=== PATIENT | female | born 1950 | race Caucasian/White ===

== ENCOUNTER 2018-08-03 08:50 | Emergency (ER) | payer MEDICARE, BC, SELFPAY ==
[2018-08-03 08:54] VITALS: BP 116/44; PULSE 84; RESP 18; TEMP 36.5; O2SAT 90
--- NOTE | 2018-08-03 09:29 | DI.RAD_ITS ---
SYMPTOM/DIAGNOSIS: COUGH, SOB, ? PNEUMONIA CHEST: Comparison is made with 03/11/18. The heart size and pulmonary vasculature are within normal limits. Increased lung markings are present in the right base. This may represent atelectasis or developing pneumonia. The lungs are otherwise clear. The lungs are hyperinflated consistent with underlying COPD. No effusions or pneumothoraces are identified. The bones are intact. IMPRESSION: Question of a new right basilar infiltrate.
--- NOTE | 2018-08-03 09:30 | W.ED.GENAD ---
Discharge Plan Disposition Patient Disposition: HOME Condition: Improving Discharge Details Chief Complaint: RespSymp Clinical Impression: Pneumonia Primary Care Provider: María Mendoza ED Provider: Roxana Whittington Home Meds and New Rx's Prescriptions: New prednisone 50 mg tablet 50 mg PO DAILY 2 Days Qty: 2 RF: 0 levofloxacin [Levaquin] 750 mg tablet 750 mg PO DAILY 4 Days Qty: 4 RF: 0 Continue cetirizine 10 mg tablet 10 mg PO DAILY Qty: 90 RF: 3 methylprednisolone [Medrol (José)] 4 mg tablets,dose pack See Label Instructions .Route .COMPLEX Qty: 21 RF: 0 cyclobenzaprine 5 mg tablet 5 mg PO TID PRN (Reason: muscle spasm) Qty: 20 RF: 0 Oxygen EACH NS At Night Qty: 2 RF: 0 multivitamin [Daily Multi-Vitamin] 1 EACH tablet 1 ea PO DAILY RF: 0 lidocaine [LC-5] 45 GM cream 1 film Topical 2-4 times daily PRN Qty: 1 RF: 3 albuterol sulfate [ProAir HFA] 8.5 GM HFA aerosol inhaler 1 puff Inhalation Q4H PRN Qty: 2 RF: 3 Lactobac #2-Bifido #1-S. therm [VSL#3] 1 EACH capsule 2 packet PO DAILY Qty: 60 RF: 0 hydrochlorothiazide 50 MG tablet 50 mg PO QAM Qty: 90 RF: 3 lancets [Sure Comfort Lancets] 1 EACH misc 1 ea Miscellaneous DAILY Qty: 1 RF: 3 acetaminophen 500 MG tablet 1,000 mg PO TID PRNQty: 90 RF: 0 budesonide-formoterol [Symbicort] 10.2 GM HFA aerosol inhaler 2 puff Inhalation BID Qty: 3 RF: 3 zinc oxide 28 GM ointment 28 gm Topical QID Qty: 1 RF: 1 empagliflozin [Jardiance] 10 MG tablet 10 mg PO DAILY Qty: 90 RF: 3 calcium carbonate-vitamin D3 1 EACH tablet 2 tab-cap PO DAILY Qty: 180 RF: 3 magnesium oxide 400 MG tablet 800 mg PO BID Qty: 360 RF: 3 montelukast [Singulair] 10 MG tablet 10 mg PO DAILY Qty: 90 RF: 3 Varicella-Zoster Ge/As01b/Pf [Shingrix Vial Kit] 50 MCG INJ 50 mcg IM ONCE Qty: 1 RF: 1 umeclidinium [Incruse Ellipta] 62.5 MCG blister with device 62.5 mcg Inhalation DAILY Qty: 3 RF: 3 irbesartan 300 MG tablet 300 mg PO DAILY Qty: 90 RF: 3 blood sugar diagnostic [FreeStyle Lite Strips] 1 EACH strip 1 ea Miscellaneous BID Qty: 180 RF: 3 cyanocobalamin (vitamin B-12) 1,000 mcg tablet 1,000 mcg PO DAILY Qty: 90 RF: 3 ferrous sulfate 325 mg (65 mg iron) tablet See Label Instructions PO .COMPLEX Qty: 270 RF: 3 rosuvastatin [Crestor] 20 mg tablet 20 mg PO DAILY Qty: 90 RF: 0 atenolol 100 mg tablet 100 mg PO DAILY Qty: 30 RF: 11 glipizide 10 mg tablet 10 mg PO AC MDD 15 mg Qty: 90 RF: 3 glipizide 5 mg tablet 5 mg PO AC MDD 15 mg Qty: 90 RF: 3 ipratropium-albuterol [Combivent Respimat] 20-100 mcg/actuation mist 1 - 2 puff Inhalation .Q4-6H PRN (Reason: shortness of breath or wheezing) Qty: 1 RF: 3 metformin 1,000 mg tablet 1,000 mg PO BID Qty: 180 RF: 3 omeprazole 20 mg capsule,delayed release(DR/EC) 20 mg PO DAILY Qty: 90 RF: 3 aspirin [Aspir-81] 81 MG tablet,delayed release (DR/EC) 81 mg PO DAILY Qty: 90 RF: 3 Discharge Instructions Instructions: Pneumonia (ED) Additional Instructions: Take the antibiotics and steroids until finished. Drink plenty of fluids and get plenty of rest. Use your inhalers that you have at home as needed and directed for any shortness of breath. Follow-up with your primary care doctor in 3 days for reevaluation. Return immediately to the emergency department any worsening or new concerning symptoms. Discharge Data Discharge Date/Time-TO BE ENTERED AT DEPARTURE: 08/03/18 10:54 Discharge Physician: Roxana Whittington Medical Decision Making 67-year-old female with a history of COPD on 3 L nasal cannula at night with a baseline oxygen saturation of 88-90% on room air presents for cough and body aches for the past week. Also admits to occasional shortness of breath. Denies any known fever or chest pain. No other DVT/PE risk factors. Admits to sick contacts with grandkids recently. Oxygen saturation 90-93% on room air. Scattered rhonchi throughout. No wheezing. Patient is nontoxic and in no acute respiratory distress but is noted to be coughing frequently. Will give a DuoNeb, p.o. prednisone, and send for chest x-ray. 1040 -- Pt feels much better and is requesting to go home. Lung sounds improved after DuoNeb. Oxygen saturation 88-90% which is patient's baseline on room air. Chest x-ray notes a right basilar bronchopneumonia. Patient is allergic to Zithromax. Due to comorbidities of COPD and diabetes, will treat with Levaquin. Patient was informed of the possible adverse side effects of Levaquin including tendon rupture and tendinopathy and is agreeable with plan for Levaquin at this time. Dose of Levaquin given here and prescription for home. Patient was also given 2 days more of prednisone. She was instructed to watch her sugar due to side effects of hyperglycemia with steroids. Patient is instructed to call her primary care doctor tomorrow to schedule follow-up appointment for reevaluation and to return here for worsening symptoms. Imaging Data Radiologic Study: Imaging: X-Ray Radiologist's impression: XR Chest, 2 Views EXAM DATE/TIME: 08/03/2018 9:31 AM CLINICAL HISTORY: 67 years old, female; Signs and symptoms; Other: Cough, SOB, R/O pneumonia TECHNIQUE: XR of the chest, 2 views. COMPARISON: CR CHEST 2 VIEWS PA,LAT 03/11/2018 2:58 PM FINDINGS: Lungs: Stable mild to moderate COPD . Mild right basilar bronchopneumonia which is new. Pleural space: Unremarkable. No pleural effusion. No pneumothorax. Heart/Mediastinum: Unremarkable. No cardiomegaly. Vasculature: Calcification of the thoracic aorta and/or great vessels consistent with atherosclerotic vessel disease. Bones/joints: Dextroscoliosis. IMPRESSION: 1. Stable mild to moderate COPD . 2. Mild right basilar bronchopneumonia which is new. HPI General Mode of arrival: ambulatory. Date/Time Provider Initiated Documentation: 08/03/18 09:18. Limitations to Documentation: no limitations. Information obtained by: patient. HPI Narrative: Patient is a 67-year-old female with a history of COPD on 3 L nasal cannula at nighttime with a baseline oxygen saturation of 88-90% on room air who presents for cough body aches for the past week. Patient states the cough started out dry and is now productive of green sputum. Patient states the cough is a symptom bothering her the most. She has been taking Tylenol and Robitussin. Patient admits to relief of body aches with the Tylenol. She denies any known fevers but states she has been hot and cold. She states she has been eating and drinking well. She denies any recent hospital admission, recent antibiotics, recent steroids, leg pain or swelling, recent surgery, or recent travel. She states she was exposed to her sick grandchildren at [facility] 10 days ago. Related Data Home Medications Medication Instructions Recorded Confirmed aspirin [Aspir-81] 81 mg PO DAILY #90 03/30/13 08/03/18 multivitamin [Daily Multi-Vitamin] 1 ea PO DAILY 03/19/17 08/03/18 lidocaine [LC-5] 1 film TOPICAL 2-4 times daily PRN 03/22/17 08/03/18 #1 tube albuterol sulfate [ProAir HFA] 1 puff INHALATION Q4H PRN #2 04/02/17 08/03/18 inhaler Lactobac #2-Bifido #1-S. therm 2 packet PO DAILY #60 packet 05/01/17 08/03/18 [VSL#3] hydrochlorothiazide 50 mg PO QAM #90 tab 06/12/17 08/03/18 lancets [Sure Comfort Lancets] #1 box 06/24/17 07/14/18 acetaminophen 1,000 mg PO TID PRN #90 tab-cap 12/16/17 08/03/18 budesonide-formoterol [Symbicort] 2 puff INHALATION BID #3 inhaler 12/16/17 08/03/18 zinc oxide 28 gm TOPICAL QID #1 tube 12/27/17 08/03/18 empagliflozin [Jardiance] 10 mg PO DAILY #90 tab-cap 02/19/18 08/03/18 calcium carbonate-vitamin D3 2 tab-cap PO DAILY #180 tab-cap 03/31/18 08/03/18 magnesium oxide 800 mg PO BID #360 tab-cap 03/31/18 08/03/18 montelukast [Singulair] 10 mg PO DAILY #90 tab-cap 03/31/18 08/03/18 umeclidinium [Incruse Ellipta] 62.5 mcg INHALATION DAILY #3 disk 04/02/18 08/03/18 irbesartan 300 mg PO DAILY #90 tab-cap 04/03/18 08/03/18 blood sugar diagnostic [FreeStyle #180 strip 04/24/18 07/14/18 Lite Strips] cyanocobalamin (vit B-12) 1,000 1,000 mcg PO DAILY #90 tab-cap 05/07/18 08/03/18 mcg tablet ferrous sulfate 325 mg (65 mg See Label Instructions PO .COMPLEX 05/08/18 08/03/18 iron) tablet #270 tab-cap rosuvastatin 20 mg tablet 20 mg PO DAILY #90 tab-cap 05/14/18 08/03/18 atenolol 100 mg tablet 100 mg PO DAILY #30 tab-cap 06/09/18 08/03/18 glipizide 10 mg tablet 10 mg PO AC #90 tab-cap MDD 15 mg 06/13/18 08/03/18 glipizide 5 mg tablet 5 mg PO AC #90 tab-cap MDD 15 mg 06/13/18 08/03/18 ipratropium 20 mcg-albuterol 100 1 - 2 puff INHALATION .Q4-6H PRN 06/19/18 08/03/18 mcg/actuation mist for inhalation #1 device cetirizine 10 mg tablet 10 mg PO DAILY #90 tab-cap 06/30/18 08/03/18 cyclobenzaprine 5 mg tablet 5 mg PO TID PRN #20 tab 07/14/18 07/14/18 methylprednisolone 4 mg tablets in See Label Instructions .ROUTE 07/14/18 08/03/18 a dose pack .COMPLEX #21 dose pk metformin 1,000 mg tablet 1,000 mg PO BID #180 tab-cap 07/21/18 08/03/18 omeprazole 20 mg capsule,delayed 20 mg PO DAILY #90 tab-cap 07/28/18 08/03/18 release levofloxacin [Levaquin] 750 mg PO DAILY 4 Days #4 tab 12/02/18 prednisone 50 mg PO DAILY 2 Days #2 tab 08/03/18 Previous Rx's Medication Instructions Recorded hydrochlorothiazide 50 mg PO QAM #90 tab 06/12/17 lancets [Sure Comfort Lancets] #1 box 06/24/17 budesonide-formoterol [Symbicort] 2 puff INHALATION BID #3 inhaler 12/16/17 zinc oxide 28 gm TOPICAL QID #1 tube 12/27/17 empagliflozin [Jardiance] 10 mg PO DAILY #90 tab-cap 02/19/18 calcium carbonate-vitamin D3 2 tab-cap PO DAILY #180 tab-cap 03/31/18 magnesium oxide 800 mg PO BID #360 tab-cap 03/31/18 montelukast [Singulair] 10 mg PO DAILY #90 tab-cap 03/31/18 umeclidinium [Incruse Ellipta] 62.5 mcg INHALATION DAILY #3 disk 04/02/18 irbesartan 300 mg PO DAILY #90 tab-cap 04/03/18 blood sugar diagnostic [FreeStyle #180 strip 04/24/18 Lite Strips] cyanocobalamin (vit B-12) 1,000 1,000 mcg PO DAILY #90 tab-cap 05/07/18 mcg tablet ferrous sulfate 325 mg (65 mg See Label Instructions PO .COMPLEX 05/08/18 iron) tablet #270 tab-cap rosuvastatin 20 mg tablet 20 mg PO DAILY #90 tab-cap 05/14/18 atenolol 100 mg tablet 100 mg PO DAILY #30 tab-cap 06/09/18 glipizide 10 mg tablet 10 mg PO AC #90 tab-cap MDD 15 mg 06/13/18 glipizide 5 mg tablet 5 mg PO AC #90 tab-cap MDD 15 mg 06/13/18 ipratropium 20 mcg-albuterol 100 1 - 2 puff INHALATION .Q4-6H PRN 06/19/18 mcg/actuation mist for inhalation #1 device cetirizine 10 mg tablet 10 mg PO DAILY #90 tab-cap 06/30/18 cyclobenzaprine 5 mg tablet 5 mg PO TID PRN #20 tab 07/14/18 methylprednisolone 4 mg tablets in See Label Instructions .ROUTE 07/14/18 a dose pack .COMPLEX #21 dose pk metformin 1,000 mg tablet 1,000 mg PO BID #180 tab-cap 07/21/18 omeprazole 20 mg capsule,delayed 20 mg PO DAILY #90 tab-cap 07/28/18 release levofloxacin [Levaquin] 750 mg PO DAILY 4 Days #4 tab 08/03/18 prednisone 50 mg PO DAILY 2 Days #2 tab 08/03/18 Allergies Allergy/AdvReac Type Severity Reaction Status Date / Time propylene glycol Allergy Severe Rash Verified 08/03/18 08:59 alendronate sodium Allergy Unknown Hives Verified 08/03/18 08:59 adhesive tape Allergy Skin Rash Verified 08/03/18 08:59 azithromycin AdvReac Intermediate dry heaves Verified 08/03/18 08:59 and diarrhea hydrocodone bitartrate AdvReac Intermediate Nausea Verified 08/03/18 08:59 [From Vicodin] oxycodone HCl [From Percocet] AdvReac Unknown NAUSEA/VOMI Verified 08/03/18 08:59 TING LANDON Inhibitors AdvReac COUGH,DYSPN Verified 08/03/18 08:59 EA fragranced creams Allergy Intermediate Skin Rash Uncoded 08/03/18 08:59 parabin wax Allergy Intermediate Skin Rash Uncoded 08/03/18 08:59 General Stated Complaint: RespSymp BRUNA: 3 Review of Systems Review of Systems All systems reviewed & are unremarkable except as noted in HPI and below Constitutional Reports body ache(s), Denies chills, Denies excessive sweating, Denies fatigue, Denies fever(s), Denies weakness and Denies weight loss Eyes Reports system reviewed and no additional complaints, except as docu and Denies blurry vision ENT Denies vertigo, Denies dizziness, Denies otalgia, Denies nasal congestion, Denies sore throat and Denies throat swelling Cardiovascular Denies chest pain, Denies syncope, Denies rapid heart rate and Reports dyspnea Respiratory Reports cough, Reports excessive phlegm production and Reports dyspnea Gastrointestinal Denies abdominal pain, Denies diarrhea and Denies vomiting Genitourinary Denies hematuria, Denies dysuria and Denies flank pain Musculoskeletal Denies back pain and Denies joint swelling Integumentary/Breasts Denies lesions and Denies rash Neurologic Denies behavioral changes, Denies confusion, Denies vertigo, Denies dizziness, Denies syncope and Denies weakness Psychiatric Denies behavioral changes, Denies confusion and Denies depression Endocrine Denies excessive sweating and Denies fatigue Hematologic/Lymphatic Denies easy bruising and Denies lymphadenopathy Allergic/Immunologic Denies throat swelling PFSH H/O laminectomy (Resolved) Allergic rhinitis Anemia Breast CA COPD (chronic obstructive pulmonary disease) HLD (hyperlipidemia) HTN (hypertension) Family History Sister Breast cancer Mother Alzheimer's dementia Father Alcohol abuse Cirrhosis Sister Neoplasm Sister Heart disease Brother Heart disease H/O laminectomy (Acute ~10/06/12) Biopsy, Lymph Node (~2003) Breast, Lumpectomy (~2003) Extraction of cataract Oophrectomy, Right (~2007) Tooth Extractions Family History Sister Breast cancer Mother Alzheimer's dementia Father Alcohol abuse Cirrhosis Sister Neoplasm Sister Heart disease Brother Heart disease Medical History H/O laminectomy (Resolved) Allergic rhinitis Anemia Breast CA COPD (chronic obstructive pulmonary disease) HLD (hyperlipidemia) HTN (hypertension) Social History adopted: No foster care: No household members: spouse number of children: 4 current occupational status: retired pets and animals: No frequency: 3-4 times per week duration: < 15 minutes/day Smoking/Tobacco Use Status: Former Tobacco Use quit date: 09/02/00 pack-years: 37 alcohol intake: former details: none substance use type: does not use jon/yazidism: Advent seatbelt use: always 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 working smoke detector in home: Yes fire extinguisher in home: Yes carbon monox detector in home: Yes Surgical History H/O laminectomy (Acute ~10/06/12) Biopsy, Lymph Node (~2003) Breast, Lumpectomy (~2003) Extraction of cataract Oophrectomy, Right (~2007) Tooth Extractions Social History adopted: No foster care: No household members: spouse number of children: 4 current occupational status: retired pets and animals: No frequency: 3-4 times per week duration: < 15 minutes/day Smoking/Tobacco Use Status: Former Tobacco Use quit date: 09/02/00 pack-years: 37 alcohol intake: former details: none substance use type: does not use jon/yazidism: Advent seatbelt use: always 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 working smoke detector in home: Yes fire extinguisher in home: Yes carbon monox detector in home: Yes Exam Const General: cooperative and healthy appearing Orientation: alert and awake HENMT Head: normal to inspection Ears: hearing grossly normal bilaterally, external ears normal and TM's normal bilaterally General nose exam: nasal discharge clear (some white) bilaterally Face and sinus: normal facial exam Mouth: oral mucosae normal Teeth and gingiva: dentition normal Throat: posterior oropharynx normal Eyes General: appearance normal, both eyes and all related structures Eyelids: eyelids normal EOM: EOM intact bilaterally Neck Neck: normal visual inspection Lymphatic: no lymphadenopathy noted Chest Chest: normal inspection of the chest Resp Effort & Inspection: normal respiratory effort and able to speak in complete sentences Auscultation: rhonchi upper bilaterally and lower bilaterally and no wheezes Cardio Rate: regular rate Rhythm: regular rhythm GI Inspection: normal to inspection Skin General skin exam: no rashes or lesions noted Neuro General: alert and awake Cognition: normal cognition Speech: speech normal Gait: normal gait Motor: muscle tone normal throughout Sensory Exam: no sensory deficits noted Extrem General: normal to inspection and full ROM Psych Appearance: grossly normal Mental Status: mental status grossly normal Speech and Movement: speech and movement normal Affect: normal affect Thought Process: normal Course Vital Signs Temperature 97.7 F 08/03/18 08:54 Pulse 84 08/03/18 08:54 Respiratory Rate 18 08/03/18 08:54 Blood Pressure 116/44 L 08/03/18 08:54 Pulse Oximetry 90 L 08/03/18 08:54 Temperature 97.7 F 08/03/18 08:54 Temperature Source Temporal Artery Scan 08/03/18 08:54 Pulse 84 08/03/18 08:54 Respiratory Rate 18 08/03/18 08:54 Respiratory Effort Non-Labored 08/03/18 09:23 Respiratory Depth Normal 08/03/18 09:23 Blood Pressure 116/44 L 08/03/18 08:54 Blood Pressure Position Sitting 08/03/18 08:54 Pulse Oximetry 90 L 08/03/18 08:54 Oxygen Delivery Method Room Air 08/03/18 08:54 Oxygen Flow Rate 0 08/03/18 08:54 Pain Level 0 08/03/18 08:54
[2018-08-03] MEDS: Albuterol/Ipratropium 3 ML UPD VIAL UPD (09:35)
[2018-08-03] MEDS: predniSONE 20 MG TAB 60 MG PO (09:36)
[2018-08-03 10:05] VITALS: RESP 1
--- NOTE | 2018-08-03 10:19 | DI.VRAD_ITS ---
EXAM: XR Chest, 2 Views EXAM DATE/TIME: 08/03/2018 9:31 AM CLINICAL HISTORY: 67 years old, female; Signs and symptoms; Other: Cough, SOB, R/O pneumonia TECHNIQUE: XR of the chest, 2 views. COMPARISON: CR CHEST 2 VIEWS PA,LAT 03/11/2018 2:58 PM FINDINGS: Lungs: Stable mild to moderate COPD . Mild right basilar bronchopneumonia which is new. Pleural space: Unremarkable. No pleural effusion. No pneumothorax. Heart/Mediastinum: Unremarkable. No cardiomegaly. Vasculature: Calcification of the thoracic aorta and/or great vessels consistent with atherosclerotic vessel disease. Bones/joints: Dextroscoliosis. IMPRESSION: 1. Stable mild to moderate COPD . 2. Mild right basilar bronchopneumonia which is new. Dictated and Authenticated by: Greyson Roland MD. Ordering:ZENAIDA OPE MD
[2018-08-03 10:33] VITALS: PULSE 94; O2SAT 88
[2018-08-03] MEDS: LEVOFLOXACIN 500 MG, LEVOFLOXACIN 250 MG 750 MG PO (10:43)
[2018-08-03 10:46] VITALS: BP 108/48
== END 2018-08-03 10:54 | disposition home or self-care (01) ==
LOC: ER 10:58
PROVIDERS: Emergency Provider Physician Assistant; PCP Nurse Practitioner Family
DX: J18.9 Pneumonia, unspecified organism (principal); J44.9 Chronic obstructive pulmonary disease, unspecified; Z87.891 Personal history of nicotine dependence; E11.9 Type 2 diabetes mellitus without complications; Z79.84 Long term (current) use of oral hypoglycemic drugs; I10 Essential (primary) hypertension
CPT/HCPCS: 94640; 99283; 71046; J7512; J7620

== ENCOUNTER 2018-09-29 00:27 | Outpatient (CLI) | payer MEDICARE, BC, SELFPAY ==
--- NOTE | 2018-09-29 07:51 | DI.RAD_ITS ---
SYMPTOM/DIAGNOSIS: 8 WEEK F/U RT BASILAR PNA, PNEUMONIA J18.9 PA AND LATERAL CHEST: The heart size is normal. The lungs appear clear. No infiltrate or effusion is seen. There is an old fracture in the upper lumbar spine. IMPRESSION: Clearing of previously noted infiltrate.
[2018-09-29 09:10] LABS: Absolute Basophil Count 0.01 k/cumm (0.0-0.2); Absolute Eosinophil Count 0.14 k/cumm (0.0-0.7); Absolute Lymphocyte Count 0.75 k/cumm (1.2-3.4); Absolute Monocyte Count 0.31 k/cumm (0.11-0.7); Absolute Neutrophil Count 2.67 k/cumm (1.2-6.7); Basophils % 0.3; Eosinophils % 3.6; HCT 39.1 % (36.0-46.0); HGB 11.9 g/dL (12.0-15.5); Lymphocytes % 19.3; Mean Corp. HGB Concentration 30.4 g/dL (32.0-36.0); Mean Corpuscular Hemoglobin 29.1 pg (27.0-33.0); Mean Corpuscular Volume 95.6 fL (80-95); Mean Platelet Volume 8.6 fL (8.0-11.0); Neutrophils % 68.8; Platelet Count 297 x1000/uL (130-400); RBC 4.09 m/cumm (4.00-5.20); RBC Distribution Width 15.2 % (11.7-14.6); White Blood Cell Count 3.88 k/cumm (4.4-10.8)
[2018-09-29 09:44] LABS: Hemoglobin A1C 7.5 % (4.5-6.2)
[2018-09-29 09:52] LABS: COMMENT (LAB VIEW ONLY) 75.98 mg/dL; Microalb ug/mg Crea 31.7 ug/mg Cr
[2018-09-29 10:09] LABS: ALT 26 U/L (12-78); AST 18 U/L (15-37); Albumin 3.5 g/dL (3.4-5.0); Alkaline Phosphatase 58 U/L (46-116); BUN 20 mg/dL (7-18); Bilirubin, Total 0.4 mg/dL (0.2-1.0); Calcium 9.5 mg/dL (8.5-10.1); Chloride 100 mmol/L (98-107); Cholesterol 122 mg/dL (50-200); Estimated GFR 49.25 (mL/min/1.73m2); Glucose 132 mg/dL (70-100); HDL Cholesterol 64 mg/dL (40-60); LDL CHOLESTEROL 40 mg/dL (<100); Potassium 4.4 mmol/L (3.5-5.1); Sodium 139 mmol/L (136-145); Total Protein 7.1 g/dL (6.4-8.2); Triglyceride 171 mg/dL (30-150)
== END 2018-09-29 00:47 ==
PROVIDERS: PCP Nurse Practitioner Family; Visit Provider Nurse Practitioner Family
DX: D50.9 Iron deficiency anemia, unspecified (principal); E11.22 Type 2 diabetes mellitus with diabetic chronic kidney disease; E78.5 Hyperlipidemia, unspecified; J18.9 Pneumonia, unspecified organism
CPT/HCPCS: 36415; 80053; 80061; 83721; 71046; 82043; 82570; 83036; 85025

== ENCOUNTER 2018-10-01 09:28 | Outpatient (CLI) | payer MEDICARE, BC, SELFPAY ==
[2018-10-01 18:37] LABS: Vitamin B12 431 pg/mL (193-986)
[2018-10-02 10:10] LABS: Folate >24.0 ng/ml
[2018-10-04 16:18] LABS: Erythropoietin 63.5 mIU/mL (2.6 - 18.5)
== END 2018-10-01 09:48 ==
PROVIDERS: PCP Nurse Practitioner Family; Visit Provider Nurse Practitioner Family
DX: D53.9 Nutritional anemia, unspecified (principal); D50.9 Iron deficiency anemia, unspecified
CPT/HCPCS: 36415; 82668; 82607; 82746

== ENCOUNTER 2018-10-13 00:59 | Outpatient (CLI) | payer MEDICARE, BC, SELFPAY ==
--- NOTE | 2018-10-13 11:00 | DI.MAMMO_ITS ---
SYMPTOM/DIAGNOSIS: SCREENING, Z12.31, PERSONAL H/O BREAST CA Z85.3 MAMMOGRAMS: Comparison with prior examinations. Mammograms were interpreted according to the usual protocol including computer analysis with CAD system, tomosynthesis and C view imaging. Breast density B, no suspicious masses or microcalcifications are seen. There has been no significant change when compared to the prior examination. The patient is status post bilateral breast cancer. IMPRESSION: No evidence for malignancy. Yearly mammography is recommended. Category 2-B. MQSA ASSESSMENT OF FINDINGS: Negative with benign findings. Category 2. Patient will receive a letter notifying them of these results. BI-RADS category B. There are scattered areas of fibroglandular density.
== END 2018-10-13 01:19 ==
PROVIDERS: PCP Nurse Practitioner Family; Visit Provider Nurse Practitioner Family
DX: Z12.31 Encounter for screening mammogram for malignant neoplasm of breast (principal); Z85.3 Personal history of malignant neoplasm of breast
CPT/HCPCS: 77063; 77067

== ENCOUNTER 2019-01-19 13:55 | Outpatient (CLI) | payer MEDICARE, BC, SELFPAY ==
[2019-01-19 14:20] LABS: Absolute Basophil Count 0.03 k/cumm (0.0-0.2); Absolute Lymphocyte Count 1.13 k/cumm (1.2-3.4); Absolute Monocyte Count 0.39 k/cumm (0.11-0.7); Absolute Neutrophil Count 2.58 k/cumm (1.2-6.7); Basophils % 0.7; Eosinophils % 4.6; HCT 35.3 % (36.0-46.0); HGB 11.3 g/dL (12.0-15.5); Lymphocytes % 26.1; Mean Corpuscular Hemoglobin 30.6 pg (27.0-33.0); Mean Corpuscular Volume 95.7 fL (80-95); Mean Platelet Volume 8.2 fL (8.0-11.0); Neutrophils % 59.6; Platelet Count 281 x1000/uL (130-400); RBC 3.69 m/cumm (4.00-5.20); RBC Distribution Width 15.3 % (11.7-14.6); Reticulocyte 1.9 % (0.5-2.4); White Blood Cell Count 4.33 k/cumm (4.4-10.8)
== END 2019-01-19 14:15 ==
PROVIDERS: PCP Nurse Practitioner Family; Visit Provider Nurse Practitioner Family
DX: D64.9 Anemia, unspecified (principal); D50.9 Iron deficiency anemia, unspecified
CPT/HCPCS: 85025; 85045

== ENCOUNTER 2019-02-15 09:06 | Emergency (ER) | payer MEDICARE, BC, SELFPAY ==
--- NOTE | 2019-02-15 09:12 | W.ED.GENAD ---
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 Clinical Impression: Vulvovaginitis Primary Care Provider: María Mendoza ED Provider: Debi Sylvester Home Meds and New Rx's Prescriptions: New fluconazole 150 mg tablet 150 mg PO ONCE Qty: 2 RF: 0 Continued Incruse Ellipta 62.5 mcg/actuation blister with device 62.5 mcg Inhalation DAILY Qty: 3 RF: 3 rosuvastatin [Crestor] 20 mg tablet 20 mg PO DAILY Qty: 90 RF: 3 cetirizine 10 mg tablet 10 mg PO DAILY Qty: 90 RF: 3 ferrous sulfate 325 mg (65 mg iron) tablet See Rx Instructions PO .COMPLEX Qty: 270 RF: 3 cyclobenzaprine 5 mg tablet 5 mg PO TID PRN (Reason: muscle spasm) Qty: 20 RF: 0 nebulizer and compressor device .ROUTE .MEDSUPPLY Qty: 1 RF: 0 albuterol sulfate 2.5 mg /3 mL (0.083 %) solution for nebulization 2.5 mg IH QID PRN (Reason: bronchospasm) Qty: 180 RF: 6 Jardiance 25 mg tablet 25 mg PO DAILY AM Qty: 90 RF: 3 betamethasone dipropionate 0.05 % ointment 1 applic TP BID PRN (Reason: rash) Qty: 45 RF: 1 Oxygen EACH NS At Night Qty: 2 RF: 0 multivitamin [Daily Multi-Vitamin] 1 EACH tablet 1 ea PO DAILY RF: 0 lidocaine [LC-5] 45 GM cream 1 film Topical 2-4 times daily PRN Qty: 1 RF: 3 albuterol sulfate [ProAir HFA] 8.5 GM HFA aerosol inhaler 1 puff Inhalation Q4H PRN Qty: 2 RF: 3 VSL#3 1 EACH capsule 2 packet PO DAILY Qty: 60 RF: 0 lancets [Sure Comfort Lancets] 1 EACH misc 1 ea Miscellaneous DAILY Qty: 1 RF: 3 acetaminophen 500 MG tablet 1,000 mg PO TID PRNQty: 90 RF: 0 zinc oxide 28 GM ointment 28 gm Topical QID Qty: 1 RF: 1 calcium carbonate-vitamin D3 1 EACH tablet 2 tab-cap PO DAILY Qty: 180 RF: 3 magnesium oxide 400 MG tablet 800 mg PO BID Qty: 360 RF: 3 montelukast [Singulair] 10 MG tablet 10 mg PO DAILY Qty: 90 RF: 3 Varicella-Zoster Ge/As01b/Pf [Shingrix Vial Kit] 50 MCG INJ 50 mcg IM ONCE Qty: 1 RF: 1 FreeStyle Lite Strips 1 EACH strip 1 ea Miscellaneous BID Qty: 180 RF: 3 cyanocobalamin (vitamin B-12) 1,000 mcg tablet 1,000 mcg PO DAILY Qty: 90 RF: 3 atenolol 100 mg tablet 100 mg PO DAILY Qty: 30 RF: 11 metformin 1,000 mg tablet 1,000 mg PO BID Qty: 180 RF: 3 omeprazole 20 mg capsule,delayed release(DR/EC) 20 mg PO DAILY Qty: 90 RF: 3 hydrochlorothiazide 50 mg tablet 50 mg PO QAM Qty: 90 RF: 3 Symbicort 160-4.5 mcg/actuation HFA aerosol inhaler 2 puff Inhalation BID Qty: 3 RF: 3 Combivent Respimat 20-100 mcg/actuation mist 1 - 2 puff Inhalation .Q4-6H PRN (Reason: shortness of breath or wheezing) Qty: 3 RF: 3 glipizide 10 mg tablet See Rx Instructions PO AC MDD 25 mg Qty: 180 RF: 3 fluocinonide 0.05 % solution 1 applic TP BID Qty: 20 RF: 0 glipizide 5 mg tablet 5 mg PO QAM Qty: 90 RF: 3 valsartan 320 mg tablet 320 mg PO DAILY Qty: 90 RF: 3 aspirin [Aspir-81] 81 MG tablet,delayed release (DR/EC) 81 mg PO DAILY Qty: 90 RF: 3 Discharge Instructions Instructions: Vaginitis (ED) Additional Instructions: Encourage hydration. Please avoid irritants to the external genitalia, you may use barrier cream if you find this helpful but please use non-fragrance creams, read the ingredients carefully regarding your allergies. Please take fluconazole as prescribed. Please follow-up with primary care at the end of the week for reevaluation. If you develop fever/chills, abdominal pain or other new/worsening symptoms please seek care urgently once again Referrals: María Mendoza NP [Primary Care Provider] - Discharge Data Discharge Date/Time-TO BE ENTERED AT DEPARTURE: 02/15/19 10:01 Medical Decision Making Patient is a 68-year-old female presenting today with chief complaint of vulvovaginitis. Reports that she is had a multitude of yeast infections in the past, last of which question 1 year ago. Reports she is tried [id number] treatment thus far has been unsuccessful. States that she has been allergic to some of their components and is felt that these have made her symptoms worse. States she has had some white discharge but is also been using a thick white-cream externally and is concerned that she may not be visualized this appropriately. Denies any abdominal pain. No fevers or chills. No dysuria. No change in urinary or bowel habits. States that she has failed topical therapy historically and has had to go to oral therapy. Feels that this feels the same as previous yeast infections but has less discharge. Will preform exam. VS 36.4*C, 89%RA (baseline for patient secondary to COPD), 66P, 144/55. Abdomen is benign she appears nontoxic. External labia is quite inflamed. It is tender to palpation, she cannot tolerate intravaginal exam. There is a scant amount of white discharge at the vaginal opening. This was swabbed and sent for vaginal pack screening. I did discuss with the patient that she may be a good candidate for topical estrogen therapy. She will follow-up with her primary care at the end of the week for reevaluation and discuss this further. Patient will be placed on oral fluconazole. She prefers empiric treatment at this time over staying for pathology results. Encourage hydration. She was given strict return precautions. Advised to follow-up with primary care this week if not improving. All other questions and concerns were addressed and she is in agreement this plan. Patient does have multiple allergies, particularly topical substances, advised that this also may be playing part in her external irritation and advised that she try something more benign should she feel that she needs a cream externally HPI General Mode of arrival: ambulatory. Date/Time Provider Initiated Documentation: 02/15/19 09:11. Limitations to Documentation: no limitations. Information obtained by: patient and RN notes reviewed. History of Present Illness 68 year old F presents to the emergency department with the chief complaint of vulvovaginitis, described as moderate (denies pain, endorses itching and irritation), and is localized to the genitals. Patient reports no radiation. Patient started experiencing this day(s) (4) and it has been constant. No relieving factors improve symptom(s), No exacerbating factors reported . Patient notes rash (has noted erythema); denies chest pain, cough, fever/chills, loss of appetite, nausea/vomiting, shortness of breath and weakness. Patient did receive the following treatments prior to arrival, other (OTC intravaginal treatment) Related Data Home Medications Medication Instructions Recorded Confirmed aspirin [Aspir-81] 81 mg PO DAILY #90 03/30/13 01/05/19 multivitamin [Daily Multi-Vitamin] 1 ea PO DAILY 03/19/17 01/05/19 lidocaine [LC-5] 1 film TOPICAL 2-4 times daily PRN 03/22/17 01/05/19 #1 tube albuterol sulfate [ProAir HFA] 1 puff INHALATION Q4H PRN #2 04/02/17 01/05/19 inhaler VSL#3 2 packet PO DAILY #60 packet 05/01/17 01/05/19 lancets [Sure Comfort Lancets] #1 box 06/24/17 01/05/19 acetaminophen 1,000 mg PO TID PRN #90 tab-cap 12/16/17 01/05/19 zinc oxide 28 gm TOPICAL QID #1 tube 12/27/17 01/05/19 calcium carbonate-vitamin D3 2 tab-cap PO DAILY #180 tab-cap 03/31/18 01/05/19 magnesium oxide 800 mg PO BID #360 tab-cap 03/31/18 01/05/19 montelukast [Singulair] 10 mg PO DAILY #90 tab-cap 03/31/18 01/05/19 FreeStyle Lite Strips #180 strip 04/24/18 01/05/19 cyanocobalamin (vit B-12) 1,000 1,000 mcg PO DAILY #90 tab-cap 05/07/18 01/05/19 mcg tablet atenolol 100 mg tablet 100 mg PO DAILY #30 tab-cap 06/09/18 01/05/19 cetirizine 10 mg tablet 10 mg PO DAILY #90 tab-cap 06/30/18 01/05/19 cyclobenzaprine 5 mg tablet 5 mg PO TID PRN #20 tab 07/14/18 01/05/19 metformin 1,000 mg tablet 1,000 mg PO BID #180 tab-cap 07/21/18 01/05/19 omeprazole 20 mg capsule,delayed 20 mg PO DAILY #90 tab-cap 07/28/18 01/05/19 release hydrochlorothiazide 50 mg tablet 50 mg PO QAM #90 tab 08/11/18 01/05/19 albuterol sulfate 2.5 mg/3 mL 2.5 mg IH QID PRN #180 ml 08/21/18 01/05/19 (0.083 %) solution for nebulization nebulizer and compressor #1 each 08/21/18 01/05/19 ferrous sulfate 325 mg (65 mg See Rx Instructions PO .COMPLEX 10/01/18 01/05/19 iron) tablet #270 tab-cap budesonide-formoterol HFA 160 2 puff INHALATION BID #3 inhaler 10/15/18 01/05/19 mcg-4.5 mcg/actuation aerosol inhaler ipratropium 20 mcg-albuterol 100 1 - 2 puff INHALATION .Q4-6H PRN 10/17/18 01/05/19 mcg/actuation mist for inhalation #3 device glipizide 10 mg tablet See Rx Instructions PO AC #180 10/27/18 01/05/19 tab-cap MDD 25 mg betamethasone dipropionate 0.05 % 1 applic TP BID PRN #45 gm 11/26/18 01/05/19 topical ointment fluocinonide 0.05 % topical 1 applic TP BID #20 ml 12/01/18 01/05/19 solution empagliflozin 25 mg tablet 25 mg PO DAILY AM #90 tab-cap 01/05/19 01/05/19 glipizide 5 mg tablet 5 mg PO QAM #90 tab 01/09/19 rosuvastatin 20 mg tablet 20 mg PO DAILY #90 tab-cap 01/19/19 01/19/19 umeclidinium 62.5 mcg/actuation 62.5 mcg INHALATION DAILY #3 disk 01/19/19 01/19/19 blister powder for inhalation valsartan 320 mg tablet 320 mg PO DAILY #90 tab-cap 01/29/19 fluconazole 150 mg PO ONCE #2 tab 02/15/19 Previous Rx's Medication Instructions Recorded lancets [Sure Comfort Lancets] #1 box 06/24/17 zinc oxide 28 gm TOPICAL QID #1 tube 12/27/17 calcium carbonate-vitamin D3 2 tab-cap PO DAILY #180 tab-cap 03/31/18 magnesium oxide 800 mg PO BID #360 tab-cap 03/31/18 montelukast [Singulair] 10 mg PO DAILY #90 tab-cap 03/31/18 FreeStyle Lite Strips #180 strip 04/24/18 cyanocobalamin (vit B-12) 1,000 1,000 mcg PO DAILY #90 tab-cap 05/07/18 mcg tablet atenolol 100 mg tablet 100 mg PO DAILY #30 tab-cap 06/09/18 cetirizine 10 mg tablet 10 mg PO DAILY #90 tab-cap 06/30/18 cyclobenzaprine 5 mg tablet 5 mg PO TID PRN #20 tab 07/14/18 metformin 1,000 mg tablet 1,000 mg PO BID #180 tab-cap 07/21/18 omeprazole 20 mg capsule,delayed 20 mg PO DAILY #90 tab-cap 07/28/18 release hydrochlorothiazide 50 mg tablet 50 mg PO QAM #90 tab 08/11/18 albuterol sulfate 2.5 mg/3 mL 2.5 mg IH QID PRN #180 ml 08/21/18 (0.083 %) solution for nebulization nebulizer and compressor #1 each 08/21/18 ferrous sulfate 325 mg (65 mg See Rx Instructions PO .COMPLEX 10/01/18 iron) tablet #270 tab-cap budesonide-formoterol HFA 160 2 puff INHALATION BID #3 inhaler 10/15/18 mcg-4.5 mcg/actuation aerosol inhaler ipratropium 20 mcg-albuterol 100 1 - 2 puff INHALATION .Q4-6H PRN 10/17/18 mcg/actuation mist for inhalation #3 device glipizide 10 mg tablet See Rx Instructions PO AC #180 10/27/18 tab-cap MDD 25 mg betamethasone dipropionate 0.05 % 1 applic TP BID PRN #45 gm 11/26/18 topical ointment fluocinonide 0.05 % topical 1 applic TP BID #20 ml 12/01/18 solution empagliflozin 25 mg tablet 25 mg PO DAILY AM #90 tab-cap 01/05/19 glipizide 5 mg tablet 5 mg PO QAM #90 tab 01/09/19 rosuvastatin 20 mg tablet 20 mg PO DAILY #90 tab-cap 01/19/19 umeclidinium 62.5 mcg/actuation 62.5 mcg INHALATION DAILY #3 disk 01/19/19 blister powder for inhalation valsartan 320 mg tablet 320 mg PO DAILY #90 tab-cap 01/29/19 fluconazole 150 mg PO ONCE #2 tab 02/15/19 Allergies Allergy/AdvReac Type Severity Reaction Status Date / Time propylene glycol Allergy Severe Rash Verified 11/26/18 10:01 adhesive tape Allergy Unknown Skin Rash Verified 11/26/18 10:01 alendronate sodium Allergy Unknown Hives Verified 11/26/18 10:01 azithromycin AdvReac Intermediate dry heaves Verified 11/26/18 10:01 and diarrhea hydrocodone bitartrate AdvReac Intermediate Nausea Verified 11/26/18 10:01 [From Vicodin] LANDON Inhibitors AdvReac Unknown COUGH,DYSPN Verified 11/26/18 10:01 EA oxycodone HCl [From Percocet] AdvReac Unknown NAUSEA/VOMI Verified 11/26/18 10:01 TING fragranced creams Allergy Intermediate Skin Rash Uncoded 11/26/18 10:01 parabin wax Allergy Intermediate Skin Rash Uncoded 11/26/18 10:01 General BRUNA: 3 Review of Systems Constitutional Reports as per HPI, Denies chills, Denies fatigue, Denies fever(s) and Denies headache(s) ENT Denies headache(s) Cardiovascular Reports as per HPI, Denies chest pain and Denies dyspnea Respiratory Reports as per HPI, Denies cough and Denies dyspnea Gastrointestinal Reports as per HPI, Denies abdominal pain, Denies change in stool character, Denies nausea and Denies vomiting Musculoskeletal Reports as per HPI and Denies back pain Integumentary/Breasts Reports as per HPI, Reports pruritus (vaginal), Reports erythema (external genitalia) and Denies rash Neurologic Reports as per HPI and Denies headache(s) Endocrine Denies fatigue [facility] Medical History Family history of breast cancer (Acute 11/14/15) Microalbuminuria due to type 2 diabetes mellitus (Chronic) Breast cancer (Resolved) Spinal stenosis (Chronic 02/04/14) Obstructive sleep apnea (Chronic 03/02/14) Reflux esophagitis (Chronic 07/16/12) Osteopenia (Chronic 02/14/16) Leg cramps (Chronic 04/01/14) Left renal artery stenosis (Chronic 08/30/16) Iron deficiency anemia (Chronic 01/02/17) Intraabdominal calcification (Chronic 11/14/15) Hypomagnesemia (Chronic 03/04/17) Hyperlipidemia (Chronic 03/18/07) Hiatal hernia (Chronic 02/11/14) Heart murmur (Chronic) Essential hypertension (Chronic 05/16/04) Diabetes mellitus (Chronic 11/27/04) DJD (degenerative joint disease) (Chronic 02/04/14) Coronary artery disease (Chronic 11/14/15) Chronic obstructive airway disease (Chronic 06/04/12) Chronic kidney disease (CKD) (Chronic) 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) Atherosclerosis of both carotid arteries (Chronic 11/12/16) Anemia (Chronic 02/11/14) Allergic rhinitis (Chronic) Headache (Chronic) Chronic GI bleeding (Chronic) Superior mesenteric artery stenosis (Chronic) Compression fracture of lumbar vertebra (Resolved 03/14/17) Depression (Resolved 11/30/02) H/O laminectomy (Resolved) Herniated lumbar intervertebral disc (Resolved 02/04/14) Pneumonia (Resolved) Solitary pulmonary nodule (Resolved 12/22/15) Breast CA Surgical History H/O laminectomy (Acute ~10/06/12) Biopsy, Lymph Node (Resolved ~2003) Breast, Lumpectomy (Resolved ~2003) Extraction of cataract (Resolved) Oophrectomy, Right (Resolved ~2007) Tooth Extractions (Resolved) Social History Smoking/Tobacco Use Status: Former Tobacco Use Quit Date: 09/02/00 Pack-years: 37 Tobacco: How many years used: 25 Alcohol Intake: former Details: none Drug use: Never Substance use type: does not use Adopted: No Caregiver/Support person: No Foster care: No Household members: spouse Number of Children: 4 Communication Needs: None Pets and animals: No Current gender identity: female What type of physical activity do you participate in: regular exercise Duration: < 15 minutes/day Frequency: 3-4 times per week Mell/Sabianist: Sikhism Seatbelt use: always Drive intox or ride w/intox commercial collections driver: No Working smoke detector in home: Yes Fire extinguisher in home: Yes Carbon monox detector in home: Yes Do you feel safe at home: Yes Do you feel safe in your relationship?: Yes Exam Const General: cooperative, healthy appearing, comfortable, no acute distress and well developed Nutritional Appearance: average body habitus and well nourished Orientation: alert and awake [facility] Head: normal to inspection Mouth: moist mucous membranes Resp Effort & Inspection: normal respiratory effort, able to speak in complete sentences and no respiratory distress Auscultation: clear to auscultation bilaterally, no rales, no rhonchi and no wheezes Cardio Rate: regular rate Rhythm: regular rhythm Heart Sounds: S1 normal and S2 normal GI Inspection: normal to inspection and non-distended Palpation: soft, no hepatosplenomegaly, no guarding, not rigid and nontender Percussion: normal to percussion Auscultation: normal bowel sounds External Female Exam: normal appearance of the urethra, erythema, externally tender bilaterally (diffuse tenderness, consistent with vulvovaginitis), external swelling, no lesions, no lacerations, no ecchymosis, No urethral discharge and No bartholin cyst Speculum Exam - Vagina: abnormal appearance of the vagina (patient unable to tolerate), No vaginal bleeding and other (patient has small amount of white fluid in vaginal opening) OB/External & Speculum: No vaginal bleeding Back/Spine/Pelvis Back: no CVA tenderness Skin General skin exam: no rashes or lesions noted Trauma: no lacerations or abrasions Neuro General: alert and awake Cognition: normal cognition Speech: speech normal Gait: normal gait Psych Appearance: grossly normal and well kempt Mental Status: mental status grossly normal Speech and Movement: speech and movement normal
--- NOTE | 2019-02-15 09:27 | ED.GENADUL_ITS ---
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 Clinical Impression: Vulvovaginitis Primary Care Provider: María Mendoza ED Provider: Debi Sylvester Home Meds and New Rx's Prescriptions: New fluconazole 150 mg tablet 150 mg PO ONCE Qty: 2 RF: 0 Continued Incruse Ellipta 62.5 mcg/actuation blister with device 62.5 mcg Inhalation DAILY Qty: 3 RF: 3 rosuvastatin [Crestor] 20 mg tablet 20 mg PO DAILY Qty: 90 RF: 3 cetirizine 10 mg tablet 10 mg PO DAILY Qty: 90 RF: 3 ferrous sulfate 325 mg (65 mg iron) tablet See Rx Instructions PO .COMPLEX Qty: 270 RF: 3 cyclobenzaprine 5 mg tablet 5 mg PO TID PRN (Reason: muscle spasm) Qty: 20 RF: 0 nebulizer and compressor device .ROUTE .MEDSUPPLY Qty: 1 RF: 0 albuterol sulfate 2.5 mg /3 mL (0.083 %) solution for nebulization 2.5 mg IH QID PRN (Reason: bronchospasm) Qty: 180 RF: 6 Jardiance 25 mg tablet 25 mg PO DAILY AM Qty: 90 RF: 3 betamethasone dipropionate 0.05 % ointment 1 applic TP BID PRN (Reason: rash) Qty: 45 RF: 1 Oxygen EACH NS At Night Qty: 2 RF: 0 multivitamin [Daily Multi-Vitamin] 1 EACH tablet 1 ea PO DAILY RF: 0 lidocaine [LC-5] 45 GM cream 1 film Topical 2-4 times daily PRN Qty: 1 RF: 3 albuterol sulfate [ProAir HFA] 8.5 GM HFA aerosol inhaler 1 puff Inhalation Q4H PRN Qty: 2 RF: 3 VSL#3 1 EACH capsule 2 packet PO DAILY Qty: 60 RF: 0 lancets [Sure Comfort Lancets] 1 EACH misc 1 ea Miscellaneous DAILY Qty: 1 RF: 3 acetaminophen 500 MG tablet 1,000 mg PO TID PRNQty: 90 RF: 0 zinc oxide 28 GM ointment 28 gm Topical QID Qty: 1 RF: 1 calcium carbonate-vitamin D3 1 EACH tablet 2 tab-cap PO DAILY Qty: 180 RF: 3 magnesium oxide 400 MG tablet 800 mg PO BID Qty: 360 RF: 3 montelukast [Singulair] 10 MG tablet 10 mg PO DAILY Qty: 90 RF: 3 Varicella-Zoster Ge/As01b/Pf [Shingrix Vial Kit] 50 MCG INJ 50 mcg IM ONCE Qty: 1 RF: 1 FreeStyle Lite Strips 1 EACH strip 1 ea Miscellaneous BID Qty: 180 RF: 3 cyanocobalamin (vitamin B-12) 1,000 mcg tablet 1,000 mcg PO DAILY Qty: 90 RF: 3 atenolol 100 mg tablet 100 mg PO DAILY Qty: 30 RF: 11 metformin 1,000 mg tablet 1,000 mg PO BID Qty: 180 RF: 3 omeprazole 20 mg capsule,delayed release(DR/EC) 20 mg PO DAILY Qty: 90 RF: 3 hydrochlorothiazide 50 mg tablet 50 mg PO QAM Qty: 90 RF: 3 Symbicort 160-4.5 mcg/actuation HFA aerosol inhaler 2 puff Inhalation BID Qty: 3 RF: 3 Combivent Respimat 20-100 mcg/actuation mist 1 - 2 puff Inhalation .Q4-6H PRN (Reason: shortness of breath or wheezing) Qty: 3 RF: 3 glipizide 10 mg tablet See Rx Instructions PO AC MDD 25 mg Qty: 180 RF: 3 fluocinonide 0.05 % solution 1 applic TP BID Qty: 20 RF: 0 glipizide 5 mg tablet 5 mg PO QAM Qty: 90 RF: 3 valsartan 320 mg tablet 320 mg PO DAILY Qty: 90 RF: 3 aspirin [Aspir-81] 81 MG tablet,delayed release (DR/EC) 81 mg PO DAILY Qty: 90 RF: 3 Discharge Instructions Instructions: Vaginitis (ED) Additional Instructions: Encourage hydration. Please avoid irritants to the external genitalia, you may use barrier cream if you find this helpful but please use non-fragrance creams, read the ingredients carefully regarding your allergies. Please take fluconazole as prescribed. Please follow-up with primary care at the end of the week for reevaluation. If you develop fever/chills, abdominal pain or other new/worsening symptoms please seek care urgently once again Referrals: María Mendoza NP [Primary Care Provider] - Discharge Data Discharge Date/Time-TO BE ENTERED AT DEPARTURE: 02/15/19 10:01 Medical Decision Making Patient is a 68-year-old female presenting today with chief complaint of vulvovaginitis. Reports that she is had a multitude of yeast infections in the past, last of which question 1 year ago. Reports she is tried [id number] treatment thus far has been unsuccessful. States that she has been allergic to some of their components and is felt that these have made her symptoms worse. States she has had some white discharge but is also been using a thick white- cream externally and is concerned that she may not be visualized this appropriately. Denies any abdominal pain. No fevers or chills. No dysuria. No change in urinary or bowel habits. States that she has failed topical therapy historically and has had to go to oral therapy. Feels that this feels the same as previous yeast infections but has less discharge. Will preform exam. VS 36.4*C, 89%RA (baseline for patient secondary to COPD), 66P, 144/55. Abdomen is benign she appears nontoxic. External labia is quite inflamed. It is tender to palpation, she cannot tolerate intravaginal exam. There is a scant amount of white discharge at the vaginal opening. This was swabbed and sent for vaginal pack screening. I did discuss with the patient that she may be a good candidate for topical estrogen therapy. She will follow-up with her primary care at the end of the week for reevaluation and discuss this further. Patient will be placed on oral fluconazole. She prefers empiric treatment at this time over staying for pathology results. Encourage hydration. She was given strict return precautions. Advised to follow-up with primary care this week if not improving. All other questions and concerns were addressed and she is in agreement this plan. Patient does have multiple allergies, particularly topical substances, advised that this also may be playing part in her external irritation and advised that she try something more benign should she feel that she needs a cream externally HPI General Mode of arrival: ambulatory . Date/Time Provider Initiated Documentation: 02/15/19 09:11 . Limitations to Documentation: no limitations . Information obtained by: patient and RN notes reviewed . History of Present Illness 68 year old F presents to the emergency department with the chief complaint of vulvovaginitis, described as moderate (denies pain, endorses itc farhat and irritation), and is localized to the genitals. Patient reports no radiation. Patient started experiencing this day(s) (4) and it has been constant. No relieving factors improve symptom(s), No exacerbating factors reported . Patient notes rash (has noted erythema); denies chest pain, cough, fever/chills, loss of appetite, nausea/vomiting, shortness of breath and weakness. Patient did receive the following treatments prior to arrival, other (OTC intravaginal treatment) Related Data Home Medications Medication Instructions Recorded Confirmed aspirin [Aspir-81] 81 mg PO DAILY #90 03/30/13 01/05/19 multivitamin [Daily Multi-Vitamin] 1 ea PO DAILY 03/19/17 01/05/19 lidocaine [LC-5] 1 film TOPICAL 2-4 times daily PRN 03/22/17 01/05/19 #1 tube albuterol sulfate [ProAir HFA] 1 puff INHALATION Q4H PRN #2 04/02/17 01/05/19 inhaler VSL#3 2 packet PO DAILY #60 packet 05/01/17 01/05/19 lancets [Sure Comfort Lancets] #1 box 06/24/17 01/05/19 acetaminophen 1,000 mg PO TID PRN #90 tab-cap 12/16/17 01/05/19 zinc oxide 28 gm TOPICAL QID #1 tube 12/27/17 01/05/19 calcium carbonate-vitamin D3 2 tab-cap PO DAILY #180 tab-cap 03/31/18 01/05/19 magnesium oxide 800 mg PO BID #360 tab-cap 03/31/18 01/05/19 montelukast [Singulair] 10 mg PO DAILY #90 tab-cap 03/31/18 01/05/19 FreeStyle Lite Strips #180 strip 04/24/18 01/05/19 cyanocobalamin (vit B-12) 1,000 1,000 mcg PO DAILY #90 tab-cap 05/07/18 01/05/19 mcg tablet atenolol 100 mg tablet 100 mg PO DAILY #30 tab-cap 06/09/18 01/05/19 cetirizine 10 mg tablet 10 mg PO DAILY #90 tab-cap 06/30/18 01/05/19 cyclobenzaprine 5 mg tablet 5 mg PO TID PRN #20 tab 07/14/18 01/05/19 metformin 1,000 mg tablet 1,000 mg PO BID #180 tab-cap 07/21/18 01/05/19 omeprazole 20 mg capsule,delayed 20 mg PO DAILY #90 tab-cap 07/28/18 01/05/19 release hydrochlorothiazide 50 mg tablet 50 mg PO QAM #90 tab 08/11/18 01/05/19 albuterol sulfate 2.5 mg/3 mL 2.5 mg IH QID PRN #180 ml 08/21/18 01/05/19 (0.083 %) solution for nebulization nebulizer and compressor #1 each 08/21/18 01/05/19 ferrous sulfate 325 mg (65 mg See Rx Instructions PO .COMPLEX 10/01/18 01/05/19 iron) tablet #270 tab-cap budesonide-formoterol HFA 160 2 puff INHALATION BID #3 inhaler 10/15/18 01/05/19 mcg-4.5 mcg/actuation aerosol inhaler ipratropium 20 mcg-albuterol 100 1 - 2 puff INHALATION .Q4-6H PRN 10/17/18 01/05/19 mcg/actuation mist for inhalation #3 device glipizide 10 mg tablet See Rx Instructions PO AC #180 10/27/18 01/05/19 tab-cap MDD 25 mg betamethasone dipropionate 0.05 % 1 applic TP BID PRN #45 gm 11/26/18 01/05/19 topical ointment fluocinonide 0.05 % topical 1 applic TP BID #20 ml 12/01/18 01/05/19 solution empagliflozin 25 mg tablet 25 mg PO DAILY AM #90 tab-cap 01/05/19 01/05/19 glipizide 5 mg tablet 5 mg PO QAM #90 tab 01/09/19 rosuvastatin 20 mg tablet 20 mg PO DAILY #90 tab-cap 01/19/19 01/19/19 umeclidinium 62.5 mcg/actuation 62.5 mcg INHALATION DAILY #3 disk 01/19/19 01/19/19 blister powder for inhalation valsartan 320 mg tablet 320 mg PO DAILY #90 tab-cap 01/29/19 fluconazole 150 mg PO ONCE #2 tab 02/15/19 Previous Rx's Medication Instructions Recorded lancets [Sure Comfort Lancets] #1 box 06/24/17 zinc oxide 28 gm TOPICAL QID #1 tube 12/27/17 calcium carbonate-vitamin D3 2 tab-cap PO DAILY #180 tab-cap 03/31/18 magnesium oxide 800 mg PO BID #360 tab-cap 03/31/18 montelukast [Singulair] 10 mg PO DAILY #90 tab-cap 03/31/18 FreeStyle Lite Strips #180 strip 04/24/18 cyanocobalamin (vit B-12) 1,000 1,000 mcg PO DAILY #90 tab-cap 05/07/18 mcg tablet atenolol 100 mg tablet 100 mg PO DAILY #30 tab-cap 06/09/18 cetirizine 10 mg tablet 10 mg PO DAILY #90 tab-cap 06/30/18 cyclobenzaprine 5 mg tablet 5 mg PO TID PRN #20 tab 07/14/18 metformin 1,000 mg tablet 1,000 mg PO BID #180 tab-cap 07/21/18 omeprazole 20 mg capsule,delayed 20 mg PO DAILY #90 tab-cap 07/28/18 release hydrochlorothiazide 50 mg tablet 50 mg PO QAM #90 tab 08/11/18 albuterol sulfate 2.5 mg/3 mL 2.5 mg IH QID PRN #180 ml 08/21/18 (0.083 %) solution for nebulization nebulizer and compressor #1 each 08/21/18 ferrous sulfate 325 mg (65 mg See Rx Instructions PO .COMPLEX 10/01/18 iron) tablet #270 tab-cap budesonide-formoterol HFA 160 2 puff INHALATION BID #3 inhaler 10/15/18 mcg-4.5 mcg/actuation aerosol inhaler ipratropium 20 mcg-albuterol 100 1 - 2 puff INHALATION .Q4-6H PRN 10/17/18 mcg/actuation mist for inhalation #3 device glipizide 10 mg tablet See Rx Instructions PO AC #180 10/27/18 tab-cap MDD 25 mg betamethasone dipropionate 0.05 % 1 applic TP BID PRN #45 gm 11/26/18 topical ointment fluocinonide 0.05 % topical 1 applic TP BID #20 ml 12/01/18 solution empagliflozin 25 mg tablet 25 mg PO DAILY AM #90 tab-cap 01/05/19 glipizide 5 mg tablet 5 mg PO QAM #90 tab 01/09/19 rosuvastatin 20 mg tablet 20 mg PO DAILY #90 tab-cap 01/19/19 umeclidinium 62.5 mcg/actuation 62.5 mcg INHALATION DAILY #3 disk 01/19/19 blister powder for inhalation valsartan 320 mg tablet 320 mg PO DAILY #90 tab-cap 01/29/19 fluconazole 150 mg PO ONCE #2 tab 02/15/19 Allergies Allergy/AdvReac Type Severity Reaction Status Date / Time propylene glycol Allergy Severe Rash Verified 11/26/18 10:01 adhesive tape Allergy Unknown Skin Rash Verified 11/26/18 10:01 alendronate sodium Allergy Unknown Hives Verified 11/26/18 10:01 azithromycin AdvReac Intermediate dry heaves Verified 11/26/18 10:01 and diarrhea hydrocodone bitartrate AdvReac Intermediate Nausea Verified 11/26/18 10:01 [From Vicodin] LANDON Inhibitors AdvReac Unknown COUGH,DYSPN Verified 11/26/18 10:01 EA oxycodone HCl [From Percocet] AdvReac Unknown NAUSEA/VOMI Verified 11/26/18 10:01 TING fragranced creams Allergy Intermediate Skin Rash Uncoded 11/26/18 10:01 parabin wax Allergy Intermediate Skin Rash Uncoded 11/26/18 10:01 General BRUNA: 3 Review of Systems Constitutional Reports as per HPI, Denies chills, Denies fatigue, Denies fever(s) and Denies headache(s) ENT Denies headache(s) Cardiovascular Reports as per HPI, Denies chest pain and Denies dyspnea Respiratory Reports as per HPI, Denies cough and Denies dyspnea Gastrointestinal Reports as per HPI, Denies abdominal pain, Denies change in stool character, Denies nausea and Denies vomiting Musculoskeletal Reports as per HPI and Denies back pain Integumentary/Breasts Reports as per HPI, Reports pruritus (vaginal), Reports erythema (external genitalia) and Denies rash Neurologic Reports as per HPI and Denies headache(s) Endocrine Denies fatigue [facility] Medical History Family history of breast cancer (Acute 11/14/15) Microalbuminuria due to type 2 diabetes mellitus (Chronic) Breast cancer (Resolved) Spinal stenosis (Chronic 02/04/14) Obstructive sleep apnea (Chronic 03/02/14) Reflux esophagitis (Chronic 07/16/12) Osteopenia (Chronic 02/14/16) Leg cramps (Chronic 04/01/14) Left renal artery stenosis (Chronic 08/30/16) Iron deficiency anemia (Chronic 01/02/17) Intraabdominal calcification (Chronic 11/14/15) Hypomagnesemia (Chronic 03/04/17) Hyperlipidemia (Chronic 03/18/07) Hiatal hernia (Chronic 02/11/14) Heart murmur (Chronic) Essential hypertension (Chronic 05/16/04) Diabetes mellitus (Chronic 11/27/04) DJD (degenerative joint disease) (Chronic 02/04/14) Coronary artery disease (Chronic 11/14/15) Chronic obstructive airway disease (Chronic 06/04/12) Chronic kidney disease (CKD) (Chronic) 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) Atherosclerosis of both carotid arteries (Chronic 11/12/16) Anemia (Chronic 02/11/14) Allergic rhinitis (Chronic) Headache (Chronic) Chronic GI bleeding (Chronic) Superior mesenteric artery stenosis (Chronic) Compression fracture of lumbar vertebra (Resolved 03/14/17) Depression (Resolved 11/30/02) H/O laminectomy (Resolved) Herniated lumbar intervertebral disc (Resolved 02/04/14) Pneumonia (Resolved) Solitary pulmonary nodule (Resolved 12/22/15) Breast CA Surgical History H/O laminectomy (Acute ~10/06/12) Biopsy, Lymph Node (Resolved ~2003) Breast, Lumpectomy (Resolved ~2003) Extraction of cataract (Resolved) Oophrectomy, Right (Resolved ~2007) Tooth Extractions (Resolved) Social History Smoking/Tobacco Use Status: Former Tobacco Use Quit Date: 09/02/00 Pack-years: 37 Tobacco: How many years used: 25 Alcohol Intake: former Details: none Drug use: Never Substance use type: does not use Adopted: No Caregiver/Support person: No Foster care: No Household members: spouse Number of Children: 4 Communication Needs: None Pets and animals: No Current gender identity: female What type of physical activity do you participate in: regular exercise Duration: < 15 minutes/day Frequency: 3-4 times per week Mell/Nondenominational: Buddhism Seatbelt use: always Drive intox or ride w/intox special events driver: No Working smoke detector in home: Yes Fire extinguisher in home: Yes Carbon monox detector in home: Yes Do you feel safe at home: Yes Do you feel safe in your relationship?: Yes Exam Const General: cooperative, healthy appearing, comfortable, no acute distress and well developed Nutritional Appearance: average body habitus and well nourished Orientation: alert and awake [facility] Head: normal to inspection Mouth: moist mucous membranes Resp Effort & Inspection: normal respiratory effort, able to speak in complete sentences and no respiratory distress Auscultation: clear to auscultation bilaterally, no rales, no rhonchi and no wheezes Cardio Rate: regular rate Rhythm: regular rhythm Heart Sounds: S1 normal and S2 normal GI Inspection: normal to inspection and non-distended Palpation: soft, no hepatosplenomegaly, no guarding, not rigid and nontender Percussion: normal to percussion Auscultation: normal bowel sounds External Female Exam: normal appearance of the urethra, erythema, externally tender bilaterally (diffuse tenderness, consistent with vulvovaginitis), external swelling, no lesions, no lacerations, no ecchymosis, No urethral discharge and No bartholin cyst Speculum Exam - Vagina: abnormal appearance of the vagina (patient unable to tolerate), No vaginal bleeding and other (patient has small amount of white fluid in vaginal opening) OB/External & Speculum: No vaginal bleeding Back/Spine/Pelvis Back: no CVA tenderness Skin General skin exam: no rashes or lesions noted Trauma: no lacerations or abrasions Neuro General: alert and awake Cognition: normal cognition Speech: speech normal Gait: normal gait Psych Appearance: grossly normal and well kempt Mental Status: mental status grossly normal Speech and Movement: speech and movement normal
[2019-02-15 09:51] VITALS: BP 144/55; PULSE 66; RESP 16; TEMP 36.4
[2019-02-15 09:52] VITALS: BP 124/60; PULSE 63; RESP 14; TEMP 36.4
== END 2019-02-15 10:01 | disposition home or self-care (01) ==
PROVIDERS: Emergency Provider Physician Assistant; PCP Nurse Practitioner Family
DX: N76.89 Other specified inflammation of vagina and vulva (principal); J44.9 Chronic obstructive pulmonary disease, unspecified; Z87.891 Personal history of nicotine dependence; E11.9 Type 2 diabetes mellitus without complications; Z79.84 Long term (current) use of oral hypoglycemic drugs
CPT/HCPCS: 99283; 87480; 87510; 87660

== ENCOUNTER 2019-06-04 06:52 | Inpatient (IN) | payer MEDICARE, BC, SELFPAY ==
[2019-06-04] VITALS (33 sets, daily range): BP systolic 99–158; BP diastolic 40–68; PULSE 67–84; RESP 8–32; TEMP 36.3–38.5; O2SAT 84–99
--- NOTE | 2019-06-04 07:07 | ED.GENADUL_ITS ---
Discharge Plan Disposition Patient Disposition: [facility] IN[facility]IENT Condition: Fair Discharge Details Chief Complaint: SOB Clinical Impression: CAP (community acquired pneumonia) Admit Date/Time: 06/04/19 08:32 Admit Provider: Quinton Aquino Attending Provider: Quinton Aquino Primary Care Provider: María Mendoza ED Provider: Johnny Silva Discharge Data Discharge Date/Time-TO BE ENTERED AT DEPARTURE: 06/04/19 09:13 Medical Decision Making <Michael Mueller MD - Last Filed: 06/04/19 20:46> Patient presents with 3-day history of not feeling well. Has worsening left scapular pain and cough the last 24 hours. Shortness of breath this morning. She is afebrile here. She is not tachycardic or hypotensive. She has a lung sounds suggesting pneumonia in the left base. Will place IV and get laboratory studies. Will start fluids. We will give a DuoNeb and Zofran. EKG is unremarkable. Chest x-ray has been ordered. Patient's laboratory studies unremarkable. White count is normal. Little bit of renal insufficiency. Lactic acid is 2. Saturations are 95% on a couple liters of oxygen. Chest x-ray per my review suggest increased markings in the left base and probably even in the right base. Radiology read pending. Troponin pending. Blood cultures and antibiotics ordered. Patient with a pneumonia severity index of 99 which gives her class IV. Case will be signed over to Dr. Silva who will wait for radiology read and troponin to come back and then call hospitalist for admission. Medical Records Medical records reviewed: Yes I reviewed the patient's medical records. ECG Data Attestation: I personally reviewed and interpreted this ECG (s) as follows: Prior ECG tracings: not available for review Interpretation: Normal sinus rhythm at 74. Normal axis and intervals. No acute ST changes. <Johnny Silva MD - Last Filed: 06/04/19 08:18> Patient with multi-focal patchy pneumonia per Dr. Merino. She remains pleasant but with a mild oxygen requirement. Blood cultures have been obtained, parenteral antibiotics administered. Will discuss admission with the admitting team. HPI <Michael Mueller MD - Last Filed: 06/04/19 20:46> General Mode of arrival: ambulatory . Date/Time Provider Initiated Documentation: 06/04/19 07:05 . Limitations to Documentation: no limitations . Information obtained by: patient, RN notes reviewed and old records reviewed . HPI Narrative: Patient presents to ED for evaluation of shortness of breath and left scapular pain. She has not felt well for 3 days. She reports headache, body ache, cough which is now productive of thick sputum. She has developed left scapular pain worse with cough and breathing. Cough worse over the last 24 hours. Pain worse this morning. Shortness of breath this morning more so with ambulation. She has nausea but no vomiting. She has had decreased oral intake due to not feeling well. She denies leg pain or leg swelling. She has no previous history of blood clots or cardiac disease. She does have a history of COPD as well as pneumonia in the past. She has felt hot and cold on and off but has not had a fever that she is aware of. Related Data Home Medications Medication Instructions Recorded Confirmed aspirin [Aspir-81] 81 mg PO DAILY #90 03/30/13 06/04/19 multivitamin [Daily Multi-Vitamin] 1 ea PO DAILY 03/19/17 06/04/19 albuterol sulfate [ProAir HFA] 1 puff INHALATION Q4H PRN #2 04/02/17 06/04/19 inhaler VSL#3 2 packet PO DAILY #60 packet 05/01/17 06/04/19 lancets [Sure Comfort Lancets] #1 box 06/24/17 06/04/19 acetaminophen 1,000 mg PO TID PRN #90 tab-cap 12/16/17 06/04/19 montelukast [Singulair] 10 mg PO DAILY #90 tab-cap 03/31/18 06/04/19 cyanocobalamin (vitamin B-12) 1,000 mcg PO DAILY #90 tab-cap 05/07/18 06/04/19 1,000 mcg tablet atenolol 100 mg tablet 100 mg PO DAILY #30 tab-cap 06/09/18 06/04/19 cetirizine 10 mg tablet 10 mg PO DAILY #90 tab-cap 06/30/18 06/04/19 metformin 1,000 mg tablet 1,000 mg PO BID #180 tab-cap 07/21/18 06/04/19 omeprazole 20 mg capsule,delayed 20 mg PO DAILY #90 tab-cap 07/28/18 06/04/19 release hydrochlorothiazide 50 mg tablet 50 mg PO QAM #90 tab 08/11/18 06/04/19 albuterol sulfate 2.5 mg IH QID PRN #180 ml 08/21/18 06/04/19 nebulizer and compressor #1 each 08/21/18 06/04/19 ferrous sulfate 325 mg (65 mg See Rx Instructions PO .COMPLEX 10/01/18 06/04/19 iron) tablet #270 tab-cap budesonide-formoterol HFA 160 2 puff INHALATION BID #3 inhaler 10/15/18 06/04/19 mcg-4.5 mcg/actuation aerosol inhaler ipratropium 20 mcg-albuterol 100 1 - 2 puff INHALATION .Q4-6H PRN 10/17/18 06/04/19 mcg/actuation mist for inhalation #3 device betamethasone dipropionate 0.05 % 1 applic TP BID PRN #45 gm 11/26/18 06/04/19 topical ointment empagliflozin 25 mg tablet 25 mg PO DAILY AM #90 tab-cap 01/05/19 06/04/19 rosuvastatin 20 mg tablet 20 mg PO DAILY #90 tab-cap 01/19/19 06/04/19 umeclidinium 62.5 mcg/actuation 62.5 mcg INHALATION DAILY #3 disk 01/19/19 06/04/19 blister powder for inhalation valsartan 320 mg tablet 320 mg PO DAILY #90 tab-cap 01/29/19 06/04/19 blood sugar diagnostic #180 strip 02/25/19 06/04/19 calcium carbonate-vitamin D3 600 2 tab PO DAILY #180 tab-cap 04/06/19 06/04/19 mg (1,500 mg)-800 unit tablet glipizide 10 mg tablet 10 mg PO BID #180 tab-cap 04/06/19 06/04/19 magnesium oxide 400 mg (241.3 mg 800 mg PO BID #360 tab-cap 04/06/19 06/04/19 magnesium) tablet Previous Rx's Medication Instructions Recorded lancets [Sure Comfort Lancets] #1 box 06/24/17 montelukast [Singulair] 10 mg PO DAILY #90 tab-cap 03/31/18 cyanocobalamin (vitamin B-12) 1,000 mcg PO DAILY #90 tab-cap 05/07/18 1,000 mcg tablet atenolol 100 mg tablet 100 mg PO DAILY #30 tab-cap 06/09/18 cetirizine 10 mg tablet 10 mg PO DAILY #90 tab-cap 06/30/18 metformin 1,000 mg tablet 1,000 mg PO BID #180 tab-cap 07/21/18 omeprazole 20 mg capsule,delayed 20 mg PO DAILY #90 tab-cap 07/28/18 release hydrochlorothiazide 50 mg tablet 50 mg PO QAM #90 tab 08/11/18 albuterol sulfate 2.5 mg IH QID PRN #180 ml 08/21/18 nebulizer and compressor #1 each 08/21/18 ferrous sulfate 325 mg (65 mg See Rx Instructions PO .COMPLEX 10/01/18 iron) tablet #270 tab-cap budesonide-formoterol HFA 160 2 puff INHALATION BID #3 inhaler 10/15/18 mcg-4.5 mcg/actuation aerosol inhaler ipratropium 20 mcg-albuterol 100 1 - 2 puff INHALATION .Q4-6H PRN 10/17/18 mcg/actuation mist for inhalation #3 device betamethasone dipropionate 0.05 % 1 applic TP BID PRN #45 gm 11/26/18 topical ointment empagliflozin 25 mg tablet 25 mg PO DAILY AM #90 tab-cap 01/05/19 rosuvastatin 20 mg tablet 20 mg PO DAILY #90 tab-cap 01/19/19 umeclidinium 62.5 mcg/actuation 62.5 mcg INHALATION DAILY #3 disk 01/19/19 blister powder for inhalation valsartan 320 mg tablet 320 mg PO DAILY #90 tab-cap 01/29/19 blood sugar diagnostic #180 strip 02/25/19 calcium carbonate-vitamin D3 600 2 tab PO DAILY #180 tab-cap 04/06/19 mg (1,500 mg)-800 unit tablet glipizide 10 mg tablet 10 mg PO BID #180 tab-cap 04/06/19 magnesium oxide 400 mg (241.3 mg 800 mg PO BID #360 tab-cap 04/06/19 magnesium) tablet Allergies Allergy/AdvReac Type Severity Reaction Status Date / Time propylene glycol Allergy Severe Rash Verified 04/06/19 08:39 adhesive tape Allergy Unknown Skin Rash Verified 04/06/19 08:39 alendronate sodium Allergy Unknown Hives Verified 04/06/19 08:39 azithromycin AdvReac Intermediate dry heaves Verified 04/06/19 08:39 and diarrhea hydrocodone bitartrate AdvReac Intermediate Nausea Verified 04/06/19 08:39 [From Vicodin] LANDON Inhibitors AdvReac Unknown COUGH,DYSPN Verified 04/06/19 08:39 EA oxycodone HCl [From Percocet] AdvReac Unknown NAUSEA/VOMI Verified 04/06/19 08:39 TING fragranced creams Allergy Intermediate Skin Rash Uncoded 04/06/19 08:39 parabin wax Allergy Intermediate Skin Rash Uncoded 04/06/19 08:39 General Stated Complaint: SOB BRUNA: 3 Review of Systems <Michael Mueller MD - Last Filed: 06/04/19 20:46> Review of Systems Narrative: 06/15 Review of Systems completed and is negative except as stated above in HPI (Systems reviewed: Const, Eyes, ENT, Resp, CV, GI, , MSK, Skin, Neuro) PFSH <Michael Mueller MD - Last Filed: 06/04/19 20:46> Medical History Allergic rhinitis (Chronic) Anemia (Chronic 02/11/14) Suspect chronic dz/bone marrow suppression s/p breast CA tx (radiation); s/p GI workup (possible AVMs?), NL B12/folate, elevated Epo, NL retic count; chronic iron supplementation Atherosclerosis of both carotid arteries (Chronic 11/12/16) 10/2016 [facility] [place] Vascular Consult: carotid US showing 16-49% stenosis both internal carotids Recommend annual carotid US Breast CA R 2001, L2003 s/p bilateral lumpectomy. S/P XRT and Tamoxifen. Chronic GI bleeding (Chronic) Chronic kidney disease (CKD) (Chronic) Chronic obstructive airway disease (Chronic 06/04/12) [facility] [place] Pulmonology (Dr. 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 Smith Essential hypertension (Chronic 05/16/04) H/O laminectomy (Resolved) L5S1 Heart murmur (Chronic) 07/11/2016 echo: mild-moderate mitral regurgitation Hiatal hernia (Chronic 02/11/14) Smaller portions Endoscopy 10/04 anemia (nothing found), [facility] Hyperlipidemia (Chronic 03/18/07) Pt on high intensity statin therapy Hypomagnesemia (Chronic 03/04/17) Intraabdominal calcification (Chronic 11/14/15) Incidental finding on CT 2 mm between bladder and uterus, no further eval required, AOC Iron deficiency anemia (Chronic 01/02/17) S/p colo & EGD 05/2015, then capsule endoscopy & push enteroscopy with no definitive etiology identified 11/14/2017: repeat colonoscopy (due to return of anemia) showing a colonic angioectasia, which may have been source of bleeding & anemia (though no overt bleeding found) Fe supplementation & monitor Left renal artery stenosis (Chronic 08/30/16) 08/21/16 [facility] [place] Vascular Surgery consult: moderate-severe stenosis; given well- controlled HTN & normal kidney function, renal artery intervention not indicated at this t 10/2016: 3 mo f/u renal duplex US showing >60% stenosis with decent blood flow to L kidney Consider stent placement if BP becomes poorly controlled or renal function begins to deteriorate Leg cramps (Chronic 04/01/14) Low Mg+ --> supplementation helped, but caused diarrhea; handout on dietary Mg+ given Microalbuminuria due to type 2 diabetes mellitus (Chronic) Obstructive sleep apnea (Chronic 03/02/14) CPAP Osteopenia (Chronic 02/14/16) DEXA 02/14/16: Fem neck t-score -1.2 --> WHO FRAX major osteoporotic 13% & hip fx 1.3% risk --> does not qualify for bisphosphonates --> Ca & vit D 03/2017 L3 compression fx --> re-calc WHO FRAX major osteoporotic 21% & hip fx 2.3% risk --> now qualifies for bisphosphonate tx, started 03/2017 Probable allergic rxn to Alendronate (1st pill Wed, Hiv Th and stayed thru today (but no worsening), 07/05. Agree to STOP for now. 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 Dr Agee H/O laminectomy (Acute ~10/06/12) L5S1 Huyen Frazier, Dr. Garay Oophrectomy, Right (Resolved ~2007) For unknown reason Tooth Extractions (Resolved) Multiple Social History Smoking/Tobacco Use Status: Former Tobacco Use Quit Date: 09/02/00 Pack-years: 37 Tobacco: How many years used: 25 Alcohol Intake: former Details: none Drug use: Never Substance use type: does not use Adopted: No Caregiver/Support person: No Foster care: No Household members: spouse Number of Children: 4 Communication Needs: None Pets and animals: No Current gender identity: female What type of physical activity do you participate in: regular exercise Duration: < 15 minutes/day Frequency: 3-4 times per week Mell/Shinto: Yazidism Seatbelt use: always Drive intox or ride w/intox courtesy van driver: No Working smoke detector in home: Yes Fire extinguisher in home: Yes Carbon monox detector in home: Yes Do you feel safe at home: Yes Do you feel safe in your relationship?: Yes Exam <Michael Mueller MD - Last Filed: 06/04/19 20:46> Narrative Exam Narrative: Vitals: Afebrile here. Blood pressure a little elevated. Heart rate normal. Room air pulse ox 90-91 with history of COPD. Const: WDWN elderly female in NAD. HEENT: NC/AT. Normal facial exam. Eyes: Normal conjunctiva and sclera. Neck: Supple. Trachea midline. Lungs: Normal respiratory effort. Lungs with rhonchi/rales in left base. No wheezing. Cor: RRR without murmur/gallop. Good radial pulses. GI: Soft. NT/ND. No guarding or rebound. Neuro: A+O x 3. CN grossly in tact. Good strength and no focal deficit. Ext: No C/C/E. No calf tenderness. Skin: Warm and dry without rash. Course <Michael Mueller MD - Last Filed: 06/04/19 20:46> Vital Signs Vital signs: Vital Signs Temperature 98.1 F 06/04/19 06:54 Pulse 77 06/04/19 06:54 Respiratory Rate 32 H 06/04/19 06:54 Blood Pressure 158/43 H 06/04/19 06:54 Pulse Oximetry 91 L 06/04/19 06:54 Temperature 98.1 F 06/04/19 06:54 Temperature Source Temporal Artery Scan 06/04/19 06:54 Pulse 77 06/04/19 06:54 Respiratory Rate 21 06/04/19 06:58 Respiratory Effort Non-Labored 06/04/19 06:58 Respiratory Depth Normal 06/04/19 06:58 Respiratory Pattern Normal 06/04/19 06:58 Blood Pressure 158/43 H 06/04/19 06:54 Blood Pressure Position Supine 06/04/19 06:54 Pulse Oximetry 91 L 06/04/19 06:54 Oxygen Delivery Method Room Air 06/04/19 06:54 Oxygen Flow Rate 0 06/04/19 06:54 Sign Out <Michael Mueller MD - Last Filed: 06/04/19 20:46> Sign Out Data: Sign Out Comment: Pending troponin and radiology read and call to hospitalist for admission. Last updated by Michael Mueller MD at 06/04/19 08:05
[2019-06-04] MEDS: Albuterol/Ipratropium 3 ML UPD VIAL UPD (07:25)
[2019-06-04] MEDS: Ondansetron 4 MG/2 ML VIAL IVP ×2 (07:26→19:44)
[2019-06-04 07:27] LABS: Abs Immature Grans 0.02 k/cumm (0.0-0.09); Absolute Basophil Count 0.02 k/cumm (0.0-0.2); Absolute Eosinophil Count 0.12 k/cumm (0.0-0.7); Absolute Monocyte Count 0.79 k/cumm (0.11-0.7); Absolute Neutrophil Count 6.18 k/cumm (1.2-6.7); Basophils % 0.2; Eosinophils % 1.5; HCT 41.2 % (36.0-46.0); Immature Grans % 0.2; Lymphocytes % 12.3; Mean Corp. HGB Concentration 31.6 g/dL (32.0-36.0); Mean Corpuscular Hemoglobin 30.3 pg (27.0-33.0); Mean Platelet Volume 8.6 fL (8.0-11.0); Monocytes % 9.7; Neutrophils % 76.1; Platelet Count 320 x1000/uL (130-400); RBC 4.29 m/cumm (4.00-5.20); RBC Distribution Width 14.5 % (11.7-14.6); White Blood Cell Count 8.13 k/cumm (4.4-10.8)
[2019-06-04] MEDS: Lactated Ringers 1,000 ML 125 ML IV (07:30)
--- NOTE | 2019-06-04 07:44 | DI.RAD_ITS ---
EXAM: XR CHEST 2V PA LATERAL INDICATION: SOB. COMPARISON: XR CHEST 2V PA LATERAL from 09/29/2018 TECHNIQUE: 2D digital imaging was performed. FINDINGS: The heart is not enlarged. There are patchy bilateral multifocal areas of faint pulmonary consolidat ion which were not present on previous chest film of September 29. No pleural effusion seen. . IMPRESSION: Conclusion findings consistent with acute patchy multifocal pneumonia. Appropriate follow-up studies requested
[2019-06-04 07:47] LABS: ALT 23 U/L (14-59); AST 15 U/L (15-37); Albumin 3.3 g/dL (3.4-5.0); Alkaline Phosphatase 69 U/L (46-116); Anion Gap 8.7 mmol/L (3-11); BUN 23 mg/dL (7-18); Bilirubin, Total 0.3 mg/dL (0.2-1.0); CO2 31.3 mmol/L (21.0-32.0); CREATININE 1.34 mg/dL (0.55-1.02); Chloride 94 mmol/L (98-107); Estimated GFR 39.22 (mL/min/1.73m2); Glucose 189 mg/dL (70-100); Magnesium 2.4 mg/dL (1.8-2.4); Potassium 4.4 mmol/L (3.5-5.1); Sodium 134 mmol/L (136-145)
[2019-06-04 08:09] LABS: Troponin I < 0.05 ng/mL (0.00-0.06)
[2019-06-04] MEDS: cefTRIAXone 2 GM/50 ML BAG IVPB (08:17)
[2019-06-04] MEDS: DOXYCYCLINE 100 MG in Normal Saline 100 ML IVPB ×2 (08:50→19:35)
[2019-06-04] MEDS: Heparin 5,000 UNITS/ML VIAL 5000 UNITS SC ×2 (10:24→19:08)
[2019-06-04] MEDS: ROSUVASTATIN 20 MG TAB PO (10:24)
[2019-06-04] MEDS: predniSONE 20 MG TAB 40 MG PO ×2 (10:24→19:36)
[2019-06-04] MEDS: Acetaminophen 325 MG TAB PO (10:24)
[2019-06-04] MEDS: Cetirizine 10 MG TAB PO (10:25)
[2019-06-04] MEDS: Aspirin E.C. 81 MG TABEC PO (10:25)
[2019-06-04] MEDS: Multivitamin TAB 1 TAB PO (10:25)
[2019-06-04] MEDS: Calcium 600mg/Vit D 200U TAB 2 TAB PO (10:25)
[2019-06-04] MEDS: Montelukast 10 MG TAB PO (10:25)
[2019-06-04] MEDS: Ferrous Sulfate 325 MG TAB PO ×3 (10:25→19:36)
[2019-06-04] MEDS: Cyanocobalamin 500 MCG TAB 1000 MCG PO (10:25)
[2019-06-04] MEDS: Omeprazole 20 MG CAPCR PO (10:28)
[2019-06-04] MEDS: Normal Saline 1,000 ML 100 ML IV ×2 (10:32→19:35)
[2019-06-04] MEDS: Budesonide/Formoterol 160/4.5 6 GM 60 PUFF INH IH ×2 (10:48→19:36)
[2019-06-04] MEDS: Umeclidinium 7 CAP INHALER IH (10:49)
[2019-06-04] MEDS: Insulin Aspart 300 UNITS/3 ML PEN SC ×2 (12:35→16:46)
--- NOTE | 2019-06-04 13:08 | W.PM.HP.N ---
Date of service: 06/04/19 Time of Service: 13:08 Assessment and Plan Assessment and plan (1) Fever: Status: Acute Assessment and plan: Evidence of Pneumonia by imaging, along with subjective fevers, fatigue, and cough. - Initiate antibiotic therapy with combination Ceftriaxone, Doxycycline. - Check Blood and Sputum Cultures. - Given concurrent COPD with mild exacerbation, may benefit from steroids and prn nebs. - Continue IVFs and monitor clinically. (2) Pneumonia: Status: Acute Assessment and plan: Treatment as above. (3) Obstructive sleep apnea: Status: Chronic Assessment and plan: Continue BiPAP therapy. (4) Hyperlipidemia: Status: Chronic Assessment and plan: Continue statin therapy. Qualifiers: Hyperlipidemia type: unspecified Qualified Code(s): E78.5 - Hyperlipidemia, unspecified (5) Diabetes mellitus: Status: Chronic Assessment and plan: Continue Sulfonylurea, Jardiance. Hold Metformin as inpatient, initiate on sliding scale coverage, and ensure ADA diet. Qualifiers: Diabetes mellitus type: type 2 Diabetes mellitus long term care phlebotomist insulin use: without long term care phlebotomist use Diabetes mellitus complication status: with kidney complications Diabetes mellitus complication detail: with chronic kidney disease Chronic kidney disease stage: unspecified stage Qualified Code(s): E11.22 - Type 2 diabetes mellitus with diabetic chronic kidney disease (6) Essential hypertension: Status: Chronic Assessment and plan: Hold HCTZ and ARB in setting of both hypotension and BRITTNEY. Continue BB therapy. (7) Chronic obstructive airway disease: Status: Chronic (8) BRITTNEY (acute kidney injury): Status: Acute Assessment and plan: In setting of illness and dehydration. Continue IVFs, hold thiazide and ARB, renally dose medications, and avoid nephrotoxins. (9) DVT prophylaxis: Status: Acute Assessment and plan: SC Heparin. (10) Advance directive discussed with patient: Status: Acute Assessment and plan: Full Code. History of Present Illness History of Present Illness Chief Complaint: Fever, Fatigue Narrative: Very pleasant 68 year old woman with a prior history of COPD, being admitted from [facility] Emergency Department on 06/04 with a diagnosis of Pneumonia. Mrs. Marquez has a past Medical History significant for COPD and prior tobacco use, DM, NIKKI, GERD with reflux Esophagitis, HTN, dyslipidemia, DJD, and prior hx Breast Ca. She also has mention of Left sided KALPANA and SMA stenosis by review of her past problem list. The patient presented to the ED with complaints of a 3-4 day history of severe fatigue, having spent the last 3 days in bed, with developing fevers, cough for the last day, left sided scapular pain overnight. She also awoke slightly dyspneic this morning. Work-up in the ED was significant for an essentially normal CBC, evidence of BRITTNEY with a mildly elevated creatinine with concurrently elevated BUN and Hypochloremia/Hyponatremia, and a slight elevation in Lactate. CXR showed findings consistent with acute patchy multifocal Pneumonia. She was also found to be febrile, mildly hypotensive, and hypoxic. She was referred for admission for further evaluation and treatment. Review of Systems Review of Systems ROS Unobtainable: All systems reviewed & are unremarkable except as noted in HPI and below [facility] Medical History Allergic rhinitis (Chronic) Anemia (Chronic 02/11/14) Suspect chronic dz/bone marrow suppression s/p breast CA tx (radiation); s/p GI workup (possible AVMs?), NL B12/folate, elevated Epo, NL retic count; chronic iron supplementation Atherosclerosis of both carotid arteries (Chronic 11/12/16) [place] [facility] [place]: carotid US showing 16-49% stenosis both internal carotids Recommend annual carotid US Breast CA R 2001, L2003 s/p bilateral lumpectomy. S/P XRT and Tamoxifen. Chronic GI bleeding (Chronic) Chronic kidney disease (CKD) (Chronic) Chronic obstructive airway disease (Chronic 06/04/12) [facility] [place]. [place]) Moderate-very severe Last OV & PFTs 08/21/16 [facility] [place] Per pulmonolgy() Severe-very severe KONRAD 10/31/16 Compression fracture of lumbar vertebra (Resolved 03/14/17) Coronary artery disease (Chronic 11/14/15) Depression (Resolved 11/30/02) s/p of brother (on SSRI for short time) Diabetes mellitus (Chronic 11/27/04) Dx'ed early Goal A1C <7.5% DJD (degenerative joint disease) (Chronic 02/04/14) Lumbar spine--multiple level on MRI Surgery 10/2011, [facility] Dr. Smith Essential hypertension (Chronic 05/16/04) H/O laminectomy (Resolved) L5S1 Heart murmur (Chronic) 07/11/2016 echo: mild-moderate mitral regurgitation Hiatal hernia (Chronic 02/11/14) Smaller portions Endoscopy 10/04 anemia (nothing found), [facility] [place] Hyperlipidemia (Chronic 03/18/07) Pt on high intensity statin therapy Hypomagnesemia (Chronic 03/04/17) Intraabdominal calcification (Chronic 11/14/15) Incidental finding on CT 2 mm between bladder and uterus, no further eval required, [facility] Iron deficiency anemia (Chronic 01/02/17) S/p colo & EGD 05/2015, then capsule endoscopy & push enteroscopy with no definitive etiology identified 11/14/2017: repeat colonoscopy (due to return of anemia) showing a colonic angioectasia, which may have been source of bleeding & anemia (though no overt bleeding found) Fe supplementation & monitor Left renal artery stenosis (Chronic 08/30/16) 08/21/16 [facility] [place] consult: moderate-severe stenosis; given well-controlled HTN & normal kidney function, renal artery intervention not indicated at this t 10/2016: 3 mo f/u renal duplex US showing >60% stenosis with decent blood flow to L kidney Consider stent placement if BP becomes poorly controlled or renal function begins to deteriorate Leg cramps (Chronic 04/01/14) Low Mg+ --> supplementation helped, but caused diarrhea; handout on dietary Mg+ given Microalbuminuria due to type 2 diabetes mellitus (Chronic) Obstructive sleep apnea (Chronic 03/02/14) CPAP Osteopenia (Chronic 02/14/16) DEXA 02/14/16: Fem neck t-score -1.2 --> WHO FRAX major osteoporotic 13% & hip fx 1.3% risk --> does not qualify for bisphosphonates --> Ca & vit D 03/2017 L3 compression fx --> re-calc WHO FRAX major osteoporotic 21% & hip fx 2.3% risk --> now qualifies for bisphosphonate tx, started 03/2017 Probable allergic rxn to Alendronate (1st pill Sat, and stayed thru today (but no worsening), 07/05. Agree to STOP for now. 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 Dr Agee H/O laminectomy (Acute ~10/06/12) L5S1 Huyen Frazier, Dr. Garay Oophrectomy, Right (Resolved ~2007) For unknown reason Tooth Extractions (Resolved) Multiple Social History Smoking/Tobacco Use Status: Former Tobacco Use Quit Date: 09/02/00 Pack-years: 37 Tobacco: How many years used: 25 Alcohol Intake: former Details: none Drug use: Never Substance use type: does not use Adopted: No Caregiver/Support person: No Foster care: No Household members: spouse Number of Children: 4 Communication Needs: None Pets and animals: No Current gender identity: female What type of physical activity do you participate in: regular exercise Duration: < 15 minutes/day Frequency: 3-4 times per week Mell/Yazidi: Bahai Seatbelt use: always Drive intox or ride w/intox city bus driver: No Working smoke detector in home: Yes Fire extinguisher in home: Yes Carbon monox detector in home: Yes Do you feel safe at home: Yes Do you feel safe in your relationship?: Yes Meds Home Medications and Allergies Home Medications Medication Instructions Recorded Confirmed Type aspirin [Aspir-81] 81 mg PO DAILY #90 03/30/13 06/04/19 History Oxygen l NS At Night #2 04/19/16 02/19/19 Clinic multivitamin [Daily Multi-Vitamin] 1 ea PO DAILY 03/19/17 06/04/19 History albuterol sulfate [ProAir HFA] 1 puff INHALATION Q4H PRN #2 04/02/17 06/04/19 History inhaler VSL#3 2 packet PO DAILY #60 packet 05/01/17 06/04/19 History lancets [Sure Comfort Lancets] #1 box 06/24/17 06/04/19 Rx acetaminophen 1,000 mg PO TID PRN #90 tab-cap 12/16/17 06/04/19 History Varicella-Zoster Ge/As01b/Pf 50 mcg IM ONCE #1 kit 03/31/18 02/19/19 Clinic [Shingrix Vial Kit] montelukast [Singulair] 10 mg PO DAILY #90 tab-cap 03/31/18 06/04/19 Rx cyanocobalamin (vitamin B-12) 1,000 mcg PO DAILY #90 tab-cap 05/07/18 06/04/19 Rx 1,000 mcg tablet atenolol 100 mg tablet 100 mg PO DAILY #30 tab-cap 06/09/18 06/04/19 Rx cetirizine 10 mg tablet 10 mg PO DAILY #90 tab-cap 06/30/18 06/04/19 Rx metformin 1,000 mg tablet 1,000 mg PO BID #180 tab-cap 07/21/18 06/04/19 Rx omeprazole 20 mg capsule,delayed 20 mg PO DAILY #90 tab-cap 07/28/18 06/04/19 Rx release hydrochlorothiazide 50 mg tablet 50 mg PO QAM #90 tab 08/11/18 06/04/19 Rx albuterol sulfate 2.5 mg IH QID PRN #180 ml 08/21/18 06/04/19 Rx nebulizer and compressor #1 each 08/21/18 06/04/19 Rx ferrous sulfate 325 mg (65 mg See Rx Instructions PO .COMPLEX 10/01/18 06/04/19 Rx iron) tablet #270 tab-cap budesonide-formoterol HFA 160 2 puff INHALATION BID #3 inhaler 10/15/18 06/04/19 Rx mcg-4.5 mcg/actuation aerosol inhaler ipratropium 20 mcg-albuterol 100 1 - 2 puff INHALATION .Q4-6H PRN 10/17/18 06/04/19 Rx mcg/actuation mist for inhalation #3 device betamethasone dipropionate 0.05 % 1 applic TP BID PRN #45 gm 11/26/18 06/04/19 Rx topical ointment empagliflozin 25 mg tablet 25 mg PO DAILY AM #90 tab-cap 01/05/19 06/04/19 Rx rosuvastatin 20 mg tablet 20 mg PO DAILY #90 tab-cap 01/19/19 06/04/19 Rx umeclidinium 62.5 mcg/actuation 62.5 mcg INHALATION DAILY #3 disk 01/19/19 06/04/19 Rx blister powder for inhalation valsartan 320 mg tablet 320 mg PO DAILY #90 tab-cap 01/29/19 06/04/19 Rx blood sugar diagnostic #180 strip 02/25/19 06/04/19 Rx calcium carbonate-vitamin D3 600 2 tab PO DAILY #180 tab-cap 04/06/19 06/04/19 Rx mg (1,500 mg)-800 unit tablet glipizide 10 mg tablet 10 mg PO BID #180 tab-cap 04/06/19 06/04/19 Rx magnesium oxide 400 mg (241.3 mg 800 mg PO BID #360 tab-cap 04/06/19 06/04/19 Rx magnesium) tablet Allergies Allergy/AdvReac Type Severity Reaction Status Date / Time propylene glycol Allergy Severe Rash Verified 04/06/19 08:39 adhesive tape Allergy Unknown Skin Rash Verified 04/06/19 08:39 alendronate sodium Allergy Unknown Hives Verified 04/06/19 08:39 azithromycin AdvReac Intermediate dry heaves Verified 04/06/19 08:39 and diarrhea hydrocodone bitartrate AdvReac Intermediate Nausea Verified 04/06/19 08:39 [From Vicodin] LANDON Inhibitors AdvReac Unknown COUGH,DYSPN Verified 04/06/19 08:39 EA oxycodone HCl [From Percocet] AdvReac Unknown NAUSEA/VOMI Verified 04/06/19 08:39 TING fragranced creams Allergy Intermediate Skin Rash Uncoded 04/06/19 08:39 parabin wax Allergy Intermediate Skin Rash Uncoded 04/06/19 08:39 Exam Narrative Exam Narrative: General: Patient appears comfortable, AAOX3, NAD Neck: Supple CV: Regular, nontachycardic, S1S2, 3/6 LLSB murmur. Pulmonary: Decreaed breath sounds left lateral and right upper lung areas. Abdomen: + Bowel Sounds, soft, nontender, nondistended Vascular: No lower extremity edema Neurologic: CN II-XII grossly intact. No focal deficits. Psych: Normal mood and affect. Results Labs Result diagrams: 06/04/19 07:03 06/04/19 07:03 Labs: Laboratory Results - last 24 hr 06/04/19 06/04/19 06/04/19 07:03 07:03 07:03 WBC 8.13 RBC 4.29 Hgb 13.0 Hct 41.2 MCV 96.0 H MCH 30.3 MCHC 31.6 L RDW 14.5 Plt Count 320 MPV 8.6 Immature Gran % 0.2 Neutrophils % 76.1 Lymphocytes % 12.3 Monocytes % 9.7 Eosinophils % 1.5 Basophils % 0.2 Absolute Neutrophils 6.18 Absolute Lymphocytes 1.00 L Absolute Monocytes 0.79 H Absolute Eosinophils 0.12 Absolute Basophils 0.02 Sodium 134 L Potassium 4.4 Chloride 94 L Carbon Dioxide 31.3 Anion Gap 8.7 BUN 23 H Creatinine 1.34 H Estimated GFR/1.73 m2 39.22 Glucose 189 H Lactate 2.0 H Calcium 9.0 Magnesium 2.4 Total Bilirubin 0.3 AST 15 ALT 23 Alkaline Phosphatase 69 Troponin I < 0.05 Total Protein 9.0 H Albumin 3.3 L Last Vital Signs Temp 38.5 C H 06/04/19 10:42 Pulse 84 06/04/19 10:42 Resp 24 06/04/19 10:42 BP 133/66 06/04/19 10:42 Pulse Ox 94 L 06/04/19 10:42
--- NOTE | 2019-06-04 13:53 | PHARADMIT ---
Admission Pharmacy Clinical Review pneumonia Code Status Full Code Current Weight 65.771 kg Renally Cleared and Narrow Therapeutic Index Meds Crcl ~33.5 mL/min using adjusted bodyweight -atenolol: max dose 50 mg/day for Crcl 15-35 mL/min -empaglifozin: drafter landscape recommends discontinuing med if eGFR is persistently less than 45 mL/min; use contraindicated eGFR less than 30 QTc Value / Action Taken QTc 424 BP Control, Fever BP 102/62 Tmax 38.5 Electrolytes reviewed Na 134 Cl 94 DVT Prophylaxis heparin Opiate Usage / Scheduled Bowel Regimen Ordered no/prn Plt/SCr for Heparin / Enoxaparin plt 320 SCr 1.34 INR for Warfarin n/a H/H stable, WBC/Bands h/h 13.0/41.2 WBC 8.13 Antibiotic appropriateness ceftriaxone and doxycycline Cultures and Sensitivities blood cultures pending rapid flu negative Surgical ABX d/c within 24 hr n/a DM control / Insulin Dosing BG 189 sliding scale insulin, some po meds ordered Heart Failure (Check EF%) (LANDON's, B-Block, Diuretics) atenolol IV to PO Switch n/a Home Meds Reviewed -multiple anticholinergic meds: cetirizine, ipratropium, umeclidinium -separate admin of ferrous sulfate from calcium/vit D and magnesium -empagliflozin may enhance the hypoglycemic of glipizide; watch when starting/stopping either med Home Meds Not Ordered hydrochlorothiazide, irbsartan, topical lido, metformin, valsartan, zinc oxide Comments sent message to about atenolol dosing and empagliflozin, have not gotten response yet
[2019-06-04 14:18] LABS: Lactate 1.8 mmol/L (0.6-1.4)
[2019-06-04] MEDS: glipiZIDE 10 MG TAB PO (16:44)
[2019-06-04] MEDS: Magnesium Oxide 400 MG TAB 800 MG PO (22:41)
[2019-06-05] MEDS: Heparin 5,000 UNITS/ML VIAL 5000 UNITS SC ×2 (02:36→10:06)
[2019-06-05] MEDS: Normal Saline 1,000 ML 100 ML IV (06:20)
[2019-06-05 07:18] LABS: Abs Immature Grans 0.01 k/cumm (0.0-0.09); Absolute Monocyte Count 0.12 k/cumm (0.11-0.7); Absolute Neutrophil Count 3.69 k/cumm (1.2-6.7); HCT 34.5 % (36.0-46.0); HGB 10.9 g/dL (12.0-15.5); Immature Grans % 0.2; Lymphocytes % 11.6; Mean Corp. HGB Concentration 31.6 g/dL (32.0-36.0); Mean Corpuscular Hemoglobin 30.4 pg (27.0-33.0); Mean Corpuscular Volume 96.1 fL (80-95); Mean Platelet Volume 9.1 fL (8.0-11.0); Monocytes % 2.8; Neutrophils % 85.4; Platelet Count 288 x1000/uL (130-400); RBC 3.59 m/cumm (4.00-5.20); RBC Distribution Width 14.1 % (11.7-14.6); White Blood Cell Count 4.32 k/cumm (4.4-10.8)
[2019-06-05 07:20] LABS: Anion Gap 9.5 mmol/L (3-11); BUN 24 mg/dL (7-18); CO2 27.5 mmol/L (21.0-32.0); CREATININE 1.05 mg/dL (0.55-1.02); Calcium 8.6 mg/dL (8.5-10.1); Chloride 103 mmol/L (98-107); Estimated GFR 51.96 (mL/min/1.73m2); Glucose 235 mg/dL (70-100); Magnesium 2.5 mg/dL (1.8-2.4); Potassium 4.4 mmol/L (3.5-5.1); Sodium 140 mmol/L (136-145)
[2019-06-05 07:46] VITALS: BP 148/72; PULSE 72; RESP 19; TEMP 36.2; O2SAT 92
[2019-06-05] MEDS: glipiZIDE 10 MG TAB PO (07:46)
[2019-06-05] MEDS: cefTRIAXone 2 GM/50 ML BAG IVPB (07:46)
[2019-06-05] MEDS: Omeprazole 20 MG CAPCR PO (07:46)
[2019-06-05] MEDS: Normal Saline Flush 10 ML SYR IVP (07:47)
[2019-06-05] MEDS: Budesonide/Formoterol 160/4.5 6 GM 60 PUFF INH IH (08:02)
[2019-06-05] MEDS: Umeclidinium 7 CAP INHALER IH (08:02)
[2019-06-05 08:04] VITALS: O2SAT 88
[2019-06-05] MEDS: Cetirizine 10 MG TAB PO (08:18)
[2019-06-05] MEDS: Cyanocobalamin 500 MCG TAB 1000 MCG PO (08:18)
[2019-06-05] MEDS: ROSUVASTATIN 20 MG TAB PO (08:18)
[2019-06-05] MEDS: Atenolol 50 MG TAB 100 MG PO (08:18)
[2019-06-05] MEDS: Ferrous Sulfate 325 MG TAB PO (08:18)
[2019-06-05] MEDS: Multivitamin TAB 1 TAB PO (08:18)
[2019-06-05] MEDS: Aspirin E.C. 81 MG TABEC PO (08:18)
[2019-06-05] MEDS: Insulin Aspart 300 UNITS/3 ML PEN SC ×2 (08:19→11:54)
[2019-06-05] MEDS: predniSONE 20 MG TAB 40 MG PO (08:19)
[2019-06-05] MEDS: Montelukast 10 MG TAB PO (08:19)
[2019-06-05 08:23] VITALS: O2SAT 88
[2019-06-05] MEDS: DOXYCYCLINE 100 MG in Normal Saline 100 ML IVPB (09:02)
[2019-06-05] MEDS: Magnesium Oxide 400 MG TAB 800 MG PO (10:05)
[2019-06-05] MEDS: Calcium 600mg/Vit D 200U TAB 2 TAB PO (10:05)
--- NOTE | 2019-06-05 10:30 | W.PM.DS.N ---
Date of service: 06/05/19 Time of Service: 10:31 DS: Diagnosis Discharge Diagnosis (1) Fever: Status: Acute (2) Pneumonia: Status: Acute (3) Obstructive sleep apnea: Status: Chronic (4) Hyperlipidemia: Status: Chronic (5) Diabetes mellitus: Status: Chronic (6) Essential hypertension: Status: Chronic (7) Chronic obstructive airway disease: Status: Chronic (8) BRITTNEY (acute kidney injury): Status: Acute Discharge Plan Disposition Patient Disposition: HOME Condition: Stable Discharge Details Chief Complaint: SOB Clinical Impression: CAP (community acquired pneumonia) Reason For Visit: PNEUMONIA Admit Date/Time: 06/04/19 08:32 Admit Provider: Quinton Aquino Attending Provider: Quinton Aquino Primary Care Provider: María Mendoza ED Provider: Johnny Silva Hospital Course Hospital Course: Chief Complaint: Fever, cough, malaise HPI: Very pleasant 68 year old woman with a prior history of COPD, admitted from [facility] Emergency Department on 06/04 with a diagnosis of Pneumonia. Mrs. Marquez has a past Medical History significant for COPD and prior tobacco use, DM, NIKKI, GERD with Reflux Esophagitis, HTN, dyslipidemia, DJD, and prior hx of Breast Ca. She also has mention of Left sided KALPANA and SMA stenosis by review of her past problem list. The patient presented to the ED with complaints of a 3-4 day history of severe fatigue, having spent the last 3 days in bed, with developing fevers, cough for the last day, and left sided scapular pain overnight. She also awoke slightly dyspneic on the morning of admission. Work-up in the ED was significant for an essentially normal CBC, evidence of BRITTNEY with a mildly elevated creatinine with concurrently elevated BUN and Hypochloremia/Hyponatremia, and a slight elevation in Lactate. CXR showed findings consistent with acute patchy multifocal Pneumonia. She was also found to be febrile, mildly hypotensive, and hypoxic. She was referred for admission for further evaluation and treatment. Hospital Course: (1) Fever: Evidence of Pneumonia by imaging, along with subjective fevers, fatigue, and cough. - Has defervesced, with vast improvement in symptoms with IVFs and combination Ceftriaxone, Doxycycline. Plan for a 7 day course of oral Cefpodoxime and Doxy. - Blood Cultures with no growth X24 hours, and Sputum Cultures with few GPC. - Patient also had mild concurrent COPD exacerbation - will benefit from a fast steroids taper and liberal use of home nebulizer. - Initial mild hypoxia - patient ambulated today with Pulse Ox remaining at or above 88%. She utilizes nocturnal O2 with her NIPPV, and may in the future require daytime oxygen as well, but currently without supplemental O2 need. (2) Pneumonia: Treatment as above. (3) Obstructive sleep apnea: Continue BiPAP therapy. (4) Hyperlipidemia: Continue statin therapy. (5) Diabetes mellitus: Continue Sulfonylurea, Jardiance. Restart Metformin as outpatient, held while hospitalized. Patient was maintained on sliding scale insulin and ADA diet while hospitalized. (6) Essential hypertension: HCTZ and ARB were held in setting of both hypotension and BRITTNEY. Will ask patient to resume these tomorrow morning to allow for an additional day of renal perfusion given BRITTNEY, which appears to be resolving well. Continue BB therapy. (7) Chronic obstructive airway disease: Steroids and nebs as above. (8) BRITTNEY (acute kidney injury): Improved with IVFs and holding of thiazide and ARB - will resume as above. (9) DVT prophylaxis: Patient was maintained on SC Heparin. (10) Advance directive discussed with patient: Full Code confirmed at time of admission. (11) Disposition: Patient had a faster than expected recovery from her symptoms. As she has remained afebrile for over 24 hours, has no oxygen requirement even with ambulation, and feels vastly improved, will discharge home today. Home Meds and New Rx's Prescriptions: New dextromethorphan-guaifenesin 10-100 mg/5 mL Syrup 10 ml PO Q4H PRN PRN (Reason: cough) Qty: 3840 RF: 0 prednisone 10 mg tablet 10 mg PO DAILY Qty: 28 RF: 0 cefpodoxime 200 mg tablet 200 mg PO BID Qty: 14 RF: 0 doxycycline hyclate 100 mg capsule 100 mg PO BID Qty: 14 RF: 0 Continued Incruse Ellipta 62.5 mcg/actuation blister with device 62.5 mcg Inhalation DAILY Qty: 3 RF: 3 rosuvastatin [Crestor] 20 mg tablet 20 mg PO DAILY Qty: 90 RF: 3 glipizide 10 mg tablet 10 mg PO BID Qty: 180 RF: 3 calcium carbonate-vitamin D3 600 mg(1,500mg) -800 unit tablet 2 tab PO DAILY Qty: 180 RF: 3 magnesium oxide 400 mg (241.3 mg magnesium) tablet 800 mg PO BID Qty: 360 RF: 3 cetirizine 10 mg tablet 10 mg PO DAILY Qty: 90 RF: 3 ferrous sulfate 325 mg (65 mg iron) tablet See Rx Instructions PO .COMPLEX Qty: 270 RF: 3 (DME) nebulizer and compressor device See Dose Instructions .ROUTE .MEDSUPPLY Qty: 1 RF: 0 albuterol sulfate 2.5 mg /3 mL (0.083 %) solution for nebulization 2.5 mg IH QID PRN (Reason: bronchospasm) Qty: 180 RF: 6 Jardiance 25 mg tablet 25 mg PO DAILY AM Qty: 90 RF: 3 betamethasone dipropionate 0.05 % ointment 1 applic TP BID PRN (Reason: rash) Qty: 45 RF: 1 Oxygen EACH NS At Night Qty: 2 RF: 0 multivitamin [Daily Multi-Vitamin] 1 EACH tablet 1 ea PO DAILY RF: 0 albuterol sulfate [ProAir HFA] 8.5 GM HFA aerosol inhaler 1 puff Inhalation Q4H PRN Qty: 2 RF: 3 VSL#3 1 EACH capsule 2 packet PO DAILY Qty: 60 RF: 0 (DME) lancets [Sure Comfort Lancets] 1 EACH misc 1 ea Miscellaneous DAILY Qty: 1 RF: 3 acetaminophen 500 MG tablet 1,000 mg PO TID PRNQty: 90 RF: 0 montelukast [Singulair] 10 MG tablet 10 mg PO DAILY Qty: 90 RF: 3 Varicella-Zoster Ge/As01b/Pf [Shingrix Vial Kit] 50 MCG INJ 50 mcg IM ONCE Qty: 1 RF: 1 cyanocobalamin (vitamin B-12) 1,000 mcg tablet 1,000 mcg PO DAILY Qty: 90 RF: 3 atenolol 100 mg tablet 100 mg PO DAILY Qty: 30 RF: 11 metformin 1,000 mg tablet 1,000 mg PO BID Qty: 180 RF: 3 omeprazole 20 mg capsule,delayed release(DR/EC) 20 mg PO DAILY Qty: 90 RF: 3 hydrochlorothiazide 50 mg tablet 50 mg PO QAM Qty: 90 RF: 3 Symbicort 160-4.5 mcg/actuation HFA aerosol inhaler 2 puff Inhalation BID Qty: 3 RF: 3 Combivent Respimat 20-100 mcg/actuation mist 1 - 2 puff Inhalation .Q4-6H PRN (Reason: shortness of breath or wheezing) Qty: 3 RF: 3 valsartan 320 mg tablet 320 mg PO DAILY Qty: 90 RF: 3 (DME) FreeStyle Lite Strips strip 1 ea Miscellaneous BID Qty: 180 RF: 3 aspirin [Aspir-81] 81 MG tablet,delayed release (DR/EC) 81 mg PO DAILY Qty: 90 RF: 3 Discharge Instructions Stand Alone Forms: Nursing Discharge Form Referrals: María Mendoza NP [Primary Care Provider] - 06/12/19 11:00 am Activity:: No Strenuous Activity Equipment/Supplies:: No Equipment Needed Diet:: Carb Counting Discharge Orders Discharge Orders: Discharge Order (Routine); Ordered 06/05/19 Ordered By: Quinton Aquino DS: Summary Status at Discharge Functional status at discharge: independent ambulation Overall status at discharge: patient is back to baseline Mental Status: mental status grossly normal Speech and Movement: speech and movement normal Mood: congruent mood Affect: normal affect Exam Narrative Exam Narrative: General: Patient appears comfortable, AAOX3, NAD Neck: Supple CV: Regular, nontachycardic, S1S2, 3/6 LLSB murmur. Pulmonary: Decreaed breath sounds mildly and diffusely, overall improved. No wheezing. Abdomen: + Bowel Sounds, soft, nontender, nondistended Vascular: No lower extremity edema Psych: Normal mood and affect. Psych Mental Status: mental status grossly normal Speech and Movement: speech and movement normal Mood: congruent mood Affect: normal affect DS: Data Vitals/I&O Vitals and I&O: Vital Signs Temperature 36.2 C L 06/05/19 07:46 Temperature Source Temporal Artery Scan 06/05/19 07:46 Pulse 72 06/05/19 07:46 Pulse Rhythm Regular 06/05/19 07:35 Pulse 80 06/04/19 09:00 Respiratory Rate 19 06/05/19 07:46 Respiratory Effort 06/05/19 07:35 Respiratory Depth Normal 06/05/19 07:35 Respiratory Pattern Normal 06/05/19 07:35 Blood Pressure 148/72 H 06/05/19 07:46 Blood Pressure Mean 57 06/04/19 09:00 Blood Pressure Position Supine 06/04/19 06:54 Pulse Oximetry 88 L 06/05/19 08:23 Oxygen Delivery Method Room Air 06/05/19 08:23 Oxygen Flow Rate 0 06/05/19 08:23 Pain Level 0 06/05/19 07:46 Comment 06/04/19 11:35 Intake & Output 06/04/19 06/04/19 06/05/19 11:59 23:59 11:59 Intake Total 139.167 / 2654.167 2515 / 2654.167 1625 / 1625 Output Total 800 / 800 1300 / 1300 Balance 139.167 / 0571.190 7721 / 1854.167 325 / 325 Weight 65.771 kg Intake: IV 139.167 / 7326.803 0384 / 1254.167 975 / 975 Oral 1400 / 1400 650 / 650 Output: Urine 800 / 800 1300 / 1300 Other: Urine Color Yellow Yellow Urine Appearance Clear Clear Urine Odor Normal Comment VOIDING INDEPENDENTLY. Voiding Methods Toilet Data Completed and Pending Completed studies during hospitalization [Text1]: Exam(s) a RAD:XR chest 2V PA & lateral EXAM: XR CHEST 2V PA LATERAL INDICATION: SOB. COMPARISON: XR CHEST 2V PA LATERAL from 09/29/2018 TECHNIQUE: 2D digital imaging was performed. FINDINGS: The heart is not enlarged. There are patchy bilateral multifocal areas of faint pulmonary consolidation which were not present on previous chest film of September 29. No pleural effusion seen. . IMPRESSION: Conclusion findings consistent with acute patchy multifocal pneumonia. Appropriate follow-up studies requested Labs on day of discharge: Labs from last 24 hours 06/05/19 06/05/19 06/04/19 06:10 06:10 14:10 WBC 4.32 L D RBC 3.59 L Hgb 10.9 L D Hct 34.5 L MCV 96.1 H MCH 30.4 MCHC 31.6 L RDW 14.1 Plt Count 288 MPV 9.1 Immature Gran % 0.2 Neutrophils % 85.4 Lymphocytes % 11.6 Monocytes % 2.8 Eosinophils % 0.0 Basophils % 0.0 Absolute Neutrophils 3.69 Absolute Lymphocytes 0.50 L Absolute Monocytes 0.12 Absolute Eosinophils 0.00 Absolute Basophils 0.00 Sodium 140 Potassium 4.4 Chloride 103 Carbon Dioxide 27.5 Anion Gap 9.5 BUN 24 H Creatinine 1.05 H Estimated GFR/1.73 m2 51.96 Glucose 235 H Lactate 1.8 H Calcium 8.6 Magnesium 2.5 H 06/04/19 16:30 Sputum Sputum Culture - Pending 06/04/19 08:20 Blood Blood Culture - Pending 06/04/19 08:30 Blood Blood Culture - Pending Preliminary micro results at discharge 06/04/19 16:30 Sputum Culture - Pending Sputum 06/04/19 08:20 Blood Culture - Pending Blood 06/04/19 08:30 Blood Culture - Pending Blood [facility] Medical History Allergic rhinitis (Chronic) Anemia (Chronic 02/11/14) Suspect chronic dz/bone marrow suppression s/p breast CA tx (radiation); s/p GI workup (possible AVMs?), NL B12/folate, elevated Epo, NL retic count; chronic iron supplementation Atherosclerosis of both carotid arteries (Chronic 11/12/16) 10/2016 [facility] Vascular Consult: carotid US showing 16-49% stenosis both internal carotids Recommend annual carotid US Breast CA R 2001, L2003 s/p bilateral lumpectomy. S/P XRT and Tamoxifen. Chronic GI bleeding (Chronic) Chronic kidney disease (CKD) (Chronic) Chronic obstructive airway disease (Chronic 06/04/12) [facility] Pulmonology (Dr. 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 Smith Essential hypertension (Chronic 05/16/04) H/O laminectomy (Resolved) L5S1 Heart murmur (Chronic) 07/11/2016 echo: mild-moderate mitral regurgitation Hiatal hernia (Chronic 02/11/14) Smaller portions Endoscopy 10/04 anemia (nothing found), [facility] Hyperlipidemia (Chronic 03/18/07) Pt on high intensity statin therapy Hypomagnesemia (Chronic 03/04/17) Intraabdominal calcification (Chronic 11/14/15) Incidental finding on CT 2 mm between bladder and uterus, no further eval required, [facility] Iron deficiency anemia (Chronic 01/02/17) S/p colo & EGD 05/2015, then capsule endoscopy & push enteroscopy with no definitive etiology identified 11/14/2017: repeat colonoscopy (due to return of anemia) showing a colonic angioectasia, which may have been source of bleeding & anemia (though no overt bleeding found) Fe supplementation & monitor Left renal artery stenosis (Chronic 08/30/16) 08/21/16 [facility] Vascular Surgery consult: moderate-severe stenosis; given well-controlled HTN & normal kidney function, renal artery intervention not indicated at this t 10/2016: 3 mo f/u renal duplex US showing >60% stenosis with decent blood flow to L kidney Consider stent placement if BP becomes poorly controlled or renal function begins to deteriorate Leg cramps (Chronic 04/01/14) Low Mg+ --> supplementation helped, but caused diarrhea; handout on dietary Mg+ given Microalbuminuria due to type 2 diabetes mellitus (Chronic) Obstructive sleep apnea (Chronic 03/02/14) CPAP Osteopenia (Chronic 02/14/16) DEXA 02/14/16: Fem neck t-score -1.2 --> WHO FRAX major osteoporotic 13% & hip fx 1.3% risk --> does not qualify for bisphosphonates --> Ca & vit D 03/2017 L3 compression fx --> re-calc WHO FRAX major osteoporotic 21% & hip fx 2.3% risk --> now qualifies for bisphosphonate tx, started 03/2017 Probable allergic rxn to Alendronate (1st pill Sat, and stayed thru today (but no worsening), 07/05. Agree to STOP for now. 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 Dr Agee H/O laminectomy (Acute ~10/06/12) L5S1 Huyen Frazier, Dr. Garay Oophrectomy, Right (Resolved ~2007) For unknown reason Tooth Extractions (Resolved) Multiple Family History Sister Breast cancer Mother , 89 Alzheimer's dementia Breast cancer Father , AGE 75 Alcohol abuse Cirrhosis Sister Neoplasm uterine CA Sister Heart disease Brother Heart disease Niece Breast cancer Social History Smoking/Tobacco Use Status: Former Tobacco Use Quit Date: 09/02/00 Pack-years: 37 Tobacco: How many years used: 25 Alcohol Intake: former Details: none Drug use: Never Substance use type: does not use Adopted: No Caregiver/Support person: No Foster care: No Household members: spouse Number of Children: 4 Communication Needs: None Pets and animals: No Current gender identity: female What type of physical activity do you participate in: regular exercise Duration: < 15 minutes/day Frequency: 3-4 times per week Mell/Episcopal: Buddhism Seatbelt use: always Drive intox or ride w/intox automobile drivers: No Working smoke detector in home: Yes Fire extinguisher in home: Yes Carbon monox detector in home: Yes Do you feel safe at home: Yes Do you feel safe in your relationship?: Yes
--- NOTE | 2019-06-05 11:04 | W.INDIABCONS ---
Date of service: 06/05/19 Time of Service: 11:04 Diabetes Inpatient Consult DESCRIPTION/ASSESSMENT: Appreciate diabetes consult for Nahed Marquez who is hospitalized for Pneumonia. Nahed is well known to outpatient diabetes self management. BMI 28 A1c 8.2 Nahde is currently taking 40mg Prednisone twice daily. BLood sugars 191-337, this AM 232mg/dl taking sensitive insulin correction. Her supper contained 31grams carbohydrate. Nahed states her current medication at home is Metformin and Januvia, and she is not eating any bread products. She feels blood sugars are better since this change. INTERVENTION: Nahed implements diabetes self management at home and is conscientious of her food, monitoring, stress management and physical activity. She may benefit form NPH dosed for steroid use if prolonged use is likely. Nahed does understand the cause of her hyperglycemia at this time. PLAN: Will follow blood sugars Time Spent in Nutritional Counseling and Treatment: 10 minutes face to face
--- NOTE | 2019-06-05 18:16 | PDOC.CMIN ---
- If Service Date Differs Date of service: 06/05/19 Time of Service: 18:16 Care Management Initial Assess REASON FOR HOSPITALIZATION:: Pneumonia PAST MEDICAL HISTORY/PAST SURGICAL HISTORY:: Medical History. Allergic rhinitis (Chronic). Anemia (Chronic 02/11/14). Suspect chronic dz/bone marrow suppression s/p breast CA tx (radiation); s/p GI workup (possible AVMs?), NL B12/folate, elevated Epo, NL retic count; chronic iron supplementation. Atherosclerosis of both carotid arteries (Chronic 11/12/16). 10/2016 [facility] [place] Vascular Consult: carotid US showing 16-49% stenosis both internal carotids. Recommend annual carotid US. Breast CA. R 2001, L2003 s/p bilateral lumpectomy. S/P XRT and Tamoxifen. Chronic GI bleeding (Chronic). Chronic kidney disease (CKD) (Chronic). Chronic obstructive airway disease (Chronic 06/04/12). [facility] Pulmonology (Dr. Cruz). Moderate-very severe. Last OV & PFTs 08/21/16 [facility]. Night-time Oxygen. Per pulmonolgy(). Severe-very severe. KONRAD 10/31/16. Compression fracture of lumbar vertebra (Resolved 03/14/17). Coronary artery disease (Chronic 11/14/15). Depression (Resolved 11/30/02). s/p of brother (on SSRI for short time). Diabetes mellitus (Chronic 11/27/04). Dx'ed early . Goal A1C <7.5%. DJD (degenerative joint disease) (Chronic 02/04/14). Lumbar spine--multiple level on MRI. Surgery 10/2011, [facility] Dr. Smith. Essential hypertension (Chronic 05/16/04). H/O laminectomy (Resolved). L5S1. Heart murmur (Chronic). 07/11/2016 echo: mild-moderate mitral regurgitation. Hiatal hernia (Chronic 02/11/14). Smaller portions. Endoscopy 10/04 anemia (nothing found), [facility]. Hyperlipidemia (Chronic 03/18/07). Pt on high intensity statin therapy. Hypomagnesemia (Chronic 03/04/17). Intraabdominal calcification (Chronic 11/14/15). Incidental finding on CT. 2 mm between bladder and uterus, no further eval required, [facility]. Iron deficiency anemia (Chronic 01/02/17). S/p colo & EGD 05/2015, then capsule endoscopy & push enteroscopy with no definitive etiology identified. 11/14/2017: repeat colonoscopy (due to return of anemia) showing a colonic angioectasia, which may have been source of bleeding & anemia (though no overt bleeding found). Fe supplementation & monitor. Left renal artery stenosis (Chronic 08/30/16). 08/21/16 [facility] Vascular Surgery consult: moderate-severe stenosis; given well-controlled HTN & normal kidney function, renal artery intervention not indicated at this t. 10/2016: 3 mo f/u renal duplex US showing >60% stenosis with decent blood flow to L kidney. Consider stent placement if BP becomes poorly controlled or renal function begins to deteriorate. Leg cramps (Chronic 04/01/14). Low Mg+ --> supplementation helped, but caused diarrhea; handout on dietary Mg+ given. Microalbuminuria due to type 2 diabetes mellitus (Chronic). Obstructive sleep apnea (Chronic 03/02/14). CPAP. Osteopenia (Chronic 02/14/16). DEXA 02/14/16: Fem neck t-score -1.2 --> WHO FRAX major osteoporotic 13% & hip fx 1.3% risk --> does not qualify for bisphosphonates --> Ca & vit D. 03/2017 L3 compression fx --> re-calc WHO FRAX major osteoporotic 21% & hip fx 2.3% risk --> now qualifies for bisphosphonate tx, started 03/2017. Probable allergic rxn to Alendronate (1st pill Sat, and stayed thru today (but no worsening), 07/05. Agree to STOP for now. Pneumonia (Resolved). Reflux esophagitis (Chronic 07/16/12). LA GRADE B , EGD W/ BX 05/04/15. Solitary pulmonary nodule (Resolved 12/22/15). Incidental finding of 6 mm pulm nodule RLL on 11/07/[address] with 6 month f/u chest CT recommended; 04/2016 6-month f/u chest CT: resolution of nodule. 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 08/21/16 [facility] Vascular Surgery consult: moderate stenosis, not source of clinical pathology, & no intervention or further evaluation indicated. Superior mesenteric artery stenosis (Chronic). Tobacco use disorder (Resolved). 30-50 PY, QUIT 1999. Surgical History. Biopsy, Lymph Node (Resolved ~2003). (L) axilla for breast CA. Breast, Lumpectomy (Resolved ~2003). B/L for breast CA. Extraction of cataract (Resolved). left eye surgical removal with intraocular lens implant. Dr Agee. H/O laminectomy (Acute ~10/06/12). L5S1 Dr. Jarrod Ballard. Oophrectomy, Right (Resolved ~2007). For unknown reason. Tooth Extractions (Resolved). Multiple PREVIOUS FUNCTIONAL STATUS/SOCIAL/FAMILY SUPPORTS:: Nahed lives with her , Isaac in [place]. They have four adult children and many grandchildren. She uses oxygen in a CPAP machine at night, but is otherwise independent with her ADL's. CURRENT FUNCTIONAL STATUS:: Nahed was sitting up in her bed when CM met with her. Her , Isaac, daughter, Maria Del Carmen and two of her granddaughters were in the room with her. She was pleasant and engaged in conversation. She reported that the MD had seen her and told her that he would be discharging her home. She is agreeable to the plan. CM will follow. ADVANCE DIRECTIVES:: On file, Maria Del Carmen Venegas is listed as agent. Has patient been provided with information about the portal?: Yes Did the patient sign up for the portal?: Yes (already signed up) CODE STATUS:: Full Code INSURANCE COVERAGE / FINANCIAL ISSUES:: MCR, GLADYS/BS CURRENT HOME/COMMUNITY SERVICES/EQUIPMENT:: Nahed currently uses a CPAP machine at night. PRIMARY CARE PHYSICIAN:: María Mendoza POTENTIAL DISCHARGE NEEDS:: Evaluations for further needs, follow up appointments PATIENT/FAMILY EDUCATION NEEDS:: Review of discharge instructions, discussion of self care needs including Ask Me Three ANTICIPATED BARRIERS TO DISCHARGE:: None identified at this time. TRANSPORTATION:: Her , Isaac will drive her home via private vehicle. PLAN:: Anticipate Nahed will discharge home with no additional services when medically cleared. Isaac will drive her home when ready. Follow up appointments as recommended. CM will continue to follow.
--- NOTE | 2019-06-05 18:28 | PDOC.CMDIS ---
- If Service Date Differs Date of service: 06/05/19 Time of Service: 18:28 LACE Index Scoring Tool - Questions: Length of Stay (in days): 2 Acuity (Admit via E.D.?): Yes Comorbidities: Diabetes w/o Complication, Chronic Pulmonary Disease E.D. Visits: 3 - Answers: Total Score: 11 Risk of Readmission: High Risk Care Management Discharge Reason for Hospitalization: Pneumonia Discharge Plan: Nahed will discharge home with no additional services. , Isaac will drive her home when ready. Follow up appointments as recommended. Patient/Family Education Needs: Review discharge instructions, discussion of self care needs including Ask Me Three
== END 2019-06-05 13:00 | disposition home or self-care (01) | DRG 194 ==
LOC: ER 08:56 → MS 11:18
PROVIDERS: Emergency Medicine; Admitting Provider Internal Medicine; Emergency Provider Emergency Medicine; PCP Nurse Practitioner Family; Visit Provider Internal Medicine
DX: J18.9 Pneumonia, unspecified organism (principal); J44.0 Chronic obstructive pulmonary disease with (acute) lower respiratory infection; N17.9 Acute kidney failure, unspecified; J44.1 Chronic obstructive pulmonary disease with (acute) exacerbation; E87.1 Hypo-osmolality and hyponatremia; Z87.891 Personal history of nicotine dependence; E87.8 Other disorders of electrolyte and fluid balance, not elsewhere classified; E11.9 Type 2 diabetes mellitus without complications; G47.33 Obstructive sleep apnea (adult) (pediatric); K21.0 Gastro-esophageal reflux disease with esophagitis; I10 Essential (primary) hypertension; E78.5 Hyperlipidemia, unspecified; Z79.84 Long term (current) use of oral hypoglycemic drugs
CPT/HCPCS: 36410; 36415; 80048; 80053; 87040; 87449; 93005; 94618; 94640; 96361; 96365; 99222; 99238; 99285; 71046; 83605; 83735; 84484; 85025; 87070; 87205; 93010; 99284; G0237; J1644; J2405; J7512; J7620

== ENCOUNTER 2019-07-20 01:41 | Outpatient (CLI) | payer MEDICARE, BC, SELFPAY ==
--- NOTE | 2019-07-20 10:50 | DI.RAD_ITS ---
EXAM: XR CHEST 2V PA LATERAL INDICATION: f/u to ensure resolution of PNA. COMPARISON: CHEST 2 VIEWS PA,LAT from 01/17/2018 CHEST 2 VIEWS PA,LAT from 03/11/2018 TECHNIQUE: 2D digital imaging was performed. FINDINGS: The heart size is normal. Linear densities are seen in the lower lung cole consistent with mild ar eas of scarring. No infiltrates are identified. There is no evidence of pleural effusion. IMPRESSION: Clearing of previously noted infiltrates.
== END 2019-07-20 02:01 ==
PROVIDERS: PCP Nurse Practitioner Family; Visit Provider Nurse Practitioner Family
DX: J18.9 Pneumonia, unspecified organism (principal); J98.4 Other disorders of lung
CPT/HCPCS: 71046

== ENCOUNTER 2019-08-05 03:33 | Emergency (ER) | payer MEDICARE, BC, SELFPAY ==
[2019-08-05 03:38] VITALS: BP 128/59; PULSE 90; RESP 18; TEMP 36.6; O2SAT 94
--- NOTE | 2019-08-05 03:48 | ED.GENADUL_ITS ---
Discharge Plan Disposition Patient Disposition: HOME Condition: Good Discharge Details Chief Complaint: Nk/Back Pain Clinical Impression: Neck pain on right side, Diarrhea Primary Care Provider: María Mendoza ED Provider: Michael Mueller [place] Meds and New Rx's Prescriptions: Continued Incruse Ellipta 62.5 mcg/actuation blister with device 62.5 mcg Inhalation DAILY Qty: 3 RF: 3 rosuvastatin [Crestor] 20 mg tablet 20 mg PO DAILY Qty: 90 RF: 3 glipizide 10 mg tablet 10 mg PO BID Qty: 180 RF: 3 calcium carbonate-vitamin D3 600 mg(1,500mg) -800 unit tablet 2 tab PO DAILY Qty: 180 RF: 3 magnesium oxide 400 mg (241.3 mg magnesium) tablet 800 mg PO BID Qty: 360 RF: 3 Victoza 3-José 0.6 mg/0.1 mL (18 mg/3 mL) pen injector 1.2 mg SC DAILY Qty: 9 RF: 3 metformin 1,000 mg tablet 1,000 mg PO BID Qty: 180 RF: 3 omeprazole 20 mg capsule,delayed release(DR/EC) 20 mg PO DAILY Qty: 90 RF: 3 montelukast [Singulair] 10 mg tablet 10 mg PO DAILY Qty: 90 RF: 3 cetirizine 10 mg tablet 10 mg PO DAILY Qty: 90 RF: 3 ferrous sulfate 325 mg (65 mg iron) tablet See Rx Instructions PO .COMPLEX Qty: 270 RF: 3 (DME) nebulizer and compressor device See Dose Instructions .ROUTE .MEDSUPPLY Qty: 1 RF: 0 albuterol sulfate 2.5 mg /3 mL (0.083 %) solution for nebulization 2.5 mg IH QID PRN (Reason: bronchospasm) Qty: 180 RF: 6 Jardiance 25 mg tablet 25 mg PO DAILY AM Qty: 90 RF: 3 betamethasone dipropionate 0.05 % ointment 1 applic TP BID PRN (Reason: rash) Qty: 45 RF: 1 Oxygen EACH NS At Night Qty: 2 RF: 0 multivitamin [Daily Multi-Vitamin] 1 EACH tablet 1 ea PO DAILY RF: 0 albuterol sulfate [ProAir HFA] 8.5 GM HFA aerosol inhaler 1 puff Inhalation Q4H PRN Qty: 2 RF: 3 VSL#3 1 EACH capsule 2 packet PO DAILY Qty: 60 RF: 0 (DME) lancets [Sure Comfort Lancets] 1 EACH misc 1 ea Miscellaneous DAILY Qty: 1 RF: 3 acetaminophen 500 MG tablet 1,000 mg PO TID PRNQty: 90 RF: 0 cyanocobalamin (vitamin B-12) 1,000 mcg tablet 1,000 mcg PO DAILY Qty: 90 RF: 3 hydrochlorothiazide 50 mg tablet 50 mg PO QAM Qty: 90 RF: 3 Symbicort 160-4.5 mcg/actuation HFA aerosol inhaler 2 puff Inhalation BID Qty: 3 RF: 3 Combivent Respimat 20-100 mcg/actuation mist 1 - 2 puff Inhalation .Q4-6H PRN (Reason: shortness of breath or wheezing) Qty: 3 RF: 3 valsartan 320 mg tablet 320 mg PO DAILY Qty: 90 RF: 3 (DME) FreeStyle Lite Strips strip 1 ea Miscellaneous BID Qty: 180 RF: 3 atenolol 100 mg tablet 100 mg PO DAILY Qty: 30 RF: 11 (DME) pen needle, diabetic [Pen Needle] 31 gauge x 5/16 needle See Rx Instructions .ROUTE .MEDSUPPLY Qty: 100 RF: 3 aspirin [Aspir-81] 81 MG tablet,delayed release (DR/EC) 81 mg PO DAILY Qty: 90 RF: 3 Victoza 2-José 0.6 mg/0.1 mL (18 mg/3 mL) Pen Injector 1.2 mg SUBCUT DAILY RF: 0 Discharge Instructions Additional Instructions: Your neck pain seems to be related to musculoskeletal pain. Try heat or cold therapy whichever feels better as well as ibuprofen for the next couple of days. Please bring stool sample back to lab for testing. Contact primary care for follow-up. If negative for infectious causes consider holding Victoza for a week or so to see if GI symptoms clear up. Discussed this with primary care before doing so. Return to ED for fever, persistent vomiting, abdominal pain, bloody diarrhea, other concerns or problems. Referrals: Maíra Mendoza NP [Primary Care Provider] - Medical Decision Making Patient's acute complaint of right lateral neck pain appears to be musculoskeletal with origin at the insertion of the sternocleidomastoid muscle on the right mastoid. There is no fluctuance, mass, erythema. Recommend nonsteroidals and either heat or cold therapy depending on which makes it feel better. There is no specific injury. In regards to the diarrhea for 1 month, it is possible the GI symptoms are related to the Victoza. She is not having any significant pain. It is possible C. difficile may be etiology given hospitalization and antibiotics in the month prior to onset of diarrhea. There is been no travel. Doubt bacterial or Giardia but will give lab slip to bring back stool sample for testing of infect ious etiology. Otherwise follow-up with primary care next week. If negative stool studies consider holding Victoza for a week or so to see if symptoms resolve. If not will need continued work-up for GI symptoms. Return to ED if fever, abdominal pain, persistent vomiting, bloody diarrhea, other concerns or problems. Medical Records Medical records reviewed: Yes I reviewed the patient's medical records. HPI General Mode of arrival: ambulatory . Date/Time Provider Initiated Documentation: 08/05/19 03:43 . Limitations to Documentation: no limitations . Information obtained by: patient, RN notes reviewed and old records reviewed . HPI Narrative: Patient presents to ED with 2 complaints, one acute and one subacute. Patient reports waking up this morning with severe right lateral neck pain that is worse with turning her head to the right. There is no discrete injury. Pain is just behind the right ear and down the neck a little bit. There is no posterior neck pain. There is no anterior neck pain. There is no fever or URI symptoms. There is no chest pain or shortness of breath. Patient also complains of nausea, bloating, intermittent vomiting, persistent watery diarrhea for a months now. She has loss of appetite and weight loss. She attributes it to the start of Victoza. However, patient was in the hospital and on antibiotics in June for pneumonia. She denies fever or bloody diarrhea. She denies abdominal pain other than some occasional cramps. Related Data Home Medications Medication Instructions Recorded Confirmed aspirin [Aspir-81] 81 mg PO DAILY #90 03/30/13 06/09/19 multivitamin [Daily Multi-Vitamin] 1 ea PO DAILY 03/19/17 06/09/19 albuterol sulfate [ProAir HFA] 1 puff INHALATION Q4H PRN #2 04/02/17 06/09/19 inhaler VSL#3 2 packet PO DAILY #60 packet 05/01/17 06/09/19 lancets [Sure Comfort Lancets] #1 box 06/24/17 06/09/19 acetaminophen 1,000 mg PO TID PRN #90 tab-cap 12/16/17 06/09/19 cyanocobalamin (vitamin B-12) 1,000 mcg PO DAILY #90 tab-cap 05/07/18 06/09/19 1,000 mcg tablet hydrochlorothiazide 50 mg tablet 50 mg PO QAM #90 tab 08/11/18 06/09/19 albuterol sulfate 2.5 mg IH QID PRN #180 ml 08/21/18 06/09/19 nebulizer and compressor #1 each 08/21/18 06/09/19 ferrous sulfate 325 mg (65 mg See Rx Instructions PO .COMPLEX 10/01/18 06/09/19 iron) tablet #270 tab-cap budesonide-formoterol HFA 160 2 puff INHALATION BID #3 inhaler 10/15/18 06/09/19 mcg-4.5 mcg/actuation aerosol inhaler ipratropium 20 mcg-albuterol 100 1 - 2 puff INHALATION .Q4-6H PRN 10/17/18 06/09/19 mcg/actuation mist for inhalation #3 device betamethasone dipropionate 0.05 % 1 applic TP BID PRN #45 gm 11/26/18 06/09/19 topical ointment empagliflozin 25 mg tablet 25 mg PO DAILY AM #90 tab-cap 01/05/19 06/09/19 rosuvastatin 20 mg tablet 20 mg PO DAILY #90 tab-cap 01/19/19 06/09/19 umeclidinium 62.5 mcg/actuation 62.5 mcg INHALATION DAILY #3 disk 01/19/19 06/09/19 blister powder for inhalation valsartan 320 mg tablet 320 mg PO DAILY #90 tab-cap 01/29/19 06/09/19 blood sugar diagnostic #180 strip 02/25/19 06/09/19 calcium carbonate-vitamin D3 600 2 tab PO DAILY #180 tab-cap 04/06/19 06/09/19 mg (1,500 mg)-800 unit tablet glipizide 10 mg tablet 10 mg PO BID #180 tab-cap 04/06/19 06/09/19 magnesium oxide 400 mg (241.3 mg 800 mg PO BID #360 tab-cap 04/06/19 06/09/19 magnesium) tablet atenolol 100 mg tablet 100 mg PO DAILY #30 tab-cap 06/10/19 cetirizine 10 mg tablet 10 mg PO DAILY #90 tab-cap 07/06/19 07/06/19 liraglutide 0.6 mg/0.1 mL (18 mg/3 1.2 mg SC DAILY #9 ml 07/06/19 07/06/19 mL) subcutaneous pen injector metformin 1,000 mg tablet 1,000 mg PO BID #180 tab-cap 07/06/19 07/06/19 montelukast 10 mg tablet 10 mg PO DAILY #90 tab-cap 07/06/19 07/06/19 omeprazole 20 mg capsule,delayed 20 mg PO DAILY #90 tab-cap 07/06/19 07/06/19 release pen needle, diabetic 31 gauge x #100 each 07/15/1901/15 Victoza 2-José 1.2 mg SUBCUT DAILY 08/05/19 08/05/19 Previous Rx's Medication Instructions Recorded lancets [Sure Comfort Lancets] #1 box 06/24/17 cyanocobalamin (vitamin B-12) 1,000 mcg PO DAILY #90 tab-cap 05/07/18 1,000 mcg tablet hydrochlorothiazide 50 mg tablet 50 mg PO QAM #90 tab 08/11/18 albuterol sulfate 2.5 mg IH QID PRN #180 ml 08/21/18 nebulizer and compressor #1 each 08/21/18 ferrous sulfate 325 mg (65 mg See Rx Instructions PO .COMPLEX 10/01/18 iron) tablet #270 tab-cap budesonide-formoterol HFA 160 2 puff INHALATION BID #3 inhaler 10/15/18 mcg-4.5 mcg/actuation aerosol inhaler ipratropium 20 mcg-albuterol 100 1 - 2 puff INHALATION .Q4-6H PRN 10/17/18 mcg/actuation mist for inhalation #3 device betamethasone dipropionate 0.05 % 1 applic TP BID PRN #45 gm 11/26/18 topical ointment empagliflozin 25 mg tablet 25 mg PO DAILY AM #90 tab-cap 01/05/19 rosuvastatin 20 mg tablet 20 mg PO DAILY #90 tab-cap 01/19/19 umeclidinium 62.5 mcg/actuation 62.5 mcg INHALATION DAILY #3 disk 01/19/19 blister powder for inhalation valsartan 320 mg tablet 320 mg PO DAILY #90 tab-cap 01/29/19 blood sugar diagnostic #180 strip 02/25/19 calcium carbonate-vitamin D3 600 2 tab PO DAILY #180 tab-cap 04/06/19 mg (1,500 mg)-800 unit tablet glipizide 10 mg tablet 10 mg PO BID #180 tab-cap 04/06/19 magnesium oxide 400 mg (241.3 mg 800 mg PO BID #360 tab-cap 04/06/19 magnesium) tablet atenolol 100 mg tablet 100 mg PO DAILY #30 tab-cap 06/10/19 cetirizine 10 mg tablet 10 mg PO DAILY #90 tab-cap 07/06/19 liraglutide 0.6 mg/0.1 mL (18 mg/3 1.2 mg SC DAILY #9 ml 07/06/19 mL) subcutaneous pen injector metformin 1,000 mg tablet 1,000 mg PO BID #180 tab-cap 07/06/19 montelukast 10 mg tablet 10 mg PO DAILY #90 tab-cap 07/06/19 omeprazole 20 mg capsule,delayed 20 mg PO DAILY #90 tab-cap 07/06/19 release pen needle, diabetic 31 gauge x #100 each 07/15/1901/15 Allergies Allergy/AdvReac Type Severity Reaction Status Date / Time propylene glycol Allergy Severe Rash Verified 08/05/19 03:42 adhesive tape Allergy Unknown Skin Rash Verified 08/05/19 03:42 alendronate sodium Allergy Unknown Hives Verified 08/05/19 03:42 azithromycin AdvReac Intermediate dry heaves Verified 08/05/19 03:42 and diarrhea hydrocodone bitartrate AdvReac Intermediate Nausea Verified 08/05/19 03:42 [From Vicodin] LANDON Inhibitors AdvReac Unknown COUGH,DYSPN Verified 08/05/19 03:42 EA oxycodone HCl [From Percocet] AdvReac Unknown NAUSEA/VOMI Verified 08/05/19 03:42 TING fragranced creams Allergy Intermediate Skin Rash Uncoded 08/05/19 03:42 parabin wax Allergy Intermediate Skin Rash Uncoded 08/05/19 03:42 General Stated Complaint: Nk/Back Pain BRUNA: 3 Review of Systems Narrative: As documented in HPI otherwise negative as below. Const: no fever, chills, weakness Resp: no cough, SOB, pleuritic pain CV: no CP, diaphoresis, edema, syncope GI: abdominal cramps, nausea, vomiting, diarrhea Neuro: no headache, numbness, focal weakness, confusion [facility] Medical History Allergic rhinitis (Chronic) Anemia (Chronic 02/11/14) Suspect chronic dz/bone marrow suppression s/p breast CA tx (radiation); s/p GI workup (possible AVMs?), NL B12/folate, elevated Epo, NL retic count; chronic iron supplementation Atherosclerosis of both carotid arteries (Chronic 11/12/16) 10/2016 [facility] Vascular Consult: carotid US showing 16-49% stenosis both internal carotids Recommend annual carotid US Breast CA R 2001, L2003 s/p bilateral lumpectomy. S/P XRT and Tamoxifen. Chronic GI bleeding (Chronic) Chronic kidney disease (CKD) (Chronic) Chronic obstructive airway disease (Chronic 06/04/12) [facility] Pulmonology (Dr. Cruz) Moderate-very severe Last OV & PFTs 08/21/16 [facility] Night-time Oxygen Per pulmonolgy() Severe-very severe KONRAD 10/31/16 Compression fracture of lumbar vertebra (Resolved 03/14/17) Coronary artery disease (Chronic 11/14/15) Depression (Resolved 11/30/02) s/p of brother (on SSRI for short time) Diabetes mellitus (Chronic 11/27/04) Dx'ed early Goal A1C <7.5% DJD (degenerative joint disease) (Chronic 02/04/14) Lumbar spine--multiple level on MRI Surgery 10/2011, [facility] Dr. Smith Essential hypertension (Chronic 05/16/04) H/O laminectomy (Resolved) L5S1 Heart murmur (Chronic) 07/11/2016 echo: mild-moderate mitral regurgitation Hiatal hernia (Chronic 02/11/14) Smaller portions Endoscopy 2011 2/2 anemia (nothing found), [facility] Hyperlipidemia (Chronic 07/17/07) Pt on high intensity statin therapy Hypomagnesemia (Chronic 03/04/17) Intraabdominal calcification (Chronic 11/14/15) Incidental finding on CT 2 mm between bladder and uterus, no further eval required, AOC Iron deficiency anemia (Chronic 01/02/17) S/p colo & EGD 05/2015, then capsule endoscopy & push enteroscopy with no definitive etiology identified 11/14/2017: repeat colonoscopy (due to return of anemia) showing a colonic angioectasia, which may have been source of bleeding & anemia (though no overt bleeding found) Fe supplementation & monitor Left renal artery stenosis (Chronic 08/30/16) 08/21/16 [facility] Vascular Surgery consult: moderate-severe stenosis; given well- controlled HTN & normal kidney function, renal artery intervention not indicated at this t 10/2016: 3 mo f/u renal duplex US showing >60% stenosis with decent blood flow to L kidney Consider stent placement if BP becomes poorly controlled or renal function begins to deteriorate Leg cramps (Chronic 04/01/14) Low Mg+ --> supplementation helped, but caused diarrhea; handout on dietary Mg+ given Microalbuminuria due to type 2 diabetes mellitus (Chronic) Obstructive sleep apnea (Chronic 03/02/14) CPAP Osteopenia (Chronic 02/14/16) DEXA 02/14/16: Fem neck t-score -1.2 --> WHO FRAX major osteoporotic 13% & hip fx 1.3% risk --> does not qualify for bisphosphonates --> Ca & vit D 03/2017 L3 compression fx --> re-calc WHO FRAX major osteoporotic 21% & hip fx 2.3% risk --> now qualifies for bisphosphonate tx, started 03/2017 Probable allergic rxn to Alendronate (1st pill Sat, and stayed thru today (but no worsening), 07/05. Agree to STOP for now. 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 Dr Agee H/O laminectomy (Acute ~10/06/12) L5S1 Huyen Rodrigues Day, Dr. Garay Oophrectomy, Right (Resolved ~2007) For unknown reason Tooth Extractions (Resolved) Multiple Social History Smoking/Tobacco Use Status: Former Tobacco Use Quit Date: 09/02/00 Pack-years: 37 Tobacco: How many years used: 25 Alcohol Intake: former Details: none Drug use: Never Substance use type: does not use Adopted: No Caregiver/Support person: No Foster care: No Household members: spouse Number of Children: 4 Communication Needs: None Pets and animals: No Current gender identity: female What type of physical activity do you participate in: regular exercise Duration: < 15 minutes/day Frequency: 3-4 times per week Mell/Christian: Confucianist Seatbelt use: always Drive intox or ride w/intox [employer] aut[employer] 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 Heart rate and blood pressure are normal. Room air O2 saturation mid 90s and patient with history of COPD and former smoker. Const: WDWN elderly female in NAD. HEENT: NC/AT. Normal facial exam. Ears/TMs normal. Eyes: Normal conjunctiva and sclera. Neck: Supple but pain when turning head to right. Trachea midline. Tender at the insertion of the SCM on the right mastoid area. No mass/fluctuance. Lungs: Normal respiratory effort. Lungs with some scattered wheeze. Cor: RRR without murmur/gallop. GI: Soft. NT/ND. No guarding or rebound. Neuro: A+O x 3. CN grossly in tact. Good strength and sensation. Ext: No C/C/E. Skin: Warm and dry without rash. Course Vital Signs Vital signs: Vital Signs Temperature 97.9 F 08/05/19 03:38 Pulse 90 08/05/19 03:38 Respiratory Rate 18 08/05/19 03:38 Blood Pressure 128/59 L 08/05/19 03:38 Pulse Oximetry 94 L 08/05/19 03:38 Temperature 97.9 F 08/05/19 03:38 Temperature Source Skin 08/05/19 03:38 Pulse 90 08/05/19 03:38 Respiratory Rate 18 08/05/19 03:38 Respiratory Effort Non-Labored 08/05/19 03:46 Blood Pressure 128/59 L 08/05/19 03:38 Pulse Oximetry 94 L 08/05/19 03:38 Pain Level 8 08/05/19 03:38
== END 2019-08-05 04:22 | disposition home or self-care (01) ==
PROVIDERS: Emergency Provider Emergency Medicine; PCP Nurse Practitioner Family
DX: M54.2 Cervicalgia (principal); R19.7 Diarrhea, unspecified; E11.22 Type 2 diabetes mellitus with diabetic chronic kidney disease; Z79.4 Long term (current) use of insulin; I12.9 Hypertensive chronic kidney disease with stage 1 through stage 4 chronic kidney disease, or unspecified chronic kidney disease; N18.9 Chronic kidney disease, unspecified; J44.9 Chronic obstructive pulmonary disease, unspecified; Z87.891 Personal history of nicotine dependence
CPT/HCPCS: 99282

== ENCOUNTER 2019-08-07 07:46 | Outpatient (REF) | payer MEDICARE, BC, SELFPAY ==
[2019-08-08 11:55] LABS: Campylobacter PCR Negative (Negative); Salmonella PCR Negative (Negative); Shiga Toxin PCR Negative (Negative); Shigella/Enteroinvasive Ecoli Negative (Negative)
== END 2019-08-07 08:06 ==
LOC: LBN 07:46
PROVIDERS: PCP Nurse Practitioner Family; Visit Provider Emergency Medicine
DX: R19.7 Diarrhea, unspecified (principal)
CPT/HCPCS: 87329; 87505; 87324

== ENCOUNTER 2019-10-20 10:55 | Outpatient (CLI) | payer MEDICARE, BC, SELFPAY ==
--- NOTE | 2019-10-20 13:40 | DI.RAD_ITS ---
EXAM: XR CHEST 2V PA AND LATERAL INDICATION: RASPY COUGH, R/O PNEUMONIA, R05 COUGH. COMPARISON: XR CHEST 2V PA LATERAL from 07/20/2019 TECHNIQUE: 2D digital imaging was performed. FINDINGS: The heart size and pulmonary vasculature are stable. No infiltrates are seen. There are no pleural effusions or pneumothoraces. There are degenerative changes in the spine. IMPRESSION: No acute pulmonary process.
== END 2019-10-20 11:15 ==
PROVIDERS: PCP Nurse Practitioner Family; Visit Provider Family Medicine
DX: R05 Cough (principal)
CPT/HCPCS: 71046

== ENCOUNTER 2019-11-12 10:41 | Outpatient (CLI) | payer MEDICARE, BC, SELFPAY ==
[2019-11-12 11:28] LABS: Abs Immature Grans 0.01 k/cumm (0.0-0.09); Absolute Basophil Count 0.01 k/cumm (0.0-0.2); Absolute Eosinophil Count 0.09 k/cumm (0.0-0.7); Absolute Lymphocyte Count 1.09 k/cumm (1.2-3.4); Absolute Monocyte Count 0.33 k/cumm (0.11-0.7); Basophils % 0.2; Eosinophils % 2.2; HCT 38.1 % (36.0-46.0); HGB 12.1 g/dL (12.0-15.5); Immature Grans % 0.2 %; Lymphocytes % 27.1; Mean Corp. HGB Concentration 31.8 g/dL (32.0-36.0); Mean Corpuscular Volume 91.4 fL (80-95); Mean Platelet Volume 8.2 fL (8.0-11.0); Monocytes % 8.2; Neutrophils % 62.1; Platelet Count 368 x1000/uL (130-400); RBC 4.17 m/cumm (4.00-5.20); White Blood Cell Count 4.02 k/cumm (4.4-10.8)
[2019-11-12 12:12] LABS: ALT 31 U/L (14-59); AST 21 U/L (15-37); Albumin 3.6 g/dL (3.4-5.0); Alkaline Phosphatase 57 U/L (46-116); Anion Gap 7.9 mmol/L (3-11); BUN 29 mg/dL (7-18); Bilirubin, Total 0.3 mg/dL (0.2-1.0); CO2 33.1 mmol/L (21.0-32.0); Calcium 9.3 mg/dL (8.5-10.1); Calculated LDL 39 mg/dL (<100); Chloride 99 mmol/L (98-107); Cholesterol 138 mg/dL (<200); Glucose 124 mg/dL (74-106); HDL Cholesterol 66 mg/dL (40-60); Magnesium 1.6 mg/dL (1.8-2.4); Potassium 4.8 mmol/L (3.5-5.1); Sodium 140 mmol/L (136-145); Total Protein 7.8 g/dL (6.4-8.2); Triglyceride 169 mg/dL (<150)
[2019-11-12 12:14] LABS: COMMENT (LAB VIEW ONLY) 94.32 mg/dL; Microalb ug/mg Crea 32.8 ug/mg Cr
== END 2019-11-12 11:01 ==
PROVIDERS: PCP Nurse Practitioner Family; Visit Provider Nurse Practitioner Family
DX: E83.42 Hypomagnesemia; Z85.3 Personal history of malignant neoplasm of breast; E78.5 Hyperlipidemia, unspecified; E11.22 Type 2 diabetes mellitus with diabetic chronic kidney disease
CPT/HCPCS: 36415; 80053; 80061; 82043; 82570; 83735; 85025

== ENCOUNTER 2020-01-29 20:03 | Emergency (ER) | payer MEDICARE, BC, SELFPAY ==
[2020-01-29 20:07] VITALS: BP 119/66; PULSE 84; RESP 18; TEMP 36.7; O2SAT 93
--- NOTE | 2020-01-29 20:30 | ED.GENADUL_ITS ---
Discharge Plan Disposition Patient Disposition: HOME Discharge Details Chief Complaint: RashLesion Clinical Impression: Contact dermatitis, Cellulitis Primary Care Provider: María Mendoza ED Provider: Shahnaz Fraire Home Meds and New Rx's Prescriptions: New cephalexin 500 mg capsule 500 mg PO BID 7 Days Qty: 14 RF: 0 prednisone 20 mg tablet 60 mg PO DAILY 5 Days Qty: 15 RF: 0 hydroxyzine HCl 25 mg tablet 25 mg PO BID PRN (Reason: itching) Qty: 10 RF: 0 Continued Incruse Ellipta 62.5 mcg/actuation blister with device 62.5 mcg Inhalation DAILY Qty: 3 RF: 3 glipizide 10 mg tablet 10 mg PO BID Qty: 180 RF: 3 calcium carbonate-vitamin D3 600 mg(1,500mg) -800 unit tablet 2 tab PO DAILY Qty: 180 RF: 3 magnesium oxide 400 mg (241.3 mg magnesium) tablet 800 mg PO BID Qty: 360 RF: 3 metformin 1,000 mg tablet 1,000 mg PO BID Qty: 180 RF: 3 omeprazole 20 mg capsule,delayed release(DR/EC) 20 mg PO DAILY Qty: 90 RF: 3 montelukast [Singulair] 10 mg tablet 10 mg PO DAILY Qty: 90 RF: 3 cetirizine 10 mg tablet 10 mg PO DAILY Qty: 90 RF: 3 Lantus Solostar U-100 Insulin 100 unit/mL (3 mL) insulin pen 10 unit SC HS Qty: 3 RF: 3 clotrimazole 1 % ointment 1 applic TP BID 14 Days Qty: 56.7 RF: 1 Lac-Hydrin Five 5 % lotion 1 applic TP BID PRN (Reason: dry, cracked hands) Qty: 226 RF: 0 (DME) nebulizer and compressor device See Dose Instructions .ROUTE .MEDSUPPLY Qty: 1 RF: 0 albuterol sulfate 2.5 mg /3 mL (0.083 %) solution for nebulization 2.5 mg IH QID PRN (Reason: bronchospasm) Qty: 180 RF: 6 Jardiance 25 mg tablet 25 mg PO DAILY AM Qty: 90 RF: 3 betamethasone dipropionate 0.05 % ointment 1 applic TP BID PRN (Reason: rash) Qty: 45 RF: 1 Oxygen EACH NS At Night Qty: 2 RF: 0 multivitamin [Daily Multi-Vitamin] 1 EACH tablet 1 ea PO DAILY RF: 0 albuterol sulfate [ProAir HFA] 8.5 GM HFA aerosol inhaler 1 puff Inhalation Q4H PRN Qty: 2 RF: 3 (DME) lancets [Sure Comfort Lancets] 1 EACH misc 1 ea Miscellaneous DAILY Qty: 1 RF: 3 acetaminophen 500 MG tablet 1,000 mg PO TID PRNQty: 90 RF: 0 cyanocobalamin (vitamin B-12) 1,000 mcg tablet 1,000 mcg PO DAILY Qty: 90 RF: 3 budesonide-formoterol [Symbicort] 160-4.5 mcg/actuation HFA aerosol inhaler 2 puff Inhalation BID Qty: 3 RF: 3 Combivent Respimat 20-100 mcg/actuation mist 1 - 2 puff Inhalation .Q4-6H PRN (Reason: shortness of breath or wheezing) Qty: 3 RF: 3 valsartan 320 mg tablet 320 mg PO DAILY Qty: 90 RF: 3 (DME) blood sugar diagnostic [FreeStyle Lite Strips] strip 1 ea Miscellaneous BID Qty: 180 RF: 3 atenolol 100 mg tablet 100 mg PO DAILY Qty: 30 RF: 11 (DME) pen needle, diabetic [Pen Needle] 31 gauge x 5/16 needle See Rx Instructions .ROUTE .MEDSUPPLY Qty: 100 RF: 3 hydrochlorothiazide 50 mg tablet 50 mg PO QAM Qty: 90 RF: 2 ferrous sulfate 325 mg (65 mg iron) tablet See Rx Instructions PO .COMPLEX Qty: 270 RF: 3 triamcinolone acetonide 0.1 % ointment 1 applic TP BID RF: 0 rosuvastatin [Crestor] 20 mg tablet 20 mg PO DAILY Qty: 90 RF: 3 aspirin [Aspir-81] 81 MG tablet,delayed release (DR/EC) 81 mg PO DAILY Qty: 90 RF: 3 Discharge Instructions Instructions: Cellulitis (ED), Dermatitis (ED) Additional Instructions: Follow up with primary care provider in 3-5 days. Return to ED sooner if any worsening or concerns. Increase oral fluids. Take medications as directed. Stop anything that seems to be exacerbating the rash. Follow-up with Dr. Moreno in the next 3 to 5 days. Return to the ED if any worsening, fever or concerns. Referrals: María Mendoza, MARU [Primary Care Provider] - Medical Decision Making 69-year-old female presents with rash to her upper and lower extremities x6 days. Patient has been seen recently by appeals board referee Dr. Moreno and was given a cream to apply topically she states since then it has gotten worse. Positive pruritus and warmth. There are demarcated areas of erythema to her upper extremities with vesicles. No rash noted to her abdomen or back. It appears to be distributed in areas that are exposed to sun. She does have multiple allergies to petroleum, adhesive tape propylene glycol and others including fragrance creams. She denies any other symptoms no fever chills. She does have a past medical history of iron deficiency anemia, diabetes, hyperlipidemia, CAD, hypertension chronic kidney disease. CBC is largely within normal limits, CMP shows BUN and creatinine elevated at 42 and 1.61, glucose is 159. She does have a history of chronic kidney disease. Discussed this with patient this could be due to dehydration. She verbalized un derstanding. 2118: Upon patient reevaluation she reports that pruritus has improved. Rash is still at baseline from when she came in still red, warm I suspect this is a contact dermatitis with an overlying cellulitis due to itching. I discussed not using the lotion if it is making things worse. I will put her on 5 days of prednisone, hydroxyzine, and an oral antibiotic. For possible cellulitis. Patient remained hemodynamically stable throughout stay. This text was generated using [employer] dictation system, please disregard any oddities of phrase or misspellings. Differential diagnoses include but not limited to contact dermatitis, atopic dermatitis, poison rose or oak dermatitis, cellulitis, impetigo. Medical Records Medical records reviewed: Yes I reviewed the patient's medical records. Lab Data Lab results reviewed: Yes I reviewed the patient's lab results. HPI General Mode of arrival: ambulatory . Date/Time Provider Initiated Documentation: 01/29/20 20:09 . Limitations to Documentation: no limitations . Information obtained by: patient . HPI Narrative: 69-year-old female presents with rash to her upper and lower extremities x6 days. Patient has been seen recently by appeals board referee Dr. Moreno and was given a cream to apply topically she states since then it has gotten worse. Positive pruritus and warmth. There are demarcated areas of erythema to her upper extremities with vesicles. No rash noted to her abdomen or back. It appears to be distributed in areas that are exposed to sun. She does have multiple allergies to petroleum, adhesive tape propylene glycol and others including fragrance creams. She denies any other symptoms no fever chills. She does have a past medical history of iron deficiency anemia, diabetes, hyperlipidemia, CAD, hypertension chronic kidney disease. Related Data Home Medications Medication Instructions Recorded Confirmed aspirin [Aspir-81] 81 mg PO DAILY #90 03/30/13 01/29/20 multivitamin [Daily Multi-Vitamin] 1 ea PO DAILY 03/19/17 01/29/20 albuterol sulfate [ProAir HFA] 1 puff INHALATION Q4H PRN #2 04/02/17 01/29/20 inhaler lancets [Sure Comfort Lancets] #1 box 06/24/17 11/12/19 acetaminophen 1,000 mg PO TID PRN #90 tab-cap 12/16/17 01/29/20 cyanocobalamin (vitamin B-12) 1,000 mcg PO DAILY #90 tab-cap 05/07/18 01/29/20 1,000 mcg tablet albuterol sulfate 2.5 mg IH QID PRN #180 ml 08/21/18 01/29/20 nebulizer and compressor #1 each 08/21/18 11/12/19 budesonide-formoterol HFA 160 2 puff INHALATION BID #3 inhaler 10/15/18 01/29/20 mcg-4.5 mcg/actuation aerosol inhaler ipratropium 20 mcg-albuterol 100 1 - 2 puff INHALATION .Q4-6H PRN 10/17/18 01/29/20 mcg/actuation mist for inhalation #3 device betamethasone dipropionate 0.05 % 1 applic TP BID PRN #45 gm 11/26/18 01/29/20 topical ointment empagliflozin 25 mg tablet 25 mg PO DAILY AM #90 tab-cap 01/05/19 01/29/20 umeclidinium 62.5 mcg/actuation 62.5 mcg INHALATION DAILY #3 disk 01/19/19 01/29/20 blister powder for inhalation valsartan 320 mg tablet 320 mg PO DAILY #90 tab-cap 01/29/19 01/29/20 blood sugar diagnostic #180 strip 02/25/19 11/12/19 calcium carbonate-vitamin D3 600 2 tab PO DAILY #180 tab-cap 04/06/19 01/29/20 mg (1,500 mg)-800 unit tablet glipizide 10 mg tablet 10 mg PO BID #180 tab-cap 04/06/19 01/29/20 magnesium oxide 400 mg (241.3 mg 800 mg PO BID #360 tab-cap 04/06/19 01/29/20 magnesium) tablet atenolol 100 mg tablet 100 mg PO DAILY #30 tab-cap 06/10/19 01/29/20 cetirizine 10 mg tablet 10 mg PO DAILY #90 tab-cap 07/06/19 01/29/20 metformin 1,000 mg tablet 1,000 mg PO BID #180 tab-cap 07/06/19 01/29/20 montelukast 10 mg tablet 10 mg PO DAILY #90 tab-cap 07/06/19 01/29/20 omeprazole 20 mg capsule,delayed 20 mg PO DAILY #90 tab-cap 07/06/19 01/29/20 release pen needle, diabetic 31 gauge x #100 each 07/15/19 11/12/1901/15 hydrochlorothiazide 50 mg tablet 50 mg PO QAM #90 tab 09/23/19 01/29/20 insulin glargine 100 unit/mL (3 10 unit SC HS #3 syringe 11/12/19 01/29/20 mL) subcutaneous pen ferrous sulfate 325 mg (65 mg See Rx Instructions PO .COMPLEX 12/03/19 01/29/20 iron) tablet #270 tab-cap clotrimazole 1 % topical ointment 1 applic TP BID 14 Days #56.7 gm 12/11/19 01/29/20 ammonium lactate 5 % lotion 1 applic TP BID PRN #226 gm 12/21/19 01/29/20 triamcinolone acetonide 0.1 % 1 applic TP BID 12/23/19 01/29/20 topical ointment rosuvastatin 20 mg tablet 20 mg PO DAILY #90 tab-cap 01/28/20 01/29/20 cephalexin 500 mg PO BID 7 Days #14 cap 01/29/20 hydroxyzine HCl 25 mg PO BID PRN #10 tab 01/29/20 prednisone 60 mg PO DAILY 5 Days #15 tab 01/29/20 Previous Rx's Medication Instructions Recorded lancets [Sure Comfort Lancets] #1 box 06/24/17 cyanocobalamin (vitamin B-12) 1,000 mcg PO DAILY #90 tab-cap 05/07/18 1,000 mcg tablet albuterol sulfate 2.5 mg IH QID PRN #180 ml 08/21/18 nebulizer and compressor #1 each 08/21/18 budesonide-formoterol HFA 160 2 puff INHALATION BID #3 inhaler 10/15/18 mcg-4.5 mcg/actuation aerosol inhaler ipratropium 20 mcg-albuterol 100 1 - 2 puff INHALATION .Q4-6H PRN 10/17/18 mcg/actuation mist for inhalation #3 device betamethasone dipropionate 0.05 % 1 applic TP BID PRN #45 gm 11/26/18 topical ointment empagliflozin 25 mg tablet 25 mg PO DAILY AM #90 tab-cap 01/05/19 umeclidinium 62.5 mcg/actuation 62.5 mcg INHALATION DAILY #3 disk 01/19/19 blister powder for inhalation valsartan 320 mg tablet 320 mg PO DAILY #90 tab-cap 01/29/19 blood sugar diagnostic #180 strip 02/25/19 calcium carbonate-vitamin D3 600 2 tab PO DAILY #180 tab-cap 04/06/19 mg (1,500 mg)-800 unit tablet glipizide 10 mg tablet 10 mg PO BID #180 tab-cap 04/06/19 magnesium oxide 400 mg (241.3 mg 800 mg PO BID #360 tab-cap 04/06/19 magnesium) tablet atenolol 100 mg tablet 100 mg PO DAILY #30 tab-cap 06/10/19 cetirizine 10 mg tablet 10 mg PO DAILY #90 tab-cap 07/06/19 metformin 1,000 mg tablet 1,000 mg PO BID #180 tab-cap 07/06/19 montelukast 10 mg tablet 10 mg PO DAILY #90 tab-cap 07/06/19 omeprazole 20 mg capsule,delayed 20 mg PO DAILY #90 tab-cap 07/06/19 release pen needle, diabetic 31 gauge x #100 each 11/13/19 5/16 hydrochlorothiazide 50 mg tablet 50 mg PO QAM #90 tab 09/23/19 insulin glargine 100 unit/mL (3 10 unit SC HS #3 syringe 11/12/19 mL) subcutaneous pen ferrous sulfate 325 mg (65 mg See Rx Instructions PO .COMPLEX 12/03/19 iron) tablet #270 tab-cap clotrimazole 1 % topical ointment 1 applic TP BID 14 Days #56.7 gm 12/11/19 ammonium lactate 5 % lotion 1 applic TP BID PRN #226 gm 12/21/19 rosuvastatin 20 mg tablet 20 mg PO DAILY #90 tab-cap 01/28/20 cephalexin 500 mg PO BID 7 Days #14 cap 01/29/20 hydroxyzine HCl 25 mg PO BID PRN #10 tab 01/29/20 prednisone 60 mg PO DAILY 5 Days #15 tab 01/29/20 Allergies Allergy/AdvReac Type Severity Reaction Status Date / Time propylene glycol Allergy Severe Rash Verified 01/29/20 20:17 petrolatum,white Allergy Intermediate rash Verified 01/29/20 20:17 [From Petroleum Jelly] adhesive tape Allergy Unknown Skin Rash Verified 01/29/20 20:17 alendronate sodium Allergy Unknown Hives Verified 01/29/20 20:17 azithromycin AdvReac Intermediate dry heaves Verified 01/29/20 20:17 and diarrhea hydrocodone bitartrate AdvReac Intermediate Nausea Verified 01/29/20 20:17 [From Vicodin] liraglutide [From Victoza] AdvReac Intermediate diarhhea Verified 01/29/20 20:17 paraben AdvReac Intermediate Skin Rash Unverified 01/29/20 20:19 quaternium 15 AdvReac Intermediate generalized Unverified 01/29/20 20:19 rash LANDON Inhibitors AdvReac Unknown COUGH,DYSPN Verified 01/29/20 20:17 EA oxycodone HCl [From Percocet] AdvReac Unknown NAUSEA/VOMI Verified 01/29/20 20:17 TING fragranced creams Allergy Intermediate Skin Rash Uncoded 01/29/20 20:17 parabin wax Allergy Intermediate Skin Rash Uncoded 01/29/20 20:17 diogolidinyl AdvReac Severe Skin Rash Uncoded 01/29/20 20:20 bisphenal AdvReac Intermediate Skin Rash Uncoded 01/29/20 20:20 General Stated Complaint: RashLesion BRUNA: 4 Review of Systems Narrative: Constitutional: Negative for weight loss, alert and oriented, well groomed, normal body habitus, appears uncomfortable. HEENT: Denies trauma, headaches, blurry vision, nasal discharge, sore throat, trouble swallowing. Chest: Denies chest pain, palpitations, irregular rhythm, hypertension. Respiratory: Denies Shortness of breath, cough, hemoptysis. GI: Denies abdominal pain, nausea, vomiting, diarrhea, constipation. : Denies dysuria, hematuria, flank pain, rectal bleeding. Skin: Rash noted to her upper extremities and lower extremities positive itching. Neuro: Denies dizziness, blurry vision, weakness, syncope, headache or facial numbness. Hematologic: Denies easy bruising, intolerance to heat or cold, hair loss. [facility] Medical History Allergic rhinitis (Chronic) Anemia (Chronic 02/11/14) Suspect chronic dz/bone marrow suppression s/p breast CA tx (radiation); s/p GI workup (possible AVMs?), NL B12/folate, elevated Epo, NL retic count; chronic iron supplementation Atherosclerosis of both carotid arteries (Chronic 11/12/16) 10/2016 [facility] [place] Consult: carotid US showing 16-49% stenosis both internal carotids Recommend annual carotid US Breast CA (Resolved) R 2002, L2003 s/p bilateral lumpectomy. S/P XRT and Tamoxifen. Chronic GI bleeding (Chronic) Chronic kidney disease (CKD) (Chronic) Chronic obstructive airway disease (Chronic 06/04/12) [facility] [place] (Dr. Cruz) Moderate-very severe Last OV & PFTs 08/21/16 [facility] [place] Night-time Oxygen Per pulmonolgy() Severe-very severe KONRAD 10/31/16 Compression fracture of lumbar vertebra (Resolved 03/14/17) Coronary artery disease (Chronic 11/14/15) Depression (Resolved 11/30/02) s/p of brother (on SSRI for short time) Diabetes mellitus (Chronic 11/27/04) Dx'ed early Goal A1C <7.5% DJD (degenerative joint disease) (Chronic 02/04/14) Lumbar spine--multiple level on MRI Surgery 10/2011, [facility] Dr. Smith Essential hypertension (Chronic 05/16/04) H/O laminectomy (Resolved) L5S1 Heart murmur (Chronic) 07/11/2016 echo: mild-moderate mitral regurgitation Hiatal hernia (Chronic 02/11/14) Smaller portions Endoscopy 10/04 anemia (nothing found), [facility] [place] Hyperlipidemia (Chronic 03/18/07) Pt on high intensity statin therapy Hypomagnesemia (Chronic 03/04/17) Intraabdominal calcification (Chronic 11/14/15) Incidental finding on CT 2 mm between bladder and uterus, no further eval required, [facility] Iron deficiency anemia (Chronic 01/02/17) S/p colo & EGD 05/2015, then capsule endoscopy & push enteroscopy with no definitive etiology identified 11/14/2017: repeat colonoscopy (due to return of anemia) showing a colonic angioectasia, which may have been source of bleeding & anemia (though no overt bleeding found) Fe supplementation & monitor Left renal artery stenosis (Chronic 08/30/16) 08/21/16 [facility] [place] Surgery consult: moderate-severe stenosis; given well- controlled HTN & normal kidney function, renal artery intervention not indicated at this t 10/2016: 3 mo f/u renal duplex US showing >60% stenosis with decent blood flow to L kidney Consider stent placement if BP becomes poorly controlled or renal function begins to deteriorate Leg cramps (Chronic 04/01/14) Low Mg+ --> supplementation helped, but caused diarrhea; handout on dietary Mg+ given Microalbuminuria due to type 2 diabetes mellitus (Chronic) Obstructive sleep apnea (Chronic 03/02/14) Bipap w/ 2L 02 09/06/2019 Osteopenia (Chronic 02/14/16) DEXA 02/14/16: Fem neck t-score -1.2 --> WHO FRAX major osteoporotic 13% & hip fx 1.3% risk --> does not qualify for bisphosphonates --> Ca & vit D 03/2017 L3 compression fx --> re-calc WHO FRAX major osteoporotic 21% & hip fx 2.3% risk --> now qualifies for bisphosphonate tx, started 03/2017 Probable allergic rxn to Alendronate (1st pill Sat, and stayed thru today (but no worsening), 07/05. Agree to STOP for now. 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 Dr Agee H/O laminectomy (Acute ~10/06/12) L5S1 Huyen Frazier, Dr. Garay Oophrectomy, Right (Resolved ~2007) For unknown reason Tooth Extractions (Resolved) Multiple Family History Sister Breast cancer Mother , 89 Alzheimer's dementia Breast cancer Father , AGE 75 Alcohol abuse Cirrhosis Sister Neoplasm uterine CA Sister Heart disease Brother Heart disease Niece Breast cancer Social History Smoking/Tobacco Use Status: Former Tobacco Use Quit Date: 09/02/00 Pack-years: 37 Tobacco: How many years used: 25 Alcohol Intake: former Details: none Drug use: Never Substance use type: does not use Adopted: No Caregiver/Support person: No Foster care: No Household members: spouse Number of Children: 4 Communication Needs: None Pets and animals: No Current gender identity: female What type of physical activity do you participate in: regular exercise Duration: < 15 minutes/day Frequency: 3-4 times per week Mell/Hinduism: Sabianism Seatbelt use: always Drive intox or ride w/intox marine engine driver: No Working smoke detector in home: Yes Fire extinguisher in home: Yes Carbon monox detector in home: Yes Do you feel safe at home: Yes Do you feel safe in your relationship?: Yes Exam Narrative Exam Narrative: Constitutional: Alert and oriented x3. Appears stated age. Normal body habitus. Head: Normocephalic, no trauma. Eyes: Pupils PERRLA, Red reflex noted, EOM's intact. Eyelids symmetrical without lesions, discharge, or swelling. ENT: Bilateral TM's WNL, External ear normal to inspection, no mastoid TTP, swelling, or erythema, Nasal turbinates WNL, no nasal discharge. Normal dentition, Posterior pharynx WNL, no exudate. Chest: RRR, Normal S1, S2, distal pulses intact. Resp: Lungs clear to auscultation bilaterally, no wheezes, rales, or rhonchi. Musculoskeletal: Normal gait, 5/5 strength to all four extremities. Skin: Has a demarcated area of erythema, raised papules with vesicles to her bilateral upper extremities. Also has a papule type rash noted to her anterior shins. Warm to touch, positive pruritus. Appears to be consistent with contact dermatitis with possible overlying cellulitis. Capillary refill less than 2 sec. Neurologic: Cranial nerves II-XII intact. Alert and oriented x 3. DTR's intact. Hematologic/Lymphatic: No ecchymosis, no lymphadenopathy. Course Vital Signs Vital signs: Vital Signs Temperature 36.7 C 01/29/20 20:07 Pulse 84 01/29/20 20:07 Respiratory Rate 18 01/29/20 20:07 Blood Pressure 119/66 01/29/20 20:07 Pulse Oximetry 93 L 01/29/20 20:07 Temperature 36.7 C 01/29/20 20:07 Temperature Source Skin 01/29/20 20:07 Pulse 84 01/29/20 20:07 Respiratory Rate 18 01/29/20 20:07 Respiratory Effort 01/29/20 20:25 Blood Pressure 119/66 01/29/20 20:07 Pulse Oximetry 93 L 01/29/20 20:07 Oxygen Delivery Method Room Air 01/29/20 20:07 Oxygen Flow Rate 0 01/29/20 20:07 Pain Level 6 01/29/20 20:07 Comment uses oxygen at night 01/29/20 20:07
[2020-01-29] MEDS: hydrOXYzine HCL 25 MG TAB PO (20:40)
[2020-01-29] MEDS: Normal Saline Flush 10 ML SYR IVP (20:47)
[2020-01-29] MEDS: methylPREDNISolone SUCC 125 MG VIAL 60 MG IVP (20:47)
[2020-01-29 20:52] LABS: Abs Immature Grans 0.02 k/cumm (0.0-0.09); Absolute Basophil Count 0.01 k/cumm (0.0-0.2); Absolute Eosinophil Count 0.21 k/cumm (0.0-0.7); Absolute Lymphocyte Count 0.89 k/cumm (1.2-3.4); Absolute Monocyte Count 0.47 k/cumm (0.11-0.7); Absolute Neutrophil Count 3.57 k/cumm (1.2-6.7); Basophils % 0.2; Eosinophils % 4.1; HCT 39.4 % (36.0-46.0); HGB 12.6 g/dL (12.0-15.5); Immature Grans % 0.4 %; Lymphocytes % 17.2; Mean Corpuscular Hemoglobin 29.9 pg (27.0-33.0); Mean Corpuscular Volume 93.6 fL (80-95); Mean Platelet Volume 8.3 fL (8.0-11.0); Monocytes % 9.1; Platelet Count 259 x1000/uL (130-400); RBC 4.21 m/cumm (4.00-5.20); White Blood Cell Count 5.17 k/cumm (4.4-10.8)
[2020-01-29 21:07] LABS: ALT 51 U/L (14-59); AST 27 U/L (15-37); Albumin 3.9 g/dL (3.4-5.0); Alkaline Phosphatase 43 U/L (46-116); Anion Gap 7.3 mmol/L (3-11); BUN 42 mg/dL (7-18); Bilirubin, Total 0.3 mg/dL (0.2-1.0); CO2 27.7 mmol/L (21.0-32.0); CREATININE 1.61 mg/dL (0.55-1.02); Calcium 8.6 mg/dL (8.5-10.1); Chloride 99 mmol/L (98-107); Estimated GFR 31.64 (mL/min/1.73m2); Glucose 159 mg/dL (74-106); Potassium 4.4 mmol/L (3.5-5.1); Sodium 134 mmol/L (136-145); Total Protein 7.9 g/dL (6.4-8.2)
[2020-01-29 21:31] VITALS: BP 105/67; PULSE 73; RESP 16; O2SAT 90
== END 2020-01-29 21:30 | disposition home or self-care (01) ==
LOC: ER 21:32
PROVIDERS: Emergency Provider Registered Nurse Emergency; PCP Nurse Practitioner Family
DX: L03.113 Cellulitis of right upper limb (principal); L03.114 Cellulitis of left upper limb; L03.115 Cellulitis of right lower limb; L03.116 Cellulitis of left lower limb; L25.9 Unspecified contact dermatitis, unspecified cause; I12.9 Hypertensive chronic kidney disease with stage 1 through stage 4 chronic kidney disease, or unspecified chronic kidney disease; N18.9 Chronic kidney disease, unspecified; E11.22 Type 2 diabetes mellitus with diabetic chronic kidney disease; Z79.84 Long term (current) use of oral hypoglycemic drugs; J44.9 Chronic obstructive pulmonary disease, unspecified; Z87.891 Personal history of nicotine dependence
CPT/HCPCS: 36415; 80053; 96374; 99284; 85025; 99283; J2930

== ENCOUNTER 2020-02-04 02:44 | Outpatient (CLI) | payer MEDICARE, BC, SELFPAY ==
--- NOTE | 2020-02-04 09:20 | DI.MAMMO_ITS ---
EXAM: MG MAMMO SCREENING 60 MIN DUR CLINICAL HISTORY: breast cancer screening,PERSONAL H/O BREAST CA,Z85.3,Z12.39 TECHNIQUE: Mammograms were interpreted according to the usual protocol including computer analysis w [employer] CAD system, tomosynthesis and C-view imaging. COMPARISON: FINDINGS: Patient has reportedly had prior bilateral lumpectomies for breast carcinoma. There are vascular calcifications, macrocalcifications, and nonspecific scattered and loosely grouped microcalcifications in both breasts, left greater than right. These appear stable in comparison wit h prior examinations including April 21 19 October 2018. No new suspicious clumped microcalcificat ion seen. No new mass identified. IMPRESSION: No specific evidence of malignancy at this time. Routine screening examinations are suggested at yea rly intervals due to the patient's history of breast carcinoma. Category: BI-RADS Cat 2 - Benign Findings Breast Density - Category B - Scattered areas of fibroglandular density:
== END 2020-02-04 03:04 ==
PROVIDERS: PCP Nurse Practitioner Family; Visit Provider Nurse Practitioner Family
DX: Z12.31 Encounter for screening mammogram for malignant neoplasm of breast (principal); Z85.3 Personal history of malignant neoplasm of breast; R92.0 Mammographic microcalcification found on diagnostic imaging of breast; R92.1 Mammographic calcification found on diagnostic imaging of breast
CPT/HCPCS: 77063; 77067

== ENCOUNTER 2020-02-28 14:17 | Emergency (ER) | payer MEDICARE, BC, SELFPAY ==
--- NOTE | 2020-02-28 14:24 | ED.GENADUL_ITS ---
Discharge Plan Disposition Patient Disposition: HOME Condition: Improving Discharge Details Chief Complaint: FlankPain Clinical Impression: Low back pain, Hyperglycemia Primary Care Provider: María Mendoza ED Provider: Roxana Whittington Home Meds and New Rx's Prescriptions: New methocarbamol 500 mg tablet 500 mg PO Q6H PRN (Reason: muscle spasm) Qty: 14 RF: 0 tramadol 50 mg tablet 50 mg PO TID PRN (Reason: pain) Qty: 10 RF: 0 Continued Incruse Ellipta 62.5 mcg/actuation blister with device 62.5 mcg Inhalation DAILY Qty: 3 RF: 3 glipizide 10 mg tablet 10 mg PO BID Qty: 180 RF: 3 calcium carbonate-vitamin D3 600 mg(1,500mg) -800 unit tablet 2 tab PO DAILY Qty: 180 RF: 3 magnesium oxide 400 mg (241.3 mg magnesium) tablet 800 mg PO BID Qty: 360 RF: 3 metformin 1,000 mg tablet 1,000 mg PO BID Qty: 180 RF: 3 montelukast [Singulair] 10 mg tablet 10 mg PO DAILY Qty: 90 RF: 3 cetirizine 10 mg tablet 10 mg PO DAILY Qty: 90 RF: 3 clotrimazole 1 % ointment 1 applic TP BID 14 Days Qty: 56.7 RF: 1 Lac-Hydrin Five 5 % lotion 1 applic TP BID PRN (Reason: dry, cracked hands) Qty: 226 RF: 0 (DME) nebulizer and compressor device See Dose Instructions .ROUTE .MEDSUPPLY Qty: 1 RF: 0 albuterol sulfate 2.5 mg /3 mL (0.083 %) solution for nebulization 2.5 mg IH QID PRN (Reason: bronchospasm) Qty: 180 RF: 6 betamethasone dipropionate 0.05 % ointment 1 applic TP BID PRN (Reason: rash) Qty: 45 RF: 1 Oxygen EACH NS At Night Qty: 2 RF: 0 multivitamin [Daily Multi-Vitamin] 1 EACH tablet 1 ea PO DAILY RF: 0 albuterol sulfate [ProAir HFA] 8.5 GM HFA aerosol inhaler 1 puff Inhalation Q4H PRN Qty: 2 RF: 3 (DME) lancets [Sure Comfort Lancets] 1 EACH misc 1 ea Miscellaneous DAILY Qty: 1 RF: 3 acetaminophen 500 MG tablet 1,000 mg PO TID PRNQty: 90 RF: 0 cyanocobalamin (vitamin B-12) 1,000 mcg tablet 1,000 mcg PO DAILY Qty: 90 RF: 3 budesonide-formoterol [Symbicort] 160-4.5 mcg/actuation HFA aerosol inhaler 2 puff Inhalation BID Qty: 3 RF: 3 Combivent Respimat 20-100 mcg/actuation mist 1 - 2 puff Inhalation .Q4-6H PRN (Reason: shortness of breath or wheezing) Qty: 3 RF: 3 (DME) blood sugar diagnostic [FreeStyle Lite Strips] strip 1 ea Miscellaneous BID Qty: 180 RF: 3 atenolol 100 mg tablet 100 mg PO DAILY Qty: 30 RF: 11 (DME) pen needle, diabetic [Pen Needle] 31 gauge x 5/16 needle See Rx Instructions .ROUTE .MEDSUPPLY Qty: 100 RF: 3 hydrochlorothiazide 50 mg tablet 50 mg PO QAM Qty: 90 RF: 2 ferrous sulfate 325 mg (65 mg iron) tablet See Rx Instructions PO .COMPLEX Qty: 270 RF: 3 rosuvastatin [Crestor] 20 mg tablet 20 mg PO DAILY Qty: 90 RF: 3 Jardiance 25 mg tablet 25 mg PO DAILY AM Qty: 90 RF: 3 Lantus Solostar U-100 Insulin 100 unit/mL (3 mL) insulin pen 10 unit SC HS Qty: 4 RF: 3 valsartan 320 mg tablet 320 mg PO DAILY Qty: 90 RF: 3 aspirin [Aspir-81] 81 MG tablet,delayed release (DR/EC) 81 mg PO DAILY Qty: 90 RF: 3 Lantus Solostar U-100 Insulin 100 unit/mL (3 mL) insulin pen SUBCUT RF: 0 hydroxyzine HCl 25 mg tablet 25 mg PO BID PRN (Reason: itching) Qty: 10 RF: 0 Discharge Instructions Instructions: Low Back Strain (ED), Diabetic Hyperglycemia (ED) Additional Instructions: Take Tylenol as needed and directed for pain. Take the tramadol and methocarbamol for pain not relieved with Tylenol. Drink plenty of fluids. Check your sugar regularly. Take your regular diabetes medications as directed. Follow-up with your primary care doctor in 1 week. Return to the emergency department with any worsening or new concerning symptoms. Discharge Data Discharge Date/Time-TO BE ENTERED AT DEPARTURE: 02/28/20 17:34 Discharge Physician: Roxana Whittington Medical Decision Making 1430 --6-year-old female with a history of diabetes, hypertension, hyperlipi demia, GERD, COPD and morbid obesity who presents for low back pain for the past 6 days. Also admits to blood sugars as high as 180. No cauda equina or urinary symptoms. No fever or injury. Urinalysis obtained on arrival and negative. As her pain is worse with movement and upon standing and walking, appears most likely musculoskeletal. She has tenderness to palpation of her midline and bilateral paraspinal lumbar region. Neurovascular intact. No focal deficits. Abdomen soft and nontender. History and presentation not consistent with cauda equina syndrome, kidney stone, pyelonephritis, epidural abscess. Will check screening labs, CT lumbar spine and give a dose of IV Tylenol, Valium p.o. and tramadol p.o. She cannot take most narcotics or Lidoderm patch due to allergies. 1730 --labs and imaging reviewed. Blood cell count 3.86 which is consistent with previous results. Glucose 249 but with normal bicarb and anion gap. Lipase within normal limits. CT notes stable T12-L1 disc herniation with L1 impingement. This was discussed with [facility] radiologist who stated this was seen in previous imaging 2016 and unchanged. Patient reassessed -she was able to ambulate and feels much better. Patient is requesting to go home. She was advised to increase her fluid intake and take her diabetes medications as directed, limiting sugar and carbohydrate intake. We will send home with a prescription for methocarbamol and tramadol. Advised to follow up with the primary care doctor for re-evaluation. Usual and customary return precautions given prior to discharge. Medical Records Medical records reviewed: Yes I reviewed the patient's medical records. Imaging Data Radiologic Study: Radiologist's impression: CT Lumbar Spine Without Contrast Exam date and time: 02/28/2020 3:02 PM Age: 69 years old Clinical indication: Midline bilateral paraspinal back pain; Prior surgery; date: 6+ months; Herniated disc surgery 7+ yrs prior TECHNIQUE: Imaging protocol: Computed tomography images of the lumbar spine without contrast. Radiation optimization: All CT scans at this facility use at least one of these dose optimization techniques: automated exposure control; mA and/or kV adjustment per patient size (includes targeted exams where dose is matched to clinical indication); or iterative reconstruction. COMPARISON: CT LUMBAR SPINE WITHOUT CONTRAST 03/15/2017 12:30 AM FINDINGS: Vertebrae: Old moderate compression fracture of L3. Normal alignment. T12-L1: Compared to the prior examination dated 03/15/2017, persistent left-sided disc herniation at T12-L1 within pins min on the left L1 nerve root. L1-L2: No significant disc protrusion. No severe spinal canal stenosis. No significant neural foraminal narrowing. L2-L3: No significant disc protrusion. No spinal canal stenosis. No neural foraminal narrowing. Old moderate compression fracture of L3. L3-L4: No significant disc protrusion. Mild central disc bulge. No severe spinal canal stenosis. No significant neural foraminal narrowing. Old moderate compression fracture of L3. L4-L5: No significant disc protrusion. Mild central disc bulge. No severe spinal canal stenosis. No significant neural foraminal narrowing. L5-S1: No significant disc protrusion. Mild central disc bulge. No severe spinal canal stenosis. No significant neural foraminal narrowing. Soft tissues: Unremarkable. IMPRESSION: 1. Old moderate compression fracture of L3. 2. Compared to the prior examination dated 03/15/2017, persistent left-sided disc herniation at T12-L1 within impingement on the left L1 nerve root. Lab Data Lab results reviewed: Yes I reviewed the patient's lab results. Labs: Laboratory Tests Range/Units 02/28/20 02/28/20 02/28/20 14:27 15:00 15:00 WBC (4.4-10.8) k/cumm 3.86 L RBC (4.00-5.20) m/cumm 4.07 Hgb (12.0-15.5) g/dL 12.6 Hct (36.0-46.0) % 38.8 MCV (80-95) fL 95.3 H MCH (27.0-33.0) pg 31.0 MCHC (32.0-36.0) g/dL 32.5 RDW (11.7-14.6) % 15.5 H Plt Count (130-400) x1000/uL 272 MPV (8.0-11.0) fL 8.8 Immature Gran % % 0.3 Neutrophils % 55.2 Lymphocytes % 32.6 Monocytes % 8.0 Eosinophils % 3.6 Basophils % 0.3 Absolute Neutrophils (1.2-6.7) k/cumm 2.13 Absolute Lymphocytes (1.2-3.4) k/cumm 1.26 Absolute Monocytes (0.11-0.7) k/cumm 0.31 Absolute Eosinophils (0.0-0.7) k/cumm 0.14 Absolute Basophils (0.0-0.2) k/cumm 0.01 Sodium (136-145) mmol/L 135 L Potassium (3.5-5.1) mmol/L 4.3 Chloride (98-107) mmol/L 98 Carbon Dioxide (21.0-32.0) mmol/L 27.6 Anion Gap (3-11) mmol/L 9.4 BUN (7-18) mg/dL 25 H Creatinine (0.55-1.02) mg/dL 1.42 H Estimated GFR/1.73 m2 (mL/min/1.73m2) 36.57 Glucose (74-106) mg/dL 249 H Calcium (8.5-10.1) mg/dL 8.8 Total Bilirubin (0.2-1.0) mg/dL 0.4 AST (15-37) U/L 28 ALT (14-59) U/L 59 Alkaline Phosphatase (46-116) U/L 38 L Total Protein (6.4-8.2) g/dL 7.6 Albumin (3.4-5.0) g/dL 3.9 Lipase (73-393) U/L 164 Urine Color (Yellow) Yellow Urine Clarity (Clear) Clear Urine pH (5-8) 6.0 Ur Specific [place] (1.005-1.025) 1.010 Urine Protein (Negative) mg/dL Negative Urine Ketones (Negative) mg/dL Negative Urine Blood (Negative) Negative Urine Nitrite (Negative) Negative Urine Bilirubin (Negative) Negative Urine Urobilinogen (Up TO 0.2) EU/dL 0.2 Ur Leukocyte Esterase (Negative) Negative Urine Glucose (Negative) mg/dL >=1000 H HPI General Mode of arrival: ambulatory . Date/Time Provider Initiated Documentation: 02/28/20 14:17 . Limitations to Documentation: no limitations . Information obtained by: patient . HPI Narrative: Pt is a 69yo F who presents to the ED w/ a c/o lower back pain for the past 6 days. She states the pain is worse with walking and standing and most movements. She states her legs feel weak at times when she is standing but denies any numbness or tingling. She denies fever, nausea, vomiting, urinary symptoms, bowel or bladder incontinence, saddle anesthesia, abdominal pain, injury, recent travel. She states her blood sugar is usually around 130 and has been running higher than usual, around 150- 180. She has taken tylenol for pain without relief. Related Data Home Medications Medication Instructions Recorded Confirmed aspirin [Aspir-81] 81 mg PO DAILY #90 03/30/13 02/28/20 multivitamin [Daily Multi-Vitamin] 1 ea PO DAILY 03/19/17 02/08/20 albuterol sulfate [ProAir HFA] 1 puff INHALATION Q4H PRN #2 04/02/17 02/28/20 inhaler lancets [Sure Comfort Lancets] #1 box 06/24/17 02/08/20 acetaminophen 1,000 mg PO TID PRN #90 tab-cap 12/16/17 02/08/20 cyanocobalamin (vitamin B-12) 1,000 mcg PO DAILY #90 tab-cap 05/07/18 02/08/20 1,000 mcg tablet albuterol sulfate 2.5 mg IH QID PRN #180 ml 08/21/18 02/08/20 nebulizer and compressor #1 each 08/21/18 02/08/20 budesonide-formoterol HFA 160 2 puff INHALATION BID #3 inhaler 10/15/18 02/28/20 mcg-4.5 mcg/actuation aerosol inhaler ipratropium 20 mcg-albuterol 100 1 - 2 puff INHALATION .Q4-6H PRN 10/17/18 02/28/20 mcg/actuation mist for inhalation #3 device betamethasone dipropionate 0.05 % 1 applic TP BID PRN #45 gm 11/26/18 02/28/20 topical ointment umeclidinium 62.5 mcg/actuation 62.5 mcg INHALATION DAILY #3 disk 01/19/19 02/08/20 blister powder for inhalation blood sugar diagnostic #180 strip 02/25/19 02/08/20 calcium carbonate-vitamin D3 600 2 tab PO DAILY #180 tab-cap 04/06/19 02/28/20 mg (1,500 mg)-800 unit tablet glipizide 10 mg tablet 10 mg PO BID #180 tab-cap 04/06/19 02/28/20 magnesium oxide 400 mg (241.3 mg 800 mg PO BID #360 tab-cap 04/06/19 02/28/20 magnesium) tablet atenolol 100 mg tablet 100 mg PO DAILY #30 tab-cap 06/10/19 02/28/20 cetirizine 10 mg tablet 10 mg PO DAILY #90 tab-cap 07/06/19 02/28/20 metformin 1,000 mg tablet 1,000 mg PO BID #180 tab-cap 07/06/19 02/28/20 montelukast 10 mg tablet 10 mg PO DAILY #90 tab-cap 07/06/19 02/28/20 pen needle, diabetic 31 gauge x #100 each 07/15/19 02/08/2001/15 hydrochlorothiazide 50 mg tablet 50 mg PO QAM #90 tab 09/23/19 02/28/20 ferrous sulfate 325 mg (65 mg See Rx Instructions PO .COMPLEX 12/03/19 02/08/20 iron) tablet #270 tab-cap clotrimazole 1 % topical ointment 1 applic TP BID 14 Days #56.7 gm 12/11/19 02/08/20 ammonium lactate 5 % lotion 1 applic TP BID PRN #226 gm 12/21/19 02/08/20 rosuvastatin 20 mg tablet 20 mg PO DAILY #90 tab-cap 01/28/20 02/28/20 hydroxyzine HCl 25 mg PO BID PRN #10 tab 01/29/20 02/28/20 empagliflozin 25 mg tablet 25 mg PO DAILY AM #90 tab-cap 02/09/20 02/28/20 insulin glargine 100 unit/mL (3 10 unit SC HS #4 syringe 02/24/20 02/28/20 mL) subcutaneous pen valsartan 320 mg tablet 320 mg PO DAILY #90 tab-cap 02/24/20 02/28/20 Lantus Solostar U-100 Insulin unit SUBCUT 06/28/20 methocarbamol 500 mg PO Q6H PRN #14 tab 02/28/20 tramadol 50 mg PO TID PRN #10 tab 02/28/20 Previous Rx's Medication Instructions Recorded lancets [Sure Comfort Lancets] #1 box 06/24/17 cyanocobalamin (vitamin B-12) 1,000 mcg PO DAILY #90 tab-cap 05/07/18 1,000 mcg tablet albuterol sulfate 2.5 mg IH QID PRN #180 ml 08/21/18 nebulizer and compressor #1 each 08/21/18 budesonide-formoterol HFA 160 2 puff INHALATION BID #3 inhaler 10/15/18 mcg-4.5 mcg/actuation aerosol inhaler ipratropium 20 mcg-albuterol 100 1 - 2 puff INHALATION .Q4-6H PRN 10/17/18 mcg/actuation mist for inhalation #3 device betamethasone dipropionate 0.05 % 1 applic TP BID PRN #45 gm 11/26/18 topical ointment umeclidinium 62.5 mcg/actuation 62.5 mcg INHALATION DAILY #3 disk 01/19/19 blister powder for inhalation blood sugar diagnostic #180 strip 02/25/19 calcium carbonate-vitamin D3 600 2 tab PO DAILY #180 tab-cap 04/06/19 mg (1,500 mg)-800 unit tablet glipizide 10 mg tablet 10 mg PO BID #180 tab-cap 04/06/19 magnesium oxide 400 mg (241.3 mg 800 mg PO BID #360 tab-cap 04/06/19 magnesium) tablet atenolol 100 mg tablet 100 mg PO DAILY #30 tab-cap 06/10/19 cetirizine 10 mg tablet 10 mg PO DAILY #90 tab-cap 07/06/19 metformin 1,000 mg tablet 1,000 mg PO BID #180 tab-cap 07/06/19 montelukast 10 mg tablet 10 mg PO DAILY #90 tab-cap 07/06/19 pen needle, diabetic 31 gauge x #100 each 07/15/1901/15 hydrochlorothiazide 50 mg tablet 50 mg PO QAM #90 tab 09/23/19 ferrous sulfate 325 mg (65 mg See Rx Instructions PO .COMPLEX 12/03/19 iron) tablet #270 tab-cap clotrimazole 1 % topical ointment 1 applic TP BID 14 Days #56.7 gm 12/11/19 ammonium lactate 5 % lotion 1 applic TP BID PRN #226 gm 12/21/19 rosuvastatin 20 mg tablet 20 mg PO DAILY #90 tab-cap 01/28/20 hydroxyzine HCl 25 mg PO BID PRN #10 tab 01/29/20 empagliflozin 25 mg tablet 25 mg PO DAILY AM #90 tab-cap 02/09/20 insulin glargine 100 unit/mL (3 10 unit SC HS #4 syringe 02/24/20 mL) subcutaneous pen valsartan 320 mg tablet 320 mg PO DAILY #90 tab-cap 02/24/20 methocarbamol 500 mg PO Q6H PRN #14 tab 02/28/20 tramadol 50 mg PO TID PRN #10 tab 02/28/20 Allergies Allergy/AdvReac Type Severity Reaction Status Date / Time propylene glycol Allergy Severe Rash Verified 02/28/20 14:33 petrolatum,white Allergy Intermediate rash Verified 02/28/20 14:33 [From Petroleum Jelly] adhesive tape Allergy Unknown Skin Rash Verified 02/28/20 14:33 alendronate sodium Allergy Unknown Hives Verified 02/28/20 14:33 azithromycin AdvReac Intermediate dry heaves Verified 02/28/20 14:33 and diarrhea hydrocodone bitartrate AdvReac Intermediate Nausea Verified 02/28/20 14:33 [From Vicodin] liraglutide [From Victoza] AdvReac Intermediate diarhhea Verified 02/28/20 14:33 paraben AdvReac Intermediate Skin Rash Unverified 02/28/20 14:33 quaternium 15 AdvReac Intermediate generalized Unverified 02/28/20 14:33 rash LANDON Inhibitors AdvReac Unknown COUGH,DYSPN Verified 02/28/20 14:33 EA oxycodone HCl [From Percocet] AdvReac Unknown NAUSEA/VOMI Verified 02/28/20 14:33 TING fragranced creams Allergy Intermediate Skin Rash Uncoded 02/28/20 14:33 parabin wax Allergy Intermediate Skin Rash Uncoded 02/28/20 14:33 diogolidinyl AdvReac Severe Skin Rash Uncoded 02/28/20 14:33 bisphenal AdvReac Intermediate Skin Rash Uncoded 02/28/20 14:33 General BRUNA: 4 Review of Systems All systems reviewed & are unremarkable except as noted in HPI and below Constitutional Constitutional: Reports as per HPI, Denies chills and Denies fever(s) Eyes Eyes: Denies blurry vision ENT Ears, Nose, Mouth, and Throat: Denies dizziness, Denies sore throat and Denies throat swelling Cardiovascular Cardiovascular: Denies chest pain and Denies dyspnea Respiratory Respiratory: Denies cough and Denies dyspnea Gastrointestinal Gastrointestinal: Denies abdominal pain, Denies diarrhea and Denies vomiting Genitourinary Genitourinary: Denies hematuria and Denies dysuria Musculoskeletal Musculoskeletal: Reports back pain and Denies numbness Integumentary/Breasts Skin/Breast: Denies lesions and Denies rash Neurologic Neurologic: Denies dizziness, Denies localized weakness and Denies numbness Allergic/Immunologic Allergic/Immunologic: Denies throat swelling [facility] Social History Smoking/Tobacco Use Status: Former Tobacco Use Quit Date: 09/02/00 Pack-years: 37 Tobacco: How many years used: 25 Alcohol Intake: former Details: none Drug use: Never Substance use type: does not use Adopted: No Caregiver/Support person: No Foster care: No Household members: spouse Number of Children: 4 Communication Needs: None Pets and animals: No Current gender identity: female What type of physical activity do you participate in: regular exercise Duration: < 15 minutes/day Frequency: 3-4 times per week Mell/Yazdanism: Taoist Seatbelt use: always 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 Working smoke detector in home: Yes Fire extinguisher in home: Yes Carbon monox detector in home: Yes Do you feel safe at home: Yes Do you feel safe in your relationship?: Yes Exam Const General: cooperative, healthy appearing and no acute distress HENMT Head: normal to inspection Face and sinus: normal facial exam Eyes General: appearance normal, both eyes and all related structures Pupils: PERRL EOM: EOM intact bilaterally Neck Neck: normal visual inspection and No submandibular swelling Lymphatic: no lymphadenopathy noted Chest Chest: normal inspection of the chest and no tenderness Resp Effort & Inspection: normal respiratory effort and able to speak in complete sentences Auscultation: clear to auscultation bilaterally Cardio Rate: regular rate Rhythm: regular rhythm GI Inspection: normal to inspection Palpation: soft, not firm, not rigid and nontender Auscultation: normal bowel sounds Back/Spine/Pelvis Thoracic/Lumbar Spine: straight leg raise negative bilaterally, paraspinal tenderness (b/l lumbar) and lumbar spinal tenderness Skin General skin exam: no rashes or lesions noted Neuro General: patient alert, patient awake and patient oriented x3 Cognition: normal cognition Speech: speech normal Motor: muscle tone normal throughout Sensory Exam: no sensory deficits noted Extrem General: normal to inspection, full ROM, capillary refill normal, no calf tenderness bilaterally and no edema Other: B/L DP/PT pulses intact Psych Appearance: grossly normal Mental Status: mental status grossly normal Speech and Movement: speech and movement normal Affect: normal affect
[2020-02-28 14:27] VITALS: BP 99/70; PULSE 73; RESP 18; TEMP 36.3; O2SAT 94
[2020-02-28 14:31] LABS: Bilirubin Negative (Negative); Blood Negative (Negative); Clarity Clear (Clear); Glucose >=1000 mg/dL (Negative); Ketones Negative (Negative); Leukocyte Esterase Negative (Negative); Nitrite Negative (Negative); Urobilinogen 0.2 EU/dL (Up TO 0.2)
--- NOTE | 2020-02-28 15:00 | DI.CT_ITS ---
EXAM: CT LUMBAR SPINE WO CLINICAL HISTORY: midline/b/l paraspinal back pain. TECHNIQUE: Imaging Protocol: Axial computed tomography images with coronal and sagittal reformatted images were created and reviewed COMPARISON: CT LUMBAR SPINE WITHOUT CONTRAST from 03/15/2017 CT ABD PELVIS WO CONTRAST from 09/02/2017 FINDINGS: Bones: The last intervertebral disc space is designated the L5/S1 level for the numbering purpose of this examination. There is a stable L3 compression fracture deformity. This is unchanged compared t o the CT scan of the abdomen and pelvis from 09/02/2017. Alignment is satisfactory. No acute fracture i s identified. T12-L1: There is an unchanged left-sided disc herniation. There does appear to be impingement on th e exiting left nerve root. L1-2: No disc herniations or bulges are present. No central spinal canal or neural foraminal stenosi s. L2-3: No disc herniations or bulges are present. No central spinal canal or neural foraminal stenosi s. L3-4: There is a mild diffuse disc bulge. No significant central spinal canal or neural foraminal s tenosis. L4-5: There is a mild diffuse disc bulge. No significant central spinal canal or neural foraminal s tenosis. L5-S1: There is a mild central disc bulge. No significant central spinal canal or neural foraminal stenosis. Soft Tissues: The visualized SI joints and sacrum are will maintained. The paraspinal soft tissues a re unremarkable. IMPRESSION: 1. Stable L3 compression fracture deformity since 2018. 2. No acute fracture or subluxation. 3. Stable degenerative changes in the lumbar spine. Please see the above discussion for complete det ails. RADIATION DOSE DELIVERED: Total DLP Total DLP DATA REPOSITORY: All CT scans at this facility are submitted to the National Radiology Data Registry (NRDR) Dose Index Registry (DIR) with the [employer] (A[employer]). RADIATION OPTIMIZATION: All CT scans at this facility use at least one of these dose optimization te chniques: automated exposure control; mA and/or kV adjustment per patient size (includes targeted exa ms where dose is matched to clinical indication); or iterative reconstruction.
[2020-02-28 15:10] LABS: Abs Immature Grans 0.01 k/cumm (0.0-0.09); Absolute Basophil Count 0.01 k/cumm (0.0-0.2); Absolute Eosinophil Count 0.14 k/cumm (0.0-0.7); Absolute Lymphocyte Count 1.26 k/cumm (1.2-3.4); Absolute Monocyte Count 0.31 k/cumm (0.11-0.7); Absolute Neutrophil Count 2.13 k/cumm (1.2-6.7); Basophils % 0.3; Eosinophils % 3.6; HCT 38.8 % (36.0-46.0); HGB 12.6 g/dL (12.0-15.5); Immature Grans % 0.3 %; Lymphocytes % 32.6; Mean Corp. HGB Concentration 32.5 g/dL (32.0-36.0); Mean Corpuscular Volume 95.3 fL (80-95); Mean Platelet Volume 8.8 fL (8.0-11.0); Neutrophils % 55.2; Platelet Count 272 x1000/uL (130-400); RBC 4.07 m/cumm (4.00-5.20); RBC Distribution Width 15.5 % (11.7-14.6); White Blood Cell Count 3.86 k/cumm (4.4-10.8)
[2020-02-28] MEDS: diazePAM 5 MG TAB PO (15:20)
[2020-02-28] MEDS: ACETAMINOPHEN 1,000 MG/100 ML BTL 400 MG IVPB (15:20)
[2020-02-28] MEDS: traMADol 50 MG TAB PO (15:20)
[2020-02-28 15:28] LABS: ALT 59 U/L (14-59); AST 28 U/L (15-37); Albumin 3.9 g/dL (3.4-5.0); Alkaline Phosphatase 38 U/L (46-116); Anion Gap 9.4 mmol/L (3-11); BUN 25 mg/dL (7-18); Bilirubin, Total 0.4 mg/dL (0.2-1.0); CO2 27.6 mmol/L (21.0-32.0); CREATININE 1.42 mg/dL (0.55-1.02); Calcium 8.8 mg/dL (8.5-10.1); Chloride 98 mmol/L (98-107); Estimated GFR 36.57 (mL/min/1.73m2); Glucose 249 mg/dL (74-106); Lipase 164 U/L (73-393); Potassium 4.3 mmol/L (3.5-5.1); Sodium 135 mmol/L (136-145); Total Protein 7.6 g/dL (6.4-8.2)
[2020-02-28] MEDS: Normal Saline 500 ML IV (15:29)
--- NOTE | 2020-02-28 16:17 | DI.VRAD_ITS ---
Addendum created by Shashi Adhikari MD on 02/28/2020 4:53:18 PM EDT Examination results of the patient were discussed with trevin ceballos on 02/28/2020 at 4:53 PM EDT LIVING COACH. Initial report created on 02/28/2020 4:16:40 PM EDT PROCEDURE INFORMATION: Exam: CT Lumbar Spine Without Contrast Exam date and time: 02/28/2020 3:02 PM Age: 69 years old Clinical indication: Midline bilateral paraspinal back pain; Prior surgery; date: 6+ months; Herniated disc surgery 7+ yrs prior TECHNIQUE: Imaging protocol: Computed tomography images of the lumbar spine without contrast. Radiation optimization: All CT scans at this facility use at least one of these dose optimization techniques: automated exposure control; mA and/or kV adjustment per patient size (includes targeted exams where dose is matched to clinical indication); or iterative reconstruction. COMPARISON: CT LUMBAR SPINE WITHOUT CONTRAST 03/15/2017 12:30 AM FINDINGS: Vertebrae: Old moderate compression fracture of L3. Normal alignment. T12-L1: Compared to the prior examination dated 03/15/2017, persistent left-sided disc herniation at T12-L1 within pins min on the left L1 nerve root. L1-L2: No significant disc protrusion. No severe spinal canal stenosis. No significant neural foraminal narrowing. L2-L3: No significant disc protrusion. No spinal canal stenosis. No neural foraminal narrowing. Old moderate compression fracture of L3. L3-L4: No significant disc protrusion. Mild central disc bulge. No severe spinal canal stenosis. No significant neural foraminal narrowing. Old moderate compression fracture of L3. L4-L5: No significant disc protrusion. Mild central disc bulge. No severe spinal canal stenosis. No significant neural foraminal narrowing. L5-S1: No significant disc protrusion. Mild central disc bulge. No severe spinal canal stenosis. No significant neural foraminal narrowing. Soft tissues: Unremarkable. IMPRESSION: 1. Old moderate compression fracture of L3. 2. Compared to the prior examination dated 03/15/2017, persistent left-sided disc herniation at T12-L1 within impingement on the left L1 nerve root. Dictated and Authenticated by: Shashi Adhikari MD. Ordering:ZENAIDA Schmidt MD
[2020-02-28 17:35] VITALS: BP 141/48; PULSE 65; RESP 16; TEMP 36.3; O2SAT 93
== END 2020-02-28 17:34 | disposition home or self-care (01) ==
PROVIDERS: Emergency Provider Physician Assistant; PCP Nurse Practitioner Family
DX: M54.5 Low back pain (principal); E11.65 Type 2 diabetes mellitus with hyperglycemia; Z79.4 Long term (current) use of insulin; I10 Essential (primary) hypertension; J44.9 Chronic obstructive pulmonary disease, unspecified; Z87.891 Personal history of nicotine dependence
CPT/HCPCS: 36415; 36416; 80053; 82962; 83690; 96361; 96365; 99284; 72131; 81003; 85025; 99285; J0131

== ENCOUNTER 2020-05-14 14:13 | Inpatient (IN) | payer MEDICARE, BC, SELFPAY ==
[2020-05-14] VITALS (54 sets, daily range): BP systolic 99–161; BP diastolic 33–95; PULSE 60–90; RESP 8–35; TEMP 36.5–36.7; O2SAT 76–93
--- NOTE | 2020-05-14 14:15 | RT.EKG_ITS ---
APPROVED REPORT Exam: Resting ECG Patient Location: E HR:68 bpm ECG Measurements Heart Rate 68 AXIS TN 172 P 81 QRSd 85 QRS 69 QT 410 T 57 QTc 437 Conclusion EKG 14: 24 Rate 68, sinus rhythm, intervals normal, no significant ST elevation or depression, no evidence of ST ATIYA, no other significant abnormalities.
--- NOTE | 2020-05-14 14:15 | DI.RAD_ITS ---
EXAM: XR PORTABLE CHEST AP CLINICAL HISTORY: SOB. TECHNIQUE: 2D digital imaging was performed. COMPARISON: CR XR CHEST 2V PA LATERAL from 10/20/[address] CHEST PE CTA from 05/14/2020 FINDINGS: LUNGS: Clear. No pleural abnormality seen. HEART: Normal. MEDIASTINUM: Normal. OTHER FINDINGS: None. IMPRESSION: No acute pulmonary findings. DATA REPOSITORY: RADIATION DOSE DELIVERED: Total DLP
--- NOTE | 2020-05-14 14:19 | W.ED.GENAD ---
Discharge Plan Disposition Patient Disposition: OTHER Condition: Serious Discharge Details Clinical Impression: Dyspnea on exertion Primary Care Provider: María Mendoza ED Provider: Manuel Del Valle Home Meds and New Rx's Prescriptions: No Action calcium carbonate-vitamin D3 600 mg(1,500mg) -800 unit tablet 2 tab PO DAILY Qty: 180 RF: 3 magnesium oxide 400 mg (241.3 mg magnesium) tablet 800 mg PO BID Qty: 360 RF: 3 metformin 1,000 mg tablet 1,000 mg PO BID Qty: 180 RF: 3 montelukast [Singulair] 10 mg tablet 10 mg PO DAILY Qty: 90 RF: 3 clotrimazole 1 % ointment 1 applic TP BID 14 Days Qty: 56.7 RF: 1 (DME) nebulizer and compressor device See Dose Instructions .ROUTE .MEDSUPPLY Qty: 1 RF: 0 albuterol sulfate 2.5 mg /3 mL (0.083 %) solution for nebulization 2.5 mg IH QID PRN (Reason: bronchospasm) Qty: 180 RF: 6 betamethasone dipropionate 0.05 % ointment 1 applic TP BID PRN (Reason: rash) Qty: 45 RF: 1 Lantus Solostar U-100 Insulin 100 unit/mL (3 mL) insulin pen 14 unit SC HS Qty: 4 RF: 3 (DME) Blood Glucose Test Strip See Rx Instructions .ROUTE .MEDSUPPLY Qty: 200 RF: 3 cetirizine 10 mg tablet 10 mg PO DAILY Qty: 90 RF: 3 hydrochlorothiazide 50 mg tablet 50 mg PO QAM Qty: 90 RF: 3 glipizide 10 mg tablet 10 mg PO BID Qty: 180 RF: 3 Oxygen EACH NS At Night Qty: 2 RF: 0 multivitamin [Daily Multi-Vitamin] 1 EACH tablet 1 ea PO DAILY RF: 0 albuterol sulfate [ProAir HFA] 8.5 GM HFA aerosol inhaler 1 puff Inhalation Q4H PRN Qty: 2 RF: 3 (DME) lancets [Sure Comfort Lancets] 1 EACH misc 1 ea Miscellaneous DAILY Qty: 1 RF: 3 acetaminophen 500 MG tablet 1,000 mg PO TID PRNQty: 90 RF: 0 cyanocobalamin (vitamin B-12) 1,000 mcg tablet 1,000 mcg PO DAILY Qty: 90 RF: 3 Combivent Respimat 20-100 mcg/actuation mist 1 - 2 puff Inhalation .Q4-6H PRN (Reason: shortness of breath or wheezing) Qty: 3 RF: 3 atenolol 100 mg tablet 100 mg PO DAILY Qty: 30 RF: 11 (DME) pen needle, diabetic [Pen Needle] 31 gauge x 5/16 needle See Rx Instructions .ROUTE .MEDSUPPLY Qty: 100 RF: 3 rosuvastatin [Crestor] 20 mg tablet 20 mg PO DAILY Qty: 90 RF: 3 Jardiance 25 mg tablet 25 mg PO DAILY AM Qty: 90 RF: 3 valsartan 320 mg tablet 320 mg PO DAILY Qty: 90 RF: 3 budesonide-formoterol [Symbicort] 160-4.5 mcg/actuation HFA aerosol inhaler 2 puff Inhalation BID Qty: 3 RF: 3 Incruse Ellipta 62.5 mcg/actuation blister with device 62.5 mcg Inhalation DAILY Qty: 3 RF: 3 aspirin [Aspir-81] 81 MG tablet,delayed release (DR/EC) 81 mg PO DAILY Qty: 90 RF: 3 omeprazole 20 mg capsule,delayed release(DR/EC) 20 mg PO DAILY RF: 0 ferrous sulfate 325 mg (65 mg iron) tablet 650 mg PO DAILY RF: 0 Medical Decision Making <JONO Pascal - Last Filed: 05/14/20 19:56> Patient is a pleasant 69-year-old female presented with chief complaint of shortness of breath. She reports that for the past week she has been having intermittent shortness of breath. She does not believe that this is routinely exertionally based. past medical history is concerning for NIKKI, hypertension, diabetes, CAD, COPD, CKD, GI bleed. Patient states that she does use 2 L nasal cannula O2 at night. States that prior to coming in her oxygen was 80% on room air which is very unusual for her. She reports that typically she is 88% on room air. She denies any recent travel. Does endorse a dry cough, denies any chest pain or pleuritic discomfort. Exam: She does not comfortably. Initially, patient sat down her O2 is 88%. However, due to the recent deep breaths this did go up to 93% on room air. She is speaking in full sentences and does not appear to be in any respiratory distress. Normal cardiac exam. No lower extremity edema or calf tenderness. She denies any history of DVT, coagulopathy, PE. States that this has felt like pneumonia in the past but not appreciate any crackles. Patient is slightly diminished on exam otherwise clear and moving air. She states that she has been using her nebulizer as prescribed and that this does provide temporary relief. She has not had COPD exacerbation historically, August the last and she was on any steroids. EKG was reviewed by Dr. Zayas. Patient is in a normal sinus rhythm without acute ischemic findings. Labs reviewed. WBC is 3.63 which is baseline for the patient. D-dimer 400. Creatinine is 1.35 Which is baseline for the patient. Glucose is 253 which is also baseline for the patient. Troponin is less than 0.05. BNP 162. COVID-19 testing pending. FINDINGS: Lungs: Linear atelectasis versus scarring at the left base. Pleural space: Unremarkable. No pleural effusion. No pneumothorax. Heart/Mediastinum: Unremarkable. No cardiomegaly. Vasculature: Atherosclerosis. Bones/joints: Unremarkable. IMPRESSION: Linear atelectasis versus scarring at the left base. Patient was ambulated by respiratory therapy and dropped to 76% on room air. Typically she is ambulatory without oxygen during the course of the day. Even with her typical 2 L of O2, patient remained 84% with any type of ambulation. Patient reports that this does not feel like when she is had pneumonia in the past. States is more atypical than COPD she is experienced historically. I Too remain concerned regarding her hypoxia that seems to be relatively unexplained. To simply treat this patient is a COPD exacerbation as her glucose is so poorly controlled, I am concerned that unaided steroids may worsen the patient's diabetic state. In order to further evaluate this potential atelectasis noted on chest x-ray, will obtain a CT. I discussed this with the patient is in agreement. I also discussed admission with the patient for her hypoxia which she agrees to. At the end of my shift, care transition Brodie Del Valle PA-C with imaging pending. <JONO Mendoza - Last Filed: 05/14/20 19:53> I assumed care of this 69-year-old female from my colleague JONO Sylvester at shift change. Please see her HPI and examination for initial presentation. She is complaining of dyspnea with exertion worsening over the past week or so, unlike anything she has ever experienced. She denies any pain. She does wear CPAP at night and has an O2 sat probe at home, reports that she typically is between 88 and 91%. Work-up in the ER thus far has been fairly unremarkable but with exertion her sats dropped down to 76%. Given this at time of signout CTA to rule out PE is pending. Upon evaluation this is a pleasant, nontoxic-appearing 69-year-old female able to speak in full sentences. Her head is normocephalic, moist mucous membranes, lungs clear to auscultation, heart regular rate and rhythm. No pedal edema. She has not been given any steroids or breathing treatments as her lungs are clear to auscultation. Patient attempted to stand and pivot at bedside and her sats dropped into the 70s once again. Sats are fairly concerning with such minimal exertion. It was brought to my attention that the patient did prefer to go home and they attempted to find an oxygen concentrator however were unsuccessful over the weekend. CTA read by virtual radiology was negative for PE. I contacted our hospitalist team, Dr. Salmeron, who recommended obtaining an ABG, giving a DuoNeb, and 80 IV Solu-Medrol. He will come to the ER to personally evaluate the patient is agreeable to admission Medical Records Medical records reviewed: Yes I reviewed the patient's medical records. HPI <JONO Pascal - Last Filed: 05/14/20 19:56> General Mode of arrival: ambulatory. Date/Time Provider Initiated Documentation: 05/14/20 14:16. Limitations to Documentation: no limitations. Information obtained by: patient and RN notes reviewed. History of Present Illness 69 year old F presents to the emergency department with the chief complaint of shortness of breath, described as moderate, Patient reports no radiation. Patient started experiencing this week(s) (1) and it has been intermittent. No relieving factors improve symptom(s), No exacerbating factors reported . Patient notes cough, nausea/vomiting (reports nausea, no vomiting) and shortness of breath; denies chest pain, fever/chills, rash, syncope and weakness. Patient did receive the following treatments prior to arrival, other (using nebulizer PRN) Related Data Home Medications Medication Instructions Recorded Confirmed aspirin [Aspir-81] 81 mg PO DAILY #90 03/30/13 05/14/20 multivitamin [Daily Multi-Vitamin] 1 ea PO DAILY 03/19/17 05/14/20 albuterol sulfate [ProAir HFA] 1 puff INHALATION Q4H PRN #2 04/02/17 05/14/20 inhaler lancets [Sure Comfort Lancets] #1 box 06/24/17 04/28/20 acetaminophen 1,000 mg PO TID PRN #90 tab-cap 12/16/17 05/14/20 cyanocobalamin (vitamin B-12) 1,000 mcg PO DAILY #90 tab-cap 05/07/18 05/14/20 1,000 mcg tablet albuterol sulfate 2.5 mg IH QID PRN #180 ml 08/21/18 05/14/20 nebulizer and compressor #1 each 08/21/18 04/28/20 ipratropium 20 mcg-albuterol 100 1 - 2 puff INHALATION .Q4-6H PRN 10/17/18 05/14/20 mcg/actuation mist for inhalation #3 device betamethasone dipropionate 0.05 % 1 applic TP BID PRN #45 gm 11/26/18 05/14/20 topical ointment calcium carbonate-vitamin D3 600 2 tab PO DAILY #180 tab-cap 04/06/19 05/14/20 mg (1,500 mg)-800 unit tablet magnesium oxide 400 mg (241.3 mg 800 mg PO BID #360 tab-cap 04/06/19 05/14/20 magnesium) tablet atenolol 100 mg tablet 100 mg PO DAILY #30 tab-cap 06/10/19 05/14/20 metformin 1,000 mg tablet 1,000 mg PO BID #180 tab-cap 07/06/19 05/14/20 montelukast 10 mg tablet 10 mg PO DAILY #90 tab-cap 07/06/19 05/14/20 pen needle, diabetic 31 gauge x #100 each 07/15/19 04/28/2001/15 clotrimazole 1 % topical ointment 1 applic TP BID 14 Days #56.7 gm 12/11/19 05/14/20 rosuvastatin 20 mg tablet 20 mg PO DAILY #90 tab-cap 01/28/20 05/14/20 empagliflozin 25 mg tablet 25 mg PO DAILY AM #90 tab-cap 02/09/20 05/14/20 valsartan 320 mg tablet 320 mg PO DAILY #90 tab-cap 02/24/20 05/14/20 budesonide-formoterol HFA 160 2 puff INHALATION BID #3 inhaler 03/11/20 05/14/20 mcg-4.5 mcg/actuation aerosol inhaler umeclidinium 62.5 mcg/actuation 62.5 mcg INHALATION DAILY #3 disk 03/11/20 05/14/20 blister powder for inhalation blood sugar diagnostic #200 each 03/18/20 04/28/20 cetirizine 10 mg tablet 10 mg PO DAILY #90 tab-cap 03/18/20 05/14/20 insulin glargine 100 unit/mL (3 14 unit SC HS #4 syringe 03/18/20 05/14/20 mL) subcutaneous pen glipizide 10 mg tablet 10 mg PO BID #180 tab-cap 04/25/20 05/14/20 hydrochlorothiazide 50 mg tablet 50 mg PO QAM #90 tab 04/25/20 05/14/20 ferrous sulfate 650 mg PO DAILY 05/14/20 05/14/20 omeprazole 20 mg PO DAILY 05/14/20 05/14/20 Previous Rx's Medication Instructions Recorded lancets [Sure Comfort Lancets] #1 box 06/24/17 cyanocobalamin (vitamin B-12) 1,000 mcg PO DAILY #90 tab-cap 05/07/18 1,000 mcg tablet albuterol sulfate 2.5 mg IH QID PRN #180 ml 08/21/18 nebulizer and compressor #1 each 08/21/18 ipratropium 20 mcg-albuterol 100 1 - 2 puff INHALATION .Q4-6H PRN 10/17/18 mcg/actuation mist for inhalation #3 device betamethasone dipropionate 0.05 % 1 applic TP BID PRN #45 gm 11/26/18 topical ointment calcium carbonate-vitamin D3 600 2 tab PO DAILY #180 tab-cap 04/06/19 mg (1,500 mg)-800 unit tablet magnesium oxide 400 mg (241.3 mg 800 mg PO BID #360 tab-cap 04/06/19 magnesium) tablet atenolol 100 mg tablet 100 mg PO DAILY #30 tab-cap 06/10/19 metformin 1,000 mg tablet 1,000 mg PO BID #180 tab-cap 07/06/19 montelukast 10 mg tablet 10 mg PO DAILY #90 tab-cap 07/06/19 pen needle, diabetic 31 gauge x #100 each 07/15/1901/15 clotrimazole 1 % topical ointment 1 applic TP BID 14 Days #56.7 gm 12/11/19 rosuvastatin 20 mg tablet 20 mg PO DAILY #90 tab-cap 01/28/20 empagliflozin 25 mg tablet 25 mg PO DAILY AM #90 tab-cap 02/09/20 valsartan 320 mg tablet 320 mg PO DAILY #90 tab-cap 02/24/20 budesonide-formoterol HFA 160 2 puff INHALATION BID #3 inhaler 03/11/20 mcg-4.5 mcg/actuation aerosol inhaler umeclidinium 62.5 mcg/actuation 62.5 mcg INHALATION DAILY #3 disk 03/11/20 blister powder for inhalation blood sugar diagnostic #200 each 03/18/20 cetirizine 10 mg tablet 10 mg PO DAILY #90 tab-cap 03/18/20 insulin glargine 100 unit/mL (3 14 unit SC HS #4 syringe 03/18/20 mL) subcutaneous pen glipizide 10 mg tablet 10 mg PO BID #180 tab-cap 04/25/20 hydrochlorothiazide 50 mg tablet 50 mg PO QAM #90 tab 04/25/20 Allergies Allergy/AdvReac Type Severity Reaction Status Date / Time propylene glycol Allergy Severe Rash Verified 05/14/20 14:23 petrolatum,white Allergy Intermediate rash Verified 05/14/20 14:23 [From Petroleum Jelly] adhesive tape Allergy Unknown Skin Rash Verified 05/14/20 14:23 alendronate sodium Allergy Unknown Hives Verified 05/14/20 14:23 azithromycin AdvReac Intermediate dry heaves Verified 05/14/20 14:23 and diarrhea hydrocodone bitartrate AdvReac Intermediate Nausea Verified 05/14/20 14:23 [From Vicodin] liraglutide [From Victoza] AdvReac Intermediate diarhhea Verified 05/14/20 14:23 paraben AdvReac Intermediate Skin Rash Verified 05/14/20 14:23 quaternium 15 AdvReac Intermediate generalized Verified 05/14/20 14:23 rash LANDON Inhibitors AdvReac Unknown COUGH,DYSPN Verified 05/14/20 14:23 EA oxycodone HCl [From Percocet] AdvReac Unknown NAUSEA/VOMI Verified 05/14/20 14:23 TING fragranced creams Allergy Intermediate Skin Rash Uncoded 05/14/20 14:23 parabin wax Allergy Intermediate Skin Rash Uncoded 05/14/20 14:23 diogolidinyl AdvReac Severe Skin Rash Uncoded 05/14/20 14:23 bisphenal AdvReac Intermediate Skin Rash Uncoded 05/14/20 14:23 General BRUNA: 3 Review of Systems <JONO Pascal - Last Filed: 05/14/20 19:56> Constitutional Constitutional: Reports as per HPI, Denies chills, Denies fever(s), Denies headache(s), Denies lethargy and Denies poor appetite Eyes Eyes: Denies change in vision ENT Ears, Nose, Mouth, and Throat: Denies dizziness and Denies headache(s) Cardiovascular Cardiovascular: Reports as per HPI, Reports dyspnea (intermittent with drop in sat to 80%) and Denies dyspnea on exertion (SOB not reliably with exertion) Respiratory Respiratory: Reports as per HPI, Denies change in phlegm color, Denies chest congestion, Reports cough (dry), Denies hemoptysis, Denies pain on inspiration, Denies pain with cough, Reports dyspnea (intermittent with drop in sat to 80%), Denies dyspnea on exertion (SOB not reliably with exertion) and Denies wheezing Gastrointestinal Gastrointestinal: Reports as per HPI, Denies abdominal pain, Denies diarrhea, Denies nausea and Denies vomiting Musculoskeletal Musculoskeletal: Reports as per HPI and Denies back pain Integumentary/Breasts Skin/Breast: Reports as per HPI and Denies rash Neurologic Neurologic: Reports as per HPI, Denies dizziness and Denies headache(s) Allergic/Immunologic Allergic/Immunologic: Denies wheezing PFSH <JONO Pascal - Last Filed: 05/14/20 19:56> Medical History (Updated 05/14/20 @ 19:53 by JONO Mendoza) Allergic rhinitis Anemia (02/11/14) Suspect chronic dz/bone marrow suppression s/p breast CA tx (radiation); s/p GI workup (possible AVMs?), NL B12/folate, elevated Epo, NL retic count; chronic iron supplementation Atherosclerosis of both carotid arteries (11/12/16) 10/2016 [facility] [place] Consult: carotid US showing 16-49% stenosis both internal carotids Recommend annual carotid US Breast CA R 2002, L2003 s/p bilateral lumpectomy. S/P XRT and Tamoxifen. Chronic GI bleeding Chronic kidney disease (CKD) Chronic obstructive airway disease (06/04/12) [facility] [place]mon[place] (Dr. Cruz) Moderate-very severe Last OV & PFTs 08/21/16 [facility] [place] Night-time Oxygen Per pulmonolgy() Severe-very severe KONRAD 10/31/16 Compression fracture of lumbar vertebra (03/14/17) Coronary artery disease (11/14/15) Depression (11/30/02) s/p of brother (on SSRI for short time) Diabetes mellitus (11/27/04) Dx'ed early Goal A1C <7.5% DJD (degenerative joint disease) (02/04/14) Lumbar spine--multiple level on MRI Surgery 10/2011, [facility] Dr. Smith Essential hypertension (05/16/04) H/O laminectomy L5S1 Heart murmur 07/11/2016 echo: mild-moderate mitral regurgitation Hiatal hernia (02/11/14) Smaller portions Endoscopy 10/04 anemia (nothing found), [facility] [place] Hyperlipidemia (03/18/07) Pt on high intensity statin therapy Hypomagnesemia (03/04/17) Intraabdominal calcification (11/14/15) Incidental finding on CT 2 mm between bladder and uterus, no further eval required, [facility] Iron deficiency anemia (01/02/17) S/p colo & EGD 05/2015, then capsule endoscopy & push enteroscopy with no definitive etiology identified 11/14/2017: repeat colonoscopy (due to return of anemia) showing a colonic angioectasia, which may have been source of bleeding & anemia (though no overt bleeding found) Fe supplementation & monitor Left renal artery stenosis (08/30/16) 08/21/16 [facility] [place] Vascular Surgery consult: moderate-severe stenosis; given well-controlled HTN & normal kidney function, renal artery intervention not indicated at this t 10/2016: 3 mo f/u renal duplex US showing >60% stenosis with decent blood flow to L kidney Consider stent placement if BP becomes poorly controlled or renal function begins to deteriorate Leg cramps (04/01/14) Low Mg+ --> supplementation helped, but caused diarrhea; handout on dietary Mg+ given Microalbuminuria due to type 2 diabetes mellitus Obstructive sleep apnea (03/02/14) Bipap w/ 2L 02 09/06/2019 Osteopenia (02/14/16) DEXA 02/14/16: Fem neck t-score -1.2 --> WHO FRAX major osteoporotic 13% & hip fx 1.3% risk --> does not qualify for bisphosphonates --> Ca & vit D 03/2017 L3 compression fx --> re-calc WHO FRAX major osteoporotic 21% & hip fx 2.3% risk --> now qualifies for bisphosphonate tx, started 03/2017 Probable allergic rxn to Alendronate (1st pill Sat, and stayed thru today (but no worsening), 07/05. Agree to STOP for now. 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 Dr Agee H/O laminectomy (~10/06/12) L5S1 Huyen Frazier, Dr. Garay Oophrectomy, Right (~2007) For unknown reason Tooth Extractions Multiple Family History Sister Breast cancer Mother , 89 Alzheimer's dementia Breast cancer Father , AGE 75 Alcohol abuse Cirrhosis Sister Neoplasm uterine CA Sister Heart disease Brother Heart disease Niece Breast cancer Social History Smoking/Tobacco Use Status: Former Tobacco Use Quit Date: 09/02/00 Pack-years: 37 Tobacco: How many years used: 25 Alcohol Intake: former Details: none Drug use: Never Substance use type: does not use Adopted: No Caregiver/Support person: No Foster care: No Household members: spouse Number of Children: 4 Communication Needs: None Pets and animals: No Current gender identity: female What type of physical activity do you participate in: regular exercise Duration: < 15 minutes/day Frequency: 3-4 times per week Mell/Gnosticist: Rastafarian Seatbelt use: always Drive intox or ride w/intox bus driver: No Working smoke detector in home: Yes Fire extinguisher in home: Yes Carbon monox detector in home: Yes Do you feel safe at home: Yes Do you feel safe in your relationship?: Yes Exam <JONO Pascal - Last Filed: 05/14/20 19:56> Const General: cooperative, healthy appearing, comfortable, no acute distress and well developed Nutritional Appearance: average body habitus and well nourished Orientation: alert, awake and oriented x3 HENMT Head: normal to inspection Ears: hearing grossly normal bilaterally Mouth: moist mucous membranes Chest Chest: normal inspection of the chest, normal palpation of entire chest wall and no crepitus Resp Effort & Inspection: normal respiratory effort, able to speak in complete sentences and no respiratory distress Auscultation: clear to auscultation bilaterally, diminished lung sounds bilaterally in the upper lung cole, no rales, no rhonchi and no wheezes Cardio Rate: regular rate Rhythm: regular rhythm Heart Sounds: S1 normal and S2 normal GI Inspection: normal to inspection, no edema and non-distended Palpation: soft, no hepatosplenomegaly, not firm, no guarding, not rigid and nontender Auscultation: normal bowel sounds Back/Spine/Pelvis Thoracic/Lumbar Spine: thoracic and lumbar spine normal to inspection Skin General skin exam: no rashes or lesions noted Trauma: no lacerations or abrasions Neuro General: patient alert, patient awake and patient oriented x3 Cognition: normal cognition Speech: speech normal Gait: normal gait Extrem General: normal to inspection, capillary refill normal, no pedal edema, no calf tenderness and normal gait Psych Appearance: grossly normal and well kempt Mental Status: mental status grossly normal Speech and Movement: speech and movement normal Sign Out <JONO Pascal - Last Filed: 05/14/20 19:56> Sign Out Data: Sign Out Comment: Care transition to Brodie Del Valle PA-C with imaging pending. Patient is hypoxic at 76% on room air with ambulation. Has been intermittently short of breath x1 week. Chest x-ray shows linear atelectasis. However, with the unexplained hypoxia decision was made for CT of her chest. Plan for likely admission given her hypoxia and no concentrator at home to allow for ambulatory O2. Last updated by Debi Sylvester PA at 05/14/20 16:43
[2020-05-14 15:14] LABS: Abs Immature Grans 0.01 10^3/uL (0.0-0.06); Absolute Basophil Count 0.02 10^3/uL (0.0-0.2); Absolute Eosinophil Count 0.12 10^3/uL (0.0-0.7); Absolute Lymphocyte Count 1.02 10^3/uL (1.2-3.4); Absolute Monocyte Count 0.34 10^3/uL (0.1-0.8); Absolute Neutrophil Count 2.12 10^3/uL (1.2-6.7); Basophils % 0.6; Eosinophils % 3.3; HGB 12.8 g/dL (11.2-15.7); Immature Grans % 0.3; Lymphocytes % 28.1; MCH 30.5 pg (27.0-33.0); MCHC 30.5 % (32.0-36.0); MPV 8.9 fL (8.0-11.0); Monocytes % 9.4; Neutrophils % 58.3; Nucleated RBC 0 %; Platelet Count 326 10^3/uL (130-400); RDW 14.2 % (11.7-14.6); RDW-SD 51.6 fL; WBC 3.63 10^3/uL (4.4-10.8)
[2020-05-14] MEDS: Normal Saline Flush 10 ML SYR IVP (15:25)
[2020-05-14 15:36] LABS: ALT 67 U/L (14-59); AST 37 U/L (15-37); Alkaline Phosphatase 48 U/L (46-116); Anion Gap 7.6 mmol/L (3-11); BUN 33 mg/dL (7-18); Bilirubin, Total 0.2 mg/dL (0.2-1.0); CO2 31.4 mmol/L (21.0-32.0); CREATININE 1.35 mg/dL (0.55-1.02); Calcium 9.2 mg/dL (8.5-10.1); Chloride 99 mmol/L (98-107); Estimated GFR 38.77 (mL/min/1.73m2); Glucose 252 mg/dL (74-106); Potassium 4.1 mmol/L (3.5-5.1); Sodium 138 mmol/L (136-145); Total Protein 8.1 g/dL (6.4-8.2)
[2020-05-14 15:39] LABS: Magnesium 3.1 mg/dL (1.8-2.4); NT-proBNP 162 pg/mL (<300)
[2020-05-14 15:40] LABS: Troponin I < 0.05 ng/mL (<0.06)
[2020-05-14 15:54] LABS: D-Dimer 407 ng/mlFEU (<500)
--- NOTE | 2020-05-14 16:13 | DI.VRAD_ITS ---
PROCEDURE INFORMATION: Exam: XR Chest, 1 View Exam date and time: 05/14/2020 3:35 PM Age: 69 years old Clinical indication: Other: SOB TECHNIQUE: Imaging protocol: XR of the chest Views: 1 view. COMPARISON: CR XR CHEST 2V PA LATERAL 10/20/2019 1:46 PM FINDINGS: Lungs: Linear atelectasis versus scarring at the left base. Pleural space: Unremarkable. No pleural effusion. No pneumothorax. Heart/Mediastinum: Unremarkable. No cardiomegaly. Vasculature: Atherosclerosis. Bones/joints: Unremarkable. IMPRESSION: Linear atelectasis versus scarring at the left base. Dictated and Authenticated by: Mae Pacheco MD. Ordering:TE Carrera MD
--- NOTE | 2020-05-14 16:39 | DI.CT_ITS ---
EXAM: CT CHEST PE CTA CLINICAL HISTORY: SOB, hypoxia TECHNIQUE: COMPARISON: CT CHEST FOR PULMONARY EMBOLUS from 06/19/2017 CT ABD PELVIS WO CONTRAST from 09/02/2017 FINDINGS: CT angiography of the chest was performed bolus infusion of 64 cc of Omnipaque 350. There is severe diffuse central lobular emphysema. There are areas of apparent linear scarring particularly in the r ight lung apex. Tracheobronchial tree appears intact. No pleural effusion. No evidence of pulmonar y embolic disease. Thoracic aorta is of normal diameter. No mediastinal or hilar adenopathy. Images obtained through the upper abdomen show unremarkable appearance of visualized portions of live r, spleen, pancreas, adrenals, and kidneys. IMPRESSION: Severe central lobular emphysema and pulmonary scarring. No evidence pulmonary embolic disease. RADIATION DOSE DELIVERED: Total DLP
[2020-05-14] MEDS: Omnipaque 350 MG/ML 100 ML BTL IJ (17:32)
[2020-05-14] MEDS: Normal Saline - Diluent 50 ML VIAL IV (17:33)
[2020-05-14 17:46] LABS: TSH (W/Ref FT4) 1.93 uIU/mL (0.36-3.74)
--- NOTE | 2020-05-14 18:21 | DI.VRAD_ITS ---
PROCEDURE INFORMATION: Exam: CT Angiography Chest With Contrast Exam date and time: 05/14/2020 5:32 PM Age: 69 years old Clinical indication: Shortness of breath and other: Hypoxia TECHNIQUE: Imaging protocol: Computed tomographic angiography of the chest with intravenous contrast. 3D rendering (Not supervised by radiologist): MIP and/or 3D reconstructed images were created by the technologist. COMPARISON: CT CHEST FOR PULMONARY EMBOLUS 06/19/2017 5:53 PM FINDINGS: Pulmonary arteries: Normal. No pulmonary emboli. Aorta: Unremarkable. No aortic aneurysm. No aortic dissection. Lungs: Scarring in the right apex. No infiltrates. Pleural space: Unremarkable. No pneumothorax. No pleural effusion. Heart: Unremarkable. No cardiomegaly. No pericardial effusion. Lymph nodes: Unremarkable. No enlarged lymph nodes. Bones/joints: Unremarkable. No acute fracture. Soft tissues: Unremarkable. IMPRESSION: No pulmonary embolism Dictated and Authenticated by: aMe Pacheco MD. Ordering:TE Carrera MD
[2020-05-14 19:05] LABS: BE 4 mmol/L (-2-3); HCO3 29 mmol/L (22-26); pCO2 52 mmHg (35-45); pH 7.36 (7.35-7.45); pO2 55 mmHg (80-105); sO2 86 % (95-98); tCO2 27 mmol/L (23-27)
[2020-05-14 19:06] LABS: FIO2 21 %; Site Right Radial
--- NOTE | 2020-05-14 19:21 | HPE_ITS ---
Date of service: 05/14/20 Time of Service: 19:21 Assessment and Plan Assessment and plan (1) Dyspnea on exertion: Status: Acute Assessment and plan: MARTIN. No specific findings as of yet. As above awaitin g response to empiric steroids and updrafts. If no obvious response would consider anginal equivalent and plan on stress testing, after R/O. History of Present Illness History of Present Illness Chief Complaint: SOB Narrative: 69 female with COPD reports one week of exertional dyspnea (at first descrbes this a a pressure in her chest, when re-queried again as SOB). Mini,mal cough just today, rarely. No fever. In ER w/u of note for neg trop, nl EKG, neg d-Dimer, neg CXR and CTA. Of concern was exercise desat to 70s, with resting sats 90+/- (baseline per patient). ER unable to arrfange home O2. Admitted for further evaluation. At my being notified of case I requested ABG and empiric steroids and updraft -- all pending. Review of Systems All systems reviewed & are unremarkable except as noted in HPI and below [facility] Medical History (Updated 05/14/20 @ 19:28 by Brady Salmeron MD) Allergic rhinitis Anemia (02/11/14) Suspect chronic dz/bone marrow suppression s/p breast CA tx (radiation); s/p GI workup (possible AVMs?), NL B12/folate, elevated Epo, NL retic count; chronic iron supplementation Atherosclerosis of both carotid arteries (11/12/16) 10/2016 [facility] Vascular Consult: carotid US showing 16-49% stenosis both internal carotids Recommend annual carotid US Breast CA R 2001, L2003 s/p bilateral lumpectomy. S/P XRT and Tamoxifen. Chronic GI bleeding Chronic kidney disease (CKD) Chronic obstructive airway disease (06/04/12) [facility] Pulmonology (Dr. Cruz) Moderate-very severe Last OV & PFTs 08/21/16 [facility] Night-time Oxygen Per pulmonolgy() Severe-very severe KONRAD 10/31/16 Compression fracture of lumbar vertebra (03/14/17) Coronary artery disease (11/14/15) Depression (11/30/02) s/p of brother (on SSRI for short time) Diabetes mellitus (11/27/04) Dx'ed early Goal A1C <7.5% DJD (degenerative joint disease) (02/04/14) Lumbar spine--multiple level on MRI Surgery 10/2011, [facility] Dr. Smith Essential hypertension (05/16/04) H/O laminectomy L5S1 Heart murmur 07/11/2016 echo: mild-moderate mitral regurgitation Hiatal hernia (02/11/14) Smaller portions Endoscopy 10/04 anemia (nothing found), [facility] Hyperlipidemia (03/18/07) Pt on high intensity statin therapy Hypomagnesemia (03/04/17) Intraabdominal calcification (11/14/15) Incidental finding on CT 2 mm between bladder and uterus, no further eval required, AOC Iron deficiency anemia (01/02/17) S/p colo & EGD 05/2015, then capsule endoscopy & push enteroscopy with no definitive etiology identified 11/14/2017: repeat colonoscopy (due to return of anemia) showing a colonic angioectasia, which may have been source of bleeding & anemia (though no overt bleeding found) Fe supplementation & monitor Left renal artery stenosis (08/30/16) 08/21/16 [facility] Vascular Surgery consult: moderate-severe stenosis; given well-controlled HTN & normal kidney function, renal artery intervention not indicated at this t 10/2016: 3 mo f/u renal duplex US showing >60% stenosis with decent blood flow to L kidney Consider stent placement if BP becomes poorly controlled or renal function begins to deteriorate Leg cramps (04/01/14) Low Mg+ --> supplementation helped, but caused diarrhea; handout on dietary Mg+ given Microalbuminuria due to type 2 diabetes mellitus Obstructive sleep apnea (03/02/14) Bipap w/ 2L 02 09/06/2019 Osteopenia (02/14/16) DEXA 02/14/16: Fem neck t-score -1.2 --> WHO FRAX major osteoporotic 13% & hip fx 1.3% risk --> does not qualify for bisphosphonates --> Ca & vit D 03/2017 L3 compression fx --> re-calc WHO FRAX major osteoporotic 21% & hip fx 2.3% risk --> now qualifies for bisphosphonate tx, started 03/2017 Probable allergic rxn to Alendronate (1st pill Sat, Hives Th and stayed thru today (but no worsening), 07/05. Agree to STOP for now. 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 Vascular Surgery consult: moderate stenosis, not source of clinical pathology, & no intervention or further evaluation indicated Superior mesenteric artery stenosis Tobacco use disorder 30-50 PY, QUIT 1999 Surgical History Biopsy, Lymph Node (~2003) (L) axilla for breast CA Breast, Lumpectomy (~2003) B/L for breast CA Extraction of cataract left eye surgical removal with intraocular lens implant. Dr Agee H/O laminectomy (~10/06/12) L5S1 Huyen Frazier, Dr. Garay Oophrectomy, Right (~2007) For unknown reason Tooth Extractions Multiple Family History Sister Breast cancer Mother , 89 Alzheimer's dementia Breast cancer Father , AGE 75 Alcohol abuse Cirrhosis Sister Neoplasm uterine CA Sister Heart disease Brother Heart disease Niece Breast cancer Social History Smoking/Tobacco Use Status: Former Tobacco Use Quit Date: 09/02/00 Pack-years: 37 Tobacco: How many years used: 25 Alcohol Intake: former Details: none Drug use: Never Substance use type: does not use Adopted: No Caregiver/Support person: No Foster care: No Household members: spouse Number of Children: 4 Communication Needs: None Pets and animals: No Current gender identity: female What type of physical activity do you participate in: regular exercise Duration: < 15 minutes/day Frequency: 3-4 times per week Mell/Druze: Roman Catholic Seatbelt use: always Drive intox or ride w/intox transfer driver: No Working smoke detector in home: Yes Fire extinguisher in home: Yes Carbon monox detector in home: Yes Do you feel safe at home: Yes Do you feel safe in your relationship?: Yes Meds Home Medications and Allergies Home Medications Medication Instructions Recorded Confirmed Type aspirin [Aspir-81] 81 mg PO DAILY #90 03/30/13 05/14/20 History Oxygen l NS At Night #2 04/19/16 02/19/19 Clinic multivitamin [Daily Multi-Vitamin] 1 ea PO DAILY 03/19/17 05/14/20 History albuterol sulfate [ProAir HFA] 1 puff INHALATION Q4H PRN #2 04/02/17 05/14/20 History inhaler lancets [Sure Comfort Lancets] #1 box 06/24/17 04/28/20 Rx acetaminophen 1,000 mg PO TID PRN #90 tab-cap 12/16/17 05/14/20 History cyanocobalamin (vitamin B-12) 1,000 mcg PO DAILY #90 tab-cap 05/07/18 05/14/20 Rx 1,000 mcg tablet albuterol sulfate 2.5 mg IH QID PRN #180 ml 08/21/18 05/14/20 Rx nebulizer and compressor #1 each 08/21/18 04/28/20 Rx ipratropium 20 mcg-albuterol 100 1 - 2 puff INHALATION .Q4-6H PRN 10/17/18 05/14/20 Rx mcg/actuation mist for inhalation #3 device betamethasone dipropionate 0.05 % 1 applic TP BID PRN #45 gm 11/26/18 05/14/20 Rx topical ointment calcium carbonate-vitamin D3 600 2 tab PO DAILY #180 tab-cap 04/06/19 05/14/20 Rx mg (1,500 mg)-800 unit tablet magnesium oxide 400 mg (241.3 mg 800 mg PO BID #360 tab-cap 04/06/19 05/14/20 Rx magnesium) tablet atenolol 100 mg tablet 100 mg PO DAILY #30 tab-cap 06/10/19 05/14/20 Rx metformin 1,000 mg tablet 1,000 mg PO BID #180 tab-cap 07/06/19 05/14/20 Rx montelukast 10 mg tablet 10 mg PO DAILY #90 tab-cap 07/06/19 05/14/20 Rx pen needle, diabetic 31 gauge x #100 each 07/15/19 04/28/20 Rx 5/16 clotrimazole 1 % topical ointment 1 applic TP BID 14 Days #56.7 gm 12/11/19 05/14/20 Rx rosuvastatin 20 mg tablet 20 mg PO DAILY #90 tab-cap 01/28/20 05/14/20 Rx empagliflozin 25 mg tablet 25 mg PO DAILY AM #90 tab-cap 02/09/20 05/14/20 Rx valsartan 320 mg tablet 320 mg PO DAILY #90 tab-cap 02/24/20 05/14/20 Rx budesonide-formoterol HFA 160 2 puff INHALATION BID #3 inhaler 03/11/20 05/14/20 Rx mcg-4.5 mcg/actuation aerosol inhaler umeclidinium 62.5 mcg/actuation 62.5 mcg INHALATION DAILY #3 disk 03/11/20 05/14/20 Rx blister powder for inhalation blood sugar diagnostic #200 each 03/18/20 04/28/20 Rx cetirizine 10 mg tablet 10 mg PO DAILY #90 tab-cap 03/18/20 05/14/20 Rx insulin glargine 100 unit/mL (3 14 unit SC HS #4 syringe 03/18/20 05/14/20 Rx mL) subcutaneous pen glipizide 10 mg tablet 10 mg PO BID #180 tab-cap 04/25/20 05/14/20 Rx hydrochlorothiazide 50 mg tablet 50 mg PO QAM #90 tab 04/25/20 05/14/20 Rx ferrous sulfate 650 mg PO DAILY 05/14/20 05/14/20 History omeprazole 20 mg PO DAILY 05/14/20 05/14/20 History Allergies Allergy/AdvReac Type Severity Reaction Status Date / Time propylene glycol Allergy Severe Rash Verified 05/14/20 14:23 petrolatum,white Allergy Intermediate rash Verified 05/14/20 14:23 [From Petroleum Jelly] adhesive tape Allergy Unknown Skin Rash Verified 05/14/20 14:23 alendronate sodium Allergy Unknown Hives Verified 05/14/20 14:23 azithromycin AdvReac Intermediate dry heaves Verified 05/14/20 14:23 and diarrhea hydrocodone bitartrate AdvReac Intermediate Nausea Verified 05/14/20 14:23 [From Vicodin] liraglutide [From Victoza] AdvReac Intermediate diarhhea Verified 05/14/20 14:23 paraben AdvReac Intermediate Skin Rash Verified 05/14/20 14:23 quaternium 15 AdvReac Intermediate generalized Verified 05/14/20 14:23 rash LANDON Inhibitors AdvReac Unknown COUGH,DYSPN Verified 05/14/20 14:23 EA oxycodone HCl [From Percocet] AdvReac Unknown NAUSEA/VOMI Verified 05/14/20 14:23 TING fragranced creams Allergy Intermediate Skin Rash Uncoded 05/14/20 14:23 parabin wax Allergy Intermediate Skin Rash Uncoded 05/14/20 14:23 diogolidinyl AdvReac Severe Skin Rash Uncoded 05/14/20 14:23 bisphenal AdvReac Intermediate Skin Rash Uncoded 05/14/20 14:23 Exam Narrative Exam Narrative: 123/95, 68, 36.7, 20, 88-93% RA. HEENT atraumatic; neck supple; lungs diminished, heart RRR w/o MRG; abdomen sot and NT; extremities w/o edema; neuro Ox3, nonfocal Results Labs Result diagrams: 05/14/20 14:34 05/14/20 14:34 Labs: Laboratory Results - last 24 hr 05/14/20 05/14/20 05/14/20 14:34 14:34 14:34 WBC 3.63 L RBC 4.20 Hgb 12.8 Hct 42.0 MCV 100.0 H MCH 30.5 MCHC 30.5 L RDW 14.2 Plt Count 326 MPV 8.9 Immature Gran % 0.3 Neutrophils % 58.3 Lymphocytes % 28.1 Monocytes % 9.4 Eosinophils % 3.3 Basophils % 0.6 Nucleated RBC % 0 Absolute Neutrophils 2.12 Absolute Lymphocytes 1.02 L Absolute Monocytes 0.34 Absolute Eosinophils 0.12 Absolute Basophils 0.02 D-Dimer ABG Sample Site ABG pH ABG pCO2 ABG pO2 ABG HCO3 ABG Total CO2 ABG O2 Saturation ABG Base Excess FiO2 Sodium 138 Potassium 4.1 Chloride 99 Carbon Dioxide 31.4 Anion Gap 7.6 BUN 33 H Creatinine 1.35 H Estimated GFR/1.73 m2 38.77 Glucose 252 H Calcium 9.2 Magnesium 3.1 H Total Bilirubin 0.2 AST 37 ALT 67 H Alkaline Phosphatase 48 Troponin I < 0.05 NT-Pro-B Natriuret Pep 162 Total Protein 8.1 Albumin 4.0 TSH COVID-19 PCR Nasopharyn COVID-19 PCR Ref Test Perform Site 05/14/20 05/14/20 05/14/20 14:34 14:34 14:37 WBC RBC Hgb Hct MCV MCH MCHC RDW Plt Count MPV Immature Gran % Neutrophils % Lymphocytes % Monocytes % Eosinophils % Basophils % Nucleated RBC % Absolute Neutrophils Absolute Lymphocytes Absolute Monocytes Absolute Eosinophils Absolute Basophils D-Dimer 407 ABG Sample Site ABG pH ABG pCO2 ABG pO2 ABG HCO3 ABG Total CO2 ABG O2 Saturation ABG Base Excess FiO2 Sodium Potassium Chloride Carbon Dioxide Anion Gap BUN Creatinine Estimated GFR/1.73 m2 Glucose Calcium Magnesium Total Bilirubin AST ALT Alkaline Phosphatase Troponin I NT-Pro-B Natriuret Pep Total Protein Albumin TSH 1.93 COVID-19 PCR Cancelled Nasopharyn COVID-19 PCR Cancelled Ref Test Perform Site Cancelled 05/14/20 19:00 WBC RBC Hgb Hct MCV MCH MCHC RDW Plt Count MPV Immature Gran % Neutrophils % Lymphocytes % Monocytes % Eosinophils % Basophils % Nucleated RBC % Absolute Neutrophils Absolute Lymphocytes Absolute Monocytes Absolute Eosinophils Absolute Basophils D-Dimer ABG Sample Site Right radial ABG pH 7.36 ABG pCO2 52 H ABG pO2 55 L ABG HCO3 29 H ABG Total CO2 27 ABG O2 Saturation 86 L ABG Base Excess 4 H FiO2 21 Sodium Potassium Chloride Carbon Dioxide Anion Gap BUN Creatinine Estimated GFR/1.73 m2 Glucose Calcium Magnesium Total Bilirubin AST ALT Alkaline Phosphatase Troponin I NT-Pro-B Natriuret Pep Total Protein Albumin TSH COVID-19 PCR Nasopharyn COVID-19 PCR Ref Test Perform Site Last Vital Signs Temp 36.7 C 05/14/20 14:20 Pulse 63 05/14/20 17:01 Resp 20 05/14/20 17:20 BP 123/95 H 05/14/20 17:01 Pulse Ox 89 L 05/14/20 17:20 COVID-19 Screening Have you,or household,traveled outside [place] in last 14 days?: No Had IN PERSON contact w/suspected or confirmed C-19 person: No
[2020-05-14] MEDS: methylPREDNISolone SUCC 125 MG VIAL 80 MG IVP (20:01)
[2020-05-14] MEDS: Albuterol/Ipratropium 3 ML UPD VIAL UPD (20:45)
[2020-05-14 21:30] LABS: Troponin I < 0.05 ng/mL (<0.06)
[2020-05-14] MEDS: Insulin Glargine 300 UNITS/3 ML PEN 14 UNITS SC (22:23)
[2020-05-15 01:59] VITALS: BP 133/54; PULSE 73; RESP 20; TEMP 36.7; O2SAT 94
[2020-05-15 07:49] LABS: Troponin I < 0.05 ng/mL (<0.06)
[2020-05-15] MEDS: Budesonide/Formoterol 160/4.5 6 GM 60 PUFF INH IH ×2 (08:05→20:17)
[2020-05-15 08:08] LABS: Anion Gap 9.4 mmol/L (3-11); BUN 35 mg/dL (7-18); CO2 26.6 mmol/L (21.0-32.0); CREATININE 1.41 mg/dL (0.55-1.02); Calcium 9.7 mg/dL (8.5-10.1); Chloride 102 mmol/L (98-107); Estimated GFR 36.87 (mL/min/1.73m2); Glucose 263 mg/dL (74-106); Magnesium 2.9 mg/dL (1.8-2.4); Potassium 4.7 mmol/L (3.5-5.1); Sodium 138 mmol/L (136-145)
[2020-05-15 08:10] LABS: Abs Immature Grans 0.02 10^3/uL (0.0-0.06); Absolute Monocyte Count 0.06 10^3/uL (0.1-0.8); Absolute Neutrophil Count 3.71 10^3/uL (1.2-6.7); HCT 41.7 % (36.0-46.0); HGB 13.4 g/dL (11.2-15.7); Immature Grans % 0.5; Lymphocytes % 9.5; MCH 30.9 pg (27.0-33.0); MCHC 32.1 % (32.0-36.0); MCV 96.3 fL (80-95); MPV 8.8 fL (8.0-11.0); Monocytes % 1.4; Neutrophils % 88.6; Nucleated RBC 0 %; Platelet Count 312 10^3/uL (130-400); RBC 4.33 10^6/uL (3.93-5.22); RDW 14.1 % (11.7-14.6); RDW-SD 49.2 fL; WBC 4.19 10^3/uL (4.4-10.8)
[2020-05-15] MEDS: hydroCHLOROthiazide 25 MG TAB 50 MG PO (08:14)
[2020-05-15] MEDS: predniSONE 20 MG TAB 60 MG PO ×2 (08:14→20:15)
[2020-05-15] MEDS: Aspirin E.C. 81 MG TABEC PO (08:14)
[2020-05-15] MEDS: Valsartan 80 MG TAB 320 MG PO (08:14)
[2020-05-15] MEDS: glipiZIDE 10 MG TAB PO ×2 (08:14→16:51)
[2020-05-15] MEDS: Atenolol 50 MG TAB 100 MG PO (08:14)
[2020-05-15] MEDS: Omeprazole 20 MG CAPCR PO (08:15)
[2020-05-15] MEDS: metFORMIN 500 MG TAB 1000 MG PO ×2 (08:15→16:51)
[2020-05-15] MEDS: Insulin Aspart 300 UNITS/3 ML PEN SC ×3 (08:17→16:51)
[2020-05-15] MEDS: Acetaminophen 500 MG TAB 1000 MG PO ×2 (08:32→22:18)
--- NOTE | 2020-05-15 09:02 | INITIAL_ITS ---
- If Service Date Differs Date of service: 05/15/20 Time of Service: 15:12 Care Management Initial Assess REASON FOR HOSPITALIZATION:: SOB PAST MEDICAL HISTORY/PAST SURGICAL HISTORY:: Allergic rhinitis, anemia, atherosclerosis of both carotid arteries, breast CA, chronic GI bleeding, CKD, chronic obstructive airway disease, compression fracture of lumbar vertebra, depression, DM, DJD, hypertension, laminectomy, heart murmur, hiatal hernia, hyperlipidemia, hypomagnesemia, intraabdominal calcification, left renal artery stenosis, leg cramps, microalbulminuria, NIKKI, osteopenia, pnemonia, reflux esophagitis, solitary pulmonary nodule, stenosis of celiac artery, superior mesenteric artery stenosis, tobacco use disorder, biopsy lymph node, breast lumpectomy, cataract extraction, laminectomy, oophrectomy, tooth extractions PREVIOUS FUNCTIONAL STATUS/SOCIAL/FAMILY SUPPORTS:: Nahed lives with her , Isaac in [place]. They have four adult children and many grandchildren. She uses oxygen in a CPAP machine at night, but is otherwise independent with her ADL's. CURRENT FUNCTIONAL STATUS:: Nahed is currently in respiratory isolation awaiting covid test results. CM continues to follow. ADVANCE DIRECTIVES:: On file, Maria Del Carmen Venegas is listed as agent. Has patient been provided with info about the portal/API?: Yes Did the patient sign up for the portal?: Yes (Previously) CODE STATUS:: Full Code INSURANCE COVERAGE / FINANCIAL ISSUES:: [employer], GL[employer]YS/BS CURRENT HOME/COMMUNITY SERVICES/EQUIPMENT:: Nahed currently uses a CPAP machine at night. PRIMARY CARE PHYSICIAN:: María Mendoza POTENTIAL DISCHARGE NEEDS:: Evaluations for further needs, follow up appointments PATIENT/FAMILY EDUCATION NEEDS:: Review of discharge instructions, discussion of self care needs including Ask Me Three ANTICIPATED BARRIERS TO DISCHARGE:: None identified at this time. TRANSPORTATION:: Her , Isaac will drive her home via private vehicle. PLAN:: Anticipate Nahed will discharge home with no additional services when medically cleared. Isaac will drive her home when ready. Follow up appointments as recommended. CM will continue to follow.
[2020-05-15] MEDS: Ipratropium/Albuterol 4 GM 120 PUFF INH IH ×2 (10:35→20:17)
[2020-05-15] MEDS: INCRUSE ELLIPTA 62.5MCG IH (10:36)
[2020-05-15 11:12] VITALS: PULSE 61; PULSE 62; PULSE 70; PULSE 74; RESP 16; RESP 20; O2SAT 80; O2SAT 88; O2SAT 90; O2SAT 91
[2020-05-15 11:14] VITALS: RESP 15
[2020-05-15 11:36] VITALS: BP 115/47; PULSE 60; RESP 17; TEMP 36.6; O2SAT 98
[2020-05-15] MEDS: Doxycycline Hyclate 100 MG CAP PO ×2 (11:41→20:16)
--- NOTE | 2020-05-15 13:05 | PHA.REVIEW ---
Pharmacy Admission Review - Admission Clinical Review (Last Reviewed 05/14/20 @ 19:25 by Brady Salmeron MD) Dyspnea on exertion (Acute) Dyspnea on exertion (Acute) propylene glycol Allergy (Severe, Verified 05/14/20 14:23) Rash petrolatum,white [From Petroleum Jelly] Allergy (Intermediate, Verified 05/14/20 14:23) rash adhesive tape Allergy (Unknown, Verified 05/14/20 14:23) Skin Rash alendronate sodium Allergy (Unknown, Verified 05/14/20 14:23) Hives azithromycin Adverse Reaction (Intermediate, Verified 05/14/20 14:23) dry heaves and diarrhea hydrocodone bitartrate [From Vicodin] Adverse Reaction (Intermediate, Verified 05/14/20 14:23) Nausea liraglutide [From Victoza] Adverse Reaction (Intermediate, Verified 05/14/20 14:23) diarhhea paraben Adverse Reaction (Intermediate, Verified 05/14/20 14:23) Skin Rash quaternium 15 Adverse Reaction (Intermediate, Verified 05/14/20 14:23) generalized rash LANDON Inhibitors Adverse Reaction (Unknown, Verified 05/14/20 14:23) COUGH,DYSPNEA oxycodone HCl [From Percocet] Adverse Reaction (Unknown, Verified 05/14/20 14:23) NAUSEA/VOMITING fragranced creams Allergy (Intermediate, Uncoded 05/14/20 14:23) Skin Rash parabin wax Allergy (Intermediate, Uncoded 05/14/20 14:23) Skin Rash diogolidinyl Adverse Reaction (Severe, Uncoded 05/14/20 14:23) Skin Rash bisphenal Adverse Reaction (Intermediate, Uncoded 05/14/20 14:23) Skin Rash Height 5 ft Weight 69.853 kg - Renal Dosing Renal Dosing: BUN 35 mg/dL (7-18) H 05/15/20 07:05 Creatinine 1.41 mg/dL (0.55-1.02) H 05/15/20 07:05 Medications needing adjustments: Reviewed (per global RPh CRCL ~32ML/MIN) List of meds needing interventions: pt eGFR~37. per uptodate: metformin: eGFR 30 to 45 mL/minute/1.73 m2: Continuation of existing therapy: May continue at a reduced dose up to a maximum of 500 mg twice daily with close monitoring of kidney function. Jardiance: eGFR 30 to <45 mL/minute/1.73 m2: The advisory services associate recommends to not initiate therapy, or to discontinue therapy in patients already taking empagliflozin, when eGFR is persistently <45 mL/minute/1.73 m2. - Anticoagulation Anticoagulation: Hgb 13.4 g/dL (11.2-15.7) 05/15/20 07:05 Hct 41.7 % (36.0-46.0) 05/15/20 07:05 Plt Count 312 10^3/uL (130-400) 05/15/20 07:05 Creatinine 1.41 mg/dL (0.55-1.02) H 05/15/20 07:05 DVT Prohphylaxis: Reviewed (not at this time ? due to h/o anemia) - Relevant Labs Sodium 138 mmol/L (136-145) 05/15/20 07:05 Potassium 4.7 mmol/L (3.5-5.1) 05/15/20 07:05 Chloride 102 mmol/L (98-107) 05/15/20 07:05 Magnesium 2.9 mg/dL (1.8-2.4) H 05/15/20 07:05 Electrolytes, C-Reactive P, ESR: Reviewed - DM Control DM Control: Glucose 263 mg/dL (74-106) H 05/15/20 07:05 Finger Stick Blood Glucose 306 Finger Stick Blood Glucose 306 Finger Stick Blood Glucose 273 Finger Stick Blood Glucose 273 Insulin Dosing: Reviewed (on insulin aspart, glargine, metformin, glipizide and pt own med jardiance) - Heart Failure/CO Heart Failure/CO: Troponin I < 0.05 ng/mL (<0.06) 05/15/20 07:05 NT-Pro-B Natriuret Pep 162 pg/mL (<300) 05/14/20 14:34 - BP Control BP Control: Blood Pressure 115/47 Blood Pressure 133/54 If elevated: N/A - Home Meds Home Med List reviewed: Reviewed (combivent from amb list doesn't match ordered med or summary page dosing. printed sheet for RT to show provider) - Current meds Current Medication Order Review: Reviewed (ABX: PO DOXY) - Comments Comments/Follow Ups: watch renal function for changes and any new meds may need adjustment
--- NOTE | 2020-05-15 14:25 | W.PM.PROGNOT ---
Date of Service Date of service: 05/15/20 Time of Service: 14:25 Assessment and Plan Assessment and plan (1) Acute bacterial bronchitis: Start date: 05/15/20 Start time: 14:46 Status: Acute Assessment and plan: CXR clear, however does have cough with yellow sputum, History of COPD, started on doxy for acute bronchitis with acute COPD exacerbation Prednisone PO 60 mg BID. Patient is feeling better today. ICS/acapella Mucinex (2) Dyspnea on exertion: Start date: 05/15/20 Start time: 14:47 Status: Acute Assessment and plan: secondary to above with acute COPD exacerbation Oxygen level resting on RA 93% with ambulation is 80% on RA and with 2 Liters oxygen, Will treat as above and repeat exercise oximetery on day of discharge (3) COPD exacerbation: Start date: 05/15/20 Start time: 14:49 Status: Acute Assessment and plan: In setting of acute bronchitis, contributing to MARTIN. As above Will use Bipap at hs. Requiring oxygen at this time. (4) Obstructive sleep apnea: Start date: 05/15/20 Start time: 14:49 Status: Chronic Assessment and plan: Bipap at hs above case discussed with Dr. Locke who is in agreement. Subjective Subjective Patient reports: feels better Interval history since last seen: Feels better, MARTIN improving. No CP, SOB, N/v/D Exam Narrative Exam Narrative: Elderly female that appears to be in no distress, AAOx 3 pleasant. Sitting up in bed on 2 liter oxygen HEENT atraumatic; neck supple; lungs diminished, heart RRR w/o MRG; abdomen sot and NT; extremities w/o edema; neuro Ox3, nonfocal Objective Objective Clinical Data: Abnormal lab results 05/14/20 05/14/20 05/14/20 Range/Units 14:34 14:34 14:34 WBC 3.63 L (4.4-10.8) 10^3/uL MCV 100.0 H (80-95) fL MCHC 30.5 L (32.0-36.0) % Absolute Lymphocytes 1.02 L (1.2-3.4) 10^3/uL Absolute Monocytes (0.1-0.8) 10^3/uL ABG pCO2 (35-45) mmHg ABG pO2 (80-105) mmHg ABG HCO3 (22-26) mmol/L ABG O2 Saturation (95-98) % ABG Base Excess (-2-3) mmol/L BUN 33 H (7-18) mg/dL Creatinine 1.35 H (0.55-1.02) mg/dL Glucose 252 H (74-106) mg/dL Magnesium 3.1 H (1.8-2.4) mg/dL ALT 67 H (14-59) U/L 05/14/20 05/15/20 05/15/20 Range/Units 19:00 07:05 07:05 WBC 4.19 L (4.4-10.8) 10^3/uL MCV 96.3 H D (80-95) fL MCHC (32.0-36.0) % Absolute Lymphocytes 0.40 L (1.2-3.4) 10^3/uL Absolute Monocytes 0.06 L (0.1-0.8) 10^3/uL ABG pCO2 52 H (35-45) mmHg ABG pO2 55 L (80-105) mmHg ABG HCO3 29 H (22-26) mmol/L ABG O2 Saturation 86 L (95-98) % ABG Base Excess 4 H (-2-3) mmol/L BUN 35 H (7-18) mg/dL Creatinine 1.41 H (0.55-1.02) mg/dL Glucose 263 H (74-106) mg/dL Magnesium 2.9 H (1.8-2.4) mg/dL ALT (14-59) U/L Vital Signs Temperature 36.6 C 05/15/20 11:36 Temperature Source Skin 05/15/20 11:36 Pulse 60 05/15/20 11:36 Pulse Rhythm Regular 05/15/20 08:11 Pulse 68 05/14/20 19:31 Respiratory Rate 17 05/15/20 11:36 Respiratory Effort Non-Labored 05/15/20 08:11 Respiratory Depth Normal 05/15/20 08:11 Respiratory Pattern Normal 05/15/20 08:11 Blood Pressure 115/47 L 05/15/20 11:36 Blood Pressure Mean 82 05/14/20 20:01 Blood Pressure Position Sitting 05/14/20 14:20 Pulse Oximetry 98 05/15/20 11:36 Oxygen Delivery Method Nasal Cannula 05/15/20 11:36 Oxygen Flow Rate 2 05/15/20 11:36 Pain Level 0 05/15/20 11:36 Comment 05/15/20 11:36 Intake & Output 05/14/20 05/15/20 05/15/20 23:59 11:59 23:59 Intake Total 360 / 1320 960 / 1320 Output Total 500 / 500 1700 / 1800 100 / 1800 Balance -490 / -490 -1340 / -480 860 / -480 Weight 69.853 kg Intake: IV Oral 360 / 1320 960 / 1320 Output: Urine 500 / 500 1700 / 1800 100 / 1800 Other: Urine Color Yellow Yellow Yellow Urine Appearance Clear Clear Clear Urine Odor None Normal Normal Comment Void x1 in the toilet. Void x1 in the toilet. Stool Size Moderate Stool Characteristics Soft Formed Brown Voiding Methods Toilet Toilet Toilet Laboratory Results WBC 4.19 10^3/uL (4.4-10.8) L 05/15/20 07:05 RBC 4.33 10^6/uL (3.93-5.22) 05/15/20 07:05 Hgb 13.4 g/dL (11.2-15.7) 05/15/20 07:05 Hct 41.7 % (36.0-46.0) 05/15/20 07:05 MCV 96.3 fL (80-95) H D 05/15/20 07:05 MCH 30.9 pg (27.0-33.0) 05/15/20 07:05 MCHC 32.1 % (32.0-36.0) 05/15/20 07:05 RDW 14.1 % (11.7-14.6) 05/15/20 07:05 Plt Count 312 10^3/uL (130-400) 05/15/20 07:05 MPV 8.8 fL (8.0-11.0) 05/15/20 07:05 Immature Gran % 0.5 05/15/20 07:05 Neutrophils % 88.6 05/15/20 07:05 Lymphocytes % 9.5 05/15/20 07:05 Monocytes % 1.4 05/15/20 07:05 Eosinophils % 0.0 05/15/20 07:05 Basophils % 0.0 05/15/20 07:05 Nucleated RBC % 0 % 05/15/20 07:05 Absolute Neutrophils 3.71 10^3/uL (1.2-6.7) 05/15/20 07:05 Absolute Lymphocytes 0.40 10^3/uL (1.2-3.4) L 05/15/20 07:05 Absolute Monocytes 0.06 10^3/uL (0.1-0.8) L 05/15/20 07:05 Absolute Eosinophils 0.00 10^3/uL (0.0-0.7) 05/15/20 07:05 Absolute Basophils 0.00 10^3/uL (0.0-0.2) 05/15/20 07:05 D-Dimer 407 ng/mlFEU (<500) 05/14/20 14:34 ABG Sample Site Right radial 05/14/20 19:00 ABG pH 7.36 (7.35-7.45) 05/14/20 19:00 ABG pCO2 52 mmHg (35-45) H 05/14/20 19:00 ABG pO2 55 mmHg (80-105) L 05/14/20 19:00 ABG HCO3 29 mmol/L (22-26) H 05/14/20 19:00 ABG Total CO2 27 mmol/L (23-27) 05/14/20 19:00 ABG O2 Saturation 86 % (95-98) L 05/14/20 19:00 ABG Base Excess 4 mmol/L (-2-3) H 05/14/20 19:00 FiO2 21 % 05/14/20 19:00 Sodium 138 mmol/L (136-145) 05/15/20 07:05 Potassium 4.7 mmol/L (3.5-5.1) 05/15/20 07:05 Chloride 102 mmol/L (98-107) 05/15/20 07:05 Carbon Dioxide 26.6 mmol/L (21.0-32.0) 05/15/20 07:05 Anion Gap 9.4 mmol/L (3-11) 05/15/20 07:05 BUN 35 mg/dL (7-18) H 05/15/20 07:05 Creatinine 1.41 mg/dL (0.55-1.02) H 05/15/20 07:05 Estimated GFR/1.73 m2 36.87 (mL/min/1.73m2) 05/15/20 07:05 Glucose 263 mg/dL (74-106) H 05/15/20 07:05 Calcium 9.7 mg/dL (8.5-10.1) 05/15/20 07:05 Magnesium 2.9 mg/dL (1.8-2.4) H 05/15/20 07:05 Total Bilirubin 0.2 mg/dL (0.2-1.0) 05/14/20 14:34 AST 37 U/L (15-37) 05/14/20 14:34 ALT 67 U/L (14-59) H 05/14/20 14:34 Alkaline Phosphatase 48 U/L (46-116) 05/14/20 14:34 Troponin I < 0.05 ng/mL (<0.06) 05/15/20 07:05 NT-Pro-B Natriuret Pep 162 pg/mL (<300) 05/14/20 14:34 Total Protein 8.1 g/dL (6.4-8.2) 05/14/20 14:34 Albumin 4.0 g/dL (3.4-5.0) 05/14/20 14:34 TSH 1.93 uIU/mL (0.36-3.74) 05/14/20 14:34 COVID-19 PCR Cancelled 05/14/20 14:37 Nasopharyn COVID-19 PCR Cancelled 05/14/20 14:37 Ref Test Perform Site Cancelled 05/14/20 14:37
[2020-05-15 14:31] VITALS: BP 114/48; PULSE 64; RESP 16; TEMP 36.7; O2SAT 95
[2020-05-15 20:00] VITALS: BP 135/65; PULSE 66; RESP 18; TEMP 36.7; O2SAT 96
[2020-05-15] MEDS: guaiFENesin 600 MG TABCR PO (20:15)
[2020-05-15] MEDS: ROSUVASTATIN 20 MG TAB PO (20:16)
[2020-05-15] MEDS: Montelukast 10 MG TAB PO (22:11)
[2020-05-15] MEDS: Insulin Glargine 300 UNITS/3 ML PEN 14 UNITS SC (22:13)
[2020-05-16] VITALS (9 sets, daily range): BP systolic 119–156; BP diastolic 50–76; PULSE 59–73; RESP 15–20; TEMP 36.3–36.8; O2SAT 83–98
[2020-05-16 07:23] LABS: Abs Immature Grans 0.06 10^3/uL (0.0-0.06); Absolute Lymphocyte Count 0.44 10^3/uL (1.2-3.4); Absolute Monocyte Count 0.13 10^3/uL (0.1-0.8); Absolute Neutrophil Count 5.78 10^3/uL (1.2-6.7); HCT 37.5 % (36.0-46.0); HGB 11.7 g/dL (11.2-15.7); Immature Grans % 0.9; Lymphocytes % 6.9; MCH 30.5 pg (27.0-33.0); MCHC 31.2 % (32.0-36.0); MCV 97.7 fL (80-95); Neutrophils % 90.2; Nucleated RBC 0 %; Platelet Count 295 10^3/uL (130-400); RBC 3.84 10^6/uL (3.93-5.22); RDW 14.4 % (11.7-14.6); WBC 6.41 10^3/uL (4.4-10.8)
[2020-05-16 07:40] LABS: Magnesium 2.5 mg/dL (1.8-2.4)
[2020-05-16] MEDS: Ipratropium/Albuterol 4 GM 120 PUFF INH IH ×2 (07:54→19:40)
[2020-05-16] MEDS: INCRUSE ELLIPTA 62.5MCG IH (07:57)
[2020-05-16] MEDS: Budesonide/Formoterol 160/4.5 6 GM 60 PUFF INH IH ×2 (08:08→19:40)
[2020-05-16] MEDS: guaiFENesin 600 MG TABCR PO ×2 (08:21→19:40)
[2020-05-16] MEDS: Atenolol 50 MG TAB 100 MG PO (08:21)
[2020-05-16] MEDS: Doxycycline Hyclate 100 MG CAP PO ×2 (08:21→19:39)
[2020-05-16] MEDS: glipiZIDE 10 MG TAB PO ×2 (08:21→17:13)
[2020-05-16] MEDS: Valsartan 80 MG TAB 320 MG PO (08:21)
[2020-05-16] MEDS: Aspirin E.C. 81 MG TABEC PO (08:22)
[2020-05-16] MEDS: predniSONE 20 MG TAB 60 MG PO ×2 (08:22→19:40)
[2020-05-16] MEDS: Omeprazole 20 MG CAPCR PO (08:22)
[2020-05-16] MEDS: metFORMIN 500 MG TAB 1000 MG PO ×2 (08:22→17:13)
[2020-05-16] MEDS: Acetaminophen 500 MG TAB 1000 MG PO (08:22)
[2020-05-16] MEDS: hydroCHLOROthiazide 25 MG TAB 50 MG PO (08:22)
[2020-05-16] MEDS: Insulin Aspart 300 UNITS/3 ML PEN SC ×3 (08:22→17:13)
[2020-05-16] MEDS: Normal Saline Flush 10 ML SYR IVP (08:23)
[2020-05-16 08:30] LABS: COVID-19 RT-PCR UVMMC Result Negative (Negative)
--- NOTE | 2020-05-16 09:35 | W.PM.PROGNOT ---
Date of Service Date of service: 05/16/20 Time of Service: 09:36 Assessment and Plan Assessment and plan (1) Acute bacterial bronchitis: Start date: 05/16/20 Start time: 09:39 Status: Acute Assessment and plan: CXR clear, however does have cough with yellow sputum, History of COPD, started on doxy for acute bronchitis with acute COPD exacerbation Prednisone PO 60 mg BID. Patient is feeling better today. Wants to go home Unable to maintain saturation above 83% will give patient one more day on steroids and antibotics, exercise oximetry in am if unable to maintain saturation above 88% will be discharged home on 2 liters. ICS/acapella Mucinex Echo to r/o pulm htn she does have sleep apnea, uses bipap (2) Dyspnea on exertion: Start date: 05/16/20 Start time: 09:41 Status: Acute Assessment and plan: secondary to above with acute COPD exacerbation Oxygen level resting on RA 93% with ambulation is 80% on RA and with 2 Liters oxygen, Will treat as above and repeat exercise oximetery on day of discharge (3) COPD exacerbation: Start date: 05/16/20 Start time: 09:41 Status: Acute Assessment and plan: In setting of acute bronchitis, contributing to MARTIN. As above Will use Bipap at hs. Requiring oxygen at this time. (4) Obstructive sleep apnea: Start date: 05/16/20 Start time: 09:41 Status: Chronic Assessment and plan: Bipap at hs above case discussed with Dr. Locke who is in agreement. Subjective Subjective Patient reports: no new complaints and feels better Interval history since last seen: Feels better, unable to maintain saturation above 83% on RA. Requiring oxygen, does not feel SOB, echo this afternoon r/o pulm HTN. Does not need stress at this time. Denies CP, SOB minimal with excertion. Exam Narrative Exam Narrative: Elderly female that appears to be in no distress, AAOx 3 pleasant. Sitting up in bed on 2 liter oxygen HEENT atraumatic; neck supple; lungs diminished, heart RRR w/o MRG; abdomen sot and NT; extremities w/o edema; neuro Ox3, nonfocal Objective Last Vital Signs Temp 36.8 C 05/16/20 08:20 Pulse 63 05/16/20 08:20 Resp 16 05/16/20 08:20 BP 119/50 L 05/16/20 08:20 Pulse Ox 95 05/16/20 08:20 Laboratory Results - last 24 hr 05/14/20 05/16/20 05/16/20 14:34 06:45 06:45 WBC 6.41 D RBC 3.84 L Hgb 11.7 Hct 37.5 MCV 97.7 H MCH 30.5 MCHC 31.2 L RDW 14.4 Plt Count 295 MPV 9.0 Immature Gran % 0.9 Neutrophils % 90.2 Lymphocytes % 6.9 Monocytes % 2.0 Eosinophils % 0.0 Basophils % 0.0 Nucleated RBC % 0 Absolute Neutrophils 5.78 Absolute Lymphocytes 0.44 L Absolute Monocytes 0.13 Absolute Eosinophils 0.00 Absolute Basophils 0.00 Magnesium 2.5 H COVID-19 PCR Negative Nasopharyn COVID-19 PCR Not Applicable Ref Test Perform Site [facility] lab
--- NOTE | 2020-05-16 12:01 | CMPROGNOTE_ITS ---
- If Service Date Differs Date of service: 05/16/20 Time of Service: 12:01 Care Management Progress Note S/O: Nahed was sitting up on the side of her bed when CM met with her. She reported that she was feeling good, but her O2 was still below 88%, which she stated is her baseline. She reported that she only has the Bipap at night currently, no O2 during the day. She stated that when she gets sick her O2 requirements go up, but they generally will go back to baseline after a few days. Per report, she will remain at [facility] overnight and will have an exercise oximetry walk tomorrow morning to re check her O2 saturation. Nahed is agreeable to the plan. CM will continue to follow. A: Nahed is a 69 year old female admitted to [facility] on 05/14/20 with SOB. P: Anticipate Nahed will return home when medically cleared. She may require new O2, services to be determined. She will be driven home by family via private vehicle. She will follow up with her PCP and discharge plan of care. CM will continue to follow and support discharge planning considerations.
[2020-05-16] MEDS: Bacitracin 30 GM TUBE TP (17:48)
[2020-05-16] MEDS: ROSUVASTATIN 20 MG TAB PO (19:40)
[2020-05-16] MEDS: Montelukast 10 MG TAB PO (21:16)
[2020-05-16] MEDS: Insulin Glargine 300 UNITS/3 ML PEN 14 UNITS SC (21:16)
[2020-05-17] VITALS (7 sets, daily range): BP systolic 135–150; BP diastolic 60–62; PULSE 65–74; RESP 12–20; TEMP 36.3–36.5; O2SAT 91–97
--- NOTE | 2020-05-17 | DI.US_ITS ---
APPROVED REPORT EXAM: Comprehensive 2D, Doppler, and color-flow Echocardiogram Patient Location: In-Patient Room/Bed: [address] Inside Barrel Lathe Operator: Celeste Ashraf RDCS (AE) Indications: SOB Other Information Study Quality: Adequate Conclusion Left Ventricle : The left ventricle is normal size. The left ventricular systolic function is normal. The left ventricular ejection fraction is within the normal range. There is normal left ventricular wall thickness. There is normal LV segmental wall motion. The left ventricular diastolic function is normal. LVEF is 55-60%. Right Ventricle : The right ventricle is normal size. The right ventricular systolic function is norm al. The RVSP is 34.3 mmHg. Atria : The left atrium size is normal. The right atrium size is normal. Valves: There are no hemodynamically significant valvular lesions. Great Vessels : The aortic root is normal in size. The ascending aorta is normal in size. Aortic arch is not well visualized. IVC is normal in size and collapses >50% with inspiration. Compared to echocardiogram from 07/11/2016, there is no significant change. Wall motion Left Ventricle The left ventricle is normal size. The left ventricular systolic function is normal. The left ventric ular ejection fraction is within the normal range. There is normal left ventricular wall thickness. T here is normal LV segmental wall motion. The left ventricular diastolic function is normal. There is no ventricular septal defect visualized. LVEF is 55-60%. Right Ventricle The right ventricle is normal size. The right ventricular systolic function is normal. The RVSP is 34 .3 mmHg. Atria The left atrium size is normal. The right atrium size is normal. The interatrial septum is intact wit h no evidence for an atrial septal defect. Aortic Valve The Aortic valve is sclerotic. Aortic valve is trileaflet. No hemodynamically significant valvular ao rtic stenosis. No aortic regurgitation is present. Mitral Valve Mild to moderate mitral annular calcification. No evidence of mitral valve stenosis. Mild mitral regu rgitation. Tricuspid Valve The tricuspid valve is normal in structure. There is no tricuspid valve stenosis. Trace tricuspid reg urgitation. Pulmonic Valve The pulmonary valve is normal in structure. There is no pulmonic valvular stenosis. Trace pulmonic re gurgitation. Great Vessels The aortic root is normal in size. The ascending aorta is normal in size. Aortic arch is not well vis ualized. IVC is normal in size and collapses >50% with inspiration. Pericardium There is no pericardial effusion. 2D Dimensions IVSD d PLAX 0.85 cm F: 0.6-1.0 LV Vol A2C d MOD 59.6 mL LVPW d PLAX 0.87 cm F: 0.6 - 1.0 LV Vol A4C d MOD 60.9 mL LVID d PLAX 4.40 cm F: 3.8 - 5.2 LA vol/ BSA A2C s A-L 30.5 mL/m2 LVDs 2.95 cm F: 2.2 - 3.5 LA vol/ BSA A4C s A-L 26.1 mL/m2 Ao Root d 2.37 cm F: 2.7 - 3.3 LA Vol/ BSA Biplane s A-L 28.9 mL/m2 RA Area A4C 14.59 cm2 LA Area A4C s MOD 16.67 cm2 RA Vol/ BSA A4C s A-L 23.3 mL/m2 LA Area A2C s MOD 17.60 cm2 Ao Asc Diam d 2.89 cm F: 2.3 - 3.1 LV EF A4C MOD 55.3 % LV EF Teichholz 61.4 % LV EF A2C MOD 58.5 % LVEF ([employer]) 56.44 % F: 54 - 74 LV EF Biplane MOD 56.4 % LV Volume 50.22 mL F: 46 - 106 SV 35.42 mL LV Volume Index 30.25 mL/m2 F: 29 - 61 SV Index 21.27 mL/m2 LV Vol Biplane MOD 62.8 mL FS 32.70 % M-Mode TAPSE 2.49 cm (M/F) >1.7 LV Diastology MV E' medial 0.074 (>0.07 m/s) E/A Ratio 1.0 LV E/e MED 16.00 (<14) MV E Vmax 1.19 (0.4-1.3 m/s) MV E' lateral 0.100 (>0.1 m/s) MV A Vmax 1.25 (0.4-1.3 m/s) LV E/e LAT 11.90 (<14) MV E/A Ratio 0.94 MV E/E' medial 16.03 MV E/E' lateral 11.92 Aortic Valve LVOT Area 2.70 cm2 AoV Area Vmax 2.04 cm2 LVOT Vmax 1.58 m/s AoV Area/ BSA (Vmax) 1.23 cm2/m2 LVOT Mean Andrea. 1.07 m/s LANDON Mean Andrea. 2.14 cm2 LVOT Peak Grad 10.0 mmHg LANDON Mean Andrea. Index 1.28 cm2/m2 LVOT Mean Grad 5.3 mmHg LVOT VTI 0.405 m LVOT Diam s 1.85 cm AoV Vmax 2.10 m/s Velocity Ratio 0.75 AoV Mean Andrea. 1.35 m/s AoV Peak Grad 17.6 mmHg LVOT SV 109.54 mL AoV Mean Grad 8.4 mmHg AoV VTI 0.454 m AoV Area VTI 2.41 cm2 AoV Area/ BSA (VTI) 1.45 cm/m2 Mitral Valve MV DT 298 (160-240 msec) MV PHT 87 msec MV Area PHT 2.54 cm2 Pulmonary Valve PV Vmax 1.31 (0.5-1.5 m/s) RVOT Peak Gr. 3.43 mmHg PV Peak Grad 6.9 mmHg RVOT Mean Gr. 1.90 mmHg PV Mean Grad 3.6 mmHg RVOT VTI 0.253 m PV VTI 0.344 m RVOT Vmax 0.93 m/s Tricuspid Valve TR Peak Grad 31.3 mmHg TR Vmax 2.80 m/s RA Pressure 3.00 mmHg RVSP (TR) 34.3 mmHg
[2020-05-17] MEDS: INCRUSE ELLIPTA 62.5MCG IH (07:58)
[2020-05-17] MEDS: Ipratropium/Albuterol 4 GM 120 PUFF INH IH (07:59)
[2020-05-17] MEDS: Insulin Aspart 300 UNITS/3 ML PEN SC ×2 (08:24→12:15)
[2020-05-17] MEDS: Doxycycline Hyclate 100 MG CAP PO (08:24)
[2020-05-17] MEDS: Valsartan 80 MG TAB 320 MG PO (08:25)
[2020-05-17] MEDS: predniSONE 20 MG TAB 60 MG PO (08:25)
[2020-05-17] MEDS: glipiZIDE 10 MG TAB PO (08:25)
[2020-05-17] MEDS: guaiFENesin 600 MG TABCR PO (08:25)
[2020-05-17] MEDS: metFORMIN 500 MG TAB 1000 MG PO (08:26)
[2020-05-17] MEDS: Aspirin E.C. 81 MG TABEC PO (08:26)
[2020-05-17] MEDS: hydroCHLOROthiazide 25 MG TAB 50 MG PO (08:26)
[2020-05-17] MEDS: Omeprazole 20 MG CAPCR PO (08:26)
[2020-05-17] MEDS: Atenolol 50 MG TAB 100 MG PO (08:26)
[2020-05-17] MEDS: Bacitracin 30 GM TUBE TP (08:27)
[2020-05-17] MEDS: Budesonide/Formoterol 160/4.5 6 GM 60 PUFF INH IH (10:22)
--- NOTE | 2020-05-17 11:58 | W.PM.DS.N ---
Date of service: 05/17/20 Time of Service: 11:58 DS: Diagnosis Discharge Diagnosis (1) Acute bacterial bronchitis: Status: Acute (2) Dyspnea on exertion: Status: Acute (3) COPD exacerbation: Status: Acute (4) Obstructive sleep apnea: Status: Chronic Discharge Plan Disposition Patient Disposition: HOME Condition: Improving Discharge Details Reason For Visit: SOB Admit Date/Time: 05/16/20 09:53 Admit Provider: Brady Salmeron Attending Provider: Brady Salmeron Primary Care Provider: María Mendoza Hospital Course Hospital Course: this is a 69 year old female patient with history of copd, tony with sleep apnea at night, who presents to the ED with a one week history of shortness of breath, MARTIN, cough, no fever. work up consistent with copd exacerbation. her EKG and troponin where unremarkable. she was admitted to medical surgical unit for further management and evaluation. she remained afebrile and hemodynamically stable. she was weaned off oxygen and passed an ambulatory pulse oximetry test with lowest sat of 92% on room air. she will be discharged home to complete the 7 day course of doxycycline that was started on admission and will complete a steroid burst. she has been eating and drinking and is voicing no c/o. discharge plan discussed with Dr Locke who is in agreement. Home Meds and New Rx's Prescriptions: New doxycycline hyclate 100 mg Capsule 100 mg PO BID Qty: 9 RF: 0 prednisone 20 mg Tablet 60 mg PO DAILY Qty: 13 RF: 0 guaifenesin [Mucinex] 600 mg Tablet Extended Release 12hr 600 mg PO BID Qty: 14 RF: 0 Continued calcium carbonate-vitamin D3 600 mg(1,500mg) -800 unit tablet 2 tab PO DAILY Qty: 180 RF: 3 magnesium oxide 400 mg (241.3 mg magnesium) tablet 800 mg PO BID Qty: 360 RF: 3 metformin 1,000 mg tablet 1,000 mg PO BID Qty: 180 RF: 3 montelukast [Singulair] 10 mg tablet 10 mg PO DAILY Qty: 90 RF: 3 clotrimazole 1 % ointment 1 applic TP BID 14 Days Qty: 56.7 RF: 1 (DME) nebulizer and compressor device See Dose Instructions .ROUTE .MEDSUPPLY Qty: 1 RF: 0 albuterol sulfate 2.5 mg /3 mL (0.083 %) solution for nebulization 2.5 mg IH QID PRN (Reason: bronchospasm) Qty: 180 RF: 6 betamethasone dipropionate 0.05 % ointment 1 applic TP BID PRN (Reason: rash) Qty: 45 RF: 1 Lanmarcia Solostar U-100 Insulin 100 unit/mL (3 mL) insulin pen 14 unit SC HS Qty: 4 RF: 3 (DME) Blood Glucose Test Strip See Rx Instructions .ROUTE .MEDSUPPLY Qty: 200 RF: 3 cetirizine 10 mg tablet 10 mg PO DAILY Qty: 90 RF: 3 hydrochlorothiazide 50 mg tablet 50 mg PO QAM Qty: 90 RF: 3 glipizide 10 mg tablet 10 mg PO BID Qty: 180 RF: 3 Oxygen EACH NS At Night Qty: 2 RF: 0 multivitamin [Daily Multi-Vitamin] 1 EACH tablet 1 ea PO DAILY RF: 0 albuterol sulfate [ProAir HFA] 8.5 GM HFA aerosol inhaler 1 puff Inhalation Q4H PRN Qty: 2 RF: 3 (DME) lancets [Sure Comfort Lancets] 1 EACH misc 1 ea Miscellaneous DAILY Qty: 1 RF: 3 acetaminophen 500 MG tablet 1,000 mg PO TID PRNQty: 90 RF: 0 cyanocobalamin (vitamin B-12) 1,000 mcg tablet 1,000 mcg PO DAILY Qty: 90 RF: 3 Combivent Respimat 20-100 mcg/actuation mist 1 - 2 puff Inhalation .Q4-6H PRN (Reason: shortness of breath or wheezing) Qty: 3 RF: 3 atenolol 100 mg tablet 100 mg PO DAILY Qty: 30 RF: 11 (DME) pen needle, diabetic [Pen Needle] 31 gauge x 5/16 needle See Rx Instructions .ROUTE .MEDSUPPLY Qty: 100 RF: 3 rosuvastatin [Crestor] 20 mg tablet 20 mg PO DAILY Qty: 90 RF: 3 Jardiance 25 mg tablet 25 mg PO DAILY AM Qty: 90 RF: 3 valsartan 320 mg tablet 320 mg PO DAILY Qty: 90 RF: 3 budesonide-formoterol [Symbicort] 160-4.5 mcg/actuation HFA aerosol inhaler 2 puff Inhalation BID Qty: 3 RF: 3 Incruse Ellipta 62.5 mcg/actuation blister with device 62.5 mcg Inhalation DAILY Qty: 3 RF: 3 aspirin [Aspir-81] 81 MG tablet,delayed release (DR/EC) 81 mg PO DAILY Qty: 90 RF: 3 omeprazole 20 mg capsule,delayed release(DR/EC) 20 mg PO DAILY RF: 0 ferrous sulfate 325 mg (65 mg iron) tablet 650 mg PO DAILY RF: 0 Discharge Instructions Instructions: COPD (Chronic Obstructive Pulmonary Disease) (DC) Additional Instructions: take prednisone 60 mg tomorrow, then complete 40 mg daily for 4 days to complete a burst. please continue doxycycline twice daily for 4 more days to complete a 7 day course. please take a dose tonight. continue usual medications as previously directed. Referrals: María Mendoza NP [Primary Care Provider] - Activity:: Activity as Tolerated Equipment/Supplies:: No Equipment Needed Diet:: As Tolerated Discharge Orders Discharge Orders: Discharge Order (Routine); Ordered 05/17/20 Ordered By: Msisy Gregory DS: Summary Status at Discharge Functional status at discharge: independent ambulation Overall status at discharge: patient is progressing back to baseline Mental Status: mental status grossly normal Speech and Movement: speech and movement normal Mood: congruent mood Affect: normal affect Exam Const General: cooperative, healthy appearing, comfortable and no acute distress Nutritional Appearance: overweight Orientation: alert, awake and oriented x3 HENMT Head: normal to inspection, normocephalic and atraumatic Mouth: oral mucosae normal Resp Effort & Inspection: normal respiratory effort Auscultation: clear to auscultation bilaterally, no rales, no rhonchi and no wheezes Cardio Rate: regular rate Rhythm: regular rhythm GI Inspection: normal to inspection Palpation: soft Auscultation: normal bowel sounds Skin General skin exam: no rashes or lesions noted Neuro General: patient alert, patient awake and patient oriented x3 Cranial Nerves: CN's II-XI intact bilaterally Extrem General: normal to inspection and full ROM Psych Mental Status: mental status grossly normal Speech and Movement: speech and movement normal Mood: congruent mood Affect: normal affect DS: Data Vitals/I&O Vitals and I&O: Vital Signs Temperature 36.3 C L 05/17/20 08:04 Temperature Source Tympanic 05/17/20 08:04 Pulse 65 05/17/20 08:04 Pulse Rhythm Regular 05/17/20 08:15 Pulse 68 05/14/20 19:31 Respiratory Rate 20 05/17/20 08:04 Respiratory Effort 05/17/20 08:15 Respiratory Depth Shallow 05/17/20 08:15 Respiratory Pattern Normal 05/17/20 08:15 Blood Pressure 150/62 H 05/17/20 08:04 Blood Pressure Mean 82 05/14/20 20:01 Blood Pressure Position Sitting 05/14/20 14:20 Pulse Oximetry 94 05/17/20 08:33 Oxygen Delivery Method Room Air 05/17/20 08:33 Oxygen Flow Rate 0 05/17/20 08:33 Pain Level 0 05/17/20 08:04 Comment 05/17/20 08:04 Intake & Output 05/16/20 05/16/20 05/17/20 11:59 23:59 11:59 Intake Total 970 / 1450 480 / 1450 Output Total 1500 / 1800 300 / 1800 Balance -530 / -350 180 / -350 Intake: IV Oral 960 / 1440 480 / 1440 Output: Urine 1500 / 1800 300 / 1800 Other: Urine Color Yellow Yellow Yellow Urine Appearance Clear Clear Clear Urine Odor Normal Normal Comment Void x1 in the toilet. Per pt. report, void x1 in the toilet. voids independently Stool Size Moderate Moderate Stool Characteristics Soft Soft Formed Formed Brown Brown Voiding Methods Toilet Toilet Toilet [facility] Medical History (Updated 05/15/20 @ 14:46 by Mel Ambrose NP) Allergic rhinitis Anemia (02/11/14) Suspect chronic dz/bone marrow suppression s/p breast CA tx (radiation); s/p GI workup (possible AVMs?), NL B12/folate, elevated Epo, NL retic count; chronic iron supplementation Atherosclerosis of both carotid arteries (11/12/16) [place] [facility] [place]: carotid US showing 16-49% stenosis both internal carotids Recommend annual carotid US Breast CA R 2001, L2003 s/p bilateral lumpectomy. S/P XRT and Tamoxifen. Chronic GI bleeding Chronic kidney disease (CKD) Chronic obstructive airway disease (06/04/12) [facility] [place]. [place]) Moderate-very severe Last OV & PFTs 08/21/16 [facility] [place] O[place] Per pulmonolgy() Severe-very severe KONRAD 10/31/16 Compression fracture of lumbar vertebra (03/14/17) Depression (11/30/02) s/p of brother (on SSRI for short time) Diabetes mellitus (11/27/04) Dx'ed early Goal A1C <7.5% DJD (degenerative joint disease) (02/04/14) Lumbar spine--multiple level on MRI Surgery 10/2011, [facility] Dr. Smith Essential hypertension (05/16/04) H/O laminectomy L5S1 Headache Heart murmur 07/11/2016 echo: mild-moderate mitral regurgitation Hiatal hernia (02/11/14) Smaller portions Endoscopy 10/04 anemia (nothing found), [facility] [place] Hyperlipidemia (03/18/07) Pt on high intensity statin therapy Hypomagnesemia (03/04/17) Intraabdominal calcification (11/14/15) Incidental finding on CT 2 mm between bladder and uterus, no further eval required, AO Iron deficiency anemia (01/02/17) S/p colo & EGD 05/2015, then capsule endoscopy & push enteroscopy with no definitive etiology identified 11/14/2017: repeat colonoscopy (due to return of anemia) showing a colonic angioectasia, which may have been source of bleeding & anemia (though no overt bleeding found) Fe supplementation & monitor Left renal artery stenosis (08/30/16) 08[place]21/[place] [facility] [place] consult: moderate-severe stenosis; given well-controlled HTN & normal kidney function, renal artery intervention not indicated at this t 10/2016: 3 mo f/u renal duplex US showing >60% stenosis with decent blood flow to L kidney Consider stent placement if BP becomes poorly controlled or renal function begins to deteriorate Leg cramps (04/01/14) Low Mg+ --> supplementation helped, but caused diarrhea; handout on dietary Mg+ given Microalbuminuria due to type 2 diabetes mellitus Obstructive sleep apnea (03/02/14) Bipap w/ 2L 02 09/06/2019 Osteopenia (02/14/16) DEXA 02/14/16: Fem neck t-score -1.2 --> WHO FRAX major osteoporotic 13% & hip fx 1.3% risk --> does not qualify for bisphosphonates --> Ca & vit D 03/2017 L3 compression fx --> re-calc WHO FRAX major osteoporotic 21% & hip fx 2.3% risk --> now qualifies for bisphosphonate tx, started 03/2017 Probable allergic rxn to Alendronate (1st pill Wed, Hives Th and stayed thru today (but no worsening), 07/05. Agree to STOP for now. 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 Dr Agee H/O laminectomy (~10/06/12) L5S1 Huyen Frazier, Dr. Garay Oophrectomy, Right (~2007) For unknown reason Tooth Extractions Multiple Family History Sister Breast cancer Mother , 89 Alzheimer's dementia Breast cancer Father , AGE 75 Alcohol abuse Cirrhosis Sister Neoplasm uterine CA Sister Heart disease Brother Heart disease Niece Breast cancer Social History Smoking/Tobacco Use Status: Former Tobacco Use Quit Date: 09/02/00 Pack-years: 37 Tobacco: How many years used: 25 Alcohol Intake: former Details: none Drug use: Never Substance use type: does not use Adopted: No Caregiver/Support person: No Foster care: No Household members: spouse Number of Children: 4 Communication Needs: None Pets and animals: No Current gender identity: female What type of physical activity do you participate in: regular exercise Duration: < 15 minutes/day Frequency: 3-4 times per week Mell/Voodoo: Druze Seatbelt use: always Drive intox or ride w/intox motorcoach driver: No Working smoke detector in home: Yes Fire extinguisher in home: Yes Carbon monox detector in home: Yes Do you feel safe at home: Yes Do you feel safe in your relationship?: Yes
--- NOTE | 2020-05-17 14:53 | CHAPLAIN ---
I visited Nahed shortly before s he was discharged She asked me to pray with her and we did.
--- NOTE | 2020-05-17 17:20 | PDOC.CMDIS ---
- If Service Date Differs Date of service: 05/17/20 Time of Service: 17:20 LACE Index Scoring Tool - Questions: Length of Stay (in days): 2 Acuity (Admit via E.D.?): Yes Comorbidities: Diabetes w/o Complication, Chronic Pulmonary Disease E.D. Visits: 5 - Answers: Total Score: 12 Risk of Readmission: High Risk Care Management Discharge Reason for Hospitalization: SOB Discharge Plan: Nahed will return home with no additional services at this time. She will be driven home via private vehicle by her . She will follow up with her PCP and discharge plan of care. She is happy to be going home. Patient/Family Education Needs: Review discharge instructions regarding activity levels and medications, discussion of self care needs and goals of care.
== END 2020-05-17 14:12 | disposition home or self-care (01) | DRG 191 ==
LOC: ER 19:53 → MS 20:12
PROVIDERS: Nurse Practitioner Family; Physician Assistant; Admitting Provider General Practice; Emergency Provider Physician Assistant; PCP Nurse Practitioner Family; Visit Provider General Practice
DX: J44.0 Chronic obstructive pulmonary disease with (acute) lower respiratory infection (principal); I77.4 Celiac artery compression syndrome; K55.1 Chronic vascular disorders of intestine; J44.1 Chronic obstructive pulmonary disease with (acute) exacerbation; J20.8 Acute bronchitis due to other specified organisms; G47.33 Obstructive sleep apnea (adult) (pediatric); Z85.3 Personal history of malignant neoplasm of breast; N18.9 Chronic kidney disease, unspecified; I25.10 Atherosclerotic heart disease of native coronary artery without angina pectoris; F32.9 Major depressive disorder, single episode, unspecified; E11.22 Type 2 diabetes mellitus with diabetic chronic kidney disease; M47.816 Spondylosis without myelopathy or radiculopathy, lumbar region; I12.9 Hypertensive chronic kidney disease with stage 1 through stage 4 chronic kidney disease, or unspecified chronic kidney disease; I34.0 Nonrheumatic mitral (valve) insufficiency; K44.9 Diaphragmatic hernia without obstruction or gangrene; E78.5 Hyperlipidemia, unspecified; D50.9 Iron deficiency anemia, unspecified; I70.1 Atherosclerosis of renal artery
CPT/HCPCS: 36415; 71275; 80048; 80053; 82805; 90686; 93005; 93306; 94618; 94640; 96374; 99222; 99226; 99239; 99285; U0003; 36600; 71045; 83735; 83880; 84443; 84484; 85025; 85379; 93010; 94667; 99218; 99233; G0378; J2930; J3490; J7512; J7620

== ENCOUNTER 2020-05-31 07:14 | Outpatient (CLI) | payer MEDICARE, BC, SELFPAY ==
[2020-06-03 00:08] LABS: Patient Race White; SARS-CoV-2 RNA Undetected (Undetected); SARS-CoV-2 Specimen Source Nasopharynx
== END 2020-05-31 07:34 ==
PROVIDERS: PCP Nurse Practitioner Family; Visit Provider Nurse Practitioner Family
DX: J06.9 Acute upper respiratory infection, unspecified (principal)
CPT/HCPCS: U0003

== ENCOUNTER 2020-11-15 02:48 | Outpatient (CLI) | payer MEDICARE, BC, SELFPAY ==
[2020-11-15 13:03] LABS: Anion Gap 5.4 mmol/L (3-11); BUN 41 mg/dL (7-18); CO2 32.6 mmol/L (21.0-32.0); CREATININE 1.2 mg/dL (0.55-1.02); Calcium 9.3 mg/dL (8.5-10.1); Chloride 101 mmol/L (98-107); Estimated GFR 44.29 (mL/min/1.73m2); Glucose 128 mg/dL (74-106); Magnesium 2.7 mg/dL (1.8-2.4); Potassium 5.1 mmol/L (3.5-5.1); Sodium 139 mmol/L (136-145)
== END 2020-11-15 02:49 | disposition home or self-care (01) ==
LOC: LBO 02:48
PROVIDERS: PCP Nurse Practitioner Family; Visit Provider Nurse Practitioner Family
DX: E83.42 Hypomagnesemia (principal); N18.32 Chronic kidney disease, stage 3b
CPT/HCPCS: 36415; 80048; 83735

== ENCOUNTER 2020-12-05 07:22 | Emergency (ER) | payer MEDICARE, BC, SELFPAY ==
[2020-12-05 07:28] VITALS: BP 156/70; PULSE 68; RESP 18; TEMP 36.9; O2SAT 90
[2020-12-05 08:07] LABS: Bilirubin Negative (Negative); Blood Negative (Negative); Clarity Clear (Clear); Glucose 500 mg/dL (Negative); Ketones Negative (Negative); Leukocyte Esterase Trace (Negative); Nitrite Negative (Negative); Urobilinogen 0.2 EU/dL (Up TO 0.2)
--- NOTE | 2020-12-05 08:11 | ED.GENADUL_ITS ---
Discharge Plan Disposition Patient Disposition: HOME Condition: Stable Discharge Details Clinical Impression: Vaginitis and vulvovaginitis, unspecified Primary Care Provider: María Mendoza ED Provider: Dia Acosta Home Meds and New Rx's Prescriptions: Continued benzonatate 100 mg capsule 100 mg PO TID PRN (Reason: cough) Qty: 30 RF: 0 (DME) FreeStyle Basia 2 Raymond Misc See Rx Instructions .ROUTE .MEDSUPPLY Qty: 1 RF: 0 (DME) FreeStyle Basia 2 Sensor Kit See Rx Instructions .ROUTE .MEDSUPPLY Qty: 6 RF: 3 (DME) nebulizer and compressor device See Dose Instructions .ROUTE .MEDSUPPLY Qty: 1 RF: 0 albuterol sulfate 2.5 mg /3 mL (0.083 %) solution for nebulization 2.5 mg IH QID PRN (Reason: bronchospasm) Qty: 180 RF: 6 cetirizine 10 mg tablet 10 mg PO DAILY Qty: 90 RF: 3 hydrochlorothiazide 50 mg tablet 50 mg PO QAM Qty: 90 RF: 3 atenolol 100 mg tablet 100 mg PO DAILY Qty: 90 RF: 3 Glucagon Emergency Kit (human) 1 mg recon soln 1 mg subcut ONCE Qty: 1 RF: 0 Oxygen EACH NS At Night Qty: 2 RF: 0 multivitamin [Daily Multi-Vitamin] 1 EACH tablet 1 ea PO DAILY RF: 0 albuterol sulfate [ProAir HFA] 8.5 GM HFA aerosol inhaler 1 puff Inhalation Q4H PRN Qty: 2 RF: 3 (DME) lancets [Sure Comfort Lancets] 1 EACH misc 1 ea Miscellaneous DAILY Qty: 1 RF: 3 acetaminophen 500 MG tablet 1,000 mg PO TID PRNQty: 90 RF: 0 cyanocobalamin (vitamin B-12) 1,000 mcg tablet 1,000 mcg PO DAILY Qty: 90 RF: 3 Combivent Respimat 20-100 mcg/actuation mist 1 - 2 puff Inhalation .Q4-6H PRN (Reason: shortness of breath or wheezing) Qty: 3 RF: 3 Jardiance 25 mg tablet 25 mg PO DAILY AM Qty: 90 RF: 3 valsartan 320 mg tablet 320 mg PO DAILY Qty: 90 RF: 3 budesonide-formoterol [Symbicort] 160-4.5 mcg/actuation HFA aerosol inhaler 2 puff Inhalation BID Qty: 3 RF: 3 Incruse Ellipta 62.5 mcg/actuation blister with device 62.5 mcg Inhalation DAILY Qty: 3 RF: 3 omeprazole 20 mg capsule,delayed release(DR/EC) 20 mg PO DAILY Qty: 90 RF: 3 calcium carbonate-vitamin D3 600 mg(1,500mg) -800 unit tablet 2 tab PO DAILY Qty: 180 RF: 3 (DME) Blood Glucose Test Strip See Rx Instructions .ROUTE .MEDSUPPLY Qty: 400 RF: 0 metformin 500 mg tablet 500 mg PO BID MDD 1000 mg Qty: 180 RF: 3 montelukast [Singulair] 10 mg tablet 10 mg PO DAILY Qty: 90 RF: 3 (DME) pen needle, diabetic [Lite Touch Insulin Pen [place]] 31 gauge x 3/16 needle See Rx Instructions .ROUTE .MEDSUPPLY Qty: 400 RF: 3 insulin lispro [Humalog KwikPen Insulin] 100 unit/mL insulin pen 4 unit subcut QAC Qty: 15 RF: 3 rosuvastatin [Crestor] 20 mg tablet 20 mg PO DAILY Qty: 90 RF: 3 magnesium oxide 400 mg (241.3 mg magnesium) tablet See Rx Instructions PO .COMPLEX Qty: 270 RF: 3 aspirin [Aspir-81] 81 MG tablet,delayed release (DR/EC) 81 mg PO DAILY Qty: 90 RF: 3 ferrous sulfate 325 mg (65 mg iron) tablet 650 mg PO DAILY RF: 0 Discontinued clotrimazole 1 % ointment 1 applic TP BID 14 Days Qty: 56.7 RF: 1 No Action clotrimazole-betamethasone 1-0.05 % cream 1 applic topical BID 10 Days Qty: 45 RF: 0 Lantus Solostar U-100 Insulin 100 unit/mL (3 mL) insulin pen 30 unit SC BID Qty: 18 RF: 3 Discharge Instructions Instructions: Acute Rash (ED) Additional Instructions: Please return immediately to the emergency department if you develop any new or worsening symptoms, if your condition does not improve as expected, or if you become otherwise concerned. It is extremely important that you call soon as possible to make an appointment to be seen in follow-up for this visit by your primary care doctor and a budget engineer as we discussed. Referrals: María Mendoza NP [Primary Care Provider] - Lesley Blair MD [ [facility] STAFF PHYSICIAN] - Discharge Data Discharge Date/Time-TO BE ENTERED AT DEPARTURE: 12/05/20 11:04 Medical Decision Making Nahed Marquez is a 70-year-old woman with a history of diabetes, chronic kidney disease, hypertension, hyperlipidemia, COPD who presented to the emergency department with 5 days of vaginal itching and now copious clear discharge since last night. On exam Pt with erythematous and excoriated external genitalia, moderate amount of clear d/c on speculum exam. Possible external yeast infection, no evidence of vaginal yeast infection. Vag path sent and negative. Exam/hx not c/w fourniers gangrene, abscess, PID, sepsis. Given h/o DM, recurrent infections and significant amount of new discharge, discussed Pt presentation with Dr. Mohan of translator and interpreter, who recommends hold treatment for yeast at this time, start PO metronidazole and f/u outpt with translator and interpreter 24-48 hours. Pt reporting sensitivity to extensive list of ingredients common in topical preparations, including parafin wax, parabens, petrolatum. Pt has lotion at home that she was given with previous symptoms that did cause irritation. Plan to continue with this, start metronidazole, and f/u outpt. I had a lengthy discussion with Patient regarding return to emergency department precautions, home care, and importance of outpatient follow-up. Pt verbalizes understanding of the plan and is amenable. Patient discharged to home with clear plan for outpatient follow-up. All questions were answered. Disposition decision was made weighing the risks and benefits of hospitalization versus outpatient treatment, the risk for further decompensation, and the patient's wishes. Medical Records Medical records reviewed: Yes I reviewed the patient's medical records. Lab Data Lab results reviewed: Yes I reviewed the patient's lab results. Labs: 12/05/20 08:50 Vaginal Vaginitis Screen - Final Laboratory Tests Range/Units 12/05/20 12/05/20 07:42 08:50 Urine Color (Yellow) Yellow Urine Clarity (Clear) Clear Urine pH (5-8) 5.0 Ur Specific [place] (1.005-1.025) 1.020 Urine Protein (Negative) mg/dL Negative Urine Ketones (Negative) mg/dL Negative Urine Blood (Negative) Negative Urine Nitrite (Negative) Negative Urine Bilirubin (Negative) Negative Urine Urobilinogen (Up TO 0.2) EU/dL 0.2 Ur Leukocyte Esterase (Negative) Trace H Urine RBC (0-2) HPF 0-2 Urine WBC (0-5) HPF 5-10 Ur Epithelial Cells (Negative) HPF Moderate Urine Crystals (Negative) HPF Negative Urine Bacteria (Negative) HPF Few Urine Casts (Negative) LPF Negative Urine Mucus (Negative) Trace Ur Culture Indicated? No/sq. contamination Urine Glucose (Negative) mg/dL 500 H Chlamydia DNA Probe (Negative) Negative Chlamydia/GC DNA Source Not Applicable N.gonorrhoeae DNA Probe (Negative) Negative HPI General Mode of arrival: ambulatory . Date/Time Provider Initiated Documentation: 12/05/20 07:41 . Limitations to Documentation: no limitations . Information obtained by: patient, RN notes reviewed and old records reviewed . HPI Narrative: Nahed Marquez is a 70-year-old woman with a history of chronic kidney disease, diabetes, hyperlipidemia, hypertension, COPD presenting to emergency department with vaginal itching and discharge. Patient reports that approximate 5 days ago she noticed vaginal itching which has become gradually more severe. Patient reports that in addition to having severe itching yesterday, she started to develop discharge. Patient reports that discharge is clear but shaky. Patient reports that discharge is increased substantially since last night. Patient reports that she feels otherwise well and in her usual state of health. Patient denies any pain, fever, vomiting, diarrhea, other rash, numbness, weakness, shortness of breath, cough. Patient reports that she has a significant amount of burning and pain with urination since onset of itching but did not have pain with urination prior to the onset of itching. Patient reports that she was concerned that she might of had a yeast infection but has not used any stdl-xnk-dshnpal treatments as she is allergic to polyethylene glycol which is found in Monistat. Patient reports that she has not had a yeast infection in many years. Patient reports that she has not been sexually active for 20 years. She denies any trauma to the area, any new exposure. Related Data Home Medications Medication Instructions Recorded Confirmed aspirin [Aspir-81] 81 mg PO DAILY #90 03/30/13 12/05/20 multivitamin [Daily Multi-Vitamin] 1 ea PO DAILY 03/19/17 12/05/20 albuterol sulfate [ProAir HFA] 1 puff INHALATION Q4H PRN #2 04/02/17 12/05/20 inhaler lancets [Sure Comfort Lancets] #1 box 06/24/17 11/11/20 acetaminophen 1,000 mg PO TID PRN #90 tab-cap 12/16/17 12/05/20 cyanocobalamin (vitamin B-12) 1,000 mcg PO DAILY #90 tab-cap 05/07/18 12/05/20 1,000 mcg tablet albuterol sulfate 2.5 mg IH QID PRN #180 ml 08/21/18 12/05/20 nebulizer and compressor #1 each 08/21/18 11/11/20 ipratropium 20 mcg-albuterol 100 1 - 2 puff INHALATION .Q4-6H PRN 10/17/1811/11 mcg/actuation mist for inhalation #3 device empagliflozin 25 mg tablet 25 mg PO DAILY AM #90 tab-cap 02/09/20 12/05/20 valsartan 320 mg tablet 320 mg PO DAILY #90 tab-cap 02/24/20 11/11/20 budesonide-formoterol HFA 160 2 puff INHALATION BID #3 inhaler 03/11/20 12/05/20 mcg-4.5 mcg/actuation aerosol inhaler umeclidinium 62.5 mcg/actuation 62.5 mcg INHALATION DAILY #3 disk 03/11/20 12/05/20 blister powder for inhalation cetirizine 10 mg tablet 10 mg PO DAILY #90 tab-cap 03/18/20 12/05/20 hydrochlorothiazide 50 mg tablet 50 mg PO QAM #90 tab 04/25/20 12/05/20 ferrous sulfate 650 mg PO DAILY 05/14/20 12/05/20 benzonatate 100 mg capsule 100 mg PO TID PRN #30 tab-cap 06/03/20 11/11/20 atenolol 100 mg tablet 100 mg PO DAILY #90 tab-cap 06/27/20 12/05/20 omeprazole 20 mg capsule,delayed 20 mg PO DAILY #90 cap 07/15/20 12/05/20 release calcium carbonate-vitamin D3 600 2 tab PO DAILY #180 tab-cap 12/09/20 04/05/21 mg (1,500 mg)-800 unit tablet blood sugar diagnostic #400 ea 08/29/20 11/11/20 flash glucose scanning reader #1 ea 09/09/20 11/11/20 flash glucose sensor #6 ea 09/09/20 11/11/20 metformin 500 mg tablet 500 mg PO BID #180 tab MDD 1000 mg 09/23/20 12/05/20 montelukast 10 mg tablet 10 mg PO DAILY #90 tab-cap 09/23/20 12/05/20 pen needle, diabetic 31 gauge x #400 ea 10/12/20 11/11/2011/15 Humalog KwikPen Insulin 100 4 unit SUBCUT QAC #15 syrg NS 11/02/20 12/05/20 unit/mL subcutaneous glucagon (human recombinant) 1 mg 1 mg SUBCUT ONCE #1 ea 11/11/20 11/11/20 solution for injection magnesium oxide 400 mg (241.3 mg See Rx Instructions PO .COMPLEX 11/16/20 12/05/20 magnesium) tablet #270 tab-cap rosuvastatin 20 mg tablet 20 mg PO DAILY #90 tab-cap 11/16/20 12/05/20 clotrimazole-betamethasone 1 1 applic TOPICAL BID 10 Days #45 g 12/06/20 12/06/20 %-0.05 % topical cream insulin glargine 100 unit/mL (3 30 unit SC BID #18 syrg 12/12/20 12/12/20 mL) subcutaneous pen Previous Rx's Medication Instructions Recorded lancets [Sure Comfort Lancets] #1 box 06/24/17 cyanocobalamin (vitamin B-12) 1,000 mcg PO DAILY #90 tab-cap 05/07/18 1,000 mcg tablet albuterol sulfate 2.5 mg IH QID PRN #180 ml 08/21/18 nebulizer and compressor #1 each 08/21/18 ipratropium 20 mcg-albuterol 100 1 - 2 puff INHALATION .Q4-6H PRN 10/17/18 mcg/actuation mist for inhalation #3 device empagliflozin 25 mg tablet 25 mg PO DAILY AM #90 tab-cap 02/09/20 valsartan 320 mg tablet 320 mg PO DAILY #90 tab-cap 02/24/20 budesonide-formoterol HFA 160 2 puff INHALATION BID #3 inhaler 03/11/20 mcg-4.5 mcg/actuation aerosol inhaler umeclidinium 62.5 mcg/actuation 62.5 mcg INHALATION DAILY #3 disk 03/11/20 blister powder for inhalation cetirizine 10 mg tablet 10 mg PO DAILY #90 tab-cap 03/18/20 hydrochlorothiazide 50 mg tablet 50 mg PO QAM #90 tab 04/25/20 benzonatate 100 mg capsule 100 mg PO TID PRN #30 tab-cap 06/03/20 atenolol 100 mg tablet 100 mg PO DAILY #90 tab-cap 06/27/20 omeprazole 20 mg capsule,delayed 20 mg PO DAILY #90 cap 07/15/20 release calcium carbonate-vitamin D3 600 2 tab PO DAILY #180 tab-cap 08/10/20 mg (1,500 mg)-800 unit tablet blood sugar diagnostic #400 ea 08/29/20 flash glucose scanning reader #1 ea 09/09/20 flash glucose sensor #6 ea 09/09/20 metformin 500 mg tablet 500 mg PO BID #180 tab MDD 1000 mg 09/23/20 montelukast 10 mg tablet 10 mg PO DAILY #90 tab-cap 09/23/20 pen needle, diabetic 31 gauge x #400 ea 10/12/2011/15 Humalog KwikPen Insulin 100 4 unit SUBCUT QAC #15 syrg NS 11/02/20 unit/mL subcutaneous glucagon (human recombinant) 1 mg 1 mg SUBCUT ONCE #1 ea 11/11/20 solution for injection magnesium oxide 400 mg (241.3 mg See Rx Instructions PO .COMPLEX 11/16/20 magnesium) tablet #270 tab-cap rosuvastatin 20 mg tablet 20 mg PO DAILY #90 tab-cap 11/16/20 clotrimazole-betamethasone 1 1 applic TOPICAL BID 10 Days #45 g 12/06/20 %-0.05 % topical cream insulin glargine 100 unit/mL (3 30 unit SC BID #18 syrg 12/12/20 mL) subcutaneous pen Allergies Allergy/AdvReac Type Severity Reaction Status Date / Time propylene glycol Allergy Severe Rash Verified 12/13/20 09:49 petrolatum,white Allergy Intermediate rash Verified 12/13/20 09:49 [From Petroleum Jelly] adhesive tape Allergy Unknown Skin Rash Verified 12/13/20 09:49 alendronate sodium Allergy Unknown Hives Verified 12/13/20 09:49 azithromycin AdvReac Intermediate dry heaves Verified 12/13/20 09:49 and diarrhea hydrocodone bitartrate AdvReac Intermediate Nausea Verified 12/13/20 09:49 [From Vicodin] liraglutide [From Victoza] AdvReac Intermediate diarhhea Verified 12/13/20 09:49 paraben AdvReac Intermediate Skin Rash Verified 12/13/20 09:49 quaternium 15 AdvReac Intermediate generalized Verified 12/13/20 09:49 rash LANDON Inhibitors AdvReac Unknown COUGH,DYSPN Verified 12/13/20 09:49 EA oxycodone HCl [From Percocet] AdvReac Unknown NAUSEA/VOMI Verified 12/13/20 09:49 TING fragranced creams Allergy Intermediate Skin Rash Uncoded 12/13/20 09:49 parabin wax Allergy Intermediate Skin Rash Uncoded 12/13/20 09:49 diogolidinyl AdvReac Severe Skin Rash Uncoded 12/13/20 09:49 bisphenal AdvReac Intermediate Skin Rash Uncoded 12/13/20 09:49 General Stated 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: 3 Review of Systems Narrative: Constitutional: denies fevers Eyes: denies eye pain ENT: denies ear pain, dental pain, sore throat Cardiovascular: denies chest pain Respiratory: denies SOB, cough GI: denies abdominal pain, vomiting, diarrhea : denies flank pain, reports external burning with urination, clear vaginal discharge MSK: denies back pain, neck pain, arthralgias, myalgias Skin: denies rash Neuro: denies headaches, numbness, weakness [facility] Medical History Allergic rhinitis Anemia (02/11/14) Suspect chronic dz/bone marrow suppression s/p breast CA tx (radiation); s/p GI workup (possible AVMs?), NL B12/folate, elevated Epo, NL retic count; chronic iron supplementation Atherosclerosis of both carotid arteries (11/12/16) 10/2016 [facility] Vascular Consult: carotid US showing 16-49% stenosis both internal carotids Recommend annual carotid US Breast CA R 2002, L2003 s/p bilateral lumpectomy. S/P XRT and Tamoxifen. Chronic GI bleeding Chronic obstructive airway disease (06/04/12) [facility] Pulmonology (Dr. Cruz) Moderate-very severe Last OV & PFTs 08/21/16 [facility] Night-time Oxygen Per pulmonolgy() Severe-very severe KONRAD 10/31/16 CKD (chronic kidney disease) Compression fracture of lumbar vertebra (03/14/17) Depression (11/30/02) s/p of brother (on SSRI for short time) Diabetes mellitus (11/27/04) Dx'ed early Goal A1C <7.5% DJD (degenerative joint disease) (02/04/14) Lumbar spine--multiple level on MRI Surgery 10/2011, [facility] Dr. Smith Essential hypertension (05/16/04) H/O laminectomy L5S1 Headache Heart murmur 07/11/2016 echo: mild-moderate mitral regurgitation Hiatal hernia (02/11/14) Smaller portions Endoscopy 10/04 anemia (nothing found), [facility] Hyperlipidemia (03/18/07) Pt on high intensity statin therapy Hypomagnesemia (03/04/17) Intraabdominal calcification (11/14/15) Incidental finding on CT 2 mm between bladder and uterus, no further eval required, AO Iron deficiency anemia (01/02/17) S/p colo & EGD 05/2015, then capsule endoscopy & push enteroscopy with no definitive etiology identified; 11/14/2017: repeat colonoscopy (due to return of anemia) showing a colonic angioectasia, which may have been source of bleeding & anemia (no overt bleeding found). Fe supplementation & monitor Left renal artery stenosis (08/30/16) 08/21/16 [facility] Vascular Surgery consult: moderate-severe stenosis; given well- controlled HTN & normal kidney function, renal artery intervention not indicated at this t 10/2016: 3 mo f/u renal duplex US showing >60% stenosis with decent blood flow to L kidney Consider stent placement if BP becomes poorly controlled or renal function begins to deteriorate Leg cramps (04/01/14) Low Mg+ --> supplementation helped, but caused diarrhea; handout on dietary Mg+ given Microalbuminuria due to type 2 diabetes mellitus Obstructive sleep apnea (03/02/14) Bipap w/ 2L 02 09/06/2019 Osteopenia (02/14/16) DEXA 02/14/16: Fem neck t-score -1.2 --> WHO FRAX major osteoporotic 13% & hip fx 1.3% risk --> does not qualify for bisphosphonates --> Ca & vit D 03/2017 L3 compression fx --> re-calc WHO FRAX major osteoporotic 21% & hip fx 2.3% risk --> now qualifies for bisphosphonate tx, started 03/2017 Probable allergic rxn to Alendronate (1st pill Wed, Th and stayed thru today (but no worsening), 07/05. Agree to STOP for now. 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 Dr Agee H/O laminectomy (~10/06/12) L5S1 Dr. Jarrod Ballard Oophrectomy, Right (~2007) For unknown reason Tooth Extractions Multiple Family History Sister Breast cancer Mother , 89 Alzheimer's dementia Breast cancer Father , AGE 75 Alcohol abuse Cirrhosis Sister Neoplasm uterine CA Sister Heart disease Brother Heart disease Niece Breast cancer Social History Smoking/Tobacco Use Status: Former Tobacco Use Quit Date: 09/02/00 Pack-years: 37 Tobacco: How many years used: 25 Smoking risk assessment performed?: Yes Alcohol Intake: former Details: none Drug use: Never Substance use type: does not use Adopted: No Caregiver/Support person: No Foster care: No Household members: spouse Number of Children: 4 Communication Needs: None Pets and animals: No Current gender identity: female What type of physical activity do you participate in: regular exercise Duration: < 15 minutes/day Frequency: 3-4 times per week Mell/Latter-Day: Faith Seatbelt use: always Drive intox or ride w/intox dinkey driver: No Working smoke detector in home: Yes Fire extinguisher in home: Yes Carbon monox detector in home: Yes Do you feel safe at home: Yes Do you feel safe in your relationship?: Yes Exam Narrative Exam Narrative: Constitutional: well and [id number], pleasant, conversing normally HENT: head atraumatic/normocephalic/normal inspection, mucous membranes moist Eyes: conjunctiva normal, sclera normal, pupils 3mm b/l Neck: no stridor, normal ROM, trachea midline Chest: normal inspection Resp: normal work of breathing, speaking in full sentences Cardio: normal rate, normal rhythm GI: abdomen soft, non-tender, non-distended : external genitalia erythematous and excoriated. speculum exam reveals moderate amount of thin clear discharge, otherwise normal cervix Back: normal inspection, no rash Skin: warm, dry, normal color, no rash Neuro: alert, not altered, grossly non-focal, normal tone Ext:moving all extremities equally Psych: normal mood, normal affect, normal behavior Course Vital Signs Vital signs: Vital Signs Temperature 36.9 C 12/05/20 07:28 Pulse 68 12/05/20 07:28 Respiratory Rate 18 12/05/20 07:28 Blood Pressure 156/70 H 12/05/20 07:28 Pulse Oximetry 90 L 12/05/20 07:28 Temperature 36.9 C 12/05/20 07:28 Temperature Source Oral 12/05/20 07:28 Pulse 68 12/05/20 07:28 Respiratory Rate 18 12/05/20 07:28 Respiratory Effort Non-Labored 12/05/20 07:33 Blood Pressure 156/70 H 12/05/20 07:28 Blood Pressure Position Sitting 12/05/20 07:28 Pulse Oximetry 90 L 12/05/20 07:28 Oxygen Delivery Method Room Air 12/05/20 07:28 Oxygen Flow Rate 0 12/05/20 07:28 Pain Level 9 12/05/20 07:33
[2020-12-05 08:21] LABS: Epithelial Cells Moderate HPF (Negative); RBC 0-2 HPF (0-2)
[2020-12-05 08:22] LABS: Bacteria Few HPF (Negative); C & S Indicated? No/Sq. Contamination; Casts Negative LPF (Negative); Crystals Negative HPF (Negative); Mucus Trace (Negative)
[2020-12-05] MEDS: Lidocaine 2% Viscous 15 ML CUP (09:01)
[2020-12-05 10:26] VITALS: BP 123/68; PULSE 68; RESP 20; O2SAT 88
[2020-12-05] MEDS: metroNIDAZOLE 500 MG TAB PO (10:41)
[2020-12-05] MEDS: Lidocaine 2% Jelly 6 ML SYR TP (10:48)
--- NOTE | 2020-12-05 11:15 | NUR.NOTE ---
Nursing Note: [facility] for vaginal yeast? [phone],MG
[2020-12-07 09:57] LABS: Chlamydia Result Negative (Negative); GC Result Negative (Negative)
== END 2020-12-05 11:04 | disposition home or self-care (01) ==
PROVIDERS: Emergency Provider Student in an Organized Health Care Education/Training Program; PCP Nurse Practitioner Family
DX: N76.0 Acute vaginitis (principal)
CPT/HCPCS: 87491; 87591; 99283; 81003; 81015; 87480; 87510; 87660

== ENCOUNTER 2021-01-03 18:30 | Outpatient (REF) | payer MEDICARE, BC, SELFPAY ==
[2021-01-03 20:50] LABS: Abs Immature Grans 0.06 10^3/uL (0.0-0.06); Absolute Basophil Count 0.03 10^3/uL (0.0-0.2); Absolute Eosinophil Count 0.32 10^3/uL (0.0-0.7); Absolute Lymphocyte Count 0.81 10^3/uL (1.2-3.4); Absolute Neutrophil Count 1.99 10^3/uL (1.2-6.7); Basophils % 0.8; Eosinophils % 8.6; HCT 40.3 % (36.0-46.0); HGB 12.7 g/dL (11.2-15.7); Immature Grans % 1.6; Lymphocytes % 21.8; MCH 29.6 pg (27.0-33.0); MCHC 31.5 % (32.0-36.0); MCV 93.9 fL (80-95); MPV 8.8 fL (8.0-11.0); Monocytes % 13.5; Neutrophils % 53.7; Nucleated RBC 0 %; Platelet Count 298 10^3/uL (130-400); RBC 4.29 10^6/uL (3.93-5.22); RDW-SD 47.8 fL; WBC 3.71 10^3/uL (4.4-10.8)
[2021-01-03 21:01] LABS: Anion Gap 5.4 mmol/L (3-11); BUN 30 mg/dL (7-18); CO2 32.6 mmol/L (21.0-32.0); CREATININE 1.3 mg/dL (0.55-1.02); Chloride 101 mmol/L (98-107); Estimated GFR 40.38 (mL/min/1.73m2); Glucose 274 mg/dL (74-106); NT-proBNP 276 pg/mL (<300); Potassium 4.7 mmol/L (3.5-5.1); Sodium 139 mmol/L (136-145)
[2021-01-05 11:50] LABS: COVID-19 RT-PCR UVMMC Result Negative (Negative)
== END 2021-01-03 18:31 | disposition home or self-care (01) ==
LOC: LBN 18:30
PROVIDERS: PCP Nurse Practitioner Family; Visit Provider Family Medicine
DX: R06.02 Shortness of breath (principal); J06.9 Acute upper respiratory infection, unspecified; Z20.822 Contact with and (suspected) exposure to COVID-19
CPT/HCPCS: 80048; U0003; U0005; 83880; 85025

== ENCOUNTER 2021-01-04 22:12 | Outpatient (CLI) | payer MEDICARE, BC, SELFPAY ==
--- NOTE | 2021-01-04 | DI.RAD_ITS ---
Exam(s) XR CHEST 2V PA LATERAL EXAM: XR CHEST 2V PA LATERAL CLINICAL HISTORY: ACUTE SOB WITH BASILAR RALES, R06.02, H/O COPD TECHNIQUE: 2D digital imaging was performed. COMPARISON: CR XR CHEST 2V PA LATERAL from 10/20/[address] CHEST PE CTA from 05/14/2020 FINDINGS: MEDIASTINUM: Normal. HEART: Normal. PULMONARY VASCULATURE: Normal. Atherosclerosis. LUNGS: No focal consolidating infiltrates. The lungs are hyperinflated with flattened diaphragms con sistent with underlying COPD. PLEURAL SPACE: No pleural effusion or pneumothorax. BONE:Within normal limits for the patient's age. OTHER FINDINGS:Normal. IMPRESSION: 1. No acute pulmonary findings. 2. COPD. DATA REPOSITORY: RADIATION DOSE DELIVERED:
== END 2021-01-04 22:32 ==
PROVIDERS: PCP Nurse Practitioner Family; Visit Provider Family Medicine
DX: R06.02 Shortness of breath (principal); J44.9 Chronic obstructive pulmonary disease, unspecified; R09.89 Other specified symptoms and signs involving the circulatory and respiratory systems
CPT/HCPCS: 71046

== ENCOUNTER 2021-01-26 14:06 | Inpatient (IN) | payer MEDICARE, BC, SELFPAY ==
[2021-01-26] VITALS (51 sets, daily range): BP systolic 108–185; BP diastolic 49–78; PULSE 76–117; RESP 16–27; TEMP 35.6–36.8; O2SAT 86–98
--- NOTE | 2021-01-26 14:00 | DI.RAD_ITS ---
Exam(s) XR CHEST 2V PA LATERAL EXAM: XR CHEST 2V PA LATERAL CLINICAL HISTORY: Chest Pain, Hx COPD. TECHNIQUE: 2D digital imaging was performed. COMPARISON: CR XR CHEST 2V PA LATERAL from 01/04/2021 FINDINGS: Heart size is normal. The mediastinum is not widened. Lungs are clear. No infiltrates nor pleural effusions. There is slightly increased markings in the left lower lobe but these appear to be vascular more so t edward infiltrate. These are also unchanged from the prior study IMPRESSION: No acute pulmonary findings. No significant change from 01/05/2020 DATA REPOSITORY: RADIATION DOSE DELIVERED:
--- NOTE | 2021-01-26 14:00 | RT.EKG_ITS ---
APPROVED REPORT Exam: Resting ECG Reason for Exam: Chest pain Patient Location: E HR:98 bpm ECG Measurements Heart Rate 98 AXIS IN 158 P 79 QRSd 74 QRS 49 QT 353 T 95 QTc 451 Conclusion Sinus rhythm.. Probable left atrial enlargement. AnteriorQ waves Lateral T wave inversioins/Depressions -new vs 05/14/20
--- NOTE | 2021-01-26 14:41 | W.ED.GENAD ---
Discharge Plan Disposition Patient Disposition: [facility] INPATIENT Condition: Serious Discharge Details Clinical Impression: Non-ST elevation (NSTEMI) myocardial infarction Admit Date/Time: 01/26/21 17:58 Admit Provider: Jonny Frost Attending Provider: Jonny Frost Primary Care Provider: María Mendoza ED Provider: Manuel Del Valle Discharge Data Discharge Date/Time-TO BE ENTERED AT DEPARTURE: 01/26/21 21:06 Medical Decision Making <Shahnaz Fraire - Last Filed: 01/27/21 08:22> 70-year-old female presents to the ER with chief complaint of intermittent midsternal chest pressure, Like someone is sitting there and pain for the last 1-1/2 to 2 weeks. Patient was sent over here by primary care provider. She reports chest pain previously at rest. She denies having any chest pressure or discomfort in her chest upon initial exam. She does take 181 mg aspirin daily. She denies any nausea vomiting diaphoresis. She denies that this pain has woken her up out of sleep she denies any radiation of the pain. She does have a past medical history of COPD, hyperlipidemia, hypertension, diabetes, iron deficiency anemia, obstructive sleep apnea, CKD. She is a former smoker. EKG was reviewed by Roxana Whittington DO ER attending, please see her official report and read, EKG changes noted ST depression in leads II, III, V4 V5 V6. Patient was hypoxic at 89% RA during RN initial Assessment with a Pain rating of 9/10. Patient states that the chest pain was alleviated completely upon initial exam with oxygen. 1518: Patient reevaluation continues to be chest pain-free at this time. Patient up to the bedside commode. 1537: Call made to [facility] transfer center for possible transfer and cardiology consult they are currently listing beds for tomorrow., 1538: Call also made to [facility] transfer center for cardiology consult. They state they are also tight on beds. 1600: Spoke with Dr. Gordy POOL with cardiology at [facility] discussed patient case and details with him he is excepting patient as a non-urgent transfer pending worsening troponin, worsening patient condition or EKG changes. They are listing for tomorrow. 1605: Spoke with Tete nurse practitioner with cardiology at [facility] discussed patient case in detail she does patient for transfer they are listing for tomorrow at this time. Dr. Thompson would be the accepting physician at [facility], and she would be in ICCU status. She recommends nitro glycerin as needed chest pain, stop the atenolol and give metoprolol 12.5 mg every 6 hours as tolerated. She is in agreement with the Plavix and heparin drip at this time. After discussing the plan of care for transfer and or admission with patient she would prefer to be transferred to [facility] but is willing to go to whatever facility is best. 1610: Spoke with Dr. Laureano who is on for hospitalist regarding patient he would request to wait for the second troponin, and EKG before Accepting for admission. 1624: Patient is now complaining of chest pain 7 or 8 out of 10. Nitropaste ordered metoprolol 12.5 mg as discussed with space officer. At this time care is to be handed off to oncoming provider JONO Pedro pending serial troponin which is due at approximately 1700. I did discuss with him if worsening patient condition and/or EKG changes patient should be transferred more urgently versus possible admission here to the ICU. I spent greater than 35 minutes addressing this patient's acute life threatening illness. This time was spent engaged in actions directly related to the patient's care. Failure ti initiate these interventions would have likely resulted in clinically significant or life threatening deterioration in the patients condition. <JONO Mendoza - Last Filed: 01/26/21 19:16> Patient CARE signed out to me by my colleague MARU Fraire at shift change. Please see her initial HPI and examination. In short patient with chest pain and pressure for a little over a week, today has elevated troponin, diagnosed with NSTEMI. Has already received aspirin, heparin, Plavix, metoprolol. Cardiology both at [facility] and [facility] contacted, excepting physicians at both but currently no beds. Recommendation was to hold here in our hospital and transfer likely to occur tomorrow. Our hospitalist team was contacted and we are awaiting repeat troponin and EKG. Patient subsequently developed chest pressure, given nitro paste and once again is asymptomatic. Upon my evaluation patient is resting comfortably, is currently asymptomatic, and hemodynamically stable. Awaiting repeat troponin and EKG Repeat EKG performed at 1713, please see official report by Dr. Silva. Sinus tachycardia, ventricular rate of 100. Nonspecific T wave abnormalities. No dynamic changes when compared to previous EKG Patient remains pain-free with Nitropaste. Repeat troponin with slight trend upward of 0.29. Again patient remains asymptomatic. We will place a call to our hospitalist team to discuss admission. Case discussed with Dr. Frost, he is agreeable to admission, I will write holding orders. Transfer from the ER to the ICU was delayed because at the time of admission ICU was full, a discharge needed to occur before the patient could be transferred to the ICU. Medical Records Medical records reviewed: Yes I reviewed the patient's medical records. HPI <Shahnazjud Fraire - Last Filed: 01/27/21 08:22> General Mode of arrival: ambulatory. Date/Time Provider Initiated Documentation: 01/26/21 14:07. Limitations to Documentation: no limitations. Information obtained by: patient. HPI Narrative: 70-year-old female presents to the ER with chief complaint of intermittent midsternal chest pressure, Like someone is sitting there and pain for the last 1-1/2 to 2 weeks. Patient was sent over here by primary care provider. She reports chest pain previously at rest. She denies having any chest pressure or discomfort in her chest upon initial exam. She does take 181 mg aspirin daily. She denies any nausea vomiting diaphoresis. She denies that this pain has woken her up out of sleep she denies any radiation of the pain. She does have a past medical history of COPD, hyperlipidemia, hypertension, diabetes, iron deficiency anemia, obstructive sleep apnea, CKD. She is a former smoker. Related Data Home Medications Medication Instructions Recorded Confirmed aspirin [Aspir-81] 81 mg PO DAILY #90 03/30/13 01/26/21 multivitamin [Daily Multi-Vitamin] 1 ea PO DAILY 03/19/17 01/26/21 albuterol sulfate [ProAir HFA] 1 puff INHALATION Q4H PRN #2 04/02/17 01/12/21 inhaler lancets [Sure Comfort Lancets] #1 box 06/24/17 01/12/21 acetaminophen 1,000 mg PO TID PRN #90 tab-cap 12/16/17 01/12/21 cyanocobalamin (vitamin B-12) 1,000 mcg PO DAILY #90 tab-cap 05/07/18 01/12/21 1,000 mcg tablet nebulizer and compressor #1 each 08/21/18 01/12/21 ipratropium 20 mcg-albuterol 100 1 - 2 puff INHALATION .Q4-6H PRN 10/17/18 01/26/21 mcg/actuation mist for inhalation #3 device valsartan 320 mg tablet 320 mg PO DAILY #90 tab-cap 02/24/20 01/12/21 budesonide-formoterol HFA 160 2 puff INHALATION BID #3 inhaler 03/11/20 01/12/21 mcg-4.5 mcg/actuation aerosol inhaler umeclidinium 62.5 mcg/actuation 62.5 mcg INHALATION DAILY #3 disk 03/11/20 01/26/21 blister powder for inhalation cetirizine 10 mg tablet 10 mg PO DAILY #90 tab-cap 03/18/20 01/26/21 hydrochlorothiazide 50 mg tablet 50 mg PO QAM #90 tab 04/25/20 01/26/21 ferrous sulfate 650 mg PO TID 05/14/20 01/26/21 benzonatate 100 mg capsule 100 mg PO TID PRN #30 tab-cap 06/03/20 01/12/21 atenolol 100 mg tablet 100 mg PO DAILY #90 tab-cap 06/27/20 01/26/21 omeprazole 20 mg capsule,delayed 20 mg PO DAILY #90 cap 07/15/20 01/26/21 release calcium carbonate-vitamin D3 600 2 tab PO DAILY #180 tab-cap 08/10/20 01/26/21 mg (1,500 mg)-800 unit tablet blood sugar diagnostic #400 ea 08/29/20 01/12/21 flash glucose scanning reader #1 ea 09/09/20 01/12/21 flash glucose sensor #6 ea 09/09/20 01/12/21 metformin 500 mg tablet 500 mg PO BID #180 tab MDD 1000 mg 09/23/20 01/26/21 montelukast 10 mg tablet 10 mg PO DAILY #90 tab-cap 09/23/20 01/26/21 pen needle, diabetic 31 gauge x #400 ea 10/12/20 01/12/2111/15 Humalog KwikPen Insulin 100 4 unit SUBCUT QAC #15 syrg NS 11/02/20 01/26/21 unit/mL subcutaneous glucagon (human recombinant) 1 mg 1 mg SUBCUT ONCE #1 ea 11/11/20 01/12/21 solution for injection magnesium oxide 400 mg (241.3 mg See Rx Instructions PO .COMPLEX 11/16/20 01/26/21 magnesium) tablet #270 tab-cap rosuvastatin 20 mg tablet 20 mg PO DAILY #90 tab-cap 11/16/20 01/26/21 insulin glargine 100 unit/mL (3 30 unit SC BID #18 syrg 12/12/20 01/26/21 mL) subcutaneous pen empagliflozin 25 mg tablet 25 mg PO DAILY AM #90 tab-cap 01/02/21 01/26/21 albuterol sulfate 2.5 mg IH QID PRN #180 ml 01/04/21 01/26/21 Previous Rx's Medication Instructions Recorded lancets [Sure Comfort Lancets] #1 box 06/24/17 cyanocobalamin (vitamin B-12) 1,000 mcg PO DAILY #90 tab-cap 05/07/18 1,000 mcg tablet nebulizer and compressor #1 each 08/21/18 ipratropium 20 mcg-albuterol 100 1 - 2 puff INHALATION .Q4-6H PRN 10/17/18 mcg/actuation mist for inhalation #3 device valsartan 320 mg tablet 320 mg PO DAILY #90 tab-cap 02/24/20 budesonide-formoterol HFA 160 2 puff INHALATION BID #3 inhaler 03/11/20 mcg-4.5 mcg/actuation aerosol inhaler umeclidinium 62.5 mcg/actuation 62.5 mcg INHALATION DAILY #3 disk 03/11/20 blister powder for inhalation cetirizine 10 mg tablet 10 mg PO DAILY #90 tab-cap 03/18/20 hydrochlorothiazide 50 mg tablet 50 mg PO QAM #90 tab 04/25/20 benzonatate 100 mg capsule 100 mg PO TID PRN #30 tab-cap 06/03/20 atenolol 100 mg tablet 100 mg PO DAILY #90 tab-cap 06/27/20 omeprazole 20 mg capsule,delayed 20 mg PO DAILY #90 cap 07/15/20 release calcium carbonate-vitamin D3 600 2 tab PO DAILY #180 tab-cap 08/10/20 mg (1,500 mg)-800 unit tablet blood sugar diagnostic #400 ea 08/29/20 flash glucose scanning reader #1 ea 09/09/20 flash glucose sensor #6 ea 09/09/20 metformin 500 mg tablet 500 mg PO BID #180 tab MDD 1000 mg 09/23/20 montelukast 10 mg tablet 10 mg PO DAILY #90 tab-cap 09/23/20 pen needle, diabetic 31 gauge x #400 ea 10/12/2011/15 Humalog KwikPen Insulin 100 4 unit SUBCUT QAC #15 syrg NS 11/02/20 unit/mL subcutaneous glucagon (human recombinant) 1 mg 1 mg SUBCUT ONCE #1 ea 11/11/20 solution for injection magnesium oxide 400 mg (241.3 mg See Rx Instructions PO .COMPLEX 11/16/20 magnesium) tablet #270 tab-cap rosuvastatin 20 mg tablet 20 mg PO DAILY #90 tab-cap 11/16/20 insulin glargine 100 unit/mL (3 30 unit SC BID #18 syrg 12/12/20 mL) subcutaneous pen empagliflozin 25 mg tablet 25 mg PO DAILY AM #90 tab-cap 01/02/21 albuterol sulfate 2.5 mg IH QID PRN #180 ml 01/04/21 Allergies Allergy/AdvReac Type Severity Reaction Status Date / Time propylene glycol Allergy Severe Rash Verified 01/26/21 14:17 petrolatum,white Allergy Intermediate rash Verified 01/26/21 14:17 [From Petroleum Jelly] adhesive tape Allergy Unknown Skin Rash Verified 01/26/21 14:17 alendronate sodium Allergy Unknown Hives Verified 01/26/21 14:17 azithromycin AdvReac Intermediate dry heaves Verified 01/26/21 14:17 and diarrhea hydrocodone bitartrate AdvReac Intermediate Nausea Verified 01/26/21 14:17 [From Vicodin] liraglutide [From Victoza] AdvReac Intermediate diarhhea Verified 01/26/21 14:17 paraben AdvReac Intermediate Skin Rash Verified 01/26/21 14:17 quaternium 15 AdvReac Intermediate generalized Verified 01/26/21 14:17 rash LANDON Inhibitors AdvReac Unknown COUGH,DYSPN Verified 01/26/21 14:17 EA oxycodone HCl [From Percocet] AdvReac Unknown NAUSEA/VOMI Verified 01/26/21 14:17 TING fragranced creams Allergy Intermediate Skin Rash Uncoded 01/26/21 14:17 parabin wax Allergy Intermediate Skin Rash Uncoded 01/26/21 14:17 diogolidinyl AdvReac Severe Skin Rash Uncoded 01/26/21 14:17 bisphenal AdvReac Intermediate Skin Rash Uncoded 01/26/21 14:17 General Stated Complaint: Chest Pain BRUNA: 3 Review of Systems <Shahnaz Fraire - Last Filed: 01/27/21 08:22> Narrative: Constitutional: Negative for weight loss, alert and oriented, well groomed, well-nourished body habitus, appears comfortable. HEENT: Denies trauma, headaches, blurry vision, nasal discharge, sore throat, trouble swallowing. Chest: Denies palpitations, irregular rhythm, positive chest pressure, chest heaviness, describes as sitting on chest. Respiratory: Denies Shortness of breath, cough, hemoptysis. GI: Denies abdominal pain, nausea, vomiting, diarrhea, constipation. : Denies dysuria, hematuria, flank pain, rectal bleeding. Neuro: Denies dizziness, blurry vision, weakness, syncope, headache or facial numbness. Hematologic: Denies easy bruising, intolerance to heat or cold, hair loss. All systems reviewed & are unremarkable except as noted in HPI and below Cardiovascular Cardiovascular: Reports other PFSH <Shahnaz Fraire Last Filed: 01/27/21 08:22> Medical History Allergic rhinitis Anemia (02/11/14) Suspect chronic dz/bone marrow suppression s/p breast CA tx (radiation); s/p GI workup (possible AVMs?), NL B12/folate, elevated Epo, NL retic count; chronic iron supplementation Atherosclerosis of both carotid arteries (11/12/16) 10/2016 [facility] Vascular Consult: carotid US showing 16-49% stenosis both internal carotids Recommend annual carotid US Breast CA R 2001, L2003 s/p bilateral lumpectomy. S/P XRT and Tamoxifen. Chronic GI bleeding Chronic obstructive airway disease (06/04/12) [facility] Pulmonology (Dr. Cruz) Moderate-very severe Last OV & PFTs 08/21/16 [facility] Night-time Oxygen Per pulmonolgy() Severe-very severe KONRAD 10/31/16 CKD (chronic kidney disease) Compression fracture of lumbar vertebra (03/14/17) Depression (11/30/02) s/p of brother (on SSRI for short time) Diabetes mellitus (11/27/04) Dx'ed early Goal A1C <7.5% DJD (degenerative joint disease) (02/04/14) Lumbar spine--multiple level on MRI Surgery 10/2011, [facility] Dr. Smith Essential hypertension (05/16/04) H/O laminectomy L5S1 Headache Heart murmur 07/11/2016 echo: mild-moderate mitral regurgitation Hiatal hernia (02/11/14) Smaller portions Endoscopy 10/04 anemia (nothing found), [facility] Hyperlipidemia (03/18/07) Pt on high intensity statin therapy Hypomagnesemia (03/04/17) Intraabdominal calcification (11/14/15) Incidental finding on CT 2 mm between bladder and uterus, no further eval required, AOC Iron deficiency anemia (01/02/17) S/p colo & EGD 05/2015, then capsule endoscopy & push enteroscopy with no definitive etiology identified; 11/14/2017: repeat colonoscopy (due to return of anemia) showing a colonic angioectasia, which may have been source of bleeding & anemia (no overt bleeding found). Fe supplementation & monitor Left renal artery stenosis (08/30/16) 08/21/16 [facility] Vascular Surgery consult: moderate-severe stenosis; given well-controlled HTN & normal kidney function, renal artery intervention not indicated at this t 10/2016: 3 mo f/u renal duplex US showing >60% stenosis with decent blood flow to L kidney Consider stent placement if BP becomes poorly controlled or renal function begins to deteriorate Leg cramps (04/01/14) Low Mg+ --> supplementation helped, but caused diarrhea; handout on dietary Mg+ given Microalbuminuria due to type 2 diabetes mellitus Obstructive sleep apnea (03/02/14) Bipap w/ 2L 02 09/06/2019 Osteopenia (02/14/16) DEXA 02/14/16: Fem neck t-score -1.2 --> WHO FRAX major osteoporotic 13% & hip fx 1.3% risk --> does not qualify for bisphosphonates --> Ca & vit D 03/2017 L3 compression fx --> re-calc WHO FRAX major osteoporotic 21% & hip fx 2.3% risk --> now qualifies for bisphosphonate tx, started 03/2017 Probable allergic rxn to Alendronate (1st pill Wed, Hives Th and stayed thru today (but no worsening), 07/05. Agree to STOP for now. 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 Dr Agee H/O laminectomy (~10/06/12) L5S1 Dr. Jarrod Ballard Oophrectomy, Right (~2007) For unknown reason Tooth Extractions Multiple Family History Sister Breast cancer Mother , 89 Alzheimer's dementia Breast cancer Father , AGE 75 Alcohol abuse Cirrhosis Sister Neoplasm uterine CA Sister Heart disease Brother Heart disease Niece Breast cancer Social History (Updated 01/26/21 @ 21:33 by Jonny Frost) Smoking/Tobacco Use Status: Former Tobacco Use Quit Date: 09/02/00 Pack-years: 37 Tobacco: How many years used: 25 Smoking risk assessment performed?: Yes Alcohol Intake: former Details: none Drug use: Never Substance use type: does not use Adopted: No Caregiver/Support person: No Foster care: No Household members: spouse Number of Children: 4 Communication Needs: None Pets and animals: No Current gender identity: female What type of physical activity do you participate in: regular exercise Duration: < 15 minutes/day Frequency: 3-4 times per week Mell/Yarsani: Adventism Seatbelt use: always Drive intox or ride w/intox regional o[employer] company driver: No Working smoke detector in home: Yes Fire extinguisher in home: Yes Carbon monox detector in home: Yes Do you feel safe at home: Yes Do you feel safe in your relationship?: Yes Additional Social history: Lives with in [place]. 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 She has 11 grandkids who all live close. Exam <Shahnaz Fraire - Last Filed: 01/27/21 08:22> Narrative Exam Narrative: Constitutional: Alert and oriented x3. Appears stated age. Normal body habitus. Head: Normocephalic, no trauma. Eyes: Pupils PERRLA, Red reflex noted, EOM's intact. Eyelids symmetrical without lesions, discharge, or swelling. ENT: Bilateral TM's WNL, External ear normal to inspection, no mastoid TTP, swelling, or erythema, Nasal turbinates WNL, no nasal discharge. Normal dentition, Posterior pharynx WNL, no exudate. Chest: Tachycardic at 10 1-109, normal S1, S2, distal pulses intact. Resp: Lungs clear to auscultation bilaterally, no wheezes, rales, or rhonchi. Musculoskeletal: Normal gait, 5/5 strength to all four extremities. Skin: No suspicious rashes or lesions. Capillary refill less than 2 sec. Neurologic: Cranial nerves II-XII intact. Alert and oriented x 3. DTR's intact. Hematologic/Lymphatic: No ecchymosis, no lymphadenopathy. Course <Shahnaz Fraire - Last Filed: 01/27/21 08:22> Vital Signs Vital signs: Vital Signs Temperature 36.8 C 01/26/21 14:11 Pulse 106 H 01/26/21 14:11 Respiratory Rate 18 01/26/21 14:11 Blood Pressure 180/73 H 01/26/21 14:11 Pulse Oximetry 90 L 01/26/21 14:11 Temperature 36.8 C 01/26/21 14:11 Temperature Source Temporal Artery Scan 01/26/21 14:11 Pulse 106 H 01/26/21 14:11 Respiratory Rate 18 01/26/21 14:17 Respiratory Effort 01/26/21 14:17 Respiratory Depth Normal 01/26/21 14:17 Respiratory Pattern Normal 01/26/21 14:17 Blood Pressure 180/73 H 01/26/21 14:11 Blood Pressure Position Sitting 01/26/21 14:11 Pulse Oximetry 90 L 01/26/21 14:11 Oxygen Delivery Method Room Air 01/26/21 14:11 Oxygen Flow Rate 0 01/26/21 14:11 Pain Level 9 01/26/21 14:11 <JONO Mendoza - Last Filed: 01/26/21 19:16> Critical Care Time Critical Care Time: Yes Total Critical Care Time: 40 Attestation: Upon my evaluation, this patient had a high probability of clinically significant, life-threatening deterioration due to their current medical conditions, which required my direct attention, intervention, and personal management. I have personally provided greater than 30 minutes of critical care time exclusive of the time spend on separately billable procedures. Time includes obtaining a history, examining the patient, pulse oximetry, review of laboratory data, radiology results, discussion with consultants, arranging urgent treatment with development of a management plan, evaluation of patient's response to treatment, and monitoring for potential decompensation. Interventions were performed as documented above. Sign Out <Shahnaz Fraire - Last Filed: 01/27/21 08:22> Sign Out Data: Sign Out Comment: Pending Serial Troponin at 1700, Repeat EKG, Transfer to [facility] (patient preference), accepting Donna-listing for tomorrow versus, [facility] accepting Dr. Kaminski also listing for tomorrow, versus Admission here. Last updated by Shahnaz Fraire at 01/26/21 16:48
[2021-01-26 14:46] LABS: Abs Immature Grans 0.06 10^3/uL (0.0-0.06); Absolute Basophil Count 0.02 10^3/uL (0.0-0.2); Absolute Eosinophil Count 0.17 10^3/uL (0.0-0.7); Absolute Lymphocyte Count 1.05 10^3/uL (1.2-3.4); Absolute Monocyte Count 0.45 10^3/uL (0.1-0.8); Absolute Neutrophil Count 2.28 10^3/uL (1.2-6.7); Basophils % 0.5; Eosinophils % 4.2; HCT 40.2 % (36.0-46.0); HGB 12.8 g/dL (11.2-15.7); Immature Grans % 1.5; Lymphocytes % 26.1; MCH 30.5 pg (27.0-33.0); MCHC 31.8 % (32.0-36.0); MCV 95.7 fL (80-95); MPV 8.6 fL (8.0-11.0); Monocytes % 11.2; Neutrophils % 56.5; Nucleated RBC 0 %; Platelet Count 210 10^3/uL (130-400); RDW 15.6 % (11.7-14.6); RDW-SD 53.6 fL; WBC 4.03 10^3/uL (4.4-10.8)
[2021-01-26] MEDS: Aspirin 81 MG CHEW 243 MG CH (14:54)
--- NOTE | 2021-01-26 15:15 | RT.EKG_ITS ---
APPROVED REPORT Exam: Resting ECG Reason for Exam: CAD Patient Location: E HR:97 bpm ECG Measurements Heart Rate 97 AXIS PA 162 P 77 QRSd 72 QRS 58 QT 349 T 138 QTc 443 Conclusion Sinus rhythm...normal P axis, V-rate 60- 99 Probable left atrial enlargement...P >50mS, <-0.10mV V1 Probable anterior infarct, age indeterminate...Q >35mS, T neg, V2-V5 Abnormal T, consider ischemia, lateral leads...T <-0.20mV, I aVL V5 V6 2mm ST depressions/T wave inversions in V4-6. 1mm ST depressions/T wave inversions in I and aVL. Reciprocal change in aVR
[2021-01-26 15:19] LABS: ALT 32 U/L (14-59); AST 22 U/L (15-37); Albumin 3.7 g/dL (3.4-5.0); Alkaline Phosphatase 53 U/L (46-116); Anion Gap 8.3 mmol/L (3-11); BUN 34 mg/dL (7-18); Bilirubin, Total 0.3 mg/dL (0.2-1.0); CO2 29.7 mmol/L (21.0-32.0); CREATININE 1.5 mg/dL (0.55-1.02); Calcium 9.6 mg/dL (8.5-10.1); Chloride 101 mmol/L (98-107); Estimated GFR 34.23 (mL/min/1.73m2); Glucose 185 mg/dL (74-106); Magnesium 1.9 mg/dL (1.8-2.4); Potassium 4.7 mmol/L (3.5-5.1); Sodium 139 mmol/L (136-145); Total Protein 7.7 g/dL (6.4-8.2)
[2021-01-26 15:24] LABS: Troponin I 0.11 ng/mL (<0.06)
[2021-01-26 15:25] LABS: NT-proBNP 711 pg/mL (<300)
[2021-01-26 15:48] LABS: Source Nasal/Nares
[2021-01-26] MEDS: Clopidogrel 300 MG TAB PO (15:51)
[2021-01-26] MEDS: Metoprolol 25 MG TAB (16:30)
[2021-01-26] MEDS: nitroGLYcerin 2% 1 INCH/1 GM PKT TP (16:30)
--- NOTE | 2021-01-26 17:00 | RT.EKG_ITS ---
APPROVED REPORT Exam: Resting ECG Reason for Exam: chest pain Patient Location: E HR:100 bpm ECG Measurements Heart Rate 100 AXIS IN 159 P 80 QRSd 74 QRS 53 QT 348 T 122 QTc 449 Conclusion Sinus tachycardia...rate> 99 Probable left atrial enlargement...P >50mS, <-0.10mV V1 Probable anterior infarct, age indeterminate...Q >35mS, T neg, V2-V5 Abnormal T, consider ischemia, lateral leads...T <-0.20mV, I aVL V5 V6
[2021-01-26 17:49] LABS: Troponin I 0.29 ng/mL (<0.06)
[2021-01-26 18:14] LABS: PTT Activated 55.2 sec (21.0-27.5); Prothrombin Time 10.1 sec (9.3-11.0)
--- NOTE | 2021-01-26 18:18 | HPE_ITS ---
Date of service: 01/26/21 Time of Service: 20:45 Assessment and Plan Assessment and plan (1) Non-ST elevation (NSTEMI) myocardial infarction: Status: Acute Assessment and plan: Presentation, EKG, and increasing troponins c/w NSTEMI. Now pain free after NTG paste. She has been loaded with 324mg ASA, clopidogrel, and heparin ggt. She was already on high intensity statin but I will max out the dose with 40mg rosuvistatin. She has tolerated 25mg metoprolol. She takes atenolol chronically, but tra nsition to metoprolol succinate may be associated with improved CV outcomes. Will give metoprolol tartrate q 6 hr and titrate as tolerated. Case has been reviewed with Cardiology and she has been accepted for transfer tomorrow to [facility] or [facility], non emergent given no ST elevation. (2) CKD (chronic kidney disease): Status: Chronic Assessment and plan: GFR near her baseline stage 3 CKD, follow. She is on full dose ARB. SGLT-2 also improves prognosis, though it likely isn't doing much for her blood sugar with her GFR. Qualifiers: Chronic kidney disease stage: stage 3 (moderate) Chronic kidney disease stage 3 subtype: stage 3b (GFR 30-44) Qualified Code(s): N18.32 - Chronic kidney disease, stage 3b (3) Diabetes mellitus: Status: Chronic Assessment and plan: Has been controlled on basal/bolus insulin, metformin, and SGLT-2. Did not tolerate GLP-1 liraglutide which would have been indicated in setting of CAD. Add sliding scale while inpatient. Hold metformin given pending contrast dye with possible cardiac catheterization. Qualifiers: Chronic kidney disease stage: unspecified stage Diabetes mellitus complication detail: with chronic kidney disease Diabetes mellitus complication status: with kidney complications Diabetes mellitus terminal manager insulin use: with care home use Diabetes mellitus type: type 2 Qualified Code(s): E11.22 - Type 2 diabetes mellitus with diabetic chronic kidney disease; Z79.4 - [facility] (current) use of insulin (4) Chronic obstructive airway disease: Status: Chronic Assessment and plan: Stable, no active exacerbation, continue outpatient controller inhalers. Qualifiers: COPD type: unspecified COPD Qualified Code(s): J44.9 - Chronic obstructive pulmonary disease, unspecified (5) Essential hypertension: Status: Chronic Assessment and plan: Has been controlled. She may benefit changing atenolol to metoprolol as above. Also, with her CKD her HCTZ may not be very effective, and high dose may just be stressing kidney. Defer to PCP, but consider change as outpatient. (6) Reflux esophagitis: Status: Chronic Assessment and plan: We are using clopidogrel, so changing PPI to pantoprazole to avoid omeprazole interaction. (7) Obstructive sleep apnea: Status: Chronic Assessment and plan: Her will bring home CPAP, states she is adherent (8) Vaginal bleeding, abnormal: Status: Acute Assessment and plan: this is a new issue, given she is post menopausal and high risk she should have this assessed even though she is s/p hysterectomy. Plan as outpatient. (9) DVT prophylaxis: Status: Acute Assessment and plan: she is getting full dose heparin. H/o chronic GI bleed so monitor. (10) Discharge planning issues: Status: Acute Assessment and plan: I confirmed she wants to be full code. Admitted overnight for medical management pending [facility] transfer for cardiac services 01/27/21 History of Present Illness History of Present Illness Chief Complaint: chest pain Narrative: 70 yo F with history of DM with A1c 8.1%, hypertension, hyperlipidemia, remote breast cancer s/p stephan mastectomy, and GERD who presents after worsening chest pain that had been present for about a week. She states onset was gradual. She describes an aching constant pressure in substernal chest that started mild but became more severe today. [place] like food would get stuck there and there was nothing she could do. Tried Tums but it didn't help. Associated with shortness of breath and some nausea, but no dizziness, palpitations, or diaphoresis. Pain did become more intense with routine activity like walking. Today, she started feeling some numbness in her right hand as well, but otherwise no radiation. She never had this pain before. At first she thought it was heartburn but wasn 't going away. She states she has been taking all her medication regularly. Her pain subsided in the emergency room, then returned. It resolved the second time after NTG paste. She is currently chest pain free. Review of Systems Constitutional Constitutional: Denies anorexia, Denies chills, Denies fever(s), Reports headache(s) (only after NTG), Denies weakness and Denies weight gain Eyes Eyes: Denies change in vision, Denies diplopia and Denies irritation ENT Ears, Nose, Mouth, and Throat: Denies dizziness, Denies mouth lesions, Reports nasal congestion (has allergies), Denies nasal discharge, Reports post nasal drip and Denies sore throat Cardiovascular Cardiovascular: Denies rapid heart rate, Denies irregular heart rhythm, Denies lightheadedness, Denies palpitations, Reports dyspnea and Denies orthopnea Respiratory Respiratory: Reports cough (not new, attributes to allergies), Denies excessive phlegm production, Reports dyspnea and Denies wheezing Gastrointestinal Gastrointestinal: Denies abdominal pain, Denies hematochezia, Denies change in stool character and Denies vomiting Genitourinary Genitourinary: Reports abnormal vaginal bleeding (new spotting on past month), Denies hematuria, Denies dysuria and Denies urinary incontinence Musculoskeletal Musculoskeletal: Denies arthralgias and Denies joint swelling Integumentary/Breasts Skin/Breast: Denies rash and Denies skin ulcer Neurologic Neurologic: Denies dizziness, Denies sensory deficit and Denies weakness Psychiatric Psychiatric: Denies mood swings and Denies panic attacks Endocrine Endocrine: Denies palpitations Hematologic/Lymphatic Hematologic/Lymphatic: Denies easy bleeding Allergic/Immunologic Allergic/Immunologic: Denies wheezing [facility] Medical History Allergic rhinitis Anemia (02/11/14) Suspect chronic dz/bone marrow suppression s/p breast CA tx (radiation); s/p GI workup (possible AVMs?), NL B12/folate, elevated Epo, NL retic count; chronic iron supplementation Atherosclerosis of both carotid arteries (11/12/16) 10/2016 [facility] Vascular Consult: carotid US showing 16-49% stenosis both internal carotids Recommend annual carotid US Breast CA R 2001, L2003 s/p bilateral lumpectomy. S/P XRT and Tamoxifen. Chronic GI bleeding Chronic obstructive airway disease (06/04/12) [facility] Pulmonology (Dr. Cruz) Moderate-very severe Last OV & PFTs 08/21/16 [facility] Night-time Oxygen Per pulmonolgy() Severe-very severe KONRAD 10/31/16 CKD (chronic kidney disease) Compression fracture of lumbar vertebra (03/14/17) Depression (11/30/02) s/p of brother (on SSRI for short time) Diabetes mellitus (11/27/04) Dx'ed early Goal A1C <7.5% DJD (degenerative joint disease) (02/04/14) Lumbar spine--multiple level on MRI Surgery 10/2011, [facility] Dr. Smith Essential hypertension (05/16/04) H/O laminectomy L5S1 Headache Heart murmur 07/11/2016 echo: mild-moderate mitral regurgitation Hiatal hernia (02/11/14) Smaller portions Endoscopy 10/04 anemia (nothing found), [facility] Hyperlipidemia (03/18/07) Pt on high intensity statin therapy Hypomagnesemia (03/04/17) Intraabdominal calcification (11/14/15) Incidental finding on CT 2 mm between bladder and uterus, no further eval required, [facility] Iron deficiency anemia (01/02/17) S/p colo & EGD 05/2015, then capsule endoscopy & push enteroscopy with no definitive etiology identified; 11/14/2017: repeat colonoscopy (due to return of anemia) showing a colonic angioectasia, which may have been source of bleeding & anemia (no overt bleeding found). Fe supplementation & monitor Left renal artery stenosis (08/30/16) 08/21/16 [facility] Vascular Surgery consult: moderate-severe stenosis; given well-controlled HTN & normal kidney function, renal artery intervention not indicated at this t 10/2016: 3 mo f/u renal duplex US showing >60% stenosis with decent blood flow to L kidney Consider stent placement if BP becomes poorly controlled or renal function begins to deteriorate Leg cramps (04/01/14) Low Mg+ --> supplementation helped, but caused diarrhea; handout on dietary Mg+ given Microalbuminuria due to type 2 diabetes mellitus Obstructive sleep apnea (03/02/14) Bipap w/ 2L 02 09/06/2019 Osteopenia (02/14/16) DEXA 02/14/16: Fem neck t-score -1.2 --> WHO FRAX major osteoporotic 13% & hip fx 1.3% risk --> does not qualify for bisphosphonates --> Ca & vit D 03/2017 L3 compression fx --> re-calc WHO FRAX major osteoporotic 21% & hip fx 2.3% risk --> now qualifies for bisphosphonate tx, started 03/2017 Probable allergic rxn to Alendronate (1st pill Wed, Hives Th and stayed thru today (but no worsening), 07/05. Agree to STOP for now. 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 Vascular Surgery consult: moderate stenosis, not source of clinical pathology, & no intervention or further evaluation indicated Superior mesenteric artery stenosis Tobacco use disorder 30-50 PY, QUIT 1999 Surgical History Biopsy, Lymph Node (~2003) (L) axilla for breast CA Breast, Lumpectomy (~2003) B/L for breast CA Extraction of cataract left eye surgical removal with intraocular lens implant. Dr Agee H/O laminectomy (~10/06/12) L5S1 Huyen Frazier, Dr. Garay Oophrectomy, Right (~2007) For unknown reason Tooth Extractions Multiple Family History Sister Breast cancer Mother , 89 Alzheimer's dementia Breast cancer Father , AGE 75 Alcohol abuse Cirrhosis Sister Neoplasm uterine CA Sister Heart disease Brother Heart disease Niece Breast cancer Social History (Updated 01/26/21 @ 21:33 by Jonny Frost) Smoking/Tobacco Use Status: Former Tobacco Use Quit Date: 09/02/00 Pack-years: 37 Tobacco: How many years used: 25 Smoking risk assessment performed?: Yes Alcohol Intake: former Details: none Drug use: Never Substance use type: does not use Adopted: No Caregiver/Support person: No Foster care: No Household members: spouse Number of Children: 4 Communication Needs: None Pets and animals: No Current gender identity: female What type of physical activity do you participate in: regular exercise Duration: < 15 minutes/day Frequency: 3-4 times per week Mell/Sikh: Jainism Seatbelt use: always Drive intox or ride w/intox hazmat cdl a driver: No Working smoke detector in home: Yes Fire extinguisher in home: Yes Carbon monox detector in home: Yes Do you feel safe at home: Yes Do you feel safe in your relationship?: Yes Additional Social history: Lives with in [place]. 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 She has 11 grandkids who all live close. Meds Allergies and Home Medications Allergies Allergy/AdvReac Type Severity Reaction Status Date / Time propylene glycol Allergy Severe Rash Verified 01/26/21 14:17 petrolatum,white Allergy Intermediate rash Verified 01/26/21 14:17 [From Petroleum Jelly] adhesive tape Allergy Unknown Skin Rash Verified 01/26/21 14:17 alendronate sodium Allergy Unknown Hives Verified 01/26/21 14:17 azithromycin AdvReac Intermediate dry heaves Verified 01/26/21 14:17 and diarrhea hydrocodone bitartrate AdvReac Intermediate Nausea Verified 01/26/21 14:17 [From Vicodin] liraglutide [From Victoza] AdvReac Intermediate diarhhea Verified 01/26/21 14:17 paraben AdvReac Intermediate Skin Rash Verified 01/26/21 14:17 quaternium 15 AdvReac Intermediate generalized Verified 01/26/21 14:17 rash LANDON Inhibitors AdvReac Unknown COUGH,DYSPN Verified 01/26/21 14:17 EA oxycodone HCl [From Percocet] AdvReac Unknown NAUSEA/VOMI Verified 01/26/21 14:17 TING fragranced creams Allergy Intermediate Skin Rash Uncoded 01/26/21 14:17 parabin wax Allergy Intermediate Skin Rash Uncoded 01/26/21 14:17 diogolidinyl AdvReac Severe Skin Rash Uncoded 01/26/21 14:17 bisphenal AdvReac Intermediate Skin Rash Uncoded 01/26/21 14:17 Home Medications Medication Instructions Recorded Confirmed Type aspirin [Aspir-81] 81 mg PO DAILY #90 03/30/13 01/26/21 History Oxygen l NS At Night #2 04/19/16 02/19/19 Clinic multivitamin [Daily Multi-Vitamin] 1 ea PO DAILY 03/19/17 01/26/21 History albuterol sulfate [ProAir HFA] 1 puff INHALATION Q4H PRN #2 04/02/17 01/12/21 Hi story inhaler lancets [Sure Comfort Lancets] #1 box 06/24/17 01/12/21 Rx acetaminophen 1,000 mg PO TID PRN #90 tab-cap 12/16/17 01/12/21 History cyanocobalamin (vitamin B-12) 1,000 mcg PO DAILY #90 tab-cap 05/07/18 01/12/21 Rx 1,000 mcg tablet nebulizer and compressor #1 each 08/21/18 01/12/21 Rx ipratropium 20 mcg-albuterol 100 1 - 2 puff INHALATION .Q4-6H PRN 10/17/18 01/26/21 Rx mcg/actuation mist for inhalation #3 device valsartan 320 mg tablet 320 mg PO DAILY #90 tab-cap 02/24/20 01/12/21 Rx budesonide-formoterol HFA 160 2 puff INHALATION BID #3 inhaler 03/11/20 01/12/21 Rx mcg-4.5 mcg/actuation aerosol inhaler umeclidinium 62.5 mcg/actuation 62.5 mcg INHALATION DAILY #3 disk 03/11/20 01/26/21 Rx blister powder for inhalation cetirizine 10 mg tablet 10 mg PO DAILY #90 tab-cap 03/18/20 01/26/21 Rx hydrochlorothiazide 50 mg tablet 50 mg PO QAM #90 tab 04/25/20 01/26/21 Rx ferrous sulfate 650 mg PO TID 05/14/20 01/26/21 History benzonatate 100 mg capsule 100 mg PO TID PRN #30 tab-cap 06/03/20 01/12/21 Rx atenolol 100 mg tablet 100 mg PO DAILY #90 tab-cap 06/27/20 01/26/21 Rx omeprazole 20 mg capsule,delayed 20 mg PO DAILY #90 cap 07/15/20 01/26/21 Rx release calcium carbonate-vitamin D3 600 2 tab PO DAILY #180 tab-cap 08/10/20 01/26/21 Rx mg (1,500 mg)-800 unit tablet blood sugar diagnostic #400 ea 08/29/20 01/12/21 Rx flash glucose scanning reader #1 ea 09/09/20 01/12/21 Rx flash glucose sensor #6 ea 09/09/20 01/12/21 Rx metformin 500 mg tablet 500 mg PO BID #180 tab MDD 1000 mg 09/23/20 01/26/21 Rx montelukast 10 mg tablet 10 mg PO DAILY #90 tab-cap 09/23/20 01/26/21 Rx pen needle, diabetic 31 gauge x #400 ea 10/12/20 01/12/21 Rx 11/15 Humalog KwikPen Insulin 100 4 unit SUBCUT [facility] #15 syrg NS 11/02/20 01/26/21 Rx unit/mL subcutaneous glucagon (human recombinant) 1 mg 1 mg SUBCUT ONCE #1 ea 11/11/20 01/12/21 Rx solution for injection magnesium oxide 400 mg (241.3 mg See Rx Instructions PO .COMPLEX 11/16/20 01/26/21 Rx magnesium) tablet #270 tab-cap rosuvastatin 20 mg tablet 20 mg PO DAILY #90 tab-cap 11/16/20 01/26/21 Rx insulin glargine 100 unit/mL (3 30 unit SC BID #18 syrg 12/12/20 01/26/21 Rx mL) subcutaneous pen empagliflozin 25 mg tablet 25 mg PO DAILY AM #90 tab-cap 01/02/21 01/26/21 Rx albuterol sulfate 2.5 mg IH QID PRN #180 ml 01/04/21 01/26/21 Rx Exam Narrative Exam Narrative: GEN: Alert and oriented, pleasent and cooperative, gives linear history. No acute distress at rest. HEENT: Head atraumatic. Conjunctiva clear, no icterus. PEERL, EOMI. no rhinorrhea. MMM, OP benign. Neck is supple with no masses or lymphadenopathy, trachea midline LUNGS: Diffusely deminished but CTAB with normal effort CV: RRR with no murmurs, gallops, or rubs. ABD: +BS, soft, NT/ND EXT: no cyanosis, clubbing, or edema MSK: No joint redness or swelling NEURO: CN 2-12 grossly intact. Normal movement of 4 extremities. Normal speech and coordination SKIN: No rashs or open wounds. PSYCH: normal mood and affect Results Imaging EKG: image reviewed (ST depression/T inversion leads 1, V4-6 c/w lateral ischemia) Labs Result diagrams: 01/26/21 14:30 01/26/21 14:30 Labs: Laboratory Results - last 24 hr 01/26/21 01/26/21 01/26/21 14:11 14:30 14:30 WBC 4.03 L RBC 4.20 Hgb 12.8 Hct 40.2 MCV 95.7 H MCH 30.5 MCHC 31.8 L RDW 15.6 H Plt Count 210 MPV 8.6 Immature Gran % 1.5 Neutrophils % 56.5 Lymphocytes % 26.1 Monocytes % 11.2 Eosinophils % 4.2 Basophils % 0.5 Nucleated RBC % 0 Absolute Neutrophils 2.28 Absolute Lymphocytes 1.05 L Absolute Monocytes 0.45 Absolute Eosinophils 0.17 Absolute Basophils 0.02 PT INR APTT Sodium 139 Potassium 4.7 Chloride 101 Carbon Dioxide 29.7 Anion Gap 8.3 BUN 34 H Creatinine 1.5 H Estimated GFR/1.73 m2 34.23 Glucose 185 H Calcium 9.6 Magnesium 1.9 Total Bilirubin 0.3 AST 22 ALT 32 Alkaline Phosphatase 53 Troponin I 0.11 H* NT-Pro-B Natriuret Pep 711 H Total Protein 7.7 Albumin 3.7 COVID-19 Source 01/26/21 01/26/21 01/26/21 15:40 16:13 17:18 WBC RBC Hgb Hct MCV MCH MCHC RDW Plt Count MPV Immature Gran % Neutrophils % Lymphocytes % Monocytes % Eosinophils % Basophils % Nucleated RBC % Absolute Neutrophils Absolute Lymphocytes Absolute Monocytes Absolute Eosinophils Absolute Basophils PT Cancelled INR Cancelled APTT Cancelled Sodium Potassium Chloride Carbon Dioxide Anion Gap BUN Creatinine Estimated GFR/1.73 m2 Glucose Calcium Magnesium Total Bilirubin AST ALT Alkaline Phosphatase Troponin I 0.29 H* NT-Pro-B Natriuret Pep Total Protein Albumin COVID-19 Source Nasal/nares Last Vital Signs Temp 36.8 C 01/26/21 14:11 Pulse 98 H 01/26/21 17:16 Resp 21 01/26/21 18:00 BP 128/53 L 01/26/21 17:16 Pulse Ox 94 01/26/21 18:00 COVID-19 Screening Have you, or household traveled for leisure in last 14 days?: No Had IN PERSON contact w/suspected or confirmed C-19 person: No
[2021-01-26 21:01] LABS: COVID-19 PCR Negative (Negative)
[2021-01-26] MEDS: Insulin Glargine 300 UNITS/3 ML PEN 30 UNITS SC (21:56)
[2021-01-26] MEDS: Rosuvastatin 10 MG TAB 40 MG PO (21:58)
[2021-01-26] MEDS: Magnesium Oxide 400 MG TAB PO (21:58)
[2021-01-26] MEDS: Montelukast 10 MG TAB PO (22:00)
[2021-01-26 22:26] LABS: PTT Activated 37.6 sec (21.0-27.5)
[2021-01-27] VITALS (15 sets, daily range): BP systolic 104–118; BP diastolic 35–46; PULSE 72–93; RESP 15–28; TEMP 36.1; O2SAT 85–98
--- NOTE | 2021-01-27 04:27 | W.PM.DS.N ---
Date of service: 01/27/21 Time of Service: 04:27 DS: Diagnosis Discharge Diagnosis (1) Non-ST elevation (NSTEMI) myocardial infarction: Status: Acute (2) CKD (chronic kidney disease): Status: Chronic (3) Diabetes mellitus: Status: Chronic (4) Chronic obstructive airway disease: Status: Chronic (5) Essential hypertension: Status: Chronic (6) Reflux esophagitis: Status: Chronic (7) Obstructive sleep apnea: Status: Chronic (8) Vaginal bleeding, abnormal: Status: Acute (9) DVT prophylaxis: Status: Acute (10) Discharge planning issues: Status: Acute Discharge Plan Disposition Patient Disposition: [facility] Condition: Serious Discharge Details Reason For Visit: nstemi Admit Date/Time: 01/26/21 17:58 Admit Provider: Jonny Frost Attending Provider: Jonny Frost Primary Care Provider: [facility] Course Hospital Course: 70 yo F with history of DM with A1c 8.1%, hypertension, hyperlipidemia, COPD, remote breast cancer s/p stephan mastectomy, and GERD who presents after worsening chest pain that had been present for about a week but worsening on day of admission. EKG showed lateral ST depression and T inversions, troponin initially 0.11 trending up to 0.29. She was given 324mg of aspirin, 300mg clopidogrel, and started on heparin drip. Her chest pain returned in the emergency room, but resolved after NTG paste, and she was chest pain free during her brief admission. She was given metoprolol in the emergency room, and the decision was made to continue this at 25mg q 6 hours rather than go back to her outpatient atenolol. The plan was for her to end up on metoprolol succinate. Her statin was doubled to full dose rosuvastatin. Her iron dose was decreased from outpatient TID as her anemia had resolved. Pantoprazole replaced her omeprazole given clopidogrel interaction. Otherwise her medications were not changed from outpatient. Home Meds and New Rx's Prescriptions: No Action benzonatate 100 mg capsule 100 mg PO TID PRN (Reason: cough) Qty: 30 RF: 0 (DME) FreeStyle Basia 2 Perry Misc See Rx Instructions .ROUTE .MEDSUPPLY Qty: 1 RF: 0 (DME) FreeStyle Basia 2 Sensor Kit See Rx Instructions .ROUTE .MEDSUPPLY Qty: 6 RF: 3 (DME) nebulizer and compressor device See Dose Instructions .ROUTE .MEDSUPPLY Qty: 1 RF: 0 cetirizine 10 mg tablet 10 mg PO DAILY Qty: 90 RF: 3 hydrochlorothiazide 50 mg tablet 50 mg PO QAM Qty: 90 RF: 3 atenolol 100 mg tablet 100 mg PO DAILY Qty: 90 RF: 3 Glucagon Emergency Kit (human) 1 mg recon soln 1 mg subcut ONCE Qty: 1 RF: 0 Lantus Solostar U-100 Insulin 100 unit/mL (3 mL) insulin pen 30 unit SC BID Qty: 18 RF: 3 Oxygen EACH NS At Night Qty: 2 RF: 0 multivitamin [Daily Multi-Vitamin] 1 EACH tablet 1 ea PO DAILY RF: 0 albuterol sulfate [ProAir HFA] 8.5 GM HFA aerosol inhaler 1 puff Inhalation Q4H PRN Qty: 2 RF: 3 (DME) lancets [Sure Comfort Lancets] 1 EACH misc 1 ea Miscellaneous DAILY Qty: 1 RF: 3 acetaminophen 500 MG tablet 1,000 mg PO TID PRNQty: 90 RF: 0 cyanocobalamin (vitamin B-12) 1,000 mcg tablet 1,000 mcg PO DAILY Qty: 90 RF: 3 Combivent Respimat 20-100 mcg/actuation mist 1 - 2 puff Inhalation .Q4-6H PRN (Reason: shortness of breath or wheezing) Qty: 3 RF: 3 valsartan 320 mg tablet 320 mg PO DAILY Qty: 90 RF: 3 budesonide-formoterol [Symbicort] 160-4.5 mcg/actuation HFA aerosol inhaler 2 puff Inhalation BID Qty: 3 RF: 3 Incruse Ellipta 62.5 mcg/actuation blister with device 62.5 mcg Inhalation DAILY Qty: 3 RF: 3 omeprazole 20 mg capsule,delayed release(DR/EC) 20 mg PO DAILY Qty: 90 RF: 3 calcium carbonate-vitamin D3 600 mg(1,500mg) -800 unit tablet 2 tab PO DAILY Qty: 180 RF: 3 (DME) Blood Glucose Test Strip See Rx Instructions .ROUTE .MEDSUPPLY Qty: 400 RF: 0 metformin 500 mg tablet 500 mg PO BID MDD 1000 mg Qty: 180 RF: 3 montelukast [Singulair] 10 mg tablet 10 mg PO DAILY Qty: 90 RF: 3 (DME) pen needle, diabetic [Lite Touch Insulin Pen Temple] 31 gauge x 3/16 needle See Rx Instructions .ROUTE .MEDSUPPLY Qty: 400 RF: 3 insulin lispro [Humalog KwikPen Insulin] 100 unit/mL insulin pen 4 unit subcut QAC Qty: 15 RF: 3 rosuvastatin [Crestor] 20 mg tablet 20 mg PO DAILY Qty: 90 RF: 3 magnesium oxide 400 mg (241.3 mg magnesium) tablet See Rx Instructions PO .COMPLEX Qty: 270 RF: 3 Jardiance 25 mg tablet 25 mg PO DAILY AM Qty: 90 RF: 3 albuterol sulfate 2.5 mg /3 mL (0.083 %) solution for nebulization 2.5 mg IH QID PRN (Reason: bronchospasm) Qty: 180 RF: 6 aspirin [Aspir-81] 81 MG tablet,delayed release (DR/EC) 81 mg PO DAILY Qty: 90 RF: 3 ferrous sulfate 325 mg (65 mg iron) tablet 650 mg PO TID RF: 0 Discharge Instructions Activity:: bed rest Diet:: NPO pending cardiac cath Discharge Orders Discharge Orders: Discharge Order (Routine); Ordered 01/27/21 Ordered By: Jonny Frost DS: Summary Time Spent with Patient providing and/or coordinating discharge services: Less than 30 minutes Status at Discharge Functional status at discharge: independent ambulation Overall status at discharge: patient is not back to baseline Mental Status: mental status grossly normal Speech and Movement: speech and movement normal Mood: congruent mood Affect: normal affect Exam Narrative Exam Narrative: GEN: Alert and oriented, pleasent and cooperative. No acute distress at rest. LUNGS: CTAB, though breath sound diffusely deminished. normal effort CV: RRR with no murmurs, gallops, or rubs. ABD: +BS, soft, NT/ND EXT: no cyanosis, clubbing, or edema PSYCH: normal mood and affect Psych Mental Status: mental status grossly normal Speech and Movement: speech and movement normal Mood: congruent mood Affect: normal affect DS: Data Vitals/I&O Vitals and I&O: Vital Signs Temperature 36.1 C L 01/27/21 03:36 Temperature Source Temporal Artery Scan 01/27/21 03:36 Pulse 82 01/27/21 04:01 Pulse 93 H 01/27/21 04:01 Respiratory Rate 28 H 01/27/21 04:01 Respiratory Effort 01/27/21 03:36 Respiratory Depth Normal 01/27/21 03:36 Respiratory Pattern Normal 01/27/21 03:36 Blood Pressure 110/35 L 01/27/21 04:01 Blood Pressure Mean 53 01/27/21 04:01 Blood Pressure Position Sitting 01/26/21 14:11 Pulse Oximetry 95 01/27/21 04:01 Oxygen Delivery Method Cpap 01/27/21 03:57 Oxygen Flow Rate 5 01/27/21 03:57 Pain Level 0 01/27/21 03:36 Intake & Output 01/26/21 01/26/21 01/27/21 11:59 23:59 11:59 Intake Total 462.533 / 462.533 Output Total 325 / 325 350 / 350 Balance 137.533 / 137.533 -350 / -350 Weight 68.5 kg Intake: IV 62.533 / 62.533 Oral 400 / 400 Output: Urine 325 / 325 350 / 350 Other: Urine Color Yellow Yellow Urine Appearance Clear Clear Urine Odor Normal Normal Voiding Methods Bedside Commode Bedside Commode Data Completed and Pending Labs on day of discharge: Labs from last 24 hours 01/27/21 01/27/21 01/26/21 05:35 04:25 22:08 WBC RBC Hgb Hct MCV MCH MCHC RDW Plt Count MPV Immature Gran % Neutrophils % Lymphocytes % Monocytes % Eosinophils % Basophils % Nucleated RBC % Absolute Neutrophils Absolute Lymphocytes Absolute Monocytes Absolute Eosinophils Absolute Basophils PT INR APTT Pending 37.6 H D Sodium Pending Potassium Pending Chloride Pending Carbon Dioxide Pending Anion Gap Pending BUN Pending Creatinine Pending Estimated GFR/1.73 m2 Pending Glucose Pending Calcium Pending Magnesium Total Bilirubin AST ALT Alkaline Phosphatase Troponin I Pending NT-Pro-B Natriuret Pep Total Protein Albumin COVID-19 Source SARS-CoV-2 (PCR) 01/26/21 01/26/21 01/26/21 17:54 17:18 16:13 WBC RBC Hgb Hct MCV MCH MCHC RDW Plt Count MPV Immature Gran % Neutrophils % Lymphocytes % Monocytes % Eosinophils % Basophils % Nucleated RBC % Absolute Neutrophils Absolute Lymphocytes Absolute Monocytes Absolute Eosinophils Absolute Basophils PT 10.1 Cancelled INR 1.0 Cancelled APTT 55.2 H Cancelled Sodium Potassium Chloride Carbon Dioxide Anion Gap BUN Creatinine Estimated GFR/1.73 m2 Glucose Calcium Magnesium Total Bilirubin AST ALT Alkaline Phosphatase Troponin I 0.29 H* NT-Pro-B Natriuret Pep Total Protein Albumin COVID-19 Source SARS-CoV-2 (PCR) 01/26/21 01/26/21 01/26/21 15:40 14:30 14:30 WBC 4.03 L RBC 4.20 Hgb 12.8 Hct 40.2 MCV 95.7 H MCH 30.5 MCHC 31.8 L RDW 15.6 H Plt Count 210 MPV 8.6 Immature Gran % 1.5 Neutrophils % 56.5 Lymphocytes % 26.1 Monocytes % 11.2 Eosinophils % 4.2 Basophils % 0.5 Nucleated RBC % 0 Absolute Neutrophils 2.28 Absolute Lymphocytes 1.05 L Absolute Monocytes 0.45 Absolute Eosinophils 0.17 Absolute Basophils 0.02 PT INR APTT Sodium 139 Potassium 4.7 Chloride 101 Carbon Dioxide 29.7 Anion Gap 8.3 BUN 34 H Creatinine 1.5 H Estimated GFR/1.73 m2 34.23 Glucose 185 H Calcium 9.6 Magnesium 1.9 Total Bilirubin 0.3 AST 22 ALT 32 Alkaline Phosphatase 53 Troponin I 0.11 H* NT-Pro-B Natriuret Pep Total Protein 7.7 Albumin 3.7 COVID-19 Source Nasal/nares SARS-CoV-2 (PCR) Negative 01/26/21 14:11 WBC RBC Hgb Hct MCV MCH MCHC RDW Plt Count MPV Immature Gran % Neutrophils % Lymphocytes % Monocytes % Eosinophils % Basophils % Nucleated RBC % Absolute Neutrophils Absolute Lymphocytes Absolute Monocytes Absolute Eosinophils Absolute Basophils PT INR APTT Sodium Potassium Chloride Carbon Dioxide Anion Gap BUN Creatinine Estimated GFR/1.73 m2 Glucose Calcium Magnesium Total Bilirubin AST ALT Alkaline Phosphatase Troponin I NT-Pro-B Natriuret Pep 711 H Total Protein Albumin COVID-19 Source SARS-CoV-2 (PCR) [facility] Medical History Allergic rhinitis Anemia (02/11/14) Suspect chronic dz/bone marrow suppression s/p breast CA tx (radiation); s/p GI workup (possible AVMs?), NL B12/folate, elevated Epo, NL retic count; chronic iron supplementation Atherosclerosis of both carotid arteries (11/12/16) 10/2016 [facility] [place] [facility] [place] Consult: carotid US showing 16-49% stenosis both internal carotids Recommend annual carotid US Breast CA R 2002, L2003 s/p bilateral lumpectomy. S/P XRT and Tamoxifen. Chronic GI bleeding Chronic obstructive airway disease (06/04/12) [facility] [place] [facility] [place] (Dr. Cruz) Moderate-very severe Last OV & PFTs 08/21/16 [facility] [place] Night-time Oxygen Per pulmonolgy() Severe-very severe KONRAD 10/31/16 CKD (chronic kidney disease) Compression fracture of lumbar vertebra (03/14/17) Depression (11/30/02) s/p of brother (on SSRI for short time) Diabetes mellitus (11/27/04) Dx'ed early Goal A1C <7.5% DJD (degenerative joint disease) (02/04/14) Lumbar spine--multiple level on MRI Surgery 10/2011, [facility] Dr. Smith Essential hypertension (05/16/04) H/O laminectomy L5S1 Headache Heart murmur 07/11/2016 echo: mild-moderate mitral regurgitation Hiatal hernia (02/11/14) Smaller portions Endoscopy 10/04 anemia (nothing found), [facility] [place] [facility] [place] Hyperlipidemia (03/18/07) Pt on high intensity statin therapy Hypomagnesemia (03/04/17) Intraabdominal calcification (11/14/15) Incidental finding on CT 2 mm between bladder and uterus, no further eval required, AOC Iron deficiency anemia (01/02/17) S/p colo & EGD 05/2015, then capsule endoscopy & push enteroscopy with no definitive etiology identified; 11/14/2017: repeat colonoscopy (due to return of anemia) showing a colonic angioectasia, which may have been source of bleeding & anemia (no overt bleeding found). Fe supplementation & monitor Left renal artery stenosis (08/30/16) 08/21/16 [facility] [place] [facility] [place] Vascular Surgery consult: moderate-severe stenosis; given well-controlled HTN & normal kidney function, renal artery intervention not indicated at this t 10/2016: 3 mo f/u renal duplex US showing >60% stenosis with decent blood flow to L kidney Consider stent placement if BP becomes poorly controlled or renal function begins to deteriorate Leg cramps (04/01/14) Low Mg+ --> supplementation helped, but caused diarrhea; handout on dietary Mg+ given Microalbuminuria due to type 2 diabetes mellitus Obstructive sleep apnea (03/02/14) Bipap w/ 2L 02 09/06/2019 Osteopenia (02/14/16) DEXA 02/14/16: Fem neck t-score -1.2 --> WHO FRAX major osteoporotic 13% & hip fx 1.3% risk --> does not qualify for bisphosphonates --> Ca & vit D 03/2017 L3 compression fx --> re-calc WHO FRAX major osteoporotic 21% & hip fx 2.3% risk --> now qualifies for bisphosphonate tx, started 03/2017 Probable allergic rxn to Alendronate (1st pill Sat, and stayed thru today (but no worsening), 07/05. Agree to STOP for now. 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 Dr Agee H/O laminectomy (~10/06/12) L5S1 Huyen Frazier, Dr. Garay Oophrectomy, Right (~2007) For unknown reason Tooth Extractions Multiple Family History Sister Breast cancer Mother , 89 Alzheimer's dementia Breast cancer Father , AGE 75 Alcohol abuse Cirrhosis Sister Neoplasm uterine CA Sister Heart disease Brother Heart disease Niece Breast cancer Social History (Updated 01/26/21 @ 21:33 by Jonny Jaffe Smoking/Tobacco Use Status: Former Tobacco Use Quit Date: 09/02/00 Pack-years: 37 Tobacco: How many years used: 25 Smoking risk assessment performed?: Yes Alcohol Intake: former Details: none Drug use: Never Substance use type: does not use Adopted: No Caregiver/Support person: No Foster care: No Household members: spouse Number of Children: 4 Communication Needs: None Pets and animals: No Current gender identity: female What type of physical activity do you participate in: regular exercise Duration: < 15 minutes/day Frequency: 3-4 times per week Mell/Gnosticism: Presybeterian Seatbelt use: always Drive intox or ride w/intox local 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 She has 11 grandkids who all live close.
[2021-01-27 04:47] LABS: PTT Activated 50.7 sec (21.0-27.5)
[2021-01-27 07:43] LABS: Anion Gap 4.8 mmol/L (3-11); BUN 31 mg/dL (7-18); CO2 32.2 mmol/L (21.0-32.0); CREATININE 1.2 mg/dL (0.55-1.02); Calcium 9.7 mg/dL (8.5-10.1); Chloride 104 mmol/L (98-107); Estimated GFR 44.29 (mL/min/1.73m2); Glucose 152 mg/dL (74-106); Potassium 4.6 mmol/L (3.5-5.1); Sodium 141 mmol/L (136-145)
[2021-01-27 07:44] LABS: Troponin I 0.94 ng/mL (<0.06)
== END 2021-01-27 07:00 | disposition short-term general hospital (02) | DRG 281 ==
LOC: ER 20:40 → ICU 21:07
PROVIDERS: Registered Nurse Emergency; Admitting Provider Family Medicine; Emergency Provider Physician Assistant; PCP Nurse Practitioner Family; Visit Provider Family Medicine
DX: I21.4 Non-ST elevation (NSTEMI) myocardial infarction (principal); K55.1 Chronic vascular disorders of intestine; N18.32 Chronic kidney disease, stage 3b; E11.22 Type 2 diabetes mellitus with diabetic chronic kidney disease; J44.9 Chronic obstructive pulmonary disease, unspecified; K21.00 Gastro-esophageal reflux disease with esophagitis, without bleeding; G47.33 Obstructive sleep apnea (adult) (pediatric); N95.0 Postmenopausal bleeding; I12.9 Hypertensive chronic kidney disease with stage 1 through stage 4 chronic kidney disease, or unspecified chronic kidney disease; E78.5 Hyperlipidemia, unspecified; Z85.3 Personal history of malignant neoplasm of breast; F32.9 Major depressive disorder, single episode, unspecified; D50.9 Iron deficiency anemia, unspecified; F17.210 Nicotine dependence, cigarettes, uncomplicated; Z20.822 Contact with and (suspected) exposure to COVID-19
CPT/HCPCS: 36415; 80048; 80053; 87635; 93005; 96365; 96366; 96376; 99285; 71046; 83735; 83880; 84484; 85025; 85610; 85730; 93010

== ENCOUNTER 2021-02-04 17:30 | Emergency (ER) | payer MEDICARE, BC, SELFPAY ==
[2021-02-04] VITALS (85 sets, daily range): BP systolic 117–181; BP diastolic 40–80; PULSE 61–74; RESP 14–29; TEMP 37; O2SAT 85–97
--- NOTE | 2021-02-04 17:30 | RT.EKG_ITS ---
APPROVED REPORT Exam: Resting ECG Reason for Exam: sob Patient Location: E HR:78 bpm ECG Measurements Heart Rate 78 AXIS WI 161 P 81 QRSd 78 QRS 20 QT 405 T 31 QTc 462 Conclusion Sinus rhythm...normal P axis, V-rate 60- 99 Probable left atrial enlargement...P >50mS, <-0.10mV V1. Peaked T waves in anterior leads. No STEMI. I have reviewed and interpreted ECG and agree with software generated interpretation.
--- NOTE | 2021-02-04 17:48 | ED.GENADUL_ITS ---
Discharge Plan Discharge Details Primary Care Provider: María Mendoza ED Provider: Roxana Whittington Home Meds and New Rx's Prescriptions: No Action (DME) FreeStyle Basia 2 [place] Misc See Rx Instructions .ROUTE .MEDSUPPLY Qty: 1 RF: 0 (DME) FreeStyle Basia 2 Sensor Kit See Rx Instructions .ROUTE .MEDSUPPLY Qty: 6 RF: 3 (DME) nebulizer and compressor device See Dose Instructions .ROUTE .MEDSUPPLY Qty: 1 RF: 0 Glucagon Emergency Kit (human) 1 mg recon soln 1 mg subcut ONCE Qty: 1 RF: 0 Lantus Solostar U-100 Insulin 100 unit/mL (3 mL) insulin pen 30 unit SC BID Qty: 18 RF: 3 Oxygen EACH NS At Night Qty: 2 RF: 0 multivitamin [Daily Multi-Vitamin] 1 EACH tablet 1 ea PO DAILY RF: 0 albuterol sulfate [ProAir HFA] 8.5 GM HFA aerosol inhaler 1 puff Inhalation Q4H PRN Qty: 2 RF: 3 (DME) lancets [Sure Comfort Lancets] 1 EACH misc 1 ea Miscellaneous DAILY Qty: 1 RF: 3 acetaminophen 500 MG tablet 1,000 mg PO TID PRNQty: 90 RF: 0 cyanocobalamin (vitamin B-12) 1,000 mcg tablet 1,000 mcg PO DAILY Qty: 90 RF: 3 Combivent Respimat 20-100 mcg/actuation mist 1 - 2 puff Inhalation .Q4-6H PRN (Reason: shortness of breath or wheezing) Qty: 3 RF: 3 budesonide-formoterol [Symbicort] 160-4.5 mcg/actuation HFA aerosol inhaler 2 puff Inhalation BID Qty: 3 RF: 3 Incruse Ellipta 62.5 mcg/actuation blister with device 62.5 mcg Inhalation DAILY Qty: 3 RF: 3 omeprazole 20 mg capsule,delayed release(DR/EC) 20 mg PO DAILY Qty: 90 RF: 3 calcium carbonate-vitamin D3 600 mg(1,500mg) -800 unit tablet 2 tab PO DAILY Qty: 180 RF: 3 (DME) Blood Glucose Test Strip See Rx Instructions .ROUTE .MEDSUPPLY Qty: 400 RF: 0 metformin 500 mg tablet 500 mg PO BID MDD 1000 mg Qty: 180 RF: 3 montelukast [Singulair] 10 mg tablet 10 mg PO DAILY Qty: 90 RF: 3 (DME) pen needle, diabetic [Lite Touch Insulin Pen [place]] 31 gauge x 11/15 needle See Rx Instructions .ROUTE .MEDSUPPLY Qty: 400 RF: 3 insulin lispro [Humalog KwikPen Insulin] 100 unit/mL insulin pen 4 unit subcut QAC Qty: 15 RF: 3 magnesium oxide 400 mg (241.3 mg magnesium) tablet See Rx Instructions PO .COMPLEX Qty: 270 RF: 3 Jardiance 25 mg tablet 25 mg PO DAILY AM Qty: 90 RF: 3 albuterol sulfate 2.5 mg /3 mL (0.083 %) solution for nebulization 2.5 mg IH QID PRN (Reason: bronchospasm) Qty: 180 RF: 6 clopidogrel 75 mg tablet 75 mg PO DAILY RF: 0 metoprolol succinate 50 mg tablet extended release 24 hr 50 mg PO DAILY RF: 0 nitroglycerin 0.4 mg tablet, sublingual 0.4 mg sublingual Q5M PRNRF: 0 hydrochlorothiazide 50 mg tablet 25 mg PO DAILY RF: 0 rosuvastatin [Crestor] 20 mg tablet 40 mg PO DAILY RF: 0 valsartan 80 mg tablet 80 mg PO DAILY RF: 0 aspirin [Aspir-81] 81 MG tablet,delayed release (DR/EC) 81 mg PO DAILY Qty: 90 RF: 3 ferrous sulfate 325 mg (65 mg iron) tablet 650 mg PO TID RF: 0 HPI General Date/Time Provider Initiated Documentation: 02/04/21 17:34 . Related Data Home Medications Medication Instructions Recorded Confirmed aspirin [Aspir-81] 81 mg PO DAILY #90 03/30/13 01/26/21 multivitamin [Daily Multi-Vitamin] 1 ea PO DAILY 03/19/17 01/26/21 albuterol sulfate [ProAir HFA] 1 puff INHALATION Q4H PRN #2 04/02/17 01/12/21 inhaler lancets [Sure Comfort Lancets] #1 box 06/24/17 01/12/21 acetaminophen 1,000 mg PO TID PRN #90 tab-cap 12/16/17 01/12/21 cyanocobalamin (vitamin B-12) 1,000 mcg PO DAILY #90 tab-cap 05/07/18 01/12/21 1,000 mcg tablet nebulizer and compressor #1 each 08/21/18 01/12/21 ipratropium 20 mcg-albuterol 100 1 - 2 puff INHALATION .Q4-6H PRN 10/17/18 01/26/21 mcg/actuation mist for inhalation #3 device budesonide-formoterol HFA 160 2 puff INHALATION BID #3 inhaler 03/11/20 01/12/21 mcg-4.5 mcg/actuation aerosol inhaler umeclidinium 62.5 mcg/actuation 62.5 mcg INHALATION DAILY #3 disk 03/11/20 01/26/21 blister powder for inhalation ferrous sulfate 650 mg PO TID 05/14/20 01/26/21 omeprazole 20 mg capsule,delayed 20 mg PO DAILY #90 cap 07/15/20 01/26/21 release calcium carbonate-vitamin D3 600 2 tab PO DAILY #180 tab-cap 08/10/20 01/26/21 mg (1,500 mg)-800 unit tablet blood sugar diagnostic #400 ea 08/29/20 01/12/21 flash glucose scanning reader #1 ea 09/09/20 01/12/21 flash glucose sensor #6 ea 09/09/20 01/12/21 metformin 500 mg tablet 500 mg PO BID #180 tab MDD 1000 mg 09/23/20 01/26/21 montelukast 10 mg tablet 10 mg PO DAILY #90 tab-cap 09/23/20 01/26/21 pen needle, diabetic 31 gauge x #400 ea 10/12/20 01/12/2111/15 Humalog KwikPen Insulin 100 4 unit SUBCUT QAC #15 syrg NS 11/02/20 01/26/21 unit/mL subcutaneous glucagon (human recombinant) 1 mg 1 mg SUBCUT ONCE #1 ea 11/11/20 01/12/21 solution for injection magnesium oxide 400 mg (241.3 mg See Rx Instructions PO .COMPLEX 11/16/20 01/26/21 magnesium) tablet #270 tab-cap insulin glargine 100 unit/mL (3 30 unit SC BID #18 syrg 12/12/20 01/26/21 mL) subcutaneous pen empagliflozin 25 mg tablet 25 mg PO DAILY AM #90 tab-cap 01/02/21 01/26/21 albuterol sulfate 2.5 mg IH QID PRN #180 ml 01/04/21 01/26/21 clopidogrel 75 mg tablet 75 mg PO DAILY 02/01/21 hydrochlorothiazide 50 mg tablet 25 mg PO DAILY tab 02/01/21 metoprolol succinate 50 mg 50 mg PO DAILY 02/01/21 tablet,extended release 24 hr nitroglycerin 0.4 mg sublingual 0.4 mg SUBLINGUAL Q5M PRN 02/01/21 tablet rosuvastatin 20 mg tablet 40 mg PO DAILY tab 02/01/21 valsartan 80 mg tablet 80 mg PO DAILY 02/01/21 Previous Rx's Medication Instructions Recorded lancets [Sure Comfort Lancets] #1 box 06/24/17 cyanocobalamin (vitamin B-12) 1,000 mcg PO DAILY #90 tab-cap 05/07/18 1,000 mcg tablet nebulizer and compressor #1 each 08/21/18 ipratropium 20 mcg-albuterol 100 1 - 2 puff INHALATION .Q4-6H PRN 10/17/18 mcg/actuation mist for inhalation #3 device budesonide-formoterol HFA 160 2 puff INHALATION BID #3 inhaler 03/11/20 mcg-4.5 mcg/actuation aerosol inhaler umeclidinium 62.5 mcg/actuation 62.5 mcg INHALATION DAILY #3 disk 03/11/20 blister powder for inhalation omeprazole 20 mg capsule,delayed 20 mg PO DAILY #90 cap 07/15/20 release calcium carbonate-vitamin D3 600 2 tab PO DAILY #180 tab-cap 08/10/20 mg (1,500 mg)-800 unit tablet blood sugar diagnostic #400 ea 08/29/20 flash glucose scanning reader #1 ea 09/09/20 flash glucose sensor #6 ea 09/09/20 metformin 500 mg tablet 500 mg PO BID #180 tab MDD 1000 mg 09/23/20 montelukast 10 mg tablet 10 mg PO DAILY #90 tab-cap 09/23/20 pen needle, diabetic 31 gauge x #400 ea 10/12/20/16 Humalog KwikPen Insulin 100 4 unit SUBCUT QAC #15 syrg NS 11/02/20 unit/mL subcutaneous glucagon (human recombinant) 1 mg 1 mg SUBCUT ONCE #1 ea 11/11/20 solution for injection magnesium oxide 400 mg (241.3 mg See Rx Instructions PO .COMPLEX 11/16/20 magnesium) tablet #270 tab-cap insulin glargine 100 unit/mL (3 30 unit SC BID #18 syrg 12/12/20 mL) subcutaneous pen empagliflozin 25 mg tablet 25 mg PO DAILY AM #90 tab-cap 01/02/21 albuterol sulfate 2.5 mg IH QID PRN #180 ml 01/04/21 Allergies Allergy/AdvReac Type Severity Reaction Status Date / Time propylene glycol Allergy Severe Rash Verified 01/26/21 14:17 petrolatum,white Allergy Intermediate rash Verified 01/26/21 14:17 [From Petroleum Jelly] adhesive tape Allergy Unknown Skin Rash Verified 01/26/21 14:17 alendronate sodium Allergy Unknown Hives Verified 01/26/21 14:17 azithromycin AdvReac Intermediate dry heaves Verified 01/26/21 14:17 and diarrhea hydrocodone bitartrate AdvReac Intermediate Nausea Verified 01/26/21 14:17 [From Vicodin] liraglutide [From Victoza] AdvReac Intermediate diarhhea Verified 01/26/21 14:17 paraben AdvReac Intermediate Skin Rash Verified 01/26/21 14:17 quaternium 15 AdvReac Intermediate generalized Verified 01/26/21 14:17 rash LANDON Inhibitors AdvReac Unknown COUGH,DYSPN Verified 01/26/21 14:17 EA oxycodone HCl [From Percocet] AdvReac Unknown NAUSEA/VOMI Verified 01/26/21 14:17 TING fragranced creams Allergy Intermediate Skin Rash Uncoded 01/26/21 14:17 parabin wax Allergy Intermediate Skin Rash Uncoded 01/26/21 14:17 diogolidinyl AdvReac Severe Skin Rash Uncoded 01/26/21 14:17 bisphenal AdvReac Intermediate Skin Rash Uncoded 01/26/21 14:17 General BRUNA: 3 [facility] Medical History Allergic rhinitis Anemia (02/11/14) Suspect chronic dz/bone marrow suppression s/p breast CA tx (radiation); s/p GI workup (possible AVMs?), NL B12/folate, elevated Epo, NL retic count; chronic iron supplementation Atherosclerosis of both carotid arteries (11/12/16) 10/2016 [facility] [place] Consult: carotid US showing 16-49% stenosis both internal carotids Recommend annual carotid US Breast CA R 2002, L2003 s/p bilateral lumpectomy. S/P XRT and Tamoxifen. Chronic GI bleeding Chronic obstructive airway disease (06/04/12) [facility] [place] Pulmonology (Dr. Cruz) Moderate-very severe Last OV & PFTs 08/21/16 [facility] [place] Night-time Oxygen Per pulmonolgy() Severe-very severe KONRAD 10/31/16 CKD (chronic kidney disease) Compression fracture of lumbar vertebra (03/14/17) Depression (11/30/02) s/p of brother (on SSRI for short time) Diabetes mellitus (11/27/04) Dx'ed early Goal A1C <7.5% DJD (degenerative joint disease) (02/04/14) Lumbar spine--multiple level on MRI Surgery 10/2011, [facility] Dr. Smith Essential hypertension (05/16/04) H/O laminectomy L5S1 Headache Heart murmur 07/11/2016 echo: mild-moderate mitral regurgitation Hiatal hernia (02/11/14) Smaller portions Endoscopy 10/04 anemia (nothing found), [facility] [place] Hyperlipidemia (03/18/07) Pt on high intensity statin therapy Hypomagnesemia (03/04/17) Intraabdominal calcification (11/14/15) Incidental finding on CT 2 mm between bladder and uterus, no further eval required, AOC Iron deficiency anemia (01/02/17) S/p colo & EGD 05/2015, then capsule endoscopy & push enteroscopy with no definitive etiology identified; 11/14/2017: repeat colonoscopy (due to return of anemia) showing a colonic angioectasia, which may have been source of bleeding & anemia (no overt bleeding found). Fe supplementation & monitor Left renal artery stenosis (08/30/16) 08/21/16 [facility] [place] Vascular Surgery consult: moderate-severe stenosis; given well- controlled HTN & normal kidney function, renal artery intervention not indicated at this t 10/2016: 3 mo f/u renal duplex US showing >60% stenosis with decent blood flow to L kidney Consider stent placement if BP becomes poorly controlled or renal function begins to deteriorate Leg cramps (04/01/14) Low Mg+ --> supplementation helped, but caused diarrhea; handout on dietary Mg+ given Microalbuminuria due to type 2 diabetes mellitus Obstructive sleep apnea (03/02/14) Bipap w/ 2L 02 09/06/2019 Osteopenia (02/14/16) DEXA 02/14/16: Fem neck t-score -1.2 --> WHO FRAX major osteoporotic 13% & hip fx 1.3% risk --> does not qualify for bisphosphonates --> Ca & vit D 03/2017 L3 compression fx --> re-calc WHO FRAX major osteoporotic 21% & hip fx 2.3% risk --> now qualifies for bisphosphonate tx, started 03/2017 Probable allergic rxn to Alendronate (1st pill Sat, and stayed thru today (but no worsening), 07/05. Agree to STOP for now. 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 Dr Agee H/O laminectomy (~10/06/12) L5S1 Huyen Frazier, Dr. Garay Oophrectomy, Right (~2007) For unknown reason Tooth Extractions Multiple Family History Sister Breast cancer Mother , 89 Alzheimer's dementia Breast cancer Father , AGE 75 Alcohol abuse Cirrhosis Sister Neoplasm uterine CA Sister Heart disease Brother Heart disease Niece Breast cancer Social History (Updated 01/26/21 @ 21:33 by Jonny Frost) Smoking/Tobacco Use Status: Former Tobacco Use Quit Date: 09/02/00 Pack-years: 37 Tobacco: How many years used: 25 Smoking risk assessment performed?: Yes Alcohol Intake: former Details: none Drug use: Never Substance use type: does not use Adopted: No Caregiver/Support person: No Foster care: No Household members: spouse Number of Children: 4 Communication Needs: None Pets and animals: No Current gender identity: female What type of physical activity do you participate in: regular exercise Duration: < 15 minutes/day Frequency: 3-4 times per week Mell/Caodaism: Scientologist Seatbelt use: always Drive intox or ride w/intox lifter driver: No Working smoke detector in home: Yes Fire extinguisher in home: Yes Carbon monox detector in home: Yes Do you feel safe at home: Yes Do you feel safe in your relationship?: Yes Additional Social history: Lives with in [place]. 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 She has 11 grandkids who all live close.
--- NOTE | 2021-02-04 18:00 | DI.CT_ITS ---
Exam(s) CT CHEST PE CTA EXAM: CT CHEST PE CTA CLINICAL HISTORY: hypoxia post cardiac catheterization. TECHNIQUE: Imaging Protocol: Axial CT angiography was performed with multi-slice acquisition and mu lti-planar and/or 3D reconstructions. CONTRAST MATERIAL: Intravenous: Omnipaque 350 Contrast volume:structured data in ml COMPARISON: CT CT CHEST PE CTA from 05/14/2020 FINDINGS: CT angiography of the chest was performed with intravenous infusion of 65 cc of Omnipaque 350. The lungs are predominantly clear with moderate central lobular emphysema. No pleural effusion. Trac heobronchial tree appears intact. No evidence of pulmonary embolic disease. Thoracic aorta is of normal diameter, no thoracic aortic an eurysm or dissection, major branch vessels appear intact. No mediastinal or hilar adenopathy. Images obtained through the upper abdomen show unremarkable appearance of the visualized portions of the liver, spleen, pancreas, adrenals, and kidneys. Note is made of apparent wall thickening of the distal esophagus, endoscopic correlation may be obtai joseph if clinically appropriate. IMPRESSION: Negative CT angiogram of the chest. No evidence of pulmonary embolic disease. Incidental finding of wall thickening of the distal esophagus, inflammatory or neoplastic disease not excluded, endoscopic correlation may be obtained if clinically appropriate. RADIATION DOSE DELIVERED: 400.67mGy.cm Total DLP 400.67mGy.cm Total DLP DATA REPOSITORY: All CT scans at this facility are submitted to the National Radiology Data Registry (NRDR) Dose Index Registry (DIR) with the [employer] (ACR). RADIATION OPTIMIZATION: All CT scans at this facility use at least one of these dose optimization te chniques: automated exposure control; mA and/or kV adjustment per patient size (includes targeted exa ms where dose is matched to clinical indication); or iterative reconstruction.
[2021-02-04 18:06] LABS: Abs Immature Grans 0.34 10^3/uL (0.0-0.06); Absolute Basophil Count 0.02 10^3/uL (0.0-0.2); Absolute Eosinophil Count 0.13 10^3/uL (0.0-0.7); Absolute Lymphocyte Count 1.09 10^3/uL (1.2-3.4); Absolute Neutrophil Count 1.62 10^3/uL (1.2-6.7); Basophils % 0.6; Eosinophils % 3.6; HCT 37.3 % (36.0-46.0); HGB 11.7 g/dL (11.2-15.7); Immature Grans % 9.4; Lymphocytes % 30.3; MCH 30.9 pg (27.0-33.0); MCHC 31.4 % (32.0-36.0); MCV 98.4 fL (80-95); MPV 8.7 fL (8.0-11.0); Monocytes % 11.1; Nucleated RBC 0 %; Platelet Count 256 10^3/uL (130-400); RBC 3.79 10^6/uL (3.93-5.22); RDW 16.1 % (11.7-14.6); RDW-SD 57.1 fL
[2021-02-04 18:29] LABS: ALT 28 U/L (14-59); AST 17 U/L (15-37); Albumin 3.7 g/dL (3.4-5.0); Alkaline Phosphatase 56 U/L (46-116); Anion Gap 5.4 mmol/L (3-11); BUN 31 mg/dL (7-18); Bilirubin, Total 0.2 mg/dL (0.2-1.0); CO2 31.6 mmol/L (21.0-32.0); CREATININE 1.2 mg/dL (0.55-1.02); Chloride 104 mmol/L (98-107); Estimated GFR 44.29 (mL/min/1.73m2); Glucose 293 mg/dL (74-106); Magnesium 2.2 mg/dL (1.8-2.4); Potassium 4.3 mmol/L (3.5-5.1); Sodium 141 mmol/L (136-145); Total Protein 7.6 g/dL (6.4-8.2)
[2021-02-04 18:33] LABS: NT-proBNP 1101 pg/mL (<300)
[2021-02-04 18:37] LABS: Troponin I < 0.05 ng/mL (<0.06)
[2021-02-04 18:41] LABS: Source Nasal/Nares
--- NOTE | 2021-02-04 18:43 | W.ED.GENAD ---
Discharge Plan Disposition Patient Disposition: [facility] Condition: Critical Discharge Details Clinical Impression: ACS (acute coronary syndrome) Primary Care Provider: María Mendoza ED Provider: Kelli Patel Home Meds and New Rx's Prescriptions: No Action (DME) FreeStyle Basia 2 Dodson Misc See Rx Instructions .ROUTE .MEDSUPPLY Qty: 1 RF: 0 (DME) FreeStyle Basia 2 Sensor Kit See Rx Instructions .ROUTE .MEDSUPPLY Qty: 6 RF: 3 (DME) nebulizer and compressor device See Dose Instructions .ROUTE .MEDSUPPLY Qty: 1 RF: 0 Glucagon Emergency Kit (human) 1 mg recon soln 1 mg subcut ONCE Qty: 1 RF: 0 Lantus Solostar U-100 Insulin 100 unit/mL (3 mL) insulin pen 30 unit SC BID Qty: 18 RF: 3 Oxygen EACH NS At Night Qty: 2 RF: 0 multivitamin [Daily Multi-Vitamin] 1 EACH tablet 1 ea PO DAILY RF: 0 albuterol sulfate [ProAir HFA] 8.5 GM HFA aerosol inhaler 1 puff Inhalation Q4H PRN Qty: 2 RF: 3 (DME) lancets [Sure Comfort Lancets] 1 EACH misc 1 ea Miscellaneous DAILY Qty: 1 RF: 3 acetaminophen 500 MG tablet 1,000 mg PO TID PRNQty: 90 RF: 0 cyanocobalamin (vitamin B-12) 1,000 mcg tablet 1,000 mcg PO DAILY Qty: 90 RF: 3 Combivent Respimat 20-100 mcg/actuation mist 1 - 2 puff Inhalation .Q4-6H PRN (Reason: shortness of breath or wheezing) Qty: 3 RF: 3 budesonide-formoterol [Symbicort] 160-4.5 mcg/actuation HFA aerosol inhaler 2 puff Inhalation BID Qty: 3 RF: 3 Incruse Ellipta 62.5 mcg/actuation blister with device 62.5 mcg Inhalation DAILY Qty: 3 RF: 3 omeprazole 20 mg capsule,delayed release(DR/EC) 20 mg PO DAILY Qty: 90 RF: 3 calcium carbonate-vitamin D3 600 mg(1,500mg) -800 unit tablet 2 tab PO DAILY Qty: 180 RF: 3 (DME) Blood Glucose Test Strip See Rx Instructions .ROUTE .MEDSUPPLY Qty: 400 RF: 0 metformin 500 mg tablet 500 mg PO BID MDD 1000 mg Qty: 180 RF: 3 montelukast [Singulair] 10 mg tablet 10 mg PO DAILY Qty: 90 RF: 3 (DME) pen needle, diabetic [Lite Touch Insulin Pen Celina] 31 gauge x 3/16 needle See Rx Instructions .ROUTE .MEDSUPPLY Qty: 400 RF: 3 insulin lispro [Humalog KwikPen Insulin] 100 unit/mL insulin pen 4 unit subcut QAC Qty: 15 RF: 3 magnesium oxide 400 mg (241.3 mg magnesium) tablet See Rx Instructions PO .COMPLEX Qty: 270 RF: 3 Jardiance 25 mg tablet 25 mg PO DAILY AM Qty: 90 RF: 3 albuterol sulfate 2.5 mg /3 mL (0.083 %) solution for nebulization 2.5 mg IH QID PRN (Reason: bronchospasm) Qty: 180 RF: 6 clopidogrel 75 mg tablet 75 mg PO DAILY RF: 0 metoprolol succinate 50 mg tablet extended release 24 hr 50 mg PO DAILY RF: 0 nitroglycerin 0.4 mg tablet, sublingual 0.4 mg sublingual Q5M PRNRF: 0 hydrochlorothiazide 50 mg tablet 25 mg PO DAILY RF: 0 rosuvastatin [Crestor] 20 mg tablet 40 mg PO DAILY RF: 0 valsartan 80 mg tablet 80 mg PO DAILY RF: 0 aspirin [Aspir-81] 81 MG tablet,delayed release (DR/EC) 81 mg PO DAILY Qty: 90 RF: 3 ferrous sulfate 325 mg (65 mg iron) tablet 650 mg PO TID RF: 0 Jardiance 25 mg tablet 25 mg PO DAILY RF: 0 hydrochlorothiazide 50 mg tablet 50 mg PO DAILY RF: 0 Discharge Data Discharge Date/Time-TO BE ENTERED AT DEPARTURE: 02/04/21 23:50 Medical Decision Making Patient is asymptomatic at rest aside from hypoxia, she has 86% on room air, she does not typically use oxygen during the day but it is 88% of her norm Patient placed on oxygen, 2 L, 91%, asymptomatic at rest, initial EKG without evidence of acute ST elevation AR Negative troponin, no current chest pain or shortness of breath Repeat EKG peaked T waves in V4 V5, change from ago she of your place prior EKG, mild flattening in 2, 3, aVF, please see EKG interpretation in system [facility] cardiology was consulted, Dr. Mejia returned phone call at 10:45 PM and reviewed the EKG findings and diagnostic blood work and request that we start heparin bolus and drip Patient was reevaluated and currently asymptomatic, resting comfortably in room, she is aware that we will likely be transferring her to [facility] Blood pressure is 130/55 at time of reevaluation and patient is alert and oriented We are repeat blood glucose at 9:00, 180 Case discussed again with Dr. Ribeiro, cardiology at [facility] and Dr. Condon, ER physician at [facility], they have accepted the patient in transport Patient has remained stable, she is chest pain-free She is receiving bolus and infusion of IV heparin, recheck blood glucose at 1130 120 Repeat EKG shows mild improvement of hyperacute T wave in V4 and V5, persistent change in V3, faxed to [facility] to transport at 2345 patient stable at time of reevaluation Differential Diagnosis Differential Diagnosis: Elevation AR, angina, pulmonary embolism, CHF HPI General Mode of arrival: ambulatory. Date/Time Provider Initiated Documentation: 02/04/21 17:34. Limitations to Documentation: no limitations. Information obtained by: patient. HPI Narrative: This 70-year-old female with history of non-ST elevation AR, hypertension, hyperlipidemia, insulin-dependent diabetes with recent stent placement on 27 January presents with shortness of breath. She states she had a cough since she was discharged from [facility] on the . She states that the cough has been persistent, mostly during the day however her shortness of breath has been gradually worsening since her initial discharge. She states today she was very dyspneic with ambulation and her oxygen was 77% on room air which is unusual for her. She does use 2 L of oxygen at night. Her baseline oxygenation status with her history of COPD is 88% and this was reportedly normal for her. She denies any calf pain or swelling. She denies any orthopnea or weight gain. She denies any fever or chills. She denies known contacts. She states she actually felt great test on time. She was placed on Plavix and her simvastatin dose was increased reportedly. Denies any additional complaints at this time. Denies hemoptysis. Denies history of DVT or PE. Related Data Home Medications Medication Instructions Recorded Confirmed aspirin [Aspir-81] 81 mg PO DAILY #90 03/30/13 01/26/21 multivitamin [Daily Multi-Vitamin] 1 ea PO DAILY 03/19/17 02/04/21 albuterol sulfate [ProAir HFA] 1 puff INHALATION Q4H PRN #2 04/02/17 01/12/21 inhaler lancets [Sure Comfort Lancets] #1 box 06/24/17 01/12/21 acetaminophen 1,000 mg PO TID PRN #90 tab-cap 12/16/17 01/12/21 cyanocobalamin (vitamin B-12) 1,000 mcg PO DAILY #90 tab-cap 05/07/18 02/04/21 1,000 mcg tablet nebulizer and compressor #1 each 08/21/18 01/12/21 ipratropium 20 mcg-albuterol 100 1 - 2 puff INHALATION .Q4-6H PRN 10/17/18 02/04/21 mcg/actuation mist for inhalation #3 device budesonide-formoterol HFA 160 2 puff INHALATION BID #3 inhaler 03/11/20 02/04/21 mcg-4.5 mcg/actuation aerosol inhaler umeclidinium 62.5 mcg/actuation 62.5 mcg INHALATION DAILY #3 disk 03/11/20 01/26/21 blister powder for inhalation ferrous sulfate 650 mg PO TID 05/14/20 02/04/21 omeprazole 20 mg capsule,delayed 20 mg PO DAILY #90 cap 07/15/20 02/04/21 release calcium carbonate-vitamin D3 600 2 tab PO DAILY #180 tab-cap 08/10/20 01/26/21 mg (1,500 mg)-800 unit tablet blood sugar diagnostic #400 ea 08/29/20 01/12/21 flash glucose scanning reader #1 ea 09/09/20 01/12/21 flash glucose sensor #6 ea 09/09/20 01/12/21 metformin 500 mg tablet 500 mg PO BID #180 tab MDD 1000 mg 09/23/20 02/04/21 montelukast 10 mg tablet 10 mg PO DAILY #90 tab-cap 09/23/20 02/04/21 pen needle, diabetic 31 gauge x #400 ea 10/12/20 01/12/21/ Humalog KwikPen Insulin 100 4 unit SUBCUT QAC #15 syrg NS 11/02/20 01/26/21 unit/mL subcutaneous glucagon (human recombinant) 1 mg 1 mg SUBCUT ONCE #1 ea 11/11/20 02/04/21 solution for injection magnesium oxide 400 mg (241.3 mg See Rx Instructions PO .COMPLEX 11/16/20 02/04/21 magnesium) tablet #270 tab-cap insulin glargine 100 unit/mL (3 30 unit SC BID #18 syrg 12/12/20 02/04/21 mL) subcutaneous pen empagliflozin 25 mg tablet 25 mg PO DAILY AM #90 tab-cap 01/02/21 02/04/21 albuterol sulfate 2.5 mg IH QID PRN #180 ml 01/04/21 01/26/21 clopidogrel 75 mg tablet 75 mg PO DAILY 02/01/21 02/04/21 hydrochlorothiazide 50 mg tablet 25 mg PO DAILY tab 02/01/21 02/04/21 metoprolol succinate 50 mg 50 mg PO DAILY 02/01/21 02/04/21 tablet,extended release 24 hr nitroglycerin 0.4 mg sublingual 0.4 mg SUBLINGUAL Q5M PRN 02/01/21 02/04/21 tablet rosuvastatin 20 mg tablet 40 mg PO DAILY tab 02/01/21 02/04/21 valsartan 80 mg tablet 80 mg PO DAILY 02/01/21 02/04/21 empagliflozin [Jardiance] 25 mg PO DAILY 02/04/21 02/04/21 hydrochlorothiazide 50 mg PO DAILY 02/04/21 02/04/21 Previous Rx's Medication Instructions Recorded lancets [Sure Comfort Lancets] #1 box 06/24/17 cyanocobalamin (vitamin B-12) 1,000 mcg PO DAILY #90 tab-cap 05/07/18 1,000 mcg tablet nebulizer and compressor #1 each 08/21/18 ipratropium 20 mcg-albuterol 100 1 - 2 puff INHALATION .Q4-6H PRN 10/17/18 mcg/actuation mist for inhalation #3 device budesonide-formoterol HFA 160 2 puff INHALATION BID #3 inhaler 03/11/20 mcg-4.5 mcg/actuation aerosol inhaler umeclidinium 62.5 mcg/actuation 62.5 mcg INHALATION DAILY #3 disk 03/11/20 blister powder for inhalation omeprazole 20 mg capsule,delayed 20 mg PO DAILY #90 cap 07/15/20 release calcium carbonate-vitamin D3 600 2 tab PO DAILY #180 tab-cap 08/10/20 mg (1,500 mg)-800 unit tablet blood sugar diagnostic #400 ea 08/29/20 flash glucose scanning reader #1 ea 09/09/20 flash glucose sensor #6 ea 09/09/20 metformin 500 mg tablet 500 mg PO BID #180 tab MDD 1000 mg 09/23/20 montelukast 10 mg tablet 10 mg PO DAILY #90 tab-cap 09/23/20 pen needle, diabetic 31 gauge x #400 ea 10/12/2011/15 Humalog KwikPen Insulin 100 4 unit SUBCUT QAC #15 syrg NS 11/02/20 unit/mL subcutaneous glucagon (human recombinant) 1 mg 1 mg SUBCUT ONCE #1 ea 11/11/20 solution for injection magnesium oxide 400 mg (241.3 mg See Rx Instructions PO .COMPLEX 11/16/20 magnesium) tablet #270 tab-cap insulin glargine 100 unit/mL (3 30 unit SC BID #18 syrg 12/12/20 mL) subcutaneous pen empagliflozin 25 mg tablet 25 mg PO DAILY AM #90 tab-cap 01/02/21 albuterol sulfate 2.5 mg IH QID PRN #180 ml 01/04/21 Allergies Allergy/AdvReac Type Severity Reaction Status Date / Time propylene glycol Allergy Severe Rash Verified 01/26/21 14:17 petrolatum,white Allergy Intermediate rash Verified 01/26/21 14:17 [From Petroleum Jelly] adhesive tape Allergy Unknown Skin Rash Verified 01/26/21 14:17 alendronate sodium Allergy Unknown Hives Verified 01/26/21 14:17 azithromycin AdvReac Intermediate dry heaves Verified 01/26/21 14:17 and diarrhea hydrocodone bitartrate AdvReac Intermediate Nausea Verified 01/26/21 14:17 [From Vicodin] liraglutide [From Victoza] AdvReac Intermediate diarhhea Verified 01/26/21 14:17 paraben AdvReac Intermediate Skin Rash Verified 01/26/21 14:17 quaternium 15 AdvReac Intermediate generalized Verified 01/26/21 14:17 rash LANDON Inhibitors AdvReac Unknown COUGH,DYSPN Verified 01/26/21 14:17 EA oxycodone HCl [From Percocet] AdvReac Unknown NAUSEA/VOMI Verified 01/26/21 14:17 TING fragranced creams Allergy Intermediate Skin Rash Uncoded 01/26/21 14:17 parabin wax Allergy Intermediate Skin Rash Uncoded 01/26/21 14:17 diogolidinyl AdvReac Severe Skin Rash Uncoded 01/26/21 14:17 bisphenal AdvReac Intermediate Skin Rash Uncoded 01/26/21 14:17 General Stated Complaint: SOB BRUNA: 2 Review of Systems Narrative: Review of systems obtained x7 aside from where indicated in HPI [facility] Medical History Allergic rhinitis Anemia (02/11/14) Suspect chronic dz/bone marrow suppression s/p breast CA tx (radiation); s/p GI workup (possible AVMs?), NL B12/folate, elevated Epo, NL retic count; chronic iron supplementation Atherosclerosis of both carotid arteries (11/12/16) 10/2016 [facility] Vascular Consult: carotid US showing 16-49% stenosis both internal carotids Recommend annual carotid US Breast CA R 2001, L2003 s/p bilateral lumpectomy. S/P XRT and Tamoxifen. Chronic GI bleeding Chronic obstructive airway disease (06/04/12) [facility] Pulmonology (Dr. Cruz) Moderate-very severe Last OV & PFTs 08/21/16 [facility] Night-time Oxygen Per pulmonolgy() Severe-very severe KONRAD 10/31/16 CKD (chronic kidney disease) Compression fracture of lumbar vertebra (03/14/17) Depression (11/30/02) s/p of brother (on SSRI for short time) Diabetes mellitus (11/27/04) Dx'ed early Goal A1C <7.5% DJD (degenerative joint disease) (02/04/14) Lumbar spine--multiple level on MRI Surgery 10/2011, [facility] Dr. Smith Essential hypertension (05/16/04) H/O laminectomy L5S1 Headache Heart murmur 07/11/2016 echo: mild-moderate mitral regurgitation Hiatal hernia (02/11/14) Smaller portions Endoscopy 10/04 anemia (nothing found), [facility] Hyperlipidemia (03/18/07) Pt on high intensity statin therapy Hypomagnesemia (03/04/17) Intraabdominal calcification (11/14/15) Incidental finding on CT 2 mm between bladder and uterus, no further eval required, [facility] Iron deficiency anemia (01/02/17) S/p colo & EGD 05/2015, then capsule endoscopy & push enteroscopy with no definitive etiology identified; 11/14/2017: repeat colonoscopy (due to return of anemia) showing a colonic angioectasia, which may have been source of bleeding & anemia (no overt bleeding found). Fe supplementation & monitor Left renal artery stenosis (08/30/16) 08/21/16 [facility] Vascular Surgery consult: moderate-severe stenosis; given well-controlled HTN & normal kidney function, renal artery intervention not indicated at this t 10/2016: 3 mo f/u renal duplex US showing >60% stenosis with decent blood flow to L kidney Consider stent placement if BP becomes poorly controlled or renal function begins to deteriorate Leg cramps (04/01/14) Low Mg+ --> supplementation helped, but caused diarrhea; handout on dietary Mg+ given Microalbuminuria due to type 2 diabetes mellitus Obstructive sleep apnea (03/02/14) Bipap w/ 2L 02 09/06/2019 Osteopenia (02/14/16) DEXA 02/14/16: Fem neck t-score -1.2 --> WHO FRAX major osteoporotic 13% & hip fx 1.3% risk --> does not qualify for bisphosphonates --> Ca & vit D 03/2017 L3 compression fx --> re-calc WHO FRAX major osteoporotic 21% & hip fx 2.3% risk --> now qualifies for bisphosphonate tx, started 03/2017 Probable allergic rxn to Alendronate (1st pill Sat, and stayed thru today (but no worsening), 07/05. Agree to STOP for now. 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 Dr Agee H/O laminectomy (~10/06/12) L5S1 Huyen Frazier, Dr. Garay Oophrectomy, Right (~2007) For unknown reason Tooth Extractions Multiple Family History Sister Breast cancer Mother , 89 Alzheimer's dementia Breast cancer Father , AGE 75 Alcohol abuse Cirrhosis Sister Neoplasm uterine CA Sister Heart disease Brother Heart disease Niece Breast cancer Social History (Updated 01/26/21 @ 21:33 by Jonny Frost) Smoking/Tobacco Use Status: Former Tobacco Use Quit Date: 09/02/00 Pack-years: 37 Tobacco: How many years used: 25 Smoking risk assessment performed?: Yes Alcohol Intake: former Details: none Drug use: Never Substance use type: does not use Adopted: No Caregiver/Support person: No Foster care: No Household members: spouse Number of Children: 4 Communication Needs: None Pets and animals: No Current gender identity: female What type of physical activity do you participate in: regular exercise Duration: < 15 minutes/day Frequency: 3-4 times per week Mell/Moravian: Hindu Seatbelt use: always Drive intox or ride w/intox fast food delivery driver: No Working smoke detector in home: Yes Fire extinguisher in home: Yes Carbon monox detector in home: Yes Do you feel safe at home: Yes Do you feel safe in your relationship?: Yes Additional Social history: Lives with in [place]. 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 She has 11 grandkids who all live close. Exam Const General: cooperative and no acute distress Neck Neck: no JVD Chest Chest: normal inspection of the chest Resp Effort & Inspection: normal respiratory effort Auscultation: clear to auscultation bilaterally Cardio Rate: regular rate Rhythm: regular rhythm GI Inspection: normal to inspection Other: No edema Skin General skin exam: no rashes or lesions noted Neuro General: patient alert and patient oriented x3 Extrem Other: No calf swelling or tenderness appreciated she Distal pulses intact Course Vital Signs Vital signs: Vital Signs Temperature 37.0 C 02/04/21 17:45 Pulse 72 02/04/21 17:45 Blood Pressure 170/44 H 02/04/21 17:45 Pulse Oximetry 93 02/04/21 17:45 Temperature 37.0 C 02/04/21 17:45 Temperature Source Temporal Artery Scan 02/04/21 17:45 Pulse 72 02/04/21 17:45 Blood Pressure 170/44 H 02/04/21 17:45 Blood Pressure Position Sitting 02/04/21 17:45 Pulse Oximetry 93 02/04/21 17:45 Oxygen Delivery Method Nasal Cannula 02/04/21 17:45 Oxygen Flow Rate 0 02/04/21 17:45 Pain Level 0 02/04/21 17:45 Lab/Test Results Lab/Test Results: Laboratory Tests Range/Units 02/04/21 02/04/21 02/04/21 17:55 17:55 18:10 WBC (4.4-10.8) 10^3/uL 3.60 L RBC (3.93-5.22) 10^6/uL 3.79 L Hgb (11.2-15.7) g/dL 11.7 Hct (36.0-46.0) % 37.3 MCV (80-95) fL 98.4 H MCH (27.0-33.0) pg 30.9 MCHC (32.0-36.0) % 31.4 L RDW (11.7-14.6) % 16.1 H Plt Count (130-400) 10^3/uL 256 MPV (8.0-11.0) fL 8.7 Sodium (136-145) mmol/L 141 Potassium (3.5-5.1) mmol/L 4.3 Chloride (98-107) mmol/L 104 Carbon Dioxide (21.0-32.0) mmol/L 31.6 Anion Gap (3-11) mmol/L 5.4 BUN (7-18) mg/dL 31 H Creatinine (0.55-1.02) mg/dL 1.2 H Estimated GFR/1.73 m2 (mL/min/1.73m2) 44.29 Glucose (74-106) mg/dL 293 H Calcium (8.5-10.1) mg/dL 9.0 Magnesium (1.8-2.4) mg/dL 2.2 Total Bilirubin (0.2-1.0) mg/dL 0.2 AST (15-37) U/L 17 ALT (14-59) U/L 28 Alkaline Phosphatase (46-116) U/L 56 Troponin I (<0.06) ng/mL < 0.05 NT-Pro-B Natriuret Pep (<300) pg/mL 1101 H Total Protein (6.4-8.2) g/dL 7.6 Albumin (3.4-5.0) g/dL 3.7 COVID-19 Source Range/Units 02/04/21 18:30 WBC (4.4-10.8) 10^3/uL RBC (3.93-5.22) 10^6/uL Hgb (11.2-15.7) g/dL Hct (36.0-46.0) % MCV (80-95) fL MCH (27.0-33.0) pg MCHC (32.0-36.0) % RDW (11.7-14.6) % Plt Count (130-400) 10^3/uL MPV (8.0-11.0) fL Sodium (136-145) mmol/L Potassium (3.5-5.1) mmol/L Chloride (98-107) mmol/L Carbon Dioxide (21.0-32.0) mmol/L Anion Gap (3-11) mmol/L BUN (7-18) mg/dL Creatinine (0.55-1.02) mg/dL Estimated GFR/1.73 m2 (mL/min/1.73m2) Glucose (74-106) mg/dL Calcium (8.5-10.1) mg/dL Magnesium (1.8-2.4) mg/dL Total Bilirubin (0.2-1.0) mg/dL AST (15-37) U/L ALT (14-59) U/L Alkaline Phosphatase (46-116) U/L Troponin I (<0.06) ng/mL NT-Pro-B Natriuret Pep (<300) pg/mL Total Protein (6.4-8.2) g/dL Albumin (3.4-5.0) g/dL COVID-19 Source Nasal/nares Critical Care Time Critical Care Time Critical Care Time: Yes Total Critical Care Time: 35 Attestation: Telemetry monitoring, cardiology consultation, heparin bolus and drip, repeat EKG and troponin level, transfer likely to higher level of care
[2021-02-04 18:49] LABS: PTT Activated 22.9 sec (21.0-27.5); Prothrombin Time 9.6 sec (9.3-11.0)
[2021-02-04 19:20] LABS: Diff Comment Diff Reviewed
[2021-02-04] MEDS: Omnipaque 350 MG/ML 100 ML BTL IJ (19:39)
[2021-02-04] MEDS: Normal Saline - Diluent 50 ML VIAL IV (19:40)
--- NOTE | 2021-02-04 20:15 | RT.EKG_ITS ---
APPROVED REPORT Exam: Resting ECG Reason for Exam: shortness of breath Patient Location: E HR:68 bpm ECG Measurements Heart Rate 68 AXIS NC 174 P 71 QRSd 86 QRS 39 QT 417 T 20 QTc 446 Conclusion Sinus rhythm...normal P axis, V-rate 60- 99 Physician: 2mm J point elevation in V4, 1mm non-tombstoning elevation in V2,3,5. inverted t wave in l ead 3. No recip depressions. Previous ekg from today does show j point elevation in V2-5, but not to the degree of this ekg. Does not currently meet STEMI criterion
[2021-02-04 20:31] LABS: COVID-19 PCR Negative (Negative)
--- NOTE | 2021-02-04 20:39 | DI.VRAD_ITS ---
PROCEDURE INFORMATION: Exam: CTA Chest With Contrast Exam date and time: 02/04/2021 6:12 PM Age: 70 years old Clinical indication: Other: Hypoxia post cardiac catheterization TECHNIQUE: Imaging protocol: Computed tomographic angiography of the chest with contrast. 3D rendering (Not supervised by radiologist): MIP and/or 3D reconstructed images were created by the technologist. COMPARISON: CT CHEST PE CTA 05/14/2020 5:31 PM FINDINGS: Pulmonary arteries: Normal. No pulmonary emboli. Aorta: Aortic and coronary atherosclerosis. Lungs: Unremarkable. No consolidation. No masses. Pleural spaces: Unremarkable. No pneumothorax. No pleural effusion. Heart: Unremarkable. No cardiomegaly. No pericardial effusion. Mediastinal space: Mild wall thickening in the distal esophagus up to 1 cm. Correlate with endoscopy if clinically relevant. . Lymph nodes: Unremarkable. No enlarged lymph nodes. Bones/joints: Unremarkable. No acute fracture. Soft tissues: Unremarkable. IMPRESSION: 1. No pulmonary embolism 2. Mild wall thickening in the distal esophagus up to 1 cm. Correlate with endoscopy if clinically relevant. . Dictated and Authenticated by: Mae Pacheco MD. Ordering:SAGAR Pereira MD
[2021-02-04 21:30] LABS: Troponin I < 0.05 ng/mL (<0.06)
--- NOTE | 2021-02-04 23:00 | RT.EKG_ITS ---
APPROVED REPORT Exam: Resting ECG Reason for Exam: dyspnea, acs Patient Location: E HR:64 bpm ECG Measurements Heart Rate 64 AXIS NH 173 P 77 QRSd 109 QRS 39 QT 425 T 19 QTc 437 Conclusion Sinus rhythm...normal P axis, V-rate 60- 99 Physician: Persistant ST elevation in V2-4, slightly improved from prior ekg. no other significant ch rissa, no stemi
[2021-02-04] MEDS: Heparin 5,000 UNITS/ML VIAL 4300 UNITS IV (23:11)
== END 2021-02-04 23:50 | disposition short-term general hospital (02) ==
PROVIDERS: Physician Assistant; Emergency Provider Physician Assistant; PCP Nurse Practitioner Family
DX: R06.02 Shortness of breath (principal); I24.8 Other forms of acute ischemic heart disease; R09.02 Hypoxemia; R94.31 Abnormal electrocardiogram [ECG] [EKG]; J44.9 Chronic obstructive pulmonary disease, unspecified; Z03.818 Encounter for observation for suspected exposure to other biological agents ruled out
CPT/HCPCS: 36415; 36416; 71275; 80053; 82962; 87635; 93005; 96365; 96376; 99291; 83735; 83880; 84484; 85025; 85610; 85730; 93010; J1644; J3490

== ENCOUNTER 2021-03-01 10:00 | Outpatient (RCR) | payer MEDICARE, BC, SELFPAY | END 2021-03-01 23:59 | disposition home or self-care (01) | LOC: CR 10:00 | PROVIDERS: PCP Nurse Practitioner Family; Visit Provider Family Medicine | DX: Z51.89 Encounter for other specified aftercare (principal); I25.2 Old myocardial infarction; Z95.5 Presence of coronary angioplasty implant and graft | CPT/HCPCS: S9472 ==

== ENCOUNTER 2021-03-07 18:48 | Inpatient (IN) | payer MEDICARE, BC, SELFPAY ==
[2021-03-07] VITALS (38 sets, daily range): BP systolic 119–179; BP diastolic 38–68; PULSE 68–88; RESP 2–24; TEMP 36.4–36.7; O2SAT 76–99
--- NOTE | 2021-03-07 18:45 | RT.EKG_ITS ---
APPROVED REPORT Exam: Resting ECG Reason for Exam: sob Patient Location: E HR:76 bpm ECG Measurements Heart Rate 76 AXIS FL 167 P 75 QRSd 78 QRS 39 QT 394 T 40 QTc 445 Conclusion Sinus rhythm...normal P axis, V-rate 60- 99. Peaked T waves in anterior leads, seen in previous EKG. No STEMI.
[2021-03-07 19:13] LABS: Abs Immature Grans 0.01 10^3/uL (0.0-0.06); Absolute Basophil Count 0.02 10^3/uL (0.0-0.2); Absolute Eosinophil Count 0.09 10^3/uL (0.0-0.7); Absolute Lymphocyte Count 0.79 10^3/uL (1.2-3.4); Absolute Monocyte Count 0.33 10^3/uL (0.1-0.8); Absolute Neutrophil Count 1.12 10^3/uL (1.2-6.7); Basophils % 0.8; Eosinophils % 3.8; HCT 37.6 % (36.0-46.0); HGB 11.9 g/dL (11.2-15.7); Immature Grans % 0.4; Lymphocytes % 33.5; MCH 31.5 pg (27.0-33.0); MCHC 31.6 % (32.0-36.0); MCV 99.5 fL (80-95); MPV 8.9 fL (8.0-11.0); Neutrophils % 47.5; Nucleated RBC 0 %; Platelet Count 264 10^3/uL (130-400); RBC 3.78 10^6/uL (3.93-5.22); RDW 17.2 % (11.7-14.6); RDW-SD 62.7 fL; WBC 2.36 10^3/uL (4.4-10.8)
--- NOTE | 2021-03-07 19:14 | DI.CT_ITS ---
Exam(s) CT CHEST PE ABD PELVIS W EXAM: CT CHEST PE ABD PELVIS W CLINICAL HISTORY: hypoxia, diminished. TECHNIQUE: Imaging Protocol: Axial CT angiography was performed with multi-slice acquisition and mu lti-planar and/or 3D reconstructions. CONTRAST MATERIAL: Intravenous: Omnipaque 350 Contrast volume:100 mL COMPARISON: CT CT LUMBAR SPINE WO from 02/28/[address] LUMBAR SPINE WO from 02/28/[address] CHEST PE CTA from 05/14/[address] CHEST PE CTA from 05/14/[address] CHEST PE CTA from 02/04/2021 FINDINGS: CHEST: Pulmonary Arteries: No evidence of filling defect to suggest pulmonary emboli. Tracheobronchial tree: Patent where visualized. Mediastinum and Anjana: No dominant adenopathy or fluid collection. Mild thickening of the esophagus di stally. Pulmonary parenchyma: No consolidation or dominant measurable mass. Moderate centrilobular emphysemat ous changes. Pleura: No effusion or pneumothorax. Heart: The heart is not dilated. Moderate coronary artery calcification. No pericardial effusion. Aorta: Thoracic aorta non-dilated. Atherosclerosis. No evidence of dissection. Bones: Within normal limits for the patient's age. ABDOMEN: Liver: Normal density. No measurable mass. Portal, Superior Mesenteric, and Splenic Veins: Unremarkable. Gallbladder and Biliary Tract: No radiodense calculus or dilation. Pancreas: Normal density, no abnormal calcifications or inflammatory process. Spleen: Normal. Adrenals: There is a stable small less than 1 cm right adrenal nodule. No follow-up is recommended. T he left adrenal gland is unremarkable. Kidneys: Normal size, contour and axis. No radiodense stones or obstructive uropathy. No masses seen. Abdominal Aorta: Abdominal portion non-dilated. Moderate atherosclerosis. Bowel: No obstruction or bowel wall thickening. No evidence of appendicitis. Peritoneal Cavity: No ascites, collection or mesenteric inflammatory response. Lymph Nodes: Within normal limits. Bones: There is a stable L3 compression deformity. Degenerative changes are seen in the spine. Soft Tissues: Unremarkable. PELVIS: Bladder: Symmetric distention, no gross wall thickening. Reproductive Organs: Unremarkable as visualized. Lymph Nodes: Within normal limits. Bones: Within normal limits. IMPRESSION: 1. No evidence of pulmonary embolism, thoracic aortic dissection or aneurysm. 2. Mild thickening of the wall of the distal esophagus. This may represent esophagitis. 3. No acute abdominal or pelvic process. RADIATION DOSE DELIVERED: 1,173.26mGy.cm Total DLP DATA REPOSITORY: All CT scans at this facility are submitted to the National Radiology Data Registry (NRDR) Dose Index Registry (DIR) with the [employer] (ACR). RADIATION OPTIMIZATION: All CT scans at this facility use at least one of these dose optimization te chniques: automated exposure control; mA and/or kV adjustment per patient size (includes targeted exa ms where dose is matched to clinical indication); or iterative reconstruction.
[2021-03-07 19:26] LABS: Source Nasal/Nares
[2021-03-07 19:30] LABS: ALT 36 U/L (14-59); AST 21 U/L (15-37); Alkaline Phosphatase 40 U/L (46-116); Anion Gap 7.7 mmol/L (3-11); BUN 29 mg/dL (7-18); Bilirubin, Total 0.3 mg/dL (0.2-1.0); CO2 33.3 mmol/L (21.0-32.0); CREATININE 1.3 mg/dL (0.55-1.02); Calcium 9.3 mg/dL (8.5-10.1); Chloride 99 mmol/L (98-107); Estimated GFR 40.38 (mL/min/1.73m2); Glucose 253 mg/dL (74-106); NT-proBNP 849 pg/mL (<300); Potassium 3.7 mmol/L (3.5-5.1); Sodium 140 mmol/L (136-145); Total Protein 7.8 g/dL (6.4-8.2)
[2021-03-07 19:31] LABS: ESR 17 mm/hr (0-30)
[2021-03-07 19:38] LABS: Troponin I < 0.05 ng/mL (<0.06)
[2021-03-07 19:49] LABS: C-Reactive Protein 0.13 mg/dL (0.0-0.3)
[2021-03-07] MEDS: Omnipaque 350 MG/ML 100 ML BTL IJ (20:05)
--- NOTE | 2021-03-07 20:05 | ED.GENADUL_ITS ---
Discharge Plan Disposition Condition: Improving Discharge Details Chief Complaint: SOB Admit Date/Time: 03/07/21 22:16 Admit Provider: Jonny Saini Attending Provider: Jonny Saini Primary Care Provider: María Mendoza ED Provider: Kelli Patel Discharge Instructions Activity:: Activity as Tolerated Equipment/Supplies:: No Equipment Needed Diet:: carb consistent heart healthy Discharge Orders Discharge Orders: Discharge Order (Routine); Ordered 03/09/21 Ordered By: Rosie Taylor Discharge Data Discharge Date/Time-TO BE ENTERED AT DEPARTURE: 03/07/21 22:52 Medical Decision Making Patient hypoxic despite being on oxygen, 82% despite 2 L she has been using at home Oxygenation 68% and dyspnea with any sort of exertion which is new for patient No evidence of PE or obvious volume overload on CT scan, BNP improved from prior Patient is feeling symptomatic improvement after 2 DuoNeb quite dyspneic and symptomatic with exertion She also received IV Solu-Medrol She is an insulin-dependent diabetic, we will recheck her blood sugar before she is discharged upstairs pt was accepted for admission by Dr Saini no evidence of bacterial source at time of of my evaluation, therefore no antibiotics were initiated HPI General Mode of arrival: ambulatory . Date/Time Provider Initiated Documentation: 03/07/21 18:49 . Limitations to Documentation: no limitations . Information obtained by: patient . HPI Narrative: This 70-year-old female with recent cardiac catheterization, diabetes, hypertension COPD, presents with report of increasing shortness of breath with hypoxia at home. States that since she was discharged from [facility] a month ago she has not been on oxygen as needed. She states typically on room air she is 88%. Now her oxygenation has been approximately 79% with any sort of exertion. She is been wearing her oxygen continuously secondary to some shortness of breath. She denies any weight gain in fact she is had weight loss. She does not feel as though she is retaining fluid in her abdomen but denies any peripheral edema. She denies history of pulmonary embolism. She denies any fever or chills. She denies any cough. She is fully Covid vaccinated. She denies any additional complaints at this time. Patient did note to triage nurse that she had some right lower quadrant pain, however after my initial evaluation. Patient states that she has persistent right lower quadrant pain for the past several months. She is also s ome intermittent spotting. She denies any exacerbating or alleviating factors. She states exertion states her shortness of breath worse. She denies any chest pain. Related Data Home Medications Medication Instructions Recorded Confirmed aspirin [Aspir-81] 81 mg PO DAILY #90 03/30/13 03/07/21 multivitamin [Daily Multi-Vitamin] 1 ea PO DAILY 03/19/17 03/07/21 albuterol sulfate [ProAir HFA] 1 puff INHALATION Q4H PRN #2 04/02/17 03/07/21 inhaler lancets [Sure Comfort Lancets] #1 box 06/24/17 02/16/21 acetaminophen 1,000 mg PO TID PRN #90 tab-cap 12/16/17 03/07/21 cyanocobalamin (vitamin B-12) 1,000 mcg PO DAILY #90 tab-cap 05/07/18 03/07/21 1,000 mcg tablet nebulizer and compressor #1 each 08/21/18 02/16/21 ipratropium 20 mcg-albuterol 100 1 - 2 puff INHALATION .Q4-6H PRN 10/17/18 03/07/21 mcg/actuation mist for inhalation #3 device umeclidinium 62.5 mcg/actuation 62.5 mcg INHALATION DAILY #3 disk 03/11/20 03/07/21 blister powder for inhalation ferrous sulfate 650 mg PO TID 05/14/20 03/07/21 calcium carbonate-vitamin D3 600 2 tab PO DAILY #180 tab-cap 08/10/20 03/07/21 mg (1,500 mg)-800 unit tablet blood sugar diagnostic #400 ea 08/29/20 02/16/21 flash glucose scanning reader #1 ea 09/09/20 02/16/21 flash glucose sensor #6 ea 09/09/20 02/16/21 metformin 500 mg tablet 500 mg PO BID #180 tab MDD 1000 mg 09/23/20 03/07/21 montelukast 10 mg tablet 10 mg PO DAILY #90 tab-cap 09/23/20 03/07/21 pen needle, diabetic 31 gauge x #400 ea 10/12/20 02/16/2111/15 glucagon (human recombinant) 1 mg 1 mg SUBCUT ONCE #1 ea 11/11/20 03/07/21 solution for injection magnesium oxide 400 mg (241.3 mg See Rx Instructions PO .COMPLEX 11/16/20 03/07/21 magnesium) tablet #270 tab-cap empagliflozin 25 mg tablet 25 mg PO DAILY AM #90 tab-cap 01/02/21 03/07/21 clopidogrel 75 mg tablet 75 mg PO DAILY 02/01/21 03/07/21 nitroglycerin 0.4 mg sublingual 0.4 mg SUBLINGUAL Q5M PRN 02/01/21 03/07/21 tablet rosuvastatin 20 mg tablet 40 mg PO DAILY tab 02/01/21 03/07/21 colchicine 0.6 mg tablet 0.6 mg PO DAILY 02/09/21 03/07/21 hydrochlorothiazide 25 mg tablet 25 mg PO DAILY AM #90 tab-cap 02/16/21 03/07/21 pantoprazole 20 mg tablet,delayed 20 mg PO DAILY #90 tab-cap 02/16/21 03/07/21 release cetirizine 10 mg tablet 10 mg PO DAILY #90 tab 03/01/21 03/07/21 metoprolol succinate 50 mg 50 mg PO DAILY #90 tab 03/01/21 03/07/21 tablet,extended release 24 hr valsartan 80 mg tablet 80 mg PO DAILY #90 tab 03/01/21 03/07/21 budesonide-formoterol HFA 160 2 puff INHALATION BID #3 inhaler 03/07/21 03/07/21 mcg-4.5 mcg/actuation aerosol inhaler Lantus Solostar U-100 Insulin See Rx Instructions .ROUTE 03/09/21 03/07/21 .COMPLEX #18 syrg albuterol sulfate 2.5 mg IH Q4H PRN PRN #180 ml 03/09/21 guaifenesin [Mucinex] 600 mg PO BID PRN PRN #30 tab 03/09/21 insulin lispro [Humalog KwikPen See Rx Instructions .ROUTE 03/09/21 03/09/21 Insulin] .COMPLEX #0 ml ipratropium-albuterol 3 ml UPD Q6H #90 ml 03/09/21 prednisone See Rx Instructions .ROUTE 03/09/21 .COMPLEX #20 tab Previous Rx's Medication Instructions Recorded lancets [Sure Comfort Lancets] #1 box 06/24/17 cyanocobalamin (vitamin B-12) 1,000 mcg PO DAILY #90 tab-cap 05/07/18 1,000 mcg tablet nebulizer and compressor #1 each 08/21/18 ipratropium 20 mcg-albuterol 100 1 - 2 puff INHALATION .Q4-6H PRN 10/17/18 mcg/actuation mist for inhalation #3 device umeclidinium 62.5 mcg/actuation 62.5 mcg INHALATION DAILY #3 disk 03/11/20 blister powder for inhalation calcium carbonate-vitamin D3 600 2 tab PO DAILY #180 tab-cap 08/10/20 mg (1,500 mg)-800 unit tablet blood sugar diagnostic #400 ea 08/29/20 flash glucose scanning reader #1 ea 09/09/20 flash glucose sensor #6 ea 09/09/20 metformin 500 mg tablet 500 mg PO BID #180 tab MDD 1000 mg 09/23/20 montelukast 10 mg tablet 10 mg PO DAILY #90 tab-cap 09/23/20 pen needle, diabetic 31 gauge x #400 ea 10/12/2011/15 glucagon (human recombinant) 1 mg 1 mg SUBCUT ONCE #1 ea 11/11/20 solution for injection magnesium oxide 400 mg (241.3 mg See Rx Instructions PO .COMPLEX 11/16/20 magnesium) tablet #270 tab-cap empagliflozin 25 mg tablet 25 mg PO DAILY AM #90 tab-cap 01/02/21 hydrochlorothiazide 25 mg tablet 25 mg PO DAILY AM #90 tab-cap 02/16/21 pantoprazole 20 mg tablet,delayed 20 mg PO DAILY #90 tab-cap 02/16/21 release cetirizine 10 mg tablet 10 mg PO DAILY #90 tab 03/01/21 metoprolol succinate 50 mg 50 mg PO DAILY #90 tab 03/01/21 tablet,extended release 24 hr valsartan 80 mg tablet 80 mg PO DAILY #90 tab 03/01/21 budesonide-formoterol HFA 160 2 puff INHALATION BID #3 inhaler 03/07/21 mcg-4.5 mcg/actuation aerosol inhaler Lantus Solostar U-100 Insulin See Rx Instructions .ROUTE 03/09/21 .COMPLEX #18 syrg albuterol sulfate 2.5 mg IH Q4H PRN PRN #180 ml 03/09/21 guaifenesin [Mucinex] 600 mg PO BID PRN PRN #30 tab 03/09/21 insulin lispro [Humalog KwikPen See Rx Instructions .ROUTE 03/09/21 Insulin] .COMPLEX #0 ml ipratropium-albuterol 3 ml UPD Q6H #90 ml 03/09/21 prednisone See Rx Instructions .ROUTE 03/09/21 .COMPLEX #20 tab Allergies Allergy/AdvReac Type Severity Reaction Status Date / Time propylene glycol Allergy Severe Rash Verified 03/07/21 19:04 petrolatum,white Allergy Intermediate rash Verified 03/07/21 19:04 [From Petroleum Jelly] adhesive tape Allergy Unknown Skin Rash Verified 03/07/21 19:04 alendronate sodium Allergy Unknown Hives Verified 03/07/21 19:04 azithromycin AdvReac Intermediate dry heaves Verified 03/07/21 19:04 and diarrhea hydrocodone bitartrate AdvReac Intermediate Nausea Verified 03/07/21 19:04 [From Vicodin] liraglutide [From Victoza] AdvReac Intermediate diarhhea Verified 03/07/21 19:04 paraben AdvReac Intermediate Skin Rash Verified 03/07/21 19:04 quaternium 15 AdvReac Intermediate generalized Verified 03/07/21 19:04 rash ALNDON Inhibitors AdvReac Unknown COUGH,DYSPN Verified 03/07/21 19:04 EA oxycodone HCl [From Percocet] AdvReac Unknown NAUSEA/VOMI Verified 03/07/21 19:04 TING fragranced creams Allergy Intermediate Skin Rash Uncoded 03/07/21 19:04 parabin wax Allergy Intermediate Skin Rash Uncoded 03/07/21 19:04 diogolidinyl AdvReac Severe Skin Rash Uncoded 03/07/21 19:04 bisphenal AdvReac Intermediate Skin Rash Uncoded 03/07/21 19:04 General Stated Complaint: SOB BRUNA: 2 Review of Systems All systems reviewed & are unremarkable except as noted in HPI and below PFSH Medical History (Updated 03/09/21 @ 15:30 by Rosie Taylor MD) Allergic rhinitis Anemia (02/11/14) Suspect chronic dz/bone marrow suppression s/p breast CA tx (radiation); s/p GI workup (possible AVMs?), NL B12/folate, elevated Epo, NL retic count; chronic iron supplementation ASCVD (arteriosclerotic cardiovascular disease) Atherosclerosis of both carotid arteries (11/12/16) 10/2016 [facility] [place]: carotid US showing 16-49% stenosis both internal carotids Recommend annual carotid US Breast CA R 2002, L2003 s/p bilateral lumpectomy. S/P XRT and Tamoxifen. Chronic GI bleeding Chronic obstructive airway disease (06/04/12) [facility] [place] (Dr. Cruz) Moderate-very severe Last OV & PFTs 08/21/16 [facility] [place] O[place] Per pulmonolgy() Severe-very severe KONRAD 10/31/16 CKD (chronic kidney disease) Compression fracture of lumbar vertebra (03/14/17) Depression (11/30/02) s/p of brother (on SSRI for short time) Diabetes mellitus (11/27/04) Dx'ed early Goal A1C <7.5% DJD (degenerative joint disease) (02/04/14) Lumbar spine--multiple level on MRI Surgery 10/2011, [facility] Dr. Smith Essential hypertension (05/16/04) H/O laminectomy L5S1 Headache Heart murmur 07/11/2016 echo: mild-moderate mitral regurgitation Hiatal hernia (02/11/14) Smaller portions Endoscopy 20112 anemia (nothing found), [facility] [place] Hyperlipidemia (03/18/07) Pt on high intensity statin therapy Hypomagnesemia (03/04/17) Intraabdominal calcification (11/14/15) Incidental finding on CT 2 mm between bladder and uterus, no further eval required, AO Iron deficiency anemia (01/02/17) S/p colo & EGD 05/2015, then capsule endoscopy & push enteroscopy with no definitive etiology identified; 11/14/2017: repeat colonoscopy (due to return of anemia) showing a colonic angioectasia, which may have been source of bleeding & anemia (no overt bleeding found). Fe supplementation & monitor Left renal artery stenosis (08/30/16) 08/21/16 [facility] [place] Surgery consult: moderate-severe stenosis; given well- controlled HTN & normal kidney function, renal artery intervention not indicated at this t 10/2016: 3 mo f/u renal duplex US showing >60% stenosis with decent blood flow to L kidney Consider stent placement if BP becomes poorly controlled or renal function begins to deteriorate Leg cramps (04/01/14) Low Mg+ --> supplementation helped, but caused diarrhea; handout on dietary Mg+ given Microalbuminuria due to type 2 diabetes mellitus Non-ST elevation (NSTEMI) myocardial infarction (~12/2020) S/p proximal LCX stent placement Obstructive sleep apnea (03/02/14) Bipap w/ 2L 02 09/06/2019 Osteopenia (02/14/16) DEXA 02/14/16: Fem neck t-score -1.2 --> WHO FRAX major osteoporotic 13% & hip fx 1.3% risk --> does not qualify for bisphosphonates --> Ca & vit D 03/2017 L3 compression fx --> re-calc WHO FRAX major osteoporotic 21% & hip fx 2.3% risk --> now qualifies for bisphosphonate tx, started 03/2017 Probable allergic rxn to Alendronate (1st pill Sat, and stayed thru today (but no worsening), 07/05. Agree to STOP for now. 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 Dr Agee H/O laminectomy (~10/06/12) L5S1 Dr. Jarrod Ballard Oophrectomy, Right (~2007) For unknown reason Status post coronary artery stent placement (~01/27/21) Tooth Extractions Multiple Family History Sister Breast cancer Mother , 89 Alzheimer's dementia Breast cancer Father , AGE 75 Alcohol abuse Cirrhosis Sister Neoplasm uterine CA Sister Heart disease Brother Heart disease Niece Breast cancer Social History Smoking/Tobacco Use Status: Former Tobacco Use Quit Date: 09/02/00 Pack-years: 37 Tobacco: How many years used: 25 Smoking risk assessment performed?: Yes Alcohol Intake: former Details: none Drug use: Never Substance use type: does not use Adopted: No Caregiver/Support person: No Foster care: No Household members: spouse Number of Children: 4 Communication Needs: None Pets and animals: No Current gender identity: female What type of physical activity do you participate in: regular exercise Duration: < 15 minutes/day Frequency: 3-4 times per week Mell/Pentecostal: Yazidi Seatbelt use: always Drive intox or ride w/intox grab driver: No Working smoke detector in home: Yes Fire extinguisher in home: Yes Carbon monox detector in home: Yes Do you feel safe at home: Yes Do you feel safe in your relationship?: Yes Additional Social history: Lives with in [place]. 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 She has 11 grandkids who all live close. Exam Const General: cooperative and no acute distress Eyes Pupils: PERRL Neck Neck: no JVD Chest Chest: normal inspection of the chest Resp Effort & Inspection: tachypneic Auscultation: crackles and diminished lung sounds Cardio Rate: regular rate Rhythm: regular rhythm Heart Sounds: no murmurs GI Other: RLQ tenderness, no cva tenderness not, no abdominal tenderness Skin General skin exam: no rashes or lesions noted Neuro General: patient alert and patient oriented x3 Extrem Other: no peripheral edema or calf tenderness Course Vital Signs Vital signs: Vital Signs Temperature 36.4 C L 03/07/21 18:58 Pulse 74 03/07/21 18:58 Respiratory Rate 21 03/07/21 18:58 Blood Pressure 152/55 H 03/07/21 18:58 Pulse Oximetry 96 03/07/21 18:58 Temperature 36.4 C L 03/07/21 18:58 Temperature Source Skin 03/07/21 18:58 Pulse 74 07/06/21 18:58 Respiratory Rate 18 03/07/21 19:10 Respiratory Effort Non-Labored 03/07/21 19:10 Respiratory Depth Normal 03/07/21 19:10 Respiratory Pattern Normal 03/07/21 19:10 Blood Pressure 152/55 H 03/07/21 18:58 Blood Pressure Position Supine 03/07/21 18:58 Pulse Oximetry 96 03/07/21 18:58 Oxygen Delivery Method Room Air 03/07/21 18:58 Oxygen Flow Rate 0 03/07/21 18:58 Pain Level 6 03/07/21 19:10 Lab/Test Results Lab/Test Results: Laboratory Tests Range/Units 03/07/21 03/07/21 03/07/21 19:00 19:00 19:00 WBC (4.4-10.8) 10^3/uL 2.36 L RBC (3.93-5.22) 10^6/uL 3.78 L Hgb (11.2-15.7) g/dL 11.9 Hct (36.0-46.0) % 37.6 MCV (80-95) fL 99.5 H MCH (27.0-33.0) pg 31.5 MCHC (32.0-36.0) % 31.6 L RDW (11.7-14.6) % 17.2 H Plt Count (130-400) 10^3/uL 264 MPV (8.0-11.0) fL 8.9 Immature Gran % 0.4 Neutrophils % 47.5 Lymphocytes % 33.5 Monocytes % 14.0 Eosinophils % 3.8 Basophils % 0.8 Nucleated RBC % % 0 Absolute Neutrophils (1.2-6.7) 10^3/uL 1.12 L Absolute Lymphocytes (1.2-3.4) 10^3/uL 0.79 L Absolute Monocytes (0.1-0.8) 10^3/uL 0.33 Absolute Eosinophils (0.0-0.7) 10^3/uL 0.09 Absolute Basophils (0.0-0.2) 10^3/uL 0.02 ESR (0-30) mm/hr D-Dimer Cancelled Sodium (136-145) mmol/L 140 Potassium (3.5-5.1) mmol/L 3.7 Chloride (98-107) mmol/L 99 Carbon Dioxide (21.0-32.0) mmol/L 33.3 H Anion Gap (3-11) mmol/L 7.7 BUN (7-18) mg/dL 29 H Creatinine (0.55-1.02) mg/dL 1.3 H Estimated GFR/1.73 m2 (mL/min/1.73m2) 40.38 Glucose (74-106) mg/dL 253 H Calcium (8.5-10.1) mg/dL 9.3 Total Bilirubin (0.2-1.0) mg/dL 0.3 AST (15-37) U/L 21 ALT (14-59) U/L 36 Alkaline Phosphatase (46-116) U/L 40 L Troponin I (<0.06) ng/mL < 0.05 C-Reactive Protein (0.0-0.3) mg/dL NT-Pro-B Natriuret Pep (<300) pg/mL 849 H Total Protein (6.4-8.2) g/dL 7.8 Albumin (3.4-5.0) g/dL 4.0 COVID-19 Source Range/Units 03/07/21 03/07/21 03/07/21 19:00 19:00 19:20 WBC (4.4-10.8) 10^3/uL RBC (3.93-5.22) 10^6/uL Hgb (11.2-15.7) g/dL Hct (36.0-46.0) % MCV (80-95) fL MCH (27.0-33.0) pg MCHC (32.0-36.0) % RDW (11.7-14.6) % Plt Count (130-400) 10^3/uL MPV (8.0-11.0) fL Immature Gran % Neutrophils % Lymphocytes % Monocytes % Eosinophils % Basophils % Nucleated RBC % % Absolute Neutrophils (1.2-6.7) 10^3/uL Absolute Lymphocytes (1.2-3.4) 10^3/uL Absolute Monocytes (0.1-0.8) 10^3/uL Absolute Eosinophils (0.0-0.7) 10^3/uL Absolute Basophils (0.0-0.2) 10^3/uL ESR (0-30) mm/hr 17 D-Dimer Sodium (136-145) mmol/L Potassium (3.5-5.1) mmol/L Chloride (98-107) mmol/L Carbon Dioxide (21.0-32.0) mmol/L Anion Gap (3-11) mmol/L BUN (7-18) mg/dL Creatinine (0.55-1.02) mg/dL Estimated GFR/1.73 m2 (mL/min/1.73m2) Glucose (74-106) mg/dL Calcium (8.5-10.1) mg/dL Total Bilirubin (0.2-1.0) mg/dL AST (15-37) U/L ALT (14-59) U/L Alkaline Phosphatase (46-116) U/L Troponin I (<0.06) ng/mL C-Reactive Protein (0.0-0.3) mg/dL 0.13 NT-Pro-B Natriuret Pep (<300) pg/mL Total Protein (6.4-8.2) g/dL Albumin (3.4-5.0) g/dL COVID-19 Source Nasal/Nares Critical Care Time Critical Care Time Critical Care Time: Yes Total Critical Care Time: 35 Attestation: Patient is hypoxic in need of supplemental oxygen, DuoNeb x2, Solu- Medrol, telemetry monitoring, IV admission
[2021-03-07] MEDS: Normal Saline Flush 10 ML SYR IVP (20:29)
[2021-03-07 20:33] LABS: COVID-19 PCR Negative (Negative)
[2021-03-07] MEDS: Albuterol/Ipratropium 3 ML UPD VIAL UPD ×3 (20:45→23:36)
--- NOTE | 2021-03-07 21:12 | DI.VRAD_ITS ---
PROCEDURE INFORMATION: Exam: CTA Chest With Contrast Exam date and time: 03/07/2021 8:11 PM Age: 70 years old Clinical indication: Bloating; Abdominal pain; Localized; Left lower quadrant (llq); Prior surgery; Surgery date: 6+ months; Surgery type: Stents; Patient HX: Hypoxia, diminished, rlq pain TECHNIQUE: Imaging protocol: Computed tomographic angiography of the chest with contrast. 3D rendering (Not supervised by radiologist): MIP and/or 3D reconstructed images were created by the technologist. Radiation optimization: All CT scans at this facility use at least one of these dose optimization techniques: automated exposure control; mA and/or kV adjustment per patient size (includes targeted exams where dose is matched to clinical indication); or iterative reconstruction. Contrast material: OMNIPAQUE 350; Contrast volume: 100 ml; Contrast route: INTRAVENOUS (IV); COMPARISON: CT CHEST PE CTA 02/04/2021 7:48 PM FINDINGS: Pulmonary arteries: Normal. No pulmonary emboli. Aorta: Moderate atherosclerotic change present in the vasculature. Lungs: Unremarkable. No consolidation. No masses. Pleural spaces: Unremarkable. No pneumothorax. No pleural effusion. Heart: Coronary artery calcifications/stents noted. Mediastinal space: There may be some mild esophageal wall thickening involving the distal esophagus. Lymph nodes: Unremarkable. No enlarged lymph nodes. Bones/joints: Unremarkable. No acute fracture. Soft tissues: Unremarkable. IMPRESSION: 1. Possible mild distal esophagitis. 2. No evidence for pulmonary embolus. PROCEDURE INFORMATION: Exam: CT Angiography Abdomen With Contrast Exam date and time: 03/07/2021 8:11 PM Age: 70 years old Clinical indication: Bloating; Abdominal pain; Localized; Left lower quadrant (llq); Prior surgery; Surgery date: 6+ months; Surgery type: Stents; Patient HX: Hypoxia, diminished, rlq pain TECHNIQUE: Imaging protocol: Computed tomographic angiography images of the abdomen with intravenous contrast material. Radiation optimization: All CT scans at this facility use at least one of these dose optimization techniques: automated exposure control; mA and/or kV adjustment per patient size (includes targeted exams where dose is matched to clinical indication); or iterative reconstruction. Contrast material: OMNIPAQUE 350; Contrast volume: 100 ml; Contrast route: INTRAVENOUS (IV); COMPARISON: CT CHEST PE CTA 02/04/2021 7:48 PM FINDINGS: Aorta: Severe atherosclerotic change present in the vasculature. Celiac trunk and mesenteric arteries: No occlusion or significant stenosis. Renal arteries: No occlusion or significant stenosis. Liver: Mild fatty liver. Gallbladder and bile ducts: Normal. No calcified stones. No ductal dilation. Pancreas: Normal. No ductal dilation. Spleen: Normal. No splenomegaly. Adrenals: Small low-density right adrenal nodule, 1 cm. Kidneys and ureters: Normal. No hydronephrosis. Stomach and bowel: Unremarkable. No obstruction. No mucosal thickening. Appendix: The appendix is well seen, within normal limits. Lymph nodes: There are some scattered calcified mesenteric lymph nodes. Intraperitoneal space: Unremarkable. No free air. No significant fluid collection. Bones/joints: L3 chronic compression deformity noted. Soft tissues: Unremarkable. IMPRESSION: No acute abnormality seen to account for symptoms. Dictated and Authenticated by: Yvonne Amaya MD. Ordering:SAGAR Pereira MD
[2021-03-08] VITALS (12 sets, daily range): BP systolic 132–154; BP diastolic 64–69; PULSE 78–96; RESP 1–20; TEMP 36.4–37.3; O2SAT 85–95
[2021-03-08] MEDS: Albuterol/Ipratropium 3 ML UPD VIAL UPD ×4 (05:32→22:08)
--- NOTE | 2021-03-08 08:12 | HPE_ITS ---
Date of service: 03/08/21 Time of Service: 08:13 Assessment and Plan Assessment and plan (1) COPD, very severe: Status: Acute Assessment and plan: I suspect her COPD is due to her history of tobacco use in the past however a bit unclear why she has had a recent worsening of her hypoxia. We will check pulmonary functions. We will continue inhaled albuterol and ipratropium. We will give intravenous steroids. (2) Diabetes mellitus: Status: Chronic Assessment and plan: We will continue her insulin therapy. Qualifiers: Diabetes mellitus type: type 2 Diabetes mellitus correction insulin use: with correction use Diabetes mellitus complication status: with kidney complications Diabetes mellitus complication detail: with chronic kidney disease Chronic kidney disease stage: unspecified stage Qualified Code(s): E11.22 - Type 2 diabetes mellitus with diabetic chronic kidney disease; Z79.4 - correctional guard (current) use of insulin History of Present Illness History of Present Illness Chief Complaint: Hypoxia Narrative: This 70-year-old female because of low oxygen levels and shortness of breath. She does have a history of chronic obstructive lung disease. She has not smoked cigarettes for 35 years. She states she was hospitalized in December for coronary artery disease and had 2 stents placed at [facility]. She was discharged following day but did not feel well a couple days later and was diagnosed with pericarditis. She was treated department for 4 days and sent home on oxygen. She does not know if she saw a user support analyst supervisor while she was there. When she was sent home she was told to use her oxygen at night. She has felt increasingly short of breath over the last 2 weeks. Her oxygen levels at home have been as low as 78 to 79% and she started using oxygen more often. She was having some trouble with her oxygen supply at home and contacted her oxygen vendor but they were not very helpful to her. She said she needed to go up to [place] to get oxygen supplies yesterday. Because of her increased oxygen requirement and shortness of breath she came to the hospital yesterday. She has had some cough that has not changed. She has not been around anyone else been ill. She has not had a fever and she lives with her . She has had both of her coronavirus vaccines. She presented to the emergency department and while there her oxygen level got as low as 68% on room air with ambulation. Admission was recommended. Review of Systems Constitutional Constitutional: Denies body ache(s), Denies chills, Denies fever(s) and Denies weight loss Cardiovascular Cardiovascular: Denies chest pain, Denies leg edema, Denies palpitations, Reports dyspnea and Reports dyspnea on exertion Respiratory Respiratory: Reports cough, Denies excessive phlegm production, Reports dyspnea and Reports dyspnea on exertion Gastrointestinal Gastrointestinal: Denies change in bowel habits, Denies constipation, Reports nausea and Denies vomiting Genitourinary Genitourinary: Denies difficulty voiding, Denies urinary incontinence and Denies urinary urgency Endocrine Endocrine: Denies palpitations [facility] Medical History (Updated 03/01/21 @ 12:12 by Sahra Madsen RN) Allergic rhinitis Anemia (02/11/14) Suspect chronic dz/bone marrow suppression s/p breast CA tx (radiation); s/p GI workup (possible AVMs?), NL B12/folate, elevated Epo, NL retic count; chronic iron supplementation ASCVD (arteriosclerotic cardiovascular disease) Atherosclerosis of both carotid arteries (11/12/16) 10/2016 [facility] Vascular Consult: carotid US showing 16-49% stenosis both internal carotids Recommend annual carotid US Breast CA R 2002, L2003 s/p bilateral lumpectomy. S/P XRT and Tamoxifen. Chronic GI bleeding Chronic obstructive airway disease (06/04/12) [facility] Pulmonology (Dr. Cruz) Moderate-very severe Last OV & PFTs 08/21/16 [facility] Night-time Oxygen Per pulmonolgy() Severe-very severe KONRAD 10/31/16 CKD (chronic kidney disease) Compression fracture of lumbar vertebra (03/14/17) Depression (11/30/02) s/p of brother (on SSRI for short time) Diabetes mellitus (11/27/04) Dx'ed early Goal A1C <7.5% DJD (degenerative joint disease) (02/04/14) Lumbar spine--multiple level on MRI Surgery 10/2011, [facility] Dr. Smith Essential hypertension (05/16/04) H/O laminectomy L5S1 Headache Heart murmur 07/11/2016 echo: mild-moderate mitral regurgitation Hiatal hernia (02/11/14) Smaller portions Endoscopy 2011 2/2 anemia (nothing found), [facility] Hyperlipidemia (03/18/07) Pt on high intensity statin therapy Hypomagnesemia (03/04/17) Intraabdominal calcification (11/14/15) Incidental finding on CT 2 mm between bladder and uterus, no further eval required, AOC Iron deficiency anemia (01/02/17) S/p colo & EGD 05/2015, then capsule endoscopy & push enteroscopy with no definitive etiology identified; 11/14/2017: repeat colonoscopy (due to return of anemia) showing a colonic angioectasia, which may have been source of bleeding & anemia (no overt bleeding found). Fe supplementation & monitor Left renal artery stenosis (08/30/16) 08/21/16 [facility] Vascular Surgery consult: moderate-severe stenosis; given well- controlled HTN & normal kidney function, renal artery intervention not indicated at this t 10/2016: 3 mo f/u renal duplex US showing >60% stenosis with decent blood flow to L kidney Consider stent placement if BP becomes poorly controlled or renal function begins to deteriorate Leg cramps (04/01/14) Low Mg+ --> supplementation helped, but caused diarrhea; handout on dietary Mg+ given Microalbuminuria due to type 2 diabetes mellitus Non-ST elevation (NSTEMI) myocardial infarction (~12/2020) S/p proximal LCX stent placement Obstructive sleep apnea (03/02/14) Bipap w/ 2L 02 09/06/2019 Osteopenia (02/14/16) DEXA 02/14/16: Fem neck t-score -1.2 --> WHO FRAX major osteoporotic 13% & hip fx 1.3% risk --> does not qualify for bisphosphonates --> Ca & vit D 03/2017 L3 compression fx --> re-calc WHO FRAX major osteoporotic 21% & hip fx 2.3% risk --> now qualifies for bisphosphonate tx, started 03/2017 Probable allergic rxn to Alendronate (1st pill Sat, Hiv Th and stayed thru today (but no worsening), 07/05. Agree to STOP for now. 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 Vascular Surgery consult: moderate stenosis, not source of clinical pathology, & no intervention or further evaluation indicated Superior mesenteric artery stenosis Tobacco use disorder 30-50 PY, QUIT 1999 Surgical History Biopsy, Lymph Node (~2003) (L) axilla for breast CA Breast, Lumpectomy (~2003) B/L for breast CA Extraction of cataract left eye surgical removal with intraocular lens implant. Dr Agee H/O laminectomy (~10/06/12) L5S1 Huyen Frazier, Dr. Garay Oophrectomy, Right (~2007) For unknown reason Status post coronary artery stent placement (~01/27/21) Tooth Extractions Multiple Family History Sister Breast cancer Mother , 89 Alzheimer's dementia Breast cancer Father , AGE 75 Alcohol abuse Cirrhosis Sister Neoplasm uterine CA Sister Heart disease Brother Heart disease Niece Breast cancer Social History Smoking/Tobacco Use Status: Former Tobacco Use Quit Date: 09/02/00 Pack-years: 37 Tobacco: How many years used: 25 Smoking risk assessment performed?: Yes Alcohol Intake: former Details: none Drug use: Never Substance use type: does not use Adopted: No Caregiver/Support person: No Foster care: No Household members: spouse Number of Children: 4 Communication Needs: None Pets and animals: No Current gender identity: female What type of physical activity do you participate in: regular exercise Duration: < 15 minutes/day Frequency: 3-4 times per week Mell/Roman Catholic: Cheondoism Seatbelt use: always Drive intox or ride w/intox local company tanker driver: No Working smoke detector in home: Yes Fire extinguisher in home: Yes Carbon monox detector in home: Yes Do you feel safe at home: Yes Do you feel safe in your relationship?: Yes Additional Social history: Lives with in [place]. 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 She has 11 grandkids who all live close. Meds Allergies and Home Medications Allergies Allergy/AdvReac Type Severity Reaction Status Date / Time propylene glycol Allergy Severe Rash Verified 03/07/21 19:04 petrolatum,white Allergy Intermediate rash Verified 03/07/21 19:04 [From Petroleum Jelly] adhesive tape Allergy Unknown Skin Rash Verified 03/07/21 19:04 alendronate sodium Allergy Unknown Hives Verified 03/07/21 19:04 azithromycin AdvReac Intermediate dry heaves Verified 03/07/21 19:04 and diarrhea hydrocodone bitartrate AdvReac Intermediate Nausea Verified 03/07/21 19:04 [From Vicodin] liraglutide [From Victoza] AdvReac Intermediate diarhhea Verified 03/07/21 19:04 paraben AdvReac Intermediate Skin Rash Verified 03/07/21 19:04 quaternium 15 AdvReac Intermediate generalized Verified 03/07/21 19:04 rash LANDON Inhibitors AdvReac Unknown COUGH,DYSPN Verified 03/07/21 19:04 EA oxycodone HCl [From Percocet] AdvReac Unknown NAUSEA/VOMI Verified 03/07/21 19:04 TING fragranced creams Allergy Intermediate Skin Rash Uncoded 03/07/21 19:04 parabin wax Allergy Intermediate Skin Rash Uncoded 03/07/21 19:04 diogolidinyl AdvReac Severe Skin Rash Uncoded 03/07/21 19:04 bisphenal AdvReac Intermediate Skin Rash Uncoded 03/07/21 19:04 Home Medications Medication Instructions Recorded Confirmed Type aspirin [Aspir-81] 81 mg PO DAILY #90 03/30/13 03/07/21 History Oxygen l NS At Night #2 04/19/16 02/19/19 Clinic multivitamin [Daily Multi-Vitamin] 1 ea PO DAILY 03/19/17 03/07/21 History albuterol sulfate [ProAir HFA] 1 puff INHALATION Q4H PRN #2 04/02/17 03/07/21 History inhaler lancets [Sure Comfort Lancets] #1 box 06/24/17 02/16/21 Rx acetaminophen 1,000 mg PO TID PRN #90 tab-cap 12/16/17 03/07/21 History cyanocobalamin (vitamin B-12) 1,000 mcg PO DAILY #90 tab-cap 05/07/18 03/07/21 Rx 1,000 mcg tablet nebulizer and compressor #1 each 08/21/18 02/16/21 Rx ipratropium 20 mcg-albuterol 100 1 - 2 puff INHALATION .Q4-6H PRN 10/17/18 03/07/21 Rx mcg/actuation mist for inhalation #3 device umeclidinium 62.5 mcg/actuation 62.5 mcg INHALATION DAILY #3 disk 03/11/20 03/07/21 Rx blister powder for inhalation ferrous sulfate 650 mg PO TID 05/14/20 03/07/21 History calcium carbonate-vitamin D3 600 2 tab PO DAILY #180 tab-cap 08/10/20 03/07/21 Rx mg (1,500 mg)-800 unit tablet blood sugar diagnostic #400 ea 08/29/20 02/16/21 Rx flash glucose scanning reader #1 ea 09/09/20 02/16/21 Rx flash glucose sensor #6 ea 09/09/20 02/16/21 Rx metformin 500 mg tablet 500 mg PO BID #180 tab MDD 1000 mg 09/23/20 03/07/21 Rx montelukast 10 mg tablet 10 mg PO DAILY #90 tab-cap 09/23/20 03/07/21 Rx pen needle, diabetic 31 gauge x #400 ea 10/12/20 02/16/21 Rx 11/15 glucagon (human recombinant) 1 mg 1 mg SUBCUT ONCE #1 ea 11/11/20 03/07/21 Rx solution for injection magnesium oxide 400 mg (241.3 mg See Rx Instructions PO .COMPLEX 11/16/20 03/07/21 Rx magnesium) tablet #270 tab-cap insulin glargine 100 unit/mL (3 30 unit SC BID #18 syrg 12/12/20 03/07/21 Rx mL) subcutaneous pen empagliflozin 25 mg tablet 25 mg PO DAILY AM #90 tab-cap 01/02/21 03/07/21 Rx albuterol sulfate 2.5 mg IH QID PRN #180 ml 01/04/21 03/07/21 Rx clopidogrel 75 mg tablet 75 mg PO DAILY 02/01/21 03/07/21 History nitroglycerin 0.4 mg sublingual 0.4 mg SUBLINGUAL Q5M PRN 02/01/21 03/07/21 History tablet rosuvastatin 20 mg tablet 40 mg PO DAILY tab 02/01/21 03/07/21 History colchicine 0.6 mg tablet 0.6 mg PO DAILY 02/09/21 03/07/21 History hydrochlorothiazide 25 mg tablet 25 mg PO DAILY AM #90 tab-cap 02/16/21 03/07/21 Rx pantoprazole 20 mg tablet,delayed 20 mg PO DAILY #90 tab-cap 02/16/21 03/07/21 Rx release cetirizine 10 mg tablet 10 mg PO DAILY #90 tab 03/01/21 03/07/21 Rx metoprolol succinate 50 mg 50 mg PO DAILY #90 tab 03/01/21 03/07/21 Rx tablet,extended release 24 hr prednisone 20 mg tablet 40 mg PO DAILY tab 03/01/21 03/07/21 History valsartan 80 mg tablet 80 mg PO DAILY #90 tab 03/01/21 03/07/21 Rx budesonide-formoterol HFA 160 2 puff INHALATION BID #3 inhaler 03/07/21 03/07/21 Rx mcg-4.5 mcg/actuation aerosol inhaler Exam Const General: cooperative, well developed and well groomed Nutritional Appearance: overweight Orientation: alert, awake and oriented x3 Neck Neck: normal visual inspection and no lymphadenopathy Thyroid: thyroid normal Resp Effort & Inspection: normal respiratory effort, able to speak in complete sentences and not tachypneic Auscultation: no rales, no rhonchi and no wheezes Cardio Rate: regular rate Rhythm: regular rhythm Heart Sounds: S1 normal, S2 normal and murmur (1/6 SHY) GI Inspection: normal to inspection and non-distended Palpation: soft, no hepatosplenomegaly and nontender Neuro General: patient alert, patient awake and patient oriented x3 Extrem General: normal to inspection, no cyanosis and no edema Results Labs Result diagrams: 03/07/21 19:00 03/07/21 19:00 Labs: Laboratory Results - last 24 hr 03/07/21 03/07/21 03/07/21 19:00 19:00 19:00 WBC 2.36 L RBC 3.78 L Hgb 11.9 Hct 37.6 MCV 99.5 H MCH 31.5 MCHC 31.6 L RDW 17.2 H Plt Count 264 MPV 8.9 Immature Gran % 0.4 Neutrophils % 47.5 Lymphocytes % 33.5 Monocytes % 14.0 Eosinophils % 3.8 Basophils % 0.8 Nucleated RBC % 0 Absolute Neutrophils 1.12 L Absolute Lymphocytes 0.79 L Absolute Monocytes 0.33 Absolute Eosinophils 0.09 Absolute Basophils 0.02 ESR D-Dimer Cancelled Sodium 140 Potassium 3.7 Chloride 99 Carbon Dioxide 33.3 H Anion Gap 7.7 BUN 29 H Creatinine 1.3 H Estimated GFR/1.73 m2 40.38 Glucose 253 H Calcium 9.3 Total Bilirubin 0.3 AST 21 ALT 36 Alkaline Phosphatase 40 L Troponin I < 0.05 C-Reactive Protein NT-Pro-B Natriuret Pep 849 H Total Protein 7.8 Albumin 4.0 COVID-19 Source SARS-CoV-2 (PCR) 03/07/21 03/07/21 03/07/21 19:00 19:00 19:20 WBC RBC Hgb Hct MCV MCH MCHC RDW Plt Count MPV Immature Gran % Neutrophils % Lymphocytes % Monocytes % Eosinophils % Basophils % Nucleated RBC % Absolute Neutrophils Absolute Lymphocytes Absolute Monocytes Absolute Eosinophils Absolute Basophils ESR 17 D-Dimer Sodium Potassium Chloride Carbon Dioxide Anion Gap BUN Creatinine Estimated GFR/1.73 m2 Glucose Calcium Total Bilirubin AST ALT Alkaline Phosphatase Troponin I C-Reactive Protein 0.13 NT-Pro-B Natriuret Pep Total Protein Albumin COVID-19 Source Nasal/Nares SARS-CoV-2 (PCR) Negative Last Vital Signs Temp 36.7 C 03/07/21 23:24 Pulse 82 03/07/21 23:41 Resp 18 03/07/21 23:24 BP 139/68 03/07/21 23:24 Pulse Ox 92 03/08/21 05:39
[2021-03-08] MEDS: Pantoprazole 20 MG TABCR PO (08:41)
[2021-03-08] MEDS: Clopidogrel 75 MG TAB PO (08:41)
[2021-03-08] MEDS: Cetirizine 10 MG TAB PO (08:42)
[2021-03-08] MEDS: Aspirin E.C. 81 MG TABEC PO (08:42)
[2021-03-08] MEDS: Insulin Glargine 300 UNITS/3 ML PEN 20 UNITS SC ×2 (08:42→22:08)
[2021-03-08] MEDS: hydroCHLOROthiazide 25 MG TAB PO (08:42)
[2021-03-08] MEDS: Ferrous Sulfate 325 MG TAB 650 MG PO ×3 (08:42→19:45)
[2021-03-08] MEDS: Metoprolol CR 50 MG TABCR PO (08:42)
[2021-03-08] MEDS: metFORMIN 500 MG TAB PO ×2 (08:42→17:06)
[2021-03-08] MEDS: Cyanocobalamin 500 MCG TAB 1000 MCG PO (08:42)
[2021-03-08] MEDS: Normal Saline Flush 10 ML SYR IVP ×2 (08:43→19:48)
[2021-03-08] MEDS: Colchicine 0.6 MG TAB PO (09:16)
[2021-03-08] MEDS: Calcium 600mg/Vit D 200U TAB 2 TAB PO (09:16)
[2021-03-08] MEDS: Magnesium Oxide 400 MG TAB 800 MG PO (09:16)
[2021-03-08] MEDS: Valsartan 80 MG TAB PO (09:16)
[2021-03-08] MEDS: Budesonide/Formoterol 160/4.5 6 GM 60 PUFF INH IH ×2 (09:25→19:45)
[2021-03-08 11:17] LABS: Procalcitonin < 0.1 ng/mL
--- NOTE | 2021-03-08 11:56 | CHAPLAIN ---
Nahed asked for prayers for herself. She said she was in [facility] recently and is dealing with respiratory issues. If she takes her oxygen off, she said her levels sink immediately. She is seeing the new ticketer today at 5 p.m. and hoping to get some answers because no one can tell me what's going on. Nahed's sister, Venus recently retired from [employer], and her other sister is an [employer] in Day Surgery, so she said she feels well supported.
[2021-03-08] MEDS: Insulin Aspart 300 UNITS/3 ML PEN SC ×3 (11:59→22:09)
--- NOTE | 2021-03-08 15:08 | CHAPLAIN ---
in addition to my last note - Nahed also talked about recent stressors and said she'd had a heart attack recently. When I asked what she does to relax or how she deals with stress, she mentioned that she used to knit and found that relaxing and would consider doing that again. Mostly she believed that after meeting with the pulmanologist and having and explanation for her decrease in oxygen levels, would help her reduce her stress.
--- NOTE | 2021-03-08 16:00 | W.PM.PROGNOT ---
Date of Service Date of service: 03/08/21 Time of Service: 16:00 Subjective Subjective Interval history since last seen: Feels better. Breathing is better. Cough is productive of clear sputum. Inquiring whether some of the home medications could be contributing to her breathing. Currently on room air - not dyspneic/cyanotic. Using IS. On exam, breath sounds are diminished with crackles at L base. Procalcitonin negative - no role for abx. Add prednisone, mucinex. Will need exercise oximetry prior to discharge. Objective Last Vital Signs Temp 37.3 C 03/08/21 15:33 Pulse 83 03/08/21 15:33 Resp 17 03/08/21 15:33 BP 132/67 03/08/21 15:33 Pulse Ox 89 L 03/08/21 15:33 Laboratory Results - last 24 hr 03/07/21 03/07/21 03/07/21 19:00 19:00 19:00 WBC 2.36 L RBC 3.78 L Hgb 11.9 Hct 37.6 MCV 99.5 H MCH 31.5 MCHC 31.6 L RDW 17.2 H Plt Count 264 MPV 8.9 Immature Gran % 0.4 Neutrophils % 47.5 Lymphocytes % 33.5 Monocytes % 14.0 Eosinophils % 3.8 Basophils % 0.8 Nucleated RBC % 0 Absolute Neutrophils 1.12 L Absolute Lymphocytes 0.79 L Absolute Monocytes 0.33 Absolute Eosinophils 0.09 Absolute Basophils 0.02 ESR D-Dimer Cancelled Sodium 140 Potassium 3.7 Chloride 99 Carbon Dioxide 33.3 H Anion Gap 7.7 BUN 29 H Creatinine 1.3 H Estimated GFR/1.73 m2 40.38 Glucose 253 H Calcium 9.3 Total Bilirubin 0.3 AST 21 ALT 36 Alkaline Phosphatase 40 L Troponin I < 0.05 C-Reactive Protein NT-Pro-B Natriuret Pep 849 H Total Protein 7.8 Albumin 4.0 Procalcitonin COVID-19 Source SARS-CoV-2 (PCR) 03/07/21 03/07/21 03/07/21 19:00 19:00 19:00 WBC RBC Hgb Hct MCV MCH MCHC RDW Plt Count MPV Immature Gran % Neutrophils % Lymphocytes % Monocytes % Eosinophils % Basophils % Nucleated RBC % Absolute Neutrophils Absolute Lymphocytes Absolute Monocytes Absolute Eosinophils Absolute Basophils ESR 17 D-Dimer Sodium Potassium Chloride Carbon Dioxide Anion Gap BUN Creatinine Estimated GFR/1.73 m2 Glucose Calcium Total Bilirubin AST ALT Alkaline Phosphatase Troponin I C-Reactive Protein 0.13 NT-Pro-B Natriuret Pep Total Protein Albumin Procalcitonin < 0.1 COVID-19 Source SARS-CoV-2 (PCR) 03/07/21 19:20 WBC RBC Hgb Hct MCV MCH MCHC RDW Plt Count MPV Immature Gran % Neutrophils % Lymphocytes % Monocytes % Eosinophils % Basophils % Nucleated RBC % Absolute Neutrophils Absolute Lymphocytes Absolute Monocytes Absolute Eosinophils Absolute Basophils ESR D-Dimer Sodium Potassium Chloride Carbon Dioxide Anion Gap BUN Creatinine Estimated GFR/1.73 m2 Glucose Calcium Total Bilirubin AST ALT Alkaline Phosphatase Troponin I C-Reactive Protein NT-Pro-B Natriuret Pep Total Protein Albumin Procalcitonin COVID-19 Source Nasal/Nares SARS-CoV-2 (PCR) Negative
[2021-03-08] MEDS: Magnesium Oxide 400 MG TAB PO (17:07)
--- NOTE | 2021-03-08 19:27 | INITIAL_ITS ---
- If Service Date Differs Date of service: 03/08/21 Time of Service: 19:27 Care Management Initial Assess REASON FOR HOSPITALIZATION:: COPD exacerbation PAST MEDICAL HISTORY/PAST SURGICAL HISTORY:: Medical History. Allergic rhinitis. Anemia (02/11/14). Suspect chronic dz/bone marrow suppression s/p breast CA tx (radiation); s/p GI workup (possible AVMs?), NL B12/folate, elevated Epo, NL retic count; chronic iron supplementation. ASCVD (arteriosclerotic cardiovascular disease). Atherosclerosis of both carotid arteries (11/12/16). 10/2016 [facility] [place] Vascular Consult: carotid US showing 16-49% stenosis both internal carotids. Recommend annual carotid US. Breast CA. R 2001, L2003 s/p bilateral lumpectomy. S/P XRT and Tamoxifen. Chronic GI bleeding. Chronic obstructive airway disease (06/04/12). [facility] [place] Pulmonology (Dr. Cruz). Moderate-very severe. Last OV & PFTs 08/21/16 [facility] [place]. Night-time Oxygen. Per pulmonolgy(). Severe-very severe. KONRAD 10/31/16. CKD (chronic kidney disease). Compression fracture of lumbar vertebra (03/14/17). Depression (11/30/02). s/p of brother (on SSRI for short time). Diabetes mellitus (11/27/04). Dx'ed early . Goal A1C <7.5%. DJD (degenerative joint disease) (02/04/14). Lumbar spine--multiple level on MRI. Surgery 10/2011, [facility] Dr. Smith. Essential hypertension (05/16/04). H/O laminectomy. L5S1. Headache. Heart murmur. 07/11/2016 echo: mild-moderate mitral regurgitation. Hiatal hernia (02/11/14). Smaller portions. Endoscopy 20112 anemia (nothing found), [facility] [place]. Hyperlipidemia (03/18/07). Pt on high intensity statin therapy. Hypomagnesemia (03/04/17). Intraabdominal calcification (11/14/15). Incidental finding on CT. 2 mm between bladder and uterus, no further eval required, AOC. Iron deficiency anemia (01/02/17). S/p colo & EGD 05/2015, then capsule endoscopy & push enteroscopy with no definitive etiology identified; 11/14/2017: repeat colonoscopy (due to return of anemia) showing a colonic angioectasia, which may have been source of bleeding & anemia (no overt bleeding found). Fe supplementation & monitor. Left renal artery stenosis (08/30/16). 08/21/16 [facility] [place] Vascular Surgery consult: moderate-severe stenosis; given well-controlled HTN & normal kidney function, renal artery intervention not indicated at this t. 10/2016: 3 mo f/u renal duplex US showing >60% stenosis with decent blood flow to L kidney. Consider stent placement if BP becomes poorly controlled or renal function begins to deteriorate. Leg cramps (04/01/14). Low Mg+ --> supplementation helped, but caused diarrhea; handout on dietary Mg+ given. Microalbuminuria due to type 2 diabetes mellitus. Non-ST elevation (NSTEMI) myocardial infarction (~12/2020). S/p proximal LCX stent placement. Obstructive sleep apnea (03/02/14). Bipap w/ 2L 02 09/06/2019. Osteopenia (02/14/16). DEXA 02/14/16: Fem neck t-score -1.2 --> WHO FRAX major osteoporotic 13% & hip fx 1.3% risk --> does not qualify for bisphosphonates --> Ca & vit D. 03/2017 L3 compression fx --> re-calc WHO FRAX major osteoporotic 21% & hip fx 2.3% risk --> now qualifies for bisphosphonate tx, started 03/2017. Probable allergic rxn to Alendronate (1st pill Sat, and stayed thru today (but no worsening), 07/05. Agree to STOP for now. Pericarditis (~12/2020). S/p OK. Pneumonia. Reflux esophagitis (07/16/12). LA GRADE B , EGD W/ BX 05/04/15. Solitary pulmonary nodule (12/22/15). Incidental finding of 6 mm pulm nodule RLL on 11/07/[address] with 6 month f/u chest CT recommended; 04/2016 6- month f/u chest CT: resolution of nodule. 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 08/21/16 [facility] [place] Vascular Surgery consult: moderate stenosis, not source of clinical pathology, & no intervention or further evaluation indicated. Superior mesenteric artery stenosis. Tobacco use disorder. 30-50 PY, QUIT 1999. Surgical History. Biopsy, Lymph Node (~2003). (L) axilla for breast CA. Breast, Lumpectomy (~2003). B/L for breast CA. Extraction of cataract. left eye surgical removal with intraocular lens implant. Dr Agee. H/O laminectomy (~10/06/12). L5S1 Dr. Jarrod Ballard. Oophrectomy, Right (~2007). For unknown reason. Status post coronary artery stent placement (~01/27/21). Tooth Extractions. Multiple PREVIOUS FUNCTIONAL STATUS/SOCIAL/FAMILY SUPPORTS:: Nahed lives with her , Isaac in [place]. They have four adult children and many grandchildren. 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 She is not currently working, due to limitations and health concerns. She uses oxygen and a CPAP machine at night, but is otherwise independent with her ADL's. CURRENT FUNCTIONAL STATUS:: Nahed was sitting up in bed when CM met with her. She reported that she feels that she has had one thing after another, with regard to her health concerns. She stated that she is grateful for her supportive family, including her children and sister. She continues to work with RT, and is currently on room air. Per report, she will need an exercise oximetry prior to discharge. CM will continue to follow. ADVANCE DIRECTIVES:: On file, Marilia (daughter) listed as agent. Has patient been provided with info about the portal/API?: Yes Did the patient sign up for the portal?: Yes (active) CODE STATUS:: Full Code INSURANCE COVERAGE / FINANCIAL ISSUES:: [facility]/ [employer] CURRENT HOME/COMMUNITY SERVICES/EQUIPMENT:: Home O2 and CPAP from [place]. PRIMARY CARE PHYSICIAN:: María Mendoza POTENTIAL DISCHARGE NEEDS:: Evaluations for further needs, follow up appointments PATIENT/FAMILY EDUCATION NEEDS:: Review of discharge instructions, discussion of self care needs including Ask Me Three ANTICIPATED BARRIERS TO DISCHARGE:: None identified at this time. TRANSPORTATION:: Her , Isaac will drive her home via private vehicle. PLAN:: Anticipate Nahed will discharge home with no additional services when medically cleared. Isaac will drive her home when ready. Follow up appointments as recommended. CM will continue to follow.
[2021-03-08] MEDS: Rosuvastatin 10 MG TAB 40 MG PO (19:45)
[2021-03-08] MEDS: guaiFENesin 600 MG TABCR PO (19:45)
[2021-03-08] MEDS: predniSONE 20 MG TAB 60 MG PO (19:45)
[2021-03-08] MEDS: Montelukast 10 MG TAB PO (22:08)
[2021-03-09] VITALS (7 sets, daily range): BP systolic 132–157; BP diastolic 67–71; PULSE 73–90; RESP 1–22; TEMP 36.3–37; O2SAT 91–93
--- NOTE | 2021-03-09 | DI.RAD_ITS ---
Exam(s) XR ABDOMEN FLAT PLATE EXAM: 2D digital imaging was performed. CLINICAL HISTORY: abdominal pain, h/o prior abdominal surgery. COMPARISON: CT CT CHEST PE ABD PELVIS W from 03/07/2021 TECHNIQUE: Supine views of the abdomen performed. FINDINGS: BOWEL GAS PATTERN: Nondistended. Normal quantity of stool. CALCIFICATIONS: No radiopaque calcifications. OSSEOUS STRUCTURES: Normal for age. OTHER FINDINGS: Visualized lung cole are clear. Heart size normal. Coronary artery stent. IMPRESSION: 1. Nonobstructive bowel gas pattern. 2. No radiopaque calculi. DATA REPOSITORY: RADIATION DOSE DELIVERED:
[2021-03-09] MEDS: Albuterol/Ipratropium 3 ML UPD VIAL UPD ×3 (05:20→17:14)
[2021-03-09 07:01] LABS: Abs Immature Grans 0.09 10^3/uL (0.0-0.06); Absolute Lymphocyte Count 0.32 10^3/uL (1.2-3.4); Absolute Monocyte Count 0.07 10^3/uL (0.1-0.8); Absolute Neutrophil Count 3.13 10^3/uL (1.2-6.7); HCT 35.1 % (36.0-46.0); Immature Grans % 2.5; Lymphocytes % 8.9; MCH 31.8 pg (27.0-33.0); MCHC 31.3 % (32.0-36.0); MCV 101.4 fL (80-95); MPV 9.3 fL (8.0-11.0); Monocytes % 1.9; Neutrophils % 86.7; Nucleated RBC 0 %; Platelet Count 236 10^3/uL (130-400); RBC 3.46 10^6/uL (3.93-5.22); RDW 17.2 % (11.7-14.6); RDW-SD 64.3 fL; WBC 3.61 10^3/uL (4.4-10.8)
[2021-03-09 07:05] LABS: BUN 38 mg/dL (7-18); CREATININE 1.3 mg/dL (0.55-1.02); Chloride 99 mmol/L (98-107); Estimated GFR 40.38 (mL/min/1.73m2); Glucose 315 mg/dL (74-106); Magnesium 2.1 mg/dL (1.8-2.4); Potassium 4.9 mmol/L (3.5-5.1); Sodium 137 mmol/L (136-145)
[2021-03-09 07:11] LABS: Calcium 10.3 mg/dL (8.5-10.1)
[2021-03-09] MEDS: guaiFENesin 600 MG TABCR PO (07:43)
[2021-03-09] MEDS: Clopidogrel 75 MG TAB PO (07:43)
[2021-03-09] MEDS: Pantoprazole 20 MG TABCR 40 MG PO (07:43)
[2021-03-09] MEDS: Normal Saline Flush 10 ML SYR IVP (07:43)
[2021-03-09] MEDS: predniSONE 20 MG TAB 60 MG PO (07:43)
[2021-03-09] MEDS: Colchicine 0.6 MG TAB PO (07:43)
[2021-03-09] MEDS: Metoprolol CR 50 MG TABCR PO (07:43)
[2021-03-09] MEDS: Valsartan 80 MG TAB PO (07:43)
[2021-03-09] MEDS: Cyanocobalamin 500 MCG TAB 1000 MCG PO (07:43)
[2021-03-09] MEDS: Ferrous Sulfate 325 MG TAB 650 MG PO ×2 (07:43→14:51)
[2021-03-09] MEDS: hydroCHLOROthiazide 25 MG TAB PO (07:43)
[2021-03-09] MEDS: Aspirin E.C. 81 MG TABEC PO (07:43)
[2021-03-09] MEDS: Cetirizine 10 MG TAB PO (07:43)
[2021-03-09] MEDS: Insulin Aspart 300 UNITS/3 ML PEN SC ×3 (07:44→16:55)
[2021-03-09] MEDS: Insulin Glargine 300 UNITS/3 ML PEN 20 UNITS SC (07:44)
[2021-03-09] MEDS: Budesonide/Formoterol 160/4.5 6 GM 60 PUFF INH IH (08:00)
[2021-03-09] MEDS: metFORMIN 500 MG TAB PO (09:40)
[2021-03-09] MEDS: Magnesium Oxide 400 MG TAB 800 MG PO (09:41)
[2021-03-09] MEDS: Insulin Glargine 300 UNITS/3 ML PEN 10 UNITS SC (12:24)
[2021-03-09] MEDS: Normal Saline 250 ML IV (12:25)
[2021-03-09 12:34] LABS: Glucose 434 mg/dL (74-106)
[2021-03-09] MEDS: Insulin Aspart 300 UNITS/3 ML PEN 10 UNITS SC ×2 (12:50→16:55)
--- NOTE | 2021-03-09 13:45 | W.INDIABCONS ---
Date of service: 03/09/21 Time of Service: 13:46 Diabetes Inpatient Consult DESCRIPTION/ASSESSMENT: 70 year old female admitted with SOB with long standing hx of COPD, DM, CKD. Most recent A1C: 6.8% indicating good glycemic control. Home DM meds include metformin 500 mg BID, empagliflozin 25 mg, lantus 20 u Am and PM. Current DM home meds providing excellent glycemic control. Reviewed basic diabetes and diet principles and provided my business card for follow up in outpatient setting as needed. INTERVENTION: Provided basic diabetic education and encouraged life style modifications for optimal glycemic control PLAN: follow up as need in outpateint setting Time Spent in Nutritional Counseling and Treatment: 10
--- NOTE | 2021-03-09 15:08 | CHAPLAIN ---
I checked in with Nahed today. She said she didn't have the appointment with the grease cup filler last evening that she was anticipating, so she is not sure exactly when that will happen. Her sisters have been in to visit and are supportive.
--- NOTE | 2021-03-09 15:23 | W.PM.DS.N ---
Date of service: 03/09/21 Time of Service: 15:23 DS: Diagnosis Discharge Diagnosis (1) Acute exacerbation of chronic obstructive pulmonary disease (COPD): Status: Acute (2) Steroid-induced hyperglycemia: Status: Acute (3) Abdominal pain: Status: Resolved Asessment and Plan: due to flatus (4) Diabetes mellitus: Status: Chronic (5) Obstructive sleep apnea: Status: Chronic (6) ASCVD (arteriosclerotic cardiovascular disease): Status: Chronic (7) CKD (chronic kidney disease): Status: Chronic (8) Hypercalcemia: Status: Acute (9) COVID-19 ruled out by laboratory testing: Status: Ruled-out Discharge Plan Disposition Patient Disposition: HOME Condition: Improving Discharge Details Reason For Visit: COPD Exacerbat Admit Date/Time: 03/07/21 22:16 Admit Provider: Jonny Saini Attending Provider: Jonny Saini Primary Care Provider: [facility] Hospital Course: Ms Marquez is a 70 year old female with PMHx of O2-dependent COPD (normally on 2L of O2), as well as h/o CAD s/p recent PA, IDDM2, hypertension, who was a patient on [facility] hospitalist service from 03/07/21 until 03/09/21 for acute exacerbation of COPD. COVID-19 and bacterial pulmonary processes were ruled out. The patient was treated with scheduled and prn nebulizer treatments, continuned on symbicort, and prescribed a steroid taper. With this her respiratory symptoms improved greatly, but her blood sugars did go up. The patient is being discharged home with instructions on how to taper her steroids and a temporary insulin regimen. The patient did well on her exercise oximetry while on her home O2 at 2L. The patient reported a lower abdominal pain on the day of discharge which resolved on its own. Her KUB showed non-obstructive gas pattern, and it is likely that her pain was due to flatus. No further workup is indicated for this pain at this time, and the patient is stable for discharge home today. Care for patient as well as completion of her discharge summary on day of discharge took 45 minutes. Home Meds and New Rx's Prescriptions: New ipratropium-albuterol 0.5 mg-3 mg(2.5 mg base)/3 mL Solution For Nebulization 3 ml UPD Q6H Qty: 90 RF: 0 guaifenesin [Mucinex] 600 mg Tablet Extended Release 12hr 600 mg PO BID PRN PRN (Reason: cough) Qty: 30 RF: 0 Continued (DME) FreeStyle Basia 2 [place] Misc See Rx Instructions .ROUTE .MEDSUPPLY Qty: 1 RF: 0 (DME) FreeStyle Basia 2 Sensor Kit See Rx Instructions .ROUTE .MEDSUPPLY Qty: 6 RF: 3 pantoprazole 20 mg tablet,delayed release (DR/EC) 20 mg PO DAILY Qty: 90 RF: 3 hydrochlorothiazide 25 mg tablet 25 mg PO DAILY AM Qty: 90 RF: 3 (DME) nebulizer and compressor device See Dose Instructions .ROUTE .MEDSUPPLY Qty: 1 RF: 0 Glucagon Emergency Kit (human) 1 mg recon soln 1 mg subcut ONCE Qty: 1 RF: 0 Oxygen EACH NS At Night Qty: 2 RF: 0 multivitamin [Daily Multi-Vitamin] 1 EACH tablet 1 ea PO DAILY RF: 0 albuterol sulfate [ProAir HFA] 8.5 GM HFA aerosol inhaler 1 puff Inhalation Q4H PRN Qty: 2 RF: 3 (DME) lancets [Sure Comfort Lancets] 1 EACH misc 1 ea Miscellaneous DAILY Qty: 1 RF: 3 acetaminophen 500 MG tablet 1,000 mg PO TID PRNQty: 90 RF: 0 cyanocobalamin (vitamin B-12) 1,000 mcg tablet 1,000 mcg PO DAILY Qty: 90 RF: 3 Combivent Respimat 20-100 mcg/actuation mist 1 - 2 puff Inhalation .Q4-6H PRN (Reason: shortness of breath or wheezing) Qty: 3 RF: 3 Incruse Ellipta 62.5 mcg/actuation blister with device 62.5 mcg Inhalation DAILY Qty: 3 RF: 3 calcium carbonate-vitamin D3 600 mg(1,500mg) -800 unit tablet 2 tab PO DAILY Qty: 180 RF: 3 (DME) Blood Glucose Test Strip See Rx Instructions .ROUTE .MEDSUPPLY Qty: 400 RF: 0 metformin 500 mg tablet 500 mg PO BID MDD 1000 mg Qty: 180 RF: 3 montelukast [Singulair] 10 mg tablet 10 mg PO DAILY Qty: 90 RF: 3 (DME) pen needle, diabetic [Lite Touch Insulin Pen [place]] 31 gauge x 3/16 needle See Rx Instructions .ROUTE .MEDSUPPLY Qty: 400 RF: 3 magnesium oxide 400 mg (241.3 mg magnesium) tablet See Rx Instructions PO .COMPLEX Qty: 270 RF: 3 Jardiance 25 mg tablet 25 mg PO DAILY AM Qty: 90 RF: 3 clopidogrel 75 mg tablet 75 mg PO DAILY RF: 0 nitroglycerin 0.4 mg tablet, sublingual 0.4 mg sublingual Q5M PRNRF: 0 rosuvastatin [Crestor] 20 mg tablet 40 mg PO DAILY RF: 0 colchicine 0.6 mg tablet 0.6 mg PO DAILY RF: 0 cetirizine 10 mg tablet 10 mg PO DAILY Qty: 90 RF: 3 metoprolol succinate 50 mg tablet extended release 24 hr 50 mg PO DAILY Qty: 90 RF: 0 valsartan 80 mg tablet 80 mg PO DAILY Qty: 90 RF: 0 budesonide-formoterol [Symbicort] 160-4.5 mcg/actuation HFA aerosol inhaler 2 puff Inhalation BID Qty: 3 RF: 3 aspirin [Aspir-81] 81 MG tablet,delayed release (DR/EC) 81 mg PO DAILY Qty: 90 RF: 3 ferrous sulfate 325 mg (65 mg iron) tablet 650 mg PO TID RF: 0 Changed albuterol sulfate 2.5 mg /3 mL (0.083 %) solution for nebulization 2.5 mg IH Q4H PRN PRN (Reason: bronchospasm) Qty: 180 RF: 6 Lantus Solostar U-100 Insulin 100 unit/mL (3 mL) insulin pen See Rx Instructions .ROUTE .COMPLEX Qty: 18 RF: 3 prednisone 20 mg tablet See Rx Instructions .ROUTE .COMPLEX Qty: 20 RF: 0 insulin lispro [Humalog KwikPen Insulin] 100 unit/mL insulin pen See Rx Instructions .ROUTE .COMPLEX Qty: 0 RF: 0 Discharge Instructions Instructions: Prednisone (By mouth), COPD (Chronic Obstructive Pulmonary Disease) (DC) Additional Instructions: Follow prednisone taper instructions as above: 60 mg tonight, then 40 mg twice daily x 2 days, then 20 mg twice daily x 2 days, then 20 mg daily x 2 days, then stop. Your lantus doses for the next 3 days: 30 units twice daily x 2 doses, then 25 units twice daily x 2 doses, then 20 units twice daily as before admission. Your Humalog doses for the next 3 days: 10 units with every meal (do not do carb counting ratio) + 3 units for every 50 points that your blood sugar is over 150, i.e. 150-200: take 3 extra units in addition to the 10 units. 201-250: take 6 extra units 251-300: take 9 extra units 301-350: take 12 extra units 351-400: take 15 extra units 401 and higher: call your PCP. After the first 3 days, you can go back to your carb counting ratio and decrease the sliding scale to 2 units for every 50 points that the blood sugar is over 150. You can stop your sliding scale (additional insulin) when done with prednisone. Return to the hospital with any fever, bleeding, chest pain, or worsening sshortness of breath. Follow up with your PCP as scheduled below. Referrals: María Mendoza NP [Primary Care Provider] - 03/17/21 3:00 pm Laury Ruvalcaba [REFRIGERATING ENGINEER HEAD] - Activity:: Activity as Tolerated Equipment/Supplies:: No Equipment Needed Diet:: carb consistent heart healthy Discharge Orders Discharge Orders: Discharge Order (Routine); Ordered 03/09/21 Ordered By: Rosie Taylor DS: Summary Time Spent with Patient providing and/or coordinating discharge services: Greater than 30 minutes Status at Discharge Functional status at discharge: independent ambulation Overall status at discharge: patient is progressing back to baseline Mental Status: mental status grossly normal Speech and Movement: speech and movement normal Mood: congruent mood Affect: normal affect Exam Narrative Exam Narrative: General: Very pleasant female, A&Ox3, sitting up comfortably in bed HEENT: EOMI, MMM Heart: RRR Lungs: slight rhonchi on expiration B Abdomen: soft, nontender, nondistended Extremities: no edema BLE's Psych Mental Status: mental status grossly normal Speech and Movement: speech and movement normal Mood: congruent mood Affect: normal affect DS: Data Vitals/I&O Vitals and I&O: Vital Signs Temperature 37 C 03/09/21 11:54 Temperature Source Tympanic 03/09/21 11:54 Pulse 79 03/09/21 11:54 Pulse Rhythm Regular 03/09/21 07:40 Pulse 87 03/07/21 22:01 Respiratory Rate 22 03/09/21 11:54 Respiratory Effort Non-Labored 03/09/21 07:40 Respiratory Depth Normal 03/09/21 07:40 Respiratory Pattern Normal 03/09/21 07:40 Blood Pressure 157/71 H 03/09/21 11:54 Blood Pressure Mean 85 03/07/21 22:01 Blood Pressure Position Supine 03/07/21 18:58 Pulse Oximetry 92 03/09/21 11:54 Oxygen Delivery Method Nasal Cannula 03/09/21 11:54 Oxygen Flow Rate 2 03/09/21 11:54 Pain Level 7 03/09/21 11:54 Intake & Output 03/08/21 03/09/21 03/09/21 23:59 11:59 23:59 Intake Total 730 / 980 210 / 460 250 / 460 Output Total 500 / 500 Balance 230 / 480 210 / 460 250 / 460 Intake: IV 10 / 260 250 / 260 Oral 730 / 970 200 / 200 Output: Urine 500 / 500 Other: Urine Color Yellow Urine Appearance Clear Clear Urine Odor Normal Comment Patient reports normal urination in toilet, uses bathroom independently. Stool Size Moderate Stool Characteristics Formed Voiding Methods Toilet Data Completed and Pending Completed studies during hospitalization [Text1]: 03/08/21 CT chest/abdomen/pelvis: 1. No evidence of pulmonary embolism, thoracic aortic dissection or aneurysm. 2. Mild thickening of the wall of the distal esophagus. This may represent esophagitis. 3. No acute abdominal or pelvic process. 03/09/21 XR abdomen: 1. Nonobstructive bowel gas pattern. 2. No radiopaque calculi. Labs on day of discharge: Labs from last 24 hours 03/09/21 03/09/21 03/09/21 12:19 06:20 06:20 WBC 3.61 L RBC 3.46 L Hgb 11.0 L Hct 35.1 L MCV 101.4 H MCH 31.8 MCHC 31.3 L RDW 17.2 H Plt Count 236 MPV 9.3 Immature Gran % 2.5 Neutrophils % 86.7 Lymphocytes % 8.9 Monocytes % 1.9 Eosinophils % 0.0 Basophils % 0.0 Nucleated RBC % 0 Absolute Neutrophils 3.13 Absolute Lymphocytes 0.32 L Absolute Monocytes 0.07 L Absolute Eosinophils 0.00 Absolute Basophils 0.00 Sodium 137 Potassium 4.9 D Chloride 99 Carbon Dioxide 29.0 Anion Gap 9.0 BUN 38 H D Creatinine 1.3 H Estimated GFR/1.73 m2 40.38 Glucose 434 H D 315 H Calcium 10.3 H Magnesium 2.1 PFSH Medical History (Updated 03/09/21 @ 15:30 by Rosie aTylor MD) Allergic rhinitis Anemia (02/11/14) Suspect chronic dz/bone marrow suppression s/p breast CA tx (radiation); s/p GI workup (possible AVMs?), NL B12/folate, elevated Epo, NL retic count; chronic iron supplementation ASCVD (arteriosclerotic cardiovascular disease) Atherosclerosis of both carotid arteries (11/12/16) [place] [facility] [place] Consult: carotid US showing 16-49% stenosis both internal carotids Recommend annual carotid US Breast CA R 2001, L2003 s/p bilateral lumpectomy. S/P XRT and Tamoxifen. Chronic GI bleeding Chronic obstructive airway disease (06/04/12) [facility] [place] (Dr. Cruz) Moderate-very severe Last OV & PFTs 08/21/16 [facility] [place]-time Oxygen Per pulmonolgy() Severe-very severe KONRAD 10/31/16 CKD (chronic kidney disease) Compression fracture of lumbar vertebra (03/14/17) Depression (11/30/02) s/p of brother (on SSRI for short time) Diabetes mellitus (11/27/04) Dx'ed early Goal A1C <7.5% DJD (degenerative joint disease) (02/04/14) Lumbar spine--multiple level on MRI Surgery 10/2011, [facility] Dr. Smith Essential hypertension (05/16/04) H/O laminectomy L5S1 Headache Heart murmur 07/11/2016 echo: mild-moderate mitral regurgitation Hiatal hernia (02/11/14) Smaller portions Endoscopy 10/04 anemia (nothing found), [facility] [place] Hyperlipidemia (03/18/07) Pt on high intensity statin therapy Hypomagnesemia (03/04/17) Intraabdominal calcification (11/14/15) Incidental finding on CT 2 mm between bladder and uterus, no further eval required, AOC Iron deficiency anemia (01/02/17) S/p colo & EGD 05/2015, then capsule endoscopy & push enteroscopy with no definitive etiology identified; 11/14/2017: repeat colonoscopy (due to return of anemia) showing a colonic angioectasia, which may have been source of bleeding & anemia (no overt bleeding found). Fe supplementation & monitor Left renal artery stenosis (08/30/16) 08/21/[place] [facility] [place] Surgery consult: moderate-severe stenosis; given well-controlled HTN & normal kidney function, renal artery intervention not indicated at this t 10/2016: 3 mo f/u renal duplex US showing >60% stenosis with decent blood flow to L kidney Consider stent placement if BP becomes poorly controlled or renal function begins to deteriorate Leg cramps (04/01/14) Low Mg+ --> supplementation helped, but caused diarrhea; handout on dietary Mg+ given Microalbuminuria due to type 2 diabetes mellitus Non-ST elevation (NSTEMI) myocardial infarction (~12/2020) S/p proximal LCX stent placement Obstructive sleep apnea (03/02/14) Bipap w/ 2L 02 09/06/2019 Osteopenia (02/14/16) DEXA 02/14/16: Fem neck t-score -1.2 --> WHO FRAX major osteoporotic 13% & hip fx 1.3% risk --> does not qualify for bisphosphonates --> Ca & vit D 03/2017 L3 compression fx --> re-calc WHO FRAX major osteoporotic 21% & hip fx 2.3% risk --> now qualifies for bisphosphonate tx, started 03/2017 Probable allergic rxn to Alendronate (1st pill Wed, Hiv Th and stayed thru today (but no worsening), 07/05. Agree to STOP for now. 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 Dr Agee H/O laminectomy (~10/06/12) L5S1 Huyen Frazier, Dr. Garay Oophrectomy, Right (~2007) For unknown reason Status post coronary artery stent placement (~01/27/21) Tooth Extractions Multiple Family History Sister Breast cancer Mother , 89 Alzheimer's dementia Breast cancer Father , AGE 75 Alcohol abuse Cirrhosis Sister Neoplasm uterine CA Sister Heart disease Brother Heart disease Niece Breast cancer Social History Smoking/Tobacco Use Status: Former Tobacco Use Quit Date: 09/02/00 Pack-years: 37 Tobacco: How many years used: 25 Smoking risk assessment performed?: Yes Alcohol Intake: former Details: none Drug use: Never Substance use type: does not use Adopted: No Caregiver/Support person: No Foster care: No Household members: spouse Number of Children: 4 Communication Needs: None Pets and animals: No Current gender identity: female What type of physical activity do you participate in: regular exercise Duration: < 15 minutes/day Frequency: 3-4 times per week Mell/Restorationist: Restorationist Seatbelt use: always Drive intox or ride w/intox steam train driver: No Working smoke detector in home: Yes Fire extinguisher in home: Yes Carbon monox detector in home: Yes Do you feel safe at home: Yes Do you feel safe in your relationship?: Yes Additional Social history: Lives with in [place]. 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 She has 11 grandkids who all live close.
--- NOTE | 2021-03-09 16:21 | PDOC.CMDIS ---
- If Service Date Differs Date of service: 03/09/21 Time of Service: 16:21 LACE Index Scoring Tool - Questions: Length of Stay (in days): 2 Acuity (Admit via E.D.?): Yes Comorbidities: Previous M.I., Diabetes w/o Complication, Chronic Pulmonary Disease, Liver or Renal Disease E.D. Visits: 5 - Answers: Total Score: 14 Risk of Readmission: High Risk Care Management Discharge Reason for Hospitalization: COPD exacerbation Discharge Plan: Nahed will return home today with no additional services. Her , Isaac, will drive her home via private vehicle. Nahed did not feel that she required additional support in the home at this time. She will follow up with her PCP and discharge plan of care. She is happy to be going home. Patient/Family Education Needs: Review discharge instructions, discussion of self care needs including ask me three.
== END 2021-03-09 17:44 | disposition home or self-care (01) | DRG 191 ==
LOC: ER 22:28 → MS 22:58
PROVIDERS: Internal Medicine; Admitting Provider Family Medicine; Emergency Provider Physician Assistant; PCP Nurse Practitioner Family; Visit Provider Family Medicine
DX: J44.1 Chronic obstructive pulmonary disease with (acute) exacerbation (principal); K55.1 Chronic vascular disorders of intestine; E11.22 Type 2 diabetes mellitus with diabetic chronic kidney disease; Z79.4 Long term (current) use of insulin; E11.65 Type 2 diabetes mellitus with hyperglycemia; G47.33 Obstructive sleep apnea (adult) (pediatric); T38.0X5A Adverse effect of glucocorticoids and synthetic analogues, initial encounter; I25.10 Atherosclerotic heart disease of native coronary artery without angina pectoris; Z20.822 Contact with and (suspected) exposure to COVID-19; E83.52 Hypercalcemia; Z99.81 Dependence on supplemental oxygen; I25.2 Old myocardial infarction; I12.9 Hypertensive chronic kidney disease with stage 1 through stage 4 chronic kidney disease, or unspecified chronic kidney disease; Z85.3 Personal history of malignant neoplasm of breast; F32.9 Major depressive disorder, single episode, unspecified; I34.0 Nonrheumatic mitral (valve) insufficiency; K44.9 Diaphragmatic hernia without obstruction or gangrene; D50.9 Iron deficiency anemia, unspecified; K21.00 Gastro-esophageal reflux disease with esophagitis, without bleeding; F17.210 Nicotine dependence, cigarettes, uncomplicated; N18.9 Chronic kidney disease, unspecified
CPT/HCPCS: 36415; 36416; 71275; 74177; 80048; 80053; 82947; 82962; 84145; 85652; 87635; 93005; 94640; 99291; 74018; 83735; 83880; 84484; 85025; 85379; 86140; 93010; 99222; 99239; J3490; J7512; J7620

== ENCOUNTER 2021-03-22 03:14 | Outpatient (CLI) | payer MEDICARE, BC, SELFPAY ==
[2021-03-22 11:30] LABS: Abs Immature Grans 0.03 10^3/uL (0.0-0.06); Absolute Basophil Count 0.03 10^3/uL (0.0-0.2); Absolute Eosinophil Count 0.13 10^3/uL (0.0-0.7); Absolute Lymphocyte Count 0.96 10^3/uL (1.2-3.4); Absolute Monocyte Count 1.26 10^3/uL (0.1-0.8); Basophils % 0.5; Eosinophils % 2.2; HCT 38.8 % (36.0-46.0); HGB 12.3 g/dL (11.2-15.7); Immature Grans % 0.5; Lymphocytes % 16.5; MCH 31.1 pg (27.0-33.0); MCHC 31.7 % (32.0-36.0); MCV 98.2 fL (80-95); Monocytes % 21.7; Neutrophils % 58.6; Nucleated RBC 0 %; Platelet Count 221 10^3/uL (130-400); RBC 3.95 10^6/uL (3.93-5.22); RDW 14.9 % (11.7-14.6); RDW-SD 53.7 fL; WBC 5.81 10^3/uL (4.4-10.8)
[2021-03-22 13:29] LABS: ALT 35 U/L (14-59); AST 17 U/L (15-37); Albumin 3.6 g/dL (3.4-5.0); Alkaline Phosphatase 40 U/L (46-116); Anion Gap 10.8 mmol/L (3-11); BUN 31 mg/dL (7-18); Bilirubin, Total 0.4 mg/dL (0.2-1.0); CO2 28.2 mmol/L (21.0-32.0); CREATININE 1.3 mg/dL (0.55-1.02); Calcium 9.5 mg/dL (8.5-10.1); Chloride 101 mmol/L (98-107); Estimated GFR 40.38 (mL/min/1.73m2); Glucose 135 mg/dL (74-106); Potassium 4.5 mmol/L (3.5-5.1); Sodium 140 mmol/L (136-145); Total Protein 6.9 g/dL (6.4-8.2)
== END 2021-03-22 03:15 | disposition home or self-care (01) ==
LOC: LBO 03:15
PROVIDERS: PCP Nurse Practitioner Family; Visit Provider Nurse Practitioner Family
DX: E83.52 Hypercalcemia (principal); I10 Essential (primary) hypertension; D50.9 Iron deficiency anemia, unspecified
CPT/HCPCS: 36415; 80053; 85025

== ENCOUNTER 2021-03-24 10:00 | Outpatient (RCR) | payer MEDICARE, BC, SELFPAY | END 2021-04-01 23:59 | disposition home or self-care (01) | LOC: CR 10:00 | PROVIDERS: PCP Nurse Practitioner Family; Visit Provider Family Medicine | DX: Z51.89 Encounter for other specified aftercare (principal); I25.2 Old myocardial infarction; Z95.5 Presence of coronary angioplasty implant and graft | CPT/HCPCS: S9472 ==

== ENCOUNTER 2021-03-29 04:04 | Emergency (ER) | payer MEDICARE, BC, SELFPAY ==
[2021-03-29] VITALS (33 sets, daily range): BP systolic 128–215; BP diastolic 45–77; PULSE 69–82; RESP 8–26; TEMP 36.6; O2SAT 88–99
--- NOTE | 2021-03-29 04:00 | RT.EKG_ITS ---
APPROVED REPORT Exam: Resting ECG Reason for Exam: short of breath Patient Location: E HR:75 bpm ECG Measurements Heart Rate 75 AXIS TN 171 P 80 QRSd 84 QRS 51 QT 401 T 49 QTc 447 Conclusion Sinus rhythm...normal P axis, V-rate 60- 99 Probable left atrial enlargement...P >50mS, <-0.10mV V1 Consider anterior infarct...Q >30mS in V2-V5 I have reviewed and interpreted ECG and agree with software generated interpretation. There are no significant changes compared to prior EKG performed on 03/07/2021 at 18:59. No STEMI
--- NOTE | 2021-03-29 04:07 | ED.GENADUL_ITS ---
Discharge Plan Disposition Patient Disposition: HOME Condition: Stable Discharge Details Clinical Impression: Dyspnea, COPD, very severe Primary Care Provider: María Mendoza ED Provider: Michael Mueller Meds and New Rx's Prescriptions: Continued (DME) FreeStyle Basia 2 [place] Misc See Rx Instructions .ROUTE .MEDSUPPLY Qty: 1 RF: 0 (DME) FreeStyle Basia 2 Sensor Kit See Rx Instructions .ROUTE .MEDSUPPLY Qty: 6 RF: 3 pantoprazole 20 mg tablet,delayed release (DR/EC) 20 mg PO DAILY Qty: 90 RF: 3 hydrochlorothiazide 25 mg tablet 25 mg PO DAILY AM Qty: 90 RF: 3 Glucagon Emergency Kit (human) 1 mg recon soln 1 mg subcut ONCE Qty: 1 RF: 0 Lantus Solostar U-100 Insulin 100 unit/mL (3 mL) insulin pen 20 unit subcut BID RF: 0 triamcinolone acetonide 0.1 % cream 1 applic topical BID Qty: 15 RF: 1 Oxygen EACH NS At Night Qty: 2 RF: 0 multivitamin [Daily Multi-Vitamin] 1 EACH tablet 1 ea PO DAILY RF: 0 albuterol sulfate [ProAir HFA] 8.5 GM HFA aerosol inhaler 1 puff Inhalation Q4H PRN Qty: 2 RF: 3 (DME) lancets [Sure Comfort Lancets] 1 EACH misc 1 ea Miscellaneous DAILY Qty: 1 RF: 3 acetaminophen 500 MG tablet 1,000 mg PO TID PRNQty: 90 RF: 0 cyanocobalamin (vitamin B-12) 1,000 mcg tablet 1,000 mcg PO DAILY Qty: 90 RF: 3 Combivent Respimat 20-100 mcg/actuation mist 1 - 2 puff Inhalation .Q4-6H PRN (Reason: shortness of breath or wheezing) Qty: 3 RF: 3 calcium carbonate-vitamin D3 600 mg(1,500mg) -800 unit tablet 2 tab PO DAILY Qty: 180 RF: 3 (DME) Blood Glucose Test Strip See Rx Instructions .ROUTE .MEDSUPPLY Qty: 400 RF: 0 metformin 500 mg tablet 500 mg PO BID MDD 1000 mg Qty: 180 RF: 3 montelukast [Singulair] 10 mg tablet 10 mg PO DAILY Qty: 90 RF: 3 (DME) pen needle, diabetic [Lite Touch Insulin Pen [place]] 31 gauge x 3/16 needle See Rx Instructions .ROUTE .MEDSUPPLY Qty: 400 RF: 3 magnesium oxide 400 mg (241.3 mg magnesium) tablet See Rx Instructions PO .COMPLEX Qty: 270 RF: 3 Jardiance 25 mg tablet 25 mg PO DAILY AM Qty: 90 RF: 3 clopidogrel 75 mg tablet 75 mg PO DAILY RF: 0 nitroglycerin 0.4 mg tablet, sublingual 0.4 mg sublingual Q5M PRNRF: 0 rosuvastatin [Crestor] 20 mg tablet 40 mg PO DAILY RF: 0 colchicine 0.6 mg tablet 0.6 mg PO DAILY RF: 0 cetirizine 10 mg tablet 10 mg PO DAILY Qty: 90 RF: 3 metoprolol succinate 50 mg tablet extended release 24 hr 50 mg PO DAILY Qty: 90 RF: 0 valsartan 80 mg tablet 80 mg PO DAILY Qty: 90 RF: 0 budesonide-formoterol [Symbicort] 160-4.5 mcg/actuation HFA aerosol inhaler 2 puff Inhalation BID Qty: 3 RF: 3 Incruse Ellipta 62.5 mcg/actuation blister with device 62.5 mcg Inhalation DAILY Qty: 3 RF: 3 aspirin [Aspir-81] 81 MG tablet,delayed release (DR/EC) 81 mg PO DAILY Qty: 90 RF: 3 ferrous sulfate 325 mg (65 mg iron) tablet 650 mg PO TID RF: 0 albuterol sulfate 2.5 mg /3 mL (0.083 %) solution for nebulization 2.5 mg IH Q4H PRN PRN (Reason: bronchospasm) Qty: 180 RF: 6 Discharge Instructions Instructions: COPD (Chronic Obstructive Pulmonary Disease) (ED), Dyspnea (ED) Additional Instructions: Continue current medications but increase albuterol use from twice a day to 4 times a day. We will help facilitate making appointment with a new banquet set up person here at the hospital. Follow-up with primary care in the meantime. Return to ED for fever, cough, chest pain, increasing shortness of breath, other concerns. Referrals: Beatriz Harper MD [ [facility] STAFF PHYSICIAN] - María Mendoza NP [Primary Care Provider] - Medical Decision Making Patient presenting to ED with increasing shortness of breath that she has in reality noticed since her SC this spring. However, the last few days she has noticed problems with breathing and saturations even at rest. Tonight she had woke up a couple times with a feeling of shortness of breath and has been having difficulty lying down. She has not had any type of chest pain or pressure. She denies fever or cough. She has no leg pain or leg swelling. She does seem to be quite diminished posteriorly and has some crackles anteriorly. Current vital signs show elevated blood pressure but normal heart rate. Oxygen saturations are good on 4 L oxygen. EKG shows no acute changes and no significant change from earlier this month. Plan to obtain labs including BNP and D-dimer as well as chest x-ray and reevaluate. Patient's laboratory studies unremarkable. She has not been. Troponin is negative. BNP is normal. D-dimer is negative taking into account age adjustment. Chest x-ray looks okay to my review, pending radiology read. Consider whether an air quality interfering with her breathing as it has been significantly worse over the last couple of days. We will try DuoNeb here and wait for radiology read Radiology concurs no acute findings on x-ray. Patient feels breathing is improved after DuoNeb but still has RA oxygen levels in the mid 80s. She is feeling better. We will have her go home and continue current medications. Have her use albuterol 4 times a day as opposed to times a day given the weather and the air quality condition. She would like to start seeing the banquet set up person here as opposed to going down to [facility]. We will help make arrangements for this. Otherwise follow-up with primary care. Return to ED for fever, cough, chest pain, increasing shortness of breath, other concerns. Medical Records Medical records reviewed: Yes I reviewed the patient's medical records. Lab Data Lab results reviewed: Yes I reviewed the patient's lab results. ECG Data Attestation: I personally reviewed and interpreted this ECG (s) as follows: Prior ECG tracings: available for review Interpretation: see EKG HPI General Mode of arrival: EMS . Date/Time Provider Initiated Documentation: 03/29/21 04:05 . Limitations to Documentation: no limitations . Information obtained by: patient, EMS, RN notes reviewed and old records reviewed . HPI Narrative: Patient presents to the ED with complaint of shortness of breath. Patient has significant COPD for which she is pretty much oxygen dependent. Any type of activity or sleeping requires her to use oxygen. She is status post SC in December of this year. She has been doing cardiac rehab. She notes that she desaturates with activity more so than she did before. In the last few days she has noticed desaturations without activity. She denies having fever or cough. She is COVID vaccinated. She is not having any chest pain or pressure. She denies any leg pain or leg swelling. She takes her medications and inhalers as instructed. She does have a rescue inhaler which she uses frequently. Tonight she has woke a couple of times feeling short of breath. Last episode she also had pretty significant headache which is since resolved. No neurologic changes. No GI symptoms. Currently not feeling any more short of breath. Related Data Home Medications Medication Instructions Recorded Confirmed aspirin [Aspir-81] 81 mg PO DAILY #90 03/30/13 03/17/21 multivitamin [Daily Multi-Vitamin] 1 ea PO DAILY 03/19/17 03/17/21 albuterol sulfate [ProAir HFA] 1 puff INHALATION Q4H PRN #2 04/02/17 03/17/21 inhaler lancets [Sure Comfort Lancets] #1 box 06/24/17 03/17/21 acetaminophen 1,000 mg PO TID PRN #90 tab-cap 12/16/17 03/17/21 cyanocobalamin (vitamin B-12) 1,000 mcg PO DAILY #90 tab-cap 05/07/18 03/17/21 1,000 mcg tablet ipratropium 20 mcg-albuterol 100 1 - 2 puff INHALATION .Q4-6H PRN 10/17/18 03/17/21 mcg/actuation mist for inhalation #3 device ferrous sulfate 650 mg PO TID 05/14/20 03/17/21 calcium carbonate-vitamin D3 600 2 tab PO DAILY #180 tab-cap 08/10/20 03/17/21 mg (1,500 mg)-800 unit tablet blood sugar diagnostic #400 ea 08/29/20 03/17/21 flash glucose scanning reader #1 ea 09/09/20 03/17/21 flash glucose sensor #6 ea 09/09/20 03/17/21 metformin 500 mg tablet 500 mg PO BID #180 tab MDD 1000 mg 09/23/20 03/17/21 montelukast 10 mg tablet 10 mg PO DAILY #90 tab-cap 09/23/20 03/17/21 pen needle, diabetic 31 gauge x #400 ea 10/12/20 03/17/2111/15 glucagon (human recombinant) 1 mg 1 mg SUBCUT ONCE #1 ea 11/11/20 03/17/21 solution for injection magnesium oxide 400 mg (241.3 mg See Rx Instructions PO .COMPLEX 11/16/20 03/17/21 magnesium) tablet #270 tab-cap empagliflozin 25 mg tablet 25 mg PO DAILY AM #90 tab-cap 01/02/21 03/17/21 clopidogrel 75 mg tablet 75 mg PO DAILY 02/01/21 03/17/21 nitroglycerin 0.4 mg sublingual 0.4 mg SUBLINGUAL Q5M PRN 02/01/21 03/17/21 tablet rosuvastatin 20 mg tablet 40 mg PO DAILY tab 02/01/21 03/17/21 colchicine 0.6 mg tablet 0.6 mg PO DAILY 02/09/21 03/17/21 hydrochlorothiazide 25 mg tablet 25 mg PO DAILY AM #90 tab-cap 02/16/21 03/17/21 pantoprazole 20 mg tablet,delayed 20 mg PO DAILY #90 tab-cap 02/16/21 03/17/21 release cetirizine 10 mg tablet 10 mg PO DAILY #90 tab 03/01/21 03/17/21 metoprolol succinate 50 mg 50 mg PO DAILY #90 tab 03/01/21 03/17/21 tablet,extended release 24 hr valsartan 80 mg tablet 80 mg PO DAILY #90 tab 03/01/21 03/17/21 budesonide-formoterol HFA 160 2 puff INHALATION BID #3 inhaler 03/07/21 03/17/21 mcg-4.5 mcg/actuation aerosol inhaler albuterol sulfate 2.5 mg IH Q4H PRN PRN #180 ml 03/09/21 03/20/21 umeclidinium 62.5 mcg/actuation 62.5 mcg INHALATION DAILY #3 disk 03/14/21 03/17/21 blister powder for inhalation insulin glargine 100 unit/mL (3 20 unit SUBCUT BID syrg 03/20/21 03/20/21 mL) subcutaneous pen triamcinolone acetonide 0.1 % 1 applic TOPICAL BID #15 g 03/27/21 03/27/21 topical cream Previous Rx's Medication Instructions Recorded lancets [Sure Comfort Lancets] #1 box 06/24/17 cyanocobalamin (vitamin B-12) 1,000 mcg PO DAILY #90 tab-cap 05/07/18 1,000 mcg tablet ipratropium 20 mcg-albuterol 100 1 - 2 puff INHALATION .Q4-6H PRN 10/17/18 mcg/actuation mist for inhalation #3 device calcium carbonate-vitamin D3 600 2 tab PO DAILY #180 tab-cap 08/10/20 mg (1,500 mg)-800 unit tablet blood sugar diagnostic #400 ea 08/29/20 flash glucose scanning reader #1 ea 09/09/20 flash glucose sensor #6 ea 09/09/20 metformin 500 mg tablet 500 mg PO BID #180 tab MDD 1000 mg 09/23/20 montelukast 10 mg tablet 10 mg PO DAILY #90 tab-cap 09/23/20 pen needle, diabetic 31 gauge x #400 ea 10/12/2011/15 glucagon (human recombinant) 1 mg 1 mg SUBCUT ONCE #1 ea 11/11/20 solution for injection magnesium oxide 400 mg (241.3 mg See Rx Instructions PO .COMPLEX 11/16/20 magnesium) tablet #270 tab-cap empagliflozin 25 mg tablet 25 mg PO DAILY AM #90 tab-cap 01/02/21 hydrochlorothiazide 25 mg tablet 25 mg PO DAILY AM #90 tab-cap 02/16/21 pantoprazole 20 mg tablet,delayed 20 mg PO DAILY #90 tab-cap 02/16/21 release cetirizine 10 mg tablet 10 mg PO DAILY #90 tab 03/01/21 metoprolol succinate 50 mg 50 mg PO DAILY #90 tab 03/01/21 tablet,extended release 24 hr valsartan 80 mg tablet 80 mg PO DAILY #90 tab 03/01/21 budesonide-formoterol HFA 160 2 puff INHALATION BID #3 inhaler 03/07/21 mcg-4.5 mcg/actuation aerosol inhaler albuterol sulfate 2.5 mg IH Q4H PRN PRN #180 ml 03/09/21 umeclidinium 62.5 mcg/actuation 62.5 mcg INHALATION DAILY #3 disk 03/14/21 blister powder for inhalation triamcinolone acetonide 0.1 % 1 applic TOPICAL BID #15 g 03/27/21 topical cream Allergies Allergy/AdvReac Type Severity Reaction Status Date / Time propylene glycol Allergy Severe Rash Verified 03/29/21 04:07 petrolatum,white Allergy Intermediate rash Verified 03/29/21 04:07 [From Petroleum Jelly] adhesive tape Allergy Unknown Skin Rash Verified 03/29/21 04:07 alendronate sodium Allergy Unknown Hives Verified 03/29/21 04:07 azithromycin AdvReac Intermediate dry heaves Verified 03/29/21 04:07 and diarrhea hydrocodone bitartrate AdvReac Intermediate Nausea Verified 03/29/21 04:07 [From Vicodin] liraglutide [From Victoza] AdvReac Intermediate diarhhea Verified 03/29/21 04:07 paraben AdvReac Intermediate Skin Rash Verified 03/29/21 04:07 quaternium 15 AdvReac Intermediate generalized Verified 03/29/21 04:07 rash LANDON Inhibitors AdvReac Unknown COUGH,DYSPN Verified 03/29/21 04:07 EA oxycodone HCl [From Percocet] AdvReac Unknown NAUSEA/VOMI Verified 03/29/21 04:07 TING fragranced creams Allergy Intermediate Skin Rash Uncoded 03/29/21 04:07 parabin wax Allergy Intermediate Skin Rash Uncoded 03/29/21 04:07 diogolidinyl AdvReac Severe Skin Rash Uncoded 03/29/21 04:07 bisphenal AdvReac Intermediate Skin Rash Uncoded 03/29/21 04:07 General Stated Complaint: SOB BRUNA: 2 Review of Systems Narrative: As documented in HPI otherwise negative as below. Const: no fever, chills, weakness Resp: no cough, pleuritic pain CV: no CP, diaphoresis, edema, syncope GI: no abdominal pain, nausea, vomiting, diarrhea Neuro: no numbness, focal weakness, confusion [facility] History Allergic rhinitis Anemia (02/11/14) Suspect chronic dz/bone marrow suppression s/p breast CA tx (radiation); s/p GI workup (possible AVMs?), NL B12/folate, elevated Epo, NL retic count; chronic iron supplementation ASCVD (arteriosclerotic cardiovascular disease) Atherosclerosis of both carotid arteries (11/12/16) 10/2016 [facility] Vascular Consult: carotid US showing 16-49% stenosis both internal carotids Recommend annual carotid US Breast CA R 2002, L2003 s/p bilateral lumpectomy. S/P XRT and Tamoxifen. Chronic GI bleeding CKD (chronic kidney disease) Compression fracture of lumbar vertebra (03/14/17) COPD, very severe [facility] Pulmonology (Dr. Cruz) Depression (11/30/02) s/p of brother (on SSRI for short time) Diabetes mellitus (11/27/04) Dx'ed early Goal A1C <7.5% DJD (degenerative joint disease) (02/04/14) Lumbar spine--multiple level on MRI Surgery 10/2011, [facility] Dr. Smith Essential hypertension (05/16/04) H/O laminectomy L5S1 Headache Heart murmur 07/11/2016 echo: mild-moderate mitral regurgitation Hiatal hernia (02/11/14) Smaller portions Endoscopy 10/04 anemia (nothing found), [facility] Hyperlipidemia (03/18/07) Pt on high intensity statin therapy Hypomagnesemia (03/04/17) Intraabdominal calcification (11/14/15) Incidental finding on CT 2 mm between bladder and uterus, no further eval required, [facility] Iron deficiency anemia (01/02/17) S/p colo & EGD 05/2015, then capsule endoscopy & push enteroscopy with no defi nitive etiology identified; 11/14/2017: repeat colonoscopy (due to return of anemia) showing a colonic angioectasia, which may have been source of bleeding & anemia (no overt bleeding found). Fe supplementation & monitor Left renal artery stenosis (08/30/16) 08/21/16 [facility] Vascular Surgery consult: moderate-severe stenosis; given well- controlled HTN & normal kidney function, renal artery intervention not indicated at this t 10/2016: 3 mo f/u renal duplex US showing >60% stenosis with decent blood flow to L kidney Consider stent placement if BP becomes poorly controlled or renal function begins to deteriorate Leg cramps (04/01/14) Low Mg+ --> supplementation helped, but caused diarrhea; handout on dietary Mg+ given Microalbuminuria due to type 2 diabetes mellitus Non-ST elevation (NSTEMI) myocardial infarction (~12/2020) S/p proximal LCX stent placement Obstructive sleep apnea (03/02/14) Bipap w/ 2L 02 09/06/2019 Osteopenia (02/14/16) DEXA 02/14/16: Fem neck t-score -1.2 --> WHO FRAX major osteoporotic 13% & hip fx 1.3% risk --> does not qualify for bisphosphonates --> Ca & vit D 03/2017 L3 compression fx --> re-calc WHO FRAX major osteoporotic 21% & hip fx 2.3% risk --> now qualifies for bisphosphonate tx, started 03/2017 Probable allergic rxn to Alendronate (1st pill Sat, and stayed thru today (but no worsening), 07/05. Agree to STOP for now. 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 Dr Agee H/O laminectomy (~10/06/12) L5S1 Huyen Frazier, Dr. Garay Oophrectomy, Right (~2007) For unknown reason Status post coronary artery stent placement (~01/27/21) Tooth Extractions Multiple Family History Sister Breast cancer Mother , 89 Alzheimer's dementia Breast cancer Father , AGE 75 Alcohol abuse Cirrhosis Sister Neoplasm uterine CA Sister Heart disease Brother Heart disease Niece Breast cancer Social History Smoking/Tobacco Use Status: Former Tobacco Use Quit Date: 09/02/00 Pack-years: 37 Tobacco: How many years used: 25 Smoking risk assessment performed?: Yes Alcohol Intake: former Details: none Drug use: Never Substance use type: does not use Adopted: No Caregiver/Support person: No Foster care: No Household members: spouse Number of Children: 4 Communication Needs: None Pets and animals: No Current gender identity: female What type of physical activity do you participate in: regular exercise Duration: < 15 minutes/day Frequency: 3-4 times per week Mell/Yazidi: Congregational Seatbelt use: always Drive intox or ride w/intox transit bus driver: No Working smoke detector in home: Yes Fire extinguisher in home: Yes Carbon monox detector in home: Yes Do you feel safe at home: Yes Do you feel safe in your relationship?: Yes Additional Social history: Lives with in [place]. 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 She has 11 grandkids who all live close. Exam Narrative Exam Narrative: Const: WDWN elderly female in [facility]. HEENT: NC/AT. Normal facial exam. Eyes: Normal conjunctiva and sclera. Neck: Supple. Trachea midline. Lungs: Normal respiratory effort. Lungs are markedly diminished posteriorly with crackles heard anteriorly. Cor: RRR without murmur/gallop. Good radial pulses. GI: Soft. NT/ND. No guarding or rebound Neuro: A+O x 3. Normal speech, mentation, gait. Cranial nerves II - XII grossly intact. No gross motor or sensory deficit. Ext: No C/C/E. No calf tenderness Skin: Warm and dry without rash. Course Vital Signs Vital signs: Vital Signs Temperature 97.8 F 03/29/21 03:58 Pulse 82 03/29/21 03:58 Respiratory Rate 24 03/29/21 03:58 Blood Pressure 171/67 H 03/29/21 03:58 Pulse Oximetry 96 03/29/21 03:58 Temperature 97.8 F 03/29/21 03:58 Temperature Source Oral 03/29/21 03:58 Pulse 82 03/29/21 03:58 Respiratory Rate 24 03/29/21 03:58 Blood Pressure 171/67 H 03/29/21 03:58 Blood Pressure Position Supine 03/29/21 03:58 Pulse Oximetry 96 03/29/21 03:58 Oxygen Delivery Method Nasal Cannula 03/29/21 03:58 Oxygen Flow Rate 2 03/29/21 03:58 Pain Level 0 03/29/21 03:58
--- NOTE | 2021-03-29 04:15 | DI.RAD_ITS ---
Exam(s) XR CHEST 2V PA LATERAL EXAM: XR CHEST 2V PA LATERAL CLINICAL HISTORY: SOB. TECHNIQUE: 2D digital imaging was performed. COMPARISON: CR XR CHEST 2V PA LATERAL from 01/26/2021 FINDINGS: Heart size is normal. The mediastinum is not widened. Lungs are clear. No infiltrates nor pleural effusions. Chest leads in place. IMPRESSION: No acute pulmonary findings. DATA REPOSITORY: RADIATION DOSE DELIVERED:
[2021-03-29 04:29] LABS: Abs Immature Grans 0.04 10^3/uL (0.0-0.06); Absolute Basophil Count 0.02 10^3/uL (0.0-0.2); Absolute Eosinophil Count 0.19 10^3/uL (0.0-0.7); Absolute Lymphocyte Count 0.72 10^3/uL (1.2-3.4); Absolute Monocyte Count 0.59 10^3/uL (0.1-0.8); Absolute Neutrophil Count 1.85 10^3/uL (1.2-6.7); Basophils % 0.6; Eosinophils % 5.6; HCT 36.6 % (36.0-46.0); HGB 11.9 g/dL (11.2-15.7); Immature Grans % 1.2; Lymphocytes % 21.1; MCH 31.9 pg (27.0-33.0); MCHC 32.5 % (32.0-36.0); MCV 98.1 fL (80-95); MPV 9.1 fL (8.0-11.0); Monocytes % 17.3; Neutrophils % 54.2; Nucleated RBC 0 %; Platelet Count 179 10^3/uL (130-400); RBC 3.73 10^6/uL (3.93-5.22); RDW 14.7 % (11.7-14.6); WBC 3.41 10^3/uL (4.4-10.8)
[2021-03-29 04:51] LABS: ALT 35 U/L (14-59); AST 21 U/L (15-37); Albumin 3.5 g/dL (3.4-5.0); Alkaline Phosphatase 39 U/L (46-116); Anion Gap 6.5 mmol/L (3-11); BUN 22 mg/dL (7-18); Bilirubin, Total 0.3 mg/dL (0.2-1.0); CO2 31.5 mmol/L (21.0-32.0); CREATININE 1.1 mg/dL (0.55-1.02); Calcium 9.6 mg/dL (8.5-10.1); Chloride 101 mmol/L (98-107); Estimated GFR 48.96 (mL/min/1.73m2); Glucose 133 mg/dL (74-106); Magnesium 2.3 mg/dL (1.8-2.4); NT-proBNP 290 pg/mL (<300); Potassium 4.1 mmol/L (3.5-5.1); Sodium 139 mmol/L (136-145); Total Protein 7.4 g/dL (6.4-8.2)
[2021-03-29 04:52] LABS: Troponin I < 0.05 ng/mL (<0.06)
[2021-03-29 05:13] LABS: D-Dimer 630 ng/mlFEU (<500)
--- NOTE | 2021-03-29 05:26 | NUR.NOTE ---
Nursing Note: Dr Mueller at bedside to speak with patient.
[2021-03-29] MEDS: Albuterol/Ipratropium 3 ML UPD VIAL UPD (05:36)
--- NOTE | 2021-03-29 06:20 | NUR.NOTE ---
Nursing Note: Patient trial off of oxygen, O2 sats dropped to 84% on room air, Dr. Mueller made aware. Patient placed back on oxygen at 2L/min via NC.
--- NOTE | 2021-03-29 06:32 | DI.VRAD_ITS ---
PROCEDURE INFORMATION: Exam: XR Chest Exam date and time: 03/29/2021 4:19 AM Age: 70 years old Clinical indication: Other: SOB TECHNIQUE: Imaging protocol: XR of the chest. Views: 2 views. COMPARISON: CR XR CHEST 2V PA LATERAL 01/26/2021 3:28 PM FINDINGS: Lungs: No airspace consolidations to suggest pneumonia. Pleural spaces: Mild biapical pleural thickening. No pneumothorax. Heart/Mediastinum: Coronary stent noted. No evidence of cardiomegaly. Vasculature: Atherosclerotic calcifications at the aortic arch. Bones/joints: Mild levoscoliosis of the lower thoracic/upper lumbar spine. IMPRESSION: No acute findings. Dictated and Authenticated by: Robbi Godoy MD. Ordering:ARIADNA Rodriguez MD
--- NOTE | 2021-03-29 08:08 | NUR.NOTE ---
Nursing Note: Referral to [facility] Pulmonology, for COPD/shortness of breath, ROULA, Anisa Good
== END 2021-03-29 07:25 | disposition home or self-care (01) ==
LOC: ER 07:02
PROVIDERS: Emergency Provider Emergency Medicine; PCP Nurse Practitioner Family
DX: R06.00 Dyspnea, unspecified (principal); J44.9 Chronic obstructive pulmonary disease, unspecified; Z87.891 Personal history of nicotine dependence
CPT/HCPCS: 80053; 93005; 94640; 99284; 71046; 83735; 83880; 84484; 85025; 85379; 93010; 99283; J7620

== ENCOUNTER 2021-04-17 03:42 | Outpatient (CLI) | payer MEDICARE, BC, SELFPAY ==
[2021-04-17] MEDS: Inhaler, Assist Device 1 EACH MC (08:36)
[2021-04-17] MEDS: Albuterol HFA 18 GM 200 PUFF INH IH (08:36)
--- NOTE | 2021-04-17 12:50 | W.PFT ---
Date of service: 04/17/21 Time of Service: 08:00 Pulmonary Function Test Result Requesting Provider Meredith Interpretation Spirometry: There is very severe airflow limitation. There is no significant bronchodilator response. The flow volume loop and the volume-time curve are consistent with very severe obstructive lung disease. Lung Volumes: There is no hyperinflation but there is some evidence of air trapping. Diffusion Capacity: Diffusion is severely decreased. Airway Pressure: There is significant increases in airways resistance. Impression Pulmonary function testing consistent with very severe obstructive lung disease without a bronchodilator response. Note: As compared to 04/04/2019 her FEV1 and FVC have decreased significantly. Clinical Correlation therefore is recommended.
== END 2021-04-17 03:43 ==
LOC: RT 03:43
PROVIDERS: PCP Nurse Practitioner Family; Visit Provider Student in an Organized Health Care Education/Training Program
DX: J44.9 Chronic obstructive pulmonary disease, unspecified (principal)
CPT/HCPCS: 94060; 94726; 94729

== ENCOUNTER 2021-05-01 01:29 | Outpatient (CLI) | payer MEDICARE, BC, SELFPAY ==
--- NOTE | 2021-05-01 | DI.US_ITS ---
Exam(s) US BREAST LT LIMITED MG MAMMO SCREENING 60 MIN DUR EXAM: MG MAMMO SCREENING 60 MIN DUR and U/S breast LT limited CLINICAL HISTORY: breast cancer screening,PERSONAL H/O BREAST CA,Z12.39. TECHNIQUE: Craniocaudal and mediolateral oblique Full Field Digital Mammography views with Computer Aided Diagnosis followed by Tomosynthesis and left breast ultrasound. COMPARISON: Priors available for comparison. FINDINGS: Mammography/Tomosynthesis: Masses/Architectural Distortion: Bilateral lumpectomies. There is a new 0.8 cm focal asymmetry in th e upper-outer quadrant of the left breast. There do appear to be associated microcalcifications. Microcalcifictions: Please see the above discussion. Skin Thickening/Nipple Retraction: Postsurgical changes in the skin and axilla. Left breast US: Echotexture: Normal appearance of the glandular tissue. Shadowing: No suspicious foci. Cyst: None. Solid lesions: There is a 0.8 x 0.6 x 0.5 cm hypoechoic irregular vascular lesion at the 2 o'clock po sition of the left breast 3 cm from the nipple. This corresponds to the mammographic abnormality. M ild vascularity is noted internally. There are few echogenic foci seen internally which may represen t calcifications. Ductal dilation: None. IMPRESSION: 1. New 0.8 cm hypoechoic mass at the 2 o'clock position of the left breast 3 cm from the nipple. 2. Findings are highly suspicious. 3. The findings were discussed with the patient and their PCP, Laura Calvin on the date of the exami nation. BI-RADS Category 5 - Highly Suggestive of Malignancy: Biopsy recommended Breast Density - Category B - Scattered areas of fibroglandular density Breast density Category C or D implies that the patient has dense breast tissue. Dense breast tissue can make it harder to find cancer on a mammogram. Dense breast tissue is also associated with an incr eased risk of breast cancer. This information about the result of the mammogram report was provided to the patient to raise their awareness. Use this report when you speak with the patient about their risks for breast cancer, which includes their family history. At that time, you may recommend additional screening tests (Ultrasoun d or MRI) as these tests may add significant information. A negative radiographic report should not delay biopsy if a dominant or clinically suspicious mass is present. Up to ten percent of cancers are not identified on mammography. A negative report may reinforce clinical impression. Adenosis and dense breasts may obscure an underlying neoplasm. False positive reports average 6 to 10%. Patient will receive a letter notifying them of these results.
== END 2021-05-01 01:49 ==
PROVIDERS: PCP Nurse Practitioner Family; Visit Provider Nurse Practitioner Family
DX: Z12.39 Encounter for other screening for malignant neoplasm of breast (principal); R92.8 Other abnormal and inconclusive findings on diagnostic imaging of breast; Z85.3 Personal history of malignant neoplasm of breast; N63.21 Unspecified lump in the left breast, upper outer quadrant
CPT/HCPCS: 76642; 77063; 77067

== ENCOUNTER 2021-05-01 10:00 | Outpatient (RCR) | payer MEDICARE, BC, SELFPAY | END 2021-05-02 23:59 | disposition home or self-care (01) | LOC: CR 10:00 | PROVIDERS: PCP Nurse Practitioner Family; Visit Provider Family Medicine | DX: Z51.89 Encounter for other specified aftercare (principal); I25.2 Old myocardial infarction; Z95.5 Presence of coronary angioplasty implant and graft | CPT/HCPCS: S9472 ==

== ENCOUNTER 2021-05-05 08:37 | Emergency (ER) | payer MEDICARE, BC, SELFPAY ==
[2021-05-05 08:42] VITALS: BP 144/50; PULSE 88; RESP 16; TEMP 36.7; O2SAT 96
--- NOTE | 2021-05-05 09:00 | DI.CT_ITS ---
Exam(s) CT LUMBAR SPINE RECONS CT ABDOMEN PELVIS W EXAM: CT ABDOMEN PELVIS W INDICATION: flank and pelvic pain. COMPARISON: CT CT CHEST PE ABD PELVIS W from 03/07/[address] CHEST PE ABD PELVIS W from 03/07/[address] LUMBAR SPINE RECONS from 05/05/2021 TECHNIQUE: FINDINGS: CT examination of the abdomen and pelvis was performed with a bolus infusion of 100 cc of Omnipaque 3 50. Images obtained through the lung bases are unremarkable. Lumbar spine reconstructions were also obtained. The liver is unremarkable in appearance. Gallbladder and bile ducts are CT normal. Pancreas appears normal. Spleen is unremarkable in appearance. Adrenals appear normal. The kidneys are unremarkable with no evidence of hydronephrosis, nephrolithiasis, or renal mass.. Ur inary bladder unremarkable. Abdominal aorta is of normal diameter. There is marked calcific atheromatous plaque of aorta and bra nch vessels. There is a probable high-grade stenosis of the proximal left renal artery. No abdominal wall hernia. No abdominal or pelvic adenopathy. DEVELOPER ARCHITECT structures appear unremarkable for age. Appendix is normal. No evidence of diverticulitis or bowel obstruction. Previously noted L3 vertebral body compression fracture seen on prior CT of March 07 is again noted u nchanged IMPRESSION: No evidence of acute intra-abdominal process. Stable L3 vertebral body compression fracture, no evidence of spinal canal involvement. Marked atheromatous disease of abdominal aorta and major visceral branches, suspect high-grade stenos is of the origin of left renal artery. RADIATION DOSE DELIVERED: Total DLP Total DLP CTDIvol RADIATION OPTIMIZATION: All CT scans at this facility use at least one of these dose optimization te chniques: automated exposure control; mA and/or kV adjustment per patient size (includes targeted exa ms where dose is matched to clinical indication); or iterative reconstruction.
--- NOTE | 2021-05-05 09:03 | W.ED.GENAD ---
Discharge Plan Disposition Patient Disposition: HOME Condition: Stable Discharge Details Clinical Impression: Back pain Primary Care Provider: María Mendoza ED Provider: Kelli Patel Home Meds and New Rx's Prescriptions: Continued pantoprazole 20 mg tablet,delayed release (DR/EC) 20 mg PO DAILY Qty: 90 RF: 3 hydrochlorothiazide 25 mg tablet 25 mg PO DAILY AM Qty: 90 RF: 3 albuterol sulfate [ProAir HFA] 90 mcg/actuation HFA aerosol inhaler 1 - 2 puff Inhalation Q4H PRN Qty: 8.5 RF: 1 Glucagon Emergency Kit (human) 1 mg recon soln 1 mg subcut ONCE Qty: 1 RF: 0 triamcinolone acetonide 0.1 % cream 1 applic topical BID Qty: 15 RF: 1 Trelegy Ellipta 100-62.5-25 mcg blister with device 1 inh inhalation DAILY Qty: 60 RF: 8 roflumilast 250 mcg tablet 250 mcg PO DAILY 28 Days Qty: 28 RF: 0 loperamide [Anti-Diarrheal (loperamide)] 2 mg tablet 2 mg PO Q6H PRNRF: 0 Oxygen EACH NS At Night Qty: 2 RF: 0 multivitamin [Daily Multi-Vitamin] 1 EACH tablet 1 ea PO DAILY RF: 0 (DME) lancets [Sure Comfort Lancets] 1 EACH misc 1 ea Miscellaneous DAILY Qty: 1 RF: 3 acetaminophen 500 MG tablet 1,000 mg PO TID PRNQty: 90 RF: 0 cyanocobalamin (vitamin B-12) 1,000 mcg tablet 1,000 mcg PO DAILY Qty: 90 RF: 3 calcium carbonate-vitamin D3 600 mg(1,500mg) -800 unit tablet 2 tab PO DAILY Qty: 180 RF: 3 (DME) Blood Glucose Test Strip See Rx Instructions .ROUTE .MEDSUPPLY Qty: 400 RF: 0 metformin 500 mg tablet 500 mg PO BID MDD 1000 mg Qty: 180 RF: 3 montelukast [Singulair] 10 mg tablet 10 mg PO DAILY Qty: 90 RF: 3 (DME) pen needle, diabetic [Lite Touch Insulin Pen Mckenzie] 31 gauge x 3/16 needle See Rx Instructions .ROUTE .MEDSUPPLY Qty: 400 RF: 3 magnesium oxide 400 mg (241.3 mg magnesium) tablet See Rx Instructions PO .COMPLEX Qty: 270 RF: 3 Jardiance 25 mg tablet 25 mg PO DAILY AM Qty: 90 RF: 3 nitroglycerin 0.4 mg tablet, sublingual 0.4 mg sublingual Q5M PRNRF: 0 rosuvastatin [Crestor] 20 mg tablet 40 mg PO DAILY RF: 0 colchicine 0.6 mg tablet 0.6 mg PO DAILY RF: 0 cetirizine 10 mg tablet 10 mg PO DAILY Qty: 90 RF: 3 metoprolol succinate 50 mg tablet extended release 24 hr 50 mg PO DAILY Qty: 90 RF: 0 valsartan 80 mg tablet 80 mg PO DAILY Qty: 90 RF: 0 budesonide-formoterol [Symbicort] 160-4.5 mcg/actuation HFA aerosol inhaler 2 puff Inhalation BID Qty: 3 RF: 3 Incruse Ellipta 62.5 mcg/actuation blister with device 62.5 mcg Inhalation DAILY Qty: 3 RF: 3 clopidogrel 75 mg tablet 75 mg PO DAILY Qty: 90 RF: 3 rosuvastatin 40 mg tablet 40 mg PO DAILY Qty: 90 RF: 3 albuterol sulfate 2.5 mg /3 mL (0.083 %) solution for nebulization 2.5 mg IH Q4H PRN (Reason: bronchospasm) Qty: 180 RF: 6 Lantus Solostar U-100 Insulin 100 unit/mL (3 mL) insulin pen See Rx Instructions subcut BID Qty: 13 RF: 3 insulin lispro [Humalog KwikPen Insulin] 100 unit/mL insulin pen 4 - 6 unit subcut TID PRN (Reason: high blood sugar) Qty: 6 RF: 3 (DME) FreeStyle Basia 2 [facility] Misc See Rx Instructions .ROUTE .MEDSUPPLY Qty: 1 RF: 0 (DME) FreeStyle Basia 2 Sensor Kit See Rx Instructions .ROUTE .MEDSUPPLY Qty: 6 RF: 3 aspirin [Aspir-81] 81 MG tablet,delayed release (DR/EC) 81 mg PO DAILY Qty: 90 RF: 3 ferrous sulfate 325 mg (65 mg iron) tablet 650 mg PO TID RF: 0 Discharge Instructions Instructions: Back Pain (ED) Additional Instructions: Please follow-up with your primary care physician and your vascular surgeon, I have placed a call for follow-up No heavy lifting or repetitive motion You may take Tylenol 650 mg to 1 g every 6 hours as needed for pain You may use [id number] diclofenac gel for discomfort You have an area of stenosis or narrowing in your renal artery, please follow-up with your vascular doctor regarding this, I have placed follow-up for you but if you do not hear from them I recommend calling your doctor to establish follow-up Please return earlier should you have new or worsening complaints including difficulty with urinating, fever, chills, or any additional complaints at this time Discharge Data Discharge Date/Time-TO BE ENTERED AT DEPARTURE: 05/05/21 12:50 Medical Decision Making Patient appears well, her CT scan does not show acute abnormality, she does appear to be a vasculopath and has connected to her renal artery per radiology interpretation, I discussed with Dr. East these results She is referred to her vascular surgeon at [facility] and will need follow-up next week This is an incidental finding and not likely contributing to her current symptoms She is resting comfortably in room, she is ambulatory with steady gait, she has been otherwise nonfocal exam and diagnostic labs are reassuring Diagnostic labs are stable for patient wound compared to prior including reevaluation of hemoglobin and hematocrit Given a threshold to return with new or worsening complaints Medical Records Medical records reviewed: Yes I reviewed the patient's medical records. Lab Data Lab results reviewed: Yes I reviewed the patient's lab results. HPI General Date/Time Provider Initiated Documentation: 05/05/21 08:39. Limitations to Documentation: no limitations. Information obtained by: patient. HPI Narrative: This chronically unwell 70-year-old female with history of coronary artery disease, diabetes, hypertension, hyperlipidemia, COPD, oxygen dependency presents with report of flank pain which started 3 days ago. She states that this pain wakes her from sleep. She states she does have a history of back pain but this is slightly different. She is concerned for kidney stones although she does state the pain radiates across the entirety of her lower back. She denies any groin numbness, strength or sensation change to her right lower extremity she does have some intermittent paresthesias to her left lower extremity but denies any associated weakness. She denies any fever or chills. Her blood sugars have reportedly been within normal limits. She denies known exacerbating or alleviating factors. She has been doing her cardiac rehab without incident. She denies any hematuria, dysuria, frequency. Related Data Home Medications Medication Instructions Recorded Confirmed aspirin [Aspir-81] 81 mg PO DAILY #90 03/30/13 05/05/21 multivitamin [Daily Multi-Vitamin] 1 ea PO DAILY 03/19/17 05/05/21 lancets [Sure Comfort Lancets] #1 box 06/24/17 05/05/21 acetaminophen 1,000 mg PO TID PRN #90 tab-cap 12/16/17 05/05/21 cyanocobalamin (vitamin B-12) 1,000 mcg PO DAILY #90 tab-cap 05/07/18 05/05/21 1,000 mcg tablet ferrous sulfate 650 mg PO TID 05/14/20 05/05/21 calcium carbonate-vitamin D3 600 2 tab PO DAILY #180 tab-cap 08/10/20 05/05/21 mg (1,500 mg)-800 unit tablet blood sugar diagnostic #400 ea 08/29/20 05/05/21 metformin 500 mg tablet 500 mg PO BID #180 tab MDD 1000 mg 09/23/20 05/05/21 montelukast 10 mg tablet 10 mg PO DAILY #90 tab-cap 09/23/20 05/05/21 pen needle, diabetic 31 gauge x #400 ea 10/12/20 05/05/2111/15 glucagon (human recombinant) 1 mg 1 mg SUBCUT ONCE #1 ea 11/11/20 05/05/21 solution for injection magnesium oxide 400 mg (241.3 mg See Rx Instructions PO .COMPLEX 11/16/20 05/05/21 magnesium) tablet #270 tab-cap empagliflozin 25 mg tablet 25 mg PO DAILY AM #90 tab-cap 01/02/21 05/05/21 nitroglycerin 0.4 mg sublingual 0.4 mg SUBLINGUAL Q5M PRN 02/01/21 05/05/21 tablet rosuvastatin 20 mg tablet 40 mg PO DAILY tab 02/01/21 05/05/21 colchicine 0.6 mg tablet 0.6 mg PO DAILY 02/09/21 05/05/21 hydrochlorothiazide 25 mg tablet 25 mg PO DAILY AM #90 tab-cap 02/16/21 05/05/21 pantoprazole 20 mg tablet,delayed 20 mg PO DAILY #90 tab-cap 02/16/21 05/05/21 release cetirizine 10 mg tablet 10 mg PO DAILY #90 tab 03/01/21 05/05/21 metoprolol succinate 50 mg 50 mg PO DAILY #90 tab 03/01/21 05/05/21 tablet,extended release 24 hr valsartan 80 mg tablet 80 mg PO DAILY #90 tab 03/01/21 05/05/21 budesonide-formoterol HFA 160 2 puff INHALATION BID #3 inhaler 03/07/21 05/05/21 mcg-4.5 mcg/actuation aerosol inhaler umeclidinium 62.5 mcg/actuation 62.5 mcg INHALATION DAILY #3 disk 03/14/21 05/05/21 blister powder for inhalation triamcinolone acetonide 0.1 % 1 applic TOPICAL BID #15 g 03/27/21 05/05/21 topical cream loperamide 2 mg tablet 2 mg PO Q6H PRN 04/06/21 05/05/21 albuterol sulfate 90 mcg/actuation 1 - 2 puff INHALATION Q4H PRN #8.5 04/10/21 05/05/21 aerosol inhaler g fluticasone fur. 100 mcg-umeclid 1 inh INHALATION DAILY #60 ea 04/12/21 05/05/21 62.5 mcg-vilant 25 mcg inhalat.powder roflumilast 250 mcg tablet 250 mcg PO DAILY 28 Days #28 tab 04/12/21 05/05/21 clopidogrel 75 mg tablet 75 mg PO DAILY #90 tab 04/26/21 05/05/21 rosuvastatin 40 mg tablet 40 mg PO DAILY #90 tab 04/26/21 05/05/21 albuterol sulfate 2.5 mg IH Q4H PRN #180 ml 05/03/21 05/05/21 insulin glargine 100 unit/mL (3 See Rx Instructions SUBCUT BID #13 05/03/21 05/05/21 mL) subcutaneous pen syrg flash glucose scanning reader #1 ea 05/04/21 05/05/21 flash glucose sensor #6 ea 05/04/21 05/05/21 insulin lispro 100 unit/mL 4 - 6 unit SUBCUT TID PRN #6 syrg 05/04/21 05/05/21 subcutaneous pen Previous Rx's Medication Instructions Recorded lancets [Sure Comfort Lancets] #1 box 06/24/17 cyanocobalamin (vitamin B-12) 1,000 mcg PO DAILY #90 tab-cap 05/07/18 1,000 mcg tablet calcium carbonate-vitamin D3 600 2 tab PO DAILY #180 tab-cap 08/10/20 mg (1,500 mg)-800 unit tablet blood sugar diagnostic #400 ea 08/29/20 metformin 500 mg tablet 500 mg PO BID #180 tab MDD 1000 mg 09/23/20 montelukast 10 mg tablet 10 mg PO DAILY #90 tab-cap 09/23/20 pen needle, diabetic 31 gauge x #400 ea 10/12/2011/15 glucagon (human recombinant) 1 mg 1 mg SUBCUT ONCE #1 ea 11/11/20 solution for injection magnesium oxide 400 mg (241.3 mg See Rx Instructions PO .COMPLEX 11/16/20 magnesium) tablet #270 tab-cap empagliflozin 25 mg tablet 25 mg PO DAILY AM #90 tab-cap 01/02/21 hydrochlorothiazide 25 mg tablet 25 mg PO DAILY AM #90 tab-cap 02/16/21 pantoprazole 20 mg tablet,delayed 20 mg PO DAILY #90 tab-cap 02/16/21 release cetirizine 10 mg tablet 10 mg PO DAILY #90 tab 03/01/21 metoprolol succinate 50 mg 50 mg PO DAILY #90 tab 03/01/21 tablet,extended release 24 hr valsartan 80 mg tablet 80 mg PO DAILY #90 tab 03/01/21 budesonide-formoterol HFA 160 2 puff INHALATION BID #3 inhaler 03/07/21 mcg-4.5 mcg/actuation aerosol inhaler umeclidinium 62.5 mcg/actuation 62.5 mcg INHALATION DAILY #3 disk 03/14/21 blister powder for inhalation triamcinolone acetonide 0.1 % 1 applic TOPICAL BID #15 g 03/27/21 topical cream albuterol sulfate 90 mcg/actuation 1 - 2 puff INHALATION Q4H PRN #8.5 04/10/21 aerosol inhaler g fluticasone fur. 100 mcg-umeclid 1 inh INHALATION DAILY #60 ea 04/12/21 62.5 mcg-vilant 25 mcg inhalat.powder roflumilast 250 mcg tablet 250 mcg PO DAILY 28 Days #28 tab 04/12/21 clopidogrel 75 mg tablet 75 mg PO DAILY #90 tab 04/26/21 rosuvastatin 40 mg tablet 40 mg PO DAILY #90 tab 04/26/21 albuterol sulfate 2.5 mg IH Q4H PRN #180 ml 05/03/21 insulin glargine 100 unit/mL (3 See Rx Instructions SUBCUT BID #13 05/03/21 mL) subcutaneous pen syrg flash glucose scanning reader #1 ea 05/04/21 flash glucose sensor #6 ea 05/04/21 insulin lispro 100 unit/mL 4 - 6 unit SUBCUT TID PRN #6 syrg 05/04/21 subcutaneous pen Allergies Allergy/AdvReac Type Severity Reaction Status Date / Time propylene glycol Allergy Severe Rash Verified 05/05/21 08:51 petrolatum,white Allergy Intermediate rash Verified 05/05/21 08:51 [From Petroleum Jelly] adhesive tape Allergy Unknown Skin Rash Verified 05/05/21 08:51 alendronate sodium Allergy Unknown Hives Verified 05/05/21 08:51 azithromycin AdvReac Intermediate dry heaves Verified 05/05/21 08:51 and diarrhea hydrocodone bitartrate AdvReac Intermediate Nausea Verified 05/05/21 08:51 [From Vicodin] liraglutide [From Victoza] AdvReac Intermediate diarhhea Verified 05/05/21 08:51 paraben AdvReac Intermediate Skin Rash Verified 05/05/21 08:51 quaternium 15 AdvReac Intermediate generalized Verified 05/05/21 08:51 rash LANDON Inhibitors AdvReac Unknown COUGH,DYSPN Verified 05/05/21 08:51 EA oxycodone HCl [From Percocet] AdvReac Unknown NAUSEA/VOMI Verified 05/05/21 08:51 TING fragranced creams Allergy Intermediate Skin Rash Uncoded 05/05/21 08:51 parabin wax Allergy Intermediate Skin Rash Uncoded 05/05/21 08:51 diogolidinyl AdvReac Severe Skin Rash Uncoded 05/05/21 08:51 bisphenal AdvReac Intermediate Skin Rash Uncoded 05/05/21 08:51 General Stated Complaint: FlankPain BRUNA: 3 Review of Systems All systems reviewed & are unremarkable except as noted in HPI and below [facility] Medical History (Updated 05/05/21 @ 12:27 by JONO Castillo) Allergic rhinitis Anemia (02/11/14) Suspect chronic dz/bone marrow suppression s/p breast CA tx (radiation); s/p GI workup (possible AVMs?), NL B12/folate, elevated Epo, NL retic count; chronic iron supplementation ASCVD (arteriosclerotic cardiovascular disease) Atherosclerosis of both carotid arteries (11/12/16) [place] [facility] [place]: carotid US showing 16-49% stenosis both internal carotids Recommend annual carotid US Breast CA R 2002, L2003 s/p bilateral lumpectomy. S/P XRT and Tamoxifen. Chronic GI bleeding CKD (chronic kidney disease) Compression fracture of lumbar vertebra (03/14/17) COPD, very severe [facility] [place]. Cruz) Depression (11/30/02) s/p of brother (on SSRI for short time) Diabetes mellitus (11/27/04) Dx'ed early Goal A1C <7.5% DJD (degenerative joint disease) (02/04/14) Lumbar spine--multiple level on MRI Surgery 10/2011, [facility] Dr. Smith Essential hypertension (05/16/04) H/O laminectomy L5S1 Headache Heart murmur 07/11/2016 echo: mild-moderate mitral regurgitation Hiatal hernia (02/11/14) Smaller portions Endoscopy 10/04 anemia (nothing found), [facility] [place] Hyperlipidemia (03/18/07) Pt on high intensity statin therapy Hypomagnesemia (03/04/17) Intraabdominal calcification (11/14/15) Incidental finding on CT 2 mm between bladder and uterus, no further eval required, AOC Iron deficiency anemia (01/02/17) S/p colo & EGD 05/2015, then capsule endoscopy & push enteroscopy with no definitive etiology identified; 11/14/2017: repeat colonoscopy (due to return of anemia) showing a colonic angioectasia, which may have been source of bleeding & anemia (no overt bleeding found). Fe supplementation & monitor Left renal artery stenosis (08/30/16) 08/21/16 [facility] [place] consult: moderate-severe stenosis; given well-controlled HTN & normal kidney function, renal artery intervention not indicated at this t 10/2016: 3 mo f/u renal duplex US showing >60% stenosis with decent blood flow to L kidney Consider stent placement if BP becomes poorly controlled or renal function begins to deteriorate Leg cramps (04/01/14) Low Mg+ --> supplementation helped, but caused diarrhea; handout on dietary Mg+ given Microalbuminuria due to type 2 diabetes mellitus Non-ST elevation (NSTEMI) myocardial infarction (~12/2020) S/p proximal LCX stent placement Obstructive sleep apnea (03/02/14) Bipap w/ 2L 02 09/06/2019 Osteopenia (02/14/16) DEXA 02/14/16: Fem neck t-score -1.2 --> WHO FRAX major osteoporotic 13% & hip fx 1.3% risk --> does not qualify for bisphosphonates --> Ca & vit D 03/2017 L3 compression fx --> re-calc WHO FRAX major osteoporotic 21% & hip fx 2.3% risk --> now qualifies for bisphosphonate tx, started 03/2017 Probable allergic rxn to Alendronate (1st pill Sat, and stayed thru today (but no worsening), 07/05. Agree to STOP for now. 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 Dr Agee H/O laminectomy (~10/06/12) L5S1 Huyen Frazier, Dr. Garay History of hysterectomy, supracervical Oophrectomy, Right (~2007) For unknown reason Status post coronary artery stent placement (~01/27/21) Tooth Extractions Multiple Family History Sister Breast cancer Mother , 89 Alzheimer's dementia Breast cancer Father , AGE 75 Alcohol abuse Cirrhosis Sister Neoplasm uterine CA Sister Heart disease Brother Heart disease Niece Breast cancer Social History Smoking/Tobacco Use Status: Former Tobacco Use tobacco type: cigarettes Quit Date: 09/02/95 Tobacco: How many years used: 25 Smoking risk assessment performed?: Yes Alcohol Intake: former Details: none Drug use: Never Substance use type: does not use Adopted: No Caregiver/Support person: No Foster care: No Household members: spouse Number of Children: 4 Communication Needs: None Pets and animals: No Current gender identity: female What type of physical activity do you participate in: regular exercise Duration: < 15 minutes/day Frequency: 3-4 times per week Mell/Scientology: Evangelical Seatbelt use: always Drive intox or ride w/intox van driver helper: No Working smoke detector in home: Yes Fire extinguisher in home: Yes Carbon monox detector in home: Yes Do you feel safe at home: Yes Do you feel safe in your relationship?: Yes Additional Social history: Lives with in [place]. 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 She has 11 grandkids who all live close. Exam Const General: cooperative and no acute distress Eyes Sclera: sclerae normal Neck Other: No midline tenderness Chest Chest: normal inspection of the chest Resp Effort & Inspection: normal respiratory effort Cardio Rate: regular rate Rhythm: regular rhythm Other: Distal pulses intact GI Other: No abdominal bruit or pulsatile mass, no anterior abdominal tenderness, no CVA tenderness Back/Spine/Pelvis Other: Paraspinal muscle tenderness to lumbar spine Skin General skin exam: no rashes or lesions noted Neuro General: patient alert and patient oriented x3 Extrem General: normal to inspection and capillary refill normal Course Vital Signs Vital signs: Vital Signs Temperature 36.7 C 05/05/21 08:42 Pulse 88 05/05/21 08:42 Respiratory Rate 16 05/05/21 08:42 Blood Pressure 144/50 H 05/05/21 08:42 Pulse Oximetry 96 05/05/21 08:42 Temperature 36.7 C 05/05/21 08:42 Temperature Source Skin 05/05/21 08:42 Pulse 88 05/05/21 08:42 Respiratory Rate 16 05/05/21 08:42 Respiratory Effort Non-Labored 05/05/21 08:42 Blood Pressure 144/50 H 05/05/21 08:42 Blood Pressure Position Sitting 05/05/21 08:42 Pulse Oximetry 96 05/05/21 08:42 Oxygen Delivery Method Nasal Cannula 05/05/21 08:42 Oxygen Flow Rate 2 05/05/21 08:42 Pain Level 8 05/05/21 08:42
[2021-05-05] MEDS: Orphenadrine 60 MG/2 ML VIAL 30 MG IVP (09:44)
[2021-05-05 09:50] LABS: Abs Immature Grans 0.05 10^3/uL (0.0-0.06); Absolute Basophil Count 0.01 10^3/uL (0.0-0.2); Absolute Lymphocyte Count 0.63 10^3/uL (1.2-3.4); Absolute Monocyte Count 0.31 10^3/uL (0.1-0.8); Basophils % 0.3; Eosinophils % 6.1; HCT 34.3 % (36.0-46.0); HGB 10.8 g/dL (11.2-15.7); Immature Grans % 1.5; Lymphocytes % 19.1; MCHC 31.5 % (32.0-36.0); MCV 98.6 fL (80-95); MPV 8.7 fL (8.0-11.0); Monocytes % 9.4; Neutrophils % 63.6; Nucleated RBC 0 %; Platelet Count 220 10^3/uL (130-400); RBC 3.48 10^6/uL (3.93-5.22); RDW 14.7 % (11.7-14.6); RDW-SD 52.9 fL
[2021-05-05 10:21] LABS: Bilirubin Negative (Negative); Blood Negative (Negative); Clarity Clear (Clear); Glucose >=1000 mg/dL (Negative); Ketones Negative (Negative); Leukocyte Esterase Negative (Negative); Nitrite Negative (Negative); Urobilinogen 0.2 EU/dL (Up TO 0.2); pH 5.5 (5-8)
[2021-05-05 10:33] VITALS: BP 109/57; PULSE 72; RESP 16; TEMP 36; O2SAT 100
[2021-05-05 11:12] LABS: ALT 40 U/L (14-59); AST 20 U/L (15-37); Albumin 3.8 g/dL (3.4-5.0); Alkaline Phosphatase 47 U/L (46-116); Anion Gap 5.3 mmol/L (3-11); BUN 23 mg/dL (7-18); Bilirubin, Total 0.2 mg/dL (0.2-1.0); CO2 33.7 mmol/L (21.0-32.0); CREATININE 1.3 mg/dL (0.55-1.02); Calcium 9.7 mg/dL (8.5-10.1); Chloride 101 mmol/L (98-107); Estimated GFR 40.38 (mL/min/1.73m2); Glucose 128 mg/dL (74-106); Potassium 4.6 mmol/L (3.5-5.1); Sodium 140 mmol/L (136-145); Total Protein 7.6 g/dL (6.4-8.2)
[2021-05-05] MEDS: Omnipaque 350 MG/ML 100 ML BTL IJ (11:27)
[2021-05-05 11:33] VITALS: BP 114/36; PULSE 69; RESP 16; TEMP 36.5; O2SAT 99
[2021-05-05 12:31] VITALS: BP 113/49; PULSE 70; RESP 14; TEMP 36.5; O2SAT 97
[2021-05-05 12:44] VITALS: BP 99/67; PULSE 66; RESP 16; TEMP 36.2; O2SAT 100
--- NOTE | 2021-05-05 15:14 | CMPROGNOTE_ITS ---
- If Service Date Differs Date of service: 05/05/21 Time of Service: 15:14 Care Management Progress Note Nahed is seen in the ED for flank pain. At the request of ED provider, CM coordinates a referral to [facility] [place] to assist Nahed in obtaining a follow up appointment.
--- NOTE | 2021-05-05 17:41 | NUR.NOTE ---
Nursing Note: Referral given to Care management for vascular follow up with [facility] [place] - libfide 05/05/21
== END 2021-05-05 12:50 | disposition home or self-care (01) ==
PROVIDERS: Emergency Provider Physician Assistant; PCP Nurse Practitioner Family
DX: M54.5 Low back pain (principal); R10.9 Unspecified abdominal pain
CPT/HCPCS: 36415; 80053; 96374; 96375; 99284; J2360; 74177; 81003; 85025; J0131; J3490

== ENCOUNTER 2021-05-08 20:44 | Outpatient (CLI) | payer MEDICARE, BC, SELFPAY | END 2021-05-08 20:45 | disposition home or self-care (01) | LOC: RT 05-13 20:45 | PROVIDERS: PCP Nurse Practitioner Family; Visit Provider Student in an Organized Health Care Education/Training Program | DX: J96.11 Chronic respiratory failure with hypoxia (principal); J44.9 Chronic obstructive pulmonary disease, unspecified | CPT/HCPCS: 94618 ==

== ENCOUNTER 2021-05-17 01:31 | Outpatient (CLI) | payer MEDICARE, BC, SELFPAY ==
--- NOTE | 2021-05-17 08:00 | DI.US_ITS ---
Exam(s) US PELVIS TRANSVAGINAL EXAM: US PELVIS TRANSVAGINAL CLINICAL HISTORY: Check ovary, pelvic pain. Cervix in situ, postmenopausal bleeding. TECHNIQUE: Transabdominal and transvaginal pelvic ultrasound was performed using standard protocol. COMPARISON: No exams were available for comparison FINDINGS: KIDNEYS: Kidneys are symmetric in size. No evidence of renal calculi. No evidence of hydronephrosis. No renal mass or cyst identified. UTERUS: Status post hysterectomy. OVARIES: Status post right nephrectomy. Left: The left ovary was not visualized transabdominally or transvaginally. No left adnexal masses i dentified. CUL-DE-SAC: Free fluid: None. Other: None. IMPRESSION: 1. Normal sonographic appearance of the kidneys. 2. Status post hysterectomy and right oophorectomy. 3. The left ovary was not visualized on this examination. No left adnexal mass is seen sonographical ly. DATA REPOSITORY:
== END 2021-05-17 01:51 ==
PROVIDERS: PCP Nurse Practitioner Family; Visit Provider Obstetrics & Gynecology
DX: N95.0 Postmenopausal bleeding (principal); R10.2 Pelvic and perineal pain; Z90.710 Acquired absence of both cervix and uterus
CPT/HCPCS: 76830; 76856

== ENCOUNTER 2021-05-18 13:53 | Emergency (ER) | payer MEDICARE, BC, SELFPAY ==
[2021-05-18] VITALS (11 sets, daily range): BP systolic 106–107; BP diastolic 33–48; PULSE 67–81; RESP 16–25; TEMP 36.4; O2SAT 96–100
--- NOTE | 2021-05-18 13:45 | RT.EKG_ITS ---
APPROVED REPORT Exam: Resting ECG Reason for Exam: [id number] Patient Location: E HR:75 bpm ECG Measurements Heart Rate 75 AXIS NH 169 P 78 QRSd 84 QRS 41 QT 373 T 32 QTc 417 Conclusion Sinus rhythm...normal P axis, V-rate 60- 99 Probable left atrial enlargement...P >50mS, <-0.10mV V1 Borderline ST elevation, anterolateral leads...ST >0.06mV, I aVL V2-V6
--- NOTE | 2021-05-18 14:14 | W.ED.GENAD ---
Discharge Plan Disposition Patient Disposition: HOME Condition: Stable Discharge Details Clinical Impression: Shortness of breath, Abdominal pain, Enteritis, Episodic lightheadedness Primary Care Provider: María Mendoza ED Provider: Greyson Shah Home Meds and New Rx's Prescriptions: Continued pantoprazole 20 mg tablet,delayed release (DR/EC) 20 mg PO DAILY Qty: 90 RF: 3 hydrochlorothiazide 25 mg tablet 25 mg PO DAILY AM Qty: 90 RF: 3 albuterol sulfate [ProAir HFA] 90 mcg/actuation HFA aerosol inhaler 1 - 2 puff Inhalation Q4H PRN Qty: 8.5 RF: 1 Glucagon Emergency Kit (human) 1 mg recon soln 1 mg subcut ONCE Qty: 1 RF: 0 triamcinolone acetonide 0.1 % cream 1 applic topical BID Qty: 15 RF: 1 Trelegy Ellipta 100-62.5-25 mcg blister with device 1 inh inhalation DAILY Qty: 60 RF: 8 loperamide [Anti-Diarrheal (loperamide)] 2 mg tablet 2 mg PO Q6H PRNRF: 0 Oxygen EACH NS At Night Qty: 2 RF: 0 multivitamin [Daily Multi-Vitamin] 1 EACH tablet 1 ea PO DAILY RF: 0 (DME) lancets [Sure Comfort Lancets] 1 EACH misc 1 ea Miscellaneous DAILY Qty: 1 RF: 3 acetaminophen 500 MG tablet 1,000 mg PO TID PRNQty: 90 RF: 0 cyanocobalamin (vitamin B-12) 1,000 mcg tablet 1,000 mcg PO DAILY Qty: 90 RF: 3 calcium carbonate-vitamin D3 600 mg(1,500mg) -800 unit tablet 2 tab PO DAILY Qty: 180 RF: 3 (DME) Blood Glucose Test Strip See Rx Instructions .ROUTE .MEDSUPPLY Qty: 400 RF: 0 metformin 500 mg tablet 500 mg PO BID MDD 1000 mg Qty: 180 RF: 3 montelukast [Singulair] 10 mg tablet 10 mg PO DAILY Qty: 90 RF: 3 (DME) pen needle, diabetic [Lite Touch Insulin Pen [place]] 31 gauge x 3/16 needle See Rx Instructions .ROUTE .MEDSUPPLY Qty: 400 RF: 3 magnesium oxide 400 mg (241.3 mg magnesium) tablet See Rx Instructions PO .COMPLEX Qty: 270 RF: 3 Jardiance 25 mg tablet 25 mg PO DAILY AM Qty: 90 RF: 3 nitroglycerin 0.4 mg tablet, sublingual 0.4 mg sublingual Q5M PRNRF: 0 rosuvastatin [Crestor] 20 mg tablet 40 mg PO DAILY RF: 0 colchicine 0.6 mg tablet 0.6 mg PO DAILY RF: 0 cetirizine 10 mg tablet 10 mg PO DAILY Qty: 90 RF: 3 metoprolol succinate 50 mg tablet extended release 24 hr 50 mg PO DAILY Qty: 90 RF: 0 valsartan 80 mg tablet 80 mg PO DAILY Qty: 90 RF: 0 budesonide-formoterol [Symbicort] 160-4.5 mcg/actuation HFA aerosol inhaler 2 puff Inhalation BID Qty: 3 RF: 3 Incruse Ellipta 62.5 mcg/actuation blister with device 62.5 mcg Inhalation DAILY Qty: 3 RF: 3 clopidogrel 75 mg tablet 75 mg PO DAILY Qty: 90 RF: 3 rosuvastatin 40 mg tablet 40 mg PO DAILY Qty: 90 RF: 3 albuterol sulfate 2.5 mg /3 mL (0.083 %) solution for nebulization 2.5 mg IH Q4H PRN (Reason: bronchospasm) Qty: 180 RF: 6 Lantus Solostar U-100 Insulin 100 unit/mL (3 mL) insulin pen See Rx Instructions subcut BID Qty: 13 RF: 3 insulin lispro [Humalog KwikPen Insulin] 100 unit/mL insulin pen 4 - 6 unit subcut TID PRN (Reason: high blood sugar) Qty: 6 RF: 3 (DME) FreeStyle Basia 2 [place] Misc See Rx Instructions .ROUTE .MEDSUPPLY Qty: 1 RF: 0 (DME) FreeStyle Basia 2 Sensor Kit See Rx Instructions .ROUTE .MEDSUPPLY Qty: 6 RF: 3 roflumilast 500 mcg tablet 500 mcg PO DAILY 30 Days Qty: 30 RF: 8 aspirin [Aspir-81] 81 MG tablet,delayed release (DR/EC) 81 mg PO DAILY Qty: 90 RF: 3 ferrous sulfate 325 mg (65 mg iron) tablet 650 mg PO TID RF: 0 Discharge Instructions Additional Instructions: Your blood work showed mild anemia otherwise no significant changes from baseline your cat scan showed mild inflammation of your colon otherwise no concerning findings follow up with your primary care provider within 1 week if you feel more ill, have worsening symptoms or severe worsening pain return to the emergency department Medical Decision Making 70 year old female with hx of O2-dependent COPD (normally on 2L of O2), CAD, IDDM2, hypertension, recent diagnosis of breast cancer per patient and hasn't started therapy, who comes in with several days of multiple complaints including feeling lightheaded as though she may pass out, as well as general weakness and nausea. She denies any falls or loc. SHe denies any chest pain or pressure but has noted intermittent dyspnea. She denies fevers or chills. She is in no distress on exam speaking in full sentences. She has no leg swelling or calf tenderness. She has no focal motor or sensation deficits, clear speech, CN II-XII. She has clear lungs, and is tender to palpation to the right upper and epigastric area. Given her lightheadedness and dyspnea along with recent diagnosis of breast cancer will obtain cta to evaluate for PE and given her nausea and tenderness on exam will also obtain ct to evaluate for possible choelcystitis and pancreatitis. labs unremarkable, hemoglobin 9.8 and has iron deficiency anemia, has no black stools per report and guiac negative. She feels better and requests discharge which I feel is reasonable, imaging only shows possible enteritis no other acute findings. Discussed results with pt and she will f/u with pcp, return precautions given Differential Diagnosis Differential Diagnosis: anemia, pe, electrolyte abnormality Medical Records Medical records reviewed: Yes I reviewed the patient's medical records. Imaging Data Radiologic Study: Attestation: I personally reviewed and interpreted this imaging study as follows: Imaging: CT Scan Radiologist's impression: IMPRESSION: 1. No evidence of a pulmonary embolus, thoracic aortic dissection or aneurysm. 2. No acute pulmonary process. 3. Mild wall thickening of several small bowel loops in the left abdomen suspicious for an infectious/inflammatory enteritis. 4. Results of this exam have been verbally communicated with provider. Lab Data Lab results reviewed: Yes I reviewed the patient's lab results. ECG Data Attestation: I personally reviewed and interpreted this ECG (s) as follows: Prior ECG tracings: available for review HPI General Mode of arrival: ambulatory. Date/Time Provider Initiated Documentation: 05/18/21 13:57. Limitations to Documentation: no limitations. Information obtained by: patient. History of Present Illness 70 year old F presents to the emergency department with the chief complaint of lightheaded, nausea, described as moderate, Patient reports no radiation. Patient started experiencing this day(s) (3) and it has been constant. No relieving factors improve symptom(s), No exacerbating factors reported . Patient notes denies chest pain. Patient did receive the following treatments prior to arrival, none Related Data Home Medications Medication Instructions Recorded Confirmed aspirin [Aspir-81] 81 mg PO DAILY #90 03/30/13 05/18/21 multivitamin [Daily Multi-Vitamin] 1 ea PO DAILY 03/19/17 05/18/21 lancets [Sure Comfort Lancets] #1 box 06/24/17 05/05/21 acetaminophen 1,000 mg PO TID PRN #90 tab-cap 12/16/17 05/18/21 cyanocobalamin (vitamin B-12) 1,000 mcg PO DAILY #90 tab-cap 05/07/18 05/18/21 1,000 mcg tablet ferrous sulfate 650 mg PO TID 05/14/20 05/18/21 calcium carbonate-vitamin D3 600 2 tab PO DAILY #180 tab-cap 08/10/20 05/18/21 mg (1,500 mg)-800 unit tablet blood sugar diagnostic #400 ea 08/29/20 05/05/21 metformin 500 mg tablet 500 mg PO BID #180 tab MDD 1000 mg 09/23/20 05/18/21 montelukast 10 mg tablet 10 mg PO DAILY #90 tab-cap 09/23/20 05/18/21 pen needle, diabetic 31 gauge x #400 ea 10/12/20 05/05/2111/15 glucagon (human recombinant) 1 mg 1 mg SUBCUT ONCE #1 ea 11/11/20 05/18/21 solution for injection magnesium oxide 400 mg (241.3 mg See Rx Instructions PO .COMPLEX 11/16/20 05/18/21 magnesium) tablet #270 tab-cap empagliflozin 25 mg tablet 25 mg PO DAILY AM #90 tab-cap 01/02/21 05/18/21 nitroglycerin 0.4 mg sublingual 0.4 mg SUBLINGUAL Q5M PRN 02/01/21 05/18/21 tablet rosuvastatin 20 mg tablet 40 mg PO DAILY tab 02/01/21 05/05/21 colchicine 0.6 mg tablet 0.6 mg PO DAILY 02/09/21 05/18/21 hydrochlorothiazide 25 mg tablet 25 mg PO DAILY AM #90 tab-cap 02/16/21 05/18/21 pantoprazole 20 mg tablet,delayed 20 mg PO DAILY #90 tab-cap 02/16/21 05/18/21 release cetirizine 10 mg tablet 10 mg PO DAILY #90 tab 03/01/21 05/18/21 metoprolol succinate 50 mg 50 mg PO DAILY #90 tab 03/01/21 05/18/21 tablet,extended release 24 hr valsartan 80 mg tablet 80 mg PO DAILY #90 tab 03/01/21 05/18/21 budesonide-formoterol HFA 160 2 puff INHALATION BID #3 inhaler 03/07/21 05/18/21 mcg-4.5 mcg/actuation aerosol inhaler umeclidinium 62.5 mcg/actuation 62.5 mcg INHALATION DAILY #3 disk 03/14/21 05/18/21 blister powder for inhalation triamcinolone acetonide 0.1 % 1 applic TOPICAL BID #15 g 03/27/21 05/18/21 topical cream loperamide 2 mg tablet 2 mg PO Q6H PRN 04/06/21 05/18/21 albuterol sulfate 90 mcg/actuation 1 - 2 puff INHALATION Q4H PRN #8.5 04/10/21 05/18/21 aerosol inhaler g fluticasone fur. 100 mcg-umeclid 1 inh INHALATION DAILY #60 ea 04/12/21 05/18/21 62.5 mcg-vilant 25 mcg inhalat.powder clopidogrel 75 mg tablet 75 mg PO DAILY #90 tab 04/26/21 05/18/21 rosuvastatin 40 mg tablet 40 mg PO DAILY #90 tab 04/26/21 05/18/21 albuterol sulfate 2.5 mg IH Q4H PRN #180 ml 05/03/21 05/05/21 insulin glargine 100 unit/mL (3 See Rx Instructions SUBCUT BID #13 05/03/21 05/18/21 mL) subcutaneous pen syrg flash glucose scanning reader #1 ea 05/04/21 05/05/21 flash glucose sensor #6 ea 05/04/21 05/05/21 insulin lispro 100 unit/mL 4 - 6 unit SUBCUT TID PRN #6 syrg 05/04/21 05/18/21 subcutaneous pen roflumilast 500 mcg tablet 500 mcg PO DAILY 30 Days #30 tab 05/11/21 05/18/21 Previous Rx's Medication Instructions Recorded lancets [Sure Comfort Lancets] #1 box 06/24/17 cyanocobalamin (vitamin B-12) 1,000 mcg PO DAILY #90 tab-cap 05/07/18 1,000 mcg tablet calcium carbonate-vitamin D3 600 2 tab PO DAILY #180 tab-cap 08/10/20 mg (1,500 mg)-800 unit tablet blood sugar diagnostic #400 ea 08/29/20 metformin 500 mg tablet 500 mg PO BID #180 tab MDD 1000 mg 09/23/20 montelukast 10 mg tablet 10 mg PO DAILY #90 tab-cap 09/23/20 pen needle, diabetic 31 gauge x #400 ea 10/12/2011/15 glucagon (human recombinant) 1 mg 1 mg SUBCUT ONCE #1 ea 11/11/20 solution for injection magnesium oxide 400 mg (241.3 mg See Rx Instructions PO .COMPLEX 11/16/20 magnesium) tablet #270 tab-cap empagliflozin 25 mg tablet 25 mg PO DAILY AM #90 tab-cap 01/02/21 hydrochlorothiazide 25 mg tablet 25 mg PO DAILY AM #90 tab-cap 02/16/21 pantoprazole 20 mg tablet,delayed 20 mg PO DAILY #90 tab-cap 02/16/21 release cetirizine 10 mg tablet 10 mg PO DAILY #90 tab 03/01/21 metoprolol succinate 50 mg 50 mg PO DAILY #90 tab 03/01/21 tablet,extended release 24 hr valsartan 80 mg tablet 80 mg PO DAILY #90 tab 03/01/21 budesonide-formoterol HFA 160 2 puff INHALATION BID #3 inhaler 03/07/21 mcg-4.5 mcg/actuation aerosol inhaler umeclidinium 62.5 mcg/actuation 62.5 mcg INHALATION DAILY #3 disk 03/14/21 blister powder for inhalation triamcinolone acetonide 0.1 % 1 applic TOPICAL BID #15 g 03/27/21 topical cream albuterol sulfate 90 mcg/actuation 1 - 2 puff INHALATION Q4H PRN #8.5 04/10/21 aerosol inhaler g fluticasone fur. 100 mcg-umeclid 1 inh INHALATION DAILY #60 ea 04/12/21 62.5 mcg-vilant 25 mcg inhalat.powder clopidogrel 75 mg tablet 75 mg PO DAILY #90 tab 04/26/21 rosuvastatin 40 mg tablet 40 mg PO DAILY #90 tab 04/26/21 albuterol sulfate 2.5 mg IH Q4H PRN #180 ml 05/03/21 insulin glargine 100 unit/mL (3 See Rx Instructions SUBCUT BID #13 05/03/21 mL) subcutaneous pen syrg flash glucose scanning reader #1 ea 05/04/21 flash glucose sensor #6 ea 05/04/21 insulin lispro 100 unit/mL 4 - 6 unit SUBCUT TID PRN #6 syrg 05/04/21 subcutaneous pen roflumilast 500 mcg tablet 500 mcg PO DAILY 30 Days #30 tab 05/11/21 Allergies Allergy/AdvReac Type Severity Reaction Status Date / Time propylene glycol Allergy Severe Rash Verified 05/18/21 14:05 petrolatum,white Allergy Intermediate rash Verified 05/18/21 14:05 [From Petroleum Jelly] adhesive tape Allergy Unknown Skin Rash Verified 05/18/21 14:05 alendronate sodium Allergy Unknown Hives Verified 05/18/21 14:05 azithromycin AdvReac Intermediate dry heaves Verified 05/18/21 14:05 and diarrhea hydrocodone bitartrate AdvReac Intermediate Nausea Verified 05/18/21 14:05 [From Vicodin] liraglutide [From Victoza] AdvReac Intermediate diarhhea Verified 05/18/21 14:05 paraben AdvReac Intermediate Skin Rash Verified 05/18/21 14:05 quaternium 15 AdvReac Intermediate generalized Verified 05/18/21 14:05 rash LANDON Inhibitors AdvReac Unknown COUGH,DYSPN Verified 05/18/21 14:05 EA oxycodone HCl [From Percocet] AdvReac Unknown NAUSEA/VOMI Verified 05/18/21 14:05 TING fragranced creams Allergy Intermediate Skin Rash Uncoded 05/18/21 14:05 parabin wax Allergy Intermediate Skin Rash Uncoded 09/16/21 14:05 diogolidinyl AdvReac Severe Skin Rash Uncoded 05/18/21 14:05 bisphenal AdvReac Intermediate Skin Rash Uncoded 05/18/21 14:05 General Stated Complaint: Dizzy/Sync BRUNA: 3 Review of Systems All systems reviewed & are unremarkable except as noted in HPI and below Constitutional Constitutional: Denies chills and Denies fever(s) Cardiovascular Cardiovascular: Denies chest pain Respiratory Respiratory: Denies cough Gastrointestinal Gastrointestinal: Denies abdominal pain and Denies vomiting Genitourinary Genitourinary: Denies dysuria Integumentary/Breasts Skin/Breast: Denies rash [facility] Medical History (Updated 05/18/21 @ 16:31 by Greyson Shah MD) Allergic rhinitis Anemia (02/11/14) Suspect chronic dz/bone marrow suppression s/p breast CA tx (radiation); s/p GI workup (possible AVMs?), NL B12/folate, elevated Epo, NL retic count; chronic iron supplementation ASCVD (arteriosclerotic cardiovascular disease) Atherosclerosis of both carotid arteries (11/12/16) 10/2016 [facility] [place] Vascular Consult: carotid US showing 16-49% stenosis both internal carotids Recommend annual carotid US Breast CA R 2002, L2003 s/p bilateral lumpectomy. S/P XRT and Tamoxifen. Chronic GI bleeding CKD (chronic kidney disease) Compression fracture of lumbar vertebra (03/14/17) COPD, very severe [facility] [place] Pulmonology (Dr. Cruz) Depression (11/30/02) s/p of brother (on SSRI for short time) Diabetes mellitus (11/27/04) Dx'ed early Goal A1C <7.5% DJD (degenerative joint disease) (02/04/14) Lumbar spine--multiple level on MRI Surgery 10/2011, [facility] Dr. Smith Essential hypertension (05/16/04) Headache Heart murmur 07/11/2016 echo: mild-moderate mitral regurgitation Hiatal hernia (02/11/14) Smaller portions Endoscopy 2011 2/2 anemia (nothing found), [facility] [place] Hyperlipidemia (03/18/07) Pt on high intensity statin therapy Hypomagnesemia (03/04/17) Intraabdominal calcification (11/14/15) Incidental finding on CT 2 mm between bladder and uterus, no further eval required, [facility] Iron deficiency anemia (01/02/17) S/p colo & EGD 05/2015, then capsule endoscopy & push enteroscopy with no definitive etiology identified; 11/14/2017: repeat colonoscopy (due to return of anemia) showing a colonic angioectasia, which may have been source of bleeding & anemia (no overt bleeding found). Fe supplementation & monitor Left renal artery stenosis (08/30/16) 08/21/16 [facility] [place] Vascular Surgery consult: moderate-severe stenosis; given well-controlled HTN & normal kidney function, renal artery intervention not indicated at this t 10/2016: 3 mo f/u renal duplex US showing >60% stenosis with decent blood flow to L kidney Consider stent placement if BP becomes poorly controlled or renal function begins to deteriorate Leg cramps (04/01/14) Low Mg+ --> supplementation helped, but caused diarrhea; handout on dietary Mg+ given Microalbuminuria due to type 2 diabetes mellitus Non-ST elevation (NSTEMI) myocardial infarction (~12/2020) S/p proximal LCX stent placement Obstructive sleep apnea (03/02/14) Bipap w/ 2L 02 09/06/2019 Osteopenia (02/14/16) DEXA 02/14/16: Fem neck t-score -1.2 --> WHO FRAX major osteoporotic 13% & hip fx 1.3% risk --> does not qualify for bisphosphonates --> Ca & vit D 03/2017 L3 compression fx --> re-calc WHO FRAX major osteoporotic 21% & hip fx 2.3% risk --> now qualifies for bisphosphonate tx, started 03/2017 Probable allergic rxn to Alendronate (1st pill Sat, Hiv and stayed thru today (but no worsening), 07/05. Agree to STOP for now. 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 Dr Agee H/O laminectomy L5S1 H/O laminectomy (~10/06/12) L5S1 Dr. Jarrod Ballard History of hysterectomy, supracervical Oophrectomy, Right (~2007) For unknown reason S/P breast biopsy, left (05/09/21) u/s guided Core Bx Status post coronary artery stent placement (~01/27/21) Tooth Extractions Multiple Family History Sister Breast cancer Mother , 89 Alzheimer's dementia Breast cancer Father , AGE 75 Alcohol abuse Cirrhosis Sister Neoplasm uterine CA Sister Heart disease Brother Heart disease Niece Breast cancer Social History Smoking/Tobacco Use Status: Former Tobacco Use tobacco type: cigarettes Quit Date: 09/02/95 Tobacco: How many years used: 25 Smoking risk assessment performed?: Yes Alcohol Intake: former Details: none Drug use: Never Substance use type: does not use Adopted: No Caregiver/Support person: No Foster care: No Household members: spouse Number of Children: 4 Communication Needs: None Pets and animals: No Current gender identity: female What type of physical activity do you participate in: regular exercise Duration: < 15 minutes/day Frequency: 3-4 times per week Mell/Scientologist: Jehovah'S Witness Seatbelt use: always 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 She has 11 grandkids who all live close. Exam Const General: no acute distress Orientation: alert HENMT Head: normal to inspection Ears: external ears normal General nose exam: external nose normal Mouth: moist mucous membranes Eyes General: appearance normal, both eyes and all related structures Neck Neck: normal visual inspection Resp Effort & Inspection: normal respiratory effort and able to speak in complete sentences Cardio Rate: regular rate GI Palpation: soft Skin General skin exam: no rashes or lesions noted Neuro General: patient alert and patient oriented x3 Extrem General: normal to inspection Psych Mental Status: mental status grossly normal Course Vital Signs Vital signs: Vital Signs Temperature 36.4 C L 05/18/21 14:00 Pulse 81 05/18/21 14:00 Respiratory Rate 16 05/18/21 14:00 Pulse Oximetry 99 05/18/21 14:00 Temperature 36.4 C L 05/18/21 14:00 Temperature Source Temporal Artery Scan 05/18/21 14:00 Pulse 81 05/18/21 14:00 Respiratory Rate 16 05/18/21 14:00 Blood Pressure Position Sitting 05/18/21 14:00 Pulse Oximetry 99 05/18/21 14:00 Oxygen Delivery Method Room Air 05/18/21 14:00 Oxygen Flow Rate 0 05/18/21 14:00
--- NOTE | 2021-05-18 14:15 | DI.CT_ITS ---
Exam(s) CT CHEST PE ABD PELVIS W EXAM: CT CHEST PE ABD PELVIS W CLINICAL HISTORY: dyspnea, pain, recent diagnosis breast cancer. TECHNIQUE: Imaging Protocol: Axial CT angiography was performed with multi-slice acquisition and mu lti-planar and/or 3D reconstructions. CONTRAST MATERIAL: Intravenous: Omnipaque 350 Contrast volume:80 mL COMPARISON: CT CT ABDOMEN PELVIS W from 05/05/[address] LUMBAR SPINE RECONS from 05/05/2021 FINDINGS: CHEST: Pulmonary Arteries: No evidence of filling defect to suggest pulmonary emboli. Tracheobronchial tree: Patent where visualized. Mediastinum and Anjana: No dominant adenopathy or fluid collection. Pulmonary parenchyma: No consolidation or dominant measurable mass. Moderate centrilobular pulmonary emphysema. Pleura: No effusion or pneumothorax. Heart: The heart is not dilated. Coronary artery calcifications. No pericardial effusion. Aorta: Thoracic aorta non-dilated. Atherosclerosis. No evidence of dissection. Bones: Degenerative changes in the thoracic spine. ABDOMEN: Liver: Normal density. No measurable mass. Portal, Superior Mesenteric, and Splenic Veins: Unremarkable. Gallbladder and Biliary Tract: No radiodense calculus or dilation. Pancreas: Normal density, no abnormal calcifications or inflammatory process. Spleen: Normal. Adrenals: No masses seen. Kidneys: Normal size, contour and axis. No radiodense stones or obstructive uropathy. No masses seen. Abdominal Aorta: Abdominal portion non-dilated. Atherosclerosis. Bowel: No obstruction. Mild thickening of the wall of several loops of bowel small bowel in the left abdomen suspicious for an inflammatory infectious enteritis. No appendicitis. Peritoneal Cavity: No ascites, collection or mesenteric inflammatory response. No free air. Lymph Nodes: Within normal limits. Bones: There is a stable old L3 compression deformity. Soft Tissues: Unremarkable. PELVIS: Bladder: Symmetric distention, no gross wall thickening. Reproductive Organs: Unremarkable as visualized. Lymph Nodes: Within normal limits. Bones: Within normal limits. IMPRESSION: 1. No evidence of a pulmonary embolus, thoracic aortic dissection or aneurysm. 2. No acute pulmonary process. 3. Mild wall thickening of several small bowel loops in the left abdomen suspicious for an infectious /inflammatory enteritis. 4. Results of this exam have been verbally communicated with provider. RADIATION DOSE DELIVERED: 1,180.01mGy.cm Total DLP DATA REPOSITORY: All CT scans at this facility are submitted to the National Radiology Data Registry (NRDR) Dose Index Registry (DIR) with the [employer] (A[employer]). RADIATION OPTIMIZATION: All CT scans at this facility use at least one of these dose optimization te chniques: automated exposure control; mA and/or kV adjustment per patient size (includes targeted exa ms where dose is matched to clinical indication); or iterative reconstruction.
[2021-05-18 14:30] LABS: Abs Immature Grans 0.04 10^3/uL (0.0-0.06); Absolute Basophil Count 0.02 10^3/uL (0.0-0.2); Absolute Eosinophil Count 0.14 10^3/uL (0.0-0.7); Absolute Lymphocyte Count 1.07 10^3/uL (1.2-3.4); Absolute Monocyte Count 0.34 10^3/uL (0.1-0.8); Absolute Neutrophil Count 1.86 10^3/uL (1.2-6.7); Basophils % 0.6; HCT 31.9 % (36.0-46.0); HGB 9.8 g/dL (11.2-15.7); Immature Grans % 1.2; Lymphocytes % 30.8; MCH 30.1 pg (27.0-33.0); MCHC 30.7 % (32.0-36.0); MCV 97.9 fL (80-95); MPV 8.7 fL (8.0-11.0); Monocytes % 9.8; Neutrophils % 53.6; Nucleated RBC 0 %; Platelet Count 253 10^3/uL (130-400); RBC 3.26 10^6/uL (3.93-5.22); RDW 13.5 % (11.7-14.6); RDW-SD 48.1 fL; WBC 3.47 10^3/uL (4.4-10.8)
[2021-05-18 14:35] LABS: Magnesium 2.3 mg/dL (1.8-2.4)
[2021-05-18 14:37] LABS: Lipase 187 U/L (73-393)
[2021-05-18 14:41] LABS: Source Nasal/Nares
[2021-05-18 14:49] LABS: ALT 34 U/L (14-59); AST 33 U/L (15-37); Albumin 3.5 g/dL (3.4-5.0); Alkaline Phosphatase 45 U/L (46-116); BUN 29 mg/dL (7-18); Bilirubin, Total 0.3 mg/dL (0.2-1.0); CREATININE 1.4 mg/dL (0.55-1.02); Chloride 102 mmol/L (98-107); Estimated GFR 37.07 (mL/min/1.73m2); Glucose 90 mg/dL (74-106); NT-proBNP 424 pg/mL (<300); Potassium 4.7 mmol/L (3.5-5.1); Sodium 141 mmol/L (136-145)
[2021-05-18 14:50] LABS: Troponin I < 0.05 ng/mL (<0.06)
[2021-05-18 14:54] LABS: PTT Activated 22.1 sec (21.0-27.5); Prothrombin Time 10.4 sec (9.3-11.0)
[2021-05-18] MEDS: Omnipaque 350 MG/ML 100 ML BTL IJ (15:28)
[2021-05-18 15:42] LABS: COVID-19 PCR Negative (Negative)
== END 2021-05-18 17:05 | disposition home or self-care (01) ==
PROVIDERS: Emergency Provider Emergency Medicine; PCP Nurse Practitioner Family
DX: R06.02 Shortness of breath (principal); R42 Dizziness and giddiness; R10.9 Unspecified abdominal pain; K52.9 Noninfective gastroenteritis and colitis, unspecified
CPT/HCPCS: 36415; 71275; 74177; 80053; 83690; 87635; 93005; 99285; 83735; 83880; 84484; 85025; 85610; 85730; 93010; 99284; J3490

== ENCOUNTER 2021-05-25 11:38 | Outpatient (REF) | payer MEDICARE, BC, SELFPAY ==
[2021-05-25 14:28] LABS: Microalb ug/mg Crea 38.7 ug/mg Cr
== END 2021-05-25 11:39 | disposition home or self-care (01) ==
LOC: LBN 11:38
PROVIDERS: PCP Nurse Practitioner Family; Visit Provider Nurse Practitioner Family
DX: E11.22 Type 2 diabetes mellitus with diabetic chronic kidney disease (principal)
CPT/HCPCS: 82043; 82570

== ENCOUNTER 2021-05-26 02:55 | Outpatient (CLI) | payer MEDICARE, BC, SELFPAY ==
[2021-05-26 13:57] LABS: Reticulocyte 4.6 % (0.5-2.4)
[2021-05-26 14:29] LABS: COMMENT (LAB VIEW ONLY) 116.08 mg/dL; Iron 92 ug/dL (50-170); Microalb ug/mg Crea 16.8 ug/mg Cr; Total Iron Binding Capacity 384 ug/dL (250-450); Transferrin Sat 24 % (15-50)
[2021-05-26 14:58] LABS: Ferritin 21 ng/mL (8-252); Vitamin B12 698 pg/mL (193-986)
[2021-05-26 15:08] LABS: Folate > 20.0 ng/mL (8.6-20.0)
[2021-05-26 15:19] LABS: LDH 157 U/L (81-234)
[2021-05-29 12:14] LABS: Erythropoietin 191 mIU/mL (2.6 - 18.5)
== END 2021-05-26 02:56 | disposition home or self-care (01) ==
LOC: LBO 02:55
PROVIDERS: PCP Nurse Practitioner Family; Visit Provider Nurse Practitioner Family
DX: N18.32 Chronic kidney disease, stage 3b; D64.9 Anemia, unspecified; E11.22 Type 2 diabetes mellitus with diabetic chronic kidney disease
CPT/HCPCS: 36415; 82668; 82043; 82570; 82607; 82728; 82746; 83540; 83550; 83615; 85045

== ENCOUNTER 2021-05-29 10:00 | Outpatient (RCR) | payer MEDICARE, BC, SELFPAY | END 2021-06-01 23:59 | disposition home or self-care (01) | LOC: CR 10:00 | PROVIDERS: PCP Nurse Practitioner Family; Visit Provider Family Medicine | DX: Z51.89 Encounter for other specified aftercare (principal); I25.2 Old myocardial infarction; Z95.5 Presence of coronary angioplasty implant and graft | CPT/HCPCS: S9472 ==

== ENCOUNTER 2021-06-02 12:32 | Outpatient (CLI) | payer MEDICARE, BC, SELFPAY ==
[2021-06-02 12:17] LABS: HCT 32.9 % (36.0-46.0); HGB 10.3 g/dL (11.2-15.7); MCH 31.5 pg (27.0-33.0); MCHC 31.3 % (32.0-36.0); MCV 100.6 fL (80-95); MPV 8.3 fL (8.0-11.0); Nucleated RBC 0 %; Platelet Count 220 10^3/uL (130-400); RBC 3.27 10^6/uL (3.93-5.22); RDW 15.9 % (11.7-14.6); RDW-SD 58.3 fL
[2021-06-02 12:26] LABS: ALT 29 U/L (14-59); AST 20 U/L (15-37); Albumin 3.7 g/dL (3.4-5.0); Alkaline Phosphatase 41 U/L (46-116); Anion Gap 4.6 mmol/L (3-11); BUN 25 mg/dL (7-18); Bilirubin, Total 0.2 mg/dL (0.2-1.0); CO2 33.4 mmol/L (21.0-32.0); CREATININE 1.1 mg/dL (0.55-1.02); Calcium 9.4 mg/dL (8.5-10.1); Chloride 102 mmol/L (98-107); Estimated GFR 48.96 (mL/min/1.73m2); Glucose 145 mg/dL (74-106); Potassium 4.3 mmol/L (3.5-5.1); Sodium 140 mmol/L (136-145); Total Protein 7.8 g/dL (6.4-8.2)
[2021-06-02 13:28] LABS: Absolute Monocyte Count 0.29 10^3/uL (0.1-0.8)
[2021-06-02 13:29] LABS: Absolute Basophil Count 0.03 10^3/uL (0.0-0.2); Absolute Eosinophil Count 0.03 10^3/uL (0.0-0.7); Absolute Lymphocyte Count 1.15 10^3/uL (1.2-3.4); Atypical Lymphocytes % 6; Diff Comment Manual Differential
== END 2021-06-02 12:33 | disposition home or self-care (01) ==
LOC: LBO 12:35
PROVIDERS: PCP Nurse Practitioner Family; Visit Provider Surgery
DX: D05.12 Intraductal carcinoma in situ of left breast (principal)
CPT/HCPCS: 36415; 80053; 85025

== ENCOUNTER 2021-06-05 14:46 | Outpatient (REF) | payer MEDICARE, BC, SELFPAY ==
--- NOTE | 2021-06-05 10:30 | PAPFT_PTH ---
PATIENT: Nahed Marquez LOC: [facility] U#:[id number] AGE/SX: 70/F ROOM: RE06/05/[address]: KAROLINE Yost : 1950 BED: DIS: 06/05/2021 SPEC #: [id number] RECD: 06/05/21 18:13 STATUS: ARIEL REQ #: [id number] BOY: 06/05/21 10:[address]: Laura Calvin DEPT: [facility] Cytology RECD BY: Kelli Badillo ENTERED: 06/05/21 18:14 SP TYPE: PAPFT OTHR DR: María Mendoza APRN Tissues: 1 - CX/ENDOCX FOR PAP SMEARS Procedures: PAP THIN PREP/[facility] Screening HPV DNA PROBE Comments: [id number]
== END 2021-06-05 14:47 | disposition home or self-care (01) ==
LOC: LBN 14:46
PROVIDERS: PCP Nurse Practitioner Family; Visit Provider Nurse Practitioner Family
DX: Z12.4 Encounter for screening for malignant neoplasm of cervix (principal); Z11.51 Encounter for screening for human papillomavirus (HPV); Z01.419 Encounter for gynecological examination (general) (routine) without abnormal findings
CPT/HCPCS: 88142; 87624

== ENCOUNTER 2021-06-14 15:51 | Outpatient (REF) | payer MEDICARE, BC, SELFPAY | END 2021-06-14 15:52 | disposition home or self-care (01) | LOC: LBN 15:51 | PROVIDERS: PCP Nurse Practitioner Family; Visit Provider Obstetrics & Gynecology | DX: R35.0 Frequency of micturition (principal) | CPT/HCPCS: 87077; 87086; 87186 ==

== ENCOUNTER 2021-06-21 10:00 | Outpatient (RCR) | payer MEDICARE, BC, SELFPAY | END 2021-07-02 23:59 | disposition home or self-care (01) | LOC: CR 10:00 | PROVIDERS: PCP Nurse Practitioner Family; Visit Provider Family Medicine | DX: Z51.89 Encounter for other specified aftercare (principal); I25.2 Old myocardial infarction; Z95.5 Presence of coronary angioplasty implant and graft | CPT/HCPCS: S9472 ==

== ENCOUNTER → 2021-06-30 14:47 | Outpatient (BNVA) | payer MEDICARE, BC, SELFPAY | PROVIDERS: PCP Nurse Practitioner Family; Referring Provider Nurse Practitioner Family; Visit Provider Urology | DX: R31.0 Gross hematuria (principal); N39.0 Urinary tract infection, site not specified | CPT/HCPCS: 81003; 99214 ==

== ENCOUNTER 2021-07-05 00:54 | Outpatient (CLI) | payer MEDICARE, BC, SELFPAY ==
--- NOTE | 2021-07-05 11:00 | DI.DEXA_ITS ---
Exam(s) XR DEXA BONE DENSITY W/WO JUAN EXAM: XR DEXA BONE DENSITY W/WO JUAN CLINICAL HISTORY: BREAST CANCER C50.912 Z17.0 ABLE SEAMAN USE AROMATASE INHIBITOR Z79.811 TECHNIQUE: Routine DEXA evaluation of the lumbar spine, hip, or forearm. COMPARISON: Prior DEXA scan February 2016 was reviewed FINDINGS: Performed on a [employer] unit. Lateral image: No compression fracture evident. Lumbar Spine total T-score: 0.0. Prior 2016 reading was -0.8 Hip total T-score:0.0. Prior 2016 reading was 0.3 Independent reading at the level of the femoral neck yields at T-score of -1.6. Forearm total T-score: -1.1 IMPRESSION: Bone mineral density measures in the osteopenia range. Fracture risk is moderate. Note: Any spine fracture indicates 5x risk for subsequent spine fracture and 2x risk for subsequent h ip fracture. World Health Organization criteria for BMD interpretation classify patients: Normal...... T- Score at or above -1.0 Osteopenic... T- Score between -1.0 and -2.5 Osteoporosis... T-Score at or below -2.5
== END 2021-07-05 01:14 ==
PROVIDERS: PCP Nurse Practitioner Family; Visit Provider Internal Medicine Medical Oncology
DX: Z13.820 Encounter for screening for osteoporosis (principal); Z79.811 Long term (current) use of aromatase inhibitors; C50.912 Malignant neoplasm of unspecified site of left female breast
CPT/HCPCS: 77080

== ENCOUNTER 2021-08-11 18:55 | Outpatient (REF) | payer MEDICARE, BC, SELFPAY | END 2021-08-11 18:56 | disposition home or self-care (01) | LOC: LBN 18:55 | PROVIDERS: PCP Nurse Practitioner Family; Visit Provider Nurse Practitioner Family | DX: L03.114 Cellulitis of left upper limb (principal) | CPT/HCPCS: 87077; 87070; 87186; 87205 ==

== ENCOUNTER 2021-08-17 10:56 | Outpatient (CLI) | payer MEDICARE, BC, SELFPAY ==
--- NOTE | 2021-08-17 11:00 | RT.EKG_ITS ---
APPROVED REPORT Exam: Resting ECG Reason for Exam: CAD Patient Location: O HR:73 bpm ECG Measurements Heart Rate 73 AXIS HI 185 P 83 QRSd 88 QRS 59 QT 383 T 51 QTc 422 Conclusion Sinus rhythm...normal P axis, V-rate 50- 99 Probable left atrial enlargement...P >50mS, <-0.10mV V1 Poor R wave progression Baseline wander in lead(s) V6
== END 2021-08-17 10:57 | disposition home or self-care (01) ==
LOC: DI.CARD 11:11
PROVIDERS: PCP Nurse Practitioner Family; Referring Provider Nurse Practitioner Family; Visit Provider Internal Medicine Cardiovascular Disease
DX: I21.4 Non-ST elevation (NSTEMI) myocardial infarction (principal); I25.10 Atherosclerotic heart disease of native coronary artery without angina pectoris
CPT/HCPCS: 93010

== ENCOUNTER → 2021-08-17 10:56 | Outpatient (BNVA) | payer MEDICARE, BC, SELFPAY | PROVIDERS: PCP Nurse Practitioner Family; Referring Provider Nurse Practitioner Family; Visit Provider Internal Medicine Cardiovascular Disease | DX: I25.10 Atherosclerotic heart disease of native coronary artery without angina pectoris (principal); I25.2 Old myocardial infarction; I10 Essential (primary) hypertension; C50.912 Malignant neoplasm of unspecified site of left female breast; Z17.0 Estrogen receptor positive status [ER+]; J44.9 Chronic obstructive pulmonary disease, unspecified; Z99.81 Dependence on supplemental oxygen; Z95.818 Presence of other cardiac implants and grafts | CPT/HCPCS: 93005; 99203; 99214 ==

== ENCOUNTER 2021-09-05 03:25 | Outpatient (CLI) | payer MEDICARE, BC, SELFPAY ==
[2021-09-05 13:39] LABS: Abs Immature Grans 0.17 10^3/uL (0.0-0.06); Absolute Basophil Count 0.02 10^3/uL (0.0-0.2); Absolute Eosinophil Count 0.07 10^3/uL (0.0-0.7); Absolute Lymphocyte Count 1.01 10^3/uL (1.2-3.4); Absolute Monocyte Count 0.42 10^3/uL (0.1-0.8); Absolute Neutrophil Count 1.89 10^3/uL (1.2-6.7); Basophils % 0.6; HCT 36.7 % (36.0-46.0); HGB 11.4 g/dL (11.2-15.7); Immature Grans % 4.7; Lymphocytes % 28.2; MCH 31.1 pg (27.0-33.0); MCHC 31.1 % (32.0-36.0); MCV 100.3 fL (80-95); MPV 8.6 fL (8.0-11.0); Monocytes % 11.7; Neutrophils % 52.8; Nucleated RBC 0 %; Platelet Count 225 10^3/uL (130-400); RBC 3.66 10^6/uL (3.93-5.22); RDW 13.5 % (11.7-14.6); RDW-SD 49.4 fL; WBC 3.58 10^3/uL (4.4-10.8)
[2021-09-05 15:13] LABS: Iron 313 ug/dL (50-170); Total Iron Binding Capacity 423 ug/dL (250-450); Transferrin Sat 74 % (15-50)
[2021-09-05 15:20] LABS: Ferritin 18 ng/mL (8-252)
--- NOTE | 2021-09-07 11:40 | W.DIABETESNO ---
Date of service: 09/07/21 Time of Service: 11:40 Diabetes Note NOTE: Spoke to Ike on phone today. She reports being unable to use CGM due to hypersensitivity to adhesives. Most recent A1C (08/21/21): 6.9%, DM meds: 500 mg metformin BID, 25 mg jardiance daily. Diet: well balanced. At this time DM2 very well controlled with medications/diet. Recommend d/c CGM and go back to finger sticks - daily fasting, occasional post prandial during week, check A1C q 6 months. Available prn. Time Spent in Nutritional Counseling and Treatment: 10
== END 2021-09-05 03:26 | disposition home or self-care (01) ==
LOC: LBO 03:26
PROVIDERS: PCP Nurse Practitioner Family; Visit Provider Nurse Practitioner Family
DX: D64.9 Anemia, unspecified (principal)
CPT/HCPCS: 36415; 82728; 83540; 83550; 85025

== ENCOUNTER 2021-09-22 01:45 | Outpatient (CLI) | payer MEDICARE, BC, SELFPAY ==
[2021-09-22 13:21] LABS: ALT 32 U/L (14-59); AST 16 U/L (15-37); Albumin 3.7 g/dL (3.4-5.0); Alkaline Phosphatase 44 U/L (46-116); Anion Gap 7.3 mmol/L (3-11); BUN 31 mg/dL (7-18); Bilirubin, Total 0.2 mg/dL (0.2-1.0); CO2 31.7 mmol/L (21.0-32.0); CREATININE 1.1 mg/dL (0.55-1.02); Chloride 101 mmol/L (98-107); Estimated GFR 48.82 (mL/min/1.73m2); Glucose 112 mg/dL (74-106); Potassium 3.9 mmol/L (3.5-5.1); Sodium 140 mmol/L (136-145); Total Protein 7.3 g/dL (6.4-8.2)
== END 2021-09-22 01:46 | disposition home or self-care (01) ==
LOC: LBO 01:45
PROVIDERS: PCP Nurse Practitioner Family; Visit Provider Internal Medicine Hematology & Oncology
DX: C50.912 Malignant neoplasm of unspecified site of left female breast (principal)
CPT/HCPCS: 36415; 80053

== ENCOUNTER 2021-10-06 15:36 | Outpatient (REF) | payer MEDICARE, BC, SELFPAY ==
[2021-10-07 12:35] LABS: COVID-19 RT-PCR UVMMC Result Negative (Negative)
== END 2021-10-06 15:37 | disposition home or self-care (01) ==
LOC: LBN 15:36
PROVIDERS: PCP Nurse Practitioner Family; Visit Provider Nurse Practitioner Family
DX: Z20.822 Contact with and (suspected) exposure to COVID-19 (principal)
CPT/HCPCS: U0003; U0005

== ENCOUNTER 2021-10-06 18:47 | Outpatient (CLI) | payer MEDICARE, BC, SELFPAY ==
--- NOTE | 2021-10-06 11:15 | DI.RAD_ITS ---
Exam(s) XR CHEST 2V PA LATERAL EXAM: XR CHEST 2V PA LATERAL CLINICAL HISTORY: r/o pneumonia,cough, r05.9 TECHNIQUE: 2D digital imaging was performed of the chest. Two images were obtained. PA and lateral views were obtained. COMPARISON: CR XR CHEST 2V PA LATERAL from 01/26/2021 CR,XR XR CHEST 2V PA LATERAL from 03/29/2021 FINDINGS: MEDIASTINUM: Normal. HEART: Normal. PULMONARY VASCULATURE: Normal. LUNGS: There are increased lung markings in the left base. A developing pneumonia cannot be excluded . The lungs are otherwise clear. The lungs are hyperinflated with flattened diaphragms suggesting u nderlying COPD. PLEURAL SPACE: No pleural effusion or pneumothorax. BONE:Within normal limits for the patient's age. OTHER FINDINGS:Normal. IMPRESSION: Increased lung markings in the left base suspicious for developing pneumonia. Please correlate clini erlinda. DATA REPOSITORY: RADIATION DOSE DELIVERED:
== END 2021-10-06 19:07 ==
PROVIDERS: PCP Nurse Practitioner Family; Visit Provider Nurse Practitioner Family
DX: R05.8 Other specified cough (principal); J44.9 Chronic obstructive pulmonary disease, unspecified; J98.4 Other disorders of lung
CPT/HCPCS: 71046

== ENCOUNTER 2021-11-19 14:44 | Emergency (ER) | payer MEDICARE, BC, SELFPAY ==
[2021-11-19] VITALS (14 sets, daily range): BP systolic 94–97; BP diastolic 52–68; PULSE 70–85; RESP 16–18; TEMP 36.4–36.5; O2SAT 88–100
[2021-11-19] MEDS: Silver Nitrate Stick 1 EACH TP (15:05)
--- NOTE | 2021-11-19 15:30 | ED.GENADUL_ITS ---
Discharge Plan Disposition Patient Disposition: HOME Condition: Stable Discharge Details Clinical Impression: Acute anterior epistaxis, Chronic anemia Primary Care Provider: María Mendoza ED Provider: Harry Acosta Home Meds and New Rx's Prescriptions: Continued pantoprazole 20 mg tablet,delayed release (DR/EC) 20 mg PO DAILY Qty: 90 3RF Rx Instructions: Take 20 mg daily once daily in the morning at least 30-60 minutes before first meal of the day hydrochlorothiazide 25 mg tablet 25 mg PO DAILY AM Qty: 90 3RF albuterol sulfate [ProAir HFA] 90 mcg/actuation HFA aerosol inhaler 1 - 2 puff Inhalation Q4H PRN Qty: 8.5 1RF clotrimazole-betamethasone 1-0.05 % cream 1 applic topical BID 10 Days Qty: 15 2RF cetirizine 10 mg tablet 10 mg PO DAILY PRN (Reason: allergy symptoms) Qty: 30 0RF Glucagon Emergency Kit (human) 1 mg recon soln 1 mg subcut ONCE Qty: 1 0RF Rx Instructions: 1 mg SQ ONCE; may repeat in 15 minutes as needed Trelegy Ellipta 100-62.5-25 mcg blister with device 1 inh inhalation DAILY Qty: 60 8RF (DME) pen needle, diabetic [Lite Touch Insulin Pen [place]] 31 gauge x 3/16 needle See Rx Instructions .ROUTE .MEDSUPPLY Qty: 400 3RF Rx Instructions: To administer Insulin 4 times a day. Dispense covered brand. For E11.9 to maintain A1C<7. Oxygen EACH NS At Night Qty: 2 0RF Label Comments: 2 L at night and CPAP- patient states she wore these 11/10/17 multivitamin [Daily Multi-Vitamin] 1 EACH tablet 1 ea PO DAILY 0RF Label Comments: patient states she took this roughly one week ago (DME) lancets [Sure Comfort Lancets] 1 EACH misc 1 ea Miscellaneous DAILY Qty: 1 3RF Rx Instructions: Dx: E11.9 to maintain HbA1C less than 7% acetaminophen 500 MG tablet 1,000 mg PO TID PRNQty: 90 0RF cyanocobalamin (vitamin B-12) 1,000 mcg tablet 1,000 mcg PO DAILY Qty: 90 3RF metformin 500 mg tablet 500 mg PO BID MDD 1000 mg Qty: 180 3RF Rx Instructions: DOSED FOR RENAL FUNCTION magnesium oxide 400 mg (241.3 mg magnesium) tablet See Rx Instructions PO .COMPLEX Qty: 270 3RF Rx Instructions: 800 mg AM & 400 mg PM PO Jardiance 25 mg tablet 25 mg PO DAILY AM Qty: 90 3RF Rx Instructions: Administer once daily in the morning, with or without food nitroglycerin 0.4 mg tablet, sublingual 0.4 mg sublingual Q5M PRN0RF Rx Instructions: do not exceed 3 doses per episode cetirizine 10 mg tablet 10 mg PO DAILY Qty: 90 3RF clopidogrel 75 mg tablet 75 mg PO DAILY Qty: 90 3RF rosuvastatin 40 mg tablet 40 mg PO DAILY Qty: 90 3RF albuterol sulfate 2.5 mg /3 mL (0.083 %) solution for nebulization 2.5 mg IH Q4H PRN (Reason: bronchospasm) Qty: 180 6RF Lantus Solostar U-100 Insulin 100 unit/mL (3 mL) insulin pen See Rx Instructions subcut BID Qty: 13 3RF Rx Instructions: 20 units AM and 21 units PM subcut twice a day; insulin lispro [Humalog KwikPen Insulin] 100 unit/mL insulin pen 4 - 6 unit subcut TID PRN (Reason: high blood sugar) Qty: 6 3RF Label Comments: INJECT 4 UNITS UNDER THE SKIN BEFORE MEALS DIRECTED (DME) FreeStyle Basia 2 [place] Misc See Rx Instructions .ROUTE .MEDSUPPLY Qty: 1 0RF Rx Instructions: As directed (DME) FreeStyle Basia 2 Sensor Kit See Rx Instructions .ROUTE .MEDSUPPLY Qty: 6 3RF Rx Instructions: As directed metoprolol succinate 50 mg tablet extended release 24 hr 50 mg PO DAILY Qty: 90 3RF valsartan 80 mg tablet 80 mg PO DAILY Qty: 90 3RF ferrous sulfate 325 mg (65 mg iron) tablet 325 mg PO TID Qty: 270 3RF (DME) Blood Glucose Test Strip See Rx Instructions .ROUTE .MEDSUPPLY Qty: 400 3RF Rx Instructions: As directed to check blood glucose four times daily. On insulin. Dispense covered brand. Prolia 60 mg/mL syringe 60 mg subcut [id number] 0RF letrozole 2.5 mg tablet 2.5 mg PO DAILY PRN0RF Rx Instructions: 09/22/21 Hem/Onc prescribes. calcium carbonate-vitamin D3 600 mg-20 mcg (800 unit) tablet 2 tab PO DAILY Qty: 180 3RF Rx Instructions: Take 2 pills daily triamcinolone acetonide 0.1 % ointment 1 applic topical BID 0RF Rx Instructions: 10/10/21 Derm montelukast [Singulair] 10 mg tablet 10 mg PO DAILY Qty: 90 3RF aspirin [Aspir-81] 81 MG tablet,delayed release (DR/EC) 81 mg PO DAILY Qty: 90 3RF Discharge Instructions Additional Instructions: Please do not blow your nose or insert anything into your nostril. Allow your nasal injury to heal. Avoid nasal cannula oxygen if possible to allow healing. Use mask oxygen. Please contact your primary care physician to arrange follow-up. Your blood pressure was low today. Please review this with your primary care physician as adjustments may need to be made to your antihypertensive medication. Return to the ER immediately for any worsening or new concerning symptoms. Referrals: María Mendoza NP [Primary Care Provider] - Medical Decision Making 1600 -- 71-year-old female on aspirin and Plavix as well as chronic nasal cannula oxygen, here with epistaxis that started last night after ear nose. Epistaxis is localized to left nare. Clot was removed from the nare and visualized anterior source. Silver nitrate was utilized to cauterize source superficial mucosal layer. Patient was noted to have low normal blood pressure with systolic in the 90s. Consider acute blood loss anemia. Will check labs. --Labs reviewed and chronic unchanged anemia noted. Patient reassessed and blood pressure remains low normal. This was discussed with the patient who notes she has been taking her antihypertensives at [facility]. Patient is asymptomatic. She ambulated around the emergency department without any difficulty. Plan for discharge with outpatient follow-up. Usual usual customary discharge instructions reviewed with the patient. HPI General Mode of arrival: ambulatory . Date/Time Provider Initiated Documentation: 11/19/21 14:51 . Limitations to Documentation: no limitations . Information obtained by: patient . HPI Narrative: 71-year-old female on chronic nasal cannula oxygen, presents with chief complaint of epistaxis. Patient notes yesterday evening she picked her nose and then her nose started bleeding. She had bleeding from her left nare since last night. Bleeding has persisted. Bleeding described as oozing. She is concerned that she has a clot in her left nostril. Patient denies that she had a dizziness. Related Data Home Medications Medication Instructions Recorded Confirmed aspirin 81 mg tablet,delayed 81 mg PO DAILY #90 03/30/13 11/19/21 release (Aspir-) multivitamin (Daily Multi-Vitamin) 1 ea PO DAILY 03/19/17 11/19/21 lancets 28 gauge (Sure Comfort #1 box 06/24/17 11/19/21 Lancets) acetaminophen 500 mg tablet 1,000 mg PO TID PRN #90 tab-cap 12/16/17 11/19/21 cyanocobalamin (vitamin B-12) 1,000 mcg PO DAILY #90 tab-cap 05/07/18 11/19/21 1,000 mcg tablet metformin 500 mg tablet 500 mg PO BID #180 tab MDD 1000 mg 09/23/20 11/19/21 glucagon (human recombinant) 1 mg 1 mg SUBCUT ONCE #1 ea 11/11/20 11/19/21 solution for injection (Glucagon Emergency Kit) magnesium oxide 400 mg (241.3 mg See Rx Instructions PO .COMPLEX 11/16/20 11/19/21 magnesium) tablet #270 tab-cap empagliflozin 25 mg tablet 25 mg PO DAILY AM #90 tab-cap 01/02/21 11/19/21 (Jardiance) nitroglycerin 0.4 mg sublingual 0.4 mg SUBLINGUAL Q5M PRN 02/01/21 11/19/21 tablet hydrochlorothiazide 25 mg tablet 25 mg PO DAILY AM #90 tab-cap 02/16/21 11/19/21 pantoprazole 20 mg tablet,delayed 20 mg PO DAILY #90 tab-cap 02/16/21 11/19/21 release cetirizine 10 mg tablet 10 mg PO DAILY #90 tab 03/01/21 11/19/21 albuterol sulfate 90 mcg/actuation 1 - 2 puff INHALATION Q4H PRN #8.5 04/10/21 11/19/21 aerosol inhaler (ProAir HFA) g fluticasone fur. 100 mcg-umeclid 1 inh INHALATION DAILY #60 ea 04/12/21 11/19/21 62.5 mcg-vilant 25 mcg inhalat.powder (Trelegy Ellipta) clopidogrel 75 mg tablet 75 mg PO DAILY #90 tab 04/26/21 11/19/21 rosuvastatin 40 mg tablet 40 mg PO DAILY #90 tab 04/26/21 11/19/21 albuterol sulfate 2.5 mg (3 mL) IH Q4H PRN #180 ml 05/03/21 11/19/21 insulin glargine 100 unit/mL (3 See Rx Instructions SUBCUT BID #13 05/03/21 11/19/21 mL) subcutaneous pen (Lantus syrg Solostar U-100 Insulin) flash glucose scanning reader #1 ea 05/04/21 11/19/21 (FreeStyle Basia 2 [place]) flash glucose sensor (FreeStyle #6 ea 05/04/21 11/19/21 Basia 2 Sensor) insulin lispro 100 unit/mL 4 - 6 unit (0.04 - 0.06 mL) SUBCUT 05/04/21 11/19/21 subcutaneous pen (Humalog KwikPen TID PRN #6 syrg (U-100) Insulin) metoprolol succinate 50 mg 50 mg PO DAILY #90 tab 05/31/21 11/19/21 tablet,extended release 24 hr valsartan 80 mg tablet 80 mg PO DAILY #90 tab 05/31/21 11/19/21 clotrimazole-betamethasone 1 1 applic TOPICAL BID 10 Days #15 g 06/05/21 11/19/21 %-0.05 % topical cream ferrous sulfate 325 mg (65 mg 325 mg PO TID #270 tab 07/31/21 11/19/21 iron) tablet blood sugar diagnostic (Blood #400 ea 09/07/21 11/19/21 Glucose Test) cetirizine 10 mg tablet 10 mg PO DAILY PRN #30 tab 09/11/21 11/19/21 denosumab 60 mg/mL subcutaneous 60 mg SUBCUT [id number] 09/25/21 11/19/21 syringe (Prolia) letrozole 2.5 mg tablet 2.5 mg PO DAILY PRN 09/25/21 11/19/21 calcium carbonate 600 mg-vitamin 2 tab PO DAILY #180 tab-cap 10/09/21 11/19/21 D3 20 mcg (800 unit) tablet triamcinolone acetonide 0.1 % 1 applic TOPICAL BID 10/10/21 11/19/21 topical ointment pen needle, diabetic 31 gauge x #400 ea 10/19/21 11/19/21/16 (Lite Touch Insulin Pen [place]) montelukast 10 mg tablet 10 mg PO DAILY #90 tab-cap 11/15/21 11/19/21 (Singulair) Previous Rx's Medication Instructions Recorded lancets 28 gauge (Sure Comfort #1 box 06/24/17 Lancets) cyanocobalamin (vitamin B-12) 1,000 mcg PO DAILY #90 tab-cap 05/07/18 1,000 mcg tablet metformin 500 mg tablet 500 mg PO BID #180 tab MDD 1000 mg 09/23/20 glucagon (human recombinant) 1 mg 1 mg SUBCUT ONCE #1 ea 11/11/20 solution for injection (Glucagon Emergency Kit) magnesium oxide 400 mg (241.3 mg See Rx Instructions PO .COMPLEX 11/16/20 magnesium) tablet #270 tab-cap empagliflozin 25 mg tablet 25 mg PO DAILY AM #90 tab-cap 01/02/21 (Jardiance) hydrochlorothiazide 25 mg tablet 25 mg PO DAILY AM #90 tab-cap 02/16/21 pantoprazole 20 mg tablet,delayed 20 mg PO DAILY #90 tab-cap 02/16/21 release cetirizine 10 mg tablet 10 mg PO DAILY #90 tab 03/01/21 albuterol sulfate 90 mcg/actuation 1 - 2 puff INHALATION Q4H PRN #8.5 04/10/21 aerosol inhaler (ProAir HFA) g fluticasone fur. 100 mcg-umeclid 1 inh INHALATION DAILY #60 ea 04/12/21 62.5 mcg-vilant 25 mcg inhalat.powder (Trelegy Ellipta) clopidogrel 75 mg tablet 75 mg PO DAILY #90 tab 04/26/21 rosuvastatin 40 mg tablet 40 mg PO DAILY #90 tab 04/26/21 albuterol sulfate 2.5 mg (3 mL) IH Q4H PRN #180 ml 05/03/21 insulin glargine 100 unit/mL (3 See Rx Instructions SUBCUT BID #13 05/03/21 mL) subcutaneous pen (Lantus syrg Solostar U-100 Insulin) flash glucose scanning reader #1 ea 05/04/21 (FreeStyle Basia 2 [place]) flash glucose sensor (FreeStyle #6 ea 05/04/21 Basia 2 Sensor) insulin lispro 100 unit/mL 4 - 6 unit (0.04 - 0.06 mL) SUBCUT 05/04/21 subcutaneous pen (Humalog KwikPen TID PRN #6 syrg (U-100) Insulin) metoprolol succinate 50 mg 50 mg PO DAILY #90 tab 05/31/21 tablet,extended release 24 hr valsartan 80 mg tablet 80 mg PO DAILY #90 tab 05/31/21 clotrimazole-betamethasone 1 1 applic TOPICAL BID 10 Days #15 g 06/05/21 %-0.05 % topical cream ferrous sulfate 325 mg (65 mg 325 mg PO TID #270 tab 07/31/21 iron) tablet blood sugar diagnostic (Blood #400 ea 09/07/21 Glucose Test) cetirizine 10 mg tablet 10 mg PO DAILY PRN #30 tab 09/11/21 calcium carbonate 600 mg-vitamin 2 tab PO DAILY #180 tab-cap 10/09/21 D3 20 mcg (800 unit) tablet pen needle, diabetic 31 gauge x #400 ea 10/19/21/ (Lite Touch Insulin Pen [place]) montelukast 10 mg tablet 10 mg PO DAILY #90 tab-cap 11/15/21 (Singulair) Allergies Allergy/AdvReac Type Severity Reaction Status Date / Time propylene glycol Allergy Severe Rash Verified 11/19/21 14:59 petrolatum,white Allergy Intermediate rash Verified 11/19/21 14:59 [From Petroleum Jelly] adhesive tape Allergy Unknown Skin Rash Verified 11/19/21 14:59 alendronate sodium Allergy Unknown Hives Verified 11/19/21 14:59 azithromycin AdvReac Intermediate dry heaves Verified 11/19/21 14:59 and diarrhea hydrocodone bitartrate AdvReac Intermediate Nausea Verified 11/19/21 14:59 [From Vicodin] liraglutide [From Victoza] AdvReac Intermediate diarhhea Verified 11/19/21 14:59 paraben AdvReac Intermediate Skin Rash Verified 11/19/21 14:59 quaternium 15 AdvReac Intermediate generalized Verified 11/19/21 14:59 rash roflumilast AdvReac Intermediate Diarrhea Verified 11/19/21 14:59 LANDON Inhibitors AdvReac Unknown COUGH,DYSPN Verified 11/19/21 14:59 EA oxycodone HCl [From Percocet] AdvReac Unknown NAUSEA/VOMI Verified 11/19/21 14:59 TING fragranced creams Allergy Intermediate Skin Rash Uncoded 11/19/21 14:59 parabin wax Allergy Intermediate Skin Rash Uncoded 11/19/21 14:59 diogolidinyl AdvReac Severe Skin Rash Uncoded 11/19/21 14:59 bisphenal AdvReac Intermediate Skin Rash Uncoded 11/19/21 14:59 General Stated Complaint: Epistaxis BRUNA: 3 Review of Systems All systems reviewed & are unremarkable except as noted in HPI and below Constitutional Constitutional: Denies fever(s) ENT Ears, Nose, Mouth, and Throat: Reports as per HPI PFSH All Active Problems (Updated 11/19/21 @ 17:09 by Harry Acosta MD) Acute anterior epistaxis (Acute) Chronic anemia (Acute) Pneumonia (Acute) Renal artery stenosis, [place], bilateral (Chronic) [facility] [place]; most recent OV 06/01/21 Atherosclerosis of both carotid arteries (Chronic 11/12/16) [facility]; most recent OV 06/01/21; Recommend annual carotid US Breast cancer in female (Chronic) R 2002, L 2004 s/p B/L partial mastectomy, XRT, & tamoxifen. 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 Cruz) ASCVD (arteriosclerotic cardiovascular disease) (Chronic) [facility] 06/01/21 Vascular note: Asymptomatic bilateral carotid artery stenosis Non-ST elevation (NSTEMI) myocardial infarction (Acute ~12/2020) S/p proximal LCX stent placement 01/27/21 [facility] [place] Allergic rhinitis (Chronic) Vaginitis and vulvovaginitis, unspecified (Acute) CKD (chronic kidney disease) (Chronic) Microalbuminuria due to type 2 diabetes mellitus (Chronic) Spinal stenosis (Chronic 02/04/14) Multi level on MRI Obstructive sleep apnea (Chronic 03/02/14) Bipap w/ 2L 02 09/06/2019 Reflux esophagitis (Chronic 07/16/12) LA GRADE B , EGD W/ BX 05/04/15 Osteopenia (Chronic 02/14/16) DEXA 02/14/16: Fem neck t-score -1.2 --> WHO FRAX major osteoporotic 13% & hip fx 1.3% risk --> does not qualify for bisphosphonates --> Ca & vit D 03/2017 L3 compression fx --> re-calc WHO FRAX major osteoporotic 21% & hip fx 2.3% risk --> now qualifies for bisphosphonate tx, started 03/2017 Probable allergic rxn to Alendronate (1st pill Wed, Hiv Th and stayed thru today (but no worsening), 07/05. Agree to STOP for now. Intraabdominal calcification (Chronic 11/14/15) Incidental finding on CT 2 mm between bladder and uterus, no further eval required, AOC Hyperlipidemia (Chronic 03/18/07) Essential hypertension (Chronic 05/16/04) DJD (degenerative joint disease) (Chronic 02/04/14) Lumbar spine--multiple level on MRI Surgery 10/2011, [facility] Dr. Smith Medical History Anemia (02/11/14) Suspect chronic dz/bone marrow suppression s/p breast CA tx (radiation); s/p GI workup (possible AVMs?), NL B12/folate, elevated Epo, NL retic count; chronic iron supplementation Chronic GI bleeding Compression fracture of lumbar vertebra (03/14/17) Depression (11/30/02) s/p of brother (on SSRI for short time) Headache Heart murmur 07/11/2016 echo: mild-moderate mitral regurgitation Hiatal hernia (02/11/14) Smaller portions Endoscopy 10/04 anemia (nothing found), [facility] Hypomagnesemia (03/04/17) Leg cramps (04/01/14) Low Mg+ --> supplementation helped, but caused diarrhea; handout on dietary Mg+ given Pericarditis (~12/2020) S/p IL Solitary pulmonary nodule (12/22/15) Incidental finding of 6 mm pulm nodule RLL on 11/07/[address] with 6 month f/u chest CT recommended; 04/2016 6-month f/u chest CT: resolution of nodule 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 Dr Agee H/O laminectomy L5S1 H/O laminectomy (~10/06/12) L5S1 Dr. Jarrod Ballard H/O partial mastectomy (~10/26/21) Left breast History of hysterectomy, supracervical Oophrectomy, Right (~2007) For unknown reason S/P breast biopsy, left (05/09/21) u/s guided Core Bx Status post coronary artery stent placement (~01/27/21) Tooth Extractions Multiple Family History Sister Breast cancer Mother , 89 Alzheimer's dementia Breast cancer Father , AGE 75 Alcohol abuse Cirrhosis Sister Neoplasm uterine CA Sister Heart disease Brother Heart disease Niece Breast cancer Social History Smoking/Tobacco Use Status: Former Tobacco Use tobacco type: cigarettes Quit Date: 09/02/95 Tobacco: How many years used: 25 Smoking risk assessment performed?: Yes Alcohol Intake: former Details: none Drug use: Never Substance use type: does not use Adopted: No Caregiver/Support person: No Foster care: No Household members: spouse Number of Children: 4 Communication Needs: None Pets and animals: No Current gender identity: female What type of physical activity do you participate in: regular exercise Duration: < 15 minutes/day Frequency: 3-4 times per week Mell/Roman Catholic: Mormonism Seatbelt use: always Drive intox or ride w/intox dinkey driver: No Working smoke detector in home: Yes Fire extinguisher in home: Yes Carbon monox detector in home: Yes Do you feel safe at home: Yes Do you feel safe in your relationship?: Yes Additional Social history: Lives with in [place]. 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 She has 11 grandkids who all live close. History History Para Hx # Term Pregnancies Multiple births Hx # Pregnancies Ectopic pregnancies AB induced Hx Number of Living Children 4 AB spontaneous Exam Const General: cooperative and no acute distress HENMT Head: normocephalic and atraumatic General nose exam: epistaxis on the left anterior source and active bleeding (ooze) Mouth: moist mucous membranes Eyes Conjunctivae: normal conjunctivae Sclera: normal sclerae Neck Neck: trachea midline and supple Resp Auscultation: clear to auscultation bilaterally, no rales, no rhonchi and no wheezes Cardio Rate: regular rate and not tachycardic Rhythm: regular rhythm Neuro General: patient alert, patient awake and tone normal Psych Appearance: grossly normal Mental Status: mental status grossly normal Speech and Movement: speech and movement normal Course Vital Signs Vital signs: Vital Signs Temperature 36.4 C L 11/19/21 14:48 Pulse 85 11/19/21 14:48 Respiratory Rate 18 11/19/21 14:48 Blood Pressure 97/68 L 11/19/21 14:48 Pulse Oximetry 88 L 11/19/21 14:48 Temperature 36.4 C L 11/19/21 14:48 Temperature Source Skin 11/19/21 14:48 Pulse 85 11/19/21 14:48 Respiratory Rate 18 11/19/21 14:48 Respiratory Effort 11/19/21 14:54 Blood Pressure 97/68 L 11/19/21 14:48 Pulse Oximetry 98 11/19/21 15:03 Oxygen Delivery Method Nasal Cannula 11/19/21 15:03 Oxygen Flow Rate 1 11/19/21 15:03 Pain Level 0 11/19/21 14:48 Comment unable to apply due to episaxis 11/19/21 14:48 Procedures Epistaxis Control Time Out Performed: Yes Nostril: left Direct Inspection: yes Clots Removed by: blowing nose and manually Cautery Used: silver nitrate Patient Tolerated Procedure: well and no complications
[2021-11-19 15:54] LABS: HCT 32.2 % (36.0-46.0); HGB 10.2 g/dL (11.2-15.7); MCH 32.2 pg (27.0-33.0); MCHC 31.7 % (32.0-36.0); MCV 101.6 fL (80-95); MPV 8.6 fL (8.0-11.0); Platelet Count 224 10^3/uL (130-400); RBC 3.17 10^6/uL (3.93-5.22); RDW-SD 55.5 fL; WBC 3.34 10^3/uL (4.4-10.8)
[2021-11-19 16:05] LABS: ALT 29 U/L (14-59); AST 18 U/L (15-37); Albumin 3.9 g/dL (3.4-5.0); Alkaline Phosphatase 50 U/L (46-116); Anion Gap 6.9 mmol/L (3-11); BUN 28 mg/dL (7-18); Bilirubin, Total 0.3 mg/dL (0.2-1.0); CO2 30.1 mmol/L (21.0-32.0); CREATININE 1.4 mg/dL (0.55-1.02); Calcium 9.3 mg/dL (8.5-10.1); Chloride 104 mmol/L (98-107); Estimated GFR 36.96 (mL/min/1.73m2); Glucose 149 mg/dL (74-106); Potassium 4.1 mmol/L (3.5-5.1); Sodium 141 mmol/L (136-145); Total Protein 7.5 g/dL (6.4-8.2)
== END 2021-11-19 17:20 | disposition home or self-care (01) ==
PROVIDERS: Emergency Provider Student in an Organized Health Care Education/Training Program; PCP Nurse Practitioner Family
DX: R04.0 Epistaxis (principal); D53.9 Nutritional anemia, unspecified
CPT/HCPCS: 30901; 80053; 85027; 86850; 86900; 86901

== ENCOUNTER 2021-12-04 17:58 | Emergency (ER) | payer MEDICARE, BC, SELFPAY ==
[2021-12-04] VITALS (59 sets, daily range): BP systolic 102–165; BP diastolic 46–80; PULSE 64–84; RESP 16–29; TEMP 36.7; O2SAT 96–100
--- NOTE | 2021-12-04 18:15 | RT.EKG_ITS ---
APPROVED REPORT Exam: Resting ECG Reason for Exam: SYLVIE CABEZAS Patient Location: E HR:67 bpm ECG Measurements Heart Rate 67 AXIS OH 173 P 73 QRSd 84 QRS 36 QT 421 T 32 QTc 445 Conclusion Sinus rhythm...normal P axis, V-rate 60- 99
--- NOTE | 2021-12-04 18:15 | DI.RAD_ITS ---
Exam(s) XR PORTABLE CHEST AP EXAM: XR PORTABLE CHEST AP CLINICAL HISTORY: CP, SOB, PUI TECHNIQUE: 2D digital imaging was performed of the chest. One image was obtained. An AP view was ob tained. COMPARISON: CR,XR XR PORTABLE CHEST AP from 05/14/2020 FINDINGS: MEDIASTINUM: Normal. HEART: Normal. PULMONARY VASCULATURE: Normal. LUNGS: Clear. PLEURAL SPACE: No pleural effusion or pneumothorax. BONE:Within normal limits for the patient's age. OTHER FINDINGS:Normal. IMPRESSION: No acute pulmonary findings. DATA REPOSITORY: RADIATION DOSE DELIVERED:
--- NOTE | 2021-12-04 18:37 | W.ED.GENAD ---
Discharge Plan Disposition Patient Disposition: HOME Condition: Stable Discharge Details Clinical Impression: Abscess or cellulitis of chest wall, Anemia Primary Care Provider: María Mendoza ED Provider: Shahnaz Fraire Home Meds and New Rx's Prescriptions: New cephalexin 500 mg tablet 500 mg PO BID 5 Days Qty: 10 0RF sulfamethoxazole-trimethoprim [Bactrim DS] 800-160 mg tablet 1 tab PO BID 5 Days Qty: 10 0RF Rx Instructions: Take with Food and full glass of water No Action pantoprazole 20 mg tablet,delayed release (DR/EC) 20 mg PO DAILY Qty: 90 3RF Rx Instructions: Take 20 mg daily once daily in the morning at least 30-60 minutes before first meal of the day hydrochlorothiazide 25 mg tablet 25 mg PO DAILY AM Qty: 90 3RF albuterol sulfate [ProAir HFA] 90 mcg/actuation HFA aerosol inhaler 1 - 2 puff Inhalation Q4H PRN Qty: 8.5 1RF clotrimazole-betamethasone 1-0.05 % cream 1 applic topical BID 10 Days Qty: 15 2RF cetirizine 10 mg tablet 10 mg PO DAILY PRN (Reason: allergy symptoms) Qty: 30 0RF Glucagon Emergency Kit (human) 1 mg recon soln 1 mg subcut ONCE Qty: 1 0RF Rx Instructions: 1 mg SQ ONCE; may repeat in 15 minutes as needed Trelegy Ellipta 100-62.5-25 mcg blister with device 1 inh inhalation DAILY Qty: 60 8RF (DME) pen needle, diabetic [Lite Touch Insulin Pen [place]] 31 gauge x 3/16 needle See Rx Instructions .ROUTE .MEDSUPPLY Qty: 400 3RF Rx Instructions: To administer Insulin 4 times a day. Dispense covered brand. For E11.9 to maintain A1C<7. Oxygen EACH NS At Night Qty: 2 0RF Label Comments: 2 L at night and CPAP- patient states she wore these 11/10/17 multivitamin [Daily Multi-Vitamin] 1 EACH tablet 1 ea PO DAILY 0RF Label Comments: patient states she took this roughly one week ago (DME) lancets [Sure Comfort Lancets] 1 EACH misc 1 ea Miscellaneous DAILY Qty: 1 3RF Rx Instructions: Dx: E11.9 to maintain HbA1C less than 7% acetaminophen 500 MG tablet 1,000 mg PO TID PRNQty: 90 0RF cyanocobalamin (vitamin B-12) 1,000 mcg tablet 1,000 mcg PO DAILY Qty: 90 3RF metformin 500 mg tablet 500 mg PO BID MDD 1000 mg Qty: 180 3RF Rx Instructions: DOSED FOR RENAL FUNCTION magnesium oxide 400 mg (241.3 mg magnesium) tablet See Rx Instructions PO .COMPLEX Qty: 270 3RF Rx Instructions: 800 mg AM & 400 mg PM PO Jardiance 25 mg tablet 25 mg PO DAILY AM Qty: 90 3RF Rx Instructions: Administer once daily in the morning, with or without food nitroglycerin 0.4 mg tablet, sublingual 0.4 mg sublingual Q5M PRN0RF Rx Instructions: do not exceed 3 doses per episode cetirizine 10 mg tablet 10 mg PO DAILY Qty: 90 3RF clopidogrel 75 mg tablet 75 mg PO DAILY Qty: 90 3RF rosuvastatin 40 mg tablet 40 mg PO DAILY Qty: 90 3RF albuterol sulfate 2.5 mg /3 mL (0.083 %) solution for nebulization 2.5 mg IH Q4H PRN (Reason: bronchospasm) Qty: 180 6RF Lantus Solostar U-100 Insulin 100 unit/mL (3 mL) insulin pen See Rx Instructions subcut BID Qty: 13 3RF Rx Instructions: 20 units AM and 21 units PM subcut twice a day; insulin lispro [Humalog KwikPen Insulin] 100 unit/mL insulin pen 4 - 6 unit subcut TID PRN (Reason: high blood sugar) Qty: 6 3RF Label Comments: INJECT 4 UNITS UNDER THE SKIN BEFORE MEALS DIRECTED (DME) FreeStyle Basia 2 [place] Misc See Rx Instructions .ROUTE .MEDSUPPLY Qty: 1 0RF Rx Instructions: As directed (DME) FreeStyle Basia 2 Sensor Kit See Rx Instructions .ROUTE .MEDSUPPLY Qty: 6 3RF Rx Instructions: As directed metoprolol succinate 50 mg tablet extended release 24 hr 50 mg PO DAILY Qty: 90 3RF valsartan 80 mg tablet 80 mg PO DAILY Qty: 90 3RF ferrous sulfate 325 mg (65 mg iron) tablet 325 mg PO TID Qty: 270 3RF (DME) Blood Glucose Test Strip See Rx Instructions .ROUTE .MEDSUPPLY Qty: 400 3RF Rx Instructions: As directed to check blood glucose four times daily. On insulin. Dispense covered brand. Prolia 60 mg/mL syringe 60 mg subcut [id number] 0RF letrozole 2.5 mg tablet 2.5 mg PO DAILY PRN0RF Rx Instructions: 09/22/21 Hem/Onc prescribes. calcium carbonate-vitamin D3 600 mg-20 mcg (800 unit) tablet 2 tab PO DAILY Qty: 180 3RF Rx Instructions: Take 2 pills daily triamcinolone acetonide 0.1 % ointment 1 applic topical BID 0RF Rx Instructions: 10/10/21 Derm montelukast [Singulair] 10 mg tablet 10 mg PO DAILY Qty: 90 3RF loperamide [Imodium A-D] 2 mg capsule 2 mg PO Q6H PRN0RF Label Comments: 11/06/21 aspirin [Aspir-81] 81 MG tablet,delayed release (DR/EC) 81 mg PO DAILY Qty: 90 3RF Discharge Instructions Instructions: Cellulitis (ED), Anemia (ED) Additional Instructions: I did speak with Dr. Leonid Pretty [facility] regarding your symptoms he does recommend follow-up within the next week. Either care management or their office should call you for an appointment if you do not hear from them please call and make an appointment. Please take the 2 antibiotic as directed. 5 more days of the cephalexin and 5 days of Bactrim. You are also more anemic on your lab work please discuss this with your PCP or cancer doctors. Follow up with primary care provider in 3-5 days. Return to ED sooner if any worsening or concerns. Increase oral fluids. Referrals: María Mendoza NP [Primary Care Provider] - 3 days Nii Webster [ [facility] STAFF PHYSICIAN] - 1 week Discharge Data Discharge Date/Time-TO BE ENTERED AT DEPARTURE: 12/04/21 22:30 Medical Decision Making 71-year-old female presents to the ER with chief complaint of continued erythema to the incision area on her left breast. She also endorses shortness of breath today and mildly productive cough with yellow-white sputum which began yesterday. She also reports that she was having increased activity today. She has been on cephalexin 500 mg 4 times a day for the last 5 days. She finished the antibiotic yesterday. She is vaccinated for COVID.?Alert. She is recently postop of a partial mastectomy on October [address] Conrad at [facility] cancer center. Past medical history includes breast cancer, chronic anemia, type 2 diabetes mellitus, COPD, NSTEMI, ASCVD chronic kidney disease, osteopenia, iron deficiency anemia, hypertension, degenerative joint disease. She is normally on 2 L of oxygen On initial exam she does have a small area approximately 5 cm in length by 3 cm in width of erythema and swelling. She does report some induration noted to her left breast, no erythema noted to that area. She is afebrile alert and oriented speaking in full sentences upon initial exam. Cardiac work-up ordered including serial troponins, chest x-ray, EKG, Covid. Differential diagnosis includes postop abscess, cellulitis, COPD exacerbation, coronary artery disease, [place]., Covid. CBC shows white blood cell count 3.58, RBC 3.85, hemoglobin 8.9, hematocrit 29.0, absolute lymphs besides 0.91, absolute neutrophils 2.13. BUN 33, creatinine 1.3, GFR 40.6, magnesium 2.6, AST 14 Covid is negative Imaging protocol: XR of the chest. Views: 1 view. COMPARISON: CR XR CHEST 2V PA LATERAL 10/06/2021 11:55 AM FINDINGS: Lungs: No significant consolidation. Pleural spaces: No pleural effusion. No pneumothorax. Heart/Mediastinum: No cardiomegaly. Bones/joints: Unremarkable. IMPRESSION: No acute findings. Thank you for allowing us to participate in the care of your patient. Dictated and Authenticated by: Paulette Shrestha MD Ultrasound at bedside by [place] [facility] provider JONO to evaluate fluid. There is fluid collection does not appear typical for abscess approximately 2 [address] in depth[address] Will place patient on cephalexin, pending repeat troponin and will consult with her surgeon at [facility]. 2133: [facility] called to consult with Surgery, repeat troponin within normal limits. Spoke with Dr. Webster regarding patient case and details who recommends longer course of antibiotics and re-evaluation in 1 week. He will have [place] marshal call patient. Home care and strict return instructions discussed with patient. I will give her 5 more days of cephalexin and 5 days of Bactrim. HPI General Mode of arrival: ambulatory. Date/Time Provider Initiated Documentation: 12/04/21 17:59. Limitations to Documentation: no limitations. Information obtained by: patient, RN/MD ([facility] RN called prior to arrival), RN notes reviewed and old records reviewed. HPI Narrative: 71-year-old female presents to the ER with chief complaint of continued erythema to the incision area on her left breast. She also endorses shortness of breath today and mildly productive cough with yellow-white sputum which began yesterday. She also reports that she was having increased activity today. She has been on cephalexin 500 mg 4 times a day for the last 5 days. She finished the antibiotic yesterday. She is vaccinated for COVID.?Alert. She is recently postop of a partial mastectomy on October [address] Conrad at [facility] cancer center. Past medical history includes breast cancer, chronic anemia, type 2 diabetes mellitus, COPD, NSTEMI, ASCVD chronic kidney disease, osteopenia, iron deficiency anemia, hypertension, degenerative joint disease. She is normally on 2 L of oxygen On initial exam she does have a small area approximately 5 cm in length by 3 cm in width of erythema and swelling. She does report some induration noted to her left breast, no erythema noted to that area. She is afebrile alert and oriented speaking in full sentences upon initial exam. Related Data Home Medications Medication Instructions Recorded Confirmed aspirin 81 mg tablet,delayed 81 mg PO DAILY #90 03/30/13 11/19/21 release (Aspir-) multivitamin (Daily Multi-Vitamin) 1 ea PO DAILY 03/19/17 11/19/21 lancets 28 gauge (Sure Comfort #1 box 06/24/17 11/19/21 Lancets) acetaminophen 500 mg tablet 1,000 mg PO TID PRN #90 tab-cap 12/16/17 11/19/21 cyanocobalamin (vitamin B-12) 1,000 mcg PO DAILY #90 tab-cap 05/07/18 11/19/21 1,000 mcg tablet metformin 500 mg tablet 500 mg PO BID #180 tab MDD 1000 mg 09/23/20 11/19/21 glucagon (human recombinant) 1 mg 1 mg SUBCUT ONCE #1 ea 11/11/20 11/19/21 solution for injection (Glucagon Emergency Kit) magnesium oxide 400 mg (241.3 mg See Rx Instructions PO .COMPLEX 11/16/20 11/19/21 magnesium) tablet #270 tab-cap empagliflozin 25 mg tablet 25 mg PO DAILY AM #90 tab-cap 01/02/21 11/19/21 (Jardiance) nitroglycerin 0.4 mg sublingual 0.4 mg SUBLINGUAL Q5M PRN 02/01/21 11/19/21 tablet hydrochlorothiazide 25 mg tablet 25 mg PO DAILY AM #90 tab-cap 02/16/21 11/19/21 pantoprazole 20 mg tablet,delayed 20 mg PO DAILY #90 tab-cap 02/16/21 11/19/21 release cetirizine 10 mg tablet 10 mg PO DAILY #90 tab 03/01/21 11/19/21 albuterol sulfate 90 mcg/actuation 1 - 2 puff INHALATION Q4H PRN #8.5 04/10/21 11/19/21 aerosol inhaler (ProAir HFA) g fluticasone fur. 100 mcg-umeclid 1 inh INHALATION DAILY #60 ea 04/12/21 11/19/21 62.5 mcg-vilant 25 mcg inhalat.powder (Trelegy Ellipta) clopidogrel 75 mg tablet 75 mg PO DAILY #90 tab 04/26/21 11/19/21 rosuvastatin 40 mg tablet 40 mg PO DAILY #90 tab 04/26/21 11/19/21 albuterol sulfate 2.5 mg (3 mL) IH Q4H PRN #180 ml 05/03/21 11/19/21 insulin glargine 100 unit/mL (3 See Rx Instructions SUBCUT BID #13 05/03/21 11/19/21 mL) subcutaneous pen (Lantus syrg Solostar U-100 Insulin) flash glucose scanning reader #1 ea 05/04/21 11/19/21 (FreeStyle Basia 2 [place]) flash glucose sensor (FreeStyle #6 ea 05/04/21 11/19/21 Basia 2 Sensor) insulin lispro 100 unit/mL 4 - 6 unit (0.04 - 0.06 mL) SUBCUT 05/04/21 11/19/21 subcutaneous pen (Humalog KwikPen TID PRN #6 syrg (U-100) Insulin) metoprolol succinate 50 mg 50 mg PO DAILY #90 tab 05/31/21 11/19/21 tablet,extended release 24 hr valsartan 80 mg tablet 80 mg PO DAILY #90 tab 05/31/21 11/19/21 clotrimazole-betamethasone 1 1 applic TOPICAL BID 10 Days #15 g 06/05/21 11/19/21 %-0.05 % topical cream ferrous sulfate 325 mg (65 mg 325 mg PO TID #270 tab 07/31/21 11/19/21 iron) tablet blood sugar diagnostic (Blood #400 ea 09/07/21 11/19/21 Glucose Test) cetirizine 10 mg tablet 10 mg PO DAILY PRN #30 tab 09/11/21 11/19/21 denosumab 60 mg/mL subcutaneous 60 mg SUBCUT [id number] 09/25/21 11/19/21 syringe (Prolia) letrozole 2.5 mg tablet 2.5 mg PO DAILY PRN 09/25/21 11/19/21 calcium carbonate 600 mg-vitamin 2 tab PO DAILY #180 tab-cap 10/09/21 11/19/21 D3 20 mcg (800 unit) tablet triamcinolone acetonide 0.1 % 1 applic TOPICAL BID 10/10/21 11/19/21 topical ointment pen needle, diabetic 31 gauge x #400 ea 10/19/21 11/19/2111/15 (Lite Touch Insulin Pen [place]) montelukast 10 mg tablet 10 mg PO DAILY #90 tab-cap 11/15/21 11/19/21 (Singulair) loperamide 2 mg capsule (Imodium 2 mg PO Q6H PRN 11/27/21 A-D) cephalexin 500 mg tablet 500 mg PO BID 5 Days #10 tab 12/04/21 sulfamethoxazole 800 1 tab PO BID 5 Days #10 tab 12/04/21 mg-trimethoprim 160 mg tablet (Bactrim DS) Previous Rx's Medication Instructions Recorded lancets 28 gauge (Sure Comfort #1 box 06/24/17 Lancets) cyanocobalamin (vitamin B-12) 1,000 mcg PO DAILY #90 tab-cap 05/07/18 1,000 mcg tablet metformin 500 mg tablet 500 mg PO BID #180 tab MDD 1000 mg 09/23/20 glucagon (human recombinant) 1 mg 1 mg SUBCUT ONCE #1 ea 11/11/20 solution for injection (Glucagon Emergency Kit) magnesium oxide 400 mg (241.3 mg See Rx Instructions PO .COMPLEX 11/16/20 magnesium) tablet #270 tab-cap empagliflozin 25 mg tablet 25 mg PO DAILY AM #90 tab-cap 01/02/21 (Jardiance) hydrochlorothiazide 25 mg tablet 25 mg PO DAILY AM #90 tab-cap 02/16/21 pantoprazole 20 mg tablet,delayed 20 mg PO DAILY #90 tab-cap 02/16/21 release cetirizine 10 mg tablet 10 mg PO DAILY #90 tab 03/01/21 albuterol sulfate 90 mcg/actuation 1 - 2 puff INHALATION Q4H PRN #8.5 04/10/21 aerosol inhaler (ProAir HFA) g fluticasone fur. 100 mcg-umeclid 1 inh INHALATION DAILY #60 ea 04/12/21 62.5 mcg-vilant 25 mcg inhalat.powder (Trelegy Ellipta) clopidogrel 75 mg tablet 75 mg PO DAILY #90 tab 04/26/21 rosuvastatin 40 mg tablet 40 mg PO DAILY #90 tab 04/26/21 albuterol sulfate 2.5 mg (3 mL) IH Q4H PRN #180 ml 05/03/21 insulin glargine 100 unit/mL (3 See Rx Instructions SUBCUT BID #13 05/03/21 mL) subcutaneous pen (Lantus syrg Solostar U-100 Insulin) flash glucose scanning reader #1 ea 05/04/21 (FreeStyle Basia 2 [place]) flash glucose sensor (FreeStyle #6 ea 05/04/21 Basia 2 Sensor) insulin lispro 100 unit/mL 4 - 6 unit (0.04 - 0.06 mL) SUBCUT 05/04/21 subcutaneous pen (Humalog KwikPen TID PRN #6 syrg (U-100) Insulin) metoprolol succinate 50 mg 50 mg PO DAILY #90 tab 05/31/21 tablet,extended release 24 hr valsartan 80 mg tablet 80 mg PO DAILY #90 tab 05/31/21 clotrimazole-betamethasone 1 1 applic TOPICAL BID 10 Days #15 g 06/05/21 %-0.05 % topical cream ferrous sulfate 325 mg (65 mg 325 mg PO TID #270 tab 07/31/21 iron) tablet blood sugar diagnostic (Blood #400 ea 09/07/21 Glucose Test) cetirizine 10 mg tablet 10 mg PO DAILY PRN #30 tab 09/11/21 calcium carbonate 600 mg-vitamin 2 tab PO DAILY #180 tab-cap 10/09/21 D3 20 mcg (800 unit) tablet pen needle, diabetic 31 gauge x #400 ea 10/19/2111/15 (Lite Touch Insulin Pen [place]) montelukast 10 mg tablet 10 mg PO DAILY #90 tab-cap 11/15/21 (Singulair) cephalexin 500 mg tablet 500 mg PO BID 5 Days #10 tab 12/04/21 sulfamethoxazole 800 1 tab PO BID 5 Days #10 tab 12/04/21 mg-trimethoprim 160 mg tablet (Bactrim DS) Allergies Allergy/AdvReac Type Severity Reaction Status Date / Time propylene glycol Allergy Severe Rash Verified 11/19/21 14:59 petrolatum,white Allergy Intermediate rash Verified 11/19/21 14:59 [From Petroleum Jelly] adhesive tape Allergy Unknown Skin Rash Verified 11/19/21 14:59 alendronate sodium Allergy Unknown Hives Verified 11/19/21 14:59 azithromycin AdvReac Intermediate dry heaves Verified 11/19/21 14:59 and diarrhea hydrocodone bitartrate AdvReac Intermediate Nausea Verified 11/19/21 14:59 [From Vicodin] liraglutide [From Victoza] AdvReac Intermediate diarhhea Verified 11/19/21 14:59 paraben AdvReac Intermediate Skin Rash Verified 11/19/21 14:59 quaternium 15 AdvReac Intermediate generalized Verified 11/19/21 14:59 rash roflumilast AdvReac Intermediate Diarrhea Verified 11/19/21 14:59 LANDON Inhibitors AdvReac Unknown COUGH,DYSPN Verified 11/19/21 14:59 EA oxycodone HCl [From Percocet] AdvReac Unknown NAUSEA/VOMI Verified 11/19/21 14:59 TING fragranced creams Allergy Intermediate Skin Rash Uncoded 11/19/21 14:59 parabin wax Allergy Intermediate Skin Rash Uncoded 11/19/21 14:59 diogolidinyl AdvReac Severe Skin Rash Uncoded 11/19/21 14:59 bisphenal AdvReac Intermediate Skin Rash Uncoded 11/19/21 14:59 General Stated Complaint: GenMedical BRUNA: 3 Review of Systems All systems reviewed & are unremarkable except as noted in HPI and below Cardiovascular Cardiovascular: Reports dyspnea Respiratory Respiratory: Reports dyspnea Integumentary/Breasts Skin/Breast: Reports as per HPI, Reports breast swelling, Reports breast pain and Reports change in pigmentation (Erythema) PFSH All Active Problems (Updated 12/04/21 @ 22:18 by Shahnaz Fraire) Abscess or cellulitis of chest wall (Acute) Anemia (Chronic) Malignant neoplasm of unspecified site of left female breast (Acute ~10/2021) 11/06/21 Dr Mcgill ([facility] Rad/Onc Office); Radiation Therapy planned Acute anterior epistaxis (Acute) Chronic anemia (Acute) Pneumonia (Acute) Renal artery stenosis, morongo, bilateral (Chronic) [facility] Vascular Surgery; most recent OV 06/01/21 Atherosclerosis of both carotid arteries (Chronic 11/12/16) [facility] Vascular Surgery; most recent OV 06/01/21; Recommend annual carotid US Breast cancer in female (Chronic) R 2002, L 2003 s/p B/L partial mastectomy, XRT, & tamoxifen. 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 Cruz) ASCVD (arteriosclerotic cardiovascular disease) (Chronic) [facility] 06/01/21 Vascular note: Asymptomatic bilateral carotid artery stenosis Non-ST elevation (NSTEMI) myocardial infarction (Acute ~12/2020) S/p proximal LCX stent placement 01/27/21 [facility] Allergic rhinitis (Chronic) Vaginitis and vulvovaginitis, unspecified (Acute) CKD (chronic kidney disease) (Chronic) Microalbuminuria due to type 2 diabetes mellitus (Chronic) Spinal stenosis (Chronic 02/04/14) Multi level on MRI Obstructive sleep apnea (Chronic 03/02/14) Bipap w/ 2L 02 09/06/2019 Reflux esophagitis (Chronic 07/16/12) LA GRADE B , EGD W/ BX 05/04/15 Osteopenia (Chronic 02/14/16) DEXA 02/14/16: Fem neck t-score -1.2 --> WHO FRAX major osteoporotic 13% & hip fx 1.3% risk --> does not qualify for bisphosphonates --> Ca & vit D 03/2017 L3 compression fx --> re-calc WHO FRAX major osteoporotic 21% & hip fx 2.3% risk --> now qualifies for bisphosphonate tx, started 03/2017 Probable allergic rxn to Alendronate (1st pill Wed, Hives Th and stayed thru today (but no worsening), 07/05. Agree to STOP for now. Intraabdominal calcification (Chronic 11/14/15) Incidental finding on CT 2 mm between bladder and uterus, no further eval required, AOC Hyperlipidemia (Chronic 03/18/07) Essential hypertension (Chronic 05/16/04) DJD (degenerative joint disease) (Chronic 02/04/14) Lumbar spine--multiple level on MRI Surgery 10/2011, [facility] Dr. Smith Medical History Anemia (02/11/14) Suspect chronic dz/bone marrow suppression s/p breast CA tx (radiation); s/p GI workup (possible AVMs?), NL B12/folate, elevated Epo, NL retic count; chronic iron supplementation Chronic GI bleeding Compression fracture of lumbar vertebra (03/14/17) Depression (11/30/02) s/p of brother (on SSRI for short time) Headache Heart murmur 07/11/2016 echo: mild-moderate mitral regurgitation Hiatal hernia (02/11/14) Smaller portions Endoscopy 10/04 anemia (nothing found), [facility] Hypomagnesemia (03/04/17) Leg cramps (04/01/14) Low Mg+ --> supplementation helped, but caused diarrhea; handout on dietary Mg+ given Pericarditis (~12/2020) S/p KS Solitary pulmonary nodule (12/22/15) Incidental finding of 6 mm pulm nodule RLL on 11/07/[address] with 6 month f/u chest CT recommended; 04/2016 6-month f/u chest CT: resolution of nodule 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 Dr Agee H/O laminectomy L5S1 H/O laminectomy (~10/06/12) L5S1 Dr. Jarrod Ballard H/O partial mastectomy (~10/26/21) Left breast History of hysterectomy, supracervical Oophrectomy, Right (~2007) For unknown reason S/P breast biopsy, left (05/09/21) u/s guided Core Bx Status post coronary artery stent placement (~01/27/21) Tooth Extractions Multiple Family History Sister Breast cancer Mother , 89 Alzheimer's dementia Breast cancer Father , AGE 75 Alcohol abuse Cirrhosis Sister Neoplasm uterine CA Sister Heart disease Brother Heart disease Niece Breast cancer Social History Smoking/Tobacco Use Status: Former Tobacco Use tobacco type: cigarettes Quit Date: 09/02/95 Tobacco: How many years used: 25 Smoking risk assessment performed?: Yes Alcohol Intake: former Details: none Drug use: Never Substance use type: does not use Adopted: No Caregiver/Support person: No Foster care: No Household members: spouse Number of Children: 4 Communication Needs: None Pets and animals: No Current gender identity: female What type of physical activity do you participate in: regular exercise Duration: < 15 minutes/day Frequency: 3-4 times per week Mell/Mu-Ism: Mu-Ism Seatbelt use: always Drive intox or ride w/intox lyft driver: No Working smoke detector in home: Yes Fire extinguisher in home: Yes Carbon monox detector in home: Yes Do you feel safe at home: Yes Do you feel safe in your relationship?: Yes Additional Social history: Lives with in [place]. 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 She has 11 grandkids who all live close. History History Para Hx # Term Pregnancies Multiple births Hx # Pregnancies Ectopic pregnancies AB induced Hx Number of Living Children 4 AB spontaneous Exam Narrative Exam Narrative: Constitutional: Alert and oriented x3. Appears stated age. Normal body habitus. Head: Normocephalic, no trauma. Eyes: Pupils PERRL, Red reflex noted, EOM's intact. Eyelids symmetrical without lesions, discharge, or swelling. Chest: RRR, Normal S1, S2, distal pulses intact. Resp: Lungs clear to auscultation bilaterally, no wheezes, rales, or rhonchi. Abdomen: Soft, non-distended, Normoactive bowel sounds all 4 quads. Musculoskeletal: Normal gait, 5/5 strength to all four extremities. Skin: Capillary refill less than 2 sec. see chest exam below Neurologic: Cranial nerves II-XII intact. Alert and oriented x 3. Motor: No deficits noted. Sensory: Intact bilaterally all 4 extremities. Reflexes: DTR's intact bilaterally.. Hematologic/Lymphatic: No ecchymosis, no lymphadenopathy. Chest Chest: abnormal inspection of the chest erythema and other (Healed surgical scar noted to left breast area of erythema noted to left axillary region) and tenderness Breast inspection: abnormal inspection of the breast Breast palpation: abnormal palpation of the axilla Chest/axillae images: 1. Approximately 3 cm x 5 cm area of erythema and tenderness 2. Some warmth and induration Course Vital Signs Vital signs: Vital Signs Temperature 36.7 C 12/04/21 18:36 Pulse 68 12/04/21 18:36 Respiratory Rate 19 12/04/21 18:36 Blood Pressure 129/46 L 12/04/21 18:36 Pulse Oximetry 98 12/04/21 18:36 Temperature 36.7 C 12/04/21 18:36 Temperature Source Temporal Artery Scan 12/04/21 18:36 Pulse 68 12/04/21 18:36 Respiratory Rate 19 12/04/21 18:36 Blood Pressure 129/46 L 12/04/21 18:36 Pulse Oximetry 98 12/04/21 18:36 Oxygen Delivery Method Room Air 12/04/21 18:36 Oxygen Flow Rate 0 12/04/21 18:36 Pain Level 0 12/04/21 18:36
[2021-12-04 18:54] LABS: Abs Immature Grans 0.06 10^3/uL (0.0-0.06); Absolute Basophil Count 0.02 10^3/uL (0.0-0.2); Absolute Eosinophil Count 0.07 10^3/uL (0.0-0.7); Absolute Lymphocyte Count 0.91 10^3/uL (1.2-3.4); Absolute Monocyte Count 0.39 10^3/uL (0.1-0.8); Absolute Neutrophil Count 2.13 10^3/uL (1.2-6.7); Basophils % 0.6; HGB 8.9 g/dL (11.2-15.7); Immature Grans % 1.7; Lymphocytes % 25.4; MCH 31.3 pg (27.0-33.0); MCHC 30.7 % (32.0-36.0); MCV 102.1 fL (80-95); MPV 8.7 fL (8.0-11.0); Monocytes % 10.9; Neutrophils % 59.4; Nucleated RBC 0 %; Platelet Count 267 10^3/uL (130-400); RBC 2.84 10^6/uL (3.93-5.22); RDW 14.8 % (11.7-14.6); RDW-SD 55.2 fL; WBC 3.58 10^3/uL (4.4-10.8)
[2021-12-04 18:55] LABS: Source Nasal/Nares
[2021-12-04 19:09] LABS: ALT 22 U/L (14-59); AST 14 U/L (15-37); Albumin 3.7 g/dL (3.4-5.0); Alkaline Phosphatase 52 U/L (46-116); BUN 33 mg/dL (7-18); Bilirubin, Total 0.2 mg/dL (0.2-1.0); CREATININE 1.3 mg/dL (0.55-1.02); Calcium 8.8 mg/dL (8.5-10.1); Chloride 102 mmol/L (98-107); Estimated GFR 40.26 (mL/min/1.73m2); Glucose 107 mg/dL (74-106); Magnesium 2.6 mg/dL (1.8-2.4); Potassium 3.8 mmol/L (3.5-5.1); Sodium 140 mmol/L (136-145); Total Protein 7.5 g/dL (6.4-8.2); Troponin I < 50 ng/L (<or=60)
[2021-12-04 19:10] LABS: PTT Activated 21.6 sec (21.0-27.5)
--- NOTE | 2021-12-04 19:51 | DI.VRAD_ITS ---
PROCEDURE INFORMATION: Exam: XR Chest Exam date and time: 12/04/2021 6:56 PM Age: 71 years old Clinical indication: Other: SOB; Patient HX: Shortness of breath, cp, known breast cancer TECHNIQUE: Imaging protocol: XR of the chest. Views: 1 view. COMPARISON: CR XR CHEST 2V PA LATERAL 10/06/2021 11:55 AM FINDINGS: Lungs: No significant consolidation. Pleural spaces: No pleural effusion. No pneumothorax. Heart/Mediastinum: No cardiomegaly. Bones/joints: Unremarkable. IMPRESSION: No acute findings. Dictated and Authenticated by: Paulette Graham MD. Ordering:SARAH Christie MD
[2021-12-04 19:57] LABS: COVID-19 PCR Negative (Negative)
[2021-12-04 21:28] LABS: Troponin I < 50 ng/L (<or=60)
[2021-12-04] MEDS: Cephalexin 500 MG CAP PO (21:31)
== END 2021-12-04 22:30 | disposition home or self-care (01) ==
PROVIDERS: Emergency Provider Registered Nurse Emergency; PCP Nurse Practitioner Family
DX: T81.41XA Infection following a procedure, superficial incisional surgical site, initial encounter (principal); D64.9 Anemia, unspecified; R06.02 Shortness of breath; C50.912 Malignant neoplasm of unspecified site of left female breast
CPT/HCPCS: 36415; 80053; 87635; 93005; 99284; 71045; 83735; 84484; 85025; 85610; 85730; 93010

== ENCOUNTER 2022-01-03 01:32 | Outpatient (CLI) | payer MEDICARE, BC, SELFPAY ==
[2022-01-03 11:18] LABS: Abs Immature Grans 0.08 10^3/uL (0.0-0.06); Absolute Basophil Count 0.01 10^3/uL (0.0-0.2); Absolute Eosinophil Count 0.07 10^3/uL (0.0-0.7); Absolute Lymphocyte Count 0.58 10^3/uL (1.2-3.4); Absolute Monocyte Count 0.44 10^3/uL (0.1-0.8); Absolute Neutrophil Count 1.92 10^3/uL (1.2-6.7); Basophils % 0.3; Eosinophils % 2.3; HCT 31.8 % (36.0-46.0); HGB 9.6 g/dL (11.2-15.7); Immature Grans % 2.6; Lymphocytes % 18.7; MCH 31.8 pg (27.0-33.0); MCHC 30.2 % (32.0-36.0); MCV 105 fL (80-95); MPV 8.9 fL (8.0-11.0); Monocytes % 14.2; Neutrophils % 61.9; Platelet Count 230 10^3/uL (130-400); RBC 3.02 10^6/uL (3.93-5.22); RDW 16.1 % (11.7-14.6); RDW-SD 62.1 fL
[2022-01-03 11:31] LABS: ALT 27 U/L (14-59); AST 20 U/L (15-37); Albumin 3.7 g/dL (3.4-5.0); Alkaline Phosphatase 55 U/L (46-116); Anion Gap 6.6 mmol/L (3-11); BUN 23 mg/dL (7-18); Bilirubin, Total 0.2 mg/dL (0.2-1.0); CO2 33.4 mmol/L (21.0-32.0); CREATININE 1.2 mg/dL (0.55-1.02); Calcium 9.2 mg/dL (8.5-10.1); Chloride 98 mmol/L (98-107); Estimated GFR 44.16 (mL/min/1.73m2); Glucose 299 mg/dL (74-106); Potassium 4.2 mmol/L (3.5-5.1); Sodium 138 mmol/L (136-145); Total Protein 7.4 g/dL (6.4-8.2)
[2022-01-03 11:38] LABS: Diff Comment Diff Reviewed; Macrocytosis 2+; Poikilocytes 2+; Polychromasia Present
[2022-01-03 12:12] LABS: Iron 50 ug/dL (50-170); Total Iron Binding Capacity 422 ug/dL (250-450); Transferrin Sat 12 % (15-50)
[2022-01-03 12:25] LABS: Calculated LDL 8 mg/dL (<100); Cholesterol 158 mg/dL (<200); Ferritin 20 ng/mL (8-252); HDL Cholesterol 73 mg/dL (40-60); Triglyceride 385 mg/dL (<150)
[2022-01-04 01:52] LABS: Vitamin D 25 Total 58.4 ng/mL (30-100)
== END 2022-01-03 01:33 | disposition home or self-care (01) ==
LOC: LBO 01:32
PROVIDERS: Internal Medicine Hematology & Oncology; PCP Nurse Practitioner Family; Visit Provider Nurse Practitioner Family
DX: D64.9 Anemia, unspecified (principal); E78.5 Hyperlipidemia, unspecified; E55.9 Vitamin D deficiency, unspecified
CPT/HCPCS: 36415; 80053; 80061; 82306; 82728; 83540; 83550; 85025

== ENCOUNTER 2022-01-07 18:07 | Emergency (ER) | payer MEDICARE, BC, SELFPAY ==
[2022-01-07 18:11] VITALS: BP 180/58; PULSE 88; RESP 18; TEMP 36.1; O2SAT 92
--- NOTE | 2022-01-07 19:00 | DI.RAD_ITS ---
Exam(s) XR WRIST RT COMPLETE EXAM: XR WRIST RT COMPLETE CLINICAL HISTORY: sliver of wood R wrist, assess for foreign body. TECHNIQUE: 2D digital imaging was performed. Three views. COMPARISON: No exams were available for comparison FINDINGS: BONES: No acute fracture is present. No bony destructive lesion is seen. JOINTS: The carpal bones are normally aligned. Degenerative changes carpal region. SOFT TISSUE: Normal. No foreign body. IMPRESSION: Unremarkable radiographs of the right wrist. DATA REPOSITORY: RADIATION DOSE DELIVERED:
--- NOTE | 2022-01-07 19:17 | W.ED.GENAD ---
Discharge Plan Disposition Patient Disposition: HOME Condition: Stable Discharge Details Clinical Impression: Foreign body of wrist, Cellulitis of right wrist Primary Care Provider: María Mendoza ED Provider: Roxana Whittington Home Meds and New Rx's Prescriptions: New cephalexin 500 mg capsule 500 mg PO QID 7 Days Qty: 28 0RF Continued pantoprazole 20 mg tablet,delayed release (DR/EC) 20 mg PO DAILY Qty: 90 3RF Rx Instructions: Take 20 mg daily once daily in the morning at least 30-60 minutes before first meal of the day clotrimazole-betamethasone 1-0.05 % cream 1 applic topical BID 10 Days Qty: 15 2RF prednisone 20 mg tablet 40 mg PO DAILY Qty: 10 0RF Trelegy Ellipta 100-62.5-25 mcg blister with device 1 inh inhalation DAILY Qty: 60 8RF albuterol sulfate [ProAir HFA] 90 mcg/actuation HFA aerosol inhaler 1 - 2 puff Inhalation Q4H PRN Qty: 8.5 8RF albuterol sulfate 2.5 mg /3 mL (0.083 %) solution for nebulization 2.5 mg IH Q4H PRN (Reason: bronchospasm) Qty: 180 6RF montelukast [Singulair] 10 mg tablet 10 mg PO DAILY Qty: 90 3RF cetirizine 10 mg tablet 10 mg PO DAILY Qty: 90 3RF hydrochlorothiazide 25 mg tablet 25 mg PO DAILY AM Qty: 90 3RF Glucagon Emergency Kit (human) 1 mg recon soln 1 mg subcut ONCE Qty: 1 0RF Rx Instructions: 1 mg SQ ONCE; may repeat in 15 minutes as needed (DME) pen needle, diabetic [Lite Touch Insulin Pen [place]] 31 gauge x 3/16 needle See Rx Instructions .ROUTE .MEDSUPPLY Qty: 400 3RF Rx Instructions: To administer Insulin 4 times a day. Dispense covered brand. For E11.9 to maintain A1C<7. Oxygen EACH NS At Night Qty: 2 0RF Label Comments: 2 L at night and CPAP- patient states she wore these 11/10/17 multivitamin [Daily Multi-Vitamin] 1 EACH tablet 1 ea PO DAILY 0RF Label Comments: patient states she took this roughly one week ago (DME) lancets [Sure Comfort Lancets] 1 EACH misc 1 ea Miscellaneous DAILY Qty: 1 3RF Rx Instructions: Dx: E11.9 to maintain HbA1C less than 7% acetaminophen 500 MG tablet 1,000 mg PO TID PRNQty: 90 0RF cyanocobalamin (vitamin B-12) 1,000 mcg tablet 1,000 mcg PO DAILY Qty: 90 3RF Jardiance 25 mg tablet 25 mg PO DAILY AM Qty: 90 3RF Rx Instructions: Administer once daily in the morning, with or without food nitroglycerin 0.4 mg tablet, sublingual 0.4 mg sublingual Q5M PRN0RF Rx Instructions: do not exceed 3 doses per episode clopidogrel 75 mg tablet 75 mg PO DAILY Qty: 90 3RF rosuvastatin 40 mg tablet 40 mg PO DAILY Qty: 90 3RF Lantus Solostar U-100 Insulin 100 unit/mL (3 mL) insulin pen See Rx Instructions subcut BID Qty: 13 3RF Rx Instructions: 20 units AM and 21 units PM subcut twice a day; (DME) [place]Style [place] [address] [place] [facility] [place] Rx Instructions .ROUTE .MEDSUPPLY Qty: 1 0RF Rx Instructions: As directed (DME) FreeStyle Basia 2 Sensor Kit See Rx Instructions .ROUTE .MEDSUPPLY Qty: 6 3RF Rx Instructions: As directed metoprolol succinate 50 mg tablet extended release 24 hr 50 mg PO DAILY Qty: 90 3RF valsartan 80 mg tablet 80 mg PO DAILY Qty: 90 3RF ferrous sulfate 325 mg (65 mg iron) tablet 325 mg PO TID Qty: 270 3RF (DME) Blood Glucose Test Strip See Rx Instructions .ROUTE .MEDSUPPLY Qty: 400 3RF Rx Instructions: As directed to check blood glucose four times daily. On insulin. Dispense covered brand. Prolia 60 mg/mL syringe 60 mg subcut [id number] 0RF letrozole 2.5 mg tablet 2.5 mg PO DAILY PRN0RF Rx Instructions: 09/22/21 Hem/Onc prescribes. calcium carbonate-vitamin D3 600 mg-20 mcg (800 unit) tablet 2 tab PO DAILY Qty: 180 3RF Rx Instructions: Take 2 pills daily triamcinolone acetonide 0.1 % ointment 1 applic topical BID 0RF Rx Instructions: 10/10/21 Derm loperamide [Imodium A-D] 2 mg capsule 2 mg PO Q6H PRN0RF Label Comments: 11/06/21 magnesium oxide 400 mg (241.3 mg magnesium) tablet See Rx Instructions PO .COMPLEX Qty: 180 3RF Rx Instructions: 400 mg AM and PM as per María Mendoza metformin 500 mg tablet 500 mg PO BID MDD 1000 mg Qty: 180 3RF Rx Instructions: DOSED FOR RENAL FUNCTION insulin lispro [Humalog KwikPen Insulin] 100 unit/mL insulin pen 20 unit subcut TID PRN (Reason: high blood sugar) Qty: 6 0RF Label Comments: INJECT 4 UNITS UNDER THE SKIN BEFORE MEALS DIRECTED aspirin [Aspir-81] 81 MG tablet,delayed release (DR/EC) 81 mg PO DAILY Qty: 90 3RF Discharge Instructions Instructions: Soft Tissue Foreign Body (ED), Cellulitis (ED) Additional Instructions: Your x-ray was negative today for any evidence of a foreign body. It can be sometimes difficult to see wood under the skin so this does not mean that there is not a possible embedded foreign body within your wrist. Due to the delicate location of the possible foreign body which is near nerves and blood vessels, it is not recommended by general surgery to have exploration of this area to remove a possible foreign body. General surgery recommends warm soaks twice daily and treating with oral antibiotics. A prescription for antibiotics has been sent electronically to your pharmacy. Follow-up with general surgery this week for reevaluation. Return immediately to the emergency department if you develop any worsening or new concerning symptoms such as fever, increased pain, redness or swelling. Referrals: Leeann Irby MD [ [facility] STAFF PHYSICIAN] - Discharge Data Discharge Physician: Roxana Whittington Medical Decision Making 71-year-old female presents with concern for possible embedded wooden foreign body within the volar aspect of her left wrist sustained today when reaching into a cabinet. The volar aspect of her right wrist notes an area of 1 x 1 cm erythema, tenderness and edema with an abrasion on the distal aspect. Unclear if a foreign body is palpable but she is tender in this area. Patient referred for x-ray and no obvious acute findings noted. Case discussed and imaging obtained with patient's consent and reviewed with surgery who agrees due to neurovascular contents within this location, would not be safe for exploration in the emergency department or in the operating room. Recommend warm soaks and coverage with Keflex. Patient was given Keflex here, bottle to go in addition to a prescription sent electronically to her pharmacy. Patient placed on surgery follow-up list for reevaluation this week. Usual and customary return precautions given prior to discharge. Medical Records Medical records reviewed: Yes I reviewed the patient's medical records. Imaging Data Radiologic Study: Radiologist's impression: XR Right Wrist Exam date and time: 01/07/2022 19:11 Age: 71 years old Clinical indication: Pain; Right; Patient HX: Sliver of wood R wrist, assess for foreign body TECHNIQUE: Imaging protocol: XR Right wrist. Views: 3 or more views. COMPARISON: No relevant prior studies available. FINDINGS: Bones/joints: Degenerative changes are most pronounced in the radial aspect of the wrist. No acute fracture or subluxation. Soft tissues: No radiopaque foreign body is seen. IMPRESSION: No radiopaque foreign body is seen. HPI General Mode of arrival: ambulatory. Date/Time Provider Initiated Documentation: 01/07/22 18:09. Limitations to Documentation: no limitations. Information obtained by: patient. HPI Narrative: Patient is a 71-year-old female who presents with concern for foreign body within her right wrist sustained earlier today while reaching in a cabinet. She states she feels there is a sliver of wood within the volar aspect of her right wrist. Tetanus up-to-date 2018. Related Data Home Medications Medication Instructions Recorded Confirmed aspirin 81 mg tablet,delayed 81 mg PO DAILY #90 03/30/13 12/15/21 release (Aspir-) multivitamin (Daily Multi-Vitamin) 1 ea PO DAILY 03/19/17 01/07/22 lancets 28 gauge (Sure Comfort #1 box 06/24/17 12/15/21 Lancets) acetaminophen 500 mg tablet 1,000 mg PO TID PRN #90 tab-cap 12/16/17 01/07/22 cyanocobalamin (vitamin B-12) 1,000 mcg PO DAILY #90 tab-cap 05/07/18 01/07/22 1,000 mcg tablet glucagon (human recombinant) 1 mg 1 mg SUBCUT ONCE #1 ea 11/11/20 01/07/22 solution for injection (Glucagon Emergency Kit) empagliflozin 25 mg tablet 25 mg PO DAILY AM #90 tab-cap 01/02/21 01/07/22 (Jardiance) nitroglycerin 0.4 mg sublingual 0.4 mg SUBLINGUAL Q5M PRN 02/01/21 01/07/22 tablet pantoprazole 20 mg tablet,delayed 20 mg PO DAILY #90 tab-cap 02/16/21 01/07/22 release clopidogrel 75 mg tablet 75 mg PO DAILY #90 tab 04/26/21 01/07/22 rosuvastatin 40 mg tablet 40 mg PO DAILY #90 tab 04/26/21 01/07/22 insulin glargine 100 unit/mL (3 See Rx Instructions SUBCUT BID #13 05/03/21 01/07/22 mL) subcutaneous pen (Lantus syrg Solostar U-100 Insulin) flash glucose scanning reader #1 ea 05/04/21 12/15/21 (FreeStyle Basia 2 [place]) flash glucose sensor (FreeStyle #6 ea 05/04/21 12/15/21 Basia 2 Sensor) metoprolol succinate 50 mg 50 mg PO DAILY #90 tab 05/31/21 01/07/22 tablet,extended release 24 hr valsartan 80 mg tablet 80 mg PO DAILY #90 tab 05/31/21 01/07/22 clotrimazole-betamethasone 1 1 applic TOPICAL BID 10 Days #15 g 06/05/21 01/07/22 %-0.05 % topical cream ferrous sulfate 325 mg (65 mg 325 mg PO TID #270 tab 07/31/21 01/07/22 iron) tablet blood sugar diagnostic (Blood #400 ea 09/07/21 12/15/21 Glucose Test) denosumab 60 mg/mL subcutaneous 60 mg SUBCUT [id number] 09/25/21 01/07/22 syringe (Prolia) letrozole 2.5 mg tablet 2.5 mg PO DAILY PRN 09/25/21 01/07/22 calcium carbonate 600 mg-vitamin 2 tab PO DAILY #180 tab-cap 10/09/21 01/07/22 D3 20 mcg (800 unit) tablet triamcinolone acetonide 0.1 % 1 applic TOPICAL BID 10/10/21 01/07/22 topical ointment pen needle, diabetic 31 gauge x #400 ea 10/19/21 12/15/21/16 (Lite Touch Insulin Pen [place]) loperamide 2 mg capsule (Imodium 2 mg PO Q6H PRN 11/27/21 01/07/22 A-D) albuterol sulfate 2.5 mg (3 mL) IH Q4H PRN #180 ml 12/06/21 01/07/22 albuterol sulfate 90 mcg/actuation 1 - 2 puff INHALATION Q4H PRN #8.5 12/06/21 01/07/22 aerosol inhaler (ProAir HFA) g fluticasone fur. 100 mcg-umeclid 1 inh INHALATION DAILY #60 ea 12/06/21 01/07/22 62.5 mcg-vilant 25 mcg inhalat.powder (Trelegy Ellipta) montelukast 10 mg tablet 10 mg PO DAILY #90 tab-cap 12/06/21 01/07/22 (Singulair) prednisone 20 mg tablet 40 mg PO DAILY #10 tab 12/06/21 01/07/22 cetirizine 10 mg tablet 10 mg PO DAILY #90 tab 12/14/21 01/07/22 hydrochlorothiazide 25 mg tablet 25 mg PO DAILY AM #90 tab-cap 12/14/21 01/07/22 magnesium oxide 400 mg (241.3 mg See Rx Instructions PO .COMPLEX 12/15/21 01/07/22 magnesium) tablet #180 tab-cap metformin 500 mg tablet 500 mg PO BID #180 tab MDD 1000 mg 12/27/21 01/07/22 insulin lispro 100 unit/mL 20 unit (0.2 mL) SUBCUT TID PRN #6 01/01/22 01/07/22 subcutaneous pen (Humalog KwikPen syrg (U-100) Insulin) cephalexin 500 mg capsule 500 mg PO QID 7 Days #28 cap 01/07/22 Previous Rx's Medication Instructions Recorded lancets 28 gauge (Sure Comfort #1 box 06/24/17 Lancets) cyanocobalamin (vitamin B-12) 1,000 mcg PO DAILY #90 tab-cap 05/07/18 1,000 mcg tablet glucagon (human recombinant) 1 mg 1 mg SUBCUT ONCE #1 ea 11/11/20 solution for injection (Glucagon Emergency Kit) empagliflozin 25 mg tablet 25 mg PO DAILY AM #90 tab-cap 01/02/21 (Jardiance) pantoprazole 20 mg tablet,delayed 20 mg PO DAILY #90 tab-cap 02/16/21 release clopidogrel 75 mg tablet 75 mg PO DAILY #90 tab 04/26/21 rosuvastatin 40 mg tablet 40 mg PO DAILY #90 tab 04/26/21 insulin glargine 100 unit/mL (3 See Rx Instructions SUBCUT BID #13 05/03/21 mL) subcutaneous pen (Lantus syrg Solostar U-100 Insulin) flash glucose scanning reader #1 ea 05/04/21 (FreeStyle Basia 2 [place]) flash glucose sensor (FreeStyle #6 ea 05/04/21 Basia 2 Sensor) metoprolol succinate 50 mg 50 mg PO DAILY #90 tab 05/31/21 tablet,extended release 24 hr valsartan 80 mg tablet 80 mg PO DAILY #90 tab 05/31/21 clotrimazole-betamethasone 1 1 applic TOPICAL BID 10 Days #15 g 06/05/21 %-0.05 % topical cream ferrous sulfate 325 mg (65 mg 325 mg PO TID #270 tab 07/31/21 iron) tablet blood sugar diagnostic (Blood #400 ea 09/07/21 Glucose Test) calcium carbonate 600 mg-vitamin 2 tab PO DAILY #180 tab-cap 10/09/21 D3 20 mcg (800 unit) tablet pen needle, diabetic 31 gauge x #400 ea 10/19/2111/15 (Lite Touch Insulin Pen [place]) albuterol sulfate 2.5 mg (3 mL) IH Q4H PRN #180 ml 12/06/21 albuterol sulfate 90 mcg/actuation 1 - 2 puff INHALATION Q4H PRN #8.5 12/06/21 aerosol inhaler (ProAir HFA) g fluticasone fur. 100 mcg-umeclid 1 inh INHALATION DAILY #60 ea 12/06/21 62.5 mcg-vilant 25 mcg inhalat.powder (Trelegy Ellipta) montelukast 10 mg tablet 10 mg PO DAILY #90 tab-cap 12/06/21 (Singulair) prednisone 20 mg tablet 40 mg PO DAILY #10 tab 12/06/21 cetirizine 10 mg tablet 10 mg PO DAILY #90 tab 12/14/21 hydrochlorothiazide 25 mg tablet 25 mg PO DAILY AM #90 tab-cap 12/14/21 magnesium oxide 400 mg (241.3 mg See Rx Instructions PO .COMPLEX 12/15/21 magnesium) tablet #180 tab-cap metformin 500 mg tablet 500 mg PO BID #180 tab MDD 1000 mg 12/27/21 insulin lispro 100 unit/mL 20 unit (0.2 mL) SUBCUT TID PRN #6 01/01/22 subcutaneous pen (Humalog KwikPen syrg (U-100) Insulin) cephalexin 500 mg capsule 500 mg PO QID 7 Days #28 cap 01/07/22 Allergies Allergy/AdvReac Type Severity Reaction Status Date / Time propylene glycol Allergy Severe Rash Verified 01/07/22 18:14 petrolatum,white Allergy Intermediate rash Verified 01/07/22 18:14 [From Petroleum Jelly] adhesive tape Allergy Unknown Skin Rash Verified 01/07/22 18:14 alendronate sodium Allergy Unknown Hives Verified 01/07/22 18:14 azithromycin AdvReac Intermediate dry heaves Verified 01/07/22 18:14 and diarrhea hydrocodone bitartrate AdvReac Intermediate Nausea Verified 01/07/22 18:14 [From Vicodin] liraglutide [From Victoza] AdvReac Intermediate diarhhea Verified 01/07/22 18:14 paraben AdvReac Intermediate Skin Rash Verified 01/07/22 18:14 quaternium 15 AdvReac Intermediate generalized Verified 01/07/22 18:14 rash roflumilast AdvReac Intermediate Diarrhea Verified 01/07/22 18:14 LANDON Inhibitors AdvReac Unknown COUGH,DYSPN Verified 01/07/22 18:14 EA oxycodone HCl [From Percocet] AdvReac Unknown NAUSEA/VOMI Verified 01/07/22 18:14 TING fragranced creams Allergy Intermediate Skin Rash Uncoded 01/07/22 18:14 parabin wax Allergy Intermediate Skin Rash Uncoded 01/07/22 18:14 diogolidinyl AdvReac Severe Skin Rash Uncoded 01/07/22 18:14 bisphenal AdvReac Intermediate Skin Rash Uncoded 01/07/22 18:14 General Stated Complaint: RashLesion BRUNA: 4 Review of Systems All systems reviewed & are unremarkable except as noted in HPI and below Constitutional Constitutional: Reports as per HPI, Denies chills and Denies fever(s) Eyes Eyes: Denies blurry vision ENT Ears, Nose, Mouth, and Throat: Denies dizziness, Denies sore throat and Denies throat swelling Cardiovascular Cardiovascular: Denies chest pain and Denies dyspnea Respiratory Respiratory: Denies cough and Denies dyspnea Gastrointestinal Gastrointestinal: Denies abdominal pain, Denies diarrhea and Denies vomiting Genitourinary Genitourinary: Denies hematuria and Denies dysuria Musculoskeletal Musculoskeletal: Denies back pain and Denies numbness Integumentary/Breasts Skin/Breast: Reports lesions and Denies rash Neurologic Neurologic: Denies dizziness, Denies localized weakness and Denies numbness Allergic/Immunologic Allergic/Immunologic: Denies throat swelling PFSH All Active Problems (Updated 01/07/22 @ 20:10 by Roxana Whittington DO) Foreign body of wrist (Acute) Cellulitis of right wrist (Acute) Malignant neoplasm of unspecified site of left female breast (Acute ~10/2021) 11/06/21 Dr Mcgill ([facility]); Radiation Therapy planned 12/21/21-hormone receptor positive Pneumonia (Acute) Renal artery stenosis, [place]aimute, bilateral (Chronic) [facility] [place]; most recent OV 06/01/21 Atherosclerosis of both carotid arteries (Chronic 11/12/16) [facility] [place]; most recent OV 06/01/21; Recommend annual carotid US Breast cancer in female (Chronic) R 2002, L 2003 s/p B/L partial mastectomy, XRT, & tamoxifen. 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 [place]) ASCVD (arteriosclerotic cardiovascular disease) (Chronic) [facility] [place]ascular note: Asymptomatic bilateral carotid artery stenosis Non-ST elevation (NSTEMI) myocardial infarction (Acute ~12/2020) S/p proximal LCX stent placement 01/27/21 [facility] [place] Allergic rhinitis (Chronic) Vaginitis and vulvovaginitis, unspecified (Acute) CKD (chronic kidney disease) (Chronic) Microalbuminuria due to type 2 diabetes mellitus (Chronic) Spinal stenosis (Chronic 02/04/14) Multi level on MRI Obstructive sleep apnea (Chronic 03/02/14) Bipap w/ 2L 02 09/06/2019 Reflux esophagitis (Chronic 07/16/12) LA GRADE B , EGD W/ BX 05/04/15 Osteopenia (Chronic 02/14/16) DEXA 02/14/16: Fem neck t-score -1.2 --> WHO FRAX major osteoporotic 13% & hip fx 1.3% risk --> does not qualify for bisphosphonates --> Ca & vit D 03/2017 L3 compression fx --> re-calc WHO FRAX major osteoporotic 21% & hip fx 2.3% risk --> now qualifies for bisphosphonate tx, started 03/2017 Probable allergic rxn to Alendronate (1st pill Sat, Hiv and stayed thru today (but no worsening), 07/05. Agree to STOP for now. Intraabdominal calcification (Chronic 11/14/15) Incidental finding on CT 2 mm between bladder and uterus, no further eval required, AOC Hyperlipidemia (Chronic 03/18/07) Essential hypertension (Chronic 05/16/04) DJD (degenerative joint disease) (Chronic 02/04/14) Lumbar spine--multiple level on MRI Surgery 10/2011, [facility] Dr. Smith Medical History Anemia (02/11/14) Suspect chronic dz/bone marrow suppression s/p breast CA tx (radiation); s/p GI workup (possible AVMs?), NL B12/folate, elevated Epo, NL retic count; chronic iron supplementation Chronic GI bleeding Compression fracture of lumbar vertebra (03/14/17) Depression (11/30/02) s/p of brother (on SSRI for short time) Headache Heart murmur 07/11/2016 echo: mild-moderate mitral regurgitation Hiatal hernia (02/11/14) Smaller portions Endoscopy 10/04 anemia (nothing found), [facility] [place] Hypomagnesemia (03/04/17) Leg cramps (04/01/14) Low Mg+ --> supplementation helped, but caused diarrhea; handout on dietary Mg+ given Pericarditis (~12/2020) S/p ME Solitary pulmonary nodule (12/22/15) Incidental finding of 6 mm pulm nodule RLL on 11/07/[address] with 6 month f/u chest CT recommended; 04/2016 6-month f/u chest CT: resolution of nodule 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 Dr Agee H/O laminectomy L5S1 H/O laminectomy (~10/06/12) L5S1 Dr. Jarrod Ballard H/O partial mastectomy (~10/26/21) Left breast History of hysterectomy, supracervical Oophrectomy, Right (~2007) For unknown reason S/P breast biopsy, left (05/09/21) u/s guided Core Bx Status post coronary artery stent placement (~01/27/21) Tooth Extractions Multiple Family History Sister Breast cancer Mother , 89 Alzheimer's dementia Breast cancer Father , AGE 75 Alcohol abuse Cirrhosis Sister Neoplasm uterine CA Sister Heart disease Brother Heart disease Niece Breast cancer Social History Smoking/Tobacco Use Status: Former Tobacco Use tobacco type: cigarettes Quit Date: 09/02/95 Tobacco: How many years used: 25 Smoking risk assessment performed?: Yes Alcohol Intake: former Details: none Drug use: Never Substance use type: does not use Adopted: No Caregiver/Support person: No Foster care: No Household members: spouse Number of Children: 4 Communication Needs: None Pets and animals: No Current gender identity: female What type of physical activity do you participate in: regular exercise Duration: < 15 minutes/day Frequency: 3-4 times per week Mell/Druze: Mandaen Seatbelt use: always Drive intox or ride w/intox truck driver's offsider: No Working smoke detector in home: Yes Fire extinguisher in home: Yes Carbon monox detector in home: Yes Do you feel safe at home: Yes Do you feel safe in your relationship?: Yes Additional Social history: Lives with in [place]. 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 She has 11 grandkids who all live close. History History Para Hx # Term Pregnancies Multiple births Hx # Pregnancies Ectopic pregnancies AB induced Hx Number of Living Children 4 AB spontaneous Exam Const General: cooperative, healthy appearing and no acute distress Orientation: alert, awake and oriented x3 HENMT Head: normal to inspection Mouth: oral mucosae normal Eyes General: appearance normal, both eyes and all related structures Neck Neck: normal visual inspection Resp Effort & Inspection: normal respiratory effort and able to speak in complete sentences Cardio Rate: regular rate Skin General skin exam: no rashes or lesions noted Neuro General: patient alert, patient awake and patient oriented x3 Motor: muscle tone normal throughout Extrem Elbow/forearm/wrist images: 1. 1 x 1 cm area of tender raised erythema with a 2 x 2 millimeter abrasion on distal aspect. No drainage or active bleeding. Psych Appearance: grossly normal Affect: normal affect Course Vital Signs Vital signs: Vital Signs Temperature 97 F L 01/07/22 18:11 Pulse 88 01/07/22 18:11 Respiratory Rate 18 01/07/22 18:11 Blood Pressure 180/58 H 01/07/22 18:11 Pulse Oximetry 92 01/07/22 18:11 Temperature 97 F L 01/07/22 18:11 Temperature Source Temporal Artery Scan 01/07/22 18:11 Pulse 88 01/07/22 18:11 Respiratory Rate 18 01/07/22 18:11 Respiratory Effort Non-Labored 01/07/22 18:15 Blood Pressure 180/58 H 01/07/22 18:11 Blood Pressure Position Sitting 01/07/22 18:11 Pulse Oximetry 92 01/07/22 18:11 Oxygen Delivery Method Room Air 01/07/22 18:11 Oxygen Flow Rate 0 01/07/22 18:11
--- NOTE | 2022-01-07 19:28 | DI.VRAD_ITS ---
PROCEDURE INFORMATION: Exam: XR Right Wrist Exam date and time: 01/07/2022 19:11 Age: 71 years old Clinical indication: Pain; Right; Patient HX: Sliver of wood R wrist, assess for foreign body TECHNIQUE: Imaging protocol: XR Right wrist. Views: 3 or more views. COMPARISON: No relevant prior studies available. FINDINGS: Bones/joints: Degenerative changes are most pronounced in the radial aspect of the wrist. No acute fracture or subluxation. Soft tissues: No radiopaque foreign body is seen. IMPRESSION: No radiopaque foreign body is seen. Dictated and Authenticated by: Noemy Landeros MD. Ordering:ZENAIDA Schmidt MD
[2022-01-07] MEDS: Cephalexin 500 MG CAP, 4 CAPS/BTL PO (20:22)
[2022-01-07] MEDS: Cephalexin 500 MG CAP PO (20:22)
[2022-01-07 20:23] VITALS: BP 145/51; PULSE 78; RESP 18; O2SAT 91
--- NOTE | 2022-01-07 21:36 | NUR.NOTE ---
Referral [facility] f/u this week fro possible f.b. in right wrist. Put on antibiotic and advised warm soaks.Nursing Note:
== END 2022-01-07 20:30 | disposition home or self-care (01) ==
PROVIDERS: Emergency Provider Physician Assistant; PCP Nurse Practitioner Family
DX: S60.851A Superficial foreign body of right wrist, initial encounter (principal); L03.113 Cellulitis of right upper limb; W45.8XXA Other foreign body or object entering through skin, initial encounter
CPT/HCPCS: 99283; 73110

== ENCOUNTER 2022-01-10 10:32 | Outpatient (REF) | payer MEDICARE, BC, SELFPAY ==
[2022-01-11 15:04] LABS: COVID-19 RT-PCR UVMMC Result Positive (Negative)
== END 2022-01-10 10:33 | disposition home or self-care (01) ==
LOC: LBN 10:32
PROVIDERS: PCP Nurse Practitioner Family; Visit Provider Nurse Practitioner
DX: Z20.822 Contact with and (suspected) exposure to COVID-19 (principal); R09.89 Other specified symptoms and signs involving the circulatory and respiratory systems; R05.8 Other specified cough
CPT/HCPCS: 87631; U0003; U0005

== ENCOUNTER → 2022-01-25 14:56 | Outpatient (CLI) | payer MEDICARE, BC, SELFPAY ==
--- NOTE | 2022-01-25 11:00 | DI.RAD_ITS ---
Exam(s) XR CHEST 2V PA LATERAL EXAM: XR CHEST 2V PA LATERAL CLINICAL HISTORY: cough, post covid r/o pneumonia, R05.9 TECHNIQUE: 2D digital imaging was performed of the chest. Two images were obtained. PA and lateral views were obtained. COMPARISON: CR XR CHEST 2V PA LATERAL from 10/06/2021 CR,XR XR PORTABLE CHEST AP from 12/04/2021 FINDINGS: MEDIASTINUM: Normal. HEART: Normal. PULMONARY VASCULATURE: Normal. LUNGS: No focal consolidating infiltrates are present. The lungs are hyperinflated suggesting underl baljit COPD. PLEURAL SPACE: No pleural effusion or pneumothorax. BONE:Within normal limits for the patient's age. OTHER FINDINGS:Surgical clips are seen in the left soft tissues. IMPRESSION: No acute pulmonary findings. DATA REPOSITORY: RADIATION DOSE DELIVERED:
== END ==
PROVIDERS: PCP Nurse Practitioner Adult Health; Visit Provider Physician Assistant
DX: R05.8 Other specified cough (principal); J44.9 Chronic obstructive pulmonary disease, unspecified; Z86.16 Personal history of COVID-19
CPT/HCPCS: 71046

== ENCOUNTER → 2022-01-26 09:21 | Outpatient (BNVA) | payer MEDICARE, BC, SELFPAY | PROVIDERS: PCP Nurse Practitioner Adult Health; Referring Provider Nurse Practitioner Family; Visit Provider Surgery | DX: S60.851A Superficial foreign body of right wrist, initial encounter (principal); W45.8XXA Other foreign body or object entering through skin, initial encounter | CPT/HCPCS: 99202; 99212 ==

== ENCOUNTER → 2022-02-01 18:53 | Outpatient (CLI) | payer MEDICARE, BC, SELFPAY ==
--- NOTE | 2022-02-01 14:45 | DI.RAD_ITS ---
Exam(s) XR CHEST 2V PA LATERAL EXAM: XR CHEST 2V PA LATERAL CLINICAL HISTORY: r/o pna/copd exaceration-J44.9 -- Cough-R05.9. TECHNIQUE: 2D digital imaging was performed. COMPARISON: CR XR CHEST 2V PA LATERAL from 10/06/2021 CR,XR XR PORTABLE CHEST AP from 12/04/2021 CR XR CHEST 2V PA LATERAL from 01/25/2022 FINDINGS: 2 views: Heart size is normal. The mediastinum is not widened. There has been some improvement in the right lung base infiltrate although this is not completely. N o pleural effusions. Left lower lobe infiltrate seen on 10/06/2021 has also not completely resolved. There are no obvious pleural effusions. No pulmonary edema. No pneumothorax. IMPRESSION: Improving bilateral lung base infiltrates. There are no pleural effusions. DATA REPOSITORY: RADIATION DOSE DELIVERED:
== END ==
PROVIDERS: PCP Nurse Practitioner Adult Health; Visit Provider Nurse Practitioner Family
DX: J44.9 Chronic obstructive pulmonary disease, unspecified (principal); R05.8 Other specified cough; R91.8 Other nonspecific abnormal finding of lung field
CPT/HCPCS: 71046

== ENCOUNTER → 2022-02-15 10:34 | Outpatient (BNVA) | payer MEDICARE, BC, SELFPAY | PROVIDERS: PCP Nurse Practitioner Adult Health; Referring Provider Nurse Practitioner Family; Visit Provider Internal Medicine Cardiovascular Disease | DX: I25.2 Old myocardial infarction (principal); J44.9 Chronic obstructive pulmonary disease, unspecified; Z95.5 Presence of coronary angioplasty implant and graft | CPT/HCPCS: 99213 ==

== ENCOUNTER → 2022-02-16 19:24 | Outpatient (CLI) | payer MEDICARE, BC, SELFPAY ==
--- NOTE | 2022-02-16 19:30 | DI.RAD_ITS ---
Exam(s) XR LUMBAR SPINE COMPLETE EXAM: XR LUMBAR SPINE COMPLETE CLINICAL HISTORY: back pain. TECHNIQUE: 2D digital imaging was performed. Five views. COMPARISON: CR XR CHEST 2V PA LATERAL from 02/01/2022 FINDINGS: BONES: Stable compression fracture of L3. No acute fracture or destructive lesion. Endplate osteophy nya are noted. facet hypertrophy identified at multiple levels.. DISKS: Mild disc space narrowing at L2-3. The remaining intervertebral disc spaces are maintained. ALIGNMENT: Lumbar spinal alignment is within normal limits. SOFT TISSUE: Atherosclerotic calcificatio n of the aorta. Normal diameter. Visualized portions of lungs clear. Bowel gas pattern unremarkabl e. IMPRESSION: Stable old L3 compression fracture. Stable degenerative changes of the facet joints and mild degener ative disc changes.. DATA REPOSITORY: RADIATION DOSE DELIVERED:
--- NOTE | 2022-02-16 20:35 | DI.VRAD_ITS ---
PROCEDURE INFORMATION: Exam: XR Lumbosacral Spine Exam date and time: 02/16/2022 19:53 Age: 71 years old Clinical indication: Low back pain; Patient HX: Pain for 2 days, no known trauma TECHNIQUE: Imaging protocol: Radiologic exam of the lumbosacral spine. Views: 4 or 5 views. COMPARISON: CT LUMBAR SPINE RECONS 05/05/2021 11:29 FINDINGS: Bones/joints: No acute fracture or subluxation. Moderate chronic compression deformity L3 is stable. Mild distal lumbar predominant degenerative changes. Soft tissues: Unremarkable. Vasculature: Atherosclerosis with minor dilation of the infrarenal aorta similar to prior. IMPRESSION: 1. No acute bony pathology. 2. Moderate chronic compression deformity L3 is stable. Dictated and Authenticated by: Noemy Landeros MD. Ordering:ЕЛЕНА Vidal MD
== END ==
PROVIDERS: PCP Nurse Practitioner Adult Health; Visit Provider Physician Assistant
DX: M43.8X6 Other specified deforming dorsopathies, lumbar region; M47.816 Spondylosis without myelopathy or radiculopathy, lumbar region; Z87.311 Personal history of (healed) other pathological fracture
CPT/HCPCS: 72110

== ENCOUNTER 2022-02-16 20:11 | Outpatient (REF) | payer MEDICARE, BC, SELFPAY | END 2022-02-16 20:12 | disposition home or self-care (01) | LOC: LBN 20:11 | PROVIDERS: PCP Nurse Practitioner Adult Health; Visit Provider Physician Assistant | DX: R31.9 Hematuria, unspecified (principal) | CPT/HCPCS: 87086 ==

== ENCOUNTER 2022-03-09 02:18 | Outpatient (CLI) | payer MEDICARE, BC, SELFPAY ==
[2022-03-09 13:13] LABS: Absolute Basophil Count 0.02 10^3/uL (0.0-0.2); Absolute Eosinophil Count 0.06 10^3/uL (0.0-0.7); Absolute Lymphocyte Count 0.74 10^3/uL (1.2-3.4); Absolute Monocyte Count 0.39 10^3/uL (0.1-0.8); Absolute Neutrophil Count 1.89 10^3/uL (1.2-6.7); Basophils % 0.6; Eosinophils % 1.9; HCT 33.9 % (36.0-46.0); HGB 10.7 g/dL (11.2-15.7); Immature Grans % 3.1; Lymphocytes % 23.1; MCH 33.2 pg (27.0-33.0); MCHC 31.6 % (32.0-36.0); MCV 105 fL (80-95); MPV 8.4 fL (8.0-11.0); Monocytes % 12.2; Neutrophils % 59.1; Platelet Count 200 10^3/uL (130-400); RBC 3.22 10^6/uL (3.93-5.22); RDW 15.9 % (11.7-14.6); RDW-SD 61.9 fL
[2022-03-09 13:28] LABS: Diff Comment RBC Morph Reviewed; Macrocytosis 2+
[2022-03-09 13:40] LABS: ALT 28 U/L (14-59); AST 23 U/L (15-37); Albumin 4.1 g/dL (3.4-5.0); Alkaline Phosphatase 41 U/L (46-116); Anion Gap 10.6 mmol/L (3-11); BUN 37 mg/dL (7-18); Bilirubin, Total 0.3 mg/dL (0.2-1.0); CO2 31.4 mmol/L (21.0-32.0); CREATININE 1.3 mg/dL (0.55-1.02); Calcium 9.9 mg/dL (8.5-10.1); Chloride 98 mmol/L (98-107); Estimated GFR 40.26 (mL/min/1.73m2); Ferritin 24 ng/mL (8-252); Glucose 181 mg/dL (74-106); Potassium 4.2 mmol/L (3.5-5.1); Sodium 140 mmol/L (136-145); Total Protein 7.5 g/dL (6.4-8.2)
[2022-03-09 14:12] LABS: Iron 62 ug/dL (50-170); Total Iron Binding Capacity 465 ug/dL (250-450); Transferrin Sat 13 % (15-50)
== END 2022-03-09 02:19 | disposition home or self-care (01) ==
LOC: LBO 02:18
PROVIDERS: PCP Nurse Practitioner Adult Health; Visit Provider Internal Medicine Hematology & Oncology
DX: D50.0 Iron deficiency anemia secondary to blood loss (chronic) (principal)
CPT/HCPCS: 36415; 80053; 82728; 83540; 83550; 85025

== ENCOUNTER 2022-03-27 10:05 | Emergency (ER) | payer MEDICARE, BC, SELFPAY ==
[2022-03-27 10:10] VITALS: BP 159/49; PULSE 75; RESP 18; TEMP 36.8; O2SAT 94
--- NOTE | 2022-03-27 10:23 | W.ED.GENAD ---
Discharge Plan Disposition Patient Disposition: HOME Condition: Stable Discharge Details Clinical Impression: Low back pain, GERD (gastroesophageal reflux disease) Primary Care Provider: Mel Do ED Provider: Franck Erwin Home Meds and New Rx's Prescriptions: No Action Yfnlesadie Ellipta 100-62.5-25 mcg blister with device 1 inh inhalation DAILY Qty: 60 8RF albuterol sulfate [ProAir HFA] 90 mcg/actuation HFA aerosol inhaler 1 - 2 puff Inhalation Q4H PRN Qty: 8.5 8RF albuterol sulfate 2.5 mg /3 mL (0.083 %) solution for nebulization 2.5 mg IH Q4H PRN (Reason: bronchospasm) Qty: 180 6RF montelukast [Singulair] 10 mg tablet 10 mg PO DAILY Qty: 90 3RF cetirizine 10 mg tablet 10 mg PO DAILY Qty: 90 3RF hydrochlorothiazide 25 mg tablet 25 mg PO DAILY AM Qty: 90 3RF fluticasone propionate 50 mcg/actuation spray,suspension 2 spray intranasal DAILY Qty: 16 5RF Rx Instructions: administer into each nostril valsartan 160 mg tablet 160 mg PO DAILY Qty: 90 3RF Rx Instructions: Dose increase 03/12/2022 insulin glargine [Lantus Solostar U-100 Insulin] 100 unit/mL (3 mL) insulin pen See Rx Instructions subcut BID MDD 80 units/24h Qty: 60 3RF Rx Instructions: 30 units AM and 31 units PM subcut; insulin lispro [Humalog KwikPen Insulin] 100 unit/mL insulin pen 22 unit subcut TID PRN (Reason: high blood sugar) Qty: 60 3RF Label Comments: INJECT 4 UNITS UNDER THE SKIN BEFORE MEALS DIRECTED Glucagon Emergency Kit (human) 1 mg recon soln 1 mg subcut ONCE Qty: 1 0RF Rx Instructions: 1 mg SQ ONCE; may repeat in 15 minutes as needed (DME) pen needle, diabetic [Lite Touch Insulin Pen [place]] 31 gauge x 3/16 needle See Rx Instructions .ROUTE .MEDSUPPLY Qty: 400 3RF Rx Instructions: To administer Insulin 4 times a day. Dispense covered brand. For E11.9 to maintain A1C<7. Oxygen EACH NS At Night Qty: 2 0RF Label Comments: 2 L at night and CPAP- patient states she wore these 11/10/17 multivitamin [Daily Multi-Vitamin] 1 EACH tablet 1 ea PO DAILY Label Comments: patient states she took this roughly one week ago (DME) lancets [Sure Comfort Lancets] 1 EACH misc 1 ea Miscellaneous DAILY Qty: 1 3RF Rx Instructions: Dx: E11.9 to maintain HbA1C less than 7% acetaminophen 500 MG tablet 1,000 mg PO TID PRNQty: 90 cyanocobalamin (vitamin B-12) 1,000 mcg tablet 1,000 mcg PO DAILY Qty: 90 3RF rosuvastatin 40 mg tablet 40 mg PO DAILY Qty: 90 3RF Hold Instructions: Home Medication placed on hold at Doctor's office (DME) FreeStyle [place] 2 [place] [facility] Rx Instructions .ROUTE .MEDSUPPLY Qty: 1 0RF Rx Instructions: As directed (DME) FreeStyle Basia 2 Sensor Kit See Rx Instructions .ROUTE .MEDSUPPLY Qty: 6 3RF Rx Instructions: As directed metoprolol succinate 50 mg tablet extended release 24 hr 50 mg PO DAILY Qty: 90 3RF valsartan 80 mg tablet 80 mg PO DAILY Qty: 90 3RF ferrous sulfate 325 mg (65 mg iron) tablet 325 mg PO TID Qty: 270 3RF (DME) Blood Glucose Test Strip See Rx Instructions .ROUTE .MEDSUPPLY Qty: 400 3RF Rx Instructions: As directed to check blood glucose four times daily. On insulin. Dispense covered brand. Prolia 60 mg/mL syringe 60 mg subcut [id number] letrozole 2.5 mg tablet 2.5 mg PO DAILY PRN Rx Instructions: 09/22/21 Hem/Onc prescribes. calcium carbonate-vitamin D3 600 mg-20 mcg (800 unit) tablet 2 tab PO DAILY Qty: 180 3RF Rx Instructions: Take 2 pills daily triamcinolone acetonide 0.1 % ointment 1 applic topical BID Rx Instructions: 10/10/21 Derm magnesium oxide 400 mg (241.3 mg magnesium) tablet See Rx Instructions PO .COMPLEX Qty: 180 3RF Rx Instructions: 400 mg AM and PM as per María Mendoza metformin 500 mg tablet 500 mg PO BID MDD 1000 mg Qty: 180 3RF Rx Instructions: DOSED FOR RENAL FUNCTION Jardiance 25 mg tablet 25 mg PO DAILY AM Qty: 90 3RF Rx Instructions: Administer once daily in the morning, with or without food pantoprazole 20 mg tablet,delayed release (DR/EC) 20 mg PO DAILY Qty: 90 3RF Rx Instructions: Take 20 mg daily once daily in the morning at least 30-60 minutes before first meal of the day aspirin [Aspir-81] 81 MG tablet,delayed release (DR/EC) 81 mg PO DAILY Qty: 90 Discharge Instructions Instructions: Low Back Strain (ED), GERD (Gastroesophageal Reflux Disease) (ED) Additional Instructions: Please continue to take your medications as prescribed. For your back pain continue to take acetaminophen and perform activities as tolerated by discomfort. For your gastritis continue to take your prescribed Protonix(pantoprazole) but you may also use [id number] Pepcid as directed on packaging. If you have any significant new or worsening symptoms return to emergency department for reassessment otherwise follow-up with your primary care provider if not improving in the next week. Referrals: Mel Do NP [Primary Care Provider] - 1 week (If not improving) Discharge Data Discharge Date/Time-TO BE ENTERED AT DEPARTURE: 03/27/22 15:04 Medical Decision Making Patient presenting to the emergency department for chief complaint of low back pain that radiates into her pelvis and legs. Patient denies any injury or trauma but does state that discomfort seem to happen when she was riding in the car. Denies any urinary symptoms but does state some heartburn bloating and nausea which she has a history of GERD. Patient does have significant past medical history of COPD that is oxygen dependent, type 2 diabetes, chronic kidney disease and hypertension. Patient also does have history of compression fracture of the lumbar spine. Physical exam shows tenderness to bilateral SI joint with reproducible pain and discomfort. No CVA tenderness, exam is otherwise unremarkable. High suspicion of lumbar back pain due to her car ride but given patient having multiple review of systems positive that I do not feel are associated with her back pain we will still plan on performing labs and urinalysis. We will treat patient's discomfort with acetaminophen and will give some Pepcid pending results. Reassessed patient and patient continuing to complain of abdominal pain and low back pain. Due to no improvement of symptoms we will plan on performing CT imaging of the abdomen and pelvis with contrast due to arterial stenosis of the abdomen. Review of labs show unremarkable baseline CBC along with CMP that is nondiagnostic. Reviewed CT imaging that shows chronic findings consistent with gastritis otherwise no acute surgical findings noted. Patient reassessed and states improvement of symptoms. I recommended [id number] Pepcid given that patient reported improvement of symptoms after having p.o. Pepcid here in the emergency department. Otherwise discussed standard of care for low back pain along with return and follow-up precautions. After discussion of diagnosis and plan of care patient has no further needs, questions, or concerns and states clear understanding to return to the emergency department for any worsening symptoms. This documentation was generated using [employer] system, please disregard any oddities of phrase or misspellings. Imaging Data Radiologic Study: Attestation: I personally reviewed and interpreted this imaging study as follows: Imaging: CT Scan Radiologist's impression: FINDINGS: ABDOMEN: Lung Bases: No acute infiltrates. Coronary artery calcifications are present. There is calcification of the mitral valve. Liver: Normal density. No measurable mass. Portal, Superior Mesenteric, and Splenic Veins: Unremarkable. Gallbladder and Biliary Tract: No radiodense calculus or dilation. Pancreas: Normal density, no abnormal calcifications or inflammatory process. Spleen: Normal. Adrenals: There is a stable right adrenal nodule. No follow-up is recommended. The left adrenal gland is unremarkable. Kidneys: Normal size, contour and axis. No radiodense stones or obstructive uropathy. No masses seen. Abdominal Aorta: No aneurysmal dilatation. Moderately severe atherosclerosis. Bowel: No evidence of bowel obstruction. There is concentric thickening of the antrum of the stomach. No evidence of appendicitis. Peritoneal Cavity: No ascites, collection or mesenteric inflammatory response. No free air. Lymph Nodes: Within normal limits. Bones: Within normal limits for the patient's age. There is an old L3 compression fracture deformity. Soft Tissues: The small nodules in the subcutaneous tissues in the anterior abdominal wall are unchanged. PELVIS: Bladder: Symmetric distention, no gross wall thickening. Reproductive Organs: Unremarkable as visualized. Lymph Nodes: Within normal limits. Bones: Within normal limits for the patient's age. IMPRESSION: 1. Concentric thickening of the wall of the antrum of the stomach. This may be due to underdistention. Possibility of an infectious/inflammatory gastritis or ulcer disease should be considered. Neoplasm cannot be entirely excluded. 2. No other acute abdominal pelvic process is present. 3. Results of this exam have been verbally communicated with provider. Lab Data Lab results reviewed: Yes I reviewed the patient's lab results. HPI General Mode of arrival: ambulatory. Date/Time Provider Initiated Documentation: 03/27/22 10:06. Limitations to Documentation: no limitations. Information obtained by: patient, family, RN notes reviewed and old records reviewed. History of Present Illness 71 year old F presents to the emergency department with the chief complaint of low back pain, described as moderate, with intensity rated at 8. Quality is described as aching and sharp, and is localized to the back. Patient extremity. Patient started experiencing this day(s) (5) and it has been constant. Rest improves symptom(s), Movement worsens symptoms . Patient notes nausea/vomiting (Only nausea). Patient did receive the following treatments prior to arrival, other (Acetaminophen but none today) Related Data Home Medications Medication Instructions Recorded Confirmed aspirin 81 mg tablet,delayed 81 mg PO DAILY ##90 03/30/13 03/27/22 release (Aspir-) multivitamin (Daily Multi-Vitamin 1 ea PO DAILY 03/19/17 03/27/22 tablet) lancets 28 gauge (Sure Comfort ##1 06/24/17 03/27/22 Lancets) acetaminophen 500 mg tablet 1,000 mg PO TID PRN #90 tab-caps 12/16/17 03/27/22 cyanocobalamin (vitamin B-12) 1,000 mcg PO DAILY #90 tab-caps 05/07/18 03/27/22 1,000 mcg tablet glucagon (human recombinant) 1 mg 1 mg subcut ONCE #1 ea 11/11/20 03/27/22 solution for injection (Glucagon Emergency Kit) rosuvastatin 40 mg tablet 40 mg PO DAILY #90 tabs 04/26/21 03/27/22 flash glucose scanning reader #1 ea 05/04/21 03/27/22 (FreeStyle Basia 2 [place]) flash glucose sensor (FreeStyle #6 ea 05/04/21 03/27/22 Basia 2 Sensor kit) metoprolol succinate 50 mg 50 mg PO DAILY #90 tabs 05/31/21 03/27/22 tablet,extended release 24 hr valsartan 80 mg tablet 80 mg PO DAILY #90 tabs 05/31/21 03/27/22 ferrous sulfate 325 mg (65 mg 325 mg PO TID #270 tabs 07/31/21 03/27/22 iron) tablet blood sugar diagnostic (Blood #400 ea 09/07/21 03/27/22 Glucose Test strips) denosumab 60 mg/mL subcutaneous 60 mg subcut [id number] 09/25/21 03/27/22 syringe (Prolia) letrozole 2.5 mg tablet 2.5 mg PO DAILY PRN 09/25/21 03/27/22 calcium carbonate 600 mg-vitamin 2 tab PO DAILY #180 tab-caps 10/09/21 03/27/22 D3 20 mcg (800 unit) tablet triamcinolone acetonide 0.1 % 1 applic topical BID 10/10/21 03/27/22 topical ointment pen needle, diabetic 31 gauge x #400 ea 10/19/21 03/27/2211/15 (Lite Touch Insulin Pen [place]) albuterol sulfate 2.5 mg/3 mL 2.5 mg (3 mL) inhalation Q4H PRN 12/06/21 03/27/22 (0.083 %) solution for nebulization bronchospasm #180 mL albuterol sulfate 90 mcg/actuation 1 - 2 puff inhalation Q4H PRN #8.5 12/06/21 03/27/22 aerosol inhaler (ProAir HFA) grams fluticasone fur. 100 mcg-umeclid 1 inh inhalation DAILY COPD #60 ea 12/06/21 03/27/22 62.5 mcg-vilant 25 mcg inhalat.powder (Trelegy Ellipta) montelukast 10 mg tablet 10 mg PO DAILY #90 tab-caps 12/06/21 03/27/22 (Singulair) cetirizine 10 mg tablet 10 mg PO DAILY #90 tabs 12/14/21 03/27/22 hydrochlorothiazide 25 mg tablet 25 mg PO DAILY AM #90 tab-caps 12/14/21 03/27/22 magnesium oxide 400 mg (241.3 mg See Rx Instructions PO .COMPLEX 12/15/21 03/27/22 magnesium) tablet low magnesium level #180 tab-caps metformin 500 mg tablet 500 mg PO BID #180 tabs 12/27/21 03/27/22 fluticasone propionate 50 2 spray intranasal DAILY #16 grams 01/10/22 03/27/22 mcg/actuation nasal spray,suspension empagliflozin 25 mg tablet 25 mg PO DAILY AM #90 tab-caps 01/26/22 03/27/22 (Jardiance) pantoprazole 20 mg tablet,delayed 20 mg PO DAILY #90 tab-caps 03/01/22 03/27/22 release valsartan 160 mg tablet 160 mg PO DAILY #90 tabs 03/12/22 03/27/22 insulin glargine 100 unit/mL (3 See Rx Instructions subcut BID Dx: 03/28/22 03/28/22 mL) subcutaneous pen (Lantus E11.9 to maintain HbA1c less than Solostar U-100 Insulin) 7% #60 mL insulin lispro 100 unit/mL 22 unit (0.22 mL) subcut TID PRN 03/28/22 03/28/22 subcutaneous pen (Humalog KwikPen high blood sugar #60 mL (U-100) Insulin) Previous Rx's Medication Instructions Recorded lancets 28 gauge (Sure Comfort ##1 06/24/17 Lancets) cyanocobalamin (vitamin B-12) 1,000 mcg PO DAILY #90 tab-caps 05/07/18 1,000 mcg tablet glucagon (human recombinant) 1 mg 1 mg subcut ONCE #1 ea 11/11/20 solution for injection (Glucagon Emergency Kit) rosuvastatin 40 mg tablet 40 mg PO DAILY #90 tabs 04/26/21 flash glucose scanning reader #1 ea 05/04/21 (FreeStyle Basia 2 [place]) flash glucose sensor (FreeStyle #6 ea 05/04/21 Basia 2 Sensor kit) metoprolol succinate 50 mg 50 mg PO DAILY #90 tabs 05/31/21 tablet,extended release 24 hr valsartan 80 mg tablet 80 mg PO DAILY #90 tabs 05/31/21 ferrous sulfate 325 mg (65 mg 325 mg PO TID #270 tabs 07/31/21 iron) tablet blood sugar diagnostic (Blood #400 ea 09/07/21 Glucose Test strips) calcium carbonate 600 mg-vitamin 2 tab PO DAILY #180 tab-caps 10/09/21 D3 20 mcg (800 unit) tablet pen needle, diabetic 31 gauge x #400 ea 10/19/2111/15 (Lite Touch Insulin Pen [place]) albuterol sulfate 2.5 mg/3 mL 2.5 mg (3 mL) inhalation Q4H PRN 12/06/21 (0.083 %) solution for nebulization bronchospasm #180 mL albuterol sulfate 90 mcg/actuation 1 - 2 puff inhalation Q4H PRN #8.5 12/06/21 aerosol inhaler (ProAir HFA) grams fluticasone fur. 100 mcg-umeclid 1 inh inhalation DAILY COPD #60 ea 12/06/21 62.5 mcg-vilant 25 mcg inhalat.powder (Trelegy Ellipta) montelukast 10 mg tablet 10 mg PO DAILY #90 tab-caps 12/06/21 (Singulair) cetirizine 10 mg tablet 10 mg PO DAILY #90 tabs 12/14/21 hydrochlorothiazide 25 mg tablet 25 mg PO DAILY AM #90 tab-caps 12/14/21 magnesium oxide 400 mg (241.3 mg See Rx Instructions PO .COMPLEX 12/15/21 magnesium) tablet low magnesium level #180 tab-caps metformin 500 mg tablet 500 mg PO BID #180 tabs 12/27/21 fluticasone propionate 50 2 spray intranasal DAILY #16 grams 01/10/22 mcg/actuation nasal spray,suspension empagliflozin 25 mg tablet 25 mg PO DAILY AM #90 tab-caps 01/26/22 (Jardiance) pantoprazole 20 mg tablet,delayed 20 mg PO DAILY #90 tab-caps 03/01/22 release valsartan 160 mg tablet 160 mg PO DAILY #90 tabs 03/12/22 insulin glargine 100 unit/mL (3 See Rx Instructions subcut BID Dx: 03/28/22 mL) subcutaneous pen (Lantus E11.9 to maintain HbA1c less than Solostar U-100 Insulin) 7% #60 mL insulin lispro 100 unit/mL 22 unit (0.22 mL) subcut TID PRN 03/28/22 subcutaneous pen (Humalog KwikPen high blood sugar #60 mL (U-100) Insulin) Allergies Allergy/AdvReac Type Severity Reaction Status Date / Time propylene glycol Allergy Severe Rash Verified 03/27/22 10:20 petrolatum,white Allergy Intermediate rash Verified 03/27/22 10:20 [From Petroleum Jelly] adhesive tape Allergy Unknown Skin Rash Verified 03/27/22 10:20 alendronate sodium Allergy Unknown Hives Verified 03/27/22 10:20 azithromycin AdvReac Intermediate dry heaves Verified 03/27/22 10:20 and diarrhea hydrocodone bitartrate AdvReac Intermediate Nausea Verified 03/27/22 10:20 [From Vicodin] liraglutide [From Victoza] AdvReac Intermediate diarhhea Verified 03/27/22 10:20 paraben AdvReac Intermediate Skin Rash Verified 03/27/22 10:20 quaternium 15 AdvReac Intermediate generalized Verified 03/27/22 10:20 rash roflumilast AdvReac Intermediate Diarrhea Verified 03/27/22 10:20 LANDON Inhibitors AdvReac Unknown COUGH,DYSPN Verified 03/27/22 10:20 EA oxycodone HCl [From Percocet] AdvReac Unknown NAUSEA/VOMI Verified 03/27/22 10:20 TING fragranced creams Allergy Intermediate Skin Rash Uncoded 03/27/22 10:20 parabin wax Allergy Intermediate Skin Rash Uncoded 03/27/22 10:20 diogolidinyl AdvReac Severe Skin Rash Uncoded 03/27/22 10:20 bisphenal AdvReac Intermediate Skin Rash Uncoded 03/27/22 10:20 General Stated Complaint: Nk/Back Pain BRUNA: 3 Review of Systems Constitutional Constitutional: Denies chills, Denies fever(s), Denies headache(s) and Denies malaise ENT Ears, Nose, Mouth, and Throat: Denies headache(s) Cardiovascular Cardiovascular: Denies chest pain and Denies dyspnea Respiratory Respiratory: Denies cough and Denies dyspnea Gastrointestinal Gastrointestinal: Reports bloating, Reports heartburn, Denies diarrhea, Reports nausea and Denies vomiting Genitourinary Genitourinary: Denies hematuria, Denies dysuria, Denies urinary incontinence, Denies urinary hesitancy and Denies urinary urgency Musculoskeletal Musculoskeletal: Reports as per HPI, Reports back pain, Denies numbness, Reports radiating pain into limb and Denies tingling Integumentary/Breasts Skin/Breast: Denies rash Neurologic Neurologic: Denies headache(s), Denies numbness and Denies tingling PFSH All Active Problems (Updated 03/27/22 @ 13:58 by Franck Erwin NP) Low back pain (Acute) GERD (gastroesophageal reflux disease) (Chronic) Essential hypertension (Acute 05/16/04) Microalbuminuria due to type 2 diabetes mellitus (Acute) Hyperlipidemia (Acute 03/18/07) Type 2 diabetes mellitus, with long-term current use of insulin (Acute ~1999) Renal artery stenosis, stebbins, bilateral (Chronic) [facility] [place] Vascular Surgery; most recent OV 06/01/21 Atherosclerosis of both carotid arteries (Chronic 11/12/16) [facility] [place] Vascular Surgery; most recent OV 06/01/21; Recommend annual carotid US COPD, very severe (Chronic) [facility] Pulm O2 dependent ASCVD (arteriosclerotic cardiovascular disease) (Chronic) [facility] 06/01/21 Vascular note: Asymptomatic bilateral carotid artery stenosis Non-ST elevation (NSTEMI) myocardial infarction (Acute ~12/2020) S/p proximal LCX stent placement 01/27/21 [facility] CKD (chronic kidney disease) (Chronic) Obstructive sleep apnea (Chronic 03/02/14) Bipap w/ 2L 02 09/06/2019 Medical History Allergic rhinitis Anemia (02/11/14) Suspect chronic dz/bone marrow suppression s/p breast CA tx (radiation); s/p GI workup (possible AVMs?), NL B12/folate, elevated Epo, NL retic count; chronic iron supplementation Back pain Breast cancer in female (~05/2021) R 2002, L 2003 s/p B/L partial mastectomy, XRT, & tamoxifen. 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 Smith Enteritis Headache Heart murmur 07/11/2016 echo: mild-moderate mitral regurgitation Hiatal hernia (02/11/14) Smaller portions Endoscopy 20112 anemia (nothing found), [facility] Hypomagnesemia (03/04/17) Intraabdominal calcification (11/14/15) Incidental finding on CT 2 mm between bladder and uterus, no further eval required, [facility]OC Iron deficiency anemia (01/02/17) S/p colo & EGD 05/2015, then capsule endoscopy & push enteroscopy with no definitive etiology identified; 11/14/2017: repeat colonoscopy (due to return of anemia) showing a colonic angioectasia, which may have been source of bleeding & anemia (no overt bleeding found). Fe supplementation & monitor Leg cramps (04/01/14) Low Mg+ --> supplementation helped, but caused diarrhea; handout on dietary Mg+ given Malignant neoplasm of unspecified site of left female breast (~10/2021) 11/06/21 Dr Mcgill ([facility] Rad[facility]Onc [facility]); Radiation Therapy planned 12/21/21-hormone receptor positive Osteopenia (02/14/16) DEXA 02/14/16: Fem neck t-score -1.2 --> WHO FRAX major osteoporotic 13% & hip fx 1.3% risk --> does not qualify for bisphosphonates --> Ca & vit D 03/2017 L3 compression fx --> re-calc WHO FRAX major osteoporotic 21% & hip fx 2.3% risk --> now qualifies for bisphosphonate tx, started 03/2017 Probable allergic rxn to Alendronate (1st pill Sat, and stayed thru today (but no worsening), 07/05. Agree to STOP for now. 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 Dr Agee H/O laminectomy L5S1 H/O laminectomy (~10/06/12) L5S1 Dr. Jarrod Ballard H/O partial mastectomy (~10/26/21) Left breast History of hysterectomy, supracervical Oophrectomy, Right (~2007) For unknown reason S/P breast biopsy, left (05/09/21) u/s guided Core Bx Status post coronary artery stent placement (~01/27/21) Tooth Extractions Multiple Family History Sister Breast cancer Mother , 89 Alzheimer's dementia Breast cancer Father , AGE 75 Alcohol abuse Cirrhosis Sister Neoplasm uterine CA Sister Heart disease Brother Heart disease Niece Breast cancer Social History Smoking/Tobacco Use Status: Former Tobacco Use tobacco type: cigarettes Quit Date: 09/02/95 Tobacco: How many years used: 25 Smoking risk assessment performed?: Yes Alcohol Intake: former Details: none Drug use: Never Substance use type: does not use Adopted: No Caregiver/Support person: No Foster care: No Household members: spouse Number of Children: 4 Communication Needs: None Pets and animals: No Current gender identity: female What type of physical activity do you participate in: regular exercise Duration: < 15 minutes/day Frequency: 3-4 times per week Mell/Presybeterian: Zoroastrianism Seatbelt use: always Drive intox or ride w/intox feedmobile driver: No Working smoke detector in home: Yes Fire extinguisher in home: Yes Carbon monox detector in home: Yes Do you feel safe at home: Yes Do you feel safe in your relationship?: Yes Additional Social history: Lives with in [place]. 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 She has 11 grandkids who all live close. History History Para Hx # Term Pregnancies Multiple births Hx # Pregnancies Ectopic pregnancies AB induced Hx Number of Living Children 4 AB spontaneous Exam Const General: cooperative and no acute distress Orientation: alert, awake and oriented x3 Neck Neck: normal visual inspection, full ROM and no meningeal signs Resp Effort & Inspection: normal respiratory effort Auscultation: clear to auscultation bilaterally Cardio Rate: regular rate Rhythm: regular rhythm Heart Sounds: S1 normal and S2 normal GI Palpation: no hepatosplenomegaly, no aortic enlargement, no masses and no pulsatile masses Back/Spine/Pelvis Back: no CVA tenderness Thoracic/Lumbar Spine: pain with thoraco-lumbar ROM, paraspinal tenderness, thoraco-lumbar ROM limited, No thoracic spinal tenderness and No lumbar spinal tenderness Pelvis: no pain with anterior-posterior compression and no pain with lateral compression Sacroiliac joints: bilaterally tender to palpation Neuro General: patient alert, patient awake and patient oriented x3 DTR's: Rt Patellar: 2+ and Lt Patellar: 2+ Course Vital Signs Vital signs: Vital Signs Temperature 36.8 C 03/27/22 10:10 Pulse 75 03/27/22 10:10 Respiratory Rate 18 03/27/22 10:10 Blood Pressure 159/49 H 03/27/22 10:10 Pulse Oximetry 94 03/27/22 10:10 Temperature 36.8 C 03/27/22 10:10 Temperature Source Temporal Artery Scan 03/27/22 10:10 Pulse 75 03/27/22 10:10 Respiratory Rate 18 03/27/22 10:10 Respiratory Effort Non-Labored 03/27/22 10:19 Blood Pressure 159/49 H 03/27/22 10:10 Blood Pressure Position Sitting 03/27/22 10:10 Pulse Oximetry 94 03/27/22 10:10 Oxygen Delivery Method Nasal Cannula 03/27/22 10:10 Oxygen Flow Rate 2 03/27/22 10:10 Pain Level 6 03/27/22 10:19 Comment 03/27/22 10:10
[2022-03-27 10:33] LABS: Bilirubin Negative (Negative); Blood Negative (Negative); Clarity Clear (Clear); Glucose >=1000 mg/dL (Negative); Ketones Negative (Negative); Leukocyte Esterase Negative (Negative); Nitrite Negative (Negative); Urobilinogen 0.2 EU/dL (Up TO 0.2)
[2022-03-27] MEDS: Ondansetron O.D.T. 4 MG TABEF PO (10:33)
[2022-03-27 10:44] LABS: Abs Immature Grans 0.23 10^3/uL (0.0-0.06); Absolute Basophil Count 0.02 10^3/uL (0.0-0.2); Absolute Eosinophil Count 0.06 10^3/uL (0.0-0.7); Absolute Lymphocyte Count 0.57 10^3/uL (1.2-3.4); Absolute Monocyte Count 0.31 10^3/uL (0.1-0.8); Absolute Neutrophil Count 1.91 10^3/uL (1.2-6.7); Basophils % 0.6; Eosinophils % 1.9; HCT 36.8 % (36.0-46.0); HGB 11.7 g/dL (11.2-15.7); Immature Grans % 7.4; Lymphocytes % 18.4; MCH 32.9 pg (27.0-33.0); MCHC 31.8 % (32.0-36.0); MCV 103 fL (80-95); MPV 8.6 fL (8.0-11.0); Neutrophils % 61.7; Platelet Count 207 10^3/uL (130-400); RBC 3.56 10^6/uL (3.93-5.22); RDW 14.2 % (11.7-14.6); RDW-SD 53.8 fL
[2022-03-27] MEDS: Famotidine 20 MG TAB PO (10:45)
[2022-03-27] MEDS: Normal Saline Flush 10 ML SYR IVP ×2 (10:51→13:09)
[2022-03-27 11:09] LABS: Diff Comment Agrees w/ Instrument; RBC Morphology Normal
[2022-03-27 11:12] LABS: ALT 42 U/L (14-59); AST 24 U/L (15-37); Albumin 4.2 g/dL (3.4-5.0); Alkaline Phosphatase 41 U/L (46-116); Anion Gap 6.9 mmol/L (3-11); BUN 30 mg/dL (7-18); Bilirubin, Total 0.3 mg/dL (0.2-1.0); CO2 33.1 mmol/L (21.0-32.0); CREATININE 1.2 mg/dL (0.55-1.02); Chloride 99 mmol/L (98-107); Estimated GFR 44.16 (mL/min/1.73m2); Glucose 199 mg/dL (74-106); Lipase 94 U/L (73-393); Potassium 3.9 mmol/L (3.5-5.1); Sodium 139 mmol/L (136-145)
--- NOTE | 2022-03-27 12:15 | DI.CT_ITS ---
Exam(s) CT ABDOMEN PELVIS W EXAM: CT ABDOMEN PELVIS W CLINICAL HISTORY: Abdominal pain, back pain TECHNIQUE: Imaging Protocol: Axial computed tomography images with coronal and sagittal reformatted images were created and reviewed CONTRAST MATERIAL: Intravenous: Omnipaque 350 Contrast volume:100 mL Oral: No COMPARISON: CT CTA ABDOMEN PELVIS from 07/08/[address] CHEST PE ABD PELVIS W from 05/18/2021 FINDINGS: ABDOMEN: Lung Bases: No acute infiltrates. Coronary artery calcifications are present. There is calcificatio n of the mitral valve. Liver: Normal density. No measurable mass. Portal, Superior Mesenteric, and Splenic Veins: Unremarkable. Gallbladder and Biliary Tract: No radiodense calculus or dilation. Pancreas: Normal density, no abnormal calcifications or inflammatory process. Spleen: Normal. Adrenals: There is a stable right adrenal nodule. No follow-up is recommended. The left adrenal gla nd is unremarkable. Kidneys: Normal size, contour and axis. No radiodense stones or obstructive uropathy. No masses seen. Abdominal Aorta: No aneurysmal dilatation. Moderately severe atherosclerosis. Bowel: No evidence of bowel obstruction. There is concentric thickening of the antrum of the stomach . No evidence of appendicitis. Peritoneal Cavity: No ascites, collection or mesenteric inflammatory response. No free air. Lymph Nodes: Within normal limits. Bones: Within normal limits for the patient's age. There is an old L3 compression fracture deformity . Soft Tissues: The small nodules in the subcutaneous tissues in the anterior abdominal wall are unchan ged. PELVIS: Bladder: Symmetric distention, no gross wall thickening. Reproductive Organs: Unremarkable as visualized. Lymph Nodes: Within normal limits. Bones: Within normal limits for the patient's age. IMPRESSION: 1. Concentric thickening of the wall of the antrum of the stomach. This may be due to underdistentio n. Possibility of an infectious/inflammatory gastritis or ulcer disease should be considered. Neopl asm cannot be entirely excluded. 2. No other acute abdominal pelvic process is present. 3. Results of this exam have been verbally communicated with provider. RADIATION DOSE DELIVERED: 829.2mGy.cm Total DLP DATA REPOSITORY: All CT scans at this facility are submitted to the National Radiology Data Registry (NRDR) Dose Index Registry (DIR) with the [employer] (A[employer]). RADIATION OPTIMIZATION: All CT scans at this facility use at least one of these dose optimization te chniques: automated exposure control; mA and/or kV adjustment per patient size (includes targeted exa ms where dose is matched to clinical indication); or iterative reconstruction.
[2022-03-27] MEDS: Omnipaque 350 MG/ML 100 ML BTL IJ (13:07)
[2022-03-27] MEDS: Normal Saline 500 ML IV (13:51)
[2022-03-27 15:03] VITALS: BP 146/76; PULSE 72; RESP 16; TEMP 36.8; O2SAT 96
== END 2022-03-27 15:04 | disposition home or self-care (01) ==
PROVIDERS: Emergency Provider Nurse Practitioner Family; PCP Nurse Practitioner Adult Health
DX: M54.50 Low back pain, unspecified (principal); K21.9 Gastro-esophageal reflux disease without esophagitis; E11.22 Type 2 diabetes mellitus with diabetic chronic kidney disease; I12.9 Hypertensive chronic kidney disease with stage 1 through stage 4 chronic kidney disease, or unspecified chronic kidney disease; N18.9 Chronic kidney disease, unspecified; J44.9 Chronic obstructive pulmonary disease, unspecified; Z99.81 Dependence on supplemental oxygen; Z79.4 Long term (current) use of insulin; Z79.51 Long term (current) use of inhaled steroids; Z87.891 Personal history of nicotine dependence
CPT/HCPCS: 36415; 80053; 83690; 96361; 96374; 99285; 74177; 81003; 85025; 99284; J0131; J3490

== ENCOUNTER → 2022-04-09 16:04 | Outpatient (CLI) | payer MEDICARE, BC, SELFPAY ==
--- NOTE | 2022-04-09 | DI.RAD_ITS ---
Exam(s) XR LUMBAR SPINE COMPLETE EXAM: XR LUMBAR SPINE COMPLETE CLINICAL HISTORY: S/P Radiotherapy-Z92.3. TECHNIQUE: 2D digital imaging was performed. COMPARISON: CR,XR XR LUMBAR SPINE COMPLETE from 02/16/2022 FINDINGS: Five views There is stable compression fracture of L3. Moderate disc space narrowing at L2-3 level. Mild degen erative anterolisthesis L4 upon L5 with normal disc height this level. There is a transitional lumbosacral vertebra here. IMPRESSION: DATA REPOSITORY: RADIATION DOSE DELIVERED:
== END ==
PROVIDERS: PCP Nurse Practitioner; Visit Provider Radiology Radiation Oncology
DX: M43.16 Spondylolisthesis, lumbar region (principal)
CPT/HCPCS: 72110

== ENCOUNTER 2022-04-20 12:58 | Outpatient (CLI) | payer MEDICARE, BC, SELFPAY ==
[2022-04-20 13:16] LABS: Abs Immature Grans 0.05 10^3/uL (0.0-0.06); Absolute Basophil Count 0.02 10^3/uL (0.0-0.2); Absolute Eosinophil Count 0.09 10^3/uL (0.0-0.7); Absolute Lymphocyte Count 0.86 10^3/uL (1.2-3.4); Absolute Monocyte Count 0.44 10^3/uL (0.1-0.8); Absolute Neutrophil Count 1.94 10^3/uL (1.2-6.7); Basophils % 0.6; Eosinophils % 2.6; HCT 33.8 % (36.0-46.0); HGB 10.8 g/dL (11.2-15.7); Immature Grans % 1.5; Lymphocytes % 25.3; MCH 32.2 pg (27.0-33.0); MCV 101 fL (80-95); MPV 8.5 fL (8.0-11.0); Monocytes % 12.9; Neutrophils % 57.1; Platelet Count 199 10^3/uL (130-400); RBC 3.35 10^6/uL (3.93-5.22); RDW-SD 48.4 fL
[2022-04-20 13:46] LABS: ALT 41 U/L (14-59); AST 28 U/L (15-37); Alkaline Phosphatase 43 U/L (46-116); Anion Gap 8.4 mmol/L (3-11); BUN 38 mg/dL (7-18); Bilirubin, Total 0.2 mg/dL (0.2-1.0); CO2 32.6 mmol/L (21.0-32.0); CREATININE 1.3 mg/dL (0.55-1.02); Calcium 9.9 mg/dL (8.5-10.1); Chloride 102 mmol/L (98-107); Estimated GFR 40.26 (mL/min/1.73m2); Ferritin 128 ng/mL (8-252); Glucose 70 mg/dL (74-106); Potassium 3.9 mmol/L (3.5-5.1); Sodium 143 mmol/L (136-145)
[2022-04-20 13:57] LABS: Iron 57 ug/dL (50-170); Total Iron Binding Capacity 399 ug/dL (250-450); Transferrin Sat 14 % (15-50)
== END 2022-04-20 12:59 | disposition home or self-care (01) ==
LOC: LBO 12:59
PROVIDERS: PCP Nurse Practitioner; Visit Provider Internal Medicine Hematology & Oncology
DX: D50.9 Iron deficiency anemia, unspecified (principal); C50.912 Malignant neoplasm of unspecified site of left female breast; Z17.0 Estrogen receptor positive status [ER+]
CPT/HCPCS: 36415; 80053; 82728; 83540; 83550; 85025

== ENCOUNTER 2022-05-09 04:18 | Outpatient (CLI) | payer MEDICARE, BC, SELFPAY ==
[2022-05-09 12:43] LABS: Abs Immature Grans 0.04 10^3/uL (0.0-0.06); Absolute Basophil Count 0.01 10^3/uL (0.0-0.2); Absolute Eosinophil Count 0.06 10^3/uL (0.0-0.7); Absolute Lymphocyte Count 0.69 10^3/uL (1.2-3.4); Absolute Monocyte Count 0.43 10^3/uL (0.1-0.8); Absolute Neutrophil Count 2.36 10^3/uL (1.2-6.7); Basophils % 0.3; Eosinophils % 1.7; HGB 11.3 g/dL (11.2-15.7); Immature Grans % 1.1; Lymphocytes % 19.2; MCH 31.9 pg (27.0-33.0); MCHC 32.3 % (32.0-36.0); MCV 99 fL (80-95); MPV 8.7 fL (8.0-11.0); Neutrophils % 65.7; Platelet Count 210 10^3/uL (130-400); RBC 3.54 10^6/uL (3.93-5.22); RDW 13.7 % (11.7-14.6); RDW-SD 49.5 fL; WBC 3.59 10^3/uL (4.4-10.8)
[2022-05-09 13:08] LABS: TSH 2.04 uIU/mL (0.36-3.74); Vitamin B12 1034 pg/mL (193-986)
[2022-05-09 13:09] LABS: Folate > 20.0 ng/mL (8.6-20.0)
[2022-05-09 13:15] LABS: Reticulocyte 2.7 % (0.5-2.4)
[2022-05-10 11:38] LABS: IgA 233 mg/dL (85-499); IgG 897 mg/dL (610-1,616); IgM 36 mg/dL (35-242); Lambda Free Light Chain 2.27 mg/dL (0.57-2.63)
[2022-05-10 12:16] LABS: Erythropoietin 49.7 mIU/mL (2.6 - 18.5)
[2022-05-10 14:55] LABS: Albumin 60.8 % (55.8-66.1); Albumin g/dL 4.6 g/dL (3.6-5.2); Total Protein 7.5 g/dL (6.3-8.2)
== END 2022-05-09 04:19 | disposition home or self-care (01) ==
LOC: LBO 04:18
PROVIDERS: Internal Medicine Hematology & Oncology; PCP Nurse Practitioner; Visit Provider Internal Medicine Hematology & Oncology
DX: D53.9 Nutritional anemia, unspecified (principal)
CPT/HCPCS: 36415; 82668; 82784; 85045; 82607; 82746; 83883; 84165; 84443; 85025

== ENCOUNTER 2022-10-05 01:30 | Outpatient (CLI) | payer MEDICARE, BC, SELFPAY ==
[2022-10-05 13:43] LABS: Magnesium 2.1 mg/dL (1.8-2.4)
[2022-10-05 13:47] LABS: ALT 26 U/L (14-59); AST 20 U/L (15-37); Albumin 3.7 g/dL (3.4-5.0); Alkaline Phosphatase 51 U/L (46-116); Anion Gap 9.7 mmol/L (3-11); BUN 29 mg/dL (7-18); Bilirubin, Total 0.3 mg/dL (0.2-1.0); CO2 28.3 mmol/L (21.0-32.0); CREATININE 1.5 mg/dL (0.55-1.02); Calcium 9.4 mg/dL (8.5-10.1); Chloride 102 mmol/L (98-107); Estimated GFR 36.57 (mL/min/1.73m2); Glucose 203 mg/dL (74-106); Potassium 4.4 mmol/L (3.5-5.1); Sodium 140 mmol/L (136-145); Total Protein 7.4 g/dL (6.4-8.2)
== END 2022-10-05 01:31 | disposition home or self-care (01) ==
LOC: LBO 01:30
PROVIDERS: PCP Nurse Practitioner; Visit Provider Internal Medicine Hematology & Oncology
DX: R79.9 Abnormal finding of blood chemistry, unspecified (principal); C50.912 Malignant neoplasm of unspecified site of left female breast
CPT/HCPCS: 36415; 80053; 83735

== ENCOUNTER 2022-10-15 09:27 | Emergency (ER) | payer MEDICARE, BC, SELFPAY ==
[2022-10-15] VITALS (59 sets, daily range): BP systolic 106–153; BP diastolic 36–117; PULSE 63–83; RESP 12–28; TEMP 36.6–37.3; O2SAT 88–98
--- NOTE | 2022-10-15 09:30 | RT.EKG_ITS ---
APPROVED REPORT Exam: Resting ECG Reason for Exam: dizziness Patient Location: E HR:77 bpm ECG Measurements Heart Rate 77 AXIS AZ 175 P 76 QRSd 76 QRS 38 QT 364 T 68 QTc 412 Conclusion Sinus rhythm...normal P axis, V-rate 60- [address] depression, lateral leads...ST <-0.07mV, I aVL V5 V6 physician: no stemi
--- NOTE | 2022-10-15 09:45 | DI.CT_ITS ---
Exam(s) CT HEAD WO EXAM: CT HEAD WO CLINICAL HISTORY: dizzy, r/o stroke. TECHNIQUE: Imaging Protocol: Axial computed tomography images with coronal and sagittal reformatted images were created and reviewed COMPARISON: CT HEAD WITH/WITHOUT CONTRAST from 07/10/2016 MR MRI - BRAIN W/WO CONTRAST from 08/03/2016 FINDINGS: Ventricles and Extra axial spaces: Normal in size and morphology for the patient's age. Hemorrhage: None. Cerebral parenchyma: Atrophy. Microvascular changes of the white matter. Stable appearance of left occipital calcifications. Midline shift: None. Brainstem/Cerebellum: Normal. Calvarium: Normal. Visualized Paranasal sinuses/Mastoids: Clear. Soft Tissues: Unremarkable. IMPRESSION: No acute intracranial process. RADIATION DOSE DELIVERED: 711.04mGy.cm Total DLP DATA REPOSITORY: All CT scans at this facility are submitted to the National Radiology Data Registry (NRDR) Dose Index Registry (DIR) with the [employer] (ACR). RADIATION OPTIMIZATION: All CT scans at this facility use at least one of these dose optimization te chniques: automated exposure control; mA and/or kV adjustment per patient size (includes targeted exa ms where dose is matched to clinical indication); or iterative reconstruction.
[2022-10-15 10:26] LABS: Abs Immature Grans 0.23 10^3/uL (0.0-0.06); Absolute Basophil Count 0.01 10^3/uL (0.0-0.2); Absolute Eosinophil Count 0.05 10^3/uL (0.0-0.7); Absolute Lymphocyte Count 0.78 10^3/uL (1.2-3.4); Absolute Monocyte Count 0.38 10^3/uL (0.1-0.8); Absolute Neutrophil Count 1.88 10^3/uL (1.2-6.7); Basophils % 0.3; Eosinophils % 1.5; HCT 23.7 % (36.0-46.0); Immature Grans % 6.9; Lymphocytes % 23.4; MCH 24.9 pg (27.0-33.0); MCHC 27.8 % (32.0-36.0); MCV 89 fL (80-95); MPV 9.3 fL (8.0-11.0); Monocytes % 11.4; Neutrophils % 56.5; Platelet Count 188 10^3/uL (130-400); RBC 2.65 10^6/uL (3.93-5.22); RDW 17.1 % (11.7-14.6); RDW-SD 53.7 fL; WBC 3.33 10^3/uL (4.4-10.8)
[2022-10-15] MEDS: Meclizine 25 MG TAB PO (10:27)
[2022-10-15] MEDS: Normal Saline 500 ML IV (10:28)
--- NOTE | 2022-10-15 10:28 | W.ED.GENAD ---
Discharge Plan Disposition Patient Disposition: Home Condition: Good Discharge Details Clinical Impression: Anemia, Weakness Primary Care Provider: Janina Calloway ED Provider: Edmund Zayas Home Meds and New Rx's Prescriptions: New pantoprazole [Protonix] 40 mg tablet,delayed release (DR/EC) 40 mg PO DAILY Qty: 60 0RF famotidine 40 mg tablet 40 mg PO DAILY Qty: 60 0RF Continued Trelegy Ellipta 100-62.5-25 mcg blister with device 1 inh inhalation DAILY Qty: 60 8RF cetirizine 10 mg tablet 10 mg PO DAILY Qty: 90 3RF insulin glargine [Lantus Solostar U-100 Insulin] 100 unit/mL (3 mL) insulin pen See Rx Instructions subcut BID MDD 61 units/24h Qty: 60 3RF Rx Instructions: 35 units AM and 35 units PM subcut; (DME) FreeStyle Basia 2 Sensor Kit See Rx Instructions .ROUTE .MEDSUPPLY Qty: 6 3RF Rx Instructions: As directed Oxygen EACH NS At Night Qty: 2 0RF Patient Comments: 2 L at night and CPAP- patient states she wore these 11/10/17 multivitamin [Daily Multi-Vitamin] 1 EACH tablet 1 ea PO DAILY Patient Comments: patient states she took this roughly one week ago (DME) lancets [Sure Comfort Lancets] 1 EACH misc 1 ea Miscellaneous DAILY Qty: 1 3RF Rx Instructions: Dx: E11.9 to maintain HbA1C less than 7% cyanocobalamin (vitamin B-12) 1,000 mcg tablet 1,000 mcg PO DAILY Qty: 90 3RF (DME) FreeStyle Basia 2 [place] Misc See Rx Instructions .ROUTE .MEDSUPPLY Qty: 1 0RF Rx Instructions: As directed Prolia 60 mg/mL syringe 60 mg subcut [id number] letrozole 2.5 mg tablet 2.5 mg PO DAILY PRN Rx Instructions: 09/22/21 Hem/Onc prescribes. calcium carbonate-vitamin D3 600 mg-20 mcg (800 unit) tablet 2 tab PO DAILY Qty: 180 3RF Rx Instructions: Take 2 pills daily triamcinolone acetonide 0.1 % ointment 1 applic topical BID Rx Instructions: 10/10/21 Derm magnesium oxide 400 mg (241.3 mg magnesium) tablet See Rx Instructions PO .COMPLEX Qty: 180 3RF Rx Instructions: 400 mg AM and PM as per María Mendoza fluocinolone 0.01 % solution 1 applic topical BID (DME) Blood Glucose Test Strip See Rx Instructions .ROUTE .MEDSUPPLY Qty: 250 1RF Rx Instructions: As directed to check blood glucose three times daily. On insulin. Dispense covered brand (Freestyle Lite) Jardiance 25 mg tablet 25 mg PO DAILY AM Qty: 90 3RF Rx Instructions: Administer once daily in the morning, with or without food hydrochlorothiazide 25 mg tablet 25 mg PO DAILY AM Qty: 90 3RF metformin 500 mg tablet 500 mg PO BID MDD 1000 mg Qty: 180 3RF Rx Instructions: DOSED FOR RENAL FUNCTION montelukast [Singulair] 10 mg tablet 10 mg PO DAILY Qty: 90 3RF valsartan 160 mg tablet 160 mg PO DAILY Qty: 90 3RF Rx Instructions: Dose increase 03/12/2022 insulin lispro [Humalog KwikPen Insulin] 100 unit/mL insulin pen 22 unit subcut TID PRN (Reason: high blood sugar) Qty: 60 3RF Patient Comments: INJECT 4 UNITS UNDER THE SKIN BEFORE MEALS DIRECTED fiber supplements PO DAILY rosuvastatin 40 mg tablet 40 mg PO DAILY Qty: 90 3RF Hold Instructions: Home Medication placed on hold at Doctor's office (DME) pen needle, diabetic [BD Ultra-Fine Marina Pen Needle] 32 gauge x 5/32 needle See Rx Instructions .Route Qty: 400 3RF Rx Instructions: Use with insulin QID. Dispense covered brand e11.9 metoprolol succinate 50 mg tablet extended release 24 hr 50 mg PO DAILY Qty: 90 3RF aspirin [Aspir-81] 81 MG tablet,delayed release (DR/EC) 81 mg PO DAILY Qty: 90 Discharge Instructions Instructions: Anemia (ED) Additional Instructions: At this time your work-up has shown that your blood levels were notably low. You have been given 2 units of blood which will bring your blood levels much higher. Unfortunately I suspect you are having a small slow bleed potentially from a small stomach ulcer or lesion in your colon. We have placed a referral with our local surgeons for prompt EGD and colonoscopy. Please avoid any spicy foods, tomato-based products, or carbonated products. Please take the newly prescribed Protonix and famotidine as directed to help reduce any ulcers. Do not take any ibuprofen. Please follow-up as quickly as possible with your oncologist and primary care provider. If you notice any worsening of your symptoms, or any new symptoms such as vomiting, diarrhea, fever, chills, shortness of breath, chest pain, numbness, weakness, or fainting , please return immediately to the emergency department for reevaluation. Please follow up with your primary care provider as soon as possible for reassessment and reevaluation. As always, it was a pleasure participating in your medical care today. Referrals: Janina Calloway NP [Primary Care Provider] - Medical Decision Making 72 year old female with a history of DM2, breast cancer x4, lumbar compression fractures.? COPD, CAD, NSTEMI, CKD, NIKKI, hyperlipidemia, anemia, HTN who presents today for evaluation of 1.5 weeks of mild dizziness and weakness. Patient states that she feels very lightheaded and weak whenever she gets up and walks around or does any activity. She denies any chest pain or shortness of breath though. She denies any room spinning sensation. The dizziness is more of a lightheadedness. She does admit to whole body aches occasionally. She denies any vomiting or diarrhea. She denies any melena. She denies any other complaints. She does state that she did receive a shot while at [facility] 1 to 2 weeks ago at the oncology appointment, however I cannot see what that shot may have been in the records. No other complaints at this time. Patient denies any history of stroke. She has had a heart attack before. Patient denies any vision changes, headache, neck pain, falls. She denies any tinnitus in her ears. Physical exam demonstrates well-appearing female, vital signs are stable. Symptoms appear clinically inconsistent with peripheral vertigo. Cerebellar stroke is unlikely, she has no ataxia or wide-based gait. No deficits otherwise. Concern for dehydration, viral systemic illness, anemia, less likely stroke. We will evaluate for these etiologies, monitor closely and reassess. EKG shows no evidence of STEMI. 2:09 PM Patient's laboratory work-up has returned, patient's hemoglobin is notably low at 6.6, most recent laboratory hemoglobin analysis was back in May of last year, which was 7 months ago, this is a 4-5 point drop since then. Platelets are normal, she does have microcytic component, potentially suggestive of a somewhat longstanding slow bleed. I did review her medications, and she states that she is not taking her famotidine or Protonix. She is not sure why she has not been taking it. COVID flu and RSV are negative, troponin and EKG are benign. Renal function normal. Thyroid function normal. Rectal exam was performed with female nurse at bedside, and although the patient's stool is notably brown, it is also notably Hemoccult positive. I suspect she is having an upper gastric ulcer that is causing her symptoms. She does state that she regularly has colonoscopies and EGDs every year, and her most recent was within the last 6 or 7 months and this was normal. We we will restart the patient on Protonix and famotidine. I did contact [facility] and discussed the case with oncology, they agree with the 2 units of planned blood administration, Dr. Ade Verde states that she will send a message to the patient's specific oncologist. We will also schedule a referral with surgery here for colonoscopy and EGD as the patient specifically requests that she has it done up here because it is much more convenient and easier for her with her family situation. Otherwise the patient is notably stable. She feels well as the blood is currently being administered. No other signs of significant abnormality. CT scan of the head is negative for acute process. 3:31 PM Patient continues to do well. She is symptomatically improved. I do feel that the patient will be an appropriate candidate for discharge with close follow-up with her PCP and oncologist as well as prompt surgical referral for EGD and colonoscopy. I did discuss prolonged admission as we do have no beds currently available here versus discharge with close follow-up and patient prefers discharge. We will prescribe Protonix and famotidine for outpatient antacid management. Recommend avoidance of any ibuprofen. Discussed dietary changes as well. Patient agrees with plan and feels comfortable with plan. We will finish blood product administration, and after this the patient will be reassessed and if still feeling well she will be discharged. I have extensively reviewed the treatment plan and discharge instructions with the patient and their family. I have addressed all patient concerns at this time. The patient and family was made aware of what symptoms to monitor for that would warrant a return to the emergency department. Discussed the plan with the patient and family, they demonstrate verbal understanding and agreement with our assessment and plan at this time. The documentation in this chart was dictated using [employer] dictation software. Please excuse any dictation errors. FINDINGS: Ventricles and Extra axial spaces: Normal in size and morphology for the patient's age. Hemorrhage: None. Cerebral parenchyma: Atrophy. Microvascular changes of the white matter. Stable appearance of left occipital calcifications. Midline shift: None. Brainstem/Cerebellum: Normal. Calvarium: Normal. Visualized Paranasal sinuses/Mastoids: Clear. Soft Tissues: Unremarkable. IMPRESSION: No acute intracranial process. HPI General Date/Time Provider Initiated Documentation: 10/15/22 09:39. HPI Narrative: 72 year old female with a history of DM2, breast cancer x4, lumbar compression fractures.? COPD, CAD, NSTEMI, CKD, NIKKI, hyperlipidemia, anemia, HTN who presents today for evaluation of 1.5 weeks of mild dizziness and weakness. Patient states that she feels very lightheaded and weak whenever she gets up and walks around or does any activity. She denies any chest pain or shortness of breath though. She denies any room spinning sensation. The dizziness is more of a lightheadedness. She does admit to whole body aches occasionally. She denies any vomiting or diarrhea. She denies any melena. She denies any other complaints. She does state that she did receive a shot while at [facility] 1 to 2 weeks ago at the oncology appointment, however I cannot see what that shot may have been in the records. No other complaints at this time. Patient denies any history of stroke. She has had a heart attack before. Patient denies any vision changes, headache, neck pain, falls. She denies any tinnitus in her ears. Related Data Home Medications Medication Instructions Recorded Confirmed aspirin 81 mg tablet,delayed 81 mg PO DAILY ##90 03/30/13 10/15/22 release (Aspir-) multivitamin (Daily Multi-Vitamin 1 ea PO DAILY 03/19/17 10/15/22 tablet) lancets 28 gauge (Sure Comfort ##1 06/24/17 10/15/22 Lancets) cyanocobalamin (vitamin B-12) 1,000 mcg PO DAILY #90 tab-caps 05/07/18 10/15/22 1,000 mcg tablet flash glucose scanning reader #1 ea 05/04/21 10/15/22 (FreeStyle Basia 2 [place]) denosumab 60 mg/mL subcutaneous 60 mg subcut [id number] 09/25/21 10/15/22 syringe (Prolia) letrozole 2.5 mg tablet 2.5 mg PO DAILY PRN 09/25/21 10/15/22 calcium carbonate 600 mg-vitamin 2 tab PO DAILY #180 tab-caps 10/09/21 10/15/22 D3 20 mcg (800 unit) tablet triamcinolone acetonide 0.1 % 1 applic topical BID 10/10/21 10/15/22 topical ointment fluticasone fur. 100 mcg-umeclid 1 inh inhalation DAILY COPD #60 ea 12/06/21 10/15/22 62.5 mcg-vilant 25 mcg inhalat.powder (Trelegy Ellipta) cetirizine 10 mg tablet 10 mg PO DAILY #90 tabs 12/14/21 10/15/22 magnesium oxide 400 mg (241.3 mg See Rx Instructions PO .COMPLEX 12/15/21 10/15/22 magnesium) tablet low magnesium level #180 tab-caps flash glucose sensor (FreeStyle #6 ea 04/02/22 10/15/22 Basia 2 Sensor kit) fluocinolone 0.01 % topical 1 applic topical BID Itchy scalp 04/11/22 10/15/22 solution blood sugar diagnostic (Blood #250 ea 04/12/22 10/15/22 Glucose Test strips) empagliflozin 25 mg tablet 25 mg PO DAILY AM #90 tab-caps 04/17/22 10/15/22 (Jardiance) hydrochlorothiazide 25 mg tablet 25 mg PO DAILY AM #90 tab-caps 04/17/22 10/15/22 metformin 500 mg tablet 500 mg PO BID #180 tabs 04/17/22 10/15/22 montelukast 10 mg tablet 10 mg PO DAILY #90 tab-caps 04/17/22 10/15/22 (Singulair) valsartan 160 mg tablet 160 mg PO DAILY #90 tabs 04/17/22 10/15/22 insulin lispro 100 unit/mL 22 unit (0.22 mL) subcut TID PRN 04/24/22 10/15/22 subcutaneous pen (Humalog KwikPen high blood sugar #60 mL (U-100) Insulin) fiber supplements PO DAILY 05/23/22 07/20/22 insulin glargine 100 unit/mL (3 See Rx Instructions subcut BID Dx: 06/11/22 10/15/22 mL) subcutaneous pen (Lantus E11.9 to maintain HbA1c less than Solostar U-100 Insulin) 7% #60 mL rosuvastatin 40 mg tablet 40 mg PO DAILY #90 tabs 08/13/22 10/15/22 pen needle, diabetic 32 gauge x #400 ea 08/29/22 10/15/22 (BD Ultra-Fine Marina Pen Needle) famotidine 40 mg tablet 40 mg PO DAILY #60 tabs 10/15/22 metoprolol succinate 50 mg 50 mg PO DAILY #90 tabs 10/15/22 10/15/22 tablet,extended release 24 hr pantoprazole 40 mg tablet,delayed 40 mg PO DAILY #60 tabs 10/15/22 release (Protonix) Previous Rx's Medication Instructions Recorded lancets 28 gauge (Sure Comfort ##1 06/24/17 Lancets) cyanocobalamin (vitamin B-12) 1,000 mcg PO DAILY #90 tab-caps 05/07/18 1,000 mcg tablet flash glucose scanning reader #1 ea 05/04/21 (FreeStyle Basia 2 [place]) calcium carbonate 600 mg-vitamin 2 tab PO DAILY #180 tab-caps 10/09/21 D3 20 mcg (800 unit) tablet fluticasone fur. 100 mcg-umeclid 1 inh inhalation DAILY COPD #60 ea 12/06/21 62.5 mcg-vilant 25 mcg inhalat.powder (Trelegy Ellipta) cetirizine 10 mg tablet 10 mg PO DAILY #90 tabs 12/14/21 magnesium oxide 400 mg (241.3 mg See Rx Instructions PO .COMPLEX 12/15/21 magnesium) tablet low magnesium level #180 tab-caps flash glucose sensor (FreeStyle #6 ea 04/02/22 Basia 2 Sensor kit) blood sugar diagnostic (Blood #250 ea 04/12/22 Glucose Test strips) empagliflozin 25 mg tablet 25 mg PO DAILY AM #90 tab-caps 04/17/22 (Jardiance) hydrochlorothiazide 25 mg tablet 25 mg PO DAILY AM #90 tab-caps 04/17/22 metformin 500 mg tablet 500 mg PO BID #180 tabs 04/17/22 montelukast 10 mg tablet 10 mg PO DAILY #90 tab-caps 04/17/22 (Singulair) valsartan 160 mg tablet 160 mg PO DAILY #90 tabs 04/17/22 insulin lispro 100 unit/mL 22 unit (0.22 mL) subcut TID PRN 04/24/22 subcutaneous pen (Humalog KwikPen high blood sugar #60 mL (U-100) Insulin) insulin glargine 100 unit/mL (3 See Rx Instructions subcut BID Dx: 06/11/22 mL) subcutaneous pen (Lantus E11.9 to maintain HbA1c less than Solostar U-100 Insulin) 7% #60 mL rosuvastatin 40 mg tablet 40 mg PO DAILY #90 tabs 08/13/22 pen needle, diabetic 32 gauge x #400 ea 08/29/22 (BD Ultra-Fine Marina Pen Needle) famotidine 40 mg tablet 40 mg PO DAILY #60 tabs 10/15/22 metoprolol succinate 50 mg 50 mg PO DAILY #90 tabs 10/15/22 tablet,extended release 24 hr pantoprazole 40 mg tablet,delayed 40 mg PO DAILY #60 tabs 10/15/22 release (Protonix) Allergies Allergy/AdvReac Type Severity Reaction Status Date / Time propylene glycol Allergy Severe Rash Verified 10/15/22 09:41 anastrozole Allergy Intermediate Verified 10/15/22 09:41 petrolatum,white Allergy Intermediate rash Verified 10/15/22 09:41 [From Petroleum Jelly] adhesive tape Allergy Unknown Skin Rash Verified 10/15/22 09:41 alendronate sodium Allergy Unknown Hives Verified 10/15/22 09:41 azithromycin AdvReac Intermediate dry heaves Verified 10/15/22 09:41 and diarrhea hydrocodone bitartrate AdvReac Intermediate Nausea Verified 10/15/22 09:41 [From Vicodin] liraglutide [From Victoza] AdvReac Intermediate diarhhea Verified 10/15/22 09:41 paraben AdvReac Intermediate Skin Rash Verified 10/15/22 09:41 quaternium 15 AdvReac Intermediate generalized Verified 10/15/22 09:41 rash roflumilast AdvReac Intermediate Diarrhea Verified 10/15/22 09:41 LANDON Inhibitors AdvReac Unknown COUGH,DYSPN Verified 10/15/22 09:41 EA oxycodone HCl [From Percocet] AdvReac Unknown NAUSEA/VOMI Verified 10/15/22 09:41 TING fragranced creams Allergy Intermediate Skin Rash Uncoded 10/15/22 09:41 parabin wax Allergy Intermediate Skin Rash Uncoded 10/15/22 09:41 diogolidinyl AdvReac Severe Skin Rash Uncoded 10/15/22 09:41 bisphenal AdvReac Intermediate Skin Rash Uncoded 10/15/22 09:41 General Stated Complaint: GenMedical BRUNA: 3 Review of Systems All systems reviewed & are unremarkable except as noted in HPI and below PFSH All Active Problems (Updated 10/15/22 @ 15:27 by Edmund Zayas DO) Anemia (Chronic) Weakness (Acute) History of breast cancer (Acute) Dermatitis, seborrheic (Acute) 07/06/22 Dr Moreno Anemia, macrocytic (Acute) 05/03/22 Hem/Onc Note Essential hypertension (Acute 05/16/04) Microalbuminuria due to type 2 diabetes mellitus (Acute) Hyperlipidemia (Acute 03/18/07) Type 2 diabetes mellitus, with long-term current use of insulin (Acute ~1999) Renal artery stenosis, [place], bilateral (Chronic) [facility]; most recent OV 06/01/21 Atherosclerosis of both carotid arteries (Chronic 11/12/16) [facility] [place]; most recent OV 06/01/21; Recommend annual carotid US COPD, very severe (Chronic) [facility] Pulm O2 dependent ASCVD (arteriosclerotic cardiovascular disease) (Chronic) [facility] [place] Vascular note: Asymptomatic bilateral carotid artery stenosis Non-ST elevation (NSTEMI) myocardial infarction (Acute ~12/2020) S/p proximal LCX stent placement 01/27/21 [facility] CKD (chronic kidney disease) (Chronic) Obstructive sleep apnea (Chronic 03/02/14) Bipap w/ 2L 02 09/06/2019 Medical History Allergic contact dermatitis due to other agents Allergic rhinitis Anemia (02/11/14) Suspect chronic dz/bone marrow suppression s/p breast CA tx (radiation); s/p GI workup (possible AVMs?), NL B12/folate, elevated Epo, NL retic count; chronic iron supplementation Back pain Breast cancer in female (~05/2021) R 2002, L 2004 s/p B/L partial mastectomy, XRT, & tamoxifen. 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 Smith Enteritis Headache Heart murmur 07/11/2016 echo: mild-moderate mitral regurgitation Hiatal hernia (02/11/14) Smaller portions Endoscopy 10/04 anemia (nothing found), [facility] Hypomagnesemia (03/04/17) Intraabdominal calcification (11/14/15) Incidental finding on CT 2 mm between bladder and uterus, no further eval required, [facility] Iron deficiency anemia (01/02/17) S/p colo & EGD 05/2015, then capsule endoscopy & push enteroscopy with no definitive etiology identified; 11/14/2017: repeat colonoscopy (due to return of anemia) showing a colonic angioectasia, which may have been source of bleeding & anemia (no overt bleeding found). Fe supplementation & monitor Leg cramps (04/01/14) Low Mg+ --> supplementation helped, but caused diarrhea; handout on dietary Mg+ given Malignant neoplasm of unspecified site of left female breast (~10/2021) 11/06/21 Dr Mcgill ([facility] Rad[facility]); Radiation Therapy planned 12/21/21-hormone receptor positive Osteopenia (02/14/16) DEXA 02/14/16: Fem neck t-score -1.2 --> WHO FRAX major osteoporotic 13% & hip fx 1.3% risk --> does not qualify for bisphosphonates --> Ca & vit D 03/2017 L3 compression fx --> re-calc WHO FRAX major osteoporotic 21% & hip fx 2.3% risk --> now qualifies for bisphosphonate tx, started 03/2017 Probable allergic rxn to Alendronate (1st pill Sat, Hives Th and stayed thru today (but no worsening), 07/05. Agree to STOP for now. 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 Dr Agee H/O endoscopy (~06/21/22) H/O laminectomy L5S1 H/O laminectomy (~10/06/12) L5S1 Dr. Jarrod Ballard H/O partial mastectomy (~10/26/21) Left breast History of hysterectomy, supracervical Oophrectomy, Right (~2007) For unknown reason S/P breast biopsy, left (05/09/21) u/s guided Core Bx Status post coronary artery stent placement (~01/27/21) Tooth Extractions Multiple Family History Sister Breast cancer Mother , 89 Alzheimer's dementia Breast cancer Father , AGE 75 Alcohol abuse Cirrhosis Sister Neoplasm uterine CA Sister Heart disease Brother Heart disease Niece Breast cancer Social History Smoking/Tobacco Use Status: Former Tobacco Use tobacco type: cigarettes Quit Date: 09/02/95 Tobacco: How many years used: 25 Smoking risk assessment performed?: Yes Alcohol Intake: former Details: none Drug use: Never Substance use type: does not use Adopted: No Caregiver/Support person: No Foster care: No Household members: spouse Number of Children: 4 Communication Needs: None Pets and animals: No Current gender identity: female What type of physical activity do you participate in: regular exercise Duration: < 15 minutes/day Frequency: 3-4 times per week Mell/Catholic: Evangelical Seatbelt use: always Drive intox or ride w/intox hearse driver: No Working smoke detector in home: Yes Fire extinguisher in home: Yes Carbon monox detector in home: Yes Do you feel safe at home: Yes Do you feel safe in your relationship?: Yes Additional Social history: Lives with in [place]. 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 She has 11 grandkids who all live close. History History Para Hx # Term Pregnancies Multiple births Hx # Pregnancies Ectopic pregnancies AB induced Hx Number of Living Children 4 AB spontaneous Exam Narrative Exam Narrative: 1.Const: Well-nourished, Well-developed, appearing stated age 2.Eyes: PERRL, no conjunctival injection, and symmetrical lids. 3.ENT: Atraumatic external nose and ears. Dry MM. Neck: Symmetric, trachea midline, No thyromegaly. 4.CVS: +S1/S2, No murmurs or gallops. Peripheral pulses 2+ and equal in all extremities. Brisk capillary refill in all extremities. 5.RESP: Unlabored respiratory effort. Clear to auscultation bilaterally. No wheezes rales or rhonchi 6.GI: Soft, Nontender/Nondistended, No hepatosplenomegaly. No guarding or rebound. 7.MSK: Normocephalic/Atraumatic, Extremities w/o deformity or ttp No cyanosis or clubbing, Normal movement of all extremities 8.Skin: Warm, Dry. No rashes or lesions. 9.Neuro: factory manager II-XII grossly intact. Sensation grossly intact, no focal neurologic deficits. All 6 cardinal planes of vision are fully intact. No evidence of rotatory or vertical nystagmus. Test of skew is negative for any vertical or horizontal correction. The patient demonstrated a normal [id number], good dexterity. There was no evidence of dysdiadochokinesia. Patient was able to ambulate without difficulty. There was no wide-based gait. Romberg testing was normal. [id number]-[id number] testing was normal. Sensation was intact bilaterally as well as muscle strength bilaterally for all extremities. Patient was able to verbalize butter cup with no slurring, or miss pronunciation. 10.Psych: (AAO) x3. Appropriate mood and affect Course Vital Signs Vital signs: Vital Signs Temperature 37.3 C 10/15/22 09:37 Pulse 75 10/15/22 09:37 Respiratory Rate 18 10/15/22 09:37 Blood Pressure 153/66 H 10/15/22 09:37 Pulse Oximetry 95 10/15/22 09:37 Temperature 37.3 C 10/15/22 09:37 Temperature Source Tympanic 10/15/22 09:37 Pulse 75 10/15/22 09:37 Respiratory Rate 18 10/15/22 09:37 Respiratory Effort Normal, Non-Labored 10/15/22 09:42 Blood Pressure 153/66 H 10/15/22 09:37 Blood Pressure Position Sitting 10/15/22 09:37 Pulse Oximetry 95 10/15/22 09:37 Oxygen Delivery Method Room Air 10/15/22 09:37 Oxygen Flow Rate 0 10/15/22 09:37
[2022-10-15 10:32] LABS: HGB 6.6 g/dL (11.2-15.7)
[2022-10-15 10:41] LABS: INR 0.9 (0.9-1.1); PTT Activated 19.9 sec (21.5-31.9); Prothrombin Time 9.4 sec (9.3-11.0)
[2022-10-15 10:47] LABS: Diff Comment Diff Reviewed; Hypochromasia 3+; Poikilocytes 2+; Polychromasia Present
[2022-10-15 10:54] LABS: ALT 22 U/L (14-59); AST 17 U/L (15-37); Albumin 3.9 g/dL (3.4-5.0); Alkaline Phosphatase 42 U/L (46-116); Anion Gap 7.2 mmol/L (3-11); BUN 37 mg/dL (7-18); Bilirubin, Total 0.3 mg/dL (0.2-1.0); CO2 29.8 mmol/L (21.0-32.0); CREATININE 1.7 mg/dL (0.55-1.02); Calcium 10.3 mg/dL (8.5-10.1); Chloride 103 mmol/L (98-107); Estimated GFR 31.47 (mL/min/1.73m2); Glucose 127 mg/dL (74-106); Potassium 4.5 mmol/L (3.5-5.1); Sodium 140 mmol/L (136-145); TSH (W/Ref FT4) 2.08 uIU/mL (0.36-3.74); Total Protein 7.3 g/dL (6.4-8.2); Troponin I < 50 ng/L (<or=60)
[2022-10-15 11:02] LABS: COVID-19 PCR Negative (Negative); Influenza A PCR Negative (Negative); Influenza B PCR Negative (Negative); RSV PCR Negative (Negative)
[2022-10-15 11:03] LABS: Source Nasopharynx
--- NOTE | 2022-10-15 13:44 | NUR.NOTE ---
Nursing Note: Referral faxed to [facility] Surgery for GI bleed, colonoscopy, EGD/ ROULA. Referral given to Care Management to [facility] [place] Oncology specifically Jamilah Montoya/ GI bleed/ ROULA.
[2022-10-15 14:48] LABS: Bilirubin Negative (Negative); Blood Negative (Negative); Clarity Clear (Clear); Glucose 500 mg/dL (Negative); Ketones Negative (Negative); Leukocyte Esterase Negative (Negative); Nitrite Negative (Negative); Urobilinogen 0.2 EU/dL (Up TO 0.2)
[2022-10-15 14:54] LABS: Bacteria Negative HPF (Negative); C & S Indicated? No; Casts 0-2 Hyaline LPF (Negative); Crystals Negative HPF (Negative); Epithelial Cells Few HPF (Negative); Mucus Trace (Negative); RBC Negative HPF (0-2); WBC Negative HPF (0-5)
[2022-10-15] MEDS: Pantoprazole 40 MG VIAL IVP (15:31)
[2022-10-15] MEDS: Famotidine 20 MG/2 ML VIAL IVP (15:31)
--- NOTE | 2022-10-16 15:30 | PDOC.ERCMACT ---
- If Service Date Differs Date of service: 10/16/22 Time of Service: 15:30 Care Management Activity Note Nahed is seen in the ED for anemia and weakness. At the request of ED provider, ANA ROSA coordinates a referral to [facility] [place] Oncology to assist Nahed in obtaining an appointment for further evaluation and treatment. She has Medicare and [place] of [place] for insurance.
== END 2022-10-15 17:35 | disposition home or self-care (01) ==
PROVIDERS: Emergency Provider Student in an Organized Health Care Education/Training Program; PCP Nurse Practitioner
DX: R53.1 Weakness (principal); I12.9 Hypertensive chronic kidney disease with stage 1 through stage 4 chronic kidney disease, or unspecified chronic kidney disease; E11.22 Type 2 diabetes mellitus with diabetic chronic kidney disease; N18.9 Chronic kidney disease, unspecified; D63.1 Anemia in chronic kidney disease; J44.9 Chronic obstructive pulmonary disease, unspecified; I25.10 Atherosclerotic heart disease of native coronary artery without angina pectoris; I25.2 Old myocardial infarction; E78.5 Hyperlipidemia, unspecified; Z79.82 Long term (current) use of aspirin; Z79.51 Long term (current) use of inhaled steroids; Z79.4 Long term (current) use of insulin; Z20.822 Contact with and (suspected) exposure to COVID-19; Z85.3 Personal history of malignant neoplasm of breast
CPT/HCPCS: 36416; 80053; 82962; 86850; 86900; 86901; 86920; 87637; 93005; 96361; 96374; 96375; 99284; 99285; 70450; 81003; 81015; 84443; 84484; 85025; 85610; 85730; 93010; P9016

== ENCOUNTER 2022-11-12 11:55 | Outpatient (CLI) | payer MEDICARE, BC, SELFPAY ==
--- NOTE | 2022-11-12 10:30 | DI.RAD_ITS ---
Exam(s) XR FINGER LT LITTLE EXAM: XR FINGER LT LITTLE EXAM DATE/TIME: CLINICAL HISTORY: left little finger cyst. TECHNIQUE: 2D digital imaging was performed of the left finger. Three views were obtained. PA/AP, oblique, and lateral views were obtained. COMPARISON: None. FINDINGS: BONES: No acute fracture is present. No bony destructive lesion is seen. JOINTS: No dislocation is present. Degenerative changes are seen in the interphalangeal joints with joint space narrowing and periarticular spurring. The findings are most marked at the DIP joint. SOFT TISSUE: Normal. No suspicious soft tissue calcifications are seen. IMPRESSION: Degenerative changes of the finger. DATA REPOSITORY: RADIATION DOSE DELIVERED:
== END 2022-11-12 11:56 | disposition home or self-care (01) ==
LOC: DIORS 11:55
PROVIDERS: PCP Nurse Practitioner; Referring Provider Nurse Practitioner; Visit Provider Student in an Organized Health Care Education/Training Program
DX: M67.442 Ganglion, left hand (principal); M65.332 Trigger finger, left middle finger
CPT/HCPCS: 20550; 73140; J1030

== ENCOUNTER 2022-11-27 01:54 | Outpatient (RCR) | payer MEDICARE, BC, SELFPAY ==
[2022-11-13] MEDS: Normal Saline Flush 10 ML SYR IVP (12:13)
[2022-11-13] MEDS: IRON SUCROSE COMPLEX 200 MG in Normal Saline 100 ML 440 MG IVPB (12:13)
[2022-11-20] MEDS: IRON SUCROSE COMPLEX 200 MG in Normal Saline 100 ML 440 MG IVPB (12:10)
[2022-11-20] MEDS: Normal Saline Flush 10 ML SYR IVP (12:38)
[2022-11-27] MEDS: IRON SUCROSE COMPLEX 200 MG in Normal Saline 100 ML 440 MG IVPB (11:58)
[2022-11-27] MEDS: Normal Saline Flush 10 ML SYR IVP (11:59)
== END 2022-11-30 23:59 | disposition home or self-care (01) ==
LOC: INF 01:54
PROVIDERS: PCP Nurse Practitioner; Visit Provider Nurse Practitioner Family
DX: D50.9 Iron deficiency anemia, unspecified (principal)
CPT/HCPCS: 96365; J1756

== ENCOUNTER 2022-12-04 02:45 | Outpatient (RCR) | payer MEDICARE, BC, SELFPAY ==
[2022-12-04] MEDS: Normal Saline Flush 10 ML SYR IVP (12:03)
[2022-12-04] MEDS: IRON SUCROSE COMPLEX 200 MG in Normal Saline 100 ML 440 MG IVPB (12:04)
== END 2022-12-30 23:59 | disposition home or self-care (01) ==
LOC: INF 02:45
PROVIDERS: PCP Nurse Practitioner; Visit Provider Nurse Practitioner Family
DX: D50.9 Iron deficiency anemia, unspecified (principal)
CPT/HCPCS: 96365; J1756

== ENCOUNTER 2022-12-11 12:24 | Outpatient (REF) | payer MEDICARE, BC, SELFPAY | END 2022-12-11 12:25 | disposition home or self-care (01) | LOC: LBN 12:24 | PROVIDERS: PCP Nurse Practitioner; Visit Provider Nurse Practitioner | DX: R39.89 Other symptoms and signs involving the genitourinary system (principal); R82.998 Other abnormal findings in urine | CPT/HCPCS: 87086 ==

== ENCOUNTER 2022-12-21 11:36 | Outpatient (REF) | payer MEDICARE, BC, SELFPAY ==
[2022-12-21 14:24] LABS: COVID-19 PCR Negative (Negative); Influenza A PCR Negative (Negative); Influenza B PCR Negative (Negative); RSV PCR Negative (Negative)
[2022-12-21 14:25] LABS: Source Nasopharynx
== END 2022-12-21 11:37 | disposition home or self-care (01) ==
LOC: LBN 11:36
PROVIDERS: PCP Nurse Practitioner; Visit Provider Nurse Practitioner Family
DX: R05.8 Other specified cough (principal); R68.83 Chills (without fever); Z20.822 Contact with and (suspected) exposure to COVID-19; J44.1 Chronic obstructive pulmonary disease with (acute) exacerbation
CPT/HCPCS: 87637

== ENCOUNTER 2023-01-07 04:09 | Outpatient (CLI) | payer MEDICARE, BC, SELFPAY ==
--- NOTE | 2023-01-07 15:00 | NS.NUTBLAN_ITS ---
Nahed was referred for diabetes self management education. She would like to lose weight and have more energy. 72 yo female with PMH: Dm2, Brst CA, COPD, CAD, NSTEMI, CKD, HLD and HTN. A1C (12/11/22): 6.6% Dm meds: 25 mg jardiance qd, 500 mg metformin BID, 22u lispro at meals, 63 units (32/) glargine qd. Total Daily Dose of insulin: 129 units. 1.79 units per kg ' 160 lbs BMI 31 typical weight: 145-150 lbs. Has gained 15 lbs in last year Diet Recall: B: yogurt and toast and butter, Lunch: 1/2 sandwich and home made veg soup, Dinner: meat and vegetables. No desserts or sweet beverages. Does have 2-4 cookies per week. Average carb intake per day <100 g carbs. Exercise: walks 1 hour daily CGM down load for last 14 days: average blood sugars: 161 mg/dl. Time in Range 71%, 181-250 mg/dl: 26% of time, >250 mg 2 %. No hypoglycemia. At target. Current A1C much lower than recommended by ADA for advanced age with multiple co morbidities. Total daily dose of insulin above recommendations per kg. Recommend reducing intensity of insulin regime to help with reduce insulin resistance and weight loss and maintain an A1C of <8.5%. In view of current carb intake per meal, recommend reducing glargine to 15 units AM and PM, and meal time insulin to 10 units per meal. Reviewed how to correct elevated blood sugars and how to treat hyperglcyemia and hypoglcyemia. Nahed to call in next couple days if blood sugars regularly go above 200 mg/dl. Goal is for maintaining an A1C of <8.5% and support a 1 lbs weight loss per month to goal weight of 140-150 lbs. Follow up by phone in 1 week and follow up in person for CGM download in next 3 weeks.
== END 2023-01-07 04:10 | disposition home or self-care (01) ==
PROVIDERS: PCP Nurse Practitioner; Visit Provider Dietitian, Registered
DX: E11.9 Type 2 diabetes mellitus without complications (principal); Z79.84 Long term (current) use of oral hypoglycemic drugs; Z79.4 Long term (current) use of insulin; Z71.3 Dietary counseling and surveillance
CPT/HCPCS: 97802

== ENCOUNTER 2023-01-08 06:07 | Day surgery (SDC) | payer MEDICARE, BC, SELFPAY ==
[2023-01-08 06:15] VITALS: BP 140/52; PULSE 73; RESP 16; TEMP 36.2; O2SAT 96
--- NOTE | 2023-01-08 07:18 | W.PM.DSUDISC ---
Date of service: 01/08/23 Time of Service: 07:18 Discharge Plan Disposition Patient Disposition: Home Condition: Good Discharge Details Reason For Visit: LMF Trigger, LLF CYst Attending Provider: Pablo Farr Primary Care Provider: Janina Calloway Home Meds and New Rx's Prescriptions: Continued insulin glargine [Lantus Solostar U-100 Insulin] 100 unit/mL (3 mL) insulin pen See Rx Instructions subcut BID MDD 61 units/24h Qty: 60 3RF Rx Instructions: 35 units AM and 35 units PM subcut; triamcinolone acetonide 0.1 % ointment 1 applic topical BID PRN (Reason: Apply to bilateral arm rash PRN) Qty: 80 1RF (DME) FreeStyle Basia 2 Sensor Kit See Rx Instructions .ROUTE .MEDSUPPLY Qty: 6 3RF Rx Instructions: As directed nitro See Rx Instructions .ROUTE DIRECTED Rx Instructions: as directed; clotrimazole 10 mg jihan 10 mg mucous membrane ONCE Qty: 30 4RF Rx Instructions: Use calcium carbonate 500 mg calcium (1,250 mg) tablet,chewable 500 mg PO PRN sucralfate [Carafate] 1 gram tablet 1 g PO QACHS Qty: 60 0RF Oxygen EACH NS At Night Qty: 2 0RF Patient Comments: 2 L at night and CPAP- patient states she wore these 11/10/17 multivitamin [Daily Multi-Vitamin] 1 EACH tablet 1 ea PO DAILY Patient Comments: patient states she took this roughly one week ago (DME) lancets [Sure Comfort Lancets] 1 EACH misc 1 ea Miscellaneous DAILY Qty: 1 3RF Rx Instructions: Dx: E11.9 to maintain HbA1C less than 7% cyanocobalamin (vitamin B-12) 1,000 mcg tablet 1,000 mcg PO DAILY Qty: 90 3RF (DME) FreeStyle Basia 2 Mifflin Misc See Rx Instructions .ROUTE .MEDSUPPLY Qty: 1 0RF Rx Instructions: As directed Prolia 60 mg/mL syringe 60 mg subcut [id number] letrozole 2.5 mg tablet 2.5 mg PO DAILY PRN Rx Instructions: 09/22/21 Hem/Onc prescribes. fluocinolone 0.01 % solution 1 applic topical BID (DME) Blood Glucose Test Strip See Rx Instructions .ROUTE .MEDSUPPLY Qty: 250 1RF Rx Instructions: As directed to check blood glucose three times daily. On insulin. Dispense covered brand (Freestyle Lite) Jardiance 25 mg tablet 25 mg PO DAILY AM Qty: 90 3RF Rx Instructions: Administer once daily in the morning, with or without food hydrochlorothiazide 25 mg tablet 25 mg PO DAILY AM Qty: 90 3RF montelukast [Singulair] 10 mg tablet 10 mg PO DAILY Qty: 90 3RF valsartan 160 mg tablet 160 mg PO DAILY Qty: 90 3RF Rx Instructions: Dose increase 03/12/2022 insulin lispro [Humalog KwikPen Insulin] 100 unit/mL insulin pen 22 unit subcut TID PRN (Reason: high blood sugar) Qty: 60 3RF Patient Comments: INJECT 4 UNITS UNDER THE SKIN BEFORE MEALS DIRECTED fiber supplements PO DAILY rosuvastatin 40 mg tablet 40 mg PO DAILY Qty: 90 3RF Hold Instructions: Home Medication placed on hold at Doctor's office (DME) pen needle, diabetic [BD Ultra-Fine Marina Pen Needle] 32 gauge x 5/32 needle See Rx Instructions .Route Qty: 400 3RF Rx Instructions: Use with insulin QID. Dispense covered brand e11.9 metoprolol succinate 50 mg tablet extended release 24 hr 50 mg PO DAILY Qty: 90 3RF Trelegy Ellipta 100-62.5-25 mcg blister with device 1 inh inhalation DAILY Qty: 60 8RF calcium carbonate-vitamin D3 600 mg-20 mcg (800 unit) tablet See Rx Instructions .ROUTE .COMPLEX Qty: 180 3RF Dose Instruction: TAKE TWO TABLETS BY MOUTH EVERY DAY Rx Instructions: TAKE TWO TABLETS BY MOUTH EVERY DAY magnesium oxide 400 mg (241.3 mg magnesium) tablet See Rx Instructions PO .COMPLEX Qty: 180 3RF Rx Instructions: 400 mg AM and PM as per María Mendoza cetirizine 10 mg tablet 10 mg PO DAILY Qty: 90 3RF metformin 500 mg tablet 500 mg PO BID MDD 1000 mg Qty: 180 3RF Rx Instructions: DOSED FOR RENAL FUNCTION aspirin [Aspir-81] 81 MG tablet,delayed release (DR/EC) 81 mg PO DAILY Qty: 90 pantoprazole [Protonix] 40 mg tablet,delayed release (DR/EC) 40 mg PO DAILY Qty: 60 0RF famotidine 40 mg tablet 40 mg PO DAILY Qty: 60 0RF Discharge Instructions Additional Instructions: Keep the dressings in place for 2 days. You may then remove the dressings and replace with band-aids. You may get the wounds wet after 2 days. You may work on range of motion as tolerated but do not get too aggressive with activity in the first week. Utilize Ibuprofen (up to 600mg three times a day) and Tylenol (up to 1000mg three times a day) for pain control. YOu may also apply ice. Follow-up in 1 week. Stand Alone Forms: Yordan Reyes Finger Release Referrals: Pablo Farr MD [ [facility] STAFF PHYSICIAN] - Activity:: Elevate Remove Dressings/Wound Care:: 48 hours Shower/Bathe:: 48 hours Diet:: Carb Counting Discharge Orders Discharge Orders: Discharge Order (Routine); Ordered 01/08/23 Ordered By: Pablo Farr
[2023-01-08] MEDS: Lidocaine 1% Multi-Dose W/EPI 1/100,000 50 ML VIAL (07:49)
[2023-01-08 08:00] VITALS: BP 140/47; PULSE 57; RESP 16; TEMP 36.4; O2SAT 94
[2023-01-08] MEDS: Sodium Bicarbonate 50 MEQ/50 ML VIAL (08:11)
--- NOTE | 2023-01-08 09:38 | W.PM.OP ---
Date of service: 01/08/23 Time of Service: 07:50 Operative Note Operative Note DATE OF PROCEDURE: 01/08/23 PRE-OP DIAGNOSIS: Left Middle Finger Trigger Finger Left Little Finger Digital Mucous Cyst POST-OP DIAGNOSIS: same PROCEDURE: Trigger Finger Release - Left Middle Finger Digital Mucous Cyst Excision - Left Little Finger SURGEON: Pablo Farr ANESTHESIA TYPE: Local By Surgeon Refer to Anesthesia Record ESTIMATED BLOOD LOSS: 0 PATHOLOGY: none sent COMPLICATIONS: None Patient was transported to: same day Patient's condition: stable Indications: I have seen Nahed in clinic for symptoms of a trigger finger as well as a digital mucous cyst of the little finger. The catching, clicking, locking, and pain limited function. The diagnosis of trigger finger was evident. The cyst was prominent and caused nicci with pressure or contact. The symptoms had not responded to conservative measures. I discussed trigger finger release along with cyst excision with the patient. I reviewed the risks of the procedure to include, but not limited to, bleeding, infection, pain, stiffness, incomplete release, damage to nerves or vessels, continued catching, recurrence, wound healing difficulties. Despite these risks, the patient elected to proceed. Findings: There was a tightened A1 kristy which was released. The flexor tendons were inspected and the patient was able to move the finger without any catching, clicking, or locking. The cyst was excised without difficulty and an arthrotomy was performed at the DIP joint. Procedure Description: Nahed was greeted in the preoperative holding area where the correct side was identified and marked. The consent was reviewed with the patient and signed. All questions were answered. She was taken back to the operating room. The patient was placed into the supine position on the operating room table with the left arm on an arm board. All bony prominences were well padded. No prophylactic antibiotics were administered since this was a clean, elective hand surgical case. The left arm was then prepped with Chloraprep and draped in a standard fashion with stockinette and extremity drape. A timeout to confirm correct identity, side and site, procedure, allergies, anesthesia, and medical concerns was performed. The trigger finger surgical site was marked as a longitudinal incision directly over the A1 kristy of the middle finger. This was confirmed with palpation during finger flexion. This area, overlying the metacarpal head, was then anesthetized with 1% Lidocaine. Additionally, a digital block was then performed for the little finger by injecting 1% lidocaine at the region of the A1 kristy of the little finger. The patient tolerated this well and once the anesthetic had setup, the procedure began, starting with a trigger finger. A longitudinal incision was made through skin only, approximately 1cm. The deep tissues were dissected bluntly. Once the A1 kristy and flexor tendons were identified the soft tissue including neurovascular structures were retracted medially and laterally. There were no crossing structures over the A1 kristy. The proximal edge of the kristy was identified and the kristy was incised with tenotomy scissors. There was a release of the tendons once this was fully released. The tendons were then removed from the wound and inspected. Excess synovium was resected. The tendons were then returned and the patient was asked to move the finger into deep flexion and back to extension. There was no recreation of the pre-operative symptoms. The hand was then once more inspected for any A0 kristy or area of possible constriction. The wound was then irrigated and the skin was closed with a 4-0 Nylon. Attention was then turned to the little finger. Confirmation was obtained that the anesthesia had set up and she had a complete block of her little finger. Longitudinal incision was then made over the ulnar aspect of the distal little finger. This was taken down sharply the skin. The cyst was identified. It was then removed with tenotomy scissors and traced back to the DIP joint. There is minimal fluid but abundant cystic and scar type tissue. This was removed with a rongeur. An arthrotomy was performed with a tenotomy scissors. Rongeur was once again utilized to remove any excess tissue. The wound was then irrigated. This was closed with a single 4-0 nylon suture. The wounds were dressed with gauze and a Conform dressing. The patient tolerated the procedure well and was returned to the Same Day Surgery area in a stable condition suffering no known complication.
== END 2023-01-08 08:20 | disposition home or self-care (01) ==
PROVIDERS: PCP Nurse Practitioner; Visit Provider Student in an Organized Health Care Education/Training Program
PROC: (CPT 26055; principal; 2023-01-08 07:30)
DX: M65.332 Trigger finger, left middle finger (principal)
CPT/HCPCS: 26055

== ENCOUNTER → 2023-01-17 08:56 | Outpatient (BNVA) | payer MEDICARE, BC, SELFPAY ==
--- NOTE | 2023-01-17 11:45 | TELEFU_ITS ---
Date of service: 01/17/23 Time of Service: 11:45 Nutrition Note NOTE: Spoke to Nahed on phone today. She has adjusted insulin as discussed last week and she remains in target range as recommended. Will follow up with securities underwriter as needed. Time Spent in Nutritional Counseling and Treatment: 10
== END ==
PROVIDERS: PCP Nurse Practitioner; Referring Provider Nurse Practitioner
DX: Z47.89 Encounter for other orthopedic aftercare (principal); M79.645 Pain in left finger(s)

== ENCOUNTER → 2023-02-14 10:40 | Outpatient (BNVA) | payer MEDICARE, BC, SELFPAY | PROVIDERS: PCP Nurse Practitioner; Visit Provider Internal Medicine Cardiovascular Disease | DX: I25.2 Old myocardial infarction (principal); I25.10 Atherosclerotic heart disease of native coronary artery without angina pectoris; Z95.5 Presence of coronary angioplasty implant and graft; I12.9 Hypertensive chronic kidney disease with stage 1 through stage 4 chronic kidney disease, or unspecified chronic kidney disease; E11.22 Type 2 diabetes mellitus with diabetic chronic kidney disease; N18.9 Chronic kidney disease, unspecified; J44.9 Chronic obstructive pulmonary disease, unspecified | CPT/HCPCS: 99213 ==

== ENCOUNTER 2023-03-13 02:56 | Outpatient (CLI) | payer MEDICARE, BC, SELFPAY ==
[2023-03-13 12:11] LABS: Abs Immature Grans 0.07 10^3/uL (0.0-0.06); Absolute Basophil Count 0.02 10^3/uL (0.0-0.2); Absolute Eosinophil Count 0.08 10^3/uL (0.0-0.7); Absolute Lymphocyte Count 0.74 10^3/uL (1.2-3.4); Absolute Monocyte Count 0.38 10^3/uL (0.1-0.8); Absolute Neutrophil Count 2.41 10^3/uL (1.2-6.7); Basophils % 0.5; Eosinophils % 2.2; HCT 30.5 % (36.0-46.0); HGB 9.4 g/dL (11.2-15.7); Immature Grans % 1.9; MCH 31.3 pg (27.0-33.0); MCHC 30.8 % (32.0-36.0); MCV 102 fL (80-95); Monocytes % 10.3; Neutrophils % 65.1; Platelet Count 186 10^3/uL (130-400); RDW 14.7 % (11.7-14.6); RDW-SD 54.7 fL
[2023-03-13 13:06] LABS: Ferritin 44 ng/mL (8-252)
== END 2023-03-13 02:57 | disposition home or self-care (01) ==
PROVIDERS: PCP Nurse Practitioner; Visit Provider Nurse Practitioner Adult Health
DX: D50.9 Iron deficiency anemia, unspecified (principal)
CPT/HCPCS: 36415; 82728; 85025

== ENCOUNTER 2023-03-19 16:09 | Outpatient (CLI) | payer MEDICARE, BC, SELFPAY ==
--- NOTE | 2023-03-19 15:00 | DI.US_ITS ---
Exam(s) US RENAL EXAM: US RENAL CLINICAL HISTORY: evaluate pathology,hematuria, r31.9. TECHNIQUE: Parsons scale, color and spectral Doppler were used. COMPARISON: CT CT ABDOMEN PELVIS W from 03/27/2022 FINDINGS: Renal size in cm: Right: 10.5. Left: 8.7. Echogenicity: Normal. Hydronephrosis: There is mild dilatation of the right renal pelvis. Cyst or mass: No. Nephrolithiasis: No. Other findings: None. Bladder:The urinary bladder is incompletely distended and difficult to visualize due to overlying bow el gas. No gross abnormalities identified on the limited examination of the urinary bladder. Ureteral jets: Right: Was not visualized on this examination. Left: Was not visualized on this examination. Prevoid vol:139 cc Postvoid vol:0 cc Renal color flow: Symmetric and within normal limits. IMPRESSION: 1. Mild prominence of the right renal pelvis which may represent mild hydronephrosis. Extrarenal pel vis cannot be excluded. 2. Limited visualization of the urinary bladder due to overlying bowel gas. DATA REPOSITORY:
== END 2023-03-19 16:29 ==
LOC: DI 16:10
PROVIDERS: PCP Nurse Practitioner; Visit Provider Nurse Practitioner Family
DX: R31.9 Hematuria, unspecified (principal); R93.41 Abnormal radiologic findings on diagnostic imaging of renal pelvis, ureter, or bladder
CPT/HCPCS: 76770

== ENCOUNTER 2023-03-19 16:10 | Outpatient (CLI) | payer MEDICARE, BC, SELFPAY ==
[2023-03-19 16:19] LABS: Abs Immature Grans 0.07 10^3/uL (0.0-0.06); Absolute Basophil Count 0.02 10^3/uL (0.0-0.2); Absolute Eosinophil Count 0.05 10^3/uL (0.0-0.7); Absolute Lymphocyte Count 0.95 10^3/uL (1.2-3.4); Absolute Monocyte Count 0.51 10^3/uL (0.1-0.8); Absolute Neutrophil Count 2.01 10^3/uL (1.2-6.7); Basophils % 0.6; Eosinophils % 1.4; HCT 28.5 % (36.0-46.0); HGB 8.8 g/dL (11.2-15.7); Immature Grans % 1.9; Lymphocytes % 26.3; MCH 31.3 pg (27.0-33.0); MCHC 30.9 % (32.0-36.0); MCV 101 fL (80-95); MPV 9.1 fL (8.0-11.0); Monocytes % 14.1; Neutrophils % 55.7; Platelet Count 188 10^3/uL (130-400); RBC 2.81 10^6/uL (3.93-5.22); RDW 14.2 % (11.7-14.6); RDW-SD 52.9 fL; WBC 3.61 10^3/uL (4.4-10.8)
[2023-03-19 16:29] LABS: Bilirubin Negative (Negative); Blood Small (Negative); Clarity Clear (Clear); Glucose >=1000 mg/dL (Negative); Ketones Negative (Negative); Leukocyte Esterase Trace (Negative); Nitrite Negative (Negative); Specific Gravity 1.015 (1.005-1.025); Urobilinogen 0.2 mg/dL (Up to 0.2); pH 6.5 (5-8)
[2023-03-19 16:46] LABS: Bacteria Rare HPF (Negative); C & S Indicated? Yes; Casts 0-2 Hyaline LPF (Negative); Crystals Negative HPF (Negative); Epithelial Cells Rare HPF (Negative); Mucus Negative (Negative); RBC 0-2 HPF (0-2)
[2023-03-19 17:00] LABS: Anion Gap 7.4 mmol/L (3-11); BUN 46 mg/dL (7-18); CO2 32.6 mmol/L (21.0-32.0); Calcium 9.9 mg/dL (8.5-10.1); Chloride 101 mmol/L (98-107); Estimated GFR 25.89 (mL/min/1.73m2); Glucose 162 mg/dL (74-106); Sodium 141 mmol/L (136-145)
[2023-03-19 18:58] LABS: Diff Comment RBC Morph Reviewed; Macrocytosis 1+; Polychromasia Present
== END 2023-03-19 16:11 | disposition home or self-care (01) ==
LOC: LBO 16:11
PROVIDERS: PCP Nurse Practitioner; Visit Provider Nurse Practitioner Family
DX: E11.65 Type 2 diabetes mellitus with hyperglycemia (principal); Z79.4 Long term (current) use of insulin; R31.9 Hematuria, unspecified; N39.0 Urinary tract infection, site not specified; D64.9 Anemia, unspecified
CPT/HCPCS: 36415; 76770; 80048; 81003; 81015; 85025; 87086

== ENCOUNTER 2023-03-20 05:41 | Emergency (ER) | payer MEDICARE, BC, SELFPAY ==
[2023-03-20 05:44] VITALS: BP 156/51; PULSE 89; RESP 16; TEMP 36.3
--- NOTE | 2023-03-20 05:45 | DI.CT_ITS ---
Exam(s) CT ABDOMEN PELVIS WO EXAM: CT ABDOMEN PELVIS WO CLINICAL HISTORY: flank pain. TECHNIQUE: Imaging Protocol: Axial computed tomography images with coronal and sagittal reformatted images were created and reviewed. Oral: no COMPARISON: CT CT ABDOMEN PELVIS W from 03/27/2022 FINDINGS: ABDOMEN: Lung Bases: Normal where visualized. Distal esophageal wall thickening. Focal mass visible. No fl uid Liver: Normal density. No measurable mass. Gallbladder and biliary tract: No radiodense calculus or dilation. Pancreas: Normal density, no abnormal calcifications or inflammatory process. Spleen: Normal. Kidneys: Normal size, contour and axis. No radiodense stones or obstructive uropathy. No masses seen. Adrenal glands: Stable 1 centimeter right adrenal adenoma. Lymph nodes: Within normal limits. Abdominal Aorta: Severe atherosclerotic changes. Minimal dilatation distally. Iliac arteries heavil y calcified. Atherosclerotic changes. PELVIS: Bladder: Symmetric distention, no gross wall thickening. Bowel: No obstruction or bowel wall thickening. Peritoneal cavity: No ascites, collection or mesenteric inflammatory response. Reproductive organs: Within normal limits. Bones: Stable L3 compression fracture. IMPRESSION: Wall thickening of lower esophagus. Findings could indicate esophagitis. RADIATION DOSE DELIVERED: Total DLP DATA REPOSITORY: All CT scans at this facility are submitted to the National Radiology Data Registry (NRDR) Dose Index Registry (DIR) with the [employer] (ACR). RADIATION OPTIMIZATION: All CT scans at this facility use at least one of these dose optimization te chniques: automated exposure control; mA and/or kV adjustment per patient size (includes targeted exa ms where dose is matched to clinical indication); or iterative reconstruction.
--- NOTE | 2023-03-20 05:53 | ED.GENADUL_ITS ---
Discharge Plan Disposition Patient Disposition: Home Discharge Details Clinical Impression: Back pain Primary Care Provider: Janina Calloway ED Provider: Michael Carson Home Meds and New Rx's Prescriptions: New tramadol 50 mg tablet 50 mg PO TID PRN (Reason: pain) Qty: 12 0RF Continued insulin glargine [Lantus Solostar U-100 Insulin] 100 unit/mL (3 mL) insulin pen See Rx Instructions subcut BID MDD 61 units/24h Qty: 60 3RF Rx Instructions: 35 units AM and 35 units PM subcut; triamcinolone acetonide 0.1 % ointment 1 applic topical BID PRN (Reason: Apply to bilateral arm rash PRN) Qty: 80 1RF nitroglycerin 0.4 mg tablet, sublingual 0.4 mg sublingual Q5M PRN (Reason: chest pain) Qty: 30 6RF Rx Instructions: do not exceed 3 doses per episode (DME) FreeStyle Basia 2 Sensor Kit See Rx Instructions .ROUTE .MEDSUPPLY Qty: 6 3RF Rx Instructions: As directed nitro See Rx Instructions .ROUTE DIRECTED Rx Instructions: as directed; clotrimazole 10 mg jihan 10 mg mucous membrane ONCE Qty: 30 4RF Rx Instructions: Use calcium carbonate 500 mg calcium (1,250 mg) tablet,chewable 500 mg PO PRN nitrofurantoin monohyd/m-cryst [Macrobid] 100 mg capsule 100 mg PO Q12H 5 Days Qty: 10 0RF Rx Instructions: must administer with a meal/food. Take 1 pill every 12 hours x 5 days Oxygen EACH NS At Night Qty: 2 0RF Patient Comments: 2 L at night and CPAP- patient states she wore these 11/10/17 multivitamin [Daily Multi-Vitamin] 1 EACH tablet 1 ea PO DAILY Patient Comments: patient states she took this roughly one week ago (DME) lancets [Sure Comfort Lancets] 1 EACH misc 1 ea Miscellaneous DAILY Qty: 1 3RF Rx Instructions: Dx: E11.9 to maintain HbA1C less than 7% cyanocobalamin (vitamin B-12) 1,000 mcg tablet 1,000 mcg PO DAILY Qty: 90 3RF (DME) FreeStyle Basia 2 [place] Misc See Rx Instructions .ROUTE .MEDSUPPLY Qty: 1 0RF Rx Instructions: As directed Prolia 60 mg/mL syringe 60 mg subcut [id number] letrozole 2.5 mg tablet 2.5 mg PO DAILY PRN Rx Instructions: 09/22/21 Hem/Onc prescribes. fluocinolone 0.01 % solution 1 applic topical BID ([facility] Blood Glucose Test Strip See Rx Instructions .ROUTE .MEDSUPPLY Qty: 250 1RF Rx Instructions: As directed to check blood glucose three times daily. On insulin. Dispense covered brand (Freestyle Lite) hydrochlorothiazide 25 mg tablet 25 mg PO DAILY AM Qty: 90 3RF valsartan 160 mg tablet 160 mg PO DAILY Qty: 90 3RF Rx Instructions: Dose increase 03/12/2022 insulin lispro [Humalog KwikPen Insulin] 100 unit/mL insulin pen 22 unit subcut TID PRN (Reason: high blood sugar) Qty: 60 3RF Patient Comments: INJECT 4 UNITS UNDER THE SKIN BEFORE MEALS DIRECTED fiber supplements PO DAILY rosuvastatin 40 mg tablet 40 mg PO DAILY Qty: 90 3RF Hold Instructions: Home Medication placed on hold at Doctor's office ([facility] pen needle, diabetic [BD Ultra-Fine [place] Pen Needle] 32 gauge x 5/32 needle See Rx Instructions .Route Qty: 400 3RF Rx Instructions: Use with insulin QID. Dispense covered brand e11.9 metoprolol succinate 50 mg tablet extended release 24 hr 50 mg PO DAILY Qty: 90 3RF Trelegy Ellipta 100-62.5-25 mcg blister with device 1 inh inhalation DAILY Qty: 60 8RF calcium carbonate-vitamin D3 600 mg-20 mcg (800 unit) tablet See Rx Instructions .ROUTE .COMPLEX Qty: 180 3RF Dose Instruction: TAKE TWO TABLETS BY MOUTH EVERY DAY Rx Instructions: TAKE TWO TABLETS BY MOUTH EVERY DAY magnesium oxide 400 mg (241.3 mg magnesium) tablet See Rx Instructions PO .COMPLEX Qty: 180 3RF Rx Instructions: 400 mg AM and PM as per María Mendoza cetirizine 10 mg tablet 10 mg PO DAILY Qty: 90 3RF metformin 500 mg tablet 500 mg PO BID MDD 1000 mg Qty: 180 3RF Rx Instructions: DOSED FOR RENAL FUNCTION iron sucrose [Venofer] IV Patient Comments: 01/14/23 visit Rx Instructions: as directed montelukast [Singulair] 10 mg tablet 10 mg PO DAILY Qty: 90 3RF pantoprazole [Protonix] 40 mg tablet,delayed release (DR/EC) 40 mg PO DAILY Qty: 60 3RF Jardiance 25 mg tablet 25 mg PO DAILY AM Qty: 90 3RF Rx Instructions: Administer once daily in the morning, with or without food sucralfate [Carafate] 1 gram tablet 1 g PO QACHS Qty: 60 0RF aspirin [Aspir-81] 81 MG tablet,delayed release (DR/EC) 81 mg PO DAILY Qty: 90 famotidine 40 mg tablet 40 mg PO DAILY Qty: 60 0RF Discharge Instructions Instructions: Back Pain (ED) HPI General Date/Time Provider Initiated Documentation: 03/20/23 05:43 . History of Present Illness described as moderate, Quality is described as other (pain), and is localized to the back and abdomen. Patient started experiencing this week(s) and it has been constant. HPI Narrative: 72 year old female presents to the ED with c/o persistent low back pain and urinary sx's. She says that she has had issues with back pain off and on for 5-6 years, normally related to UTIf, most recently for the past week. She was seen at walk-in clinic yesterday for the same, started on abx presumptively for UTI, and had blood work and renal US done. US noted some mild R hydro, but limited eval of bladder. Pt denies any fever/chills. No trauma. No cp/sob. Pain radiating around to her abd b/l, as well. Related Data Home Medications Medication Instructions Recorded Confirmed aspirin 81 mg tablet,delayed 81 mg PO DAILY ##90 03/30/13 03/20/23 release (Aspir-) multivitamin (Daily Multi-Vitamin 1 ea PO DAILY 03/19/17 03/20/23 tablet) lancets 28 gauge (Sure Comfort ##1 06/24/17 03/19/23 Lancets) cyanocobalamin (vitamin B-12) 1,000 mcg PO DAILY #90 tab-caps 05/07/18 03/19/23 1,000 mcg tablet flash glucose scanning reader #1 ea 05/04/21 03/19/23 ([employer] Basia 2 [place]) denosumab 60 mg/mL subcutaneous 60 mg subcut [id number] 09/25/21 03/19/23 syringe (Prolia) letrozole 2.5 mg tablet 2.5 mg PO DAILY PRN 09/25/21 03/20/23 flash glucose sensor (FreeStyle #6 ea 04/02/22 03/19/23 Basia 2 Sensor kit) fluocinolone 0.01 % topical 1 applic topical BID Itchy scalp 04/11/22 03/19/23 solution blood sugar diagnostic (Blood #250 ea 04/12/22 03/19/23 Glucose Test strips) hydrochlorothiazide 25 mg tablet 25 mg PO DAILY AM #90 tab-caps 04/17/22 03/20/23 valsartan 160 mg tablet 160 mg PO DAILY #90 tabs 04/17/22 03/20/23 insulin lispro 100 unit/mL 22 unit (0.22 mL) subcut TID PRN 04/24/22 03/20/23 subcutaneous pen (Humalog KwikPen high blood sugar #60 mL (U-100) Insulin) fiber supplements PO DAILY 05/23/22 03/19/23 insulin glargine 100 unit/mL (3 See Rx Instructions subcut BID Dx: 06/11/22 03/20/23 mL) subcutaneous pen (Lantus E11.9 to maintain HbA1c less than Solostar U-100 Insulin) 7% #60 mL rosuvastatin 40 mg tablet 40 mg PO DAILY #90 tabs 08/13/22 03/20/23 pen needle, diabetic 32 gauge x #400 ea 08/29/22 03/19/23 (BD Ultra-Fine Marina Pen Needle) famotidine 40 mg tablet 40 mg PO DAILY #60 tabs 10/15/22 03/20/23 metoprolol succinate 50 mg 50 mg PO DAILY #90 tabs 10/15/22 03/20/23 tablet,extended release 24 hr calcium carbonate 500 mg calcium 500 mg PO PRN 10/24/22 03/20/23 (1,250 mg) chewable tablet fluticasone fur. 100 mcg-umeclid 1 inh inhalation DAILY COPD #60 ea 11/05/22 03/20/23 62.5 mcg-vilant 25 mcg inhalat.powder (Trelegy Ellipta) calcium carbonate 600 mg-vitamin See Rx Instructions .Route 11/29/22 03/20/23 D3 20 mcg (800 unit) tablet .COMPLEX #180 tabs clotrimazole 10 mg jihan 10 mg mucous membrane ONCE #30 tabs 12/11/22 03/20/23 nitro See Rx Instructions .Route 12/11/22 03/19/23 DIRECTED triamcinolone acetonide 0.1 % 1 applic topical BID PRN Apply to 12/26/22 03/20/23 topical ointment bilateral arm rash PRN #80 grams cetirizine 10 mg tablet 10 mg PO DAILY #90 tabs 12/31/22 03/20/23 magnesium oxide 400 mg (241.3 mg See Rx Instructions PO .COMPLEX 12/31/22 03/20/23 magnesium) tablet low magnesium level #180 tab-caps metformin 500 mg tablet 500 mg PO BID #180 tabs 12/31/22 03/20/23 iron sucrose [Venofer] IV 01/15/23 03/19/23 montelukast 10 mg tablet 10 mg PO DAILY #90 tab-caps 01/30/23 03/20/23 (Singulair) pantoprazole 40 mg tablet,delayed 40 mg PO DAILY #60 tabs 01/30/23 03/20/23 release (Protonix) empagliflozin 25 mg tablet 25 mg PO DAILY AM #90 tab-caps 02/11/23 03/19/23 (Jardiance) nitroglycerin 0.4 mg sublingual 0.4 mg sublingual Q5M PRN chest 02/14/23 03/20/23 tablet pain #30 tabs sucralfate 1 gram tablet (Carafate) 1 g PO QACHS #60 tabs 02/27/23 03/20/23 nitrofurantoin 100 mg PO Q12H 5 days #10 caps 03/19/23 03/20/23 monohydrate/macrocrystals 100 mg capsule (Macrobid) tramadol 50 mg tablet 50 mg PO TID PRN pain #12 tabs 03/20/23 Previous Rx's Medication Instructions Recorded lancets 28 gauge (Sure Comfort ##1 06/24/17 Lancets) cyanocobalamin (vitamin B-12) 1,000 mcg PO DAILY #90 tab-caps 05/07/18 1,000 mcg tablet flash glucose scanning reader #1 ea 05/04/21 (FreeStyle Basia 2 [place]) flash glucose sensor (FreeStyle #6 ea 04/02/22 Basia 2 Sensor kit) blood sugar diagnostic (Blood #250 ea 04/12/22 Glucose Test strips) hydrochlorothiazide 25 mg tablet 25 mg PO DAILY AM #90 tab-caps 04/17/22 valsartan 160 mg tablet 160 mg PO DAILY #90 tabs 04/17/22 insulin lispro 100 unit/mL 22 unit (0.22 mL) subcut TID PRN 04/24/22 subcutaneous pen (Humalog KwikPen high blood sugar #60 mL (U-100) Insulin) insulin glargine 100 unit/mL (3 See Rx Instructions subcut BID Dx: 06/11/22 mL) subcutaneous pen (Lantus E11.9 to maintain HbA1c less than Solostar U-100 Insulin) 7% #60 mL rosuvastatin 40 mg tablet 40 mg PO DAILY #90 tabs 08/13/22 pen needle, diabetic 32 gauge x #400 ea 08/29/22 (BD Ultra-Fine [place] Pen Needle) famotidine 40 mg tablet 40 mg PO DAILY #60 tabs 10/15/22 metoprolol succinate 50 mg 50 mg PO DAILY #90 tabs 10/15/22 tablet,extended release 24 hr fluticasone fur. 100 mcg-umeclid 1 inh inhalation DAILY COPD #60 ea 11/05/22 62.5 mcg-vilant 25 mcg inhalat.powder (Trelegy Ellipta) calcium carbonate 600 mg-vitamin See Rx Instructions .Route 11/29/22 D3 20 mcg (800 unit) tablet .COMPLEX #180 tabs clotrimazole 10 mg jihan 10 mg mucous membrane ONCE #30 tabs 12/11/22 triamcinolone acetonide 0.1 % 1 applic topical BID PRN Apply to 12/26/22 topical ointment bilateral arm rash PRN #80 grams cetirizine 10 mg tablet 10 mg PO DAILY #90 tabs 12/31/22 magnesium oxide 400 mg (241.3 mg See Rx Instructions PO .COMPLEX 12/31/22 magnesium) tablet low magnesium level #180 tab-caps metformin 500 mg tablet 500 mg PO BID #180 tabs 12/31/22 montelukast 10 mg tablet 10 mg PO DAILY #90 tab-caps 01/30/23 (Singulair) pantoprazole 40 mg tablet,delayed 40 mg PO DAILY #60 tabs 01/30/23 release (Protonix) empagliflozin 25 mg tablet 25 mg PO DAILY AM #90 tab-caps 02/11/23 (Jardiance) nitroglycerin 0.4 mg sublingual 0.4 mg sublingual Q5M PRN chest 02/14/23 tablet pain #30 tabs sucralfate 1 gram tablet (Carafate) 1 g PO QACHS #60 tabs 02/27/23 nitrofurantoin 100 mg PO Q12H 5 days #10 caps 03/19/23 monohydrate/macrocrystals 100 mg capsule (Macrobid) tramadol 50 mg tablet 50 mg PO TID PRN pain #12 tabs 03/20/23 Allergies Allergy/AdvReac Type Severity Reaction Status Date / Time propylene glycol Allergy Severe Rash Verified 03/19/23 14:18 anastrozole Allergy Intermediate Verified 03/19/23 14:18 petrolatum,white Allergy Intermediate rash Verified 03/19/23 14:18 [From Petroleum Jelly] adhesive tape Allergy Unknown Skin Rash Verified 03/19/23 14:18 alendronate sodium Allergy Unknown Hives Verified 03/19/23 14:18 azithromycin AdvReac Intermediate dry heaves Verified 03/19/23 14:18 and diarrhea hydrocodone bitartrate AdvReac Intermediate Nausea Verified 03/19/23 14:18 [From Vicodin] liraglutide [From Victoza] AdvReac Intermediate diarhhea Verified 03/19/23 14:18 paraben AdvReac Intermediate Skin Rash Verified 03/19/23 14:18 quaternium 15 AdvReac Intermediate generalized Verified 03/19/23 14:18 rash roflumilast AdvReac Intermediate Diarrhea Verified 03/19/23 14:18 LANDON Inhibitors AdvReac Unknown COUGH,DYSPN Verified 03/19/23 14:18 EA oxycodone HCl [From Percocet] AdvReac Unknown NAUSEA/VOMI Verified 03/19/23 14:18 TING fragranced creams Allergy Intermediate Skin Rash Uncoded 03/19/23 14:18 parabin wax Allergy Intermediate Skin Rash Uncoded 03/19/23 14:18 diogolidinyl AdvReac Severe Skin Rash Uncoded 03/19/23 14:18 bisphenal AdvReac Intermediate Skin Rash Uncoded 03/19/23 14:18 General Stated Complaint: Nk/Back Pain BRUNA: 3 Review of Systems Narrative: CONST: no fever or chills HEENT: no sore throat SKIN: no rashes PULM: no sob, no cough CARD: no cp, no palpitations ABD: no abd pain EXTR: no swelling NEURO: No focal weakness PFSH All Active Problems (Updated 03/20/23 @ 07:40 by Michael Carson MD) Back pain (Acute) Esophageal thrush (Acute) Mucous cyst of digit of left hand (Acute) s/p excision of mucous cyst DOS: 01/08/23 Trigger finger, left middle finger (Acute) 40 mg Depo-Medrol injection: 11/12/2022 s/p trigger release DOS: 01/08/23 History of breast cancer (Acute) Dermatitis, seborrheic (Acute) 07/06/22 Dr Moreno Anemia, macrocytic (Acute) 05/03/22 Hem/Onc Note Essential hypertension (Acute 05/16/04) Microalbuminuria due to type 2 diabetes mellitus (Acute) Hyperlipidemia (Acute 03/18/07) Type 2 diabetes mellitus, with long-term current use of insulin (Acute ~1999) Renal artery stenosis, [place], bilateral (Chronic) [facility] Vascular Surgery; most recent OV 06/01/21 Atherosclerosis of both carotid arteries (Chronic 11/12/16) [facility] Vascular Surgery; most recent OV 06/01/21; Recommend annual carotid US COPD, very severe (Chronic) [facility] Pulm O2 dependent ASCVD (arteriosclerotic cardiovascular disease) (Chronic) [facility] 06/01/21 Vascular note: Asymptomatic bilateral carotid artery stenosis Non-ST elevation (NSTEMI) myocardial infarction (Acute ~12/2020) S/p proximal LCX stent placement 01/27/21 [facility] CKD (chronic kidney disease) (Chronic) Obstructive sleep apnea (Chronic 03/02/14) Bipap w/ 2L 02 09/06/2019 Medical History Allergic contact dermatitis due to other agents Allergic rhinitis Anemia (02/11/14) Suspect chronic dz/bone marrow suppression s/p breast CA tx (radiation); s/p GI workup (possible AVMs?), NL B12/folate, elevated Epo, NL retic count; chronic iron supplementation Back pain Breast cancer in female (~05/2021) R 2002, L 2004 s/p B/L partial mastectomy, XRT, & tamoxifen. 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 Smith Enteritis Headache Heart murmur 07/11/2016 echo: mild-moderate mitral regurgitation Hiatal hernia (02/11/14) Smaller portions Endoscopy 10/04 anemia (nothing found), [facility] Hypomagnesemia (03/04/17) Intraabdominal calcification (11/14/15) Incidental finding on CT 2 mm between bladder and uterus, no further eval required, [facility] Iron deficiency anemia (01/02/17) S/p colo & EGD 05/2015, then capsule endoscopy & push enteroscopy with no definitive etiology identified; 11/14/2017: repeat colonoscopy (due to return of anemia) showing a colonic angioectasia, which may have been source of bleeding & anemia (no overt bleeding found). Fe supplementation & monitor 10/29/22 Seen by [facility] Hem/Onc Leg cramps (04/01/14) Low Mg+ --> supplementation helped, but caused diarrhea; handout on dietary Mg+ given Malignant neoplasm of unspecified site of left female breast (~10/2021) 11/06/21 Dr Mcgill ([facility] Rad/Onc Office); Radiation Therapy planned 12/21/21-hormone receptor positive Osteopenia (02/14/16) DEXA 02/14/16: Fem neck t-score -1.2 --> WHO FRAX major osteoporotic 13% & hip fx 1.3% risk --> does not qualify for bisphosphonates --> Ca & vit D 03/2017 L3 compression fx --> re-calc WHO FRAX major osteoporotic 21% & hip fx 2.3% risk --> now qualifies for bisphosphonate tx, started 03/2017 Probable allergic rxn to Alendronate (1st pill Wed, Hives Th and stayed thru today (but no worsening), 07/05. Agree to STOP for now. 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 Dr Agee H/O colonoscopy (~11/02/22) 11/02/22 , 1 cecal polyp removed - f/u 10 years H/O endoscopy (~06/21/22) 11/02/22 Upper GI endoscopy H/O laminectomy L5S1 H/O laminectomy (~10/06/12) L5S1 Dr. Jarrod Ballard H/O partial mastectomy (~10/26/21) Left breast History of hysterectomy, supracervical Oophrectomy, Right (~2007) For unknown reason S/P breast biopsy, left (05/09/21) u/s guided Core Bx Status post coronary artery stent placement (~01/27/21) Tooth Extractions Multiple Family History Sister Breast cancer Mother , 89 Alzheimer's dementia Breast cancer Father , AGE 75 Alcohol abuse Cirrhosis Sister Neoplasm uterine CA Sister Heart disease Brother Heart disease Niece Breast cancer Social History Smoking/Tobacco Use Status: Former Tobacco Use tobacco type: cigarettes Quit Date: 09/02/95 Tobacco: How many years used: 25 Smoking risk assessment performed?: Yes Alcohol Intake: former Details: none Drug use: Never Substance use type: does not use Adopted: No Caregiver/Support person: No Foster care: No Household members: spouse Housing: other Number of Children: 4 Communication Needs: None Pets and animals: No Current gender identity: female What type of physical activity do you participate in: regular exercise Duration: < 15 minutes/day Frequency: 3-4 times per week Mell/Zoroastrianism: Zoroastrian Seatbelt use: always Drive intox or ride w/intox flatbed driver: No Working smoke detector in home: Yes Fire extinguisher in home: Yes Carbon monox detector in home: Yes Do you feel safe at home: Yes Do you feel safe in your relationship?: Yes Additional Social history: Lives with in [place]. 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 She has 11 grandkids who all live close. History History Para Hx # Term Pregnancies Multiple births Hx # Pregnancies Ectopic pregnancies AB induced Hx Number of Living Children 4 AB spontaneous Exam Narrative Exam Narrative: Const: well appearing, no acute distress HEENT: normocephalic, atraumatic; MMM Lungs: CTA, no wheezing or rales Heart: RRR Abd: soft, NT/ND Ext: well perfused Neuro: non-focal. Ambulates in ED with steady gait. Skin: no rashes Course Reevaluation(s) Initial Evaluation: 07 - Discussed with pt available test results, nothing acute on labs, and CT showed chronic L3 compression fx, which pt is aware of, but no other acute issues. She says pain is going into the side of her R leg now as well. Sounds radicular given this. She has DM, so will avoid steroids for now, but will give some pain meds, and to call and f/u with pcp. She was started on abx yesterday, can continue those and change as needed with culture results. Vital Signs Vital signs: Vital Signs Temperature 36.3 C L 03/20/23 05:44 Pulse 89 03/20/23 05:44 Respiratory Rate 16 03/20/23 05:44 Blood Pressure 156/51 H 03/20/23 05:44 Temperature 36.3 C L 03/20/23 05:44 Temperature Source Tympanic 03/20/23 05:44 Pulse 89 03/20/23 05:44 Respiratory Rate 16 03/20/23 05:44 Blood Pressure 156/51 H 03/20/23 05:44 Oxygen Delivery Method Room Air 03/20/23 05:44 Oxygen Flow Rate 0 03/20/23 05:44 Pain Level 9 03/20/23 05:44
[2023-03-20 06:01] LABS: Abs Immature Grans 0.11 10^3/uL (0.0-0.06); Absolute Basophil Count 0.02 10^3/uL (0.0-0.2); Absolute Eosinophil Count 0.06 10^3/uL (0.0-0.7); Absolute Lymphocyte Count 0.91 10^3/uL (1.2-3.4); Absolute Monocyte Count 0.51 10^3/uL (0.1-0.8); Basophils % 0.5; Eosinophils % 1.5; HCT 30.5 % (36.0-46.0); HGB 9.2 g/dL (11.2-15.7); Immature Grans % 2.8; Lymphocytes % 23.3; MCH 30.7 pg (27.0-33.0); MCHC 30.2 % (32.0-36.0); MCV 102 fL (80-95); MPV 8.9 fL (8.0-11.0); Neutrophils % 58.9; Platelet Count 207 10^3/uL (130-400); RDW 14.4 % (11.7-14.6); WBC 3.91 10^3/uL (4.4-10.8)
[2023-03-20] MEDS: Normal Saline 1,000 ML 1000 ML IV (06:02)
[2023-03-20] MEDS: Ketorolac 30 MG/ML VIAL 15 MG IVP (06:03)
[2023-03-20 06:26] LABS: Bilirubin Negative (Negative); Blood Small (Negative); Clarity Clear (Clear); Glucose >=1000 mg/dL (Negative); Ketones Negative (Negative); Leukocyte Esterase Trace (Negative); Nitrite Negative (Negative); Specific Gravity 1.015 (1.005-1.025); Urobilinogen 0.2 mg/dL (Up to 0.2)
[2023-03-20 06:26] LABS: ALT 29 U/L (14-59); AST 17 U/L (15-37); Albumin 4.1 g/dL (3.4-5.0); Alkaline Phosphatase 37 U/L (46-116); Anion Gap 10.4 mmol/L (3-11); BUN 44 mg/dL (7-18); Bilirubin, Total 0.3 mg/dL (0.2-1.0); CO2 29.6 mmol/L (21.0-32.0); CREATININE 1.7 mg/dL (0.55-1.02); Chloride 101 mmol/L (98-107); Estimated GFR 31.47 (mL/min/1.73m2); Glucose 202 mg/dL (74-106); Lipase 58 U/L (16-77); Potassium 3.9 mmol/L (3.5-5.1); Sodium 141 mmol/L (136-145); Total Protein 7.6 g/dL (6.4-8.2)
[2023-03-20 06:33] LABS: Epithelial Cells Many HPF (Negative); WBC 20-50 HPF (0-5)
[2023-03-20 06:34] LABS: Bacteria Few HPF (Negative); C & S Indicated? No/Sq. Contamination; Casts Negative LPF (Negative); Crystals Negative HPF (Negative); Mucus Negative (Negative)
[2023-03-20] MEDS: traMADol 50 MG TAB PO (06:56)
--- NOTE | 2023-03-20 07:04 | DI.VRAD_ITS ---
PROCEDURE INFORMATION: Exam: CT Abdomen And Pelvis Without Contrast Exam date and time: 03/20/2023 6:17 AM Age: 72 years old Clinical indication: Abdominal pain and other: Flank pain; Generalized; Prior surgery; Surgery date: 6+ months; Surgery type: Laminectomy l5 s1, hysterectomy; Patient HX: Abd pain and back pain TECHNIQUE: Imaging protocol: Computed tomography of the abdomen and pelvis without contrast. Radiation optimization: All CT scans at this facility use at least one of these dose optimization techniques: automated exposure control; mA and/or kV adjustment per patient size (includes targeted exams where dose is matched to clinical indication); or iterative reconstruction. COMPARISON: CT ABDOMEN PELVIS W 03/27/2022 12:56 PM FINDINGS: Lungs: Bilateral lower lungs are clear. Heart: Heart not enlarged. Mediastinal space: Air-containing, thickened distal esophagus. Liver: No hepatic parenchymal abnormalities noted in the unenhanced liver. Gallbladder and bile ducts: The gallbladder is normal. Pancreas: The pancreatic parenchyma appears homogeneous and unremarkable. Spleen: The spleen is normal. Adrenal glands: 1 cm right adrenal adenoma is stable in size. Left adrenal gland unremarkable. Kidneys and ureters: No renal calculi. No hydronephrosis. No perinephric stranding. No ureterectasis. Stomach and bowel: No evidence of gastric or intestinal viscus perforation or bowel obstruction. Appendix: Right intrapelvic appendix. No evidence of appendicitis. Intraperitoneal space: No free air. No significant ascites. Vasculature: Unremarkable. No abdominal aortic aneurysm. Lymph nodes: Unremarkable. No enlarged lymph nodes. Urinary bladder: Urinary bladder decompressed. Reproductive: Unremarkable as visualized. Bones/joints: Lower lumbar facet osteoarthropathy. Persistent L3 vertebral body anterior wedge compression defect. Soft tissues: Unremarkable. IMPRESSION: Distal esophageal thickening. Consider esophagitis. Dictated and Authenticated by: Perry Stinson MD. Ordering:BLANCA Rodriguez MD
[2023-03-20 07:49] VITALS: BP 128/50; PULSE 69; RESP 16; O2SAT 93
== END 2023-03-20 07:55 | disposition home or self-care (01) ==
PROVIDERS: Emergency Provider Emergency Medicine; PCP Nurse Practitioner
DX: M54.9 Dorsalgia, unspecified (principal); E11.9 Type 2 diabetes mellitus without complications
CPT/HCPCS: 80053; 83690; 96361; 96374; 99284; 74176; 81003; 81015; 85025; J1885

== ENCOUNTER 2023-03-25 10:09 | Emergency (ER) | payer MEDICARE, BC, SELFPAY ==
[2023-03-25] VITALS (28 sets, daily range): BP systolic 110–158; BP diastolic 22–123; PULSE 61–71; RESP 1–24; TEMP 36.5; O2SAT 94–100
--- NOTE | 2023-03-25 10:00 | RT.EKG_ITS ---
APPROVED REPORT Exam: Resting ECG Reason for Exam: sob Patient Location: E HR:62 bpm ECG Measurements Heart Rate 62 AXIS WI 174 P 71 QRSd 82 QRS 21 QT 409 T 46 QTc 416 Conclusion Sinus rhythm...normal P axis, V-rate 60- 99 sinus rhythm, normal axis, normal intervals, non ischemic
--- NOTE | 2023-03-25 10:15 | DI.CT_ITS ---
Exam(s) CT CHEST PE CTA EXAM: CT CHEST PE CTA CLINICAL HISTORY: shortness of breath. TECHNIQUE: Imaging Protocol: Axial CT angiography was performed with multi-slice acquisition and mu lti-planar and/or 3D reconstructions. CONTRAST MATERIAL: Intravenous: Omnipaque 350 contrast volume:70 mL. Contrast was given despite the patient's poor renal function. Concerns were discussed with the ordering physician. COMPARISON: CT CT ABDOMEN PELVIS WO from 03/20/2023 FINDINGS: Tracheobronchial tree: Patent where visualized. Pulmonary parenchyma: No consolidation or dominant measurable mass. Centrilobular emphysematous gentile es are present. Pulmonary Arteries: No evidence of filling defect to suggest pulmonary emboli. Mediastinum and Anjana: No dominant adenopathy or fluid collection is seen. There is mild thickening o f the wall of the distal esophagus. Visualized thyroid gland: Unremarkable. Pleura: No effusion or pneumothorax. Heart: The heart is not dilated. Moderate coronary artery calcification is present. No pericardial e ffusion. Aorta: Thoracic aorta non-dilated. No evidence of dissection. Upper abdomen: Unremarkable. Soft tissues: Unremarkable. Bones: Within normal limits for the patient's age. IMPRESSION: 1. No evidence of pulmonary embolism, thoracic aortic dissection or aneurysm. 2. Mild thickening of the wall of the distal esophagus. Differential considerations include an infec tious or inflammatory esophagitis or neoplasm. Upper GI or upper endoscopy should be considered for further evaluation. Please correlate clinically. 3. Findings were discussed with Dr. Ybarra at 12:30 p.m. on 03/25/2023. RADIATION DOSE DELIVERED: Total DLP DATA REPOSITORY: All CT scans at this facility are submitted to the National Radiology Data Registry (NRDR) Dose Index Registry (DIR) with the [employer] (ACR). RADIATION OPTIMIZATION: All CT scans at this facility use at least one of these dose optimization te chniques: automated exposure control; mA and/or kV adjustment per patient size (includes targeted exa ms where dose is matched to clinical indication); or iterative reconstruction.
--- NOTE | 2023-03-25 10:30 | ED.GENADUL_ITS ---
Discharge Plan Disposition Patient Disposition: Home Condition: Improving Discharge Details Chief Complaint: SOB Clinical Impression: COPD with exacerbation, Esophageal thickening Primary Care Provider: Janina Calloway ED Provider: Kai Ybarra Home Meds and New Rx's Prescriptions: No Action insulin glargine [Lantus Solostar U-100 Insulin] 100 unit/mL (3 mL) insulin pen See Rx Instructions subcut BID MDD 61 units/24h Qty: 60 3RF Rx Instructions: 35 units AM and 35 units PM subcut; triamcinolone acetonide 0.1 % ointment 1 applic topical BID PRN (Reason: Apply to bilateral arm rash PRN) Qty: 80 1RF nitroglycerin 0.4 mg tablet, sublingual 0.4 mg sublingual Q5M PRN (Reason: chest pain) Qty: 30 6RF Rx Instructions: do not exceed 3 doses per episode (DME) FreeStyle Basia 2 Sensor Kit See Rx Instructions .ROUTE .MEDSUPPLY Qty: 6 3RF Rx Instructions: As directed nitro See Rx Instructions .ROUTE DIRECTED Rx Instructions: as directed; clotrimazole 10 mg jihan 10 mg mucous membrane ONCE Qty: 30 4RF Rx Instructions: Use calcium carbonate 500 mg calcium (1,250 mg) tablet,chewable 500 mg PO PRN (DME) lancets [Sure Comfort Lancets] 28 gauge misc 1 ea Miscellaneous DAILY Qty: 100 3RF Rx Instructions: Dx: E11.9 to maintain HbA1C less than 7% Oxygen EACH NS At Night Qty: 2 0RF Patient Comments: 2 L at night and CPAP- patient states she wore these 11/10/17 multivitamin [Daily Multi-Vitamin] 1 EACH tablet 1 ea PO DAILY Patient Comments: patient states she took this roughly one week ago cyanocobalamin (vitamin B-12) 1,000 mcg tablet 1,000 mcg PO DAILY Qty: 90 3RF (DME) FreeStyle Basia 2 [place] Misc See Rx Instructions .ROUTE .MEDSUPPLY Qty: 1 0RF Rx Instructions: As directed Prolia 60 mg/mL syringe 60 mg subcut [id number] letrozole 2.5 mg tablet 2.5 mg PO DAILY PRN Rx Instructions: 09/22/21 Hem/Onc prescribes. fluocinolone 0.01 % solution 1 applic topical BID (DME) Blood Glucose Test Strip See Rx Instructions .ROUTE .MEDSUPPLY Qty: 250 1RF Rx Instructions: As directed to check blood glucose three times daily. On insulin. Dispense covered brand (Freestyle Lite) hydrochlorothiazide 25 mg tablet 25 mg PO DAILY AM Qty: 90 3RF valsartan 160 mg tablet 160 mg PO DAILY Qty: 90 3RF Rx Instructions: Dose increase 03/12/2022 insulin lispro [Humalog KwikPen Insulin] 100 unit/mL insulin pen 22 unit subcut TID PRN (Reason: high blood sugar) Qty: 60 3RF Patient Comments: INJECT 4 UNITS UNDER THE SKIN BEFORE MEALS DIRECTED fiber supplements PO DAILY rosuvastatin 40 mg tablet 40 mg PO DAILY Qty: 90 3RF Hold Instructions: Home Medication placed on hold at Doctor's office ([facility]) pen needle, diabetic [BD Ultra-Fine Marina Pen Needle] 32 gauge x 5/32 needle See Rx Instructions .Route Qty: 400 3RF Rx Instructions: Use with insulin QID. Dispense covered brand e11.9 metoprolol succinate 50 mg tablet extended release 24 hr 50 mg PO DAILY Qty: 90 3RF Trelegy Ellipta 100-62.5-25 mcg blister with device 1 inh inhalation DAILY Qty: 60 8RF calcium carbonate-vitamin D3 600 mg-20 mcg (800 unit) tablet See Rx Instructions .ROUTE .COMPLEX Qty: 180 3RF Dose Instruction: TAKE TWO TABLETS BY MOUTH EVERY DAY Rx Instructions: TAKE TWO TABLETS BY MOUTH EVERY DAY magnesium oxide 400 mg (241.3 mg magnesium) tablet See Rx Instructions PO .COMPLEX Qty: 180 3RF Rx Instructions: 400 mg AM and PM as per María Mendoza cetirizine 10 mg tablet 10 mg PO DAILY Qty: 90 3RF metformin 500 mg tablet 500 mg PO BID MDD 1000 mg Qty: 180 3RF Rx Instructions: DOSED FOR RENAL FUNCTION iron sucrose [Venofer] IV Patient Comments: 01/14/23 visit Rx Instructions: as directed montelukast [Singulair] 10 mg tablet 10 mg PO DAILY Qty: 90 3RF pantoprazole [Protonix] 40 mg tablet,delayed release (DR/EC) 40 mg PO DAILY Qty: 60 3RF Jardiance 25 mg tablet 25 mg PO DAILY AM Qty: 90 3RF Rx Instructions: Administer once daily in the morning, with or without food sucralfate [Carafate] 1 gram tablet 1 g PO QACHS Qty: 60 0RF aspirin [Aspir-81] 81 MG tablet,delayed release (DR/EC) 81 mg PO DAILY Qty: 90 tramadol 50 mg tablet 50 mg PO TID PRN (Reason: pain) Qty: 12 0RF famotidine 40 mg tablet 40 mg PO DAILY Qty: 60 0RF Discharge Instructions Instructions: COPD (Chronic Obstructive Pulmonary Disease) (ED) Additional Instructions: Please follow-up closely with your primary care physician regarding esophageal thickening. You may need to undergo upper endoscopy. Please take medications as prescribed. Return to the emergency department for any worsening symptoms Medical Decision Making 72-year-old female history of COPD presents with worsening shortness of breath, baseline 3 L nasal cannula, lungs clear bilaterally no wheezing speaking full sentences, no peripheral edema, no chest pain, primary care physician was concerned that patient may have pneumonia and/or PE. No exogenous estrogen use no history of trauma no recent travel no leg swelling. EKG normal sinus rhythm nonischemic. Given age and risk factors will obtain basic labs troponin EKG, CT PE, trial of nebs and dexamethasone consider worsening COPD versus pneumonia versus PE versus ACS pathology. 13: 43 patient feeling much better after nebs and steroids. No evidence of PE. No evidence of pneumonia. Evidence of slight esophageal thickening, patient will follow-up with primary care doctor to possibly schedule endoscopy. HPI General Date/Time Provider Initiated Documentation: 03/25/23 10:13 . HPI Narrative: 72-year-old female history of COPD presents with shortness of breath worse than baseline COPD, uses 3 L nasal cannula at home, was using nebs without benefit, primary care physician was concerned about pneumonia and/or PE. Patient does not have any history of thromboembolic disease however does have history of coronary artery disease. No recent travel, no recent injury, no exogenous estrogen use Related Data Home Medications Medication Instructions Recorded Confirmed aspirin 81 mg tablet,delayed 81 mg PO DAILY ##90 03/30/13 03/21/23 release (Aspir-) multivitamin (Daily Multi-Vitamin 1 ea PO DAILY 03/19/17 03/21/23 tablet) cyanocobalamin (vitamin B-12) 1,000 mcg PO DAILY #90 tab-caps 05/07/18 03/21/23 1,000 mcg tablet flash glucose scanning reader #1 ea 05/04/21 03/21/23 (FreeStyle Basia 2 [place]) denosumab 60 mg/mL subcutaneous 60 mg subcut [id number] 09/25/21 03/21/23 syringe (Prolia) letrozole 2.5 mg tablet 2.5 mg PO DAILY PRN 09/25/21 03/21/23 flash glucose sensor (FreeStyle #6 ea 04/02/22 03/21/23 Basia 2 Sensor kit) fluocinolone 0.01 % topical 1 applic topical BID Itchy scalp 04/11/22 03/21/23 solution blood sugar diagnostic (Blood #250 ea 04/12/22 03/21/23 Glucose Test strips) hydrochlorothiazide 25 mg tablet 25 mg PO DAILY AM #90 tab-caps 04/17/22 03/21/23 valsartan 160 mg tablet 160 mg PO DAILY #90 tabs 04/17/22 03/21/23 insulin lispro 100 unit/mL 22 unit (0.22 mL) subcut TID PRN 04/24/22 03/21/23 subcutaneous pen (Humalog KwikPen high blood sugar #60 mL (U-100) Insulin) fiber supplements PO DAILY 05/23/22 03/21/23 insulin glargine 100 unit/mL (3 See Rx Instructions subcut BID Dx: 06/11/22 03/21/23 mL) subcutaneous pen (Lantus E11.9 to maintain HbA1c less than Solostar U-100 Insulin) 7% #60 mL rosuvastatin 40 mg tablet 40 mg PO DAILY #90 tabs 08/13/22 03/21/23 pen needle, diabetic 32 gauge x #400 ea 08/29/22 03/21/23 (BD Ultra-Fine Marina Pen Needle) famotidine 40 mg tablet 40 mg PO DAILY #60 tabs 10/15/22 03/21/23 metoprolol succinate 50 mg 50 mg PO DAILY #90 tabs 10/15/22 03/21/23 tablet,extended release 24 hr calcium carbonate 500 mg calcium 500 mg PO PRN 10/24/22 03/21/23 (1,250 mg) chewable tablet fluticasone fur. 100 mcg-umeclid 1 inh inhalation DAILY COPD #60 ea 11/05/22 03/21/23 62.5 mcg-vilant 25 mcg inhalat.powder (Trelegy Ellipta) calcium carbonate 600 mg-vitamin See Rx Instructions .Route 11/29/22 03/21/23 D3 20 mcg (800 unit) tablet .COMPLEX #180 tabs clotrimazole 10 mg jihan 10 mg mucous membrane ONCE #30 tabs 12/11/22 03/21/23 nitro See Rx Instructions .Route 12/11/22 03/21/23 DIRECTED triamcinolone acetonide 0.1 % 1 applic topical BID PRN Apply to 12/26/22 03/21/23 topical ointment bilateral arm rash PRN #80 grams cetirizine 10 mg tablet 10 mg PO DAILY #90 tabs 12/31/22 03/21/23 magnesium oxide 400 mg (241.3 mg See Rx Instructions PO .COMPLEX 12/31/22 03/21/23 magnesium) tablet low magnesium level #180 tab-caps metformin 500 mg tablet 500 mg PO BID #180 tabs 12/31/22 03/21/23 iron sucrose [Venofer] IV 01/15/23 03/21/23 montelukast 10 mg tablet 10 mg PO DAILY #90 tab-caps 01/30/23 03/21/23 (Singulair) pantoprazole 40 mg tablet,delayed 40 mg PO DAILY #60 tabs 01/30/23 03/21/23 release (Protonix) empagliflozin 25 mg tablet 25 mg PO DAILY AM #90 tab-caps 02/11/23 03/21/23 (Jardiance) nitroglycerin 0.4 mg sublingual 0.4 mg sublingual Q5M PRN chest 02/14/23 03/21/23 tablet pain #30 tabs sucralfate 1 gram tablet (Carafate) 1 g PO QACHS #60 tabs 02/27/23 03/21/23 lancets 28 gauge (Sure Comfort #100 ea 03/20/23 03/20/23 Lancets) tramadol 50 mg tablet 50 mg PO TID PRN pain #12 tabs 03/20/23 03/21/23 Previous Rx's Medication Instructions Recorded cyanocobalamin (vitamin B-12) 1,000 mcg PO DAILY #90 tab-caps 05/07/18 1,000 mcg tablet flash glucose scanning reader #1 ea 05/04/21 (FreeStyle Basia 2 [place]) flash glucose sensor (FreeStyle #6 ea 04/02/22 Basia 2 Sensor kit) blood sugar diagnostic (Blood #250 ea 04/12/22 Glucose Test strips) hydrochlorothiazide 25 mg tablet 25 mg PO DAILY AM #90 tab-caps 04/17/22 valsartan 160 mg tablet 160 mg PO DAILY #90 tabs 04/17/22 insulin lispro 100 unit/mL 22 unit (0.22 mL) subcut TID PRN 04/24/22 subcutaneous pen (Humalog KwikPen high blood sugar #60 mL (U-100) Insulin) insulin glargine 100 unit/mL (3 See Rx Instructions subcut BID Dx: 06/11/22 mL) subcutaneous pen (Lantus E11.9 to maintain HbA1c less than Solostar U-100 Insulin) 7% #60 mL rosuvastatin 40 mg tablet 40 mg PO DAILY #90 tabs 08/13/22 pen needle, diabetic 32 gauge x #400 ea 08/29/22 (BD Ultra-Fine Marina Pen Needle) famotidine 40 mg tablet 40 mg PO DAILY #60 tabs 10/15/22 metoprolol succinate 50 mg 50 mg PO DAILY #90 tabs 10/15/22 tablet,extended release 24 hr fluticasone fur. 100 mcg-umeclid 1 inh inhalation DAILY COPD #60 ea 11/05/22 62.5 mcg-vilant 25 mcg inhalat.powder (Trelegy Ellipta) calcium carbonate 600 mg-vitamin See Rx Instructions .Route 11/29/22 D3 20 mcg (800 unit) tablet .COMPLEX #180 tabs clotrimazole 10 mg jihan 10 mg mucous membrane ONCE #30 tabs 12/11/22 triamcinolone acetonide 0.1 % 1 applic topical BID PRN Apply to 12/26/22 topical ointment bilateral arm rash PRN #80 grams cetirizine 10 mg tablet 10 mg PO DAILY #90 tabs 12/31/22 magnesium oxide 400 mg (241.3 mg See Rx Instructions PO .COMPLEX 12/31/22 magnesium) tablet low magnesium level #180 tab-caps metformin 500 mg tablet 500 mg PO BID #180 tabs 12/31/22 montelukast 10 mg tablet 10 mg PO DAILY #90 tab-caps 01/30/23 (Singulair) pantoprazole 40 mg tablet,delayed 40 mg PO DAILY #60 tabs 01/30/23 release (Protonix) empagliflozin 25 mg tablet 25 mg PO DAILY AM #90 tab-caps 02/11/23 (Jardiance) nitroglycerin 0.4 mg sublingual 0.4 mg sublingual Q5M PRN chest 02/14/23 tablet pain #30 tabs sucralfate 1 gram tablet (Carafate) 1 g PO QACHS #60 tabs 02/27/23 lancets 28 gauge (Sure Comfort #100 ea 03/20/23 Lancets) tramadol 50 mg tablet 50 mg PO TID PRN pain #12 tabs 03/20/23 Allergies Allergy/AdvReac Type Severity Reaction Status Date / Time propylene glycol Allergy Severe Rash Verified 03/20/23 12:54 anastrozole Allergy Intermediate Verified 03/20/23 12:54 petrolatum,white Allergy Intermediate rash Verified 03/20/23 12:54 [From Petroleum Jelly] adhesive tape Allergy Unknown Skin Rash Verified 03/20/23 12:54 alendronate sodium Allergy Unknown Hives Verified 03/20/23 12:54 azithromycin AdvReac Intermediate dry heaves Verified 03/20/23 12:54 and diarrhea hydrocodone bitartrate AdvReac Intermediate Nausea Verified 03/20/23 12:54 [From Vicodin] liraglutide [From Victoza] AdvReac Intermediate diarhhea Verified 03/20/23 12:54 paraben AdvReac Intermediate Skin Rash Verified 03/20/23 12:54 quaternium 15 AdvReac Intermediate generalized Verified 03/20/23 12:54 rash roflumilast AdvReac Intermediate Diarrhea Verified 03/20/23 12:54 LANDON Inhibitors AdvReac Unknown COUGH,DYSPN Verified 03/20/23 12:54 EA oxycodone HCl [From Percocet] AdvReac Unknown NAUSEA/VOMI Verified 03/20/23 12:54 TING fragranced creams Allergy Intermediate Skin Rash Uncoded 03/20/23 12:54 parabin wax Allergy Intermediate Skin Rash Uncoded 03/20/23 12:54 diogolidinyl AdvReac Severe Skin Rash Uncoded 03/20/23 12:54 bisphenal AdvReac Intermediate Skin Rash Uncoded 03/20/23 12:54 General Stated Complaint: SOB BRUNA: 3 Review of Systems Narrative: Review of Systems Constitutional: negative Eyes: negative ENT: negative Cardiovascular: negative Respiratory: Shortness of breath Gastrointestinal: negative : negative Musculoskeletal: negative Skin: negative Neurologic: negative Psych: negative PFSH All Active Problems (Updated 03/25/23 @ 13:44 by Kai Ybarra MD) COPD with exacerbation (Acute) Esophageal thickening (Acute) Esophagitis determined by endoscopy (Acute ~12/2022) Compression fracture of L3 vertebra (Acute ~2021) Esophageal thrush (Acute) Mucous cyst of digit of left hand (Acute ~12/2022) s/p excision of mucous cyst DOS: 01/08/23 Trigger finger, left middle finger (Acute) 40 mg Depo-Medrol injection: 11/12/2022 s/p trigger release DOS: 01/08/23 History of breast cancer (Acute) Dermatitis, seborrheic (Acute) 07/06/22 Dr Moreno Anemia, macrocytic (Acute) 05/03/22 Hem/Onc Note Essential hypertension (Acute 05/16/04) Microalbuminuria due to type 2 diabetes mellitus (Acute) Hyperlipidemia (Acute 03/18/07) Type 2 diabetes mellitus, with long-term current use of insulin (Acute ~1999) Renal artery stenosis, [place], bilateral (Chronic) [facility] Vascular Surgery; most recent OV 06/01/21 Atherosclerosis of both carotid arteries (Chronic 11/12/16) [facility] Vascular Surgery; most recent OV 06/01/21; Recommend annual carotid US COPD, very severe (Chronic) [facility] Pulm O2 dependent ASCVD (arteriosclerotic cardiovascular disease) (Chronic) [facility] 06/01/21 Vascular note: Asymptomatic bilateral carotid artery stenosis Non-ST elevation (NSTEMI) myocardial infarction (Acute ~12/2020) S/p proximal LCX stent placement 01/27/21 [facility] CKD (chronic kidney disease) (Chronic) Obstructive sleep apnea (Chronic 03/02/14) Bipap w/ 2L 02 09/06/2019 Medical History Allergic contact dermatitis due to other agents Allergic rhinitis Anemia (02/11/14) Suspect chronic dz/bone marrow suppression s/p breast CA tx (radiation); s/p GI workup (possible AVMs?), NL B12/folate, elevated Epo, NL retic count; chronic iron supplementation Back pain Breast cancer in female (~05/2021) R 2002, L 2004 s/p B/L partial mastectomy, XRT, & tamoxifen. 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 Smith Enteritis Headache Heart murmur 07/11/2016 echo: mild-moderate mitral regurgitation Hiatal hernia (02/11/14) Smaller portions Endoscopy 10/04 anemia (nothing found), [facility] Hypomagnesemia (03/04/17) Intraabdominal calcification (11/14/15) Incidental finding on CT 2 mm between bladder and uterus, no further eval required, [facility] Iron deficiency anemia (01/02/17) S/p colo & EGD 05/2015, then capsule endoscopy & push enteroscopy with no definitive etiology identified; 11/14/2017: repeat colonoscopy (due to return of anemia) showing a colonic angioectasia, which may have been source of bleeding & anemia (no overt bleeding found). Fe supplementation & monitor 10/29/22 Seen by [facility] Hem/Onc Leg cramps (04/01/14) Low Mg+ --> supplementation helped, but caused diarrhea; handout on dietary Mg+ given Malignant neoplasm of unspecified site of left female breast (~10/2021) 11/06/21 Dr Mcgill ([facility] Rad/Onc Office); Radiation Therapy planned 12/21/21-hormone receptor positive Osteopenia (02/14/16) DEXA 02/14/16: Fem neck t-score -1.2 --> WHO FRAX major osteoporotic 13% & hip fx 1.3% risk --> does not qualify for bisphosphonates --> Ca & vit D 03/2017 L3 compression fx --> re-calc WHO FRAX major osteoporotic 21% & hip fx 2.3% risk --> now qualifies for bisphosphonate tx, started 03/2017 Probable allergic rxn to Alendronate (1st pill Wed, Hives Th and stayed thru today (but no worsening), 07/05. Agree to STOP for now. 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 Dr Agee H/O colonoscopy (~11/02/22) 11/02/22 , 1 cecal polyp removed - f/u 10 years H/O endoscopy (~06/21/22) 11/02/22 Upper GI endoscopy H/O laminectomy L5S1 H/O laminectomy (~10/06/12) L5S1 Dr. Jarrod Ballard H/O partial mastectomy (~10/26/21) Left breast History of hysterectomy, supracervical Oophrectomy, Right (~2007) For unknown reason S/P breast biopsy, left (05/09/21) u/s guided Core Bx Status post coronary artery stent placement (~01/27/21) Tooth Extractions Multiple Family History Sister Breast cancer Mother , 89 Alzheimer's dementia Breast cancer Father , AGE 75 Alcohol abuse Cirrhosis Sister Neoplasm uterine CA Sister Heart disease Brother Heart disease Niece Breast cancer Social History Smoking/Tobacco Use Status: Former Tobacco Use tobacco type: cigarettes Quit Date: 09/02/95 Tobacco: How many years used: 25 Smoking risk assessment performed?: Yes Alcohol Intake: former Details: none Drug use: Never Substance use type: does not use Adopted: No Caregiver/Support person: No Foster care: No Household members: spouse Housing: other Number of Children: 4 Communication Needs: None Pets and animals: No Current gender identity: female What type of physical activity do you participate in: regular exercise Duration: < 15 minutes/day Frequency: 3-4 times per week Mell/Mandaen: Evangelical Seatbelt use: always Drive intox or ride w/intox operator and truck driver: No Working smoke detector in home: Yes Fire extinguisher in home: Yes Carbon monox detector in home: Yes Do you feel safe at home: Yes Do you feel safe in your relationship?: Yes Additional Social history: Lives with in [place]. 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 She has 11 grandkids who all live close. History History Para Hx # Term Pregnancies Multiple births Hx # Pregnancies Ectopic pregnancies AB induced Hx Number of Living Children 4 AB spontaneous Exam Narrative Exam Narrative: Physical Examination General: alert, awake, cooperative, resting comfortably, no acute distress HEENT: normocephalic, atraumatic; PERRL, EOM intact, conjunctiva normal; no nasal discharge; moist mucous membranes, oral and pharyngeal mucosa normal, tolerating secretions Neck: supple, trachea midline; full ROM Chest: normal to inspection Respiratory: normal respiratory effort, speaking in full sentences, clear to auscultation, no wheezing, rales or rhonchi Cardiac: regular rate, regular rhythm, S1S2 intact, no murmurs rubs or gallops GI: abdomen soft, non-tender, non-distended; no palpable mass or hepatosplenomegaly Skin: no lesions, rashes or trauma appreciated Neuro: AAOx3, normal speech, moving all extremities Extremities: No peripheral edema Psych: Appropriate mood and affect Course Vital Signs Vital signs: Vital Signs Temperature 36.5 C 03/25/23 10:16 Pulse 65 03/25/23 10:16 Respiratory Rate 22 03/25/23 10:16 Blood Pressure 150/38 H 03/25/23 10:16 Pulse Oximetry 100 03/25/23 10:16 Temperature 36.5 C 03/25/23 10:16 Temperature Source Temporal Artery Scan 03/25/23 10:16 Pulse 65 03/25/23 10:16 Respiratory Rate 22 03/25/23 10:16 Respiratory Effort Normal 03/25/23 10:22 Respiratory Depth Normal 03/25/23 10:22 Respiratory Pattern Normal 03/25/23 10:22 Blood Pressure 150/38 H 03/25/23 10:16 Blood Pressure Position Sitting 03/25/23 10:16 Pulse Oximetry 100 03/25/23 10:16 Oxygen Delivery Method Nasal Cannula 03/25/23 10:16 Oxygen Flow Rate 3 03/25/23 10:16
[2023-03-25] MEDS: Dexamethasone 10 MG/ML VIAL IVP (10:34)
[2023-03-25] MEDS: Albuterol/Ipratropium 3 ML UPD VIAL UPD (10:34)
[2023-03-25 10:41] LABS: Abs Immature Grans 0.13 10^3/uL (0.0-0.06); Absolute Basophil Count 0.01 10^3/uL (0.0-0.2); Absolute Eosinophil Count 0.07 10^3/uL (0.0-0.7); Absolute Lymphocyte Count 0.71 10^3/uL (1.2-3.4); Absolute Monocyte Count 0.39 10^3/uL (0.1-0.8); Absolute Neutrophil Count 2.06 10^3/uL (1.2-6.7); Basophils % 0.3; Eosinophils % 2.1; HCT 28.4 % (36.0-46.0); HGB 8.7 g/dL (11.2-15.7); Immature Grans % 3.9; Lymphocytes % 21.1; MCH 30.6 pg (27.0-33.0); MCHC 30.6 % (32.0-36.0); MCV 100 fL (80-95); MPV 9.6 fL (8.0-11.0); Monocytes % 11.6; Platelet Count 196 10^3/uL (130-400); RBC 2.84 10^6/uL (3.93-5.22); RDW 14.9 % (11.7-14.6); RDW-SD 54.7 fL; WBC 3.37 10^3/uL (4.4-10.8)
[2023-03-25 10:59] LABS: PTT Activated 21.6 sec (21.5-31.9); Prothrombin Time 9.7 sec (9.3-11.0)
[2023-03-25 11:05] LABS: ALT 27 U/L (14-59); AST 18 U/L (15-37); Albumin 4.2 g/dL (3.4-5.0); Alkaline Phosphatase 37 U/L (46-116); Anion Gap 9.4 mmol/L (3-11); BUN 42 mg/dL (7-18); Bilirubin, Total 0.4 mg/dL (0.2-1.0); CO2 29.6 mmol/L (21.0-32.0); CREATININE 1.8 mg/dL (0.55-1.02); Chloride 102 mmol/L (98-107); Estimated GFR 29.38 (mL/min/1.73m2); Glucose 94 mg/dL (74-106); NT-proBNP 494 pg/mL (<300); Potassium 4.4 mmol/L (3.5-5.1); Sodium 141 mmol/L (136-145); TSH (W/Ref FT4) 1.65 uIU/mL (0.36-3.74); Total Protein 7.8 g/dL (6.4-8.2); Troponin I < 50 ng/L (<or=60)
[2023-03-25] MEDS: Normal Saline - Diluent 50 ML VIAL IJ (12:09)
[2023-03-25] MEDS: Omnipaque 350 MG/ML 500 ML BTL-Imaging package IJ (12:11)
[2023-03-25] MEDS: Normal Saline Flush 10 ML SYR IVP (12:13)
[2023-03-25 14:06] LABS: Troponin I < 50 ng/L (<or=60)
== END 2023-03-25 14:14 | disposition home or self-care (01) ==
PROVIDERS: Emergency Provider Emergency Medicine; PCP Nurse Practitioner
DX: J44.1 Chronic obstructive pulmonary disease with (acute) exacerbation (principal); K22.89 Other specified disease of esophagus; R06.02 Shortness of breath
CPT/HCPCS: 36415; 71275; 80053; 93005; 94640; 96374; 99284; 83880; 84443; 84484; 85025; 85610; 85730; 93010; J1100; J7620

== ENCOUNTER 2023-04-03 03:47 | Outpatient (CLI) | payer MEDICARE, BC, SELFPAY ==
[2023-04-03 08:01] LABS: Abs Immature Grans 0.03 10^3/uL (0.0-0.06); Absolute Basophil Count 0.03 10^3/uL (0.0-0.2); Absolute Eosinophil Count 0.06 10^3/uL (0.0-0.7); Absolute Lymphocyte Count 0.81 10^3/uL (1.2-3.4); Absolute Monocyte Count 0.54 10^3/uL (0.1-0.8); Absolute Neutrophil Count 1.99 10^3/uL (1.2-6.7); Basophils % 0.9; Eosinophils % 1.7; HCT 27.3 % (36.0-46.0); HGB 7.9 g/dL (11.2-15.7); Immature Grans % 0.9; Lymphocytes % 23.4; MCH 28.6 pg (27.0-33.0); MCHC 28.9 % (32.0-36.0); MCV 99 fL (80-95); MPV 8.7 fL (8.0-11.0); Monocytes % 15.6; Neutrophils % 57.5; Platelet Count 192 10^3/uL (130-400); RBC 2.76 10^6/uL (3.93-5.22); RDW 14.6 % (11.7-14.6); RDW-SD 53.3 fL; WBC 3.46 10^3/uL (4.4-10.8)
[2023-04-03 08:28] LABS: Ferritin 16 ng/mL (8-252)
== END 2023-04-03 03:48 | disposition home or self-care (01) ==
PROVIDERS: PCP Nurse Practitioner; Visit Provider Nurse Practitioner Adult Health
DX: D50.9 Iron deficiency anemia, unspecified (principal)
CPT/HCPCS: 36415; 82728; 85025

== ENCOUNTER 2023-04-14 23:42 | Observation (INO) | payer MEDICARE, BC, SELFPAY ==
--- NOTE | 2023-04-14 23:30 | RT.EKG_ITS ---
APPROVED REPORT Exam: Resting ECG Reason for Exam: chest burning sensation w/inhalation Patient Location: I HR:66 bpm ECG Measurements Heart Rate 66 AXIS AZ 179 P 72 QRSd 89 QRS 20 QT 396 T 50 QTc 416 Conclusion Sinus rhythm...normal P axis, V-rate 60- 99 sinus rhtyhm, normal axis, normal intervals, consider lateral st depressions
--- NOTE | 2023-04-14 23:45 | DI.RAD_ITS ---
Exam(s) XR CHEST 2V PA LATERAL EXAM: XR CHEST 2V PA LATERAL CLINICAL HISTORY: chest buring hx of hiatal hernia and COPD. TECHNIQUE: 2D digital imaging was performed. COMPARISON: CR XR CHEST 2V PA LATERAL from 02/01/2022 FINDINGS: 2 views: Heart size is normal. The mediastinum is not widened. Coronary artery stent noted in the left side of the heart. No pulmonary edema evident. There is emphysema-COPD. No confluent infiltrates. No pleural effusion s. IMPRESSION: COPD. No confluent infiltrates. Coronary artery stent. DATA REPOSITORY: RADIATION DOSE DELIVERED:
[2023-04-14 23:46] VITALS: BP 142/60; PULSE 79; O2SAT 89
[2023-04-14 23:51] VITALS: BP 142/60; PULSE 66; RESP 26; TEMP 36.8; O2SAT 96
--- NOTE | 2023-04-14 23:51 | ED.GENADUL_ITS ---
Discharge Plan Disposition Patient Disposition: Admit to [facility] Condition: Stable Discharge Details Chief Complaint: Epigastric Pain/Over45 Clinical Impression: Acute upper GI bleed, Anemia Primary Care Provider: Janina Calloway ED Provider: Kai Ybarra Home Meds and New Rx's Prescriptions: No Action triamcinolone acetonide 0.1 % ointment 1 applic topical BID PRN (Reason: Apply to bilateral arm rash PRN) Qty: 80 1RF nitroglycerin 0.4 mg tablet, sublingual 0.4 mg sublingual Q5M PRN (Reason: chest pain) Qty: 30 6RF Rx Instructions: do not exceed 3 doses per episode nitro See Rx Instructions .ROUTE DIRECTED Rx Instructions: as directed; clotrimazole 10 mg jihan 10 mg mucous membrane ONCE Qty: 30 4RF Rx Instructions: Use calcium carbonate 500 mg calcium (1,250 mg) tablet,chewable 500 mg PO PRN (DME) lancets [Sure Comfort Lancets] 28 gauge misc 1 ea Miscellaneous DAILY Qty: 100 3RF Rx Instructions: Dx: E11.9 to maintain HbA1C less than 7% albuterol 90 mcg/actuation aerosol 90 mcg inhalation Q4H PRN insulin glargine [Lantus Solostar U-100 Insulin] 100 unit/mL (3 mL) insulin pen See Rx Instructions subcut BID Rx Instructions: 15 units AM and 15 units PM subcut; insulin lispro [Humalog KwikPen Insulin] 100 unit/mL insulin pen 11 unit subcut TID Patient Comments: INJECT 11 UNITS UNDER THE SKIN BEFORE MEALS DIRECTED metoclopramide HCl [Reglan] 10 mg tablet 10 mg PO QACHS PRN (Reason: nausea, vomiting, or bloating) Qty: 60 5RF Stiolto Respimat 2.5-2.5 mcg/actuation mist 2 puff inhalation DAILY Qty: 4 12RF Oxygen EACH NS At Night Qty: 2 0RF Patient Comments: 2 L at night and CPAP- patient states she wore these 11/10/17 multivitamin [Daily Multi-Vitamin] 1 EACH tablet 1 ea PO DAILY Patient Comments: patient states she took this roughly one week ago cyanocobalamin (vitamin B-12) 1,000 mcg tablet 1,000 mcg PO DAILY Qty: 90 3RF (DME) FreeStyle Basia 2 [place] Misc See Rx Instructions .ROUTE .MEDSUPPLY Qty: 1 0RF Rx Instructions: As directed Prolia 60 mg/mL syringe 60 mg subcut [id number] letrozole 2.5 mg tablet 2.5 mg PO DAILY PRN Rx Instructions: 09/22/21 Hem/Onc prescribes. fluocinolone 0.01 % solution 1 applic topical BID (DME) Blood Glucose Test Strip See Rx Instructions .ROUTE .MEDSUPPLY Qty: 250 1RF Rx Instructions: As directed to check blood glucose three times daily. On insulin. Dispense covered brand (Freestyle Lite) valsartan 160 mg tablet 160 mg PO DAILY Qty: 90 3RF Rx Instructions: Dose increase 03/12/2022 fiber supplements PO DAILY rosuvastatin 40 mg tablet 40 mg PO DAILY Qty: 90 3RF Hold Instructions: Home Medication placed on hold at Doctor's office ([facility]) pen needle, diabetic [BD Ultra-Fine [place] Pen Needle] 32 gauge x 5/32 needle See Rx Instructions .Route Qty: 400 3RF Rx Instructions: Use with insulin QID. Dispense covered brand e11.9 metoprolol succinate 50 mg tablet extended release 24 hr 50 mg PO DAILY Qty: 90 3RF calcium carbonate-vitamin D3 600 mg-20 mcg (800 unit) tablet See Rx Instructions .ROUTE .COMPLEX Qty: 180 3RF Dose Instruction: TAKE TWO TABLETS BY MOUTH EVERY DAY Rx Instructions: TAKE TWO TABLETS BY MOUTH EVERY DAY magnesium oxide 400 mg (241.3 mg magnesium) tablet See Rx Instructions PO .COMPLEX Qty: 180 3RF Rx Instructions: 400 mg AM and PM as per María Mendoza cetirizine 10 mg tablet 10 mg PO DAILY Qty: 90 3RF metformin 500 mg tablet 500 mg PO BID MDD 1000 mg Qty: 180 3RF Rx Instructions: DOSED FOR RENAL FUNCTION pantoprazole [Protonix] 40 mg tablet,delayed release (DR/EC) 40 mg PO DAILY Qty: 60 3RF Jardiance 25 mg tablet 25 mg PO DAILY AM Qty: 90 3RF Rx Instructions: Administer once daily in the morning, with or without food sucralfate [Carafate] 1 gram tablet 1 g PO QACHS Qty: 60 0RF (DME) FreeStyle Basia 2 Sensor Kit See Rx Instructions .ROUTE .MEDSUPPLY Qty: 6 3RF Rx Instructions: As directed hydrochlorothiazide 25 mg tablet 25 mg PO DAILY AM Qty: 90 3RF aspirin [Aspir-81] 81 MG tablet,delayed release (DR/EC) 81 mg PO DAILY Qty: 90 tramadol 50 mg tablet 50 mg PO TID PRN (Reason: pain) Qty: 12 0RF famotidine 40 mg tablet 40 mg PO DAILY Qty: 60 0RF Medical Decision Making 72-year-old female history of COPD, esophageal thickening, hiatal hernia presents with chest burning over the last day, anterior nature, no definitive shortness of breath lungs clear bilaterally, baseline 2 L nasal cannula, no cough afebrile nontoxic, neurologically intact consider symptomatic hiatal hernia versus esophagitis versus gastric reflux versus must consider atypical ACS lower suspicion for PE or pneumonia lower suspicion for pneumothorax or aortic pathology. Less likely COPD exacerbation however will treat with nebs, GI cocktail, close reassessment after labs and EKG 00: 35 patient resting comfortably hemodynamically stable. Found to have hemoglobin of 6.1, patient does have recurrent chronic anemia has had upper GI bleed in the past with cauterization 2 years ago, guaiac positive stool on examination. Will obtain type and screen PT/INR PTT, will transfuse 2 units here in department will reassess symptomatology. If stable hemodynamically will again place urgent referral to [facility] GI team for upper endoscopy 00: 47 mildly elevated troponin likely demand related in the setting of anemia. Will trend troponin. We will continue with plan for transfusion. We will contact GI team at [facility] to consider transfer given symptomatic anemia in the setting of likely upper GI bleed. 1: 17 patient remains hemodynamically stable resting comfortably. Have spoke with GI team at [facility] given no availability at hospital patient would need to be a there and back upper endoscopy procedure team will not know whether they can accept her until approximately 8 AM this morning. Recommending to continue with PPI. I have also placed a page to our general surgeon to see what our upper endoscopy interventional capabilities are here at this facility. Patient will be admitted for transfusion PPI and close follow-up with GI team. HPI General Date/Time Provider Initiated Documentation: 04/14/23 23:48 . HPI Narrative: 72-year-old female history of COPD, hiatal hernia, esophageal thickening presents with burning in her chest anterior over the last day, no nausea or vomiting, no definitive shortness of breath however is on chronic O2 2 L nasal cannula, no cough no fevers, is working on obtaining appointment for upper endoscopy to better characterize esophageal thickening and hiatal hernia Related Data Home Medications Medication Instructions Recorded Confirmed aspirin 81 mg tablet,delayed 81 mg PO DAILY ##90 03/30/13 04/15/23 release (Aspir-) multivitamin (Daily Multi-Vitamin 1 ea PO DAILY 03/19/17 04/15/23 tablet) cyanocobalamin (vitamin B-12) 1,000 mcg PO DAILY #90 tab-caps 05/07/18 04/15/23 1,000 mcg tablet flash glucose scanning reader #1 ea 05/04/21 04/08/23 ([employer] Basia 2 [place]) denosumab 60 mg/mL subcutaneous 60 mg subcut [id number] 09/25/21 04/15/23 syringe (Prolia) letrozole 2.5 mg tablet 2.5 mg PO DAILY PRN 09/25/21 04/15/23 fluocinolone 0.01 % topical 1 applic topical BID Itchy scalp 04/11/22 04/15/23 solution blood sugar diagnostic (Blood #250 ea 04/12/22 04/08/23 Glucose Test strips) valsartan 160 mg tablet 160 mg PO DAILY #90 tabs 04/17/22 04/15/23 fiber supplements PO DAILY 05/23/22 04/08/23 rosuvastatin 40 mg tablet 40 mg PO DAILY #90 tabs 08/13/22 04/15/23 pen needle, diabetic 32 gauge x #400 ea 08/29/22 04/08/23 (BD Ultra-Fine Marina Pen Needle) famotidine 40 mg tablet 40 mg PO DAILY #60 tabs 10/15/22 04/15/23 metoprolol succinate 50 mg 50 mg PO DAILY #90 tabs 10/15/22 04/15/23 tablet,extended release 24 hr calcium carbonate 500 mg calcium 500 mg PO PRN 10/24/22 04/15/23 (1,250 mg) chewable tablet calcium carbonate 600 mg-vitamin See Rx Instructions .Route 11/29/22 04/15/23 D3 20 mcg (800 unit) tablet .COMPLEX #180 tabs clotrimazole 10 mg jihan 10 mg mucous membrane ONCE #30 tabs 12/11/22 04/15/23 nitro See Rx Instructions .Route 12/11/22 04/08/23 DIRECTED triamcinolone acetonide 0.1 % 1 applic topical BID PRN Apply to 12/26/22 04/15/23 topical ointment bilateral arm rash PRN #80 grams cetirizine 10 mg tablet 10 mg PO DAILY #90 tabs 12/31/22 04/15/23 magnesium oxide 400 mg (241.3 mg See Rx Instructions PO .COMPLEX 12/31/22 04/15/23 magnesium) tablet low magnesium level #180 tab-caps metformin 500 mg tablet 500 mg PO BID #180 tabs 12/31/22 04/15/23 pantoprazole 40 mg tablet,delayed 40 mg PO DAILY #60 tabs 01/30/23 04/15/23 release (Protonix) empagliflozin 25 mg tablet 25 mg PO DAILY AM #90 tab-caps 02/11/23 04/15/23 (Jardiance) nitroglycerin 0.4 mg sublingual 0.4 mg sublingual Q5M PRN chest 02/14/23 04/14/23 tablet pain #30 tabs sucralfate 1 gram tablet (Carafate) 1 g PO QACHS #60 tabs 02/27/23 04/15/23 lancets 28 gauge (Sure Comfort #100 ea 03/20/23 04/08/23 Lancets) tramadol 50 mg tablet 50 mg PO TID PRN pain #12 tabs 03/20/23 04/15/23 flash glucose sensor (FreeStyle #6 ea 03/25/23 04/08/23 Basia 2 Sensor kit) albuterol 90 mcg/actuation aerosol 90 mcg inhalation Q4H PRN 03/27/23 04/15/23 inhaler hydrochlorothiazide 25 mg tablet 25 mg PO DAILY AM #90 tab-caps 03/28/23 04/15/23 insulin glargine 100 unit/mL (3 See Rx Instructions subcut BID Dx: 03/29/23 04/15/23 mL) subcutaneous pen (Lantus E11.9 to maintain HbA1c less than Solostar U-100 Insulin) 7% insulin lispro 100 unit/mL 11 unit subcut TID high blood sugar 03/29/23 04/15/23 subcutaneous pen (Humalog KwikPen (U-100) Insulin) metoclopramide HCl 10 mg tablet 10 mg PO QACHS PRN nausea, 03/29/23 04/15/23 (Reglan) vomiting, or bloating #60 tabs tiotropium 2.5 mcg-olodaterol 2.5 2 puff inhalation DAILY #4 grams 03/29/23 04/15/23 mcg/actuation mist for inhalation (Stiolto Respimat) Previous Rx's Medication Instructions Recorded cyanocobalamin (vitamin B-12) 1,000 mcg PO DAILY #90 tab-caps 05/07/18 1,000 mcg tablet flash glucose scanning reader #1 ea 05/04/21 ([employer] Basia 2 [place]) blood sugar diagnostic (Blood #250 ea 04/12/22 Glucose Test strips) valsartan 160 mg tablet 160 mg PO DAILY #90 tabs 04/17/22 rosuvastatin 40 mg tablet 40 mg PO DAILY #90 tabs 08/13/22 pen needle, diabetic 32 gauge x #400 ea 08/29/22 (BD Ultra-Fine Marina Pen Needle) famotidine 40 mg tablet 40 mg PO DAILY #60 tabs 10/15/22 metoprolol succinate 50 mg 50 mg PO DAILY #90 tabs 10/15/22 tablet,extended release 24 hr calcium carbonate 600 mg-vitamin See Rx Instructions .Route 11/29/22 D3 20 mcg (800 unit) tablet .COMPLEX #180 tabs clotrimazole 10 mg jihan 10 mg mucous membrane ONCE #30 tabs 12/11/22 triamcinolone acetonide 0.1 % 1 applic topical BID PRN Apply to 12/26/22 topical ointment bilateral arm rash PRN #80 grams cetirizine 10 mg tablet 10 mg PO DAILY #90 tabs 12/31/22 magnesium oxide 400 mg (241.3 mg See Rx Instructions PO .COMPLEX 12/31/22 magnesium) tablet low magnesium level #180 tab-caps metformin 500 mg tablet 500 mg PO BID #180 tabs 12/31/22 pantoprazole 40 mg tablet,delayed 40 mg PO DAILY #60 tabs 01/30/23 release (Protonix) empagliflozin 25 mg tablet 25 mg PO DAILY AM #90 tab-caps 02/11/23 (Jardiance) nitroglycerin 0.4 mg sublingual 0.4 mg sublingual Q5M PRN chest 02/14/23 tablet pain #30 tabs sucralfate 1 gram tablet (Carafate) 1 g PO QACHS #60 tabs 02/27/23 lancets 28 gauge (Sure Comfort #100 ea 03/20/23 Lancets) tramadol 50 mg tablet 50 mg PO TID PRN pain #12 tabs 03/20/23 flash glucose sensor (FreeStyle #6 ea 03/25/23 Basia 2 Sensor kit) hydrochlorothiazide 25 mg tablet 25 mg PO DAILY AM #90 tab-caps 03/28/23 metoclopramide HCl 10 mg tablet 10 mg PO QACHS PRN nausea, 03/29/23 (Reglan) vomiting, or bloating #60 tabs tiotropium 2.5 mcg-olodaterol 2.5 2 puff inhalation DAILY #4 grams 03/29/23 mcg/actuation mist for inhalation (Stiolto Respimat) Allergies Allergy/AdvReac Type Severity Reaction Status Date / Time propylene glycol Allergy Severe Rash Verified 04/08/23 11:58 anastrozole Allergy Intermediate Verified 04/08/23 11:58 petrolatum,white Allergy Intermediate rash Verified 04/08/23 11:58 [From Petroleum Jelly] adhesive tape Allergy Unknown Skin Rash Verified 04/08/23 11:58 alendronate sodium Allergy Unknown Hives Verified 04/08/23 11:58 azithromycin AdvReac Intermediate dry heaves Verified 04/08/23 11:58 and diarrhea hydrocodone bitartrate AdvReac Intermediate Nausea Verified 04/08/23 11:58 [From Vicodin] liraglutide [From Victoza] AdvReac Intermediate diarhhea Verified 04/08/23 11:58 paraben AdvReac Intermediate Skin Rash Verified 04/08/23 11:58 quaternium 15 AdvReac Intermediate generalized Verified 04/08/23 11:58 rash roflumilast AdvReac Intermediate Diarrhea Verified 04/08/23 11:58 LANDON Inhibitors AdvReac Unknown COUGH,DYSPN Verified 04/08/23 11:58 EA oxycodone HCl [From Percocet] AdvReac Unknown NAUSEA/VOMI Verified 04/08/23 11:58 TING fragranced creams Allergy Intermediate Skin Rash Uncoded 04/08/23 11:58 parabin wax Allergy Intermediate Skin Rash Uncoded 04/08/23 11:58 diogolidinyl AdvReac Severe Skin Rash Uncoded 04/08/23 11:58 bisphenal AdvReac Intermediate Skin Rash Uncoded 04/08/23 11:58 General BRUNA: 3 Review of Systems Narrative: Review of Systems Constitutional: negative Eyes: negative ENT: negative Cardiovascular: Chest burning Respiratory: negative Gastrointestinal: negative : negative Musculoskeletal: negative Skin: negative Neurologic: negative Psych: negative PFSH All Active Problems (Updated 04/15/23 @ 01:29 by Kai Ybarra MD) Acute upper GI bleed (Acute) Anemia (Chronic) Bloating (Acute) COPD with exacerbation (Acute) Esophageal thickening (Acute) Esophagitis determined by endoscopy (Acute ~12/2022) Compression fracture of L3 vertebra (Acute ~2021) Esophageal thrush (Acute) Mucous cyst of digit of left hand (Acute ~12/2022) s/p excision of mucous cyst DOS: 01/08/23 Trigger finger, left middle finger (Acute) 40 mg Depo-Medrol injection: 11/12/2022 s/p trigger release DOS: 01/08/23 History of breast cancer (Acute) Dermatitis, seborrheic (Acute) 07/06/22 Dr Moreno Anemia, macrocytic (Acute) 05/03/22 Hem/Onc Note Essential hypertension (Acute 05/16/04) Microalbuminuria due to type 2 diabetes mellitus (Acute) Hyperlipidemia (Acute 03/18/07) Type 2 diabetes mellitus, with long-term current use of insulin (Acute ~1999) Renal artery stenosis, [place], bilateral (Chronic) [facility] Vascular Surgery; most recent OV 06/01/21 Atherosclerosis of both carotid arteries (Chronic 11/12/16) [facility] Vascular Surgery; most recent OV 06/01/21; Recommend annual carotid US COPD, very severe (Chronic) [facility] Pulm O2 dependent ASCVD (arteriosclerotic cardiovascular disease) (Chronic) [facility] 06/01/21 Vascular note: Asymptomatic bilateral carotid artery stenosis Non-ST elevation (NSTEMI) myocardial infarction (Acute ~12/2020) S/p proximal LCX stent placement 01/27/21 [facility] CKD (chronic kidney disease) (Chronic) Obstructive sleep apnea (Chronic 03/02/14) Bipap w/ 2L 02 09/06/2019 Medical History Allergic contact dermatitis due to other agents Allergic rhinitis Anemia (02/11/14) Suspect chronic dz/bone marrow suppression s/p breast CA tx (radiation); s/p GI workup (possible AVMs?), NL B12/folate, elevated Epo, NL retic count; chronic iron supplementation Back pain Breast cancer in female (~05/2021) R 2002, L 2004 s/p B/L partial mastectomy, XRT, & tamoxifen. 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 Smith Enteritis Headache Heart murmur 07/11/2016 echo: mild-moderate mitral regurgitation Hiatal hernia (02/11/14) Smaller portions Endoscopy 10/04 anemia (nothing found), [facility] Hypomagnesemia (03/04/17) Intraabdominal calcification (11/14/15) Incidental finding on CT 2 mm between bladder and uterus, no further eval required, [facility] Iron deficiency anemia (01/02/17) S/p colo & EGD 05/2015, then capsule endoscopy & push enteroscopy with no definitive etiology identified; 11/14/2017: repeat colonoscopy (due to return of anemia) showing a colonic angioectasia, which may have been source of bleeding & anemia (no overt bleeding found). Fe supplementation & monitor 10/29/22 Seen by [facility] Hem/Onc Leg cramps (04/01/14) Low Mg+ --> supplementation helped, but caused diarrhea; handout on dietary Mg+ given Malignant neoplasm of unspecified site of left female breast (~10/2021) 11/06/21 Dr Mcgill ([facility] Rad/Onc Office); Radiation Therapy planned 12/21/21-hormone receptor positive Osteopenia (02/14/16) DEXA 02/14/16: Fem neck t-score -1.2 --> WHO FRAX major osteoporotic 13% & hip fx 1.3% risk --> does not qualify for bisphosphonates --> Ca & vit D 03/2017 L3 compression fx --> re-calc WHO FRAX major osteoporotic 21% & hip fx 2.3% risk --> now qualifies for bisphosphonate tx, started 03/2017 Probable allergic rxn to Alendronate (1st pill Wed, Hives Th and stayed thru today (but no worsening), 07/05. Agree to STOP for now. 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 Dr Agee H/O colonoscopy (~11/02/22) 11/02/22 , 1 cecal polyp removed - f/u 10 years H/O endoscopy (~06/21/22) 11/02/22 Upper GI endoscopy H/O laminectomy L5S1 H/O laminectomy (~10/06/12) L5S1 Dr. Jarrod Ballard H/O partial mastectomy (~10/26/21) Left breast History of hysterectomy, supracervical Oophrectomy, Right (~2007) For unknown reason S/P breast biopsy, left (05/09/21) u/s guided Core Bx Status post coronary artery stent placement (~01/27/21) Tooth Extractions Multiple Family History Sister Breast cancer Mother , 89 Alzheimer's dementia Breast cancer Father , AGE 75 Alcohol abuse Cirrhosis Sister Neoplasm uterine CA Sister Heart disease Brother Heart disease Niece Breast cancer Social History Smoking/Tobacco Use Status: Former Tobacco Use tobacco type: cigarettes Quit Date: 09/02/95 Tobacco: How many years used: 25 Smoking risk assessment performed?: Yes Alcohol Intake: former Details: none Drug use: Never Substance use type: does not use Adopted: No Caregiver/Support person: No Foster care: No Household members: spouse Housing: house Number of Children: 4 Communication Needs: None Pets and animals: No Current gender identity: female What type of physical activity do you participate in: regular exercise Duration: < 15 minutes/day Frequency: 3-4 times per week Mell/Sikhism: Protestant Seatbelt use: always Drive intox or ride w/intox driver license reviewing officer: No Working smoke detector in home: Yes Fire extinguisher in home: Yes Carbon monox detector in home: Yes Do you feel safe at home: Yes Do you feel safe in your relationship?: Yes Additional Social history: Lives with in [place]. 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 She has 11 grandkids who all live close. History History Para Hx # Term Pregnancies Multiple births Hx # Pregnancies Ectopic pregnancies AB induced Hx Number of Living Children 4 AB spontaneous Exam Narrative Exam Narrative: Physical Examination General: alert, awake, cooperative, resting comfortably, no acute distress HEENT: normocephalic, atraumatic; PERRL, EOM intact, conjunctiva normal; no nasal discharge; moist mucous membranes, oral and pharyngeal mucosa normal, tolerating secretions Neck: supple, trachea midline; full ROM Chest: normal to inspection Respiratory: normal respiratory effort, speaking in full sentences, clear to auscultation, no wheezing, rales or rhonchi Cardiac: regular rate, regular rhythm, S1S2 intact, no murmurs rubs or gallops GI: abdomen soft, non-tender, non-distended; no palpable mass or hepatosplenomegaly Skin: no lesions, rashes or trauma appreciated Neuro: AAOx3, normal speech, moving all extremities Psych: Appropriate mood and affect
[2023-04-14] MEDS: Ondansetron 4 MG/2 ML VIAL IVP (23:59)
[2023-04-14] MEDS: Famotidine 20 MG/2 ML VIAL IVP (23:59)
[2023-04-14] MEDS: Albuterol/Ipratropium 3 ML UPD VIAL 9 ML UPD (23:59)
[2023-04-15] VITALS (74 sets, daily range): BP systolic 96–157; BP diastolic 26–96; PULSE 66–92; RESP 12–33; TEMP 36.3–36.7; O2SAT 90–100
[2023-04-15] MEDS: Normal Saline 500 ML 1000 ML IV
[2023-04-15] MEDS: Mylanta Suspension 30 ML CUP PO
[2023-04-15 00:19] LABS: Abs Immature Grans 0.05 10^3/uL (0.0-0.06); Absolute Basophil Count 0.01 10^3/uL (0.0-0.2); Absolute Eosinophil Count 0.05 10^3/uL (0.0-0.7); Absolute Lymphocyte Count 0.96 10^3/uL (1.2-3.4); Absolute Monocyte Count 0.62 10^3/uL (0.1-0.8); Basophils % 0.2; Eosinophils % 1.2; HCT 21.1 % (36.0-46.0); Immature Grans % 1.2; Lymphocytes % 23.8; MCH 28.8 pg (27.0-33.0); MCHC 28.9 % (32.0-36.0); MCV 100 fL (80-95); MPV 8.8 fL (8.0-11.0); Monocytes % 15.3; Neutrophils % 58.3; Platelet Count 176 10^3/uL (130-400); RBC 2.12 10^6/uL (3.93-5.22); RDW 16.4 % (11.7-14.6); RDW-SD 59.2 fL; WBC 4.04 10^3/uL (4.4-10.8)
[2023-04-15 00:20] LABS: Absolute Neutrophil Count 2.36 10^3/uL (1.2-6.7)
[2023-04-15 00:23] LABS: HGB 6.1 g/dL (11.2-15.7)
[2023-04-15 00:40] LABS: ALT 29 U/L (14-59); AST 17 U/L (15-37); Albumin 3.6 g/dL (3.4-5.0); Alkaline Phosphatase 34 U/L (46-116); BUN 52 mg/dL (7-18); Bilirubin, Total 0.2 mg/dL (0.2-1.0); CREATININE 2.3 mg/dL (0.55-1.02); Calcium 9.5 mg/dL (8.5-10.1); Chloride 102 mmol/L (98-107); Glucose 165 mg/dL (74-106); Potassium 4.5 mmol/L (3.5-5.1); Sodium 140 mmol/L (136-145); Total Protein 6.8 g/dL (6.4-8.2)
[2023-04-15 00:41] LABS: Troponin I 62 ng/L (<or=60)
[2023-04-15] MEDS: Pantoprazole 40 MG VIAL 80 MG IVP (00:51)
[2023-04-15 01:01] LABS: INR 0.9 (0.9-1.1); PTT Activated 21.4 sec (21.5-31.9); Prothrombin Time 9.6 sec (9.3-11.0)
--- NOTE | 2023-04-15 01:37 | DI.VRAD_ITS ---
PROCEDURE INFORMATION: Exam: XR Chest Exam date and time: 04/15/2023 1:06 AM Age: 72 years old Clinical indication: Other: Chest burning, HX of hiatal hernia \T\ copd TECHNIQUE: Imaging protocol: Radiologic exam of the chest. Views: 2 views. COMPARISON: CT CHEST PE CTA 03/25/2023 12:07 PM FINDINGS: Lungs: Hyperinflation consistent with underlying emphysema/COPD. Mild chronic interstitial lung changes. No acute infiltrates. No edema. Pleural spaces: No pleural effusion. Heart/Mediastinum: Normal heart size. Previous coronary artery stent. Bones/joints: Degenerative thoracic spine skeletal changes. IMPRESSION: 1. No acute infiltrates or edema. 2. Hyperinflation suggesting COPD/emphysema. 3. Coronary artery endovascular stent. 4. Degenerative thoracic spine. Dictated and Authenticated by: Fadi Nieves MD. Ordering:ESTHER Quinn MD
--- NOTE | 2023-04-15 02:00 | W.PM.HP.N ---
Date of service: 04/15/23 Time of Service: 02:01 Assessment and Plan Assessment and plan (1) Acute upper GI bleed: Status: Acute Assessment and plan: UGI bleed. Sounds like slow bleed over past month probably, based on progressive anemia and symptoms, though as mentioned patient has not noted melena. There appears to be as well a distinct coronary syndrome, but this is almost certainly type 2 demand ischemia. 1. UGI bleed: PPI, hold ASA, transfuse 2 units now (will likely need more), NPO for presumed EGD in AM. Have requested second large bore IV from ER. 2. Demand ischemia: trend troponins, follow clinically 3. DM: hold insulin while NPO, monitor on SS 4. HTN: hold ARB and beta aaron until clear that hemodynamics stable. ADs: remains Full Code History of Present Illness History of Present Illness Chief Complaint: chest burning Narrative: 72 female with h/o DM, CAD, breast cancer, and prior UGI bleed of unspecified etiology (except that she states source was in her stomach). She was seen here last month for COPD exacerbation and incidental finding on CT of distal esophageal thickening. Hct at that time was 30 and has been drifting down since. With that much as background, patient comes in tonight reporting one month of a burning feeling her chest, radiating to throat, which is sometimes related to eating, but not always. Additionally she reports a distinct pressure in chest which occurs more with exertion. Beyond this she reports exertional dyspnea, needing to go so far as to use what is usually hs only oxygen during the day as well. Also reports generalized fatigue. All this has been progressive and she came in tonight simply because it all seemed worse. No prolonged episodes of CP though. She denies melena. In ER findings of note for Hct of 21 with melanotic, heme+ stool. Troponin marginally elevated at 62, and EKG shows NSR though with some downsloping of ST segment in lateral leads, though the segment is isoelectric at takeoff. GI consulted at [facility] and advised they would likely be able to take her for down and back EGD in AM but would not know schedule until 8AM, at which time they would contact us. Call placed to surgery, awaiting call back. I was asked to evaluate for admission. At present patient states she feels comfortable, no pressure or burning in chest, no SOB at rest. Just feels fatigued. Review of Systems Narrative: per HPI PFSH All Active Problems Acute upper GI bleed (Acute) Anemia (Chronic) Bloating (Acute) COPD with exacerbation (Acute) Esophageal thickening (Acute) Esophagitis determined by endoscopy (Acute ~12/2022) Compression fracture of L3 vertebra (Acute ~2021) Esophageal thrush (Acute) Mucous cyst of digit of left hand (Acute ~12/2022) s/p excision of mucous cyst DOS: 01/08/23 Trigger finger, left middle finger (Acute) 40 mg Depo-Medrol injection: 11/12/2022 s/p trigger release DOS: 01/08/23 History of breast cancer (Acute) Dermatitis, seborrheic (Acute) 07/06/22 Dr Moreno Anemia, macrocytic (Acute) 05/03/22 Hem/Onc Note Essential hypertension (Acute 05/16/04) Microalbuminuria due to type 2 diabetes mellitus (Acute) Hyperlipidemia (Acute 03/18/07) Type 2 diabetes mellitus, with long-term current use of insulin (Acute ~1999) Renal artery stenosis, [place], bilateral (Chronic) [facility] Vascular Surgery; most recent OV 06/01/21 Atherosclerosis of both carotid arteries (Chronic 11/12/16) [facility] Vascular Surgery; most recent OV 06/01/21; Recommend annual carotid US COPD, very severe (Chronic) [facility] Pulm O2 dependent ASCVD (arteriosclerotic cardiovascular disease) (Chronic) [facility] 06/01/21 Vascular note: Asymptomatic bilateral carotid artery stenosis Non-ST elevation (NSTEMI) myocardial infarction (Acute ~12/2020) S/p proximal LCX stent placement 01/27/21 [facility] CKD (chronic kidney disease) (Chronic) Obstructive sleep apnea (Chronic 03/02/14) Bipap w/ 2L 02 09/06/2019 Medical History Allergic contact dermatitis due to other agents Allergic rhinitis Anemia (02/11/14) Suspect chronic dz/bone marrow suppression s/p breast CA tx (radiation); s/p GI workup (possible AVMs?), NL B12/folate, elevated Epo, NL retic count; chronic iron supplementation Back pain Breast cancer in female (~05/2021) R 2002, L 2003 s/p B/L partial mastectomy, XRT, & tamoxifen. 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 Smith Enteritis Headache Heart murmur 07/11/2016 echo: mild-moderate mitral regurgitation Hiatal hernia (02/11/14) Smaller portions Endoscopy 10/04 anemia (nothing found), [facility] Hypomagnesemia (03/04/17) Intraabdominal calcification (11/14/15) Incidental finding on CT 2 mm between bladder and uterus, no further eval required, [facility] Iron deficiency anemia (01/02/17) S/p colo & EGD 05/2015, then capsule endoscopy & push enteroscopy with no definitive etiology identified; 11/14/2017: repeat colonoscopy (due to return of anemia) showing a colonic angioectasia, which may have been source of bleeding & anemia (no overt bleeding found). Fe supplementation & monitor 10/29/22 Seen by [facility] Hem/Onc Leg cramps (04/01/14) Low Mg+ --> supplementation helped, but caused diarrhea; handout on dietary Mg+ given Malignant neoplasm of unspecified site of left female breast (~10/2021) 11/06/21 Dr Mcgill ([facility] Rad[facility]Onc [facility]); Radiation Therapy planned 12/21/21-hormone receptor positive Osteopenia (02/14/16) DEXA 02/14/16: Fem neck t-score -1.2 --> WHO FRAX major osteoporotic 13% & hip fx 1.3% risk --> does not qualify for bisphosphonates --> Ca & vit D 03/2017 L3 compression fx --> re-calc WHO FRAX major osteoporotic 21% & hip fx 2.3% risk --> now qualifies for bisphosphonate tx, started 03/2017 Probable allergic rxn to Alendronate (1st pill Sat, and stayed thru today (but no worsening), 07/05. Agree to STOP for now. 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 Dr Agee H/O colonoscopy (~11/02/22) 11/02/22 , 1 cecal polyp removed - f/u 10 years H/O endoscopy (~06/21/22) 11/02/22 Upper GI endoscopy H/O laminectomy L5S1 H/O laminectomy (~10/06/12) L5S1 Dr. Jarrod Ballard H/O partial mastectomy (~10/26/21) Left breast History of hysterectomy, supracervical Oophrectomy, Right (~2007) For unknown reason S/P breast biopsy, left (05/09/21) u/s guided Core Bx Status post coronary artery stent placement (~01/27/21) Tooth Extractions Multiple Family History Sister Breast cancer Mother , 89 Alzheimer's dementia Breast cancer Father , AGE 75 Alcohol abuse Cirrhosis Sister Neoplasm uterine CA Sister Heart disease Brother Heart disease Niece Breast cancer Social History Smoking/Tobacco Use Status: Former Tobacco Use tobacco type: cigarettes Quit Date: 09/02/95 Tobacco: How many years used: 25 Smoking risk assessment performed?: Yes Alcohol Intake: former Details: none Drug use: Never Substance use type: does not use Adopted: No Caregiver/Support person: No Foster care: No Household members: spouse Housing: house Number of Children: 4 Communication Needs: None Pets and animals: No Current gender identity: female What type of physical activity do you participate in: regular exercise Duration: < 15 minutes/day Frequency: 3-4 times per week Mell/Jew: Hinduism Seatbelt use: always Drive intox or ride w/intox home delivery driver: No Working smoke detector in home: Yes Fire extinguisher in home: Yes Carbon monox detector in home: Yes Do you feel safe at home: Yes Do you feel safe in your relationship?: Yes Additional Social history: Lives with in [place]. 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 She has 11 grandkids who all live close. History History Para Hx # Term Pregnancies Multiple births Hx # Pregnancies Ectopic pregnancies AB induced Hx Number of Living Children 4 AB spontaneous Meds Allergies and Home Medications Allergies Allergy/AdvReac Type Severity Reaction Status Date / Time propylene glycol Allergy Severe Rash Verified 04/08/23 11:58 anastrozole Allergy Intermediate Verified 04/08/23 11:58 petrolatum,white Allergy Intermediate rash Verified 04/08/23 11:58 [From Petroleum Jelly] adhesive tape Allergy Unknown Skin Rash Verified 04/08/23 11:58 alendronate sodium Allergy Unknown Hives Verified 04/08/23 11:58 azithromycin AdvReac Intermediate dry heaves Verified 04/08/23 11:58 and diarrhea hydrocodone bitartrate AdvReac Intermediate Nausea Verified 04/08/23 11:58 [From Vicodin] liraglutide [From Victoza] AdvReac Intermediate diarhhea Verified 04/08/23 11:58 paraben AdvReac Intermediate Skin Rash Verified 04/08/23 11:58 quaternium 15 AdvReac Intermediate generalized Verified 04/08/23 11:58 rash roflumilast AdvReac Intermediate Diarrhea Verified 04/08/23 11:58 LANDON Inhibitors AdvReac Unknown COUGH,DYSPN Verified 04/08/23 11:58 EA oxycodone HCl [From Percocet] AdvReac Unknown NAUSEA/VOMI Verified 04/08/23 11:58 TING fragranced creams Allergy Intermediate Skin Rash Uncoded 04/08/23 11:58 parabin wax Allergy Intermediate Skin Rash Uncoded 04/08/23 11:58 diogolidinyl AdvReac Severe Skin Rash Uncoded 04/08/23 11:58 bisphenal AdvReac Intermediate Skin Rash Uncoded 04/08/23 11:58 Home Medications Medication Instructions Recorded Confirmed Type aspirin 81 mg tablet,delayed 81 mg PO DAILY ##90 03/30/13 04/15/23 History release (Aspir-) Oxygen l NS At Night ##2 04/19/16 02/19/19 Clinic multivitamin (Daily Multi-Vitamin 1 ea PO DAILY 03/19/17 04/15/23 History tablet) cyanocobalamin (vitamin B-12) 1,000 mcg PO DAILY #90 tab-caps 05/07/18 04/15/23 Rx 1,000 mcg tablet flash glucose scanning reader #1 ea 05/04/21 04/08/23 Rx (SkyeTek Basia 2 [place]) denosumab 60 mg/mL subcutaneous 60 mg subcut [id number] 09/25/21 04/15/23 History syringe (Prolia) letrozole 2.5 mg tablet 2.5 mg PO DAILY PRN 09/25/21 04/15/23 History fluocinolone 0.01 % topical 1 applic topical BID Itchy scalp 04/11/22 04/15/23 History solution blood sugar diagnostic (Blood #250 ea 04/12/22 04/08/23 Rx Glucose Test strips) valsartan 160 mg tablet 160 mg PO DAILY #90 tabs 04/17/22 04/15/23 Rx fiber supplements PO DAILY 05/23/22 04/08/23 History rosuvastatin 40 mg tablet 40 mg PO DAILY #90 tabs 08/13/22 04/15/23 Rx pen needle, diabetic 32 gauge x #400 ea 08/29/22 04/08/23 Rx 5/32 (BD Ultra-Fine Marina Pen Needle) famotidine 40 mg tablet 40 mg PO DAILY #60 tabs 10/15/22 04/15/23 Rx metoprolol succinate 50 mg 50 mg PO DAILY #90 tabs 10/15/22 04/15/23 Rx tablet,extended release 24 hr calcium carbonate 500 mg calcium 500 mg PO PRN 10/24/22 04/15/23 History (1,250 mg) chewable tablet calcium carbonate 600 mg-vitamin See Rx Instructions .Route 11/29/22 04/15/23 Rx D3 20 mcg (800 unit) tablet .COMPLEX #180 tabs clotrimazole 10 mg jihan 10 mg mucous membrane ONCE #30 tabs 12/11/22 04/15/23 Rx nitro See Rx Instructions .Route 12/11/22 04/08/23 History DIRECTED triamcinolone acetonide 0.1 % 1 applic topical BID PRN Apply to 12/26/22 04/15/23 Rx topical ointment bilateral arm rash PRN #80 grams cetirizine 10 mg tablet 10 mg PO DAILY #90 tabs 12/31/22 04/15/23 Rx magnesium oxide 400 mg (241.3 mg See Rx Instructions PO .COMPLEX 12/31/22 04/15/23 Rx magnesium) tablet low magnesium level #180 tab-caps metformin 500 mg tablet 500 mg PO BID #180 tabs 12/31/22 04/15/23 Rx pantoprazole 40 mg tablet,delayed 40 mg PO DAILY #60 tabs 01/30/23 04/15/23 Rx release (Protonix) empagliflozin 25 mg tablet 25 mg PO DAILY AM #90 tab-caps 02/11/23 04/15/23 Rx (Jardiance) nitroglycerin 0.4 mg sublingual 0.4 mg sublingual Q5M PRN chest 02/14/23 04/14/23 Rx tablet pain #30 tabs sucralfate 1 gram tablet (Carafate) 1 g PO QACHS #60 tabs 02/27/23 04/15/23 Rx lancets 28 gauge (Sure Comfort #100 ea 03/20/23 04/08/23 Rx Lancets) tramadol 50 mg tablet 50 mg PO TID PRN pain #12 tabs 03/20/23 04/15/23 Rx flash glucose sensor (FreeStyle #6 ea 03/25/23 04/08/23 Rx Basia 2 Sensor kit) albuterol 90 mcg/actuation aerosol 90 mcg inhalation Q4H PRN 03/27/23 04/15/23 History inhaler hydrochlorothiazide 25 mg tablet 25 mg PO DAILY AM #90 tab-caps 03/28/23 04/15/23 Rx insulin glargine 100 unit/mL (3 See Rx Instructions subcut BID Dx: 03/29/23 04/15/23 History mL) subcutaneous pen (Lantus E11.9 to maintain HbA1c less than Solostar U-100 Insulin) 7% insulin lispro 100 unit/mL 11 unit subcut TID high blood sugar 03/29/23 04/15/23 History subcutaneous pen (Humalog KwikPen (U-100) Insulin) metoclopramide HCl 10 mg tablet 10 mg PO QACHS PRN nausea, 03/29/23 04/15/23 Rx (Reglan) vomiting, or bloating #60 tabs tiotropium 2.5 mcg-olodaterol 2.5 2 puff inhalation DAILY #4 grams 03/29/23 04/15/23 Rx mcg/actuation mist for inhalation (Stiolto Respimat) Exam Narrative Exam Narrative: 122/28, 86, 36.8, 20, 97% RA. Patient appears pale. HEENT atrtaumatic; neck supple; lungs diminished; heart RRRT; abdomen soft and NT; rectal (per ER) melanotic stool, heme+; extremities w/o edema; neuro Ox3, lucid, moves all 4s Results Labs 04/15/23 00:10 04/15/23 00:10 Labs: Laboratory Results - last 24 hr 04/15/23 04/15/23 04/15/23 00:10 00:10 00:10 WBC 4.04 L RBC 2.12 L Hgb 6.1 L* Hct 21.1 L MCV 100 H MCH 28.8 MCHC 28.9 L RDW 16.4 H Plt Count 176 MPV 8.8 Immature Gran % 1.2 Neutrophils % 58.3 Lymphocytes % 23.8 Monocytes % 15.3 Eosinophils % 1.2 Basophils % 0.2 Nucleated RBC % 0.0 Absolute Neutrophils 2.36 Absolute Lymphocytes 0.96 L Absolute Monocytes 0.62 Absolute Eosinophils 0.05 Absolute Basophils 0.01 PT 9.6 INR 0.9 APTT 21.4 L Sodium 140 Potassium 4.5 Chloride 102 Carbon Dioxide 28.0 Anion Gap 10.0 BUN 52 H Creatinine 2.3 H Est GFR (CKD-EPI 2020) 21.90 Glucose 165 H Calcium 9.5 Total Bilirubin 0.2 AST 17 ALT 29 Alkaline Phosphatase 34 L Troponin I 62 H* Total Protein 6.8 Albumin 3.6 Patient ABO/Rh Antibody Screen 04/15/23 00:40 WBC RBC Hgb Hct MCV MCH MCHC RDW Plt Count MPV Immature Gran % Neutrophils % Lymphocytes % Monocytes % Eosinophils % Basophils % Nucleated RBC % Absolute Neutrophils Absolute Lymphocytes Absolute Monocytes Absolute Eosinophils Absolute Basophils PT INR APTT Sodium Potassium Chloride Carbon Dioxide Anion Gap BUN Creatinine Est GFR (CKD-EPI 2020) Glucose Calcium Total Bilirubin AST ALT Alkaline Phosphatase Troponin I Total Protein Albumin Patient ABO/Rh A Positive Antibody Screen NEGATIVE Last Vital Signs Temp 36.8 C 04/14/23 23:51 Pulse 86 04/15/23 01:53 Resp 20 04/15/23 01:53 BP 122/28 L 04/15/23 01:53 Pulse Ox 97 04/15/23 00:50 Time Spent Time spent with Patient: 55-74 minutes Time was spent: preparing to see the patient(eg.review tests), obtaining and/or reviewing separately otained hiistory, ordering medications,tests, procedures, referring, communicating with other health dialysis patient care technician and indepentently interpreting results
[2023-04-15] MEDS: Lactated Ringers 1,000 ML 100 ML IV (02:50)
[2023-04-15 03:07] LABS: Troponin I 53 ng/L (<or=60)
[2023-04-15] MEDS: Normal Saline Flush 10 ML SYR (05:42)
[2023-04-15 06:34] LABS: HCT 24.3 % (36.0-46.0); HGB 7.5 g/dL (11.2-15.7); MCH 30.7 pg (27.0-33.0); MCHC 30.9 % (32.0-36.0); MCV 100 fL (80-95); MPV 9.5 fL (8.0-11.0); Platelet Count 164 10^3/uL (130-400); RBC 2.44 10^6/uL (3.93-5.22); RDW 15.6 % (11.7-14.6); RDW-SD 56.3 fL; WBC 3.58 10^3/uL (4.4-10.8)
--- NOTE | 2023-04-15 07:05 | W.PULMCC ---
General Date of Service Date of service: 04/15/23 Time of Service: 07:06 Reason for Admission to ICU: Upper GIB Assessment and Plan Assessment and plan (1) Acute upper GI bleed: Status: Acute (2) Anemia: Status: Chronic (3) Bloating: Status: Acute (4) COPD (chronic obstructive pulmonary disease): Status: Chronic (5) Esophageal thickening: Status: Acute (6) Esophageal thrush: Status: Acute (7) Demand ischemia: Status: Acute (8) Essential hypertension: Status: Acute (9) Type 2 diabetes mellitus, with long-term current use of insulin: Status: Acute Qualifiers: Diabetes mellitus complication status: with kidney complications Diabetes mellitus complication detail: with chronic kidney disease Chronic kidney disease stage: stage 3 (moderate) Chronic kidney disease stage 3 subtype: stage 3b (GFR 30-44) Qualified Code(s): E11.22 - Type 2 diabetes mellitus with diabetic chronic kidney disease; N18.32 - Chronic kidney disease, stage 3b; Z79.4 - prison (current) use of insulin (10) Chronic respiratory failure with hypoxia: Status: Acute Assessment and plan: This is a 72 yo admitted to the ICU for a presumed upper GI bleed. She follows with GI at [facility] and has been having chronic issues with esophageal alesia and more recently a distal esophageal thickening. It is possible this is the source of the bleeding and hopefully can be biopsied safely. From a COPD standpoint she is stable and on her home O2 settings. I did order a lactate this morning which was below 2. Her vital signs have been stable and she is scheduled for endoscopy at 1pm. She was also only written for Protonix daily so I increased this to bid until she has her scope. Recommendations Pulmonary: COPD - continue Stiolto - prn albuterol Chronic hypoxic respiratory failure - home 2LPM - in crease O2 as needed for sats 88-92% Cardiac: Demand ischemia - troponins have tredned down HTN - hold BP meds for now Renal: No acute concerns Strict I/O's I&O: Intake & Output 04/12/23 04/13/23 04/14/23 04/15/23 23:59 23:59 23:59 23:59 Intake Total 1521.667 / 1521.667 Output Total 375 / 375 Balance 1146.667 / 1146.667 Weight 69.4 kg 221 kg Daily Fluid Goal:: positive 1L GI Nutrition: Upper GIB and esophageal thickening - NPO - Protonix 40mg IV bid - endoscopy today Date of Last Bowel Movement: 04/14/23 Infectious Disease: No acute concerns Hematologic: Anemia - due to blood loss - s/p 2U PRBC - repeat H/H Neurologic: No acute concerns Endocrine: Diabetes - on SSI Lines: PIV Prophylaxis: Protonix No DVT ppx due to bleed Code Status: Resuscitation Status Full Code Subjective Critical and life-threatening events over the past 24 hours: This is a 72 yo whom I see in clinic for COPD. She has had chronic esophageal candidiasis and more recently a thickening of her lower esophagus. She is followed with GI at [facility]. I saw her recently and we switched her ICS inhaler to a non ICS inhaler on the remote chance that the inhaler was contributing to her alesia. She presents with dizziness and weakness found to have anemia and heme positive stool. She received 2 U PRBC and is planned for endoscopy this afternoon. Today she feels well and did have a BM that was formed this morning and was heme negative. Of note the Reglan I prescribed as an outpatient really did not have an effect on her bloating at all but did cause some diarrhea. She otherwise is feeling good. No dyspnea but does have the burning mid epigastric sensation. Exam Narrative Exam Narrative: Gen: NAD, normal respiratory effort, well-nourished HENT: PERRL, moist oral mucosa Chest: No respiratory distress, normal appearance of chest, clear to auscultation bilaterally, no crackles or wheezes, normal inspiratory effort Heart: regular rate and rhythym, no murmurs, rubs or gallops Abdomen: Non-distended, soft, non tender Extremities: No clubbing, edema, cyanosis, rashes Neuro: AAOx3 , non focal Psych: cooperative, appropriate mental affect Most Recent VS/Results Last Vital Signs Temp 36.3 C L 04/15/23 06:52 Pulse 84 04/15/23 06:52 Resp 21 04/15/23 06:52 BP 136/36 L 04/15/23 06:52 Pulse Ox 94 04/15/23 06:52 Laboratory Results - last 24 hr 04/15/23 04/15/23 04/15/23 00:10 00:10 00:10 WBC 4.04 L RBC 2.12 L Hgb 6.1 L* Hct 21.1 L MCV 100 H MCH 28.8 MCHC 28.9 L RDW 16.4 H Plt Count 176 MPV 8.8 Immature Gran % 1.2 Neutrophils % 58.3 Lymphocytes % 23.8 Monocytes % 15.3 Eosinophils % 1.2 Basophils % 0.2 Nucleated RBC % 0.0 Absolute Neutrophils 2.36 Absolute Lymphocytes 0.96 L Absolute Monocytes 0.62 Absolute Eosinophils 0.05 Absolute Basophils 0.01 PT 9.6 INR 0.9 APTT 21.4 L Sodium 140 Potassium 4.5 Chloride 102 Carbon Dioxide 28.0 Anion Gap 10.0 BUN 52 H Creatinine 2.3 H Est GFR (CKD-EPI 2020) 21.90 Glucose 165 H Calcium 9.5 Total Bilirubin 0.2 AST 17 ALT 29 Alkaline Phosphatase 34 L Troponin I 62 H* Total Protein 6.8 Albumin 3.6 Patient ABO/Rh Antibody Screen Crossmatch 04/15/23 04/15/23 04/15/23 00:40 02:43 05:58 WBC 3.58 L RBC 2.44 L Hgb 7.5 L Hct 24.3 L MCV 100 H MCH 30.7 MCHC 30.9 L RDW 15.6 H Plt Count 164 MPV 9.5 Immature Gran % Neutrophils % Lymphocytes % Monocytes % Eosinophils % Basophils % Nucleated RBC % Absolute Neutrophils Absolute Lymphocytes Absolute Monocytes Absolute Eosinophils Absolute Basophils PT INR APTT Sodium Potassium Chloride Carbon Dioxide Anion Gap BUN Creatinine Est GFR (CKD-EPI 2020) Glucose Calcium Total Bilirubin AST ALT Alkaline Phosphatase Troponin I 53 Total Protein Albumin Patient ABO/Rh A Positive Antibody Screen NEGATIVE Crossmatch See Detail Review of Systems All systems reviewed & are unremarkable except as noted in HPI and below Time spent with patient Time spent in Critical Care: 45 Time spent in Critical care included: Coordination of care, Chart review, Documenting critically ill care, Time at immediate bedside and Discussing critically ill care with other medical staff Pocus Exam Limited Cardiac Exam DATE OF EXAM: 04/15/23 TIME OF EXAM: 07:15 PROVIDER THAT PERFORMED THE STUDY: Beatriz Harper IS THIS A REPEAT EXAM DURING THIS ENCOUNTER: no REASON FOR EXAM: Hypovolemic shock VISUALIZED STRUCTURES: four chambers, aortic valve, Interventricular septum and IVC VIEW OBTAINED: Apical 4-Chamber, Parasternal long-axis, Parasternal short-axis and Subxiphoid PERTINENT FINDINGS/IMPRESSION: IVC inspiratory collapsability; No LV dysfunction and No RV dysfunction Exam complete Multi-Disciplinary Checklist Lines/Tubes CENTRAL LINE: no ARTERIAL LINE: no JOSEPH: no ENDOTRACHEAL TUBE: no ICU Maintenance GLUCOSE 140-180mg/dL: yes PRESSURE ULCER: no RESTRAINTS: no ANTIBIOTICS(if yes, consider Stewardship): No Social Issues FAMILY UPDATED: no, Reason/Intervention: patient able PT/OT: no, Reason/Intervention: not needed at this time GOALS/DISPOSITION/REAL ESTATE SERVICES ADMINISTRATOR: yes CODE STATUS: Full Prophylaxis DVT PROPHYLAXIS: no Reason/Intervention: GI bleed GI PROPHYLAXIS: yes, Indication: bid for GI bleed
--- NOTE | 2023-04-15 07:47 | SCONE_ITS ---
Date of service: 04/15/23 Time of Service: 07:05 Assessment and Plan Assessment and plan (1) Chronic anemia: Status: Inactive Assessment and plan: Nahed is a pleasant 72-year-old female who comes in to the emergency department because of increased shortness of breath. She was found to be anemic with a hemoglobin of 6.8. She received a couple of units of blood. She feels better this morning. She did have a EGD colonoscopy back in October at [facility]. The EGD showed some candidiasis in the esophagus but otherwise was normal. 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 Patient denies any melena or hematochezia. Her stool this morning was negative for blood. She has had no abdominal pain. The only complaint is that of bloating. She she is not regularly on antacids. She takes Tums as needed. She was started on Protonix on admission. I discussed with the patient that I was consulted to hopefully do an upper endoscopy to make sure that she does not have any bleeding from there. We reviewed the procedure as well as the risks, benefits and complications. After discussing this with her she had a good understanding of the procedure as well as the complication risk. Risks, benefits and complications have been reviewed. Complications include but are not limited to bleeding, pain, perforation, sore throat, aspiration, and adverse reaction to the medications. Questions were entertained and answered to their satisfaction and they wished to proceed. No guarantees were given or implied. We will plan on EGD under sedation early afternoon today. Patient was discussed with anesthesia. 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 Patient has a history of gastritis with bleeding in the past. She tells me that the last time she had an upper endoscopy done at [facility] they had to cauterize some things. She denies any melena or hematochezia at home. Per nursing staff she has had normal bowel movements this morning. it awas occult blood negative. EGD and Colonoscopy report from [facility] (October 2022) was reviewed. HAd 3 AVMs that were cauterized. EGD showed candidiasis. NO bleeding She denies abdominal pain, nausea or vomiting. She does complain of severe bloating. Her troponin in the ER was slightly elevated which was felt to be demand ischemia by the hospitalist. Second troponin was negative and third troponin this morning is pending at this time. She denies chest pain or palpitations. She does have a history of MIs the last 1 back in 2020. Consults Consult date: 04/15/23 Requesting physician: Brady Salmeron Review of Systems All systems reviewed & are unremarkable except as noted in HPI and below PFSH All Active Problems Acute upper GI bleed (Acute) Anemia (Chronic) Bloating (Acute) COPD with exacerbation (Acute) Esophageal thickening (Acute) Esophagitis determined by endoscopy (Acute ~12/2022) Compression fracture of L3 vertebra (Acute ~2021) Esophageal thrush (Acute) Mucous cyst of digit of left hand (Acute ~12/2022) s/p excision of mucous cyst DOS: 01/08/23 Trigger finger, left middle finger (Acute) 40 mg Depo-Medrol injection: 11/12/2022 s/p trigger release DOS: 01/08/23 History of breast cancer (Acute) Dermatitis, seborrheic (Acute) 07/06/22 Dr Moreno Anemia, macrocytic (Acute) 05/03/22 Hem/Onc Note Essential hypertension (Acute 05/16/04) Microalbuminuria due to type 2 diabetes mellitus (Acute) Hyperlipidemia (Acute 03/18/07) Type 2 diabetes mellitus, with long-term current use of insulin (Acute ~1999) Renal artery stenosis, [place], bilateral (Chronic) [facility] Vascular Surgery; most recent OV 06/01/21 Atherosclerosis of both carotid arteries (Chronic 11/12/16) [facility] Vascular Surgery; most recent OV 06/01/21; Recommend annual carotid US COPD, very severe (Chronic) [facility] Pulm O2 dependent ASCVD (arteriosclerotic cardiovascular disease) (Chronic) [facility] 06/01/21 Vascular note: Asymptomatic bilateral carotid artery stenosis Non-ST elevation (NSTEMI) myocardial infarction (Acute ~12/2020) S/p proximal LCX stent placement 01/27/21 [facility] CKD (chronic kidney disease) (Chronic) Obstructive sleep apnea (Chronic 03/02/14) Bipap w/ 2L 02 09/06/2019 Medical History Allergic contact dermatitis due to other agents Allergic rhinitis Anemia (02/11/14) Suspect chronic dz/bone marrow suppression s/p breast CA tx (radiation); s/p GI workup (possible AVMs?), NL B12/folate, elevated Epo, NL retic count; chronic iron supplementation Back pain Breast cancer in female (~05/2021) R 2002, L 2003 s/p B/L partial mastectomy, XRT, & tamoxifen. 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 Smith Enteritis Headache Heart murmur 07/11/2016 echo: mild-moderate mitral regurgitation Hiatal hernia (02/11/14) Smaller portions Endoscopy 10/04 anemia (nothing found), [facility] Hypomagnesemia (03/04/17) Intraabdominal calcification (11/14/15) Incidental finding on CT 2 mm between bladder and uterus, no further eval required, [facility] Iron deficiency anemia (01/02/17) S/p colo & EGD 05/2015, then capsule endoscopy & push enteroscopy with no definitive etiology identified; 11/14/2017: repeat colonoscopy (due to return of anemia) showing a colonic angioectasia, which may have been source of bleeding & anemia (no overt bleeding found). Fe supplementation & monitor 10/29/22 Seen by [facility] Hem/Onc Leg cramps (04/01/14) Low Mg+ --> supplementation helped, but caused diarrhea; handout on dietary Mg+ given Malignant neoplasm of unspecified site of left female breast (~10/2021) 11/06/21 Dr Mcgill ([facility] Rad/Onc Office); Radiation Therapy planned 12/21/21-hormone receptor positive Osteopenia (02/14/16) DEXA 02/14/16: Fem neck t-score -1.2 --> WHO FRAX major osteoporotic 13% & hip fx 1.3% risk --> does not qualify for bisphosphonates --> Ca & vit D 03/2017 L3 compression fx --> re-calc WHO FRAX major osteoporotic 21% & hip fx 2.3% risk --> now qualifies for bisphosphonate tx, started 03/2017 Probable allergic rxn to Alendronate (1st pill Wed, Hiv Th and stayed thru today (but no worsening), 07/05. Agree to STOP for now. 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 Dr Agee H/O colonoscopy (~11/02/22) 11/02/22 , 1 cecal polyp removed - f/u 10 years H/O endoscopy (~06/21/22) 11/02/22 Upper GI endoscopy H/O laminectomy L5S1 H/O laminectomy (~10/06/12) L5S1 Dr. Jarrod Ballard H/O partial mastectomy (~10/26/21) Left breast History of hysterectomy, supracervical Oophrectomy, Right (~2007) For unknown reason S/P breast biopsy, left (05/09/21) u/s guided Core Bx Status post coronary artery stent placement (~01/27/21) Tooth Extractions Multiple Family History Sister Breast cancer Mother , 89 Alzheimer's dementia Breast cancer Father , AGE 75 Alcohol abuse Cirrhosis Sister Neoplasm uterine CA Sister Heart disease Brother Heart disease Niece Breast cancer Social History Smoking/Tobacco Use Status: Former Tobacco Use tobacco type: cigarettes Quit Date: 09/02/95 Tobacco: How many years used: 25 Smoking risk assessment performed?: Yes Alcohol Intake: former Details: none Drug use: Never Substance use type: does not use Adopted: No Caregiver/Support person: No Foster care: No Household members: spouse Housing: house Number of Children: 4 Communication Needs: None Pets and animals: No Current gender identity: female What type of physical activity do you participate in: regular exercise Duration: < 15 minutes/day Frequency: 3-4 times per week Mell/Episcop[employer]: [employer]regation Seatbelt use: always Drive intox or ride w/intox dray driver: No Working smoke detector in home: Yes Fire extinguisher in home: Yes Carbon monox detector in home: Yes Do you feel safe at home: Yes Do you feel safe in your relationship?: Yes Additional Social history: Lives with in [place]. Retired w [employer]. She has 11 grandkids who all live close. History History Para Hx # Term Pregnancies Multiple births Hx # Pregnancies Ectopic pregnancies AB induced Hx Number of Living Children 4 AB spontaneous Exam Const General: cooperative, comfortable and no acute distress Nutritional Appearance: overweight Orientation: alert and oriented x3 HENMT Head: normocephalic and atraumatic Resp Effort & Inspection: normal respiratory effort Auscultation: clear to auscultation bilaterally Cardio Rate: regular rate Rhythm: regular rhythm Heart Sounds: no gallops, murmur and no rubs GI Inspection: normal to inspection Palpation: soft, no hepatosplenomegaly and nontender Auscultation: normal bowel sounds Results Last Vital Signs Temp 97.3 F L 04/15/23 07:07 Pulse 78 04/15/23 07:07 Resp 22 04/15/23 07:07 BP 139/61 04/15/23 07:07 Pulse Ox 96 04/15/23 07:07 Labs 04/15/23 05:58 04/15/23 00:10 Labs: Laboratory Results - last 24 hr 04/15/23 04/15/23 04/15/23 00:10 00:10 00:10 WBC 4.04 L RBC 2.12 L Hgb 6.1 L* Hct 21.1 L MCV 100 H MCH 28.8 MCHC 28.9 L RDW 16.4 H Plt Count 176 MPV 8.8 Immature Gran % 1.2 Neutrophils % 58.3 Lymphocytes % 23.8 Monocytes % 15.3 Eosinophils % 1.2 Basophils % 0.2 Nucleated RBC % 0.0 Absolute Neutrophils 2.36 Absolute Lymphocytes 0.96 L Absolute Monocytes 0.62 Absolute Eosinophils 0.05 Absolute Basophils 0.01 PT 9.6 INR 0.9 APTT 21.4 L Sodium 140 Potassium 4.5 Chloride 102 Carbon Dioxide 28.0 Anion Gap 10.0 BUN 52 H Creatinine 2.3 H Est GFR (CKD-EPI 2020) 21.90 Glucose 165 H Calcium 9.5 Total Bilirubin 0.2 AST 17 ALT 29 Alkaline Phosphatase 34 L Troponin I 62 H* Total Protein 6.8 Albumin 3.6 Patient ABO/Rh Antibody Screen Crossmatch 04/15/23 04/15/23 04/15/23 00:40 02:43 05:58 WBC 3.58 L RBC 2.44 L Hgb 7.5 L Hct 24.3 L MCV 100 H MCH 30.7 MCHC 30.9 L RDW 15.6 H Plt Count 164 MPV 9.5 Immature Gran % Neutrophils % Lymphocytes % Monocytes % Eosinophils % Basophils % Nucleated RBC % Absolute Neutrophils Absolute Lymphocytes Absolute Monocytes Absolute Eosinophils Absolute Basophils PT INR APTT Sodium Potassium Chloride Carbon Dioxide Anion Gap BUN Creatinine Est GFR (CKD-EPI 2020) Glucose Calcium Total Bilirubin AST ALT Alkaline Phosphatase Troponin I 53 Total Protein Albumin Patient ABO/Rh A Positive Antibody Screen NEGATIVE Crossmatch See Detail
--- NOTE | 2023-04-15 08:11 | RESPIRATORY ---
RT spoke with patient concerning home O2 and if she uses it at all. Patient stated she uses 2L PRN during the day and 2L baseline at night, DME is [facility]. Patient also stated she has a Bipap in which she uses at night but is planning to D/C home today.
--- NOTE | 2023-04-15 08:50 | ANES.PREOP_ITS ---
General Info Date of Service Date Performed: 04/15/23 Height: 5 ft Weight: 221 kg Body Mass Index (BMI): 95.1 Surgical Procedure: Operation Date: 04/15/23 13:05 Proposed Procedure Side Surgeon p Gastroscopy Leeann Irby MD Meds Allergies and Home Medications Allergies Allergy/AdvReac Type Severity Reaction Status Date / Time propylene glycol Allergy Severe Rash Verified 04/08/23 11:58 anastrozole Allergy Intermediate Verified 04/08/23 11:58 petrolatum,white Allergy Intermediate rash Verified 04/08/23 11:58 [From Petroleum Jelly] adhesive tape Allergy Unknown Skin Rash Verified 04/08/23 11:58 alendronate sodium Allergy Unknown Hives Verified 04/08/23 11:58 azithromycin AdvReac Intermediate dry heaves Verified 04/08/23 11:58 and diarrhea hydrocodone bitartrate AdvReac Intermediate Nausea Verified 04/08/23 11:58 [From Vicodin] liraglutide [From Victoza] AdvReac Intermediate diarhhea Verified 04/08/23 11:58 paraben AdvReac Intermediate Skin Rash Verified 04/08/23 11:58 quaternium 15 AdvReac Intermediate generalized Verified 04/08/23 11:58 rash roflumilast AdvReac Intermediate Diarrhea Verified 04/08/23 11:58 LANDON Inhibitors AdvReac Unknown COUGH,DYSPN Verified 04/08/23 11:58 EA oxycodone HCl [From Percocet] AdvReac Unknown NAUSEA/VOMI Verified 04/08/23 11:58 TING fragranced creams Allergy Intermediate Skin Rash Uncoded 04/08/23 11:58 parabin wax Allergy Intermediate Skin Rash Uncoded 04/08/23 11:58 diogolidinyl AdvReac Severe Skin Rash Uncoded 04/08/23 11:58 bisphenal AdvReac Intermediate Skin Rash Uncoded 04/08/23 11:58 Home Medication Medication Instructions Recorded aspirin 81 mg tablet,delayed 81 mg PO DAILY ##90 03/30/13 release (Aspir-) multivitamin (Daily Multi-Vitamin 1 ea PO DAILY 03/19/17 tablet) cyanocobalamin (vitamin B-12) 1,000 mcg PO DAILY #90 tab-caps 05/07/18 1,000 mcg tablet flash glucose scanning reader #1 ea 05/04/21 (FreeStyle Basia 2 [place]) denosumab 60 mg/mL subcutaneous 60 mg subcut [id number] 09/25/21 syringe (Prolia) letrozole 2.5 mg tablet 2.5 mg PO DAILY 09/25/21 fluocinolone 0.01 % topical 1 applic topical BID Itchy scalp 04/11/22 solution blood sugar diagnostic (Blood #250 ea 04/12/22 Glucose Test strips) valsartan 160 mg tablet 160 mg PO DAILY #90 tabs 04/17/22 fiber supplements PO DAILY 05/23/22 rosuvastatin 40 mg tablet 40 mg PO DAILY #90 tabs 08/13/22 pen needle, diabetic 32 gauge x #400 ea 08/29/22 (BD Ultra-Fine [place] Pen Needle) famotidine 40 mg tablet 40 mg PO DAILY #60 tabs 10/15/22 metoprolol succinate 50 mg 50 mg PO DAILY #90 tabs 10/15/22 tablet,extended release 24 hr calcium carbonate 500 mg calcium 500 mg PO PRN 10/24/22 (1,250 mg) chewable tablet calcium carbonate 600 mg-vitamin See Rx Instructions .Route 11/29/22 D3 20 mcg (800 unit) tablet .COMPLEX #180 tabs clotrimazole 10 mg jihan 10 mg mucous membrane ONCE #30 tabs 12/11/22 nitro See Rx Instructions .Route 12/11/22 DIRECTED triamcinolone acetonide 0.1 % 1 applic topical BID PRN Apply to 12/26/22 topical ointment bilateral arm rash PRN #80 grams cetirizine 10 mg tablet 10 mg PO DAILY #90 tabs 12/31/22 magnesium oxide 400 mg (241.3 mg See Rx Instructions PO .COMPLEX 12/31/22 magnesium) tablet low magnesium level #180 tab-caps metformin 500 mg tablet 500 mg PO BID #180 tabs 12/31/22 pantoprazole 40 mg tablet,delayed 40 mg PO DAILY #60 tabs 01/30/23 release (Protonix) empagliflozin 25 mg tablet 25 mg PO DAILY AM #90 tab-caps 02/11/23 (Jardiance) nitroglycerin 0.4 mg sublingual 0.4 mg sublingual Q5M PRN chest 02/14/23 tablet pain #30 tabs sucralfate 1 gram tablet (Carafate) 1 g PO QACHS #60 tabs 02/27/23 lancets 28 gauge (Sure Comfort #100 ea 03/20/23 Lancets) tramadol 50 mg tablet 50 mg PO TID PRN pain #12 tabs 03/20/23 flash glucose sensor (FreeStyle #6 ea 03/25/23 Basia 2 Sensor kit) albuterol 90 mcg/actuation aerosol 90 mcg inhalation Q4H PRN 03/27/23 inhaler hydrochlorothiazide 25 mg tablet 25 mg PO DAILY AM #90 tab-caps 03/28/23 insulin glargine 100 unit/mL (3 See Rx Instructions subcut BID Dx: 03/29/23 mL) subcutaneous pen (Lantus E11.9 to maintain HbA1c less than Solostar U-100 Insulin) 7% insulin lispro 100 unit/mL 11 unit subcut TID high blood sugar 03/29/23 subcutaneous pen (Humalog KwikPen (U-100) Insulin) metoclopramide HCl 10 mg tablet 10 mg PO QACHS PRN nausea, 03/29/23 (Reglan) vomiting, or bloating #60 tabs tiotropium 2.5 mcg-olodaterol 2.5 2 puff inhalation DAILY #4 grams 03/29/23 mcg/actuation mist for inhalation (Stiolto Respimat) Current Visit Medications: Current Medications Generic Name Dose Route Start Last Admin Trade Name Freq PRN Reason Stop Dose Admin Albuterol Sulfate 90 puff 04/15/23 04:31 Albuterol Hfa 8 Gm 60 Puff Inh IH Q4H PRN PRN Cetirizine HCl 10 mg 04/15/23 08:30 Cetirizine 10 Mg Tab PO DAILY KALI Cyanocobalamin 1,000 mcg 04/15/23 08:30 Cyanocobalamin 500 Mcg Tab PO DAILY KALI Device 1 each 04/15/23 03:00 Inhaler, Assist Device MC DIRECTED KALI Dextrose 0 gm 04/15/23 02:30 Glucose Oral Gel 15 Gm/37.5 Gm Tube PO DIRECTED PRN Dextrose/Water 0 gm 04/15/23 02:30 Dextrose 50%-Water 25 Gm/50 Ml Syr IVP DIRECTED PRN Dimethicone/Zinc Oxide 0 gm 04/15/23 02:30 Wilbert Protect Cream 142 Gm Tube TP PRN PRN Ringer's Solution 1,000 mls @ 100 mls/hr 04/15/23 02:30 04/15/23 07:03 IV 0 mls/hr [facility] Infusion Insulin Aspart 0 units 04/15/23 08:00 Insulin Aspart 300 Units/3 Ml Pen SC 0800,1200,1700 [facility] Protocol Letrozole 2.5 mg 04/15/23 08:30 Letrozole 2.5 Mg Tab PO DAILY [facility] Metoprolol Tartrate 5 mg 04/15/23 06:47 Metoprolol 5 Mg/5 Ml Vial IVP Q6H PRN PRN Pantoprazole Sodium 40 mg 04/15/23 08:00 Pantoprazole 40 Mg Vial IVP Q12H [facility] Patient's Own 2 each 04/15/23 08:30 04/15/23 08:01 Medication ( IH 2 each Tiotropium/ DAILY [facility] Administration Olodaterol [Stiolto] Inh) Rosuvastatin Calcium 40 mg 04/15/23 20:00 Rosuvastatin 20 Mg Tab PO QPM [facility] Sodium Chloride 0 ml 04/15/23 05:28 Normal Saline Flush 10 Ml Syr IVP PRN PRN Tramadol HCl 50 mg 04/15/23 02:36 Tramadol 50 Mg Tab PO TID PRN pain PFSH Active Problems Active Problems: Problem Status Onset Code Acute upper GI bleed K92.2 Anemia D64.9 Bloating R14.0 COPD with exacerbation J44.1 Esophageal thickening K22.89 Esophagitis determined by endoscopy ~12/2022 K20.90 Compression fracture of L3 vertebra ~2021 S32.030A Esophageal thrush B37.81 Mucous cyst of digit of left hand ~12/2022 M67.442 Trigger finger, left middle finger M65.332 History of breast cancer Z85.3 Dermatitis, seborrheic L21.9 Anemia, macrocytic D53.9 Essential hypertension 05/16/04 I10 Microalbuminuria due to type 2 diabetes mellitus E11.29, R80.9 Hyperlipidemia 03/18/07 E78.5 Type 2 diabetes mellitus, with long-term current use of insulin ~1999 E11.9, Z79.4 Renal artery stenosis, [place], bilateral I70.1 Atherosclerosis of both carotid arteries 11/12/16 I65.23 COPD, very severe J44.9 ASCVD (arteriosclerotic cardiovascular disease) I25.10 Non-ST elevation (NSTEMI) myocardial infarction ~12/2020 I21.4 CKD (chronic kidney disease) N18.9 Obstructive sleep apnea 03/02/14 G47.33 Medical History Medical History Allergic contact dermatitis due to other agents Allergic rhinitis Anemia (02/11/14) Suspect chronic dz/bone marrow suppression s/p breast CA tx (radiation); s/p GI workup (possible AVMs?), NL B12/folate, elevated Epo, NL retic count; chronic iron supplementation Back pain Breast cancer in female (~05/2021) R 2002, L 2003 s/p B/L partial mastectomy, XRT, & tamoxifen. 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 Smith Enteritis Headache Heart murmur 07/11/2016 echo: mild-moderate mitral regurgitation Hiatal hernia (02/11/14) Smaller portions [place] 10[place]04 [place]nothing found[place] [facility] [place]omagnesemia (03/04/17) Intraabdominal calcification (11/14/15) Incidental finding on CT 2 mm between bladder and uterus, no further eval required, [facility] Iron deficiency anemia (01/02/17) S/p colo & EGD 05/2015, then capsule endoscopy & push enteroscopy with no definitive etiology identified; 11/14/2017: repeat colonoscopy (due to return of anemia) showing a colonic angioectasia, which may have been source of bleeding & anemia (no overt bleeding found). Fe supplementation & monitor 10/29/22 [place] [facility] [place] Leg cramps (04/01/14) Low Mg+ --> supplementation helped, but caused diarrhea; handout on dietary Mg+ given Malignant neoplasm of unspecified site of left female breast (~10/2021) 11/06/21 Dr Mcgill ([facility] Rad[facility]On[facility]); Radiation Therapy planned 12/21/21-hormone receptor positive Osteopenia (02/14/16) DEXA 02/14/16: Fem neck t-score -1.2 --> WHO FRAX major osteoporotic 13% & hip fx 1.3% risk --> does not qualify for bisphosphonates --> Ca & vit D 03/2017 L3 compression fx --> re-calc WHO FRAX major osteoporotic 21% & hip fx 2.3% risk --> now qualifies for bisphosphonate tx, started 03/2017 Probable allergic rxn to Alendronate (1st pill Wed, Hiv Th and stayed thru today (but no worsening), 07/05. Agree to STOP for now. 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 Dr Agee H/O colonoscopy (~11/02/22) 11/02/22 , 1 cecal polyp removed - f/u 10 years H/O endoscopy (~06/21/22) 11/02/22 Upper GI endoscopy H/O laminectomy L5S1 H/O laminectomy (~10/06/12) L5S1 Dr. Jarrod Ballard H/O partial mastectomy (~10/26/21) Left breast History of hysterectomy, supracervical Oophrectomy, Right (~2007) For unknown reason S/P breast biopsy, left (05/09/21) u/s guided Core Bx Status post coronary artery stent placement (~01/27/21) Tooth Extractions Multiple Tobacco Smoking/Tobacco Use Status: Former Tobacco Use Alcohol Alcohol Intake: former Details: none Substance Use Substance use: Never Substance use type: does not use Prental History History Para Hx # Term Pregnancies Multiple births Hx # Pregnancies Ectopic pregnancies AB induced Hx Number of Living Children 4 AB spontaneous Vital Signs and Lab Results Vital Signs Most Recent Vital Signs in EMR: Most Recent Vital Signs Temp Pulse Resp BP Pulse Ox 36.3 C L 80 15 142/52 H 94 04/15/23 07:37 04/15/23 07:37 04/15/23 07:37 04/15/23 07:37 04/15/23 07:37 Point of Care Results Point of Care Results: Finger Stick Blood Glucose 195 04/15/23 04:49 Lab Results 04/15/23 05:58 04/15/23 00:10 Blood Type / Crossmatch: Patient ABO/Rh A Positive 04/15/23 Antibody Screen NEGATIVE 04/15/23 Crossmatch See Detail 04/15/23 Complete Blood Count: White Blood Count 3.58 10^3/uL (4.4-10.8) L 04/15/23 05:58 Red Blood Count 2.44 10^6/uL (3.93-5.22) L 04/15/23 05:58 Hemoglobin 7.5 g/dL (11.2-15.7) L 04/15/23 05:58 Hematocrit 24.3 % (36.0-46.0) L 04/15/23 05:58 Platelet Count 164 10^3/uL (130-400) 04/15/23 05:58 Complete Metabolic Panel: Sodium 140 mmol/L (136-145) 04/15/23 00:10 Potassium 4.5 mmol/L (3.5-5.1) 04/15/23 00:10 Chloride 102 mmol/L (98-107) 04/15/23 00:10 Carbon Dioxide 28.0 mmol/L (21.0-32.0) 04/15/23 00:10 BUN 52 mg/dL (7-18) H 04/15/23 00:10 Creatinine 2.3 mg/dL (0.55-1.02) H 04/15/23 00:10 Est GFR (CKD-EPI 2020) 21.90 (mL/min/1.73m2) 04/15/23 00:10 Calcium 9.5 mg/dL (8.5-10.1) 04/15/23 00:10 Albumin 3.6 g/dL (3.4-5.0) 04/15/23 00:10 Glucose 165 mg/dL (74-106) H 04/15/23 00:10 Hemoglobin A1c 7.6 % (4.5-5.7) H 03/20/23 13:50 Liver Function Panel: Alanine Aminotransferase (ALT/SGPT) 29 U/L (14-59) 04/15/23 00: 10 Aspartate Amino Transf (AST/SGOT) 17 U/L (15-37) 04/15/23 00:10 Coagulation Panel: INR International Normalized Ratio 0.9 (0.9-1.1) 04/15/23 00:1 0 Prothrombin Time 9.6 sec (9.3-11.0) 04/15/23 00:10 Activated Partial Thromboplast Time 21.4 sec (21.5-31.9) L 04/15/23 00:10 Cardiac Panel: Troponin I 53 ng/L (<or=60) 04/15/23 NT-Pro-B Natriuret Pep 494 pg/mL (<300) H 03/25/23 Arterial Blood Gas: No Data to Display Venous Blood Gas: No Data to Display Pancreas Panel: Lipase 58 U/L (16-77) 03/20/23 05:53 Thyroid Panel: Thyroid Stimulating Hormone (TSH) 1.65 uIU/mL (0.36-3.74) 03/25 10:30 Infectious Disease: No Data to Display Blood Cultures: No Data to Display Toxicology Panel: No Data to Display Imaging and Studies Imaging and Studies Study information below may be from another EMR and interpreted by another provider. Please see original notes in EMR for more complete details. EKG Summary: 04/14/23: NSR Echocardiogram Summary: 05/17/2020: Conclusion Left Ventricle : The left ventricle is normal size. The left ventricular systolic function is normal. The left ventricular ejection fraction is within the normal range. There is normal left ventricular wall thickness. There is normal LV segmental wall motion. The left ventricular diastolic function is normal. LVEF is 55-60%. Right Ventricle : The right ventricle is normal size. The right ventricular systolic function is normal. The RVSP is 34.3 mmHg. Atria : The left atrium size is normal. The right atrium size is normal. Valves: There are no hemodynamically significant valvular lesions. Great Vessels : The aortic root is normal in size. The ascending aorta is normal in size. Aortic arch is not well visualized. IVC is normal in size and collapses >50% with inspiration. Compared to echocardiogram from 07/11/2016, there is no significant change. Pulmonary Function Summary: 04/17/2021:
[2023-04-15] MEDS: Pantoprazole 40 MG VIAL IVP (09:09)
[2023-04-15] MEDS: Letrozole 2.5 MG TAB PO (09:10)
[2023-04-15] MEDS: Cetirizine 10 MG TAB PO (09:10)
[2023-04-15] MEDS: Cyanocobalamin 500 MCG TAB 1000 MCG PO (09:10)
[2023-04-15 10:11] LABS: Lactate 1.7 mmol/L (0.6-1.4)
[2023-04-15 10:12] LABS: HCT 31.8 % (36.0-46.0); HGB 9.8 g/dL (11.2-15.7)
--- NOTE | 2023-04-15 10:42 | W.PM.DS.N ---
Date of service: 04/15/23 Time of Service: 10:44 DS: Diagnosis Discharge Diagnosis (1) GI bleed: Status: Chronic Asessment and Plan: Malkaley lower from AVMs. H/O colonic AVMs that were [place] [facility] [place]ing Hgb of 6.1. Received 2 units pRBCs and hgb at time of discharge was 9.8. Stool was heme negative. Likely a more chronic, slow bleed. GI at [facility] [place] arranging an outpt clinic appt. At that time they will discuss scheduling upper and lower endoscopies and future surveillance. Precautions given on when to return for concerning symptoms. (2) Anemia: Status: Chronic Asessment and Plan: As above. Will supplement with po iron. CBC in 1 week. (3) COPD (chronic obstructive pulmonary disease): Status: Chronic (4) Esophageal thickening: Status: Acute Asessment and Plan: Stable w/o exacerbation. Cont home meds and supplemental O2. (5) Esophageal thrush: Status: Acute Asessment and Plan: By history / found on previous upper endoscopy at [facility]. (6) Demand ischemia: Status: Acute Asessment and Plan: Her initial troponin was 62. Second was 53. It then increased to 2854. She had no CP/N/V/palpitations. Her troponin peaked at [address]iscuss[address] with Dr Billingsley, who also analyzed her EKG. Demand ischemia dxd secondary to her anemia in background of significant lung disease/COPD. (7) Essential hypertension: Status: Acute Asessment and Plan: Resume Valsartan and metoprolol. (8) Type 2 diabetes mellitus, with long-term current use of insulin: Status: Acute Asessment and Plan: Resume home regimen of metformin, jardiance and lantus. (9) Chronic respiratory failure with hypoxia: Status: Acute Asessment and Plan: Cont with her usual home supplemental O2. Discharge Plan Disposition Patient Disposition: Home Condition: Stable Discharge Details Reason For Visit: GI bleed, demand ischemia Admit Date/Time: 04/15/23 02:30 Admit Provider: Brady Salmeron Attending Provider: Brady Salmeron Primary Care Provider: Janina Calloway Hospital Course Hospital Course: PCP f/u in 1-2 weeks. [facility] [place] a clinic appt to discuss Upper and lower endoscopy (which will be scheduled with them). Oncology f/u is already scheduled. Home Meds and New Rx's Prescriptions: New ferrous sulfate [iron] 325 mg (65 mg iron) tablet 325 mg PO DAILY Qty: 60 0RF Rx Instructions: Take in the AM at least 1/2 hour before a meal. Take with an OTC Vit C tab or OJ. Continued triamcinolone acetonide 0.1 % ointment 1 applic topical BID PRN (Reason: Apply to bilateral arm rash PRN) Qty: 80 1RF nitroglycerin 0.4 mg tablet, sublingual 0.4 mg sublingual Q5M PRN (Reason: chest pain) Qty: 30 6RF Rx Instructions: do not exceed 3 doses per episode clotrimazole 10 mg jihan 10 mg mucous membrane ONCE Qty: 30 4RF Rx Instructions: Use calcium carbonate 500 mg calcium (1,250 mg) tablet,chewable 500 mg PO PRN (DME) lancets [Sure Comfort Lancets] 28 gauge misc 1 ea Miscellaneous DAILY Qty: 100 3RF Rx Instructions: Dx: E11.9 to maintain HbA1C less than 7% albuterol 90 mcg/actuation aerosol 90 mcg inhalation Q4H PRN insulin glargine [Lantus Solostar U-100 Insulin] 100 unit/mL (3 mL) insulin pen See Rx Instructions subcut BID Rx Instructions: 15 units AM and 15 units PM subcut; insulin lispro [Humalog KwikPen Insulin] 100 unit/mL insulin pen 11 unit subcut TID Patient Comments: INJECT 11 UNITS UNDER THE SKIN BEFORE MEALS DIRECTED metoclopramide HCl [Reglan] 10 mg tablet 10 mg PO QACHS PRN (Reason: nausea, vomiting, or bloating) Qty: 60 5RF Stiolto Respimat 2.5-2.5 mcg/actuation mist 2 puff inhalation DAILY Qty: 4 12RF Oxygen EACH NS At Night Qty: 2 0RF Patient Comments: 2 L at night and CPAP- patient states she wore these 11/10/17 multivitamin [Daily Multi-Vitamin] 1 EACH tablet 1 ea PO DAILY Patient Comments: patient states she took this roughly one week ago cyanocobalamin (vitamin B-12) 1,000 mcg tablet 1,000 mcg PO DAILY Qty: 90 3RF (DME) FreeStyle [place]ia 2 [facility] [place] Rx Instructions .ROUTE .MEDSUPPLY Qty: 1 0RF Rx Instructions: As directed Prolia 60 mg/mL syringe 60 mg subcut [id number] letrozole 2.5 mg tablet 2.5 mg PO DAILY Rx Instructions: 09/22/21 Hem/Onc prescribes. fluocinolone 0.01 % solution 1 applic topical BID (DME) Blood Glucose Test Strip See Rx Instructions .ROUTE .MEDSUPPLY Qty: 250 1RF Rx Instructions: As directed to check blood glucose three times daily. On insulin. Dispense covered brand (Freestyle Lite) valsartan 160 mg tablet 160 mg PO DAILY Qty: 90 3RF Rx Instructions: Dose increase 03/12/2022 fiber supplements PO DAILY rosuvastatin 40 mg tablet 40 mg PO DAILY Qty: 90 3RF Hold Instructions: Home Medication placed on hold at Doctor's office [place] [place] pen needle, diabetic [BD Ultra-Fine Marina Pen Needle] 32 gauge x 5/32 needle See Rx Instructions .Route Qty: 400 3RF Rx Instructions: Use with insulin QID. Dispense covered brand e11.9 metoprolol succinate 50 mg tablet extended release 24 hr 50 mg PO DAILY Qty: 90 3RF calcium carbonate-vitamin D3 600 mg-20 mcg (800 unit) tablet See Rx Instructions .ROUTE .COMPLEX Qty: 180 3RF Dose Instruction: TAKE TWO TABLETS BY MOUTH EVERY DAY Rx Instructions: TAKE TWO TABLETS BY MOUTH EVERY DAY magnesium oxide 400 mg (241.3 mg magnesium) tablet See Rx Instructions PO .COMPLEX Qty: 180 3RF Rx Instructions: 400 mg AM and PM as per María Mendoza cetirizine 10 mg tablet 10 mg PO DAILY Qty: 90 3RF metformin 500 mg tablet 500 mg PO BID MDD 1000 mg Qty: 180 3RF Rx Instructions: DOSED FOR RENAL FUNCTION pantoprazole [Protonix] 40 mg tablet,delayed release (DR/EC) 40 mg PO DAILY Qty: 60 3RF Jardiance 25 mg tablet 25 mg PO DAILY AM Qty: 90 3RF Rx Instructions: Administer once daily in the morning, with or without food sucralfate [Carafate] 1 gram tablet 1 g PO QACHS Qty: 60 0RF (DME) FreeStyle Basia 2 Sensor Kit See Rx Instructions .ROUTE .MEDSUPPLY Qty: 6 3RF Rx Instructions: As directed hydrochlorothiazide 25 mg tablet 25 mg PO DAILY AM Qty: 90 3RF tramadol 50 mg tablet 50 mg PO TID PRN (Reason: pain) Qty: 12 0RF famotidine 40 mg tablet 40 mg PO DAILY Qty: 60 0RF Held aspirin [Aspir-81] 81 MG tablet,delayed release (DR/EC) 81 mg PO DAILY Qty: 90 Hold Instructions: Hold until GI clears to restart Discontinued nitro See Rx Instructions .ROUTE DIRECTED Rx Instructions: as directed; Discharge Instructions Activity:: Activity as Tolerated Equipment/Supplies:: No Equipment Needed Diet:: As Tolerated Discharge Orders Other Ambulatory Orders: Complete Blood Count w/Diff (Routine) Location: None Selected Ordered By: Kai Laureano DS: Summary Time Spent with Patient providing and/or coordinating discharge services: Greater than 30 minutes Status at Discharge Functional status at discharge: independent ambulation Overall status at discharge: patient is progressing back to baseline Mental Status: mental status grossly normal Speech and Movement: speech and movement normal Mood: congruent mood Affect: normal affect Exam Narrative Exam Narrative: Gen: Sitting up in bed. Pleasant and conversational. Appears pale. Neck w/o JVD HEENT: sclera clear. MMM Lungs: diminished throughout. Nonlabored breathing. CV: RRR. Abd: soft, NT, ND Exts: No edema or calf tenderness. Psych: A&Ox3. Affect appropriate Psych Mental Status: mental status grossly normal Speech and Movement: speech and movement normal Mood: congruent mood Affect: normal affect DS: Data Vitals/I&O Vitals and I&O: Vital Signs Temperature 36.6 C 04/15/23 09:39 Temperature Source Temporal Artery Scan 04/15/23 04:46 Pulse 74 04/15/23 09:03 Pulse 81 04/15/23 07:00 Respiratory Rate 14 04/15/23 09:39 Respiratory Effort Non-Labored, Incrsd Work of Breathing 04/15/23 09:39 Respiratory Depth Normal 04/15/23 09:39 Respiratory Pattern Normal 04/15/23 09:39 Blood Pressure 147/81 H 04/15/23 09:39 Blood Pressure Mean 103 04/15/23 09:39 Blood Pressure Position Supine 04/15/23 09:39 Pulse Oximetry 94 04/15/23 09:39 Oxygen Delivery Method Nasal Cannula 04/15/23 09:39 Oxygen Flow Rate 2 04/15/23 09:39 Pain Level 0 04/15/23 09:39 Intake & Output 04/14/23 04/14/23 04/15/23 11:59 23:59 11:59 Intake Total 1921.667 / 1921.667 Output Total 375 / 375 Balance 1546.667 / 1546.667 Weight 69.4 kg 69.938 kg Intake: IV 921.667 / 921.667 Blood Product 900 / 900 Rbc Leuko Reduced Unit 400 / 400 [id number] Rbc Leuko Reduced Unit 500 / 500 [id number] Other 100 / 100 Rbc Leuko Reduced Unit 100 / 100 [id number] Output: Urine 375 / 375 Other: Urine Color Pale Yellow Urine Appearance Clear Urine Odor None Stool Occult Blood Negative Stool Size Large Stool Characteristics Soft Formed Voiding Methods Bedside Commode Data Completed and Pending Labs on day of discharge: Labs from last 24 hours 04/15/23 04/15/23 04/15/23 10:05 10:05 10:05 WBC RBC Hgb 9.8 L D Hct 31.8 L MCV MCH MCHC RDW Plt Count MPV Immature Gran % Neutrophils % Lymphocytes % Monocytes % Eosinophils % Basophils % Nucleated RBC % Absolute Neutrophils Absolute Lymphocytes Absolute Monocytes Absolute Eosinophils Absolute Basophils PT INR APTT VBG Lactate 1.7 H Sodium Potassium Chloride Carbon Dioxide Anion Gap BUN Creatinine Est GFR (CKD-EPI 2020) Glucose Calcium Total Bilirubin AST ALT Alkaline Phosphatase Troponin I Pending Total Protein Albumin Patient ABO/Rh Antibody Screen Crossmatch 04/15/23 04/15/23 04/15/23 05:58 02:43 00:40 WBC 3.58 L RBC 2.44 L Hgb 7.5 L Hct 24.3 L MCV 100 H MCH 30.7 MCHC 30.9 L RDW 15.6 H Plt Count 164 MPV 9.5 Immature Gran % Neutrophils % Lymphocytes % Monocytes % Eosinophils % Basophils % Nucleated RBC % Absolute Neutrophils Absolute Lymphocytes Absolute Monocytes Absolute Eosinophils Absolute Basophils PT INR APTT VBG Lactate Sodium Potassium Chloride Carbon Dioxide Anion Gap BUN Creatinine Est GFR (CKD-EPI 2020) Glucose Calcium Total Bilirubin AST ALT Alkaline Phosphatase Troponin I 53 Total Protein Albumin Patient ABO/Rh A Positive Antibody Screen NEGATIVE Crossmatch See Detail 04/15/23 04/15/2323 00:10 00:10 00:10 WBC 4.04 L RBC 2.12 L Hgb 6.1 L* Hct 21.1 L MCV 100 H MCH 28.8 MCHC 28.9 L RDW 16.4 H Plt Count 176 MPV 8.8 Immature Gran % 1.2 Neutrophils % 58.3 Lymphocytes % 23.8 Monocytes % 15.3 Eosinophils % 1.2 Basophils % 0.2 Nucleated RBC % 0.0 Absolute Neutrophils 2.36 Absolute Lymphocytes 0.96 L Absolute Monocytes 0.62 Absolute Eosinophils 0.05 Absolute Basophils 0.01 PT 9.6 INR 0.9 APTT 21.4 L VBG Lactate Sodium 140 Potassium 4.5 Chloride 102 Carbon Dioxide 28.0 Anion Gap 10.0 BUN 52 H Creatinine 2.3 H Est GFR (CKD-EPI 2020) 21.90 Glucose 165 H Calcium 9.5 Total Bilirubin 0.2 AST 17 ALT 29 Alkaline Phosphatase 34 L Troponin I 62 H* Total Protein 6.8 Albumin 3.6 Patient ABO/Rh Antibody Screen Crossmatch [facility] All Active Problems (Updated 04/15/23 @ 11:00 by Kai Laureano MD) GI bleed (Chronic) Demand ischemia (Acute) Chronic respiratory failure with hypoxia (Acute) COPD (chronic obstructive pulmonary disease) (Chronic) Acute upper GI bleed (Acute) Anemia (Chronic) Bloating (Acute) COPD with exacerbation (Acute) Esophageal thickening (Acute) Esophagitis determined by endoscopy (Acute ~12/2022) Compression fracture of L3 vertebra (Acute ~2021) Esophageal thrush (Acute) Mucous cyst of digit of left hand (Acute ~12/2022) s/p excision of mucous cyst DOS: 01/08/23 Trigger finger, left middle finger (Acute) 40 mg Depo-Medrol injection: 11/12/2022 s/p trigger release DOS: 01/08/23 History of breast cancer (Acute) Dermatitis, seborrheic (Acute) 07/06/22 Dr Moreno Anemia, macrocytic (Acute) 05/03/22 Hem/Onc Note Essential hypertension (Acute 05/16/04) Microalbuminuria due to type 2 diabetes mellitus (Acute) Hyperlipidemia (Acute 03/18/07) Type 2 diabetes mellitus, with long-term current use of insulin (Acute ~1999) Renal artery stenosis, kiana, bilateral (Chronic) [facility] [place]; most recent OV 06/01/21 Atherosclerosis of both carotid arteries (Chronic 11/12/16) [facility] [place]; most recent OV 06/01/21; Recommend annual carotid US COPD, very severe (Chronic) [facility] Pulm O2 dependent ASCVD (arteriosclerotic cardiovascular disease) (Chronic) [facility] 06/01/21 Vascular note: Asymptomatic bilateral carotid artery stenosis Non-ST elevation (NSTEMI) myocardial infarction (Acute ~12/2020) S/p proximal LCX stent placement 01/27/21 [facility] CKD (chronic kidney disease) (Chronic) Obstructive sleep apnea (Chronic 03/02/14) Bipap w/ 2L 02 09/06/2019 Medical History Allergic contact dermatitis due to other agents Allergic rhinitis Anemia (02/11/14) Suspect chronic dz/bone marrow suppression s/p breast CA tx (radiation); s/p GI workup (possible AVMs?), NL B12/folate, elevated Epo, NL retic count; chronic iron supplementation Back pain Breast cancer in female (~05/2021) R 2002, L 2003 s/p B/L partial mastectomy, XRT, & tamoxifen. 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 Smith Enteritis Headache Heart murmur 07/11/2016 echo: mild-moderate mitral regurgitation Hiatal hernia (02/11/14) Smaller portions Endoscopy 10/04 anemia (nothing found), [facility] Hypomagnesemia (03/04/17) Intraabdominal calcification (11/14/15) Incidental finding on CT 2 mm between bladder and uterus, no further eval required, [facility] Iron deficiency anemia (01/02/17) S/p colo & EGD 05/2015, then capsule endoscopy & push enteroscopy with no definitive etiology identified; 11/14/2017: repeat colonoscopy (due to return of anemia) showing a colonic angioectasia, which may have been source of bleeding & anemia (no overt bleeding found). Fe supplementation & monitor 10/29/22 Seen by [facility] Hem/Onc Leg cramps (04/01/14) Low Mg+ --> supplementation helped, but caused diarrhea; handout on dietary Mg+ given Malignant neoplasm of unspecified site of left female breast (~10/2021) 11/06/21 Dr Mcgill ([facility] Rad[facility]Onc [facility]); Radiation Therapy planned 12/21/21-hormone receptor positive Osteopenia (02/14/16) DEXA 02/14/16: Fem neck t-score -1.2 --> WHO FRAX major osteoporotic 13% & hip fx 1.3% risk --> does not qualify for bisphosphonates --> Ca & vit D 03/2017 L3 compression fx --> re-calc WHO FRAX major osteoporotic 21% & hip fx 2.3% risk --> now qualifies for bisphosphonate tx, started 03/2017 Probable allergic rxn to Alendronate (1st pill Sat, Th and stayed thru today (but no worsening), 07/05. Agree to STOP for now. 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 Dr Agee H/O colonoscopy (~11/02/22) 11/02/22 , 1 cecal polyp removed - f/u 10 years H/O endoscopy (~06/21/22) 11/02/22 Upper GI endoscopy H/O laminectomy L5S1 H/O laminectomy (~10/06/12) L5S1 Dr. Jarrod Ballard H/O partial mastectomy (~10/26/21) Left breast History of hysterectomy, supracervical Oophrectomy, Right (~2007) For unknown reason S/P breast biopsy, left (05/09/21) u/s guided Core Bx Status post coronary artery stent placement (~01/27/21) Tooth Extractions Multiple Family History Sister Breast cancer Mother , 89 Alzheimer's dementia Breast cancer Father , AGE 75 Alcohol abuse Cirrhosis Sister Neoplasm uterine CA Sister Heart disease Brother Heart disease Niece Breast cancer Social History Smoking/Tobacco Use Status: Former Tobacco Use tobacco type: cigarettes Quit Date: 09/02/95 Tobacco: How many years used: 25 Smoking risk assessment performed?: Yes Alcohol Intake: former Details: none Drug use: Never Substance use type: does not use Adopted: No Caregiver/Support person: No Foster care: No Household members: spouse Housing: house Number of Children: 4 Communication Needs: None Pets and animals: No Current gender identity: female What type of physical activity do you participate in: regular exercise Duration: < 15 minutes/day Frequency: 3-4 times per week Mell/Adventist: Faith Seatbelt use: always Drive intox or ride w/intox wrecker driver: No Working smoke detector in home: Yes Fire extinguisher in home: Yes Carbon monox detector in home: Yes Do you feel safe at home: Yes Do you feel safe in your relationship?: Yes Additional Social history: Lives with in [place]. 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 She has 11 grandkids who all live close. History History Para Hx # Term Pregnancies Multiple births Hx # Pregnancies Ectopic pregnancies AB induced Hx Number of Living Children 4 AB spontaneous Time Spent with Patient Time Spent with Patient: 45-69 minutes Time was spent: preparing to see the patient(eg.review tests), obtaining and/or reviewing separately otained hiistory, ordering medications,tests, procedures, referring, communicating with other health client care manager, indepentently interpreting results, counseling the patient and care coordination
[2023-04-15 10:58] LABS: Troponin I 2854 ng/L (<or=60)
--- NOTE | 2023-04-15 11:00 | RT.EKG_ITS ---
APPROVED REPORT Exam: Resting ECG Reason for Exam: troponin elevation Patient Location: I HR:75 bpm ECG Measurements Heart Rate 75 AXIS NJ 183 P 69 QRSd 87 QRS 23 QT 390 T 15 QTc 436 Conclusion Sinus rhythm...normal P axis, V-rate 50- [address] depression, lateral leads...ST <-0.04mV, I aVL V5 V6 Minimal ST elevation, anterior leads...ST >0.10mV, V1-V4
--- NOTE | 2023-04-15 12:27 | DI.US_ITS ---
APPROVED REPORT EXAM: Comprehensive 2D, Doppler, and color-flow Echocardiogram Patient Location: In-Patient Room/Bed: 221 Cadmium Burner: Chandra Ryan RDCS Indications: NSTEMI Other Information Study Quality: Fair. Technically limited study due to body habitus. Conclusion Normal left ventricular wall thickness and chamber size. Left ventricular systolic function appears normal without segmental wall motion abnormalities Normal right ventricular size and systolic function Both atria are normal in size Aortic valve is sclerotic and probably trileaflet without stenosis or regurgitation Mildly thickened mitral leaflets, mild mitral annular calcification, mild mitral regurgitation Normal tricuspid valve with trace regurgitation. Right ventricular systolic pressure could not be es timated Wall motion Left Ventricle The left ventricle is normal size. The left ventricular systolic function is normal. The left ventric ular ejection fraction is within the normal range. There is normal left ventricular wall thickness. T here is normal LV segmental wall motion. There is no ventricular septal defect visualized. LVEF is 55 to 60% Right Ventricle The right ventricle is normal size. The right ventricular systolic function is normal. Unable to asse ss PA pressure. Atria The left atrium size is normal. The right atrium size is normal. The interatrial septum is intact wit h no evidence for an atrial septal defect. Aortic Valve The Aortic valve is sclerotic. Aortic valve is probably trileaflet. There is no aortic valvular steno sis. No aortic regurgitation is present. Mitral Valve Mitral valve leaflets are mildly thickened. Mild mitral annular calcification. No evidence of mitral valve stenosis. Mild mitral regurgitation. Tricuspid Valve The tricuspid valve is normal in structure. There is no tricuspid valve stenosis. Trace tricuspid reg urgitation. Pulmonic Valve The pulmonary valve is normal in structure. There is no pulmonic valvular stenosis. There is no pulmo loyda valvular regurgitation. Great Vessels The aortic root is normal in size. The ascending aorta is normal in size. Aortic arch is not well vis ualized. IVC is normal in size and collapses >50% with inspiration. Pericardium There is no pericardial effusion. 2D Dimensions IVSD d PLAX 0.85 cm F: 0.6-1.0 LV Vol A2C d MOD 80.0 mL LVPW d PLAX 0.83 cm F: 0.6 - 1.0 LV Vol A4C d MOD 81.3 mL LVID d PLAX 4.52 cm F: 3.8 - 5.2 LV EF A4C MOD 47.8 % Ao Root d 2.45 cm F: 2.7 - 3.3 LV EF A2C MOD 61.0 % Ao Asc Diam d 2.75 cm F: 2.3 - 3.1 LV EF Biplane MOD 54.1 % LVEF ([employer]) 54.11 % F: 54 - 74 LV Volume 86.86 mL F: 46 - 106 LV Volume Index 52.01 mL/m2 F: 29 - 61 LV Vol Biplane MOD 86.9 mL LV Diastology E/A Ratio 0.9 MV E Vmax 1.18 (0.4-1.3 m/s) MV A Vmax 1.35 (0.4-1.3 m/s) Aortic Valve LVOT Vmax 1.47 m/s LVOT Peak Grad 8.6 mmHg LVOT Mean Grad 4.6 mmHg LVOT Diam s 1.70 cm AoV Peak Grad 14.0 mmHg LVOT SV 81.51 mL AoV Mean Grad 6.5 mmHg AoV Area VTI 2.09 cm2 Mitral Valve MV DT 267 (160-240 msec) Pulmonary Valve PV Mean Grad 4.8 mmHg RVOT Peak Gr. 5.21 mmHg RVOT Mean Gr. 2.40 mmHg RVOT VTI 0.216 m RVOT Vmax 1.14 m/s Tricuspid Valve TR Peak Grad 8.1 mmHg
[2023-04-15] MEDS: LORazepam 2 MG/ML VIAL 0.5 MG IVP (12:45)
[2023-04-15 13:41] LABS: Troponin I 3584 ng/L (<or=60)
[2023-04-15 15:36] LABS: Troponin I 3141 ng/L (<or=60)
--- NOTE | 2023-04-15 17:52 | RESPIRATORY ---
RT spoke with patient concerning her history of NIKKI with BIPAP usage listed in her history. Patient does use a Bipap at night and had someone bring device in as she was going to spend one more night. Patient uses a [employer] Bipap IPAP 20/EPAP 9 PS min 0/max 8 with 2L bled in. Her DME is [employer] and she uses an [employer] FFM size Small
== END 2023-04-15 18:20 | disposition home or self-care (01) ==
LOC: ER 04-15 03:30 → ICU 04-15 04:18
PROVIDERS: Family Medicine; Student in an Organized Health Care Education/Training Program; Admitting Provider General Practice; Emergency Provider Emergency Medicine; PCP Nurse Practitioner; Visit Provider General Practice
DX: K92.2 Gastrointestinal hemorrhage, unspecified (principal); D50.9 Iron deficiency anemia, unspecified; B37.81 Candidal esophagitis; Z95.5 Presence of coronary angioplasty implant and graft; J96.11 Chronic respiratory failure with hypoxia; R07.89 Other chest pain; Z79.4 Long term (current) use of insulin; K44.9 Diaphragmatic hernia without obstruction or gangrene; Z79.82 Long term (current) use of aspirin; R14.0 Abdominal distension (gaseous); K20.90 Esophagitis, unspecified without bleeding; D53.9 Nutritional anemia, unspecified; E78.5 Hyperlipidemia, unspecified; I12.9 Hypertensive chronic kidney disease with stage 1 through stage 4 chronic kidney disease, or unspecified chronic kidney disease; G47.33 Obstructive sleep apnea (adult) (pediatric); I25.2 Old myocardial infarction; J30.9 Allergic rhinitis, unspecified; F32.A Depression, unspecified; Z85.3 Personal history of malignant neoplasm of breast; Z87.891 Personal history of nicotine dependence; I24.8 Other forms of acute ischemic heart disease; E11.22 Type 2 diabetes mellitus with diabetic chronic kidney disease; R19.5 Other fecal abnormalities; N18.32 Chronic kidney disease, stage 3b; Z99.81 Dependence on supplemental oxygen; J44.9 Chronic obstructive pulmonary disease, unspecified; I08.0 Rheumatic disorders of both mitral and aortic valves
CPT/HCPCS: 36415; 36430; 80053; 85027; 86850; 86900; 86901; 86920; 93005; 93306; 94640; 96374; 96375; 99223; 99285; 71046; 83605; 84484; 85014; 85018; 85025; 85610; 85730; 93010; 94664; 99222; G0378; J2060; J2405; J7620; P9016

== ENCOUNTER 2023-04-23 20:15 | Outpatient (REF) | payer MEDICARE, BC, SELFPAY ==
[2023-04-23 20:10] LABS: Anion Gap 8.4 mmol/L (3-11); BUN 55 mg/dL (7-18); CO2 29.6 mmol/L (21.0-32.0); CREATININE 1.7 mg/dL (0.55-1.02); Calcium 10.5 mg/dL (8.5-10.1); Chloride 100 mmol/L (98-107); Estimated GFR 31.47 (mL/min/1.73m2); Glucose 181 mg/dL (74-106); Potassium 4.4 mmol/L (3.5-5.1); Sodium 138 mmol/L (136-145)
== END 2023-04-23 20:16 | disposition home or self-care (01) ==
LOC: LBN 20:15
PROVIDERS: PCP Nurse Practitioner; Visit Provider Nurse Practitioner
DX: R31.9 Hematuria, unspecified (principal); N18.9 Chronic kidney disease, unspecified; I10 Essential (primary) hypertension; D64.9 Anemia, unspecified; E11.9 Type 2 diabetes mellitus without complications
CPT/HCPCS: 80048; 87086

== ENCOUNTER → 2023-04-25 09:24 | Outpatient (BNVA) | payer MEDICARE, BC, SELFPAY | PROVIDERS: PCP Nurse Practitioner; Referring Provider Nurse Practitioner; Visit Provider Urology | DX: R31.0 Gross hematuria (principal); Z87.440 Personal history of urinary (tract) infections; I12.9 Hypertensive chronic kidney disease with stage 1 through stage 4 chronic kidney disease, or unspecified chronic kidney disease; E11.22 Type 2 diabetes mellitus with diabetic chronic kidney disease; N18.9 Chronic kidney disease, unspecified; J44.9 Chronic obstructive pulmonary disease, unspecified; D64.9 Anemia, unspecified; K92.2 Gastrointestinal hemorrhage, unspecified | CPT/HCPCS: 36415; 99214; 85025 ==

== ENCOUNTER 2023-04-25 14:55 | Outpatient (CLI) | payer MEDICARE, BC, SELFPAY ==
[2023-04-25 14:00] LABS: Abs Immature Grans 0.08 10^3/uL (0.0-0.06); Absolute Basophil Count 0.03 10^3/uL (0.0-0.2); Absolute Eosinophil Count 0.05 10^3/uL (0.0-0.7); Absolute Lymphocyte Count 0.94 10^3/uL (1.2-3.4); Absolute Monocyte Count 0.69 10^3/uL (0.1-0.8); Absolute Neutrophil Count 3.07 10^3/uL (1.2-6.7); Basophils % 0.6; HCT 31.8 % (36.0-46.0); HGB 9.6 g/dL (11.2-15.7); Immature Grans % 1.6; Lymphocytes % 19.3; MCH 30.5 pg (27.0-33.0); MCHC 30.2 % (32.0-36.0); MCV 101 fL (80-95); MPV 9.4 fL (8.0-11.0); Monocytes % 14.2; Neutrophils % 63.3; Platelet Count 224 10^3/uL (130-400); RBC 3.15 10^6/uL (3.93-5.22); RDW 15.6 % (11.7-14.6); RDW-SD 55.4 fL; WBC 4.86 10^3/uL (4.4-10.8)
== END 2023-04-25 14:56 | disposition home or self-care (01) ==
LOC: LBO 14:56
PROVIDERS: PCP Nurse Practitioner; Visit Provider Family Medicine
DX: D64.9 Anemia, unspecified (principal); K92.2 Gastrointestinal hemorrhage, unspecified
CPT/HCPCS: 36415; 85025

== ENCOUNTER 2023-05-09 04:19 | Outpatient (CLI) | payer MEDICARE, BC, SELFPAY ==
[2023-05-09 12:48] LABS: Abs Immature Grans 0.11 10^3/uL (0.0-0.06); Absolute Basophil Count 0.01 10^3/uL (0.0-0.2); Absolute Eosinophil Count 0.04 10^3/uL (0.0-0.7); Absolute Lymphocyte Count 0.75 10^3/uL (1.2-3.4); Absolute Monocyte Count 0.41 10^3/uL (0.1-0.8); Absolute Neutrophil Count 1.87 10^3/uL (1.2-6.7); Basophils % 0.3; Eosinophils % 1.3; HCT 35.9 % (36.0-46.0); HGB 10.9 g/dL (11.2-15.7); Immature Grans % 3.4; Lymphocytes % 23.5; MCH 30.9 pg (27.0-33.0); MCHC 30.4 % (32.0-36.0); MCV 102 fL (80-95); MPV 8.7 fL (8.0-11.0); Monocytes % 12.9; Neutrophils % 58.6; Platelet Count 189 10^3/uL (130-400); RBC 3.53 10^6/uL (3.93-5.22); RDW 15.4 % (11.7-14.6); RDW-SD 56.9 fL; WBC 3.19 10^3/uL (4.4-10.8)
[2023-05-09 13:18] LABS: Ferritin 16 ng/mL (8-252)
[2023-05-09 13:36] LABS: Iron 295 ug/dL (50-170); Total Iron Binding Capacity 439 ug/dL (250-450); Transferrin Sat 67 % (15-50)
== END 2023-05-09 04:20 | disposition home or self-care (01) ==
LOC: LBO 04:19
PROVIDERS: PCP Nurse Practitioner; Visit Provider Nurse Practitioner Adult Health
DX: D50.0 Iron deficiency anemia secondary to blood loss (chronic) (principal)
CPT/HCPCS: 36415; 82728; 83540; 83550; 85025

== ENCOUNTER 2023-05-16 02:21 | Outpatient (CLI) | payer MEDICARE, BC, SELFPAY ==
[2023-05-16 13:25] LABS: Abs Immature Grans 0.04 10^3/uL (0.0-0.06); Absolute Basophil Count 0.02 10^3/uL (0.0-0.2); Absolute Eosinophil Count 0.05 10^3/uL (0.0-0.7); Absolute Lymphocyte Count 0.78 10^3/uL (1.2-3.4); Absolute Neutrophil Count 1.99 10^3/uL (1.2-6.7); Basophils % 0.6; Eosinophils % 1.5; HCT 36.6 % (36.0-46.0); HGB 11.3 g/dL (11.2-15.7); Immature Grans % 1.2; Lymphocytes % 23.8; MCH 31.1 pg (27.0-33.0); MCHC 30.9 % (32.0-36.0); MCV 101 fL (80-95); MPV 8.9 fL (8.0-11.0); Monocytes % 12.2; Neutrophils % 60.7; Platelet Count 184 10^3/uL (130-400); RBC 3.63 10^6/uL (3.93-5.22); RDW 14.9 % (11.7-14.6); RDW-SD 54.7 fL; WBC 3.28 10^3/uL (4.4-10.8)
[2023-05-16 13:56] LABS: Iron 89 ug/dL (50-170); Total Iron Binding Capacity 396 ug/dL (250-450); Transferrin Sat 22 % (15-50)
[2023-05-16 13:59] LABS: ALT 32 U/L (14-59); AST 20 U/L (15-37); Albumin 3.9 g/dL (3.4-5.0); Alkaline Phosphatase 46 U/L (46-116); Anion Gap 8.3 mmol/L (3-11); BUN 30 mg/dL (7-18); Bilirubin, Total 0.3 mg/dL (0.2-1.0); CO2 30.7 mmol/L (21.0-32.0); CREATININE 1.6 mg/dL (0.55-1.02); Calcium 9.7 mg/dL (8.5-10.1); Chloride 100 mmol/L (98-107); Estimated GFR 33.84 (mL/min/1.73m2); Ferritin 99 ng/mL (8-252); Glucose 211 mg/dL (74-106); Potassium 4.1 mmol/L (3.5-5.1); Sodium 139 mmol/L (136-145); Total Protein 7.4 g/dL (6.4-8.2)
== END 2023-05-16 02:22 | disposition home or self-care (01) ==
LOC: LBO 02:21
PROVIDERS: Family Medicine; PCP Nurse Practitioner; Visit Provider Nurse Practitioner Adult Health
DX: K92.2 Gastrointestinal hemorrhage, unspecified (principal); D64.9 Anemia, unspecified; C50.912 Malignant neoplasm of unspecified site of left female breast; D50.0 Iron deficiency anemia secondary to blood loss (chronic)
CPT/HCPCS: 36415; 80053; 82728; 83540; 83550; 85025

== ENCOUNTER 2023-05-23 06:07 | Day surgery (SDC) | payer MEDICARE, BC, SELFPAY ==
[2023-05-23] VITALS (7 sets, daily range): BP systolic 95–153; BP diastolic 33–77; PULSE 67–73; RESP 17–24; TEMP 36.5–36.7; O2SAT 92–100; BMI 29.9
--- NOTE | 2023-05-23 06:12 | ANES.PREOP_ITS ---
General Info Date of Service Date Performed: 05/23/23 Height: 5 ft Weight: 69.4 kg Body Mass Index (BMI): 29.9 Surgical Procedure: Operation Date: 05/23/23 07:40 Proposed Procedure Side Surgeon p Cystoscopy/ Bi-Lat Retrograde/ Possible Transurethral Resection Bladder Tumor Romeo Lopez MD Meds Allergies and Home Medications Allergies Allergy/AdvReac Type Severity Reaction Status Date / Time propylene glycol Allergy Severe Rash Verified 05/23/23 06:32 anastrozole Allergy Intermediate unknown Verified 05/23/23 06:32 petrolatum,white Allergy Intermediate rash Verified 05/23/23 06:32 [From Petroleum Jelly] adhesive tape Allergy Unknown Skin Rash Verified 05/23/23 06:32 alendronate sodium Allergy Unknown Hives Verified 05/23/23 06:32 azithromycin AdvReac Intermediate dry heaves Verified 05/23/23 06:32 and diarrhea hydrocodone bitartrate AdvReac Intermediate Nausea Verified 05/23/23 06:32 [From Vicodin] liraglutide [From Victoza] AdvReac Intermediate diarhhea Verified 05/23/23 06:32 lorazepam [From Ativan] AdvReac Intermediate felt Verified 05/23/23 06:32 crazy paraben AdvReac Intermediate Skin Rash Verified 05/23/23 06:32 quaternium 15 AdvReac Intermediate generalized Verified 05/23/23 06:32 rash roflumilast AdvReac Intermediate Diarrhea Verified 05/23/23 06:32 LANDON Inhibitors AdvReac Unknown COUGH,DYSPN Verified 05/23/23 06:32 EA oxycodone HCl [From Percocet] AdvReac Unknown NAUSEA/VOMI Verified 05/23/23 06:32 TING Benzodiazepines AdvReac Visual Verified 05/23/23 06:32 Disturbances fragranced creams Allergy Intermediate Skin Rash Uncoded 05/23/23 06:32 parabin wax Allergy Intermediate Skin Rash Uncoded 05/23/23 06:32 diogolidinyl AdvReac Severe Skin Rash Uncoded 05/23/23 06:32 bisphenal AdvReac Intermediate Skin Rash Uncoded 05/23/23 06:32 Home Medication Medication Instructions Recorded aspirin 81 mg tablet,delayed 81 mg PO DAILY ##90 03/30/13 release (Aspir-) multivitamin (Daily Multi-Vitamin 1 ea PO DAILY 03/19/17 tablet) cyanocobalamin (vitamin B-12) 1,000 mcg PO DAILY #90 tab-caps 05/07/18 1,000 mcg tablet flash glucose scanning reader #1 ea 05/04/21 (FreeStyle Basia 2 [place]) denosumab 60 mg/mL subcutaneous 60 mg subcut [id number] 09/25/21 syringe (Prolia) letrozole 2.5 mg tablet 2.5 mg PO DAILY 09/25/21 fluocinolone 0.01 % topical 1 applic topical BID Itchy scalp 04/11/22 solution blood sugar diagnostic (Blood #250 ea 04/12/22 Glucose Test strips) valsartan 160 mg tablet 160 mg PO DAILY #90 tabs 04/17/22 fiber supplements PO DAILY 05/23/22 rosuvastatin 40 mg tablet 40 mg PO DAILY #90 tabs 08/13/22 pen needle, diabetic 32 gauge x #400 ea 08/29/22 (BD Ultra-Fine [place] Pen Needle) famotidine 40 mg tablet 40 mg PO DAILY #60 tabs 10/15/22 metoprolol succinate 50 mg 50 mg PO DAILY #90 tabs 10/15/22 tablet,extended release 24 hr calcium carbonate 500 mg calcium 500 mg PO PRN 10/24/22 (1,250 mg) chewable tablet calcium carbonate 600 mg-vitamin See Rx Instructions .Route 11/29/22 D3 20 mcg (800 unit) tablet .COMPLEX #180 tabs clotrimazole 10 mg jihan 10 mg mucous membrane ONCE #30 tabs 12/11/22 triamcinolone acetonide 0.1 % 1 applic topical BID PRN Apply to 12/26/22 topical ointment bilateral arm rash PRN #80 grams cetirizine 10 mg tablet 10 mg PO DAILY #90 tabs 12/31/22 magnesium oxide 400 mg (241.3 mg See Rx Instructions PO .COMPLEX 12/31/22 magnesium) tablet low magnesium level #180 tab-caps metformin 500 mg tablet 500 mg PO BID #180 tabs 12/31/22 pantoprazole 40 mg tablet,delayed 40 mg PO DAILY #60 tabs 01/30/23 release (Protonix) empagliflozin 25 mg tablet 25 mg PO DAILY AM #90 tab-caps 02/11/23 (Jardiance) nitroglycerin 0.4 mg sublingual 0.4 mg sublingual Q5M PRN chest 02/14/23 tablet pain #30 tabs sucralfate 1 gram tablet (Carafate) 1 g PO QACHS #60 tabs 02/27/23 lancets 28 gauge (Sure Comfort #100 ea 03/20/23 Lancets) tramadol 50 mg tablet 50 mg PO TID PRN pain #12 tabs 03/20/23 flash glucose sensor (FreeStyle #6 ea 03/25/23 Basia 2 Sensor kit) albuterol 90 mcg/actuation aerosol 90 mcg inhalation Q4H PRN 03/27/23 inhaler hydrochlorothiazide 25 mg tablet 25 mg PO DAILY AM #90 tab-caps 03/28/23 insulin glargine 100 unit/mL (3 See Rx Instructions subcut BID Dx: 03/29/23 mL) subcutaneous pen (Lantus E11.9 to maintain HbA1c less than Solostar U-100 Insulin) 7% insulin lispro 100 unit/mL 11 unit subcut TID high blood sugar 03/29/23 subcutaneous pen (Humalog KwikPen (U-100) Insulin) metoclopramide HCl 10 mg tablet 10 mg PO QACHS PRN nausea, 03/29/23 (Reglan) vomiting, or bloating #60 tabs tiotropium 2.5 mcg-olodaterol 2.5 2 puff inhalation DAILY #4 grams 03/29/23 mcg/actuation mist for inhalation (Stiolto Respimat) ferrous sulfate 325 mg (65 mg 325 mg PO DAILY #60 tabs 04/15/23 iron) tablet (iron) Current Visit Medications: Current Medications Generic Name Dose Route Start Last Admin Trade Name Freq PRN Reason Stop Dose Admin Ringer's Solution 1,000 mls @ 80 mls/hr 05/23/23 06:00 IV 06/21/23 23:59 INFUSION KALI Cefazolin Sodium/Dextrose 2 gm in 50 mls @ 100 mls/hr 05/23/23 06:00 Ancef Duplex IVPB 05/23/23 16:00 PREOP KALI IV Miscellaneous Supplies 1 each 05/23/23 06:00 Iv Access IV 06/21/23 23:59 DIRECTED KALI Sodium Chloride 0 ml 05/23/23 06:00 Normal Saline Flush 10 Ml Syr IV 06/21/23 23:59 PRN PRN Sodium Chloride 0 ml 05/23/23 06:00 Normal Saline 10 Ml Vial IJ 06/21/23 23:59 DIRECTED PRN Sterile Water 0 ml 05/23/23 06:00 Water,Injection,Sterile 10 Ml Vial IJ 06/21/23 23:59 DIRECTED PRN PFSH Active Problems Active Problems: Problem Status Onset Code 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 GI bleed K92.2 Demand ischemia I24.8 Chronic respiratory failure with hypoxia J96.11 Anemia D64.9 Esophagitis determined by endoscopy ~12/2022 K20.90 Compression fracture of L3 vertebra ~2021 S32.030A Mucous cyst of digit of left hand ~12/2022 M67.442 Trigger finger, left middle finger M65.332 History of breast cancer Z85.3 Dermatitis, seborrheic L21.9 Anemia, macrocytic D53.9 Essential hypertension 05/16/04 I10 Microalbuminuria due to type 2 diabetes mellitus E11.29, R80.9 Hyperlipidemia 03/18/07 E78.5 Type 2 diabetes mellitus, with long-term current use of insulin ~1999 E11.9, Z79.4 Renal artery stenosis, [place], bilateral I70.1 Atherosclerosis of both carotid arteries 11/12/16 I65.23 COPD, very severe J44.9 ASCVD (arteriosclerotic cardiovascular disease) I25.10 Non-ST elevation (NSTEMI) myocardial infarction ~12/2020 I21.4 CKD (chronic kidney disease) N18.9 Obstructive sleep apnea 03/02/14 G47.33 Medical History Medical History (Updated 05/23/23 @ 06:50 by Romeo Lopez MD) Allergic contact dermatitis due to other agents Allergic rhinitis Anemia (02/11/14) Suspect chronic dz/bone marrow suppression s/p breast CA tx (radiation); s/p GI workup (possible AVMs?), NL B12/folate, elevated Epo, NL retic count; chronic iron supplementation Back pain Breast cancer in female (~05/2021) R 2002, L 2003 s/p B/L partial mastectomy, XRT, & tamoxifen. 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 Smith Enteritis Esophageal thrush Gross hematuria Headache Heart murmur 07/11/2016 echo: mild-moderate mitral regurgitation Hiatal hernia (02/11/14) Smaller portions [place] 10[place]nothing found[place] [facility] [place]omagnesemia (03/04/17) Intraabdominal calcification (11/14/15) Incidental finding on CT 2 mm between bladder and uterus, no further eval required, [facility] Iron deficiency anemia (01/02/17) S/p colo & EGD 05/2015, then capsule endoscopy & push enteroscopy with no definitive etiology identified; 11/14/2017: repeat colonoscopy (due to return of anemia) showing a colonic angioectasia, which may have been source of bleeding & anemia (no overt bleeding found). Fe supplementation & monitor 10/29/22 [place] [facility] [place] Leg cramps (04/01/14) Low Mg+ --> supplementation helped, but caused diarrhea; handout on dietary Mg+ given Malignant neoplasm of unspecified site of left female breast (~10/2021) 11/06/21 Dr Mcgill ([facility] Rad[facility]On[facility]); Radiation Therapy planned 12/21/21-hormone receptor positive Osteopenia (02/14/16) DEXA 02/14/16: Fem neck t-score -1.2 --> WHO FRAX major osteoporotic 13% & hip fx 1.3% risk --> does not qualify for bisphosphonates --> Ca & vit D 03/2017 L3 compression fx --> re-calc WHO FRAX major osteoporotic 21% & hip fx 2.3% risk --> now qualifies for bisphosphonate tx, started 03/2017 Probable allergic rxn to Alendronate (1st pill Sat, Hiv Th and stayed thru today (but no worsening), 07/05. Agree to STOP for now. 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 Dr Agee H/O colonoscopy (~11/02/22) 11/02/22 , 1 cecal polyp removed - f/u 10 years H/O endoscopy (~06/21/22) 11/02/22 Upper GI endoscopy H/O laminectomy L5S1 H/O laminectomy (~10/06/12) L5S1 Dr. Jarrod Ballard H/O partial mastectomy (~10/26/21) Left breast History of hysterectomy, supracervical Oophrectomy, Right (~2007) For unknown reason S/P breast biopsy, left (05/09/21) u/s guided Core Bx Status post coronary artery stent placement (~01/27/21) Tooth Extractions Multiple Tobacco Smoking/Tobacco Use Status: Former Tobacco Use Alcohol Alcohol Intake: former Details: none Substance Use Substance use: Never Substance use type: does not use Prental History History Para Hx # Term Pregnancies Multiple births Hx # Pregnancies Ectopic pregnancies AB induced Hx Number of Living Children 4 AB spontaneous Vital Signs and Lab Results Vital Signs Most Recent Vital Signs in EMR: Temp Pulse Resp BP Pulse Ox 36.7 C 73 17 153/36 H 96 05/23/23 06:19 05/23/23 06:19 05/23/23 06:19 05/23/23 06:19 05/23/23 06:19 Lab Results Blood Type / Crossmatch: No Data to Display Complete Blood Count: White Blood Count 3.28 10^3/uL (4.4-10.8) L 05/16/23 13:18 Red Blood Count 3.63 10^6/uL (3.93-5.22) L 05/16/23 13:18 Hemoglobin 11.3 g/dL (11.2-15.7) 05/16/23 13:18 Hematocrit 36.6 % (36.0-46.0) 05/16/23 13:18 Platelet Count 184 10^3/uL (130-400) 05/16/23 13:18 Complete Metabolic Panel: Sodium 139 mmol/L (136-145) 05/16/23 13:18 Potassium 4.1 mmol/L (3.5-5.1) 05/16/23 13:18 Chloride 100 mmol/L (98-107) 05/16/23 13:18 Carbon Dioxide 30.7 mmol/L (21.0-32.0) 05/16/23 13:18 BUN 30 mg/dL (7-18) H 05/16/23 13:18 Creatinine 1.6 mg/dL (0.55-1.02) H 05/16/23 13:18 Est GFR (CKD-EPI 2020) 33.84 (mL/min/1.73m2) 05/16/23 13:18 Calcium 9.7 mg/dL (8.5-10.1) 05/16/23 13:18 Albumin 3.9 g/dL (3.4-5.0) 05/16/23 13:18 Glucose 211 mg/dL (74-106) H 05/16/23 13:18 Liver Function Panel: Alanine Aminotransferase (ALT/SGPT) 32 U/L (14-59) 05/16/23 13: 18 Aspartate Amino Transf (AST/SGOT) 20 U/L (15-37) 05/16/23 13:18 Coagulation Panel: No Data to Display Cardiac Panel: No Data to Display Arterial Blood Gas: No Data to Display Venous Blood Gas: No Data to Display Pancreas Panel: No Data to Display Thyroid Panel: No Data to Display Infectious Disease: No Data to Display Blood Cultures: No Data to Display Toxicology Panel: No Data to Display Imaging and Studies Imaging and Studies Study information below may be from another EMR and interpreted by another provider. Please see original notes in EMR for more complete details. EKG Summary: 04/24: sinus rhythm, st minimal depression anterior and lateral leads. Echocardiogram Summary: 04/24: LVEF 55-60%, normal RV size and fxn. AoV sclerosis without stenosis/regurg. mild MR. Trace TR. Carotid Artery Summary:: 12/23: 50-69% stenosis proximal ICA bilaterally. Pulmonary Function Summary: 04/22: severe obstructive lung dz without bronchodila tor response. Anesthesia Assessment and Plan Anesthesia History Personal History: No History of Anesthesia Complications Family History: No Family History of Anesthesia Complications Exercise Tolerance Exercise Tolerance: Metabolic Equivalents>4 Cardiac & Pulmonary Exam Cardiac Exam: Normal S1/S2 Heart Sounds Pulmonary Exam: Clear Bilateral Breath Sounds Implantable Cardiac Device Does patient have a Pacemaker or an ICD?: No Airway Exam Known Difficult Airway: No Mallampati Class: 3 Mouth Opening: Normal (> 3cm) Thyromental Distance: Greater than 3 cm Neck Range of Motion: Full ROM Neck Circumference: Normal Teeth Condition: Removable Dentures/Plates Upper and Removable Dentures/Plates Lower ASA Classification ASA Score: ASA 3 Emergency Case?: No NPO Status NPO Status: NPO Clears >2 hours, Solids >8 hours Anesthesia Plan Resuscitation Status: Full Code Anesthesia Technique: General Anesthesia Airway Planned: LMA Monitors Used: Standard Monitors Preoperative Comments:: 72 yo female with bladder tumor for TURBT. Sig PMHx: NSTEMI/CAD (2 stents in 2020, no chest pain), HTN, celiac/mesenteric stenosis, carotid/renal stenosis, severe COPD (feels great, rarely wheezy/rescue albuterol use, home 02 at night and with exertion), GERD/esophagatis/GI bleeds (denies frequest heartburn/gerd, sleeps with HOB flat, does not wake up hoarse or with acid feeling. states rare GERD symptoms), spinal stenosis, breast CA, CKDIII, DM2, former smoker, Previous Anes: - [facility]/EGD/colo x many, prop, natural airway, no issues. Discussed biggest concern is her lungs and that less is likely more with her.
--- NOTE | 2023-05-23 06:40 | W.PM.HP.N ---
Date of service: 05/23/23 Time of Service: 06:41 Assessment and Plan Assessment and plan (1) Gross hematuria: Assessment and plan: We will complete her hematuria workup with a cystoscopy today History of Present Illness History of Present Illness Chief Complaint: Gross hematuria Narrative: This is a 72-year-old woman who was previously seen with hematuria.? The hematuria only occurred when she had an active urinary tract infection.? Follow-up urine sample showed no blood, so no invasive work-up was accomplished.? About a month ago, she had a single episode of gross, painless hematuria.? The following night, she saw blood on the toilet tissue after wiping.? She had no additional symptoms but did see gross hematuria on one more occasion (last night in fact). She is not on any type of anticoagulant.? She has a very remote history of smoking.? She has a history of breast cancer and was treated with radiation, but the radiation was not in the pelvic region.? She has no history of chemical exposure associated with bladder cancers. Her urinalysis back in March showed the presence of blood but no infection on culture.? Repeat urinalysis a few days ago shows no blood on urinalysis and the culture is still pending. Review of Systems Narrative: No fevers or chills No vision change or dysphasia Hx diabetes. No thyroid dysfunction COPD. No hemoptysis No chest pain or palpitations GI [place] [facility] [place] No nausea, vomiting, hepatitis, ulcers, jaundice No seizures, strokes or peripheral neuropathy Anemia - receiving iron infusions. No bleeding disorder No gout or arthralgia PFSH All Active Problems (Updated 05/23/23 @ 06:50 by Romeo Lopez MD) Iron deficiency anemia secondary to blood loss (chronic) (Acute) 05/01/23 Hem/Onc GI bleed (Chronic) Demand ischemia (Acute) Chronic respiratory failure with hypoxia (Acute) Anemia (Chronic) Esophagitis determined by endoscopy (Acute ~12/2022) Compression fracture of L3 vertebra (Acute ~2021) Mucous cyst of digit of left hand (Acute ~12/2022) s/p excision of mucous cyst DOS: 01/08/23 Trigger finger, left middle finger (Acute) 40 mg Depo-Medrol injection: 11/12/2022 s/p trigger release DOS: 01/08/23 History of breast cancer (Acute) Dermatitis, seborrheic (Acute) 07/06/22 Dr Moreno Anemia, macrocytic (Acute) 05/03/22 Hem/Onc Note Essential hypertension (Acute 05/16/04) Microalbuminuria due to type 2 diabetes mellitus (Acute) Hyperlipidemia (Acute 03/18/07) Type 2 diabetes mellitus, with long-term current use of insulin (Acute ~1999) Renal artery stenosis, [place], bilateral (Chronic) [facility] [place]; most recent OV 06/01/21 Atherosclerosis of both carotid arteries (Chronic 11/12/16) [facility] [place]; most recent OV 06/01/21; Recommend annual carotid US COPD, very severe (Chronic) [facility] Pulm O2 dependent ASCVD (arteriosclerotic cardiovascular disease) (Chronic) [facility] [place] Vascular note: Asymptomatic bilateral carotid artery stenosis Non-ST elevation (NSTEMI) myocardial infarction (Acute ~12/2020) S/p proximal LCX stent placement 01/27/21 [facility] CKD (chronic kidney disease) (Chronic) Obstructive sleep apnea (Chronic 03/02/14) Bipap w/ 2L 02 09/06/2019 Medical History (Updated 05/23/23 @ 06:50 by Romeo Lopez MD) Allergic contact dermatitis due to other agents Allergic rhinitis Anemia (02/11/14) Suspect chronic dz/bone marrow suppression s/p breast CA tx (radiation); s/p GI workup (possible AVMs?), NL B12/folate, elevated Epo, NL retic count; chronic iron supplementation Back pain Breast cancer in female (~05/2021) R 2002, L 2004 s/p B/L partial mastectomy, XRT, & tamoxifen. 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 Smith Enteritis Esophageal thrush Gross hematuria Headache Heart murmur 07/11/2016 echo: mild-moderate mitral regurgitation Hiatal hernia (02/11/14) Smaller portions Endoscopy 2012 2/2 anemia (nothing found), [facility] Hypomagnesemia (03/04/17) Intraabdominal calcification (11/14/15) Incidental finding on CT 2 mm between bladder and uterus, no further eval required, [facility] Iron deficiency anemia (01/02/17) S/p colo & EGD 05/2015, then capsule endoscopy & push enteroscopy with no definitive etiology identified; 11/14/2017: repeat colonoscopy (due to return of anemia) showing a colonic angioectasia, which may have been source of bleeding & anemia (no overt bleeding found). Fe supplementation & monitor 10/29/22 Seen [place] [facility] [place] Leg cramps (04/01/14) Low Mg+ --> supplementation helped, but caused diarrhea; handout on dietary Mg+ given Malignant neoplasm of unspecified site of left female breast (~10/2021) 11/06/21 Dr Mcgill ([facility] Rad[facility]On[facility]); Radiation Therapy planned 12/21/21-hormone receptor positive Osteopenia (02/14/16) DEXA 02/14/16: Fem neck t-score -1.2 --> WHO FRAX major osteoporotic 13% & hip fx 1.3% risk --> does not qualify for bisphosphonates --> Ca & vit D 03/2017 L3 compression fx --> re-calc WHO FRAX major osteoporotic 21% & hip fx 2.3% risk --> now qualifies for bisphosphonate tx, started 03/2017 Probable allergic rxn to Alendronate (1st pill Wed, Hiv Th and stayed thru today (but no worsening), 07/05. Agree to STOP for now. 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 Dr Agee H/O colonoscopy (~11/02/22) 11/02/22 DH, 1 cecal polyp removed - f/u 10 years H/O endoscopy (~06/21/22) DH 11/02/22 DH Upper GI endoscopy H/O laminectomy L5S1 H/O laminectomy (~10/06/12) L5S1 Dr. Jarrod Ballard H/O partial mastectomy (~10/26/21) Left breast History of hysterectomy, supracervical Oophrectomy, Right (~2007) For unknown reason S/P breast biopsy, left (05/09/21) u/s guided Core Bx Status post coronary artery stent placement (~01/27/21) Tooth Extractions Multiple Family History Sister Breast cancer Mother , 89 Alzheimer's dementia Breast cancer Father , AGE 75 Alcohol abuse Cirrhosis Sister Neoplasm uterine CA Sister Heart disease Brother Heart disease Niece Breast cancer Social History Smoking/Tobacco Use Status: Former Tobacco Use tobacco type: cigarettes Quit Date: 09/02/95 Tobacco: How many years used: 25 Smoking risk assessment performed?: Yes Alcohol Intake: former Details: none Drug use: Never Substance use type: does not use Adopted: No Caregiver/Support person: No Foster care: No Household members: spouse Housing: house Number of Children: 4 Communication Needs: None Pets and animals: No Current gender identity: female What type of physical activity do you participate in: regular exercise Duration: < 15 minutes/day Frequency: 3-4 times per week Mell/Confucianist: Anabaptist Seatbelt use: always Drive intox or ride w/intox route relief driver: No Working smoke detector in home: Yes Fire extinguisher in home: Yes Carbon monox detector in home: Yes Do you feel safe at home: Yes Do you feel safe in your relationship?: Yes History History Para Hx # Term Pregnancies Multiple births Hx # Pregnancies Ectopic pregnancies AB induced Hx Number of Living Children 4 AB spontaneous Meds Allergies and Home Medications Allergies Allergy/AdvReac Type Severity Reaction Status Date / Time propylene glycol Allergy Severe Rash Verified 05/23/23 06:32 anastrozole Allergy Intermediate unknown Verified 05/23/23 06:32 petrolatum,white Allergy Intermediate rash Verified 05/23/23 06:32 [From Petroleum Jelly] adhesive tape Allergy Unknown Skin Rash Verified 05/23/23 06:32 alendronate sodium Allergy Unknown Hives Verified 05/23/23 06:32 azithromycin AdvReac Intermediate dry heaves Verified 05/23/23 06:32 and diarrhea hydrocodone bitartrate AdvReac Intermediate Nausea Verified 05/23/23 06:32 [From Vicodin] liraglutide [From Victoza] AdvReac Intermediate diarhhea Verified 05/23/23 06:32 lorazepam [From Ativan] AdvReac Intermediate felt Verified 05/23/23 06:32 crazy paraben AdvReac Intermediate Skin Rash Verified 05/23/23 06:32 quaternium 15 AdvReac Intermediate generalized Verified 05/23/23 06:32 rash roflumilast AdvReac Intermediate Diarrhea Verified 05/23/23 06:32 LANDON Inhibitors AdvReac Unknown COUGH,DYSPN Verified 05/23/23 06:32 EA oxycodone HCl [From Percocet] AdvReac Unknown NAUSEA/VOMI Verified 05/23/23 06:32 TING Benzodiazepines AdvReac Visual Verified 05/23/23 06:32 Disturbances fragranced creams Allergy Intermediate Skin Rash Uncoded 05/23/23 06:32 parabin wax Allergy Intermediate Skin Rash Uncoded 05/23/23 06:32 diogolidinyl AdvReac Severe Skin Rash Uncoded 05/23/23 06:32 bisphenal AdvReac Intermediate Skin Rash Uncoded 05/23/23 06:32 Home Medications Medication Instructions Recorded Confirmed Type aspirin 81 mg tablet,delayed 81 mg PO DAILY ##90 03/30/13 05/23/23 History release (Aspir-) Oxygen l NS At Night ##2 04/19/16 02/19/19 Clinic multivitamin (Daily Multi-Vitamin 1 ea PO DAILY 03/19/17 05/23/23 History tablet) cyanocobalamin (vitamin B-12) 1,000 mcg PO DAILY #90 tab-caps 05/07/18 05/21/23 Rx 1,000 mcg tablet flash glucose scanning reader #1 ea 05/04/21 05/21/23 Rx (FreeStyle Basia 2 [place]) denosumab 60 mg/mL subcutaneous 60 mg subcut [id number] 09/25/21 05/23/23 History syringe (Prolia) letrozole 2.5 mg tablet 2.5 mg PO DAILY 09/25/21 05/21/23 History fluocinolone 0.01 % topical 1 applic topical BID Itchy scalp 04/11/22 05/21/23 History solution blood sugar diagnostic (Blood #250 ea 04/12/22 05/21/23 Rx Glucose Test strips) valsartan 160 mg tablet 160 mg PO DAILY #90 tabs 04/17/22 05/23/23 Rx fiber supplements PO DAILY 05/23/22 04/25/23 History rosuvastatin 40 mg tablet 40 mg PO DAILY #90 tabs 08/13/22 05/23/23 Rx pen needle, diabetic 32 gauge x #400 ea 08/29/22 05/21/23 Rx 5/32 (BD Ultra-Fine [place] Pen Needle) famotidine 40 mg tablet 40 mg PO DAILY #60 tabs 10/15/22 05/23/23 Rx metoprolol succinate 50 mg 50 mg PO DAILY #90 tabs 10/15/22 05/23/23 Rx tablet,extended release 24 hr calcium carbonate 500 mg calcium 500 mg PO PRN 10/24/22 05/21/23 History (1,250 mg) chewable tablet calcium carbonate 600 mg-vitamin See Rx Instructions .Route 11/29/22 05/23/23 Rx D3 20 mcg (800 unit) tablet .COMPLEX #180 tabs clotrimazole 10 mg jihan 10 mg mucous membrane ONCE #30 tabs 12/11/22 05/21/23 Rx triamcinolone acetonide 0.1 % 1 applic topical BID PRN Apply to 12/26/22 05/23/23 Rx topical ointment bilateral arm rash PRN #80 grams cetirizine 10 mg tablet 10 mg PO DAILY #90 tabs 12/31/22 05/21/23 Rx magnesium oxide 400 mg (241.3 mg See Rx Instructions PO .COMPLEX 12/31/22 05/23/23 Rx magnesium) tablet low magnesium level #180 tab-caps metformin 500 mg tablet 500 mg PO BID #180 tabs 12/31/22 05/23/23 Rx pantoprazole 40 mg tablet,delayed 40 mg PO DAILY #60 tabs 01/30/23 05/23/23 Rx release (Protonix) empagliflozin 25 mg tablet 25 mg PO DAILY AM #90 tab-caps 02/11/23 05/23/23 Rx (Jardiance) nitroglycerin 0.4 mg sublingual 0.4 mg sublingual Q5M PRN chest 02/14/23 05/21/23 Rx tablet pain #30 tabs sucralfate 1 gram tablet (Carafate) 1 g PO QACHS #60 tabs 02/27/23 05/23/23 Rx lancets 28 gauge (Sure Comfort #100 ea 03/20/23 05/21/23 Rx Lancets) tramadol 50 mg tablet 50 mg PO TID PRN pain #12 tabs 03/20/23 05/23/23 Rx flash glucose sensor (FreeStyle #6 ea 03/25/23 05/21/23 Rx Basia 2 Sensor kit) albuterol 90 mcg/actuation aerosol 90 mcg inhalation Q4H PRN 03/27/23 05/21/23 History inhaler hydrochlorothiazide 25 mg tablet 25 mg PO DAILY AM #90 tab-caps 03/28/23 05/23/23 Rx insulin glargine 100 unit/mL (3 See Rx Instructions subcut BID Dx: 03/29/23 05/23/23 History mL) subcutaneous pen (Lantus E11.9 to maintain HbA1c less than Solostar U-100 Insulin) 7% insulin lispro 100 unit/mL 11 unit subcut TID high blood sugar 03/29/23 05/23/23 History subcutaneous pen (Humalog KwikPen (U-100) Insulin) metoclopramide HCl 10 mg tablet 10 mg PO QACHS PRN nausea, 03/29/23 05/21/23 Rx (Reglan) vomiting, or bloating #60 tabs tiotropium 2.5 mcg-olodaterol 2.5 2 puff inhalation DAILY #4 grams 03/29/23 05/23/23 Rx mcg/actuation mist for inhalation (Stiolto Respimat) ferrous sulfate 325 mg (65 mg 325 mg PO DAILY #60 tabs 04/15/23 05/23/23 Rx iron) tablet (iron) Exam Const General: cooperative Neck Neck: supple Resp Effort & Inspection: normal respiratory effort Auscultation: clear to auscultation bilaterally Cardio Rate: regular rate Rhythm: regular rhythm GI Palpation: soft and no masses Neuro General: patient alert, patient awake and patient oriented x3 Results Imaging Imaging Studies: She had normal appearing kidneys on a CT abdomen and pelvis with contrast done 03/2023 Last Vital Signs Temp 36.7 C 05/23/23 06:19 Pulse 73 05/23/23 06:19 Resp 17 05/23/23 06:19 BP 153/36 H 05/23/23 06:19 Pulse Ox 96 05/23/23 06:19 Time Spent Time spent with Patient: <40 minutes Time was spent: other
[2023-05-23] MEDS: Lactated Ringers 1,000 ML 80 ML IV (06:51)
[2023-05-23] MEDS: ceFAZolin 2 GM/50 ML BAG IVPB (07:38)
[2023-05-23] MEDS: Lidocaine 2% Jelly 6 ML SYR (07:57)
[2023-05-23] MEDS: Omnipaque 300 MG/ML 50 ML BTL (08:04)
--- NOTE | 2023-05-23 08:08 | PDOC.DSDIS_ITS ---
Date of service: 05/23/23 Time of Service: 08:08 Discharge Plan Disposition Patient Disposition: Home Discharge Details Reason For Visit: cystoscopy Attending Provider: Romeo Lopez Primary Care Provider: Janina Calloway Home Meds and New Rx's Prescriptions: No Action triamcinolone acetonide 0.1 % ointment 1 applic topical BID PRN (Reason: Apply to bilateral arm rash PRN) Qty: 80 1RF nitroglycerin 0.4 mg tablet, sublingual 0.4 mg sublingual Q5M PRN (Reason: chest pain) Qty: 30 6RF Rx Instructions: do not exceed 3 doses per episode clotrimazole 10 mg jihan 10 mg mucous membrane ONCE Qty: 30 4RF Rx Instructions: Use calcium carbonate 500 mg calcium (1,250 mg) tablet,chewable 500 mg PO PRN (DME) lancets [Sure Comfort Lancets] 28 gauge misc 1 ea Miscellaneous DAILY Qty: 100 3RF Rx Instructions: Dx: E11.9 to maintain HbA1C less than 7% albuterol 90 mcg/actuation aerosol 90 mcg inhalation Q4H PRN insulin glargine [Lantus Solostar U-100 Insulin] 100 unit/mL (3 mL) insulin pen See Rx Instructions subcut BID Rx Instructions: 15 units AM and 15 units PM subcut; insulin lispro [Humalog KwikPen Insulin] 100 unit/mL insulin pen 11 unit subcut TID Patient Comments: INJECT 11 UNITS UNDER THE SKIN BEFORE MEALS DIRECTED metoclopramide HCl [Reglan] 10 mg tablet 10 mg PO QACHS PRN (Reason: nausea, vomiting, or bloating) Qty: 60 5RF Stiolto Respimat 2.5-2.5 mcg/actuation mist 2 puff inhalation DAILY Qty: 4 12RF Oxygen EACH NS At Night Qty: 2 0RF Patient Comments: 2 L at night and CPAP- patient states she wore these 11/10/17 multivitamin [Daily Multi-Vitamin] 1 EACH tablet 1 ea PO DAILY Patient Comments: patient states she took this roughly one week ago cyanocobalamin (vitamin B-12) 1,000 mcg tablet 1,000 mcg PO DAILY Qty: 90 3RF (DME) FreeStyle Basia 2 [place] Misc See Rx Instructions .ROUTE .MEDSUPPLY Qty: 1 0RF Rx Instructions: As directed Prolia 60 mg/mL syringe 60 mg subcut [id number] letrozole 2.5 mg tablet 2.5 mg PO DAILY Rx Instructions: 09/22/21 Hem/Onc prescribes. fluocinolone 0.01 % solution 1 applic topical BID (DME) Blood Glucose Test Strip See Rx Instructions .ROUTE .MEDSUPPLY Qty: 250 1RF Rx Instructions: As directed to check blood glucose three times daily. On insulin. Dispense covered brand (Freestyle Lite) valsartan 160 mg tablet 160 mg PO DAILY Qty: 90 3RF Rx Instructions: Dose increase 03/12/2022 fiber supplements PO DAILY rosuvastatin 40 mg tablet 40 mg PO DAILY Qty: 90 3RF Hold Instructions: Home Medication placed on hold at Doctor's office ([facility]) pen needle, diabetic [BD Ultra-Fine [place] Pen Needle] 32 gauge x 5/32 needle See Rx Instructions .Route Qty: 400 3RF Rx Instructions: Use with insulin QID. Dispense covered brand e11.9 metoprolol succinate 50 mg tablet extended release 24 hr 50 mg PO DAILY Qty: 90 3RF calcium carbonate-vitamin D3 600 mg-20 mcg (800 unit) tablet See Rx Instructions .ROUTE .COMPLEX Qty: 180 3RF Dose Instruction: TAKE TWO TABLETS BY MOUTH EVERY DAY Rx Instructions: TAKE TWO TABLETS BY MOUTH EVERY DAY magnesium oxide 400 mg (241.3 mg magnesium) tablet See Rx Instructions PO .COMPLEX Qty: 180 3RF Rx Instructions: 400 mg AM and PM as per María Mendoza cetirizine 10 mg tablet 10 mg PO DAILY Qty: 90 3RF metformin 500 mg tablet 500 mg PO BID MDD 1000 mg Qty: 180 3RF Hold Instructions: Changed by Provider Rx Instructions: DOSED FOR RENAL FUNCTION pantoprazole [Protonix] 40 mg tablet,delayed release (DR/EC) 40 mg PO DAILY Qty: 60 3RF Jardiance 25 mg tablet 25 mg PO DAILY AM Qty: 90 3RF Rx Instructions: Administer once daily in the morning, with or without food sucralfate [Carafate] 1 gram tablet 1 g PO QACHS Qty: 60 0RF (DME) FreeStyle Basia 2 Sensor Kit See Rx Instructions .ROUTE .MEDSUPPLY Qty: 6 3RF Rx Instructions: As directed hydrochlorothiazide 25 mg tablet 25 mg PO DAILY AM Qty: 90 3RF aspirin [Aspir-81] 81 MG tablet,delayed release (DR/EC) 81 mg PO DAILY Qty: 90 Hold Instructions: Hold until GI clears to restart tramadol 50 mg tablet 50 mg PO TID PRN (Reason: pain) Qty: 12 0RF ferrous sulfate [iron] 325 mg (65 mg iron) tablet 325 mg PO DAILY Qty: 60 0RF Rx Instructions: Take in the AM at least 1/2 hour before a meal. Take with an OTC Vit C tab or OJ. famotidine 40 mg tablet 40 mg PO DAILY Qty: 60 0RF Discharge Instructions Additional Instructions: followup yearly for urinalysis Activity:: Activity as Tolerated Shower/Bathe:: 24 hours Diet:: As Tolerated Discharge Orders Discharge Orders: Discharge Order (Routine); Ordered 05/23/23 Ordered By: Romeo Lopez DS: Diagnosis Discharge Diagnosis (1) Gross hematuria:
--- NOTE | 2023-05-23 08:10 | ROE_ITS ---
Date of service: 05/23/23 Time of Service: 08:11 Operative Note Operative Note DATE OF PROCEDURE: 05/23/23 PRE-OP DIAGNOSIS: Gross hematuria POST-OP DIAGNOSIS: same PROCEDURE: cystoscopy with bilateral retrograde pyelograms SURGEON: Romeo Lopez ANESTHESIA TYPE: General:No Airway Refer to Anesthesia Record ESTIMATED BLOOD LOSS: 0 PATHOLOGY: none sent COMPLICATIONS: None Patient was transported to: PACU Patient's condition: stable Implants: none Indications: This is a 72-year-old woman who has a history of gross hematuria. Her initial occurrence occurred while she had a urinary tract infection. Both the gross and microscopic hematuria resolved when her UTI was treated. She is since had several episodes of gross painless hematuria even with negative urine cultures. She has had a CT scan with contrast which showed no renal masses and no hydronephrosis. Prior renal ultrasound showed the possibility of some mild right hydronephrosis. She presents now for cystoscopy with bilateral retrograde pyelogram. Findings: cystocele no bladder lesions Procedure Description: The patient was brought to the operating room on 05/23/2023. She was given preoperative IV antibiotics. After successful induction of general anesthesia without intubation, she was placed in the dorsal lithotomy position. Her genitalia was prepped and draped. 2% Xylocaine jelly was instilled into the urethra to act as a local anesthetic. A 22 [place] rigid cystoscope was passed through the urethra into the bladder. The bladder was inspected using a 30 degree lens. The base of the bladder had descended consistent with a cystocele. Both ureteral orifices appeared normal. No blood was seen coming from either orifice. Each orifice was cannulated using a 5 [place] access catheter and retrograde pyelograms were obtained by injecting Omnipaque through the access catheter under fluoroscopic guidance. The ureters and collecting systems appeared normal bilaterally. Both sides drained promptly on a 5-minute drainage film. The remainder of the bladder was then inspected with a 30 and 70 degree lens. No papillary or nodular lesions were seen throughout the bladder. The bladder was emptied and the cystoscope was withdrawn. The patient tolerated this procedure well with no complications.
--- NOTE | 2023-05-23 08:11 | DI.RAD_ITS ---
Exam(s) XR RETROGRADE IN OR EXAM: XR RETROGRADE IN OR CLINICAL HISTORY: bilat retrograde pyleogram TECHNIQUE: 2D and realtime digital imaging was performed. CONTRAST MATERIAL: Refer to procedure report. COMPARISON: CT CT ABDOMEN PELVIS WO from 03/20/2023 FINDINGS: Fluoroscopy was provided for Dr. Lopez during the performance of a retrograde evaluation of the dae l collecting system. Please refer to the procedure report for complete details. Ka,r=5.5 mGy IMPRESSION: RADIATION DOSE DELIVERED:
--- NOTE | 2023-05-23 08:36 | W.ANESPOSTOP ---
Postoperative Evaluation Date, Time and Location Date Performed: 05/23/23 Time Performed: 08:37 Patient Location: PACU Vital Signs Most Recent Imported Vital Signs: Most Recent Vital Signs Temp Pulse Resp BP Pulse Ox 36.5 C 70 24 114/38 L 97 05/23/23 08:33 05/23/23 08:33 05/23/23 08:33 05/23/23 08:33 05/23/23 08:33 Pain Score Most Recent Pain Score: Most Recent Pain Score Pain Level 0 05/23/23 06:19 Assessment Mental Status: Awake (Alert & Oriented to Patient Baseline) Airway and Respiratory Function: Patent airway with normal (patient baseline) respiratory exam Cardiovascular Function: Hemodynamically Stable Hydration Status: Adequately Hydrated Nausea & Vomiting: No Nausea or Vomiting Pain: Pt. Denies Any Pain Peripheral Nerve Block: Patient did not receive a nerve block
[2023-05-23] MEDS: Phenazopyridine 200 MG TAB PO (08:52)
== END 2023-05-23 10:00 | disposition home or self-care (01) ==
PROVIDERS: PCP Nurse Practitioner; Visit Provider Urology
PROC: 0TBB8ZZ Excision of Bladder, Via Natural or Artificial Opening Endoscopic (ICD-10-PCS; CPT 52005; principal; 2023-05-23 07:30)
DX: R31.0 Gross hematuria (principal); Z85.3 Personal history of malignant neoplasm of breast; Z87.891 Personal history of nicotine dependence; E11.22 Type 2 diabetes mellitus with diabetic chronic kidney disease; N18.9 Chronic kidney disease, unspecified; Z79.4 Long term (current) use of insulin; N81.10 Cystocele, unspecified
CPT/HCPCS: 52005; 74420; J0690; J1100; J2371; J2405; Q9967

== ENCOUNTER 2023-06-05 03:20 | Outpatient (CLI) | payer MEDICARE, BC, SELFPAY ==
[2023-06-05 10:14] LABS: Abs Immature Grans 0.04 10^3/uL (0.0-0.06); Absolute Basophil Count 0.01 10^3/uL (0.0-0.2); Absolute Eosinophil Count 0.04 10^3/uL (0.0-0.7); Absolute Lymphocyte Count 0.75 10^3/uL (1.2-3.4); Absolute Monocyte Count 0.31 10^3/uL (0.1-0.8); Absolute Neutrophil Count 2.01 10^3/uL (1.2-6.7); Basophils % 0.3; Eosinophils % 1.3; HCT 38.8 % (36.0-46.0); HGB 12.3 g/dL (11.2-15.7); Immature Grans % 1.3; Lymphocytes % 23.7; MCH 31.4 pg (27.0-33.0); MCHC 31.7 % (32.0-36.0); MCV 99 fL (80-95); MPV 8.9 fL (8.0-11.0); Monocytes % 9.8; Neutrophils % 63.6; Platelet Count 159 10^3/uL (130-400); RBC 3.92 10^6/uL (3.93-5.22); RDW-SD 50.8 fL; WBC 3.16 10^3/uL (4.4-10.8)
[2023-06-05 10:35] LABS: Iron 86 ug/dL (50-170); Total Iron Binding Capacity 369 ug/dL (250-450); Transferrin Sat 23 % (15-50)
[2023-06-05 10:43] LABS: Ferritin 231 ng/mL (8-252)
== END 2023-06-05 03:21 | disposition home or self-care (01) ==
PROVIDERS: PCP Nurse Practitioner; Visit Provider Nurse Practitioner Adult Health
DX: D50.0 Iron deficiency anemia secondary to blood loss (chronic) (principal)
CPT/HCPCS: 36415; 82728; 83540; 83550; 85025

== ENCOUNTER → 2023-06-18 09:31 | Outpatient (BNVA) | payer MEDICARE, BC, SELFPAY | PROVIDERS: PCP Nurse Practitioner; Referring Provider Nurse Practitioner; Visit Provider Student in an Organized Health Care Education/Training Program | DX: J44.9 Chronic obstructive pulmonary disease, unspecified (principal); J96.11 Chronic respiratory failure with hypoxia; G47.33 Obstructive sleep apnea (adult) (pediatric); Z87.891 Personal history of nicotine dependence | CPT/HCPCS: 99213 ==

== ENCOUNTER → 2023-07-08 10:18 | Outpatient (CLI) | payer MEDICARE, BC, SELFPAY ==
--- NOTE | 2023-07-08 10:37 | DI.RAD_ITS ---
Exam(s) XR CHEST 2V PA LATERAL EXAM: XR CHEST 2V PA LATERAL CLINICAL HISTORY: cough,r05.9 TECHNIQUE: 2D digital imaging was performed of the chest. Two images were obtained. PA and lateral views were obtained. COMPARISON: CR XR CHEST 2V PA LATERAL from 01/04/2021 CR XR CHEST 2V PA LATERAL from 02/01/2022 CR,XR XR CHEST 2V PA LATERAL from 04/15/2023 FINDINGS: MEDIASTINUM: Normal. Stable appearance of the mediastinum. HEART: Normal. PULMONARY VASCULATURE: Normal. LUNGS: Clear. PLEURAL SPACE: No pleural effusion or pneumothorax. BONE:Within normal limits for the patient's age. Degenerative changes are seen in the spine in the s houlders bilaterally. OTHER FINDINGS:Normal. IMPRESSION: No acute pulmonary findings. DATA REPOSITORY: RADIATION DOSE DELIVERED:
== END ==
PROVIDERS: PCP Nurse Practitioner; Visit Provider Physician Assistant
DX: R05.9 Cough, unspecified (principal)
CPT/HCPCS: 71046

== ENCOUNTER → 2023-07-12 02:31 | Outpatient (CLI) | payer MEDICARE, BC, SELFPAY ==
--- NOTE | 2023-07-12 08:56 | DI.DEXA_ITS ---
Exam(s) XR DEXA BONE DENSITY W/WO JUAN EXAM: XR DEXA BONE DENSITY W/WO JUAN CLINICAL HISTORY: SCREENING FOR OSTEOPOROSIS IN POSTMENOPAUSAL WOMAN,Z78.0 TECHNIQUE: Routine DEXA evaluation of the lumbar spine, hip, or forearm. COMPARISON: Prior DEXA scan July 2021 FINDINGS: Performed on a [employer] unit. Lateral image: No compression fracture evident. Lumbar Spine total T-score: 0.0. This is identical reading 04 July 2021. Hip total T-score:-0.2. Prior 2000 reading was 0.0 Independent reading at the level of the femoral neck yields T-score of -1.4 Forearm total T-score: -0.8 IMPRESSION: Bone mineral density measures in the osteopenia range because of the femoral neck reading. Fracture risk is moderate. Note: Any spine fracture indicates 5x risk for subsequent spine fracture and 2x risk for subsequent h ip fracture. World Health Organization criteria for BMD interpretation classify patients: Normal...... T- Score at or above -1.0 Osteopenic... T- Score between -1.0 and -2.5 Osteoporosis... T-Score at or below -2.5
== END ==
PROVIDERS: PCP Nurse Practitioner; Visit Provider Student in an Organized Health Care Education/Training Program
DX: Z78.0 Asymptomatic menopausal state (principal); Z13.820 Encounter for screening for osteoporosis; M81.0 Age-related osteoporosis without current pathological fracture
CPT/HCPCS: 77080

== ENCOUNTER 2023-08-24 09:09 | Emergency (ER) | payer MEDICARE, BC, SELFPAY ==
[2023-08-24 09:14] VITALS: BP 138/75; PULSE 99; RESP 15; TEMP 36.5; O2SAT 88
--- NOTE | 2023-08-24 09:43 | ED.GENADUL_ITS ---
Discharge Plan Disposition Patient Disposition: Home Discharge Details Clinical Impression: Kaylee rash of groin Primary Care Provider: Janina Calloway ED Provider: Franck Erwin Home Meds and New Rx's Prescriptions: New fluconazole 50 mg tablet See Rx Instructions .ROUTE .COMPLEX Qty: 5 0RF Rx Instructions: 150mg on day one and 75mg on day 3 if not improved No Action montelukast 10 mg tablet 10 mg PO DAILY insulin glargine [Lantus Solostar U-100 Insulin] 100 unit/mL (3 mL) insulin pen See Rx Instructions subcut BID Rx Instructions: 20 Units daily--pt instructed to increase by 2 units every 3 days if fasting BG consistently >150. Decrease 2 units if fasting BG consistently <90--[facility] [place]o Note 06/12/23 nitroglycerin 0.4 mg tablet, sublingual 0.4 mg sublingual Q5M PRN (Reason: chest pain) Qty: 30 6RF Rx Instructions: do not exceed 3 doses per episode (DME) lancets [Sure Comfort Lancets] 28 gauge misc 1 ea Miscellaneous DAILY Qty: 100 3RF Rx Instructions: Dx: E11.9 to maintain HbA1C less than 7% albuterol 90 mcg/actuation aerosol 90 mcg inhalation Q4H PRN Stiolto Respimat 2.5-2.5 mcg/actuation mist 2 puff inhalation DAILY Qty: 4 12RF prednisone 20 mg tablet 40 mg PO DAILY Qty: 10 0RF nystatin 100,000 unit/gram ointment 1 applic topical TID Qty: 60 3RF Rx Instructions: Ointment not cream due to propylene glycol allergy. desonide 0.05 % ointment 1 applic topical DAILY Qty: 15 3RF Oxygen EACH NS At Night Qty: 2 0RF Patient Comments: 2 L at night and CPAP- patient states she wore these 11/10/17 multivitamin [Daily Multi-Vitamin] 1 EACH tablet 1 ea PO DAILY Patient Comments: patient states she took this roughly one week ago (DME) FreeStyle Basia 2 [place] Misc See Rx Instructions .ROUTE .MEDSUPPLY Qty: 1 0RF Rx Instructions: As directed Prolia 60 mg/mL syringe 60 mg subcut [id number] letrozole 2.5 mg tablet 2.5 mg PO DAILY Rx Instructions: 09/22/21 Hem/Onc prescribes. fluocinolone 0.01 % solution 1 applic topical BID (DME) Blood Glucose Test Strip See Rx Instructions .ROUTE .MEDSUPPLY Qty: 250 1RF Rx Instructions: As directed to check blood glucose three times daily. On insulin. Dispense covered brand (Freestyle Lite) fiber supplements PO DAILY (DME) pen needle, diabetic [BD Ultra-Fine [place] Pen Needle] 32 gauge x 5/32 needle See Rx Instructions .Route Qty: 400 3RF Rx Instructions: Use with insulin QID. Dispense covered brand e11.9 metoprolol succinate 50 mg tablet extended release 24 hr 50 mg PO DAILY Qty: 90 3RF calcium carbonate-vitamin D3 600 mg-20 mcg (800 unit) tablet See Rx Instructions .ROUTE .COMPLEX Qty: 180 3RF Dose Instruction: TAKE TWO TABLETS BY MOUTH EVERY DAY Rx Instructions: TAKE TWO TABLETS BY MOUTH EVERY DAY magnesium oxide 400 mg (241.3 mg magnesium) tablet See Rx Instructions PO .COMPLEX Qty: 180 3RF Rx Instructions: 400 mg AM and PM as per María Mendoza cetirizine 10 mg tablet 10 mg PO DAILY Qty: 90 3RF metformin 500 mg tablet 500 mg PO BID MDD 1000 mg Qty: 180 3RF Hold Instructions: Changed by Provider Rx Instructions: DOSED FOR RENAL FUNCTION pantoprazole [Protonix] 40 mg tablet,delayed release (DR/EC) 40 mg PO DAILY Qty: 60 3RF Jardiance 25 mg tablet 25 mg PO DAILY AM Qty: 90 3RF Rx Instructions: Administer once daily in the morning, with or without food sucralfate [Carafate] 1 gram tablet 1 g PO QACHS Qty: 60 0RF (DME) FreeStyle Basia 2 Sensor Kit See Rx Instructions .ROUTE .MEDSUPPLY Qty: 6 3RF Rx Instructions: As directed hydrochlorothiazide 25 mg tablet 25 mg PO DAILY AM Qty: 90 3RF ferrous sulfate [iron] 325 mg (65 mg iron) tablet 325 mg PO DAILY Qty: 60 1RF Rx Instructions: Take in the AM at least 1/2 hour before a meal. Take with an OTC Vit C tab o r OJ. clotrimazole 10 mg jihan 10 mg mucous membrane ONCE Qty: 30 4RF Rx Instructions: Use valsartan 160 mg tablet 160 mg PO DAILY Qty: 90 3RF calcium citrate 200 mg (950 mg) tablet 200 mg PO BID Qty: 180 3RF Trulicity 0.75 mg/0.5 mL pen injector 1.5 mg subcut QWEEK Rx Instructions: 0.75mg weekly for 4 weeks--[facility] [place]o Note 06/12/23 increased 1.5mg weekly 07/17/23 [facility] Endo Note insulin lispro [Humalog KwikPen Insulin] 100 unit/mL insulin pen 12 unit subcut TID Patient Comments: 18 Units with meals--[facility] Endo Note 06/12/23 12 Units with meals--[facility] Endo Note 07/17/23 rosuvastatin 40 mg tablet See Rx Instructions .ROUTE .COMPLEX Qty: 90 3RF Hold Instructions: Home Medication placed on hold at Doctor's office Dose Instruction: TAKE ONE TABLET BY MOUTH EVERY DAY Rx Instructions: TAKE ONE TABLET BY MOUTH EVERY DAY aspirin [Aspir-81] 81 MG tablet,delayed release (DR/EC) 81 mg PO DAILY Qty: 90 Hold Instructions: Hold until GI clears to restart tramadol 50 mg tablet 50 mg PO TID PRN (Reason: pain) Qty: 12 0RF famotidine 40 mg tablet 40 mg PO DAILY Qty: 60 0RF Discharge Instructions Instructions: Skin Yeast Infection (ED) Additional Instructions: Please continue to monitor symptoms and return to the emergency department immed iately for any new or significant worsening of your condition. Please use the barrier cream after anytime you use the restroom and keep area as dry as possible. Please take the oral medication as directed and continue all of your other normally prescribed medications. If not improving please follow-up with your primary care provider for reassessment Referrals: Janina Calloway NP [Primary Care Provider] - 5 days (If not improving) Discharge Data Discharge Date/Time-TO BE ENTERED AT DEPARTURE: 08/24/23 09:58 Medical Decision Making Patient presenting the emergency department for chief complaint of yeast infection of her groin. Patient reports that she had been on steroids and antibiotics and shortly after finishing this course she developed a yeast infection. Patient saw her primary care provider 5 days ago and was placed on nystatin which has not helped symptoms at all. Patient denies fever or chills or other systemic symptoms but does state that rash is getting worse and written she wipes from going to the restroom there is small streaks of blood. Patient has significant past medical history of diabetes, COPD, extensive allergies, anemia, degenerative joint disease. Physical exam shows well-appearing stable patient with no signs of obvious distress or severe discomfort, significant excoriation and irritation to the perineal area along with the rectum and lower aspects of the external genitalia. Exam is otherwise noncontributory. Fingerstick glucose was checked and was 119. Given failed topical treatment will place patient on Diflucan, provided patient with barrier cream and barrier wipes to aid in healing, and informed patient to monitor symptoms and return immediately for any new or significant worsening. After discussion of diagnosis and plan of care patient has no further needs, questions, or concerns and states clear understanding to return to the emergency department for any worsening symptoms. This documentation was generated using Genemationation system, please disregard any oddities of phrase or misspellings. HPI General Mode of arrival: ambulatory . Date/Time Provider Initiated Documentation: 08/24/23 09:11 . Limitations to Documentation: no limitations . Information obtained by: patient and RN notes reviewed . History of Present Illness 72 year old F presents to the emergency department with the chief complaint of Groin rash/yeast infection, described as moderate and severe, and is localized to the genitals. Patient started experiencing this week(s) (1) and it has been constant. No relieving factors improve symptom(s), Medication worsens symptoms . Patient notes no other symptoms.. Patient did receive the following treatments prior to arrival, none Related Data Home Medications Medication Instructions Recorded Confirmed aspirin 81 mg tablet,delayed 81 mg PO DAILY ##90 03/30/13 08/24/23 release (Aspir-) multivitamin (Daily Multi-Vitamin 1 ea PO DAILY 03/19/17 08/24/23 tablet) flash glucose scanning reader #1 ea 05/04/21 08/24/23 (FreeStyle Basia 2 [place]) denosumab 60 mg/mL subcutaneous 60 mg subcut [id number] 09/25/21 08/24/23 syringe (Prolia) letrozole 2.5 mg tablet 2.5 mg PO DAILY 09/25/21 08/24/23 fluocinolone 0.01 % topical 1 applic topical BID Itchy scalp 04/11/22 08/24/23 solution blood sugar diagnostic (Blood #250 ea 04/12/22 08/24/23 Glucose Test strips) fiber supplements PO DAILY 05/23/22 07/06/23 pen needle, diabetic 32 gauge x #400 ea 08/29/22 08/24/23 (BD Ultra-Fine [place] Pen Needle) famotidine 40 mg tablet 40 mg PO DAILY #60 tabs 10/15/22 08/24/23 metoprolol succinate 50 mg 50 mg PO DAILY #90 tabs 10/15/22 08/24/23 tablet,extended release 24 hr calcium carbonate 600 mg-vitamin See Rx Instructions .Route 11/29/22 08/24/23 D3 20 mcg (800 unit) tablet .COMPLEX #180 tabs cetirizine 10 mg tablet 10 mg PO DAILY #90 tabs 12/31/22 08/24/23 magnesium oxide 400 mg (241.3 mg See Rx Instructions PO .COMPLEX 12/31/22 08/24/23 magnesium) tablet low magnesium level #180 tab-caps metformin 500 mg tablet 500 mg PO BID #180 tabs 12/31/22 08/24/23 pantoprazole 40 mg tablet,delayed 40 mg PO DAILY #60 tabs 01/30/23 08/24/23 release (Protonix) empagliflozin 25 mg tablet 25 mg PO DAILY AM #90 tab-caps 02/11/23 08/24/23 (Jardiance) nitroglycerin 0.4 mg sublingual 0.4 mg sublingual Q5M PRN chest 02/14/23 08/24/23 tablet pain #30 tabs sucralfate 1 gram tablet (Carafate) 1 g PO QACHS #60 tabs 02/27/23 08/24/23 lancets 28 gauge (Sure Comfort #100 ea 03/20/23 08/24/23 Lancets) tramadol 50 mg tablet 50 mg PO TID PRN pain #12 tabs 03/20/23 08/24/23 flash glucose sensor (FreeStyle #6 ea 03/25/23 08/24/23 Basia 2 Sensor kit) albuterol 90 mcg/actuation aerosol 90 mcg inhalation Q4H PRN 03/27/23 08/24/23 inhaler hydrochlorothiazide 25 mg tablet 25 mg PO DAILY AM #90 tab-caps 03/28/23 08/24/23 tiotropium 2.5 mcg-olodaterol 2.5 2 puff inhalation DAILY #4 grams 03/29/23 08/24/23 mcg/actuation mist for inhalation (Stiolto Respimat) insulin glargine 100 unit/mL (3 See Rx Instructions subcut BID Dx: 06/14/23 08/24/23 mL) subcutaneous pen (Lantus E11.9 to maintain HbA1c less than Solostar U-100 Insulin) 7% ferrous sulfate 325 mg (65 mg 325 mg PO DAILY #60 tabs 06/15/23 08/24/23 iron) tablet (iron) montelukast 10 mg tablet 10 mg PO DAILY 06/18/23 08/24/23 clotrimazole 10 mg jihan 10 mg mucous membrane ONCE #30 tabs 07/08/23 08/24/23 calcium citrate 200 mg (950 mg) 200 mg PO BID #180 tabs 07/15/23 08/24/23 tablet valsartan 160 mg tablet 160 mg PO DAILY #90 tabs 07/15/23 08/24/23 dulaglutide 0.75 mg/0.5 mL 1.5 mg subcut QWEEK 07/18/23 08/24/23 subcutaneous pen injector (Trulicity) insulin lispro 100 unit/mL 12 unit subcut TID high blood sugar 07/18/23 08/24/23 subcutaneous pen (Humalog KwikPen (U-100) Insulin) prednisone 20 mg tablet 40 mg (2 x 20 mg) PO DAILY #10 tabs 07/30/23 08/24/23 rosuvastatin 40 mg tablet See Rx Instructions .Route 08/12/23 08/24/23 .COMPLEX #90 tabs desonide 0.05 % topical ointment 1 applic topical DAILY forehead 08/19/23 08/24/23 daily for up to 5 days #15 grams nystatin 100,000 unit/gram topical 1 applic topical TID perineal rash 08/19/23 08/24/23 ointment #60 grams fluconazole 50 mg tablet See Rx Instructions .Route 08/24/23 .COMPLEX #5 tabs Previous Rx's Medication Instructions Recorded flash glucose scanning reader #1 ea 05/04/21 (FreeStyle Basia 2 [place]) blood sugar diagnostic (Blood #250 ea 04/12/22 Glucose Test strips) pen needle, diabetic 32 gauge x #400 ea 12/28/22 5/32 (BD Ultra-Fine [place] Pen Needle) famotidine 40 mg tablet 40 mg PO DAILY #60 tabs 10/15/22 metoprolol succinate 50 mg 50 mg PO DAILY #90 tabs 10/15/22 tablet,extended release 24 hr calcium carbonate 600 mg-vitamin See Rx Instructions .Route 11/29/22 D3 20 mcg (800 unit) tablet .COMPLEX #180 tabs cetirizine 10 mg tablet 10 mg PO DAILY #90 tabs 12/31/22 magnesium oxide 400 mg (241.3 mg See Rx Instructions PO .COMPLEX 12/31/22 magnesium) tablet low magnesium level #180 tab-caps metformin 500 mg tablet 500 mg PO BID #180 tabs 12/31/22 pantoprazole 40 mg tablet,delayed 40 mg PO DAILY #60 tabs 01/30/23 release (Protonix) empagliflozin 25 mg tablet 25 mg PO DAILY AM #90 tab-caps 02/11/23 (Jardiance) nitroglycerin 0.4 mg sublingual 0.4 mg sublingual Q5M PRN chest 02/14/23 tablet pain #30 tabs sucralfate 1 gram tablet (Carafate) 1 g PO QACHS #60 tabs 02/27/23 lancets 28 gauge (Sure Comfort #100 ea 03/20/23 Lancets) tramadol 50 mg tablet 50 mg PO TID PRN pain #12 tabs 03/20/23 flash glucose sensor (FreeStyle #6 ea 03/25/23 Basia 2 Sensor kit) hydrochlorothiazide 25 mg tablet 25 mg PO DAILY AM #90 tab-caps 03/28/23 tiotropium 2.5 mcg-olodaterol 2.5 2 puff inhalation DAILY #4 grams 03/29/23 mcg/actuation mist for inhalation (Stiolto Respimat) ferrous sulfate 325 mg (65 mg 325 mg PO DAILY #60 tabs 06/15/23 iron) tablet (iron) clotrimazole 10 mg jihan 10 mg mucous membrane ONCE #30 tabs 07/08/23 calcium citrate 200 mg (950 mg) 200 mg PO BID #180 tabs 07/15/23 tablet valsartan 160 mg tablet 160 mg PO DAILY #90 tabs 07/15/23 prednisone 20 mg tablet 40 mg (2 x 20 mg) PO DAILY #10 tabs 07/30/23 rosuvastatin 40 mg tablet See Rx Instructions .Route 08/12/23 .COMPLEX #90 tabs desonide 0.05 % topical ointment 1 applic topical DAILY forehead 08/19/23 daily for up to 5 days #15 grams nystatin 100,000 unit/gram topical 1 applic topical TID perineal rash 08/19/23 ointment #60 grams fluconazole 50 mg tablet See Rx Instructions .Route 08/24/23 .COMPLEX #5 tabs Allergies Allergy/AdvReac Type Severity Reaction Status Date / Time propylene glycol Allergy Severe Rash Verified 08/24/23 09:20 anastrozole Allergy Intermediate unknown Verified 08/24/23 09:20 petrolatum,white Allergy Intermediate rash Verified 08/24/23 09:20 [From Petroleum Jelly] adhesive tape Allergy Unknown Skin Rash Verified 08/24/23 09:20 alendronate sodium Allergy Unknown Hives Verified 08/24/23 09:20 azithromycin AdvReac Intermediate dry heaves Verified 08/24/23 09:20 and diarrhea hydrocodone bitartrate AdvReac Intermediate Nausea Verified 08/24/23 09:20 [From Vicodin] liraglutide [From Victoza] AdvReac Intermediate diarhhea Verified 08/24/23 09:20 lorazepam [From Ativan] AdvReac Intermediate felt Verified 08/24/23 09:20 crazy paraben AdvReac Intermediate Skin Rash Verified 08/24/23 09:20 quaternium 15 AdvReac Intermediate generalized Verified 08/24/23 09:20 rash roflumilast AdvReac Intermediate Diarrhea Verified 08/24/23 09:20 zolpidem [From Ambien] AdvReac Intermediate confusion Verified 08/24/23 09:20 LANDON Inhibitors AdvReac Unknown COUGH,DYSPN Verified 08/24/23 09:20 EA oxycodone HCl [From Percocet] AdvReac Unknown NAUSEA/VOMI Verified 08/24/23 09:20 TING Benzodiazepines AdvReac Visual Verified 08/24/23 09:20 Disturbances fragranced creams Allergy Intermediate Skin Rash Uncoded 08/24/23 09:20 parabin wax Allergy Intermediate Skin Rash Uncoded 08/24/23 09:20 diogolidinyl AdvReac Severe Skin Rash Uncoded 08/24/23 09:20 bisphenal AdvReac Intermediate Skin Rash Uncoded 08/24/23 09:20 General Stated Complaint: RashLesion BRUNA: 4 Review of Systems Constitutional Constitutional: Denies chills and Denies fever(s) Gastrointestinal Gastrointestinal: Denies constipation, Denies fecal incontinence, Denies diarrhea and Denies loose stools Genitourinary Genitourinary: Reports as per HPI, Reports genital pruritis, Denies genital lesions, Denies dysuria, Denies pelvic pain and Reports vaginal pruritus Integumentary/Breasts Skin/Breast: Reports erythema and Reports rash PFSH All Active Problems Kaylee rash of groin (Acute) Arteriovenous malformation (Acute ~06/2023) 06/27/23 Gastro Former smoker (Acute) Asymptomatic menopausal state (Acute) [facility] Endo Note 06/12/23 Type 2 diabetes mellitus with hyperglycemia, with long-term current use of insulin (Acute) [facility] Endo Note 06/12/23 Ductal carcinoma in situ (DCIS) of left breast (Acute) [facility] Hem/Onc note 06/05/23 Iron deficiency anemia secondary to blood loss (chronic) (Acute) 05/01/23 Hem/Onc GI bleed (Chronic) Demand ischemia (Acute) Chronic respiratory failure with hypoxia (Acute) Anemia (Chronic) Esophagitis determined by endoscopy (Acute ~12/2022) Compression fracture of L3 vertebra (Acute ~2021) Mucous cyst of digit of left hand (Acute ~12/2022) s/p excision of mucous cyst DOS: 01/08/23 Trigger finger, left middle finger (Acute) 40 mg Depo-Medrol injection: 11/12/2022 s/p trigger release DOS: 01/08/23 History of breast cancer (Acute) Dermatitis, seborrheic (Acute) 07/06/22 Dr Moreno Anemia, macrocytic (Acute) 05/03/22 Hem/Onc Note Essential hypertension (Acute 05/16/04) Microalbuminuria due to type 2 diabetes mellitus (Acute) Hyperlipidemia (Acute 03/18/07) Type 2 diabetes mellitus, with long-term current use of insulin (Acute ~1999) Renal artery stenosis, [place], bilateral (Chronic) [facility] Vascular Surgery; most recent OV 06/01/21 Atherosclerosis of both carotid arteries (Chronic 11/12/16) [facility] Vascular Surgery; most recent OV 06/01/21; Recommend annual carotid US COPD, very severe (Chronic) [facility] Pulm O2 dependent ASCVD (arteriosclerotic cardiovascular disease) (Chronic) [facility] 06/01/21 Vascular note: Asymptomatic bilateral carotid artery stenosis Non-ST elevation (NSTEMI) myocardial infarction (Acute ~12/2020) S/p proximal LCX stent placement 01/27/21 [facility] CKD (chronic kidney disease) (Chronic) Obstructive sleep apnea (Chronic 03/02/14) Bipap w/ 2L 02 09/06/2019 Medical History Esophageal thrush Allergic contact dermatitis due to other agents Malignant neoplasm of unspecified site of left female breast (~10/2021) 11/06/21 Dr Mcgill ([facility] Rad/Onc Office); Radiation Therapy planned 12/21/21-hormone receptor positive Gross hematuria Vulvar irritation Breast cancer in female (~05/2021) R 2002, L 2003 s/p B/L partial mastectomy, XRT, & tamoxifen. 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) Estrogen receptor positive s/p RXT, surgical removal of tumor Enteritis Back pain Post-menopausal bleeding Pelvic pain Pericarditis (~12/2020) S/p TN Vaginitis and vulvovaginitis, unspecified Tobacco use disorder 30-50 PY, QUIT 1999 Compression fracture of lumbar vertebra (03/14/17) Depression (11/30/02) s/p of brother (on SSRI for short time) Solitary pulmonary nodule (12/22/15) Incidental finding of 6 mm pulm nodule RLL on 11/07/[address] with 6 month f/u chest CT recommended; 04/2016 6-month f/u chest CT: resolution of nodule Pneumonia Spinal stenosis (02/04/14) Multi level on MRI Reflux esophagitis (07/16/12) LA GRADE B , EGD W/ BX 05/04/15 Osteopenia (02/14/16) DEXA 02/14/16: Fem neck t-score -1.2 --> WHO FRAX major osteoporotic 13% & hip fx 1.3% risk --> does not qualify for bisphosphonates --> Ca & vit D 03/2017 L3 compression fx --> re-calc WHO FRAX major osteoporotic 21% & hip fx 2.3% risk --> now qualifies for bisphosphonate tx, started 03/2017 Probable allergic rxn to Alendronate (1st pill Sat, Hiv Th and stayed thru today (but no worsening), 07/05. Agree to STOP for now. Leg cramps (04/01/14) Low Mg+ --> supplementation helped, but caused diarrhea; handout on dietary Mg+ given Iron deficiency anemia (01/02/17) S/p colo & EGD 05/2015, then capsule endoscopy & push enteroscopy with no definitive etiology identified; 11/14/2017: repeat colonoscopy (due to return of anemia) showing a colonic angioectasia, which may have been source of bleeding & anemia (no overt bleeding found). Fe supplementation & monitor 10/29/22 Seen by [facility] Hem/Onc Intraabdominal calcification (11/14/15) Incidental finding on CT 2 mm between bladder and uterus, no further eval required, AOC Hypomagnesemia (03/04/17) Hiatal hernia (02/11/14) Smaller portions Endoscopy 10/04 anemia (nothing found), [facility] Heart murmur 07/11/2016 echo: mild-moderate mitral regurgitation DJD (degenerative joint disease) (02/04/14) Lumbar spine--multiple level on MRI Surgery 10/2011, [facility] Dr. 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/21/16 [facility] Vascular Surgery consult: moderate stenosis, not source of clinical pathology, & no intervention or further evaluation indicated Anemia (02/11/14) Suspect chronic dz/bone marrow suppression s/p breast CA tx (radiation); s/p GI workup (possible AVMs?), NL B12/folate, elevated Epo, NL retic count; chronic iron supplementation Allergic rhinitis Superior mesenteric artery stenosis Chronic GI bleeding Headache Surgical History H/O colonoscopy (~11/02/22) 11/02/22 , 1 cecal polyp removed - f/u 10 years H/O endoscopy (~06/21/22) 11/02/22 Upper GI endoscopy H/O partial mastectomy (~10/26/21) Left breast S/P breast biopsy, left (05/09/21) u/s guided Core Bx History of hysterectomy, supracervical Status post coronary artery stent placement (~01/27/21) H/O laminectomy (~10/06/12) L5S1 Dr. Jarrod Ballard H/O laminectomy L5S1 Tooth Extractions Multiple Oophrectomy, Right (~2007) For unknown reason Extraction of cataract left eye surgical removal with intraocular lens implant. Dr Agee Breast, Lumpectomy (~2003) B/L for breast CA Biopsy, Lymph Node (~2003) (L) axilla for breast CA Family History Sister Breast cancer Mother , 89 Alzheimer's dementia Breast cancer Father , AGE 75 Alcohol abuse Cirrhosis Sister Neoplasm uterine CA Sister Heart disease Brother Heart disease Niece Breast cancer Social History Smoking/Tobacco Use Status: Former Tobacco Use tobacco type: cigarettes Quit Date: 09/02/95 Tobacco: How many years used: 25 Smoking risk assessment performed?: Yes Alcohol Intake: former Details: none Drug use: Never Substance use type: does not use Adopted: No Caregiver/Support person: No Foster care: No Household members: spouse Housing: house Number of Children: 4 Communication Needs: None Pets and animals: No Current gender identity: female What type of physical activity do you participate in: regular exercise Duration: < 15 minutes/day Frequency: 3-4 times per week Mell/Jehovah'S Witness: Taoism Seatbelt use: always Drive 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 or ride w/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 Working smoke detector in home: Yes Fire extinguisher in home: Yes Carbon monox detector in home: Yes Do you feel safe at home: Yes Do you feel safe in your relationship?: Yes History History Para Hx # Term Pregnancies Multiple births Hx # Pregnancies Ectopic pregnancies AB induced Hx Number of Living Children 4 AB spontaneous Exam Const General: cooperative, no acute distress and not ill appearing Orientation: alert, awake and oriented x3 HENMT Mouth: moist mucous membranes Resp Effort & Inspection: normal respiratory effort, able to speak in complete sentences and no respiratory distress GI Rectal Exam - female: tenderness and visual inspection abnormal visual inspection abnormal: excoriations External Female Exam: erythema, externally tender, no external swelling, no lesions and no lacerations Neuro General: patient alert, patient awake, patient oriented x3, moves all extremities and no focal motor deficits Course Vital Signs Vital signs: Vital Signs Temperature 36.5 C 08/24/23 09:14 Pulse 99 H 08/24/23 09:14 Respiratory Rate 15 08/24/23 09:14 Blood Pressure 138/75 08/24/23 09:14 Pulse Oximetry 88 L 08/24/23 09:14 Temperature 36.5 C 08/24/23 09:14 Temperature Source Temporal Artery Scan 08/24/23 09:14 Pulse 99 H 08/24/23 09:14 Respiratory Rate 15 08/24/23 09:14 Respiratory Effort Normal 08/24/23 09:17 Blood Pressure 138/75 08/24/23 09:14 Blood Pressure Position Sitting 08/24/23 09:14 Pulse Oximetry 88 L 08/24/23 09:14 Oxygen Delivery Method Room Air 08/24/23 09:14 Oxygen Flow Rate 0 08/24/23 09:14 Pain Level 1 08/24/23 09:14
== END 2023-08-24 09:58 | disposition home or self-care (01) ==
PROVIDERS: Emergency Provider Nurse Practitioner Family; PCP Nurse Practitioner
DX: B37.49 Other urogenital candidiasis (principal); Z79.82 Long term (current) use of aspirin; Z79.899 Other long term (current) drug therapy; E11.9 Type 2 diabetes mellitus without complications; Z79.4 Long term (current) use of insulin; E78.5 Hyperlipidemia, unspecified; J44.9 Chronic obstructive pulmonary disease, unspecified; C50.912 Malignant neoplasm of unspecified site of left female breast; C50.911 Malignant neoplasm of unspecified site of right female breast; Z17.0 Estrogen receptor positive status [ER+]; Z79.84 Long term (current) use of oral hypoglycemic drugs
CPT/HCPCS: 82962; 99283

== ENCOUNTER 2023-09-18 17:31 | Observation (INO) | payer MEDICARE, BC, SELFPAY ==
[2023-09-18] VITALS (27 sets, daily range): BP systolic 112–168; BP diastolic 38–101; PULSE 104–127; RESP 9–30; TEMP 37.3–38.5; O2SAT 78–97
--- NOTE | 2023-09-18 17:41 | W.ED.GENAD ---
HPI General Date/Time Provider Initiated Documentation: 09/18/23 17:40. HPI Narrative: 73 year-old female presents to ED today by POV/ambulating with her with a chief complaint of cough, fevers, shortness of breath, seen at [facility] and sent to ED- tachycardia, hypoxic- has chronic COPD with onset of a productive cough 2-3 weeks ago that got better but is back again worse. Quality described as cough with dark green sputum, body aches, mild weakness, shortness of breath, no radiation to chest pain, altered mentation, nausea/vomiting, diarrhea, is tolerating PO intake. Severity is described as severe. Palliating factors include at-home nebulizer treatments not helping. Provoking factors include nothing specific. Events leading up to the incident/Associated Symptoms: Patient uses at-home O2 at night 3L through a CPAP machine. Patient not anticoagulated. Related Data Home Medications Medication Instructions Recorded Confirmed multivitamin (Daily Multi-Vitamin 1 ea PO DAILY 03/19/17 09/18/23 tablet) flash glucose scanning reader #1 ea 05/04/21 09/18/23 (Stealth10yle Basia 2 [place]) denosumab 60 mg/mL subcutaneous 60 mg subcut [id number] 09/25/21 09/18/23 syringe (Prolia) letrozole 2.5 mg tablet 2.5 mg PO DAILY 09/25/21 09/18/23 fluocinolone 0.01 % topical 1 applic topical BID Itchy scalp 04/11/22 09/18/23 solution blood sugar diagnostic (Blood #250 ea 04/12/22 09/18/23 Glucose Test strips) fiber supplements 1 tab PO DAILY 05/23/22 09/18/23 famotidine 40 mg tablet 40 mg PO DAILY #60 tabs 10/15/22 09/18/23 metoprolol succinate 50 mg 50 mg PO DAILY #90 tabs 10/15/22 09/18/23 tablet,extended release 24 hr calcium carbonate 600 mg-vitamin See Rx Instructions .Route 11/29/22 09/18/23 D3 20 mcg (800 unit) tablet .COMPLEX #180 tabs cetirizine 10 mg tablet 10 mg PO DAILY #90 tabs 12/31/22 09/18/23 magnesium oxide 400 mg (241.3 mg See Rx Instructions PO .COMPLEX 12/31/22 09/18/23 magnesium) tablet low magnesium level #180 tab-caps metformin 500 mg tablet 500 mg PO BID #180 tabs 12/31/22 09/18/23 pantoprazole 40 mg tablet,delayed 40 mg PO DAILY #60 tabs 01/30/23 09/18/23 release (Protonix) empagliflozin 25 mg tablet 25 mg PO DAILY AM #90 tab-caps 02/11/23 09/18/23 (Jardiance) nitroglycerin 0.4 mg sublingual 0.4 mg sublingual Q5M PRN chest 02/14/23 09/18/23 tablet pain #30 tabs sucralfate 1 gram tablet (Carafate) 1 g PO QACHS #60 tabs 02/27/23 09/18/23 lancets 28 gauge (Sure Comfort #100 ea 03/20/23 09/18/23 Lancets) tramadol 50 mg tablet 50 mg PO TID PRN pain #12 tabs 03/20/23 09/18/23 flash glucose sensor (FreeStyle #6 ea 03/25/23 09/18/23 Basia 2 Sensor kit) albuterol 90 mcg/actuation aerosol 90 mcg inhalation Q4H PRN 03/27/23 09/18/23 inhaler hydrochlorothiazide 25 mg tablet 25 mg PO DAILY AM #90 tab-caps 03/28/23 09/18/23 tiotropium 2.5 mcg-olodaterol 2.5 2 puff inhalation DAILY #4 grams 03/29/23 09/18/23 mcg/actuation mist for inhalation (Stiolto Respimat) insulin glargine 100 unit/mL (3 See Rx Instructions subcut BID Dx: 06/14/23 09/18/23 mL) subcutaneous pen (Lantus E11.9 to maintain HbA1c less than Solostar U-100 Insulin) 7% ferrous sulfate 325 mg (65 mg 325 mg PO DAILY #60 tabs 06/15/23 09/18/23 iron) tablet (iron) montelukast 10 mg tablet 10 mg PO DAILY 06/18/23 09/18/23 clotrimazole 10 mg jihan 10 mg mucous membrane ONCE #30 tabs 07/08/23 09/18/23 calcium citrate 200 mg (950 mg) 200 mg PO BID #180 tabs 07/15/23 09/18/23 tablet valsartan 160 mg tablet 160 mg PO DAILY #90 tabs 07/15/23 09/18/23 dulaglutide 0.75 mg/0.5 mL 1.5 mg subcut QWEEK 07/18/23 09/18/23 subcutaneous pen injector (Trulicity) insulin lispro 100 unit/mL 12 unit subcut TID high blood sugar 07/18/23 09/18/23 subcutaneous pen (Humalog KwikPen (U-100) Insulin) prednisone 20 mg tablet 40 mg (2 x 20 mg) PO DAILY #10 tabs 07/30/23 09/18/23 rosuvastatin 40 mg tablet See Rx Instructions .Route 08/12/23 09/18/23 .COMPLEX #90 tabs desonide 0.05 % topical ointment 1 applic topical DAILY forehead 08/19/23 09/18/23 daily for up to 5 days #15 grams nystatin 100,000 unit/gram topical 1 applic topical TID perineal rash 08/19/23 09/18/23 ointment #60 grams fluconazole 50 mg tablet See Rx Instructions .Route 08/24/23 09/18/23 .COMPLEX #5 tabs pen needle, diabetic 32 gauge x #400 ea 08/28/23 09/18/23 5/32 (BD Marina 2nd Gen Pen Needle) fluticasone propionate 50 2 spray intranasal DAILY #16 grams 08/29/23 09/18/23 mcg/actuation nasal spray,suspension sodium chloride 0.65 % nasal drops 2 drp intranasal Q2H PRN dry nasal 08/29/23 09/18/23 ([place] Saline) passages #50 mL Previous Rx's Medication Instructions Recorded flash glucose scanning reader #1 ea 05/04/21 (FreeStyle Basia 2 [place]) blood sugar diagnostic (Blood #250 ea 04/12/22 Glucose Test strips) famotidine 40 mg tablet 40 mg PO DAILY #60 tabs 10/15/22 metoprolol succinate 50 mg 50 mg PO DAILY #90 tabs 10/15/22 tablet,extended release 24 hr calcium carbonate 600 mg-vitamin See Rx Instructions .Route 11/29/22 D3 20 mcg (800 unit) tablet .COMPLEX #180 tabs cetirizine 10 mg tablet 10 mg PO DAILY #90 tabs 12/31/22 magnesium oxide 400 mg (241.3 mg See Rx Instructions PO .COMPLEX 12/31/22 magnesium) tablet low magnesium level #180 tab-caps metformin 500 mg tablet 500 mg PO BID #180 tabs 12/31/22 pantoprazole 40 mg tablet,delayed 40 mg PO DAILY #60 tabs 01/30/23 release (Protonix) empagliflozin 25 mg tablet 25 mg PO DAILY AM #90 tab-caps 02/11/23 (Jardiance) nitroglycerin 0.4 mg sublingual 0.4 mg sublingual Q5M PRN chest 02/14/23 tablet pain #30 tabs sucralfate 1 gram tablet (Carafate) 1 g PO QACHS #60 tabs 02/27/23 lancets 28 gauge (Sure Comfort #100 ea 03/20/23 Lancets) tramadol 50 mg tablet 50 mg PO TID PRN pain #12 tabs 03/20/23 flash glucose sensor (FreeStyle #6 ea 03/25/23 Basia 2 Sensor kit) hydrochlorothiazide 25 mg tablet 25 mg PO DAILY AM #90 tab-caps 03/28/23 tiotropium 2.5 mcg-olodaterol 2.5 2 puff inhalation DAILY #4 grams 03/29/23 mcg/actuation mist for inhalation (Stiolto Respimat) ferrous sulfate 325 mg (65 mg 325 mg PO DAILY #60 tabs 06/15/23 iron) tablet (iron) clotrimazole 10 mg jihan 10 mg mucous membrane ONCE #30 tabs 07/08/23 calcium citrate 200 mg (950 mg) 200 mg PO BID #180 tabs 07/15/23 tablet valsartan 160 mg tablet 160 mg PO DAILY #90 tabs 07/15/23 prednisone 20 mg tablet 40 mg (2 x 20 mg) PO DAILY #10 tabs 07/30/23 rosuvastatin 40 mg tablet See Rx Instructions .Route 08/12/23 .COMPLEX #90 tabs desonide 0.05 % topical ointment 1 applic topical DAILY forehead 08/19/23 daily for up to 5 days #15 grams nystatin 100,000 unit/gram topical 1 applic topical TID perineal rash 08/19/23 ointment #60 grams fluconazole 50 mg tablet See Rx Instructions .Route 08/24/23 .COMPLEX #5 tabs pen needle, diabetic 32 gauge x #400 ea 08/28/2332 (BD Marina 2nd Gen Pen Needle) fluticasone propionate 50 2 spray intranasal DAILY #16 grams 08/29/23 mcg/actuation nasal spray,suspension sodium chloride 0.65 % nasal drops 2 drp intranasal Q2H PRN dry nasal 08/29/23 (Pear[place] Saline) passages #50 mL Allergies Allergy/AdvReac Type Severity Reaction Status Date / Time propylene glycol Allergy Severe Rash Verified 09/18/23 17:39 anastrozole Allergy Intermediate unknown Verified 09/18/23 17:39 petrolatum,white Allergy Intermediate rash Verified 09/18/23 17:39 [From Petroleum Jelly] adhesive tape Allergy Unknown Skin Rash Verified 09/18/23 17:39 alendronate sodium Allergy Unknown Hives Verified 09/18/23 17:39 azithromycin AdvReac Intermediate dry heaves Verified 09/18/23 17:39 and diarrhea hydrocodone bitartrate AdvReac Intermediate Nausea Verified 09/18/23 17:39 [From Vicodin] liraglutide [From Victoza] AdvReac Intermediate diarhhea Verified 09/18/23 17:39 lorazepam [From Ativan] AdvReac Intermediate felt Verified 09/18/23 17:39 crazy paraben AdvReac Intermediate Skin Rash Verified 09/18/23 17:39 quaternium 15 AdvReac Intermediate generalized Verified 09/18/23 17:39 rash roflumilast AdvReac Intermediate Diarrhea Verified 09/18/23 17:39 zolpidem [From Ambien] AdvReac Intermediate confusion Verified 09/18/23 17:39 LANDON Inhibitors AdvReac Unknown COUGH,DYSPN Verified 09/18/23 17:39 EA oxycodone HCl [From Percocet] AdvReac Unknown NAUSEA/VOMI Verified 09/18/23 17:39 TING Benzodiazepines AdvReac Visual Verified 09/18/23 17:39 Disturbances fragranced creams Allergy Intermediate Skin Rash Uncoded 09/18/23 17:39 parabin wax Allergy Intermediate Skin Rash Uncoded 09/18/23 17:39 diogolidinyl AdvReac Severe Skin Rash Uncoded 09/18/23 17:39 bisphenal AdvReac Intermediate Skin Rash Uncoded 09/18/23 17:39 General Stated Complaint: RespSymp BRUNA: 3 Review of Systems All systems reviewed & are unremarkable except as noted in HPI and below PFSH All Active Problems Sepsis (Acute) Pneumonia (Acute) Acute hypoxemic respiratory failure (Acute) Kaylee rash of groin (Acute) Arteriovenous malformation (Acute ~06/2023) 06/27/23 Gastro Former smoker (Acute) Asymptomatic menopausal state (Acute) [facility] Endo Note 06/12/23 Type 2 diabetes mellitus with hyperglycemia, with long-term current use of insulin (Acute) [facility] Endo Note 06/12/23 Ductal carcinoma in situ (DCIS) of left breast (Acute) [facility] Hem/Onc note 06/05/23 Iron deficiency anemia secondary to blood loss (chronic) (Acute) 05/01/23 Hem/Onc GI bleed (Chronic) Demand ischemia (Acute) Chronic respiratory failure with hypoxia (Acute) Anemia (Chronic) Esophagitis determined by endoscopy (Acute ~12/2022) Compression fracture of L3 vertebra (Acute ~2021) Mucous cyst of digit of left hand (Acute ~12/2022) s/p excision of mucous cyst DOS: 01/08/23 Trigger finger, left middle finger (Acute) 40 mg Depo-Medrol injection: 11/12/2022 s/p trigger release DOS: 01/08/23 History of breast cancer (Acute) Dermatitis, seborrheic (Acute) 07/06/22 Dr Moreno Anemia, macrocytic (Acute) 05/03/22 Hem/Onc Note Essential hypertension (Acute 05/16/04) Microalbuminuria due to type 2 diabetes mellitus (Acute) Hyperlipidemia (Acute 03/18/07) Type 2 diabetes mellitus, with long-term current use of insulin (Acute ~1999) Renal artery stenosis, [place], bilateral (Chronic) [facility] Vascular Surgery; most recent OV 06/01/21 Atherosclerosis of both carotid arteries (Chronic 11/12/16) [facility] Vascular Surgery; most recent OV 06/01/21; Recommend annual carotid US COPD, very severe (Chronic) [facility] Pulm O2 dependent ASCVD (arteriosclerotic cardiovascular disease) (Chronic) [facility] 06/01/21 Vascular note: Asymptomatic bilateral carotid artery stenosis Non-ST elevation (NSTEMI) myocardial infarction (Acute ~12/2020) S/p proximal LCX stent placement 01/27/21 [facility] CKD (chronic kidney disease) (Chronic) Obstructive sleep apnea (Chronic 03/02/14) Bipap w/ 2L 02 09/06/2019 Medical History Esophageal thrush Allergic contact dermatitis due to other agents Malignant neoplasm of unspecified site of left female breast (~10/2021) 11/06/21 Dr Mcgill ([facility] Rad[facility]Onc [facility]); Radiation Therapy planned 12/21/21-hormone receptor positive Gross hematuria Vulvar irritation Breast cancer in female (~05/2021) R 2002, L 2004 s/p B/L partial mastectomy, XRT, & tamoxifen. 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) Estrogen receptor positive s/p RXT, surgical removal of tumor Enteritis Back pain Post-menopausal bleeding Pelvic pain Pericarditis (~12/2020) S/p PA Vaginitis and vulvovaginitis, unspecified Tobacco use disorder 30-50 PY, QUIT 1999 Compression fracture of lumbar vertebra (03/14/17) Depression (11/30/02) s/p of brother (on SSRI for short time) Solitary pulmonary nodule (12/22/15) Incidental finding of 6 mm pulm nodule RLL on 11/07/[address] with 6 month f/u chest CT recommended; 04/2016 6-month f/u chest CT: resolution of nodule Pneumonia Spinal stenosis (02/04/14) Multi level on MRI Reflux esophagitis (07/16/12) LA GRADE B , EGD W/ BX 05/04/15 Osteopenia (02/14/16) DEXA 02/14/16: Fem neck t-score -1.2 --> WHO FRAX major osteoporotic 13% & hip fx 1.3% risk --> does not qualify for bisphosphonates --> Ca & vit D 03/2017 L3 compression fx --> re-calc WHO FRAX major osteoporotic 21% & hip fx 2.3% risk --> now qualifies for bisphosphonate tx, started 03/2017 Probable allergic rxn to Alendronate (1st pill Wed, Hiv Th and stayed thru today (but no worsening), 07/05. Agree to STOP for now. Leg cramps (04/01/14) Low Mg+ --> supplementation helped, but caused diarrhea; handout on dietary Mg+ given Iron deficiency anemia (01/02/17) S/p colo & EGD 05/2015, then capsule endoscopy & push enteroscopy with no definitive etiology identified; 11/14/2017: repeat colonoscopy (due to return of anemia) showing a colonic angioectasia, which may have been source of bleeding & anemia (no overt bleeding found). Fe supplementation & monitor 10/29/22 Seen by [facility] Hem/Onc Intraabdominal calcification (11/14/15) Incidental finding on CT 2 mm between bladder and uterus, no further eval required, AOC Hypomagnesemia (03/04/17) Hiatal hernia (02/11/14) Smaller portions Endoscopy 10/04 anemia (nothing found), [facility] Heart murmur 07/11/2016 echo: mild-moderate mitral regurgitation DJD (degenerative joint disease) (02/04/14) Lumbar spine--multiple level on MRI Surgery 10/2011, [facility] Dr. 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/21/16 [facility] Vascular Surgery consult: moderate stenosis, not source of clinical pathology, & no intervention or further evaluation indicated Anemia (02/11/14) Suspect chronic dz/bone marrow suppression s/p breast CA tx (radiation); s/p GI workup (possible AVMs?), NL B12/folate, elevated Epo, NL retic count; chronic iron supplementation Allergic rhinitis Superior mesenteric artery stenosis Chronic GI bleeding Headache Surgical History H/O colonoscopy (~11/02/22) 11/02/22 , 1 cecal polyp removed - f/u 10 years H/O endoscopy (~06/21/22) 11/02/22 Upper GI endoscopy H/O partial mastectomy (~10/26/21) Left breast S/P breast biopsy, left (05/09/21) u/s guided Core Bx History of hysterectomy, supracervical Status post coronary artery stent placement (~01/27/21) H/O laminectomy (~10/06/12) L5S1 Dr. Jarrod Ballard H/O laminectomy L5S1 Tooth Extractions Multiple Oophrectomy, Right (~2007) For unknown reason Extraction of cataract left eye surgical removal with intraocular lens implant. Dr Agee Breast, Lumpectomy (~2003) B/L for breast CA Biopsy, Lymph Node (~2003) (L) axilla for breast CA Family History Sister Breast cancer Mother , 89 Alzheimer's dementia Breast cancer Father , AGE 75 Alcohol abuse Cirrhosis Sister Neoplasm uterine CA Sister Heart disease Brother Heart disease Niece Breast cancer Social History Smoking/Tobacco Use Status: Former Tobacco Use tobacco type: cigarettes Quit Date: 09/02/95 Tobacco: How many years used: 25 Smoking risk assessment performed?: Yes Alcohol Intake: former Details: none Drug use: Never Substance use type: does not use Adopted: No Caregiver/Support person: No Foster care: No Household members: spouse Housing: house Number of Children: 4 Communication Needs: None Pets and animals: No Current gender identity: female What type of physical activity do you participate in: regular exercise Duration: < 15 minutes/day Frequency: 3-4 times per week Mell/Mosque: Evangelical Seatbelt use: always Drive intox or ride w/intox milk tanker driver: No Working smoke detector in home: Yes Fire extinguisher in home: Yes Carbon monox detector in home: Yes Do you feel safe at home: Yes Do you feel safe in your relationship?: Yes History History Para Hx # Term Pregnancies Multiple births Hx # Pregnancies Ectopic pregnancies AB induced Hx Number of Living Children 4 AB spontaneous Exam Narrative Exam Narrative: GENERAL APPEARANCE: Well-nourished, non-toxic, awake and alert, atraumatic, no acute distress. SKIN: Warm, pink, dry, intact, without rashes/lesions/ulcerations. HEAD: Normocephalic, atraumatic, normal hair distribution for gender/age. EYES: Pupils PERRLA, EOMs intact without nystagmus, normal conjunctiva, no exudates on lids/lashes. ENT: Nares patent, no circumoral cyanosis, no facial swelling NECK: Supple, trachea midline, painless cervical ROM. LUNGS/CHEST: Lungs- no overt wheezing to auscultation, no rales at bases, poor air movement, question mild diminished lung sounds R apex, labored respirations, normal A/P diameter, symmetrical expansion, no chest wall deformity HEART (CV/PV): Regular rate- tachycardic without appreciable murmur to my auscultation, no peripheral edema, no JVD. ABDOMEN: Soft, non-distended, no guarding, nontender. MSK: Normal ROM, no swelling/deformity to bilateral UEs or LEs, moving all extremities without weakness, no cyanosis, spine midline without tenderness, normal curvature. NEURO: Mental Status AAOx4 - alert to person, place, time, events No facial droop, no forehead involvement. Motor: No focal weakness - strength 5/5 in bilateral UEs and LEs, proximal and distal, symmetric. Sensory: sensation intact to light touch globally. Gait normal: patient ambulated without ataxia into ED room. PSYCH: euthymic, cooperative, pleasant, appropriate speech Course Vital Signs Vital signs: Vital Signs Temperature 37.3 C 09/18/23 17:35 Pulse 125 H 09/18/23 17:35 Respiratory Rate 30 H 09/18/23 17:35 Blood Pressure 166/75 H 09/18/23 17:35 Pulse Oximetry 78 L 09/18/23 17:35 Temperature 37.3 C 09/18/23 17:35 Temperature Source Temporal Artery Scan 09/18/23 17:35 Pulse 125 H 09/18/23 17:35 Respiratory Rate 30 H 09/18/23 17:35 Blood Pressure 166/75 H 09/18/23 17:35 Blood Pressure Position Sitting 09/18/23 17:35 Pulse Oximetry 78 L 09/18/23 17:35 Oxygen Delivery Method Room Air 09/18/23 17:35 Oxygen Flow Rate 0 09/18/23 17:35 Pain Level 0 09/18/23 17:35 Medical Decision Making This dictation utilizes [id number] dictation software and may contain unedited grammatical errors. 73 y/o F presents to ED today with a chief complaint of productive cough for weeks, shortness of breath in chronic COPD, body aches, fevers. Patient has been tolerating PO at home without issue, uses 3L O2 in her CPAP machine at night, has at-home nebulizers. Patients' medical history: Type 2 diabetes mellitus, anemia, history of GI bleeding, history of demand ischemia, chronic respiratory failure with hypoxia, history of breast cancer, COPD severe, cardiovascular disease with history of NSTEMI PA, chronic kidney disease, obstructive sleep apnea, history of pericarditis. Surgical history of hysterectomy, coronary stents, laminectomy. Family and social history: lives at home with , does not exercise. Pertinent exam findings / vital signs include LUNGS/CHEST: Lungs- no overt wheezing to auscultation, no rales at bases, poor air movement, question mild diminished lung sounds R apex, labored respirations, normal A/P diameter, symmetrical expansion, no chest wall deformity HEART (CV/PV): Regular rate- tachycardic without appreciable murmur to my auscultation, no peripheral edema, no JVD. ABDOMEN: Soft, non-distended, no guarding, nontender. Differential / pathologies of concern include sepsis, pneumonia, PE, hypoxemic respiratory failure, CAD, CHF. Diagnostic studies of: -CBC, CMP, Trop I, BNP, Lipase, Lactate, CRP/ESR, VBG, D-dimer, Covid/Flu/RSV PCR, Blood Cx's, EKG, CXR. -CBC shows WBCs 12, mild anemia consistent with history- HgB 10.7 -CRP >25, ESR 78 -D-dimer 951, YEARS Criteria negative, PE not most likely diagnosis -VBG pH 7.37, normal values pO2, pCO2, compensated -CMP mild hyponatremia, mild hypo-Cl-, baseline SCr 1.4, glucose 243 -Lipase neg -Procalcitonin 0.2, not indicating severe sepsis -Covid/Flu/RSV PCR negative -Lactate 2.1, giving fluids with repeat q2hr - rising to 3.3 - Sepsis Dx. -Trop elevated to 144, reflexing 3hr value - [ ]. -BNP elevated 818, possible CHF mixed etiology -Initial EKG shows sinus tachycardia, normal axis, P waves with narrow QRS, normal PA interval, QT/QTc wnl, poor R-wave progression, sub-mm ST depression in lead III, avF, V5-6 -CXR shows R sided opacity Interventions of: -IVF initial 1L fluid bolus for sepsis, slowed to 250mL/hr with elevated BNP and only mildly elevated lactate. -IV Ceftriaxone & Doxycycline for CAP coverage around 1910- possible ST depression seen on monitor, repeating EKG -Repeat EKG shows diffuse ST depression in II, III, avF - tachy at 120, narrow complex QRS, likely demand ischemia. Approached Hospitalist Dr. Salmeron for admission for Sepsis, Pneumonia, and Acute Hypoxemic Respiratory Failure. Repeat troponin pending. Admission accepted @ 1999. 2129- repeat trop 500's, repeated EKG at the request of Dr. Salmeron, still suspect demand ischemia, patient not reporting any chest pain. Getting bed upstairs momentarily. Disposition of Pneumonia, Acute Hypoxemic Respiratory Failure, Sepsis. Medical Records Medical records reviewed: Yes I reviewed the patient's medical records. Imaging Data Radiologic Study: Imaging: X-Ray My impression: R lower lobe PNA Radiologist's impression: Exam: XR Chest Exam date and time: 09/18/2023 7:04 PM Age: 73 years old Clinical indication: Cough and other: Hypoxia TECHNIQUE: Imaging protocol: Radiologic exam of the chest. Views: 1 view. COMPARISON: CR XR CHEST 2V PA LATERAL 07/08/2023 10:33 AM FINDINGS: Limitations: Patient positioning is lordotic. Soft tissue overlies and partially obscures the lower lung zones bilaterally. Tubes, catheters and devices: There are surgical clips projecting over the left breast shadow in keeping with prior surgery. Lungs: There is diffuse coarsening of the interstitial pulmonary markings suggesting underlying chronic lung disease such as emphysema. The left lower lung zone is largely obscured by overlying soft tissue. Platelike opacity in the left mid lung zone probably represents platelike atelectasis. There is hazy indistinctness of the right hemidiaphragm. Atelectasis is suspected; however, infection or a small volume of aspiration is not excluded. Pleural spaces: No pleural effusion or pneumothorax demonstrated.. Heart/Mediastinum: The heart is partially obscured but appears grossly normal in size. There is atherosclerotic calcification at the apex of the aortic arch. The main pulmonary artery appears enlarged suggesting pulmonary hypertension. Diaphragm: There is elevation of the right hemidiaphragm. Bones/joints: The visualized bony structures appear grossly intact, as seen. Osteophytes are noted along the thoracic margin. IMPRESSION: 1. Diffuse coarsening of the interstitial pulmonary markings suggesting underlying chronic lung disease such as emphysema. 2. Enlargement of the main pulmonary arteries suggesting probable pulmonary hypertension. 3. Hazy indistinctness of the right hemidiaphragm. Atelectasis is suspected primarily; however, a small volume of aspiration or small region of infection at the lung base could probably mimic this appearance. Dictated and Authenticated by: Harry Meredith MD. Ordering:ASHLEY Shaffer MD Lab Data Lab results reviewed: Yes I reviewed the patient's lab results. Quality:SDOH Health Related Social Needs: No Data to Display Discharge Plan Disposition Patient Disposition: Admit to [facility] Condition: Stable Discharge Details Clinical Impression: Acute hypoxemic respiratory failure, Pneumonia, Sepsis Primary Care Provider: Janina Calloway ED Provider: Edmund Morrow Home Meds and New Rx's Prescriptions: No Action montelukast 10 mg tablet 10 mg PO DAILY insulin glargine [Lantus Solostar U-100 Insulin] 100 unit/mL (3 mL) insulin pen See Rx Instructions subcut BID Rx Instructions: 20 Units daily--pt instructed to increase by 2 units every 3 days if fasting BG consistently >150. Decrease 2 units if fasting BG consistently <90--[facility] Endo Note 06/12/23 fluticasone propionate 50 mcg/actuation spray,suspension 2 spray intranasal DAILY Qty: 16 0RF Rx Instructions: administer into each nostril [place] Saline 0.65 % drops 2 drp intranasal Q2H PRN (Reason: dry nasal passages) Qty: 50 1RF Rx Instructions: Trial through the day with steroid nasal spray nitroglycerin 0.4 mg tablet, sublingual 0.4 mg sublingual Q5M PRN (Reason: chest pain) Qty: 30 6RF Rx Instructions: do not exceed 3 doses per episode (DME) lancets [Sure Comfort Lancets] 28 gauge misc 1 ea Miscellaneous DAILY Qty: 100 3RF Rx Instructions: Dx: E11.9 to maintain HbA1C less than 7% albuterol 90 mcg/actuation aerosol 90 mcg inhalation Q4H PRN Stiolto Respimat 2.5-2.5 mcg/actuation mist 2 puff inhalation DAILY Qty: 4 12RF prednisone 20 mg tablet 40 mg PO DAILY Qty: 10 0RF nystatin 100,000 unit/gram ointment 1 applic topical TID Qty: 60 3RF Rx Instructions: Ointment not cream due to propylene glycol allergy. desonide 0.05 % ointment 1 applic topical DAILY Qty: 15 3RF Oxygen EACH NS At Night Qty: 2 0RF Patient Comments: 2 L at night and CPAP- patient states she wore these 11/10/17 multivitamin [Daily Multi-Vitamin] 1 EACH tablet 1 ea PO DAILY Patient Comments: patient states she took this roughly one week ago (DME) FreeStyle Basia 2 [place] [facility] [place] See Rx Instructions .ROUTE .MEDSUPPLY Qty: 1 0RF Rx Instructions: As directed Prolia 60 mg/mL syringe 60 mg subcut [id number] letrozole 2.5 mg tablet 2.5 mg PO DAILY Rx Instructions: 09/22/21 Hem/Onc prescribes. fluocinolone 0.01 % solution 1 applic topical BID (DME) Blood Glucose Test Strip See Rx Instructions .ROUTE .MEDSUPPLY Qty: 250 1RF Rx Instructions: As directed to check blood glucose three times daily. On insulin. Dispense covered brand (Freestyle Lite) fiber supplements 1 tab PO DAILY metoprolol succinate 50 mg tablet extended release 24 hr 50 mg PO DAILY Qty: 90 3RF calcium carbonate-vitamin D3 600 mg-20 mcg (800 unit) tablet See Rx Instructions .ROUTE .COMPLEX Qty: 180 3RF Dose Instruction: TAKE TWO TABLETS BY MOUTH EVERY DAY Rx Instructions: TAKE TWO TABLETS BY MOUTH EVERY DAY magnesium oxide 400 mg (241.3 mg magnesium) tablet See Rx Instructions PO .COMPLEX Qty: 180 3RF Rx Instructions: 400 mg AM and PM as per María Mendoza cetirizine 10 mg tablet 10 mg PO DAILY Qty: 90 3RF metformin 500 mg tablet 500 mg PO BID MDD 1000 mg Qty: 180 3RF Hold Instructions: Changed by Provider Rx Instructions: DOSED FOR RENAL FUNCTION pantoprazole [Protonix] 40 mg tablet,delayed release (DR/EC) 40 mg PO DAILY Qty: 60 3RF Jardiance 25 mg tablet 25 mg PO DAILY AM Qty: 90 3RF Rx Instructions: Administer once daily in the morning, with or without food sucralfate [Carafate] 1 gram tablet 1 g PO QACHS Qty: 60 0RF (DME) FreeStyle Basia 2 Sensor Kit See Rx Instructions .ROUTE .MEDSUPPLY Qty: 6 3RF Rx Instructions: As directed hydrochlorothiazide 25 mg tablet 25 mg PO DAILY AM Qty: 90 3RF ferrous sulfate [iron] 325 mg (65 mg iron) tablet 325 mg PO DAILY Qty: 60 1RF Rx Instructions: Take in the AM at least 1/2 hour before a meal. Take with an OTC Vit C tab or OJ. clotrimazole 10 mg jihan 10 mg mucous membrane ONCE Qty: 30 4RF Rx Instructions: Use valsartan 160 mg tablet 160 mg PO DAILY Qty: 90 3RF calcium citrate 200 mg (950 mg) tablet 200 mg PO BID Qty: 180 3RF Trulicity 0.75 mg/0.5 mL pen injector 1.5 mg subcut QWEEK Rx Instructions: 0.75mg weekly for 4 weeks[place] [place] 06/12/23 increased 1.5mg weekly 07/17/23 [facility] [place] insulin lispro [Humalog KwikPen Insulin] 100 unit/mL insulin pen 12 unit subcut TID Patient Comments: 18 Units with meals--[facility] [place] 06/12/23 12 Units with meals--[facility] [place] 07/17/23 rosuvastatin 40 mg tablet See Rx Instructions .ROUTE .COMPLEX Qty: 90 3RF Hold Instructions: Home Medication placed on hold at Doctor's office Dose Instruction: TAKE ONE TABLET BY MOUTH EVERY DAY Rx Instructions: TAKE ONE TABLET BY MOUTH EVERY DAY (DME) pen needle, diabetic [BD Marina 2nd Gen Pen Needle] 32 gauge x 5/32 needle See Rx Instructions .ROUTE .COMPLEX Qty: 400 3RF Dose Instruction: USE FOUR TIMES A DAY Rx Instructions: USE FOUR TIMES A DAY tramadol 50 mg tablet 50 mg PO TID PRN (Reason: pain) Qty: 12 0RF fluconazole 50 mg tablet See Rx Instructions .ROUTE .COMPLEX Qty: 5 0RF Rx Instructions: 150mg on day one and 75mg on day 3 if not improved famotidine 40 mg tablet 40 mg PO DAILY Qty: 60 0RF
--- NOTE | 2023-09-18 17:50 | DI.RAD_ITS ---
Exam(s) XR PORTABLE CHEST AP EXAM: XR PORTABLE CHEST AP CLINICAL HISTORY: cough, hypoxia TECHNIQUE: 2D digital imaging was performed. COMPARISON: CR XR CHEST 2V PA LATERAL from 07/08/2023 FINDINGS: Exam is limited by abdominal soft tissues obscuring the left lower lobe and cardiac silhouette. Ther e is also under penetration. LUNGS: Limited evaluation due to poor technique. Basilar infiltrates not excluded. Tiny effusions n ot excluded. Underlying emphysematous and mild fibrotic changes. HEART: Normal size. AORTA: Normal diameter. BONES: Spine mostly obscured. Soft tissues: Unremarkable. IMPRESSION: Limited exam. Basilar infiltrates not excluded. DATA REPOSITORY: RADIATION DOSE DELIVERED:
[2023-09-18 18:01] LABS: BE (Venous) 2 mmol/L (-2-3); HCO3 (Venous) 27 mmol/L (23-28); O2 Sat (Venous) 82 %; TCO2 (Venous) 25 mmol/L (24-29); pCO2 (Venous) 46 mmHg (41-51); pH (Venous) 7.37 (7.31-7.41); pO2 (Venous) 47 mmHg
[2023-09-18 18:03] LABS: Abs Immature Grans 0.24 10^3/uL (0.0-0.06); Absolute Basophil Count 0.01 10^3/uL (0.0-0.2); Absolute Lymphocyte Count 0.33 10^3/uL (1.2-3.4); Absolute Neutrophil Count 10.51 10^3/uL (1.2-6.7); Basophils % 0.1; HGB 10.7 g/dL (11.2-15.7); Immature Grans % 1.9; Lymphocytes % 2.7; MCHC 31.5 % (32.0-36.0); MCV 95 fL (80-95); Monocytes % 10.3; RBC 3.57 10^6/uL (3.93-5.22); RDW 15.1 % (11.7-14.6); RDW-SD 52.7 fL; WBC 12.37 10^3/uL (4.4-10.8)
[2023-09-18 18:05] LABS: ESR 78 mm/hr (0-30)
[2023-09-18 18:08] LABS: Lactate 2.1 mmol/L (0.6-1.4)
--- NOTE | 2023-09-18 18:15 | RT.EKG_ITS ---
APPROVED REPORT Exam: Resting ECG Reason for Exam: tachypnea Patient Location: E HR:107 bpm ECG Measurements Heart Rate 107 AXIS MI 171 P 97 QRSd 72 QRS 51 QT 335 T 47 QTc [address] depressions, no reciprocal change
[2023-09-18 18:22] LABS: Absolute Monocyte Count 1.27 10^3/uL (0.1-0.8); Platelet Count 175 10^3/uL (130-400)
[2023-09-18 18:25] LABS: ALT 20 U/L (14-59); AST 19 U/L (15-37); Albumin 3.4 g/dL (3.4-5.0); Alkaline Phosphatase 45 U/L (46-116); Anion Gap 10.6 mmol/L (3-11); BUN 21 mg/dL (7-18); Bilirubin, Total 0.4 mg/dL (0.2-1.0); CO2 26.4 mmol/L (21.0-32.0); CREATININE 1.4 mg/dL (0.55-1.02); Calcium 9.2 mg/dL (8.5-10.1); Chloride 95 mmol/L (98-107); Estimated GFR 39.48 (mL/min/1.73m2); Glucose 243 mg/dL (74-106); Lipase 27 U/L (16-77); Magnesium 2.2 mg/dL (1.8-2.4); NT-proBNP 818 pg/mL (<300); Potassium 4.3 mmol/L (3.5-5.1); Sodium 132 mmol/L (136-145); Total Protein 8.7 g/dL (6.4-8.2)
[2023-09-18 18:35] LABS: D-Dimer 951 ng/mlFEU (<500)
[2023-09-18] MEDS: cefTRIAXone 2 GM/50 ML BAG IVPB (18:40)
[2023-09-18] MEDS: Albuterol/Ipratropium 3 ML UPD VIAL 9 ML UPD (18:40)
[2023-09-18 18:41] LABS: C-Reactive Protein > 25.00 mg/dL (0.0-0.3)
[2023-09-18] MEDS: Normal Saline 1,000 ML 150 ML IV (18:41)
[2023-09-18 18:45] LABS: Procalcitonin 0.2 ng/mL
[2023-09-18 19:00] LABS: COVID-19 PCR Negative (Negative); Influenza A PCR Negative (Negative); Influenza B PCR Negative (Negative); RSV PCR Negative (Negative); Source NASOPHARYNX
--- NOTE | 2023-09-18 19:00 | RT.EKG_ITS ---
APPROVED REPORT Exam: Resting ECG Reason for Exam: tachy Patient Location: E HR:120 bpm ECG Measurements Heart Rate 120 AXIS GA 180 P 83 QRSd 73 QRS 21 QT 317 T 61 QTc 448 Conclusion Sinus tachycardia other than rate no acute change from prior
[2023-09-18] MEDS: DOXYCYCLINE 100 MG in Normal Saline 100 ML IVPB (19:17)
--- NOTE | 2023-09-18 19:23 | DI.VRAD_ITS ---
PROCEDURE INFORMATION: Exam: XR Chest Exam date and time: 09/18/2023 7:04 PM Age: 73 years old Clinical indication: Cough and other: Hypoxia TECHNIQUE: Imaging protocol: Radiologic exam of the chest. Views: 1 view. COMPARISON: CR XR CHEST 2V PA LATERAL 07/08/2023 10:33 AM FINDINGS: Limitations: Patient positioning is lordotic. Soft tissue overlies and partially obscures the lower lung zones bilaterally. Tubes, catheters and devices: There are surgical clips projecting over the left breast shadow in keeping with prior surgery. Lungs: There is diffuse coarsening of the interstitial pulmonary markings suggesting underlying chronic lung disease such as emphysema. The left lower lung zone is largely obscured by overlying soft tissue. Platelike opacity in the left mid lung zone probably represents platelike atelectasis. There is hazy indistinctness of the right hemidiaphragm. Atelectasis is suspected; however, infection or a small volume of aspiration is not excluded. Pleural spaces: No pleural effusion or pneumothorax demonstrated.. Heart/Mediastinum: The heart is partially obscured but appears grossly normal in size. There is atherosclerotic calcification at the apex of the aortic arch. The main pulmonary artery appears enlarged suggesting pulmonary hypertension. Diaphragm: There is elevation of the right hemidiaphragm. Bones/joints: The visualized bony structures appear grossly intact, as seen. Osteophytes are noted along the thoracic margin. IMPRESSION: 1. Diffuse coarsening of the interstitial pulmonary markings suggesting underlying chronic lung disease such as emphysema. 2. Enlargement of the main pulmonary arteries suggesting probable pulmonary hypertension. 3. Hazy indistinctness of the right hemidiaphragm. Atelectasis is suspected primarily; however, a small volume of aspiration or small region of infection at the lung base could probably mimic this appearance. Dictated and Authenticated by: Harry Meredith MD. Ordering:ASHLEY Shaffer MD
[2023-09-18] MEDS: Metoprolol CR 50 MG TABCR PO (19:38)
[2023-09-18 19:53] LABS: Lactate 3.3 mmol/L (0.6-1.4)
--- NOTE | 2023-09-18 20:00 | HPE_ITS ---
Date of service: 09/18/23 Time of Service: 20:00 Assessment and Plan Assessment and plan (1) Pneumonia: Status: Acute Assessment and plan: Pneumonia/COPD. Clinically improving, will continue antibiotics, nebs and will add steroids. The small rise in troponin is very likely demand ischemia, from both the hypoxia as well as tachycardia; I do not see evidence, by symptoms or EKG, of ACS. Will trend the troponins and has already received her usual dose of beta aaron. The modest rise in lactate is noted, but clinically no signs of tissue hypoperfusion. Will trend out. DM: basal Lantus plus SS coverage: HTN: will temporarily hold meds until certain that hemodynamics have stabilized ADs: reviewed, requests Full Code. History of Present Illness History of Present Illness Chief Complaint: cough, SOB Narrative: 73 female with COPD, former smoker, CAD s/p NSTEMI 2020 with stent to circumflex -- here with 7-10 days of cough productive of green sputum and SOB. Seen urgent Care with sats in 70s and sent here for evaluation. Here in ER w/u of note for initial sats 70s-80s; white count 12; CXR showing probable RLL infiltrate, along with apparent chronic changes consistent with COPD and pulmonary hypertension; lactate 2.1; trop 144 with EKG sinus tach with scattered generally upsloping 0.5-[address] depressions (note that patient missed here usual dose of beta aaron today, denies CP save for 2 seconds earlier this morning). Viral swab negative. Blood cultures obtained. Patient given duonebs, Rocephin, Doxy and 1 L IVF, as well as Metoprolol 50 XL (usual dose). I was asked to evaluate for admission. Patient states she feels much improved, no further SOB. Review of Systems Narrative: per HPI PFSH All Active Problems Sepsis (Acute) Pneumonia (Acute) Acute hypoxemic respiratory failure (Acute) Kaylee rash of groin (Acute) Arteriovenous malformation (Acute ~06/2023) 06/27/23 [facility] Former smoker (Acute) Asymptomatic menopausal state (Acute) [facility]23 Type 2 diabetes mellitus with hyperglycemia, with long-term current use of insulin (Acute) [facility] 06/12/23 Ductal carcinoma in situ (DCIS) of left breast (Acute) [facility]c [place] 06/05/23 Iron deficiency anemia secondary to blood loss (chronic) (Acute) 05/01/23 Hem/Onc GI bleed (Chronic) Demand ischemia (Acute) Chronic respiratory failure with hypoxia (Acute) Anemia (Chronic) Esophagitis determined by endoscopy (Acute ~12/2022) Compression fracture of L3 vertebra (Acute ~2021) Mucous cyst of digit of left hand (Acute ~12/2022) s/p excision of mucous cyst DOS: 01/08/23 Trigger finger, left middle finger (Acute) 40 mg Depo-Medrol injection: 11/12/2022 s/p trigger release DOS: 01/08/23 History of breast cancer (Acute) Dermatitis, seborrheic (Acute) 07/06/22 Dr Moreno Anemia, macrocytic (Acute) 05/03/22 Hem/Onc Note Essential hypertension (Acute 05/16/04) Microalbuminuria due to type 2 diabetes mellitus (Acute) Hyperlipidemia (Acute 03/18/07) Type 2 diabetes mellitus, with long-term current use of insulin (Acute ~1999) Renal artery stenosis, [place], bilateral (Chronic) [facility]; most recent OV 06/01/21 Atherosclerosis of both carotid arteries (Chronic 11/12/16) [facility]; most recent OV 06/01/21; Recommend annual carotid US COPD, very severe (Chronic) [facility] Pulm O2 dependent ASCVD (arteriosclerotic cardiovascular disease) (Chronic) [facility] [place]21 Vascular note: Asymptomatic bilateral carotid artery stenosis Non-ST elevation (NSTEMI) myocardial infarction (Acute ~12/2020) S/p proximal LCX stent placement 01/27/21 [facility] CKD (chronic kidney disease) (Chronic) Obstructive sleep apnea (Chronic 03/02/14) Bipap w/ 2L 02 09/06/2019 Medical History Esophageal thrush Allergic contact dermatitis due to other agents Malignant neoplasm of unspecified site of left female breast (~10/2021) 11/06/21 Dr Mcgill ([facility] Rad[facility]Onc [facility]); Radiation Therapy planned 12/21/21-hormone receptor positive Gross hematuria Vulvar irritation Breast cancer in female (~05/2021) R 2002, L 2003 s/p B/L partial mastectomy, XRT, & tamoxifen. 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) Estrogen receptor positive s/p RXT, surgical removal of tumor Enteritis Back pain Post-menopausal bleeding Pelvic pain Pericarditis (~12/2020) S/p NH Vaginitis and vulvovaginitis, unspecified Tobacco use disorder 30-50 PY, QUIT 2000 Compression fracture of lumbar vertebra (03/14/17) Depression (11/30/02) s/p of brother (on SSRI for short time) Solitary pulmonary nodule (12/22/15) Incidental finding of 6 mm pulm nodule RLL on 11/07/[address] with 6 month f/u chest CT recommended; 04/2016 6-month f/u chest CT: resolution of nodule Pneumonia Spinal stenosis (02/04/14) Multi level on MRI Reflux esophagitis (07/16/12) LA GRADE B , EGD W/ BX 05/04/15 Osteopenia (02/14/16) DEXA 02/14/16: Fem neck t-score -1.2 --> WHO FRAX major osteoporotic 13% & hip fx 1.3% risk --> does not qualify for bisphosphonates --> Ca & vit D 03/2017 L3 compression fx --> re-calc WHO FRAX major osteoporotic 21% & hip fx 2.3% risk --> now qualifies for bisphosphonate tx, started 03/2017 Probable allergic rxn to Alendronate (1st pill Wed, Hiv Th and stayed thru today (but no worsening), 07/05. Agree to STOP for now. Leg cramps (04/01/14) Low Mg+ --> supplementation helped, but caused diarrhea; handout on dietary Mg+ given Iron deficiency anemia (01/02/17) S/p colo & EGD 05/2015, then capsule endoscopy & push enteroscopy with no definitive etiology identified; 11/14/2017: repeat colonoscopy (due to return of anemia) showing a colonic angioectasia, which may have been source of bleeding & anemia (no overt bleeding found). Fe supplementation & monitor 10/29/22 [place] [facility] [place] Intraabdominal calcification (11/14/15) Incidental finding on CT 2 mm between bladder and uterus, no further eval required, AOC Hypomagnesemia (03/04/17) Hiatal hernia (02/11/14) Smaller portions Endoscopy 10/04 anemia (nothing found), [facility] Heart murmur 07/11/2016 echo: mild-moderate mitral regurgitation DJD (degenerative joint disease) (02/04/14) Lumbar spine--multiple level on MRI Surgery 10/2011, [facility] Dr. 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/21/16 [facility] [place] consult: moderate stenosis, not source of clinical pathology, & no intervention or further evaluation indicated Anemia (02/11/14) Suspect chronic dz/bone marrow suppression s/p breast CA tx (radiation); s/p GI workup (possible AVMs?), NL B12/folate, elevated Epo, NL retic count; chronic iron supplementation Allergic rhinitis Superior mesenteric artery stenosis Chronic GI bleeding Headache Surgical History H/O colonoscopy (~11/02/22) 11/02/22 , 1 cecal polyp removed - f/u 10 years H/O endoscopy (~06/21/22) 11/02/22 Upper GI endoscopy H/O partial mastectomy (~10/26/21) Left breast S/P breast biopsy, left (05/09/21) u/s guided Core Bx History of hysterectomy, supracervical Status post coronary artery stent placement (~01/27/21) H/O laminectomy (~10/06/12) L5S1 Dr. Jarrod Ballard H/O laminectomy L5S1 Tooth Extractions Multiple Oophrectomy, Right (~2007) For unknown reason Extraction of cataract left eye surgical removal with intraocular lens implant. Dr Agee Breast, Lumpectomy (~2003) B/L for breast CA Biopsy, Lymph Node (~2003) (L) axilla for breast CA Family History Sister Breast cancer Mother , 89 Alzheimer's dementia Breast cancer Father , AGE 75 Alcohol abuse Cirrhosis Sister Neoplasm uterine CA Sister Heart disease Brother Heart disease Niece Breast cancer Social History Smoking/Tobacco Use Status: Former Tobacco Use tobacco type: cigarettes Quit Date: 09/02/95 Tobacco: How many years used: 25 Smoking risk assessment performed?: Yes Alcohol Intake: former Details: none Drug use: Never Substance use type: does not use Adopted: No Caregiver/Support person: No Foster care: No Household members: spouse Housing: house Number of Children: 4 Communication Needs: None Pets and animals: No Current gender identity: female What type of physical activity do you participate in: regular exercise Duration: < 15 minutes/day Frequency: 3-4 times per week Mell/Lutheran: Mu-Ism Seatbelt use: always Drive intox or ride w/intox 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 Working smoke detector in home: Yes Fire extinguisher in home: Yes Carbon monox detector in home: Yes Do you feel safe at home: Yes Do you feel safe in your relationship?: Yes History History 2 Para Hx # Term Pregnancies Multiple births Hx # Pregnancies Ectopic pregnancies AB induced Hx Number of Living Children 4 AB spontaneous Meds Allergies and Home Medications Allergies Allergy/AdvReac Type Severity Reaction Status Date / Time propylene glycol Allergy Severe Rash Verified 09/18/23 17:39 anastrozole Allergy Intermediate unknown Verified 09/18/23 17:39 petrolatum,white Allergy Intermediate rash Verified 09/18/23 17:39 [From Petroleum Jelly] adhesive tape Allergy Unknown Skin Rash Verified 09/18/23 17:39 alendronate sodium Allergy Unknown Hives Verified 09/18/23 17:39 azithromycin AdvReac Intermediate dry heaves Verified 09/18/23 17:39 and diarrhea hydrocodone bitartrate AdvReac Intermediate Nausea Verified 09/18/23 17:39 [From Vicodin] liraglutide [From Victoza] AdvReac Intermediate diarhhea Verified 09/18/23 17:39 lorazepam [From Ativan] AdvReac Intermediate felt Verified 09/18/23 17:39 crazy paraben AdvReac Intermediate Skin Rash Verified 09/18/23 17:39 quaternium 15 AdvReac Intermediate generalized Verified 09/18/23 17:39 rash roflumilast AdvReac Intermediate Diarrhea Verified 09/18/23 17:39 zolpidem [From Ambien] AdvReac Intermediate confusion Verified 09/18/23 17:39 LANDON Inhibitors AdvReac Unknown COUGH,DYSPN Verified 09/18/23 17:39 EA oxycodone HCl [From Percocet] AdvReac Unknown NAUSEA/VOMI Verified 09/18/23 17:39 TING Benzodiazepines AdvReac Visual Verified 09/18/23 17:39 Disturbances fragranced creams Allergy Intermediate Skin Rash Uncoded 09/18/23 17:39 parabin wax Allergy Intermediate Skin Rash Uncoded 09/18/23 17:39 diogolidinyl AdvReac Severe Skin Rash Uncoded 09/18/23 17:39 bisphenal AdvReac Intermediate Skin Rash Uncoded 09/18/23 17:39 Home Medications Medication Instructions Recorded Confirmed Type Oxygen l NS At Night ##2 04/19/16 02/19/19 Clinic multivitamin (Daily Multi-Vitamin 1 ea PO DAILY 03/19/17 09/18/23 History tablet) flash glucose scanning reader #1 ea 05/04/21 09/18/23 Rx ([place] Basia 2 [place]) denosumab 60 mg/mL subcutaneous 60 mg subcut [id number] 09/25/21 09/18/23 History syringe (Prolia) letrozole 2.5 mg tablet 2.5 mg PO DAILY 09/25/21 09/18/23 History fluocinolone 0.01 % topical 1 applic topical BID Itchy scalp 04/11/22 09/18/23 History solution blood sugar diagnostic (Blood #250 ea 04/12/22 09/18/23 Rx Glucose Test strips) fiber supplements 1 tab PO DAILY 05/23/22 09/18/23 History famotidine 40 mg tablet 40 mg PO DAILY #60 tabs 10/15/22 09/18/23 Rx metoprolol succinate 50 mg 50 mg PO DAILY #90 tabs 10/15/22 09/18/23 Rx tablet,extended release 24 hr calcium carbonate 600 mg-vitamin See Rx Instructions .Route 11/29/22 09/18/23 Rx D3 20 mcg (800 unit) tablet .COMPLEX #180 tabs cetirizine 10 mg tablet 10 mg PO DAILY #90 tabs 12/31/22 09/18/23 Rx magnesium oxide 400 mg (241.3 mg See Rx Instructions PO .COMPLEX 12/31/22 09/18/23 Rx magnesium) tablet low magnesium level #180 tab-caps metformin 500 mg tablet 500 mg PO BID #180 tabs 12/31/22 09/18/23 Rx pantoprazole 40 mg tablet,delayed 40 mg PO DAILY #60 tabs 01/30/23 09/18/23 Rx release (Protonix) empagliflozin 25 mg tablet 25 mg PO DAILY AM #90 tab-caps 02/11/23 09/18/23 Rx (Jardiance) nitroglycerin 0.4 mg sublingual 0.4 mg sublingual Q5M PRN chest 02/14/23 09/18/23 Rx tablet pain #30 tabs sucralfate 1 gram tablet (Carafate) 1 g PO QACHS #60 tabs 02/27/23 09/18/23 Rx lancets 28 gauge (Sure Comfort #100 ea 03/20/23 09/18/23 Rx Lancets) tramadol 50 mg tablet 50 mg PO TID PRN pain #12 tabs 03/20/23 09/18/23 Rx flash glucose sensor (FreeStyle #6 ea 03/25/23 09/18/23 Rx Basia 2 Sensor kit) albuterol 90 mcg/actuation aerosol 90 mcg inhalation Q4H PRN 03/27/23 09/18/23 History inhaler hydrochlorothiazide 25 mg tablet 25 mg PO DAILY AM #90 tab-caps 03/28/23 09/18/23 Rx tiotropium 2.5 mcg-olodaterol 2.5 2 puff inhalation DAILY #4 grams 03/29/23 09/18/23 Rx mcg/actuation mist for inhalation (Stiolto Respimat) insulin glargine 100 unit/mL (3 See Rx Instructions subcut BID Dx: 06/14/23 09/18/23 History mL) subcutaneous pen (Lantus E11.9 to maintain HbA1c less than Solostar U-100 Insulin) 7% ferrous sulfate 325 mg (65 mg 325 mg PO DAILY #60 tabs 06/15/23 09/18/23 Rx iron) tablet (iron) montelukast 10 mg tablet 10 mg PO DAILY 06/18/23 09/18/23 History clotrimazole 10 mg jihan 10 mg mucous membrane ONCE #30 tabs 07/08/23 09/18/23 Rx calcium citrate 200 mg (950 mg) 200 mg PO BID #180 tabs 07/15/23 09/18/23 Rx tablet valsartan 160 mg tablet 160 mg PO DAILY #90 tabs 07/15/23 09/18/23 Rx dulaglutide 0.75 mg/0.5 mL 1.5 mg subcut QWEEK 07/18/23 09/18/23 History subcutaneous pen injector (Trulicity) insulin lispro 100 unit/mL 12 unit subcut TID high blood sugar 07/18/23 09/18/23 History subcutaneous pen (Humalog KwikPen (U-100) Insulin) prednisone 20 mg tablet 40 mg (2 x 20 mg) PO DAILY #10 tabs 07/30/23 09/18/23 Rx rosuvastatin 40 mg tablet See Rx Instructions .Route 08/12/23 09/18/23 Rx .COMPLEX #90 tabs desonide 0.05 % topical ointment 1 applic topical DAILY forehead 08/19/23 09/18/23 Rx daily for up to 5 days #15 grams nystatin 100,000 unit/gram topical 1 applic topical TID perineal rash 08/19/23 09/18/23 Rx ointment #60 grams fluconazole 50 mg tablet See Rx Instructions .Route 08/24/23 09/18/23 Rx .COMPLEX #5 tabs pen needle, diabetic 32 gauge x #400 ea 08/28/23 09/18/23 Rx 5/32 (BD Marina 2nd Gen Pen Needle) fluticasone propionate 50 2 spray intranasal DAILY #16 grams 08/29/23 09/18/23 Rx mcg/actuation nasal spray,suspension sodium chloride 0.65 % nasal drops 2 drp intranasal Q2H PRN dry nasal 08/29/23 09/18/23 Rx ([place] Saline) passages #50 mL Exam Narrative Exam Narrative: 152/47, 116, 37.3, 26, 96% RA. HEENT atraumatic; neck supple; lungs diminished; heart tachy/regular; abdomen soft and NT; extremities w/o edema; neuro Ox3, lucid, moves all 4s Results Labs 09/18/23 17:55 09/18/23 17:55 Labs: Laboratory Results - last 24 hr 09/18/23 09/18/23 09/18/23 17:47 17:55 19:49 WBC 12.37 H RBC 3.57 L Hgb 10.7 L Hct 34.0 L MCV 95 MCH 30.0 MCHC 31.5 L RDW 15.1 H Plt Count 175 MPV Immature Gran % 1.9 Neutrophils % 85.0 Lymphocytes % 2.7 Monocytes % 10.3 Eosinophils % 0.0 Basophils % 0.1 Nucleated RBC % 0.0 Absolute Neutrophils 10.51 H Absolute Lymphocytes 0.33 L Absolute Monocytes 1.27 H Absolute Eosinophils 0.00 Absolute Basophils 0.01 ESR 78 H D-Dimer 951 H VBG pH 7.37 VBG pCO2 46 VBG pO2 47 VBG HCO3 27 VBG Total CO2 25 VBG O2 Saturation 82 VBG Base Excess 2 VBG Lactate 2.1 H 3.3 H* Sodium 132 L Potassium 4.3 Chloride 95 L Carbon Dioxide 26.4 Anion Gap 10.6 BUN 21 H Creatinine 1.4 H Est GFR (CKD-EPI 2020) 39.48 Glucose 243 H Calcium 9.2 Magnesium 2.2 Total Bilirubin 0.4 AST 19 ALT 20 Alkaline Phosphatase 45 L Troponin I 144 H* C-Reactive Protein > 25.00 H NT-Pro-B Natriuret Pep 818 H Total Protein 8.7 H Albumin 3.4 Lipase 27 Procalcitonin 0.2 COVID-19 Source NASOPHARYNX SARS-CoV-2 (PCR) Negative Influenza Type A (PCR) Negative Influenza Type B (PCR) Negative RSV (PCR) Negative Last Vital Signs Temp 37.3 C 09/18/23 18:15 Pulse 116 H 09/18/23 19:00 Resp 26 H 09/18/23 19:01 BP 152/47 H 09/18/23 19:00 Pulse Ox 96 09/18/23 19:01 Time Spent Time spent with Patient: 40-54 minutes Time was spent: preparing to see the patient(eg.review tests), obtaining and/or reviewing separately otained hiistory, ordering medications,tests, procedures, referring, communicating with other health home care attendant and indepentently interpreting results
--- NOTE | 2023-09-18 21:15 | RT.EKG_ITS ---
APPROVED REPORT Exam: Resting ECG Reason for Exam: elevated troponin Patient Location: E HR:102 bpm ECG Measurements Heart Rate 102 AXIS VA 173 P 74 QRSd 76 QRS 34 QT 344 T 41 QTc 449 Conclusion Sinus tachycardia normal axis no change
[2023-09-18 21:19] LABS: Troponin I 526 ng/L (< or =60)
[2023-09-18 22:15] LABS: Troponin I 144 ng/L (< or =60)
[2023-09-19] VITALS (9 sets, daily range): BP systolic 105–128; BP diastolic 51–64; PULSE 84–101; RESP 8–18; TEMP 36.4–38.7; O2SAT 91–96
[2023-09-19] MEDS: Rosuvastatin 20 MG TAB 40 MG PO
[2023-09-19] MEDS: methylPREDNISolone SUCC 40 MG VIAL IVP ×2 (00:30→05:36)
[2023-09-19] MEDS: Acetaminophen 325 MG TAB 650 MG PO (00:58)
[2023-09-19 06:21] LABS: Lactate 0.5 mmol/L (0.6-1.4)
[2023-09-19] MEDS: Albuterol/Ipratropium 3 ML UPD VIAL UPD ×3 (06:23→11:21)
[2023-09-19] MEDS: DOXYCYCLINE 100 MG in Normal Saline 100 ML IVPB (06:24)
[2023-09-19 06:50] LABS: Troponin I 718 ng/L (< or =60)
[2023-09-19] MEDS: Letrozole 2.5 MG TAB PO (08:04)
[2023-09-19] MEDS: Sucralfate 1 GM TAB PO ×3 (08:05→11:39)
[2023-09-19] MEDS: Magnesium Oxide 400 MG TAB PO ×2 (08:05)
[2023-09-19] MEDS: Ferrous Sulfate 325 MG TAB PO (08:06)
[2023-09-19] MEDS: Montelukast 10 MG TAB PO (08:06)
[2023-09-19] MEDS: Pantoprazole 40 MG TABCR PO (08:06)
[2023-09-19] MEDS: Cetirizine 10 MG TAB PO (08:06)
[2023-09-19] MEDS: Metoprolol CR 50 MG TABCR PO (08:06)
[2023-09-19] MEDS: Empaglifozin 25 MG TAB PO (08:06)
[2023-09-19] MEDS: Insulin Aspart 300 UNITS/3 ML PEN SC ×2 (08:07→11:39)
--- NOTE | 2023-09-19 10:51 | DSE_ITS ---
Date of service: 09/19/23 Time of Service: 10:52 DS: Diagnosis Discharge Diagnosis (1) Pneumonia: Status: Acute (2) Severe sepsis: Status: Resolved (3) Acute hypoxemic respiratory failure: Status: Acute (4) Type 2 diabetes mellitus with hyperglycemia, with long-term current use of insulin: Status: Acute (5) Demand ischemia: Status: Acute (6) CKD (chronic kidney disease): Status: Chronic Discharge Plan Disposition Patient Disposition: Home Condition: Improving Discharge Details Reason For Visit: Pneumonia, COPD Admit Date/Time: 09/18/23 20:24 Admit Provider: Brady Salmeron Attending Provider: Brady Salmeron Primary Care Provider: Janina Calloway Hospital Course Hospital Course: This is a 73 year old female who was referred to the ED from urgent care after presenting for cough, fever and shortness of breath She was evaluated in the ED and found to be in severe sepsis with source of pneumonia she was place on broad spectrum antibiotics and steroids and admitted to med/surg under hospitalist services. she remained hemodynamcially stable with IV fluids only, no pressors required. she also was noted to have an elevated troponin, with no acute EKG changes. She was observed overnight and remained stable. In the morning she felt at her baseline and was requesting discharge to home. She has been eating and drinking bowels and bladder functioning. She is stable and appropriate for discharge to home with no new services. Discharge discussed with Dr Papo Hsu Meds and New Rx's Prescriptions: New cefpodoxime 200 mg tablet 200 mg PO BID Qty: 14 0RF Rx Instructions: must administer with a meal/food doxycycline hyclate 100 mg capsule 100 mg PO BID Qty: 10 0RF Continued montelukast 10 mg tablet 10 mg PO DAILY insulin glargine [Lantus Solostar U-100 Insulin] 100 unit/mL (3 mL) insulin pen See Rx Instructions subcut BID Rx Instructions: 20 Units daily--pt instructed to increase by 2 units every 3 days if fasting BG consistently >150. Decrease 2 units if fasting BG consistently <90--[facility] Endo Note 06/12/23 fluticasone propionate 50 mcg/actuation spray,suspension 2 spray intranasal DAILY Qty: 16 0RF Rx Instructions: administer into each nostril Lorena Saline 0.65 % drops 2 drp intranasal Q2H PRN (Reason: dry nasal passages) Qty: 50 1RF Rx Instructions: Trial through the day with steroid nasal spray nitroglycerin 0.4 mg tablet, sublingual 0.4 mg sublingual Q5M PRN (Reason: chest pain) Qty: 30 6RF Rx Instructions: do not exceed 3 doses per episode (DME) lancets [Sure Comfort Lancets] 28 gauge misc 1 ea Miscellaneous DAILY Qty: 100 3RF Rx Instructions: Dx: E11.9 to maintain HbA1C less than 7% albuterol 90 mcg/actuation aerosol 90 mcg inhalation Q4H PRN Stiolto Respimat 2.5-2.5 mcg/actuation mist 2 puff inhalation DAILY Qty: 4 12RF nystatin 100,000 unit/gram ointment 1 applic topical TID Qty: 60 3RF Rx Instructions: Ointment not cream due to propylene glycol allergy. desonide 0.05 % ointment 1 applic topical DAILY Qty: 15 3RF Oxygen EACH NS At Night Qty: 2 0RF Patient Comments: 2 L at night and CPAP- patient states she wore these 11/10/17 multivitamin [Daily Multi-Vitamin] 1 EACH tablet 1 ea PO DAILY Patient Comments: patient states she took this roughly one week ago (DME) FreeStyle Basia 2 [place] Misc See Rx Instructions .ROUTE .MEDSUPPLY Qty: 1 0RF Rx Instructions: As directed Prolia 60 mg/mL syringe 60 mg subcut [id number] letrozole 2.5 mg tablet 2.5 mg PO DAILY Rx Instructions: 09/22/21 Hem/Onc prescribes. fluocinolone 0.01 % solution 1 applic topical BID (DME) Blood Glucose Test Strip See Rx Instructions .ROUTE .MEDSUPPLY Qty: 250 1RF Rx Instructions: As directed to check blood glucose three times daily. On insulin. Dispense covered brand (Freestyle Lite) fiber supplements 1 tab PO DAILY metoprolol succinate 50 mg tablet extended release 24 hr 50 mg PO DAILY Qty: 90 3RF calcium carbonate-vitamin D3 600 mg-20 mcg (800 unit) tablet See Rx Instructions .ROUTE .COMPLEX Qty: 180 3RF Dose Instruction: TAKE TWO TABLETS BY MOUTH EVERY DAY Rx Instructions: TAKE TWO TABLETS BY MOUTH EVERY DAY magnesium oxide 400 mg (241.3 mg magnesium) tablet See Rx Instructions PO .COMPLEX Qty: 180 3RF Rx Instructions: 400 mg AM and PM as per María Mendoza cetirizine 10 mg tablet 10 mg PO DAILY Qty: 90 3RF metformin 500 mg tablet 500 mg PO BID MDD 1000 mg Qty: 180 3RF Hold Instructions: Changed by Provider Rx Instructions: DOSED FOR RENAL FUNCTION pantoprazole [Protonix] 40 mg tablet,delayed release (DR/EC) 40 mg PO DAILY Qty: 60 3RF Jardiance 25 mg tablet 25 mg PO DAILY AM Qty: 90 3RF Rx Instructions: Administer once daily in the morning, with or without food sucralfate [Carafate] 1 gram tablet 1 g PO QACHS Qty: 60 0RF (DME) FreeStyle Basia 2 Sensor Kit See Rx Instructions .ROUTE .MEDSUPPLY Qty: 6 3RF Rx Instructions: As directed hydrochlorothiazide 25 mg tablet 25 mg PO DAILY AM Qty: 90 3RF ferrous sulfate [iron] 325 mg (65 mg iron) tablet 325 mg PO DAILY Qty: 60 1RF Rx Instructions: Take in the AM at least 1/2 hour before a meal. Take with an OTC Vit C tab or OJ. clotrimazole 10 mg jihan 10 mg mucous membrane ONCE Qty: 30 4RF Rx Instructions: Use valsartan 160 mg tablet 160 mg PO DAILY Qty: 90 3RF calcium citrate 200 mg (950 mg) tablet 200 mg PO BID Qty: 180 3RF Trulicity 0.75 mg/0.5 mL pen injector 1.5 mg subcut QWEEK Rx Instructions: 0.75mg weekly for 4 weeks--[facility] Endo Note 06/12/23 increased 1.5mg weekly 07/17/23 [facility] Endo Note insulin lispro [Humalog KwikPen Insulin] 100 unit/mL insulin pen 12 unit subcut TID Patient Comments: 18 Units with meals--[facility] Endo Note 06/12/23 12 Units with meals--[facility] Endo Note 07/17/23 rosuvastatin 40 mg tablet See Rx Instructions .ROUTE .COMPLEX Qty: 90 3RF Hold Instructions: Home Medication placed on hold at Doctor's office Dose Instruction: TAKE ONE TABLET BY MOUTH EVERY DAY Rx Instructions: TAKE ONE TABLET BY MOUTH EVERY DAY (DME) pen needle, diabetic [BD Marina 2nd Gen Pen Needle] 32 gauge x 5/32 needle See Rx Instructions .ROUTE .COMPLEX Qty: 400 3RF Dose Instruction: USE FOUR TIMES A DAY Rx Instructions: USE FOUR TIMES A DAY tramadol 50 mg tablet 50 mg PO TID PRN (Reason: pain) Qty: 12 0RF fluconazole 50 mg tablet See Rx Instructions .ROUTE .COMPLEX Qty: 5 0RF Rx Instructions: 150mg on day one and 75mg on day 3 if not improved prednisone 20 mg tablet 40 mg PO DAILY Qty: 10 0RF Changed famotidine 40 mg tablet 20 mg PO DAILY Qty: 60 0RF No Action albuterol sulfate 2.5 mg /3 mL (0.083 %) solution for nebulization 2.5 mg inhalation Q4H PRN (Reason: shortness of breath or wheezing) Qty: 75 0RF Discharge Instructions Instructions: Acute Kidney Injury (DC), Pneumonia (DC) Additional Instructions: take antibiotics as prescribed even if you feel better drink 6-8 glasses of water daily to stay well hydrated. your famotidine dose was reduced based on your kidney function, please discuss with your doctor after labs rechecked to see if you need further adjustment on the dose. Stand Alone Forms: Nursing Discharge Form Referrals: Janina Calloway NP [Primary Care Provider] - 09/30/23 10:45 am Activity:: Activity as Tolerated Equipment/Supplies:: No Equipment Needed Diet:: Carb Counting Discharge Orders Discharge Orders: Discharge Order (Routine); Ordered 09/19/23 Ordered By: Missy Gregory Discharge Data Discharge Date/Time-TO BE ENTERED AT DEPARTURE: 09/19/23 12:56 DS: Summary Time Spent with Patient providing and/or coordinating discharge services: Greater than 30 minutes Status at Discharge Functional status at discharge: independent ambulation Overall status at discharge: patient is progressing back to baseline Mental Status: mental status grossly normal Speech and Movement: speech and movement normal Mood: congruent mood Affect: normal affect Quality:SDOH Health Related Social Needs: No Data to Display Exam Const General: no acute distress Orientation: alert HENMT Head: normal to inspection Ears: external ears normal General nose exam: external nose normal Mouth: moist mucous membranes Eyes General: appearance normal, both eyes and all related structures Neck Neck: normal visual inspection Resp Effort & Inspection: normal respiratory effort and able to speak in complete sentences Cardio Rate: regular rate GI Palpation: soft Skin General skin exam: no rashes or lesions noted Neuro General: patient alert and patient oriented x3 Extrem General: normal to inspection Psych Mental Status: mental status grossly normal Speech and Movement: speech and movement normal Mood: congruent mood Affect: normal affect DS: Data Vitals/I&O Vitals and I&O: Vital Signs Temperature 36.4 C L 09/19/23 08:00 Temperature Source Tympanic 09/19/23 08:00 Pulse 92 H 09/19/23 08:00 Pulse Rhythm Regular 09/19/23 10:43 Pulse 106 H 09/18/23 20:50 Respiratory Rate 18 09/19/23 08:00 Respiratory Effort Normal, Non-Labored 09/19/23 10:43 Respiratory Depth Normal 09/19/23 10:43 Respiratory Pattern Normal 09/19/23 10:43 Blood Pressure 110/64 09/19/23 08:00 Blood Pressure Mean 78 09/18/23 20:30 Blood Pressure Position Supine 09/18/23 18:15 Pulse Oximetry 92 09/19/23 08:00 Oxygen Delivery Method Nasal Cannula 09/19/23 08:00 Oxygen Flow Rate 3 09/19/23 08:00 Pain Level 0 09/19/23 03:43 Comment Nurse in room when vitals were done. 09/19/23 00:05 Intake & Output 09/18/23 09/18/23 09/19/23 11:59 23:59 11:59 Intake Total 330 / 330 860 / 860 Output Total 150 / 150 Balance 330 / 330 710 / 710 Weight 67.132 kg Intake: IV 330 / 330 860 / 860 Output: Urine 150 / 150 Other: Urine Color Yellow Urine Appearance Clear Comment pt stated she has voided x3 today Voiding Methods Toilet Data Completed and Pending Labs on day of discharge: Labs from last 24 hours 09/19/23 09/18/23 09/18/23 06:16 21:40 20:53 WBC RBC Hgb Hct MCV MCH MCHC RDW Plt Count MPV Immature Gran % Neutrophils % Lymphocytes % Monocytes % Eosinophils % Basophils % Nucleated RBC % Absolute Neutrophils Absolute Lymphocytes Absolute Monocytes Absolute Eosinophils Absolute Basophils ESR D-Dimer VBG pH VBG pCO2 VBG pO2 VBG HCO3 VBG Total CO2 VBG O2 Saturation VBG Base Excess VBG Lactate 0.5 L Sodium Potassium Chloride Carbon Dioxide Anion Gap BUN Creatinine Est GFR (CKD-EPI 2020) Glucose Calcium Magnesium Total Bilirubin AST ALT Alkaline Phosphatase Troponin I 718 H* 526 H* C-Reactive Protein NT-Pro-B Natriuret Pep Total Protein Albumin Lipase Procalcitonin COVID-19 Source SARS-CoV-2 (PCR) Influenza Type A (PCR) Influenza Type B (PCR) Urine Legionella Ag Pending RSV (PCR) 09/18/23 09/18/23 09/18/23 19:49 17:55 17:47 WBC 12.37 H RBC 3.57 L Hgb 10.7 L Hct 34.0 L MCV 95 MCH 30.0 MCHC 31.5 L RDW 15.1 H Plt Count 175 MPV Immature Gran % 1.9 Neutrophils % 85.0 Lymphocytes % 2.7 Monocytes % 10.3 Eosinophils % 0.0 Basophils % 0.1 Nucleated RBC % 0.0 Absolute Neutrophils 10.51 H Absolute Lymphocytes 0.33 L Absolute Monocytes 1.27 H Absolute Eosinophils 0.00 Absolute Basophils 0.01 ESR 78 H D-Dimer 951 H VBG pH 7.37 VBG pCO2 46 VBG pO2 47 VBG HCO3 27 VBG Total CO2 25 VBG O2 Saturation 82 VBG Base Excess 2 VBG Lactate 3.3 H* 2.1 H Sodium 132 L Potassium 4.3 Chloride 95 L Carbon Dioxide 26.4 Anion Gap 10.6 BUN 21 H Creatinine 1.4 H Est GFR (CKD-EPI 2020) 39.48 Glucose 243 H Calcium 9.2 Magnesium 2.2 Total Bilirubin 0.4 AST 19 ALT 20 Alkaline Phosphatase 45 L Troponin I 144 H* C-Reactive Protein > 25.00 H NT-Pro-B Natriuret Pep 818 H Total Protein 8.7 H Albumin 3.4 Lipase 27 Procalcitonin 0.2 COVID-19 Source NASOPHARYNX SARS-CoV-2 (PCR) Negative Influenza Type A (PCR) Negative Influenza Type B (PCR) Negative Urine Legionella Ag RSV (PCR) Negative 09/18/23 18:12 Blood Blood Culture - Pending 09/18/23 18:03 Blood Blood Culture - Pending Preliminary micro results at discharge 09/18/23 18:12 Blood Culture - Pending Blood 09/18/23 18:03 Blood Culture - Pending Blood PFSH All Active Problems (Updated 09/20/23 @ 00:03 by JOSE M ELIZONDO) Sepsis (Acute) Pneumonia (Acute) Acute hypoxemic respiratory failure (Acute) Kaylee rash of groin (Acute) Arteriovenous malformation (Acute ~06/2023) 06/27/23 Gastro Former smoker (Acute) Asymptomatic menopausal state (Acute) [facility] Endo Note 06/12/23 Type 2 diabetes mellitus with hyperglycemia, with long-term current use of insulin (Acute) [facility] Endo Note 06/12/23 Ductal carcinoma in situ (DCIS) of left breast (Acute) [facility] Hem/Onc note 06/05/23 Iron deficiency anemia secondary to blood loss (chronic) (Acute) 05/01/23 Hem/Onc GI bleed (Chronic) Demand ischemia (Acute) Chronic respiratory failure with hypoxia (Acute) Anemia (Chronic) Esophagitis determined by endoscopy (Acute ~12/2022) Compression fracture of L3 vertebra (Acute ~2021) Mucous cyst of digit of left hand (Acute ~12/2022) s/p excision of mucous cyst DOS: 01/08/23 Trigger finger, left middle finger (Acute) 40 mg Depo-Medrol injection: 11/12/2022 s/p trigger release DOS: 01/08/23 History of breast cancer (Acute) Dermatitis, seborrheic (Acute) 07/06/22 Dr Moreno Anemia, macrocytic (Acute) 05/03/22 Hem/Onc Note Essential hypertension (Acute 05/16/04) Microalbuminuria due to type 2 diabetes mellitus (Acute) Hyperlipidemia (Acute 03/18/07) Type 2 diabetes mellitus, with long-term current use of insulin (Acute ~1999) Renal artery stenosis, [place], bilateral (Chronic) [facility] Vascular Surgery; most recent OV 06/01/21 Atherosclerosis of both carotid arteries (Chronic 11/12/16) [facility] Vascular Surgery; most recent OV 06/01/21; Recommend annual carotid US COPD, very severe (Chronic) [facility] Pulm O2 dependent ASCVD (arteriosclerotic cardiovascular disease) (Chronic) [facility] 06/01/21 Vascular note: Asymptomatic bilateral carotid artery stenosis Non-ST elevation (NSTEMI) myocardial infarction (Acute ~12/2020) S/p proximal LCX stent placement 01/27/21 [facility] CKD (chronic kidney disease) (Chronic) Obstructive sleep apnea (Chronic 03/02/14) Bipap w/ 2L 02 09/06/2019 Medical History Esophageal thrush Allergic contact dermatitis due to other agents Malignant neoplasm of unspecified site of left female breast (~10/2021) 11/06/21 Dr Mcgill ([facility] Rad[facility]); Radiation Therapy planned 12/21/21-hormone receptor positive Gross hematuria Vulvar irritation Breast cancer in female (~05/2021) R 2002, L 2004 s/p B/L partial mastectomy, XRT, & tamoxifen. 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) Estrogen receptor positive s/p RXT, surgical removal of tumor Enteritis Back pain Post-menopausal bleeding Pelvic pain Pericarditis (~12/2020) S/p UT Vaginitis and vulvovaginitis, unspecified Tobacco use disorder 30-50 PY, QUIT 1999 Compression fracture of lumbar vertebra (03/14/17) Depression (11/30/02) s/p of brother (on SSRI for short time) Solitary pulmonary nodule (12/22/15) Incidental finding of 6 mm pulm nodule RLL on 11/07/[address] with 6 month f/u chest CT recommended; 04/2016 6-month f/u chest CT: resolution of nodule Pneumonia Spinal stenosis (02/04/14) Multi level on MRI Reflux esophagitis (07/16/12) LA GRADE B , EGD W/ BX 05/04/15 Osteopenia (02/14/16) DEXA 02/14/16: Fem neck t-score -1.2 --> WHO FRAX major osteoporotic 13% & hip fx 1.3% risk --> does not qualify for bisphosphonates --> Ca & vit D 03/2017 L3 compression fx --> re-calc WHO FRAX major osteoporotic 21% & hip fx 2.3% risk --> now qualifies for bisphosphonate tx, started 03/2017 Probable allergic rxn to Alendronate (1st pill Sat, and stayed thru today (but no worsening), 07/05. Agree to STOP for now. Leg cramps (04/01/14) Low Mg+ --> supplementation helped, but caused diarrhea; handout on dietary Mg+ given Iron deficiency anemia (01/02/17) S/p colo & EGD 05/2015, then capsule endoscopy & push enteroscopy with no definitive etiology identified; 11/14/2017: repeat colonoscopy (due to return of anemia) showing a colonic angioectasia, which may have been source of bleeding & anemia (no overt bleeding found). Fe supplementation & monitor 10/29/22 Seen by [facility] Hem/Onc Intraabdominal calcification (11/14/15) Incidental finding on CT 2 mm between bladder and uterus, no further eval required, AOC Hypomagnesemia (03/04/17) Hiatal hernia (02/11/14) Smaller portions Endoscopy 10/04 anemia (nothing found), [facility] Heart murmur 07/11/2016 echo: mild-moderate mitral regurgitation DJD (degenerative joint disease) (02/04/14) Lumbar spine--multiple level on MRI Surgery 10/2011, [facility] Dr. 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/21/16 [facility] Vascular Surgery consult: moderate stenosis, not source of clinical pathology, & no intervention or further evaluation indicated Anemia (02/11/14) Suspect chronic dz/bone marrow suppression s/p breast CA tx (radiation); s/p GI workup (possible AVMs?), NL B12/folate, elevated Epo, NL retic count; chronic iron supplementation Allergic rhinitis Superior mesenteric artery stenosis Chronic GI bleeding Headache Surgical History H/O colonoscopy (~11/02/22) 11/02/22 , 1 cecal polyp removed - f/u 10 years H/O endoscopy (~06/21/22) 11/02/22 Upper GI endoscopy H/O partial mastectomy (~10/26/21) Left breast S/P breast biopsy, left (05/09/21) u/s guided Core Bx History of hysterectomy, supracervical Status post coronary artery stent placement (~01/27/21) H/O laminectomy (~10/06/12) L5S1 Dr. Jarrod Ballard H/O laminectomy L5S1 Tooth Extractions Multiple Oophrectomy, Right (~2007) For unknown reason Extraction of cataract left eye surgical removal with intraocular lens implant. Dr Agee Breast, Lumpectomy (~2003) B/L for breast CA Biopsy, Lymph Node (~2003) (L) axilla for breast CA Family History Sister Breast cancer Mother , 89 Alzheimer's dementia Breast cancer Father , AGE 75 Alcohol abuse Cirrhosis Sister Neoplasm uterine CA Sister Heart disease Brother Heart disease Niece Breast cancer Social History Smoking/Tobacco Use Status: Former Tobacco Use tobacco type: cigarettes Quit Date: 09/02/95 Tobacco: How many years used: 25 Smoking risk assessment performed?: Yes Alcohol Intake: former Details: none Drug use: Never Substance use type: does not use Adopted: No Caregiver/Support person: No Foster care: No Household members: spouse Housing: house Number of Children: 4 Communication Needs: None Pets and animals: No Current gender identity: female What type of physical activity do you participate in: regular exercise Duration: < 15 minutes/day Frequency: 3-4 times per week Mell/Cheondoism: Zoroastrian Seatbelt use: always Drive intox or ride w/intox courtesy car driver: No Working smoke detector in home: Yes Fire extinguisher in home: Yes Carbon monox detector in home: Yes Do you feel safe at home: Yes Do you feel safe in your relationship?: Yes History History Para Hx # Term Pregnancies Multiple births Hx # Pregnancies Ectopic pregnancies AB induced Hx Number of Living Children 4 AB spontaneous Time Spent with Patient Time Spent with Patient: 45-69 minutes Time was spent: preparing to see the patient(eg.review tests), obtaining and/or reviewing separately otained hiistory, ordering medications,tests, procedures, referring, communicating with other health post acute care nurse practitioner and indepentently interpreting results
--- NOTE | 2023-09-19 10:53 | DIABASSESS_ITS ---
Date of service: 09/19/23 Time of Service: 09:30 Diabetes Note Reason for Visit: Routine Consult - Diabetes Education NOTE: Nahed sitting with her brother, ready for discharge upon meeting her. She has been meeting with dietitian for ongoing diabetes education at [facility] [place] [place]. She was interested in meeting with someone closer to home and took my contact information for outpatient referral. Time Spent in Nutritional Counseling and Treatment: 0
[2023-09-19 11:30] LABS: BUN 26 mg/dL (7-18); CREATININE 1.3 mg/dL (0.55-1.02); Calcium 8.2 mg/dL (8.5-10.1); Chloride 97 mmol/L (98-107); Estimated GFR 43.15 (mL/min/1.73m2); Glucose 388 mg/dL (74-106); Potassium 4.5 mmol/L (3.5-5.1); Sodium 131 mmol/L (136-145)
[2023-09-19] MEDS: Famotidine 20 MG TAB PO (11:39)
[2023-09-19 11:40] LABS: Troponin I 693 ng/L (< or =60)
[2023-09-19 23:47] LABS: Legionella Ag Detection Urine Negative (Negative)
== END 2023-09-19 12:56 | disposition home or self-care (01) ==
LOC: ER 21:01 → MS 22:00
PROVIDERS: Nurse Practitioner Acute Care; Admitting Provider General Practice; Emergency Provider Physician Assistant; PCP Nurse Practitioner; Visit Provider General Practice
DX: A41.9 Sepsis, unspecified organism (principal); J18.9 Pneumonia, unspecified organism; R65.20 Severe sepsis without septic shock; J96.01 Acute respiratory failure with hypoxia; I24.89 Other forms of acute ischemic heart disease; J44.0 Chronic obstructive pulmonary disease with (acute) lower respiratory infection; Z87.891 Personal history of nicotine dependence; I25.10 Atherosclerotic heart disease of native coronary artery without angina pectoris; I25.2 Old myocardial infarction; Z95.5 Presence of coronary angioplasty implant and graft; E11.65 Type 2 diabetes mellitus with hyperglycemia; Z79.4 Long term (current) use of insulin; D64.9 Anemia, unspecified; Z85.3 Personal history of malignant neoplasm of breast; D53.8 Other specified nutritional anemias; I12.9 Hypertensive chronic kidney disease with stage 1 through stage 4 chronic kidney disease, or unspecified chronic kidney disease; E78.5 Hyperlipidemia, unspecified; I65.23 Occlusion and stenosis of bilateral carotid arteries; M48.00 Spinal stenosis, site unspecified; J30.9 Allergic rhinitis, unspecified; N18.9 Chronic kidney disease, unspecified
CPT/HCPCS: 00123; 36415; 80048; 80053; 82805; 83690; 84145; 85652; 87040; 87449; 87637; 93005; 94640; 96361; 96365; 96367; 96372; 96375; 99285; 71045; 83605; 83735; 83880; 84484; 85025; 85379; 86140; 93010; 99222; 99239; G0378; J0696; J1815; J2919; J7620

== ENCOUNTER 2023-09-30 11:11 | Outpatient (REF) | payer MEDICARE, BC, SELFPAY ==
[2023-09-30 16:02] LABS: Abs Immature Grans 0.06 10^3/uL (0.0-0.06); Absolute Basophil Count 0.01 10^3/uL (0.0-0.2); Absolute Eosinophil Count 0.05 10^3/uL (0.0-0.7); Absolute Lymphocyte Count 1.05 10^3/uL (1.2-3.4); Absolute Monocyte Count 0.82 10^3/uL (0.1-0.8); Absolute Neutrophil Count 4.41 10^3/uL (1.2-6.7); Basophils % 0.2; Eosinophils % 0.8; HCT 35.2 % (36.0-46.0); HGB 10.9 g/dL (11.2-15.7); Immature Grans % 0.9; Lymphocytes % 16.4; MCH 29.9 pg (27.0-33.0); MCV 96 fL (80-95); MPV 9.5 fL (8.0-11.0); Monocytes % 12.8; Neutrophils % 68.9; Platelet Count 238 10^3/uL (130-400); RBC 3.65 10^6/uL (3.93-5.22); RDW 15.1 % (11.7-14.6)
[2023-09-30 16:36] LABS: Hemoglobin A1C 7.3 % (<5.7)
[2023-09-30 16:45] LABS: Anion Gap 10.3 mmol/L (3-11); BUN 30 mg/dL (7-18); CO2 28.7 mmol/L (21.0-32.0); CREATININE 1.4 mg/dL (0.55-1.02); Calcium 9.9 mg/dL (8.5-10.1); Chloride 102 mmol/L (98-107); Estimated GFR 39.48 (mL/min/1.73m2); Glucose 193 mg/dL (74-106); Potassium 4.7 mmol/L (3.5-5.1); Sodium 141 mmol/L (136-145)
== END 2023-09-30 11:12 | disposition home or self-care (01) ==
LOC: LBN 11:11
PROVIDERS: PCP Nurse Practitioner; Visit Provider Nurse Practitioner
DX: E11.65 Type 2 diabetes mellitus with hyperglycemia (principal); R79.9 Abnormal finding of blood chemistry, unspecified; Z79.4 Long term (current) use of insulin
CPT/HCPCS: 80048; 83036; 85025

== ENCOUNTER 2023-10-15 15:58 | Outpatient (CLI) | payer MEDICARE, BC, SELFPAY ==
--- NOTE | 2023-10-15 13:45 | DI.RAD_ITS ---
Exam(s) XR SHOULDER LT COMPLETE 2+V EXAM: XR SHOULDER LT COMPLETE 2+V CLINICAL HISTORY: LEFT SHOULDER PAIN. TECHNIQUE: 2D digital imaging was performed of the left shoulder. Four images were obtained. Grash ey, Y and axillary views were obtained. COMPARISON: No exams were available for comparison FINDINGS: BONES: No acute fracture is present. No bony destructive lesion is seen. JOINTS: No dislocation present. The glenohumeral joint is well maintained. There are mild degenerati ve changes seen at the acromioclavicular joint. SOFT TISSUE: Normal. IMPRESSION: Mild degenerative changes of the acromioclavicular joint. DATA REPOSITORY: RADIATION DOSE DELIVERED:
== END 2023-10-15 15:59 | disposition home or self-care (01) ==
LOC: DIORS 15:58
PROVIDERS: PCP Nurse Practitioner; Referring Provider Nurse Practitioner; Visit Provider Student in an Organized Health Care Education/Training Program
DX: M25.512 Pain in left shoulder (principal); M75.02 Adhesive capsulitis of left shoulder
CPT/HCPCS: 20610; 73030; J1030

== ENCOUNTER → 2023-10-29 15:17 | Outpatient (CLI) | payer MEDICARE, BC, SELFPAY ==
--- NOTE | 2023-10-29 15:15 | DI.MRI_ITS ---
Exam(s) MR UPPER JOINT LT WO EXAM: MR UPPER JOINT LT WO CLINICAL HISTORY: Adhesive capsulitits of left shoulder M75.02. TECHNIQUE: Multiplanar multisequence MRI was performed. COMPARISON: Plain films October 26 FINDINGS: BONES: There is no fracture or contusion pattern. JOINTS:The acromioclavicular joint is normal. The glenohumeral joint is normal. TENDONS: Supraspinatus: Unremarkable. Infraspinatus: Unremarkable. Subscapularis: Unremarkable. Teres Minor: Unremarkable. Biceps and [place]: Thickening and intermediate signal within the upper long head of the biceps tendon as it passes over the anterior humeral head. MUSCLES: Unremarkable. GLENOID LABRUM: Unremarkable on this noncontrast examination. SOFT TISSUES: Unremarkable. OTHER: Subacromial and subdeltoid bursae foreign shows minimal fluid. On no visible capsular thicke frandy.. IMPRESSION: Tendinosis of the upper long head of the biceps. DATA REPOSITORY:
== END ==
PROVIDERS: PCP Nurse Practitioner; Visit Provider Student in an Organized Health Care Education/Training Program
DX: M75.02 Adhesive capsulitis of left shoulder (principal)
CPT/HCPCS: 73221

== ENCOUNTER → 2023-10-30 13:00 | Outpatient (BNVA) | payer MEDICARE, BC, SELFPAY | PROVIDERS: PCP Nurse Practitioner; Referring Provider Nurse Practitioner; Visit Provider Student in an Organized Health Care Education/Training Program | DX: M75.02 Adhesive capsulitis of left shoulder (principal) | CPT/HCPCS: 99213 ==

== ENCOUNTER 2023-12-09 07:21 | Emergency (ER) | payer MEDICARE, BC, SELFPAY ==
[2023-12-09] VITALS (27 sets, daily range): BP systolic 88–131; BP diastolic 17–87; PULSE 81–92; RESP 12–30; TEMP 36.5–37.2; O2SAT 92–96
--- NOTE | 2023-12-09 07:15 | RT.EKG_ITS ---
APPROVED REPORT Exam: Resting ECG Reason for Exam: dizzy,nausea,vomiting Patient Location: E HR:85 bpm ECG Measurements Heart Rate 85 AXIS SC 174 P 71 QRSd 79 QRS 19 QT 352 T 75 QTc 420 Conclusion Sinus rhythm...normal P axis, V-rate 60- [address] depression, lateral leads...ST <-0.07mV, I aVL V5 V6 no change from prior
--- NOTE | 2023-12-09 07:51 | W.ED.GENAD ---
Discharge Plan Disposition Patient Disposition: Home Condition: Stable Discharge Details Clinical Impression: Pneumonia Primary Care Provider: Janina Calloway ED Provider: Shahnaz Fraire Home Meds and New Rx's Prescriptions: New doxycycline hyclate 100 mg tablet 100 mg PO BID 10 Days Qty: 20 0RF No Action montelukast 10 mg tablet 10 mg PO DAILY insulin glargine [Lantus Solostar U-100 Insulin] 100 unit/mL (3 mL) insulin pen See Rx Instructions subcut BID Rx Instructions: 20 Units daily--pt instructed to increase by 2 units every 3 days if fasting BG consistently >150. Decrease 2 units if fasting BG consistently <90--[facility] [place] 06/12/23 fluticasone propionate 50 mcg/actuation spray,suspension 2 spray intranasal DAILY Qty: 16 0RF Rx Instructions: administer into each nostril [place] Saline 0.65 % drops 2 drp intranasal Q2H PRN (Reason: dry nasal passages) Qty: 50 1RF Rx Instructions: Trial through the day with steroid nasal spray codeine-guaifenesin 10-100 mg/5 mL liquid 5 ml PO Q6H PRN (Reason: cold symptoms) Qty: 120 0RF prednisone 20 mg tablet 40 mg PO DAILY AM Qty: 10 0RF Rx Instructions: COPD exacerbation -- take with food nitroglycerin 0.4 mg tablet, sublingual 0.4 mg sublingual Q5M PRN (Reason: chest pain) Qty: 30 6RF Rx Instructions: do not exceed 3 doses per episode (DME) lancets [Sure Comfort Lancets] 28 gauge misc 1 ea Miscellaneous DAILY Qty: 100 3RF Rx Instructions: Dx: E11.9 to maintain HbA1C less than 7% albuterol 90 mcg/actuation aerosol 90 mcg inhalation Q4H PRN Stiolto Respimat 2.5-2.5 mcg/actuation mist 2 puff inhalation DAILY Qty: 4 12RF nystatin 100,000 unit/gram ointment 1 applic topical TID Qty: 60 3RF Rx Instructions: Ointment not cream due to propylene glycol allergy. desonide 0.05 % ointment 1 applic topical DAILY Qty: 15 3RF citalopram 10 mg tablet 20 mg PO QHS Qty: 60 1RF Rx Instructions: Trial, 10mg daily x 1 week Oxygen EACH NS At Night Qty: 2 0RF Patient Comments: 2 L at night and CPAP- patient states she wore these 11/10/17 multivitamin [Daily Multi-Vitamin] 1 EACH tablet 1 ea PO DAILY Patient Comments: patient states she took this roughly one week ago (DME) FreeStyle Basia 2 [facility] [place] See Rx Instructions .ROUTE .MEDSUPPLY Qty: 1 0RF Rx Instructions: As directed Prolia 60 mg/mL syringe 60 mg subcut [id number] letrozole 2.5 mg tablet 2.5 mg PO DAILY Rx Instructions: 09/22/21 Hem/Onc prescribes. fluocinolone 0.01 % solution 1 applic topical BID (DME) Blood Glucose Test Strip See Rx Instructions .ROUTE .MEDSUPPLY Qty: 250 1RF Rx Instructions: As directed to check blood glucose three times daily. On insulin. Dispense covered brand (Freestyle Lite) fiber supplements 1 tab PO DAILY magnesium oxide 400 mg (241.3 mg magnesium) tablet See Rx Instructions PO .COMPLEX Qty: 180 3RF Rx Instructions: 400 mg AM and PM as per María Mendoza cetirizine 10 mg tablet 10 mg PO DAILY Qty: 90 3RF Jardiance 25 mg tablet 25 mg PO DAILY AM Qty: 90 3RF Rx Instructions: Administer once daily in the morning, with or without food sucralfate [Carafate] 1 gram tablet 1 g PO QACHS Qty: 60 0RF (DME) FreeStyle Basia 2 Sensor Kit See Rx Instructions .ROUTE .MEDSUPPLY Qty: 6 3RF Rx Instructions: As directed hydrochlorothiazide 25 mg tablet 25 mg PO DAILY AM Qty: 90 3RF clotrimazole 10 mg jihan 10 mg mucous membrane ONCE Qty: 30 4RF Rx Instructions: Use valsartan 160 mg tablet 160 mg PO DAILY Qty: 90 3RF calcium citrate 200 mg (950 mg) tablet 200 mg PO BID Qty: 180 3RF Trulicity 0.75 mg/0.5 mL pen injector 1.5 mg subcut QWEEK Rx Instructions: 0.75mg weekly for 4 weeks--[facility] [place] 06/12/23 increased 1.5mg weekly 07/17/23 [facility] [place] insulin lispro [Humalog KwikPen Insulin] 100 unit/mL insulin pen 12 unit subcut TID Patient Comments: 18 Units with meals--[facility] [place] Note 06/12/23 12 Units with meals--[facility] [place] Note 07/17/23 rosuvastatin 40 mg tablet See Rx Instructions .ROUTE .COMPLEX Qty: 90 3RF Hold Instructions: Home Medication placed on hold at Doctor's office Dose Instruction: TAKE ONE TABLET BY MOUTH EVERY DAY Rx Instructions: TAKE ONE TABLET BY MOUTH EVERY DAY (DME) pen needle, diabetic [BD Marina 2nd Gen Pen Needle] 32 gauge x /32 needle See Rx Instructions .ROUTE .COMPLEX Qty: 400 3RF Dose Instruction: USE FOUR TIMES A DAY Rx Instructions: USE FOUR TIMES A DAY albuterol sulfate 2.5 mg /3 mL (0.083 %) solution for nebulization 2.5 mg inhalation Q4H PRN (Reason: shortness of breath or wheezing) Qty: 75 0RF ferrous sulfate [FeroSul] 325 mg (65 mg iron) tablet See Rx Instructions .ROUTE .COMPLEX Qty: 60 1RF Dose Instruction: TAKE ONE TABLET BY MOUTH EVERY DAY AT LEAST 1/2 HOUR BEFORE A MEAL, TAKE WITH VITAMIN C. OR ORANGE JUICE Rx Instructions: TAKE ONE TABLET BY MOUTH EVERY DAY AT LEAST 1/2 HOUR BEFORE A MEAL, TAKE WITH VITAMIN C. OR ORANGE JUICE metoprolol succinate 50 mg tablet extended release 24 hr See Rx Instructions .ROUTE .COMPLEX Qty: 90 3RF Dose Instruction: TAKE ONE TABLET BY MOUTH EVERY DAY Rx Instructions: TAKE ONE TABLET BY MOUTH EVERY DAY pantoprazole 40 mg tablet,delayed release (DR/EC) See Rx Instructions .ROUTE .COMPLEX Qty: 60 3RF Dose Instruction: TAKE ONE TABLET BY MOUTH EVERY DAY Rx Instructions: TAKE ONE TABLET BY MOUTH EVERY DAY metformin 500 mg tablet See Rx Instructions .ROUTE .COMPLEX Qty: 180 3RF Hold Instructions: Changed by Provider Dose Instruction: TAKE ONE TABLET BY MOUTH TWICE A DAY Rx Instructions: TAKE ONE TABLET BY MOUTH TWICE A DAY tramadol 50 mg tablet 50 mg PO TID PRN (Reason: pain) Qty: 12 0RF fluconazole 50 mg tablet See Rx Instructions .ROUTE .COMPLEX Qty: 5 0RF Rx Instructions: 150mg on day one and 75mg on day 3 if not improved aspirin [Adult Aspirin Regimen] 81 mg tablet,delayed release (DR/EC) 81 mg PO DAILY famotidine 40 mg tablet 20 mg PO DAILY Qty: 60 0RF Discharge Instructions Instructions: Pneumonia (ED) Additional Instructions: At this time it appears you have a left lower lobe pneumonia. This can explain many of your symptoms. Please take the antibiotic twice daily for the next 10 days with yogurt or a probiotic as directed. Please follow-up with your primary care provider in the next 14 days. Return to the ER for any worsening confusion, shortness of breath, pain, fever over 100.8 or any concerns. Increase oral fluids. Referrals: Janina Calloway NP [Primary Care Provider] - 2 weeks HPI General Mode of arrival: EMS. Date/Time Provider Initiated Documentation: 12/09/23 07:33. Limitations to Documentation: no limitations. Information obtained by: patient, EMS and old records reviewed. HPI Narrative: 73-year-old female presents to the ER with a chief complaint of nausea for the last 3 to 4 days, fatigue and chills. Has not been feeling well since had a endoscopy and colonoscopy on November 11. She had this done at [facility]. She reports she does have a history of iron deficiency anemia and was recently taken off her iron supplements. She does report some dark stools. Denies any abdominal pain does complain of some right-sided flank pain. She was also recently started on antidepression medications 2 days ago by her PCP. Reports dry heaves no vomiting no diarrhea. She did take Dulcolax was able to have a bowel movement she does have a history of constipation. Other past medical history includes type II insulin-dependent diabetes, hypertension hyperlipidemia, left-sided breast cancer, pericarditis, COPD, AV malformation, CAD. Related Data Home Medications Medication Instructions Recorded Confirmed multivitamin (Daily Multi-Vitamin 1 ea PO DAILY 03/19/17 12/09/23 tablet) flash glucose scanning reader #1 ea 05/04/21 12/06/23 (FreeStyle Basia 2 [facility]) denosumab 60 mg/mL subcutaneous 60 mg subcut [id number] 09/25/21 12/09/23 syringe (Prolia) letrozole 2.5 mg tablet 2.5 mg PO DAILY 09/25/21 12/09/23 fluocinolone 0.01 % topical 1 applic topical BID Itchy scalp 04/11/22 12/09/23 solution blood sugar diagnostic (Blood #250 ea 04/12/22 12/06/23 Glucose Test strips) fiber supplements 1 tab PO DAILY 05/23/22 12/09/23 cetirizine 10 mg tablet 10 mg PO DAILY #90 tabs 12/31/22 12/09/23 magnesium oxide 400 mg (241.3 mg See Rx Instructions PO .COMPLEX 12/31/22 12/09/23 magnesium) tablet low magnesium level #180 tab-caps empagliflozin 25 mg tablet 25 mg PO DAILY AM #90 tab-caps 02/11/23 12/09/23 (Jardiance) nitroglycerin 0.4 mg sublingual 0.4 mg sublingual Q5M PRN chest 02/14/23 12/09/23 tablet pain #30 tabs sucralfate 1 gram tablet (Carafate) 1 g PO QACHS #60 tabs 02/27/23 12/09/23 lancets 28 gauge (Sure Comfort #100 ea 03/20/23 12/06/23 Lancets) tramadol 50 mg tablet 50 mg PO TID PRN pain #12 tabs 03/20/23 12/09/23 flash glucose sensor (FreeStyle #6 ea 03/25/23 12/06/23 Basia 2 Sensor kit) albuterol 90 mcg/actuation aerosol 90 mcg inhalation Q4H PRN 03/27/23 12/09/23 inhaler hydrochlorothiazide 25 mg tablet 25 mg PO DAILY AM #90 tab-caps 03/28/23 12/09/23 tiotropium 2.5 mcg-olodaterol 2.5 2 puff inhalation DAILY #4 grams 03/29/23 12/09/23 mcg/actuation mist for inhalation (Stiolto Respimat) insulin glargine 100 unit/mL (3 See Rx Instructions subcut BID Dx: 06/14/23 12/09/23 mL) subcutaneous pen (Lantus E11.9 to maintain HbA1c less than Solostar U-100 Insulin) 7% montelukast 10 mg tablet 10 mg PO DAILY 06/18/23 12/09/23 clotrimazole 10 mg jihan 10 mg mucous membrane ONCE #30 tabs 07/08/23 12/09/23 calcium citrate 200 mg (950 mg) 200 mg PO BID #180 tabs 07/15/23 12/09/23 tablet valsartan 160 mg tablet 160 mg PO DAILY #90 tabs 07/15/23 12/09/23 dulaglutide 0.75 mg/0.5 mL 1.5 mg subcut QWEEK 07/18/23 12/09/23 subcutaneous pen injector (Trulicity) insulin lispro 100 unit/mL 12 unit subcut TID high blood sugar 07/18/23 12/09/23 subcutaneous pen (Humalog KwikPen (U-100) Insulin) rosuvastatin 40 mg tablet See Rx Instructions .Route 08/12/23 12/09/23 .COMPLEX #90 tabs desonide 0.05 % topical ointment 1 applic topical DAILY forehead 08/19/23 12/09/23 daily for up to 5 days #15 grams nystatin 100,000 unit/gram topical 1 applic topical TID perineal rash 08/19/23 12/09/23 ointment #60 grams fluconazole 50 mg tablet See Rx Instructions .Route 08/24/23 12/09/23 .COMPLEX #5 tabs pen needle, diabetic 32 gauge x #400 ea 08/28/23 12/06/23 5/32 (BD Marina 2nd Gen Pen Needle) fluticasone propionate 50 2 spray intranasal DAILY #16 grams 08/29/23 12/09/23 mcg/actuation nasal spray,suspension sodium chloride 0.65 % nasal drops 2 drp intranasal Q2H PRN dry nasal 08/29/23 12/09/23 ([place] Saline) passages #50 mL famotidine 40 mg tablet 20 mg (1/2 x 40 mg) PO DAILY #60 09/19/23 12/09/23 tabs albuterol sulfate 2.5 mg/3 mL 2.5 mg (3 mL) inhalation Q4H PRN 10/01/23 12/09/23 (0.083 %) solution for nebulization shortness of breath or wheezing #75 mL ferrous sulfate 325 mg (65 mg See Rx Instructions .Route 10/07/23 12/09/23 iron) tablet (FeroSul) .COMPLEX #60 tabs metoprolol succinate 50 mg See Rx Instructions .Route 10/07/23 12/09/23 tablet,extended release 24 hr .COMPLEX #90 tabs pantoprazole 40 mg tablet,delayed See Rx Instructions .Route 10/07/23 12/09/23 release .COMPLEX #60 tabs codeine 10 mg-guaifenesin 100 mg/5 5 ml PO Q6H PRN cold symptoms #120 11/20/23 12/09/23 mL oral liquid mL prednisone 20 mg tablet 40 mg (2 x 20 mg) PO DAILY AM #10 11/20/23 12/09/23 tabs citalopram 10 mg tablet 20 mg (2 x 10 mg) PO QHS #60 tabs 12/06/23 12/09/23 aspirin 81 mg tablet,delayed 81 mg PO DAILY 12/09/23 12/09/23 release (Adult Aspirin Regimen) doxycycline hyclate 100 mg tablet 100 mg PO BID 10 days #20 tabs 12/09/23 metformin 500 mg tablet See Rx Instructions .Route 12/09/23 12/09/23 .COMPLEX #180 tabs Previous Rx's Medication Instructions Recorded flash glucose scanning reader #1 ea 05/04/21 (FreeStyle Basia 2 [facility]) blood sugar diagnostic (Blood #250 ea 04/12/22 Glucose Test strips) cetirizine 10 mg tablet 10 mg PO DAILY #90 tabs 12/31/22 magnesium oxide 400 mg (241.3 mg See Rx Instructions PO .COMPLEX 12/31/22 magnesium) tablet low magnesium level #180 tab-caps empagliflozin 25 mg tablet 25 mg PO DAILY AM #90 tab-caps 02/11/23 (Jardiance) nitroglycerin 0.4 mg sublingual 0.4 mg sublingual Q5M PRN chest 02/14/23 tablet pain #30 tabs sucralfate 1 gram tablet (Carafate) 1 g PO QACHS #60 tabs 02/27/23 lancets 28 gauge (Sure Comfort #100 ea 03/20/23 Lancets) tramadol 50 mg tablet 50 mg PO TID PRN pain #12 tabs 03/20/23 flash glucose sensor (FreeStyle #6 ea 03/25/23 Basia 2 Sensor kit) hydrochlorothiazide 25 mg tablet 25 mg PO DAILY AM #90 tab-caps 03/28/23 tiotropium 2.5 mcg-olodaterol 2.5 2 puff inhalation DAILY #4 grams 03/29/23 mcg/actuation mist for inhalation (Stiolto Respimat) clotrimazole 10 mg jihan 10 mg mucous membrane ONCE #30 tabs 07/08/23 calcium citrate 200 mg (950 mg) 200 mg PO BID #180 tabs 07/15/23 tablet valsartan 160 mg tablet 160 mg PO DAILY #90 tabs 07/15/23 rosuvastatin 40 mg tablet See Rx Instructions .Route 08/12/23 .COMPLEX #90 tabs desonide 0.05 % topical ointment 1 applic topical DAILY forehead 08/19/23 daily for up to 5 days #15 grams nystatin 100,000 unit/gram topical 1 applic topical TID perineal rash 08/19/23 ointment #60 grams fluconazole 50 mg tablet See Rx Instructions .Route 08/24/23 .COMPLEX #5 tabs pen needle, diabetic 32 gauge x #400 ea 08/28/23 (BD Marina 2nd Gen Pen Needle) fluticasone propionate 50 2 spray intranasal DAILY #16 grams 08/29/23 mcg/actuation nasal spray,suspension sodium chloride 0.65 % nasal drops 2 drp intranasal Q2H PRN dry nasal 08/29/23 ([place] Saline) passages #50 mL famotidine 40 mg tablet 20 mg (1/2 x 40 mg) PO DAILY #60 09/19/23 tabs albuterol sulfate 2.5 mg/3 mL 2.5 mg (3 mL) inhalation Q4H PRN 10/01/23 (0.083 %) solution for nebulization shortness of breath or wheezing #75 mL ferrous sulfate 325 mg (65 mg See Rx Instructions .Route 10/07/23 iron) tablet (FeroSul) .COMPLEX #60 tabs metoprolol succinate 50 mg See Rx Instructions .Route 10/07/23 tablet,extended release 24 hr .COMPLEX #90 tabs pantoprazole 40 mg tablet,delayed See Rx Instructions .Route 10/07/23 release .COMPLEX #60 tabs codeine 10 mg-guaifenesin 100 mg/5 5 ml PO Q6H PRN cold symptoms #120 11/20/23 mL oral liquid mL prednisone 20 mg tablet 40 mg (2 x 20 mg) PO DAILY AM #10 11/20/23 tabs citalopram 10 mg tablet 20 mg (2 x 10 mg) PO QHS #60 tabs 12/06/23 doxycycline hyclate 100 mg tablet 100 mg PO BID 10 days #20 tabs 12/09/23 metformin 500 mg tablet See Rx Instructions .Route 12/09/23 .COMPLEX #180 tabs Allergies Allergy/AdvReac Type Severity Reaction Status Date / Time propylene glycol Allergy Severe Rash Verified 12/09/23 07:56 anastrozole Allergy Intermediate unknown Verified 12/09/23 07:56 petrolatum,white Allergy Intermediate rash Verified 12/09/23 07:56 [From Petroleum Jelly] adhesive tape Allergy Unknown Skin Rash Verified 12/09/23 07:56 alendronate sodium Allergy Unknown Hives Verified 12/09/23 07:56 azithromycin AdvReac Intermediate dry heaves Verified 12/09/23 07:56 and diarrhea hydrocodone bitartrate AdvReac Intermediate Nausea Verified 12/09/23 07:56 [From Vicodin] liraglutide [From Victoza] AdvReac Intermediate diarhhea Verified 12/09/23 07:56 lorazepam [From Ativan] AdvReac Intermediate felt Verified 12/09/23 07:56 crazy paraben AdvReac Intermediate Skin Rash Verified 12/09/23 07:56 quaternium 15 AdvReac Intermediate generalized Verified 12/09/23 07:56 rash roflumilast AdvReac Intermediate Diarrhea Verified 12/09/23 07:56 zolpidem [From Ambien] AdvReac Intermediate confusion Verified 12/09/23 07:56 LANDON Inhibitors AdvReac Unknown COUGH,DYSPN Verified 12/09/23 07:56 EA oxycodone HCl [From Percocet] AdvReac Unknown NAUSEA/VOMI Verified 12/09/23 07:56 TING Benzodiazepines AdvReac Visual Verified 12/09/23 07:56 Disturbances fragranced creams Allergy Intermediate Skin Rash Uncoded 12/09/23 07:56 parabin wax Allergy Intermediate Skin Rash Uncoded 12/09/23 07:56 diogolidinyl AdvReac Severe Skin Rash Uncoded 12/09/23 07:56 bisphenal AdvReac Intermediate Skin Rash Uncoded 12/09/23 07:56 General Stated Complaint: GenMedical BRUNA: 3 Review of Systems All systems reviewed & are unremarkable except as noted in HPI and below Constitutional Constitutional: Reports chills, Reports daytime sleepiness, Reports fatigue and Reports lethargy Gastrointestinal Gastrointestinal: Reports constipation and Reports nausea Endocrine Endocrine: Reports fatigue Exam Narrative Exam Narrative: Constitutional: Alert and oriented x3. Appears stated age. Normal body habitus. Head: Normocephalic, no trauma. Eyes: Pupils PERRL, Red reflex noted, EOM's intact. Eyelids symmetrical without lesions, discharge, or swelling. ENT: Bilateral TM's WNL, External ear normal to inspection, no mastoid TTP, swelling, or erythema, Nasal turbinates WNL, no nasal discharge. Normal dentition, Posterior pharynx WNL, no exudate. Chest: RRR, Normal S1, S2, distal pulses intact. Resp: Lungs clear to auscultation bilaterally, no wheezes, rales, or rhonchi. Abdomen: Soft, non-distended, Normoactive bowel sounds all 4 quads. Musculoskeletal: Normal gait, Skin: No suspicious rashes or lesions. Capillary refill less than 2 sec. Neurologic: Cranial nerves II-XII intact. Alert and oriented x 3. Motor: No deficits noted. Sensory: Intact bilaterally all 4 extremities. Hematologic/Lymphatic: No ecchymosis, no lymphadenopathy. Course Vital Signs Vital signs: Vital Signs Temperature 36.5 C 12/09/23 07:22 Pulse 89 12/09/23 07:22 Respiratory Rate 18 12/09/23 07:22 Pulse Oximetry 92 12/09/23 07:22 Temperature 36.5 C 12/09/23 07:30 Temperature Source Oral 12/09/23 07:30 Pulse 84 12/09/23 07:30 Respiratory Rate 18 12/09/23 07:30 Respiratory Effort Normal 12/09/23 07:30 Respiratory Depth Normal 12/09/23 07:30 Respiratory Pattern Normal 12/09/23 07:30 Blood Pressure 131/38 L 12/09/23 07:30 Blood Pressure Position Supine 12/09/23 07:30 Pulse Oximetry 93 12/09/23 07:30 Oxygen Delivery Method Nasal Cannula 12/09/23 07:30 Medical Decision Making 73-year-old female presents to the ER with a chief complaint of nausea for the last 3 to 4 days, fatigue and chills. Has not been feeling well since had a endoscopy and colonoscopy on November 11. She had this done at [facility]. She reports she does have a history of iron deficiency anemia and was recently taken off her iron supplements. She does report some dark stools. Denies any abdominal pain does complain of some right-sided flank pain. She was also recently started on antidepression medications 2 days ago by her PCP. Reports dry heaves no vomiting no diarrhea. She did take Dulcolax was able to have a bowel movement she does have a history of constipation. Other past medical history includes type II insulin-dependent diabetes, hypertension hyperlipidemia, left-sided breast cancer, pericarditis, COPD, AV malformation, CAD. Workup ordered including CBC CMP troponin, EKG type and screen. Labs show slightly elevated white blood cell count at 11.8, hx of anemia Hemoglobin 8.7 Hct 28, BUN 31 creatinine 1.5 which is at patient's baseline, glucose 201, albumin 2.8, urine shows no leukocytosis no nitrites. Greater than thousand glucose. CT shows some infiltrates in the bases bilateral lungs. No intra-abdominal acute pathology. Presumed pneumonia. Chest x-ray ordered. Chest x-ray shows a left lower lobe infiltrate. Patient is tolerating p.o. fluids without difficulty. She remained hemodynamically stable throughout the remainder of her stay. She is requesting to be discharged home. Will discharge with prescription of doxycycline which was sent to the pharmacy on file. This text was generated using [employer] system, please disregard any oddities of phrase or misspellings. Medical Records Medical records reviewed: Yes I reviewed the patient's medical records. Imaging Data Radiologic Study: Imaging: X-Ray Radiologist's impression: EXAM: XR CHEST 2V PA LATERAL CLINICAL HISTORY: Fatigue, Left side infiltrates TECHNIQUE: 2D digital imaging was performed. Two views. COMPARISON: CR,XR XR PORTABLE CHEST AP from 09/18/[address] ABDOMEN PELVIS WO from 12/09/2023 FINDINGS: HEART: Normal size. Aorta: Not dilated. PULMONARY VASCULATURE: Normal. LUNGS: Left lower lobe infiltrate. PLEURAL SPACE: No pleural effusion or pneumothorax. BONE:Unremarkable for age. Soft tissues: Unremarkable. IMPRESSION: Left lower lobe infiltrate Lab Data Lab results reviewed: Yes I reviewed the patient's lab results. Labs: Laboratory Tests Range/Units 12/09/23 12/09/23 12/09/23 07:45 08:10 08:53 WBC (4.4-10.8) 10^3/uL 11.81 H RBC (3.93-5.22) 10^6/uL 2.87 L Hgb (11.2-15.7) g/dL 8.7 L Hct (36.0-46.0) % 28.4 L MCV (80-95) fL 99 H MCH (27.0-33.0) pg 30.3 MCHC (32.0-36.0) % 30.6 L RDW (11.7-14.6) % 15.4 H Plt Count (130-400) 10^3/uL 201 MPV (8.0-11.0) fL 8.8 Immature Gran % 1.8 Neutrophils % 81.9 Lymphocytes % 5.4 Monocytes % 9.9 Eosinophils % 0.8 Basophils % 0.2 Nucleated RBC % (0.0-0.3) % 0.0 Absolute Neutrophils (1.2-6.7) 10^3/uL 9.67 H Absolute Lymphocytes (1.2-3.4) 10^3/uL 0.64 L Absolute Monocytes (0.1-0.8) 10^3/uL 1.17 H Absolute Eosinophils (0.0-0.7) 10^3/uL 0.09 Absolute Basophils (0.0-0.2) 10^3/uL 0.02 RBC Morphology See Below Polychromasia Present Hypochromasia 2+ Sodium (136-145) mmol/L 136 Potassium (3.5-5.1) mmol/L 4.8 Chloride (98-107) mmol/L 100 Carbon Dioxide (21.0-32.0) mmol/L 31.9 Anion Gap (3-11) mmol/L 4.1 BUN (7-18) mg/dL 31 H Creatinine (0.55-1.02) mg/dL 1.5 H Est GFR (CKD-EPI 2020) (mL/min/1.73m2) 36.34 Glucose (74-106) mg/dL 201 H Calcium (8.5-10.1) mg/dL 10.3 H Magnesium (1.8-2.4) mg/dL 2.1 Total Bilirubin (0.2-1.0) mg/dL 0.4 AST (15-37) U/L 27 ALT (14-59) U/L 64 H Alkaline Phosphatase (46-116) U/L 52 Troponin I (< or =60) ng/L < 50 Total Protein (6.4-8.2) g/dL 7.4 Albumin (3.4-5.0) g/dL 2.8 L Lipase (16-77) U/L 33 Urine Color (Yellow) Yellow Urine Clarity (Clear) Clear Urine pH (5-8) 6.0 Ur Specific [place] (1.005-1.025) 1.015 Urine Protein (Neg-Trace) mg/dL 30 H Urine Ketones (Negative) mg/dL Negative Urine Blood (Negative) Negative Urine Nitrite (Negative) Negative Urine Bilirubin (Negative) Negative Urine Urobilinogen (Up to 0.2) mg/dL 0.2 Ur Leukocyte Esterase (Negative) Negative Urine RBC (0-2) HPF 0-2 Urine WBC (0-5) HPF 0-2 Ur Epithelial Cells (Negative) HPF Rare Urine Crystals (Negative) HPF Negative Urine Bacteria (Negative) HPF Rare Urine Casts (Negative) LPF 0-2 Coarse Granular Urine Mucus (Negative) Negative Urine Other (Negative) Rare Yeast Ur Culture Indicated? No Urine Glucose (Negative) mg/dL >=1000 H Add-On Test Request DONE Patient ABO/Rh A Positive Antibody Screen NEGATIVE Quality:SDOH Health Related Social Needs: No Data to Display PFSH All Active Problems (Updated 12/09/23 @ 11:24 by Shahnaz Fraire NP) Pneumonia (Acute) Anxiety (Chronic) Adhesive capsulitis of left shoulder (Acute) Sepsis (Acute) Pneumonia (Acute ~09/2023) Acute hypoxemic respiratory failure (Acute) Kaylee rash of groin (Acute) Arteriovenous malformation (Acute ~06/2023) 06/27/23 Gastro Former smoker (Acute) Asymptomatic menopausal state (Acute) [facility] [place] 06/12/23 Type 2 diabetes mellitus with hyperglycemia, with long-term current use of insulin (Acute) [facility] [place] 06/12/23 Ductal carcinoma in situ (DCIS) of left breast (Acute) [facility] [place]c [place] 06/05/23 Iron deficiency anemia secondary to blood loss (chronic) (Acute) 05/01/23 Hem/Onc GI bleed (Chronic) Demand ischemia (Acute) Chronic respiratory failure with hypoxia (Acute) Anemia (Chronic) Esophagitis determined by endoscopy (Acute ~12/2022) Compression fracture of L3 vertebra (Acute ~2021) Mucous cyst of digit of left hand (Acute ~12/2022) s/p excision of mucous cyst DOS: 01/08/23 Trigger finger, left middle finger (Acute) 40 mg Depo-Medrol injection: 11/12/2022 s/p trigger release DOS: 01/08/23 History of breast cancer (Acute) Dermatitis, seborrheic (Acute) 07/06/22 Dr Moreno Anemia, macrocytic (Acute) 05/03/22 Hem/Onc Note Essential hypertension (Acute 05/16/04) Microalbuminuria due to type 2 diabetes mellitus (Acute) Hyperlipidemia (Acute 03/18/07) Type 2 diabetes mellitus, with long-term current use of insulin (Acute ~1999) Renal artery stenosis, [place], bilateral (Chronic) [facility] [place]; most recent OV 06/01/21 Atherosclerosis of both carotid arteries (Chronic 11/12/16) [facility] [place]; most recent OV 06/01/21; Recommend annual carotid US COPD, very severe (Chronic) [facility] Pulm O2 dependent ASCVD (arteriosclerotic cardiovascular disease) (Chronic) [facility] [place]21 Vascular note: Asymptomatic bilateral carotid artery stenosis Non-ST elevation (NSTEMI) myocardial infarction (Acute ~12/2020) S/p proximal LCX stent placement 01/27/21 [facility] [place] CKD (chronic kidney disease) (Chronic) Obstructive sleep apnea (Chronic 03/02/14) Bipap w/ 2L 02 09/06/2019 Medical History Esophageal thrush Allergic contact dermatitis due to other agents Malignant neoplasm of unspecified site of left female breast (~10/2021) 11/06/21 Dr Mcgill ([facility] Rad[facility]Onc Office); Radiation Therapy planned 12/21/21-hormone receptor positive Gross hematuria Vulvar irritation Breast cancer in female (~05/2021) R 2002, L 2003 s/p B/L partial mastectomy, XRT, & tamoxifen. 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) Estrogen receptor positive s/p RXT, surgical removal of tumor Enteritis Back pain Post-menopausal bleeding Pelvic pain Pericarditis (~12/2020) S/p [place] Vaginitis and vulvovaginitis, unspecified Tobacco use disorder 30-50 PY, QUIT 1999 Compression fracture of lumbar vertebra (03/14/17) Depression (11/30/02) s/p of brother (on SSRI for short time) Solitary pulmonary nodule (12/22/15) Incidental finding of 6 mm pulm nodule RLL on 11/07/[address] with 6 month f/u chest CT recommended; 04/2016 6-month f/u chest CT: resolution of nodule Pneumonia Spinal stenosis (02/04/14) Multi level on MRI Reflux esophagitis (07/16/12) LA GRADE B , EGD W/ BX 05/04/15 Osteopenia (02/14/16) DEXA 02/14/16: Fem neck t-score -1.2 --> WHO FRAX major osteoporotic 13% & hip fx 1.3% risk --> does not qualify for bisphosphonates --> Ca & vit D 03/2017 L3 compression fx --> re-calc WHO FRAX major osteoporotic 21% & hip fx 2.3% risk --> now qualifies for bisphosphonate tx, started 03/2017 Probable allergic rxn to Alendronate (1st pill Wed, Hiv Th and stayed thru today (but no worsening), 07/05. Agree to STOP for now. Leg cramps (04/01/14) Low Mg+ --> supplementation helped, but caused diarrhea; handout on dietary Mg+ given Iron deficiency anemia (01/02/17) S/p colo & EGD 05/2015, then capsule endoscopy & push enteroscopy with no definitive etiology identified; 11/14/2017: repeat colonoscopy (due to return of anemia) showing a colonic angioectasia, which may have been source of bleeding & anemia (no overt bleeding found). Fe supplementation & monitor 10/29/22 Seen by [facility] [place] Intraabdominal calcification (11/14/15) Incidental finding on CT 2 mm between bladder and uterus, no further eval required, AOC Hypomagnesemia (03/04/17) Hiatal hernia (02/11/14) Smaller portions Endoscopy 10/04 anemia (nothing found), [facility] [place] Heart murmur 07/11/2016 echo: mild-moderate mitral regurgitation DJD (degenerative joint disease) (02/04/14) Lumbar spine--multiple level on MRI Surgery 10/2011, [facility] Dr. 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/21/16 [facility] [place] consult: moderate stenosis, not source of clinical pathology, & no intervention or further evaluation indicated Anemia (02/11/14) Suspect chronic dz/bone marrow suppression s/p breast CA tx (radiation); s/p GI workup (possible AVMs?), NL B12/folate, elevated Epo, NL retic count; chronic iron supplementation Allergic rhinitis Superior mesenteric artery stenosis Chronic GI bleeding Headache Surgical History H/O colonoscopy (~11/02/22) 11/02/22 , 1 cecal polyp removed - f/u 10 years 11/12/23[place] [place] H/O endoscopy (~06/21/22) DH 11/02/22 Upper GI endoscopy 11/12/23[place] [place]3 non-bleeding angioectasias-biopsies taken H/O partial mastectomy (~10/26/21) Left breast S/P breast biopsy, left (05/09/21) u/s guided Core Bx History of hysterectomy, supracervical Status post coronary artery stent placement (~01/27/21) H/O laminectomy (~10/06/12) L5S1 Dr. Jarrod Ballard H/O laminectomy L5S1 Tooth Extractions Multiple Oophrectomy, Right (~2007) For unknown reason Extraction of cataract left eye surgical removal with intraocular lens implant. Dr Agee Breast, Lumpectomy (~2003) B/L for breast CA Biopsy, Lymph Node (~2003) (L) axilla for breast CA Family History Sister Breast cancer Mother , 89 Alzheimer's dementia Breast cancer Father , AGE 75 Alcohol abuse Cirrhosis Sister Neoplasm uterine CA Sister Heart disease Brother Heart disease Niece Breast cancer Social History Smoking/Tobacco Use Status: Former Tobacco Use tobacco type: cigarettes Quit Date: 09/02/95 Tobacco: How many years used: 25 Smoking risk assessment performed?: Yes Alcohol Intake: former Details: none Drug use: Never Substance use type: does not use Adopted: No Caregiver/Support person: No Foster care: No Household members: spouse Housing: house Number of Children: 4 Communication Needs: None Pets and animals: No Current gender identity: female What type of physical activity do you participate in: regular exercise Duration: < 15 minutes/day Frequency: 3-4 times per week Mell/Jew: Mandaen Seatbelt use: always Drive intox or ride w/intox motor bus driver: No Working smoke detector in home: Yes Fire extinguisher in home: Yes Carbon monox detector in home: Yes Do you feel safe at home: Yes Do you feel safe in your relationship?: Yes History History Para Hx # Term Pregnancies Multiple births Hx # Pregnancies Ectopic pregnancies AB induced Hx Number of Living Children 4 AB spontaneous
[2023-12-09 07:54] LABS: Abs Immature Grans 0.21 10^3/uL (0.0-0.06); Absolute Basophil Count 0.02 10^3/uL (0.0-0.2); Absolute Eosinophil Count 0.09 10^3/uL (0.0-0.7); Absolute Lymphocyte Count 0.64 10^3/uL (1.2-3.4); Absolute Monocyte Count 1.17 10^3/uL (0.1-0.8); Basophils % 0.2; Eosinophils % 0.8; HCT 28.4 % (36.0-46.0); HGB 8.7 g/dL (11.2-15.7); Immature Grans % 1.8; Lymphocytes % 5.4; MCH 30.3 pg (27.0-33.0); MCHC 30.6 % (32.0-36.0); MCV 99 fL (80-95); MPV 8.8 fL (8.0-11.0); Monocytes % 9.9; Neutrophils % 81.9; Platelet Count 201 10^3/uL (130-400); RBC 2.87 10^6/uL (3.93-5.22); RDW 15.4 % (11.7-14.6); RDW-SD 54.4 fL; WBC 11.81 10^3/uL (4.4-10.8)
[2023-12-09 08:02] LABS: Absolute Neutrophil Count 9.67 10^3/uL (1.2-6.7)
[2023-12-09 08:12] LABS: ALT 64 U/L (14-59); AST 27 U/L (15-37); Albumin 2.8 g/dL (3.4-5.0); Alkaline Phosphatase 52 U/L (46-116); Anion Gap 4.1 mmol/L (3-11); BUN 31 mg/dL (7-18); Bilirubin, Total 0.4 mg/dL (0.2-1.0); CO2 31.9 mmol/L (21.0-32.0); CREATININE 1.5 mg/dL (0.55-1.02); Calcium 10.3 mg/dL (8.5-10.1); Chloride 100 mmol/L (98-107); Estimated GFR 36.34 (mL/min/1.73m2); Glucose 201 mg/dL (74-106); Magnesium 2.1 mg/dL (1.8-2.4); Potassium 4.8 mmol/L (3.5-5.1); Sodium 136 mmol/L (136-145); Total Protein 7.4 g/dL (6.4-8.2); Troponin I < 50 ng/L (< or =60)
[2023-12-09 08:24] LABS: Bilirubin Negative (Negative); Blood Negative (Negative); Clarity Clear (Clear); Glucose >=1000 mg/dL (Negative); Ketones Negative (Negative); Leukocyte Esterase Negative (Negative); Nitrite Negative (Negative); Specific Gravity 1.015 (1.005-1.025); Urobilinogen 0.2 mg/dL (Up to 0.2)
[2023-12-09 08:56] LABS: Epithelial Cells Rare HPF (Negative); RBC 0-2 HPF (0-2); WBC 0-2 HPF (0-5)
[2023-12-09 08:57] LABS: Lab Add On Test DONE
[2023-12-09 08:59] LABS: Other Cells Rare Yeast (Negative)
[2023-12-09 09:00] LABS: Bacteria Rare HPF (Negative); Crystals Negative HPF (Negative); Mucus Negative (Negative)
[2023-12-09 09:01] LABS: C & S Indicated? No; Casts 0-2 Coarse Granular LPF (Negative)
[2023-12-09 09:08] LABS: Diff Comment Diff Reviewed; Hypochromasia 2+
[2023-12-09 09:09] LABS: Polychromasia Present
[2023-12-09 09:11] LABS: Lipase 33 U/L (16-77)
--- NOTE | 2023-12-09 09:52 | DI.CT_ITS ---
Exam(s) CT ABDOMEN PELVIS WO EXAM: CT ABDOMEN PELVIS WO CLINICAL HISTORY: Right flank pain, nausea, constipation. TECHNIQUE: Imaging Protocol: Axial computed tomography images with coronal and sagittal reformatted images were created and reviewed CONTRAST MATERIAL: Intravenous: none Oral: None COMPARISON: CT CT CHEST PE CTA from 03/25/2023 FINDINGS: VISUALIZED LUNG BASES: Multifocal patchy infiltrates noted in the partially visualized lung bases. T here is also a larger area of subpleural infiltrate in the lateral basal segment of the left lower lo be. These findings were not evident on chest CT scan of March 2023.. There are no associated pleural effusions. Calcified mitral valve annulus noted in the heart. Heart size is normal. There is no pericardial ef fusion. ABDOMEN: There is no ascites. LIVER: There are no obvious focal hepatic lesions evident of this noninfused study. GALLBLADDER/BILIARY: No obvious gallbladder pathology. CBD is not dilated. PANCREAS: No evidence of pancreatic mass nor dilatation of the pancreatic duct. SPLEEN: Spleen is not enlarged. No obvious intrasplenic lesions. ADRENALS: Left adrenal gland unremarkable. There is slight thickening of the right adrenal gland, un changed from previous and probably incidental adenoma. KIDNEYS:Mild bilateral perinephric streaking noted. No solid renal masses nor cysts nor intrarenal c alculi evident. No calculi evident in the nondilated ureters nor within the urinary bladder.. ABDOMINAL AORTA: Abdominal aorta is heavily calcified. Mildly dilated above the aortic bifurcation w here it exhibits diameter of 2.3 cm just above the bifurcation. The common iliac arteries are heavil y calcified but not enlarged. LYMPH NODES: There is no retroperitoneal nor paraaortic adenopathy. ABDOMINAL WALL: No evidence of significant anterior abdominal wall nor inguinal hernia. GI: There is no evidence of bowel obstruction, free air, nor abscess. PELVIS: LYMPH NODES: There is no intrapelvic nor inguinal adenopathy. GI: No evidence of appendicitis.No evidence of sigmoid diverticulitis. URINARY BLADDER: No calculi nor obvious masses evident REPRODUCTIVE: Uterus and adnexal regions appear age-appropriate. No free fluid. OSSEOUS: No significant osseous lesions. IMPRESSION: 1. Uppermost images of this abdominal study reveal patchy infiltrates in the lung bases, most promine nt in the lateral basal segment of the left lower lobe where there is a subpleural area of infiltrate measuring approximately 4 by 2.5 cm. No associated pleural effusion. 2. No evidence of bowel obstruction or free air. Apparently recent upper endoscopy. Called by myself to ER provider RADIATION DOSE DELIVERED: Total DLP DATA REPOSITORY: All CT scans at this facility are submitted to the National Radiology Data Registry (NRDR) Dose Index Registry (DIR) with the [employer] ([employer]). RADIATION OPTIMIZATION: All CT scans at this facility use at least one of these dose optimization te chniques: automated exposure control; mA and/or kV adjustment per patient size (includes targeted exa ms where dose is matched to clinical indication); or iterative reconstruction.
--- NOTE | 2023-12-09 10:00 | DI.RAD_ITS ---
Exam(s) XR CHEST 2V PA LATERAL EXAM: XR CHEST 2V PA LATERAL CLINICAL HISTORY: Fatigue, Left side infiltrates TECHNIQUE: 2D digital imaging was performed. Two views. COMPARISON: CR,XR XR PORTABLE CHEST AP from 09/18/[address] ABDOMEN PELVIS WO from 12/09/2023 FINDINGS: HEART: Normal size. Aorta: Not dilated. PULMONARY VASCULATURE: Normal. LUNGS: Left lower lobe infiltrate. PLEURAL SPACE: No pleural effusion or pneumothorax. BONE:Unremarkable for age. Soft tissues: Unremarkable. IMPRESSION: Left lower lobe infiltrate DATA REPOSITORY: RADIATION DOSE DELIVERED:
[2023-12-09] MEDS: DOXYCYCLINE 100 MG in Normal Saline 100 ML IVPB (10:22)
== END 2023-12-09 11:50 | disposition home or self-care (01) ==
PROVIDERS: Student in an Organized Health Care Education/Training Program; Emergency Provider Registered Nurse Emergency; PCP Nurse Practitioner
DX: J18.9 Pneumonia, unspecified organism (principal); R94.31 Abnormal electrocardiogram [ECG] [EKG]; E11.9 Type 2 diabetes mellitus without complications; I10 Essential (primary) hypertension; E78.5 Hyperlipidemia, unspecified; I25.10 Atherosclerotic heart disease of native coronary artery without angina pectoris; I25.2 Old myocardial infarction; J44.9 Chronic obstructive pulmonary disease, unspecified; Z95.5 Presence of coronary angioplasty implant and graft; Z79.4 Long term (current) use of insulin; Z79.84 Long term (current) use of oral hypoglycemic drugs; Z79.85 Long-term (current) use of injectable non-insulin antidiabetic drugs; Z99.81 Dependence on supplemental oxygen
CPT/HCPCS: 36415; 80053; 83690; 86850; 86900; 86901; 93005; 96365; 99285; 71046; 74176; 81003; 81015; 83735; 84484; 85025; 93010; 99284

== ENCOUNTER 2023-12-11 15:23 | Emergency (ER) | payer MEDICARE, BC, SELFPAY ==
[2023-12-11] VITALS (71 sets, daily range): BP systolic 95–153; BP diastolic 33–97; PULSE 64–86; RESP 16–34; TEMP 36.3–36.6; O2SAT 83–99
--- NOTE | 2023-12-11 17:00 | RT.EKG_ITS ---
APPROVED REPORT Exam: Resting ECG Reason for Exam: dizziness Patient Location: E HR:72 bpm ECG Measurements Heart Rate 72 AXIS MT 163 P 74 QRSd 90 QRS 26 QT 390 T 116 QTc 426 Conclusion Sinus rhythm...normal P axis, V-rate 60- 99 Probable left atrial enlargement...P >50mS, <-0.10mV V1 Repol abnrm suggests ischemia, anterolateral...ST dep, T neg, I aVL V2-V6 Compared to prior EKG performed on 12/09/2023 at 07:30.
--- NOTE | 2023-12-11 17:00 | W.ED.GENAD ---
Discharge Plan Disposition Patient Disposition: Transfer-Acute Inpatient Care Specific Acute Inpt Facility: [facility] Condition: Stable Discharge Details Chief Complaint: GenMedical Clinical Impression: Non-ST elevation (NSTEMI) myocardial infarction Primary Care Provider: Janina Calloway ED Provider: Edmund Morrow Home Meds and New Rx's Prescriptions: No Action montelukast 10 mg tablet 10 mg PO DAILY insulin glargine [Lantus Solostar U-100 Insulin] 100 unit/mL (3 mL) insulin pen See Rx Instructions subcut BID Rx Instructions: 20 Units daily--pt instructed to increase by 2 units every 3 days if fasting BG consistently >150. Decrease 2 units if fasting BG consistently <90--[facility] Endo Note 06/12/23 fluticasone propionate 50 mcg/actuation spray,suspension 2 spray intranasal DAILY Qty: 16 0RF Rx Instructions: administer into each nostril prednisone 20 mg tablet 40 mg PO DAILY AM Qty: 10 0RF Rx Instructions: COPD exacerbation -- take with food nitroglycerin 0.4 mg tablet, sublingual 0.4 mg sublingual Q5M PRN (Reason: chest pain) Qty: 30 6RF Rx Instructions: do not exceed 3 doses per episode (DME) lancets [Sure Comfort Lancets] 28 gauge misc 1 ea Miscellaneous DAILY Qty: 100 3RF Rx Instructions: Dx: E11.9 to maintain HbA1C less than 7% albuterol 90 mcg/actuation aerosol 90 mcg inhalation Q4H PRN Stiolto Respimat 2.5-2.5 mcg/actuation mist 2 puff inhalation DAILY Qty: 4 12RF desonide 0.05 % ointment 1 applic topical DAILY Qty: 15 3RF citalopram 10 mg tablet 20 mg PO QHS Qty: 60 1RF Rx Instructions: Trial, 10mg daily x 1 week Oxygen EACH NS At Night Qty: 2 0RF Patient Comments: 2 L at night and CPAP- patient states she wore these 11/10/17 multivitamin [Daily Multi-Vitamin] 1 EACH tablet 1 ea PO DAILY Patient Comments: patient states she took this roughly one week ago (DME) FreeStyle Basia 2 [place] Misc See Rx Instructions .ROUTE .MEDSUPPLY Qty: 1 0RF Rx Instructions: As directed Prolia 60 mg/mL syringe 60 mg subcut [id number] letrozole 2.5 mg tablet 2.5 mg PO DAILY Rx Instructions: 09/22/21 Hem/Onc prescribes. fluocinolone 0.01 % solution 1 applic topical BID (DME) Blood Glucose Test Strip See Rx Instructions .ROUTE .MEDSUPPLY Qty: 250 1RF Rx Instructions: As directed to check blood glucose three times daily. On insulin. Dispense covered brand (Freestyle Lite) fiber supplements 1 tab PO DAILY magnesium oxide 400 mg (241.3 mg magnesium) tablet See Rx Instructions PO .COMPLEX Qty: 180 3RF Rx Instructions: 400 mg AM and PM as per María Mendoza cetirizine 10 mg tablet 10 mg PO DAILY Qty: 90 3RF Jardiance 25 mg tablet 25 mg PO DAILY AM Qty: 90 3RF Rx Instructions: Administer once daily in the morning, with or without food sucralfate [Carafate] 1 gram tablet 1 g PO QACHS Qty: 60 0RF (DME) FreeStyle Basia 2 Sensor Kit See Rx Instructions .ROUTE .MEDSUPPLY Qty: 6 3RF Rx Instructions: As directed hydrochlorothiazide 25 mg tablet 25 mg PO DAILY AM Qty: 90 3RF clotrimazole 10 mg jihan 10 mg mucous membrane ONCE Qty: 30 4RF Rx Instructions: Use valsartan 160 mg tablet 160 mg PO DAILY Qty: 90 3RF calcium citrate 200 mg (950 mg) tablet 200 mg PO BID Qty: 180 3RF Trulicity 0.75 mg/0.5 mL pen injector 1.5 mg subcut QWEEK Rx Instructions: 0.75mg weekly for 4 weeks--[facility] Endo Note 06/12/23 increased 1.5mg weekly 07/17/23 [facility] Endo Note insulin lispro [Humalog KwikPen Insulin] 100 unit/mL insulin pen 12 unit subcut TID Patient Comments: 18 Units with meals--[facility] Endo Note 06/12/23 12 Units with meals--[facility] Endo Note 07/17/23 rosuvastatin 40 mg tablet See Rx Instructions .ROUTE .COMPLEX Qty: 90 3RF Hold Instructions: Home Medication placed on hold at Doctor's office Dose Instruction: TAKE ONE TABLET BY MOUTH EVERY DAY Rx Instructions: TAKE ONE TABLET BY MOUTH EVERY DAY (DME) pen needle, diabetic [BD Marina 2nd Gen Pen Needle] 32 gauge x 5/32 needle See Rx Instructions .ROUTE .COMPLEX Qty: 400 3RF Dose Instruction: USE FOUR TIMES A DAY Rx Instructions: USE FOUR TIMES A DAY albuterol sulfate 2.5 mg /3 mL (0.083 %) solution for nebulization 2.5 mg inhalation Q4H PRN (Reason: shortness of breath or wheezing) Qty: 75 0RF metoprolol succinate 50 mg tablet extended release 24 hr See Rx Instructions .ROUTE .COMPLEX Qty: 90 3RF Dose Instruction: TAKE ONE TABLET BY MOUTH EVERY DAY Rx Instructions: TAKE ONE TABLET BY MOUTH EVERY DAY pantoprazole 40 mg tablet,delayed release (DR/EC) See Rx Instructions .ROUTE .COMPLEX Qty: 60 3RF Dose Instruction: TAKE ONE TABLET BY MOUTH EVERY DAY Rx Instructions: TAKE ONE TABLET BY MOUTH EVERY DAY metformin 500 mg tablet See Rx Instructions .ROUTE .COMPLEX Qty: 180 3RF Hold Instructions: Changed by Provider Dose Instruction: TAKE ONE TABLET BY MOUTH TWICE A DAY Rx Instructions: TAKE ONE TABLET BY MOUTH TWICE A DAY tramadol 50 mg tablet 50 mg PO TID PRN (Reason: pain) Qty: 12 0RF fluconazole 50 mg tablet See Rx Instructions .ROUTE .COMPLEX Qty: 5 0RF Rx Instructions: 150mg on day one and 75mg on day 3 if not improved aspirin [Adult Aspirin Regimen] 81 mg tablet,delayed release (DR/EC) 81 mg PO DAILY doxycycline hyclate 100 mg tablet 100 mg PO BID 10 Days Qty: 20 0RF famotidine 40 mg tablet 20 mg PO DAILY Qty: 60 0RF HPI General Date/Time Provider Initiated Documentation: 12/11/23 15:45. HPI Narrative: 73 year-old female presents to ED today by POV/ambulating with her with a chief complaint of dizziness, continued coughing after being seen yesterday with diagnosis of PNA, recent colonscopy/endoscopy on November 11 at [facility]- has felt lousy since, and some back pain in her R lumbar paraspinal area with onset since her EGD/colonoscopy. Quality described as dizziness that caused her to fall and hit her headboard without LOC/nausea/vomiting/confusion, continued coughing with PNA diagnosis on doxycycline, using her home O2, endorses some black stools, no radiation to chest pain, syncope, hemoptysis, bloody diarrhea, inability to tolerate PO intake, confusion. Severity is described as 8/10. Palliating factors include nothing specific- adherent to medications. Provoking factors include states she was taken off iron supplements in the setting of chronic iron-deficiency anemia. Patient not anticoagulated. Related Data Home Medications Medication Instructions Recorded Confirmed multivitamin (Daily Multi-Vitamin 1 ea PO DAILY 03/19/17 12/11/23 tablet) flash glucose scanning reader #1 ea 05/04/21 12/11/23 (FreeStyle Basia 2 [place]) denosumab 60 mg/mL subcutaneous 60 mg subcut [id number] 09/25/21 12/11/23 syringe (Prolia) letrozole 2.5 mg tablet 2.5 mg PO DAILY 09/25/21 12/11/23 fluocinolone 0.01 % topical 1 applic topical BID Itchy scalp 04/11/22 12/11/23 solution blood sugar diagnostic (Blood #250 ea 04/12/22 12/11/23 Glucose Test strips) fiber supplements 1 tab PO DAILY 05/23/22 12/11/23 cetirizine 10 mg tablet 10 mg PO DAILY #90 tabs 12/31/22 12/11/23 magnesium oxide 400 mg (241.3 mg See Rx Instructions PO .COMPLEX 12/31/22 12/11/23 magnesium) tablet low magnesium level #180 tab-caps empagliflozin 25 mg tablet 25 mg PO DAILY AM #90 tab-caps 02/11/23 12/11/23 (Jardiance) nitroglycerin 0.4 mg sublingual 0.4 mg sublingual Q5M PRN chest 02/14/23 12/11/23 tablet pain #30 tabs sucralfate 1 gram tablet (Carafate) 1 g PO QACHS #60 tabs 02/27/23 12/11/23 lancets 28 gauge (Sure Comfort #100 ea 03/20/23 12/11/23 Lancets) tramadol 50 mg tablet 50 mg PO TID PRN pain #12 tabs 03/20/23 12/11/23 flash glucose sensor (FreeStyle #6 ea 03/25/23 12/11/23 Basia 2 Sensor kit) albuterol 90 mcg/actuation aerosol 90 mcg inhalation Q4H PRN 03/27/23 12/11/23 inhaler hydrochlorothiazide 25 mg tablet 25 mg PO DAILY AM #90 tab-caps 03/28/23 12/11/23 tiotropium 2.5 mcg-olodaterol 2.5 2 puff inhalation DAILY #4 grams 03/29/23 12/11/23 mcg/actuation mist for inhalation (Stiolto Respimat) insulin glargine 100 unit/mL (3 See Rx Instructions subcut BID Dx: 06/14/23 12/11/23 mL) subcutaneous pen (Lantus E11.9 to maintain HbA1c less than Solostar U-100 Insulin) 7% montelukast 10 mg tablet 10 mg PO DAILY 06/18/23 12/11/23 clotrimazole 10 mg jihan 10 mg mucous membrane ONCE #30 tabs 07/08/23 12/11/23 calcium citrate 200 mg (950 mg) 200 mg PO BID #180 tabs 07/15/23 12/11/23 tablet valsartan 160 mg tablet 160 mg PO DAILY #90 tabs 07/15/23 12/11/23 dulaglutide 0.75 mg/0.5 mL 1.5 mg subcut QWEEK 07/18/23 12/11/23 subcutaneous pen injector (Trulicity) insulin lispro 100 unit/mL 12 unit subcut TID high blood sugar 07/18/23 12/11/23 subcutaneous pen (Humalog KwikPen (U-100) Insulin) rosuvastatin 40 mg tablet See Rx Instructions .Route 08/12/23 12/11/23 .COMPLEX #90 tabs desonide 0.05 % topical ointment 1 applic topical DAILY forehead 08/19/23 12/11/23 daily for up to 5 days #15 grams fluconazole 50 mg tablet See Rx Instructions .Route 08/24/23 12/11/23 .COMPLEX #5 tabs pen needle, diabetic 32 gauge x #400 ea 08/28/23 12/11/23 (BD Marina 2nd Gen Pen Needle) fluticasone propionate 50 2 spray intranasal DAILY #16 grams 08/29/23 12/11/23 mcg/actuation nasal spray,suspension famotidine 40 mg tablet 20 mg (1/2 x 40 mg) PO DAILY #60 09/19/23 12/11/23 tabs albuterol sulfate 2.5 mg/3 mL 2.5 mg (3 mL) inhalation Q4H PRN 10/01/23 12/11/23 (0.083 %) solution for nebulization shortness of breath or wheezing #75 mL metoprolol succinate 50 mg See Rx Instructions .Route 10/07/23 12/11/23 tablet,extended release 24 hr .COMPLEX #90 tabs pantoprazole 40 mg tablet,delayed See Rx Instructions .Route 10/07/23 12/11/23 release .COMPLEX #60 tabs prednisone 20 mg tablet 40 mg (2 x 20 mg) PO DAILY AM #10 11/20/23 12/11/23 tabs citalopram 10 mg tablet 20 mg (2 x 10 mg) PO QHS #60 tabs 12/06/23 12/11/23 aspirin 81 mg tablet,delayed 81 mg PO DAILY 12/09/23 12/11/23 release (Adult Aspirin Regimen) doxycycline hyclate 100 mg tablet 100 mg PO BID 10 days #20 tabs 12/09/23 12/11/23 metformin 500 mg tablet See Rx Instructions .Route 12/09/23 12/11/23 .COMPLEX #180 tabs Previous Rx's Medication Instructions Recorded flash glucose scanning reader #1 ea 05/04/21 (FreeStyle Basia 2 [place]) blood sugar diagnostic (Blood #250 ea 04/12/22 Glucose Test strips) cetirizine 10 mg tablet 10 mg PO DAILY #90 tabs 12/31/22 magnesium oxide 400 mg (241.3 mg See Rx Instructions PO .COMPLEX 12/31/22 magnesium) tablet low magnesium level #180 tab-caps empagliflozin 25 mg tablet 25 mg PO DAILY AM #90 tab-caps 02/11/23 (Jardiance) nitroglycerin 0.4 mg sublingual 0.4 mg sublingual Q5M PRN chest 02/14/23 tablet pain #30 tabs sucralfate 1 gram tablet (Carafate) 1 g PO QACHS #60 tabs 02/27/23 lancets 28 gauge (Sure Comfort #100 ea 03/20/23 Lancets) tramadol 50 mg tablet 50 mg PO TID PRN pain #12 tabs 03/20/23 flash glucose sensor (FreeStyle #6 ea 03/25/23 Basia 2 Sensor kit) hydrochlorothiazide 25 mg tablet 25 mg PO DAILY AM #90 tab-caps 03/28/23 tiotropium 2.5 mcg-olodaterol 2.5 2 puff inhalation DAILY #4 grams 03/29/23 mcg/actuation mist for inhalation (Stiolto Respimat) clotrimazole 10 mg jihan 10 mg mucous membrane ONCE #30 tabs 07/08/23 calcium citrate 200 mg (950 mg) 200 mg PO BID #180 tabs 07/15/23 tablet valsartan 160 mg tablet 160 mg PO DAILY #90 tabs 07/15/23 rosuvastatin 40 mg tablet See Rx Instructions .Route 08/12/23 .COMPLEX #90 tabs desonide 0.05 % topical ointment 1 applic topical DAILY forehead 08/19/23 daily for up to 5 days #15 grams fluconazole 50 mg tablet See Rx Instructions .Route 08/24/23 .COMPLEX #5 tabs pen needle, diabetic 32 gauge x #400 ea 08/28/23 (BD Marina 2nd Gen Pen Needle) fluticasone propionate 50 2 spray intranasal DAILY #16 grams 08/29/23 mcg/actuation nasal spray,suspension famotidine 40 mg tablet 20 mg (1/2 x 40 mg) PO DAILY #60 09/19/23 tabs albuterol sulfate 2.5 mg/3 mL 2.5 mg (3 mL) inhalation Q4H PRN 10/01/23 (0.083 %) solution for nebulization shortness of breath or wheezing #75 mL metoprolol succinate 50 mg See Rx Instructions .Route 10/07/23 tablet,extended release 24 hr .COMPLEX #90 tabs pantoprazole 40 mg tablet,delayed See Rx Instructions .Route 10/07/23 release .COMPLEX #60 tabs prednisone 20 mg tablet 40 mg (2 x 20 mg) PO DAILY AM #10 11/20/23 tabs citalopram 10 mg tablet 20 mg (2 x 10 mg) PO QHS #60 tabs 12/06/23 doxycycline hyclate 100 mg tablet 100 mg PO BID 10 days #20 tabs 12/09/23 metformin 500 mg tablet See Rx Instructions .Route 12/09/23 .COMPLEX #180 tabs Allergies Allergy/AdvReac Type Severity Reaction Status Date / Time propylene glycol Allergy Severe Rash Verified 12/09/23 07:56 anastrozole Allergy Intermediate unknown Verified 12/09/23 07:56 petrolatum,white Allergy Intermediate rash Verified 12/09/23 07:56 [From Petroleum Jelly] adhesive tape Allergy Unknown Skin Rash Verified 12/09/23 07:56 alendronate sodium Allergy Unknown Hives Verified 12/09/23 07:56 azithromycin AdvReac Intermediate dry heaves Verified 12/09/23 07:56 and diarrhea hydrocodone bitartrate AdvReac Intermediate Nausea Verified 12/09/23 07:56 [From Vicodin] liraglutide [From Victoza] AdvReac Intermediate diarhhea Verified 12/09/23 07:56 lorazepam [From Ativan] AdvReac Intermediate felt Verified 12/09/23 07:56 crazy paraben AdvReac Intermediate Skin Rash Verified 12/09/23 07:56 quaternium 15 AdvReac Intermediate generalized Verified 12/09/23 07:56 rash roflumilast AdvReac Intermediate Diarrhea Verified 12/09/23 07:56 zolpidem [From Ambien] AdvReac Intermediate confusion Verified 12/09/23 07:56 LANDON Inhibitors AdvReac Unknown COUGH,DYSPN Verified 12/09/23 07:56 EA oxycodone HCl [From Percocet] AdvReac Unknown NAUSEA/VOMI Verified 12/09/23 07:56 TING Benzodiazepines AdvReac Visual Verified 12/09/23 07:56 Disturbances fragranced creams Allergy Intermediate Skin Rash Uncoded 12/09/23 07:56 parabin wax Allergy Intermediate Skin Rash Uncoded 12/09/23 07:56 diogolidinyl AdvReac Severe Skin Rash Uncoded 12/09/23 07:56 bisphenal AdvReac Intermediate Skin Rash Uncoded 12/09/23 07:56 General Stated Complaint: GenMedical BRUNA: 3 Review of Systems All systems reviewed & are unremarkable except as noted in HPI and below Exam Narrative Exam Narrative: GENERAL APPEARANCE: Well-nourished, non-toxic, awake and alert, atraumatic, no acute distress. SKIN: Warm, pink, dry, intact, without rashes/lesions/ulcerations. HEAD: Normocephalic, atraumatic, normal hair distribution for gender/age. EYES: Pupils PERRLA, EOMs intact without nystagmus, normal conjunctiva, no exudates on lids/lashes. ENT: Nares patent, no circumoral cyanosis, no facial swelling NECK: Supple, trachea midline, painless cervical ROM. LUNGS/CHEST: Lungs - L basal rhonchi, no wheezing, non-labored respirations, normal A/P diameter, symmetrical expansion, no chest wall deformity HEART (CV/PV): Regular rate and rhythm without murmur, no peripheral edema, no JVD. ABDOMEN: Soft, non-distended, no guarding, no tenderness. MSK: Normal ROM, no swelling/deformity to bilateral UEs or LEs, moving all extremities without weakness, no cyanosis, spine midline without tenderness, normal curvature, R paraspinal lumbar tenderness without midline crepitus/step-offs, NV intact R LE, passive SLR causes lumbar pain consistent with sciatica NEURO: Mental Status AAOx4 - alert to person, place, time, events No facial droop, no forehead involvement. Motor: No focal weakness - strength 5/5 in bilateral UEs and LEs, proximal and distal, symmetric. Sensory: sensation intact to light touch globally. Gait NT PSYCH: euthymic, cooperative, pleasant, appropriate speech Course Vital Signs Vital signs: Vital Signs Temperature 36.3 C L 12/11/23 15:27 Pulse 86 12/11/23 15:27 Respiratory Rate 18 12/11/23 15:27 Blood Pressure 145/43 H 12/11/23 15:27 Pulse Oximetry 98 12/11/23 15:27 Temperature 36.3 C L 12/11/23 15:27 Temperature Source Temporal Artery Scan 12/11/23 15:27 Pulse 86 12/11/23 15:27 Respiratory Rate 18 12/11/23 15:27 Blood Pressure 145/43 H 12/11/23 15:27 Blood Pressure Position Sitting 12/11/23 15:27 Pulse Oximetry 94 12/11/23 16:41 Oxygen Delivery Method Nasal Cannula 12/11/23 16:41 Oxygen Flow Rate 3 12/11/23 16:41 Pain Level 9 12/11/23 15:27 Medical Decision Making This dictation utilizes [id number] dictation software and may contain unedited grammatical errors. 73 y/o F presents to ED today with a chief complaint of dizziness, weakness, continued cough with PNA diagnosis yesterday, with some R lumbar back pain- all this started with an EGD/colonoscopy on 11/11 at [facility] and has felt lousy since. Patient is on doxycycline for PNA. Patient states she got up earlier and got so dizzy she fell back toward the bed and struck her forehead on headboard- denies concussive symptoms like nausea/vomiting/confusion/headache. Patients' medical history: History of breast cancer, history of pericarditis, tobacco use disorder, iron deficiency anemia, chronic GI bleeding, adhesive capsulitis of left shoulder, AV malformation, insulin-dependent T2DM, chronic respiratory failure, hypertension, history of NSTEMI, CKD. Family and social history: noncontributory. Pertinent exam findings / vital signs include R lumbar paraspinal tenderness without vertebral abnormality, rhonchi L lung base, benign abdomen, neuro intact, no respiratory distress. Differential / pathologies of concern include Anemia, Weakness, Debility, Pneumonia, GI Bleeding, Sciatica. Diagnostic studies of: CBC, CMP, lactate, lipase, magnesium, procalcitonin, x-ray chest, EKG, Trop I (w/ delta), BNP -CBC shows no leukocytosis, profound anemia falling HgB 8.7 > 7.9 in 24 hrs. -CMP shows SCr 1.6, otherwise benign -PT/INR 1.0, PTT WNL -Lipase WNL -Lactate neg -Procalcitonin negative -CXR shows worsening PNA, patient is on doxycyline- adherent -EKG shows sinus rhythm at 72 bpm with slightly prolonged OR interval, P waves followed by narrow complex QRS with normal axis, submillimeter ST depression in aVL, no reciprocal ST elevations, ST depressions in V4 5 and 6, poor R wave progression, normal QT QTc -Repeat EKG shows decreasing depressions but still present. -Reflexed to Trop & BNP, initial trop 737, trending upward to 850, BNP acute elevation to 5000 without evidence of volume overload Interventions of: -[facility] Cardiology Consult - give pRBCs if needed, institute ACS protocol if trending upward, transfer to definitive care- they have no capacity. Consulted with [facility] after multiple other facilities were full- Patient accepted ED to ED with accepting physician as Dr. Allie Sumner. -Given 324 ASA, given heparin ACS protocol, given 1 unit blood with HgB target > 8.0 ED Course/Assessment/Plan: 73-year-old female had a colonoscopy and upper endoscopy on November 11 at [facility], has felt lousy since, was diagnosed with pneumonia yesterday. Has been feeling worse but without acute chest pain, endorsing some right lumbar paraspinal pain that is consistent with sciatica with pain with passive SLR. The patient's initial troponin was quite high at 737 trending upward to 850 likely more than just demand ischemia at this point, the patient has no rales at the bases of her lungs, has rhonchi consistent with pneumonia, no pedal edema to suggest acute CHF onset, patient is likely having an NSTEMI and was transferred to [facility] for definitive care for likely echo and stress followed by specific cardiology consult and interventions, the patient was comfortable throughout visit here, transferred to [facility]. Findings not consistent with STEMI, Acute CHF, Worsening Respiratory Failure, Sepsis. Disposition of Non-ST Elevation (NSTEMI) Myocardial Infarction. Patient verbalized understanding of the plan and return to ED criteria and engaged in shared decision making. Medical Records Medical records reviewed: Yes I reviewed the patient's medical records. Imaging Data Radiologic Study: Attestation: I personally reviewed and interpreted this imaging study as follows: Imaging: X-Ray Radiologist's impression: EXAM: XR CHEST 2V PA LATERAL CLINICAL HISTORY: PNA, not improving TECHNIQUE: 2D digital imaging was performed. Two views. COMPARISON: CR XR CHEST 2V PA LATERAL from 12/09/2023 FINDINGS: HEART: Normal size. Coronary artery stent. Aorta: Not dilated. PULMONARY VASCULATURE: Normal. LUNGS: Some interval increase in size of left lower lobe infiltrate. Patchy infiltrates also visible in the right lower lobe. Upper lobes are clear. PLEURAL SPACE: No pleural effusion or pneumothorax. BONE:Unremarkable for age. Soft tissues: Unremarkable. IMPRESSION: Bilateral lower lobe infiltrates with some interval worsening. Lab Data Lab results reviewed: Yes I reviewed the patient's lab results. Labs: 12/11/23 21:15 Blood Blood Culture - Pending Laboratory Tests Range/Units 12/11/23 12/11/23 12/11/23 17:33 18:23 20:22 WBC (4.4-10.8) 10^3/uL 5.80 RBC (3.93-5.22) 10^6/uL 2.62 L Hgb (11.2-15.7) g/dL 7.9 L Hct (36.0-46.0) % 25.5 L MCV (80-95) fL 97 H MCH (27.0-33.0) pg 30.2 MCHC (32.0-36.0) % 31.0 L RDW (11.7-14.6) % 15.8 H Plt Count (130-400) 10^3/uL 210 MPV (8.0-11.0) fL 9.3 Immature Gran % 1.4 Neutrophils % 70.2 Lymphocytes % 10.9 Monocytes % 15.3 Eosinophils % 1.9 Basophils % 0.3 Nucleated RBC % (0.0-0.3) % 0.0 Absolute Neutrophils (1.2-6.7) 10^3/uL 4.07 Absolute Lymphocytes (1.2-3.4) 10^3/uL 0.63 L Absolute Monocytes (0.1-0.8) 10^3/uL 0.89 H Absolute Eosinophils (0.0-0.7) 10^3/uL 0.11 Absolute Basophils (0.0-0.2) 10^3/uL 0.02 RBC Morphology See Below Polychromasia Present Hypochromasia 1+ PT (9.1-11.1) sec 10.2 INR (0.9-1.1) 1.0 APTT (23.6-32.8) sec 24.2 VBG Lactate (0.6-1.4) mmol/L 0.9 Sodium (136-145) mmol/L 136 Potassium (3.5-5.1) mmol/L 5.0 Chloride (98-107) mmol/L 97 L Carbon Dioxide (21.0-32.0) mmol/L 32.0 Anion Gap (3-11) mmol/L 7.0 BUN (7-18) mg/dL 38 H Creatinine (0.55-1.02) mg/dL 1.6 H Est GFR (CKD-EPI 2020) (mL/min/1.73m2) 33.63 Glucose (74-106) mg/dL 162 H Calcium (8.5-10.1) mg/dL 10.0 Magnesium (1.8-2.4) mg/dL 2.3 Total Bilirubin (0.2-1.0) mg/dL 0.3 AST (15-37) U/L 47 H ALT (14-59) U/L 58 Alkaline Phosphatase (46-116) U/L 52 Troponin I (< or =60) ng/L 737 H* 858 H* NT-Pro-B Natriuret Pep (<300) pg/mL 5129 H Total Protein (6.4-8.2) g/dL 7.7 Albumin (3.4-5.0) g/dL 2.8 L Lipase (16-77) U/L 49 Procalcitonin ng/mL < 0.1 Patient ABO/Rh A Positive Antibody Screen NEGATIVE Crossmatch See Detail Quality:SDOH Health Related Social Needs: No Data to Display PFSH All Active Problems (Updated 12/11/23 @ 23:32 by JONO Ribeiro) Non-ST elevation (NSTEMI) myocardial infarction (Acute) Pneumonia (Acute) Anxiety (Chronic) Adhesive capsulitis of left shoulder (Acute) Sepsis (Acute) Pneumonia (Acute ~09/2023) Acute hypoxemic respiratory failure (Acute) Kaylee rash of groin (Acute) Arteriovenous malformation (Acute ~06/2023) 06/27/23 Gastro Former smoker (Acute) Asymptomatic menopausal state (Acute) [facility] Endo Note 06/12/23 Type 2 diabetes mellitus with hyperglycemia, with long-term current use of insulin (Acute) [facility] Endo Note 06/12/23 Ductal carcinoma in situ (DCIS) of left breast (Acute) [facility] Hem/Onc note 06/05/23 Iron deficiency anemia secondary to blood loss (chronic) (Acute) 05/01/23 Hem/Onc GI bleed (Chronic) Demand ischemia (Acute) Chronic respiratory failure with hypoxia (Acute) Anemia (Chronic) Esophagitis determined by endoscopy (Acute ~12/2022) Compression fracture of L3 vertebra (Acute ~2021) Mucous cyst of digit of left hand (Acute ~12/2022) s/p excision of mucous cyst DOS: 01/08/23 Trigger finger, left middle finger (Acute) 40 mg Depo-Medrol injection: 11/12/2022 s/p trigger release DOS: 01/08/23 History of breast cancer (Acute) Dermatitis, seborrheic (Acute) 07/06/22 Dr Moreno Anemia, macrocytic (Acute) 05/03/22 Hem/Onc Note Essential hypertension (Acute 05/16/04) Microalbuminuria due to type 2 diabetes mellitus (Acute) Hyperlipidemia (Acute 07/17/07) Type 2 diabetes mellitus, with long-term current use of insulin (Acute ~1999) Renal artery stenosis, [place], bilateral (Chronic) [facility] [place] Vascular Surgery; most recent OV 06/01/21 Atherosclerosis of both carotid arteries (Chronic 11/12/16) [facility] [place] Vascular Surgery; most recent OV 06/01/21; Recommend annual carotid US COPD, very severe (Chronic) [facility] Pulm O2 dependent ASCVD (arteriosclerotic cardiovascular disease) (Chronic) [facility] 06/01/21 Vascular note: Asymptomatic bilateral carotid artery stenosis Non-ST elevation (NSTEMI) myocardial infarction (Acute ~12/2020) S/p proximal LCX stent placement 01/27/21 [facility] CKD (chronic kidney disease) (Chronic) Obstructive sleep apnea (Chronic 03/02/14) Bipap w/ 2L 02 09/06/2019 Medical History Esophageal thrush Allergic contact dermatitis due to other agents Malignant neoplasm of unspecified site of left female breast (~10/2021) 11/06/21 Dr Mcgill ([facility] Rad[facility]Onc [facility]); Radiation Therapy planned 12/21/21-hormone receptor positive Gross hematuria Vulvar irritation Breast cancer in female (~05/2021) R 2002, L 2003 s/p B/L partial mastectomy, XRT, & tamoxifen. 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) Estrogen receptor positive s/p RXT, surgical removal of tumor Enteritis Back pain Post-menopausal bleeding Pelvic pain Pericarditis (~12/2020) S/p NV Vaginitis and vulvovaginitis, unspecified Tobacco use disorder 30-50 PY, QUIT 1999 Compression fracture of lumbar vertebra (03/14/17) Depression (11/30/02) s/p of brother (on SSRI for short time) Solitary pulmonary nodule (12/22/15) Incidental finding of 6 mm pulm nodule RLL on 11/07/[address] with 6 month f/u chest CT recommended; 04/2016 6-month f/u chest CT: resolution of nodule Pneumonia Spinal stenosis (02/04/14) Multi level on MRI Reflux esophagitis (07/16/12) LA GRADE B , EGD W/ BX 05/04/15 Osteopenia (02/14/16) DEXA 02/14/16: Fem neck t-score -1.2 --> WHO FRAX major osteoporotic 13% & hip fx 1.3% risk --> does not qualify for bisphosphonates --> Ca & vit D 03/2017 L3 compression fx --> re-calc WHO FRAX major osteoporotic 21% & hip fx 2.3% risk --> now qualifies for bisphosphonate tx, started 03/2017 Probable allergic rxn to Alendronate (1st pill Wed, Hiv Th and stayed thru today (but no worsening), 07/05. Agree to STOP for now. Leg cramps (04/01/14) Low Mg+ --> supplementation helped, but caused diarrhea; handout on dietary Mg+ given Iron deficiency anemia (01/02/17) S/p colo & EGD 05/2015, then capsule endoscopy & push enteroscopy with no definitive etiology identified; 11/14/2017: repeat colonoscopy (due to return of anemia) showing a colonic angioectasia, which may have been source of bleeding & anemia (no overt bleeding found). Fe supplementation & monitor 10/29/22 Seen by [facility] Hem/Onc Intraabdominal calcification (11/14/15) Incidental finding on CT 2 mm between bladder and uterus, no further eval required, AOC Hypomagnesemia (03/04/17) Hiatal hernia (02/11/14) Smaller portions Endoscopy 10/04 anemia (nothing found), [facility] Heart murmur 07/11/2016 echo: mild-moderate mitral regurgitation DJD (degenerative joint disease) (02/04/14) Lumbar spine--multiple level on MRI Surgery 10/2011, [facility] Dr. 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/21/16 [facility] [place] Vascular Surgery consult: moderate stenosis, not source of clinical pathology, & no intervention or further evaluation indicated Anemia (02/11/14) Suspect chronic dz/bone marrow suppression s/p breast CA tx (radiation); s/p GI workup (possible AVMs?), NL B12/folate, elevated Epo, NL retic count; chronic iron supplementation Allergic rhinitis Superior mesenteric artery stenosis Chronic GI bleeding Headache Surgical History H/O colonoscopy (~11/02/22) 11/02/22 , 1 cecal polyp removed - f/u 10 years 11/12/23-[facility] H/O endoscopy (~06/21/22) 11/02/22 Upper GI endoscopy 11/12/23-[facility]-3 non-bleeding angioectasias-biopsies taken H/O partial mastectomy (~10/26/21) Left breast S/P breast biopsy, left (05/09/21) u/s guided Core Bx History of hysterectomy, supracervical Status post coronary artery stent placement (~01/27/21) H/O laminectomy (~10/06/12) L5S1 Dr. Jarrod Ballard H/O laminectomy L5S1 Tooth Extractions Multiple Oophrectomy, Right (~2007) For unknown reason Extraction of cataract left eye surgical removal with intraocular lens implant. Dr Agee Breast, Lumpectomy (~2003) B/L for breast CA Biopsy, Lymph Node (~2003) (L) axilla for breast CA Family History Sister Breast cancer Mother , 89 Alzheimer's dementia Breast cancer Father , AGE 75 Alcohol abuse Cirrhosis Sister Neoplasm uterine CA Sister Heart disease Brother Heart disease Niece Breast cancer Social History Smoking/Tobacco Use Status: Former Tobacco Use tobacco type: cigarettes Quit Date: 09/02/95 Tobacco: How many years used: 25 Smoking risk assessment performed?: Yes Alcohol Intake: former Details: none Drug use: Never Substance use type: does not use Adopted: No Caregiver/Support person: No Foster care: No Household members: spouse Housing: house Number of Children: 4 Communication Needs: None Pets and animals: No Current gender identity: female What type of physical activity do you participate in: regular exercise Duration: < 15 minutes/day Frequency: 3-4 times per week Mell/Episcopal: Lutheran Seatbelt use: always Drive 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
[2023-12-11 17:42] LABS: Abs Immature Grans 0.08 10^3/uL (0.0-0.06); Absolute Basophil Count 0.02 10^3/uL (0.0-0.2); Absolute Eosinophil Count 0.11 10^3/uL (0.0-0.7); Absolute Lymphocyte Count 0.63 10^3/uL (1.2-3.4); Absolute Monocyte Count 0.89 10^3/uL (0.1-0.8); Absolute Neutrophil Count 4.07 10^3/uL (1.2-6.7); Basophils % 0.3; Eosinophils % 1.9; HCT 25.5 % (36.0-46.0); HGB 7.9 g/dL (11.2-15.7); Immature Grans % 1.4; Lactate 0.9 mmol/L (0.6-1.4); Lymphocytes % 10.9; MCH 30.2 pg (27.0-33.0); MCV 97 fL (80-95); MPV 9.3 fL (8.0-11.0); Monocytes % 15.3; Neutrophils % 70.2; Platelet Count 210 10^3/uL (130-400); RBC 2.62 10^6/uL (3.93-5.22); RDW 15.8 % (11.7-14.6); RDW-SD 55.6 fL
[2023-12-11 17:55] LABS: Diff Comment RBC Morph Reviewed; Hypochromasia 1+; Polychromasia Present
[2023-12-11 17:59] LABS: ALT 58 U/L (14-59); AST 47 U/L (15-37); Albumin 2.8 g/dL (3.4-5.0); Alkaline Phosphatase 52 U/L (46-116); BUN 38 mg/dL (7-18); Bilirubin, Total 0.3 mg/dL (0.2-1.0); CREATININE 1.6 mg/dL (0.55-1.02); Chloride 97 mmol/L (98-107); Estimated GFR 33.63 (mL/min/1.73m2); Glucose 162 mg/dL (74-106); Lipase 49 U/L (16-77); Magnesium 2.3 mg/dL (1.8-2.4); Sodium 136 mmol/L (136-145); Total Protein 7.7 g/dL (6.4-8.2)
[2023-12-11 18:22] LABS: NT-proBNP 5129 pg/mL (<300)
[2023-12-11 18:25] LABS: Troponin I 737 ng/L (< or =60)
[2023-12-11 18:30] LABS: Procalcitonin < 0.1 ng/mL
[2023-12-11] MEDS: Aspirin 81 MG CHEW 324 MG CH (18:39)
--- NOTE | 2023-12-11 19:30 | RT.EKG_ITS ---
APPROVED REPORT Exam: Resting ECG Reason for Exam: ?NSTEMI Patient Location: E HR:69 bpm ECG Measurements Heart Rate 69 AXIS NE 159 P 74 QRSd 92 QRS 25 QT 398 T 114 QTc 425 Conclusion Sinus rhythm...normal P axis, V-rate 60- 99 Repol abnrm suggests ischemia, anterolateral...ST dep, T neg, I aVL V2-V6 There are no significant changes compared to prior EKG performed on 12/11/2023 at 17:44.
[2023-12-11 20:47] LABS: Troponin I 858 ng/L (< or =60)
[2023-12-11 21:12] LABS: PTT Activated 24.2 sec (23.6-32.8); Prothrombin Time 10.2 sec (9.1-11.1)
[2023-12-11] MEDS: Heparin in 0.45% NaCl 25,000 UNIT/250 ML BAG 8 UNIT IV (21:32)
[2023-12-11] MEDS: diphenhydrAMINE 25 MG CAP PO (23:23)
[2023-12-12] VITALS (7 sets, daily range): BP systolic 101–136; BP diastolic 33–102; PULSE 66–128; RESP 18–22; TEMP 37; O2SAT 97–100
--- NOTE | 2023-12-12 01:16 | NUR.NOTE ---
PT was transferred to [facility] ED. PT left facility at 0025. PTs blood and heparin continued to be infused by transport team in transit. Nursing Note:
--- NOTE | 2023-12-12 11:30 | NUR.NOTE ---
Accessed Pt chart to see where Pt was transferred to. [facility] called looking for the PT. After calling [place] and then returning the call to [place], the Pt was located and had skipped the ER and went directly to a room.
== END 2023-12-12 00:39 | disposition short-term general hospital (02) ==
PROVIDERS: Emergency Provider Physician Assistant; PCP Nurse Practitioner
DX: I21.4 Non-ST elevation (NSTEMI) myocardial infarction (principal); J18.9 Pneumonia, unspecified organism; Z98.890 Other specified postprocedural states; I12.9 Hypertensive chronic kidney disease with stage 1 through stage 4 chronic kidney disease, or unspecified chronic kidney disease; E11.22 Type 2 diabetes mellitus with diabetic chronic kidney disease; N18.9 Chronic kidney disease, unspecified; Z79.4 Long term (current) use of insulin; I25.2 Old myocardial infarction
CPT/HCPCS: 36415; 36430; 80053; 83690; 84145; 86850; 86900; 86901; 86920; 87040; 93005; 96365; 96366; 96376; 99285; 71046; 83605; 83735; 83880; 84484; 85025; 85610; 85730; 93010; J1644; P9016

== ENCOUNTER 2023-12-18 08:14 | Observation (INO) | payer MEDICARE, BC, SELFPAY ==
[2023-12-18] VITALS (68 sets, daily range): BP systolic 90–153; BP diastolic 22–76; PULSE 67–95; RESP 5–28; TEMP 36.3–37.3; O2SAT 88–98
--- NOTE | 2023-12-18 08:00 | RT.EKG_ITS ---
APPROVED REPORT Exam: Resting ECG Reason for Exam: weakness, recent stent placement Patient Location: E HR:85 bpm ECG Measurements Heart Rate 85 AXIS NM 154 P 83 QRSd 76 QRS 40 QT 350 T 84 QTc 417 Conclusion Sinus rhythm...normal P axis, V-rate 60- 99 Physician: no stemi, notable improvment from prior ekg
--- NOTE | 2023-12-18 08:28 | W.ED.GENAD ---
Discharge Plan Disposition Patient Disposition: Admit to [facility] Discharge Details Clinical Impression: GI bleed, Anemia Admit Date/Time: 12/18/23 10:44 Admit Provider: Efren Barros Attending Provider: Efren Barros Primary Care Provider: Janina Calloway ED Provider: Dottie Jolley HPI General Date/Time Provider Initiated Documentation: 12/18/23 08:19. HPI Narrative: Nahed is a 73-year-old female with history of stent placement on 12/12/23 s/p NSTEMI, T2DM, COPD on O2 (3L via NC) who presents to the emergency department today for evaluation of sudden onset of generalized fatigue and shortness of breath starting at 2:30 AM. She reports this has been accompanied by lightheadedness and nausea. Symptoms have slightly improved since EMS arrived. She said she felt this way with both her overnight O2 and daytime O2 machines. She says this is similar to when she had AK both times. She denies recent fever/chills, congestion, cough, chest pain, palpitations, vomiting, abdominal pain, change in bowel or bladder function other than constipation, black/tarry stools, pedal edema. Blood sugars have been well-controlled, she has a continuous glucose monitor. She was discharged from [facility] on 12/13/2023, says she was treated for PNA while hospitalized but is not currently taking abx. Related Data Home Medications Medication Instructions Recorded Confirmed multivitamin (Daily Multi-Vitamin 1 ea PO DAILY 03/19/17 12/18/23 tablet) flash glucose scanning reader #1 ea 05/04/21 12/18/23 (FreeStyle Basia 2 Sheridan) denosumab 60 mg/mL subcutaneous 60 mg subcut [id number] 09/25/21 12/18/23 syringe (Prolia) letrozole 2.5 mg tablet 2.5 mg PO DAILY 09/25/21 12/18/23 fluocinolone 0.01 % topical 1 applic topical BID Itchy scalp 04/11/22 12/18/23 solution blood sugar diagnostic (Blood #250 ea 04/12/22 12/18/23 Glucose Test strips) fiber supplements 1 tab PO DAILY 05/23/22 12/18/23 cetirizine 10 mg tablet 10 mg PO DAILY #90 tabs 12/31/22 12/18/23 magnesium oxide 400 mg (241.3 mg See Rx Instructions PO .COMPLEX 12/31/22 12/18/23 magnesium) tablet low magnesium level #180 tab-caps nitroglycerin 0.4 mg sublingual 0.4 mg sublingual Q5M PRN chest 02/14/23 12/18/23 tablet pain #30 tabs sucralfate 1 gram tablet (Carafate) 1 g PO QACHS #60 tabs 02/27/23 12/18/23 lancets 28 gauge (Sure Comfort #100 ea 03/20/23 12/18/23 Lancets) flash glucose sensor (FreeStyle #6 ea 03/25/23 12/18/23 Basia 2 Sensor kit) hydrochlorothiazide 25 mg tablet 25 mg PO DAILY AM #90 tab-caps 03/28/23 12/18/23 tiotropium 2.5 mcg-olodaterol 2.5 2 puff inhalation DAILY #4 grams 03/29/23 12/18/23 mcg/actuation mist for inhalation (Stiolto Respimat) insulin glargine 100 unit/mL (3 See Rx Instructions subcut BID Dx: 06/14/23 12/18/23 mL) subcutaneous pen (Lantus E11.9 to maintain HbA1c less than Solostar U-100 Insulin) 7% montelukast 10 mg tablet 10 mg PO DAILY 06/18/23 12/18/23 valsartan 160 mg tablet 160 mg PO DAILY #90 tabs 07/15/23 12/18/23 dulaglutide 0.75 mg/0.5 mL 1.5 mg subcut QWEEK 07/18/23 12/18/23 subcutaneous pen injector (Trulicity) insulin lispro 100 unit/mL 12 unit subcut TID high blood sugar 07/18/23 12/18/23 subcutaneous pen (Humalog KwikPen (U-100) Insulin) rosuvastatin 40 mg tablet See Rx Instructions .Route 08/12/23 12/18/23 .COMPLEX #90 tabs pen needle, diabetic 32 gauge x #400 ea 08/28/23 12/18/23 5/32 (BD Marina 2nd Gen Pen Needle) fluticasone propionate 50 2 spray intranasal DAILY #16 grams 08/29/23 12/18/23 mcg/actuation nasal spray,suspension famotidine 40 mg tablet 20 mg (1/2 x 40 mg) PO DAILY #60 09/19/23 12/18/23 tabs albuterol sulfate 2.5 mg/3 mL 2.5 mg (3 mL) inhalation Q4H PRN 10/01/23 12/18/23 (0.083 %) solution for nebulization shortness of breath or wheezing #75 mL metoprolol succinate 50 mg See Rx Instructions .Route 10/07/23 12/18/23 tablet,extended release 24 hr .COMPLEX #90 tabs pantoprazole 40 mg tablet,delayed See Rx Instructions .Route 10/07/23 12/18/23 release .COMPLEX #60 tabs citalopram 10 mg tablet 20 mg (2 x 10 mg) PO QHS #60 tabs 12/06/23 12/18/23 aspirin 81 mg tablet,delayed 81 mg PO DAILY 12/09/23 12/18/23 release (Adult Aspirin Regimen) metformin 500 mg tablet See Rx Instructions .Route 12/09/23 12/18/23 .COMPLEX #180 tabs albuterol sulfate 90 mcg/actuation 2 puff inhalation Q6H PRN 12/16/23 12/18/23 aerosol inhaler shortness of breath or wheezing #8.5 grams clopidogrel 75 mg tablet 75 mg PO DAILY 12/17/23 12/18/23 clotrimazole 10 mg jihan 10 mg mucous membrane ONCE 12/17/23 12/18/23 empagliflozin 25 mg tablet 25 mg PO DAILY 12/17/23 12/18/23 (Jardiance) multivitamin with minerals-folic 1 tab PO DAILY 12/18/23 12/18/23 acid 12 mcg chewable tablet (Centrum Adults) Previous Rx's Medication Instructions Recorded flash glucose scanning reader #1 ea 05/04/21 (FreeStyle Basia 2 Sheridan) blood sugar diagnostic (Blood #250 ea 04/12/22 Glucose Test strips) cetirizine 10 mg tablet 10 mg PO DAILY #90 tabs 12/31/22 magnesium oxide 400 mg (241.3 mg See Rx Instructions PO .COMPLEX 12/31/22 magnesium) tablet low magnesium level #180 tab-caps nitroglycerin 0.4 mg sublingual 0.4 mg sublingual Q5M PRN chest 02/14/23 tablet pain #30 tabs sucralfate 1 gram tablet (Carafate) 1 g PO QACHS #60 tabs 02/27/23 lancets 28 gauge (Sure Comfort #100 ea 03/20/23 Lancets) flash glucose sensor (FreeStyle #6 ea 03/25/23 Basia 2 Sensor kit) hydrochlorothiazide 25 mg tablet 25 mg PO DAILY AM #90 tab-caps 03/28/23 tiotropium 2.5 mcg-olodaterol 2.5 2 puff inhalation DAILY #4 grams 03/29/23 mcg/actuation mist for inhalation (Stiolto Respimat) valsartan 160 mg tablet 160 mg PO DAILY #90 tabs 07/15/23 rosuvastatin 40 mg tablet See Rx Instructions .Route 08/12/23 .COMPLEX #90 tabs pen needle, diabetic 32 gauge x #400 ea 08/28/23 (BD Mairna 2nd Gen Pen Needle) fluticasone propionate 50 2 spray intranasal DAILY #16 grams 08/29/23 mcg/actuation nasal spray,suspension famotidine 40 mg tablet 20 mg (1/2 x 40 mg) PO DAILY #60 09/19/23 tabs albuterol sulfate 2.5 mg/3 mL 2.5 mg (3 mL) inhalation Q4H PRN 10/01/23 (0.083 %) solution for nebulization shortness of breath or wheezing #75 mL metoprolol succinate 50 mg See Rx Instructions .Route 10/07/23 tablet,extended release 24 hr .COMPLEX #90 tabs pantoprazole 40 mg tablet,delayed See Rx Instructions .Route 10/07/23 release .COMPLEX #60 tabs citalopram 10 mg tablet 20 mg (2 x 10 mg) PO QHS #60 tabs 12/06/23 metformin 500 mg tablet See Rx Instructions .Route 12/09/23 .COMPLEX #180 tabs albuterol sulfate 90 mcg/actuation 2 puff inhalation Q6H PRN 12/16/23 aerosol inhaler shortness of breath or wheezing #8.5 grams Allergies Allergy/AdvReac Type Severity Reaction Status Date / Time propylene glycol Allergy Severe Rash Verified 12/09/23 07:56 anastrozole Allergy Intermediate unknown Verified 12/09/23 07:56 petrolatum,white Allergy Intermediate rash Verified 12/09/23 07:56 [From Petroleum Jelly] adhesive tape Allergy Unknown Skin Rash Verified 12/09/23 07:56 alendronate sodium Allergy Unknown Hives Verified 12/09/23 07:56 azithromycin AdvReac Intermediate dry heaves Verified 12/09/23 07:56 and diarrhea hydrocodone bitartrate AdvReac Intermediate Nausea Verified 12/09/23 07:56 [From Vicodin] liraglutide [From Victoza] AdvReac Intermediate diarhhea Verified 12/09/23 07:56 lorazepam [From Ativan] AdvReac Intermediate felt Verified 12/09/23 07:56 crazy paraben AdvReac Intermediate Skin Rash Verified 12/09/23 07:56 quaternium 15 AdvReac Intermediate generalized Verified 12/09/23 07:56 rash roflumilast AdvReac Intermediate Diarrhea Verified 12/09/23 07:56 zolpidem [From Ambien] AdvReac Intermediate confusion Verified 12/09/23 07:56 LANDON Inhibitors AdvReac Unknown COUGH,DYSPN Verified 12/09/23 07:56 EA oxycodone HCl [From Percocet] AdvReac Unknown NAUSEA/VOMI Verified 12/09/23 07:56 TING Benzodiazepines AdvReac Visual Verified 12/09/23 07:56 Disturbances fragranced creams Allergy Intermediate Skin Rash Uncoded 12/09/23 07:56 parabin wax Allergy Intermediate Skin Rash Uncoded 12/09/23 07:56 diogolidinyl AdvReac Severe Skin Rash Uncoded 12/09/23 07:56 bisphenal AdvReac Intermediate Skin Rash Uncoded 12/09/23 07:56 General Stated Complaint: SOB BRUNA: 3 Review of Systems Narrative: see HPI Exam Const General: cooperative, comfortable and no acute distress Nutritional Appearance: average body habitus Other: appear pale HENMT Head: normal to inspection Ears: hearing grossly normal bilaterally General nose exam: external nose normal Eyes Conjunctivae: conjunctival abnormality (pallor) Resp Effort & Inspection: normal respiratory effort and able to speak in complete sentences Auscultation: diminished lung sounds Cardio Jugular venous pressure: no JVD Rate: regular rate Rhythm: regular rhythm GI Inspection: normal to inspection Palpation: soft, not firm and nontender Rectal Exam - female: visual inspection normal and heme positive stool Course Vital Signs Vital signs: Vital Signs Temperature 36.3 C L 12/18/23 08:15 Pulse 83 12/18/23 08:15 Respiratory Rate 20 12/18/23 08:15 Blood Pressure 116/29 L 12/18/23 08:15 Pulse Oximetry 92 12/18/23 08:15 Temperature 36.3 C L 12/18/23 08:20 Temperature Source Temporal Artery Scan 12/18/23 08:20 Pulse 83 12/18/23 08:20 Respiratory Rate 20 12/18/23 08:20 Respiratory Effort Short of Breath 12/18/23 08:21 Blood Pressure 116/29 L 12/18/23 08:20 Pulse Oximetry 92 12/18/23 08:20 Oxygen Delivery Method Nasal Cannula 12/18/23 08:20 Oxygen Flow Rate 3 12/18/23 08:20 Pain Level 0 12/18/23 08:20 Medical Decision Making Nahed is a 73-year-old female with history of stent placement on 12/12/23 s/p NSTEMI, T2DM, COPD on O2 (3L via NC) who presents to the emergency department today for evaluation of sudden onset of generalized fatigue and shortness of breath starting at 2:30 AM. She reports this has been accompanied by lightheadedness and nausea. Symptoms have slightly improved since EMS arrived. She said she felt this way with both her overnight O2 and daytime O2 machines. She says this is similar to when she had AK both times. She denies recent fever/chills, congestion, cough, chest pain, palpitations, vomiting, abdominal pain, change in bowel or bladder function other than constipation, black/tarry stools, pedal edema. Blood sugars have been well-controlled, she has a continuous glucose monitor. She was discharged from [facility] on 12/13/2023, says she was treated for PNA while hospitalized but is not currently taking abx. Physical exam reassuring. Patient is alert and interactive, no acute distress. Easy work of breathing, diminished lung sounds throughout. Normal heart sounds, regular rate and rhythm. Abdomen is soft, nondistended, nontender to palpation. No pedal edema. Significant conjunctival pallor. DDx includes but is not limited to ACS, treatment resistent PNA, COPD exacerbation, CHF, viral illness, severe anemia/GI bleed, malfunctioning O2 concentrator I independently interpreted the following tests: CBC significant for H&H 7.5 and 24.3. This is decreased from hemoglobin 10.3 on 12/12/2023 at discharge from [facility]. CMP unchanged from previous, only slightly elevated BUN of 39 compared to 33 on 12/12/2023. Troponin at discharge was 766, today 94 at initial troponin. Chest x-ray remarkable for bibasilar infiltrates, this was noted to be improved from previous per radiology. EKG reassuring, no changes consistent with acute ischemia. Unchanged T wave inversions in aVL. ST depressions in lateral leads resolved since previous. COVID/flu/RSV negative Upon arrival to the ED, Nahed received a duoneb with some improvement in shortness of breath and improved aeration throughout all lung cole. No wheezes auscultated. Reviewed findings and concerns with patient. Rectal exam performed with patient consent, positive Hemoccult. No obvious blood on finger. Will transfuse 1 unit packed red blood cells. Discussed case with Dr Tatum, general surgery. Pt is not eligible for endoscopy at [facility] so recently after stent placement and anticoagulation, however may consider admission for transfusion is hospitalist agreeable with plan. Discussed case with Dr Barros, hospitalist. Pt to be admitted to medical service. Quality:SDOH Health Related Social Needs: No Data to Display PFSH All Active Problems (Updated 12/18/23 @ 15:04 by Dottie Martin) Acute upper GI bleed (Acute) History of heart artery stent (Chronic) LAD Stent 12/13/2023 at [facility] in [facility] Non-ST elevation (NSTEMI) myocardial infarction (Acute) Pneumonia (Acute) Anxiety (Chronic) Adhesive capsulitis of left shoulder (Acute) Sepsis (Acute) Pneumonia (Acute ~09/2023) Acute hypoxemic respiratory failure (Acute) Kaylee rash of groin (Acute) Arteriovenous malformation (Acute ~06/2023) 06/27/23 Gastro Former smoker (Acute) Asymptomatic menopausal state (Acute) [facility] [place]12[place]23 Type 2 diabetes mellitus with hyperglycemia, with long-term current use of insulin (Acute) [facility] [place] 06/12/23 Ductal carcinoma in situ (DCIS) of left breast (Acute) [facility] [place] 06/05/23 Iron deficiency anemia secondary to blood loss (chronic) (Acute) 05/01/23 Hem/Onc GI bleed (Chronic) Demand ischemia (Acute) Chronic respiratory failure with hypoxia (Acute) Anemia (Chronic) Esophagitis determined by endoscopy (Acute ~12/2022) Compression fracture of L3 vertebra (Acute ~2021) Mucous cyst of digit of left hand (Acute ~12/2022) s/p excision of mucous cyst DOS: 01/08/23 Trigger finger, left middle finger (Acute) 40 mg Depo-Medrol injection: 11/12/2022 s/p trigger release DOS: 01/08/23 History of breast cancer (Acute) Dermatitis, seborrheic (Acute) 07/06/22 Dr Moreno Anemia, macrocytic (Acute) 05/03/22 Hem/Onc Note Essential hypertension (Acute 05/16/04) Microalbuminuria due to type 2 diabetes mellitus (Acute) Hyperlipidemia (Acute 03/18/07) Type 2 diabetes mellitus, with long-term current use of insulin (Acute ~1999) Renal artery stenosis, qawalangin, bilateral (Chronic) [facility] [place]; most recent OV 06/01/21 Atherosclerosis of both carotid arteries (Chronic 11/12/16) [facility] [place]; most recent OV 06/01/21; Recommend annual carotid US COPD, very severe (Chronic) [facility] Pulm O2 dependent ASCVD (arteriosclerotic cardiovascular disease) (Chronic) [facility] [place]21 Vascular note: Asymptomatic bilateral carotid artery stenosis Non-ST elevation (NSTEMI) myocardial infarction (Acute ~12/2020) S/p proximal LCX stent placement 01/27/21 [facility] [place] CKD (chronic kidney disease) (Chronic) Obstructive sleep apnea (Chronic 03/02/14) Bipap w/ 2L 02 09/06/2019 Medical History Esophageal thrush Allergic contact dermatitis due to other agents Malignant neoplasm of unspecified site of left female breast (~10/2021) 11/06/21 Dr Mcgill ([facility] Rad/Onc Office); Radiation Therapy planned 12/21/21-hormone receptor positive Gross hematuria Vulvar irritation Breast cancer in female (~05/2021) R 2002, L 2003 s/p B/L partial mastectomy, XRT, & tamoxifen. 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) Estrogen receptor positive s/p RXT, surgical removal of tumor Enteritis Back pain Post-menopausal bleeding Pelvic pain Pericarditis (~12/2020) S/p AK Vaginitis and vulvovaginitis, unspecified Tobacco use disorder 30-50 PY, QUIT 1999 Compression fracture of lumbar vertebra (03/14/17) Depression (11/30/02) s/p of brother (on SSRI for short time) Solitary pulmonary nodule (12/22/15) Incidental finding of 6 mm pulm nodule RLL on 11/07/[address] with 6 month f/u chest CT recommended; 04/2016 6-month f/u chest CT: resolution of nodule Pneumonia Spinal stenosis (02/04/14) Multi level on MRI Reflux esophagitis (07/16/12) LA GRADE B , EGD W/ BX 05/04/15 Osteopenia (02/14/16) DEXA 02/14/16: Fem neck t-score -1.2 --> WHO FRAX major osteoporotic 13% & hip fx 1.3% risk --> does not qualify for bisphosphonates --> Ca & vit D 03/2017 L3 compression fx --> re-calc WHO FRAX major osteoporotic 21% & hip fx 2.3% risk --> now qualifies for bisphosphonate tx, started 03/2017 Probable allergic rxn to Alendronate (1st pill Sat, and stayed thru today (but no worsening), 07/05. Agree to STOP for now. Leg cramps (04/01/14) Low Mg+ --> supplementation helped, but caused diarrhea; handout on dietary Mg+ given Iron deficiency anemia (01/02/17) S/p colo & EGD 05/2015, then capsule endoscopy & push enteroscopy with no definitive etiology identified; 11/14/2017: repeat colonoscopy (due to return of anemia) showing a colonic angioectasia, which may have been source of bleeding & anemia (no overt bleeding found). Fe supplementation & monitor 10/29/22 [place] [facility] [place] Intraabdominal calcification (11/14/15) Incidental finding on CT 2 mm between bladder and uterus, no further eval required, AOC Hypomagnesemia (03/04/17) Hiatal hernia (02/11/14) Smaller portions Endoscopy 10/04 anemia (nothing found), [facility] [place] Heart murmur 07/11/2016 echo: mild-moderate mitral regurgitation DJD (degenerative joint disease) (02/04/14) Lumbar spine--multiple level on MRI Surgery 10/2011, [facility] Dr. 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/21/16 [facility] [place] consult: moderate stenosis, not source of clinical pathology, & no intervention or further evaluation indicated Anemia (02/11/14) Suspect chronic dz/bone marrow suppression s/p breast CA tx (radiation); s/p GI workup (possible AVMs?), NL B12/folate, elevated Epo, NL retic count; chronic iron supplementation Allergic rhinitis Superior mesenteric artery stenosis Chronic GI bleeding Headache Surgical History H/O colonoscopy (~11/02/22) 11/02/22 , 1 cecal polyp removed - f/u 10 years 11/12/23[place] [place] H/O endoscopy (~06/21/22) 11/02/22 Upper GI endoscopy 11[place]12/23[place] [place] non-bleeding angioectasias-biopsies taken H/O partial mastectomy (~10/26/21) Left breast S/P breast biopsy, left (05/09/21) u/s guided Core Bx History of hysterectomy, supracervical Status post coronary artery stent placement (~01/27/21) H/O laminectomy (~10/06/12) L5S1 Dr. Jarrod Ballard H/O laminectomy L5S1 Tooth Extractions Multiple Oophrectomy, Right (~2007) For unknown reason Extraction of cataract left eye surgical removal with intraocular lens implant. Dr Agee Breast, Lumpectomy (~2003) B/L for breast CA Biopsy, Lymph Node (~2003) (L) axilla for breast CA Family History Sister Breast cancer Mother , 89 Alzheimer's dementia Breast cancer Father , AGE 75 Alcohol abuse Cirrhosis Sister Neoplasm uterine CA Sister Heart disease Brother Heart disease Niece Breast cancer Social History Smoking/Tobacco Use Status: Former Tobacco Use tobacco type: cigarettes Quit Date: 09/02/95 Tobacco: How many years used: 25 Smoking risk assessment performed?: Yes Alcohol Intake: former Details: none Drug use: Never Substance use type: does not use Adopted: No Caregiver/Support person: No Foster care: No Household members: spouse Housing: house Number of Children: 4 Communication Needs: None Pets and animals: No Current gender identity: female What type of physical activity do you participate in: regular exercise Duration: < 15 minutes/day Frequency: 3-4 times per week Mell/Hoahaoism: Yazidism Seatbelt use: always Drive intox or ride w/intox medical delivery driver: No Working smoke detector in home: Yes Fire extinguisher in home: Yes Carbon monox detector in home: Yes Do you feel safe at home: Yes Do you feel safe in your relationship?: Yes History History Para Hx # Term Pregnancies Multiple births Hx # Pregnancies Ectopic pregnancies AB induced Hx Number of Living Children 4 AB spontaneous
--- NOTE | 2023-12-18 08:30 | DI.RAD_ITS ---
Exam(s) XR CHEST 2V PA LATERAL EXAM: XR CHEST 2V PA LATERAL CLINICAL HISTORY: SOB/cough TECHNIQUE: 2D digital imaging was performed. Two views. COMPARISON: CT CT ABDOMEN PELVIS WO from 12/09/2023 CR XR CHEST 2V PA LATERAL from 12/09/2023 CR XR CHEST 2V PA LATERAL from 12/11/2023 FINDINGS: The lungs are suboptimally inflated on the lateral view. HEART: Normal size. Coronary artery stents. Aorta: Not dilated. PULMONARY VASCULATURE: Normal. LUNGS: Some improvement in bibasilar infiltrates. PLEURAL SPACE: No pleural effusion or pneumothorax. BONE:Unremarkable for age. Soft tissues: Unremarkable. IMPRESSION: Some improvement in bibasilar infiltrates. No new findings. DATA REPOSITORY: RADIATION DOSE DELIVERED:
[2023-12-18 08:52] LABS: Abs Immature Grans 0.09 10^3/uL (0.0-0.06); Absolute Basophil Count 0.02 10^3/uL (0.0-0.2); Absolute Eosinophil Count 0.18 10^3/uL (0.0-0.7); Absolute Lymphocyte Count 0.44 10^3/uL (1.2-3.4); Absolute Monocyte Count 1.03 10^3/uL (0.1-0.8); Absolute Neutrophil Count 4.88 10^3/uL (1.2-6.7); Basophils % 0.3; Eosinophils % 2.7; HCT 24.3 % (36.0-46.0); Immature Grans % 1.4; Lymphocytes % 6.6; MCH 29.2 pg (27.0-33.0); MCHC 30.9 % (32.0-36.0); MCV 95 fL (80-95); MPV 9.1 fL (8.0-11.0); Monocytes % 15.5; Neutrophils % 73.5; Nucleated RBC 0.5 % (0.0-0.3); Platelet Count 257 10^3/uL (130-400); RBC 2.57 10^6/uL (3.93-5.22); RDW 15.9 % (11.7-14.6); RDW-SD 54.7 fL; WBC 6.64 10^3/uL (4.4-10.8)
[2023-12-18 08:55] LABS: HGB 7.5 g/dL (11.2-15.7)
[2023-12-18] MEDS: Albuterol/Ipratropium 3 ML UPD VIAL UPD (08:57)
[2023-12-18 09:16] LABS: ALT 88 U/L (14-59); AST 74 U/L (15-37); Albumin 2.4 g/dL (3.4-5.0); Alkaline Phosphatase 53 U/L (46-116); Anion Gap 4.7 mmol/L (3-11); BUN 39 mg/dL (7-18); Bilirubin, Total 0.3 mg/dL (0.2-1.0); CO2 34.3 mmol/L (21.0-32.0); CREATININE 1.3 mg/dL (0.55-1.02); Calcium 10.4 mg/dL (8.5-10.1); Chloride 98 mmol/L (98-107); Estimated GFR 43.15 (mL/min/1.73m2); Glucose 83 mg/dL (74-106); Magnesium 2.3 mg/dL (1.8-2.4); NT-proBNP 2068 pg/mL (<300); Potassium 5.1 mmol/L (3.5-5.1); Sodium 137 mmol/L (136-145); Total Protein 7.4 g/dL (6.4-8.2); Troponin I 94 ng/L (< or =60)
[2023-12-18 09:30] LABS: COVID-19 PCR Negative (Negative); Influenza A PCR Negative (Negative); Influenza B PCR Negative (Negative); RSV PCR Negative (Negative)
[2023-12-18 09:31] LABS: Source Nasopharynx
--- NOTE | 2023-12-18 11:46 | W.PM.HP.N ---
Date of service: 12/18/23 Time of Service: 11:46 Assessment and Plan Assessment and plan (1) Acute upper GI bleed: Status: Acute Assessment and plan: thought to be etiology for presentation of sob, symptomatic blood loss anemia from suspected upper gi bleed. admit to med surg NPO PPI bid, carafate hold antiplatelets given 1 unit of PRBC in ED follow H&H upper and lower endoscopies in November 2023 at [facility] with no source. (2) COPD, very severe: Status: Chronic Assessment and plan: stable, continue home medication and monitor continue home oxygen (3) History of heart artery stent: Status: Chronic Assessment and plan: s/p LAD stent discharged 12/13/23 antiplatelets on hold should resume brendon if no active bleeding (4) Non-ST elevation (NSTEMI) myocardial infarction: Status: Acute Assessment and plan: recent NSTEMI, trop at 94, no chest pain will trend. (5) Type 2 diabetes mellitus, with long-term current use of insulin: Status: Acute Assessment and plan: will be NPO for now blood sugars AC/HS with sliding coverage as needed will place all oral and long acting insulin on hold for now. Qualifiers: Chronic kidney disease stage: stage 3 (moderate) Chronic kidney disease stage 3 subtype: stage 3b (GFR 30-44) Diabetes mellitus complication detail: with chronic kidney disease Diabetes mellitus complication status: with kidney complications Qualified Code(s): E11.22 - Type 2 diabetes mellitus with diabetic chronic kidney disease; N18.32 - Chronic kidney disease, stage 3b; Z79.4 - nursing home (current) use of insulin (6) Essential hypertension: Status: Acute Assessment and plan: hold antihypertensives in setting of acute bleeding (7) Hyperlipidemia: Status: Acute Assessment and plan: continue statin Qualifiers: Hyperlipidemia type: unspecified Qualified Code(s): E78.5 - Hyperlipidemia, unspecified (8) CKD (chronic kidney disease): Status: Chronic Assessment and plan: stable at 1.3 with baseline creatinine 1.4-1.7 avoid nephrotoxic drugs renal dosing as needed Qualifiers: Chronic kidney disease stage: stage 3 (moderate) Chronic kidney disease stage 3 subtype: stage 3b (GFR 30-44) Qualified Code(s): N18.32 - Chronic kidney disease, stage 3b (9) Obstructive sleep apnea: Status: Chronic Assessment and plan: home cpap History of Present Illness History of Present Illness Chief Complaint: shortness of breath Narrative: presents to ED for ongoing shortness of breath since being discharged from [facility] following a cardiac stent placement. her work up in the ED shows acute blood loss anemia with hemoglobin of 7.5. she consented to and received one unit of PRBC. stools have been black, no diarrhea, no chest pain. She had upper and lower endoscopy in November 2023 at [facility] for gi bleeding, no source identified. hemodynamically stable. Review of Systems All systems reviewed & are unremarkable except as noted in HPI and below PFSH All Active Problems Acute upper GI bleed (Acute) History of heart artery stent (Chronic) LAD Stent 12/13/2023 at [facility] in [facility] Non-ST elevation (NSTEMI) myocardial infarction (Acute) Pneumonia (Acute) Anxiety (Chronic) Adhesive capsulitis of left shoulder (Acute) Sepsis (Acute) Pneumonia (Acute ~09/2023) Acute hypoxemic respiratory failure (Acute) Kaylee rash of groin (Acute) Arteriovenous malformation (Acute ~06/2023) 06/27/23 Gastro Former smoker (Acute) Asymptomatic menopausal state (Acute) [facility] Endo Note 06/12/23 Type 2 diabetes mellitus with hyperglycemia, with long-term current use of insulin (Acute) [facility] Endo Note 06/12/23 Ductal carcinoma in situ (DCIS) of left breast (Acute) [facility] Hem/Onc note 06/05/23 Iron deficiency anemia secondary to blood loss (chronic) (Acute) 05/01/23 Hem/Onc GI bleed (Chronic) Demand ischemia (Acute) Chronic respiratory failure with hypoxia (Acute) Anemia (Chronic) Esophagitis determined by endoscopy (Acute ~12/2022) Compression fracture of L3 vertebra (Acute ~2021) Mucous cyst of digit of left hand (Acute ~12/2022) s/p excision of mucous cyst DOS: 01/08/23 Trigger finger, left middle finger (Acute) 40 mg Depo-Medrol injection: 11/12/2022 s/p trigger release DOS: 01/08/23 History of breast cancer (Acute) Dermatitis, seborrheic (Acute) 07/06/22 Dr Moreno Anemia, macrocytic (Acute) 05/03/22 Hem/Onc Note Essential hypertension (Acute 05/16/04) Microalbuminuria due to type 2 diabetes mellitus (Acute) Hyperlipidemia (Acute 03/18/07) Type 2 diabetes mellitus, with long-term current use of insulin (Acute ~1999) Renal artery stenosis, [place], bilateral (Chronic) [facility] Vascular Surgery; most recent OV 06/01/21 Atherosclerosis of both carotid arteries (Chronic 11/12/16) [facility] Vascular Surgery; most recent OV 06/01/21; Recommend annual carotid US COPD, very severe (Chronic) [facility] Pulm O2 dependent ASCVD (arteriosclerotic cardiovascular disease) (Chronic) [facility] 06/01/21 Vascular note: Asymptomatic bilateral carotid artery stenosis Non-ST elevation (NSTEMI) myocardial infarction (Acute ~12/2020) S/p proximal LCX stent placement 01/27/21 [facility] CKD (chronic kidney disease) (Chronic) Obstructive sleep apnea (Chronic 03/02/14) Bipap w/ 2L 02 09/06/2019 Medical History Esophageal thrush Allergic contact dermatitis due to other agents Malignant neoplasm of unspecified site of left female breast (~10/2021) 11/06/21 Dr Mcgill ([facility] Rad[facility]Onc Office); Radiation Therapy planned 12/21/21-hormone receptor positive Gross hematuria Vulvar irritation Breast cancer in female (~05/2021) R 2002, L 2003 s/p B/L partial mastectomy, XRT, & tamoxifen. 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) Estrogen receptor positive s/p RXT, surgical removal of tumor Enteritis Back pain Post-menopausal bleeding Pelvic pain Pericarditis (~12/2020) S/p NE Vaginitis and vulvovaginitis, unspecified Tobacco use disorder 30-50 PY, QUIT 1999 Compression fracture of lumbar vertebra (03/14/17) Depression (11/30/02) s/p of brother (on SSRI for short time) Solitary pulmonary nodule (12/22/15) Incidental finding of 6 mm pulm nodule RLL on 11/07/[address] with 6 month f/u chest CT recommended; 04/2016 6-month f/u chest CT: resolution of nodule Pneumonia Spinal stenosis (02/04/14) Multi level on MRI Reflux esophagitis (07/16/12) LA GRADE B , EGD W/ BX 05/04/15 Osteopenia (02/14/16) DEXA 02/14/16: Fem neck t-score -1.2 --> WHO FRAX major osteoporotic 13% & hip fx 1.3% risk --> does not qualify for bisphosphonates --> Ca & vit D 03/2017 L3 compression fx --> re-calc WHO FRAX major osteoporotic 21% & hip fx 2.3% risk --> now qualifies for bisphosphonate tx, started 03/2017 Probable allergic rxn to Alendronate (1st pill Wed, Hiv Th and stayed thru today (but no worsening), 07/05. Agree to STOP for now. Leg cramps (04/01/14) Low Mg+ --> supplementation helped, but caused diarrhea; handout on dietary Mg+ given Iron deficiency anemia (01/02/17) S/p colo & EGD 05/2015, then capsule endoscopy & push enteroscopy with no definitive etiology identified; 11/14/2017: repeat colonoscopy (due to return of anemia) showing a colonic angioectasia, which may have been source of bleeding & anemia (no overt bleeding found). Fe supplementation & monitor 10/29/22 Seen by [facility] Hem/Onc Intraabdominal calcification (11/14/15) Incidental finding on CT 2 mm between bladder and uterus, no further eval required, AOC Hypomagnesemia (03/04/17) Hiatal hernia (02/11/14) Smaller portions Endoscopy 10/04 anemia (nothing found), [facility] Heart murmur 07/11/2016 echo: mild-moderate mitral regurgitation DJD (degenerative joint disease) (02/04/14) Lumbar spine--multiple level on MRI Surgery 10/2011, [facility] Dr. 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/21/16 [facility] Vascular Surgery consult: moderate stenosis, not source of clinical pathology, & no intervention or further evaluation indicated Anemia (02/11/14) Suspect chronic dz/bone marrow suppression s/p breast CA tx (radiation); s/p GI workup (possible AVMs?), NL B12/folate, elevated Epo, NL retic count; chronic iron supplementation Allergic rhinitis Superior mesenteric artery stenosis Chronic GI bleeding Headache Surgical History H/O colonoscopy (~11/02/22) 11/02/22 , 1 cecal polyp removed - f/u 10 years 11/12/23-[facility] H/O endoscopy (~06/21/22) 11/02/22 Upper GI endoscopy 11/12/23-[facility]-3 non-bleeding angioectasias-biopsies taken H/O partial mastectomy (~10/26/21) Left breast S/P breast biopsy, left (05/09/21) u/s guided Core Bx History of hysterectomy, supracervical Status post coronary artery stent placement (~01/27/21) H/O laminectomy (~10/06/12) L5S1 Dr. Jarrod Ballard H/O laminectomy L5S1 Tooth Extractions Multiple Oophrectomy, Right (~2007) For unknown reason Extraction of cataract left eye surgical removal with intraocular lens implant. Dr Agee Breast, Lumpectomy (~2003) B/L for breast CA Biopsy, Lymph Node (~2003) (L) axilla for breast CA Family History Sister Breast cancer Mother , 89 Alzheimer's dementia Breast cancer Father , AGE 75 Alcohol abuse Cirrhosis Sister Neoplasm uterine CA Sister Heart disease Brother Heart disease Niece Breast cancer Social History Smoking/Tobacco Use Status: Former Tobacco Use tobacco type: cigarettes Quit Date: 09/02/95 Tobacco: How many years used: 25 Smoking risk assessment performed?: Yes Alcohol Intake: former Details: none Drug use: Never Substance use type: does not use Adopted: No Caregiver/Support person: No Foster care: No Household members: spouse Housing: house Number of Children: 4 Communication Needs: None Pets and animals: No Current gender identity: female What type of physical activity do you participate in: regular exercise Duration: < 15 minutes/day Frequency: 3-4 times per week Mell/Spiritism: Sikhism Seatbelt use: always Drive intox or ride w/intox 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 Working smoke detector in home: Yes Fire extinguisher in home: Yes Carbon monox detector in home: Yes Do you feel safe at home: Yes Do you feel safe in your relationship?: Yes History History Para Hx # Term Pregnancies Multiple births Hx # Pregnancies Ectopic pregnancies AB induced Hx Number of Living Children 4 AB spontaneous Meds Allergies and Home Medications Allergies Allergy/AdvReac Type Severity Reaction Status Date / Time propylene glycol Allergy Severe Rash Verified 12/09/23 07:56 anastrozole Allergy Intermediate unknown Verified 12/09/23 07:56 petrolatum,white Allergy Intermediate rash Verified 12/09/23 07:56 [From Petroleum Jelly] adhesive tape Allergy Unknown Skin Rash Verified 12/09/23 07:56 alendronate sodium Allergy Unknown Hives Verified 12/09/23 07:56 azithromycin AdvReac Intermediate dry heaves Verified 12/09/23 07:56 and diarrhea hydrocodone bitartrate AdvReac Intermediate Nausea Verified 12/09/23 07:56 [From Vicodin] liraglutide [From Victoza] AdvReac Intermediate diarhhea Verified 12/09/23 07:56 lorazepam [From Ativan] AdvReac Intermediate felt Verified 12/09/23 07:56 crazy paraben AdvReac Intermediate Skin Rash Verified 12/09/23 07:56 quaternium 15 AdvReac Intermediate generalized Verified 12/09/23 07:56 rash roflumilast AdvReac Intermediate Diarrhea Verified 12/09/23 07:56 zolpidem [From Ambien] AdvReac Intermediate confusion Verified 12/09/23 07:56 LANDON Inhibitors AdvReac Unknown COUGH,DYSPN Verified 12/09/23 07:56 EA oxycodone HCl [From Percocet] AdvReac Unknown NAUSEA/VOMI Verified 12/09/23 07:56 TING Benzodiazepines AdvReac Visual Verified 12/09/23 07:56 Disturbances fragranced creams Allergy Intermediate Skin Rash Uncoded 12/09/23 07:56 parabin wax Allergy Intermediate Skin Rash Uncoded 12/09/23 07:56 diogolidinyl AdvReac Severe Skin Rash Uncoded 12/09/23 07:56 bisphenal AdvReac Intermediate Skin Rash Uncoded 12/09/23 07:56 Home Medications Medication Instructions Recorded Confirmed Type Oxygen l NS At Night ##2 04/19/16 02/19/19 Clinic multivitamin (Daily Multi-Vitamin 1 ea PO DAILY 03/19/17 12/18/23 History tablet) flash glucose scanning reader #1 ea 05/04/21 12/18/23 Rx (FreeStyle Basia 2 Creede) denosumab 60 mg/mL subcutaneous 60 mg subcut [id number] 09/25/21 12/18/23 History syringe (Prolia) letrozole 2.5 mg tablet 2.5 mg PO DAILY 09/25/21 12/18/23 History fluocinolone 0.01 % topical 1 applic topical BID Itchy scalp 04/11/22 12/18/23 History solution blood sugar diagnostic (Blood #250 ea 04/12/22 12/18/23 Rx Glucose Test strips) fiber supplements 1 tab PO DAILY 05/23/22 12/18/23 History cetirizine 10 mg tablet 10 mg PO DAILY #90 tabs 12/31/22 12/18/23 Rx magnesium oxide 400 mg (241.3 mg See Rx Instructions PO .COMPLEX 12/31/22 12/18/23 Rx magnesium) tablet low magnesium level #180 tab-caps nitroglycerin 0.4 mg sublingual 0.4 mg sublingual Q5M PRN chest 02/14/23 12/18/23 Rx tablet pain #30 tabs sucralfate 1 gram tablet (Carafate) 1 g PO QACHS #60 tabs 02/27/23 12/18/23 Rx lancets 28 gauge (Sure Comfort #100 ea 03/20/23 12/18/23 Rx Lancets) flash glucose sensor (FreeStyle #6 ea 03/25/23 12/18/23 Rx Basia 2 Sensor kit) hydrochlorothiazide 25 mg tablet 25 mg PO DAILY AM #90 tab-caps 03/28/23 12/18/23 Rx tiotropium 2.5 mcg-olodaterol 2.5 2 puff inhalation DAILY #4 grams 03/29/23 12/18/23 Rx mcg/actuation mist for inhalation (Stiolto Respimat) insulin glargine 100 unit/mL (3 See Rx Instructions subcut BID Dx: 06/14/23 12/18/23 History mL) subcutaneous pen (Lantus E11.9 to maintain HbA1c less than Solostar U-100 Insulin) 7% montelukast 10 mg tablet 10 mg PO DAILY 06/18/23 12/18/23 History valsartan 160 mg tablet 160 mg PO DAILY #90 tabs 07/15/23 12/18/23 Rx dulaglutide 0.75 mg/0.5 mL 1.5 mg subcut QWEEK 07/18/23 12/18/23 History subcutaneous pen injector (Trulicity) insulin lispro 100 unit/mL 12 unit subcut TID high blood sugar 07/18/23 12/18/23 History subcutaneous pen (Humalog KwikPen (U-100) Insulin) rosuvastatin 40 mg tablet See Rx Instructions .Route 08/12/23 12/18/23 Rx .COMPLEX #90 tabs pen needle, diabetic 32 gauge x #400 ea 08/28/23 12/18/23 Rx (BD Marina 2nd Gen Pen Needle) fluticasone propionate 50 2 spray intranasal DAILY #16 grams 08/29/23 12/18/23 Rx mcg/actuation nasal spray,suspension famotidine 40 mg tablet 20 mg (1/2 x 40 mg) PO DAILY #60 09/19/23 12/18/23 Rx tabs albuterol sulfate 2.5 mg/3 mL 2.5 mg (3 mL) inhalation Q4H PRN 10/01/23 12/18/23 Rx (0.083 %) solution for nebulization shortness of breath or wheezing #75 mL metoprolol succinate 50 mg See Rx Instructions .Route 10/07/23 12/18/23 Rx tablet,extended release 24 hr .COMPLEX #90 tabs pantoprazole 40 mg tablet,delayed See Rx Instructions .Route 10/07/23 12/18/23 Rx release .COMPLEX #60 tabs citalopram 10 mg tablet 20 mg (2 x 10 mg) PO QHS #60 tabs 12/06/23 12/18/23 Rx aspirin 81 mg tablet,delayed 81 mg PO DAILY 12/09/23 12/18/23 History release (Adult Aspirin Regimen) metformin 500 mg tablet See Rx Instructions .Route 12/09/23 12/18/23 Rx .COMPLEX #180 tabs albuterol sulfate 90 mcg/actuation 2 puff inhalation Q6H PRN 12/16/23 12/18/23 Rx aerosol inhaler shortness of breath or wheezing #8.5 grams clopidogrel 75 mg tablet 75 mg PO DAILY 12/17/23 12/18/23 History clotrimazole 10 mg jihan 10 mg mucous membrane ONCE 12/17/23 12/18/23 History empagliflozin 25 mg tablet 25 mg PO DAILY 12/17/23 12/18/23 History (Jardiance) multivitamin with minerals-folic 1 tab PO DAILY 12/18/23 12/18/23 History acid 12 mcg chewable tablet (Centrum Adults) Exam Narrative Exam Narrative: Well-appearing female of stated age in no acute distress head is atraumatic eyes nonicteric noninjected EOMs intact oral mucosa is slightly dry no exudate neck is supple with no JVD respirations even and unlabored cardiovascular regular rate and rhythm abdomen is soft nontender nondistended moves all extremities skin is pink warm dry neurologic awake alert oriented no focal deficits Results Labs 12/19/23 06:14 12/19/23 06:14 Labs: Laboratory Results - last 24 hr 12/18/23 12/18/23 12/18/23 08:47 10:15 11:33 WBC 6.64 RBC 2.57 L Hgb 7.5 L Hct 24.3 L MCV 95 MCH 29.2 MCHC 30.9 L RDW 15.9 H Plt Count 257 MPV 9.1 Immature Gran % 1.4 Neutrophils % 73.5 Lymphocytes % 6.6 Monocytes % 15.5 Eosinophils % 2.7 Basophils % 0.3 Nucleated RBC % 0.5 H Absolute Neutrophils 4.88 Absolute Lymphocytes 0.44 L Absolute Monocytes 1.03 H Absolute Eosinophils 0.18 Absolute Basophils 0.02 Sodium 137 Potassium 5.1 Chloride 98 Carbon Dioxide 34.3 H Anion Gap 4.7 BUN 39 H Creatinine 1.3 H Est GFR (CKD-EPI 2020) 43.15 Glucose 83 Calcium 10.4 H Magnesium 2.3 Total Bilirubin 0.3 AST 74 H ALT 88 H Alkaline Phosphatase 53 Troponin I 94 H* Cancelled NT-Pro-B Natriuret Pep 2067 H Total Protein 7.4 Albumin 2.4 L COVID-19 Source Nasopharynx SARS-CoV-2 (PCR) Negative Influenza Type A (PCR) Negative Influenza Type B (PCR) Negative RSV (PCR) Negative Crossmatch See Detail Last Vital Signs Temp 36.3 C L 12/18/23 08:20 Pulse 74 12/18/23 11:31 Resp 25 H 04/17/24 11:31 BP 111/26 L 12/18/23 11:31 Pulse Ox 94 12/18/23 11:31 Time Spent Time spent with Patient: 40-54 minutes Time was spent: preparing to see the patient(eg.review tests), obtaining and/or reviewing separately otained hiistory, ordering medications,tests, procedures, indepentently interpreting results and counseling the patient
--- NOTE | 2023-12-18 13:25 | SCONE_ITS ---
Date of service: 12/18/23 Time of Service: 13:25 Assessment and Plan Assessment and plan (1) Acute upper GI bleed: Status: Acute Assessment and plan: The differential for the source of her GI bleed is obviously quite extensive. I suppose with the new addition of Plavix to her aspirin, that gastritis is probably the leading diagnosis. 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 For now, I think the gentle resuscitation with packed cells, as well as proton pump inhibitor therapy probably the safest course of action. Given her recent cardiac stenting, she does carry increased risk for procedural anesthesia, and I think in that regard that we can avoid it is much as possible but would be in her best interest. History of Present Illness History of Present Illness Chief Complaint: GI bleed Narrative: Elizabet is 73 years old. She comes to the emergency department complaining of some shortness of breath, as well as fatigue. She had some concerns because these are symptoms that are similar to a recent myocardial infarction. At that time, she was found of a non-ST elevation GA and transferred to [facility] percutaneous stenting. While in the ER, she found to have hemoglobin of 7.5. Stools were tested and found to be guaiac positive. Consulted for gastrointestinal hemorrhage. Generally, Nahed tells me that she has been feeling okay. She has been a little bit rundown since her discharge from [place], and she did have some concerns that she was not quite ready to be discharged home. She has been eating and drinking okay with no specific GI complaints. She denies any melena or hematochezia. Past medical history is significant for chronic anemia that seems to be a result of chronic GI bleed. She is undergone bidirectional endoscopy at [facility]. Although she has a history of colonic vascular ectasias, her last colonoscopy was negative. Review of Systems Constitutional Constitutional: Reports fatigue, Reports lethargy and Denies poor appetite Eyes Eyes: Reports system reviewed and no additional complaints, except as documented ENT Ears, Nose, Mouth, and Throat: Reports system reviewed and no additional complaints, except as documented Cardiovascular Cardiovascular: Denies chest pain and Reports dyspnea Respiratory Respiratory: Reports dyspnea Gastrointestinal Gastrointestinal: Denies abdominal pain, Denies melena, Denies hematochezia, Denies change in bowel habits, Denies nausea and Denies vomiting Genitourinary Genitourinary: Reports system reviewed and no additional complaints, except as documented Musculoskeletal Musculoskeletal: Reports muscle weakness Neurologic Neurologic: Reports system reviewed and no additional complaints, except as documented Endocrine Endocrine: Reports fatigue Hematologic/Lymphatic Hematologic/Lymphatic: Denies easy bleeding and Denies easy bruising PFSH All Active Problems Acute upper GI bleed (Acute) History of heart artery stent (Chronic) LAD Stent 12/13/2023 at [facility] in [facility] Non-ST elevation (NSTEMI) myocardial infarction (Acute) Pneumonia (Acute) Anxiety (Chronic) Adhesive capsulitis of left shoulder (Acute) Sepsis (Acute) Pneumonia (Acute ~09/2023) Acute hypoxemic respiratory failure (Acute) Kaylee rash of groin (Acute) Arteriovenous malformation (Acute ~06/2023) 06/27/23 Gastro Former smoker (Acute) Asymptomatic menopausal state (Acute) [facility] Endo Note 06/12/23 Type 2 diabetes mellitus with hyperglycemia, with long-term current use of insulin (Acute) [facility] Endo Note 06/12/23 Ductal carcinoma in situ (DCIS) of left breast (Acute) [facility] Hem/Onc note 06/05/23 Iron deficiency anemia secondary to blood loss (chronic) (Acute) 05/01/23 Hem/Onc GI bleed (Chronic) Demand ischemia (Acute) Chronic respiratory failure with hypoxia (Acute) Anemia (Chronic) Esophagitis determined by endoscopy (Acute ~12/2022) Compression fracture of L3 vertebra (Acute ~2021) Mucous cyst of digit of left hand (Acute ~12/2022) s/p excision of mucous cyst DOS: 01/08/23 Trigger finger, left middle finger (Acute) 40 mg Depo-Medrol injection: 11/12/2022 s/p trigger release DOS: 01/08/23 History of breast cancer (Acute) Dermatitis, seborrheic (Acute) 07/06/22 Dr Moreno Anemia, macrocytic (Acute) 05/03/22 Hem/Onc Note Essential hypertension (Acute 05/16/04) Microalbuminuria due to type 2 diabetes mellitus (Acute) Hyperlipidemia (Acute 03/18/07) Type 2 diabetes mellitus, with long-term current use of insulin (Acute ~1999) Renal artery stenosis, [place], bilateral (Chronic) [facility] Vascular Surgery; most recent OV 06/01/21 Atherosclerosis of both carotid arteries (Chronic 11/12/16) [facility] Vascular Surgery; most recent OV 06/01/21; Recommend annual carotid US COPD, very severe (Chronic) [facility] Pulm O2 dependent ASCVD (arteriosclerotic cardiovascular disease) (Chronic) [facility] 06/01/21 Vascular note: Asymptomatic bilateral carotid artery stenosis Non-ST elevation (NSTEMI) myocardial infarction (Acute ~12/2020) S/p proximal LCX stent placement 01/27/21 [facility] CKD (chronic kidney disease) (Chronic) Obstructive sleep apnea (Chronic 03/02/14) Bipap w/ 2L 02 09/06/2019 Medical History Esophageal thrush Allergic contact dermatitis due to other agents Malignant neoplasm of unspecified site of left female breast (~10/2021) 11/06/21 Dr Mcgill ([facility] Rad[facility]Onc Office); Radiation Therapy planned 12/21/21-hormone receptor positive Gross hematuria Vulvar irritation Breast cancer in female (~05/2021) R 2002, L 2003 s/p B/L partial mastectomy, XRT, & tamoxifen. 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) Estrogen receptor positive s/p RXT, surgical removal of tumor Enteritis Back pain Post-menopausal bleeding Pelvic pain Pericarditis (~12/2020) S/p GA Vaginitis and vulvovaginitis, unspecified Tobacco use disorder 30-50 PY, QUIT 1999 Compression fracture of lumbar vertebra (03/14/17) Depression (11/30/02) s/p of brother (on SSRI for short time) Solitary pulmonary nodule (12/22/15) Incidental finding of 6 mm pulm nodule RLL on 11/07/[address] with 6 month f/u chest CT recommended; 04/2016 6-month f/u chest CT: resolution of nodule Pneumonia Spinal stenosis (02/04/14) Multi level on MRI Reflux esophagitis (07/16/12) LA GRADE B , EGD W/ BX 05/04/15 Osteopenia (02/14/16) DEXA 02/14/16: Fem neck t-score -1.2 --> WHO FRAX major osteoporotic 13% & hip fx 1.3% risk --> does not qualify for bisphosphonates --> Ca & vit D 03/2017 L3 compression fx --> re-calc WHO FRAX major osteoporotic 21% & hip fx 2.3% risk --> now qualifies for bisphosphonate tx, started 03/2017 Probable allergic rxn to Alendronate (1st pill Wed, Hives Th and stayed thru today (but no worsening), 07/05. Agree to STOP for now. Leg cramps (04/01/14) Low Mg+ --> supplementation helped, but caused diarrhea; handout on dietary Mg+ given Iron deficiency anemia (01/02/17) S/p colo & EGD 05/2015, then capsule endoscopy & push enteroscopy with no definitive etiology identified; 11/14/2017: repeat colonoscopy (due to return of anemia) showing a colonic angioectasia, which may have been source of bleeding & anemia (no overt bleeding found). Fe supplementation & monitor 10/29/22 Seen by [facility] Hem/Onc Intraabdominal calcification (11/14/15) Incidental finding on CT 2 mm between bladder and uterus, no further eval required, AOC Hypomagnesemia (03/04/17) Hiatal hernia (02/11/14) Smaller portions Endoscopy 10/04 anemia (nothing found), [facility] Heart murmur 07/11/2016 echo: mild-moderate mitral regurgitation DJD (degenerative joint disease) (02/04/14) Lumbar spine--multiple level on MRI Surgery 10/2011, [facility] Dr. 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 Vascular Surgery consult: moderate stenosis, not source of clinical pathology, & no intervention or further evaluation indicated Anemia (02/11/14) Suspect chronic dz/bone marrow suppression s/p breast CA tx (radiation); s/p GI workup (possible AVMs?), NL B12/folate, elevated Epo, NL retic count; chronic iron supplementation Allergic rhinitis Superior mesenteric artery stenosis Chronic GI bleeding Headache Surgical History H/O colonoscopy (~11/02/22) 11/02/22 , 1 cecal polyp removed - f/u 10 years 11/12/23-[facility] H/O endoscopy (~06/21/22) 11/02/22 Upper GI endoscopy 11/12/23-[facility]-3 non-bleeding angioectasias-biopsies taken H/O partial mastectomy (~10/26/21) Left breast S/P breast biopsy, left (05/09/21) u/s guided Core Bx History of hysterectomy, supracervical Status post coronary artery stent placement (~01/27/21) H/O laminectomy (~10/06/12) L5S1 Dr. Jarrod Ballard H/O laminectomy L5S1 Tooth Extractions Multiple Oophrectomy, Right (~2007) For unknown reason Extraction of cataract left eye surgical removal with intraocular lens implant. Dr Agee Breast, Lumpectomy (~2003) B/L for breast CA Biopsy, Lymph Node (~2003) (L) axilla for breast CA Family History Sister Breast cancer Mother , 89 Alzheimer's dementia Breast cancer Father , AGE 75 Alcohol abuse Cirrhosis Sister Neoplasm uterine CA Sister Heart disease Brother Heart disease Niece Breast cancer Social History Smoking/Tobacco Use Status: Former Tobacco Use tobacco type: cigarettes Quit Date: 09/02/95 Tobacco: How many years used: 25 Smoking risk assessment performed?: Yes Alcohol Intake: former Details: none Drug use: Never Substance use type: does not use Adopted: No Caregiver/Support person: No Foster care: No Household members: spouse Housing: house Number of Children: 4 Communication Needs: None Pets and animals: No Current gender identity: female What type of physical activity do you participate in: regular exercise Duration: < 15 minutes/day Frequency: 3-4 times per week Mell/Episcopalian: Druze Seatbelt use: always Drive intox or ride w/intox delivery driver/customer service: No Working smoke detector in home: Yes Fire extinguisher in home: Yes Carbon monox detector in home: Yes Do you feel safe at home: Yes Do you feel safe in your relationship?: Yes History History 2 Para Hx # Term Pregnancies Multiple births Hx # Pregnancies Ectopic pregnancies AB induced Hx Number of Living Children 4 AB spontaneous Exam Const General: cooperative and comfortable Orientation: alert, awake and oriented x3 GI Inspection: normal to inspection and non-distended Palpation: soft, no guarding and nontender Percussion: normal to percussion Auscultation: normal bowel sounds Results Last Vital Signs Temp 99.1 F 12/18/23 13:21 Pulse 84 12/18/23 13:21 Resp 18 12/18/23 13:21 BP 136/44 L 12/18/23 13:21 Pulse Ox 95 12/18/23 13:21 Labs 12/18/23 08:47 12/18/23 08:47 Labs: Laboratory Results - last 24 hr 12/18/23 12/18/23 12/18/23 08:47 10:15 11:33 WBC 6.64 RBC 2.57 L Hgb 7.5 L Hct 24.3 L MCV 95 MCH 29.2 MCHC 30.9 L RDW 15.9 H Plt Count 257 MPV 9.1 Immature Gran % 1.4 Neutrophils % 73.5 Lymphocytes % 6.6 Monocytes % 15.5 Eosinophils % 2.7 Basophils % 0.3 Nucleated RBC % 0.5 H Absolute Neutrophils 4.88 Absolute Lymphocytes 0.44 L Absolute Monocytes 1.03 H Absolute Eosinophils 0.18 Absolute Basophils 0.02 Sodium 137 Potassium 5.1 Chloride 98 Carbon Dioxide 34.3 H Anion Gap 4.7 BUN 39 H Creatinine 1.3 H Est GFR (CKD-EPI 2020) 43.15 Glucose 83 Calcium 10.4 H Magnesium 2.3 Total Bilirubin 0.3 AST 74 H ALT 88 H Alkaline Phosphatase 53 Troponin I 94 H* Cancelled NT-Pro-B Natriuret Pep 8 H Total Protein 7.4 Albumin 2.4 L COVID-19 Source Nasopharynx SARS-CoV-2 (PCR) Negative Influenza Type A (PCR) Negative Influenza Type B (PCR) Negative RSV (PCR) Negative Patient ABO/Rh A Positive Antibody Screen NEGATIVE Crossmatch See Detail
[2023-12-18] MEDS: Sucralfate 1 GM TAB PO ×2 (15:43→20:55)
[2023-12-18 18:36] LABS: HCT 28.3 % (36.0-46.0); HGB 8.9 g/dL (11.2-15.7)
[2023-12-18 18:54] LABS: Troponin I 97 ng/L (< or =60)
[2023-12-18] MEDS: Citalopram 10 MG TAB 20 MG PO (20:54)
[2023-12-18] MEDS: Normal Saline Flush 10 ML SYR IVP (20:55)
[2023-12-18] MEDS: Magnesium Oxide 400 MG TAB PO (20:55)
[2023-12-18] MEDS: Pantoprazole 40 MG TABCR PO (20:55)
[2023-12-19 04:02] VITALS: BP 138/53; PULSE 77; RESP 15; TEMP 36.6; O2SAT 89
[2023-12-19 06:29] LABS: Absolute Basophil Count 0.02 10^3/uL (0.0-0.2); Absolute Eosinophil Count 0.28 10^3/uL (0.0-0.7); Absolute Lymphocyte Count 0.43 10^3/uL (1.2-3.4); Absolute Monocyte Count 1.33 10^3/uL (0.1-0.8); Absolute Neutrophil Count 4.18 10^3/uL (1.2-6.7); Basophils % 0.3; Eosinophils % 4.4; HCT 28.7 % (36.0-46.0); HGB 8.9 g/dL (11.2-15.7); Immature Grans % 1.6; Lymphocytes % 6.8; MCH 28.7 pg (27.0-33.0); MCV 93 fL (80-95); MPV 9.1 fL (8.0-11.0); Neutrophils % 65.9; Nucleated RBC 0.5 % (0.0-0.3); Platelet Count 245 10^3/uL (130-400); RDW-SD 53.1 fL; WBC 6.34 10^3/uL (4.4-10.8)
[2023-12-19 06:39] LABS: Anion Gap 2.6 mmol/L (3-11); BUN 30 mg/dL (7-18); CO2 35.4 mmol/L (21.0-32.0); CREATININE 1.1 mg/dL (0.55-1.02); Calcium 9.7 mg/dL (8.5-10.1); Chloride 97 mmol/L (98-107); Estimated GFR 52.73 (mL/min/1.73m2); Glucose 112 mg/dL (74-106); Potassium 4.9 mmol/L (3.5-5.1); Sodium 135 mmol/L (136-145)
[2023-12-19 06:53] LABS: Troponin I 72 ng/L (< or =60)
[2023-12-19 07:32] VITALS: BP 127/44; PULSE 88; RESP 18; TEMP 36.4; O2SAT 91
[2023-12-19] MEDS: Magnesium Oxide 400 MG TAB PO (08:08)
[2023-12-19] MEDS: Letrozole 2.5 MG TAB PO (08:08)
[2023-12-19] MEDS: Empaglifozin 25 MG TAB PO (08:08)
[2023-12-19] MEDS: Sucralfate 1 GM TAB PO ×2 (08:08→11:43)
[2023-12-19] MEDS: Pantoprazole 40 MG TABCR PO (08:08)
[2023-12-19] MEDS: Famotidine 20 MG TAB PO (08:08)
[2023-12-19] MEDS: Cetirizine 10 MG TAB PO (08:08)
[2023-12-19] MEDS: Metoprolol CR 50 MG TABCR PO (08:08)
[2023-12-19] MEDS: Rosuvastatin 20 MG TAB 40 MG PO (08:09)
[2023-12-19] MEDS: Multivitamin TAB 1 TAB PO (08:09)
[2023-12-19] MEDS: Montelukast 10 MG TAB PO (08:09)
[2023-12-19] MEDS: Normal Saline Flush 10 ML SYR IVP (08:10)
[2023-12-19] MEDS: Tiotropium/Olodaterol 10 PUFF INHALER 2 PUFF IH (08:53)
[2023-12-19 08:54] VITALS: RESP 20; O2SAT 93
[2023-12-19] MEDS: Prochlorperazine 5 MG TAB PO (09:05)
--- NOTE | 2023-12-19 09:12 | W.PM.DS.N ---
Date of service: 12/19/23 Time of Service: 09:12 DS: Diagnosis Discharge Diagnosis (1) Acute upper GI bleed: Status: Acute Discharge Plan Disposition Patient Disposition: Home W/Home Health Services Condition: Improving Discharge Details Reason For Visit: Blood Loss Anemia Admit Date/Time: 12/18/23 10:44 Admit Provider: Efren Barros Attending Provider: Efren Barros Primary Care Provider: Janina Calloway Hospital Course Hospital Course: This 73 years old female patient with a past medical history of non-ST elevation AL with stent placement on 12/12/2023, type 2 diabetes mellitus, chronic obstructive pulmonary disease on 3 L of oxygen via nasal cannula at baseline presented to the emergency department at [facility] via EMS on 12/18/2023 for evaluation of sudden onset of shortness of breath and generalized fatigue. At the time patient reported lightheadedness and nausea; denied vomiting, fever, chills, chest pain, palpitation, abdominal pain, hematochezia, melena, pedal edema. The patient reported similar symptoms when both her non-STEMI occurred. Blood sugars were reported within range as per continuous glucose monitor. Upon discharge from [facility] on 12/13/2023, patient reported being treated for pneumonia during hospitalization but not currently taking any antibiotics at this time. In addition, the patient had an upper and lower endoscopy in November 2023 or at [facility] for gastrointestinal bleeding, no source was identified. Remarkable labs in the ED were H&H 7.5 and 24.3, BUN of 39, troponin 94 but with previous troponin at 766 at discharge from [facility]. COVID, flu and RSV were negative. Chest x-ray was remarkable for by basilar infiltrates but showing improvement from previous imaging. The EKG showed no changes consistent with acute ischemia. Stool testing revealed guaiac positive. In the ED, the patient was treated with DuoNebs with improvement of shortness of breath and aeration throughout the lungs cole. Dr. Tatum from general surgery was consulted and the patient was not found to be eligible for endoscopy at [facility] so recently after stent placement, anticoagulation but blood transfusion was considered and the patient was admitted by the hospitalist to the medical service for evaluation and management of blood loss anemia due to chronic gastrointestinal bleeding, shortness of breath, fatigue. During the stay, the patient received 1 unit of packed red blood cell transfusion. The patient remained on her 3 L of oxygen via nasal cannula. Symptoms of shortness of breath and fatigue improved post packed red blood cell transfusion. The patient chronic conditions were managed as per home med regimen. The patient had a clear liquid diet. The patient did not receive any aspart insulin from the lispro insulin sliding scale ordered in the hospital as the patient blood sugar remain below the parameters. We will hold the 12 to 18 units of lispro insulin ordered with each meal at home, but the patient will continue the Glargine insulin twice a day as ordered by [facility] endocrinology. The endocrinology note from 06/12/2023 read as followed:20 Units daily--pt instructed to increase by 2 units every 3 days if fasting BG consistently >150. Decrease 2 units if fasting BG consistently <90. The patient will continue with her oral medicine to control her diabetes. Resumption of high for insulin will be managed by primary care practitioner. The patient had complaints of nausea without vomiting and will be discharged home on disintegrating Ondansetron 4 mg tablet as needed every 8 hours. The patient will have to follow-up with her primary care practitioner within 1 to 2 weeks. The patient will have to have CBC completed within 7 days of discharge which resolved forwarded to the patient primary care practitioner. The patient reported falling at home 5 days prior to arrival to the ED. The patient was evaluated by physical therapy for safe discharge and recommendation was made for home health physical therapy. Home health nursing will also be ordered on discharge to follow-up with worsening of condition. The patient would benefit from a follow-up with gastroenterology. Home Meds and New Rx's Prescriptions: New ondansetron 4 mg tablet,disintegrating 4 mg PO Q8H PRNQty: 20 0RF Continued montelukast 10 mg tablet 10 mg PO DAILY insulin glargine [Lantus Solostar U-100 Insulin] 100 unit/mL (3 mL) insulin pen See Rx Instructions subcut BID Rx Instructions: 20 Units daily--pt instructed to increase by 2 units every 3 days if fasting BG consistently >150. Decrease 2 units if fasting BG consistently <90--[facility] [place]23 fluticasone propionate 50 mcg/actuation spray,suspension 2 spray intranasal DAILY Qty: 16 0RF Rx Instructions: administer into each nostril nitroglycerin 0.4 mg tablet, sublingual 0.4 mg sublingual Q5M PRN (Reason: chest pain) Qty: 30 6RF Rx Instructions: do not exceed 3 doses per episode (DME) lancets [Sure Comfort Lancets] 28 gauge misc 1 ea Miscellaneous DAILY Qty: 100 3RF Rx Instructions: Dx: E11.9 to maintain HbA1C less than 7% Stiolto Respimat 2.5-2.5 mcg/actuation mist 2 puff inhalation DAILY Qty: 4 12RF citalopram 10 mg tablet 20 mg PO QHS Qty: 60 1RF Rx Instructions: Trial, 10mg daily x 1 week Oxygen EACH NS At Night Qty: 2 0RF Patient Comments: 2 L at night and CPAP- patient states she wore these 11/10/17 multivitamin [Daily Multi-Vitamin] 1 EACH tablet 1 ea PO DAILY Patient Comments: patient states she took this roughly one week ago (DME) FreeStyle Basia 2 [place] Misc See Rx Instructions .ROUTE .MEDSUPPLY Qty: 1 0RF Rx Instructions: As directed Prolia 60 mg/mL syringe 60 mg subcut [id number] letrozole 2.5 mg tablet 2.5 mg PO DAILY Rx Instructions: 09/22/21 Hem/Onc prescribes. fluocinolone 0.01 % solution 1 applic topical BID (DME) Blood Glucose Test Strip See Rx Instructions .ROUTE .MEDSUPPLY Qty: 250 1RF Rx Instructions: As directed to check blood glucose three times daily. On insulin. Dispense covered brand (Freestyle Lite) fiber supplements 1 tab PO DAILY magnesium oxide 400 mg (241.3 mg magnesium) tablet See Rx Instructions PO .COMPLEX Qty: 180 3RF Rx Instructions: 400 mg AM and PM as per María Mendoza cetirizine 10 mg tablet 10 mg PO DAILY Qty: 90 3RF sucralfate [Carafate] 1 gram tablet 1 g PO QACHS Qty: 60 0RF (DME) FreeStyle Basia 2 Sensor Kit See Rx Instructions .ROUTE .MEDSUPPLY Qty: 6 3RF Rx Instructions: As directed hydrochlorothiazide 25 mg tablet 25 mg PO DAILY AM Qty: 90 3RF valsartan 160 mg tablet 160 mg PO DAILY Qty: 90 3RF Trulicity 0.75 mg/0.5 mL pen injector 1.5 mg subcut QWEEK Rx Instructions: 0.75mg weekly for 4 weeks--[facility] [place] 06/12/23 increased 1.5mg weekly 07/17/23 [facility] [place] rosuvastatin 40 mg tablet See Rx Instructions .ROUTE .COMPLEX Qty: 90 3RF Hold Instructions: Home Medication placed on hold at Doctor's office Dose Instruction: TAKE ONE TABLET BY MOUTH EVERY DAY Rx Instructions: TAKE ONE TABLET BY MOUTH EVERY DAY (DME) pen needle, diabetic [BD Marina 2nd Gen Pen Needle] 32 gauge x 5/32 needle See Rx Instructions .ROUTE .COMPLEX Qty: 400 3RF Dose Instruction: USE FOUR TIMES A DAY Rx Instructions: USE FOUR TIMES A DAY albuterol sulfate 2.5 mg /3 mL (0.083 %) solution for nebulization 2.5 mg inhalation Q4H PRN (Reason: shortness of breath or wheezing) Qty: 75 0RF metoprolol succinate 50 mg tablet extended release 24 hr See Rx Instructions .ROUTE .COMPLEX Qty: 90 3RF Dose Instruction: TAKE ONE TABLET BY MOUTH EVERY DAY Rx Instructions: TAKE ONE TABLET BY MOUTH EVERY DAY pantoprazole 40 mg tablet,delayed release (DR/EC) See Rx Instructions .ROUTE .COMPLEX Qty: 60 3RF Dose Instruction: TAKE ONE TABLET BY MOUTH EVERY DAY Rx Instructions: TAKE ONE TABLET BY MOUTH EVERY DAY metformin 500 mg tablet See Rx Instructions .ROUTE .COMPLEX Qty: 180 3RF Hold Instructions: Changed by Provider Dose Instruction: TAKE ONE TABLET BY MOUTH TWICE A DAY Rx Instructions: TAKE ONE TABLET BY MOUTH TWICE A DAY albuterol sulfate 90 mcg/actuation HFA aerosol inhaler 2 puff inhalation Q6H PRN (Reason: shortness of breath or wheezing) Qty: 8.5 12RF clopidogrel 75 mg tablet 75 mg PO DAILY clotrimazole 10 mg jihan 10 mg mucous membrane ONCE Jardiance 25 mg tablet 25 mg PO DAILY aspirin [Adult Aspirin Regimen] 81 mg tablet,delayed release (DR/EC) 81 mg PO DAILY Centrum Adults 12 mcg tablet,chewable 1 tab PO DAILY famotidine 40 mg tablet 20 mg PO DAILY Qty: 60 0RF Held insulin lispro [Humalog KwikPen Insulin] 100 unit/mL insulin pen 12 unit subcut TID Hold Instructions: Resume on 12/26/23. As per PCP Patient Comments: 18 Units with meals--[facility] [place] 06/12/23 12 Units with meals--[facility] [place] 07/17/23 Discharge Instructions Stand Alone Forms: Nursing Discharge Form Referrals: Janina Calloway NP [Primary Care Provider] - 01/14/24 5:45 pm (you are in the cancellation list ) Activity:: Activity as Tolerated Equipment/Supplies:: No Equipment Needed Diet:: diabetic heart Healthy as tolerated Discharge Orders Discharge Orders: Discharge Order (Routine); Ordered 12/19/23 Ordered By: Eli Lin Other Ambulatory Orders: Complete Blood Count w/Diff (Routine) Timeframe: 20231226 Facility: [facility] - Location: Laboratory Outpatient - [facility] Ordered By: Eli Lin DS: Summary Time Spent with Patient providing and/or coordinating discharge services: Greater than 30 minutes Status at Discharge Functional status at discharge: uses cane/walker Overall status at discharge: patient is progressing back to baseline Mental Status: mental status grossly normal Speech and Movement: speech and movement normal Mood: congruent mood Affect: normal affect Quality:SDOH Health Related Social Needs: No Data to Display Referrals and interventions: Pt would like home health service if applicable. her is not able to care for her Exam Narrative Exam Narrative: Constitutional The patient is in bed comfortable but tired and cooperative during the interview. The patient is without acute distress. HENMT: Head is atraumatic, facial structures with normal appearance Neck: Normal ROM, no meningeal signs Neuro:alert and oriented to self, person, place, time and situation. No neurological focal deficit. Chest:Chest is symmetrical and normal appearance Resp: Normal respiratory pattern, Oxygen at baseline, unlabored breathing, clear upper bilaterally with decreased bibasilar breath sounds Cardio: regular rhythm,SR, HR 67-88 S1, S2, no murmur, capillary refill<3 sec., bilateral radial and dorsalis pedis pulses are positive GI: Abdomen is not distended, soft and non tender, bowel sounds are present : Negative Costovertebral angle tenderness, no bladder distension Back/spine/Pelvis: No back tenderness, normal alignment Integumentary: No skin lesions or rash Extremities: strength 5/5 to bilateral lower and upper extremities Psych: RASS 0, congruent mood and normal affect. Psych Mental Status: mental status grossly normal Speech and Movement: speech and movement normal Mood: congruent mood Affect: normal affect DS: Data Vitals/I&O Vitals and I&O: Vital Signs Temperature 36.4 C L 12/19/23 07:32 Temperature Source Tympanic 12/19/23 07:32 Pulse 88 12/19/23 07:32 Pulse Rhythm Regular 12/19/23 08:21 Pulse 78 12/18/23 14:01 Respiratory Rate 18 12/19/23 07:32 Respiratory Effort Normal, Non-Labored 12/19/23 08:21 Respiratory Depth Normal 12/19/23 08:21 Respiratory Pattern Normal 12/19/23 08:21 Blood Pressure 127/44 L 12/19/23 07:32 Blood Pressure Mean 83 12/18/23 14:01 Pulse Oximetry 93 12/19/23 08:54 Oxygen Delivery Method Nasal Cannula 12/19/23 08:54 Oxygen Flow Rate 3 12/19/23 08:54 Pain Level 0 12/19/23 08:23 Comment Pt lying on left side, reports this position makes it easier to breathe 12/18/23 14:22 Intake & Output 12/18/23 12/18/23 12/19/23 11:59 23:59 11:59 Intake Total 10 / 610 600 / 610 160 / 160 Output Total 600 / 600 500 / 500 Balance -340 / -340 Weight 66.224 kg 64.5 kg Intake: IV Oral 150 / 150 Blood Product 500 / 500 Rbc Leuko Reduced Unit 500 / 500 [id number] Other 100 / 100 Rbc Leuko Reduced Unit 100 / 100 [id number] Output: Urine 600 / 600 500 / 500 Other: Urine Color Yellow Yellow Urine Appearance Clear Clear Comment two voids. Stool Occult Blood Positive Positive Stool Size Large Voiding Methods Bedside Commode Bedside Commode Diaper Data Completed and Pending Labs on day of discharge: Labs from last 24 hours 12/19/23 12/18/23 12/18/23 06:14 18:25 11:33 WBC 6.34 RBC 3.10 L Hgb 8.9 L 8.9 L Hct 28.7 L 28.3 L MCV 93 MCH 28.7 MCHC 31.0 L RDW 16.0 H Plt Count 245 MPV 9.1 Immature Gran % 1.6 Neutrophils % 65.9 Lymphocytes % 6.8 Monocytes % 21.0 Eosinophils % 4.4 Basophils % 0.3 Nucleated RBC % 0.5 H Absolute Neutrophils 4.18 Absolute Lymphocytes 0.43 L Absolute Monocytes 1.33 H Absolute Eosinophils 0.28 Absolute Basophils 0.02 Sodium 135 L Potassium 4.9 Chloride 97 L Carbon Dioxide 35.4 H Anion Gap 2.6 L BUN 30 H Creatinine 1.1 H Est GFR (CKD-EPI 2020) 52.73 Glucose 112 H Calcium 9.7 Magnesium Total Bilirubin AST ALT Alkaline Phosphatase Troponin I 72 H* 97 H* Cancelled NT-Pro-B Natriuret Pep Total Protein Albumin COVID-19 Source SARS-CoV-2 (PCR) Influenza Type A (PCR) Influenza Type B (PCR) RSV (PCR) Patient ABO/Rh Antibody Screen Crossmatch 12/18/23 12/18/23 10:15 08:47 WBC RBC Hgb Hct MCV MCH MCHC RDW Plt Count MPV Immature Gran % Neutrophils % Lymphocytes % Monocytes % Eosinophils % Basophils % Nucleated RBC % Absolute Neutrophils Absolute Lymphocytes Absolute Monocytes Absolute Eosinophils Absolute Basophils Sodium 137 Potassium 5.1 Chloride 98 Carbon Dioxide 34.3 H Anion Gap 4.7 BUN 39 H Creatinine 1.3 H Est GFR (CKD-EPI 2020) 43.15 Glucose 83 Calcium 10.4 H Magnesium 2.3 Total Bilirubin 0.3 AST 74 H ALT 88 H Alkaline Phosphatase 53 Troponin I 94 H* NT-Pro-B Natriuret Pep 2068 H Total Protein 7.4 Albumin 2.4 L COVID-19 Source Nasopharynx SARS-CoV-2 (PCR) Negative Influenza Type A (PCR) Negative Influenza Type B (PCR) Negative RSV (PCR) Negative Patient ABO/Rh A Positive Antibody Screen NEGATIVE Crossmatch See Detail PFSH All Active Problems Acute upper GI bleed (Acute) History of heart artery stent (Chronic) LAD Stent 12/13/2023 at [facility] in [facility] Non-ST elevation (NSTEMI) myocardial infarction (Acute) Pneumonia (Acute) Anxiety (Chronic) Adhesive capsulitis of left shoulder (Acute) Sepsis (Acute) Pneumonia (Acute ~09/2023) Acute hypoxemic respiratory failure (Acute) Kaylee rash of groin (Acute) Arteriovenous malformation (Acute ~06/2023) 06/27/23 Gastro Former smoker (Acute) Asymptomatic menopausal state (Acute) [facility] [place] 06/12/23 Type 2 diabetes mellitus with hyperglycemia, with long-term current use of insulin (Acute) [facility] [place] 06/12/23 Ductal carcinoma in situ (DCIS) of left breast (Acute) [facility] [place]c note 06/05/23 Iron deficiency anemia secondary to blood loss (chronic) (Acute) 05/01/23 Hem/Onc GI bleed (Chronic) Demand ischemia (Acute) Chronic respiratory failure with hypoxia (Acute) Anemia (Chronic) Esophagitis determined by endoscopy (Acute ~12/2022) Compression fracture of L3 vertebra (Acute ~2021) Mucous cyst of digit of left hand (Acute ~12/2022) s/p excision of mucous cyst DOS: 01/08/23 Trigger finger, left middle finger (Acute) 40 mg Depo-Medrol injection: 11/12/2022 s/p trigger release DOS: 01/08/23 History of breast cancer (Acute) Dermatitis, seborrheic (Acute) 07/06/22 Dr Moreno Anemia, macrocytic (Acute) 05/03/22 Hem/Onc Note Essential hypertension (Acute 05/16/04) Microalbuminuria due to type 2 diabetes mellitus (Acute) Hyperlipidemia (Acute 03/18/07) Type 2 diabetes mellitus, with long-term current use of insulin (Acute ~1999) Renal artery stenosis, [place], bilateral (Chronic) [facility] [place]; most recent OV 06/01/21 Atherosclerosis of both carotid arteries (Chronic 11/12/16) [facility] [place]; most recent OV 06/01/21; Recommend annual carotid US COPD, very severe (Chronic) [facility] Pulm O2 dependent ASCVD (arteriosclerotic cardiovascular disease) (Chronic) [facility] [place]/01/21 Vascular note: Asymptomatic bilateral carotid artery stenosis Non-ST elevation (NSTEMI) myocardial infarction (Acute ~12/2020) S/p proximal LCX stent placement 01/27/21 [facility] [place] CKD (chronic kidney disease) (Chronic) Obstructive sleep apnea (Chronic 03/02/14) Bipap w/ 2L 02 09/06/2019 Medical History Esophageal thrush Allergic contact dermatitis due to other agents Malignant neoplasm of unspecified site of left female breast (~10/2021) 11/06/21 Dr Mcgill ([facility] Rad/Onc Office); Radiation Therapy planned 12/21/21-hormone receptor positive Gross hematuria Vulvar irritation Breast cancer in female (~05/2021) R 2002, L 2003 s/p B/L partial mastectomy, XRT, & tamoxifen. 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) Estrogen receptor positive s/p RXT, surgical removal of tumor Enteritis Back pain Post-menopausal bleeding Pelvic pain Pericarditis (~12/2020) S/p AL Vaginitis and vulvovaginitis, unspecified Tobacco use disorder 30-50 PY, QUIT 1999 Compression fracture of lumbar vertebra (03/14/17) Depression (11/30/02) s/p of brother (on SSRI for short time) Solitary pulmonary nodule (12/22/15) Incidental finding of 6 mm pulm nodule RLL on 11/07/[address] with 6 month f/u chest CT recommended; 04/2016 6-month f/u chest CT: resolution of nodule Pneumonia Spinal stenosis (02/04/14) Multi level on MRI Reflux esophagitis (07/16/12) LA GRADE B , EGD W/ BX 05/04/15 Osteopenia (02/14/16) DEXA 02/14/16: Fem neck t-score -1.2 --> WHO FRAX major osteoporotic 13% & hip fx 1.3% risk --> does not qualify for bisphosphonates --> Ca & vit D 03/2017 L3 compression fx --> re-calc WHO FRAX major osteoporotic 21% & hip fx 2.3% risk --> now qualifies for bisphosphonate tx, started 03/2017 Probable allergic rxn to Alendronate (1st pill Sat, Hiv Th and stayed thru today (but no worsening), 07/05. Agree to STOP for now. Leg cramps (04/01/14) Low Mg+ --> supplementation helped, but caused diarrhea; handout on dietary Mg+ given Iron deficiency anemia (01/02/17) S/p colo & EGD 05/2015, then capsule endoscopy & push enteroscopy with no definitive etiology identified; 11/14/2017: repeat colonoscopy (due to return of anemia) showing a colonic angioectasia, which may have been source of bleeding & anemia (no overt bleeding found). Fe supplementation & monitor 10/29/22 [place]en by [facility] [place] Intraabdominal calcification (11/14/15) Incidental finding on CT 2 mm between bladder and uterus, no further eval required, AOC Hypomagnesemia (03/04/17) Hiatal hernia (02/11/14) Smaller portions Endoscopy 10/04 anemia (nothing found), [facility] [place] Heart murmur 07/11/2016 echo: mild-moderate mitral regurgitation DJD (degenerative joint disease) (02/04/14) Lumbar spine--multiple level on MRI Surgery 10/2011, [facility] Dr. 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/21/16 [facility] [place] consult: moderate stenosis, not source of clinical pathology, & no intervention or further evaluation indicated Anemia (02/11/14) Suspect chronic dz/bone marrow suppression s/p breast CA tx (radiation); s/p GI workup (possible AVMs?), NL B12/folate, elevated Epo, NL retic count; chronic iron supplementation Allergic rhinitis Superior mesenteric artery stenosis Chronic GI bleeding Headache Surgical History H/O colonoscopy (~11/02/22) 11/02/22 , 1 cecal polyp removed - f/u 10 years 11/12/23[place] [place]/O endoscopy (~06/21/22) 11/02/22 Upper GI endoscopy 11/12/23[place] [place] non-bleeding angioectasias-biopsies taken H/O partial mastectomy (~10/26/21) Left breast S/P breast biopsy, left (05/09/21) u/s guided Core Bx History of hysterectomy, supracervical Status post coronary artery stent placement (~01/27/21) H/O laminectomy (~10/06/12) L5S1 Dr. Jarrod Ballard H/O laminectomy L5S1 Tooth Extractions Multiple Oophrectomy, Right (~2007) For unknown reason Extraction of cataract left eye surgical removal with intraocular lens implant. Dr Agee Breast, Lumpectomy (~2003) B/L for breast CA Biopsy, Lymph Node (~2003) (L) axilla for breast CA Family History Sister Breast cancer Mother , 89 Alzheimer's dementia Breast cancer Father , AGE 75 Alcohol abuse Cirrhosis Sister Neoplasm uterine CA Sister Heart disease Brother Heart disease Niece Breast cancer Social History Smoking/Tobacco Use Status: Former Tobacco Use tobacco type: cigarettes Quit Date: 09/02/95 Tobacco: How many years used: 25 Smoking risk assessment performed?: Yes Alcohol Intake: former Details: none Drug use: Never Substance use type: does not use Adopted: No Caregiver/Support person: No Foster care: No Household members: spouse Housing: house Number of Children: 4 Communication Needs: None Pets and animals: No Current gender identity: female What type of physical activity do you participate in: regular exercise Duration: < 15 minutes/day Frequency: 3-4 times per week Mell/Tenriism: Lutheran Seatbelt use: always Drive intox or ride w/intox local 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: No Working smoke detector in home: Yes Fire extinguisher in home: Yes Carbon monox detector in home: Yes Do you feel safe at home: Yes Do you feel safe in your relationship?: Yes History History Para Hx # Term Pregnancies Multiple births Hx # Pregnancies Ectopic pregnancies AB induced Hx Number of Living Children 4 AB spontaneous Time Spent with Patient Time Spent with Patient: >85 minutes Time was spent: preparing to see the patient(eg.review tests), obtaining and/or reviewing separately otained hiistory, ordering medications,tests, procedures, referring, communicating with other health care process manager, indepentently interpreting results, counseling the patient and care coordination
--- NOTE | 2023-12-19 09:47 | INITIAL_ITS ---
Date of service: 12/19/23 Time of Service: 10:09 Care Management Initial Assmt Initial Assessment REASON FOR HOSPITALIZATION:: Blood loss anemia PREVIOUS FUNCTIONAL STATUS/SOCIAL/FAMILY SUPPORTS:: Nahed lives in [place] with her , Isaac. She has four children, three sons and a daughter, as well as several grandchildren. 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 She has been independent with ADL's at baseline until her recent hospitalization at [facility], after which she has required some support. CURRENT FUNCTIONAL STATUS:: Nahed was sitting up in her room when CM met with her. CM also spoke to her and sister, who inquired about home health services for Nahed, stating that she has not been herself since returning home from [facility] about a week ago. Per provider, Nahed is stable and medically cleared for discharge. CM discussed palliative care with Nahed, who agreed to having a Palliative jail visit; CM scheduled one for 01/30/24 between 8:30-9:30am. Nahed will have new HH RN and PT, as well as close PCP follow up. CM will continue to follow. ADVANCE DIRECTIVES:: On file; Maria Del Carmen Venegas (daughter) listed as HCA; Efren Eisenberg (son) listed as alternate agent. Has patient been provided with info about the portal/API?: Yes Did the patient sign up for the portal?: No CODE STATUS:: Full Code INSURANCE COVERAGE / FINANCIAL ISSUES:: MCR. B/C supplement. CURRENT HOME/COMMUNITY SERVICES/EQUIPMENT:: No community services. Nahed has home O2 through [employer]. PRIMARY CARE PHYSICIAN:: Janina Calloway POTENTIAL DISCHARGE NEEDS:: Evaluations for further needs, follow up ap pointments. PATIENT/FAMILY EDUCATION NEEDS:: Review discharge instructions and limitations, discussion of self care needs including ask me three. ANTICIPATED BARRIERS TO DISCHARGE:: None. TRANSPORTATION:: Via private vehicle by her . PLAN:: Anticipate Nahed will return home once medically cleared with new orders for HH PT. Her will drive her home via private vehicle. She will follow up with her PCP and discharge plan of care. CM will continue to follow. PFSH All Active Problems Acute upper GI bleed (Acute) History of heart artery stent (Chronic) LAD Stent 12/13/2023 at [facility] in [facility] Non-ST elevation (NSTEMI) myocardial infarction (Acute) Pneumonia (Acute) Anxiety (Chronic) Adhesive capsulitis of left shoulder (Acute) Sepsis (Acute) Pneumonia (Acute ~09/2023) Acute hypoxemic respiratory failure (Acute) Kaylee rash of groin (Acute) Arteriovenous malformation (Acute ~06/2023) 06/27/23 Gastro Former smoker (Acute) Asymptomatic menopausal state (Acute) [facility] Endo Note 06/12/23 Type 2 diabetes mellitus with hyperglycemia, with long-term current use of insulin (Acute) [facility] Endo Note 06/12/23 Ductal carcinoma in situ (DCIS) of left breast (Acute) [facility] Hem/Onc note 06/05/23 Iron deficiency anemia secondary to blood loss (chronic) (Acute) 05/01/23 Hem/Onc GI bleed (Chronic) Demand ischemia (Acute) Chronic respiratory failure with hypoxia (Acute) Anemia (Chronic) Esophagitis determined by endoscopy (Acute ~12/2022) Compression fracture of L3 vertebra (Acute ~2021) Mucous cyst of digit of left hand (Acute ~12/2022) s/p excision of mucous cyst DOS: 01/08/23 Trigger finger, left middle finger (Acute) 40 mg Depo-Medrol injection: 11/12/2022 s/p trigger release DOS: 01/08/23 History of breast cancer (Acute) Dermatitis, seborrheic (Acute) 07/06/22 Dr Moreno Anemia, macrocytic (Acute) 05/03/22 Hem/Onc Note Essential hypertension (Acute 05/16/04) Microalbuminuria due to type 2 diabetes mellitus (Acute) Hyperlipidemia (Acute 03/18/07) Type 2 diabetes mellitus, with long-term current use of insulin (Acute ~1999) Renal artery stenosis, [place], bilateral (Chronic) [facility] Vascular Surgery; most recent OV 06/01/21 Atherosclerosis of both carotid arteries (Chronic 11/12/16) [facility] Vascular Surgery; most recent OV 06/01/21; Recommend annual carotid US COPD, very severe (Chronic) [facility] Pulm O2 dependent ASCVD (arteriosclerotic cardiovascular disease) (Chronic) [facility] 06/01/21 Vascular note: Asymptomatic bilateral carotid artery stenosis Non-ST elevation (NSTEMI) myocardial infarction (Acute ~12/2020) S/p proximal LCX stent placement 01/27/21 [facility] CKD (chronic kidney disease) (Chronic) Obstructive sleep apnea (Chronic 03/02/14) Bipap w/ 2L 02 09/06/2019 Medical History Esophageal thrush Allergic contact dermatitis due to other agents Malignant neoplasm of unspecified site of left female breast (~10/2021) 11/06/21 Dr Mcgill ([facility] Rad[facility]Onc [facility]); Radiation Therapy planned 12/21/21-hormone receptor positive Gross hematuria Vulvar irritation Breast cancer in female (~05/2021) R 2002, L 2003 s/p B/L partial mastectomy, XRT, & tamoxifen. 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) Estrogen receptor positive s/p RXT, surgical removal of tumor Enteritis Back pain Post-menopausal bleeding Pelvic pain Pericarditis (~12/2020) S/p MS Vaginitis and vulvovaginitis, unspecified Tobacco use disorder 30-50 PY, QUIT 1999 Compression fracture of lumbar vertebra (03/14/17) Depression (11/30/02) s/p of brother (on SSRI for short time) Solitary pulmonary nodule (12/22/15) Incidental finding of 6 mm pulm nodule RLL on 11/07/[address] with 6 month f/u chest CT recommended; 04/2016 6-month f/u chest CT: resolution of nodule Pneumonia Spinal stenosis (02/04/14) Multi level on MRI Reflux esophagitis (07/16/12) LA GRADE B , EGD W/ BX 05/04/15 Osteopenia (02/14/16) DEXA 02/14/16: Fem neck t-score -1.2 --> WHO FRAX major osteoporotic 13% & hip fx 1.3% risk --> does not qualify for bisphosphonates --> Ca & vit D 03/2017 L3 compression fx --> re-calc WHO FRAX major osteoporotic 21% & hip fx 2.3% risk --> now qualifies for bisphosphonate tx, started 03/2017 Probable allergic rxn to Alendronate (1st pill Sat, Hiv and stayed thru today (but no worsening), 07/05. Agree to STOP for now. Leg cramps (04/01/14) Low Mg+ --> supplementation helped, but caused diarrhea; handout on dietary Mg+ given Iron deficiency anemia (01/02/17) S/p colo & EGD 05/2015, then capsule endoscopy & push enteroscopy with no definitive etiology identified; 11/14/2017: repeat colonoscopy (due to return of anemia) showing a colonic angioectasia, which may have been source of bleeding & anemia (no overt bleeding found). Fe supplementation & monitor 10/29/22 Seen by [facility] Hem/Onc Intraabdominal calcification (11/14/15) Incidental finding on CT 2 mm between bladder and uterus, no further eval required, AOC Hypomagnesemia (03/04/17) Hiatal hernia (02/11/14) Smaller portions Endoscopy 10/04 anemia (nothing found), [facility] Heart murmur 07/11/2016 echo: mild-moderate mitral regurgitation DJD (degenerative joint disease) (02/04/14) Lumbar spine--multiple level on MRI Surgery 10/2011, [facility] Dr. 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/21/16 [facility] Vascular Surgery consult: moderate stenosis, not source of clinical pathology, & no intervention or further evaluation indicated Anemia (02/11/14) Suspect chronic dz/bone marrow suppression s/p breast CA tx (radiation); s/p GI workup (possible AVMs?), NL B12/folate, elevated Epo, NL retic count; chronic iron supplementation Allergic rhinitis Superior mesenteric artery stenosis Chronic GI bleeding Headache Surgical History H/O colonoscopy (~11/02/22) 11/02/22 , 1 cecal polyp removed - f/u 10 years 11/12/23-[facility] H/O endoscopy (~06/21/22) 11/02/22 Upper GI endoscopy 11/12/23-[facility]-3 non-bleeding angioectasias-biopsies taken H/O partial mastectomy (~10/26/21) Left breast S/P breast biopsy, left (05/09/21) u/s guided Core Bx History of hysterectomy, supracervical Status post coronary artery stent placement (~01/27/21) H/O laminectomy (~10/06/12) L5S1 Dr. Jarrod Ballard H/O laminectomy L5S1 Tooth Extractions Multiple Oophrectomy, Right (~2007) For unknown reason Extraction of cataract left eye surgical removal with intraocular lens implant. Dr Agee Breast, Lumpectomy (~2003) B/L for breast CA Biopsy, Lymph Node (~2003) (L) axilla for breast CA Family History Sister Breast cancer Mother , 89 Alzheimer's dementia Breast cancer Father , AGE 75 Alcohol abuse Cirrhosis Sister Neoplasm uterine CA Sister Heart disease Brother Heart disease Niece Breast cancer Social History Smoking/Tobacco Use Status: Former Tobacco Use tobacco type: cigarettes Quit Date: 09/02/95 Tobacco: How many years used: 25 Smoking risk assessment performed?: Yes Alcohol Intake: former Details: none Drug use: Never Substance use type: does not use Adopted: No Caregiver/Support person: No Foster care: No Household members: spouse Housing: house Number of Children: 4 Communication Needs: None Pets and animals: No Current gender identity: female What type of physical activity do you participate in: regular exercise Duration: < 15 minutes/day Frequency: 3-4 times per week Mell/Denominational: Religious Seatbelt use: always Drive intox or ride w/intox driver helper: No Working smoke detector in home: Yes Fire extinguisher in home: Yes Carbon monox detector in home: Yes Do you feel safe at home: Yes Do you feel safe in your relationship?: Yes History History Para Hx # Term Pregnancies Multiple births Hx # Pregnancies Ectopic pregnancies AB induced Hx Number of Living Children 4 AB spontaneous SDOH(Care Management) Screening Will the Patient Participate in the Screening?: Yes Do you worry about having a steady place to live?: no Problems where you live: no known problems In the past 12 months, have you had to go without electric, gas, oil or water in your home?: no Have you or anyone in your house had to go without enough food to eat?: no Has lack of transportation kept you from medical appointments or from doing things needed for daily living?: no Has anyone in your support network made you feel unsafe for any reason?: no Social Determinants of Health Comments(SDOH Details): Pt lives with in mobile home
[2023-12-19 10:25] LABS: Lab Add On Test DONE
[2023-12-19 10:46] LABS: Iron 26 ug/dL (50-170); Total Iron Binding Capacity 328 ug/dL (250-450); Transferrin Sat 8 % (15-50)
--- NOTE | 2023-12-19 11:01 | IN_ITS ---
PT Notes Visit Reasons: Blood Loss Anemia Physical Therapy Inpatient Initial Evaluation Date: 12/19/2023 Referring Doctor: Eli Lin NP PT Orders: PT CONSULT: Safety Consult for D/C Precautions: Fall. Standard. Activity as tolerated. Patient Profile/Admitting Diagnosis: Delaney is a 72-year-old female with sudden onset generalized fatigue lightheadedness that led to a fall, nausea, and shortness of breath leading to her presentation to the ED on 12/18/2023. She is admitted to [facility] of care for management of acute upper GI bleed, COPD, history of heart arterial stent, NSTEMI, type II DM, essential hypertension, hyperlipidemia, CKD, and NIKKI. Referral sent for PT to determine safe discharge destination for patient. PMHX: All Active Problems Acute upper GI bleed (Acute) History of heart artery stent (Chronic) LAD Stent 12/13/2023 at [facility] in [facility] Non-ST elevation (NSTEMI) myocardial infarction (Acute) Pneumonia (Acute) Anxiety (Chronic) Adhesive capsulitis of left shoulder (Acute) Sepsis (Acute) Pneumonia (Acute ~09/2023) Acute hypoxemic respiratory failure (Acute) Kaylee rash of groin (Acute) Arteriovenous malformation (Acute ~06/2023) 06/27/23 Gastro Former smoker (Acute) Asymptomatic menopausal state (Acute) [facility] Endo Note 06/12/23 Type 2 diabetes mellitus with hyperglycemia, with long-term current use of insulin (Acute) [facility] Endo Note 06/12/23 Ductal carcinoma in situ (DCIS) of left breast (Acute) [facility] Hem/Onc note 06/05/23 Iron deficiency anemia secondary to blood loss (chronic) (Acute) 05/01/23 Hem/OncGI bleed (Chronic) Demand ischemia (Acute) Chronic respiratory failure with hypoxia (Acute) Anemia (Chronic) Esophagitis determined by endoscopy (Acute ~12/2022) Compression fracture of L3 vertebra (Acute ~2021) Mucous cyst of digit of left hand (Acute ~12/2022) s/p excision of mucous cyst DOS: 01/08/23 Trigger finger, left middle finger (Acute) 40 mg Depo-Medrol injection: 11/12/2022 s/p trigger release DOS: 01/08/23 History of breast cancer (Acute) Dermatitis, seborrheic (Acute) 07/06/22 Dr Lozano, macrocytic (Acute) 05/03/22 Hem/Onc Note Essential hypertension (Acute 05/16/04) Microalbuminuria due to type 2 diabetes mellitus (Acute) Hyperlipidemia (Acute 03/18/07) Type 2 diabetes mellitus, with long-term current use of insulin (Acute ~1999) Renal artery stenosis, [place], bilateral (Chronic) [facility] Vascular Surgery; most recent OV 06/01/21 Atherosclerosis of both carotid arteries (Chronic 11/12/16) [facility] Vascular Surgery; most recent OV 06/01/21; Recommend annual carotid US COPD, very severe (Chronic) [facility] Pulm O2 dependent ASCVD (arteriosclerotic cardiovascular disease) (Chronic) [facility] 06/01/21 Vascular note: Asymptomatic bilateral carotid artery stenosis Non-ST elevation (NSTEMI) myocardial infarction (Acute ~12/2020) S/p proximal LCX stent placement 01/27/21 [facility]) (Chronic) Obstructive sleep apnea (Chronic 03/02/14) Bipap w/ 2L 02 09/06/2019 Medical History Esophageal thrush Allergic contact dermatitis due to other agents Malignant neoplasm of unspecified site of left female breast (~10/2021) 11/06/21 Dr Mcgill ([facility] Rad/Onc Office); Radiation Therapy planned 12/21/21-hormone receptor positive Gross hematuria Vulvar irritation Breast cancer in female (~05/2021) R 2002, L 2003 s/p B/L partial mastectomy, XRT, & tamoxifen. 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) Estrogen receptor positive s/p RXT, surgical removal of tumorEnteritis Back pain Post-menopausal bleeding Pelvic pain Pericarditis (~12/2020) S/p CA Vaginitis and vulvovaginitis, unspecified Tobacco use disorder 30-50 PY, QUIT 1999 Compression fracture of lumbar vertebra (03/14/17) Depression (11/30/02) s/p of brother (on SSRI for short time) Solitary pulmonary nodule (12/22/15) Incidental finding of 6 mm pulm nodule RLL on 11/07/[address] with 6 month f/u chest CT recommended; 04/2016 6-month f/u chest CT: resolution of nodule Pneumonia Spinal stenosis (02/04/14) Multi level on MRI Reflux esophagitis (07/16/12) LA GRADE B , EGD W/ BX 05/04/15 Osteopenia (02/14/16) DEXA 02/14/16: Fem neck t-score -1.2 --> WHO FRAX major osteoporotic 13% & hip fx 1.3% risk --> does not qualify for bisphosphonates --> Ca & vit D 03/2017 L3 compression fx --> re-calc WHO FRAX major osteoporotic 21% & hip fx 2.3% risk --> now qualifies for bisphosphonate tx, started 03/2017 Probable allergic rxn to Alendronate (1st pill Sat, Hiv Th and stayed thru today (but no worsening), 07/05. Agree to STOP for now. Leg cramps (04/01/14) Low Mg+ --> supplementation helped, but caused diarrhea; handout on dietary Mg+ given Iron deficiency anemia (01/02/17) S/p colo & EGD 05/2015, then capsule endoscopy & push enteroscopy with no definitive etiology identified; 11/14/2017: repeat colonoscopy (due to return of anemia) showing a colonic angioectasia, which may have been source of bleeding & anemia (no overt bleeding found). Fe supplementation & monitor 10/29/22 Seen by [facility] Hem/OncIntraabdominal calcification (11/14/15) Incidental finding on CT 2 mm between bladder and uterus, no further eval required, AOC Hypomagnesemia (03/04/17) Hiatal hernia (02/11/14) Smaller portions Endoscopy 10/04 anemia (nothing found), [facility] Heart murmur 07/11/2016 echo: mild-moderate mitral regurgitation DJD (degenerative joint disease) (02/04/14) Lumbar spine--multiple level on MRI Surgery 10/2011, [facility] Dr. 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/21/16 [facility] Vascular Surgery consult: moderate stenosis, not source of clinical pathology, & no intervention or further evaluation indicated Anemia (02/11/14) Suspect chronic dz/bone marrow suppression s/p breast CA tx (radiation); s/p GI workup (possible AVMs?), NL B12/folate, elevated Epo, NL retic count; chronic iron supplementation Allergic rhinitis Superior mesenteric artery stenosis Chronic GI bleeding Headache Surgical History H/O colonoscopy (~11/02/22) 11/02/22 , 1 cecal polyp removed - f/u 10 years 11/12/23-[facility] H/O endoscopy (~06/21/22) 11/02/22 Upper GI endoscopy 11/12/23-[facility]-3 non-bleeding angioectasias-biopsies taken H/O partial mastectomy (~10/26/21) Left breastS/P breast biopsy, left (05/09/21) u/s guided Core Bx History of hysterectomy, supracervical Status post coronary artery stent placement (~01/27/21) H/O laminectomy (~10/06/12) L5S1 Dr. Jarrod Ballard H/O laminectomy L5S1 Tooth Extractions Multiple Oophrectomy, Right (~2007) For unknown reason Extraction of cataract left eye surgical removal with intraocular lens implant. Dr Agee Breast, Lumpectomy (~2003) B/L for breast CA Biopsy, Lymph Node (~2003) (L) axilla for breast CA Social History/Home Situation: Lives with in a mobile home with 3-4 steps to enter with rails on both sides. Has been independent with all mobility ADL performance in the past 3 to 6 months examined for the past week where he started using her walker again due to increasing weakness and lightheadedness. Sister Venus and family lives next to them. Equipment Owned/DME: [facility] Subjective: Feels much better today. Mildly lightheaded when she sat up but felt better later on in the session. Objective: General Observation: Resting in bed. Telemetry monitoring in place. IV access through right UE. Mental Status: Alert and oriented as to person, place, time, and purpose. Able to pay attention, focus, and respond appropriately. Pain: none reported Vital Signs: After walking 150 feet BP 134/68 mmHg, heart rate 77 bpm, oxygen saturation 91% on 3 L via NC ROM: Right Upper Extremity: Shoulder Flexion WFL. Shoulder abduction WFL. Elbow flexion WFL. Wrist flexion WFL. Functional opening and closing of hand WFL. Left Upper Extremity: Shoulder Flexion allows only up to 80 degrees. Shoulder abduction allows only up to 80 degrees. Elbow flexion WFL. Wrist flexion WFL. Functional opening and closing of hand WFL. Right Lower Extremity: Hip flexion WFL. Hip abduction WFL. Knee flexion WFL. Ankle dorsiflexion WFL. Ankle plantarflexion WFL. Left Lower Extremity: Hip flexion WFL. Hip abduction WFL. Knee flexion WFL. Ankle dorsiflexion WFL. Ankle plantarflexion WFL. Strength: Right Upper Extremity: Shoulder flexors 4/5. Shoulder abductors 4/5. Elbow flexors 5/5. Elbow extensors 5/5. Amusement Ride Inspector strong. Left Upper Extremity: Shoulder flexors 3-/5. Shoulder abductors 3-/5. Elbow flexors 4/5. Elbow extensors 4/5. Amusement Ride Inspector strong. Right Lower Extremity: Hip flexors 4/5. Hip abductors 4/5. Knee flexors 5/5. Knee extensors 4/5. Ankle dorsiflexors 4-/5. Ankle plantarflexors 4-/5. Left Lower Extremity: Hip flexors 4/5. Hip abductors 4/5. Knee flexors 5/5. Knee extensors 4/5. Ankle dorsiflexors 4-/5. Ankle plantarflexors 4-/5. Bed Mobility/Transfers: Minimal cueing provided for use of B hands as needed for support, movement sequence, AD management, and posture to reduce fall risk and minimize pain report Rolling independent Supine to sit independent with FWW Sit to supine independent with FWW Sit to stand stand by assist with FWW Stand to sit stand by assist with FWW Gait: Facilitated safe and correct performance of level surface ambulation covering a distance of 150 feet +100 feet using front-wheel walker with reciprocal step through gait pattern requiring only standby assist and wheelchair follow of sister in case patient got lightheaded. Denied headache, chest pain, and lightheadedness throughout session. Decreased gait speed. Balance: Static Sitting: Normal Dynamic Sitting: Normal Static Standing: Fair Dynamic Standing: Fair Special Tests: Mobility Limitations Standardized Measure [facility] 6 clicks Basic Mobility Inpatient Short Form: Raw Score: 23 CMS Score: 11% deficit Informed Consent/Education: Patient was instructed in purpose of PT consult and plan of care. Agreeable to proceed with established PT POC to achieve personal goals. Assessment: Patient presents with clinical signs and symptoms consistent with current/admitting diagnoses that have resulted to mobility limitations, gait instability, generalized weakness, and overall ADL decline as demonstrated by the following impairment level findings: 1. Decreased strength to L shoulder major muscle groups 2. Impaired sitting/standing balance 3. Impaired activity tolerance 4. Limitation of joint range of motion in L shoulder from pre-existing frozen shoulder Impairments are contributing to the following functional limitations: 1. Decline in bed mobility skills 2. Decline in transfer skills 3. Difficulty with ambulation without assistive device 4. Increased completion time for mobility ADL performance 5. Increased risk for falls 6. Difficulty with managing steps alone safely Patient is assessed as a 53114 moderate complexity based on the following: History: 73-year-old female with past medical history as indicated above Examination: Demonstrable impairment in strength, balance, and mobility level with underlying impairments and functional limitations as exhibited above as well as deficit score of 11% utilizing the [facility] Mobility Inpatient Short Form Presentation: Evolving Decision Makin moderate complexity Goals: Goals X1 week 1. Supine-Sit independent 2. Sit-Supine independent 3. Sit-Stand independent 4. Stand-Sit independent with FWW 5. Bed-Chair independent with FWW 6. Chair-Bed independent with FWW 7. Independent gait on level surface with use of FWW for at least 300 feet without report of pain nor dyspnea 8. Independent stair negotiation while holding onto B rails for at least 3 steps without report of pain nor dyspnea 9. Independent with home exercise program 10. Good static and dynamic standing balance/tolerance Plan of Care/Treatment Plan: 1-2x/day, 7 days/week x 1 week. Plan of care has been reviewed with the ASSOCIATE ACCOUNT EXECUTIVE providing the service under Physical Therapy direction. Initiate Physical Therapy intervention for pain management as needed, strengthening, bed mobility, transfers, gait, stairs, balance training, and use of assistive device. DISCHARGE RECOMMENDATIONS: [] Home with no services [] [X Home with services. Patient will benefit from home health PT services in order to progress mobility level using least restrictive assistive ambulatory device, assess home safety, identify additional equipment needs, and establish a functional maintenance program that will increase ability of patient to remain at home. [] Home with outpatient PT [] [] SNF for continued rehabilitation [] [] Plastic Sheets Supervisor Care [] [] SNF versus LTC based on ability to participate and progress [] TREATMENT CODE/TIME: 43962 x 20 minutes for 1 unit, 9753 [id number] x 17 minutes for 1 unit ((11:01-11:38). Thank you for the opportunity to participate in the care of this patient. Ruby Hickman PT, DPT, CLT [facility] [place], [place]
[2023-12-19] MEDS: Insulin Aspart 300 UNITS/3 ML PEN SC (11:45)
--- NOTE | 2023-12-19 12:08 | W.INDIABCONS ---
Date of service: 12/19/23 Time of Service: 09:30 Diabetes Inpatient Consult Reason for Visit: routine consult - diabetes education DESCRIPTION/ASSESSMENT: 73yo female admitted for upper GI bleed, NSTEMI with PMH significant for severe chronic COPD, CKD III, DMII with insuline use, HLD, NIKKI. Was NPO at admission yesterday and tolerated clear liquids this morning, now advanced to full liquids. Collected pt food preferences/special needs - noted preference for whole milk as only request. Diabetes meds at home include trulicity, jardiance, lantus 20u with adjustments for glucose consistently >150 or < 90, 14 units Lispro with meals and metformin. A1c was 7.3% last september and has been 6.6-8.0 over the last 2+ years. FBG of 112 this morning. She cooks for herself and at home - not a strict carb counter but tries to get a feel or estimate carb content in meals and snacks. Reports low to fair appetite with wt history showing about almost 10kg wt loss. Offerred ONS (boost carb control) which she is interested in receiving. Declined formal diabetic education at this visit INTERVENTION: will supply Boost Carb Control at Breakfast and Lunch for extra protein/nutrition PLAN: Will monitor for changes in intake, weight, labs and education needs/desire for any further nutrition intervention Time Spent in Nutritional Counseling and Treatment: 10 minutes
--- NOTE | 2023-12-19 12:20 | PDOC.HHF2F ---
Home Health Referral Home Health Orders Clinical synopsis of why skilled professionals are needed: This 73 years old female patient with a past medical history of non-ST elevation TN with stent placement on 12/12/2023, type 2 diabetes mellitus, chronic obstructive pulmonary disease on 3 L of oxygen via nasal cannula at baseline presented to the emergency department at [facility] via EMS on 12/18/2023 for evaluation of sudden onset of shortness of breath and generalized fatigue. 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 Blood sugars were reported within range as per continuous glucose monitor. Upon discharge from [facility] on 12/13/2023, patient reported being treated for pneumonia during hospitalization but not currently taking any antibiotics at this time. Stool testing revealed guaiac positive. As per general surgery the patient was not eligible for endoscopy at [facility] so recently after stent placement, anticoagulation but blood transfusion was considered and the patient was admitted by the hospitalist to the medical service for evaluation and management of blood loss anemia due to chronic gastrointestinal bleeding, shortness of breath, fatigue. During the stay, the patient received 1 unit of packed red blood cell transfusion. The patient remained on her 3 L of oxygen via nasal cannula. Symptoms of shortness of breath and fatigue improved post packed red blood cell transfusion. The patient still requires frequent period of rest while ambulating and is tired at times. The patient chronic conditions were managed as per home med regimen. The patient had a clear liquid diet and advanced as tolerated today. The patient did not receive any aspart insulin from the lispro insulin sliding scale ordered in the hospital as the patient blood sugar remain below the parameters. We will hold the 12 to 18 units of lispro insulin ordered with each meal at home, but the patient will continue the Glargine insulin twice a day as ordered by [facility] endocrinology. The endocrinology note from 06/12/2023 read as followed:20 Units daily--pt instructed to increase by 2 units every 3 days if fasting BG consistently >150. Decrease 2 units if fasting BG consistently <90. The patient will continue with her oral medicine to control her diabetes. Resumption of Lispro or Aspart insulin will be managed by primary care practitioner. The patient had complaints of nausea without vomiting and will be discharged home on disintegrating Ondansetron 4 mg tablet as needed every 8 hours. The patient will have to follow-up with her primary care practitioner within 1 to 2 weeks. The patient will have to have CBC completed within 7 days of discharge which resolved forwarded to the patient primary care practitioner. Registered Nurse: Check all that apply Instruct on new or changed medication(s)/assess compliance: Ordered Assess for exacerbation of medical condition, instruct patient/caregivers on signs and symptoms to report for early detection: Ordered Physical Therapist: Check all that apply Increase strength & endurance for safe mobility at home: Ordered To design/establish home maintenance program: Ordered Fall reduction therapy program for patient with history of frequent falls: Ordered Home safety evaluation and teaching/gait training including stair management (if applicable): Ordered Better Breathing Program: Ordered Home Bound Status Requires the aid of supportive device (check all that apply): Walker Describe why leaving home would require a considerable and taxing effort: Requires frequent rest periods and Oxygen Encounter Date and Reason: I certify that a FTF encounter for this patient was performed on December 19, 2023 and that such encounter was related to the primary reason the patient requires home health services. The encounter was conducted in the following manner: By me as the certifying physician, FOUR SLIDE MACHINE OPERATOR, PA or By an inpatient physician, FOUR SLIDE MACHINE OPERATOR or PA during an inpatient stay who communicated findings to me, Certification And Authentication I certify that I composed the above information based on my clinical judgment relating to this patient's medical condition and, if applicable, clinical findings communicated to me by the NPP or inpatient physician who performed the FTF encounter. Name of Provider that will be monitoring home health services: Janina Calloway
--- NOTE | 2023-12-19 15:19 | PDOC.CMDIS ---
Date of service: 12/19/23 Time of Service: 15:19 LACE Index Scoring Tool Questions: Length of Stay (in days): 1 Was the patient admitted via the E.D.?: Yes Comorbidities: Previous M.I., Diabetes w/o Complication, Congestive Heart Failure, Chronic Pulmonary Disease, Any Tumor and Liver or Renal Disease E.D. Visits: 4 Answers: Total Score: 13 Risk of Readmission: High Risk Care Management Discharge Plan Reason for Hospitalization: Blood loss anemia Discharge Plan: Nahed returned home today with new orders for HH RN, PT. Her drove her home via private vehicle. CM coordinated an outpatient palliative assisted visit. She will follow up with her PCP and discharge plan of care. She is happy to be going home. Patient/Family Education Needs: Review discharge instructions and limitations, discussion of self care needs including ask me three. Services Needed at Discharge: Home Health Care Services (new HH RN, PT) SDOH Health Related Social Needs: No Data to Display Referrals and interventions: Pt would like home health service if applicable. her is not able to care for her
--- NOTE | 2023-12-19 16:01 | RESPIRATORY ---
Patient sent home with [facility] oxygen tank. Rental #[id number].
== END 2023-12-19 13:48 | disposition home health service (06) ==
LOC: ER 11:24 → MS 15:04
PROVIDERS: Nurse Practitioner Acute Care; Admitting Provider Family Medicine; Emergency Provider Nurse Practitioner Family; PCP Nurse Practitioner; Visit Provider Family Medicine
DX: K92.1 Melena; J44.9 Chronic obstructive pulmonary disease, unspecified; I25.2 Old myocardial infarction; Z95.5 Presence of coronary angioplasty implant and graft; D62 Acute posthemorrhagic anemia; E11.22 Type 2 diabetes mellitus with diabetic chronic kidney disease; N18.32 Chronic kidney disease, stage 3b; Z79.4 Long term (current) use of insulin; I12.9 Hypertensive chronic kidney disease with stage 1 through stage 4 chronic kidney disease, or unspecified chronic kidney disease; E78.5 Hyperlipidemia, unspecified; G47.33 Obstructive sleep apnea (adult) (pediatric); F41.9 Anxiety disorder, unspecified; Z87.891 Personal history of nicotine dependence; E11.65 Type 2 diabetes mellitus with hyperglycemia; J96.11 Chronic respiratory failure with hypoxia; Z85.3 Personal history of malignant neoplasm of breast; Z99.81 Dependence on supplemental oxygen; I65.23 Occlusion and stenosis of bilateral carotid arteries; I25.10 Atherosclerotic heart disease of native coronary artery without angina pectoris
CPT/HCPCS: 00123; 36415; 36430; 80048; 80053; 86850; 86900; 86901; 86920; 87637; 93005; 94640; 96372; 97162; 97530; 99285; 71046; 83540; 83550; 83735; 83880; 84484; 85014; 85018; 85025; 93010; 94664; 94760; 99222; 99239; J1815; J7620; P9016

== ENCOUNTER 2023-12-20 10:54 | Inpatient (IN) | payer MEDICARE, BC, SELFPAY ==
[2023-12-20] VITALS (22 sets, daily range): BP systolic 104–140; BP diastolic 36–61; PULSE 74–78; RESP 13–28; TEMP 36.3–36.5; O2SAT 88–94
--- NOTE | 2023-12-20 10:45 | RT.EKG_ITS ---
APPROVED REPORT Exam: Resting ECG Reason for Exam: Dizziness, hypoxia Patient Location: E HR:77 bpm ECG Measurements Heart Rate 77 AXIS OR 154 P 81 QRSd 79 QRS 33 QT 384 T 70 QTc 435 Conclusion Sinus rhythm...normal P axis, V-rate 60- 99 sinus rhythm, normal axis, normal intervals, non ischemic
--- NOTE | 2023-12-20 11:00 | ED.GENADUL_ITS ---
Discharge Plan Disposition Patient Disposition: Admit to [facility] Condition: Stable Discharge Details Clinical Impression: Acute on chronic hypoxic respiratory failure, New onset of congestive heart failure, Acute kidney injury Admit Date/Time: 12/20/23 13:27 Admit Provider: Efren Barros Attending Provider: Efren Barros Primary Care Provider: Janina Calloway ED Provider: Edmund Morrow Discharge Data Discharge Date/Time-TO BE ENTERED AT DEPARTURE: 12/20/23 13:58 HPI General Date/Time Provider Initiated Documentation: 12/20/23 11:00 . HPI Narrative: 73 year-old female presents to ED today by EMS with a chief complaint of shortness of breath, dizziness, multiple falls at home- recently seen for NSTEMI w/ one stent placed after transfer to [facility] on 12/11/23 seen in the ED by myself. Patient was discharged home, and has been noticing some severe dizzy spells with activity of going to the bathroom at home, increased O2 use from her baseline of 3L to 4L currently. Quality described as difficulty catching her breath, minor falls without headstrike, no radiation to chest pain, daughter states she has fainted, denies cough, denies fever, endorses black stools with known GI bleeding. Severity is described as moderate. Palliating factors include nothing specific. Provoking factors include nothing specific. Patient not anticoagulated. Related Data Home Medications Medication Instructions Recorded Confirmed multivitamin (Daily Multi-Vitamin 1 ea PO DAILY 03/19/17 12/18/23 tablet) flash glucose scanning reader #1 ea 05/04/21 12/18/23 (FreeStyle Basia 2 Cassoday) denosumab 60 mg/mL subcutaneous 60 mg subcut [id number] 09/25/21 12/18/23 syringe (Prolia) letrozole 2.5 mg tablet 2.5 mg PO DAILY 09/25/21 12/18/23 fluocinolone 0.01 % topical 1 applic topical BID Itchy scalp 04/11/22 12/18/23 solution blood sugar diagnostic (Blood #250 ea 04/12/22 12/18/23 Glucose Test strips) fiber supplements 1 tab PO DAILY 05/23/22 12/18/23 cetirizine 10 mg tablet 10 mg PO DAILY #90 tabs 12/31/22 12/18/23 magnesium oxide 400 mg (241.3 mg See Rx Instructions PO .COMPLEX 12/31/22 12/18/23 magnesium) tablet low magnesium level #180 tab-caps nitroglycerin 0.4 mg sublingual 0.4 mg sublingual Q5M PRN chest 02/14/23 12/18/23 tablet pain #30 tabs sucralfate 1 gram tablet (Carafate) 1 g PO QACHS #60 tabs 02/27/23 12/18/23 lancets 28 gauge (Sure Comfort #100 ea 03/20/23 12/18/23 Lancets) flash glucose sensor (FreeStyle #6 ea 03/25/23 12/18/23 Basia 2 Sensor kit) hydrochlorothiazide 25 mg tablet 25 mg PO DAILY AM #90 tab-caps 03/28/23 12/18/23 tiotropium 2.5 mcg-olodaterol 2.5 2 puff inhalation DAILY #4 grams 03/29/23 12/18/23 mcg/actuation mist for inhalation (Stiolto Respimat) insulin glargine 100 unit/mL (3 See Rx Instructions subcut BID Dx: 06/14/23 12/18/23 mL) subcutaneous pen (Lantus E11.9 to maintain HbA1c less than Solostar U-100 Insulin) 7% montelukast 10 mg tablet 10 mg PO DAILY 06/18/23 12/18/23 valsartan 160 mg tablet 160 mg PO DAILY #90 tabs 07/15/23 12/18/23 dulaglutide 0.75 mg/0.5 mL 1.5 mg subcut QWEEK 07/18/23 12/18/23 subcutaneous pen injector (Trulicity) insulin lispro 100 unit/mL 12 unit subcut TID high blood sugar 07/18/23 12/18/23 subcutaneous pen (Humalog KwikPen (U-100) Insulin) rosuvastatin 40 mg tablet See Rx Instructions .Route 08/12/23 12/18/23 .COMPLEX #90 tabs pen needle, diabetic 32 gauge x #400 ea 08/28/23 12/18/23 5/32 (BD Marina 2nd Gen Pen Needle) fluticasone propionate 50 2 spray intranasal DAILY #16 grams 08/29/23 12/18/23 mcg/actuation nasal spray,suspension famotidine 40 mg tablet 20 mg (1/2 x 40 mg) PO DAILY #60 09/19/23 12/18/23 tabs albuterol sulfate 2.5 mg/3 mL 2.5 mg (3 mL) inhalation Q4H PRN 10/01/23 12/18/23 (0.083 %) solution for nebulization shortness of breath or wheezing #75 mL metoprolol succinate 50 mg See Rx Instructions .Route 10/07/23 12/18/23 tablet,extended release 24 hr .COMPLEX #90 tabs pantoprazole 40 mg tablet,delayed See Rx Instructions .Route 10/07/23 12/18/23 release .COMPLEX #60 tabs citalopram 10 mg tablet 20 mg (2 x 10 mg) PO QHS #60 tabs 12/06/23 12/18/23 aspirin 81 mg tablet,delayed 81 mg PO DAILY 12/09/23 12/18/23 release (Adult Aspirin Regimen) metformin 500 mg tablet See Rx Instructions .Route 12/09/23 12/18/23 .COMPLEX #180 tabs albuterol sulfate 90 mcg/actuation 2 puff inhalation Q6H PRN 12/16/23 12/18/23 aerosol inhaler shortness of breath or wheezing #8.5 grams clopidogrel 75 mg tablet 75 mg PO DAILY 12/17/23 12/18/23 clotrimazole 10 mg jihan 10 mg mucous membrane ONCE 12/17/23 12/18/23 empagliflozin 25 mg tablet 25 mg PO DAILY 12/17/23 12/18/23 (Jardiance) multivitamin with minerals-folic 1 tab PO DAILY 12/18/23 12/18/23 acid 12 mcg chewable tablet (Centrum Adults) prochlorperazine maleate 5 mg 5 mg PO BID PRN #14 tabs 12/19/23 tablet (Compazine) Previous Rx's Medication Instructions Recorded flash glucose scanning reader #1 ea 05/04/21 (iXpertyle Basia 2 Cassoday) blood sugar diagnostic (Blood #250 ea 04/12/22 Glucose Test strips) cetirizine 10 mg tablet 10 mg PO DAILY #90 tabs 12/31/22 magnesium oxide 400 mg (241.3 mg See Rx Instructions PO .COMPLEX 12/31/22 magnesium) tablet low magnesium level #180 tab-caps nitroglycerin 0.4 mg sublingual 0.4 mg sublingual Q5M PRN chest 02/14/23 tablet pain #30 tabs sucralfate 1 gram tablet (Carafate) 1 g PO QACHS #60 tabs 02/27/23 lancets 28 gauge (Sure Comfort #100 ea 03/20/23 Lancets) flash glucose sensor (FreeStyle #6 ea 03/25/23 Basia 2 Sensor kit) hydrochlorothiazide 25 mg tablet 25 mg PO DAILY AM #90 tab-caps 03/28/23 tiotropium 2.5 mcg-olodaterol 2.5 2 puff inhalation DAILY #4 grams 03/29/23 mcg/actuation mist for inhalation (Stiolto Respimat) valsartan 160 mg tablet 160 mg PO DAILY #90 tabs 07/15/23 rosuvastatin 40 mg tablet See Rx Instructions .Route 08/12/23 .COMPLEX #90 tabs pen needle, diabetic 32 gauge x #400 ea 08/28/23 (BD Marina 2nd Gen Pen Needle) fluticasone propionate 50 2 spray intranasal DAILY #16 grams 08/29/23 mcg/actuation nasal spray,suspension famotidine 40 mg tablet 20 mg (1/2 x 40 mg) PO DAILY #60 09/19/23 tabs albuterol sulfate 2.5 mg/3 mL 2.5 mg (3 mL) inhalation Q4H PRN 10/01/23 (0.083 %) solution for nebulization shortness of breath or wheezing #75 mL metoprolol succinate 50 mg See Rx Instructions .Route 10/07/23 tablet,extended release 24 hr .COMPLEX #90 tabs pantoprazole 40 mg tablet,delayed See Rx Instructions .Route 10/07/23 release .COMPLEX #60 tabs citalopram 10 mg tablet 20 mg (2 x 10 mg) PO QHS #60 tabs 12/06/23 metformin 500 mg tablet See Rx Instructions .Route 12/09/23 .COMPLEX #180 tabs albuterol sulfate 90 mcg/actuation 2 puff inhalation Q6H PRN 12/16/23 aerosol inhaler shortness of breath or wheezing #8.5 grams prochlorperazine maleate 5 mg 5 mg PO BID PRN #14 tabs 12/19/23 tablet (Compazine) Allergies Allergy/AdvReac Type Severity Reaction Status Date / Time propylene glycol Allergy Severe Rash Verified 12/09/23 07:56 anastrozole Allergy Intermediate unknown Verified 12/09/23 07:56 petrolatum,white Allergy Intermediate rash Verified 12/09/23 07:56 [From Petroleum Jelly] adhesive tape Allergy Unknown Skin Rash Verified 12/09/23 07:56 alendronate sodium Allergy Unknown Hives Verified 12/09/23 07:56 azithromycin AdvReac Intermediate dry heaves Verified 12/09/23 07:56 and diarrhea hydrocodone bitartrate AdvReac Intermediate Nausea Verified 12/09/23 07:56 [From Vicodin] liraglutide [From Victoza] AdvReac Intermediate diarhhea Verified 12/09/23 07:56 lorazepam [From Ativan] AdvReac Intermediate felt Verified 12/09/23 07:56 crazy paraben AdvReac Intermediate Skin Rash Verified 12/09/23 07:56 quaternium 15 AdvReac Intermediate generalized Verified 12/09/23 07:56 rash roflumilast AdvReac Intermediate Diarrhea Verified 12/09/23 07:56 zolpidem [From Ambien] AdvReac Intermediate confusion Verified 12/09/23 07:56 LANDON Inhibitors AdvReac Unknown COUGH,DYSPN Verified 12/09/23 07:56 EA oxycodone HCl [From Percocet] AdvReac Unknown NAUSEA/VOMI Verified 12/09/23 07:56 TING Benzodiazepines AdvReac Visual Verified 12/09/23 07:56 Disturbances fragranced creams Allergy Intermediate Skin Rash Uncoded 12/09/23 07:56 parabin wax Allergy Intermediate Skin Rash Uncoded 12/09/23 07:56 diogolidinyl AdvReac Severe Skin Rash Uncoded 12/09/23 07:56 bisphenal AdvReac Intermediate Skin Rash Uncoded 12/09/23 07:56 General Stated Complaint: RespSymp BRUNA: 3 Review of Systems All systems reviewed & are unremarkable except as noted in HPI and below Exam Narrative Exam Narrative: GENERAL APPEARANCE: Well-nourished, non-toxic, awake and alert, atraumatic, no acute distress. SKIN: Warm, pink, dry, intact, without rashes/lesions/ulcerations. HEAD: Normocephalic, atraumatic, normal hair distribution for gender/age. EYES: Pupils PERRLA, EOMs intact without nystagmus, normal conjunctiva, no exudates on lids/lashes. ENT: Nares patent, no circumoral cyanosis, no facial swelling NECK: Supple, trachea midline, painless cervical ROM. LUNGS/CHEST: Lungs - rales noted bilateral bases, labored respirations, normal A/P diameter, symmetrical expansion, no chest wall deformity, quickly de saturates with ambulation to mid-80's HEART (CV/PV): Regular rate and rhythm without murmur, no peripheral edema, no JVD. ABDOMEN: Soft, non-distended, no guarding, no tenderness. MSK: Normal ROM, no swelling/deformity to bilateral UEs or LEs, moving all extremities without weakness, no cyanosis, spine midline without tenderness, normal curvature. NEURO: Mental Status AAOx4 - alert to person, place, time, events No facial droop, no forehead involvement. Motor: No focal weakness - strength 5/5 in bilateral UEs and LEs, proximal and distal, symmetric. Sensory: sensation intact to light touch globally. Gait NT. PSYCH: euthymic, cooperative, pleasant, appropriate speech Course Vital Signs Vital signs: Vital Signs Temperature 36.3 C L 12/20/23 10:56 Pulse 78 12/20/23 10:56 Respiratory Rate 18 12/20/23 10:56 Blood Pressure 104/39 L 12/20/23 10:56 Pulse Oximetry 94 12/20/23 10:56 Temperature 36.3 C L 12/20/23 10:56 Temperature Source Tympanic 12/20/23 10:56 Pulse 78 12/20/23 10:56 Respiratory Rate 18 12/20/23 10:56 Blood Pressure 104/39 L 12/20/23 10:56 Blood Pressure Position Sitting 12/20/23 10:56 Pulse Oximetry 94 12/20/23 10:56 Oxygen Delivery Method Nasal Cannula 12/20/23 10:56 Pain Level 0 12/20/23 10:56 Medical Decision Making This dictation utilizes [id number] dictation software and may contain unedited grammatical errors. 73 y/o F presents to ED today with a chief complaint of shortness of breath, dizziness, recent NSTEMI seen here 12/11/23 (one stent placed post-tx to [facility])- known chronic anemia and GI bleeding. Patient has had some falls without significant headstrike or LOC at home, baseline mentation. Patient reports increased dizzy spells with any activity, and difficulty with breathing, baseline 3L O2 use, increased to 4L. Patients' medical history: NSTEMI, acute upper GI bleeding, pericarditis, tobacco use disorder, COPD, iron deficiency anemia, recent completed treatment for pneumonia with doxycycline, type 2 diabetes mellitus, hypertension, CKD with a baseline creatinine around 1.1. Family and social history: noncontributory. Pertinent exam findings / vital signs include Rales at bases, increased oxygen demand, quickly desaturates with activity, benign abdomen, nontoxic vitals, neuro intact. Differential / pathologies of concern include CHF pulmonary edema, acute on chronic hypoxic respiratory failure, ACS, treatment failure of pneumonia, dehydration, intracranial bleeding. Diagnostic studies of: -CBC, CMP, troponin, magnesium, BNP, EKG, CT head without contrast, x-ray chest 1 view, urinalysis. -CBC shows anemia, no leukocytosis -Trop negative -BNP near 5,000 w/ rales and increased O2 demand -CMP shows BRITTNEY, SCr 1.7 from baseline 1.1 -UA not collected by time of admission -CT Head without intracranial abnormality -XR report states no pulm edema, I do feel there is some at bases -EKG shows sinus rhythm at 77 bpm with P waves followed by narrow complex QRS, normal axis, good R wave progression, no ST changes, normal QT QTc Interventions of: -40 mg IV Lasix given, consulted with hospitalist Dr. Barros for admission. ED Course/Assessment/Plan: 73-year-old female presents with increased oxygen demands, had a recent STEMI seen by this provider on December 10 and transferred to [facility] where she underwent 1 stent. She has been having multiple dizzy spells with possible syncope at home with fall without major trauma, reports shortness of breath as well. This is likely in the setting of new onset CHF with rales heard at her bases of her lungs with elevated BNP, she did report a black stool while in the emergency department and has had recent transfusions for anemia and GI bleeding. Dr. Barros accepted the patient for admission. Disposition of New Onset of Congestive Heart Failure, Acute on Chronic Hypoxic Respiratory Failure, Acute Kidney Injury. Patient verbalized understanding of the plan and return to ED criteria and engaged in shared decision making. Medical Records Medical records reviewed: Yes I reviewed the patient's medical records. Imaging Data Radiologic Study: Attestation: I personally reviewed and interpreted this imaging study as follows: Imaging: CT Scan Radiologist's impression: EXAM: CT HEAD WO CLINICAL HISTORY: dizziness; falls. TECHNIQUE: Imaging Protocol: Axial computed tomography images with coronal and sagittal reformatted images were created and reviewed COMPARISON: No exams were available for comparison FINDINGS: Ventricles and Extra axial spaces: Normal in size and morphology for the patient's age. Hemorrhage: None. Cerebral parenchyma: No evidence of acute infarct or mass. Mild atrophy. White matter changes of small vessel disease. Midline shift: None. Brainstem/Cerebellum: Normal. Calvarium: Normal. Visualized Paranasal sinuses:Clear. Mastoids: Clear. Soft Tissues: Unremarkable. ORBITS: Unremarkable. PITUITARY: Not enlarged. IMPRESSION: No acute intracranial process. Radiologic Study #2: Attestation: I personally reviewed and interpreted this imaging study as follows: Imaging: X-Ray Radiologist's impression: EXAM: XR CHEST 1V IN DI DEPT CLINICAL HISTORY: dizziness TECHNIQUE: 2D digital imaging was performed. COMPARISON: CT CT CHEST PE CTA from 03/25/2023 CR XR CHEST 2V PA LATERAL from 07/08/2023 CR,XR XR PORTABLE CHEST AP from 09/18/2023 CR XR CHEST 2V PA LATERAL from 12/09/2023 CR XR CHEST 2V PA LATERAL from 12/18/2023 FINDINGS: LUNGS: Underlying emphysematous and fibrotic changes. No infiltrate pulmonary edema visible. No pleural abnormality seen. HEART: Normal size. AORTA: Normal diameter. Calcification at arch. BONES: Unremarkable for age. Soft tissues: Unremarkable. IMPRESSION: No acute findings. Lab Data Lab results reviewed: Yes I reviewed the patient's lab results. Labs: Laboratory Tests Range/Units 12/20/23 12/20/23 11:08 11:10 WBC (4.4-10.8) 10^3/uL 7.96 RBC (3.93-5.22) 10^6/uL 3.23 L Hgb (11.2-15.7) g/dL 9.4 L Hct (36.0-46.0) % 30.1 L MCV (80-95) fL 93 MCH (27.0-33.0) pg 29.1 MCHC (32.0-36.0) % 31.2 L RDW (11.7-14.6) % 16.2 H Plt Count (130-400) 10^3/uL 276 MPV (8.0-11.0) fL 9.1 Immature Gran % See Differential Neutrophils % 70.0 Lymphocytes % 6.0 Monocytes % 20.0 Eosinophils % 2.0 Basophils % 0.0 Metamyelocytes % 2 Nucleated RBC % (0.0-0.3) % 1.0 H Absolute Neutrophils (1.2-6.7) 10^3/uL 5.57 Absolute Lymphocytes (1.2-3.4) 10^3/uL 0.48 L Absolute Monocytes (0.1-0.8) 10^3/uL 1.59 H Absolute Eosinophils (0.0-0.7) 10^3/uL 0.16 Absolute Basophils (0.0-0.2) 10^3/uL 0.00 RBC Morphology Normal Sodium (136-145) mmol/L 137 Potassium (3.5-5.1) mmol/L 4.9 Chloride (98-107) mmol/L 94 L Carbon Dioxide (21.0-32.0) mmol/L 35.1 H Anion Gap (3-11) mmol/L 7.9 BUN (7-18) mg/dL 43 H Creatinine (0.55-1.02) mg/dL 1.7 H Est GFR (CKD-EPI 2020) (mL/min/1.73m2) 31.27 Glucose (74-106) mg/dL 109 H Calcium (8.5-10.1) mg/dL 10.3 H Magnesium (1.8-2.4) mg/dL 2.4 Cancelled Total Bilirubin (0.2-1.0) mg/dL 0.4 AST (15-37) U/L 57 H ALT (14-59) U/L 89 H Alkaline Phosphatase (46-116) U/L 61 Troponin I (< or =60) ng/L 55 NT-Pro-B Natriuret Pep (<300) pg/mL 4232 H Cancelled Total Protein (6.4-8.2) g/dL 8.1 Albumin (3.4-5.0) g/dL 2.6 L Quality:SDOH Health Related Social Needs: No Data to Display PFSH All Active Problems (Updated 12/20/23 @ 13:27 by JONO Ribeiro) Acute kidney injury (Acute) New onset of congestive heart failure (Acute) Acute on chronic hypoxic respiratory failure (Acute) Pneumonia (Acute) Anxiety (Chronic) Adhesive capsulitis of left shoulder (Acute) Sepsis (Acute) Pneumonia (Acute ~09/2023) Acute hypoxemic respiratory failure (Acute) Kaylee rash of groin (Acute) Arteriovenous malformation (Acute ~06/2023) 06/27/23 Gastro Former smoker (Acute) Asymptomatic menopausal state (Acute) [facility] Endo Note 06/12/23 Type 2 diabetes mellitus with hyperglycemia, with long-term current use of insulin (Acute) [facility] Endo Note 06/12/23 Ductal carcinoma in situ (DCIS) of left breast (Acute) [facility] Hem/Onc note 06/05/23 Iron deficiency anemia secondary to blood loss (chronic) (Acute) 05/01/23 Hem/Onc GI bleed (Chronic) Demand ischemia (Acute) Chronic respiratory failure with hypoxia (Acute) Anemia (Chronic) Esophagitis determined by endoscopy (Acute ~12/2022) Compression fracture of L3 vertebra (Acute ~2021) Mucous cyst of digit of left hand (Acute ~12/2022) s/p excision of mucous cyst DOS: 01/08/23 Trigger finger, left middle finger (Acute) 40 mg Depo-Medrol injection: 11/12/2022 s/p trigger release DOS: 01/08/23 History of breast cancer (Acute) Dermatitis, seborrheic (Acute) 07/06/22 Dr Moreno Anemia, macrocytic (Acute) 05/03/22 Hem/Onc Note Essential hypertension (Acute 05/16/04) Microalbuminuria due to type 2 diabetes mellitus (Acute) Hyperlipidemia (Acute 03/18/07) Type 2 diabetes mellitus, with long-term current use of insulin (Acute ~1999) Renal artery stenosis, [place], bilateral (Chronic) [facility] Vascular Surgery; most recent OV 06/01/21 Atherosclerosis of both carotid arteries (Chronic 11/12/16) [facility] Vascular Surgery; most recent OV 06/01/21; Recommend annual carotid US COPD, very severe (Chronic) [facility] Pulm O2 dependent ASCVD (arteriosclerotic cardiovascular disease) (Chronic) [facility] 06/01/21 Vascular note: Asymptomatic bilateral carotid artery stenosis Non-ST elevation (NSTEMI) myocardial infarction (Acute ~12/2020) S/p proximal LCX stent placement 01/27/21 [facility] CKD (chronic kidney disease) (Chronic) Obstructive sleep apnea (Chronic 03/02/14) Bipap w/ 2L 02 09/06/2019 Medical History Esophageal thrush Allergic contact dermatitis due to other agents Malignant neoplasm of unspecified site of left female breast (~10/2021) 11/06/21 Dr Mcgill ([facility] Rad[facility]Onc [facility]); Radiation Therapy planned 12/21/21-hormone receptor positive Gross hematuria Vulvar irritation Breast cancer in female (~05/2021) R 2002, L 2003 s/p B/L partial mastectomy, XRT, & tamoxifen. 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) Estrogen receptor positive s/p RXT, surgical removal of tumor Enteritis Back pain Post-menopausal bleeding Pelvic pain Pericarditis (~12/2020) S/p [place] Vaginitis and vulvovaginitis, unspecified Tobacco use disorder 30-50 PY, QUIT 1999 Compression fracture of lumbar vertebra (03/14/17) Depression (11/30/02) s/p of brother (on SSRI for short time) Solitary pulmonary nodule (12/22/15) Incidental finding of 6 mm pulm nodule RLL on 11/07/[address] with 6 month f/u chest CT recommended; 04/2016 6-month f/u chest CT: resolution of nodule Pneumonia Spinal stenosis (02/04/14) Multi level on MRI Reflux esophagitis (07/16/12) LA GRADE B , EGD W/ BX 05/04/15 Osteopenia (02/14/16) DEXA 02/14/16: Fem neck t-score -1.2 --> WHO FRAX major osteoporotic 13% & hip fx 1.3% risk --> does not qualify for bisphosphonates --> Ca & vit D 03/2017 L3 compression fx --> re-calc WHO FRAX major osteoporotic 21% & hip fx 2.3% risk --> now qualifies for bisphosphonate tx, started 03/2017 Probable allergic rxn to Alendronate (1st pill Sat, Hives Th and stayed thru today (but no worsening), 07/05. Agree to STOP for now. Leg cramps (04/01/14) Low Mg+ --> supplementation helped, but caused diarrhea; handout on dietary Mg+ given Iron deficiency anemia (01/02/17) S/p colo & EGD 05/2015, then capsule endoscopy & push enteroscopy with no definitive etiology identified; 11/14/2017: repeat colonoscopy (due to return of anemia) showing a colonic angioectasia, which may have been source of bleeding & anemia (no overt bleeding found). Fe supplementation & monitor 10/29/22 Seen by [facility] Hem/Onc Intraabdominal calcification (11/14/15) Incidental finding on CT 2 mm between bladder and uterus, no further eval required, AOC Hypomagnesemia (03/04/17) Hiatal hernia (02/11/14) Smaller portions Endoscopy 10/04 anemia (nothing found), [facility] Heart murmur 07/11/2016 echo: mild-moderate mitral regurgitation DJD (degenerative joint disease) (02/04/14) Lumbar spine--multiple level on MRI Surgery 10/2011, [facility] Dr. 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/21/16 [facility] Vascular Surgery consult: moderate stenosis, not source of clinical pathology, & no intervention or further evaluation indicated Anemia (02/11/14) Suspect chronic dz/bone marrow suppression s/p breast CA tx (radiation); s/p GI workup (possible AVMs?), NL B12/folate, elevated Epo, NL retic count; chronic iron supplementation Allergic rhinitis Superior mesenteric artery stenosis Chronic GI bleeding Headache Surgical History H/O colonoscopy (~11/02/22) 11/02/22 , 1 cecal polyp removed - f/u 10 years 11/12/23-[facility] H/O endoscopy (~06/21/22) 11/02/22 Upper GI endoscopy 11/12/23-[facility]-3 non-bleeding angioectasias-biopsies taken H/O partial mastectomy (~10/26/21) Left breast S/P breast biopsy, left (05/09/21) u/s guided Core Bx History of hysterectomy, supracervical Status post coronary artery stent placement (~01/27/21) H/O laminectomy (~10/06/12) L5S1 Dr. Jarrod Ballard H/O laminectomy L5S1 Tooth Extractions Multiple Oophrectomy, Right (~2007) For unknown reason Extraction of cataract left eye surgical removal with intraocular lens implant. Dr Agee Breast, Lumpectomy (~2003) B/L for breast CA Biopsy, Lymph Node (~2003) (L) axilla for breast CA Family History Sister Breast cancer Mother , 89 Alzheimer's dementia Breast cancer Father , AGE 75 Alcohol abuse Cirrhosis Sister Neoplasm uterine CA Sister Heart disease Brother Heart disease Niece Breast cancer Social History Smoking/Tobacco Use Status: Former Tobacco Use tobacco type: cigarettes Quit Date: 09/02/95 Tobacco: How many years used: 25 Smoking risk assessment performed?: Yes Alcohol Intake: former Details: none Drug use: Never Substance use type: does not use Adopted: No Caregiver/Support person: No Foster care: No Household members: spouse Housing: house Number of Children: 4 Communication Needs: None Pets and animals: No Current gender identity: female What type of physical activity do you participate in: regular exercise Duration: < 15 minutes/day Frequency: 3-4 times per week Mell/Church: Islam Seatbelt use: always Drive intox or ride w/intox driver wheelchair: No Working smoke detector in home: Yes Fire extinguisher in home: Yes Carbon monox detector in home: Yes Do you feel safe at home: Yes Do you feel safe in your relationship?: Yes History History Para Hx # Term Pregnancies Multiple births Hx # Pregnancies Ectopic pregnancies AB induced Hx Number of Living Children 4 AB spontaneous
[2023-12-20 11:20] LABS: Abs Immature Grans 0.44 10^3/uL (0.0-0.06); HCT 30.1 % (36.0-46.0); HGB 9.4 g/dL (11.2-15.7); MCH 29.1 pg (27.0-33.0); MCHC 31.2 % (32.0-36.0); MCV 93 fL (80-95); MPV 9.1 fL (8.0-11.0); Platelet Count 276 10^3/uL (130-400); RBC 3.23 10^6/uL (3.93-5.22); RDW 16.2 % (11.7-14.6); RDW-SD 54.9 fL; WBC 7.96 10^3/uL (4.4-10.8)
[2023-12-20 11:35] LABS: Absolute Eosinophil Count 0.16 10^3/uL (0.0-0.7); Absolute Lymphocyte Count 0.48 10^3/uL (1.2-3.4); Absolute Monocyte Count 1.59 10^3/uL (0.1-0.8); Absolute Neutrophil Count 5.57 10^3/uL (1.2-6.7); Diff Comment Manual Differential; Metamyelocytes % 2; RBC Morphology Normal
[2023-12-20 11:41] LABS: ALT 89 U/L (14-59); AST 57 U/L (15-37); Albumin 2.6 g/dL (3.4-5.0); Alkaline Phosphatase 61 U/L (46-116); Anion Gap 7.9 mmol/L (3-11); BUN 43 mg/dL (7-18); Bilirubin, Total 0.4 mg/dL (0.2-1.0); CO2 35.1 mmol/L (21.0-32.0); CREATININE 1.7 mg/dL (0.55-1.02); Calcium 10.3 mg/dL (8.5-10.1); Chloride 94 mmol/L (98-107); Estimated GFR 31.27 (mL/min/1.73m2); Glucose 109 mg/dL (74-106); Magnesium 2.4 mg/dL (1.8-2.4); NT-proBNP 4232 pg/mL (<300); Potassium 4.9 mmol/L (3.5-5.1); Sodium 137 mmol/L (136-145); Total Protein 8.1 g/dL (6.4-8.2); Troponin I 55 ng/L (< or =60)
--- NOTE | 2023-12-20 12:23 | DI.CT_ITS ---
Exam(s) CT HEAD WO EXAM: CT HEAD WO CLINICAL HISTORY: dizziness; falls. TECHNIQUE: Imaging Protocol: Axial computed tomography images with coronal and sagittal reformatted images were created and reviewed COMPARISON: No exams were available for comparison FINDINGS: Ventricles and Extra axial spaces: Normal in size and morphology for the patient's age. Hemorrhage: None. Cerebral parenchyma: No evidence of acute infarct or mass. Mild atrophy. White matter changes of sma ll vessel disease. Midline shift: None. Brainstem/Cerebellum: Normal. Calvarium: Normal. Visualized Paranasal sinuses:Clear. Mastoids: Clear. Soft Tissues: Unremarkable. ORBITS: Unremarkable. PITUITARY: Not enlarged. IMPRESSION: No acute intracranial process. RADIATION DOSE DELIVERED: 667.88mGy.cm Total DLP DATA REPOSITORY: All CT scans at this facility are submitted to the National Radiology Data Registry (NRDR) Dose Index Registry (DIR) with the [employer] (ACR). RADIATION OPTIMIZATION: All CT scans at this facility use at least one of these dose optimization te chniques: automated exposure control; mA and/or kV adjustment per patient size (includes targeted exa ms where dose is matched to clinical indication); or iterative reconstruction.
[2023-12-20] MEDS: Furosemide 40 MG/4 ML VIAL IVP ×2 (12:54→16:19)
--- NOTE | 2023-12-20 12:57 | DI.RAD_ITS ---
Exam(s) XR CHEST 1V IN DI DEPT EXAM: XR CHEST 1V IN DI DEPT CLINICAL HISTORY: dizziness TECHNIQUE: 2D digital imaging was performed. COMPARISON: CT CT CHEST PE CTA from 03/25/2023 CR XR CHEST 2V PA LATERAL from 07/08/2023 CR,XR XR PORTABLE CHEST AP from 09/18/2023 CR XR CHEST 2V PA LATERAL from 12/09/2023 CR XR CHEST 2V PA LATERAL from 12/18/2023 FINDINGS: LUNGS: Underlying emphysematous and fibrotic changes. No infiltrate pulmonary edema visible. No ple ural abnormality seen. HEART: Normal size. AORTA: Normal diameter. Calcification at arch. BONES: Unremarkable for age. Soft tissues: Unremarkable. IMPRESSION: No acute findings. DATA REPOSITORY: RADIATION DOSE DELIVERED:
--- NOTE | 2023-12-20 13:28 | HPE_ITS ---
Date of service: 12/20/23 Time of Service: 13:28 Assessment and Plan Assessment and plan (1) Acute kidney injury: Status: Acute Assessment and plan: BMP in AM hold losartan, famotidine, HCTZ avoid nephrotoxic meds IVF contrindicated d/t below (2) New onset of congestive heart failure: Status: Acute Assessment and plan: Echocardiogram IV Lasix Hold metoprolol succinate for now until LVEF results; considering tartrate if unstable of LVEF critically low Telemetry Strict I&O (3) Acute on chronic hypoxic respiratory failure: Status: Acute Assessment and plan: Oxygen supplementation and wean as tolerated (4) Chronic disease under co-management: Status: Acute Assessment and plan: HTN: as per home meds regimen unless held DM: Gluc AC and HS with SSI, and basal dose, jardiance (5) Frequent falls: Status: Acute Assessment and plan: PT consult (6) On deep vein thrombosis (DVT) prophylaxis: Status: Acute Assessment and plan: TEDs (7) Discharge planning issues: Status: Acute Assessment and plan: CM to f/u Patient's will provide discharge packets from [facility] tomorrow as info such as echo during the NSTEMI could not be provided Discussed with Dr. Barros History of Present Illness History of Present Illness Chief Complaint: Shortness of breath, multiple minor falls Narrative: This 73 years old female patient with a past medical history of non- STEMI on 410 with 1 stent placed at [facility] subsequent hospitalization at [facility] for history of chronic anemia and GI bleed resulting on discharge home yesterday presented today via EMS at [facility] with complaints of shortness of breath, falls. The patient past medical history also include pericarditis, tobacco use disorder, COPD on CPAP at home and home oxygen supplementation at 3 L/min, iron deficiency anemia recent treatment for pneumonia within the past month treated with doxycycline, type 2 diabetes mellitus, hypertension, CKD with baseline creatinine around 1.1. The patient reported increasing dizziness with any activity difficulty breathing while in supine position with 2 pillows and having had to increase her oxygen supplementation to 4 L/min. The patient denied any head strike during the falls. The lab result in the ED were remarkable for a BNP of 4232, BUN of 43, creatinine of 1.7, and H&H of 9.4 and 30.1. Imaging in the ED was remarkable for emphysematous and fibrotic changes without evidence of pulmonary infiltrate as per report. Upon review of the film, cephalization is indeed noticed as well as slight engorgement mostly to the left lower part of the lung cole. In the ED the patient received IV Lasix and the hospitalist was consulted and the patient admitted to the medical surgical floor for CHF exacerbation, acute on chronic respiratory failure and BRITTNEY. When met on the floor, the patient reported that during her acute episode she experienced blurred vision, dizziness, cough without hemoptysis or nausea. Patient also reported that she had to sleep on 2 pillows and asked to slow walking pace when transferring in a house due to increased shortness of breath. On arrival to the floor, the patient was on 3 L of oxygen, shortness of breath had improved, no further dizziness reported. The patient denied chest pain, abdominal pain, dysuria or constipation but reports diarrhea. Review of Systems All systems reviewed & are unremarkable except as noted in HPI and below Constitutional Constitutional: Denies chills, Reports difficulty sleeping, Reports frequent falls and Denies headache(s) ENT Ears, Nose, Mouth, and Throat: Denies headache(s) Cardiovascular Cardiovascular: Reports as per HPI, Reports system reviewed and no additional complaints, except as documented, Denies chest pain, Denies irregular heart rhythm, Denies leg ulcers, Denies leg edema, Reports lightheadedness and Reports dyspnea Respiratory Respiratory: Reports as per HPI, Reports system reviewed and no additional complaints, except as documented, Denies change in phlegm color, Reports cough, Denies hemoptysis, Denies excessive phlegm production and Reports dyspnea Gastrointestinal Gastrointestinal: Reports as per HPI, Reports system reviewed and no additional complaints, except as documented, Denies abdominal pain, Denies belching, Reports excessive flatus, Reports dyspepsia and Reports diarrhea Neurologic Neurologic: Reports frequent falls and Denies headache(s) COUNTS INCLUDE 234 BEDS AT THE [facility] All Active Problems (Updated 12/20/23 @ 16:17 by Eli Lin APRN) Frequent falls (Acute) Discharge planning issues (Acute) On deep vein thrombosis (DVT) prophylaxis (Acute) Chronic disease under co-management (Acute) Acute kidney injury (Acute) New onset of congestive heart failure (Acute) Acute on chronic hypoxic respiratory failure (Acute) Pneumonia (Acute) Anxiety (Chronic) Adhesive capsulitis of left shoulder (Acute) Sepsis (Acute) Pneumonia (Acute ~09/2023) Acute hypoxemic respiratory failure (Acute) Kaylee rash of groin (Acute) Arteriovenous malformation (Acute ~06/2023) 06/27/23 Gastro Former smoker (Acute) Asymptomatic menopausal state (Acute) [facility] [place] 06/12/23 Type 2 diabetes mellitus with hyperglycemia, with long-term current use of insulin (Acute) [facility] [place] 06/12/23 Ductal carcinoma in situ (DCIS) of left breast (Acute) [facility] Hem/Onc note 06/05/23 Iron deficiency anemia secondary to blood loss (chronic) (Acute) 05/01/23 Hem/Onc GI bleed (Chronic) Demand ischemia (Acute) Chronic respiratory failure with hypoxia (Acute) Anemia (Chronic) Esophagitis determined by endoscopy (Acute ~12/2022) Compression fracture of L3 vertebra (Acute ~2021) Mucous cyst of digit of left hand (Acute ~12/2022) s/p excision of mucous cyst DOS: 01/08/23 Trigger finger, left middle finger (Acute) 40 mg Depo-Medrol injection: 11/12/2022 s/p trigger release DOS: 01/08/23 History of breast cancer (Acute) Dermatitis, seborrheic (Acute) 07/06/22 Dr Moreno Anemia, macrocytic (Acute) 05/03/22 Hem/Onc Note Essential hypertension (Acute 05/16/04) Microalbuminuria due to type 2 diabetes mellitus (Acute) Hyperlipidemia (Acute 03/18/07) Type 2 diabetes mellitus, with long-term current use of insulin (Acute ~1999) Renal artery stenosis, [place], bilateral (Chronic) [facility] [place] Surgery; most recent OV 06/01/21 Atherosclerosis of both carotid arteries (Chronic 11/12/16) [facility] V[facility] Surgery; most recent OV 06/01/21; Recommend annual carotid US COPD, very severe (Chronic) [facility] Pulm O2 dependent ASCVD (arteriosclerotic cardiovascular disease) (Chronic) [facility] 06/01/21 Vascular note: Asymptomatic bilateral carotid artery stenosis Non-ST elevation (NSTEMI) myocardial infarction (Acute ~12/2020) S/p proximal LCX stent placement 01/27/21 [facility] CKD (chronic kidney disease) (Chronic) Obstructive sleep apnea (Chronic 03/02/14) Bipap w/ 2L 02 09/06/2019 Medical History Esophageal thrush Allergic contact dermatitis due to other agents Malignant neoplasm of unspecified site of left female breast (~10/2021) 11/06/21 Dr Mcgill ([facility] Rad[facility]Onc Office); Radiation Therapy planned 12/21/21-hormone receptor positive Gross hematuria Vulvar irritation Breast cancer in female (~05/2021) R 2002, L 2004 s/p B/L partial mastectomy, XRT, & tamoxifen. 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) Estrogen receptor positive s/p RXT, surgical removal of tumor Enteritis Back pain Post-menopausal bleeding Pelvic pain Pericarditis (~12/2020) S/p TX Vaginitis and vulvovaginitis, unspecified Tobacco use disorder 30-50 PY, QUIT 1999 Compression fracture of lumbar vertebra (03/14/17) Depression (11/30/02) s/p of brother (on SSRI for short time) Solitary pulmonary nodule (12/22/15) Incidental finding of 6 mm pulm nodule RLL on 11/07/[address] with 6 month f/u chest CT recommended; 04/2016 6-month f/u chest CT: resolution of nodule Pneumonia Spinal stenosis (02/04/14) Multi level on MRI Reflux esophagitis (07/16/12) LA GRADE B , EGD W/ BX 05/04/15 Osteopenia (02/14/16) DEXA 02/14/16: Fem neck t-score -1.2 --> WHO FRAX major osteoporotic 13% & hip fx 1.3% risk --> does not qualify for bisphosphonates --> Ca & vit D 03/2017 L3 compression fx --> re-calc WHO FRAX major osteoporotic 21% & hip fx 2.3% risk --> now qualifies for bisphosphonate tx, started 03/2017 Probable allergic rxn to Alendronate (1st pill Sat, and stayed thru today (but no worsening), 07/05. Agree to STOP for now. Leg cramps (04/01/14) Low Mg+ --> supplementation helped, but caused diarrhea; handout on dietary Mg+ given Iron deficiency anemia (01/02/17) S/p colo & EGD 05/2015, then capsule endoscopy & push enteroscopy with no definitive etiology identified; 11/14/2017: repeat colonoscopy (due to return of anemia) showing a colonic angioectasia, which may have been source of bleeding & anemia (no overt bleeding found). Fe supplementation & monitor 10/29/22 Seen by [facility] Hem/Onc Intraabdominal calcification (11/14/15) Incidental finding on CT 2 mm between bladder and uterus, no further eval required, AOC Hypomagnesemia (03/04/17) Hiatal hernia (02/11/14) Smaller portions Endoscopy 10/04 anemia (nothing found), [facility] Heart murmur 07/11/2016 echo: mild-moderate mitral regurgitation DJD (degenerative joint disease) (02/04/14) Lumbar spine--multiple level on MRI Surgery 10/2011, [facility] Dr. 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/21/16 [facility] Vascular Surgery consult: moderate stenosis, not source of clinical pathology, & no intervention or further evaluation indicated Anemia (02/11/14) Suspect chronic dz/bone marrow suppression s/p breast CA tx (radiation); s/p GI workup (possible AVMs?), NL B12/folate, elevated Epo, NL retic count; chronic iron supplementation Allergic rhinitis Superior mesenteric artery stenosis Chronic GI bleeding Headache Surgical History H/O colonoscopy (~11/02/22) 11/02/22 , 1 cecal polyp removed - f/u 10 years 11/12/23-[facility] H/O endoscopy (~06/21/22) 11/02/22 Upper GI endoscopy 11/12/23-[facility]-3 non-bleeding angioectasias-biopsies taken H/O partial mastectomy (~10/26/21) Left breast S/P breast biopsy, left (05/09/21) u/s guided Core Bx History of hysterectomy, supracervical Status post coronary artery stent placement (~01/27/21) H/O laminectomy (~10/06/12) L5S1 Dr. Jarrod Ballard H/O laminectomy L5S1 Tooth Extractions Multiple Oophrectomy, Right (~2007) For unknown reason Extraction of cataract left eye surgical removal with intraocular lens implant. Dr Anuel Breast, Lumpectomy (~2003) B/L for breast CA Biopsy, Lymph Node (~2003) (L) axilla for breast CA Family History Sister Breast cancer Mother , 89 Alzheimer's dementia Breast cancer Father , AGE 75 Alcohol abuse Cirrhosis Sister Neoplasm uterine CA Sister Heart disease Brother Heart disease Niece Breast cancer Social History Smoking/Tobacco Use Status: Former Tobacco Use tobacco type: cigarettes Quit Date: 09/02/95 Tobacco: How many years used: 25 Smoking risk assessment performed?: Yes Alcohol Intake: former Details: none Drug use: Never Substance use type: does not use Adopted: No Caregiver/Support person: No Foster care: No Household members: spouse Housing: house Number of Children: 4 Communication Needs: None Pets and animals: No Current gender identity: female What type of physical activity do you participate in: regular exercise Duration: < 15 minutes/day Frequency: 3-4 times per week Mell/Religious: Orthodox Seatbelt use: always Drive intox or ride w/intox stud driver: No Working smoke detector in home: Yes Fire extinguisher in home: Yes Carbon monox detector in home: Yes Do you feel safe at home: Yes Do you feel safe in your relationship?: Yes History History 2 Para Hx # Term Pregnancies Multiple births Hx # Pregnancies Ectopic pregnancies AB induced Hx Number of Living Children 4 AB spontaneous Meds Allergies and Home Medications Allergies Allergy/AdvReac Type Severity Reaction Status Date / Time propylene glycol Allergy Severe Rash Verified 12/09/23 07:56 anastrozole Allergy Intermediate unknown Verified 12/09/23 07:56 petrolatum,white Allergy Intermediate rash Verified 12/09/23 07:56 [From Petroleum Jelly] adhesive tape Allergy Unknown Skin Rash Verified 12/09/23 07:56 alendronate sodium Allergy Unknown Hives Verified 12/09/23 07:56 azithromycin AdvReac Intermediate dry heaves Verified 12/09/23 07:56 and diarrhea hydrocodone bitartrate AdvReac Intermediate Nausea Verified 12/09/23 07:56 [From Vicodin] liraglutide [From Victoza] AdvReac Intermediate diarhhea Verified 12/09/23 07:56 lorazepam [From Ativan] AdvReac Intermediate felt Verified 12/09/23 07:56 crazy paraben AdvReac Intermediate Skin Rash Verified 12/09/23 07:56 quaternium 15 AdvReac Intermediate generalized Verified 12/09/23 07:56 rash roflumilast AdvReac Intermediate Diarrhea Verified 12/09/23 07:56 zolpidem [From Ambien] AdvReac Intermediate confusion Verified 12/09/23 07:56 LANDON Inhibitors AdvReac Unknown COUGH,DYSPN Verified 12/09/23 07:56 EA oxycodone HCl [From Percocet] AdvReac Unknown NAUSEA/VOMI Verified 12/09/23 07:56 TING Benzodiazepines AdvReac Visual Verified 12/09/23 07:56 Disturbances fragranced creams Allergy Intermediate Skin Rash Uncoded 12/09/23 07:56 parabin wax Allergy Intermediate Skin Rash Uncoded 12/09/23 07:56 diogolidinyl AdvReac Severe Skin Rash Uncoded 12/09/23 07:56 bisphenal AdvReac Intermediate Skin Rash Uncoded 12/09/23 07:56 Home Medications Medication Instructions Recorded Confirmed Type Oxygen l NS At Night ##2 04/19/16 02/19/19 Clinic multivitamin (Daily Multi-Vitamin 1 ea PO DAILY 03/19/17 12/18/23 History tablet) flash glucose scanning reader #1 ea 05/04/21 12/18/23 Rx ([employer] Basia 2 [place]) denosumab 60 mg/mL subcutaneous 60 mg subcut [id number] 09/25/21 12/18/23 History syringe (Prolia) letrozole 2.5 mg tablet 2.5 mg PO DAILY 09/25/21 12/18/23 History fluocinolone 0.01 % topical 1 applic topical BID Itchy scalp 04/11/22 12/18/23 History solution blood sugar diagnostic (Blood #250 ea 04/12/22 12/18/23 Rx Glucose Test strips) fiber supplements 1 tab PO DAILY 05/23/22 12/18/23 History cetirizine 10 mg tablet 10 mg PO DAILY #90 tabs 12/31/22 12/18/23 Rx magnesium oxide 400 mg (241.3 mg See Rx Instructions PO .COMPLEX 12/31/22 12/18/23 Rx magnesium) tablet low magnesium level #180 tab-caps nitroglycerin 0.4 mg sublingual 0.4 mg sublingual Q5M PRN chest 02/14/23 12/18/23 Rx tablet pain #30 tabs sucralfate 1 gram tablet (Carafate) 1 g PO QACHS #60 tabs 02/27/23 12/18/23 Rx lancets 28 gauge (Sure Comfort #100 ea 03/20/23 12/18/23 Rx Lancets) flash glucose sensor (FreeStyle #6 ea 03/25/23 12/18/23 Rx Basia 2 Sensor kit) hydrochlorothiazide 25 mg tablet 25 mg PO DAILY AM #90 tab-caps 03/28/23 12/18/23 Rx tiotropium 2.5 mcg-olodaterol 2.5 2 puff inhalation DAILY #4 grams 03/29/23 12/18/23 Rx mcg/actuation mist for inhalation (Stiolto Respimat) insulin glargine 100 unit/mL (3 See Rx Instructions subcut BID Dx: 06/14/23 12/18/23 History mL) subcutaneous pen (Lantus E11.9 to maintain HbA1c less than Solostar U-100 Insulin) 7% montelukast 10 mg tablet 10 mg PO DAILY 06/18/23 12/18/23 History valsartan 160 mg tablet 160 mg PO DAILY #90 tabs 07/15/23 12/18/23 Rx dulaglutide 0.75 mg/0.5 mL 1.5 mg subcut QWEEK 07/18/23 12/18/23 History subcutaneous pen injector (Trulicity) insulin lispro 100 unit/mL 12 unit subcut TID high blood sugar 07/18/23 12/18/23 History subcutaneous pen (Humalog KwikPen (U-100) Insulin) rosuvastatin 40 mg tablet See Rx Instructions .Route 08/12/23 12/18/23 Rx .COMPLEX #90 tabs pen needle, diabetic 32 gauge x #400 ea 08/28/23 12/18/23 Rx 32 (BD Marina 2nd Gen Pen Needle) fluticasone propionate 50 2 spray intranasal DAILY #16 grams 08/29/23 12/18/23 Rx mcg/actuation nasal spray,suspension famotidine 40 mg tablet 20 mg (1/2 x 40 mg) PO DAILY #60 09/19/23 12/18/23 Rx tabs albuterol sulfate 2.5 mg/3 mL 2.5 mg (3 mL) inhalation Q4H PRN 10/01/23 12/18/23 Rx (0.083 %) solution for nebulization shortness of breath or wheezing #75 mL metoprolol succinate 50 mg See Rx Instructions .Route 10/07/23 12/18/23 Rx tablet,extended release 24 hr .COMPLEX #90 tabs pantoprazole 40 mg tablet,delayed See Rx Instructions .Route 10/07/23 12/18/23 Rx release .COMPLEX #60 tabs citalopram 10 mg tablet 20 mg (2 x 10 mg) PO QHS #60 tabs 12/06/23 12/18/23 Rx aspirin 81 mg tablet,delayed 81 mg PO DAILY 12/09/23 12/18/23 History release (Adult Aspirin Regimen) metformin 500 mg tablet See Rx Instructions .Route 12/09/23 12/18/23 Rx .COMPLEX #180 tabs albuterol sulfate 90 mcg/actuation 2 puff inhalation Q6H PRN 12/16/23 12/18/23 Rx aerosol inhaler shortness of breath or wheezing #8.5 grams clopidogrel 75 mg tablet 75 mg PO DAILY 12/17/23 12/18/23 History clotrimazole 10 mg jihan 10 mg mucous membrane ONCE 12/17/23 12/18/23 History empagliflozin 25 mg tablet 25 mg PO DAILY 12/17/23 12/18/23 History (Jardiance) multivitamin with minerals-folic 1 tab PO DAILY 12/18/23 12/18/23 History acid 12 mcg chewable tablet (Centrum Adults) prochlorperazine maleate 5 mg 5 mg PO BID PRN #14 tabs 12/19/23 Rx tablet (Compazine) Exam Narrative Exam Narrative: Constitutional The patient is sitting in chaircomfortable and cooperative during the interview. HENMT: Head is atraumatic. Facial structures with normal appearance Eyes: Well aligned, intact ROM Neuro:alert and oriented to self, person, place, time and situation. No neurological focal deficit Resp: Normal respiratory pattern, speaks in full sentences, unlabored breathing, clear upper lung bilaterally but bibasilar crackles L> R Cardio: regular rhythm, S1, S2, no murmur, capillary refill<3 sec., bilateral radial and dorsalis pedis pulses are positive, palpable GI: Abdomen is not distended, soft and non tender, bowel sounds are present Integumentary: No skin lesions or rash Extremities: strength 5/5 to bilateral lower and upper extremities Psych: RASS 0, congruent mood and normal affect. Results Labs 12/20/23 11:08 12/20/23 11:08 Labs: Laboratory Results - last 24 hr 12/20/23 12/20/23 11:08 11:10 WBC 7.96 RBC 3.23 L Hgb 9.4 L Hct 30.1 L MCV 93 MCH 29.1 MCHC 31.2 L RDW 16.2 H Plt Count 276 MPV 9.1 Immature Gran % See Differential Neutrophils % 70.0 Lymphocytes % 6.0 Monocytes % 20.0 Eosinophils % 2.0 Basophils % 0.0 Metamyelocytes % 2 Nucleated RBC % 1.0 H Absolute Neutrophils 5.57 Absolute Lymphocytes 0.48 L Absolute Monocytes 1.59 H Absolute Eosinophils 0.16 Absolute Basophils 0.00 RBC Morphology Normal Sodium 137 Potassium 4.9 Chloride 94 L Carbon Dioxide 35.1 H Anion Gap 7.9 BUN 43 H Creatinine 1.7 H Est GFR (CKD-EPI 2020) 31.27 Glucose 109 H Calcium 10.3 H Magnesium 2.4 Cancelled Total Bilirubin 0.4 AST 57 H ALT 89 H Alkaline Phosphatase 61 Troponin I 55 NT-Pro-B Natriuret Pep 4232 H Cancelled Total Protein 8.1 Albumin 2.6 L Last Vital Signs Temp 36.3 C L 12/20/23 10:56 Pulse 75 12/20/23 13:01 Resp 24 12/20/23 13:01 BP 140/36 L 12/20/23 13:01 Pulse Ox 94 12/20/23 10:56 Time Spent Time spent with Patient: >75 minutes Time was spent: preparing to see the patient(eg.review tests), obtaining and/or reviewing separately otained hiistory, ordering medications,tests, procedures, referring, communicating with other health rn palliative care, indepentently interpreting results, counseling the patient and care coordination
--- NOTE | 2023-12-20 14:36 | PT.INIE ---
PT Notes Visit Reasons: CHF Exacerbation,Acute on Chronic Respiratory Fail Physical Therapy Inpatient Initial Evaluation Date: 12/20/2023 Referring Doctor: Eli Lin NP PT Orders: PT CONSULT: fall safety assessment Precautions: Fall. Standard. Activity as tolerated. Patient Profile/Admitting Diagnosis: Nahed is a 73-year-old female who [facility] today for dizziness, fall, and SOB. She was discharged from the hospital yesterday, 12/19/2023 with referral to PT for conitnued sterngthhtneing and balance retraning. She is re-admitted to [facility] of care for management of acute on chronic CHF, acute upper GI bleed, COPD exacerbation, recent heart arterial stent placment, NSTEMI, type II DM, essential hypertension, hyperlipidemia, CKD, and NIKKI. PMHX: All Active Problems (Updated 12/20/23 @ 13:27 by JONO Ribeiro) Acute kidney injury (Acute) New onset of congestive heart failure (Acute) Acute on chronic hypoxic respiratory failure (Acute) Pneumonia (Acute) Anxiety (Chronic) Adhesive capsulitis of left shoulder (Acute) Sepsis (Acute) Pneumonia (Acute ~09/2023) Acute hypoxemic respiratory failure (Acute) Kaylee rash of groin (Acute) Arteriovenous malformation (Acute ~06/2023) 06/27/23 Gastro Former smoker (Acute) Asymptomatic menopausal state (Acute) [facility] [place] 06/12/23 Type 2 diabetes mellitus with hyperglycemia, with long-term current use of insulin (Acute) [facility] Note 06/12/23 Ductal carcinoma in situ (DCIS) of left breast (Acute) [facility] Hem/Onc note 06/05/23 Iron deficiency anemia secondary to blood loss (chronic) (Acute) 05/01/23 Hem/Onc GI bleed (Chronic) Demand ischemia (Acute) Chronic respiratory failure with hypoxia (Acute) Anemia (Chronic) Esophagitis determined by endoscopy (Acute ~12/2022) Compression fracture of L3 vertebra (Acute ~2021) Mucous cyst of digit of left hand (Acute ~12/2022) s/p excision of mucous cyst DOS: 01/08/23 Trigger finger, left middle finger (Acute) 40 mg Depo-Medrol injection: 11/12/2022 s/p trigger release DOS: 05/09/23 History of breast cancer (Acute) Dermatitis, seborrheic (Acute) 07/06/22 Dr Moreno Anemia, macrocytic (Acute) 05/03/22 Hem/Onc Note Essential hypertension (Acute 05/16/04) Microalbuminuria due to type 2 diabetes mellitus (Acute) Hyperlipidemia (Acute 03/18/07) Type 2 diabetes mellitus, with long-term current use of insulin (Acute ~1999) Renal artery stenosis, [place], bilateral (Chronic) [facility] [place] Surgery; most recent OV 06/01/21 Atherosclerosis of both carotid arteries (Chronic 11/12/16) [facility] [place] Surgery; most recent OV 06/01/21; Recommend annual carotid US COPD, very severe (Chronic) [facility] Pulm O2 dependent ASCVD (arteriosclerotic cardiovascular disease) (Chronic) [facility] 06/01/21 Vascular note: Asymptomatic bilateral carotid artery stenosis Non-ST elevation (NSTEMI) myocardial infarction (Acute ~12/2020) S/p proximal LCX stent placement 01/27/21 [facility] CKD (chronic kidney disease) (Chronic) Obstructive sleep apnea (Chronic 03/02/14) Bipap w/ 2L 02 09/06/2019 Medical History Esophageal thrush Allergic contact dermatitis due to other agents Malignant neoplasm of unspecified site of left female breast (~10/2021) 11/06/21 Dr Mcgill ([email or web address] Rad[facility]Onc Office); Radiation Therapy planned 12/21/21-hormone receptor positive Gross hematuria Vulvar irritation Breast cancer in female (~05/2021) R 2002, L 2004 s/p B/L partial mastectomy, XRT, & tamoxifen. 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) Estrogen receptor positive s/p RXT, surgical removal of tumorEnteritis Back pain Post-menopausal bleeding Pelvic pain Pericarditis (~12/2020) S/p MIVaginitis and vulvovaginitis, unspecified Tobacco use disorder 30-50 PY, QUIT 1999Compression fracture of lumbar vertebra (03/14/17) Depression (11/30/02) s/p of brother (on SSRI for short time) Solitary pulmonary nodule (12/22/15) Incidental finding of 6 mm pulm nodule RLL on 11/07/[address] with 6 month f/u chest CT recommended; 04/2016 6-month f/u chest CT: resolution of nodule Pneumonia Spinal stenosis (02/04/14) Multi level on MRI Reflux esophagitis (07/16/12) LA GRADE B , EGD W/ BX 05/04/15 Osteopenia (02/14/16) DEXA 02/14/16: Fem neck t-score -1.2 --> WHO FRAX major osteoporotic 13% & hip fx 1.3% risk --> does not qualify for bisphosphonates --> Ca & vit D 03/2017 L3 compression fx --> re-calc WHO FRAX major osteoporotic 21% & hip fx 2.3% risk --> now qualifies for bisphosphonate tx, started 03/2017 Probable allergic rxn to Alendronate (1st pill Sat, and stayed thru today (but no worsening), 07/05. Agree to STOP for now. Leg cramps (04/01/14) Low Mg+ --> supplementation helped, but caused diarrhea; handout on dietary Mg+ given Iron deficiency anemia (01/02/17) S/p colo & EGD 05/2015, then capsule endoscopy & push enteroscopy with no definitive etiology identified; 11/14/2017: repeat colonoscopy (due to return of anemia) showing a colonic angioectasia, which may have been source of bleeding & anemia (no overt bleeding found). Fe supplementation & monitor 10/29/22 Seen by [facility] Hem/Onc Intraabdominal calcification (11/14/15) Incidental finding on CT 2 mm between bladder and uterus, no further eval required, AOC Hypomagnesemia (03/04/17) Hiatal hernia (02/11/14) Smaller portions Endoscopy 10/04 anemia (nothing found), [facility] Heart murmur 07/11/2016 echo: mild-moderate mitral regurgitation DJD (degenerative joint disease) (02/04/14) Lumbar spine--multiple level on MRI Surgery 10/2011, [facility] Dr. 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/21/16 [facility] [place]ascular Surgery consult: moderate stenosis, not source of clinical pathology, & no intervention or further evaluation indicated Anemia (02/11/14) Suspect chronic dz/bone marrow suppression s/p breast CA tx (radiation); s/p GI workup (possible AVMs?), NL B12/folate, elevated Epo, NL retic count; chronic iron supplementation Allergic rhinitis Superior mesenteric artery stenosis Chronic GI bleeding Headache Surgical History H/O colonoscopy (~11/02/22) 11/02/22 , 1 cecal polyp removed - f/u 10 years 11/12/23-[facility] H/O endoscopy (~06/21/22) 11/02/22 Upper GI endoscopy 11/12/23-[facility]3 non-bleeding angioectasias-biopsies taken H/O partial mastectomy (~10/26/21) Left breast S/P breast biopsy, left (05/09/21) u/s guided Core Bx History of hysterectomy, supracervical Status post coronary artery stent placement (~01/27/21) H/O laminectomy (~10/06/12) L5S1 Dr. Jarrod Ballard H/O laminectomy L5S1 Tooth Extractions Multiple Oophrectomy, Right (~2007) For unknown reason Extraction of cataract left eye surgical removal with intraocular lens implant. Dr Agee Breast, Lumpectomy (~2003) B/L for breast CA Biopsy, Lymph Node (~2003) (L) axilla for breast CA Social History/Home Situation: Lives with in a mobile home with 3-4 steps to enter with rails on both sides. Has been independent with all mobility ADL performance in the past 3 to 6 months examined for the past week where he started using her walker again due to increasing weakness and lightheadedness. Sister Venus and family lives next to them. Equipment Owned/DME: [employer] Subjective: Feels much better today. Mildly lightheaded when she sat up but felt better later on in the session. Objective: General Observation: Resting in bed. Telemetry monitoring in place. IV access through right UE. Mental Status: Alert and oriented as to person, place, time, and purpose. Able to pay attention, focus, and respond appropriately. Pain: none reported Vital Signs: After walking 150 feet BP 118/59 mmHg, heart rate 76 bpm, oxygen saturation 93% on 3 L via NC ROM: Right Upper Extremity: Shoulder Flexion WFL. Shoulder abduction WFL. Elbow flexion WFL. Wrist flexion WFL. Functional opening and closing of hand WFL. Left Upper Extremity: Shoulder Flexion allows only up to 80 degrees. Shoulder abduction allows only up to 80 degrees. Elbow flexion WFL. Wrist flexion WFL. Functional opening and closing of hand WFL. Right Lower Extremity: Hip flexion WFL. Hip abduction WFL. Knee flexion WFL. Ankle dorsiflexion WFL. Ankle plantarflexion WFL. Left Lower Extremity: Hip flexion WFL. Hip abduction WFL. Knee flexion WFL. Ankle dorsiflexion WFL. Ankle plantarflexion WFL. Strength: Right Upper Extremity: Shoulder flexors 4/5. Shoulder abductors 4/5. Elbow flexors 5/5. Elbow extensors 5/5. [employer] strong. Left Upper Extremity: Shoulder flexors 3-/5. Shoulder abductors 3-/5. Elbow flexors 4/5. Elbow extensors 4/5. [employer] strong. Right Lower Extremity: Hip flexors 4/5. Hip abductors 4/5. Knee flexors 5/5. Knee extensors 4/5. Ankle dorsiflexors 4-/5. Ankle plantarflexors 4-/5. Left Lower Extremity: Hip flexors 4/5. Hip abductors 4/5. Knee flexors 5/5. Knee extensors 4/5. Ankle dorsiflexors 4-/5. Ankle plantarflexors 4-/5. Bed Mobility/Transfers: Minimal cueing provided for use of B hands as needed for support, movement sequence, AD management, and posture to reduce fall risk and minimize pain report Sit to stand contact guard assist with FWW Stand to sit contact guard assist with FWW Gait: 20 feet using front-wheel walker with reciprocal step through gait pattern requiring only contact guard assist with wheelchair follow of sister in case patient got lightheaded. Denied headache, chest pain, and lightheadedness throughout session. Decreased gait speed. Balance: Static Sitting: Normal Dynamic Sitting: Normal Static Standing: Fair Dynamic Standing: Fair Special Tests: Mobility Limitations Standardized Measure [facility] AM-PAC 6 clicks Basic Mobility Inpatient Short Form: Raw Score: 20 CMS Score: 36% deficit Informed Consent/Education: Patient was instructed in purpose of PT consult and plan of care. Agreeable to proceed with established PT POC to achieve personal goals. Assessment: Patient presents with clinical signs and symptoms consistent with current/admitting diagnoses that have resulted to mobility limitations, gait instability, generalized weakness, and overall ADL decline as demonstrated by the following impairment level findings: 1. Decreased strength to L shoulder major muscle groups 2. Impaired sitting/standing balance 3. Impaired activity tolerance 4. Limitation of joint range of motion in L shoulder from pre-existing frozen shoulder Impairments are contributing to the following functional limitations: 1. Decline in bed mobility skills 2. Decline in transfer skills 3. Difficulty with ambulation without assistive device 4. Increased completion time for mobility ADL performance 5. Increased risk for falls 6. Difficulty with managing steps alone safely Patient is assessed as a [id number] moderate complexity based on the following: History: 73-year-old female with past medical history as indicated above Examination: Demonstrable impairment in strength, balance, and mobility level with underlying impairments and functional limitations as exhibited above as well as deficit score of 11% utilizing the [facility] Mobility Inpatient Short Form Presentation: Evolving Decision Makin moderate complexity Goals: Goals X1 week 1. Supine-Sit independent 2. Sit-Supine independent 3. Sit-Stand independent 4. Stand-Sit independent with FWW 5. Bed-Chair independent with FWW 6. Chair-Bed independent with FWW 7. Independent gait on level surface with use of FWW for at least 300 feet without report of pain nor dyspnea 8. Independent stair negotiation while holding onto B rails for at least 3 steps without report of pain nor dyspnea 9. Independent with home exercise program 10. Good static and dynamic standing balance/tolerance Plan of Care/Treatment Plan: 1-2x/day, 7 days/week x 1 week. Plan of care has been reviewed with the [employer] providing the service under Physical Therapy direction. Initiate Physical Therapy intervention for pain management as needed, strengthening, bed mobility, transfers, gait, stairs, balance training, and use of assistive device. DISCHARGE RECOMMENDATIONS: [] Home with no services [] [X Home with services. Patient will benefit from home health PT services in order to progress mobility level using least restrictive assistive ambulatory device, assess home safety, identify additional equipment needs, and establish a functional maintenance program that will increase ability of patient to remain at home. [] Home with outpatient PT [] [] SNF for continued rehabilitation [] [] [facility] [] [] SNF versus LTC based on ability to participate and progress [] TREATMENT CODE/TIME: 85771 x 25 minutes for 1 unit (14:36-15:01). Thank you for the opportunity to participate in the care of this patient. Ruby Hickman PT, DPT, CLT [facility] [place], [place]
[2023-12-20] MEDS: Normal Saline Flush 10 ML SYR IVP ×2 (16:20→21:02)
[2023-12-20] MEDS: Sucralfate 1 GM TAB PO ×2 (16:20→21:01)
--- NOTE | 2023-12-20 20:35 | RESPIRATORY ---
RT seen pt. for NIKKI daignosis. Pt. has home BiPAP machine called [employer]Station in good condition at bedside. RT has set it up, sterile water is filled out, and it's ready to be used tonight. Pt. states uses O2 3L/min with it and without it all the time. Pt's home BiPAP machine settings: Auto-BiPAP 20/9. DME is [facility].
[2023-12-20] MEDS: Magnesium Oxide 400 MG TAB PO (21:01)
[2023-12-20] MEDS: Melatonin 3 MG TAB PO (21:01)
[2023-12-20] MEDS: Citalopram 20 MG TAB PO (21:01)
[2023-12-20] MEDS: Insulin Glargine 300 UNITS/3 ML PEN 20 UNITS SC (21:35)
[2023-12-21] VITALS (11 sets, daily range): BP systolic 116–156; BP diastolic 37–71; PULSE 77–105; RESP 18–22; TEMP 36.6–37.5; O2SAT 80–92
--- NOTE | 2023-12-21 07:46 | INITIAL_ITS ---
Date of service: 12/21/23 Time of Service: 07:46 Care Management Initial Assmt Initial Assessment REASON FOR HOSPITALIZATION:: CHF exacerbation, Acute on Chronic Respiratory Failure PREVIOUS FUNCTIONAL STATUS/SOCIAL/FAMILY SUPPORTS:: Nahed lives in [place] with her Sharif. 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 She has four children, three sons and a daughter, as well as several grandchildren. 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 She has been independent with ADL's at baseline until her recent hospitalization at [place], after which she has required some support. CURRENT FUNCTIONAL STATUS:: Nahed was sitting in a chair when CM met with her. She is awake and easily engages in conversation. Per pt, she was very weak after her discharge on 12/19/23 and didn't do well. Her is helpful, however it is hard for him to get her up out of a chair or bed. Nahed also shares that her concentrator dropped on the floor yesterday whole she was having a CT scan and her is trying to get a replacement through [employer]. CM will follow. ADVANCE DIRECTIVES:: on file, [facility] brayden Najera. agent Efren Benites Has patient been provided with info about the portal/API?: Yes Did the patient sign up for the portal?: Yes (Prior to admission) CODE STATUS:: Full Code INSURANCE COVERAGE / FINANCIAL ISSUES:: BC/[place] of [place] Medicare CURRENT HOME/COMMUNITY SERVICES/EQUIPMENT:: [facility] PRIMARY CARE PHYSICIAN:: Janina Calloway POTENTIAL DISCHARGE NEEDS:: New [facility] PT/RN/[employer] [employer], discharge plan of care, follow up appointments with community providers. PATIENT/FAMILY EDUCATION NEEDS:: Review discharge instructions, limitations and plan to follow up with community providers. Discuss ask me three and goals of self care. ANTICIPATED BARRIERS TO DISCHARGE:: None identified at this time TRANSPORTATION:: Via private vehicle with family PLAN:: Anticipate Nahed will discharge home with New [facility] RN/PT/[employer]ST[employer] services. She will follow up with her community providers and discharge plan of care as recommended. Her will provide transportation. CM will follow. PFSH All Active Problems (Updated 12/20/23 @ 16:17 by Eli Lin APRN) Frequent falls (Acute) Discharge planning issues (Acute) On deep vein thrombosis (DVT) prophylaxis (Acute) Chronic disease under co-management (Acute) Acute kidney injury (Acute) New onset of congestive heart failure (Acute) Acute on chronic hypoxic respiratory failure (Acute) Pneumonia (Acute) Anxiety (Chronic) Adhesive capsulitis of left shoulder (Acute) Sepsis (Acute) Pneumonia (Acute ~09/2023) Acute hypoxemic respiratory failure (Acute) Kaylee rash of groin (Acute) Arteriovenous malformation (Acute ~06/2023) 06/27/23 Gastro Former smoker (Acute) Asymptomatic menopausal state (Acute) [facility] Endo Note 06/12/23 Type 2 diabetes mellitus with hyperglycemia, with long-term current use of insulin (Acute) [facility] Endo Note 06/12/23 Ductal carcinoma in situ (DCIS) of left breast (Acute) [facility] Hem/Onc note 06/05/23 Iron deficiency anemia secondary to blood loss (chronic) (Acute) 05/01/23 Hem/Onc GI bleed (Chronic) Demand ischemia (Acute) Chronic respiratory failure with hypoxia (Acute) Anemia (Chronic) Esophagitis determined by endoscopy (Acute ~12/2022) Compression fracture of L3 vertebra (Acute ~2021) Mucous cyst of digit of left hand (Acute ~12/2022) s/p excision of mucous cyst DOS: 01/08/23 Trigger finger, left middle finger (Acute) 40 mg Depo-Medrol injection: 11/12/2022 s/p trigger release DOS: 01/08/23 History of breast cancer (Acute) Dermatitis, seborrheic (Acute) 07/06/22 Dr Moreno Anemia, macrocytic (Acute) 05/03/22 Hem/Onc Note Essential hypertension (Acute 05/16/04) Microalbuminuria due to type 2 diabetes mellitus (Acute) Hyperlipidemia (Acute 03/18/07) Type 2 diabetes mellitus, with long-term current use of insulin (Acute ~1999) Renal artery stenosis, [place], bilateral (Chronic) [facility] Vascular Surgery; most recent OV 06/01/21 Atherosclerosis of both carotid arteries (Chronic 11/12/16) [facility] Vascular Surgery; most recent OV 06/01/21; Recommend annual carotid US COPD, very severe (Chronic) [facility] Pulm O2 dependent ASCVD (arteriosclerotic cardiovascular disease) (Chronic) [facility] 06/01/21 Vascular note: Asymptomatic bilateral carotid artery stenosis Non-ST elevation (NSTEMI) myocardial infarction (Acute ~12/2020) S/p proximal LCX stent placement 01/27/21 [facility] CKD (chronic kidney disease) (Chronic) Obstructive sleep apnea (Chronic 03/02/14) Bipap w/ 2L 02 09/06/2019 Medical History Esophageal thrush Allergic contact dermatitis due to other agents Malignant neoplasm of unspecified site of left female breast (~10/2021) 11/06/21 Dr Mcgill ([facility] Rad/Onc Office); Radiation Therapy planned 12/21/21-hormone receptor positive Gross hematuria Vulvar irritation Breast cancer in female (~05/2021) R 2002, L 2003 s/p B/L partial mastectomy, XRT, & tamoxifen. 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) Estrogen receptor positive s/p RXT, surgical removal of tumor Enteritis Back pain Post-menopausal bleeding Pelvic pain Pericarditis (~12/2020) S/p NH Vaginitis and vulvovaginitis, unspecified Tobacco use disorder 30-50 PY, QUIT 1999 Compression fracture of lumbar vertebra (03/14/17) Depression (11/30/02) s/p of brother (on SSRI for short time) Solitary pulmonary nodule (12/22/15) Incidental finding of 6 mm pulm nodule RLL on 11/07/[address] with 6 month f/u chest CT recommended; 04/2016 6-month f/u chest CT: resolution of nodule Pneumonia Spinal stenosis (02/04/14) Multi level on MRI Reflux esophagitis (07/16/12) LA GRADE B , EGD W/ BX 05/04/15 Osteopenia (02/14/16) DEXA 02/14/16: Fem neck t-score -1.2 --> WHO FRAX major osteoporotic 13% & hip fx 1.3% risk --> does not qualify for bisphosphonates --> Ca & vit D 03/2017 L3 compression fx --> re-calc WHO FRAX major osteoporotic 21% & hip fx 2.3% risk --> now qualifies for bisphosphonate tx, started 03/2017 Probable allergic rxn to Alendronate (1st pill Sat, and stayed thru today (but no worsening), 07/05. Agree to STOP for now. Leg cramps (04/01/14) Low Mg+ --> supplementation helped, but caused diarrhea; handout on dietary Mg+ given Iron deficiency anemia (01/02/17) S/p colo & EGD 05/2015, then capsule endoscopy & push enteroscopy with no definitive etiology identified; 11/14/2017: repeat colonoscopy (due to return of anemia) showing a colonic angioectasia, which may have been source of bleeding & anemia (no overt bleeding found). Fe supplementation & monitor 10/29/22 Seen by [facility] Hem/Onc Intraabdominal calcification (11/14/15) Incidental finding on CT 2 mm between bladder and uterus, no further eval required, AOC Hypomagnesemia (03/04/17) Hiatal hernia (02/11/14) Smaller portions Endoscopy 10/04 anemia (nothing found), [facility] Heart murmur 07/11/2016 echo: mild-moderate mitral regurgitation DJD (degenerative joint disease) (02/04/14) Lumbar spine--multiple level on MRI Surgery 10/2011, [facility] Dr. 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/21/16 [facility] Vascular Surgery consult: moderate stenosis, not source of clinical pathology, & no intervention or further evaluation indicated Anemia (02/11/14) Suspect chronic dz/bone marrow suppression s/p breast CA tx (radiation); s/p GI workup (possible AVMs?), NL B12/folate, elevated Epo, NL retic count; chronic iron supplementation Allergic rhinitis Superior mesenteric artery stenosis Chronic GI bleeding Headache Surgical History H/O colonoscopy (~11/02/22) 11/02/22 , 1 cecal polyp removed - f/u 10 years 11/12/23-[facility] H/O endoscopy (~06/21/22) 11/02/22 Upper GI endoscopy 11/12/23-[facility]-3 non-bleeding angioectasias-biopsies taken H/O partial mastectomy (~10/26/21) Left breast S/P breast biopsy, left (05/09/21) u/s guided Core Bx History of hysterectomy, supracervical Status post coronary artery stent placement (~01/27/21) H/O laminectomy (~10/06/12) L5S1 Dr. Jarrod Ballard H/O laminectomy L5S1 Tooth Extractions Multiple Oophrectomy, Right (~2007) For unknown reason Extraction of cataract left eye surgical removal with intraocular lens implant. Dr Agee Breast, Lumpectomy (~2003) B/L for breast CA Biopsy, Lymph Node (~2003) (L) axilla for breast CA Family History Sister Breast cancer Mother , 89 Alzheimer's dementia Breast cancer Father , AGE 75 Alcohol abuse Cirrhosis Sister Neoplasm uterine CA Sister Heart disease Brother Heart disease Niece Breast cancer Social History Smoking/Tobacco Use Status: Former Tobacco Use tobacco type: cigarettes Quit Date: 09/02/95 Tobacco: How many years used: 25 Smoking risk assessment performed?: Yes Alcohol Intake: former Details: none Drug use: Never Substance use type: does not use Adopted: No Caregiver/Support person: No Foster care: No Household members: spouse Housing: house Number of Children: 4 Communication Needs: None Pets and animals: No Current gender identity: female What type of physical activity do you participate in: regular exercise Duration: < 15 minutes/day Frequency: 3-4 times per week Mell/Synagogue: Religion Seatbelt use: always Drive intox or ride w/intox cdl a driver: No Working smoke detector in home: Yes Fire extinguisher in home: Yes Carbon monox detector in home: Yes Do you feel safe at home: Yes Do you feel safe in your relationship?: Yes History History Para Hx # Term Pregnancies Multiple births Hx # Pregnancies Ectopic pregnancies AB induced Hx Number of Living Children 4 AB spontaneous Readmission Within the Past 30 Days Yes or No: Yes Date of First Admission Date of 1st Admission: 12/18/23 Date of this Admission Date of Admission: 12/20/23 This admission was: Through ED Office Visit Since 1st Admission Have you seen your PCP in the office since discharge?: No Had an appointment Been Scheduled?: Yes Date of Scheduled Appointment: 01/14/24, placed on cancellation list Speicalist Appointments Have you seen any other specialist since your 1st Admission?: No I. Interview patient and/or Family Difficulty reaching your doctor or getting an office appt?: Yes Have you had trouble purchasing/ or taking medication?: No Have you had trouble with getting meals at home?: No Did you feel ready for discharge when you left the last time: No Why did you not feel ready for discharge?: [place] very weak Were services received that you thought were set up on disch: No Why weren't services received?: Patient was re-admitted day after her last discharge. [facility] did not have a chance to see patient yet Did you call your physician beore you came to the ED?: No Did your physician tell you to come in?: No If the patient had a VNA ordered Did the patient have a VNA order?: Yes Did you call the VNA before you came?: No Did the VNA tell you to come to the hospital?: No Do you know if the VNA called your physician?: No ED visits How many ED visits in the past 12 months: 6 Assessment for Readmission Summary of readmission circumstances, based upon interviews: Nahed was discharged home, became weak, unable to get her out of bed or chair, [facility] RN,PT ordered following her last discharge however they had not had a chance to do a home visit. SDOH(Care Management) Screening Will the Patient Participate in the Screening?: Yes Do you worry about having a steady place to live?: no Problems where you live: no known problems In the past 12 months, have you had to go without electric, gas, oil or water in your home?: no Have you or anyone in your house had to go without enough food to eat?: no Has lack of transportation kept you from medical appointments or from doing things needed for daily living?: no Has anyone in your support network made you feel unsafe for any reason?: no Anticipated HH Services Anticipated HH Services at Discharge [facility] [employer]ST[employer], PT and RN. Following Provider: Janina Calloway.
[2023-12-21] MEDS: Furosemide 40 MG/4 ML VIAL IVP ×2 (07:57→16:48)
[2023-12-21] MEDS: Letrozole 2.5 MG TAB PO (07:57)
[2023-12-21] MEDS: Multivitamin TAB 1 TAB PO (07:57)
[2023-12-21] MEDS: Tiotropium/Olodaterol 10 PUFF INHALER 2 PUFF IH (07:58)
[2023-12-21] MEDS: Empaglifozin 25 MG TAB PO (07:58)
[2023-12-21] MEDS: Sucralfate 1 GM TAB PO ×4 (07:58→20:08)
[2023-12-21] MEDS: Magnesium Oxide 400 MG TAB PO ×2 (07:59→20:04)
[2023-12-21] MEDS: Clopidogrel 75 MG TAB PO (07:59)
[2023-12-21] MEDS: Cetirizine 10 MG TAB PO (07:59)
[2023-12-21] MEDS: Pantoprazole 40 MG TABCR PO (08:00)
[2023-12-21] MEDS: Aspirin E.C. 81 MG TABEC PO (08:00)
[2023-12-21] MEDS: Montelukast 10 MG TAB PO (08:00)
[2023-12-21] MEDS: Fluticasone NASAL SPRAY 16 GM BTL NS (08:03)
[2023-12-21] MEDS: Normal Saline Flush 10 ML SYR IVP ×2 (08:03→22:56)
[2023-12-21] MEDS: Insulin Glargine 300 UNITS/3 ML PEN 20 UNITS SC ×2 (08:52→21:08)
--- NOTE | 2023-12-21 09:50 | PT.INTREAT ---
Date of service: 12/21/23 Time of Service: 09:10 PT Notes Visit Reasons: CHF Exacerbation,Acute on Chronic Respiratory Fail Inpatient Physical Therapy Treatment Note [facility] Date: 12/21/2023 PRECAUTIONS: Fall, Standard, Activities as tolerated SUBJECTIVE: Stated she noticed weakness in her bilateral LEs, but no dizziness with ambulation today. OBJECTIVE: ? PAIN: Complaints of muscle aching in legs with movement. VITALS: ? Pre-Treatment: O2 93% ? Post-Treatment: O2 88%, with increase to 92% within 30 to 60 seconds, HR in 103-104 b/m range. Therapeutic Activities (31881u1 - 15 minutes): Direct one-on-one instruction in dynamic activities to improve functional performance. ? BED MOBILITY/TRANSFERS? Sit-stand: SBA ? Stand-sit: SBA? Provided skilled cues and instruction on performance and technique throughout. GAIT? Assistive Device: FWW? Weight bearing: full Assist: ?SBA ? Distance:?20ft x 2 and 35ft x2 Deviations: Utilized w/c follow incase of dizziness and muscle weakness. ? Therapeutic Exercises ([id number] - 10 minutes): Direct one-on-one instruction in therapeutic exercises to develop strength, endurance, range of motion and flexibility. Able to perform LAQs, seated march, seated hip abd/add and ankle pumps for 10 reps each. ? Provided skilled instruction in proper exercise performance Provided skilled manual cues to facilitate proper muscle recruitment and/or form ASSESSMENT:? Tolerated ambulation and seated exercises well with good effort given, but performed in a slow and controlled manner. PLAN: Continue with current POC, advancing as able to tolerate. TREATMENT CODE/TIME: [id number] and [id number], 9:10 to 9:35 (25 minutes)
[2023-12-21] MEDS: Insulin Aspart 300 UNITS/3 ML PEN SC ×2 (11:37→16:49)
--- NOTE | 2023-12-21 13:02 | PGE_ITS ---
<Statement entered by Jonny Frost - 12/21/23 18:45> we discussed SGLT2i therapy for CHF as well Date of Service Date of service: 12/21/23 Time of Service: 13:02 Assessment and Plan Assessment and plan (1) Acute kidney injury: Status: Acute Assessment and plan: BMP in AM hold losartan, famotidine, HCTZ resume as per Cr. improvement avoid nephrotoxic meds IVF contraindicated d/t below vs renal bed congestion (2) New onset of congestive heart failure: Status: Acute Assessment and plan: Echocardiogram: LVEF 80% Continue IV Lasix Resume home dose of metoprolol succinate, Telemetry: SR Strict I&O Daily weight : was 62.9 on 12/19 and is 62.6 today (3) Acute on chronic hypoxic respiratory failure: Status: Acute Assessment and plan: Oxygen supplementation and wean as tolerated On home dose of oxygen supplementation today O2 Bled through home CPAP overnight (4) Chronic disease under co-management: Status: Acute Assessment and plan: HTN: as per home meds regimen unless held to be resumed as per improved Cr. DM: continue Gluc AC and HS with SSI, and basal dose, jardiance (5) Frequent falls: Status: Acute Assessment and plan: PT consult (6) On deep vein thrombosis (DVT) prophylaxis: Status: Acute Assessment and plan: Continue TEDs frequent mobilization (7) Discharge planning issues: Status: Acute Assessment and plan: CM to f/u Discharge packets from [facility] still pending. Discussed with Dr. Frost Subjective Subjective Patient reports: no new complaints, feels better, tolerating liquids well, tolerating a regular diet, voiding w/o difficulty, flatus, bowel movement, afebrile and other (Denies dizziness, lightheadedness); denies blood in stool, nausea, vomiting or shortness of breath Exam Narrative Exam Narrative: Constitutional The patient is sitting in bed, comfortable and cooperative during the interview. HENMT: Head is atraumatic. Facial structures with normal appearance Eyes: Well aligned, intact ROM Neuro:alert and oriented to self, person, place, time and situation. No neurological focal deficit Resp: Normal respiratory pattern, speaks in full sentences, unlabored breathing, clear upper lung bilaterally but decreased left base Cardio: Tele SR HR 78-94, regular rhythm, S1, S2, no murmur, positive pulses to all 4 extremities, no edema GI: Abdomen is not distended, soft and non tender, bowel sounds are present Integumentary: No skin lesions or rash Extremities: strength 5/5 to bilateral lower and upper extremities Psych: RASS 0, congruent mood and normal affect. Objective Last Vital Signs Temp 37 C 12/21/23 10:49 Pulse 94 H 12/21/23 10:49 Resp 18 12/21/23 10:49 BP 116/71 12/21/23 10:49 Pulse Ox 92 12/21/23 10:49 Time Spent with Patient Time Spent with Patient: >50 minutes Time was spent: preparing to see the patient(eg.review tests), obtaining and/or reviewing separately otained hiistory, ordering medications,tests, procedures, referring, communicating with other health care connector, indepentently interpreting results, counseling the patient and care coordination
[2023-12-21 13:34] LABS: Abs Immature Grans 0.13 10^3/uL (0.0-0.06); Absolute Basophil Count 0.02 10^3/uL (0.0-0.2); Absolute Eosinophil Count 0.36 10^3/uL (0.0-0.7); Absolute Lymphocyte Count 0.42 10^3/uL (1.2-3.4); Absolute Monocyte Count 1.42 10^3/uL (0.1-0.8); Absolute Neutrophil Count 5.01 10^3/uL (1.2-6.7); Basophils % 0.3; Eosinophils % 4.9; HCT 26.4 % (36.0-46.0); HGB 8.4 g/dL (11.2-15.7); Immature Grans % 1.8; Lymphocytes % 5.7; MCH 29.3 pg (27.0-33.0); MCHC 31.8 % (32.0-36.0); MCV 92 fL (80-95); MPV 9.2 fL (8.0-11.0); Monocytes % 19.3; Nucleated RBC 0.3 % (0.0-0.3); Platelet Count 239 10^3/uL (130-400); RBC 2.87 10^6/uL (3.93-5.22); RDW 15.9 % (11.7-14.6); RDW-SD 52.1 fL; WBC 7.36 10^3/uL (4.4-10.8)
[2023-12-21] MEDS: Metoprolol CR 50 MG TABCR PO (13:34)
[2023-12-21 13:45] LABS: BUN 52 mg/dL (7-18); CREATININE 1.8 mg/dL (0.55-1.02); Calcium 9.7 mg/dL (8.5-10.1); Chloride 90 mmol/L (98-107); Glucose 185 mg/dL (74-106); Potassium 4.5 mmol/L (3.5-5.1); Sodium 131 mmol/L (136-145)
[2023-12-21 15:01] LABS: Bilirubin Negative (Negative); Blood Negative (Negative); Clarity Clear (Clear); Glucose 500 mg/dL (Negative); Ketones Negative (Negative); Leukocyte Esterase Negative (Negative); Nitrite Negative (Negative); Urobilinogen 0.2 mg/dL (Up to 0.2)
[2023-12-21] MEDS: Melatonin 3 MG TAB PO (20:04)
[2023-12-21] MEDS: Citalopram 20 MG TAB PO (20:04)
[2023-12-22] VITALS (13 sets, daily range): BP systolic 85–123; BP diastolic 35–55; PULSE 70–87; RESP 17–22; TEMP 36–37.2; O2SAT 85–94
[2023-12-22 06:51] LABS: Abs Immature Grans 0.12 10^3/uL (0.0-0.06); Absolute Basophil Count 0.02 10^3/uL (0.0-0.2); Absolute Eosinophil Count 0.38 10^3/uL (0.0-0.7); Absolute Lymphocyte Count 0.44 10^3/uL (1.2-3.4); Absolute Neutrophil Count 3.95 10^3/uL (1.2-6.7); Basophils % 0.3; HCT 25.5 % (36.0-46.0); Immature Grans % 1.9; MCH 28.8 pg (27.0-33.0); MCHC 31.4 % (32.0-36.0); MCV 92 fL (80-95); MPV 9.4 fL (8.0-11.0); Monocytes % 22.2; Neutrophils % 62.6; Nucleated RBC 0.3 % (0.0-0.3); Platelet Count 239 10^3/uL (130-400); RBC 2.78 10^6/uL (3.93-5.22); RDW 15.7 % (11.7-14.6); RDW-SD 52.5 fL; WBC 6.31 10^3/uL (4.4-10.8)
[2023-12-22 07:12] LABS: ALT 55 U/L (14-59); AST 30 U/L (15-37); Albumin 2.3 g/dL (3.4-5.0); Alkaline Phosphatase 57 U/L (46-116); Anion Gap 5.7 mmol/L (3-11); BUN 52 mg/dL (7-18); Bilirubin, Total 0.4 mg/dL (0.2-1.0); CO2 36.3 mmol/L (21.0-32.0); CREATININE 1.7 mg/dL (0.55-1.02); Calcium 9.7 mg/dL (8.5-10.1); Chloride 90 mmol/L (98-107); Estimated GFR 31.27 (mL/min/1.73m2); Glucose 152 mg/dL (74-106); Potassium 4.4 mmol/L (3.5-5.1); Sodium 132 mmol/L (136-145); Total Protein 7.2 g/dL (6.4-8.2)
[2023-12-22] MEDS: Tiotropium/Olodaterol 10 PUFF INHALER 2 PUFF IH (08:04)
[2023-12-22] MEDS: Insulin Aspart 300 UNITS/3 ML PEN SC ×3 (08:25→16:50)
[2023-12-22] MEDS: Fluticasone NASAL SPRAY 16 GM BTL NS (08:25)
[2023-12-22] MEDS: Insulin Glargine 300 UNITS/3 ML PEN 20 UNITS SC ×2 (08:25→20:46)
[2023-12-22] MEDS: Letrozole 2.5 MG TAB PO (08:26)
[2023-12-22] MEDS: Cetirizine 10 MG TAB PO (08:26)
[2023-12-22] MEDS: Clopidogrel 75 MG TAB PO (08:26)
[2023-12-22] MEDS: Empaglifozin 25 MG TAB PO (08:26)
[2023-12-22] MEDS: Magnesium Oxide 400 MG TAB PO ×2 (08:26→19:41)
[2023-12-22] MEDS: Multivitamin TAB 1 TAB PO (08:26)
[2023-12-22] MEDS: Furosemide 40 MG/4 ML VIAL IVP (08:26)
[2023-12-22] MEDS: Metoprolol CR 50 MG TABCR PO (08:26)
[2023-12-22] MEDS: Sucralfate 1 GM TAB PO ×4 (08:26→20:46)
[2023-12-22] MEDS: Normal Saline Flush 10 ML SYR IVP ×2 (08:26→22:19)
[2023-12-22] MEDS: Pantoprazole 40 MG TABCR PO (08:26)
[2023-12-22] MEDS: Montelukast 10 MG TAB PO (08:26)
[2023-12-22] MEDS: Aspirin E.C. 81 MG TABEC PO (08:26)
--- NOTE | 2023-12-22 09:22 | W.PM.PROGNOT ---
Date of Service Date of service: 12/22/23 Time of Service: 09:30 Assessment and Plan Assessment and plan (1) Acute kidney injury: Status: Acute Assessment and plan: Cr back to 1.7, previous 1.8, baseline 1.1 to 1.6 hold losartan, famotidine, HCTZ resume as per Cr. improvement avoid nephrotoxic meds IVF contraindicated d/t below vs renal bed congestion (2) New onset of congestive heart failure: Status: Acute Assessment and plan: Echocardiogram: LVEF 80%, with 50% IVC collapse on inspiration holding IV Lasix for now Home dose of metoprolol succinate resumed On jardiance Telemetry: SR Strict I&O Daily weight : 62.9 from 62.6 on 12/20 (3) Acute on chronic hypoxic respiratory failure: Status: Acute Assessment and plan: Wean as tolerated to baseline on 3l/min On home dose of oxygen supplementation today Home CPAP (4) Chronic disease under co-management: Status: Acute Assessment and plan: HTN: Continue as per home meds regimen unless held to be resumed as per improved Cr. DM: Gluc AC and HS with SSI, and basal dose, jardiance (5) Frequent falls: Status: Acute Assessment and plan: PT consult (6) Hyponatremia: Status: Acute Assessment and plan: Na 132 Water restriction BMP on 12/22 (7) On deep vein thrombosis (DVT) prophylaxis: Status: Acute Assessment and plan: Continue TEDs frequent mobilization (8) Discharge planning issues: Status: Acute Assessment and plan: CM to f/u Discharge packets from [facility] still pending. Discussed with Dr. Frost Subjective Subjective Patient reports: no new complaints, feels better, tolerating liquids well, tolerating a regular diet, flatus and no bowel movement; denies voiding w/o difficulty, diarrhea, vomiting, shortness of breath or fever Exam Narrative Exam Narrative: Constitutional The patient is in bed, comfortable and cooperative during the interview. Neuro:alert and oriented X4 Resp: clear upper lungs but decreased left base Cardio: Tele SR HR 67, regular rhythm, S1, S2, no murmur, positive pulses to all 4 extremities, no edema GI: Abdomen is not distended, soft and non tender, bowel sounds are present Integumentary: No skin lesions or rash Extremities: strength 5/5 to bilateral lower and upper extremities Psych: RASS 0, congruent mood and normal affect. Objective Last Vital Signs Temp 37.2 C 12/22/23 07:33 Pulse 72 12/22/23 07:33 Resp 17 12/22/23 07:33 BP 105/44 L 12/22/23 07:33 Pulse Ox 94 12/22/23 07:33 Laboratory Results - last 24 hr 12/21/23 12/21/23 12/22/23 13:25 14:50 06:42 WBC 7.36 6.31 RBC 2.87 L 2.78 L Hgb 8.4 L 8.0 L Hct 26.4 L 25.5 L MCV 92 92 MCH 29.3 28.8 MCHC 31.8 L 31.4 L RDW 15.9 H 15.7 H Plt Count 239 239 MPV 9.2 9.4 Immature Gran % 1.8 1.9 Neutrophils % 68.0 62.6 Lymphocytes % 5.7 7.0 Monocytes % 19.3 22.2 Eosinophils % 4.9 6.0 Basophils % 0.3 0.3 Nucleated RBC % 0.3 0.3 Absolute Neutrophils 5.01 3.95 Absolute Lymphocytes 0.42 L 0.44 L Absolute Monocytes 1.42 H 1.40 H Absolute Eosinophils 0.36 0.38 Absolute Basophils 0.02 0.02 Sodium 131 L 132 L Potassium 4.5 4.4 Chloride 90 L 90 L Carbon Dioxide 36.0 H 36.3 H Anion Gap 5.0 5.7 BUN 52 H 52 H Creatinine 1.8 H 1.7 H Est GFR (CKD-EPI 2020) 29.20 31.27 Glucose 185 H 152 H Calcium 9.7 9.7 Total Bilirubin 0.4 AST 30 ALT 55 Alkaline Phosphatase 57 Total Protein 7.2 Albumin 2.3 L Urine Color Yellow Urine Clarity Clear Urine pH 5.0 Ur Specific [place] 1.010 Urine Protein Negative Urine Ketones Negative Urine Blood Negative Urine Nitrite Negative Urine Bilirubin Negative Urine Urobilinogen 0.2 Ur Leukocyte Esterase Negative Urine Glucose 500 H Time Spent with Patient Time Spent with Patient: >50 minutes Time was spent: preparing to see the patient(eg.review tests), obtaining and/or reviewing separately otained hiistory, ordering medications,tests, procedures, referring, communicating with other health chronic care nurse, indepentently interpreting results, counseling the patient and care coordination
--- NOTE | 2023-12-22 11:12 | PT.INTREAT ---
Date of service: 12/22/23 Time of Service: 10:15 PT Notes Visit Reasons: CHF Exacerbation,Acute on Chronic Respiratory Fail Inpatient Physical Therapy Treatment Note [facility] Date: 12/22/2023 PRECAUTIONS: Fall, Standard, Activities as tolerated SUBJECTIVE: Not noticing dizziness or nausea today with activity. Legs get very tired with standing and ambulation. Not having the aching in her legs today. OBJECTIVE: ? PAIN: Left shoulder is sensitive with any type of reaching out to the side. Use of O2 supplement at 3L while participating in PT services. Indicated she utilizes 3L at home also. VITALS: Orthostatic pressures taken by nursing prior to ambulation: Supine: HR 77 b/m, BP 109/39 Sit : HR 77 b/m, BP 95/45 Standing: HR 87 b/m, BP 85/35 Post ambulation: HR 77 b/m, 110/39, O2 drops to 88% with ambulation but recovers to 93% with 30-60 second seated break ? Therapeutic Activities (40893s4): Direct one-on-one instruction in dynamic activities to improve functional performance. ? BED MOBILITY/TRANSFERS? Sit-stand: SBA with verbal cueing for safety, tend to not push off from chair arms, but grabs walker in front of her. ? Stand-sit: SBA with verbal cueing for safety to reach back for arms of chair prior to lowering to sitting position.? Provided skilled cues and instruction on performance and technique throughout. We discussed continuing to do independent seated leg exercises, including ankle pumps, LAQs, seated marching and seated hip abd/adduction. ? ? GAIT? Assistive Device: FWW, with w/c follow when legs get tired. ? Weight bearing: Full Assist: SBA/CGA ? Distance:? 140 ft, but does require a seated break every 70ft due to legs getting weak.? Deviation: Good stability with FWW, but does require verbal cueing to stand straight and lift head up when walking.? Provided skilled instruction in proper exercise performance Provided skilled manual cues to facilitate proper muscle recruitment and/or form ASSESSMENT:? Legs were pretty tired once back to room. Was not able to complete full small loop. PLAN: Continue to progress activity as patient is able to tolerate. Continue to monitor vitals. TREATMENT CODE/TIME: [id number], 30 minutes
[2023-12-22] MEDS: Senna TAB 1 TAB PO (19:41)
[2023-12-22] MEDS: Melatonin 3 MG TAB PO (19:41)
[2023-12-22] MEDS: Citalopram 20 MG TAB PO (19:41)
[2023-12-23] VITALS (14 sets, daily range): BP systolic 93–142; BP diastolic 40–60; PULSE 74–83; RESP 16–20; TEMP 36.6–38.1; O2SAT 77–94
[2023-12-23 06:29] LABS: Abs Immature Grans 0.12 10^3/uL (0.0-0.06); Absolute Basophil Count 0.02 10^3/uL (0.0-0.2); Absolute Lymphocyte Count 0.42 10^3/uL (1.2-3.4); Absolute Monocyte Count 1.17 10^3/uL (0.1-0.8); Absolute Neutrophil Count 2.65 10^3/uL (1.2-6.7); Basophils % 0.4; Eosinophils % 8.4; HCT 23.4 % (36.0-46.0); HGB 7.5 g/dL (11.2-15.7); Immature Grans % 2.5; Lymphocytes % 8.8; MCH 29.3 pg (27.0-33.0); MCHC 32.1 % (32.0-36.0); MCV 91 fL (80-95); MPV 9.6 fL (8.0-11.0); Monocytes % 24.5; Neutrophils % 55.4; Platelet Count 246 10^3/uL (130-400); RBC 2.56 10^6/uL (3.93-5.22); RDW 15.6 % (11.7-14.6); RDW-SD 51.8 fL; WBC 4.78 10^3/uL (4.4-10.8)
[2023-12-23 06:37] LABS: Anion Gap 5.6 mmol/L (3-11); BUN 55 mg/dL (7-18); CO2 37.4 mmol/L (21.0-32.0); CREATININE 1.6 mg/dL (0.55-1.02); Calcium 9.3 mg/dL (8.5-10.1); Chloride 91 mmol/L (98-107); Estimated GFR 33.63 (mL/min/1.73m2); Glucose 129 mg/dL (74-106); Magnesium 2.6 mg/dL (1.8-2.4); Potassium 4.2 mmol/L (3.5-5.1); Sodium 134 mmol/L (136-145)
[2023-12-23] MEDS: Magnesium Oxide 400 MG TAB PO ×2 (07:49→21:05)
[2023-12-23] MEDS: Pantoprazole 40 MG TABCR PO (07:50)
[2023-12-23] MEDS: Clopidogrel 75 MG TAB PO (07:50)
[2023-12-23] MEDS: Montelukast 10 MG TAB PO (07:50)
[2023-12-23] MEDS: Sucralfate 1 GM TAB PO ×4 (07:51→21:04)
[2023-12-23] MEDS: Multivitamin TAB 1 TAB PO (07:51)
[2023-12-23] MEDS: Empaglifozin 25 MG TAB PO (07:51)
[2023-12-23] MEDS: Cetirizine 10 MG TAB PO (07:51)
[2023-12-23] MEDS: Letrozole 2.5 MG TAB PO (07:51)
[2023-12-23] MEDS: Aspirin E.C. 81 MG TABEC PO (07:51)
[2023-12-23] MEDS: Metoprolol CR 50 MG TABCR PO (07:51)
[2023-12-23] MEDS: Normal Saline Flush 10 ML SYR IVP ×3 (07:52→21:09)
[2023-12-23] MEDS: Tiotropium/Olodaterol 10 PUFF INHALER 2 PUFF IH (08:35)
--- NOTE | 2023-12-23 08:41 | CMPROGNOTE_ITS ---
Date of service: 12/23/23 Time of Service: 08:41 Care Management Progress Note Progress Note Text Progress Note Text: S/O:Nahed was lying in bed visiting with her sister when CM met with her. She was pleasant and engaged easily with CM. Nahed stated that she is not having a very good day today. Her breathing is worse and she is going to receive additional Lasix. Nahed's oxygen saturations remains in the low 90s on her baseline supplemental oxygen at 3L/min. Nahed stated that she does not feel she would be able to go home like this and resume self care. Her sister also stated that her would not be able to manage her needs at this time. CM asked if Nahed would consider SNF for short term rehab and Nahed did not say NO; she said she would think about it. CM provided her with a [place] of SNFs in [place]. CM also discussed the swing bed program and the fact that our SB program needs to be very limited as we are a critical access hospital whose primary role is to care for the patients in our community who require hospital level of care. CM also explained what Palliative Care can offer as Nahed's sister had questions about that as well. A Palliative consult has been requested. A: Nahed is a 73 year old woman admitted to [facility] on 12/20/23 with CHF P:Anticipate Nahed will discharge home with New [facility] RN/PT/APPLICATION ADMINISTRATOR services. She will follow up with her community providers and discharge plan of care as recommended. Her will provide transportation. CM will follow and continue to assess for discharge needs. SDOH(Care Management) Screening Will the Patient Participate in the Screening?: Yes Do you worry about having a steady place to live?: no Problems where you live: no known problems In the past 12 months, have you had to go without electric, gas, oil or water in your home?: no Have you or anyone in your house had to go without enough food to eat?: no Has lack of transportation kept you from medical appointments or from doing things needed for daily living?: no Has anyone in your support network made you feel unsafe for any reason?: no
[2023-12-23] MEDS: Insulin Glargine 300 UNITS/3 ML PEN 20 UNITS SC ×2 (08:53→21:20)
[2023-12-23] MEDS: Fluticasone NASAL SPRAY 16 GM BTL NS (08:54)
--- NOTE | 2023-12-23 10:25 | PT.INTREAT ---
PT Notes Visit Reasons: CHF Exacerbation,Acute on Chronic Respiratory Fail Inpatient Physical Therapy Treatment Note [facility] Date: 12/23/2023 PRECAUTIONS: Fall. Standard. Activities as tolerated. SUBJECTIVE: Feels stiff today. Not as fatigued and weak as she was yesterday. States that at home, after her most recent heart attack, she goes into a bout of coughing after exerting some effort, feels out of breath and then lightheaded. OBJECTIVE: ? PAIN: None reported during this session VITALS: Oxygen saturation low of 82% on 3 L during the first walk; 80% during the second walk ? BED MOBILITY/TRANSFERS: Supine to sit: stand by assist ? Sit-stand: stand by assist, cueing needed to use B hands for support? Stand-sit: stand by assist, cueing needed to use B hands for support? GAIT? Assistive Device: FWW, with w/c follow when legs get tired; continuous use of pulse oximeter on R index finger during walk? Weight bearing: Full Assist: stand by assist ? Distance:? 150 feet + 150 feet ? Deviation: After the first 150 feet, patient went into a coughing bout, desaturated to 82% on 2 L and needed to be titrated up to 4 L as as she has stayed below 88% for more than 3 minute. After the second trip of 150 feet, patient had another bout of coughing and desaturated again to 80% for about 2-3 minutes and did not need need to be brought up to 4L to restabilize.? THERA EX: Chest expansion exercises wit DBE and shoulder flexion/ext x 5 Chest expansion exercises wit DBE and shoulder hor abd/add x 5 ASSESSMENT:? Minimally short of breath and fatigued at end of session. Patient was advised that at home if she starts coughing, to stop what ever she is doing and rest as well as do deepe breathing exercises. Also advised that she may ramp up supplementaion to 4 L when she needs to get OOB and do some activity at home. PLAN: Continue to progress activity as patient is able to tolerate. Continue to monitor vitals. TREATMENT CODE/TIME: 45504 x 33 minutes for 2 units (10:25-11:08). In the afternoon, MARU Benitez advised to hold off on patient due worsened shortness of breath at rest. ?
[2023-12-23] MEDS: IRON SUCROSE COMPLEX 300 MG in Normal Saline 250 ML 167 MG IVPB (11:33)
[2023-12-23] MEDS: Insulin Aspart 300 UNITS/3 ML PEN SC ×2 (11:57→17:12)
--- NOTE | 2023-12-23 12:47 | W.PM.DS.N ---
Date of service: 12/23/23 Time of Service: 12:48 DS: Diagnosis Discharge Diagnosis (1) Acute kidney injury: Status: Acute (2) New onset of congestive heart failure: Status: Acute (3) Acute on chronic hypoxic respiratory failure: Status: Acute (4) Chronic disease under co-management: Status: Acute (5) Frequent falls: Status: Acute (6) Hyponatremia: Status: Acute (7) On deep vein thrombosis (DVT) prophylaxis: Status: Acute (8) Discharge planning issues: Status: Acute Discharge Plan Disposition Condition: Stable Discharge Details Reason For Visit: CHF Exacerbation,Acute on Chronic Respiratory Fail Admit Date/Time: 12/20/23 13:27 Admit Provider: Efren Barros Attending Provider: Efren Barros Primary Care Provider: Janina Calloway Home Meds and New Rx's Prescriptions: No Action montelukast 10 mg tablet 10 mg PO DAILY insulin glargine [Lantus Solostar U-100 Insulin] 100 unit/mL (3 mL) insulin pen See Rx Instructions subcut BID Rx Instructions: 20 Units daily--pt instructed to increase by 2 units every 3 days if fasting BG consistently >150. Decrease 2 units if fasting BG consistently <90--[facility]o Note 06/12/23 nitroglycerin 0.4 mg tablet, sublingual 0.4 mg sublingual Q5M PRN (Reason: chest pain) Qty: 30 6RF Rx Instructions: do not exceed 3 doses per episode (DME) lancets [Sure Comfort Lancets] 28 gauge misc 1 ea Miscellaneous DAILY Qty: 100 3RF Rx Instructions: Dx: E11.9 to maintain HbA1C less than 7% Stiolto Respimat 2.5-2.5 mcg/actuation mist 2 puff inhalation DAILY Qty: 4 12RF citalopram 10 mg tablet 20 mg PO QHS Qty: 60 1RF Rx Instructions: Trial, 10mg daily x 1 week Oxygen EACH NS At Night Qty: 2 0RF Patient Comments: 2 L at night and CPAP- patient states she wore these 11/10/17 (DME) FreeStyle Basia 2 [place] Misc See Rx Instructions .ROUTE .MEDSUPPLY Qty: 1 0RF Rx Instructions: As directed Prolia 60 mg/mL syringe 60 mg subcut [id number] letrozole 2.5 mg tablet 2.5 mg PO DAILY Rx Instructions: 09/22/21 Hem/Onc prescribes. (DME) Blood Glucose Test Strip See Rx Instructions .ROUTE .MEDSUPPLY Qty: 250 1RF Rx Instructions: As directed to check blood glucose three times daily. On insulin. Dispense covered brand (Freestyle Lite) fiber supplements 1 tab PO DAILY magnesium oxide 400 mg (241.3 mg magnesium) tablet See Rx Instructions PO .COMPLEX Qty: 180 3RF Rx Instructions: 400 mg AM and PM as per María Mendoza cetirizine 10 mg tablet 10 mg PO DAILY Qty: 90 3RF sucralfate [Carafate] 1 gram tablet 1 g PO QACHS Qty: 60 0RF (DME) FreeStyle Basia 2 Sensor Kit See Rx Instructions .ROUTE .MEDSUPPLY Qty: 6 3RF Rx Instructions: As directed hydrochlorothiazide 25 mg tablet 25 mg PO DAILY AM Qty: 90 3RF valsartan 160 mg tablet 160 mg PO DAILY Qty: 90 3RF Trulicity 0.75 mg/0.5 mL pen injector 1.5 mg subcut QWEEK Rx Instructions: 0.75mg weekly for 4 weeks--[facility]o Note 06/12/23 increased 1.5mg weekly 07/17/23 [facility] Note insulin lispro [Humalog KwikPen Insulin] 100 unit/mL insulin pen 12 unit subcut TID Hold Instructions: Resume on 12/26/23. As per PCP Patient Comments: 18 Units with meals--[facility] Endo Note 06/12/23 12 Units with meals--[facility]o Note 07/17/23 rosuvastatin 40 mg tablet See Rx Instructions .ROUTE .COMPLEX Qty: 90 3RF Hold Instructions: Home Medication placed on hold at Doctor's office Dose Instruction: TAKE ONE TABLET BY MOUTH EVERY DAY Rx Instructions: TAKE ONE TABLET BY MOUTH EVERY DAY (DME) pen needle, diabetic [BD Marina 2nd Gen Pen Needle] 32 gauge x 5/32 needle See Rx Instructions .ROUTE .COMPLEX Qty: 400 3RF Dose Instruction: USE FOUR TIMES A DAY Rx Instructions: USE FOUR TIMES A DAY albuterol sulfate 2.5 mg /3 mL (0.083 %) solution for nebulization 2.5 mg inhalation Q4H PRN (Reason: shortness of breath or wheezing) Qty: 75 0RF metoprolol succinate 50 mg tablet extended release 24 hr See Rx Instructions .ROUTE .COMPLEX Qty: 90 3RF Dose Instruction: TAKE ONE TABLET BY MOUTH EVERY DAY Rx Instructions: TAKE ONE TABLET BY MOUTH EVERY DAY pantoprazole 40 mg tablet,delayed release (DR/EC) See Rx Instructions .ROUTE .COMPLEX Qty: 60 3RF Dose Instruction: TAKE ONE TABLET BY MOUTH EVERY DAY Rx Instructions: TAKE ONE TABLET BY MOUTH EVERY DAY metformin 500 mg tablet See Rx Instructions .ROUTE .COMPLEX Qty: 180 3RF Hold Instructions: Changed by Provider Dose Instruction: TAKE ONE TABLET BY MOUTH TWICE A DAY Rx Instructions: TAKE ONE TABLET BY MOUTH TWICE A DAY albuterol sulfate 90 mcg/actuation HFA aerosol inhaler 2 puff inhalation Q6H PRN (Reason: shortness of breath or wheezing) Qty: 8.5 12RF clopidogrel 75 mg tablet 75 mg PO DAILY Jardiance 25 mg tablet 25 mg PO DAILY aspirin [Adult Aspirin Regimen] 81 mg tablet,delayed release (DR/EC) 81 mg PO DAILY Centrum Adults 12 mcg tablet,chewable 1 tab PO DAILY prochlorperazine maleate [Compazine] 5 mg tablet 5 mg PO BID PRNQty: 14 0RF famotidine 40 mg tablet 20 mg PO DAILY Qty: 60 0RF DS: Summary Quality:SDOH Health Related Social Needs: No Data to Display DS: Data Vitals/I&O Vitals and I&O: Vital Signs Temperature 36.6 C 12/23/23 10:04 Temperature Source Tympanic 12/23/23 10:04 Pulse 83 12/23/23 10:04 Pulse Rhythm Regular 12/23/23 09:41 Pulse 75 12/20/23 13:01 Respiratory Rate 16 12/23/23 10:04 Respiratory Effort Normal, Non-Labored 12/23/23 09:41 Respiratory Depth Normal 12/23/23 09:41 Respiratory Pattern Normal 12/23/23 09:41 Blood Pressure 116/41 L 12/23/23 10:04 Blood Pressure Mean 73 12/20/23 13:01 Blood Pressure Position Sitting 12/20/23 10:56 Pulse Oximetry 92 12/23/23 10:04 Oxygen Delivery Method Nasal Cannula 12/23/23 10:04 Oxygen Flow Rate 3 12/23/23 10:04 Pain Level 0 12/23/23 10:04 Comment RN Notified 12/23/23 03:17 Intake & Output 12/22/23 12/23/23 12/23/23 23:59 11:59 23:59 Intake Total 500 / 750 300 / 1380 1080 / 1380 Output Total 550 / 950 500 / 825 325 / 825 Balance -50 / -200 -200 / 555 755 / 555 Intake: Oral 500 / 750 300 / 1380 1080 / 1380 Output: Urine 550 / 950 500 / 825 325 / 825 Other: Urine Color Yellow Yellow Urine Appearance Clear Clear Urine Odor None None Voiding Methods Bedside Commode Data Completed and Pending Labs on day of discharge: Labs from last 24 hours 12/23/23 06:06 WBC 4.78 RBC 2.56 L Hgb 7.5 L Hct 23.4 L MCV 91 MCH 29.3 MCHC 32.1 RDW 15.6 H Plt Count 246 MPV 9.6 Immature Gran % 2.5 Neutrophils % 55.4 Lymphocytes % 8.8 Monocytes % 24.5 Eosinophils % 8.4 Basophils % 0.4 Nucleated RBC % 0.0 Absolute Neutrophils 2.65 Absolute Lymphocytes 0.42 L Absolute Monocytes 1.17 H Absolute Eosinophils 0.40 Absolute Basophils 0.02 Sodium 134 L Potassium 4.2 Chloride 91 L Carbon Dioxide 37.4 H Anion Gap 5.6 BUN 55 H Creatinine 1.6 H Est GFR (CKD-EPI 2020) 33.63 Glucose 129 H Calcium 9.3 Magnesium 2.6 H PFSH All Active Problems (Updated 12/22/23 @ 14:50 by Eli Lin APRN) Hyponatremia (Acute) Frequent falls (Acute) Discharge planning issues (Acute) On deep vein thrombosis (DVT) prophylaxis (Acute) Chronic disease under co-management (Acute) Acute kidney injury (Acute) New onset of congestive heart failure (Acute) Acute on chronic hypoxic respiratory failure (Acute) Pneumonia (Acute) Anxiety (Chronic) Adhesive capsulitis of left shoulder (Acute) Sepsis (Acute) Pneumonia (Acute ~09/2023) Acute hypoxemic respiratory failure (Acute) Kaylee rash of groin (Acute) Arteriovenous malformation (Acute ~06/2023) 06/27/23 [facility] Former smoker (Acute) Asymptomatic menopausal state (Acute) [facility] Endo Note 06/12/23 Type 2 diabetes mellitus with hyperglycemia, with long-term current use of insulin (Acute) [facility] Endo Note 06/12/23 Ductal carcinoma in situ (DCIS) of left breast (Acute) [facility] Hem/Onc note 06/05/23 Iron deficiency anemia secondary to blood loss (chronic) (Acute) 05/01/23 Hem/Onc GI bleed (Chronic) Demand ischemia (Acute) Chronic respiratory failure with hypoxia (Acute) Anemia (Chronic) Esophagitis determined by endoscopy (Acute ~12/2022) Compression fracture of L3 vertebra (Acute ~2021) Mucous cyst of digit of left hand (Acute ~12/2022) s/p excision of mucous cyst DOS: 01/08/23 Trigger finger, left middle finger (Acute) 40 mg Depo-Medrol injection: 11/12/2022 s/p trigger release DOS: 01/08/23 History of breast cancer (Acute) Dermatitis, seborrheic (Acute) 07/06/22 Dr Moreno Anemia, macrocytic (Acute) 05/03/22 Hem/Onc Note Essential hypertension (Acute 05/16/04) Microalbuminuria due to type 2 diabetes mellitus (Acute) Hyperlipidemia (Acute 03/18/07) Type 2 diabetes mellitus, with long-term current use of insulin (Acute ~1999) Renal artery stenosis, [place], bilateral (Chronic) [facility] Vascular Surgery; most recent OV 06/01/21 Atherosclerosis of both carotid arteries (Chronic 11/12/16) [facility] Vascular Surgery; most recent OV 06/01/21; Recommend annual carotid US COPD, very severe (Chronic) [facility] Pulm O2 dependent ASCVD (arteriosclerotic cardiovascular disease) (Chronic) [facility] 06/01/21 Vascular note: Asymptomatic bilateral carotid artery stenosis Non-ST elevation (NSTEMI) myocardial infarction (Acute ~12/2020) S/p proximal LCX stent placement 01/27/21 [facility] CKD (chronic kidney disease) (Chronic) Obstructive sleep apnea (Chronic 03/02/14) Bipap w/ 2L 02 09/06/2019 Medical History Esophageal thrush Allergic contact dermatitis due to other agents Malignant neoplasm of unspecified site of left female breast (~10/2021) 11/06/21 Dr Mcgill ([facility] Rad/Onc Office); Radiation Therapy planned 12/21/21-hormone receptor positive Gross hematuria Vulvar irritation Breast cancer in female (~05/2021) R 2002, L 2004 s/p B/L partial mastectomy, XRT, & tamoxifen. 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) Estrogen receptor positive s/p RXT, surgical removal of tumor Enteritis Back pain Post-menopausal bleeding Pelvic pain Pericarditis (~12/2020) S/p AK Vaginitis and vulvovaginitis, unspecified Tobacco use disorder 30-50 PY, QUIT 1999 Compression fracture of lumbar vertebra (03/14/17) Depression (11/30/02) s/p of brother (on SSRI for short time) Solitary pulmonary nodule (12/22/15) Incidental finding of 6 mm pulm nodule RLL on 11/07/[address] with 6 month f/u chest CT recommended; 04/2016 6-month f/u chest CT: resolution of nodule Pneumonia Spinal stenosis (02/04/14) Multi level on MRI Reflux esophagitis (07/16/12) LA GRADE B , EGD W/ BX 05/04/15 Osteopenia (02/14/16) DEXA 02/14/16: Fem neck t-score -1.2 --> WHO FRAX major osteoporotic 13% & hip fx 1.3% risk --> does not qualify for bisphosphonates --> Ca & vit D 03/2017 L3 compression fx --> re-calc WHO FRAX major osteoporotic 21% & hip fx 2.3% risk --> now qualifies for bisphosphonate tx, started 03/2017 Probable allergic rxn to Alendronate (1st pill Sat, and stayed thru today (but no worsening), 07/05. Agree to STOP for now. Leg cramps (04/01/14) Low Mg+ --> supplementation helped, but caused diarrhea; handout on dietary Mg+ given Iron deficiency anemia (01/02/17) S/p colo & EGD 05/2015, then capsule endoscopy & push enteroscopy with no definitive etiology identified; 11/14/2017: repeat colonoscopy (due to return of anemia) showing a colonic angioectasia, which may have been source of bleeding & anemia (no overt bleeding found). Fe supplementation & monitor 10/29/22 Seen by [facility] Hem/Onc Intraabdominal calcification (03/14/16) Incidental finding on CT 2 mm between bladder and uterus, no further eval required, AOC Hypomagnesemia (03/04/17) Hiatal hernia (02/11/14) Smaller portions Endoscopy 10/04 anemia (nothing found), [facility] Heart murmur 07/11/2016 echo: mild-moderate mitral regurgitation DJD (degenerative joint disease) (02/04/14) Lumbar spine--multiple level on MRI Surgery 10/2011, [facility] Dr. 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/21/16 [facility] Vascular Surgery consult: moderate stenosis, not source of clinical pathology, & no intervention or further evaluation indicated Anemia (02/11/14) Suspect chronic dz/bone marrow suppression s/p breast CA tx (radiation); s/p GI workup (possible AVMs?), NL B12/folate, elevated Epo, NL retic count; chronic iron supplementation Allergic rhinitis Superior mesenteric artery stenosis Chronic GI bleeding Headache Surgical History H/O colonoscopy (~11/02/22) 11/02/22 , 1 cecal polyp removed - f/u 10 years 11/12/23-[facility] H/O endoscopy (~06/21/22) 11/02/22 Upper GI endoscopy 11/12/23-[facility]-3 non-bleeding angioectasias-biopsies taken H/O partial mastectomy (~10/26/21) Left breast S/P breast biopsy, left (05/09/21) u/s guided Core Bx History of hysterectomy, supracervical Status post coronary artery stent placement (~01/27/21) H/O laminectomy (~10/06/12) L5S1 Dr. Jarrod Ballard H/O laminectomy L5S1 Tooth Extractions Multiple Oophrectomy, Right (~2007) For unknown reason Extraction of cataract left eye surgical removal with intraocular lens implant. Dr Agee Breast, Lumpectomy (~2003) B/L for breast CA Biopsy, Lymph Node (~2003) (L) axilla for breast CA Family History Sister Breast cancer Mother , 89 Alzheimer's dementia Breast cancer Father , AGE 75 Alcohol abuse Cirrhosis Sister Neoplasm uterine CA Sister Heart disease Brother Heart disease Niece Breast cancer Social History Smoking/Tobacco Use Status: Former Tobacco Use tobacco type: cigarettes Quit Date: 09/02/95 Tobacco: How many years used: 25 Smoking risk assessment performed?: Yes Alcohol Intake: former Details: none Drug use: Never Substance use type: does not use Adopted: No Caregiver/Support person: No Foster care: No Household members: spouse Housing: house Number of Children: 4 Communication Needs: None Pets and animals: No Current gender identity: female What type of physical activity do you participate in: regular exercise Duration: < 15 minutes/day Frequency: 3-4 times per week Mell/Baptism: Mu-Ism Seatbelt use: always Drive intox or ride w/intox substitute bus driver: No Working smoke detector in home: Yes Fire extinguisher in home: Yes Carbon monox detector in home: Yes Do you feel safe at home: Yes Do you feel safe in your relationship?: Yes History History Para Hx # Term Pregnancies Multiple births Hx # Pregnancies Ectopic pregnancies AB induced Hx Number of Living Children 4 AB spontaneous
--- NOTE | 2023-12-23 15:02 | PGE_ITS ---
Date of Service Date of service: 12/23/23 Time of Service: 15:02 Assessment and Plan Assessment and plan (1) Acute kidney injury: Status: Acute Assessment and plan: Cr back to 1.6, baseline 1.1 to 1.6 hold losartan, famotidine, HCTZ resume as per Cr. improvement avoid nephrotoxic meds IVF contraindicated d/t below vs renal bed congestion (2) New onset of congestive heart failure: Status: Acute Assessment and plan: Echocardiogram: LVEF 80%, with 50% IVC collapse on inspiration; resume IV Lasix for now continue metoprolol succinate , jardiance Telemetry: SR Strict I&O Daily weight : 62.9 (3) Acute on chronic hypoxic respiratory failure: Status: Acute Assessment and plan: Wean as tolerated to baseline on 3l/min On home dose of oxygen supplementation today, sat 91% at rest, desaturation observed with PT( see notes), but recovered at rest Home CPAP (4) Chronic disease under co-management: Status: Acute Assessment and plan: HTN: Continue as per home meds regimen unless held d/t acute condition management. DM: Continue Gluc AC and HS with SSI, and basal dose, jardiance (5) Frequent falls: Status: Acute Assessment and plan: PT consult: See notes (6) Hyponatremia: Status: Acute Assessment and plan: Na 134 Continue water restriction BMP on 12/23 (7) On deep vein thrombosis (DVT) prophylaxis: Status: Acute Assessment and plan: Continue TEDs and frequent mobilization (8) Discharge planning issues: Status: Acute Assessment and plan: CM to f/u Discussed with Dr. Frost Subjective Subjective Patient reports: tolerating liquids well, tolerating a regular diet, voiding w/o difficulty, flatus and shortness of breath; denies diarrhea, nausea, vomiting or fever Exam Narrative Exam Narrative: Constitutional The patient is in bed, SOB going from bed to chair , < 10 feet Neuro:alert and oriented X4 Resp: left basilar crackles, decreased right base Cardio: Tele SR HR 75, regular rhythm, S1, S2, no murmur, positive pulses to all 4 extremities, no edema GI: Abdomen is not distended, soft and non tender, bowel sounds are present Integumentary: No skin lesions or rash Extremities: strength 5/5 to bilateral lower and upper extremities Psych: RASS 0, congruent mood and normal affect. Objective Last Vital Signs Temp 36.6 C 12/23/23 10:04 Pulse 83 12/23/23 10:04 Resp 16 12/23/23 10:04 BP 116/41 L 12/23/23 10:04 Pulse Ox 92 12/23/23 10:04 Laboratory Results - last 24 hr 12/23/23 06:06 WBC 4.78 RBC 2.56 L Hgb 7.5 L Hct 23.4 L MCV 91 MCH 29.3 MCHC 32.1 RDW 15.6 H Plt Count 246 MPV 9.6 Immature Gran % 2.5 Neutrophils % 55.4 Lymphocytes % 8.8 Monocytes % 24.5 Eosinophils % 8.4 Basophils % 0.4 Nucleated RBC % 0.0 Absolute Neutrophils 2.65 Absolute Lymphocytes 0.42 L Absolute Monocytes 1.17 H Absolute Eosinophils 0.40 Absolute Basophils 0.02 Sodium 134 L Potassium 4.2 Chloride 91 L Carbon Dioxide 37.4 H Anion Gap 5.6 BUN 55 H Creatinine 1.6 H Est GFR (CKD-EPI 2020) 33.63 Glucose 129 H Calcium 9.3 Magnesium 2.6 H Time Spent with Patient Time Spent with Patient: >50 minutes Time was spent: preparing to see the patient(eg.review tests), obtaining and/or reviewing separately otained hiistory, ordering medications,tests, procedures, referring, communicating with other health career technical education teacher, indepentently interpreting results, counseling the patient and care coordination
[2023-12-23] MEDS: Furosemide 40 MG/4 ML VIAL IVP (15:04)
[2023-12-23] MEDS: Citalopram 20 MG TAB PO (21:04)
[2023-12-23] MEDS: Senna TAB 1 TAB PO (21:04)
[2023-12-23] MEDS: Melatonin 3 MG TAB PO (21:05)
[2023-12-23] MEDS: Acetaminophen 325 MG TAB 650 MG PO (21:48)
[2023-12-23] MEDS: Albuterol 2.5 MG/3 ML INH SOLN VIAL IH (21:49)
[2023-12-23] MEDS: Doxycycline Hyclate 100 MG CAP PO (23:14)
[2023-12-23] MEDS: cefTRIAXone 1 GM/50 ML BAG IV (23:15)
[2023-12-24] VITALS (9 sets, daily range): BP systolic 111–141; BP diastolic 39–74; PULSE 75–94; RESP 15–20; TEMP 36–37.6; O2SAT 91–95
[2023-12-24] MEDS: Melatonin 3 MG TAB 6 MG PO (00:38)
[2023-12-24] MEDS: Tiotropium/Olodaterol 10 PUFF INHALER 2 PUFF IH (08:27)
--- NOTE | 2023-12-24 08:30 | DI.RAD_ITS ---
Exam(s) XR CHEST 2V PA LATERAL EXAM: XR CHEST 2V PA LATERAL CLINICAL HISTORY: Fever with repeated hospitalizations female. TECHNIQUE: 2D digital imaging was performed. COMPARISON: CR XR CHEST 2V PA LATERAL from 12/18/2023 CR XR CHEST 1V IN DI DEPT from 12/20/2023 FINDINGS: 2 views: Heart size is normal. The mediastinum is not widened. Appearance of the lung cole is similar to 4 days ago. Bilateral increased interstitial markings ar e noted, more so in both lung bases. There is a single thickened interlobular septa in lateral right lung base again evident. There are no pleural effusions.. IMPRESSION: Findings as above without significant change compared to 12/20/2023. DATA REPOSITORY: RADIATION DOSE DELIVERED:
[2023-12-24] MEDS: Sucralfate 1 GM TAB PO ×4 (08:52→20:32)
[2023-12-24] MEDS: Metoprolol CR 50 MG TABCR PO (08:52)
[2023-12-24] MEDS: Aspirin E.C. 81 MG TABEC PO (08:53)
[2023-12-24] MEDS: Montelukast 10 MG TAB PO (08:53)
[2023-12-24] MEDS: Empaglifozin 25 MG TAB PO (08:53)
[2023-12-24] MEDS: Letrozole 2.5 MG TAB PO (08:53)
[2023-12-24] MEDS: Pantoprazole 40 MG TABCR PO (08:53)
[2023-12-24] MEDS: Magnesium Oxide 400 MG TAB PO ×2 (08:53→20:32)
[2023-12-24] MEDS: Doxycycline Hyclate 100 MG CAP PO ×2 (08:53→20:51)
[2023-12-24] MEDS: Multivitamin TAB 1 TAB PO (08:53)
[2023-12-24] MEDS: Cetirizine 10 MG TAB PO (08:54)
[2023-12-24] MEDS: Insulin Glargine 300 UNITS/3 ML PEN 20 UNITS SC ×2 (08:54→21:55)
[2023-12-24] MEDS: Normal Saline Flush 10 ML SYR IVP ×3 (08:54→20:31)
[2023-12-24] MEDS: Furosemide 40 MG/4 ML VIAL IVP ×2 (08:54→16:37)
--- NOTE | 2023-12-24 08:55 | PDOC.CMPRO ---
Date of service: 12/24/23 Time of Service: 08:55 Care Management Progress Note Progress Note Text Progress Note Text: S/O:Nahed was sitting up in a chair when CM met with her. Her sister Nancie was visiting at the time and joined the conversation. Nahed shared that she still does not feel well. She shared that her Cpap did not work properly last night and she did not sleep well. This afternoon Nahed was feeling weak and shaky. Her blood sugar and vital signs were checked. Her blood sugar was a little over 200 and her vital signs were stable.Nahed has decided that she would like to pursue short term rehab when she is ready for discharge. She received bed offers from both the [facility] and [facility]. She has not made a final decision, however she is leaning towards the [facility] as she lives in [place]. A: Nahed is a 73 year old woman admitted to [facility] on 12/20/23 with CHF P:Anticipate Nahed will discharge home with New [facility] RN/PT/BUILDING SPECIALIST services. She will follow up with her community providers and discharge plan of care as recommended. Her will provide transportation. CM will follow and continue to assess for discharge needs. SDOH(Care Management) Screening Will the Patient Participate in the Screening?: Yes Do you worry about having a steady place to live?: no Problems where you live: no known problems In the past 12 months, have you had to go without electric, gas, oil or water in your home?: no Have you or anyone in your house had to go without enough food to eat?: no Has lack of transportation kept you from medical appointments or from doing things needed for daily living?: no Has anyone in your support network made you feel unsafe for any reason?: no
[2023-12-24] MEDS: Clopidogrel 75 MG TAB PO (09:04)
[2023-12-24] MEDS: Fluticasone NASAL SPRAY 16 GM BTL NS (09:05)
[2023-12-24 09:13] LABS: Abs Immature Grans 0.13 10^3/uL (0.0-0.06); Absolute Basophil Count 0.02 10^3/uL (0.0-0.2); Absolute Eosinophil Count 0.29 10^3/uL (0.0-0.7); Absolute Lymphocyte Count 0.33 10^3/uL (1.2-3.4); Absolute Monocyte Count 0.92 10^3/uL (0.1-0.8); Absolute Neutrophil Count 3.48 10^3/uL (1.2-6.7); Basophils % 0.4; Eosinophils % 5.6; HCT 23.7 % (36.0-46.0); HGB 7.3 g/dL (11.2-15.7); Immature Grans % 2.5; Lymphocytes % 6.4; MCH 28.6 pg (27.0-33.0); MCHC 30.8 % (32.0-36.0); MCV 93 fL (80-95); MPV 9.3 fL (8.0-11.0); Monocytes % 17.8; Neutrophils % 67.3; Nucleated RBC 0.4 % (0.0-0.3); Platelet Count 283 10^3/uL (130-400); RBC 2.55 10^6/uL (3.93-5.22); RDW 15.9 % (11.7-14.6); RDW-SD 53.6 fL; WBC 5.17 10^3/uL (4.4-10.8)
--- NOTE | 2023-12-24 09:43 | W.PM.PROGNOT ---
Date of Service Date of service: 12/24/23 Time of Service: 09:43 Assessment and Plan Assessment and plan (1) Acute kidney injury: Status: Acute Assessment and plan: Cr back to 1.3, baseline 1.1 to 1.6 holding losartan, famotidine, HCTZ resumed as per Cr. improvement, following avoid nephrotoxic meds (2) HCAP (healthcare-associated pneumonia): Status: Acute Assessment and plan: With new fever and cough and exam with focal rales on right base, I agree with treating pneumonia, even though XR not revealing. Will change to cefepime to cover pseudomonas given pneumonia developed inpatient. She does not have known MRSA history, but will get a swab. Hold off on vancomycin now unless she gets sicker. (3) Anemia: Status: Chronic Assessment and plan: This is a/w recent GI bleed. 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 No known active bleed now. s/p venofer x 1 12/22 after transferrin saturation 12/18 8%, but no improvement in h/h yet, will repeat today. Her recent VT makes this more of an issue, but will hold off on transfusion for now unless she is bleeding or hgb <7. (4) New onset of congestive heart failure: Status: Acute Assessment and plan: Echocardiogram: LVEF 80%, with 50% IVC collapse on inspiration; Back on IV Lasix 12/22 after continue metoprolol succinate, empagliflozin Telemetry: SR Strict I&O, was fluid positive yesterday but improving Daily weight : 62.9 ->62.1 (5) Acute on chronic hypoxic respiratory failure: Status: Acute Assessment and plan: Wean as tolerated to baseline on 3l/min On home dose of oxygen supplementation today, sat 91% at rest, desaturation observed with PT( see notes), but recovered at rest Home CPAP (6) Chronic disease under co-management: Status: Acute Assessment and plan: HTN: Continue as per home meds regimen unless held d/t acute condition management. DM: Continue Gluc AC and HS with SSI, and basal dose, jardiance (7) Frequent falls: Status: Acute Assessment and plan: PT consult: See notes (8) Hyponatremia: Status: Acute Assessment and plan: Na normalized at 136 Continue water restriction (9) On deep vein thrombosis (DVT) prophylaxis: Status: Acute Assessment and plan: Continue TEDs and frequent mobilization, avoid pharmaceutical prophylaxis with concern for GI bleed from AVM. (10) Discharge planning issues: Status: Acute Assessment and plan: CM to f/u Subjective Subjective Patient reports: voiding w/o difficulty; denies diarrhea, nausea or vomiting Interval history since last seen: 24 hr: Fever to 38.1 last night, started on ceftriaxone and doxycycline Given iron infusion yesterday Resumed furosemide 40mg BID yesterday due to SOB after iron infusion. Nahed feels okay this morning. Energy isn't great. She confirms she is coughing more for the past 2 days and had fever last night. Some sputum. She is short of breath with exertion. She denies chest pain. Exam Narrative Exam Narrative: The patient is in bed, not SOB at rest. Alert and oriented X4 Resp: left basilar crackles, none on right. Slightly decreased breath sounds right base Cardio: Tele SR HR 75, regular rhythm, S1, S2, no murmur, positive pulses to all 4 extremities, no edema GI: Abdomen is not distended, soft and non tender, bowel sounds are present Integumentary: No skin lesions or rash Extremities: non tender, no cords Objective Last Vital Signs Temp 36.8 C 12/24/23 07:19 Pulse 82 12/24/23 07:19 Resp 15 12/24/23 07:19 BP 141/57 H 12/24/23 07:19 Pulse Ox 95 12/24/23 07:19 Laboratory Results - last 24 hr 12/24/23 08:58 WBC 5.17 RBC 2.55 L Hgb 7.3 L Hct 23.7 L MCV 93 MCH 28.6 MCHC 30.8 L RDW 15.9 H Plt Count 283 MPV 9.3 Immature Gran % 2.5 Neutrophils % 67.3 Lymphocytes % 6.4 Monocytes % 17.8 Eosinophils % 5.6 Basophils % 0.4 Nucleated RBC % 0.4 H Absolute Neutrophils 3.48 Absolute Lymphocytes 0.33 L Absolute Monocytes 0.92 H Absolute Eosinophils 0.29 Absolute Basophils 0.02 Time Spent with Patient Time Spent with Patient: >50 minutes Time was spent: preparing to see the patient(eg.review tests), obtaining and/or reviewing separately otained hiistory, ordering medications,tests, procedures, referring, communicating with other health managed care provider, indepentently interpreting results, counseling the patient and care coordination
[2023-12-24] MEDS: CEFEPIME 1 GM in Normal Saline 50 ML IVPB (09:48)
[2023-12-24 10:09] LABS: Anion Gap 6.1 mmol/L (3-11); BUN 45 mg/dL (7-18); CO2 38.9 mmol/L (21.0-32.0); CREATININE 1.3 mg/dL (0.55-1.02); Calcium 9.7 mg/dL (8.5-10.1); Chloride 91 mmol/L (98-107); Estimated GFR 43.15 (mL/min/1.73m2); Glucose 240 mg/dL (74-106); Sodium 136 mmol/L (136-145)
[2023-12-24] MEDS: IRON SUCROSE COMPLEX 200 MG in Normal Saline 100 ML 400 MG IVPB (12:14)
[2023-12-24] MEDS: Insulin Aspart 300 UNITS/3 ML PEN SC ×2 (12:14→17:15)
--- NOTE | 2023-12-24 13:06 | PT.INTREAT ---
PT Notes Visit Reasons: CHF Exacerbation,Acute on Chronic Respiratory Fail Inpatient Physical Therapy Treatment Note Date: 12/24/2023 PRECAUTIONS: Fall. Standard. Activities as tolerated. SUBJECTIVE: Per Nurse, patient with low Hgb at 7.3 g/dL as of 8:58 AM. Patient and expressed how patient is so fatigued. Agreeable to offer of transfer only to bedside commode for lunch. OBJECTIVE: ? PAIN: None reported during this session VITALS: Closely monitored by nursing staff ? BED MOBILITY/TRANSFERS: Supine to sit: stand by assist ? Sit-stand: stand by assist, cueing needed to use B hands for support, FWW used ? Stand-sit: stand by assist, cueing needed to use B hands for support, FWW used ? GAIT? Assistive Device: FWW? Weight bearing: Full Assist: stand by assist ? Distance:? 6 steps to bedside commode? Deviation: Slow augusto ? THERA EX: Chest expansion exercises wit DBE and shoulder flexion/ext x 5 Chest expansion exercises wit DBE and shoulder hor abd/add x 5 Bridging x 5 ASSESSMENT:? Activity tolerance continues to be limited. Hgb at 7.3 g/dL so deferred ambulation activity in the hallway and sitting/standing exercises. Ensured that patient was properly positioned on her bed for comfort and safety. PLAN: Continue to progress activity and mobility level to patient's tolerance. Continue to monitor vitals. TREATMENT CODE/TIME: Session I--[id number] x 23 minutes for 2 units (11:08-11:31). Session II--[id number] x 15 minutes for 1 unit (13:06-13:21). ?
[2023-12-24 13:54] LABS: MRSA PCR Positive (Negative)
[2023-12-24] MEDS: VANCOMYCIN/WATER (PEG) 1.5 GM/300 ML BAG IV (16:35)
[2023-12-24] MEDS: traZODone 50 MG TAB PO (16:37)
[2023-12-24] MEDS: Melatonin 3 MG TAB PO (20:32)
[2023-12-24] MEDS: Citalopram 20 MG TAB PO (20:32)
[2023-12-24] MEDS: Senna TAB 1 TAB PO (20:32)
[2023-12-24] MEDS: CEFEPIME 2 GM in Normal Saline 100 ML IVPB (21:55)
[2023-12-25] VITALS (13 sets, daily range): BP systolic 107–162; BP diastolic 29–69; PULSE 71–96; RESP 16–19; TEMP 36.3–36.9; O2SAT 4–98
[2023-12-25] MEDS: traZODone 50 MG TAB PO (00:45)
[2023-12-25] MEDS: Acetaminophen 325 MG TAB 650 MG PO (02:26)
[2023-12-25] MEDS: Fluticasone NASAL SPRAY 16 GM BTL NS (07:47)
[2023-12-25] MEDS: Insulin Glargine 300 UNITS/3 ML PEN 20 UNITS SC ×2 (07:47→22:27)
[2023-12-25] MEDS: Normal Saline Flush 10 ML SYR IVP ×5 (07:48→22:28)
[2023-12-25] MEDS: Furosemide 40 MG/4 ML VIAL IVP ×2 (07:48→17:11)
[2023-12-25] MEDS: Cetirizine 10 MG TAB PO (07:49)
[2023-12-25] MEDS: Letrozole 2.5 MG TAB PO (07:49)
[2023-12-25] MEDS: Sucralfate 1 GM TAB PO ×4 (07:49→22:30)
[2023-12-25] MEDS: Doxycycline Hyclate 100 MG CAP PO (07:49)
[2023-12-25] MEDS: Aspirin E.C. 81 MG TABEC PO (07:50)
[2023-12-25] MEDS: Montelukast 10 MG TAB PO (07:50)
[2023-12-25] MEDS: Pantoprazole 40 MG TABCR PO (07:50)
[2023-12-25] MEDS: Clopidogrel 75 MG TAB PO (07:51)
[2023-12-25] MEDS: Metoprolol CR 50 MG TABCR PO (07:51)
[2023-12-25] MEDS: Magnesium Oxide 400 MG TAB PO ×2 (07:51→22:27)
[2023-12-25] MEDS: Empaglifozin 25 MG TAB PO (07:52)
[2023-12-25] MEDS: Multivitamin TAB 1 TAB PO (07:52)
[2023-12-25] MEDS: Tiotropium/Olodaterol 10 PUFF INHALER 2 PUFF IH (08:15)
--- NOTE | 2023-12-25 08:38 | CMPROGNOTE_ITS ---
Date of service: 12/25/23 Time of Service: 08:38 Care Management Progress Note Progress Note Text Progress Note Text: S/O:Nahed was sitting up in bed when CM met with her. She informed CM that she is finally feeling a little better today., although she is tired.Nahed will be transfused this afternoon as her Hgb today was 6.9. If she continues to improve it is possible she may be able to transfer to [facility] as early as tomorrow. Nahed and her , who was present, asked for clarification of the plan for Nahed. They both wanted to be sure that she was going to the [facility] for short term rehab only and that she would come home when she was stronger. CM assured them that that is the plan. Nahed' sister Nancie had questions about what clothing, footwear, toiletries etc she would need at the [facility] and CM was able to provide the information. A: Nahed is a 73 year old woman admitted to [facility] on 12/20/23 with CHF P:Anticipate Nahed will discharge home with New [facility] RN/PT/HOUSEKEEPING ASSOCIATE services. She will follow up with her community providers and discharge plan of care as recommended. Her will provide transportation. CM will follow and continue to assess for discharge needs. SDOH(Care Management) Screening Will the Patient Participate in the Screening?: Yes Do you worry about having a steady place to live?: no Problems where you live: no known problems In the past 12 months, have you had to go without electric, gas, oil or water in your home?: no Have you or anyone in your house had to go without enough food to eat?: no Has lack of transportation kept you from medical appointments or from doing things needed for daily living?: no Has anyone in your support network made you feel unsafe for any reason?: no
--- NOTE | 2023-12-25 10:23 | PTTR_ITS ---
Date of service: 12/25/23 Time of Service: 09:30 PT Notes Visit Reasons: CHF Exacerbation,Acute on Chronic Respiratory Fail Inpatient Physical Therapy Treatment Note [facility] Date: 12/25/2023 PRECAUTIONS: Fall. Standard. Activities as tolerated. Contact precautions. SUBJECTIVE: Stated she is doing a little better today, but just so tired and feels like she is not able to rest. OBJECTIVE: ? PAIN: Legs are weak. VITALS: ? Pre-Treatment: 88% on 3L while sitting in recliner after having a BM, did increase to 92% with DBE. ? Post ambulation of 25ft: 88% with HR of 79b/m, O2 reading did increase to 92% with DBE. ? Therapeutic Activities (31023r6): Direct one-on-one instruction in dynamic act ivities to improve functional performance. ? BED MOBILITY/TRANSFERS? Rolling L/R: SBA with rolling to the right to go supine to sit Supine-sit: CGA with HOB at 30 degrees ? Sit-stand: CGA? Stand-sit: CGA ? Bed-Commode: CGA of one. Required assist with cleaning post bowel movement. Complained of getting tired while standing for 3-5 minutes getting cleaned. ? Commode-recliner: CGA of one Provided skilled cues and instruction on performance and technique throughout. GAIT? Assistive Device: FWW? Weight bearing: Full Assist: CGA, with SBA of one ? Distance:?25ft? Deviation: Slow, steady gait pattern. No LOB noted with ambulation today.? Exercises ?Performed AP x 15 reps, LAQs x 15 reps, seated march x 10 reps and seated hip abd/ add x 10 reps. Performed 1 minute of standing stepping in place. Provided skilled instruction in proper exercise performance ASSESSMENT:? Tolerated today's session fair, but not feeling up to doing a lot. PLAN: Continue with PT's POC with focus on improved functional mobility as pa uriel is able to tolerate. TREATMENT CODE/TIME: [id number], 9:30 to 10:00 am (30')
[2023-12-25 10:25] LABS: Abs Immature Grans 0.25 10^3/uL (0.0-0.06); Absolute Basophil Count 0.02 10^3/uL (0.0-0.2); Absolute Eosinophil Count 0.33 10^3/uL (0.0-0.7); Absolute Lymphocyte Count 0.36 10^3/uL (1.2-3.4); Absolute Monocyte Count 1.07 10^3/uL (0.1-0.8); Absolute Neutrophil Count 3.08 10^3/uL (1.2-6.7); Basophils % 0.4; Eosinophils % 6.5; HCT 22.6 % (36.0-46.0); Immature Grans % 4.9; MCH 28.3 pg (27.0-33.0); MCHC 30.5 % (32.0-36.0); MCV 93 fL (80-95); MPV 9.4 fL (8.0-11.0); Monocytes % 20.9; Neutrophils % 60.3; Platelet Count 288 10^3/uL (130-400); RBC 2.44 10^6/uL (3.93-5.22); RDW 16.1 % (11.7-14.6); RDW-SD 53.4 fL; WBC 5.11 10^3/uL (4.4-10.8)
[2023-12-25 10:35] LABS: HGB 6.9 g/dL (11.2-15.7)
[2023-12-25 10:43] LABS: CREATININE 1.2 mg/dL (0.55-1.02); Vancomycin, Random 15.8 ug/mL
[2023-12-25] MEDS: CEFEPIME 2 GM in Normal Saline 100 ML IVPB ×2 (11:08→22:31)
[2023-12-25] MEDS: Insulin Aspart 300 UNITS/3 ML PEN SC ×2 (11:46→16:36)
--- NOTE | 2023-12-25 12:37 | W.PM.PROGNOT ---
Date of Service Date of service: 12/25/23 Time of Service: 12:37 Assessment and Plan Assessment and plan (1) Anemia: Status: Chronic Assessment and plan: This is a/w recent GI bleed. 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 Positive occult blood, though no gross bleeding, c/w suspected slow bleed possibly from small bowel AVM. s/p venofer x 1 12/22, 12/23 after transferrin saturation 12/18 8%, but h/h 6.9%, patient agrees to transfusion. She may need ongoing tranfusion as outpatient, she will need f/u with gastroenterology I don't feel comfortable holding ASA/clopidogrel without acute bleed as she is only 2 weeks s/p stent. (2) HCAP (healthcare-associated pneumonia): Status: Acute Assessment and plan: We decided to treat 12/22 when she had new fever and cough and exam with focal rales on right base, even though XR not revealing. Abx changed to cefepime to cover pseudomonas given pneumonia developed inpatient. Vancomycin added after +swab of nares. Consider transition to oral therapy 12/25 (3) Acute kidney injury: Status: Acute Assessment and plan: Cr back to 1.2, which is her baseline. Resume losartan. (4) New onset of congestive heart failure: Status: Acute Assessment and plan: Echocardiogram: preserved LVEF 80% Back on IV Lasix 12/22 and creatinine imrpoving, appears euvolemic now, transition to oral furosemide. continue empagliflozin Telemetry: SR (5) Acute on chronic hypoxic respiratory failure: Status: Acute Assessment and plan: Weaned to her baseline on 3l/min Home CPAP (6) Chronic disease under co-management: Status: Acute Assessment and plan: HTN: Continue as per home meds regimen unless held d/t acute condition management. DM: Continue Gluc AC and HS with SSI, and basal dose, jardiance (7) Frequent falls: Status: Acute Assessment and plan: PT consult: See notes (8) Hyponatremia: Status: Acute Assessment and plan: Na normalized at 136 Continue water restriction (9) On deep vein thrombosis (DVT) prophylaxis: Status: Acute Assessment and plan: Continue TEDs and frequent mobilization, avoid pharmaceutical prophylaxis with concern for GI bleed from AVM. (10) Discharge planning issues: Status: Acute Assessment and plan: CM to f/u, plan to SNF, possibly 12/25 Subjective Subjective Patient reports: denies blood in stool or fever Interval history since last seen: 24 hr: Vancomycin added for HCAP due to positive MRSA nares swab. Nahed feels okay. She is tired, but was able to walk with PT, not SOB is about her baselines. Not dizzy. No chest pain. Cough has improved over the past 1-2 days, still some green sputum Exam Narrative Exam Narrative: The patient is in bed, not SOB at rest. Alert and oriented X4 Resp: left basilar crackles, right clear, good air momvement, breath sounds clear right base Cardio: Tele SR HR 67-92, regular rhythm, S1, S2, no murmur, no edema GI: Abdomen is not distended, soft and non tender, bowel sounds are present Integumentary: No skin lesions or rash Extremities: non tender, no cords Objective Last Vital Signs Temp 36.7 C 12/25/23 11:28 Pulse 96 H 12/25/23 11:28 Resp 19 12/25/23 11:28 BP 128/39 L 12/25/23 11:28 Pulse Ox 89 L 12/25/23 11:28 Laboratory Results - last 24 hr 12/24/23 12/25/23 12/25/23 09:00 10:04 11:35 WBC 5.11 RBC 2.44 L Hgb 6.9 L* Hct 22.6 L MCV 93 MCH 28.3 MCHC 30.5 L RDW 16.1 H Plt Count 288 MPV 9.4 Immature Gran % 4.9 Neutrophils % 60.3 Lymphocytes % 7.0 Monocytes % 20.9 Eosinophils % 6.5 Basophils % 0.4 Nucleated RBC % 0.0 Absolute Neutrophils 3.08 Absolute Lymphocytes 0.36 L Absolute Monocytes 1.07 H Absolute Eosinophils 0.33 Absolute Basophils 0.02 Creatinine 1.2 H Est GFR (CKD-EPI 2020) 47.50 Random Vancomycin 15.8 MRSA (TEM-PCR) Positive A Patient ABO/Rh A Positive Antibody Screen NEGATIVE Crossmatch See Detail Time Spent with Patient Time Spent with Patient: >50 minutes Time was spent: preparing to see the patient(eg.review tests), obtaining and/or reviewing separately otained hiistory, ordering medications,tests, procedures, referring, communicating with other health home day care provider, indepentently interpreting results, counseling the patient and care coordination
[2023-12-25] MEDS: Prochlorperazine 5 MG TAB PO (12:46)
--- NOTE | 2023-12-25 14:31 | PT.INNT ---
PT Notes Visit Reasons: CHF Exacerbation,Acute on Chronic Respiratory Fail pleasantly refused PT this pm due to blood transfusion and extreme fatigue. She reports that she is hoping to get some rest this pm. Sounds like she will transfer to [facility] tomorrow am as long as labs look good.
[2023-12-25] MEDS: VANCOMYCIN/WATER (PEG) 750 MG/150 ML BAG 150 MG IV (15:20)
--- NOTE | 2023-12-25 16:07 | PT.INTREAT ---
PT Notes Visit Reasons: CHF Exacerbation,Acute on Chronic Respiratory Fail Inpatient Physical Therapy Treatment Note [facility] Date: 12/25/2023 PRECAUTIONS: Fall. Standard. Activities as tolerated. Contact precautions. SUBJECTIVE: Still tired. Said she feel like she's got a little more pep after having had some blood transfused into he earlier this afternoon. Wondered if she can get a cough medication from the nurse, question relayed to charge Nurse Cecilia. OBJECTIVE: IV through L UE. ? PAIN: None reporeted VITALS: Just taken by nursing staff immediately before session, WNL BED MOBILITY/TRANSFERS: Rolling L/R: modified independent with HOb at 30 degrees Supine to sit: stand by assist ? Sit-stand: stand by assist, uses B hands for support, FWW used ? Stand-sit: stand by assist, uses B hands for support, FWW used ? GAIT? Assistive Device: FWW? Weight bearing: Full Assist: stand by assist ? Distance:? 30 feet of in-room ambulation? Deviation: Slow augusto. Coughing bout after short walk.? THERA EX: Chest expansion exercises wit DBE and shoulder flexion/ext x 5 Seated marches x 10 Chest expansion exercises wit DBE and shoulder hor abd/add x 5 Seated LAQs x 10 Ankle DF/PF x 10 ASSESSMENT:? Activity tolerance continues to be limited. Able to tolerate seated exercises and in-room ambulation after blood transfusion. Set up chair for patient for supper to ensure comfort. PLAN: Continue to progress activity and mobility level to patient's tolerance. Continue to monitor vitals. To SNF tonorrow per MD/care amnagement if patient remains medically stable TREATMENT CODE/TIME: 63217 x 24 minutes for 2 units (16:07-16:31).
[2023-12-25] MEDS: Citalopram 20 MG TAB PO (22:26)
[2023-12-25] MEDS: Melatonin 3 MG TAB PO (22:27)
[2023-12-25] MEDS: guaiFENesin 600 MG TABCR PO (22:27)
[2023-12-25] MEDS: Senna TAB 1 TAB PO (22:28)
[2023-12-26] VITALS (10 sets, daily range): BP systolic 70–176; BP diastolic 46–95; PULSE 80–108; RESP 15–26; TEMP 36.4–37.1; O2SAT 85–98
[2023-12-26 06:46] LABS: Abs Immature Grans 0.22 10^3/uL (0.0-0.06); Absolute Basophil Count 0.03 10^3/uL (0.0-0.2); Absolute Eosinophil Count 0.38 10^3/uL (0.0-0.7); Absolute Lymphocyte Count 0.35 10^3/uL (1.2-3.4); Absolute Monocyte Count 1.29 10^3/uL (0.1-0.8); Absolute Neutrophil Count 3.03 10^3/uL (1.2-6.7); Basophils % 0.6; Eosinophils % 7.2; HCT 25.9 % (36.0-46.0); HGB 8.1 g/dL (11.2-15.7); Immature Grans % 4.2; Lymphocytes % 6.6; MCH 28.8 pg (27.0-33.0); MCHC 31.3 % (32.0-36.0); MCV 92 fL (80-95); MPV 9.3 fL (8.0-11.0); Monocytes % 24.3; Neutrophils % 57.1; Nucleated RBC 0.8 % (0.0-0.3); Platelet Count 263 10^3/uL (130-400); RBC 2.81 10^6/uL (3.93-5.22); RDW-SD 51.6 fL
[2023-12-26 06:53] LABS: Anion Gap 4.8 mmol/L (3-11); BUN 32 mg/dL (7-18); CO2 38.2 mmol/L (21.0-32.0); Calcium 9.5 mg/dL (8.5-10.1); Chloride 97 mmol/L (98-107); Estimated GFR 59.12 (mL/min/1.73m2); Glucose 145 mg/dL (74-106); Potassium 3.5 mmol/L (3.5-5.1); Sodium 140 mmol/L (136-145)
[2023-12-26] MEDS: Letrozole 2.5 MG TAB PO (08:03)
[2023-12-26] MEDS: Magnesium Oxide 400 MG TAB PO ×2 (08:03→20:23)
[2023-12-26] MEDS: Montelukast 10 MG TAB PO (08:03)
[2023-12-26] MEDS: Sucralfate 1 GM TAB PO ×4 (08:03→20:24)
[2023-12-26] MEDS: Metoprolol CR 50 MG TABCR PO (08:04)
[2023-12-26] MEDS: Empaglifozin 25 MG TAB PO (08:04)
[2023-12-26] MEDS: guaiFENesin 600 MG TABCR PO ×2 (08:04→20:23)
[2023-12-26] MEDS: Clopidogrel 75 MG TAB PO (08:04)
[2023-12-26] MEDS: Cetirizine 10 MG TAB PO (08:04)
[2023-12-26] MEDS: Multivitamin TAB 1 TAB PO (08:04)
[2023-12-26] MEDS: Aspirin E.C. 81 MG TABEC PO (08:04)
[2023-12-26] MEDS: Insulin Glargine 300 UNITS/3 ML PEN 20 UNITS SC ×2 (08:04→20:24)
[2023-12-26] MEDS: Furosemide 80 MG TAB PO (08:04)
[2023-12-26] MEDS: Pantoprazole 40 MG TABCR PO (08:04)
[2023-12-26] MEDS: Insulin Aspart 300 UNITS/3 ML PEN SC ×3 (08:05→16:58)
[2023-12-26] MEDS: Fluticasone NASAL SPRAY 16 GM BTL NS (08:06)
[2023-12-26] MEDS: Normal Saline Flush 10 ML SYR IVP ×7 (08:06→20:26)
[2023-12-26] MEDS: Tiotropium/Olodaterol 10 PUFF INHALER 2 PUFF IH (08:34)
[2023-12-26] MEDS: CEFEPIME 2 GM in Normal Saline 100 ML IVPB ×2 (10:00→22:25)
--- NOTE | 2023-12-26 11:20 | PT.INTREAT ---
PT Notes Visit Reasons: CHF Exacerbation,Acute on Chronic Respiratory Fail Date: 12/26/2023 PRECAUTIONS: Fall. Standard. Activities as tolerated. Contact precautions. SUBJECTIVE: Pt in bed when approached for therapy this morning, pt reports she is having SOB, request to go to the commode before participating with session, Pt in bed when approached for therapy this afternoon, pt again agreed to participating with therapy but would need to go to the bedside commode first. OBJECTIVE: Telemetry, IV through L UE. NC 3L 02 support ? PAIN: None reported VITALS: Closely monitored by nursing BED MOBILITY/TRANSFERS: Rolling L/R: modified independent with HOB at 30 degrees Supine to sit: SBA? Sit-stand: SBA, uses B hands for support, FWW used ? Stand-sit: SBA, uses B hands for support, FWW used ? GAIT? Assistive Device: FWW? Weight bearing: Full Assist: SBA? Distance:? 30 feet of in-room ambulation?(am)/ 50 feet of in-room ambulation? (pm)? Deviation: Slow augusto. Stoop forward posture, WBOS.? Therapeutic procedures 90968: Instruction in therapeutic exercises to develop strength and endurance, range of motion and flexibility. Provided skilled instruction in proper exercise performance: Provided skilled manual cues to facilitate proper muscle recruitment and/or movement pattern: Exercises: (AM/PM) Sit to stand 5x1set Chest expansion exercises wit DBE and shoulder flexion/ext x 5 Seated marches x 10 Chest expansion exercises wit DBE and shoulder hor abd/add x 5 Seated LAQs x 10 Ankle DF/PF x 10 ASSESSMENT:? Activity tolerance continues to be limited. pt cue for DBE to help with SOB, pt setup to get back in bed post commode use and therapy session. Pt request t go back in bed post session, PLAN: Continue with balance training, global strengthening and general conditioning for improved safety, mobility and activity tolerance until pt is ready for SNF transfer. TREATMENT CODE/TIME: 86252l2, 41143d0 25 minutes (10:45-11:10am). / [id number], [id number] 25 minutes (2:40-3:05pm).
--- NOTE | 2023-12-26 11:54 | W.PM.PROGNOT ---
Date of Service Date of service: 12/26/23 Time of Service: 11:54 Assessment and Plan Assessment and plan (1) Anemia: Status: Chronic Assessment and plan: This is a/w recent GI bleed. Had EGD/colo and EVM ablated at [place] 11/12/2023 ([place] [facility] [place] 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 Positive occult blood, though no gross bleeding, c/w suspected slow bleed possibly from small bowel AVM. s/p venofer x 1 12/22, 12/23 after transferrin saturation 12/18 8%, but h/h 6.9%, s/p 1 unit PRBC transfusion 12/24, Hb 6.9 > 8.1 gm, patient remains on pantoprazole 40 mg daily, carafate 1 gm ac/hs. will [place] [facility] [place] upon [place]. continue to monitor CBC Qualifiers: Anemia type: iron deficiency Iron deficiency anemia type: chronic blood loss Qualified Code(s): D50.0 - Iron deficiency anemia secondary to blood loss (chronic) (2) HCAP (healthcare-associated pneumonia): Status: Suspected Assessment and plan: We decided to treat 12/22 when she had new fever and cough and exam with focal rales on right base, even though XR not revealing. Abx changed to cefepime to cover pseudomonas given pneumonia developed inpatient. Vancomycin added after +swab of nares. MRSA nares screen positive. Day #3 cefepime, d#2 vancomycin I am not convinced she has pneumonia, T max 38.1 C on 12/22 but none before or since. No leukocytosis this admission. I think her rales are from CHF, although her echo demonstrated normal LV size and function w/out RWMA and normal RV size and function, I suspect she has some component of HFPEF in fact the echo interpretation has listed under hemodynamics that she exhibited grade II diastolic dysfunction which is to say she has elevated LV filling pressures. I will resume iv lasix and add diuril for next 24 hours and reassess her. will check procalcitonin, continue antibiotics for now and diurese her. limit antibiotics to 5 days total. (3) Acute kidney injury: Status: Acute Assessment and plan: Cr back to 1.2, which is her baseline. Resume valsartan w/ BP parameters. (4) New onset of congestive heart failure: Status: Acute Assessment and plan: Echocardiogram: preserved LVEF 80% resume iv lasix, I think she is not yet euvolemic. will reassess her tomorrow, possible repeat limited echo to look at her filling pressures. (5) Acute on chronic hypoxic respiratory failure: Status: Acute Assessment and plan: combo of her underlying COPD, NIKKI and HFPEF Weaned to her baseline on 3l/min Home CPAP (6) Frequent falls: Status: Acute Assessment and plan: PT consult: See notes (7) Hyponatremia: Status: Acute Assessment and plan: Na normalized at 136 Continue water restriction (8) On deep vein thrombosis (DVT) prophylaxis: Status: Acute Assessment and plan: Continue TEDs and frequent mobilization, avoid pharmaceutical prophylaxis with concern for GI bleed from AVM. (9) Discharge planning issues: Status: Acute Assessment and plan: CM to f/u, plan to SNF, accepted to [facility], pending stabilization from anemia and CHF, +/- HAP Subjective Subjective Interval history since last seen: Nahed denies any CP or pressure, but does not feel well, more dyspnea. Her Hb has improved w/ transfusion of 1 unit PRBC yesterday rising from 6.9 gram to 8.1 gm. She remains afebrile and no cough or sputum production. Exam Narrative Exam Narrative: elderly white female sitting up in her chair, alert and oriented, wearing oxygen per NC @ 3 lpm. She is not dyspneic w/ short conversation but gets dyspneic w/ any activity. Neck: no overt JVD or HJR Lungs: diffuse bilateral rales, no wheezing or rhonchi Heart: RRR, no appreciable murmur or rub or S3 or S4 gallops Abdomen: soft, nontender Legs/feet: no pitting edema (in fact no edema at all), no cyanosis Objective Last Vital Signs Temp 36.9 C 12/26/23 11:49 Pulse 84 12/26/23 11:49 Resp 18 12/26/23 11:49 BP 137/48 L 12/26/23 11:49 Pulse Ox 92 12/26/23 11:49 Laboratory Results - last 24 hr 12/25/23 12/26/23 11:35 06:25 WBC 5.30 RBC 2.81 L Hgb 8.1 L Hct 25.9 L MCV 92 MCH 28.8 MCHC 31.3 L RDW 16.0 H Plt Count 263 MPV 9.3 Immature Gran % 4.2 Neutrophils % 57.1 Lymphocytes % 6.6 Monocytes % 24.3 Eosinophils % 7.2 Basophils % 0.6 Nucleated RBC % 0.8 H Absolute Neutrophils 3.03 Absolute Lymphocytes 0.35 L Absolute Monocytes 1.29 H Absolute Eosinophils 0.38 Absolute Basophils 0.03 Sodium 140 Potassium 3.5 Chloride 97 L Carbon Dioxide 38.2 H Anion Gap 4.8 BUN 32 H Creatinine 1.0 Est GFR (CKD-EPI 2020) 59.12 Glucose 145 H Calcium 9.5 Patient ABO/Rh A Positive Antibody Screen NEGATIVE Crossmatch See Detail Time Spent with Patient Time Spent with Patient: 35-49 minutes Time was spent: preparing to see the patient(eg.review tests), ordering medications,tests, procedures, referring, communicating with other health vp care management, indepentently interpreting results, counseling the patient and care coordination
[2023-12-26 12:28] LABS: Lab Add On Test DONE
--- NOTE | 2023-12-26 12:29 | PDOC.CMPRO ---
Date of service: 12/26/23 Time of Service: 12:29 Care Management Progress Note Progress Note Text Progress Note Text: S/O:Nahed was sitting up in bed when CM met with her. She was pleasant, as usual, but stated that she did not have a good night. She did not wear her Cpap last night and her oxygen saturation levels dropped. Her nasal oxygen needed to be increased to 4L/min from her baseline of 3L/min. Nahed was scheduled to transfer to the [facility] for short term rehab today, however due to her poor night and increased oxygen requirement, she will remain hospitalized until tomorrow. Nahed' s sister Nancie contacted CM with some questions regarding Nahed's follow up plan and requested that CM ensure that [place] [facility] [place]. The requests were communicated to the provider. A: Nahed is a 73 year old woman admitted to [facility] on 12/20/23 with CHF P:Anticipate Nahed transfer to the [facility] for short term rehab prior to returning home. She will follow up with the facility providers and plan of care and her will provide transportation. CM will follow and continue to assess for discharge needs. SDOH(Care Management) Screening Will the Patient Participate in the Screening?: Yes Do you worry about having a steady place to live?: no Problems where you live: no known problems In the past 12 months, have you had to go without electric, gas, oil or water in your home?: no Have you or anyone in your house had to go without enough food to eat?: no Has lack of transportation kept you from medical appointments or from doing things needed for daily living?: no Has anyone in your support network made you feel unsafe for any reason?: no
[2023-12-26] MEDS: VANCOMYCIN/WATER (PEG) 750 MG/150 ML BAG 150 MG IV (12:56)
[2023-12-26 13:16] LABS: Procalcitonin 0.1 ng/mL
--- NOTE | 2023-12-26 13:24 | CHAPLAIN ---
Nahed was in bed when I visited she was pleasant but did not seem interested in a longer conversation. I explained my role and offered support.
--- NOTE | 2023-12-26 13:33 | PHACLINREV_ITS ---
Pharmacy Admission Review Admission Clinical Review Admission Pharmacy Review: (Updated 12/26/23 @ 12:51 by Manuel Locke MD) Hyponatremia (Acute) Frequent falls (Acute) Discharge planning issues (Acute) On deep vein thrombosis (DVT) prophylaxis (Acute) Chronic disease under co-management (Acute) Acute kidney injury (Acute) New onset of congestive heart failure (Acute) Acute on chronic hypoxic respiratory failure (Acute) propylene glycol Allergy (Severe, Verified 12/09/23 07:56) Rash anastrozole Allergy (Intermediate, Verified 12/09/23 07:56) unknown petrolatum,white [From Petroleum Jelly] Allergy (Intermediate, Verified 12/09/23 07:56) rash adhesive tape Allergy (Unknown, Verified 12/09/23 07:56) Skin Rash alendronate sodium Allergy (Unknown, Verified 12/09/23 07:56) Hives azithromycin Adverse Reaction (Intermediate, Verified 12/09/23 07:56) dry heaves and diarrhea hydrocodone bitartrate [From Vicodin] Adverse Reaction (Intermediate, Verified 12/09/23 07:56) Nausea liraglutide [From Victoza] Adverse Reaction (Intermediate, Verified 12/09/23 07:56) diarhhea lorazepam [From Ativan] Adverse Reaction (Intermediate, Verified 12/09/23 07:56) felt crazy paraben Adverse Reaction (Intermediate, Verified 12/09/23 07:56) Skin Rash quaternium 15 Adverse Reaction (Intermediate, Verified 12/09/23 07:56) generalized rash roflumilast Adverse Reaction (Intermediate, Verified 12/09/23 07:56) Diarrhea zolpidem [From Ambien] Adverse Reaction (Intermediate, Verified 12/09/23 07:56) confusion LANDON Inhibitors Adverse Reaction (Unknown, Verified 12/09/23 07:56) COUGH,DYSPNEA oxycodone HCl [From Percocet] Adverse Reaction (Unknown, Verified 12/09/23 07:56) NAUSEA/VOMITING Benzodiazepines Adverse Reaction (Verified 12/09/23 07:56) Visual Disturbances fragranced creams Allergy (Intermediate, Uncoded 12/09/23 07:56) Skin Rash parabin wax Allergy (Intermediate, Uncoded 12/09/23 07:56) Skin Rash diogolidinyl Adverse Reaction (Severe, Uncoded 04/08/24 07:56) Skin Rash bisphenal Adverse Reaction (Intermediate, Uncoded 12/09/23 07:56) Skin Rash Resuscitation Status Full Code Height 5 ft Weight 60.9 kg Comments Comments/Follow Ups: Accepted at [facility], per morning meeting will be discharged either today or tomorrow most likely Pharmacy Admission Review Renal Dosing Renal Dosing: BUN 32 mg/dL (7-18) H 12/26/23 06:25 Creatinine 1.0 mg/dL (0.55-1.02) 12/26/23 06:25 Medications needing adjustments: Reviewed (CrCl 40.21 mL/min) List of meds needing interventions: Current medications are okay Anticoagulation Anticoagulation: Hgb 8.1 g/dL (11.2-15.7) L 12/26/23 06:25 Hct 25.9 % (36.0-46.0) L 12/26/23 06:25 Plt Count 263 10^3/uL (130-400) 12/26/23 06:25 Creatinine 1.0 mg/dL (0.55-1.02) 12/26/23 06:25 DVT Prophylaxis: Reviewed (TEDS, recent GI bleed) Relevant Labs Relevant Labs: Sodium 140 mmol/L (136-145) 12/26/23 06:25 Potassium 3.5 mmol/L (3.5-5.1) 12/26/23 06:25 Chloride 97 mmol/L (98-107) L 12/26/23 06:25 Magnesium 2.6 mg/dL (1.8-2.4) H 12/23/23 06:06 Electrolytes, C-Reactive P, ESR: Reviewed (Hgb increased from 6.9 to 8.1 following 1 unit of blood) DM Control DM Control: Glucose 145 mg/dL (74-106) H 12/26/23 06:25 Finger Stick Blood Glucose 222 1155 Finger Stick Blood Glucose 222 1143 Finger Stick Blood Glucose 222 1143 Finger Stick Blood Glucose 153 0805 Finger Stick Blood Glucose 153 0804 Finger Stick Blood Glucose 153 0746 Finger Stick Blood Glucose 153 0746 DM Control: Reviewed Insulin Dosing, Diabetic Medication: Has order for SS insulin, BID glargine and metformin. Home med Trulicity on hold while inpatient. Cardiac Review Cardiac Review: Troponin I 55 ng/L (< or =60) 12/20/23 11:08 NT-Pro-B Natriuret Pep Cancelled 12/20/23 11:10 BP, HR, EF%: Reviewed (HR WNL, BP 137/48) QTc Review QTc: Reviewed (QTc 435 from 12/19) IV to PO Switch IV Medications: Reviewed (Cefepime, chlorothiazide, furosemide and vancomycin) Home Meds Home Med List reviewed: Intervened Relevent Home Meds Not ordered & why?: Prolia (every 2 weeks), famotidine (has order for pantoprazole) and rosuvastatin Reached out to provider regarding rosuvastatin. Current Meds Current Medication Order Review: Reviewed Comments: Order put in today for chlorothiazide 1000mg q12h starting today at 1600 for total of 2 bags Pharmacy Antibiotic Review Relevant Labs: Relevant Labs 12/26/23 06:25 Procalcitonin 0.1 Pharmacy Antibiotic Activity: C/S review and Reviewed, no change Comments: Patient is on cefepime and vancomycin, day 3 for HAP. Vancomycin level was 15.8 on 12/24 at 1004. Dose will remain 750mg q24h with estimated AUC of 409 and trough of 11.6. Blood cultures showing no growth at 48 hours. Comments Comments/Follow Ups: Accepted at [facility], per morning meeting will be discharged either today or tomorrow most likely
--- NOTE | 2023-12-26 16:00 | W.PALLCONSUL ---
Date of service: 12/26/23 Time of Service: 16:00 Assessment and Plan Assessment and plan (1) Acute on chronic hypoxic respiratory failure: Status: Acute (2) New onset of congestive heart failure: Status: Acute (3) Type 2 diabetes mellitus with hyperglycemia, with long-term current use of insulin: Status: Acute (4) Iron deficiency anemia secondary to blood loss (chronic): Status: Acute (5) GI bleed: Status: Chronic (6) Non-ST elevation (NSTEMI) myocardial infarction: Status: Acute (7) CKD (chronic kidney disease): Status: Chronic Qualifiers: Chronic kidney disease stage: stage 3 (moderate) Chronic kidney disease stage 3 subtype: stage 3b (GFR 30-44) Qualified Code(s): N18.32 - Chronic kidney disease, stage 3b (8) Frequent falls: Status: Acute (9) Palliative care patient: Status: Acute (10) Advanced care planning/counseling discussion: Status: Acute PFSH All Active Problems (Updated 12/26/23 @ 16:16 by Anne Gongora MD) Advanced care planning/counseling discussion (Acute) Palliative care patient (Acute) Hyponatremia (Acute) Frequent falls (Acute) Discharge planning issues (Acute) On deep vein thrombosis (DVT) prophylaxis (Acute) Chronic disease under co-management (Acute) Acute kidney injury (Acute) New onset of congestive heart failure (Acute) Acute on chronic hypoxic respiratory failure (Acute) Pneumonia (Acute) Anxiety (Chronic) Adhesive capsulitis of left shoulder (Acute) Sepsis (Acute) Pneumonia (Acute ~09/2023) Acute hypoxemic respiratory failure (Acute) Kaylee rash of groin (Acute) Arteriovenous malformation (Acute ~06/2023) 06/27/23 Gastro Former smoker (Acute) Asymptomatic menopausal state (Acute) [facility] [place] 06/12/23 Type 2 diabetes mellitus with hyperglycemia, with long-term current use of insulin (Acute) [facility] [place] 06/12/23 Ductal carcinoma in situ (DCIS) of left breast (Acute) [facility] [place] Hem[place]Onc note 06/05/23 Iron deficiency anemia secondary to blood loss (chronic) (Acute) 05/01/23 Hem/Onc GI bleed (Chronic) Demand ischemia (Acute) Chronic respiratory failure with hypoxia (Acute) Anemia (Chronic) Esophagitis determined by endoscopy (Acute ~12/2022) Compression fracture of L3 vertebra (Acute ~2021) Mucous cyst of digit of left hand (Acute ~12/2022) s/p excision of mucous cyst DOS: 01/08/23 Trigger finger, left middle finger (Acute) 40 mg Depo-Medrol injection: 11/12/2022 s/p trigger release DOS: 01/08/23 History of breast cancer (Acute) Dermatitis, seborrheic (Acute) 07/06/22 Dr Moreno Anemia, macrocytic (Acute) 05/03/22 Hem/Onc Note Essential hypertension (Acute 05/16/04) Microalbuminuria due to type 2 diabetes mellitus (Acute) Hyperlipidemia (Acute 03/18/07) Type 2 diabetes mellitus, with long-term current use of insulin (Acute ~1999) Renal artery stenosis, [place], bilateral (Chronic) [facility] [place] V[place] Surgery; most recent OV 06/01/21 Atherosclerosis of both carotid arteries (Chronic 11/12/16) [facility] [place] Surgery; most recent OV 06/01/21; Recommend annual carotid US COPD, very severe (Chronic) [facility] Pulm O2 dependent ASCVD (arteriosclerotic cardiovascular disease) (Chronic) [facility] [place] 06/01/21 Vascular note: Asymptomatic bilateral carotid artery stenosis Non-ST elevation (NSTEMI) myocardial infarction (Acute ~12/2020) S/p proximal LCX stent placement 01/27/21 [facility] [place] CKD (chronic kidney disease) (Chronic) Obstructive sleep apnea (Chronic 03/02/14) Bipap w/ 2L 02 09/06/2019 Medical History Esophageal thrush Allergic contact dermatitis due to other agents Malignant neoplasm of unspecified site of left female breast (~10/2021) 11/06/21 Dr Mcgill ([facility] Rad/Onc Office); Radiation Therapy planned 12/21/21-hormone receptor positive Gross hematuria Vulvar irritation Breast cancer in female (~05/2021) R 2002, L 2004 s/p B/L partial mastectomy, XRT, & tamoxifen. 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) Estrogen receptor positive s/p RXT, surgical removal of tumor Enteritis Back pain Post-menopausal bleeding Pelvic pain Pericarditis (~12/2020) S/p UT Vaginitis and vulvovaginitis, unspecified Tobacco use disorder 30-50 PY, QUIT 1999 Compression fracture of lumbar vertebra (03/14/17) Depression (11/30/02) s/p of brother (on SSRI for short time) Solitary pulmonary nodule (12/22/15) Incidental finding of 6 mm pulm nodule RLL on 11/07/[address] with 6 month f/u chest CT recommended; 04/2016 6-month f/u chest CT: resolution of nodule Pneumonia Spinal stenosis (02/04/14) Multi level on MRI Reflux esophagitis (07/16/12) LA GRADE B , EGD W/ BX 05/04/15 Osteopenia (02/14/16) DEXA 02/14/16: Fem neck t-score -1.2 --> WHO FRAX major osteoporotic 13% & hip fx 1.3% risk --> does not qualify for bisphosphonates --> Ca & vit D 03/2017 L3 compression fx --> re-calc WHO FRAX major osteoporotic 21% & hip fx 2.3% risk --> now qualifies for bisphosphonate tx, started 03/2017 Probable allergic rxn to Alendronate (1st pill Wed, Hiv and stayed thru today (but no worsening), 07/05. Agree to STOP for now. Leg cramps (04/01/14) Low Mg+ --> supplementation helped, but caused diarrhea; handout on dietary Mg+ given Iron deficiency anemia (01/02/17) S/p colo & EGD 05/2015, then capsule endoscopy & push enteroscopy with no definitive etiology identified; 11/14/2017: repeat colonoscopy (due to return of anemia) showing a colonic angioectasia, which may have been source of bleeding & anemia (no overt bleeding found). Fe supplementation & monitor 10/29/22 Seen by [facility] [place] Hem/Onc Intraabdominal calcification (11/14/15) Incidental finding on CT 2 mm between bladder and uterus, no further eval required, AOC Hypomagnesemia (03/04/17) Hiatal hernia (02/11/14) Smaller portions Endoscopy 10/04 anemia (nothing found), [facility] [place] Heart murmur 07/11/2016 echo: mild-moderate mitral regurgitation DJD (degenerative joint disease) (02/04/14) Lumbar spine--multiple level on MRI Surgery 10/2011, [facility] Dr. 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/21/16 [facility] [place] Vascular Surgery consult: moderate stenosis, not source of clinical pathology, & no intervention or further evaluation indicated Anemia (02/11/14) Suspect chronic dz/bone marrow suppression s/p breast CA tx (radiation); s/p GI workup (possible AVMs?), NL B12/folate, elevated Epo, NL retic count; chronic iron supplementation Allergic rhinitis Superior mesenteric artery stenosis Chronic GI bleeding Headache Surgical History H/O colonoscopy (~11/02/22) 11/02/22 , 1 cecal polyp removed - f/u 10 years 11/12/23-[facility] [place] H/O endoscopy (~06/21/22) 11/02/22 Upper GI endoscopy 11/12/23[place] [place]3 non-bleeding angioectasias-biopsies taken H/O partial mastectomy (~10/26/21) Left breast S/P breast biopsy, left (05/09/21) u/s guided Core Bx History of hysterectomy, supracervical Status post coronary artery stent placement (~01/27/21) H/O laminectomy (~10/06/12) L5S1 Dr. Jarrod Ballard H/O laminectomy L5S1 Tooth Extractions Multiple Oophrectomy, Right (~2007) For unknown reason Extraction of cataract left eye surgical removal with intraocular lens implant. Dr Agee Breast, Lumpectomy (~2003) B/L for breast CA Biopsy, Lymph Node (~2003) (L) axilla for breast CA Family History Sister Breast cancer Mother , 89 Alzheimer's dementia Breast cancer Father , AGE 75 Alcohol abuse Cirrhosis Sister Neoplasm uterine CA Sister Heart disease Brother Heart disease Niece Breast cancer Social History Smoking/Tobacco Use Status: Former Tobacco Use tobacco type: cigarettes Quit Date: 09/02/95 Tobacco: How many years used: 25 Smoking risk assessment performed?: Yes Alcohol Intake: former Details: none Drug use: Never Substance use type: does not use Adopted: No Caregiver/Support person: No Foster care: No Household members: spouse Housing: house Number of Children: 4 Communication Needs: None Pets and animals: No Current gender identity: female What type of physical activity do you participate in: regular exercise Duration: < 15 minutes/day Frequency: 3-4 times per week Mell/Uatsdin: [employer] Seatbelt use: always Drive intox or ride w/intox driver guard: No Working smoke detector in home: Yes Fire extinguisher in home: Yes Carbon monox detector in home: Yes Do you feel safe at home: Yes Do you feel safe in your relationship?: Yes History History Para Hx # Term Pregnancies Multiple births Hx # Pregnancies Ectopic pregnancies AB induced Hx Number of Living Children 4 AB spontaneous Results Last Vital Signs Temp 36.6 C 12/26/23 15:02 Pulse 80 12/26/23 15:02 Resp 15 12/26/23 15:02 BP 136/95 H 12/26/23 15:02 Pulse Ox 91 L 12/26/23 15:02 Labs 12/26/23 06:25 12/26/23 06:25 Labs: Laboratory Results - last 24 hr 12/26/23 12/26/23 06:25 12:28 WBC 5.30 RBC 2.81 L Hgb 8.1 L Hct 25.9 L MCV 92 MCH 28.8 MCHC 31.3 L RDW 16.0 H Plt Count 263 MPV 9.3 Immature Gran % 4.2 Neutrophils % 57.1 Lymphocytes % 6.6 Monocytes % 24.3 Eosinophils % 7.2 Basophils % 0.6 Nucleated RBC % 0.8 H Absolute Neutrophils 3.03 Absolute Lymphocytes 0.35 L Absolute Monocytes 1.29 H Absolute Eosinophils 0.38 Absolute Basophils 0.03 Sodium 140 Potassium 3.5 Chloride 97 L Carbon Dioxide 38.2 H Anion Gap 4.8 BUN 32 H Creatinine 1.0 Est GFR (CKD-EPI 2020) 59.12 Glucose 145 H Calcium 9.5 Procalcitonin 0.1 Add-On Test Request DONE
[2023-12-26] MEDS: Furosemide 100 MG/10 ML VIAL 80 MG IVP (16:16)
[2023-12-26] MEDS: metFORMIN 500 MG TAB PO (16:17)
[2023-12-26] MEDS: Citalopram 20 MG TAB PO (20:23)
[2023-12-26] MEDS: Rosuvastatin 20 MG TAB 40 MG PO (20:23)
[2023-12-26] MEDS: traZODone 50 MG TAB PO (20:24)
[2023-12-26] MEDS: Senna TAB 1 TAB PO (20:24)
[2023-12-26] MEDS: Melatonin 3 MG TAB PO (20:25)
--- NOTE | 2023-12-26 21:00 | RT.EKG_ITS ---
APPROVED REPORT Exam: Resting ECG Reason for Exam: Acute confusional state status post non-STEMI Patient Location: I HR:93 bpm ECG Measurements Heart Rate 93 AXIS OH 161 P 82 QRSd 86 QRS 53 QT 370 T 62 QTc 461 Conclusion Sinus rhythm...normal P axis, V-rate 50- [address] elevation, anterior leads...ST >0.10mV, V1-V4
[2023-12-26 21:37] LABS: BE (Venous) 22 mmol/L (-2-3); HCO3 (Venous) 45 mmol/L (23-28); O2 Sat (Venous) 96 %; TCO2 (Venous) 42 mmol/L (24-29); pCO2 (Venous) 58 mmHg (41-51); pO2 (Venous) 70 mmHg
[2023-12-26 21:38] LABS: HCT 28.1 % (36.0-46.0); HGB 8.8 g/dL (11.2-15.7); MCH 29.1 pg (27.0-33.0); MCHC 31.3 % (32.0-36.0); MCV 93 fL (80-95); MPV 8.9 fL (8.0-11.0); Platelet Count 272 10^3/uL (130-400); RBC 3.02 10^6/uL (3.93-5.22); RDW 16.8 % (11.7-14.6); RDW-SD 52.1 fL; WBC 6.68 10^3/uL (4.4-10.8)
[2023-12-26 21:42] LABS: Lactate 2.2 mmol/L (0.6-1.4)
[2023-12-26 22:04] LABS: ALT 34 U/L (14-59); AST 22 U/L (15-37); Albumin 2.5 g/dL (3.4-5.0); Alkaline Phosphatase 61 U/L (46-116); Anion Gap 4.6 mmol/L (3-11); BUN 36 mg/dL (7-18); Bilirubin, Total 0.4 mg/dL (0.2-1.0); CO2 42.4 mmol/L (21.0-32.0); CREATININE 1.6 mg/dL (0.55-1.02); Calcium 9.9 mg/dL (8.5-10.1); Chloride 88 mmol/L (98-107); Estimated GFR 33.63 (mL/min/1.73m2); Glucose 257 mg/dL (74-106); Potassium 3.2 mmol/L (3.5-5.1); Sodium 135 mmol/L (136-145); Total Protein 8.1 g/dL (6.4-8.2); Troponin I < 50 ng/L (< or =60)
[2023-12-26 22:40] LABS: Magnesium 1.8 mg/dL (1.8-2.4)
[2023-12-26 23:38] LABS: HCT 28.6 % (36.0-46.0); HGB 8.7 g/dL (11.2-15.7); MCH 28.5 pg (27.0-33.0); MCHC 30.4 % (32.0-36.0); MCV 94 fL (80-95); Platelet Count 259 10^3/uL (130-400); RBC 3.05 10^6/uL (3.93-5.22); RDW 16.8 % (11.7-14.6); RDW-SD 52.7 fL; WBC 6.57 10^3/uL (4.4-10.8)
[2023-12-26 23:51] LABS: Ammonia < 10 umol/L (11-32)
[2023-12-27] VITALS (81 sets, daily range): BP systolic 70–159; BP diastolic 23–96; PULSE 57–159; RESP 4–26; TEMP 36.2–36.7; O2SAT 82–100
--- NOTE | 2023-12-27 | DI.RAD_ITS ---
Exam(s) XR PORTABLE CHEST AP EXAM: XR PORTABLE CHEST AP CLINICAL HISTORY: Syncope, Left rales with hypoxemia TECHNIQUE: 2D digital imaging was performed of the chest. One image was obtained. An AP view was ob tained. COMPARISON: CR,XR XR PORTABLE CHEST AP from 09/18/2023 CR XR CHEST 2V PA LATERAL from 12/24/2023 FINDINGS: MEDIASTINUM: Normal. HEART: Normal. PULMONARY VASCULATURE: Normal. LUNGS: There are persistent bilateral infiltrates present, left greater than right. There may be sli ght improvement in aeration in the lower lobes particularly on the right since the prior examination. No new infiltrates or focal consolidations are seen. The lungs are hyperinflated which may reflect underlying COPD. PLEURAL SPACE: No pleural effusion or pneumothorax. BONE:Within normal limits for the patient's age. OTHER FINDINGS:Normal. IMPRESSION: Persistent bilateral predominantly basilar infiltrates with a question of slight improvement in the r ight lung base. DATA REPOSITORY: RADIATION DOSE DELIVERED:
[2023-12-27 00:09] LABS: ALT 26 U/L (14-59); AST 20 U/L (15-37); Albumin 2.5 g/dL (3.4-5.0); Alkaline Phosphatase 62 U/L (46-116); Anion Gap 5.8 mmol/L (3-11); BUN 36 mg/dL (7-18); Bilirubin, Direct 0.1 mg/dL (0.0-0.2); Bilirubin, Total 0.4 mg/dL (0.2-1.0); CO2 40.2 mmol/L (21.0-32.0); CREATININE 1.5 mg/dL (0.55-1.02); Calcium 9.8 mg/dL (8.5-10.1); Chloride 87 mmol/L (98-107); Estimated GFR 36.34 (mL/min/1.73m2); Glucose 241 mg/dL (74-106); Sodium 133 mmol/L (136-145); Total Protein 8.1 g/dL (6.4-8.2)
[2023-12-27 00:10] LABS: Potassium 2.7 mmol/L (3.5-5.1)
--- NOTE | 2023-12-27 00:17 | CE_ITS ---
Date of service: 12/26/23 Time of Service: 23:50 Event Note: Subjective: I was called to see this 73-year-old lady with progressive oxygen needs and question of hospital-acquired pneumonia on cefepime and vancomycin. She chronically is on oxygen at was placed on her nighttime CPAP with improvement of her oxygenation. She had no fever and repeat labs were ordered along with chest x-ray. She has slight confusion which was intermittent but improved at the time I saw her. She has no abdominal symptoms with bloating and discomfort and the extent of having a syncopal episode with her systolic blood pressure dropping below 80 with increased confusion and having liquid black stool. She felt better after this event and it appeared to be a vagal response to her abdominal cramping. Blood pressure recovered without sequela. She is on metoprolol. She had no chest pain. He has been having a slow GI bleed and her H&H was not dropping and not requiring transfusion overnight. This may be an option in the morning and also long-term discussions should address possible transfer to [facility] for evaluation if she is not improving. She may have a small bowel bleed which needs GI to investigate. She does not have an acute surgical abdomen presently other than her discomfort before her incontinence of the large bowel movement. Through the night she continued to have intermittent slight confusion which may be baseline dementia exacerbated with prolonged placed Objective: Vital signs later in the shift, temperature 36.5, blood pressure 144/49 and pulse 88. Respiration 22 with pulse oximeter 98% on 15 L without nighttime CPA since not tolerating use and on 15 L high flow throughout the morning. General: Patient was at baseline alert oriented when I saw her earlier in the morning now she has slight confusion and is taking it her mind. She is in no acute distress. Lungs: Inspiration coarse crackles left lung field compared to right with fair aeration. Heart: Tachycardic rate and regular rhythm with no murmurs or gallops. Abdomen: Obese contour, soft and nontender without guarding. Bowel sounds positive. Neuro: No focal motor deficits. Patient is confused intermittently but alert and oriented x 3 at the time I saw the patient. Lab: Lactate was elevated otherwise labs appear stable. Chest x-ray as below. Extremities: Without cyanosis. Fair capillary refill. Exam: XR Chest Exam date and time: 12/27/2023 12:29 AM Age: 73 years old Clinical indication: Other: Syncope, left rales with hypoxemia TECHNIQUE: Imaging protocol: Radiologic exam of the chest. Views: 1 view. COMPARISON: CR XR CHEST 2V PA LATERAL 12/24/2023 8:20 AM FINDINGS: Lungs: Mild interstitial prominence in the bilateral lower lungs appear similar to previous. Mid to upper lungs are clear. No acute infiltrate evident. Pleural spaces: Unremarkable. No pleural effusion. No pneumothorax. Heart/Mediastinum: Unremarkable. No cardiomegaly. Vasculature: Atherosclerotic calcification of the aorta. Bones/joints: Mild degenerative changes of the spine and shoulders. IMPRESSION: No acute interval change Assessment and plan: Patient is on treatment for hospital-acquired pneumonia chest x-ray appears stable and not impressive. Her oxygen needs are increasing and this need to be addressed in the morning possibly considering CTA of the chest despite patient's CKD. His CHF is being treated more aggressively at this will be continued. Refills as needed to be reevaluated with patient having stuttering symptoms and overall failing. Case will be reviewed with the day hospitalist as to approach to her stuttering symptoms and increased oxygen needs. She is not on anticoagulation because of her slow presumed small bowel bleed. She is on Plavix which was not discontinued but could be considered for discontinuation along with possible discussion with [facility] as to transfer for more aggressive treatment of her GI bleed along with reevaluation of her cardiopulmonary status with increased oxygen needs without apparent worsening pneumonia or CHF. Time Spent with Patient Time spent in critical care(minutes): 60 Time Spent Included: Coordination of care, Chart review, Documenting critically ill care and Time at immediate bedside
--- NOTE | 2023-12-27 01:08 | DI.VRAD_ITS ---
PROCEDURE INFORMATION: Exam: XR Chest Exam date and time: 12/27/2023 12:29 AM Age: 73 years old Clinical indication: Other: Syncope, left rales with hypoxemia TECHNIQUE: Imaging protocol: Radiologic exam of the chest. Views: 1 view. COMPARISON: CR XR CHEST 2V PA LATERAL 12/24/2023 8:20 AM FINDINGS: Lungs: Mild interstitial prominence in the bilateral lower lungs appear similar to previous. Mid to upper lungs are clear. No acute infiltrate evident. Pleural spaces: Unremarkable. No pleural effusion. No pneumothorax. Heart/Mediastinum: Unremarkable. No cardiomegaly. Vasculature: Atherosclerotic calcification of the aorta. Bones/joints: Mild degenerative changes of the spine and shoulders. IMPRESSION: No acute interval change Dictated and Authenticated by: Carl Delgado MD. Ordering:EVELIO Abreu MD
[2023-12-27] MEDS: Normal Saline Flush 10 ML SYR IVP ×3 (01:17→18:04)
[2023-12-27] MEDS: POTASSIUM CHLORIDE 20 MEQ/100 ML BAG 50 MEQ IVINF ×2 (01:18→03:37)
--- NOTE | 2023-12-27 06:15 | DI.RAD_ITS ---
Exam(s) XR PORTABLE CHEST AP EXAM: XR PORTABLE CHEST AP CLINICAL HISTORY: increased SOB, persistant cough TECHNIQUE: 2D digital imaging was performed of the chest. One image was obtained. An AP view was ob tained. COMPARISON: CR,XR XR PORTABLE CHEST AP from 12/27/2023 FINDINGS: MEDIASTINUM: Normal. HEART: Normal. PULMONARY VASCULATURE: Normal. LUNGS: There are persistent infiltrates in the lower lobes, left greater than right. There has been no progression of the infiltrates. No new infiltrates are seen. Lungs appear hyperinflated suggesti ng underlying COPD. PLEURAL SPACE: No pleural effusion or pneumothorax. BONE:Within normal limits for the patient's age. OTHER FINDINGS:Normal. IMPRESSION: No significant change in the predominantly basilar infiltrates. DATA REPOSITORY: RADIATION DOSE DELIVERED:
--- NOTE | 2023-12-27 07:38 | DI.VRAD_ITS ---
PROCEDURE INFORMATION: Exam: XR Chest Exam date and time: 12/27/2023 6:39 AM Age: 73 years old Clinical indication: Cough and shortness of breath; Additional info: Increased SOB, persistant cough TECHNIQUE: Imaging protocol: Radiologic exam of the chest. Views: 1 view. COMPARISON: CR XR PORTABLE CHEST AP 12/27/2023 12:29 AM FINDINGS: Lungs: No significant change in mild interstitial prominence at the lung bases. Pleural spaces: No large pleural effusion seen. Heart/Mediastinum: No cardiomegaly. Vasculature: Aortic calcifications. Bones/joints: Grossly unremarkable. IMPRESSION: No significant interval change. Dictated and Authenticated by: Lisa Lam MD. Ordering:EVELIO Abreu MD
[2023-12-27] MEDS: Pantoprazole 40 MG TABCR PO (08:01)
[2023-12-27] MEDS: Insulin Aspart 300 UNITS/3 ML PEN SC (08:01)
[2023-12-27] MEDS: Sucralfate 1 GM TAB PO (08:01)
[2023-12-27] MEDS: Insulin Glargine 300 UNITS/3 ML PEN 20 UNITS SC (08:02)
[2023-12-27] MEDS: Tiotropium/Olodaterol 10 PUFF INHALER 2 PUFF IH (08:20)
[2023-12-27] MEDS: Magnesium Oxide 400 MG TAB PO (08:46)
[2023-12-27] MEDS: guaiFENesin 600 MG TABCR PO (08:46)
[2023-12-27] MEDS: Multivitamin TAB 1 TAB PO (08:46)
[2023-12-27] MEDS: Metoprolol CR 50 MG TABCR PO (08:46)
[2023-12-27] MEDS: Cetirizine 10 MG TAB PO (08:47)
[2023-12-27] MEDS: metFORMIN 500 MG TAB PO (08:47)
[2023-12-27] MEDS: Letrozole 2.5 MG TAB PO (08:47)
[2023-12-27] MEDS: Empaglifozin 25 MG TAB PO (08:47)
[2023-12-27] MEDS: Fluticasone NASAL SPRAY 16 GM BTL NS (08:47)
[2023-12-27] MEDS: Valsartan 80 MG TAB 160 MG PO (08:47)
[2023-12-27] MEDS: Montelukast 10 MG TAB PO (08:47)
[2023-12-27 08:49] LABS: BE (Venous) 19 mmol/L (-2-3); HCO3 (Venous) 45 mmol/L (23-28); O2 Sat (Venous) 59 %; TCO2 (Venous) 42 mmol/L (24-29); pH (Venous) 7.36 (7.31-7.41); pO2 (Venous) 32 mmHg
[2023-12-27 08:51] LABS: Abs Immature Grans 0.28 10^3/uL (0.0-0.06); Absolute Basophil Count 0.03 10^3/uL (0.0-0.2); Absolute Eosinophil Count 0.21 10^3/uL (0.0-0.7); Absolute Lymphocyte Count 0.44 10^3/uL (1.2-3.4); Absolute Monocyte Count 1.45 10^3/uL (0.1-0.8); Absolute Neutrophil Count 3.78 10^3/uL (1.2-6.7); Basophils % 0.5; Eosinophils % 3.4; HCT 33.8 % (36.0-46.0); HGB 10.5 g/dL (11.2-15.7); Immature Grans % 4.5; Lactate 0.9 mmol/L (0.6-1.4); Lymphocytes % 7.1; MCH 29.7 pg (27.0-33.0); MCHC 31.1 % (32.0-36.0); MCV 96 fL (80-95); MPV 9.3 fL (8.0-11.0); Monocytes % 23.4; Neutrophils % 61.1; Platelet Count 262 10^3/uL (130-400); RBC 3.54 10^6/uL (3.93-5.22); RDW 16.1 % (11.7-14.6); RDW-SD 52.7 fL; WBC 6.19 10^3/uL (4.4-10.8); pCO2 (Venous) 79 mmHg (41-51)
--- NOTE | 2023-12-27 09:04 | CMPROGNOTE_ITS ---
Date of service: 12/27/23 Time of Service: 09:04 Care Management Progress Note Progress Note Text Progress Note Text: S/O:Nahed was sitting up in a chair when CM met with her early this morning. She stated that she continues to feel unwell. She was short of breath with labored breathing and was transitioned to Bipap. Her blood pressure was found to be in the 80s systolic and when rechecked, had dropped to 74/36. She was given fluid boluses and transferred to the ICU. Nahed is having heme positive stools and remains hypotensive. She has been accepted for transfer to critical care at [facility]. CM met with her family and answered their questions about code status. Nahed has advanced directives on file that designate her as a full code. CM printed the document and reviewed it with the family. Her daughter Maria Del Carmen is her HCA and was present for the meeting. A: Nahed is a 73 year old woman admitted to [facility] on 12/20/23 with CHF P Nahed will be emergently transferred to [facility] due to hypovolemic shock. She will transport via EMS coordinated by nursing extraction supervisor. CM will continue to support Nahed and her family. SDOH(Care Management) Screening Will the Patient Participate in the Screening?: Yes Do you worry about having a steady place to live?: no Problems where you live: no known problems In the past 12 months, have you had to go without electric, gas, oil or water in your home?: no Have you or anyone in your house had to go without enough food to eat?: no Has lack of transportation kept you from medical appointments or from doing things needed for daily living?: no Has anyone in your support network made you feel unsafe for any reason?: no
[2023-12-27 09:08] LABS: Magnesium 2.4 mg/dL (1.8-2.4)
[2023-12-27 09:09] LABS: Anion Gap 1.3 mmol/L (3-11); BUN 38 mg/dL (7-18); C-Reactive Protein 7.08 mg/dL (<or=0.5); CO2 42.7 mmol/L (21.0-32.0); CREATININE 1.5 mg/dL (0.55-1.02); Calcium 9.9 mg/dL (8.5-10.1); Chloride 94 mmol/L (98-107); Estimated GFR 36.34 (mL/min/1.73m2); Glucose 205 mg/dL (74-106); Potassium 3.8 mmol/L (3.5-5.1); Sodium 138 mmol/L (136-145)
[2023-12-27] MEDS: Aspirin E.C. 81 MG TABEC PO (09:19)
[2023-12-27] MEDS: Clopidogrel 75 MG TAB PO (09:19)
[2023-12-27] MEDS: Furosemide 100 MG/10 ML VIAL 80 MG IVP (09:26)
[2023-12-27 09:35] LABS: Lab Add On Test DONE
[2023-12-27 09:54] LABS: NT-proBNP 1751 pg/mL (<300)
--- NOTE | 2023-12-27 10:11 | PGE_ITS ---
Date of Service Date of service: 12/27/23 Time of Service: 10:11 Assessment and Plan Assessment and plan (1) Hypovolemic shock: Status: Acute Assessment and plan: Patient transferred to ICU d/t hypovolemic shock, patient resuscitated w/ total of 1 liter LR and subsequently given 1 unit of PRBC, two more units ordered. Patient lacked adquated iv access therefore, I attempted CVC line in [facility] but was unsuccessful, anesthesia subsequently was successful. I spoke w/ [facility] critical care team, Dr. Fuentes and he has agreed to accept the patient to [employer] team service to Dr. Johnny Corcoran. 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 She will likely need mesenteric angiogram to look for source of her bleeding. Qualifiers: GI bleed type/associated pathology: unspecified gastrointestinal hemorrhage type Qualified Code(s): K92.2 - Gastrointestinal hemorrhage, unspecified (3) S/P primary angioplasty with coronary stent: Status: Acute Assessment and plan: s/p PCI of LAD, performed at [place], [place] 12/13/23. DAPT has been continued through out this hospital stay. However, patient has not been on anticoagulation d/t bleeding problems this admission. This morning patient was moved to the ICU d/t hypotension d/t hypovolemic shock. See below for details. Patient has not had any CP w/ current admission even in setting of hypotension. (4) Coronary artery disease: Status: Chronic Qualifiers: Associated angina: unspecified whether angina present Coronary Disease- Associated Artery/Lesion type: [place] artery [place] vs. transplanted heart: [place] heart Qualified Code(s): I25.10 - Atherosclerotic heart disease of [place] coronary artery without angina pectoris (5) Acute and chronic respiratory failure with hypercapnia: Status: Acute Assessment and plan: multifactorial including COPD and NIKKI contributing to her chronic RF, and now superimposed HFPEF and HCAP. currently on vancomycin and cefepime. given her delirium and w/out a specific organism we are treating for her HCAP, I have opted to change cefepime to ceftriaxone. she has MRSA + on her nares, therefore vancomycin has been retained. I did add azithromycin. I have ordered sputum cultures as well as urine for strep and legionella antigens. She is now in hypovolemia secondary to acute blood loss, along w/ over-diuresis and medication induced from valsartan, Toprol XL and she did receive lasix this morning prior to her morning labs which showed prerenal azotemia (6) HCAP (healthcare-associated pneumonia): Status: Suspected Assessment and plan: We decided to treat 12/22 when she had new fever and cough and exam with focal rales on right base, even though XR not revealing. Abx changed to cefepime to cover pseudomonas given pneumonia developed inpatient. Vancomycin added after +swab of nares. MRSA nares screen positive. Day #4 cefepime, d#3 vancomycin I was not convinced that she has pneumonia, she still has not had fever since initial fever on 12/22 and has no cough or sputum production, however repeat CXR shows persistent bibasilar infiltrates and this correlated w/ her lung ultrasound. She does not have air bronchograms but has dense coalescing bilateral B lines at both lung bases w/out pleural effusions while her upper lung cole have A line pattern. I have continued her antibiotics for now. Once she is stabilized from her hypovolemic shock, then could consider CT chest. (7) New onset of congestive heart failure: Status: Acute Assessment and plan: Echocardiogram done this admission on 12/20/23 demonstrated normal LV size and funciton w/ no RWMA and hyperdynamic LV w/ LVEF 80% and normal RV size and function. no significant valvular heart disease, however she did exhibit grade II diastolic HF w/ decreased relaxation and increased filling pressures. Yesterday, I changed her oral diuretics to iv and she probably was over diuresed and along w/ her resumption of her valasartan this morning, recent blood loss from recurrent GI bleeding and diuretics, she now has hypovolemic shock. I have transferred her to the ICU for further iv fluid resuscitation, repeat monitoring of her hemogram, if hypotension does not resolve w/ iv fluids then will begin vasopressors. HOwever, bedside echo shows underfilled RV, small IVC that is collapsable >50% (although not exactly reliable since she is on BIPAP for her reespiratory failure and CO2 retention. (8) COPD, very severe: Status: Chronic Assessment and plan: patient w/ increasing CO2 levels; BIPAP ordred, will monitor her VBG, continue home inhalers (9) Obstructive sleep apnea: Status: Chronic (10) Anemia: Status: Chronic Assessment and plan: This is a/w recent GI bleed. Had EGD/colo and EVM ablated at [place] 11/12/2023 (prior EGD and c scope @ [facility] 11/02/22). 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 Positive occult blood, though no gross bleeding, c/w suspected slow bleed possibly from small bowel AVM. s/p venofer x 1 12/22, 12/23 after transferrin saturation 12/18 8%, but h/h 6.9%, s/p 1 unit PRBC transfusion 12/24, Hb 6.9 > 8.1 gm, patient remains on pantoprazole 40 mg daily, carafate 1 gm ac/hs. will refer to [facility] gastroenterology upon discharge. continue to monitor CBC Yesterday evening, patient had large melena stool and power wheelchair mechanic was called, repeat hemoglobin was ordered and came back 8.7 gm, patient was ordered 2 units of PRBC last night and received 1 unit, I held the second unit this morning when her repeat Hb came back at 10.5 gm. I have ordered repeat hemoglobin and will monitor serial hemogram and transfuse as necessary. Qualifiers: Anemia type: iron deficiency Iron deficiency anemia type: chronic blood loss Qualified Code(s): D50.0 - Iron deficiency anemia secondary to blood loss (chronic) (11) Acute kidney injury: Status: Acute Assessment and plan: now w/ prerenal azotemia w/ BUN 38 and 1.5, diuretics now held, valsartan now put on hold; continue fluid resuscitation. (12) Frequent falls: Status: Acute Assessment and plan: PT consult: See notes (13) Hyponatremia: Status: Acute Assessment and plan: Na normalized at 136 (14) On deep vein thrombosis (DVT) prophylaxis: Status: Acute Assessment and plan: Continue TEDs and frequent mobilization, avoid pharmaceutical prophylaxis with concern for GI bleed from AVM. (15) Discharge planning issues: Status: Acute Assessment and plan: CM to f/u, plan to SNF, accepted to [facility], pending stabilization from anemia and CHF, +/- HAP Subjective Subjective Interval history since last seen: Patient has had continued heme positive stools. She was ordered 2 units of PRBC last night by the power wheelchair mechanic but has only received 1 units of PRBC and her Hb came up from 8.7 gm to current level of 10.5 gm. Apparently she had a large bm last night of melena. This morning she is confused, VBG demonstrates that she is retaining CO2 to 79. I have ordered BIPAP to be applied. She has evidence of chronic CO2 retention as evidenced by her elevated HCO3 of 35 on her admission labs which has now risen to 42, partly due to metabolic alkalosis from diuretics. After rounding on her, I was called to see her at the bedside d/t hypotension w/ SBP in the 70's. this was confirmed w/ manual BP readings. She was given two 250 mL boluses of LR which brought her BP up to 80's after the first bolus and now is in the low 90's after 2nd bolus of 250 mL. I have ordered another 500 mL bolus and have transferred her to the ICU. Stat hemoglobin/hematocrit has been ordered. Exam Narrative Exam Narrative: Nahed is sitting up in a chair talking with her family she is wearing her BiPAP. She seems to be alert but she is now oriented to place time or circumstance. Lungs with diffusely diminished breath sounds but with bibasilar rales no rhonchi or wheezing Heart is regular rate and rhythm Abdomen soft and nontender nondistended Extremities without peripheral edema Patient was re-examined after she had been put back to bed. She appears pale, but is alert, wearing her BIPAP. SPO2 94%, respirations unlabored Lungs: scattered rales, no wheezing or rhonchi Heart: regular, no murmur; review of telemetry: sinus rhythm in 60's, no ectopy Abdomen: soft, nontender, nondistended Extremities: no edema, no calf or thigh pain or tenderness, feet cool but not cyanotics Objective Last Vital Signs Temp 36.3 C L 12/27/23 08:06 Pulse 89 12/27/23 09:30 Resp 22 12/27/23 09:30 BP 129/49 L 12/27/23 08:06 Pulse Ox 97 12/27/23 09:30 Laboratory Results - last 24 hr 12/25/23 12/26/23 12/26/23 11:35 06:25 12:28 WBC RBC Hgb Hct MCV MCH MCHC RDW Plt Count MPV Immature Gran % Neutrophils % Lymphocytes % Monocytes % Eosinophils % Basophils % Nucleated RBC % Absolute Neutrophils Absolute Lymphocytes Absolute Monocytes Absolute Eosinophils Absolute Basophils VBG pH VBG pCO2 VBG pO2 VBG HCO3 VBG Total CO2 VBG O2 Saturation VBG Base Excess VBG Lactate Sodium Potassium Chloride Carbon Dioxide Anion Gap BUN Creatinine Est GFR (CKD-EPI 2020) Glucose Calcium Magnesium Total Bilirubin Conjugated Bilirubin AST ALT Alkaline Phosphatase Ammonia Troponin I C-Reactive Protein NT-Pro-B Natriuret Pep Total Protein Albumin Procalcitonin 0.1 Add-On Test Request DONE Patient ABO/Rh A Positive Antibody Screen NEGATIVE Crossmatch See Detail 12/26/23 12/26/23 12/27/23 21:30 23:30 08:40 WBC 6.68 6.57 6.19 RBC 3.02 L 3.05 L 3.54 L Hgb 8.8 L 8.7 L 10.5 L Hct 28.1 L 28.6 L 33.8 L MCV 93 94 96 H MCH 29.1 28.5 29.7 MCHC 31.3 L 30.4 L 31.1 L RDW 16.8 H 16.8 H 16.1 H Plt Count 272 259 262 MPV 8.9 9.0 9.3 Immature Gran % 4.5 Neutrophils % 61.1 Lymphocytes % 7.1 Monocytes % 23.4 Eosinophils % 3.4 Basophils % 0.5 Nucleated RBC % 0.0 Absolute Neutrophils 3.78 Absolute Lymphocytes 0.44 L Absolute Monocytes 1.45 H Absolute Eosinophils 0.21 Absolute Basophils 0.03 VBG pH 7.50 H 7.36 VBG pCO2 58 H 79 H* VBG pO2 70 32 VBG HCO3 45 H 45 H VBG Total CO2 42 H 42 H VBG O2 Saturation 96 59 VBG Base Excess 22 H 19 H VBG Lactate 2.2 H* 0.9 Sodium 135 L 133 L 138 Potassium 3.2 L 2.7 L* 3.8 D Chloride 88 L 87 L 94 L Carbon Dioxide 42.4 H 40.2 H 42.7 H Anion Gap 4.6 5.8 1.3 L BUN 36 H 36 H 38 H Creatinine 1.6 H 1.5 H 1.5 H Est GFR (CKD-EPI 2020) 33.63 36.34 36.34 Glucose 257 H 241 H 205 H Calcium 9.9 9.8 9.9 Magnesium 1.8 2.4 Total Bilirubin 0.4 0.4 Conjugated Bilirubin 0.1 AST 22 20 ALT 34 26 Alkaline Phosphatase 61 62 Ammonia < 10 L Troponin I < 50 C-Reactive Protein 7.08 H NT-Pro-B Natriuret Pep 1751 H Total Protein 8.1 8.1 Albumin 2.5 L 2.5 L Procalcitonin Add-On Test Request Patient ABO/Rh Antibody Screen Crossmatch 12/27/23 09:34 WBC RBC Hgb Hct MCV MCH MCHC RDW Plt Count MPV Immature Gran % Neutrophils % Lymphocytes % Monocytes % Eosinophils % Basophils % Nucleated RBC % Absolute Neutrophils Absolute Lymphocytes Absolute Monocytes Absolute Eosinophils Absolute Basophils VBG pH VBG pCO2 VBG pO2 VBG HCO3 VBG Total CO2 VBG O2 Saturation VBG Base Excess VBG Lactate Sodium Potassium Chloride Carbon Dioxide Anion Gap BUN Creatinine Est GFR (CKD-EPI 2020) Glucose Calcium Magnesium Total Bilirubin Conjugated Bilirubin AST ALT Alkaline Phosphatase Ammonia Troponin I C-Reactive Protein NT-Pro-B Natriuret Pep Total Protein Albumin Procalcitonin Add-On Test Request DONE Patient ABO/Rh Antibody Screen Crossmatch Time Spent with Patient Time Spent with Patient: >50 minutes Time was spent: preparing to see the patient(eg.review tests), obtaining and/or reviewing separately otained hiistory, ordering medications,tests, procedures, referring, communicating with other health rn progressive care (multiple calls to [facility] and subsequent discussion w/ their ICU team), indepentently interpreting results, counseling the patient (and multiple discussions w/ family) and care coordination
[2023-12-27] MEDS: CEFEPIME 2 GM in Normal Saline 100 ML IVPB (10:15)
[2023-12-27] MEDS: acetaZOLAMIDE 250 MG TAB PO (10:42)
[2023-12-27 10:45] LABS: BE (Venous) 18 mmol/L (-2-3); HCO3 (Venous) 42 mmol/L (23-28); O2 Sat (Venous) 91 %; TCO2 (Venous) 39 mmol/L (24-29); pCO2 (Venous) 58 mmHg (41-51); pH (Venous) 7.47 (7.31-7.41); pO2 (Venous) 56 mmHg
[2023-12-27] MEDS: Lactated Ringers 250 ML 999 ML IV (11:20)
[2023-12-27] MEDS: Lactated Ringers 500 ML IV (11:40)
--- NOTE | 2023-12-27 11:43 | W.POCUS ---
Pocus Exam Limited Cardiac Exam DATE OF EXAM: 12/27/23 TIME OF EXAM: 11:18 PROVIDER THAT PERFORMED THE STUDY: Manuel Locke REASON FOR EXAM: Hypotension and Hypoxia VISUALIZED STRUCTURES: four chambers, aortic valve, mitral valve, Interventricular septum and IVC VIEW OBTAINED: Apical 4-Chamber, Parasternal long-axis, Parasternal short-axis and Subxiphoid PERTINENT FINDINGS/IMPRESSION: IVC inspiratory collapsability; No LV dysfunction, No pericardial effusion, No plethoric IVC, No RV dilation and No RV dysfunction INCIDENTAL FINDINGS: IVC is small and >50% collapsability, RV appears to be underfilled, there is LVH w/ normal LV systolic function, no RWMA, normal RV size and function. findings are consistent w/ hypovolemia. Exam complete
[2023-12-27] MEDS: VANCOMYCIN/WATER (PEG) 750 MG/150 ML BAG 150 MG IV (11:45)
--- NOTE | 2023-12-27 11:47 | POCUS_ITS ---
Pocus Exam Limited Thoracic Lung Exam DATE OF EXAM: 12/27/23 TIME OF EXAM: 09:48 PROVIDER THAT PERFORMED THE STUDY: Manuel Locke IS THIS A REPEAT EXAM DURING THIS ENCOUNTER: No REASON FOR EXAM: Hypoxia and Shortness ofBreath VISUALIZED STRUCTURES: right anterior, left anterior, right lateral, left lateral, right posterior and right subcostal PERTINENT FINDINGS/IMPRESSION: B-lines/left side thoracis location: lateral and posterior, B-lines/right side thoracis location: lateral and posterior and Pneumonia; no pneumothorax, no pleural effusion on the left and no pleural effu noah on the right INCIDENTAL FINDINGS: A/B pattern is seen w/ A line patter in anterior and posterior upper lung cole w/ dense B lines and consolidation seen in both basilar lung zones, no air bronchograms are seen. no pleural effusions were seen
[2023-12-27 12:00] LABS: HCT 27.6 % (36.0-46.0); HGB 8.6 g/dL (11.2-15.7)
--- NOTE | 2023-12-27 12:32 | NUR.NOTE ---
Patient alert and oriented, though tired this morning. Vitals stable intially at 0730 with BP 129/49 HR 83, O2 96% on 15L high flow NC. Patient up to chair around 0830, complaining of dizziness. BP checked, 159/84. AM meds given. Held second unit of blood per MD after AM labs back with Hgb 10.5. Patient switched to Bipap per MD. At 1100, staff got patient back to bed from chair, complained of feeling weak, dizzy, and lightheaded. Vitals checked at 1110, BP 80/34 manual check, HR 64, O2 96% on Bipap. BG 245. Patient remains alert and oriented though pale appearing and tired. MD notified, 250 mL LR bolus started. BP recheck at 1120 was 74/36, bolus infusing. BP at 1128 was 84/30 manual, HR 64, O2 94% on Bipap. Report given to [employer] and transferred to unit at 1135. Second 250 mL LR bolus started per MD request prior to transfer to ICU.
[2023-12-27] MEDS: Lactated Ringers 250 ML 1000 ML IV (12:40)
--- NOTE | 2023-12-27 13:09 | PT.INTREAT ---
Date of service: 12/27/23 PT Notes Visit Reasons: CHF Exacerbation,Acute on Chronic Respiratory Fail Patient transferred to ICU. New PT order will be required if service requested.
--- NOTE | 2023-12-27 14:33 | ROE_ITS ---
Date of service: 12/27/23 Time of Service: 14:33 Operative Note Operative Note DATE OF PROCEDURE: 12/27/23 PRE-OP DIAGNOSIS: hypovolemic shock POST-OP DIAGNOSIS: same SURGEON: Manuel Locke ANESTHESIA TYPE: Local By Surgeon Refer to Anesthesia Record ESTIMATED BLOOD LOSS: 0 PATHOLOGY: none sent COMPLICATIONS: None Patient was transported to: no change Patient's condition: critical Indications: Hypovolemic shock secondary to acute GI bleeding Procedure Description: Using an Arrow pressure injectable Arrow Guard Blue +3 lumen CVC 7 [place] 3 lm 20 cm catheter kit. Patient was prepped and draped in the usual sterile fashion and an eye was donned with sterile gown and gloves and mask and hat I prepped the patient with the enclosed ChloraPrep solution after having identified the right internal jugular vein using the SonoSite PX translinear probe and having compressed the IJ vein to ensure that there was no thrombosis. After prepping the right IJ area over the sternal cleidomastoid muscle use the enclosed 5 mL 1% lidocaine solution and injected the area of interest infiltrating the skin and subcutaneous tissue. Then using the translinear probe in a sterile fashion having covered it with a sterile sheath I used the probe in a dynamic fashion to attempt to insert an 18-gauge 2-1/2 inch radiopaque catheter over 20-gauge RW introducer needle. Initially I got a flash of blood but when I attempted to insert the catheter and withdraw the introducer needle, I did not get any further blood flow. I then made two more attempts under ultrasound guidance after reassessing my position but was never able to obtain cannulation of the vessel. Her internal jugular vein was collapsing fully w/ each respiration which made targeting the vessel difficult. I then reached out to anesthesia and surgery and Isaak Shelton nurse italian tutor came to the ICU and proceeded to complete IJ vein cannulation. See his operative note.
[2023-12-27] MEDS: Lidocaine 2% Multi-Dose 20 ML VIAL (14:35)
--- NOTE | 2023-12-27 15:00 | DI.RAD_ITS ---
Exam(s) XR PORTABLE CHEST AP POST LINE EXAM: XR PORTABLE CHEST AP POST LINE CLINICAL HISTORY: right IJ TLC placement. TECHNIQUE: 2D digital imaging was performed of the chest. One image was obtained. An AP view was ob tained. COMPARISON: CR,XR XR PORTABLE CHEST AP from 12/27/2023 FINDINGS: MEDIASTINUM: Normal. HEART: Normal. PULMONARY VASCULATURE: Normal. LUNGS: There are persistent predominantly basilar infiltrates. PLEURAL SPACE: No pleural effusion or pneumothorax. BONE:Within normal limits for the patient's age. OTHER FINDINGS:There has been interval placement of a right IJ catheter. The tip of the catheter is seen in the superior vena cava. IMPRESSION: 1. Stable pulmonary findings. 2. The tip of the right IJ catheter is in good position in the superior vena cava. DATA REPOSITORY: RADIATION DOSE DELIVERED:
--- NOTE | 2023-12-27 15:01 | W.ANESVAS ---
Central Venous Line Placement Date Performed: 12/27/23 Procedure Time: 14:50 Procedure Location: Intensive Care Unit Requesting Provider: Manuel Locke Standard Monitors Applied: ECG, Blood Pressure and SpO2 Pt. Position: Supine Timeout Performed: No Sedation Given (Indicate Dose Given): No Sedation given Patient Mental Status: Awake Sterility: Hand Hygiene, Surgical Cap, Surgical Mask, Sterile Gloves, Sterile Drape/Sheet, Sterile Gown and Chlorhexidine Laterality: Right Insertion Site: Internal Jugular (IJ) Central Line Type: Triple Lumen Catheter Insertion Procedure: 1% Lidocaine to skin and subcutaneous tissue with 25g needle, Vessel accessed with catheter over needle, catheter advanced, Guidewire placed with ease, Extension tubing fills with blood, then empties easily with gravity, Dermatotomy (skin john) made with scalpel, Dilator placed without resistance, Guidewire removed and Claves placed, blood withdrawn, ports flushed and clamped Dressing: Tegaderm Applied, BioPatch and Sutured in Place Catheter Depth at Skin (cm): 18 Placement Confirmation: Confirmation X-Ray Ordered Ultrasound: Sterile probe cover and gel used Ultrasound Image Saved?: No Number of Attempts (See previous attempts in note section): 1 Procedure Tolerated: No Complications Procedure Outcome: Successful Procedure Comment: Asked to assist in TLC placement that was in progress. Midline catheter placed under inplane US guidance. guidewire from kit would not advance through 18 ga midline. A 0.21 wire from the femoral art line kit was placed, midline catheter removed and the catheter from the kit placed. the 0.21 wire was removed, and the kit wire was placed without difficulty. Procedure was carried on in the usual fashion. pt tolerated procedure well. Performed By: Isaak Shelton
--- NOTE | 2023-12-27 15:34 | W.PM.DS.N ---
Date of service: 12/27/23 Time of Service: 15:34 DS: Diagnosis Discharge Diagnosis (1) Hypovolemic shock: Status: Acute (2) GI bleed: Status: Chronic (3) S/P primary angioplasty with coronary stent: Status: Acute (4) Coronary artery disease: Status: Chronic (5) Acute and chronic respiratory failure with hypercapnia: Status: Acute (6) HCAP (healthcare-associated pneumonia): Status: Suspected (7) New onset of congestive heart failure: Status: Acute (8) COPD, very severe: Status: Chronic (9) Obstructive sleep apnea: Status: Chronic (10) Anemia: Status: Chronic (11) Acute kidney injury: Status: Acute (12) Frequent falls: Status: Acute (13) Hyponatremia: Status: Acute Discharge Plan Disposition Patient Disposition: Transfer-Acute Inpatient Care Specific Acute Inpt Facility: [facility] Condition: Critical Discharge Details Reason For Visit: CHF Exacerbation,Acute on Chronic Respiratory Fail Admit Date/Time: 12/20/23 13:27 Admit Provider: Efren Barros Attending Provider: Efren Barros Primary Care Provider: Janina Calloway Hospital Course Hospital Course: 73-year-old female with a past medical history of type 2 diabetes mellitus, coronary artery disease status post recent LAD stent on 12/13/2023 performed at [facility] in [facility] also has NIKKI wears CPAP at home and has heart failure with preserved ejection fraction and has had recent workup for GI bleeding. She had upper and lower endoscopy performed in November 2023 [facility] with no source of bleeding found. Her recent stay at [facility] in December 2023 was complicated by further bleeding. Reportedly endoscopy was also performed there and found no source of bleed. Patient subsequently presented to [facility] twice first on 12/17 to 12/19/2023 with complaints of dizziness and weakness and dyspnea. Of note she is on home oxygen for COPD at 2 to 3 L/min and does wear CPAP at night for her NIKKI. Evaluation during that hospital stay showed that she was more anemic hemoglobin down to 7.5 g. She was admitted overnight transfused to hemoglobin 8.9 g. She was evaluated by physical therapy as she was on her baseline oxygen requirements and doing well enough to be discharged and we had seen no acute GI bleeding she was discharged home. However she was subsequently returned emergency department 12/20/2023 with increasing dyspnea recurrent falls at home and complains of dizziness. She was found to have BRITTNEY with elevated BUN of 43 creatinine 1.7 proBNP is elevated at 4232. Chest x-ray showed emphysema but no acute changes. She was admitted for hospitalization for CHF exacerbation and BRITTNEY. At that time her hemoglobin was 9.4 g which had been higher than the day before. She was given IV diuretics diuresed and converted over to oral diuretics. Echocardiogram was performed on 12/20/2023 see echo report for details. In summary this showed normal LV and RV size and function with no significant valvular pathology. However she was found to have grade 2 diastolic dysfunction elevated filling pressures. On 424 she was found to be more anemic hemoglobin was monitored daily and progressively decline from her admission of 9.4 g down to 8.4 g and finally 7.8 g and subsequently down to 6.9 g. At that point she was given another unit of packed red cells. On 12/25/2023. Subsequent hemoglobin came up to 8.1 g on . When I assumed her care on she had increased rales and was felt to be in congestive failure from recent transfusion and was given further IV diuretics including Lasix and Diuril. During the evening of she had a melanotic bowel movement. Subsequent hemoglobin was checked and found to be 8.7 g. Nevertheless she was transfused 1 units of packed red cells and subsequent hemoglobin next morning came up to 10.5 g. On the morning of 12/27/2023 patient developed hypotension was resuscitated with 1 L of LR and transferred to the intensive care unit subsequent hemoglobin was checked and found to be down to 8.6 g. She was subsequently resuscitated with 2 more units of packed red cells and [facility] was consulted for transfer for further evaluation of her GI bleeding. Hypotension was complicated by the fact that she had been getting couple doses of IV Lasix and Diuril the night before and received her valsartan in the morning prior to her hypotensive spell. During her hospital stay she was started on antibiotics presumptively for pneumonia. Her initial chest x-ray showed emphysema and some scarring lung bases but subsequently she spiked a fever 38.1 on 12/23/2023 but no other fever spikes throughout her hospital course and no leukocytosis on her CBC nevertheless blood cultures were obtained she was start empiric antibiotics including cefepime and vancomycin. Nasal MRSA swab was positive therefore vancomycin was continued. During the night of 12/26/2023 she developed some confusion and subsequently VBG done in the morning showed hypercapnia with a pCO2 of 79 although her pH was partially compensated at 7.36. This is probably because of a metabolic alkalosis from her diuretics. Patient is hypoxic and hypercarbic respiratory failure was treated with BiPAP and subsequent VBG showed improvement in her pCO2 down to 58 and pH improved to 7.47. [facility] was contacted for transfer as we do not have gastroenterology or interventional radiology to evaluate the patient source of GI bleed. After discussion with Dr. Fuentes he accepted the patient on behalf of his colleague Dr. Johnny Corcoran. Patient be sent by [facility]. Home Meds and New Rx's Prescriptions: No Action montelukast 10 mg tablet 10 mg PO DAILY insulin glargine [Lantus Solostar U-100 Insulin] 100 unit/mL (3 mL) insulin pen See Rx Instructions subcut BID Rx Instructions: 20 Units daily--pt instructed to increase by 2 units every 3 days if fasting BG consistently >150. Decrease 2 units if fasting BG consistently <90--[facility] Endo Note 06/12/23 nitroglycerin 0.4 mg tablet, sublingual 0.4 mg sublingual Q5M PRN (Reason: chest pain) Qty: 30 6RF Rx Instructions: do not exceed 3 doses per episode (DME) lancets [Sure Comfort Lancets] 28 gauge misc 1 ea Miscellaneous DAILY Qty: 100 3RF Rx Instructions: Dx: E11.9 to maintain HbA1C less than 7% Stiolto Respimat 2.5-2.5 mcg/actuation mist 2 puff inhalation DAILY Qty: 4 12RF citalopram 10 mg tablet 20 mg PO QHS Qty: 60 1RF Rx Instructions: Trial, 10mg daily x 1 week Oxygen EACH NS At Night Qty: 2 0RF Patient Comments: 2 L at night and CPAP- patient states she wore these 11/10/17 (DME) FreeStyle Basia 2 [place] Misc See Rx Instructions .ROUTE .MEDSUPPLY Qty: 1 0RF Rx Instructions: As directed Prolia 60 mg/mL syringe 60 mg subcut [id number] letrozole 2.5 mg tablet 2.5 mg PO DAILY Rx Instructions: 09/22/21 Hem/Onc prescribes. (DME) Blood Glucose Test Strip See Rx Instructions .ROUTE .MEDSUPPLY Qty: 250 1RF Rx Instructions: As directed to check blood glucose three times daily. On insulin. Dispense covered brand (Freestyle Lite) fiber supplements 1 tab PO DAILY magnesium oxide 400 mg (241.3 mg magnesium) tablet See Rx Instructions PO .COMPLEX Qty: 180 3RF Rx Instructions: 400 mg AM and PM as per María Mendoza cetirizine 10 mg tablet 10 mg PO DAILY Qty: 90 3RF sucralfate [Carafate] 1 gram tablet 1 g PO QACHS Qty: 60 0RF (DME) FreeStyle Basia 2 Sensor Kit See Rx Instructions .ROUTE .MEDSUPPLY Qty: 6 3RF Rx Instructions: As directed hydrochlorothiazide 25 mg tablet 25 mg PO DAILY AM Qty: 90 3RF valsartan 160 mg tablet 160 mg PO DAILY Qty: 90 3RF Trulicity 0.75 mg/0.5 mL pen injector 1.5 mg subcut QWEEK Rx Instructions: 0.75mg weekly for 4 weeks--[facility] Endo Note 06/12/23 increased 1.5mg weekly 07/17/23 [facility] Endo Note insulin lispro [Humalog KwikPen Insulin] 100 unit/mL insulin pen 12 unit subcut TID Hold Instructions: Resume on 12/26/23. As per PCP Patient Comments: 18 Units with meals--[facility] Endo Note 06/12/23 12 Units with meals--[facility] Endo Note 07/17/23 rosuvastatin 40 mg tablet See Rx Instructions .ROUTE .COMPLEX Qty: 90 3RF Hold Instructions: Home Medication placed on hold at Doctor's office Dose Instruction: TAKE ONE TABLET BY MOUTH EVERY DAY Rx Instructions: TAKE ONE TABLET BY MOUTH EVERY DAY (DME) pen needle, diabetic [BD Marina 2nd Gen Pen Needle] 32 gauge x 5/32 needle See Rx Instructions .ROUTE .COMPLEX Qty: 400 3RF Dose Instruction: USE FOUR TIMES A DAY Rx Instructions: USE FOUR TIMES A DAY albuterol sulfate 2.5 mg /3 mL (0.083 %) solution for nebulization 2.5 mg inhalation Q4H PRN (Reason: shortness of breath or wheezing) Qty: 75 0RF metoprolol succinate 50 mg tablet extended release 24 hr See Rx Instructions .ROUTE .COMPLEX Qty: 90 3RF Dose Instruction: TAKE ONE TABLET BY MOUTH EVERY DAY Rx Instructions: TAKE ONE TABLET BY MOUTH EVERY DAY pantoprazole 40 mg tablet,delayed release (DR/EC) See Rx Instructions .ROUTE .COMPLEX Qty: 60 3RF Dose Instruction: TAKE ONE TABLET BY MOUTH EVERY DAY Rx Instructions: TAKE ONE TABLET BY MOUTH EVERY DAY metformin 500 mg tablet See Rx Instructions .ROUTE .COMPLEX Qty: 180 3RF Hold Instructions: Changed by Provider Dose Instruction: TAKE ONE TABLET BY MOUTH TWICE A DAY Rx Instructions: TAKE ONE TABLET BY MOUTH TWICE A DAY albuterol sulfate 90 mcg/actuation HFA aerosol inhaler 2 puff inhalation Q6H PRN (Reason: shortness of breath or wheezing) Qty: 8.5 12RF clopidogrel 75 mg tablet 75 mg PO DAILY Jardiance 25 mg tablet 25 mg PO DAILY aspirin [Adult Aspirin Regimen] 81 mg tablet,delayed release (DR/EC) 81 mg PO DAILY Centrum Adults 12 mcg tablet,chewable 1 tab PO DAILY prochlorperazine maleate [Compazine] 5 mg tablet 5 mg PO BID PRNQty: 14 0RF famotidine 40 mg tablet 20 mg PO DAILY Qty: 60 0RF Discharge Instructions Instructions: Gastrointestinal Bleeding (DC) Stand Alone Forms: Nursing Discharge Form Referrals: Janina Calloway NP [Primary Care Provider] - 01/14/24 5:45 pm Activity:: bedrest Equipment/Supplies:: No Equipment Needed Diet:: NPO Discharge Orders Discharge Orders: Discharge Order (Routine); Ordered 12/27/23 Ordered By: Manuel Locke DS: Summary Time Spent with Patient providing and/or coordinating discharge services: Greater than 30 minutes Specific discharge activities: Interview/exam of patient, educating patient and/or family about need for transfer and alternative treatment options, coordination of transfer w/ receiving facility and discussion of case w/ accepting provider(s), completion of transfer orders and discharge summary Status at Discharge Functional status at discharge: bed bound Overall status at discharge: patient is not back to baseline Mental Status: mental status grossly normal Speech and Movement: speech and movement normal Mood: congruent mood Affect: normal affect Quality:SDOH Health Related Social Needs: No Data to Display Exam Narrative Exam Narrative: Nahed is sitting up in a chair talking with her family she is wearing her BiPAP. She seems to be alert but she is now oriented to place time or circumstance. Lungs with diffusely diminished breath sounds but with bibasilar rales no rhonchi or wheezing Heart is regular rate and rhythm Abdomen soft and nontender nondistended Extremities without peripheral edema Patient was re-examined after she had been put back to bed. She appears pale, but is alert, wearing her BIPAP. SPO2 94%, respirations unlabored Lungs: scattered rales, no wheezing or rhonchi Heart: regular, no murmur; review of telemetry: sinus rhythm in 60's, no ectopy Abdomen: soft, nontender, nondistended Extremities: no edema, no calf or thigh pain or tenderness, feet cool but not cyanotics Psych Mental Status: mental status grossly normal Speech and Movement: speech and movement normal Mood: congruent mood Affect: normal affect DS: Data Vitals/I&O Vitals and I&O: Vital Signs Temperature 36.5 C 12/27/23 11:11 Temperature Source Tympanic 12/27/23 11:11 Pulse 64 12/27/23 11:28 Pulse Rhythm Regular 12/27/23 08:40 Pulse 75 12/20/23 13:01 Respiratory Rate 20 12/27/23 11:28 Respiratory Effort Short of Breath, Labored, Incrsd Work of Breathing 12/27/23 08:40 Respiratory Depth Shallow 12/27/23 08:40 Respiratory Pattern Tachypnea 12/27/23 08:40 Blood Pressure 84/30 L 12/27/23 11:28 Blood Pressure Mean 73 12/20/23 13:01 Blood Pressure Position Sitting 12/20/23 10:56 Pulse Oximetry 93 12/27/23 13:07 Oxygen Delivery Method Nasal Cannula 12/27/23 13:07 Oxygen Flow Rate 3 12/27/23 13:07 Fraction of Inspired Oxygen (FIO2) 28 12/27/23 09:30 Pain Level 0 12/27/23 11:11 Comment Blood pressure taken following syncopal episode while patient getting up to commode; pt expressed urgency then went unresponsive. Patient lowered to ground by another RN. 12/26/23 22:50 Intake & Output 12/26/23 12/27/23 12/27/23 23:59 11:59 23:59 Intake Total 200 / 400 600 / 1350 750 / 1350 Output Total 350 / 1050 600 / 625 25 / 625 Balance -150 / -650 0 / 725 725 / 725 Weight 64.8 kg Intake: IV 200 / 400 350 / 600 250 / 600 Blood Product 250 / 750 500 / 750 Rbc Leuko Reduced Unit 250 / 500 250 / 500 [id number] Rbc Leuko Reduced Unit 250 / 250 [id number] Output: Urine 350 / 1050 600 / 625 25 / 625 Other: Urine Color Yellow Straw Yellow Urine Appearance Clear Cloudy Clear Urine Odor None Comment Patient incontinent large amount urine Patient incontinent large amount of urine; pure wick applied Voiding Methods Bedside Commode Incontinent Data Completed and Pending Labs on day of discharge: Labs from last 24 hours 12/27/23 12/27/23 12/27/23 18:00 11:53 10:40 WBC RBC Hgb Pending 8.6 L Hct Pending 27.6 L MCV MCH MCHC RDW Plt Count MPV Immature Gran % Neutrophils % Lymphocytes % Monocytes % Eosinophils % Basophils % Nucleated RBC % Absolute Neutrophils Absolute Lymphocytes Absolute Monocytes Absolute Eosinophils Absolute Basophils VBG pH 7.47 H VBG pCO2 58 H VBG pO2 56 VBG HCO3 42 H VBG Total CO2 39 H VBG O2 Saturation 91 VBG Base Excess 18 H VBG Lactate Sodium Potassium Chloride Carbon Dioxide Anion Gap BUN Creatinine Est GFR (CKD-EPI 2020) Glucose Calcium Magnesium Total Bilirubin Conjugated Bilirubin AST ALT Alkaline Phosphatase Ammonia Troponin I C-Reactive Protein NT-Pro-B Natriuret Pep Total Protein Albumin Add-On Test Request Patient ABO/Rh Antibody Screen Crossmatch 12/27/23 12/27/23 12/26/23 09:34 08:40 23:30 WBC 6.19 6.57 RBC 3.54 L 3.05 L Hgb 10.5 L 8.7 L Hct 33.8 L 28.6 L MCV 96 H 94 MCH 29.7 28.5 MCHC 31.1 L 30.4 L RDW 16.1 H 16.8 H Plt Count 262 259 MPV 9.3 9.0 Immature Gran % 4.5 Neutrophils % 61.1 Lymphocytes % 7.1 Monocytes % 23.4 Eosinophils % 3.4 Basophils % 0.5 Nucleated RBC % 0.0 Absolute Neutrophils 3.78 Absolute Lymphocytes 0.44 L Absolute Monocytes 1.45 H Absolute Eosinophils 0.21 Absolute Basophils 0.03 VBG pH 7.36 VBG pCO2 79 H* VBG pO2 32 VBG HCO3 45 H VBG Total CO2 42 H VBG O2 Saturation 59 VBG Base Excess 19 H VBG Lactate 0.9 Sodium 138 133 L Potassium 3.8 D 2.7 L* Chloride 94 L 87 L Carbon Dioxide 42.7 H 40.2 H Anion Gap 1.3 L 5.8 BUN 38 H 36 H Creatinine 1.5 H 1.5 H Est GFR (CKD-EPI 2020) 36.34 36.34 Glucose 205 H 241 H Calcium 9.9 9.8 Magnesium 2.4 Total Bilirubin 0.4 Conjugated Bilirubin 0.1 AST 20 ALT 26 Alkaline Phosphatase 62 Ammonia < 10 L Troponin I C-Reactive Protein 7.08 H NT-Pro-B Natriuret Pep 1751 H Total Protein 8.1 Albumin 2.5 L Add-On Test Request DONE Patient ABO/Rh Antibody Screen Crossmatch 12/26/23 12/25/23 21:30 11:35 WBC 6.68 RBC 3.02 L Hgb 8.8 L Hct 28.1 L MCV 93 MCH 29.1 MCHC 31.3 L RDW 16.8 H Plt Count 272 MPV 8.9 Immature Gran % Neutrophils % Lymphocytes % Monocytes % Eosinophils % Basophils % Nucleated RBC % Absolute Neutrophils Absolute Lymphocytes Absolute Monocytes Absolute Eosinophils Absolute Basophils VBG pH 7.50 H VBG pCO2 58 H VBG pO2 70 VBG HCO3 45 H VBG Total CO2 42 H VBG O2 Saturation 96 VBG Base Excess 22 H VBG Lactate 2.2 H* Sodium 135 L Potassium 3.2 L Chloride 88 L Carbon Dioxide 42.4 H Anion Gap 4.6 BUN 36 H Creatinine 1.6 H Est GFR (CKD-EPI 2020) 33.63 Glucose 257 H Calcium 9.9 Magnesium 1.8 Total Bilirubin 0.4 Conjugated Bilirubin AST 22 ALT 34 Alkaline Phosphatase 61 Ammonia Troponin I < 50 C-Reactive Protein NT-Pro-B Natriuret Pep Total Protein 8.1 Albumin 2.5 L Add-On Test Request Patient ABO/Rh A Positive Antibody Screen NEGATIVE Crossmatch See Detail Preliminary micro results at discharge 12/23/23 22:54 Blood Culture - Preliminary Blood NO GROWTH 72 HOURS 12/23/23 22:25 Blood Culture - Preliminary Blood NO GROWTH 72 HOURS PFSH All Active Problems S/P primary angioplasty with coronary stent (Acute) Coronary artery disease (Chronic) Hypovolemic shock (Acute) Acute and chronic respiratory failure with hypercapnia (Acute) Advanced care planning/counseling discussion (Acute) Palliative care patient (Acute) Hyponatremia (Acute) Frequent falls (Acute) Discharge planning issues (Acute) On deep vein thrombosis (DVT) prophylaxis (Acute) Chronic disease under co-management (Acute) Acute kidney injury (Acute) New onset of congestive heart failure (Acute) Acute on chronic hypoxic respiratory failure (Acute) Pneumonia (Acute) Anxiety (Chronic) Adhesive capsulitis of left shoulder (Acute) Sepsis (Acute) Pneumonia (Acute ~09/2023) Acute hypoxemic respiratory failure (Acute) Kaylee rash of groin (Acute) Arteriovenous malformation (Acute ~06/2023) 06/27/23 Gastro Former smoker (Acute) Asymptomatic menopausal state (Acute) [facility] Endo Note 06/12/23 Type 2 diabetes mellitus with hyperglycemia, with long-term current use of insulin (Acute) [facility] Endo Note 06/12/23 Ductal carcinoma in situ (DCIS) of left breast (Acute) [facility] Hem/Onc note 06/05/23 Iron deficiency anemia secondary to blood loss (chronic) (Acute) 05/01/23 Hem/Onc GI bleed (Chronic) Demand ischemia (Acute) Chronic respiratory failure with hypoxia (Acute) Anemia (Chronic) Esophagitis determined by endoscopy (Acute ~12/2022) Compression fracture of L3 vertebra (Acute ~2021) Mucous cyst of digit of left hand (Acute ~12/2022) s/p excision of mucous cyst DOS: 01/08/23 Trigger finger, left middle finger (Acute) 40 mg Depo-Medrol injection: 11/12/2022 s/p trigger release DOS: 01/08/23 History of breast cancer (Acute) Dermatitis, seborrheic (Acute) 07/06/22 Dr Moreno Anemia, macrocytic (Acute) 05/03/22 Hem/Onc Note Essential hypertension (Acute 05/16/04) Microalbuminuria due to type 2 diabetes mellitus (Acute) Hyperlipidemia (Acute 03/18/07) Type 2 diabetes mellitus, with long-term current use of insulin (Acute ~1999) Renal artery stenosis, [place], bilateral (Chronic) [facility] Vascular Surgery; most recent OV 06/01/21 Atherosclerosis of both carotid arteries (Chronic 11/12/16) [facility] Vascular Surgery; most recent OV 06/01/21; Recommend annual carotid US COPD, very severe (Chronic) [facility] Pulm O2 dependent ASCVD (arteriosclerotic cardiovascular disease) (Chronic) [facility] 06/01/21 Vascular note: Asymptomatic bilateral carotid artery stenosis Non-ST elevation (NSTEMI) myocardial infarction (Acute ~12/2020) S/p proximal LCX stent placement 01/27/21 [facility] CKD (chronic kidney disease) (Chronic) Obstructive sleep apnea (Chronic 03/02/14) Bipap w/ 2L 02 09/06/2019 Medical History Non-ST elevation (NSTEMI) myocardial infarction Acute upper GI bleed Esophageal thrush Allergic contact dermatitis due to other agents Malignant neoplasm of unspecified site of left female breast (~10/2021) 11/06/21 Dr Mcgill ([facility] Rad/Onc Office); Radiation Therapy planned 12/21/21-hormone receptor positive Gross hematuria Vulvar irritation Breast cancer in female (~05/2021) R 2002, L 2003 s/p B/L partial mastectomy, XRT, & tamoxifen. 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) Estrogen receptor positive s/p RXT, surgical removal of tumor Enteritis Back pain Post-menopausal bleeding Pelvic pain Pericarditis (~12/2020) S/p [place] Vaginitis and vulvovaginitis, unspecified Tobacco use disorder 30-50 PY, QUIT 1999 Compression fracture of lumbar vertebra (03/14/17) Depression (11/30/02) s/p of brother (on SSRI for short time) Solitary pulmonary nodule (12/22/15) Incidental finding of 6 mm pulm nodule RLL on 11/07/[address] with 6 month f/u chest CT recommended; 04/2016 6-month f/u chest CT: resolution of nodule Pneumonia Spinal stenosis (02/04/14) Multi level on MRI Reflux esophagitis (07/16/12) LA GRADE B , EGD W/ BX 05/04/15 Osteopenia (02/14/16) DEXA 02/14/16: Fem neck t-score -1.2 --> WHO FRAX major osteoporotic 13% & hip fx 1.3% risk --> does not qualify for bisphosphonates --> Ca & vit D 03/2017 L3 compression fx --> re-calc WHO FRAX major osteoporotic 21% & hip fx 2.3% risk --> now qualifies for bisphosphonate tx, started 03/2017 Probable allergic rxn to Alendronate (1st pill Wed, Hives Th and stayed thru today (but no worsening), 07/05. Agree to STOP for now. Leg cramps (04/01/14) Low Mg+ --> supplementation helped, but caused diarrhea; handout on dietary Mg+ given Iron deficiency anemia (01/02/17) S/p colo & EGD 05/2015, then capsule endoscopy & push enteroscopy with no definitive etiology identified; 11/14/2017: repeat colonoscopy (due to return of anemia) showing a colonic angioectasia, which may have been source of bleeding & anemia (no overt bleeding found). Fe supplementation & monitor 10/29/22 Seen by [facility] Hem/Onc Intraabdominal calcification (11/14/15) Incidental finding on CT 2 mm between bladder and uterus, no further eval required, AOC Hypomagnesemia (03/04/17) Hiatal hernia (02/11/14) Smaller portions Endoscopy 10/04 anemia (nothing found), [facility] Heart murmur 07/11/2016 echo: mild-moderate mitral regurgitation DJD (degenerative joint disease) (02/04/14) Lumbar spine--multiple level on MRI Surgery 10/2011, [facility] Dr. 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/21/16 [facility] Vascular Surgery consult: moderate stenosis, not source of clinical pathology, & no intervention or further evaluation indicated Anemia (02/11/14) Suspect chronic dz/bone marrow suppression s/p breast CA tx (radiation); s/p GI workup (possible AVMs?), NL B12/folate, elevated Epo, NL retic count; chronic iron supplementation Allergic rhinitis Superior mesenteric artery stenosis Chronic GI bleeding Headache Surgical History History of heart artery stent LAD Stent 12/13/2023 at [facility] in [facility] H/O colonoscopy (~11/02/22) 11/02/22 , 1 cecal polyp removed - f/u 10 years 11/12/23-[facility] H/O endoscopy (~06/21/22) 11/02/22 Upper GI endoscopy 11/12/23-[facility]-3 non-bleeding angioectasias-biopsies taken H/O partial mastectomy (~10/26/21) Left breast S/P breast biopsy, left (05/09/21) u/s guided Core Bx History of hysterectomy, supracervical Status post coronary artery stent placement (~01/27/21) H/O laminectomy (~10/06/12) L5S1 Dr. Jarrod Ballard H/O laminectomy L5S1 Tooth Extractions Multiple Oophrectomy, Right (~2007) For unknown reason Extraction of cataract left eye surgical removal with intraocular lens implant. Dr Agee Breast, Lumpectomy (~2003) B/L for breast CA Biopsy, Lymph Node (~2003) (L) axilla for breast CA Family History Sister Breast cancer Mother , 89 Alzheimer's dementia Breast cancer Father , AGE 75 Alcohol abuse Cirrhosis Sister Neoplasm uterine CA Sister Heart disease Brother Heart disease Niece Breast cancer Social History Smoking/Tobacco Use Status: Former Tobacco Use tobacco type: cigarettes Quit Date: 09/02/95 Tobacco: How many years used: 25 Smoking risk assessment performed?: Yes Alcohol Intake: former Details: none Drug use: Never Substance use type: does not use Adopted: No Caregiver/Support person: No Foster care: No Household members: spouse Housing: house Number of Children: 4 Communication Needs: None Pets and animals: No Current gender identity: female What type of physical activity do you participate in: regular exercise Duration: < 15 minutes/day Frequency: 3-4 times per week Mell/Yazidism: Adventism Seatbelt use: always Drive intox or ride w/intox patient transportation driver: No Working smoke detector in home: Yes Fire extinguisher in home: Yes Carbon monox detector in home: Yes Do you feel safe at home: Yes Do you feel safe in your relationship?: Yes History History Para Hx # Term Pregnancies Multiple births Hx # Pregnancies Ectopic pregnancies AB induced Hx Number of Living Children 4 AB spontaneous Time Spent with Patient Time Spent with Patient: <45 minutes Time was spent: preparing to see the patient(eg.review tests), ordering medications,tests, procedures, referring, communicating with other health home care consultant, indepentently interpreting results, counseling the patient and care coordination
[2023-12-27] MEDS: TRANEXAMIC ACID/SOD. CHL. 1,000 MG/100 ML BAG 600 MG IVPB (16:37)
[2023-12-27 16:54] LABS: HCT 38.1 % (36.0-46.0); HGB 12.2 g/dL (11.2-15.7)
[2023-12-27 17:07] LABS: INR 1.1 (0.9-1.1); PTT Activated 28.5 sec (23.6-32.8); Prothrombin Time 11.1 sec (9.1-11.1)
[2023-12-27] MEDS: Pantoprazole 40 MG VIAL 80 MG IVP (18:00)
== END 2023-12-27 18:00 | disposition short-term general hospital (02) | DRG 280 ==
LOC: ER 13:26 → MS 13:58 → ICU 12-27 11:46
PROVIDERS: Family Medicine; Internal Medicine; Nurse Practitioner Acute Care; Admitting Provider Family Medicine; Emergency Provider Physician Assistant; PCP Nurse Practitioner; Visit Provider Family Medicine
DX: I11.0 Hypertensive heart disease with heart failure (principal); I50.31 Acute diastolic (congestive) heart failure; I21.4 Non-ST elevation (NSTEMI) myocardial infarction; J18.9 Pneumonia, unspecified organism; J96.21 Acute and chronic respiratory failure with hypoxia; J96.22 Acute and chronic respiratory failure with hypercapnia; K55.21 Angiodysplasia of colon with hemorrhage; R57.8 Other shock; N17.9 Acute kidney failure, unspecified; E87.1 Hypo-osmolality and hyponatremia; J44.0 Chronic obstructive pulmonary disease with (acute) lower respiratory infection; R29.6 Repeated falls; Z79.899 Other long term (current) drug therapy; D50.0 Iron deficiency anemia secondary to blood loss (chronic); I25.10 Atherosclerotic heart disease of native coronary artery without angina pectoris; Z95.5 Presence of coronary angioplasty implant and graft; G47.33 Obstructive sleep apnea (adult) (pediatric); E11.9 Type 2 diabetes mellitus without complications; Z99.81 Dependence on supplemental oxygen; Z87.891 Personal history of nicotine dependence; F41.9 Anxiety disorder, unspecified; Z85.3 Personal history of malignant neoplasm of breast; E78.5 Hyperlipidemia, unspecified; J44.9 Chronic obstructive pulmonary disease, unspecified; Z79.4 Long term (current) use of insulin; Z79.84 Long term (current) use of oral hypoglycemic drugs; Y95 Nosocomial condition; Z22.322 Carrier or suspected carrier of Methicillin resistant Staphylococcus aureus
CPT/HCPCS: 36573; 00123; 36415; 36430; 36556; 71045; 80048; 80053; 80076; 82805; 84145; 85027; 86850; 86900; 86901; 86920; 87040; 87641; 93005; 93308; 94640; 96374; 97110; 97162; 97530; 99285; 70450; 71046; 80202; 81003; 82140; 82565; 83605; 83735; 83880; 84484; 85014; 85018; 85025; 85610; 85730; 86140; 93010; 93306; 94660; 94664; 94667; 94668; 94760; 99223; 99232; 99233; 99238; 99291; 99292; J0692; J0696; J1205; J1756; J1815; J1940; J2003; J2470; J3372; J3480; J7613; P9016